=== PATIENT | female | born 1990 | race Two or more races ===

== ENCOUNTER 2023-04-17 20:00 | Emergency (ER) | payer MEDICAID, SELFPAY ==
[2023-04-17 20:04] VITALS: BP 164/98; PULSE 98; RESP 18; TEMP 37; O2SAT 97; BMI 34.8
--- NOTE | 2023-04-17 20:11 | PC.NURSE ---
pt presents to ED because patient states today she started having sinus pressure, headache, and n/v. pt states she threw up 3x today. pt states she also feels like she can't taste or smell anything. pt did take at home covid test today and it was negative.
--- NOTE | 2023-04-17 20:17 | ED.GENADUL1 ---
HPI - General Adult General Chief complaint: Nausea/Vomiting/Diarrhea Stated complaint: HEADACHE, NAUSEA/VOMITING, [id number] TRAVEL Time Seen by Provider: 04/17/23 20:04 Source: patient Mode of arrival: walk-in Limitations: no limitations History of Present Illness HPI narrative: patient is a 32-year-old female presents the emergency department for a three day history of sinus pressure, nasal congestion. She states she has had yellow drainage from the nose. [place] the [place] and was concerned that she may have Covid or the flu. She took a home Covid test that was negative. She has had no objective fevers. She reports three episodes of vomiting today, no diarrhea. She has had no other ear pain, sore throat, she is not concerned for . She has been using [id number]-apoyido ibuprofen without improvement. Related Data Previous Rx's Medication Instructions Recorded vgfxrdruojvetal-knnmnrtjaqjmocf-CW 10 ml PO Q6H PRN cold symptoms 04/17/23 2 mg-30 mg-10 mg/5 mL oral syrup #200 mL (Bromfed DM) methylprednisolone 4 mg tablets in See Rx Instructions .Route 04/17/23 a dose pack (Medrol (Anders)) .COMPLEX #21 ea ondansetron 4 mg disintegrating 4 mg PO Q6H PRN nausea and 04/17/23 tablet vomiting #12 tabs Allergies Allergy/AdvReac Type Severity Reaction Status Date / Time No Known Drug Allergies Allergy Verified 04/17/23 20:07 Review of Systems ROS Constitutional Denies: fever or chills Ears, nose, mouth, and throat Reports: nasal congestion; Denies: throat pain Cardiovascular Denies: chest pain Respiratory Reports: cough; Denies: shortness of breath Gastrointestinal Denies: nausea or vomiting Musculoskeletal Denies: back pain Integumentary/Breast Denies: rash PFSH PFSH Social History Smoking status: Never smoker Exam Narrative Exam Narrative: Gen.: Awake, alert, in no distress Head: Normocephalic, atraumatic ENT: Moist mucous membranes, bilateral tympanic membranes clear, no pharyngeal erythema Respiratory: No respiratory distress, lungs clear bilaterally Cardio: Regular rate and rhythm Extremities: Moves extremities equally Psych: Normal mood and affect Neuro: No focal neuro deficit Skin: Warm, dry, intact Constitutional Vital Signs, click to edit/add: Last Vital Signs Temp 99 F 04/17/23 21:30 Pulse 77 04/17/23 21:30 Resp 18 04/17/23 21:30 BP 148/88 H 04/17/23 21:30 Pulse Ox 94 L 04/17/23 21:30 O2 Del Method Room Air 04/17/23 21:30 Course Vital Signs Vital signs: Vital Signs Temperature 98.6 F 04/17/23 20:04 Pulse Rate 98 H 04/17/23 20:04 Respiratory Rate 18 04/17/23 20:04 Blood Pressure 164/98 H 04/17/23 20:04 Pulse Oximetry 97 04/17/23 20:04 Oxygen Delivery Method Room Air 04/17/23 20:04 Temperature 99 F 04/17/23 21:30 Pulse Rate 77 04/17/23 21:30 Respiratory Rate 18 04/17/23 21:30 Blood Pressure 148/88 H 04/17/23 21:30 Pulse Oximetry 94 L 04/17/23 21:30 Oxygen Delivery Method Room Air 04/17/23 21:30 Medical Decision Making MDM Narrative Medical decision making narrative: patient is negative for Covid and influenza. She'll be treated for sinus symptoms with Medrol Dosepak, Bromfed-DM, Zofran. Follow-up with PCP and return to the Emergency Room if symptoms change or worsen. Medical Records Medical records reviewed: Yes I reviewed the patient's medical records Lab Data Lab results reviewed: Yes I reviewed the patient's lab results Labs: Lab Results 04/17/23 Range/Units 20:34 SARS-CoV-2 (PCR) Negative (NEGATIVE) Influenza Type A Ag Negative Influenza Type B Ag Negative Discharge Plan Discharge Chief Complaint: Nausea/Vomiting/Diarrhea Clinical Impression: Sinus pain, Nausea & vomiting Patient Disposition: Home, Self-Care Time of Disposition Decision: 21:06 Condition: Good Prescriptions / Home Meds: New methylprednisolone [Medrol (Anders)] 4 mg tablets,dose pack See Rx Instructions .ROUTE .COMPLEX Qty: 21 0RF Rx Instructions: Taper as directed zxrvzdyqhbqllcj-bswpljpmc-QV [Bromfed DM] 2-30-10 mg/5 mL syrup 10 ml PO Q6H PRN (Reason: cold symptoms) Qty: 200 0RF ondansetron 4 mg tablet,disintegrating 4 mg PO Q6H PRN (Reason: nausea and vomiting) Qty: 12 0RF Instructions: Acute Nausea and Vomiting (ED), Cold Symptoms (ED) Stand Alone Forms: Portal Instructions Referrals: [facility] [Primary Care Provider] - 1 week Discharge Date/Time: 04/17/23 21:34
[2023-04-17] MEDS: ONDANSETRON PF 4 MG/2 ML VIAL IV (20:44)
[2023-04-17] MEDS: DEXAMETHASONE SOD PHOS 10 MG/ML VIAL IV (20:44)
[2023-04-17] MEDS: KETOROLAC TROMETHAMINE 30 MG/ML VIAL IVP (20:45)
[2023-04-17 20:56] LABS: Influenza Virus A Antigen Negative; Influenza Virus B Antigen Negative; Internal Control Within Normal Limits; SARS-CoV-2 Ag NEGATIVE (NEGATIVE)
[2023-04-17 21:17] VITALS: BP 148/88; PULSE 77; O2SAT 95
[2023-04-17] MEDS: BUTALB/ACETAMINOPHEN/CAFFEINE 50-325-40MG TABLET 1 TAB PO (21:19)
[2023-04-17 21:30] VITALS: BP 148/88; PULSE 77; RESP 18; TEMP 37.2; O2SAT 94
[2023-04-18 15:51] LABS: SARS-CoV-2 NAA NOT DETECTED (NOT DETECTE)
== END 2023-04-17 21:34 | disposition home or self-care (01) ==
PROVIDERS: Physician Assistant; Emergency Provider Internal Medicine
DX: R11.2 Nausea with vomiting, unspecified (principal); J34.89 Other specified disorders of nose and nasal sinuses; Z20.822 Contact with and (suspected) exposure to COVID-19
CPT/HCPCS: 87635; 87804; 87811; 96374; 96375; 99284; J1100

== ENCOUNTER 2023-11-07 09:18 | Outpatient (OUT) | payer MEDICAID, SELFPAY ==
[2023-11-07 12:02] LABS: HCG Quantitative 3223 mIU/mL
== END 2023-11-07 09:19 | disposition home or self-care (01) ==
PROVIDERS: Visit Provider Obstetrics & Gynecology
DX: N92.6 Irregular menstruation, unspecified (principal)
CPT/HCPCS: 36415; 84702

== ENCOUNTER 2023-12-14 08:58 | Outpatient (OUT) | payer MEDICAID, OTHER, SELFPAY ==
--- NOTE | 2023-12-14 09:00 | US_ITS ---
The [address] [address] Patient Name: PRISCILLA BLAND MRN: [id number] date: 1990 Sex: F Assigned Patient Location: [facility] Current Patient Location: [facility] Accession/Order Number: [id number] Exam Date: 12/14/2023 09:01 Report Date: 12/14/2023 09:53 At the request of: HECTOR KWAN Procedure: US OB transvaginal EXAMINATION: US OB transvaginal HISTORY: MISSED MENSES COMPARISON: No relevant comparison available. FINDINGS: Area of anechoic echogenicity identified within the endometrial cavity measuring 3.1 x 1.3 x 2.7 cm with a mean sac diameter of 2.36 with a mean sac diameter of 2.4 cm, 7 weeks 0 days No pole or yolk sac is observed. Cervix: Closed, 4.5 cm The uterus is normal in size, contour and echotexture. The ovaries are normal. US/US OB transvaginal IMPRESSION: Anechoic echogenicity in the endometrial cavity consistent with a gestational sac. No pole or yolk sac. An embryonic favored, since the mean sac diameter is below 25 mm follow-up in 2 weeks is recommended Electronically authenticated by: NADIA DOOLEY Date: 12/14/2023 09:53
--- OUTSIDE RECORDS SUMMARY | 2023-12-14 09:06 | XMS_ITS | CCD ---
Author Organization [facility] CliniSywi Care Team Providers Care Clinical Research Management Associate Name Role Phone RENAY OTOOLE Attending Unavailable SYDNIE, RENAY Admitting Unavailable SYDNIE, RENAY Consulting Unavailable MISC, DR GILBERT Primary Care Unavailable AQUILES, DR YOUNG Admitting Unavailable AQUILES, DR YOUNG Consulting Unavailable REQUEST, NONE LISTED Primary Care Unavaila ble AQUILES, DR YOUNG Attending Unavailable AQUILES, DR YOUNG Procedure Practitioner Unavailab le RENAY OTOOLE Admitting Unavailable RENAY OTOOLE Consulting Unavailable RENAY OTOOLE Attending Unavailable MISC, DR GILBERT Primary Care Unavailable AQUILES, DR YOUNG Admitting Unavailable AQUILES, DR YOUNG Consulting Unavailable REQUEST, DR NONE LISTED Primary Care Unavaila ble AQUILES, DR YOUNG Attending Unavailable WEST, DR NADIA Harrison Consulting Unavailable AQUILES, DR YOUNG Admitting Unavailable REQUEST, NONE LISTED Primary Care Unavaila ble AQUILES, DR YOUNG Attending Unavailable AQUILES, DR YOUNG Consulting Unavailable WEST, DR NADIA Harrison Consulting Unavailable AQUILES, DR YOUNG Admitting Unavailable REQUEST, NONE LISTED Primary Care Unavaila ble AQUILES, DR YOUNG Attending Unavailable AQUILES, DR YOUNG Consulting Unavailable AQUILES, DR YOUNG Admitting Unavailable AQUILES, DR YOUNG Attending Unavailable REQUEST, NONE LISTED Primary Care Unavaila ble RENAY OTOOLE Admitting Unavailable RENAY OTOOLE Attending Unavailable REQUEST, NONE LISTED Primary Care Unavaila ble RENAY OTOOLE Consulting Unavailable AQUILES, DR YOUNG Admitting Unavailable REQUEST, NONE LISTED Primary Care Unavaila ble AQUILES, DR YOUNG Attending Unavailable AQUILES, DR YOUNG Consulting Unavailable RENAY OTOOLE Attending Unavailable RENAY OTOOLE Admitting Unavailable RENAY OTOOLE Consulting Unavailable REQUEST, NONE LISTED Primary Care Unavaila RENAY Baker Attending Unavailable RENAY OTOOLE Admitting Unavailable RENAY OTOOLE Consulting Unavailable REQUEST, NONE LISTED Primary Care Unavaila ble AQUILES, DR YOUNG Attending Unavailable AQUILES, DR YUONG Admitting Unavailable AQUILES, DR YOUNG Consulting Unavailable REQUEST, DR NONE LISTED Primary Care Unavaila ble SYDNIE, RENAY Attending Unavailable SYDNIE, RENAY Admitting Unavailable SYDNIE, RENAY Consulting Unavailable MISC, DR GILBERT Primary Care Unavailable SYDNIE, RENAY Attending Unavailable SYDNIE, RENAY Admitting Unavailable MISC, DR GILBERT Primary Care Unavailable SYDNIE, RENAY Consulting Unavailable SYDNIE, RENAY Attending Unavailable SYDNIE, RENAY Admitting Unavailable REQUEST, DR NONE LISTED Primary Care Unavaila ble MIAH, DR NADIA Harrison Consulting Unavailable SYDNIE, RENAY Consulting Unavailable SYDNIE, RENAY Attending Unavailable SYDNIE, RENAY Admitting Unavailable KRZYSZTOF, DR ANGELO Vaz Consulting Unavailable REQUEST, DR NONE LISTED Primary Care Unavaila ble SYDNIE, RENAY Consulting Unavailable KELLY, NAT Attending Unavailable KELLY, NAT Admitting Unavailable REQUEST, DR NONE LISTED Primary Care Unavaila ble KELLY, NAT Consulting Unavailable SYDNIE, RENAY Admitting Unavailable SYDNIE, RENAY Consulting Unavailable SYDNIE, RENAY Attending Unavailable MISC, DR GILBERT Primary Care Unavailable SYDNIE, RENAY Admitting Unavailable SYDNIE, RENAY Consulting Unavailable SYDNIE, RENAY Attending Unavailable MISC, DR GILBERT Primary Care Unavailable AQUILES, DR YOUNG Admitting Unavailable WEST, DR NADIA Harrison Consulting Unavailable REQUEST, DR NONE LISTED Primary Care Unavaila ble AQUILES, DR YOUNG Attending Unavailable AQUILES, DR YOUNG Consulting Unavailable Renita Canseco Unavailable Kym Masterson Attending Unavailable Kym Masterson Admitting Unavailable HECTOR KWAN Attending Unavailable Problems Active Problems Problem Classification Problem Date Documented Date Episodic/Chronic Cancer of cervix (1 source) Low grade squamous intraepithelial lesion on cytologic smear of cervix (LGSIL); Translations: [LGSIL ON CYTOLOGIC SMEAR OF CERVIX] Onset: 11-11-2021 Episodic Menstrual disorders (5 sources) Secondary amenorrhea; Translations: [SECONDARY AMENORRHEA] Onset: 01-28-2021 Chronic Other complications of ; puerperium affecting management of mother (3 sources) Obesity complicating childbirth; Translations: [OBESITY COMPLICATING CHILDBIRTH] Onset: 07-30-2021 Chronic Other complications of (4 sources) Anemia complicating , unspecified trimester; Translations: [ANEMIA COMP UNS TRIMESTER] Onset: 06-08-2021 Chronic Other nutritional; endocrine; and metabolic disorders (1 source) Obesity, unspecified; Translations: [OBESITY UNSPECIFIED] Onset: 08-08-2021 Chronic Other screening for suspected conditions (not mental disorders or infectious disease) (8 sources) Encounter for screening for malignant neoplasm of cervix; Translations: [Encounter for screening, unspecified] Onset: 04-07-2021 Episodic Residual codes; unclassified (1 source) High risk heterosexual behavior; Translations: [High risk heterosexual behavior] Onset: 03-01-2022 Episodic Unclassified (1 source) CONTACT W/AND (SUSP) EXPOS COVID-19; Translations: [CONTACT W/AND (SUSP) EXPOS COVID-19] Onset: 08-08-2021 Past or Other Problems Problem Classification Problem Date Documented Date Episodic/Chronic Deficiency and other anemia (1 source) Anemia, unspecified; Translations: [ANEMIA UNSPECIFIED] Onset: 06-13-2021 Episodic Diabetes mellitus without complication (4 sources) Other abnormal glucose; Translations: [OTHER ABNORMAL GLUCOSE] Onset: 04-30-2021 Episodic Immunizations and screening for infectious disease (1 source) Contact with and (suspected) exposure to other viral communicable diseases Onset: 07-09-2021 Resolved: 07-09-2021 Episodic OB-related trauma to perineum and vulva (1 source) Other specified trauma to perineum and vulva; Translations: [OTHER SPEC TRAUMA PERINEUM AND VULVA] Onset: 08-08-2021 Episodic Other complications of (1 source) Maternal care for other known or suspected poor growth, third trimester, not applicable or unspecified; Translations: [MAT CARE OTH TX FTL GRTH 3RD TM UNS] Onset: 08-08-2021 Episodic Other complications of (4 sources) Decreased movements, third trimester, not applicable or unspecified; Translations: [DECR MOVEMENTS 3RD TRI NA/UNS] Onset: 07-13-2021 Episodic Other complications of (4 sources) Supervision of other high risk pregnancies, third trimester; Translations: [SUP OTH HIGH RISK 3RD TRI] Onset: 07-11-2021 Episodic Other complications of (4 sources) Other specified related conditions, unspecified trimester; Translations: [OTH SPEC PREG RELATED COND UNS TRI] Onset: 04-20-2021 Episodic Other complications of (4 sources) Supervision of other high risk pregnancies, unspecified trimester; Translations: [SUP OTH HIGH RISK UNS TRI] Onset: 01-26-2021 Episodic Other female genital disorders (1 source) Other specified noninflammatory disorders of vagina; Translations: [OTH SPEC NONINFLAMMATORY D/O VAGINA] Onset: 04-23-2021 Episodic Other and delivery including normal (15 sources) Encounter for routine follow-up; Translations: [Single live ] Onset: 01-28-2021 Episodic Other upper respiratory infections (2 sources) Acute upper respiratory infection, unspecified; Translations: [Acute pharyngitis, unspecified] Onset: 07-09-2021 Resolved: 07-09-2021 Episodic Residual codes; unclassified (1 source) 39 weeks gestation of ; Translations: [39 WEEKS GESTATION OF ] Onset: 08-08-2021 Episodic Residual codes; unclassified (1 source) 36 weeks gestation of ; Translations: [36 WEEKS GESTATION OF ] Onset: 08-02-2021 Episodic Residual codes; unclassified (1 source) 34 weeks gestation of ; Translations: [34 WEEKS GESTATION OF ] Onset: 07-13-2021 Episodic Residual codes; unclassified (1 source) 35 weeks gestation of ; Translations: [35 WEEKS GESTATION OF ] Onset: 08-09-2021 Episodic Residual codes; unclassified (1 source) 33 weeks gestation of ; Translations: [33 WEEKS GESTATION OF ] Onset: 06-28-2021 Episodic Residual codes; unclassified (1 source) Weeks of gestation of not specified; Translations: [WEEKS GESTATION NOT SPEC] Onset: 05-25-2021 Episodic Residual codes; unclassified (1 source) 24 weeks gestation of ; Translations: [24 WEEKS GESTATION OF ] Onset: 05-05-2021 Episodic Residual codes; unclassified (4 sources) 16 weeks gestation of ; Translations: [16 WEEKS GESTATION OF ] Onset: 03-21-2021 Episodic Results Test Name Value Interpretation Reference Range Facility Chlamydia/GC/Trich NAAon Chlamydia Trachomotis, CARLITOS Negative Normal Negative [facility] Comment on above: Performed By: #### C UU #### [address] #### GCCHLAMTRI #### [facility] , Neisseria Gonorrhoeae, CARLITOS Negative Normal Negative [facility] Comment on above: Performed By: #### C UU #### [facility] [address] [place] [address] #### GCCHLAMTRI #### [facility] , Trichomonas CARLITOS Negative Normal Negative [facility] Comment on above: Result Comment: Perf ormed at: =G - [facility] [address] [id number] Supervisor Edging: Cindy Pinzon MD, Phone: [phone] PERFORMED BY: [place] [address] PATHOLOGIST CUSTOMER ACCOUNTS ADVISOR BROOKLYNN PEARCE M.D. Performed By: #### C UU #### [facility] [address] [place] [address] #### GCCHLAMTRI #### [facility] , Urine Cultureon 03-01-2022 Bacteria identified Cx Nom (U) 30,000 colonies/ml mixed bacterial skin contaminants 2 Days PERFORMED BY: [place] [address] PATHOLOGIST CUSTOMER ACCOUNTS ADVISOR BROOKLYNN PEARCE M.D. Normal [facility] Comment on above: Performed By: #### C UU #### [facility] [address] [place] [address] [place] #### GCCHLAMTRI #### [facility] , Pap IG,rfx Aptima HPV all pt hon 11-16-2021 . . Normal [facility] Comment on above: Performed By: #### H IV12 #### [facility] [address] [address] Andriy Stein DIAGNOSIS: Comment Normal [facility] Comment on above: Result Comment: NEGA TIVE FOR INTRAEPITHELIAL LESION OR MALIGNANCY. THIS SPECIMEN WAS RESCREENED PART OF OUR MILITARY SCIENCE TEACHER PROGRAM. Performed By: #### H IV12 #### [facility] [address] [place] [address] Andriy Stein Methodology: Comment Normal [facility] Comment on above: Result Comment: This liquid based ThinPrep(R) pap test was screened with the use of an image guided system. Performed By: #### H IV12 #### [facility] [address] [place] [address] Andriy Stein Note: Comment Normal [facility] Comment on above: Result Comment: The Pap smear is a screening test designed to aid in the detection of premalignant and malignant conditions of the uterine cervix. It is not a diagnostic procedure and should not be used as the sole means of detecting cervical cancer. Both false-positive and false-negative reports do occur. . Performed By: #### H IV12 #### [facility] [address] [place] [address] Andriy Stein Performed by: Comment Normal [facility] Comment on above: Result Comment: Nathalia Dela Cruz, Director Sterile Processing (ASCP) Performed By: #### H IV12 #### [facility] [address] [place] [address] Andriy Stein QC reviewed by: Comment Normal [facility] Comment on above: Result Comment: Hebert Motley, Supervisory Director Sterile Processing (ASCP) Performed By: #### H IV12 #### [facility] [address] [place] [address] Andriy Stein Reflex Criteria: Comment Normal [facility] Comment on above: Result Comment: The HPV DNA reflex criteria were not met with this specimen result therefore, no HPV testing was performed. . Performed By: #### H IV12 #### [facility] [address] [place] [address] Andriy Stein Specimen adequacy: Comment Normal [facility] Comment on above: Result Comment: Sati sfactory for evaluation. Endocervical and/or squamous metaplastic cells (endocervical component) are present. Performed By: #### H IV12 #### [facility] [address] [place] [address] Andriy Stein CBC AUTO DIFFon 07-31-2021 BASO # 0.0 103/ul Normal 0.0-0.1 [facility] Comment on above: Performed By: #### H IV12 #### [facility] [address] [place], [place] [id number] Andriy Sarita Basophils/100 WBC (Bld) 0.2 % Normal 0.2-2.0 [facility] Comment on above: Performed By: #### H IV12 #### [facility] [address] [place], [place] [id number] Andriy Sarita EO # 0.2 103/ul Normal 0.0-0.7 [facility] Comment on above: Performed By: #### H IV12 #### [facility] [address] [place] [address] Andriy Sarita Eosinophils/100 WBC (Bld) 1.4 % Normal 0.9-7.0 [facility] Comment on above: Performed By: #### H IV12 #### [facility] [address] [place] [address] Andriy Sarita Erythrocyte distribution width (RBC) [Ratio] 16.9 % Critically high 11.0-15.0 [facility] Comment on above: Performed By: #### H IV12 #### [facility] [address] [place] [address] Andriy Sarita Hematocrit (Bld) [Volume fraction] 28.9 % Critically low 36.0-48.0 [facility] Comment on above: Performed By: #### H IV12 #### [facility] [address] [place] [address] Andriy Sarita Hemoglobin (Bld) [Mass/Vol] 9.2 g/dL Critically low 12.0-16.0 [facility] Comment on above: Result Comment: NUVIA ENT DELIVERED Performed By: #### H IV12 #### [facility] [address] [place], [place] [id number] Andriy Sarita IG # 0.07 10e3/ul Critically high 0.00-0.03 [facility] Comment on above: Performed By: #### H IV12 #### [facility] [address] [place] [address] Andriy Sarita IG % 0.7 % Critically high 0.0-0.[address] [facility] Comment on above: Performed By: #### H IV12 #### [facility] [address] [place] [address] Andriy Stein LYMPH # 3.2 103/ul Normal 1.2-3.8 [facility] Comment on above: Performed By: #### H IV12 #### [facility] [address] [place] [address] Andriy Stein Lymphocytes/100 WBC (Bld) 29.7 % Normal 20.5-60.0 [facility] Comment on above: Performed By: #### H IV12 #### [facility] [address] [place] [address] Andriy Sarita MANUAL DIFF REQ NO Normal [facility] Comment on above: Performed By: #### H IV12 #### [facility] [address] [place] [address] Andriy Stein MCH (RBC) [Entitic mass] 28.0 pg Normal 26.7-34.0 [facility] Comment on above: Performed By: #### H IV12 #### [facility] [address] [place] [address] Andriy Stein MCHC (RBC) [Mass/Vol] 31.8 g/dL Normal 29.9-35.2 [facility] Comment on above: Performed By: #### H IV12 #### [facility] [address] [place] [address] Andriy Sarita MCV (RBC) [Entitic vol] 87.8 fL Normal 81.0-99.0 [facility] Comment on above: Performed By: #### H IV12 #### [facility] [address] [place], [place] [id number] Andriylogan Rodgersen MONO # 0.9 103/ul Critically high 0.3-0.[address] [facility] Comment on above: Performed By: #### H IV12 #### [facility] [address] [place], [place] [address] Andriy Sarita Monocytes/100 WBC (Bld) 8.3 % Normal 1.7-12.0 [facility] Comment on above: Performed By: #### H IV12 #### [facility] [address] [place], [place] [id number] Andriy Stein NEUT # 6.3 103/ul Normal 1.4-6.5 [facility] Comment on above: Performed By: #### H IV12 #### [facility] [address] [place], [place] [id number] Andriy tSein Neutrophils/100 WBC (Bld) 59.7 % Normal 43.0-75.0 [facility] Comment on above: Performed By: #### H IV12 #### [facility] [address] [place], [place] [id number] Andriy Stein Platelet mean volume (Bld) [Entitic vol] 9.7 fL Normal 9.5-13.5 [facility] Comment on above: Performed By: #### H IV12 #### [facility] [address] [place] [address] Andriy Stein PLT 173 103/ul Normal 150-450 [facility] Comment on above: Performed By: #### H IV12 #### [facility] [address] [place], [place] [address] Andriy Stein RBC 3.29 106/ul Critically low 4.20-5.40 [facility] Comment on above: Performed By: #### H IV12 #### [facility] [address] [place], [place] [address] Andriy Stein WBC 10.6 103/ul Normal 4.0-11.0 [facility] Comment on above: Performed By: #### H IV12 #### [facility] [address] [place], [place] [id number] Andriy Stein ASYMPTOMATIC COVID-19 ANTIGE Non 07-30-2021 EUA Statement SEE BELOW Normal [facility] Comment on above: Result Comment: This test has not been FDA cleared or approved, but has been authorized by the FDA under an Emergency Use Authorization (EUA) for use by authorized laboratories certified under CLIA that meet the requirements to perform moderate or high complexity testing. This test has been authorized only for the detection of proteins from SARS-CoV-2, not for any other viruses or pathogens. The emergency use of this test is authorized for the duration of the declaration that circumstances exist justifying the authorization of emergency use of in vitro diagnostic tests for detection and/or diagnosis of Covid-19 under section 564(b)(1) of the Act, 21 U.S.C. 360bbb-3(b)(1), unless the declaration is terminated or authorization is revoked sooner. Performed By: #### H ANGELA #### [facility] [address] [place] [address] Andriy Stein SARS-CoV-2 (COVID-19) RNA CARLITOS+probe Ql (Unsp spec) Negative Normal NEGATIVE [facility] Comment on above: Result Comment: Nega tive results are presumptive. They do not preclude infection and should not be used as the sole basis for treatment decisions. Additional confirmatory testing by a molecular method should be considered. Performed By: #### H ANGELA #### [facility] [address] [place] [address] Andriy Stein CBC AUTO DIFFon 07-30-2021 BASO # 0.0 103/ul Normal 0.0-0.1 [facility] Comment on above: Performed By: #### C BC ####[facility] [address] [place], [place] [address]Dr. Sunil Conner Basophils/100 WBC (Bld) 0.2 % Normal 0.2-2.0 [facility] Comment on above: Performed By: #### C BC ####[facility] [address] [place], [place] [address]Dr. Sunil Conner EO # 0.1 103/ul Normal 0.0-0.7 [facility] Comment on above: Performed By: #### C BC ####[facility] [address] [place], [place] [address]Dr. Sunil Conner Eosinophils/100 WBC (Bld) 1.0 % Normal 0.9-7.0 [facility] Comment on above: Performed By: #### C BC ####[facility] [address] [place], [place] [address]Dr. Sunil Conner Erythrocyte distribution width (RBC) [Ratio] 17.0 % Critically high 11.0-15.0 [facility] Comment on above: Performed By: #### C BC ####[facility] [address] [address]Dr. Sunil Conner Hematocrit (Bld) [Volume fraction] 37.5 % Normal 36.0-48.0 [facility] Comment on above: Performed By: #### C BC ####[facility] [address] [place], [place] [address]Dr. Sunil Conner Hemoglobin (Bld) [Mass/Vol] 12.3 g/dL Normal 12.0-16.0 [facility] Comment on above: Performed By: #### C BC ####[facility] [address] [place], [place] [address]Dr. Sunil Conner IG # 0.05 10e3/ul Critically high 0.00-0.03 [facility] Comment on above: Performed By: #### C BC ####[facility] [address] [place], [place] [address]Dr. Sunil Conner IG % 0.5 % Normal 0.0-0.5 [facility] Comment on above: Performed By: #### C BC ####[facility] [address] [place], [place] [address]Dr. Sunil Conner LYMPH # 2.8 103/ul Normal 1.2-3.8 [facility] Comment on above: Performed By: #### C BC ####[facility] [address] [place], [place] [address]Dr. Sunil Conner Lymphocytes/100 WBC (Bld) 28.4 % Normal 20.5-60.0 [facility] Comment on above: Performed By: #### C BC ####[facility] [address] [place], [place] [address]Dr. Sunil Ubaldo MANUAL DIFF REQ NO Normal [facility] Comment on above: Performed By: #### C BC ####[facility] [address] [place], [place] [address]Dr. Sunil Ubaldo MCH (RBC) [Entitic mass] 28.5 pg Normal 26.7-34.0 [facility] Comment on above: Performed By: #### C BC ####[facility] [address] [address]Dr. Sunil Conner MCHC (RBC) [Mass/Vol] 32.8 g/dL Normal 29.9-35.2 [facility] Comment on above: Performed By: #### C BC ####[facility] [address] [place], [place] [address]Dr. Sunil Ubaldo MCV (RBC) [Entitic vol] 86.8 fL Normal 81.0-99.0 [facility] Comment on above: Performed By: #### C BC ####[facility] [address] [place], [place] [address]Dr. Sunil Conner MONO # 0.8 103/ul Normal 0.3-0.8 [facility] Comment on above: Performed By: #### C BC ####[facility] [address] [place], [place] [address]Dr. Chelsiebriana Conner Monocytes/100 WBC (Bld) 7.9 % Normal 1.7-12.0 [facility] Comment on above: Performed By: #### C BC ####[facility] [address] [place], [place] [address]Dr. Sunil Ubaldo NEUT # 6.0 103/ul Normal 1.4-6.5 [facility] Comment on above: Performed By: #### C BC ####[facility] [address] [place], [place] [address]Dr. Sunil Conner Neutrophils/100 WBC (Bld) 62.0 % Normal 43.0-75.0 [facility] Comment on above: Performed By: #### C BC ####[facility] [address] [place], [place] [address]Dr. Sunil Conner Platelet mean volume (Bld) [Entitic vol] 10.2 fL Normal 9.5-13.5 [facility] Comment on above: Performed By: #### C BC ####[facility] [address] [place], [place] [address]Dr. Sunil Conner PLT 207 103/ul Normal 150-450 [facility] Comment on above: Performed By: #### C BC ####[facility] [address] [address]Dr. Sunil Conner RBC 4.32 106/ul Normal 4.20-5.40 [facility] Comment on above: Performed By: #### C BC ####[facility] [address] [address]Dr. Sunil Conner WBC 9.7 103/ul Normal 4.0-11.0 [facility] Comment on above: Performed By: #### C BC ####[facility] [address] [place], [place] [address]Dr. Sunil Ubaldo DRUG SCREEN RAPID (URINE)on 07-30-2021 AMP Negative Normal NEGATIVE [facility] Comment on above: Performed By: #### D RUGRPD ####[facility] [address] [place], [place] [address]Dr. Sunil Ubaldo BAR Negative Normal NEGATIVE [facility] Comment on above: Performed By: #### D RUGRPD ####[facility] [address] [place], [place] [address]Dr. Chelsiebriana Conner BUP Negative Normal NEGATIVE [facility] Comment on above: Performed By: #### D RUGRPD ####[facility] [address] [address]Dr. Sunil Conner BZO Negative Normal NEGATIVE [facility] Comment on above: Performed By: #### D RUGRPD ####[facility] [id number] [address]Dr. Sunil Conner TAMICA Negative Normal NEGATIVE [facility] Comment on above: Performed By: #### D RUGRPD ####[facility] [address] [place], [place] [address]Dr. Sunil Conner CUT-OFFS SEE BELOW Normal [facility] Comment on above: Result Comment: AMP (Amphetamine): 500ng/mL, BAR (Barbituates): 200 ng/mL, BZO (Benzodiazepines): 150 ng/mL, BUP (Buprenorphine): 10 ng/mL, TAMICA (Cocaine): 150 ng/mL, mAMP (Methamphetamine): 500 ng/mL, MTD (Methadone): 200 ng/mL, OPI (Opiates): 100 ng/mL, OXY (Oxycodone): 100 ng/mL, PCP (Phencyclidine): 25 ng/mL, PPX (Propoxyphene): 300 ng/mL, THC (Cannabinoids): 50 ng/mL, TCA (Trycyclic Antidepressants): 300 ng/mL Performed By: #### D RUGRPD ####[facility] [address] [place], [place] [address]Dr. [facility] [place] [facility] [place] [facility] CUT HEADER DRUG CLASS TEST SYSTEM CUT-OFF CONCENTRATIONS ARE FOLLOWS: Normal [facility] Comment on above: Performed By: #### D RUGRPD ####[facility] [address] [place], [place] [address]Dr. Sunil [facility] mAMP Negative Normal NEGATIVE [facility] Comment on above: Performed By: #### D RUGRPD ####[facility] [address] [place], [place] [address]Dr. Sunil [facility] MTD Negative Normal NEGATIVE [facility] Comment on above: Performed By: #### D RUGRPD ####[facility] [address] [place], [place] [address]Dr. Sunil [facility] OPI Negative Normal NEGATIVE [facility] Comment on above: Performed By: #### D RUGRPD ####[facility] [address] [place], [place] [address]Dr. Chelsiebriana Conner OXY Negative Normal NEGATIVE [facility] Comment on above: Performed By: #### D RUGRPD ####[facility] [address] [place], [place] [address]Dr. briana [facility] PCP Negative Normal NEGATIVE [facility] Comment on above: Performed By: #### D RUGRPD ####[facility] [address] [place], [place] [address]. [facility] Negative Normal NEGATIVE [facility] Comment on above: Performed By: #### D RUGRPD ####[facility] [address] [place], [place] [address]Ht. Sunil Conner TCA Negative Normal NEGATIVE [facility] Comment on above: Performed By: #### D RUGRPD ####[facility] [address] [place], [place] [address]Qq. Sunil Ubaldo THC Negative Normal NEGATIVE [facility] Comment on above: Performed By: #### D RUGRPD ####[facility] [address] [place], [place] [address]Ex. Sunil Conner TYPE AND SCREENon 07-30-2021 TYPE AND SCREEN Negative Normal [facility] Comment on above: Performed By: #### T NS #### [facility] [address] [address] [address] Sunil Conner US PREG BIOPHY W NON STRESSo n 07-13-2021 US PREG BIOPHY W NON STRESS EXAMINATION: US PREG BIOPHY W NON STRESS HISTORY: Reduced movement COMPARISON: No relevant comparison available. TECHNIQUE: Ultrasound biophysical profile was performed in the radiology department. FINDINGS: BREATHING MOVEMENTS: 2.0 GROSS BODY MOVEMENTS: 2.0 TONE: 2.0 QUALITATIVE AMNIOTIC FLUID VOLUME: 2.0 PRESENTATION: Cephalic HEART RATE: 133.0 bpm H.B./min AMNIOTIC FLUID VOLUME: 15.7 cm cm GESTATIONAL AGE: 36 weeks 6 days CONCLUSION: Total biophysical profile score: 8.0 Electronically authenticated by: NADIA DOOLEY Date: 2021-07-13 10:55 Normal [facility] US PREG GROWTHon 07-11-2021 US PREG GROWTH EXAMINATION: US PREG GROWTH HISTORY: History of complication of , childbirth and/or puerperium COMPARISON: No relevant comparison available. FINDINGS: Heart Rate: 135 Amniotic Fluid Volume: 11.8 cm Number: 1.0 Position: Cephalic presentation, longitudinal lie Maximum Vertical Pocket: 5.9 cm cm 2.2 cm cm 2.5 cm cm 1.3 cm cm BIOMETRY: BPD: 8.5 cm cm; 34 weeks 1 days; HC: 31.4 cmcm; 35 weeks 1 days AC: 32.5 cm cm; 36 weeks 2 days FL: 7.1 cm cm; 36 weeks 1 days; EFW: 6 lbs. 3 oz., 37% FL/AC: 0.405504 FL/BPD: 0.654656 HC/AC: 0.049806 GESTATIONAL AGE: Age by EDC: 36 weeks 4 days FAHEEM by EDC: 08/04/2021 Age by US: 35 weeks 3 days FAHEEM by US: 08/12/2021 IMPRESSION: Normal interval growth Electronically authenticated by: NADIA DOOLEY Date: 2021-07-11 10:28 Normal [facility] COVID Quick Testingon 2021 Result Negative [facility] Other Quick Strepon 07-09-2021 S. pyogenes Org specific cx Ql (Throat) Negative [email or web address] Other Quick Strep [email or web address] Other GROUP B STREP CULTUREon 06-25 S. agalactiae Ag Ql (Unsp spec) Culture Observations: NEGATIVE FOR GROUP B STREPTOCOCCUS. Normal [facility] Comment on above: Performed By: #### G BSCX #### [facility] [address] [place] [address] Dr. Sunil Conner PREG GROWTHon 06-20-2021 PREG GROWTH EXAMINATION: US PREG GROWTH HISTORY: History of complication of , childbirth and/or puerperium COMPARISON: No relevant comparison available. FINDINGS: Heart Rate: 134 Amniotic Fluid Volume: 13.1 cm Number: 1.0 Position: Cephalic presentation, longitudinal lie Maximum Vertical Pocket: 4.8 cm cm 4.0 cm cm 2.4 cm cm 1.8 cm cm BIOMETRY: BPD: 8.1 cm cm; 32 weeks 2 days; HC: 29.7 cmcm; 32 weeks 6 days AC: 29.5 cm cm; 33 weeks 3 days FL: 6.7 cm cm; 34 weeks 1 days; EFW: 4 lbs. 14 oz., 53% FL/AC: 0.444803 FL/BPD: 0.530041 HC/AC: 1.313072 GESTATIONAL AGE: Age by EDC: 33 weeks 4 days FAHEEM by EDC: 08/04/2021 Age by US: 33 weeks 1 day FAHEEM by US: 08/07/2021 IMPRESSION: Normal interval growth Electronically authenticated by: NADIA DOOLEY Date: 2021-06-20 11:46 Normal [facility] CBC AUTO DIFFon 06-08-2021 BASO # 0.0 103/ul Normal 0.0-0.1 [facility] Comment on above: Performed By: #### H IV12 #### [facility] [address] [address] Andriy Sarita Basophils/100 WBC (Bld) 0.5 % Normal 0.2-2.0 [facility] Comment on above: Performed By: #### H IV12 #### [facility] [address] [address] Andriy Sarita EO # 0.1 103/ul Normal 0.0-0.7 [facility] Comment on above: Performed By: #### H IV12 #### [facility] [address] [address] Andriy Sarita Eosinophils/100 WBC (Bld) 1.3 % Normal 0.9-7.0 [facility] Comment on above: Performed By: #### H IV12 #### [facility] [address] [place] [address] Andriy Sarita Erythrocyte distribution width (RBC) [Ratio] 19.8 % Critically high 11.0-15.0 [facility] Comment on above: Performed By: #### H IV12 #### [facility] [address] [place] [address] Andriy Sarita Hematocrit (Bld) [Volume fraction] 34.9 % Critically low 36.0-48.0 [facility] Comment on above: Performed By: #### H IV12 #### [facility] [address] [address] Andriy Sarita Hemoglobin (Bld) [Mass/Vol] 11.1 g/dL Critically low 12.0-16.0 [facility] Comment on above: Performed By: #### H IV12 #### [facility] [address] [address] Andriy Sarita IG # 0.04 10e3/ul Critically high 0.00-0.03 [facility] Comment on above: Performed By: #### H IV12 #### [facility] [address] [place], [place] [id number] Andriy Sarita IG % 0.5 % Normal 0.0-0.5 [facility] Comment on above: Performed By: #### H IV12 #### [facility] [address] [place], [place] [id number] Andriylogan Stein LYMPH # 2.1 103/ul Normal 1.2-3.8 [facility] Comment on above: Performed By: #### H IV12 #### [facility] [address] [place], [place] [id number] Andriy Sarita Lymphocytes/100 WBC (Bld) 24.8 % Normal 20.5-60.0 [facility] Comment on above: Performed By: #### H IV12 #### [facility] [address] [place] [address] Andriy Stein MANUAL DIFF REQ NO Normal [facility] Comment on above: Performed By: #### H IV12 #### [facility] [address] [place], [place] [id number] Andriy Sarita MCH (RBC) [Entitic mass] 27.5 pg Normal 26.7-34.0 [facility] Comment on above: Performed By: #### H IV12 #### [facility] [address] [place], [place] [id number] Andriy Sarita MCHC (RBC) [Mass/Vol] 31.8 g/dL Normal 29.9-35.2 [facility] Comment on above: Performed By: #### H IV12 #### [facility] [address] [place] [address] Andriy Sarita MCV (RBC) [Entitic vol] 86.6 fL Normal 81.0-99.0 [facility] Comment on above: Performed By: #### H IV12 #### [facility] [address] [place], [place] [address] Andriy Sarita MONO # 0.7 103/ul Normal 0.3-0.8 [facility] Comment on above: Performed By: #### H IV12 #### [facility] [address] [place], [place] [address] Andriy Sarita Monocytes/100 WBC (Bld) 8.7 % Normal 1.7-12.0 [facility] Comment on above: Performed By: #### H IV12 #### [facility] [address] [id number] Andriylogan Rodgersen NEUT # 5.4 103/ul Normal 1.4-6.5 [facility] Comment on above: Performed By: #### H IV12 #### [facility] [address] [id number] Andriylogan Rodgersen Neutrophils/100 WBC (Bld) 64.2 % Normal 43.0-75.0 [facility] Comment on above: Performed By: #### H IV12 #### [facility] [address] [id number] Andriylogan Stein Platelet mean volume (Bld) [Entitic vol] 9.9 fL Normal 9.5-13.5 [facility] Comment on above: Performed By: #### H IV12 #### [facility] [address] [id number] Andriy Sarita PLT 232 103/ul Normal 150-450 [facility] Comment on above: Performed By: #### H IV12 #### [facility] [address] [id number] Andriy Sarita RBC 4.03 106/ul Critically low 4.20-5.40 [facility] Comment on above: Performed By: #### H IV12 #### [facility] [address] [id number] Andriy Sarita WBC 8.5 103/ul Normal 4.0-11.0 [facility] Comment on above: Performed By: #### H IV12 #### [facility] [address] [place], [place] [address] Andriy Sarita GTT 3 HR PREGon 04-30-2021 Glucose [Mass/Vol] 85 mg/dL Normal 74-106 [facility] Comment on above: Performed By: #### G TT3P ####[facility] [address] [id number]. Sunil Conner Glucose [Mass/Vol] 188 mg/dL Normal [facility] Comment on above: Performed By: #### G TT3P ####[facility] [address] [address]DrWilson Conner Glucose [Mass/Vol] 133 mg/dL Normal [facility] Comment on above: Performed By: #### G TT3P ####[facility] [address] [id number] Conner Glucose [Mass/Vol] 122 mg/dL Normal [facility] Comment on above: Performed By: #### G TT3P ####[facility] [address] [address]DrWilson Conner CBC AUTO DIFFon 04-28-2021 BASO # 0.0 103/ul Normal 0.0-0.1 [facility] Comment on above: Performed By: #### C BC #### [facility] [address] [address] [address] Sunil Conner Basophils/100 WBC (Bld) 0.3 % Normal 0.2-2.0 [facility] Comment on above: Performed By: #### C BC #### [facility] [address] [place] [address] Dr. Sunil Conner EO # 0.1 103/ul Normal 0.0-0.7 [facility] Comment on above: Performed By: #### C BC #### [facility] [address] [address] [address] Sunil Conner Eosinophils/100 WBC (Bld) 1.2 % Normal 0.9-7.0 [facility] Comment on above: Performed By: #### C BC #### [facility] [address] [address] [address] Sunil Conner Erythrocyte distribution width (RBC) [Ratio] 14.6 % Normal 11.0-15.0 [facility] Comment on above: Performed By: #### C BC #### [facility] [address] [address] [address] Sunil Conner Hematocrit (Bld) [Volume fraction] 31.6 % Critically low 36.0-48.0 [facility] Comment on above: Performed By: #### C BC #### [facility] [address] [address] [address] Sunil Conner Hemoglobin (Bld) [Mass/Vol] 9.9 g/dL Critically low 12.0-16.0 [facility] Comment on above: Performed By: #### C BC #### [facility] [address] [place] [address] Dr. Sunil Conner IG # 0.05 10e3/ul Critically high 0.00-0.03 [facility] Comment on above: Performed By: #### C BC #### [facility] [address] [place] [address] Dr. Sunil Conner IG % 0.5 % Normal 0.0-0.5 [facility] Comment on above: Performed By: #### C BC #### [facility] [address] [place] [address] Dr. Sunil Conner LYMPH # 2.4 103/ul Normal 1.2-3.8 [facility] Comment on above: Performed By: #### C BC #### [facility] [address] [place] [address] Dr. Sunil Conner Lymphocytes/100 WBC (Bld) 25.6 % Normal 20.5-60.0 [facility] Comment on above: Performed By: #### C BC #### [facility] [address] [place] [address] Dr. Sunil Conner MANUAL DIFF REQ NO Normal [facility] Comment on above: Performed By: #### C BC #### [facility] [address] [place] [address] Dr. Sunil Conner MCH (RBC) [Entitic mass] 25.8 pg Critically low 26.7-34.0 [facility] Comment on above: Performed By: #### C BC #### [facility] [address] [place] [address] Dr. Sunil Conner MCHC (RBC) [Mass/Vol] 31.3 g/dL Normal 29.9-35.2 [facility] Comment on above: Performed By: #### C BC #### [facility] [address] [address] [address] Sunil Conner MCV (RBC) [Entitic vol] 82.3 fL Normal 81.0-99.0 [facility] Comment on above: Performed By: #### C BC #### [facility] [address] [address] [address] Sunil Conner MONO # 0.5 103/ul Normal 0.3-0.8 [facility] Comment on above: Performed By: #### C BC #### [facility] [address] [address] [address] Sunil Conner Monocytes/100 WBC (Bld) 5.3 % Normal 1.7-12.0 [facility] Comment on above: Performed By: #### C BC #### [facility] [address] [address] [address] Sunil Conner NEUT # 6.4 103/ul Normal 1.4-6.5 [facility] Comment on above: Performed By: #### C BC #### [facility] [address] [address] [address] Sunil Conner Neutrophils/100 WBC (Bld) 67.1 % Normal 43.0-75.0 [facility] Comment on above: Performed By: #### C BC #### [facility] [address] [address] [address] Sunil Conner Platelet mean volume (Bld) [Entitic vol] 10.3 fL Normal 9.5-13.5 [facility] Comment on above: Performed By: #### C BC #### [facility] [address] [address] [address] Sunil Conner PLT 255 103/ul Normal 150-450 [facility] Comment on above: Performed By: #### C BC #### [facility] [address] [address] [address] Sunil Conner RBC 3.84 106/ul Critically low 4.20-5.40 [facility] Comment on above: Performed By: #### C BC #### [facility] [address] [address] [address] Sunil Conner WBC 9.5 103/ul Normal 4.0-11.0 [facility] Comment on above: Performed By: #### C BC #### [facility] [address] [address] [address] Sunil Conner GLUCOSE - 1HRon 04-28-2021 Glucose [Mass/Vol] 171 mg/dL Critically high 74-106 [facility] Comment on above: Performed By: #### H IV12 #### [facility] [address] [address] Andriy Stein VAGINITIS/VAGINOSIS DNA PROB [place] 04-21-2021 Janeth species Positive Abnormal Negative [facility] Comment on above: Performed By: #### V AGINT #### [facility] [address] [place] [address] Dr. Sunil Conner Gardnerella vaginalis Negative Normal Negative [facility] Comment on above: Performed By: #### V AGINT #### [facility] [address] [place] [address] Dr. Sunil Conner Trichomonas vaginalis Negative Normal Negative [facility] Comment on above: Performed By: #### V AGINT #### [facility] [address] [place] [address] Dr. Sunil Conner US PREG ANATOMY SINGLEon US PREG ANATOMY SINGLE EXAMINATION: US PREG ANATOMY SINGLE HISTORY: screening COMPARISON: No relevant comparison available. TECHNIQUE: Transabdominal sonographic examination was performed for obstetrical and evaluation. FINDINGS: Number: 1 Heart Rate: 154 H.B. /min Amniotic Fluid Volume: Subjectively normal position: Cephalic presentation, variable lie Placental Location: Anterior, grade 0. Placental edge 4.2 cm from the cervical os Cervix Length: 4.4 cm, closed Normal structures: Cerebellum. Choroid plexus. Cisterna magna. Lateral cerebral ventricles. Orbits. Midline falx. Hard palate. 4-chamber heart. RVOT. LVOT. Stomach. Kidneys. Bladder. Umbilical cord insertion into abdomen. 3 vessel cord. Cervical spine. Thoracic spine. Lumbar spine. Sacral spine. Right upper extremity. Left upper extremity. Right lower extremity. Left lower extremity. Suboptimally seen: None. Abnormalities/Other: None BIOMETRY: BPD: 4.7 cm 20 weeks 2 days HC: 18.0 cm 20 weeks 3 days AC: 14.8 cm 20 weeks 0 days FL: 3.4 cm 20 weeks 3 days EFW:12 ounces, 47%; FL/AC: 0.102063 FL/BPD: 0.650124 HC/AC: 1.263466 GESTATIONAL AGE: Age by EDC: 20 weeks 4 days FAHEEM by EDC: 08/04/2021 Age by current US: 20 weeks 2 days FAHEEM by current US: 08/06/2021 IMPRESSION: Normal anatomy scan *Reference: [employer] Practice Guideline for the performance of Obstetric Ultrasound Examinations, March 25, 2007. Electronically authenticated by: NADIA DOOLEY Date: 2021-03-21 16:13 Normal [facility] PAP ACOG PANEL 3: 21 to 29on 02-21-2021 . . Normal [facility] Comment on above: Result Comment: Perf ormed at: WB Performed By: #### H IV12 #### [facility] [address] [id number] Andriy Stein Age Gdln ACOG Testing - Normal [facility] Comment on above: Performed By: #### H IV12 #### [facility] [address] [id number] Andriy Stein Chlamydia, Nuc. Acid Amp Negative Normal Negative [facility] Comment on above: Result Comment: Perf ormed at: =G Performed By: #### H IV12 #### [facility] [address] [id number] Andriy Stein DIAGNOSIS: Comment Abnormal [facility] Comment on above: Result Comment: EPIT HELIAL CELL ABNORMALITY. LOW-GRADE SQUAMOUS INTRAEPITHELIAL LESION (LSIL); MILD DYSPLASIA. Performed at: WB Performed By: #### H IV12 #### [facility] [address] [phone] Andriy Stein Electronically signed by: Comment Normal [facility] Comment on above: Result Comment: Mayela العلي MD, Pathologist Performed at: WB Performed By: #### H IV12 #### [facility] [address] [address] Andriy Stein Gonococcus, Nuc. Acid Amp Negative Normal Negative [facility] Comment on above: Result Comment: Perf ormed at: =G Performed By: #### H IV12 #### [facility] [address] [place] [address] Andriy Stein Methodology: Comment Normal [facility] Comment on above: Result Comment: This liquid based ThinPrep(R) pap test was screened with the use of an image guided system. Performed at: WB Performed By: #### H IV12 #### [facility] [address] [place] [address] Andriy Stein Note: Comment Normal [facility] Comment on above: Result Comment: The Pap smear is a screening test designed to aid in the detection of premalignant and malignant conditions of the uterine cervix. It is not a diagnostic procedure and should not be used as the sole means of detecting cervical cancer. Both false-positive and false-negative reports do occur. . Performed at: WB Performed By: #### H IV12 #### [facility] [address] [place] [address] Andriy Stein Pathologist Provided ICD10 Comment Normal [facility] Comment on above: Result Comment: [id number] Performed at: WB Performed By: #### H IV12 #### [facility] [address] [place] [address] Andriy Stein Performed by: Comment Normal [facility] Comment on above: Result Comment: Funmi Partida, Director Sterile Processing (ASCP) Performed at: WB Performed By: #### H IV12 #### [facility] [address] [place] [address] Andriy Stein Recommendation: Comment Abnormal [facility] Comment on above: Result Comment: Sugg est follow up as clinically appropriate. Performed at: WB Performed By: #### H IV12 #### [facility] [address] [place] [address] Andriy Stein Reflex Criteria: Comment Normal [facility] Comment on above: Result Comment: The HPV DNA reflex criteria were not met with this specimen result therefore, no HPV testing was performed. . Performed at: WB Performed By: #### H IV12 #### [facility] [address] [address] Andriy Stein Specimen adequacy: Comment Normal [facility] Comment on above: Result Comment: Sati sfactory for evaluation. Endocervical and/or squamous metaplastic cells (endocervical component) are present. Performed at: WB Performed By: #### H IV12 #### [facility] [address] [address] Andriy Sarita AFP MATERNAL FOR SPINA BIFID Aon 02-19-2021 AFP MoM 1.15 Normal [facility] Comment on above: Performed By: #### H IV12 #### [facility] [address] [place] [address] Andriy Stein AFP Value 35.0 ng/mL Normal [facility] Comment on above: Performed By: #### H IV12 #### [facility] [address] [place] [address] Andriy Stein AFP, Serum for Spina Bifida Report Normal [facility] Comment on above: Performed By: #### H IV12 #### [facility] [address] [place] [address] Andriy Stein Comment Comment Normal [facility] Comment on above: Result Comment: Jassi Perez, Ph.D., [facility] Director . References: Available Upon Request. . Multiples Of Median Cutoffs For AFP Elevations Beebe 2.5 Black 2.8 IDD 2.0 Twins 4.5 Abbreviation Definitions IDD - Insulin Dep Diabetes OSBR - Open Spina Bifida Risk . For further inquiries contact [facility] at [phone]. Performed By: #### H IV12 #### [facility] [address] [place], [place] [id number] Andriy Rodgersen Ina Age Collection Date 16.0 weeks Normal [facility] Comment on above: Performed By: #### H IV12 #### [facility] [address] [place], [place] [id number] Andriy Stein Gestat, Age Based on Ultrasound Normal [facility] Comment on above: Result Comment: 16.0 on 02/17/2021 Recalculations are not recommended when gestational dating by LMP and ultrasound are within 10 days. Performed By: #### H IV12 #### [facility] [address] [place] [address] Andriy Stein Insulin Dep Diabetes No Normal [facility] Comment on above: Performed By: #### H IV12 #### [facility] [address] [place] [address] Andriy Sarita Interpretation Comment Normal [facility] Comment on above: Result Comment: Inte rpretation: Screen Negative . This result is screen negative for OSB. The AFP MoM calculated is based on the gestational age provided. MS-AFP can identify up to 80% of open neural tube defects. Closed neural tube defects and some open defects may not be detected by this test. This test does not screen for Down Syndrome or Trisomy 18. If screening for Down Syndrome or Trisomy 18 is desired, contact [employer] to discuss available options. The [employer] recommends amniocentesis be offered to women age 35 and older. Performed By: #### H IV12 #### [facility] [address] [place] [address] Andriy Stein [age] Normal [facility] Comment on above: Performed By: #### H IV12 #### [facility] [address] [place] [address] Andriy Stein Multiple Gestation No Normal [facility] Comment on above: Performed By: #### H IV12 #### [facility] [address] [place] [address] Andriy Stein OSBR Risk 1 [place] [address] [facility] Comment on above: Performed By: #### H IV12 #### [facility] [address] [place] [address] Andriy Stein PDF . Normal [facility] Comment on above: Performed By: #### H IV12 #### [facility] [address] [place] [address] Andriy Rodgersen Race Normal [facility] Comment on above: Performed By: #### H IV12 #### [facility] [address] [place], [place] [address] Andriy Stein Test Results: Negative Normal [facility] Comment on above: Performed By: #### H IV12 #### [facility] [address] [place], [place] [address] Andriy Stein HEMOGLOBINOPATHY FRACTIONATI ON CASCADEon 02-07-2021 HGB A 97.3 % Normal 96.4-98.8 [facility] Comment on above: Performed By: #### H GBCAS ####[facility] [address] [place] [address]Andriy Stein HGB A2 2.7 % Normal 1.8-3.2 [facility] Comment on above: Performed By: #### H GBCAS ####[facility] [address] [place], [place] [address]Gerken Sarita HGB F 0.0 % Normal 0.0-2.0 [facility] Comment on above: Performed By: #### H GBCAS ####[facility] [address] [place] [address]Andriy Stein HGB S 0.0 % Normal 0.0 [facility] Comment on above: Performed By: #### H GBCAS ####[facility] [address] [place] [id number] Sarita Interpretation: Comment Normal [facility] Comment on above: Result Comment: Norm al hemoglobin present; no hemoglobin variant or thalassemia observed. Performed By: #### H GBCAS ####[facility] [address] [place], [place] [address]Gerken Sarita VARICELLA IGG ABon 1 Varicella Zoster IgG 406 index Normal Immune >165 [facility] Comment on above: Result Comment: Nega tive <135 Equivocal 135 - 165 Positive >165 A positive result generally indicates exposure to the pathogen or administration of specific immunoglobulins, but it is not indication of active infection or stage of disease. Performed By: #### V ARCEL ####[facility] [address] [place] [address] Sarita HEP B SURFACE ANTIGEN SCREEN on 02-06-2021 HBsAg Screen Negative Normal Negative [facility] Comment on above: Performed By: #### H BSANS #### [facility] [address] [place] [address] Andriy Stein HEPATITIS C ANTIBODYon 02-06 Hep C Virus Ab <0.1 Normal 0.0-0.9 [facility] Comment on above: Result Comment: Nega tive: < 0.8 Indeterminate: 0.8 - 0.9 Positive: > 0.9 . The CDC recommends that a positive HCV antibody result be followed up with a HCV Nucleic Acid Amplification test (820960). Performed By: #### H CV ####[facility] [address] [place] [address]Andriy Stein HIV 1 AND 2 WITH REFLEXon HIV Screen 4th Generation wRfx Non-Reactive Normal Non Reactive [facility] Comment on above: Performed By: #### H IV12 #### [facility] [address] [place] [address] Andriy Stein RPR QUANTon 02-06-2021 Rapid Plasma Reagin, Quant Non-Reactive Normal NonRea<1:1 [facility] Comment on above: Performed By: #### H IV12 #### [facility] [address] [place] [address] Andriy Stein RUBELLA AB IGGon 02-06-2021 Rubella Antibodies, IgG 1.72 index Normal Immune >0.99 [facility] Comment on above: Result Comment: Non- immune <0.90 Equivocal 0.90 - 0.99 Immune >0.99 Performed By: #### H IV12 #### [facility] [address] [place] [address] Andriy Stein CBC AUTO DIFFon 02-05-2021 BASO # 0.0 103/ul Normal 0.0-0.1 [facility] Comment on above: Performed By: #### H BSANS #### [facility] [address] [place] [address] Andriy Stein Basophils/100 WBC (Bld) 0.3 % Normal 0.2-2.0 [facility] Comment on above: Performed By: #### H BSANS #### [facility] [address] [place] [address] Andriy Sarita EO # 0.2 103/ul Normal 0.0-0.7 [facility] Comment on above: Performed By: #### H BSANS #### [facility] [address] [place] [address] Andriy Sarita Eosinophils/100 WBC (Bld) 1.7 % Normal 0.9-7.0 [facility] Comment on above: Performed By: #### H BSANS #### [facility] [address] [place] [address] Andriy Sarita Erythrocyte distribution width (RBC) [Ratio] 14.0 % Normal 11.0-15.0 [facility] Comment on above: Performed By: #### H BSANS #### [facility] [address] [place] [address] Andriy Sarita Hematocrit (Bld) [Volume fraction] 34.3 % Critically low 36.0-48.0 [facility] Comment on above: Performed By: #### H BSANS #### [facility] [address] [place] [address] Andriy Sarita Hemoglobin (Bld) [Mass/Vol] 11.0 g/dL Critically low 12.0-16.0 [facility] Comment on above: Performed By: #### H BSANS #### [facility] [address] [place] [address] Andriy Sarita IG # 0.02 10e3/ul Normal 0.00-0.03 [facility] Comment on above: Performed By: #### H BSANS #### [facility] [address] [place] [address] Andriy Sarita IG % 0.2 % Normal 0.0-0.5 [facility] Comment on above: Performed By: #### H BSANS #### [facility] [address] [place] [address] Andriy Sarita LYMPH # 3.4 103/ul Normal 1.2-3.8 [facility] Comment on above: Performed By: #### H BSANS #### [facility] [address] [place], [place] [id number] Andriy Sarita Lymphocytes/100 WBC (Bld) 38.7 % Normal 20.5-60.0 [facility] Comment on above: Performed By: #### H BSANS #### [facility] [address] [place], [place] [id number] Andriy Sarita MANUAL DIFF REQ NO Normal [facility] Comment on above: Performed By: #### H BSANS #### [facility] [address] [place] [address] Andriy Sarita MCH (RBC) [Entitic mass] 27.2 pg Normal 26.7-34.0 [facility] Comment on above: Performed By: #### H BSANS #### [facility] [address] [place] [address] Andriy Sarita MCHC (RBC) [Mass/Vol] 32.1 g/dL Normal 29.9-35.2 [facility] Comment on above: Performed By: #### H BSANS #### [facility] [address] [place], [place] [id number] Andriy Sarita MCV (RBC) [Entitic vol] 84.9 fL Normal 81.0-99.0 [facility] Comment on above: Performed By: #### H BSANS #### [facility] [address] [place], [place] [address] Andriy Sarita MONO # 0.7 103/ul Normal 0.3-0.8 [facility] Comment on above: Performed By: #### H BSANS #### [facility] [address] [place] [address] Andriy Sarita Monocytes/100 WBC (Bld) 8.3 % Normal 1.7-12.0 [facility] Comment on above: Performed By: #### H BSANS #### [facility] [address] [place] [address] Andriy Sarita NEUT # 4.4 103/ul Normal 1.4-6.5 [facility] Comment on above: Performed By: #### H ANGELA #### [facility] [address] [place], [place] [address] Andriylogan Stein Neutrophils/100 WBC (Bld) 50.8 % Normal 43.0-75.0 [facility] Comment on above: Performed By: #### H ANGELA #### [facility] [address] [place], [place] [address] Andriylogan Stein Platelet mean volume (Bld) [Entitic vol] 9.8 fL Normal 9.5-13.5 [facility] Comment on above: Performed By: #### H ANGELA #### [facility] [address] [place], [place] [address] Andriy Sarita PLT 248 103/ul Normal 150-450 [facility] Comment on above: Performed By: #### H ANGELA #### [facility] [address] [place] [id number] Andriy Sarita RBC 4.04 106/ul Critically low 4.20-5.[address] [facility] Comment on above: Performed By: #### H ANGELA #### [facility] [address] [place], [place] [address] Andriy Sarita WBC 8.7 103/ul Normal 4.0-11.0 [facility] Comment on above: Performed By: #### H ANGELA #### [facility] [address] [place], [place] [address] Andriy Stein GLYCOHEMOGLOBIN A1Con 2020 ADA RECOMMENDATION ADA THERAPEUTIC TARGET 6.0 - 7.0 ACTION SUGGESTED > 7.0 Normal [facility] Comment on above: Performed By: #### A 1C ####[facility] [address] [place], [place] [address]Lhbgrn Karen Glucose [Mass/Vol] 111 mg/dL Normal [facility] Comment on above: Performed By: #### A 1C ####[facility] [address] [place], [place] [address]Jxxins Karen HbA1c (Bld) [Mass fraction] 5.5 % Normal <=6.0 [facility] Comment on above: Performed By: #### A 1C ####[facility] [address] [place], [place] [address]Btgbpy Sarita GTT 3 HR PREGon 02-05-2021 Glucose [Mass/Vol] 79 mg/dL Normal 74-106 [facility] Comment on above: Performed By: #### H BSANS #### [facility] [address] [place], [place] [address] Andriy Sariat Glucose [Mass/Vol] 117 mg/dL Normal [facility] Comment on above: Performed By: #### H BSANS #### [facility] [address] [place] [address] Andriy Sarita Glucose [Mass/Vol] 93 mg/dL Normal [facility] Comment on above: Performed By: #### H BSANS #### [facility] [address] [place] [address] Andriy Sarita Glucose [Mass/Vol] 46 mg/dL Critically low [facility] Comment on above: Performed By: #### H BSANS #### [facility] [address] [place] [address] Andriy Sarita TYPE AND SCREENon 02-05-2021 TYPE AND SCREEN Antibody Screen NEGATIVE Blood Bank Notes completed by [email or web address] ABO Rh Typing A Rh Positive Blood Bank Notes completed by [email or web address] Rosenberg [facility] Comment on above: Performed By: #### T NS #### [facility] [address] [place], [place] [address] Andriy Sarita CULTURE URINEon 01-28-2021 CULTURE URINE Culture Observations: MODERATE GROWTH OF MIXED GENITAL HUBER. NO POTENTIAL PATHOGENS SEEN. Normal [facility] Comment on above: Performed By: #### U RCX ####[facility] [address] [place], [place] [address]Guucuu Sarita UA RANDOM W/MICROSCOPICon BACTERIA SMALL Abnormal NONE SEEN [facility] Comment on above: Performed By: #### H BSANS #### [facility] [address] [place], [place] [address] Andriy Sarita Bilirubin Ql (U) Negative Normal NEGATIVE [facility] Comment on above: Performed By: #### H BSANS #### [facility] [address] [place] [address] Andriy Sarita CAST NONE SEEN Normal NONE SEEN [facility] Comment on above: Performed By: #### H BSANS #### [facility] [address] [place] [address] Andriy Sarita Clarity (U) CLEAR Normal CLEAR [facility] Comment on above: Performed By: #### H BSANS #### [facility] [address] [place] [address] Andriy Sarita Color (U) YELLOW Normal YELLOW [facility] Comment on above: Performed By: #### H BSANS #### [facility] [address] [place] [address] Andriy Sarita Crystals LM Nom (Urine sed) NONE SEEN Normal NONE SEEN [facility] Comment on above: Performed By: #### H BSANS #### [facility] [address] [place] [address] Andriy Sarita Epithelial cells LM Ql (Urine sed) FEW Abnormal NONE SEEN /RARE [facility] Comment on above: Performed By: #### H BSANS #### [facility] [address] [place] [address] Andriy Sarita Glucose Ql (U) Negative Normal NEGATIVE [facility] Comment on above: Performed By: #### H BSANS #### [facility] [address] [place] [address] Andriy Sarita Hemoglobin Ql (U) Negative Normal NEGATIVE [facility] [place] [facility] Comment on above: Performed By: #### H BSANS #### [facility] [address] [place] [address] Andriy Sarita Ketones Ql (U) TRACE Abnormal NEGATIVE [facility] Comment on above: Performed By: #### H BSANS #### [facility] [address] [place] [address] Andriy Sarita LEUKOCYTES Negative Normal NEGATIVE [facility] Comment on above: Performed By: #### H BSANS #### [facility] [address] [place] [address] Andriy Sarita MUCOUS SMALL Abnormal NONE SEEN [facility] Comment on above: Performed By: #### H BSANS #### [facility] [address] [place] [address] Andriy Sarita Nitrite Ql (U) Negative Normal NEGATIVE [facility] Comment on above: Performed By: #### H BSANS #### [facility] [address] [place] [address] Andriy Sarita pH (U) 7.0 [pH] Normal 5-9 [facility] Comment on above: Performed By: #### H BSANS #### [facility] [address] [place] [address] Andriy Sarita RBC 0-2 Normal 0-2 [facility] Comment on above: Performed By: #### H BSANS #### [facility] [address] [place] [address] Andriy Stein SPEC GRAVITY 1.020 Normal 1.005-<=1.[address] [facility] Comment on above: Performed By: #### H BSANS #### [facility] [address] [place] [address] Andriy Sarita UA PROTEIN Negative Normal NEGATIVE/ TRACE [facility] Comment on above: Performed By: #### H BSANS #### [facility] [address] [place] [address] Andriy Stein Urobilinogen Qn (U) 0.2 {Juanito'U}/dL Normal 0.2 - 1. 0 [facility] Comment on above: Performed By: #### H BSANS #### [facility] [address] [place] [address] Andriy Sarita WBC NONE SEEN Normal NONE SEEN [facility] Comment on above: Performed By: #### H BSANS #### [facility] [address] [place] [address] Andriy Stein BUNon 01-26-2021 Urea nitrogen [Mass/Vol] 5.0 mg/dL Critically low 7.0-17.0 [facility] Comment on above: Performed By: #### T SH, LDH, BUN, URIC, ALT, AST ####[facility] [address] [place] [address]Gerken Sarita CBC AUTO DIFFon 01-26-2021 BASO # 0.0 103/ul Normal 0.0-0.1 [facility] Comment on above: Performed By: #### C BC #### [facility] [address] [place] [id number] Andriy Stein Basophils/100 WBC (Bld) 0.4 % Normal 0.2-2.0 [facility] Comment on above: Performed By: #### C BC #### [facility] [address] [place] [id number] Andriy Stein EO # 0.1 103/ul Normal 0.0-0.7 [facility] Comment on above: Performed By: #### C BC #### [facility] [address] [place] [address] Andriy Rodgersen Eosinophils/100 WBC (Bld) 1.1 % Normal 0.9-7.0 [facility] Comment on above: Performed By: #### C BC #### [facility] [address] [place] [address] Andriy Stein Erythrocyte distribution width (RBC) [Ratio] 14.6 % Normal 11.0-15.0 [facility] Comment on above: Performed By: #### C BC #### [facility] [address] [place] [address] Andriy Stein Hematocrit (Bld) [Volume fraction] 34.7 % Critically low 36.0-48.0 [facility] Comment on above: Performed By: #### C BC #### [facility] [address] [place] [address] Andriy Sarita Hemoglobin (Bld) [Mass/Vol] 11.1 g/dL Critically low 12.0-16.0 [facility] Comment on above: Performed By: #### C BC #### [facility] [address] [place] [id number] Andriy Sarita IG # 0.04 10e3/ul Critically high 0.00-0.03 [facility] [place] [facility] Comment on above: Performed By: #### C BC #### [facility] [address] [place] [address] Andriy Sarita IG % 0.5 % Normal 0.0-0.5 [facility] Comment on above: Performed By: #### C BC #### [facility] [address] [place] [address] Andriylogan Rodgersen LYMPH # 2.1 103/ul Normal 1.2-3.8 [facility] Comment on above: Performed By: #### C BC #### [facility] [address] [place] [address] Andriy Sarita Lymphocytes/100 WBC (Bld) 25.5 % Normal 20.5-60.0 [facility] Comment on above: Performed By: #### C BC #### [facility] [address] [place] [address] Andriylogan Stein MANUAL DIFF REQ NO Normal [facility] Comment on above: Performed By: #### C BC #### [facility] [address] [place] [address] Andriylogan Rodgersen MCH (RBC) [Entitic mass] 27.2 pg Normal 26.7-34.0 [facility] Comment on above: Performed By: #### C BC #### [facility] [address] [place] [address] Andriylogan Stein MCHC (RBC) [Mass/Vol] 32.0 g/dL Normal 29.9-35.2 [facility] Comment on above: Performed By: #### C BC #### [facility] [address] [place] [address] Andriylogan Stein MCV (RBC) [Entitic vol] 85.0 fL Normal 81.0-99.0 [facility] Comment on above: Performed By: #### C BC #### [facility] [address] [place] [address] Andriy Sarita MONO # 0.6 103/ul Normal 0.3-0.8 [facility] Comment on above: Performed By: #### C BC #### [facility] [address] [place], [place] [id number] Andriy Sarita Monocytes/100 WBC (Bld) 7.1 % Normal 1.7-12.0 [facility] Comment on above: Performed By: #### C BC #### [facility] [address] [place] [id number] Andriy Rodgersen NEUT # 5.3 103/ul Normal 1.4-6.5 [facility] Comment on above: Performed By: #### C BC #### [facility] [address] [place] [id number] Andriy Sarita Neutrophils/100 WBC (Bld) 65.4 % Normal 43.0-75.0 [facility] Comment on above: Performed By: #### C BC #### [facility] [address] [place] [id number] Andriylogan Stein Platelet mean volume (Bld) [Entitic vol] 9.5 fL Normal 9.5-13.5 [facility] Comment on above: Performed By: #### C BC #### [facility] [address] [place] [address] Andriy Sarita PLT 258 103/ul Normal 150-450 [facility] Comment on above: Performed By: #### C BC #### [facility] [address] [place], [place] [address] Andriy Sarita RBC 4.08 106/ul Critically low 4.20-5.[address] [facility] Comment on above: Performed By: #### C BC #### [facility] [address] [place], [place] [address] Andriy Sarita WBC 8.1 103/ul Normal 4.0-11.0 [facility] Comment on above: Performed By: #### C BC #### [facility] [address] [place] [address] Andriy Sarita CREATININE CLEARon 1 CREA CLEARANCE 69.46 ml/min Critically low 75.00-115.[address] [facility] Comment on above: Performed By: #### H IV12 #### [facility] [address] [place], [place] [address] Andriy Sarita CREA, 24 HR UR 579.12 mg/24 hr Critically low 800.00-1 ,800. 00 [facility] Comment on above: Performed By: #### H IV12 #### [facility] [address] [place], [place] [address] Andriy Stein Creatinine [Mass/Vol] 0.53 mg/dL Normal 0.52-1.04 [facility] Comment on above: Performed By: #### H IV12 #### [facility] [address] [place], [place] [address] Andriy Stein URINE CREAT 30.48 mg/dL Normal 20.00-300.00 [facility] Comment on above: Performed By: #### H IV12 #### [facility] [address] [place], [place] [address] Andriy Stein GLUCOSE - 1HRon 01-26-2021 Glucose [Mass/Vol] 150 mg/dL Critically high 74-106 [facility] Comment on above: Performed By: #### G LU1HR ####[facility] [address] [place], [place] [address]Andriy Rodgersen LDHon 01-26-2021 LDH 125 U/L Normal 122-222 [facility] Comment on above: Performed By: #### T SH, LDH, BUN, URIC, ALT, AST ####[facility] [address] [place], [place] [address]Andriy Stein PROTEIN 24HR URINEon 021 T PROT, 24 HR UR 32.3 mg/24 hr Critically low 42.0-225.0 [facility] Comment on above: Performed By: #### P ROT24U ####[facility] [address] [place] [id number] Sarita UR PROT 1.7 mg/dL Normal <=12.0 [facility] Comment on above: Performed By: #### P ROT24U ####[facility] [address] [place] [id number] Sarita UR TOT VOL 1900 ml/24 HR Normal [facility] Comment on above: Performed By: #### P ROT24U ####[facility] [address] [place], [place] [address]Andriy Rodgersen Performed By: #### H IV12 #### [facility] [address] [place], [place] [address] Andriy Stein SGOTon 01-26-2021 AST [Catalytic activity/Vol] 17 U/L Normal 14-36 [facility] Comment on above: Performed By: #### T SH, LDH, BUN, URIC, ALT, AST ####[facility] [address] [place] [address]Andriy Stein SGPTon 01-26-2021 ALT [Catalytic activity/Vol] 16 U/L Normal 9-52 [facility] Comment on above: Performed By: #### T SH, LDH, BUN, URIC, ALT, AST ####[facility] [address] [place] [address]Andriy Stein TSHon 01-26-2021 TSH 0.220 uIU/mL Critically low 0.470-4.680 [facility] [place] [facility] Comment on above: Performed By: #### T SH, LDH, BUN, URIC, ALT, AST ####[facility] [address] TSH RANGE SEE BELOW Normal [facility] Comment on above: Result Comment: <0.3 4 UIU/ml HYPERTHYROID 0.34-5.60 UIU/ml EUTHYROID >5.60 UIU/ml HYPOTHYROID Performed By: #### T SH, LDH, BUN, URIC, ALT, AST ####[facility] [address] Sarita URIC ACID SERUMon 01-26-2021 Urate [Mass/Vol] 3.6 mg/dL Normal 2.5-6.2 [facility] Comment on above: Performed By: #### T SH, LDH, BUN, URIC, ALT, AST ####[facility] [address] [place] [address]Andriy Stein US PREG TVon 01-24-2021 US PREG TV EXAMINATION: US PREG TV HISTORY: Secondary physiologic amenorrhea COMPARISON: No relevant comparison available. FINDINGS: GESTATIONAL SAC: Present and normal appearing. POLE: Present and normal appearing. YOLK SAC: Present. CARDIAC: Present. UTERUS: Normal size and appearance. OVARIES: Right: Corpus luteum cyst Left: Normal. CERVIX: 4.5 cm in length and closed. CUL-DE-SAC: Normal. OTHER: None. AGE BY LMP: 8 weeks, 6 days FAHEEM BY LMP: 08/30/2021 AGE BY US CRL: 12 weeks, 4 days FAHEEM BY US CRL: 08/04/2021 IMPRESSION: 1. Single live intrauterine . Electronically authenticated by: ANGELO BLANKENSHIP Date: 2021-01-24 10:12 Normal [facility] ABO AND RH TYPEon 01-19-2021 ABO and Rh group Nom (Bld) ABO Rh Typing A Rh Positive Normal [facility] Comment on above: Performed By: #### A MADDY ####[facility] [address] [place], [place] [address]JhznbxAndriy Stein PREG QUANT HCGon 01-19-2021 HCG QUANT 33844 mIU/mL Normal [facility] Comment on above: Result Comment: Prev iously reported as: 3 On 01/19/2021 11:21 By CV2 Performed By: #### H IV12 #### [facility] [address] [place], [place] [address] Andriy Stein HCG RANGE SEE BELOW Normal [facility] Comment on above: Result Comment: 5-50 0-1 WEEK 40-300 1-2 WEEKS 100-1,000 2-3 WEEKS 500-6,000 3-4 WEEKS 5,000-200,000 1-2 MONTHS 10,000-100,000 2-3 MONTHS 3,000-50,000 2ND TRIMESTER 1,000-50,000 3RD TRIMESTER Performed By: #### H IV12 #### [facility] [address] [place], [place] [address] Andriy Stein Vital Signs Date Time Vital Sign Value Performing Clinician Facility 07-09-2021 13:35-0500 Body temperature 96.4 [degF] Renita Canseco Other [email or web address] Other 07-09-2021 13:35-0500 SaO2% (BldA) [Mass fraction] 98 % Renita Canseco Other [email or web address] Other 02-19-2021 04:06-0400 Body weight 83.0088 kg RENAY OTOOLE [facility] Comment on above: Performed By: #### HIV12 #### [facility] [address] [place] [address] Andriy Stein Encounters Encounter Date Encounter Type Care Provider Facility Start: 2023 End: 2023 ambulatory HECTOR KWAN Not Available Start: 03-01-2022 End: 03-01-2022 ambulatory Kym Masterson Facility:[facility] Start: 11-08-2021 End: 11-08-[address] HECTOR KWAN Facility:[facility] Start: 08-01-2021 End: 08-01-[address] HECTOR KWAN Facility:[facility] Start: 07-30-2021 End: 07-31-2021 Evaluation and management of inpatient DR HECTOR KWAN Facility:[facility] Start: 07-13-2021 End: 07-13-[address] HECTOR KWAN Facility:[facility] Start: 07-11-2021 End: 07-12-[address] NADIA DOOLEY Facility:[facility] Start: 07-09-2021 End: 07-09-2021 ambulatory Renita Canseco Other [email or web address] Other Start: 07-09-2021 Office outpatient visit 15 minutes Renita Ajith [facility] Start: 07-06-2021 End: 07-06-[address] HECTOR KWAN Facility:[facility] Start: 06-20-2021 End: 06-21-[address] NADIA DOOLEY Facility:[facility] Start: 06-08-2021 End: 06-09-[address] HECTOR KWAN Facility:[facility] Start: 05-04-2021 End: 05-11-2021 ambulatory RENAY OTOOLE Facility:[facility] Start: 04-30-2021 End: 05-01-2021 ambulatory RENAY OTOOLE Facility:[facility] Start: 04-28-2021 End: 04-29-2021 ambulatory RENAY OTOOLE Facility:[facility] Start: 04-20-2021 End: 04-20-2021 ambulatory RENAY OTOOLE Facility:[facility] Start: 04-07-2021 End: 04-08-2021 ambulatory NAT MENDOZA Facility:[facility] Start: 03-21-2021 End: 03-22-2021 ambulatory RENAY OTOOLE Facility:[facility] Start: 02-17-2021 End: 02-18-2021 ambulatory RENAY OTOOLE Facility:[facility] Start: 02-05-2021 End: 02-06-2021 ambulatory RENAY OTOOLE Facility:[facility] Start: 01-28-2021 End: 01-28-2021 ambulatory RENAY OTOOLE Facility:[facility] Start: 01-26-2021 End: 01-27-2021 ambulatory RENAY OTOOLE Facility:[facility] Start: 01-24-2021 End: 01-25-2021 ambulatory RENAY OTOOLE Facility:[facility] Start: 01-19-2021 End: 01-20-2021 ambulatory RENAY OTOOLE Facility:[facility] Procedures Date Procedure Procedure Detail Performing Clinician Start: 07-30-2021 Delivery of Products of Conception, External Approach RENAY OTOOLE Start: 07-30-2021 Drainage of Amniotic Fluid, Therapeutic from Products of Conception, Via Natural or Artificial Opening RENAY OTOOLE Start: 07-30-2021 Introduction of Othe r Hormone into Peripheral Vein, Percutaneous Approach RENAY OTOOLE Start: 07-30-2021 Repair Perineum Skin , External Approach RENAY OTOOLE Payers Date Payer Category Payer Medicaid [id number] 2022 Private Health Insurance [id number] 2022 Self-pay 1990 Unknown [id number] 2.16.84 0.1.998177.3.579.2.593 1991 Unknown [id number] 2.16.84 0.1.069396.3.579.2.593 1991 Unknown [id number] 2.16.84 0.1.686637.3.579.2.593 1991 Unknown [id number] 2.16.84 0.1.452024.3.579.2.593 1991 Unknown [id number] 2.16.84 0.1.371067.3.579.2.593 1991 Unknown [id number] 2.16.84 0.1.529200.3.579.2.593 1991 Unknown [id number] 2.16.84 0.1.519213.3.579.2.593 1991 Unknown [id number] 2.16.84 0.1.531686.3.579.2.593 1991 Unknown [id number] 2.16.84 0.1.771344.3.579.2.593 1991 Unknown [id number] 2.16.84 0.1.214468.3.579.2.593 1991 Unknown [id number] 2.16.84 0.1.342227.3.579.2.593 1991 Unknown [id number] 2.16.84 0.1.108201.3.579.2.593 1991 Unknown [id number] 2.16.84 0.1.016022.3.579.2.593 1991 Unknown [id number] 2.16.84 0.1.760946.3.579.2.593 1991 Unknown [id number] 2.16.84 0.1.268470.3.579.2.593 1991 Unknown [id number] 2.16.84 0.1.570046.3.579.2.593 1991 Unknown [id number] 2.16.84 0.1.751141.3.579.2.593 1991 Unknown [id number] 2.16.84 0.1.783599.3.579.2.593 1991 Unknown [id number] 2.16.84 0.1.272739.3.579.2.593 1991 Unknown [id number] 2.16.84 0.1.523584.3.579.2.593 1991 Unknown [id number] 2.16.84 0.1.570700.3.579.2.1259 1959 Unknown [id number] 1959 Unknown [id number] Unknown [id number] 2.16.8 40.1.288511.3.579.2.531 Social History Date Type Detail Facility Sex Assigned At [email or web address] Other Evaluation note 07-09-2021 Note Date & Type Note Facility 07-09-2021 Evaluation note Encounter Date Diagnosis Assessment Notes Jun, Contact with and (suspected) exposure to other viral communicable diseases (ICD-10 - Z20.828) Advised patient that COVID antigen test was negative today. Rapid Strep test negative. Advised patient that will tx as viral URI. Supportive care as directed, increase fluids and rest, Tylenol as directed, OTC cough/cold remedies as directed on packaging that are safe in , cool mist humidifier, throat lozenges. Discussed infection control practices such as good hand washing and mask wearing. Patient to follow up with PCP if sx persist or worsen despite treatment. Immediate eval for SOB, difficulty, chest pain, fevers that do not break with antipyretic or any other concerning symptoms as reviewed on patient education handout. Patient verbalizes understanding and is agreeable to treatment plan. Patient left in stable condition Jun, Viral URI (ICD-10 - J06.9) Jun, Sore throat (ICD-10 - J02.9) Jun, Other Additional time spent conducting pre-visit phone call, screening for symptoms, instructions on social distancing, application and removal of PPE, and cleaning of examination room, equipment and supplies was preformed. Patient education given for testing methodology and results. Patient care instructions given in writting by [facility] document [email or web address] Other Summary Purpose Family History No Family History Records FoundNo Family History Records FoundNo Family History Records Found Advance Directives No Advanced Directives Records FoundNo Advanced Directives Records FoundNo Advanced Directives Records Found Additional Source Comments INFORMATION SOURCE (unrecogn ized section and content) DATE CREATED AUTHOR 11/17/2021 [facility] DATE CREATED AUTHOR AUTHOR'S ORGANIZ ATION 03/24/2022 [facility] DATE CREATED AUTHOR AUTHOR'S ORGANIZ ATION 07/05/2023 [facility] EPIC REASON FOR VISIT (unrecogniz ed section and content) #15 BLUE CHEVY, SORE THROAT, FEVER X 2 WEEKS FOR RECORDS PERTAINING TO PATIENTS WHO ARE OR HAVE BEEN ENROLLED IN A CHEMICAL DEPENDENCY/SUBSTANCEABUSE PROGRAM, SOME INFORMATION MAY BE OMITTED. This clinical summary was aggregated from multiple sources. Caution should be exercised in using it in the provision of clinical care. This summary normalizes information from multiple sources, and as a consequence, information in this document may materially change the coding, format and clinical context of patient data. In addition, data may be omitted in some cases. CLINICAL DECISIONS SHOULD BE BASED ON THE PRIMARY CLINICAL RECORDS. [facility] [employer] [facility]. provides no warranty or guarantee of the accuracy or completeness of information in this document.
== END 2023-12-14 08:59 | disposition home or self-care (01) ==
LOC: NOMS 08:58
PROVIDERS: Visit Provider Obstetrics & Gynecology
DX: N92.6 Irregular menstruation, unspecified (principal)
CPT/HCPCS: 76817

== ENCOUNTER 2024-01-02 12:34 | Outpatient (OUT) | payer OTHER, SELFPAY ==
[2024-01-02 12:58] LABS: Basophils Percent Auto 0.5 % (0.2-2.0); Eosinophils Absolute Auto 0.1 10^3/uL (0.0-0.7); Eosinophils Percent Auto 1.3 % (0.9-7.0); Hematocrit 31.5 % (36.0-48.0); Hemoglobin 9.8 g/dL (12.0-16.0); Immature Granulocytes Abs Auto 0.01 10^3/uL (0.00-0.03); Immature Granulocytes Pct Auto 0.1 % (0.0-0.5); Lymphocytes Absolute Auto 2.6 10^3/uL (1.2-3.8); Lymphocytes Percent Auto 33.8 % (20.5-60.0); Mean Corpuscular HGB Conc 31.1 g/dL (29.9-35.2); Mean Corpuscular Hemoglobin 27.1 pg (26.7-34.0); Mean Platelet Volume 8.9 fL (9.5-13.5); Monocytes Absolute Auto 0.6 10^3/uL (0.3-0.8); Monocytes Percent Auto 8.4 % (1.7-12.0); Neutrophils Absolute Auto 4.3 10^3/uL (1.4-6.5); Neutrophils Percent Auto 55.9 % (43.0-75.0); Platelet Count 348 10^3/uL (150-450); Red Blood Count 3.62 10^6/uL (4.20-5.40); Red Cell Distribution Width 14.1 % (11.0-15.0); White Blood Count 7.7 10^3/uL (4.0-11.0)
[2024-01-02 13:21] LABS: HCG Quantitative 11 mIU/mL
== END 2024-01-02 12:35 | disposition home or self-care (01) ==
LOC: LAB 12:36
PROVIDERS: Visit Provider Obstetrics & Gynecology
DX: D50.9 Iron deficiency anemia, unspecified (principal); Z51.89 Encounter for other specified aftercare; O03.9 Complete or unspecified spontaneous abortion without complication
CPT/HCPCS: 36415; 84702; 85025

== ENCOUNTER 2024-01-07 10:20 | Outpatient (OUT) | payer OTHER, SELFPAY ==
[2024-01-07 12:18] LABS: HCG Quantitative 5 mIU/mL
== END 2024-01-07 10:21 | disposition home or self-care (01) ==
LOC: LAB 10:21
PROVIDERS: Visit Provider Obstetrics & Gynecology
DX: O03.9 Complete or unspecified spontaneous abortion without complication (principal); D50.9 Iron deficiency anemia, unspecified; Z51.89 Encounter for other specified aftercare
CPT/HCPCS: 36415; 84702

== ENCOUNTER 2024-11-11 11:06 | Outpatient (OUT) | payer OTHER, SELFPAY ==
--- OUTSIDE RECORDS SUMMARY | 2024-11-11 11:14 | XMS_ITS | CCD ---
Author Organization [facility] CliniSyny Care Team Providers Care Vise Hand Name Role Phone RENAY OTOOLE Attending Unavailable SYDNIE, RENAY Admitting Unavailable RENAY OTOOLE Consulting Unavailable MISC, DR GILBERT Primary Care Unavailable JENNY, DR YOUNG Admitting Unavailable JENNY, DR YOUNG Consulting Unavailable REQUEST, NONE LISTED Primary Care Unavaila ble JENNY, DR YOUNG Attending Unavailable JENNY, DR YOUNG Procedure Practitioner Unavailab le RENAY OTOOLE Admitting Unavailable SYDNIE, RENAY Consulting Unavailable RENAY OTOOLE Attending Unavailable MISC, DR GILBERT Primary Care Unavailable JENNY, DR YOUNG Admitting Unavailable JENNY, DR YOUNG Consulting Unavailable REQUEST, DR NONE LISTED Primary Care Unavaila ble JENNY, DR YOUNG Attending Unavailable WEST, DR NADIA Harrison Consulting Unavailable JENNY, DR YOUNG Admitting Unavailable REQUEST, NONE LISTED Primary Care Unavaila ble JENNY, DR YOUNG Attending Unavailable JENNY, DR YOUNG Consulting Unavailable WEST, DR NADIA Harrison Consulting Unavailable JENNY, DR YOUNG Admitting Unavailable REQUEST, NONE LISTED Primary Care Unavaila ble JENNY, DR YOUNG Attending Unavailable JENNY, DR YOUNG Consulting Unavailable JENNY, DR YOUNG Admitting Unavailable JENNY, DR YOUNG Attending Unavailable REQUEST, NONE LISTED Primary Care Unavaila ble RENAY OTOOLE Admitting Unavailable RENAY OTOOLE Attending Unavailable REQUEST, NONE LISTED Primary Care Unavaila ble RENAY OTOOLE Consulting Unavailable JENNY, DR YOUNG Admitting Unavailable REQUEST, NONE LISTED Primary Care Unavaila ble JENNY, DR YOUNG Attending Unavailable JENNY, DR YOUNG Consulting Unavailable RENAY OTOOLE Attending Unavailable RENAY OTOOLE Admitting Unavailable RENAY OTOOLE Consulting Unavailable REQUEST, NONE LISTED Primary Care Unavaila RENAY Baker Attending Unavailable RENAY OTOOLE Admitting Unavailable RENAY OTOOLE Consulting Unavailable REQUEST, NONE LISTED Primary Care Unavaila ble JENNY, DR YOUNG Attending Unavailable JENNY, DR YOUNG Admitting Unavailable JENNY, DR YOUNG Consulting Unavailable REQUEST, DR NONE [...] Unavailable MISC, DR GILBERT Primary Care Unavailable JENNY, DR YOUNG Admitting Unavailable MIAH, DR NADIA Harrison Consulting Unavailable REQUEST, DR NONE LISTED Primary Care Unavaila ble JENNY, DR YOUNG Attending Unavailable JENNY, DR YOUNG Consulting Unavailable Renita Canseco Unavailable Kym Masterson Attending Unavailable Kym Masterson Admitting Unavailable NO PCP, NO PCP Primary Care Unavailable NIKITA ROMERO Attending Unavailable RENITA HICKMAN Attending Unavailable RENITA HICKMAN Referring Unavailable NO PCP, NO PCP Primary Care Unavailable NO PCP, NO PCP Primary Care Unavailable JONATHAN PHILIP Attending UnavailCODY Flores Admitting Unavailable HECTOR ALVARADO Attending Unavailable Unavailable Primary Care Provider Unavailchanel gimenez Medications Current Medications Medication Drug Class(es) Dates Sig (Normalized) Sig (Original) Xmersaxe-Qxv-Ix-FA ( 1 + IRON PO) (1 source) Njrsbzqy-Ikm-No-FA ( 1 + IRON PO) Take by mouth Active Problems Active Problems Problem Classification Problem Date Documented Date Episodic/Chronic Abdominal pain (1 source) Abdominal pain Onset: 12-20-2023 Episodic Cancer of cervix (1 source) Low grade squamous intraepithelial lesion on cytologic smear of cervix (LGSIL); Translations: [LGSIL ON CYTOLOGIC SMEAR OF CERVIX] Onset: 11-11-2021 Episodic Hemorrhage during ; abruptio placenta; placenta previa (1 source) Antepartum hemorrhage, unspecified, unspecified trimester; Translations: [Antepartum hemorrhage, unspecified, unspecified trimester] Onset: 12-19-2023 Episodic Menstrual disorders (6 sources) Secondary amenorrhea; Translations: [Missed period] Onset: 01-28-2021 Chronic Other complications of ; puerperium affecting management of mother (3 sources) Obesity complicating childbirth; Translations: [OBESITY COMPLICATING CHILDBIRTH] Onset: 07-30-2021 Chronic Other complications of (4 sources) Anemia complicating , unspecified trimester; Translations: [ANEMIA COMP UNS TRIMESTER] Onset: 06-08-2021 Chronic Other female genital disorders (1 source) Vaginal bleeding Onset: 12-19-2023 Chronic Other nutritional; endocrine; and metabolic disorders (1 source) Obesity, unspecified; Translations: [OBESITY UNSPECIFIED] Onset: 08-08-2021 Chronic Other and delivery including normal (17 sources) Encounter for routine follow-up; Translations: [Single live ] Onset: 01-28-2021 Episodic Other screening for suspected conditions (not mental disorders or infectious disease) (8 sources) Encounter for screening for malignant neoplasm of cervix; Translations: [Encounter for screening, unspecified] Onset: 04-07-2021 Episodic Residual codes; unclassified (1 source) High risk heterosexual behavior; Translations: [High risk heterosexual behavior] Onset: 03-01-2022 Episodic Spondylosis; intervertebral disc disorders; other back problems (1 source) Backache Onset: 12-19-2023 Episodic Spontaneous (1 source) Complete or unspecified spontaneous without complication; Translations: [Complete or unspecified spontaneous without complication] Onset: 12-20-2023 Episodic Unclassified (1 source) CONTACT W/AND (SUSP) EXPOS COVID-19; Translations: [CONTACT W/AND (SUSP) EXPOS COVID-19] Onset: 08-08-2021 Unclassified (1 source) Vaginal Bleeding - 7wks preg Onset: 12-19-2023 Past or Other Problems Problem Classification Problem [...] applicable or unspecified; Translations: [MAT CARE OTH GA FTL GRTH 3RD TM UNS] Onset: 08-08-2021 [...] NONINFLAMMATORY D/O VAGINA] Onset: 04-23-2021 Episodic Other upper respiratory infections (2 sources) [...] Test Name Value Interpretation Reference Range Facility HCG ( test) Ql (U)o n 10-16-2024 Interpretation and review of laboratory results Abnormal [facility] Preg Test, Ur [facility] 025 US OB TRANSVAGINAL EXAM: US OB TRANSVAGINAL HISTORY: Dating. A1. LMP 07/29/2024. COMPARISON: None available. TECHNIQUE: Two-dimensional transabdominal grayscale and color Doppler ultrasound imaging of the pelvis was performed. Transvaginal ultrasound was performed. FINDINGS: The uterus demonstrates a normal homogeneous echotexture. The cervical os is closed. The right ovary measures 4.0 x 2.8 x 3.0 cm and demonstrates a normal echotexture. There is normal color Doppler flow. The left ovary measures 3.0 x 2.1 x 2.4 cm and demonstrates a normal echotexture. There is normal color Doppler flow. A small amount of fluid is present within the cul-de-sac. There is a single, live intrauterine gestation identified with a heart rate of 179 beats per minute and a crown-rump length measurement of 3.9 cm, correlating to a gestational age of 10 weeks 6 days (+/- 7 days). There is no subchorionic hemorrhage visualized. A yolk sac is visualized. IMPRESSION: 1. Single, live intrauterine gestation 11 weeks, 2 days by LMP. Today's ultrasound measurements correlate with a gestational age of 10 weeks 6 days (+/- 7 days). FAHEEM by today's ultrasound is May 08, 2025. 2. Small amount of cul-de-sac fluid. Interpreted by: Electronically signed by EKATERINA FRENCH II, MD, PHD at 16-Oct-2024 11:21:08 PM [facility] Normal Not Available Comment on above: Order Comment: US OB TRANSVAGINAL No LMP recorded. US Pelvis transvaginalon EXAM: US OB TRANSVAGINAL HISTORY: Dating. A1. LMP 07/29/2024. COMPARISON: None available. TECHNIQUE: Two-dimensional transabdominal grayscale and color Doppler ultrasound imaging of the pelvis was performed. Transvaginal ultrasound was performed. FINDINGS: The uterus demonstrates a normal homogeneous echotexture. The cervical os is closed. The right ovary measures 4.0 x 2.8 x 3.0 cm and demonstrates a normal echotexture. There is normal color Doppler flow. The left ovary measures 3.0 x 2.1 x 2.4 cm and demonstrates a normal echotexture. There is normal color Doppler flow. A small amount of fluid is present within the cul-de-sac. There is a single, live intrauterine gestation identified with a heart rate of 179 beats per minute and a crown-rump length measurement of 3.9 cm, correlating to a gestational age of 10 weeks 6 days (+/- 7 days). There is no subchorionic hemorrhage visualized. A yolk sac is visualized. IMPRESSION: 1. Single, live intrauterine gestation 11 weeks, 2 days by LMP. Today's ultrasound measurements correlate with a gestational age of 10 weeks 6 days (+/- 7 days). FAHEEM by today's ultrasound is May 08, 2025. 2. Small amount of cul-de-sac fluid. Interpreted by: Electronically signed by EKATERINA FRENCH II, MD, PHD at 16-Oct-2024 11:21:08 PM [facility]AGING Ekaterina French MD - 10/16/2024 EXAM: US OB TRANSVAGINAL HISTORY: Dating. A1. LMP 07/29/2024. COMPARISON: None available. TECHNIQUE: Two-dimensional transabdominal grayscale and color Doppler ultrasound imaging of the pelvis was performed. Transvaginal ultrasound was performed. FINDINGS: The uterus demonstrates a normal homogeneous echotexture. The cervical os is closed. The right ovary measures 4.0 x 2.8 x 3.0 cm and demonstrates a normal echotexture. There is normal color Doppler flow. The left ovary measures 3.0 x 2.1 x 2.4 cm and demonstrates a normal echotexture. There is normal color Doppler flow. A small amount of fluid is present within the cul-de-sac. There is a single, live intrauterine gestation identified with a heart rate of 179 beats per minute and a crown-rump length measurement of 3.9 cm, correlating to a gestational age of 10 weeks 6 days (+/- 7 days). There is no subchorionic hemorrhage visualized. A yolk sac is visualized. IMPRESSION: 1. Single, live intrauterine gestation 11 weeks, 2 days by LMP. Today's ultrasound measurements correlate with a gestational age of 10 weeks 6 days (+/- 7 days). FAHEEM by today's ultrasound is May 08, 2025. 2. Small amount of cul-de-sac fluid. Interpreted by: Electronically signed by EKATERINA FRENCH II, MD, PHD at 16-Oct-2024 11:21:08 PM [facility] Radiology Study observation (narrative) [facility] US Pelvis transvaginalOrdere d By: Ekaterina French on 10-16-2024 [facility] [employer] Work Phone: Urinalysis macro (dipstick) panel (U)on 10-16-2024 Bilirubin, UA Negative Negative - 4(70) +++ mg/dL [facility] Blood, UA Negative Negative - 50 Celestino/mcL [facility] Clarity, UA Clear [facility] [employer] re Color, UA Yellow [facility] e Glucose, UA Negative Negative - 2000(110) ++++ mg/dL [facility] Interpretation and review of laboratory results Abnormal [facility] Ketones, UA Positive Negative - 160(16) ++++ mg/dL [facility] Comment on above: 80mg/dL Leukocytes, UA Positive Negative - 500+++ Dodie/mcL [facility] Comment on above: small Nitrite, UA Negative Negative - Positive [facility] pH, UA 5.5 5 - 9 [facility] e Protein, UA Positive Negative - 2000(20) ++++ mg/dL [facility] Comment on above: 30mg/dL Spec Grav, UA 1.03 1 - 1.03 [facility] Urobilinogen, UA 0.2 0.2 - 12 mg/dL [facility] e HGB AND HCTon 12-21-2023 Hematocrit (Bld) [Volume fraction] 28.7 % Low 35-47 [facility] Comment on above: Performed By: #### H H #### [facility] ([id number]) [address] [place] [address] 24947 Hemoglobin (Bld) [Mass/Vol] 9.8 g/dL Low 11.7-15.5 [facility] Comment on above: Performed By: #### H H #### [facility] ([id number]) [address] [place] [address] 05500 Surgical Pathologyon [address] [facility] Comment on above: Result Comment: [facility] [address] [place] [address] Surgical Pathology Consultation Patient Name:SYDNIE MOSQUEDAB:1990 (Age: 33)Gender:FTaken:12/21/2023eported:12/28/2023hysician(s):Randy Greene MD ([phone])Copy To: Rec. #:[id number]: #[id number] Final Pathologic Diagnosis Products of conception; removal: Products of conception (gestational sac with immature chorionic villi) and fragments of decidua with acute inflammation and necrosis. Report Electronically Signed Out wak/12/28/2023Pradeep Brannon MD Interpretation performed at [facility], [address] [place] [address] , [place] [address], License number: [id number]. Clinical History Spontaneous , miscarriage. Gross Description Received in formalin labeled MOSQUEDA Karyotype: No Aggregate measurement: 5.2 x 3.8 x 2.0 cm. Placenta: 3.4 x 2.8 x 1.5 cm Decidua/Clot: 1.8 x 1.0 x 0.5 cm Gestational Sac: Yes, intact Tissue: No Molar Tissue: No Cassettes: A-C placenta (3, ss, [id number],m5) DM Received fresh-no site on container. POC for routine surgical path. Per Ariana Avendaño dm/12/21/2023GR Specimen(s) Received Products of conception Fee Codes(s): 1; 52294 US PREG LESS THAN 14 WKS WIT H TRANSVAGINALon 12-21-2023 US PREG LESS THAN 14 WKS WITH TRANSVAGINAL US PREG LESS THAN 14 WKS WITH TRANSVAGINAL Indication: Incomplete . Vaginal bleeding. Clinical concern for retained products of conception. TECHNIQUE: Transabdominal imaging was first performed to exclude extra adnexal process. Transvaginal imaging was then also performed for better visualization of endometrial contents and adnexa. Comparison is made to prior exam dated 12/19/2023. FINDINGS: Uterus measures 11.2 cm x 6.1 cm x 6.2 cm. Endometrial echo complex appears heterogeneous and measures up to 2.6. No color-flow is demonstrated within the endometrial contents. Apparent irregular gestational sac within the endometrial canal on the prior exam is not demonstrated today. No gestational sac is visualized therefore no pole, yolk sac, heart rate, amniotic fluid, gestational sac shape, or placenta is demonstrated. Right paraovarian cysts similar to prior exam measuring up to about 2 cm. Tiny amount of free fluid adjacent to right ovary. The right ovary measures 4.7 cm at 3.7 cm 2 cm. Left ovary measures 3.1 cm x 3.1 cm x 2.2 cm. Color flow is demonstrated within each ovary. IMPRESSION: 1. Interval passage of apparent irregular gestational sac since prior exam. No normal intrauterine gestation demonstrated. 2. Endometrium is heterogeneous and thickened without definite color flow to suggest retained products of conception. 1 Finalized by Isamar Monroy MD on 12/21/2023 8:46 AM Normal [facility] BASIC METABOLIC PANLon 12-19 Anion gap [Moles/Vol] 6 mmol/L Normal 5-15 [facility] Comment on above: Performed By: #### B CHETAN NORWOOD, #### [facility] ([id number]) [address] [place] [address] 11820 Calcium [Mass/Vol] 8.9 mg/dL Normal 8.5-10.5 [facility] Comment on above: Performed By: #### B CHETAN NORWOOD, #### [facility] ([id number]) [address] [place] [address] 82447 Chloride [Moles/Vol] 105 mmol/L Normal 98-109 [facility] Comment on above: Performed By: #### B CHETAN NORWOOD, #### [facility] ([id number]) [address] [place] [address] 10482 CO2 [Moles/Vol] 24 mmol/L Normal 22-32 [facility] Comment on above: Performed By: #### B CHETAN NORWOOD, #### [facility] ([id number]) [address] [place] [address] 60636 Creatinine [Mass/Vol] 0.74 mg/dL Normal 0.40-1.00 [facility] Comment on above: Result Comment: METH OD TRACEABLE TO IDMS STANDARD Performed By: #### B CHETAN NORWOOD, #### [facility] ([id number]) [address] [place] [address] 79154 eGFR (CKD-EPI) NON-RACE DEPENDENT >90 Normal >59 [facility] Comment on above: Result Comment: Reported eGFR is based on the CKD-EPI 2020 equation that does not use a race coefficient. Performed By: #### B CHETAN NORWOOD, #### [facility] ([id number]) [address] [place] [address] 33221 Glucose [Mass/Vol] 149 mg/dL High 65-99 [facility] Comment on above: Performed By: #### B MP, CBCA, #### [facility] ([id number]) [address] [place] [address] 50441 Potassium [Moles/Vol] 3.6 mmol/L Normal 3.5-5.0 [facility] Comment on above: Performed By: #### B MP, CBCA, #### [facility] ([id number]) [address] [place] [address] 94811 Sodium [Moles/Vol] 135 mmol/L Normal 134-146 [facility] Comment on above: Performed By: #### B MP, CBCA, #### [facility] ([id number]) [address] [place] [address] 60041 Urea nitrogen [Mass/Vol] 10 mg/dL Normal 5-23 [facility] Comment on above: Performed By: #### B MP, CBCA, #### [facility] ([id number]) [address] [place] [address] 29654 CBC AND AUTO DIFFon 12-20-19 24 ABSOLUTE BASOPHIL 0.0 X10E9/L Normal 0.0-0.2 [facility] Comment on above: Performed By: #### B MP, CBCA, #### [facility] ([id number]) [address] [place] [address] 77472 ABSOLUTE NEUTROPHIL 4.9 X10E9/L Normal 1.5-6.6 [facility] Comment on above: Performed By: #### B MP, CBCA, #### [facility] ([id number]) [address] [place] [address] 55865 Basophils/100 WBC (Bld) 0.4 % Normal [facility] Comment on above: Performed By: #### B CUCO, CBCA, #### [facility] ([id number]) [address] [place] [address] 65288 Eosinophils (Bld) [#/Vol] 0.3 10*3/uL Normal 0.0-0.4 [facility] Comment on above: Performed By: #### B CUCO, CBCA, #### [facility] ([id number]) [address] [place] [address] 65897 Eosinophils/100 WBC (Bld) 2.3 % Normal [facility] Comment on above: Performed By: #### B CUCO, CBCA, #### [facility] ([id number]) [address] [place] [address] 92671 Erythrocyte distribution width (RBC) [Ratio] 13.8 % Normal 11.5-15.0 [facility] Comment on above: Performed By: #### B CUCO, CBCA, #### [facility] ([id number]) [address] [place] [address] 64130 Hematocrit (Bld) [Volume fraction] 34.8 % Low 35-47 [facility] Comment on above: Performed By: #### B CUCO, CBCA, #### [facility] ([id number]) [address] [place] [address] 21028 Hemoglobin (Bld) [Mass/Vol] 11.5 g/dL Low 11.7-15.5 [facility] Comment on above: Performed By: #### B CUCO, CBCA, #### [facility] ([id number]) [address] [place] [address] 74738 Lymphocytes (Bld) [#/Vol] 4.6 10*3/uL High 1.0-3.5 [facility] Comment on above: Performed By: #### B CUCO CBCA, #### [facility] ([id number]) [address] [place] [address] 11903 Lymphocytes/100 WBC (Bld) 41.7 % Normal [facility] Comment on above: Performed By: #### B CUCO, CBCA, #### [facility] ([id number]) [address] [place] [address] 34309 MCH (RBC) [Entitic mass] 27.8 pg Normal 27-34 [facility] Comment on above: Performed By: #### B CUCO CBCA, #### [facility] ([id number]) [address] [place] [address] 59779 MCHC (RBC) [Mass/Vol] 33.0 g/dL Normal 32-36 [facility] Comment on above: Performed By: #### B CUCO CBCA, #### [facility] ([id number]) [address] [place] [address] 28400 MCV (RBC) [Entitic vol] 84 fL Normal 80-100 [facility] Comment on above: Performed By: #### B CUCO CBCA, #### [facility] ([id number]) [address] [place] [address] 78296 Monocytes (Bld) [#/Vol] 1.2 10*3/uL High 0-0.9 [facility] Comment on above: Performed By: #### B CUCO, CBCA, #### [facility] ([id number]) [address] [place] [address] 65442 Monocytes/100 WBC (Bld) 11.1 % Normal [facility] Comment on above: Performed By: #### B CUCO, CBCA, #### [facility] ([id number]) [address] [place] [address] 93170 Neutrophils/100 WBC (Bld) 44.5 % Normal [facility] Comment on above: Performed By: #### B MP, CBCA, #### [facility] ([id number]) [address] [place] [address] 51048 Platelet mean volume (Bld) [Entitic vol] 7.6 fL Normal 7-12 [facility] Comment on above: Performed By: #### B MP, CBCA, #### [facility] ([id number]) [address] [place] [address] 35170 Platelets (Bld) [#/Vol] 323 10*3/uL Normal 150-450 [facility] Comment on above: Performed By: #### B MP, CBCA, #### [facility] ([id number]) [address] [place] [address] 85077 RBC COUNT 4.12 X10E12/L Normal 3.80-5.20 [facility] Comment on above: Performed By: #### B MP, CBCA, #### [facility] ([id number]) [address] [place] [address] 85857 WBC (Bld) [#/Vol] 11.0 10*3/uL Normal 4.0-11.0 [facility] Comment on above: Performed By: #### B MP, CBCA, #### [facility] ([id number]) [address] [place] [address] 97795 HCG.beta subunit IA 3rd IS Q non 12-20-2023 HCG.beta subunit Qn 5361 m[IU]/mL Normal [facility] Comment on above: Result Comment: NEW REFERENCE RANGE WEEKS (SINCE LMP) MIU/mL 3 WEEKS 5 - 50 4 WEEKS 5 - 426 5 WEEKS 18 - 7,340 6 WEEKS 1,080 - 56,500 7-8 WEEKS 7,650 - 229,000 9-12 WEEKS 25,700 - 288,000 13-16 WEEKS 13,300 - 254,000 17-24 WEEKS 4,060 - 165,400 25-40 WEEKS 3,640 - 117,000 MALES AND NON- FEMALES - <5 MIU/mL This test has been FDA approved for use in only. Elevated levels are not necessarily diagnostic for trophoblastic or nontrophoblastic neoplasms. Performed By: #### B MP, CBCA, 82947-5 #### [facility] ([id number]) [address] [place] [address] 90138 HCG ( test) Ql (U)o n 12-19-2023 Beta HCG ( test) Ql (U) Positive Abnormal NEG [facility] Comment on above: Performed By: #### 2 106-3 #### [facility] ([id number]) [address] [place] [address] 39068 HCG.beta subunit IA 3rd IS Q non 12-19-2023 HCG.beta subunit Qn 6620 m[IU]/mL Normal [facility] Comment on above: Result Comment: NEW REFERENCE RANGE WEEKS (SINCE LMP) MIU/mL 3 WEEKS 5 - 50 4 WEEKS 5 - 426 5 WEEKS 18 - 7,340 6 WEEKS 1,080 - 56,500 7-8 WEEKS 7,650 - 229,000 9-12 WEEKS 25,700 - 288,000 13-16 WEEKS 13,300 - 254,000 17-24 WEEKS 4,060 - 165,400 25-40 WEEKS 3,640 - 117,000 MALES AND NON- FEMALES - <5 MIU/mL This test has been FDA approved for use in only. Elevated levels are not necessarily diagnostic for trophoblastic or nontrophoblastic neoplasms. Performed By: #### 2 0415-6 #### [facility] ([id number]) [address] [place] [address] 73443 URN MACROSCOPIC NURon 2023 BILIRUBIN NIKITA Small Abnormal NEG [facility] Comment on above: Performed By: #### N UM #### [facility] ([id number]) [address] [place] [address] 69777 BLOOD/HGB NIKITA Large Abnormal NEG [facility] Comment on above: Performed By: #### N UM #### [facility] ([id number]) [address] [place] [address] [place] [address] GLUCOSE NIKITA Negative Normal NEG [facility] Comment on above: Performed By: #### N UM #### [facility] ([id number]) [address] [place] [address] [place] [address] KETONES NIKITA Trace Abnormal NEG [facility] Comment on above: Performed By: #### N UM #### [facility] ([id number]) [address] [place] [address] [place] [address] LEUKOCYTE ESTERASE NIKITA Negative Normal NEG [facility] Comment on above: Performed By: #### N UM #### [facility] ([id number]) [address] [place] [address] [place] [address] NITRITE NIKITA Negative Normal NEG [facility] Comment on above: Performed By: #### N UM #### [facility] ([id number]) [address] [place] [address] 12950 PH NIKITA 6.0 Normal 5.0-8.5 [facility] Comment on above: Performed By: #### N UM #### [facility] ([id number]) [address] [place] [address], [place] [address] PROTEIN NIKITA 100 mg/dL Abnormal NEG [facility] Comment on above: Performed By: #### N UM #### [facility] ([id number]) [address] [place] [address] SPECIFIC GRAVITY NIKITA >=1.030 Normal 1.003-1.035 Pro [facility] Comment on above: Performed By: #### N UM #### [facility] ([id number]) [address] [place] [address] UROBILINOGEN NIKITA 1.0 eu/dL Normal <1.1 [facility] Comment on above: Performed By: #### N UM #### [facility] ([id number]) [address] [place] [address] US PREG LESS THAN 14 WKS WIT H TRANSVAGINALon 12-19-2023 US PREG LESS THAN 14 WKS WITH TRANSVAGINAL US PREG LESS THAN 14 WKS WITH TRANSVAGINAL History: Bleeding in early Exam/Technique: Early obstetric ultrasound (transabdominal and endovaginal) Comparison: No previous studies are available for comparison. Technologist reports that on outside ultrasound 5 days ago displayed a gestational sac that was consistent with 7 weeks and 0 days with no yolk sac or Pole displayed Findings: Today's study again displays an intrauterine gestational sac with no pole or yolk sac demonstrated. Mean sac diameter is measured at 2.1 cm, consistent with 6 weeks and 5 days. The gestational sac appears normal in position but slightly irregular in contour. No placenta seen given early gestational age. Both ovaries appear normal with the right measuring 4.8 x 2.6 x 2.1 cm, and the left 2.5 x 2.1 x 2.4 cm. The right there is a simple paraovarian cyst that measures 1.8 cm greatest dimension. No significant adnexal abnormalities are displayed and no free intraperitoneal fluid or additional pelvic abnormalities are depicted. IMPRESSION: Intrauterine gestational sac with no pole or yolk sac displayed, and slight irregularity to to the contour of the gestational sac. Findings suspicious for failure follow-up for another 9 days, or areas dictated by the patient's symptoms, is recommended for definitive assessment of viability 1 Finalized by Olvin Overton MD on 12/19/2023 6:46 PM Normal [facility] Chlamydia/GC/Trich NAAon Chlamydia Trachomotis, CARLITOS Negative Normal Negative [facility] Comment on above: Performed By: #### C UU #### [facility] [address] [place] [address] #### GCCHLAMTRI #### [facility] , Neisseria Gonorrhoeae, CARLITOS Negative Normal Negative [facility] Comment on above: Performed By: #### C UU #### [facility] [address] [place] [address] #### GCCHLAMTRI #### [facility] , Trichomonas CARLITOS Negative Normal Negative [facility] Comment on above: Result Comment: Perf ormed at: =G - [facility] [address] [id number] Lehr Cutter: Cindy Pinzon MD, Phone: [phone] PERFORMED BY: [place] [address] PATHOLOGIST ANIMAL PATHOLOGY TEACHER BROOKLYNN PEARCE M.D. Performed By: #### C UU #### [address] #### GCCHLAMTRI #### [facility] , Urine Cultureon 03-01-2022 Bacteria identified Cx Nom (U) 30,000 colonies/ml mixed bacterial skin contaminants 2 Days PERFORMED BY: [place] [address] PATHOLOGIST ANIMAL PATHOLOGY TEACHER BROOKLYNN PEARCE M.D. [facility] Comment on above: Performed By: #### C UU #### [address] #### GCCHLAMTRI #### [facility] , Pap IG,rfx Aptima HPV all pt hon 05-25-2022 . . Normal [facility] Comment on above: Performed By: #### H IV12 #### [facility] [address] [place] [address] Andriy Stein DIAGNOSIS: Comment Normal [facility] Comment on above: Result Comment: NEGA TIVE FOR INTRAEPITHELIAL LESION OR MALIGNANCY. THIS SPECIMEN WAS RESCREENED PART OF OUR POLICE RADIO DISPATCHER PROGRAM. Performed By: #### H IV12 #### [facility] [address] [place] [address] Andriy Stein Methodology: Comment Normal [facility] Comment on above: Result Comment: This liquid based ThinPrep(R) pap test was screened with the use of an image guided system. Performed By: #### H IV12 #### [place] [address] Andriy Stein Note: Comment Normal [facility] Comment on above: Result Comment: The Pap smear is a screening test designed to aid in the detection of premalignant and malignant conditions of the uterine cervix. It is not a diagnostic procedure and should not be used as the sole means of detecting cervical cancer. Both false-positive and false-negative reports do occur. . Performed By: #### H IV12 #### [facility] [address] [place] [address] Andriy Stein Performed by: Comment Normal [facility] Comment on above: Result Comment: Nathalia Dela Cruz, Certified Professional Controller (ASCP) Performed By: #### H IV12 #### [facility] [address] [place] [address] Andriy Stein QC reviewed by: Comment Normal [facility] Comment on above: Result Comment: Hebert Motley, Supervisory Certified Professional Controller (ASCP) Performed By: #### H IV12 #### [facility] [address] [place] [address] Andriy Stein Reflex Criteria: Comment Normal [facility] Comment on above: Result Comment: The HPV DNA reflex criteria were not met with this specimen result therefore, no HPV testing was performed. . Performed By: #### H IV12 #### [facility] [address] [place], [place] [address] Andriy Sarita Specimen adequacy: Comment Normal [facility] Comment on above: Result Comment: Sati sfactory for evaluation. Endocervical and/or squamous metaplastic cells (endocervical component) are present. Performed By: #### H IV12 #### [facility] [address] [place] [id number] Andriy Sarita CBC AUTO DIFFon 07-31-2021 BASO # 0.0 103/ul Normal 0.0-0.1 [facility] Comment on above: Performed By: #### H IV12 #### [facility] [address] [place] [address] Andriy Sarita Basophils/100 WBC (Bld) 0.2 % Normal 0.2-2.0 [facility] Comment on above: Performed By: #### H IV12 #### [facility] [address] [place], [place] [address] Andriy Sarita EO # 0.2 103/ul Normal 0.0-0.7 [facility] Comment on above: Performed By: #### H IV12 #### [facility] [address] [place], [place] [address] Andriy Stein Eosinophils/100 WBC (Bld) 1.4 % Normal 0.9-7.0 [facility] Comment on above: Performed By: #### H IV12 #### [facility] [address] [place], [place] [address] Andriylogan Stein Erythrocyte distribution width (RBC) [Ratio] 16.9 % Critically high 11.0-15.0 [facility] Comment on above: Performed By: #### H IV12 #### [facility] [address] [place], [place] [address] Andriy Sarita Hematocrit (Bld) [Volume fraction] 28.9 % Critically low 36.0-48.0 [facility] Comment on above: Performed By: #### H IV12 #### [facility] [address] [place], [place] [address] Andriy Sarita Hemoglobin (Bld) [Mass/Vol] 9.2 g/dL Critically low 12.0-16.0 [facility] Comment on above: Result Comment: NUVIA ENT DELIVERED Performed By: #### H IV12 #### [facility] [address] [place], [place] [address] Andriy Sarita IG # 0.07 10e3/ul Critically high 0.00-0.03 [facility] Comment on above: Performed By: #### H IV12 #### [facility] [address] [place], [place] [address] Andriy Sarita IG % 0.7 % Critically high 0.0-0.[address] [facility] Comment on above: Performed By: #### H IV12 #### [facility] [address] [place], [place] [address] Andriy Sarita LYMPH # 3.2 103/ul Normal 1.2-3.8 [facility] Comment on above: Performed By: #### H IV12 #### [facility] [address] [place], [place] [address] Andriy Stein Lymphocytes/100 WBC (Bld) 29.7 % Normal 20.5-60.0 [facility] Comment on above: Performed By: #### H IV12 #### [facility] [address] [place], [place] [address] Andriy Stein MANUAL DIFF REQ NO Normal [facility] Comment on above: Performed By: #### H IV12 #### [facility] [address] [place], [place] [address] Andriylogan Stein MCH (RBC) [Entitic mass] 28.0 pg Normal 26.7-34.0 [facility] Comment on above: Performed By: #### H IV12 #### [facility] [address] [place], [place] [address] Andriylogan Stein MCHC (RBC) [Mass/Vol] 31.8 g/dL Normal 29.9-35.2 [facility] Comment on above: Performed By: #### H IV12 #### [facility] [address] [place], [place] [address] Andriylogan Stein MCV (RBC) [Entitic vol] 87.8 fL Normal 81.0-99.0 [facility] Comment on above: Performed By: #### H IV12 #### [facility] [address] [place] [address] Andriy Stein MONO # 0.9 103/ul Critically high 0.3-0.[address] [facility] Comment on above: Performed By: #### H IV12 #### [facility] [address] [place] [address] Andriy Rodgersen Monocytes/100 WBC (Bld) 8.3 % Normal 1.7-12.0 [facility] Comment on above: Performed By: #### H IV12 #### [facility] [address] [place] [address] Andriylogan Rodgersen NEUT # 6.3 103/ul Normal 1.4-6.5 [facility] Comment on above: Performed By: #### H IV12 #### [facility] [address] [place], [place] [address] Andriy Stein Neutrophils/100 WBC (Bld) 59.7 % Normal 43.0-75.0 [facility] Comment on above: Performed By: #### H IV12 #### [facility] [address] [place], [place] [address] Andriy Stein Platelet mean volume (Bld) [Entitic vol] 9.7 fL Normal 9.5-13.5 [facility] Comment on above: Performed By: #### H IV12 #### [facility] [address] [place], [place] [address] Andriy Sarita PLT 173 103/ul Normal 150-450 [facility] Comment on above: Performed By: #### H IV12 #### [facility] [address] [place] [address] Andriy Sarita RBC 3.29 106/ul Critically low 4.20-5.[address] [facility] Comment on above: Performed By: #### H IV12 #### [facility] [address] [place] [address] Andriy Sarita WBC 10.6 103/ul Normal 4.0-11.0 [facility] Comment on above: Performed By: #### H IV12 #### [facility] [address] [place] [address] Andriy Stein ASYMPTOMATIC COVID-19 ANTIGE Non 07-30-2021 EUA Statement SEE BELOW Normal [facility] Comment on above: Result Comment: This test [...] is revoked sooner. Performed By: #### H BSANS #### [facility] [address] [place] [address] Andriy Stein SARS-CoV-2 (COVID-19) RNA CARLITOS+probe Ql (Unsp spec) Negative Normal NEGATIVE [facility] Comment on above: Result Comment: Nega tive results are presumptive. They do not preclude infection and should not be used as the sole basis for treatment decisions. Additional confirmatory testing by a molecular method should be considered. Performed By: #### H BSANS #### [facility] [address] [place] [address] Andriy Stein CBC AUTO DIFFon 07-30-2021 BASO # 0.0 103/ul Normal 0.0-0.1 [facility] Comment on above: Performed By: #### C BC ####[facility] [address] [place] [address]Dr. Sunil Conner Basophils/100 WBC (Bld) 0.2 % Normal 0.2-2.0 [facility] Comment on above: Performed By: #### C BC ####[facility] [address] [place] [address]Dr. Sunil Conner EO # 0.1 103/ul Normal 0.0-0.7 [facility] Comment on above: Performed By: #### C BC ####[facility] [address] [place], [place] [address]Dr. Sunil Conner Eosinophils/100 WBC (Bld) 1.0 % Normal 0.9-7.0 [facility] Comment on above: Performed By: #### C BC ####[facility] [address] [place], [place] [address]Dr. Sunil Conner Erythrocyte distribution width (RBC) [Ratio] 17.0 % Critically high 11.0-15.0 [facility] Comment on above: Performed By: #### C BC ####[facility] [address] [place], [place] [address]DrWilson Conner Hematocrit (Bld) [Volume fraction] 37.5 % Normal 36.0-48.0 [facility] Comment on above: Performed By: #### C BC ####[facility] J[address] [place], [place] [address]Dr. Sunil Conner Hemoglobin (Bld) [Mass/Vol] 12.3 g/dL Normal 12.0-16.0 [facility] Comment on above: Performed By: #### C BC ####[facility] [address] [place], [place] [address]Dr. Sunil Conner IG # 0.05 10e3/ul Critically high 0.00-0.03 [facility] Comment on above: Performed By: #### C BC ####[facility] [address] [place], [place] [address]Dr. Sunil Conner IG % 0.5 % Normal 0.0-0.5 [facility] Comment on above: Performed By: #### C BC ####[facility] [address] [place], [place] [address]DrWilson Conner LYMPH # 2.8 103/ul Normal 1.2-3.8 [facility] Comment on above: Performed By: #### C BC ####[facility] [address] [place], [place] [address]Dr. Sunil Conner Lymphocytes/100 WBC (Bld) 28.4 % Normal 20.5-60.0 [facility] Comment on above: Performed By: #### C BC ####[facility] [address] [place] [address]DrWilson Conner MANUAL DIFF REQ NO Normal [facility] Comment on above: Performed By: #### C BC ####[facility] [address] [place] [address]DrWilson Conner MCH (RBC) [Entitic mass] 28.5 pg Normal 26.7-34.0 [facility] Comment on above: Performed By: #### C BC ####[facility] [address] [place], [place] [address]DrWilson Conner MCHC (RBC) [Mass/Vol] 32.8 g/dL Normal 29.9-35.2 [facility] Comment on above: Performed By: #### C BC ####[facility] [address] [place], [place] [address]DrWilson Conner MCV (RBC) [Entitic vol] 86.8 fL Normal 81.0-99.0 [facility] Comment on above: Performed By: #### C BC ####[facility] [address] [place], [place] [address]DrWilson Conner MONO # 0.8 103/ul Normal 0.3-0.8 [facility] Comment on above: Performed By: #### C BC ####[facility] [address] [place], [place] [address]DrWilson Conner Monocytes/100 WBC (Bld) 7.9 % Normal 1.7-12.0 [facility] Comment on above: Performed By: #### C BC ####[facility] [address] [place], [place] [address]DrWilson Conner NEUT # 6.0 103/ul Normal 1.4-6.5 [facility] Comment on above: Performed By: #### C BC ####[facility] H[address]xleg[address] [place], [place] [address]DrWilson Conner Neutrophils/100 WBC (Bld) 62.0 % Normal 43.0-75.0 [facility] Comment on above: Performed By: #### C BC ####[facility] [address] [place], [place] [address]Dr. Sunil Conner Platelet mean volume (Bld) [Entitic vol] 10.2 fL Normal 9.5-13.5 [facility] Comment on above: Performed By: #### C BC ####[facility] [address] [place], [place] [address]Dr. Sunil Conner PLT 207 103/ul Normal 150-450 [facility] Comment on above: Performed By: #### C BC ####[facility] E[address]kw[address] [place], [place] [address]Dr. Sunil Conner RBC 4.32 106/ul Normal 4.20-5.40 [facility] Comment on above: Performed By: #### C BC ####[facility] [address] [place], [place] [address]Dr. Sunil Conner WBC 9.7 103/ul Normal 4.0-11.0 [facility] Comment on above: Performed By: #### C BC ####[facility] [address]als[address] [place], [place] [address]DrWilson Sunil Conner DRUG SCREEN RAPID (URINE)on 07-30-2021 AMP Negative Normal NEGATIVE [facility] Comment on above: Performed By: #### D RUGRPD ####[facility] Iq[address]zr[address] [place], [place] [address]Dr. Chelsiebriana Ubaldo BAR Negative Normal NEGATIVE [facility] Comment on above: Performed By: #### D RUGRPD ####[facility] [address] [place] [address]Dr. Sunil Conner BUP Negative Normal NEGATIVE [facility] Comment on above: Performed By: #### D RUGRPD ####[facility] Dwyigy[address]zw[address] [place], [place] [address]Dr. Sunil Conner BZO Negative Normal NEGATIVE [facility] Comment on above: Performed By: #### D RUGRPD ####[facility] [address] [place], [place] [address]Dr. Chelsiebriana Conner TAMICA Negative Normal NEGATIVE [facility] Comment on above: Performed By: #### D RUGRPD ####[facility] [address] [place], [place] [address]Dr. Sunil Conner CUT-OFFS SEE BELOW Normal [facility] Comment on above: Result Comment: [...] 300 ng/mL Performed By: #### D RUGRPD ####[facility] V[address]rt[address]cdr[address] [place], [place] [address]Dr. Sunil Conner DRUG CUT HEADER DRUG CLASS TEST SYSTEM CUT-OFF CONCENTRATIONS ARE FOLLOWS: Normal [facility] Comment on above: Performed By: #### D RUGRPD ####[facility] [address] [place], [place] [address]Dr. Sunil Conner mAMP Negative Normal NEGATIVE [facility] Comment on above: Performed By: #### D RUGRPD ####[facility] Q[address]ofgepha[address] [place], [place] [address]Dr. Sunil Conner MTD Negative Normal NEGATIVE [facility] Comment on above: Performed By: #### D RUGRPD ####[facility] [address]sc[address] [place], [place] [address]Dr. Sunil Conner OPI Negative Normal NEGATIVE [facility] Comment on above: Performed By: #### D RUGRPD ####[facility] [address] [place], [place] [address]Dr. Sunil Conner OXY Negative Normal NEGATIVE [facility] Comment on above: Performed By: #### D RUGRPD ####[facility] [address] [place] [address]Dr. Sunil Conner PCP Negative Normal NEGATIVE [facility] Comment on above: Performed By: #### D RUGRPD ####[facility] [address] [place], [place] [address]Es. Sunil Conner PPX Negative Normal NEGATIVE [facility] Comment on above: Performed By: #### D RUGRPD ####[facility] [address] [place] [address]Dr. Sunil Conner TCA Negative Normal NEGATIVE [facility] Comment on above: Performed By: #### D RUGRPD ####[facility] [address] [place] [address]Dr. Sunil Conner THC Negative Normal NEGATIVE [facility] Comment on above: Performed By: #### D RUGRPD ####[facility] [address] [place] [address]Dr. Sunil Conner TYPE AND SCREENon 07-30-2021 TYPE AND SCREEN Negative Normal [facility] Comment on above: Performed By: #### T NS #### [facility] [address] [place] [address] [address] Sunil Conner US PREG BIOPHY W [...] NADIA DOOLEY Date: 2021-07-13 10:55 Normal [facility] US PREG GROWTHon 07-11-2021 US [...] EFW: 6 lbs. 3 oz., 37% FL/AC: 0.952253 FL/BPD: 0.929792 HC/AC: 0.983646 GESTATIONAL AGE: Age by EDC: 36 weeks 4 days FAHEEM by EDC: 08/04/2021 Age by US: 35 weeks 3 days FAHEEM by US: 08/12/2021 IMPRESSION: Normal interval growth Electronically authenticated by: NADIA DOOLEY Date: 2021-07-11 10:28 Normal [facility] COVID Quick Testingon 2021 Result Negative [employer] Other Quick Strepon 07-09-2021 S. pyogenes Org specific cx Ql (Throat) Negative [employer] Other Quick Strep [employer] Other GROUP B STREP CULTUREon 06-25 S. agalactiae Ag Ql (Unsp spec) Culture Observations: NEGATIVE FOR GROUP B STREPTOCOCCUS. Normal [facility] Comment on above: Performed By: #### G BSCX #### [facility] [address] [place] [address] Dr. Sunil Conner US PREG GROWTHon 06-20-2021 US PREG GROWTH EXAMINATION: US PREG GROWTH [...] EFW: 4 lbs. 14 oz., 53% FL/AC: 0.709238 FL/BPD: 0.382380 HC/AC: 1.547537 GESTATIONAL AGE: Age by EDC: 33 weeks 4 days FAHEEM by EDC: 08/04/2021 Age by US: 33 weeks 1 day FAHEEM by US: 08/07/2021 IMPRESSION: Normal interval growth Electronically authenticated by: NADIA DOOLEY Date: 2021-06-20 11:46 Normal [facility] CBC AUTO DIFFon 06-08-2021 BASO # 0.0 103/ul Normal 0.0-0.1 [facility] Comment on above: Performed By: #### H IV12 #### [facility] [address] [place] [address] Andriy Sarita Basophils/100 WBC (Bld) 0.5 % Normal 0.2-2.0 [facility] Comment on above: Performed By: #### H IV12 #### [facility] [address] [place] [address] Andriy Sarita EO # 0.1 103/ul Normal 0.0-0.7 [facility] Comment on above: Performed By: #### H IV12 #### [facility] [address] [place] [address] Andriy Sarita Eosinophils/100 WBC (Bld) 1.3 % Normal 0.9-7.0 [facility] Comment on above: Performed By: #### H IV12 #### [facility] [address] [place] [address] Andriy Sarita Erythrocyte distribution width (RBC) [Ratio] 19.8 % Critically high 11.0-15.0 [facility] Comment on above: Performed By: #### H IV12 #### [facility] [address] [place], [place] [address] Andriy Sarita Hematocrit (Bld) [Volume fraction] 34.9 % Critically low 36.0-48.0 [facility] Comment on above: Performed By: #### H IV12 #### [facility] [address] [place] [address] Andriy Sarita Hemoglobin (Bld) [Mass/Vol] 11.1 g/dL Critically low 12.0-16.0 [facility] Comment on above: Performed By: #### H IV12 #### [facility] [address] [place] [address] Andriy Sarita IG # 0.04 10e3/ul Critically high 0.00-0.03 [facility] Comment on above: Performed By: #### H IV12 #### [facility] [address] [place], [place] [address] Andriy Sarita IG % 0.5 % Normal 0.0-0.5 [facility] Comment on above: Performed By: #### H IV12 #### [facility] [address] [place] [address] Andriy Sarita LYMPH # 2.1 103/ul Normal 1.2-3.8 [facility] Comment on above: Performed By: #### H IV12 #### [facility] [address] [place] [address] Andriylogan Stein Lymphocytes/100 WBC (Bld) 24.8 % Normal 20.5-60.0 [facility] Comment on above: Performed By: #### H IV12 #### [facility] [address] [place], [place] [address] Andriy Stein MANUAL DIFF REQ NO Normal [facility] Comment on above: Performed By: #### H IV12 #### [facility] [address] [place], [place] [address] Andriy Sarita MCH (RBC) [Entitic mass] 27.5 pg Normal 26.7-34.0 [facility] Comment on above: Performed By: #### H IV12 #### [facility] [address] [place], [place] [address] Andriy Sarita MCHC (RBC) [Mass/Vol] 31.8 g/dL Normal 29.9-35.2 [facility] Comment on above: Performed By: #### H IV12 #### [facility] [address] [place], [place] [address] Andriy Sarita MCV (RBC) [Entitic vol] 86.6 fL Normal 81.0-99.0 [facility] Comment on above: Performed By: #### H IV12 #### [facility] [address] [place] [address] Andriylogan Stein MONO # 0.7 103/ul Normal 0.3-0.8 [facility] Comment on above: Performed By: #### H IV12 #### [facility] [address] [place] [address] Andriylogan Stein Monocytes/100 WBC (Bld) 8.7 % Normal 1.7-12.0 [facility] Comment on above: Performed By: #### H IV12 #### [facility] [facility] [address] [place] [address] Andriylogan Rodgersen NEUT # 5.4 103/ul Normal 1.4-6.5 [facility] Comment on above: Performed By: #### H IV12 #### [facility] [address] [place] [address] Andriy Stein Neutrophils/100 WBC (Bld) 64.2 % Normal 43.0-75.0 [facility] Comment on above: Performed By: #### H IV12 #### [facility] [address] [place] [address] Andriylogan Stein Platelet mean volume (Bld) [Entitic vol] 9.9 fL Normal 9.5-13.5 [facility] Comment on above: Performed By: #### H IV12 #### [facility] [address] [place] [address] Andriy Sarita PLT 232 103/ul Normal 150-450 [facility] Comment on above: Performed By: #### H IV12 #### [facility] [address] [place], [place] [id number] Andriy Sarita RBC 4.03 106/ul Critically low 4.20-5.[address] [facility] Comment on above: Performed By: #### H IV12 #### [facility] [address] [place] [address] Andriy Sarita WBC 8.5 103/ul Normal 4.0-11.0 [facility] Comment on above: Performed By: #### H IV12 #### [facility] [address] [address] Andriy Stein GTT 3 HR PREGon 04-30-2021 Glucose [Mass/Vol] 85 mg/dL Normal 74-106 [facility] Comment on above: Performed By: #### G TT3P ####[facility] [address] [address]Dr. Sunil Conner Glucose [Mass/Vol] 188 mg/dL Normal [facility] Comment on above: Performed By: #### G TT3P ####[facility] [address] [address]Dr. Sunil Conner Glucose [Mass/Vol] 133 mg/dL Normal [facility] Comment on above: Performed By: #### G TT3P ####[facility] [address] [address]Dr. Sunil Conner Glucose [Mass/Vol] 122 mg/dL Normal [facility] Comment on above: Performed By: #### G TT3P ####[facility] [address] [address]Dr. Sunil Conner CBC AUTO DIFFon 04-28-2021 BASO # 0.0 103/ul Normal 0.0-0.1 [facility] Comment on above: Performed By: #### C BC #### [facility] [address] [place] [address] Dr. Sunil Conner Basophils/100 WBC (Bld) 0.3 % Normal 0.2-2.0 [facility] Comment on above: Performed By: #### C BC #### [facility] [address] [address] [address] Sunil Conner EO # 0.1 103/ul Normal 0.0-0.7 [facility] Comment on above: Performed By: #### C BC #### [facility] [address] [address] [address] Sunil Conner Eosinophils/100 WBC (Bld) 1.2 % Normal 0.9-7.0 [facility] Comment on above: Performed By: #### C BC #### [facility] [address] [place] [address] Dr. Sunil Conner Erythrocyte distribution width (RBC) [Ratio] 14.6 % Normal 11.0-15.0 [facility] Comment on above: Performed By: #### C BC #### [facility] [address] [place] [address] Dr. Sunil Conner Hematocrit (Bld) [Volume fraction] 31.6 % Critically low 36.0-48.0 [facility] Comment on above: Performed By: #### C BC #### [facility] [address] [place] [address] Dr. Sunil Conner Hemoglobin (Bld) [Mass/Vol] 9.9 g/dL Critically low 12.0-16.0 [facility] Comment on above: Performed By: #### C BC #### [facility] [address] [place] [address] Dr. Sunil Conner IG # 0.05 10e3/ul Critically high 0.00-0.03 [facility] Comment on above: Performed By: #### C BC #### [facility] [address] [place] [address] Dr. Sunil Conner IG % 0.5 % Normal 0.0-0.5 [facility] Comment on above: Performed By: #### C BC #### [facility] [address] [place] [address] Dr. Sunil Conner LYMPH # 2.4 103/ul Normal 1.2-3.8 [facility] Comment on above: Performed By: #### C BC #### [facility] [address] [place] [address] Dr. Sunil Conner Lymphocytes/100 WBC (Bld) 25.6 % Normal 20.5-60.0 [facility] Comment on above: Performed By: #### C BC #### [facility] [address] [place] [address] Dr. Sunil Conner MANUAL DIFF REQ NO Normal [facility] Comment on above: Performed By: #### C BC #### [facility] [address] [address] [address] Sunil Conner MCH (RBC) [Entitic mass] 25.8 pg Critically low 26.7-34.0 [facility] Comment on above: Performed By: #### C BC #### [facility] [address] [place] [address] Dr. Sunil Conner MCHC (RBC) [Mass/Vol] 31.3 g/dL Normal 29.9-35.2 [facility] Comment on above: Performed By: #### C BC #### [facility] [address] [place] [address] Dr. Sunil Conner MCV (RBC) [Entitic vol] 82.3 fL Normal 81.0-99.0 [facility] Comment on above: Performed By: #### C BC #### [facility] [address] [place] [address] Dr. Sunil Conner MONO # 0.5 103/ul Normal 0.3-0.8 [facility] Comment on above: Performed By: #### C BC #### [facility] [address] [place] [address] Dr. Sunil Conner Monocytes/100 WBC (Bld) 5.3 % Normal 1.7-12.0 [facility] Comment on above: Performed By: #### C BC #### [facility] [address] [place] [address] Dr. Sunil Conner NEUT # 6.4 103/ul Normal 1.4-6.5 [facility] Comment on above: Performed By: #### C BC #### [facility] [address] [place] [address] Dr. Sunil Conner Neutrophils/100 WBC (Bld) 67.1 % Normal 43.0-75.0 [facility] Comment on above: Performed By: #### C BC #### [facility] [address] [place] [address] Dr. Sunil Conner Platelet mean volume (Bld) [Entitic vol] 10.3 fL Normal 9.5-13.5 [facility] Comment on above: Performed By: #### C BC #### [facility] [address] [address] [address] Sunil Conner PLT 255 103/ul Normal 150-450 [facility] Comment on above: Performed By: #### C BC #### [facility] [address] [address] [address] Sunil Conner RBC 3.84 106/ul Critically low 4.20-5.[address] [facility] Comment on above: Performed By: #### C BC #### [facility] [address] [address] [address] Sunil Conner WBC 9.5 103/ul Normal 4.0-11.0 [facility] Comment on above: Performed By: #### C BC #### [facility] [address] [place] [address] Dr. Sunil Conner GLUCOSE - 1HRon 04-28-2021 Glucose [Mass/Vol] 171 mg/dL Critically high 74-106 [facility] Comment on above: Performed By: #### H IV12 #### [facility] [address] [place] [address] Andriy Stein VAGINITIS/VAGINOSIS DNA PROB Douglas 04-21-2021 Janeth species Positive Abnormal Negative [facility] Comment on above: Performed By: #### V AGINT #### [facility] [address] [place] [address] Dr. Sunil Conner Gardnerella vaginalis Negative Normal Negative [facility] Comment on above: Performed By: #### V AGINT #### [facility] [address] [place] [address] Dr. uSnil Conner Trichomonas vaginalis Negative Normal Negative [facility] Comment on above: Performed By: #### V AGINT #### [facility] [address] [place] [address] Dr. Sunil Conner US PREG ANATOMY SINGLEon [...] extremity. Left lower extremity. Suboptimally seen: None. Abnormalities/Other : None BIOMETRY: BPD: 4.7 cm 20 weeks 2 days HC: 18.0 cm 20 weeks 3 days AC: 14.8 cm 20 weeks 0 days FL: 3.4 cm 20 weeks 3 days EFW:12 ounces, 47%; FL/AC: 0.207029 FL/BPD: 0.574326 HC/AC: 1.513283 GESTATIONAL AGE: Age by EDC: 20 weeks 4 days FAHEEM by EDC: 08/04/2021 Age by current US: 20 weeks 2 days FAHEEM by current US: 08/06/2021 IMPRESSION: Normal anatomy scan *Reference: [employer] Practice Guideline for the performance of Obstetric Ultrasound Examinations, March 25, 2007. Electronically authenticated by: NADIA DOOLEY Date: 2021-03-21 16:13 Normal [facility] PAP ACOG PANEL 3: 21 to 29on 02-21-2021 . . Normal [facility] Comment on above: Result Comment: Perf ormed at: WB Performed By: #### H IV12 #### [facility] [address] [address] Andriy Sarita Age Gdln ACOG Testing 21-29 Normal [facility] Comment on above: Performed By: #### H IV12 #### [facility] [address] [place], [place] [address] Andriy Sarita Chlamydia, Nuc. Acid Amp Negative Normal Negative [facility] Comment on above: Result Comment: Perf ormed at: =G Performed By: #### H IV12 #### [facility] [address] [place] [address] Andriy Stein DIAGNOSIS: Comment Abnormal [facility] Comment on above: Result Comment: EPIT HELIAL CELL ABNORMALITY. LOW-GRADE SQUAMOUS INTRAEPITHELIAL LESION (LSIL); MILD DYSPLASIA. Performed at: WB Performed By: #### H IV12 #### [facility] [address] [place] [address] Andriy Stein Electronically signed by: Comment Normal [facility] Comment on above: Result Comment: Mayela العلي MD, Pathologist Performed at: WB Performed By: #### H IV12 #### [facility] [address] [place] [address] Andriy Stein Gonococcus, Nuc. Acid Amp Negative Normal Negative [facility] Comment on above: Result Comment: Perf ormed at: =G Performed By: #### H IV12 #### [facility] [address] [place] [address] Andriy Stein Methodology: Comment Normal [facility] Comment on above: Result Comment: This liquid based ThinPrep(R) pap test was screened with the use of an image guided system. Performed at: WB Performed By: #### H IV12 #### [facility] [address] [place] [address] Andriy Stein Note: Comment Normal [facility] Comment on above: Result Comment: The Pap smear is a screening test designed to aid in the detection of premalignant and malignant conditions of the uterine cervix. It is not a diagnostic procedure and should not be used as the sole means of detecting cervical cancer. Both false-positive and false-negative reports do occur. . Performed at: WB Performed By: #### H IV12 #### [facility] [address] [place] [address] Adnriy Stein Pathologist Provided ICD10 Comment Normal [facility] Comment on above: Result Comment: [id number] Performed at: WB Performed By: #### H IV12 #### [facility] [address] [place] [address] Andriy Stein Performed by: Comment Normal [facility] Comment on above: Result Comment: Funmi Partida, Certified Professional Controller (ASCP) Performed at: WB Performed By: #### H IV12 #### [facility] [address] [address] Andriy Sarita Recommendation: Comment Abnormal [facility] Comment on above: Result Comment: Sugg est follow up as clinically appropriate. Performed at: WB Performed By: #### H IV12 #### [facility] [address] [address] Andriy Sarita Reflex Criteria: Comment Normal [facility] Comment on above: Result Comment: The HPV DNA reflex criteria were not met with this specimen result therefore, no HPV testing was performed. . Performed at: WB Performed By: #### H IV12 #### [facility] [address] [address] Andriy Sarita Specimen adequacy: Comment Normal [facility] Comment on above: Result Comment: Sati sfactory for evaluation. Endocervical and/or squamous metaplastic cells (endocervical component) are present. Performed at: WB Performed By: #### H IV12 #### [facility] [address] [address] Andriy Sarita AFP MATERNAL FOR SPINA BIFID Aon 02-19-2021 AFP MoM 1.15 Normal [facility] Comment on above: Performed By: #### H IV12 #### [facility] [address] [address] Andriy Sarita AFP Value 35.0 ng/mL Normal [facility] Comment on above: Performed By: #### H IV12 #### [facility] [address] [address] Andriy Sarita AFP, Serum for Spina Bifida Report Normal [facility] Comment on above: Performed By: #### H IV12 #### [facility] [address] [address] Andriy Sraita Comment Comment Normal [facility] Comment on above: Result Comment: Jassi Perez, Ph.D., [facility] Director . References: Available Upon Request. . Multiples Of Median Cutoffs For AFP Elevations Beebe 2.5 Black 2.8 IDD 2.0 Twins 4.5 Abbreviation Definitions IDD - Insulin Dep Diabetes OSBR - Open Spina Bifida Risk . For further inquiries contact [employer] [facility] at [phone]. Performed By: #### H IV12 #### [facility] [address] [place] [address] Andriy Stein Gest Age Collection Date 16.0 weeks Normal [facility] Comment on above: Performed By: #### H IV12 #### [facility] [address] [place] [address] Andriy Stein Gestat, Age Based on Ultrasound Normal [facility] Comment on above: Result Comment: 16.0 on 02/17/2021 Recalculations are not recommended when gestational dating by LMP and ultrasound are within 10 days. Performed By: #### H IV12 #### [facility] [address] [place] [address] Andriy Stein Insulin Dep Diabetes No Normal [facility] Comment on above: Performed By: #### H IV12 #### [facility] [address] [place] [address] Andriy Stein Interpretation Comment Normal [facility] Comment on above: Result Comment: Inte rpretation: [...] Customer Services to discuss available options. The [place] [employer] recommends amniocentesis be offered to women age 35 and older. Performed By: #### H IV12 #### [facility] [address] [place], [place] [id number] Andriy Stein [age] Normal [facility] Comment on above: Performed By: #### H IV12 #### [facility] [address] [place] [address] Andriy Stein Multiple Gestation No Normal [facility] Comment on above: Performed By: #### H IV12 #### [facility] [address] [place], [place] [address] Andriy Stein OSBR Risk 1 [place] [address] Normal [facility] Comment on above: Performed By: #### H IV12 #### [facility] [address] [id number] Andriy Stein PDF . Normal [facility] Comment on above: Performed By: #### H IV12 #### [facility] [address] [id number] Andriy Stein Race Normal [facility] Comment on above: Performed By: #### H IV12 #### [facility] [address] [id number] Andriy Stein Test Results: Negative Normal [facility] Comment on above: Performed By: #### H IV12 #### [facility] [address] [id number] Andriy Stein HEMOGLOBINOPATHY FRACTIONATI ON CASCADEon 02-07-2021 HGB A 97.3 % Normal 96.4-98.8 [facility] Comment on above: Performed By: #### H GBCAS ####[facility] [address] [id number] Stein HGB A2 2.7 % Normal 1.8-3.2 [facility] Comment on above: Performed By: #### H GBCAS ####[facility] [address] [id number] Stein HGB F 0.0 % Normal 0.0-2.0 [facility] Comment on above: Performed By: #### H GBCAS ####[facility] [address] [id number] Stein HGB S 0.0 % Normal 0.0 [facility] Comment on above: Performed By: #### H GBCAS ####[facility] [address] [id number] Stein Interpretation: Comment Normal [facility] Comment on above: Result Comment: Norm al hemoglobin present; no hemoglobin variant or thalassemia observed. Performed By: #### H GBCAS ####[facility] [address] [id number] Stein VARICELLA IGG ABon Varicella Zoster IgG 406 index Normal Immune >165 [facility] Comment on above: Result Comment: Nega tive <135 Equivocal 135 - 165 Positive >165 A positive result generally indicates exposure to the pathogen or administration of specific immunoglobulins, but it is not indication of active infection or stage of disease. Performed By: #### V ARCEL ####[facility] [address] [address]Andriy Stein HEP B SURFACE ANTIGEN SCREEN on 02-06-2021 HBsAg Screen Negative Normal Negative [facility] Comment on above: Performed By: #### H BSANS #### [facility] [address] [place] [address] Andriy Stein HEPATITIS C ANTIBODYon 02-06 Hep C Virus Ab <0.1 Normal 0.0-0.9 [facility] Comment on above: Result Comment: Nega tive: < 0.8 Indeterminate: 0.8 - 0.9 Positive: > 0.9 . The CDC recommends that a positive HCV antibody result be followed up with a HCV Nucleic Acid Amplification test (500199). Performed By: #### H CV ####[facility] [address] [address]Andriy Stein HIV 1 AND 2 WITH REFLEXon HIV Screen 4th Generation wRfx Non-Reactive Normal Non Reactive [facility] Comment on above: Performed By: #### H IV12 #### [facility] [address] [place] [address] Andriy Stein RPR QUANTon 02-06-2021 Rapid Plasma Reagin, Quant Non-Reactive Normal NonRea<1:1 [facility] Comment on above: Performed By: #### H IV12 #### [facility] [address] [place] [address] Andriy Stein RUBELLA AB IGGon 02-06-2021 Rubella Antibodies, IgG 1.72 index Normal Immune >0.99 [facility] Comment on above: Result Comment: Non- immune <0.90 Equivocal 0.90 - 0.99 Immune >0.99 Performed By: #### H IV12 #### [facility] [address] [place], [place] [id number] Andriy Sarita CBC AUTO DIFFon 02-05-2021 BASO # 0.0 103/ul Normal 0.0-0.1 [facility] Comment on above: Performed By: #### H BSANS #### [facility] [address] [place] [address] Andriy Sarita Basophils/100 WBC (Bld) 0.3 % Normal 0.2-2.0 [facility] Comment on above: Performed By: #### H BSANS #### [facility] [address] [place] [address] Andriy Sarita EO # 0.2 103/ul Normal 0.0-0.7 [facility] Comment on above: Performed By: #### H BSANS #### [facility] [address] [place] [address] Andriy Stein Eosinophils/100 WBC (Bld) 1.7 % Normal 0.9-7.0 [facility] Comment on above: Performed By: #### H BSANS #### [facility] [address] [place] [address] Andriy Stein Erythrocyte distribution width (RBC) [Ratio] 14.0 % Normal 11.0-15.0 [facility] Comment on above: Performed By: #### H BSANS #### [facility] [address] [place] [address] Andriylogan Stein Hematocrit (Bld) [Volume fraction] 34.3 % Critically low 36.0-48.0 [facility] Comment on above: Performed By: #### H BSANS #### [facility] [address] [place] [address] Andriy Sarita Hemoglobin (Bld) [Mass/Vol] 11.0 g/dL Critically low 12.0-16.0 [facility] Comment on above: Performed By: #### H BSANS #### [facility] [address] [place] [address] Andriylogan Stein IG # 0.02 10e3/ul Normal 0.00-0.03 [facility] Comment on above: Performed By: #### H BSANS #### [facility] [address] [place], [place] [id number] Andriylogan Stein IG % 0.2 % Normal 0.0-0.5 [facility] Comment on above: Performed By: #### H BSANS #### [facility] [address] [place], [place] [id number] Andriy Sarita LYMPH # 3.4 103/ul Normal 1.2-3.8 [facility] Comment on above: Performed By: #### H BSANS #### [facility] [address] [place] [address] Andriy Stein Lymphocytes/100 WBC (Bld) 38.7 % Normal 20.5-60.0 [facility] Comment on above: Performed By: #### H BSANS #### [facility] [address] [place] [address] Andriylogan Stein MANUAL DIFF REQ NO Normal [facility] Comment on above: Performed By: #### H BSANS #### [facility] [address] [place] [address] Andriy Stein MCH (RBC) [Entitic mass] 27.2 pg Normal 26.7-34.0 [facility] Comment on above: Performed By: #### H BSANS #### [facility] [address] [place] [address] Andriy Stein MCHC (RBC) [Mass/Vol] 32.1 g/dL Normal 29.9-35.2 [facility] Comment on above: Performed By: #### H BSANS #### [facility] [address] [place], [place] [id number] Andriy Stein MCV (RBC) [Entitic vol] 84.9 fL Normal 81.0-99.0 [facility] Comment on above: Performed By: #### H BSANS #### [facility] [address] [place] [address] Andriy Sarita MONO # 0.7 103/ul Normal 0.3-0.8 [facility] Comment on above: Performed By: #### H BSANS #### [facility] [address] [id number] Andriy Rodgersen Monocytes/100 WBC (Bld) 8.3 % Normal 1.7-12.0 [facility] Comment on above: Performed By: #### H BSANS #### [facility] [address] [id number] Andriy Sarita NEUT # 4.4 103/ul Normal 1.4-6.5 [facility] Comment on above: Performed By: #### H BSANS #### [facility] [address] [id number] Andriy Sarita Neutrophils/100 WBC (Bld) 50.8 % Normal 43.0-75.0 [facility] Comment on above: Performed By: #### H BSANS #### [facility] [address] [place], [place] [id number] Andriy Stein Platelet mean volume (Bld) [Entitic vol] 9.8 fL Normal 9.5-13.5 [facility] Comment on above: Performed By: #### H BSANS #### [facility] [address] [id number] Andriy Sarita PLT 248 103/ul Normal 150-450 [facility] Comment on above: Performed By: #### H BSANS #### [facility] [address] [id number] Andriy Sarita RBC 4.04 106/ul Critically low 4.20-5.[address] [facility] Comment on above: Performed By: #### H BSANS #### [facility] [address] [id number] Andriy Sarita WBC 8.7 103/ul Normal 4.0-11.0 [facility] Comment on above: Performed By: #### H BSANS #### [facility] [address] [place], [place] [id number] Andriy Stein GLYCOHEMOGLOBIN A1Con 2020 ADA RECOMMENDATION ADA THERAPEUTIC TARGET 6.0 - 7.0 ACTION SUGGESTED > 7.0 Normal [facility] Comment on above: Performed By: #### A 1C ####[facility] [address] [place], [place] [address]Bqetok Sarita Glucose [Mass/Vol] 111 mg/dL Normal [facility] Comment on above: Performed By: #### A 1C ####[facility] [address] [place], [place] [address]Ixctbr Sarita HbA1c (Bld) [Mass fraction] 5.5 % Normal <=6.0 [facility] Comment on above: Performed By: #### A 1C ####[facility] [address] [place], [place] [address]Terqiw Sarita GTT 3 HR PREGon 02-05-2021 Glucose [Mass/Vol] 79 mg/dL Normal 74-106 [facility] Comment on above: Performed By: #### H BSANS #### [facility] [address] [place], [place] [address] Andriy Sarita Glucose [Mass/Vol] 117 mg/dL Normal [facility] Comment on above: Performed By: #### H BSANS #### [facility] [address] [place], [place] [address] Andriy Sarita Glucose [Mass/Vol] 93 mg/dL Normal [facility] Comment on above: Performed By: #### H BSANS #### [facility] [address] [place], [place] [address] Andriy Sarita Glucose [Mass/Vol] 46 mg/dL Critically low [facility] Comment on above: Performed By: #### H BSADOM #### [facility] [address] [place], [place] [address] Andriy Sarita TYPE AND SCREENon 02-05-2021 TYPE AND SCREEN Antibody Screen NEGATIVE Blood Bank Notes completed by [email or web address] ABO Rh Typing A Rh Positive Blood Bank Notes completed by [email or web address] [facility] Comment on above: Performed By: #### T NS #### [facility] [address] [place], [place] [address] Andriy Sarita CULTURE URINEon 01-28-2021 CULTURE URINE Culture Observations: MODERATE GROWTH OF MIXED GENITAL HUBER. NO POTENTIAL PATHOGENS SEEN. Normal [facility] Comment on above: Performed By: #### U RCX ####[facility] [address] [place] [id number] Sarita UA RANDOM W/MICROSCOPICon BACTERIA SMALL Abnormal NONE SEEN [facility] Comment on above: Performed By: #### H BSANS #### [facility] [address] [place] [address] Andriy Sarita Bilirubin Ql (U) Negative Normal NEGATIVE The [facility] Comment on above: Performed By: #### H BSANS #### [facility] [address] [place] [address] Andriy Sarita CAST NONE SEEN Normal NONE SEEN [facility] Comment on above: Performed By: #### H BSANS #### [facility] [address] [place] [address] Andriy Sarita Clarity (U) CLEAR Normal CLEAR [facility] Comment on above: Performed By: #### H BSANS #### [facility] [address] [place] [address] Andriy Sarita Color (U) YELLOW Normal YELLOW [facility] Comment on above: Performed By: #### H BSANS #### [facility] [address] [place] [address] Andriy Sarita Crystals LM Nom (Urine sed) NONE SEEN Normal NONE SEEN [facility] Comment on above: Performed By: #### H BSANS #### [facility] [address] [place] [address] Andriy Sarita Epithelial cells LM Ql (Urine sed) FEW Abnormal NONE SEEN /RARE [facility] Comment on above: Performed By: #### H BSANS #### [facility] [address] [place] [address] Andriy Sarita Glucose Ql (U) Negative Normal NEGATIVE The [facility] Comment on above: Performed By: #### H BSANS #### [facility] [address] [place] [address] Andriy Sarita Hemoglobin Ql (U) Negative Normal NEGATIVE The [facility] Comment on above: Performed By: #### H BSANS #### [facility] [address] [place] [address] Andriy Sarita Ketones Ql (U) TRACE Abnormal NEGATIVE The [facility] Comment on above: Performed By: #### H BSANS #### [facility] [address] [place] [address] Andriy Sarita LEUKOCYTES Negative Normal NEGATIVE [facility] Comment on above: Performed By: #### H BSANS #### [facility] [address] [place] [address] Andriy Sarita MUCOUS SMALL Abnormal NONE SEEN [facility] Comment on above: Performed By: #### H BSANS #### [facility] [address] [place] [address] Andriy Sarita Nitrite Ql (U) Negative Normal NEGATIVE The [facility] Comment on above: Performed By: #### H BSANS #### [facility] [address] [place] [address] Andriy Sarita pH (U) 7.0 [pH] Normal 5-9 [facility] Comment on above: Performed By: #### H BSANS #### [facility] [address] [place] [address] Andriy Sarita RBC 0-2 Normal 0-2 [facility] Comment on above: Performed By: #### H BSANS #### [facility] [address] [place] [address] Andriy Sarita SPEC GRAVITY 1.020 Normal 1.005-<=1.02 5 [facility] Comment on above: Performed By: #### H BSANS #### [facility] [address] [place] [address] Andriy Sarita UA PROTEIN Negative Normal NEGATIVE/ TRACE [facility] Comment on above: Performed By: #### H BSANS #### [facility] [address] [place] [address] Andriy Sarita Urobilinogen Qn (U) 0.2 {Juanito'U}/dL Normal 0.2 - 1. 0 [facility] Comment on above: Performed By: #### H BSANS #### [facility] [address] [place] [address] Andriy Sarita WBC NONE SEEN Normal NONE SEEN [facility] Comment on above: Performed By: #### H BSANS #### [facility] [address] [place] [id number] Andriy Stein BUNon 01-26-2021 Urea nitrogen [Mass/Vol] 5.0 mg/dL Critically low 7.0-17.0 [facility] Comment on above: Performed By: #### T SH, LDH, BUN, URIC, ALT, AST ####[facility] [address] [place], [place] [address]Tagnst Karen CBC AUTO DIFFon 01-26-2021 BASO # 0.0 103/ul Normal 0.0-0.1 [facility] Comment on above: Performed By: #### C BC #### [facility] [address] [place] [address] Andriy Stein Basophils/100 WBC (Bld) 0.4 % Normal 0.2-2.0 [facility] Comment on above: Performed By: #### C BC #### [facility] [address] [place] [address] Andriy Stein EO # 0.1 103/ul Normal 0.0-0.7 [facility] Comment on above: Performed By: #### C BC #### [facility] [address] [place], [place] [id number] Andriy Stein Eosinophils/100 WBC (Bld) 1.1 % Normal 0.9-7.0 [facility] Comment on above: Performed By: #### C BC #### [facility] [address] [place], [place] [id number] Andriy Stein Erythrocyte distribution width (RBC) [Ratio] 14.6 % Normal 11.0-15.0 [facility] Comment on above: Performed By: #### C BC #### [facility] [address] [place], [place] [id number] Andriy Stein Hematocrit (Bld) [Volume fraction] 34.7 % Critically low 36.0-48.0 [facility] Comment on above: Performed By: #### C BC #### [facility] [address] [place] [id number] Andriy Sarita Hemoglobin (Bld) [Mass/Vol] 11.1 g/dL Critically low 12.0-16.0 [facility] Comment on above: Performed By: #### C BC #### [facility] [address] [place], [place] [address] Andriy Sarita IG # 0.04 10e3/ul Critically high 0.00-0.03 [facility] Comment on above: Performed By: #### C BC #### [facility] [address] [place], [place] [id number] Andriy Sarita IG % 0.5 % Normal 0.0-0.5 [facility] Comment on above: Performed By: #### C BC #### [facility] [address] [place] [address] Andriy Sarita LYMPH # 2.1 103/ul Normal 1.2-3.8 [facility] Comment on above: Performed By: #### C BC #### [facility] [address] [place] [address] Andriy Sraita Lymphocytes/100 WBC (Bld) 25.5 % Normal 20.5-60.0 [facility] Comment on above: Performed By: #### C BC #### [facility] [address] [place], [place] [id number] Andriylogan Stein MANUAL DIFF REQ NO Normal The [facility] Comment on above: Performed By: #### C BC #### [facility] [address] [place], [place] [id number] Andriy Sarita MCH (RBC) [Entitic mass] 27.2 pg Normal 26.7-34.0 [facility] Comment on above: Performed By: #### C BC #### [facility] [address] [place], [place] [address] Andriy Sarita MCHC (RBC) [Mass/Vol] 32.0 g/dL Normal 29.9-35.2 [facility] Comment on above: Performed By: #### C BC #### [facility] [address] [place], [place] [address] Andriy Sarita MCV (RBC) [Entitic vol] 85.0 fL Normal 81.0-99.0 [facility] Comment on above: Performed By: #### C BC #### [facility] [address] [place], [place] [address] Andriy Stein MONO # 0.6 103/ul Normal 0.3-0.8 [facility] Comment on above: Performed By: #### C BC #### [facility] [address] [place] [address] Andriy Stein Monocytes/100 WBC (Bld) 7.1 % Normal 1.7-12.0 [facility] Comment on above: Performed By: #### C BC #### [facility] [address] [place] [address] Andriy Stein NEUT # 5.3 103/ul Normal 1.4-6.5 [facility] Comment on above: Performed By: #### C BC #### [facility] [address] [place] [address] Andriy Stein Neutrophils/100 WBC (Bld) 65.4 % Normal 43.0-75.0 [facility] Comment on above: Performed By: #### C BC #### [facility] [address] [place], [place] [id number] Andriy Stein Platelet mean volume (Bld) [Entitic vol] 9.5 fL Normal 9.5-13.5 [facility] Comment on above: Performed By: #### C BC #### [facility] [address] [place] [address] Andriy Stein PLT 258 103/ul Normal 150-450 [facility] Comment on above: Performed By: #### C BC #### [facility] [address] [place], [place] [address] Andriy Stein RBC 4.08 106/ul Critically low 4.20-5.40 [facility] Comment on above: Performed By: #### C BC #### [facility] [address] [place] [address] Andriylogan Rodgersen WBC 8.1 103/ul Normal 4.0-11.0 [facility] Comment on above: Performed By: #### C BC #### [facility] [address] [place] [id number] Andriy Stein CREATININE CLEARon CREA CLEARANCE 69.46 ml/min Critically low 75.00-115.00 [facility] Comment on above: Performed By: #### H IV12 #### [facility] [address] [place] [address] Andriy Stein CREA, 24 HR UR 579.12 mg/24 hr Critically low 800.00-1 ,800 .00 [facility] Comment on above: Performed By: #### H IV12 #### [facility] [address] [place] [address] Andriy Stein Creatinine [Mass/Vol] 0.53 mg/dL Normal 0.52-1.04 [facility] Comment on above: Performed By: #### H IV12 #### [facility] [address] [place] [address] Andriy Stein URINE CREAT 30.48 mg/dL Normal 20.00-300.00 [facility] Comment on above: Performed By: #### H IV12 #### [facility] [address] [place] [id number] Andriy Stein GLUCOSE - 1HRon 01-26-2021 Glucose [Mass/Vol] 150 mg/dL Critically high 74-106 [facility] Comment on above: Performed By: #### G LU1HR ####[facility] [address] [place] [id number] Rodgersen LDHon 01-26-2021 LDH 125 U/L Normal 122-222 [facility] Comment on above: Performed By: #### T SH, LDH, BUN, URIC, ALT, AST ####[facility] [address] [place] [id number] Stein PROTEIN 24HR URINEon 021 T PROT, 24 HR UR 32.3 mg/24 hr Critically low 42.0-225.0 [facility] Comment on above: Performed By: #### P ROT24U ####[facility] [address] [place] [address]Andriy Stein UR PROT 1.7 mg/dL Normal <=12.0 [facility] Comment on above: Performed By: #### P ROT24U ####[facility] [address] [place] [address]Andriy Stein UR TOT VOL 1900 ml/24 HR Normal [facility] Comment on above: Performed By: #### P ROT24U ####[facility] [address] [place] [address]Andriy Stein Performed By: #### H IV12 #### [facility] [address] [place] [address] Andriy Stein SGOTon 01-26-2021 AST [Catalytic activity/Vol] 17 U/L Normal 14-36 [facility] Comment on above: Performed By: #### T SH, LDH, BUN, URIC, ALT, AST ####[facility] [address] [place] [address]Andriy Stein SGPTon 01-26-2021 ALT [Catalytic activity/Vol] 16 U/L Normal 9-52 [facility] Comment on above: Performed By: #### T SH, LDH, BUN, URIC, ALT, AST ####[facility] [address] [place] [address]Andriy Rodgersen TSHon 01-26-2021 TSH 0.220 uIU/mL Critically low 0.470-4.680 [facility] Comment on above: Performed By: #### T SH, LDH, BUN, URIC, ALT, AST ####[facility] [address] Sarita TSH RANGE SEE BELOW Normal [facility] Comment on above: Result Comment: <0.3 4 UIU/ml HYPERTHYROID 0.34-5.60 UIU/ml EUTHYROID >5.60 UIU/ml HYPOTHYROID Performed By: #### T SH, LDH, BUN, URIC, ALT, AST ####[facility] [address] [place] [address]Gerken Sarita URIC ACID SERUMon 01-26-2021 Urate [Mass/Vol] 3.6 mg/dL Normal 2.5-6.2 [facility] Comment on above: Performed By: #### T SH, LDH, BUN, URIC, ALT, AST ####[facility] [address] [place], [place] [address]TqimwqAndriy Stein US PREG TVon 01-24-2021 US PREG [...] ANGELO BLANKENSHIP Date: 2021-01-24 10:12 Normal [facility] ABO AND RH TYPEon 01-19-2021 ABO and Rh group Nom (Bld) ABO Rh Typing A Rh Positive Normal [facility] Comment on above: Performed By: #### A MADDY ####[facility] [address] [place], [place] [address]NpfmalAndriy Stein PREG QUANT HCGon 01-19-2021 HCG QUANT [address]708 mIU/mL Normal [facility] Comment on above: Result Comment: Prev iously reported as: 3 On 01/19/2021 11:21 By CV2 Performed By: #### H IV12 #### [facility] [address] [place], [place] [address] Andriy Stein HCG RANGE SEE BELOW Normal [facility] Comment on above: Result Comment: 5-50 0-1 WEEK 40-300 1-2 WEEKS 100-1,000 2-3 WEEKS 500-6,000 3-4 WEEKS 5,000-200,000 1-2 MONTHS 10,000-100,000 2-3 MONTHS 3,000-50,000 2ND TRIMESTER 1,000-50,000 3RD TRIMESTER Performed By: #### H IV12 #### [facility] [address] [place], [place] [address] Andriy Stein Vital Signs Date Time Vital Sign Value Performing Clinician Facility 10-16-2024 14:37-0400 Body weight 85.84 kg Noms Nurse [facility] 10-16-2024 14:37-0400 Diastolic blood pressure 82 mm[Hg] Noms Nurse [facility] 10-16-2024 14:37-0400 Systolic blood pressure 124 mm[Hg] [facility] 07-09-2021 13:35-0500 Body temperature 96.4 [degF] Renita Kendyhyun Other [facility] Other 07-09-2021 13:35-0500 SaO2% (BldA) [Mass fraction] 98 % Renita Kendyntascencion Other [facility] Other 02-19-2021 04:06-0400 Body weight 83.0088 kg RENAY OTOOLE [facility] Comment on above: Performed By: #### HIV12 #### [facility] [address] [place], [place] [address] Andriy Stein Encounters Encounter Date Encounter Type Care Provider Facility Start: 10-16-2024 End: 10-16-2024 Office outpatient visit 5 minutes [facility] Jenny Nurse [facility] Comment on above: GA: 11w2d Start: 10-16-2024 End: 10-16-2024 ambulatory HECTOR JENNY Not Available Start: 01-02-2024 End: 01-02-2024 ambulatory HECTOR JENNY Not Available Start: 12-20-2023 End: 12-21-2023 ambulatory NO PCP NO PCP [facility] Start: 12-19-2023 End: 12-20-2023 Emergency department patient visit RENITA HICKMAN [facility] Start: 12-19-2023 End: 12-19-2023 Emergency department patient visit NO PCP NO PCP [facility] Start: 03-01-2022 End: 09-07-2022 ambulatory Kym Masterson Facility:[facility] Start: 11-08-2021 End: 11-08-[address] HECTOR ALVARADO Facility:[facility] Start: 08-01-2021 End: 08-01-[address] HECTOR ALVARADO Facility:[facility] Start: 07-30-2021 End: 07-31-2021 Evaluation and management of inpatient DR HECTOR ALVARADO Facility:[facility] Start: 07-13-2021 End: 07-13-[address] HECTOR ALVARADO Facility:[facility] Start: 07-11-2021 End: 07-12-[address] NADIA DOOLEY Facility:[facility] Start: 07-09-2021 End: 07-09-2021 ambulatory Renita Canseco Other [facility] Other Start: 07-09-2021 Office outpatient visit 15 minutes Renita Canseco [facility] Start: 07-06-2021 End: 07-06-[address] HECTOR ALVARADO Facility:[facility] Start: 06-20-2021 End: 06-21-[address] NADIA DOOLEY Facility:[facility] Start: 06-08-2021 End: 06-09-[address] HECTOR ALVARADO Facility:[facility] Start: 05-04-2021 End: 05-11-2021 ambulatory RENAY [...] Date Procedure Procedure Detail Performing Clinician Start: 10-16-2024 End: 10-16-2024 Urnls dip stick/tablet rgnt non-auto w/o micrscp Hector Alvarado DO Work Phone: Start: 07-30-2021 Delivery of Products of Conception, External Approach RENAY OTOOLE Start: 07-30-2021 Drainage of Amniotic Fluid, Therapeutic from Products of Conception, Via Natural or Artificial Opening RENAY OTOOLE Start: 07-30-2021 Introduction of Othe r Hormone into Peripheral Vein, Percutaneous Approach RENAY OTOOLE Start: 07-30-2021 Repair Perineum Skin , External Approach RENAY OTOOLE Plan of Treatment Date Care Activity Detail Author Start: 11-13-2024 End: 11-13-2024 Patient encounter procedure 11/13/2024 10:40 AM EDT Routine [facility] [address] [place] [id number] Hector Alvarado, DO [address] [place] [address] [facility] Start: 10-16-2024 End: 10-16-2025 ABO/Rh ABO/Rh Lab Routine Missed menses , unspecified gestational age Expected: 10/16/2024 (Approximate), Expires: 10/16/2025 [facility] Comment on above: Expected: 10/16/2024 (Approximate), Expires: 10/16/2025 Start: 10-16-2024 End: 10-16-2025 Blood type and Indirect antibody screen panel - Blood Type and screen Lab Routine Missed menses , unspecified gestational age Expected: 10/16/2024 (Approximate), Expires: 10/16/2025 [facility] Work Phone: Comment on above: Expected: 10/16/2024 (Approximate), Expires: 10/16/2025 Start: 10-16-2024 End: 10-16-2025 Drugs of abuse panel - Urine by Screen method Rapid drug screen, urine Lab Routine , unspecified gestational age Encounter for supervision of normal first in first trimester Expected: 10/16/2024 (Approximate), Expires: 10/16/2025 [facility] Comment on above: Expected: 10/16/2024 (Approximate), Expires: 10/16/2025 Start: 2021 Screening for malign ant neoplasm of cervix [facility] Start: 2012 Screening for malign ant neoplasm of cervix Pap Smear [facility] Bacteria identified in Urine by Culture Urine culture Microbiology Routine Missed menses Ordered: 10/16/2024 [facility] Comment on above: Ordered: 10/16/2024 CBC W Auto Different ial panel - Blood CBC and differential Lab Routine Missed menses , unspecified gestational age Ordered: 10/16/2024 [facility] Comment on above: Ordered: 10/16/2024 Hemoglobin A1c/Hemoglobin.total in Blood Hemoglobin A1c Lab Routine Missed menses , unspecified gestational age Ordered: 10/16/2024 [facility] Comment on above: Ordered: 10/16/2024 Hepatitis B virus surface Ag [Presence] in Serum or Plasma by Immunoassay Hepatitis B surface antigen Lab Routine Missed menses , unspecified gestational age Ordered: 10/16/2024 [facility] Comment on above: Ordered: 10/16/2024 Hepatitis C virus Ab [Presence] in Serum or Plasma by Immunoassay Hepatitis C antibody Lab Routine Missed menses , unspecified gestational age Ordered: 10/16/2024 [facility] Comment on above: Ordered: 10/16/2024 HIV-1/HIV-2 antigen/antibody combination immunoassay HIV-1 and HIV-2 antibodies Lab Routine Missed menses , unspecified gestational age Ordered: 10/16/2024 [facility] Comment on above: Ordered: 10/16/2024 Reagin Ab [Presence] in Serum by RPR RPR Lab Routine Missed menses , unspecified gestational age Ordered: 10/16/2024 [facility] Comment on above: Ordered: 10/16/2024 Rubella antibody, IgG Rubella an tibody, IgG Lab Routine Missed menses , unspecified gestational age Ordered: 10/16/2024 [facility] Comment on above: Ordered: 10/16/2024 Payers Date Payer Category Payer Self-pay 2022 Private Health Insurance [facility] [id number] 2022 Private Health Insurance [id number] 1991 Unknown [id number] [id number] .593 1991 Unknown [id number] 2.16.840.1.061405.3.579.2 .593 1991 Unknown [id number] 2.16.840.1.243230.3.579.2 .593 1991 Unknown [id number] 2.16840.1.263731.3.579.2 .593 1991 Unknown [id number] 2.16840.1.266212.3.579.2 .593 1991 Unknown [id number] 2.16.840.1.117779.3.579.2 .593 1991 Unknown [id number] 2.16.840.1.909481.3.579.2 .593 1991 Unknown [id number] 2.16.840.1.120926.3.579.2 .593 1991 Unknown [id number] 2.16.840.1.492809.3.579.2 .593 1991 Unknown [id number] 2.16.840.1.326581.3.579.2 .593 1991 Unknown [id number] 2.16.840.1.305773.3.579.2 .593 1991 Unknown [id number] 2.16.840.1.127324.3.579.2 .593 1991 Unknown [id number] 2.16.840.1.040670.3.579.2 .593 1991 Unknown [id number] 2.16.840.1.753135.3.579.2 .593 1991 Unknown [id number] 2.16.840.1.647678.3.579.2 .593 1991 Unknown [id number] 2.16.840.1.822376.3.579.2 .593 1991 Unknown [id number] 2.16.840.1.846648.3.579.2 .593 1991 Unknown [id number] 2.16.840.1.850100.3.579.2 .593 1991 Unknown [id number] 2.16.840.1.010482.3.579.2 .593 1991 Unknown [id number] 2.16.840.1.883758.3.579.2 .593 1991 Unknown [id number] 2.16.840.1.204811.3.579.2 .1286 1991 Unknown [id number] 2.16.840.1.980791.3.579.2 .1286 1991 Unknown [id number] 2.16.840.1.888246.3.579.2 .1286 1991 Unknown [id number] 2.16.840.1.988889.3.579.2 .1259 1991 Unknown [id number] 2.16.840.1.696599.3.579.2 .1259 1991 Unknown [id number] 2.16.840.1.432921.3.579.2 .1259 1959 Unknown [id number] 1959 Unknown [id number] Unknown [id number] 2.16.840.1.457607.3.579.2 .531 Social History Date Type Detail Facility Sex Assigned At [facility] Other Tobacco smoking stat [facility] Tobacco smoking consumption unknown [facility] Start: 08-12-2024 [facility] Start: 1990 Sex assigned at Female [facility] Start: 06-27-2023 Gender identity Identifies as female gender (finding) [facility] Start: 06-27-2023 Sexual orientation Heterosexual (finding) [facility] History of Present illness Narrative 10-16-2024 Faye Tyler MA - 10/16/2024 1:30 PM EDT Note Date & Type Note Facility 10-16-2024 History of Presen t illness Narrative Reason for Appointment: Patient ID: Paris Mosqueda is a 34 y.o. female who presents for No chief complaint on file. Patient presents today for a Nurse OB Intake appointment. Patient is 11w2d with a Estimated Date of Delivery: 05/05/25 OB History Para Term AB Living 1 SAB IAB Ectopic Multiple Live Births # Outcome Date GA Lbr Candido/2nd Weight Sex Type Anes PTL Lv 1 Current Current Medications: currently has no medications in their medication list. Medical History: Active Ambulatory Problems Diagnosis Date Noted No Active Ambulatory Problems Resolved Ambulatory Problems Diagnosis Date Noted No Resolved Ambulatory Problems Past Medical History: Diagnosis Date Constipation Left foot pain Stress fracture of left foot Family History Problem Relation Name Age of Onset Diabetes Mother Hypertension Mother Diabetes Father Hypertension Other Diabetes Other Depression Other Hyperlipidemia Other Social History Tobacco Use Smoking status: Not on file Smokeless tobacco: Not on file Substance Use Topics Alcohol use: Not on file Drug use: Not on file No past surgical history on file. No Known Allergies Vitals: There is no height or weight on file to calculate BMI. BP: Patient's last menstrual period was 07/29/2024 (exact date). Assessment/Plan Diagnoses and all orders for this visit: Missed menses - US OB transvaginal; Future - Type and screen; Future - ABO/Rh; Future - CBC and differential - Hemoglobin A1c - RPR - Rubella antibody, IgG - Hepatitis B surface antigen - Hepatitis C antibody - HIV-1 and HIV-2 antibodies - Urine culture - POCT , urine manually resulted - POCT urinalysis dipstick manually resulted , unspecified gestational age - Type and screen; Future - ABO/Rh; Future - CBC and differential - Hemoglobin A1c - RPR - Rubella antibody, IgG - Hepatitis B surface antigen - Hepatitis C antibody - HIV-1 and HIV-2 antibodies - Rapid drug screen, urine; Future Encounter for supervision of normal first in first trimester - Rapid drug screen, urine; Future Nurse Note: OB Intake: Patient presents today for first OB visit. Patients history has been reviewed in great detail including any potential risks. Patient signed consent forms and patient desires testing in both trimesters. Patient currently has no complaints and has been advised to drink 6-8 glasses of water a day, eat no raw or undercooked meat, and stay away from [facility]. Patient has also been advised to not change litter boxes and eat 6 small meals a day. Patient has been consulted regarding the do's and don'ts of . Patient was given labs and all questions and concerns were answered. Follow Up: Patient is to return in 4 weeks for routine OB appointment. Follow Up: Patient is to have labs drawn at directed and return to office for initial OB appointment with provider. Patient may call office as needed with any concerns or questions. Nurse Visit Completed by: Faye Tyler MA documented in this encounter [facility] Evaluation note 07-09-2021 Note Date & Type [...] Patient care instructions given in writting by [facility] Home document [employer] Other Evaluation note Note Date & Type Note Facility Evaluation note Diagnosis Missed menses Missed menses , unspecified gestational age Encounter for supervision of normal first in first trimester documented in this encounter [facility] Summary Purpose Family History No Family History Records FoundNo Family History Records FoundNo Family History Records FoundNo Family History Records Found Advance Directives No Advanced Directives Records FoundNo Advanced Directives Records FoundNo Advanced Directives Records FoundNo Advanced Directives Records Found Additional Source Comments INFORMATION SOURCE (unrecogn ized section and content) DATE CREATED AUTHOR 11/17/2021 [facility] DATE CREATED AUTHOR AUTHOR'S ORGANIZ ATION 03/24/2022 [facility] DATE CREATED AUTHOR AUTHOR'S ORGANIZ ATION 12/29/2023 [facility] DATE CREATED AUTHOR AUTHOR'S ORGANIZ ATION 10/17/2024 [facility] EPIC REASON FOR VISIT (unrecogniz ed section and content) Reason Comments Amenorrhea FOR RECORDS PERTAINING TO PATIENTS WHO ARE [...] BE BASED ON THE PRIMARY CLINICAL RECORDS. [email or web address] [facility]. provides no warranty or guarantee of the accuracy or completeness of information in this document.
[2024-11-11 11:46] LABS: BOX Test Reference Lab unity; BOX Test Sent Out unity
[2024-11-11 11:51] LABS: Basophils Percent Auto 0.2 % (0.2-2.0); Eosinophils Absolute Auto 0.1 10^3/uL (0.0-0.7); Hematocrit 35.7 % (36.0-48.0); Hemoglobin 11.8 g/dL (12.0-16.0); Immature Granulocytes Abs Auto 0.06 10^3/uL (0.00-0.03); Immature Granulocytes Pct Auto 0.5 % (0.0-0.5); Lymphocytes Absolute Auto 3.3 10^3/uL (1.2-3.8); Lymphocytes Percent Auto 25.9 % (20.5-60.0); Mean Corpuscular HGB Conc 33.1 g/dL (29.9-35.2); Mean Corpuscular Hemoglobin 27.8 pg (26.7-34.0); Mean Platelet Volume 9.8 fL (9.5-13.5); Monocytes Absolute Auto 0.8 10^3/uL (0.3-0.8); Monocytes Percent Auto 6.2 % (1.7-12.0); Neutrophils Absolute Auto 8.3 10^3/uL (1.4-6.5); Neutrophils Percent Auto 66.2 % (43.0-75.0); Platelet Count 284 10^3/uL (150-450); Red Blood Count 4.25 10^6/uL (4.20-5.40); Red Cell Distribution Width 14.5 % (11.0-15.0); White Blood Count 12.6 10^3/uL (4.0-11.0)
[2024-11-11 12:08] LABS: Amphetamine Screen Urine NEGATIVE (NEGATIVE); Barbiturates Screen Urine NEGATIVE (NEGATIVE); Benzodiazepines Screen Urine NEGATIVE (NEGATIVE); Buprenorphine Screen Urine NEGATIVE (NEGATIVE); Cannabinoid Screen Urine NEGATIVE (NEGATIVE); Cocaine Screen Urine NEGATIVE (NEGATIVE); Methadone Screen Urine NEGATIVE (NEGATIVE); Methamphetamines Screen Urine NEGATIVE (NEGATIVE); Opiate Screen Urine NEGATIVE (NEGATIVE); Oxycodone Screen Urine NEGATIVE (NEGATIVE); Phencyclidine Screen Urine NEGATIVE (NEGATIVE); Tricyclic Antidepressant Urine NEGATIVE (NEGATIVE)
[2024-11-11 12:26] LABS: Estimated Average Glucose 126 mg/dL
[2024-11-12 05:08] LABS: HIV Ab/p24 Ag Screen Non Reactive (Non Reactive)
[2024-11-12 06:09] LABS: HBsAg Screen Negative (Negative); HCV Ab Non Reactive (Non Reactive)
[2024-11-12 07:08] LABS: Rubella Antibodies, IgG 1.62 index (Immune >0.99)
[2024-11-12 11:10] LABS: Rapid Plasma Reagin, Quant Non Reactive titer (NonRea<1:1)
== END 2024-11-11 11:07 | disposition home or self-care (01) ==
LOC: LAB 11:11
PROVIDERS: Visit Provider Obstetrics & Gynecology
DX: Z36.0 Encounter for antenatal screening for chromosomal anomalies (principal); Z34.01 Encounter for supervision of normal first pregnancy, first trimester; N92.6 Irregular menstruation, unspecified
CPT/HCPCS: 36415; 80307; 83036; 85025; 86592; 86762; 86803; 86850; 86900; 86901; 87086; 87340; 87389

== ENCOUNTER 2024-12-04 14:48 | Outpatient (REF) | payer OTHER, SELFPAY ==
--- OUTSIDE RECORDS SUMMARY | 2024-07-28 03:45 | XMS_ITS ---
Author Organization [facility] vices Address [address] [place] [phone] Care Team Providers Care World Designer Name Role Phone Pako Mays Unavailable [phone] REASON FOR VISIT Recall (A) 33 Medications Medication SIG (Take, Route, Frequency, Duration) Notes Start Date End Date Status Pantoprazole Sodium 40 MG 1 tablet Orally Once a day for 30 day(s) as needed 09/05/2021 Not-Taking Dicyclomine HCl 20 MG 1 tablet Orally Th ree times a day for 30 day(s) as needed 09/05/2021 Not-Taking Social History Sex Assigned At : Social History Observation Description Sex Assigned At Female Encounters Encounter Location Date Provider Diagnosis [facility] [address] [place], [place] [phone] 07/28/2024 Pako Mays Plan Of Treatment No Information Progress Notes * Antonette MOSQUEDAjeanDOB:1990 (34 yo F)Acc No.[id number]:07/28/2024 Patient: Paris TORRES Provider: Yesenia Mays DDS :1990 A ge:34 Y S ex:Female Date:07/28/2024 Address:[address] [place] [address] [id number] Subjective: * Chief Complaints: * 1 [...] Electronic signature of Radha Mays DDS on 12/04/2024 at 02:51 PM EDT Sign off status: Pending * Provider: Yesenia Mays DDS Date: 07/28/2024 Generated for Na llamas/Mark/Christophe on: 0 12/04/2024 02:51 PM EDT
--- OUTSIDE RECORDS SUMMARY | 2024-11-24 13:30 | XMS_ITS | Encounter Summary ---
Author Organization [employer] tem Address [facility] [id number] [address] [place] [address] Care Team Providers Care Otr [employer] Driver Name Role Phone No Pcp, No Pcp Primary Care Provider Unavailabl e Reason for Visit * Reason Comments Gestational Diabetes * Consultation (Routine) - Pending Review Specialty Diagnoses / Procedures Referred By Belen t Referred To Contact Maternal and Medicine Diagnoses Gestational diabetes mellitus (GDM) in second trimester, gestational diabetes method of control unspecified Scooby Alvarado, DO [address] [place] [address] Phone: tel: fax: Maternal- Medicine at [facility] [address] [place] [address] Phone: tel: fax: Referral ID Status Reason Start Date Expiration Date Visits Requested Visits Authorized [id number] Pending Review Specialty Services Required 11/19/2024 11/19/2025 1 1 Encounter Details Date Type Department Care Team (Late st Contact Info) Description 11/24/2024 1:30 PM EDT Support Visit Maternal- Medicine at [facility] [address] [place] [address] Oma Davis RN [address] [id number] Chinyere Martinez, DENISE [address] [place] [address] Gestational diabetes mellitus (GDM) in second trimester, gestational diabetes method of control unspecified Social History Tobacco Use Types Packs/Day Years Used Date Smoking Tobacco: Never Smokeless Tobacco: Never Alcohol Use Standard Drinks/Week Comments Not Currently 0 (1 standard drink = 0.6 oz pur e alcohol) Housing Instability Answer Date Recorde d Are you worried or concerned that in the next two months you may not have stable housing that you own, rent or stay in as a part of a household? No 12/20/2023 Childcare Answer Date Recorded Childcare Unknown 12/04/2018 Employment Answer Date Recorded Employment Unknown 12/04/2018 Hunger Screening Answer Date Recorded Within the past 12 months we worried whether our food would run out before we got money to buy more. Never True 12/20/2023 Within the past 12 months th e food we bought just didn't last and we didn't have money to get more. Never True 12/20/2023 Purpose - Life Answer Date Recorded Purpose and direction in life Unknown Estimated Date of Delivery Comme nts Yes 05/05/2025 Based on last me nstrual period of 07/29/2024 Sex and Gender Information Value Date Recorded Sex Assigned at Not on file Legal Sex Female 11:48 AM EDT Gender Identity Not on file Sexual Orientation Not on file documented as of this encounter Last Filed Vital Signs Vital Sign Reading Time Taken Comments Blood Pressure - - Pulse - - Temperature - - Respiratory Rate - - Oxygen Saturation - - Inhaled Oxygen Concentration - - Weight 85.7 kg (189 lb) 11/24/2024 3:59 PM EDT Height - - Body Mass Index 34.57 12/20/2023 7:47 PM EDT documented in this encounter Miscellaneous Notes * Group Note - Chinyere Martinez RD - 11/24/2024 1:30 PM EDT Patient: Paris Mosqueda Date: 11/24/2024 Vitals: 11/24/24 1559 Weight: 85.7 kg (189 lb) Patient present for diabetes education group class per doctor order secondary to diagnosis of GDM and/or abnormal glucose tolerance. Food recall suggests patient typically consumes a diet of mainly healthy choices. Pt has gained 0 # to date. Weight gain goal is 11-20#. Pt appears willing to make changes. Nutrition diagnosis: inconsistent carbohydrate intake related to lack of nutrition knowledge as evidenced by food log. Instructed pt in 1900 kcal meal plan of 3 meals and 3 snacks, carbohydrate counting, label reading, dining out, and portion control. Energy content of meal plan to be adjusted as needed based on patient's blood glucose control and weight gain/loss. Discussed foods rich in iron and calcium. Encouraged pt to limit dining out and measure carbohydrates for 2 days. To send 2 day food log and blood glucoses. Please refer to health habits for other goals. Face to face time was 85 minutes. documented in this encounter Plan of Treatment Not on file documented as of this encounter Procedures Procedure Name Priority Date/Time Associated Diagnosis Comments GLUCOSE RANDOM OR FASTING Routine 11/24/2024 Gestational diabetes mellitus (GDM) in second trimester, gestational diabetes method of control unspecified documented in this encounter Results * Glucose random or fasting- POCT (11/24/2024) External Glucose Fasting Or Random (Fbs) 94 MANUALLY TRANSCRIBED RESULTS Blood Venous blood / Unknown 11/24/2024 Amaya Schroeder PA-C LAB BLOOD ORDERABLES Final Result MANUALLY TRANSCRIBED RESULTS documented in this encounter Visit Diagnoses Diagnosis Gestational diabetes mellitus (GDM) in second trimester, gestational diabetes method of control unspecified documented in this encounter Care Teams Otr [employer] Driver Relationship Specialty Start Date End Date No Pcp, No Pcp IZZY Wilhelm [id number] PCP - General Family Medicine 12/19/23 documented as of this encounter
--- OUTSIDE RECORDS SUMMARY | 2024-12-04 09:40 | XMS_ITS | Encounter Summary ---
Author Organization [facility] Healthcare Address [address] [place] [address] Care Team Providers Care Roller Coaster Operator Name Role Phone Unavailable Primary Care Provider Unavailabl e Reason for Visit * Reason Comments Routine Visit Encounter Details Date Type Department Care Team (Latest Contact Info) Description 12/04/2024 9:40 AM EDT Routine [facility] [address] [facility] [facility] [place] [address] Scooby Alvarado, DO [address]az [place], [facility] Second trimester ([facility]); 18 weeks gestation of ([facility]); Well woman exam with routine gynecological exam; Screening, , for anatomic survey ([facility]); Screen for STD (sexually transmitted disease); Need for maternal serum alpha-protein (MSAFP) screening ([facility]) Social History Tobacco Use Types Packs/Day Years Used Date Smoking Tobacco: Never Assessed Estimated Date of Delivery Comme nts Yes 05/05/2025 Based on last me nstrual period of 07/29/2024 (Exact Date) Sex and Gender Information Value Date Recorded Sex Assigned at Female 06/27/2023 9:38 AM EST Legal Sex Female 6:47 PM EDT Gender Identity Female 06/27/2023 9:38 AM EST Sexual Orientation Straight 06/27/2023 9: 38 AM EST documented as of this encounter Last Filed Vital Signs Vital Sign Reading Time Taken Comments Blood Pressure 118/72 12/04/2024 10:25 AM EDT Pulse - - Temperature - - Respiratory Rate - - Oxygen Saturation - - Inhaled Oxygen Concentration - - Weight 85.3 kg (188 lb) 12/04/2024 10:25 AM EDT Height 162.6 cm (5' 4 ) 12/04/2024 10:26 AM EDT Body Mass Index 32.27 12/04/2024 10:25 AM EDT documented in this encounter Progress Notes * Yane Grant MA - 12/04/2024 9:40 AM EDT Reason for Appointment: Patient ID: Paris Mosqueda is a 34 y.o. female who presents for Routine Visit Patient presents today for Return OB appointment. MEDICATIONS Current Outpatient Medications Medication Instructions Alcohol Swabs (Alcohol Prep Pad) 70 % pads 1 Pad, Topical, Daily, Use four times daily to check FSBS. Blood Glucose Monitoring Suppl (Chef Dovunque Glucometer) w/Device kit 1 kit, Does not apply, Daily, Use four times daily to check FSBS. In the morning prior to breakfast & 1 hour after each meal for a total of 4times daily. Glucose Blood (Blood Glucose Test) strip 1 strip, In Vitro, Daily, Use in the morning prior to breakfast, 1 hour after each meal for a total of 4times daily. Lancets Ultra Thin misc 1 each, In Vitro, Daily, Use to check FSBS four times daily [id number]-Au-FA ( 1 + IRON PO) Take by mouth ALLERGIES No Known Allergies PROBLEMS Active Ambulatory Problems Diagnosis Date Noted No Active Ambulatory Problems Resolved Ambulatory Problems Diagnosis Date Noted No Resolved Ambulatory Problems Past Medical History: Diagnosis Date Constipation Left foot pain Stress fracture of left foot HISTORY PAST MEDICAL HISTORY SOCIAL HISTORY Past Medical History: Diagnosis Date Constipation Left foot pain Stress fracture of left foot Social History Tobacco Use Smoking status: Not on file Smokeless tobacco: Not on file Substance Use Topics Alcohol use: Not on file Drug use: Not on file FAMILY HISTORY Family History Problem Relation Name Age of Onset Diabetes Mother Hypertension Mother Diabetes Father Hypertension Other Diabetes Other Depression Other Hyperlipidemia Other SURGICAL HISTORY No past surgical history on file. REVIEW OF SYSTEMS Review of Systems: Review of Systems All other systems reviewed and are negative. OBJECTIVE Objective: Physical Exam Constitutional: Appearance: Normal appearance. She is well-developed. Genitourinary: Vulva normal. Right Adnexa: not tender and no mass present. Left Adnexa: not tender and no mass present. No cervical discharge. Breasts: Breasts are soft. Right: Normal. Left: Normal. HENT: Head: Normocephalic. Nose: Nose normal. Mouth/Throat: Mouth: Mucous membranes are moist. Cardiovascular: Rate and Rhythm: Normal rate and regular rhythm. Pulmonary: Effort: Pulmonary effort is normal. Breath sounds: Normal breath sounds. Abdominal: General: Bowel sounds are normal. There is no distension. Palpations: Abdomen is soft. Tenderness: There is no abdominal tenderness. There is no guarding or rebound. Musculoskeletal: General: No swelling. Normal range of motion. Cervical back: Normal range of motion. Right lower leg: No edema. Left lower leg: No edema. Neurological: General: No focal deficit present. Mental Status: She is alert and oriented to person, place, and time. Skin: General: Skin is warm and dry. Psychiatric: Mood and Affect: Mood normal. Behavior: Behavior normal. Vitals and nursing note reviewed. Exam conducted with a engineer remote control diesel present. Vitals: There is no height or weight on file to calculate BMI. BP: 118/72 Patient's last menstrual period was 07/29/2024 (exact date). ASSESSMENT & PLAN ICD-10-CM 1. Second trimester ([facility]) Z34.92 POCT urinalysis dipstick manually resulted 2. 18 weeks gestation of ([facility]) Z3A.18 3. Well woman exam with routine gynecological exam Z01.419 Pap Smear HPV DNA probe, amplified 4. Screening, , for anatomic survey ([facility]) Z36.89 US OB 14+ weeks anatomy scan 5. Screen for STD (sexually transmitted disease) Z11.3 SURESWAB(R) ADVANCED VAGINITIS PLUS, TMA CHLAMYDIA TRACHOMATIS (GENITO/STI) Neisseria gonorrhea DNA probe, direct 6. Need for maternal serum alpha-protein (MSAFP) screening ([facility]) Z36.1 Alpha fetoprotein, maternal Alpha fetoprotein, maternal Return OB/Annual Exam: Patient presents today for an annual exam/routine obstetrics appointment. Patient is currently 18w2d . Patient is doing well and states she has no complaints. Pap/cultures was obtained without difficulty and patient was given msAFP order to have obtained. Orders Placed This Encounter Procedures HPV DNA probe, amplified US OB 14+ weeks anatomy scan CHLAMYDIA TRACHOMATIS (GENITO/STI) Neisseria gonorrhea DNA probe, direct Alpha fetoprotein, maternal POCT urinalysis dipstick manually resulted Follow Up: Patient is to return to our office in 4 weeks for routine OB appointment Documented by Yane Grant MA on behalf of: Scooby Alvarado DO documented in this encounter Plan of Treatment Upcoming Encounters Date Type Department Care Team (Late st Contact Info) Description 01/01/2025 1:30 PM EDT Routine [facility] OB [address] [place] [id number] Deborah Kwan PA [address] [place] [address] Scheduled Orders Name Type Priority Associated Diagnoses Orde r Schedule SURESWAB(R) ADVANCED VAGINITIS PLUS, TMA Pathology and Cytology Routine Screen for STD (sexually transmitted disease) Ordered: 12/04/2024 CHLAMYDIA TRACHOMATIS (GENITO/STI) Lab Routine Screen for STD (sexually transmitted disease) Ordered: 12/04/2024 Neisseria gonorrhea DNA probe, direct Lab Routine Screen for STD (sexually transmitted disease) Ordered: 12/04/2024 Pap Smear Pathology and Cytology Routine Well woman exam with routine gynecological exam Ordered: 12/04/2024 HPV DNA probe, amplified Microbiology Routine Well woman exam with routine gynecological exam Ordered: 12/04/2024 US OB 14+ weeks anatomy scan Imaging Routine Screening, , for anatomic survey ([facility]) Expected: 12/04/2024, Expires: 03/06/2025 Alpha fetoprotein, maternal Lab Routine Need for maternal serum alpha-protein (MSAFP) screening ([facility]) Expected: 12/04/2024 (Approximate), Expires: 01/03/2025 documented as of this encounter Procedures Procedure Name Priority Date/Time Associated Diagnosis Comments POCT URINALYSIS DIPSTICK Routine 12/04/2024 10:27 AM EDT Second trimester ([facility]) documented in this encounter Results * POCT urinalysis dipstick manually resulted (12/04/2024 10:27 AM EDT) Color, UA Yellow Clarity, UA Clear Glucose, UA Negative Negative - 1999(110) ++++ mg/dL Bilirubin, UA Negative Negative - 4(70) +++ mg/dL Ketones, UA Negative Negative - 160(16) ++++ mg/dL Spec Grav, UA 1.015 1 - 1.03 Blood, UA Negative Negative - 50 Celestino/mcL pH, UA 7.0 5 - 9 Protein, UA Negative Negative - 2000(20) ++++ mg/dL Urobilinogen, UA 0.2 0.2 - 12 mg/dL Leukocytes, UA Positive Negative - 500+++ Dodie/mcL Comment:small Nitrite, UA Negative Negative - Positive Urine 12/04/2024 10:2 7 AM EDT Scooby Alvarado DO POINT OF CARE TEST ENTER/EDIT OR DERABLES Final Result documented in this encounter Visit Diagnoses Diagnosis Second trimester ([facility]) state, incidental 18 weeks gestation of ([facility]) Well woman exam with routine gynecological exam Routine gynecological examination Screening, , for anatomic survey ([facility]) Encounter for anatomic survey Screen for STD (sexually transmitted disease) Screening examination for venereal disease Need for maternal serum alpha-protein (MSAFP) screening ([facility]) documented in this encounter
--- OUTSIDE RECORDS SUMMARY | 2024-12-04 14:52 | XMS_ITS | Encounter Summary ---
Author Organization [facility] Address [address] [place] [address] Care Team Providers Care Website/Blog Editor Name Role Phone Unavailable Primary Care Provider Unavailabl e Encounter Details Date Type Department Care Team (Late st Contact Info) Description 11/13/2024 Abstract [facility] [address] [place] [address] Scooby Alvarado DO [address] [place] [address] Dr Jaz [place], [id number] Social History Tobacco Use Types Packs/Day Years [...] AM EST documented as of this encounter Plan of Treatment Upcoming Encounters Date Type Department Care Team (Late st Contact Info) Description 01/01/2025 1:30 PM EDT Routine [facility] OB [address] [place] [address] Deborah Kwan PA [address] [facility] [address] [facility] [address] [place], [place] [id number] documented as of this encounter Visit Diagnoses Not on filedocumented in this encounter
--- OUTSIDE RECORDS SUMMARY | 2024-12-04 14:52 | XMS_ITS | Encounter Summary ---
Author Organization [facility] [employer] [facility] tem Address [facility] [id number] [address] [place] [address] Care Team Providers Care Soda Dispenser Name Role Phone No Pcp, No Pcp Primary Care Provider Unavailabl e Encounter Details Date Type Department Care Team ([facility] st Contact Info) Description 12/04/2024 Telephone Maternal- Medicine at [facility] [address] [place] [phone] Rowena Hasnen, LD [address] [place] [address] Social History Tobacco Use Types Packs/Day Years [...] on file documented as of this encounter Miscellaneous Notes * Telephone Encounter - BEL Anderson - 12/04/2024 11:02 AM EDT Called regarding blood sugar logs from 11/25/2024-11/30/2024 but received voicemail. Your doing a greatjob checking and recording your blood sugars. You did have 3 elevated fasting blood sugars so checking to make sure that you are having a high fiber snack in the evening with a protein (refer to yoursnack list for better choices in the evening). Also trying to be active for 20-30 minutes after supper can help lower your blood sugars in the morning. You also had 1 elevated blood sugar after breakfast and after lunch. Try to make sure that you are keeping your carbohydrates to 15-25 grams at breakfast and 45 grams at lunch and dinner. If you have questions you can call me at [phone]. Please continue to send in blood sugars weekly. I will also send a [place]olo message. documented in this encounter Plan of Treatment Not on file documented as of this encounter Visit Diagnoses Not on filedocumented in this encounter Care Teams Soda Dispenser Relationship Specialty Start Date End Date No Pcp, [place] [address] PCP - General Family Medicine 12/19/23 documented as of this encounter
--- OUTSIDE RECORDS SUMMARY | 2024-12-04 14:52 | XMS_ITS | Clinical Summary ---
Author Organization [facility] Healthcare Address [address] [place] [address] Care Team Providers Care Candy Roller Name Role Phone Unavailable Primary Care Provider Unavailabl e Allergies No known active allergies Medications Lkgxlrkj-Imx-Av- FA ( 1 + IRON PO) Take by mouth Active Lancets Ultra Thin miscIndications: Gestational diabetes mellitus (GDM), antepartum, gestational diabetes method of control unspecified (HHS-HCC),Elevat ed glucose tolerance test 1 each by In Vitro route Daily Use to check FSBS four times daily 150 each 3 5 12/14/19 25 Active Alcohol Swabs (Alcohol Prep Pad) 70 % padsIndications: Gestational diabetes mellitus (GDM), antepartum, gestational diabetes method of control unspecified (HHS-HCC),Elevat ed glucose tolerance test Apply 1 Pad topically Daily Use four times daily to check FSBS. 150 each 3 5 Active Glucose Blood (Blood Glucose Test) stripIndications :Gestational diabetes mellitus (GDM), antepartum, gestational diabetes method of control unspecified (HHS-HCC),Elevat ed glucose tolerance test 1 strip by In Vitro route Daily Use in the morning prior to breakfast, 1 hour after each meal for a total of 4times daily. 150 strip 3 5 12/14/19 25 Active Blood Glucose Monitoring Suppl (D-Care Glucometer) w/Device kitIndications:G estational diabetes mellitus (GDM), antepartum, gestational diabetes method of control unspecified (HHS-HCC),Elevat ed glucose tolerance test 1 kit Daily Use four times daily to check FSBS. In the morning prior to breakfast & 1 hour after each meal for a total of 4times daily. 1 kit 5 11/14/19 26 Active Encounters Date Type Department Care Team Description 12/04/2024 9:40 AM EDT Routine [facility] [address] [address] Scooby Alvarado, Second trimester ([facility]); 18 weeks gestation of ([facility]); Well woman exam with routine gynecological exam; Screening, , for anatomic survey ([facility]); Screen for STD (sexually transmitted disease); Need for maternal serum alpha-protein (MSAFP) screening ([facility]) 12/04/2024 Bamboo flowsheet [facility] [address] [place] [address] Scooby Alvarado, 12/04/2024 Travel 11/13/2024 10:40 AM EDT Routine [facility] [address] [place] [address] Scooby Alvarado, 15 weeks gestation of ([facility]); Second trimester ([facility]); Diet controlled gestational diabetes mellitus (GDM), antepartum ([facility]); Gestational diabetes mellitus (GDM), antepartum, gestational diabetes method of control unspecified ([facility]); Elevated glucose tolerance test 11/13/2024 Abstract [facility] [address] [place] [address] Scooby Alvarado, 11/13/2024 Results Follow-Up [facility] [address] [place] [address] Viola Washington LPN 11/13/2024 Bamboo flowsheet [facility] [address] [place] [address] Scooby Alvarado, 11/11/2024 Clinisync Result Encounter [facility] External Department Unsolicited Scooby Alvarado, 11/11/2024 Travel 10/16/2024 1:30 PM EDT Initial [facility] [address] [place] [address] [place]: 11w2d 10/16/2024 1:00 PM EDT Ancillary Procedure [facility] [address] [place] [address] [place] [phone] Missed menses 10/15/2024 Travel from Last 3 Months Family History Medical History Relation Name Comments Diabetes Father Diabetes Mother Hypertension Mother Depression Other Diabetes Other Hyperlipidemia Other Hypertension Other Relation Name Status Comments Father Mother Other Social History Tobacco Use Types Packs/Day Years [...] Orientation Straight 06/27/2023 9: 38 AM EST Last Filed Vital Signs Vital Sign Reading Time Taken Comments Blood Pressure 118/72 12/04/2024 10:25 AM EDT Pulse - - Temperature - - Respiratory Rate - - Oxygen Saturation - - Inhaled Oxygen Concentration - - Weight 85.3 kg (188 lb) 12/04/2024 10:25 AM EDT Height 162.6 cm (5' 4 ) 12/04/2024 10:26 AM EDT Body Mass Index 32.27 12/04/2024 10:25 AM EDT Plan of Treatment Upcoming Encounters Date Type Department Care Team (Late st Contact Info) Description 01/01/2025 1:30 PM EDT Routine [facility] [address] [place] [address] [place] [phone] Deborah Kwan PA [address] [place] [address] [address] [place], [place] [id number] Health Maintenance Due Date Last Done Comments Pap Smear 2012 Cervical Cancer Screening 2021 HPV/Cotest 2021 Influenza Vaccine Completed 04/04/2024, , 04/01/2022, Additional history exists Procedures Procedure Name Priority Date/Time Associated Diagnosis Comments POCT URINALYSIS DIPSTICK Routine 12/04/2024 10:27 AM EDT Second trimester ([facility]) CULTURE, URINE, ROUTINE Routine 11/13/2024 4:39 PM EDT Missed menses POCT URINALYSIS DIPSTICK Routine 11/13/2024 11:04 AM EDT 15 weeks gestation of ([facility]) Second trimester ([facility]) HBSAG SCREEN Routine 11/11/2024 11:26 AM EDT RAPID PLASMA REAGIN, QUANT Routine 11/11/2024 11:26 AM EDT HCV ANTIBODY RFX TO QUANT PCR Routine 11/11/2024 11:26 AM EDT ALL RUBELLA IGG AB Routine 11/11/2024 11 :26 AM EDT HIV AB/P24 AG WITH REFLEX Routine 11/11/2024 11:26 AM EDT ALL TYPE AND SCREEN Routine 11/11/2024 1 1:26 AM EDT MLR HEMOGLOBIN A1C Routine 11/11/2024 11 :26 AM EDT ALL CBC WITH AUTO DIFF Routine 11/11/2024 11:26 AM EDT BOX TEST Routine 11/11/2024 11:26 AM EDT [facility] DRUG SCREEN RAPID (URINE) Routine 11/11/2024 11:15 AM EDT POCT , URINE Routine 10/16/2024 2:42 PM EDT Missed menses POCT URINALYSIS DIPSTICK Routine 10/16/2024 2:41 PM EDT Missed menses US OB TRANSVAGINAL Routine 10/16/2024 1: 06 PM EDT Missed menses from Last 3 Months Results * POCT urinalysis dipstick manually resulted (12/04/2024 10:27 AM EDT) Only the most recent of3 resultswithin the time period is included. Color, UA Yellow Clarity, UA Clear Glucose, UA Negative Negative - 2000(110) ++++ mg/dL Bilirubin, UA Negative Negative - [...] Positive Urine 12/04/2024 10:2 7 AM EDT [facility] Jenny DO POINT OF CARE TEST ENTER/EDIT OR DERABLES Final Result * Urine culture (11/13/2024 4:39 PM EDT) Urine Urine specimen obtained by clean catch procedure / Unknown [facility] DO LAB MICROBIOLOGY - GENERAL ORDER ALVIN Final Result EXTERNAL LAB * BOX TEST (11/11/2024 11:26 AM EDT) BOX TEST SENT OUT [facility] BOX1 [facility] [address]OX2 11/11/24 [facility] 11/11/2024 11:2 6 AM EDT 11/11/2024 11:41 AM EDT Narrative [facility] - 11/11/2024 11:46 AM EDT [place] [facility] Scooby Jenny DO LAB BLOOD ORDERABLES Final Resul t Performing Organization Address [facility] Co de Phone Number [facility] * HBSAG SCREEN (11/11/2024 11:26 AM EDT) [facility] HBSAG SCREEN Negative Negative [facility] Comment: Performed at: [address] [id number] Rail Project Engineer: Lars Cordova PhD, Phone: [phone] 11/11/2024 11:2 6 AM EDT 11/11/2024 11:41 AM EDT Narrative [facility] - 11/12/2024 11:10 AM EDT Scooby Jenny DO LAB BLOOD ORDERABLES Final Resul t Performing Organization Address [facility] Phone Number [facility] * RAPID PLASMA REAGIN, QUANT (11/11/2024 11:26 AM EDT) [facility] RAPID PLASMA REAGIN, QUANT Non Reactive NonRea<1: 1 titer [facility] Comment: Please Note: This test does not meet current guidelines for screening and diagnosis of syphilis. This test is intended for following treatment response in patients being treated for syphilis infection. To screen for syphilis infection, a reflex cascade that includes both RPR and a treponema-specific assay should be utilized, such as Treponema pallidum (Syphilis) Screening [place] (259591) or Rapid Plasma Reagin (RPR) Test With Reflex to Quantitative RPR and Confirmatory Treponema pallidum Antibodies ([id number]). Performed at: [address] [id number] Rail Project Engineer: Lars Cordova PhD, Phone: [phone] 11/11/2024 11:2 6 AM EDT 11/11/2024 11:41 AM EDT Narrative [facility] - 11/12/2024 11:10 AM EDT Scooby Jenny DO LAB BLOOD ORDERABLES Final Resul t Performing Organization Address [facility] Co de Phone Number [facility] * HIV AB/P24 AG WITH REFLEX (11/11/2024 11:26 AM EDT) Pathologist [facility] HIV AB/P24 AG SCREEN Non Reactive Non Reactive [facility] Comment: HIV-1/HIV-2 antibodies and HIV-1 p24 antigen were NOT detected. There is no laboratory evidence of HIV infection. HIV Negative Performed at: [address] [id number] Rail Project Engineer: Lars Cordova PhD, Phone: [phone] 11/11/2024 11:2 6 AM EDT 11/11/2024 11:41 AM EDT Narrative [facility] - 11/12/2024 5:08 AM EDT us Scooby Jenny DO LAB BLOOD ORDERABLES Final Resul t Performing Organization Address [facility] Co de Phone Number [facility] * HCV ANTIBODY RFX TO QUANT PCR (11/11/2024 11:26 AM EDT) [facility] HCV AB Non Reactive Non Reactive [facility] INTERPRETATION: Comment . [facility] Comment: Not infected with HCV unless early or acute infection is suspected (which may be delayed in an immunocompromised individual), or other evidence exists to indicate HCV infection. Performed at: [address] [id number] Rail Project Engineer: Lars Cordova PhD, Phone: [phone] 11/11/2024 11:2 6 AM EDT 11/11/2024 11:41 AM EDT [facility] 11/12/2024 7:08 AM EDT us Scooby Jenny DO LAB BLOOD ORDERABLES Final Resul t Performing Organization Address City/[facility]/ZIP Co de Phone Number [facility] * MLR HEMOGLOBIN A1C (11/11/2024 11:26 AM EDT) [facility] GLYCOHEMOGLOBIN A1C 6.0 4.5 - 6.2 % [facility] Comment: ADA RECOMMENDED LIMIT 4.0 - 6.0 ADA THERAPEUTIC TARGET < 7.0 ACTION SUGGESTED > 7.0 ESTIMATED AVERAGE GLUCOSE 126 mg/dL TB 11/11/2024 11:2 6 AM EDT 11/11/2024 11:41 AM EDT Narrative [facility] - 11/11/2024 12:30 PM EDT Scooby Jenny DO CLINISYNC Final Result Performing Organization Address [facility]/ZIP Co de Phone Number [facility] * ALL TYPE AND SCREEN (11/11/2024 11:26 AM EDT) Pathologist [facility] BLOOD TYPE A Positive [facility] ANTIBODY SCREEN NEGATIVE TB 11/11/2024 11:2 6 AM EDT 11/11/2024 11:41 AM EDT Narrative [facility] - 11/11/2024 1:08 PM EDT [facility] , Scooby Jenny DO CLINISYNC Final Result Performing Organization Address [facility] Co de Phone Number [facility] * ALL RUBELLA IGG AB (11/11/2024 11:26 AM EDT) Pathologist [facility] RUBELLA ANTIBODIES, IGG 1.62 Immune >0.99 index [facility] Comment: Non-immune <0.90 Equivocal 0.90 - 0.99 Immune >0.99 Performed at: [facility] [address] [id number] Rail Project Engineer: Lars Cordova PhD, Phone: [phone] 11/11/2024 11:2 6 AM EDT 11/11/2024 11:41 AM EDT Narrative [facility] - 11/12/2024 7:08 AM EDT Scooby Jenny DO CLINISYNC Final Result Performing Organization Address [facility] Co de Phone Number [facility] * (ABNORMAL) ALL CBC WITH AUTO DIFF (11/11/2024 11:26 AM EDT) [facility] WBC 12.6(H) 4.0 - 11.0 10 3/uL TBH TBH RBC 4.25 4.20 - 5.40 10 6/uL TBH TBH HGB 11.8(L) 12.0 - 16.0 g/dL TBH TBH HCT 35.7(L) 36.0 - 48.0 % TBH TBH MCV 84.0 81.0 - 99.0 fL TBH TBH MCH 27.8 26.7 - 34.0 pg TBH TBH MCHC 33.1 29.9 - 35.2 g/dL TBH TBH RDW 14.5 11.0 - 15.0 % TBH TBH PLT 284 150 - 450 10 3/uL TBH TBH MPV 9.8 9.5 - 13.5 fL TBH NEUTROPHILS PERCENT AUTO 66.2 43.0 - 75.0 % TBH LYMPHOCYTES PERCENT AUTO 25.9 20.5 - 60.0 % TBH MONOCYTES PERCENT AUTO 6.2 1.7 - 12.0 % TBH TBH EO % 1.0 0.9 - 7.0 % TBH BASOPHILS PERCENT AUTO 0.2 0.2 - 2.0 % TBH IMMATURE GRANULOCYTES PCT AUTO 0.5 0.0 - 0.5 % TBH NEUTROPHILS ABSOLUTE AUTO 8.3(H) 1.4 - 6.5 10 3/uL TBH LYMPHOCYTES ABSOLUTE AUTO 3.3 1.2 - 3.8 10 3/uL TBH MONOCYTES ABSOLUTE AUTO 0.8 0.3 - 0.8 10 3/uL TBH TBH EO # 0.1 0.0 - 0.7 10 3/uL TBH BASOPHILS ABSOLUTE AUTO 0.0 0.0 - 0.1 10 3/uL TBH IMMATURE GRANULOCYTES ABS AUTO 0.06(H) 0.00 - 0.03 10 3/uL TBH 11/11/2024 11:2 6 AM EDT 11/11/2024 11:41 AM EDT Narrative [facility] - 11/11/2024 11:57 AM EDT us Scooby Jenny DO CLINISYNC Final Result [facility] TB * TB DRUG SCREEN RAPID (URINE) (11/11/2024 11:15 AM EDT) CANNABINOID SCREEN URINE NEGATIVE NEGATIVE TBH PHENCYCLIDINE SCREEN URINE NEGATIVE NEGATIVE TBH COCAINE SCREEN URINE NEGATIVE NEGATIVE TBH METHAMPHETAMINES SCREEN URINE NEGATIVE NEGATIVE TBH OPIATE SCREEN URINE NEGATIVE NEGATIVE TBH AMPHETAMINE SCREEN URINE NEGATIVE NEGATIVE TBH BENZODIAZEPINES SCREEN URINE NEGATIVE NEGATIVE TBH TRICYCLIC ANTIDEPRESSANT URINE NEGATIVE NEGATIVE TBH METHADONE SCREEN URINE NEGATIVE NEGATIVE TBH BARBITURATES SCREEN URINE NEGATIVE NEGATIVE TBH OXYCODONE SCREEN URINE NEGATIVE NEGATIVE TBH BUPRENORPHINE SCREEN URINE NEGATIVE NEGATIVE TBH Comment: DRUG CLASS TEST SYSTEM CUT-OFF CONCENTRATIONS ARE FOLLOWS: AMP (Amphetamine): 500 ng/mL BAR (Barbiturates): 200 ng/mL BZO (Benzodiazepines): 150 ng/mL BUP (Buprenorphine): 10 ng/mL TAMICA (Cocaine): 150 ng/mL mAMP (Methamphetamine): 500 ng/mL MTD (Methadone): 200 ng/mL OPI (Opiates): 100 ng/mL OXY (Oxycodone): 100 ng/mL PCP (Phencyclidine): 25 ng/mL THC (Cannabinoids): 50 ng/mL TCA (Trycyclic Antidepressants): 300 ng/mL 11/11/2024 11:1 5 AM EDT 11/11/2024 11:41 AM EDT Narrative [facility] - 11/11/2024 12:08 PM EDT us Scooby Jenny DO CLINISYNC Final Result [facility] * (ABNORMAL) POCT , urine manually resulted (10/16/2024 2:42 PM EDT) Preg Test, Ur Positive Negative Urine 10/16/2024 2:42 PM EDT us Scooby Jenny DO POINT OF CARE TEST ENTER/EDIT OR DERABLES Final Result * US OB transvaginal (10/16/2024 1:06 PM EDT) Anatomical Region Laterality Modality Body Ultrasound 10/16/2024 11:2 2 PM EDT Narrative 10/16/2024 11:22 PM EDT EXAM: US OB TRANSVAGINAL HISTORY: Dating. A1. [...] fluid. Interpreted by: Electronically signed by EKATERINA CARROLL II, MD, PHD at 16-Oct-2024 11:21:08 PM [facility] Procedure Note Ekaterina Carroll MD - 10/16/2024 EXAM: US OB TRANSVAGINAL HISTORY: Dating. A1. LMP 07/29/2024. COMPARISON: None available. TECHNIQUE: Two-dimensional transabdominal grayscale and color Dopplerultrasound imaging of the pelvis was performed. Transvaginal ultrasoundwas performed. FINDINGS: The uterus demonstrates a normal homogeneous echotexture. The cervical osis closed. The right ovary measures 4.0 x 2.8 x 3.0 cm and demonstrates a normalechotexture. There is normal color Doppler flow. The left ovary measures 3.0 x 2.1 x 2.4 cm and demonstrates a normalechotexture. There is normal color Doppler flow. A small amount of fluid is present within the cul-de-sac. There is a single, live intrauterine gestation identified with a fetalheart rate of 179 beats per minute and a crown-rump length measurement of3.9 cm, correlating to a gestational age of 10 weeks 6 days (+/- 7 days).There is no subchorionic hemorrhage visualized. A yolk sac isvisualized. IMPRESSION: 1. Single, live intrauterine gestation 11 weeks, 2 days by LMP. Today'sultrasound measurements correlate with a gestational age of 10 weeks 6days (+/- 7 days). FAHEEM by today's ultrasound is May 08, 2025. 2. Small amount of cul-de-sac fluid. Interpreted by: Electronically signed by EKATERINA CARROLL II, MD, PHD 11:21:08 PM [facility] us Scooby Jenny DO IMG OB US PROCEDURES Final Resul t from Last 3 Months Insurance
--- OUTSIDE RECORDS SUMMARY | 2024-12-04 14:52 | XMS_ITS | Clinical Summary ---
Author Organization [employer] tem Address [id number] [place] [address] Care Team Providers Care Senior Ux Developer Name Role Phone No Pcp, No Pcp Primary Care Provider Unavailabl e Allergies No known active allergies Medications norgestimate-ethin yl estradioL (ORTHO-CYCLEN) 0.25-35 mg-mcg per tabletIndications: Encounter for contraceptive management, unspecified type Take 1 tablet by mouth daily. 56 tablet 1 0 Active Active Problems Problem Noted Date Diagnosed Date Miscarriage 12/20/2023 Estimated Date of Delivery Comme nts Yes 05/05/2025 Based on last me nstrual period of 07/29/2024 Encounters Date Type Department Care Team Description 12/04/2024 Telephone Maternal- Medicine at [facility] [address] [place] [phone] Rowena Hansen LD 11/24/2024 1:30 PM EDT Support Visit Maternal- Medicine at [facility] [address] [place] [phone] Oma Davis, RN Chinyere [address] RD Gestational diabetes mellitus (GDM) in second trimester, gestational diabetes method of control unspecified 11/24/2024 Travel 11/19/2024 Orders Only Maternal- Medicine at [facility] [address] [place] [address] Ref Prov, Not In System 11/19/2024 Abstract Maternal- Medicine at [facility] [address] [place] [address] Provider, Generic External Data from Last 3 Months Family History Medical History Relation Name Comments Diabetes Father Diabetes Mother Hypertension Mother Relation Name Status Comments Father Mother Alive Social History Tobacco Use Types Packs/Day Years [...] on file Sexual Orientation Not on file Last Filed Vital Signs Vital Sign Reading Time Taken Comments Blood Pressure 119/60 12/21/2023 9:47 AM EDT Pulse 54 12/21/2023 9:47 AM EDT Temperature 36.7 C (98.1 F) 12/21/2023 9:47 AM EDT Respiratory Rate 16 12/21/2023 9:47 AM EDT Oxygen Saturation 98% 12/20/2023 10:15 PM EDT Inhaled Oxygen Concentration - - Weight 85.7 kg (189 lb) 11/24/2024 3:59 PM EDT Height 157.5 cm (5' 2 ) 12/20/2023 7:47 PM EDT Body Mass Index 34.57 12/20/2023 7:47 PM EDT Plan of Treatment Health Maintenance Due Date Last Done Comments Depression Screening 2003 Adult BMI Follow Up Plan 2009 Pap Smear 2012 COVID-19 Vaccine (2023-2 5 season) 2024 08/15/2021, 12/16/2020, 11/16/2020 Tobacco Screening 12/20/2024 12/21/2023 Influenza Vaccine 02/23/2025 04/04/2024, , 04/01/2022, Additional history exists Adult BMI Screening 11/24/2025 11/24/2024 DTaP,Tdap and Td Vaccines (3 - Td or Tdap) 07/19/2031 07/19/2021, 07/11/2021 Medical Devices Not on file Procedures Procedure Name Priority Date/Time Associated Diagnosis Comments GLUCOSE RANDOM OR FASTING Routine 11/24/2024 Gestational diabetes mellitus (GDM) in second trimester, gestational diabetes method of control unspecified US PREG LMTD 1 OR MORE FETUS Routine 11/19/2024 4:13 PM EDT TYPE AND SCREEN Routine 11/11/2024 HEPATITIS B SURFACE ANTIGEN Routine 11/11/2024 DRUG SCREEN, URINE Routine 11/11/2024 CBC (NO DIFF) Routine 11/11/2024 HIV 1&2 AB/AG SCREEN (P24 AG) Routine 11/11/2024 RUBELLA IGG IMMUNE STATUS Routine 11/11/2024 SYPHILIS TOTAL(UNKNOWN SYPHILIS STATUS) Routine 11/11/2024 HEMOGLOBIN A1C Routine 11/11/2024 BASIC METABOLIC PANEL Routine 11/11/2024 from Last 3 Months Results * Glucose random or fasting- POCT (11/24/2024) External Glucose Fasting Or Random (Fbs) 94 MANUALLY TRANSCRIBED RESULTS Blood Venous blood / Unknown 11/24/2024 us Amaya Schroeder PA-C LAB BLOOD ORDERABLES Final Result Performing Organization Address City/[facility]/ZIP Co de Phone Number MANUALLY TRANSCRIBED RESULTS * Ultrasound limited 1 or more fetus (11/19/2024 4:13 PM EDT) Anatomical Region Laterality Modality OB-SALES CONSULTANT Ultrasound us Not In System Ref Prov IMG US ORDERABLES Final R esult * HIV 1&2 AB/AG Screen (P24 AG) (11/11/2024) HIV 1&2 AB/AG non reactive MAN UALLY TRANSCRIBED RESULTS Blood Venous blood / Unknown us Not In System Ref Prov LAB BLOOD ORDERABLES Rachael l Result Performing Organization Address City/[facility] Co de Phone Number MANUALLY TRANSCRIBED RESULTS * Rubella IGG immune status (11/11/2024) Rubella immune IgG non immune MANUALLY TRANSCRIBED RESULTS Blood Venous blood / Unknown us Not In System Ref Prov LAB BLOOD ORDERABLES Rachael l Result Performing Organization Address City/[facility]/ZIP Co de Phone Number MANUALLY TRANSCRIBED RESULTS * Syphilis Total (Unknown Syphilis Status) (11/11/2024) Syphilis non reactive MANUALL Y TRANSCRIBED RESULTS Blood Venous blood / Unknown us Not In System Ref Prov LAB BLOOD ORDERABLES Rachael l Result MANUALLY TRANSCRIBED RESULTS * Drug Screen, Urine (11/11/2024) Methadone negative MANUALLY TRANSCRIBED RESULTS Opiates negative MANUALLY TRANSCRIBED RESULTS Amphetamine/Methamp hetamine negative MANUALLY TRANSCRIBED RESULTS Cocaine Metabolite negative M ANUALLY TRANSCRIBED RESULTS Phencyclidine negative MANUAL LY TRANSCRIBED RESULTS Thc Marijuana, Urine negative MANUALLY TRANSCRIBED RESULTS Oxycodone negative MANUALLY TRANSCRIBED RESULTS Barbiturates negative MANUALL Y TRANSCRIBED RESULTS Benzodiazepines negative MANU ALLY TRANSCRIBED RESULTS Urine us Not In System Ref Prov URINE ORDERABLES Final Re sult Performing Organization Address [facility] Co de Phone Number MANUALLY TRANSCRIBED RESULTS * Hepatitis B surface antigen (11/11/2024) Hepatitis B Surface Antigen negative MANUALLY TRANSCRIBED RESULTS Blood Venous blood / Unknown us Not In System Ref Prov LAB BLOOD ORDERABLES Rachael l Result Performing Organization Address [facility] de Phone Number MANUALLY TRANSCRIBED RESULTS * CBC without diff (11/11/2024) Hemoglobin 11.8 MANUALLY TRANSCRIBED RESULTS Hematocrit 35.7 MANUALLY TRANSCRIBED RESULTS Rbc Mcv (Fl) By Automated Count 84.0 MANUALLY TRANSCRIBED RESULTS Platelets 284 MANUALLY TRANSCRIBED RESULTS Blood Venous blood / Unknown us Not In System Ref Prov LAB BLOOD ORDERABLES Rachael l Result Performing Organization Address [facility] de Phone Number MANUALLY TRANSCRIBED RESULTS * Type and screen (11/11/2024) Abo/Rh(D) A Positive MANUALLY TRANSCRIBED RESULTS Antibody Screen negative MANUALLY TRANSCRIBED RESULTS Blood Venous blood / Unknown us Not In System Ref Prov BLOOD BANK TEST ORDERABLE S Final Result Performing Organization Address [facility] Co de Phone Number MANUALLY TRANSCRIBED RESULTS * Hemoglobin A1c (11/11/2024) Hemoglobin A1C 6.0 4.0 - 6.0 % MANUALLY TRANSCRIBED RESULTS Blood Venous blood / Unknown us Scooby R Jenny DO LAB BLOOD ORDERABLES Final Resu lt MANUALLY TRANSCRIBED RESULTS * Basic Metabolic Panel (11/11/2024) Glucose 126 mg/dL MANUALLY TRANSCRIBED RESULTS Blood Venous blood / Unknown us Scooby Alvarado DO LAB BLOOD ORDERABLES Final Resu lt MANUALLY TRANSCRIBED RESULTS from Last 3 Months Insurance [facility] Advance Directives * Full Code (Latest Code Status on File) Date Activated Date Inactivated Comments 12/20/2023 11:13 PM 12/21/2023 1:46 PM Care Teams Senior Ux Developer Relationship Specialty Start Date End Date No Pcp, [place] [id number] PCP - General Family Medicine 12/19/23
--- OUTSIDE RECORDS SUMMARY | 2024-12-04 14:52 | XMS_ITS | Encounter Summary ---
Author Organization [employer] tem Address [facility] [id number] [address] [place] [address] Care Team Providers Care Air Control/Anti Air Warfare Officer Name Role Phone No Pcp, No Pcp Primary Care Provider Unavailabl e Encounter Details Date Type Department Care Team (Latest Contact Info) Description 11/24/2024 Travel Social History Tobacco Use Types Packs/Day Years [...] on file documented as of this encounter Plan of Treatment Not on file documented as of this encounter Visit Diagnoses Not on filedocumented in this encounter Care Teams Air Control/Anti Air Warfare Officer Relationship Specialty Start Date End Date No Pcp, [place] [address] PCP - General Family Medicine 12/19/23 documented as of this encounter
--- OUTSIDE RECORDS SUMMARY | 2024-12-04 14:52 | XMS_ITS | Patient Health Record ---
Author Organization [facility] vices Address [address] [place], [place] [id number] Care Team Providers Care Certified Endoscopy Technician Name Role Phone Pako Mays Unavailable [phone] [place] Unavailable [phone] Allergies No Known Allergies Results Component Value Reference Range Notes CBC W/AUTO DIFF Reviewed date:12/11/2023 02:44:03 PM Interpretation: Performing Lab: Notes/Report: WBC 10.5 3.5-11.0 K/uL RBC 4.59 3.80-5.40 M/uL HGB 13.0 11.5-15.5 g/dL HCT 39.4 34.0-45.0 % MCV 85.8 80.0-99.0 fL MCH 28.3 25.0-33.0 pg MCHC 33.0 31.0-36.0 g/dL RDW 13.0 11.5-15.0 % NEUTROPHILS 55.9 LYMPHOCYTES 35.3 MONOCYTES 6.8 EOSINOPHILS 1.1 BASOPHILS 0.6 IMMATURE GRAN 0.3 PLATELET 308 130-400 K/uL ABS NEUTROPHILS 5.85 1.50-7.50 K/uL ABS LYMPHOCYTES 3.69 1.00-4.00 K/uL ABS MONOCYTES 0.71 0.20-1.00 K/uL ABS EOSINOPHILS 0.12 0.00-0.50 K/uL ABS BASOPHILS 0.06 0.00-0.20 K/uL ABS IMMATURE GRAN 0.03 MPV 9.7 9.3-13.0 [facility] [address] [place] [address] CLIA No. [id number] [facility] Accreditation No. [id number] Policy And Planning Manager: Olimpia Valdez M.D. COMPREHENSIVE METABOLIC PANE L WITH GFR Reviewed date:12/11/2023 02:43:56 PM Interpretation: Performing Lab: Notes/Report: GLUCOSE 92 70-99 mg/dL BUN 7 6-20 mg/dL CREATININE, BLOOD 0.58 0.60-1.30 mg/dL eGFR (2020 CKD-EPI) 123 >60 mL/min/1.73 CALCIUM 9.9 8.5-10.5 mg/dL SODIUM 138 133-146 meq/L POTASSIUM 4.4 3.5-5.4 meq/L CHLORIDE 100 95-107 meq/L CO2 24 19-31 meq/L ANION GAP 14.0 7.0-16.0 meq/L T. BILIRUBIN 0.6 <=1.2 mg/dL ALK PHOS 75 40-114 U/L AST-SGOT 17 9-40 U/L ALT-SGPT 14 5-40 U/L T. PROTEIN 7.4 6.1-8.3 g/dL ALBUMIN 4.4 3.5-5.2 g/dL EBV COMPLETE SERIES Reviewed date:12/11/2023 02:44:11 PM Interpretation: Performing Lab: Notes/Report: TRISHA MONTES EA IGG <5.0 SEE BELOW U/ML EBV EARLY ANTIGEN IgG INTERPRETATION: NEGATIVE: No detectable antibody. U/ML <9.0 Usually in naive or remote prior infection. If recent exposure suspected, retest no sooner than 1-2 weeks. EQUIVOCAL: Consider retesting no sooner U/ML 9.0-10.9 than 1-2 weeks. POSITIVE: Detectable IgG antibody U/ML >=11.0 consistent with active or recent primary infection or reactivation. Test performed at [facility] [address] [place] [address], [place] [address] CLIA Number [id number] [facility] Accreditation Number [id number] -------- TRISHA MONTES NA IGG 454.0 SEE BELOW U/ML EBV NUCLEAR ANTIGEN IgG INTERPRETATION: NEGATIVE: No detectable antibody. If U/ML <18.0 recent exposure suspected, consider retest no sooner than 1-2 weeks. EQUIVOCAL: Consider retesting no sooner U/ML 18.0-21.9 than 1-2 weeks. POSITIVE: Detectable antibody consistent U/ML >=22.0 with current or past EBV exposure Test performed at [facility] [address] [place] [address] [place] Number [id number] [facility] Accreditation Number [id number] -------- TRISHA MONTES VCA IGG 108.0 SEE BELOW U/ML EBV VCA IgG INTERPRETATION: NEGATIVE: Absence of detectable U/ML <18.0 EBV VCA antibodies. EQUIVOCAL: Consider retesting in no U/ML 18.0-21.9 sooner than 1-2 weeks. POSITIVE: Detectable EBV VCA antibodies, U/ML >=22.0 consistent with current or prior EBV exposure. Test performed at [facility] [address] [place] [address] [place] Number [id number] [facility] Accreditation Number [id number] -------- TRISHA MONTES VCA IGM <10.0 SEE BELOW U/ML EBV VCA IgM INTERPRETATION: NEGATIVE: Absence of detectable U/ML <36.0 EBV VCA IgM. If recent exposure is expected, consider retesting in not fewer than 1-2 weeks. EQUIVOCAL: Consider retesting in no U/ML 36.0-43.9 sooner than 1-2 weeks. POSITIVE: Detectable EBV VCA IgM U/ML >=44.0 consistent with recent primary infection or reactivation. Should be used with other EBV serologies to confirm EBV infectious mononucleosis. Test performed at [facility]. [address] [place] [address] CLIA Number [id number] [facility] Accreditation Number [id number] -------- Reason For Referral No Information Medications Medication SIG (Take, Route, Frequency, Duration) Notes Start Date End Date Status Pantoprazole Sodium 40 MG 1 tablet Orally Once a day for 30 day(s) as needed 09/05/2021 Not-Taking Dicyclomine HCl 20 MG 1 tablet Orally Th ree times a day for 30 day(s) as needed 09/05/2021 Not-Taking Social History Sex Assigned At : Social History Observation Description Sex Assigned At Female Alcohol Screen (Audit-C) Question Answer Notes Did you have a drink containing alcohol in the p ast year? No Points 0 Interpretation Negative CAGE-AID Questionnaire (2018 Edition) Question Answer Notes Have you ever felt that you ought to cut down on your drinking or drug use? No patient entered data Have people annoyed you by c riticizing your drinking or drug use? No patient entered data Have you ever felt bad or gu ilty about your drinking or drug use? No patient entered data Have you ever had a drink or used drugs first thing in the morning to steady your nerves or to get rid of a hangover? No patient entered data CAGE-AID Score 0 Interpretation Negative PRAPARE Question Answer Notes Date Completed/Updated: 12/06/2023 bryan nt entered data What is your current housing situation? I have housing patient entered data Are you worried about losing your housing? No patient entered data What is the highest level of school that you have finished? 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 Check all that apply I do not have problems meeting my needs Has lack of transportation k ept you from medical appointments, meetings, work or from getting things needed for daily living? No How often do you see or talk to people that you care about and feel close to? (For example: talking to friends on the phone, visiting friends or family, going to sikh or club meetings) More than 5 times a week patient entered data How stressed are you? Stress is when someone feels tense, nervous, anxious, or can't sleep at night because their mind is troubled Not at all patient entered data In the past year have you sp ent more than 2 nights in a row in a usp, shelter, chcf center, or juvenile correctional facility? No patient entered maggy a Are you a refugee? No patient en tered data What country are you from? [place] marilu trivedi entered data Do you feel physically and emotionally safe where you currently live? Yes patient entered data In the past year, have you b een afraid of your partner or ex-partner? No patient entered data PRAPARE Score: 1 Tobacco Control (Standard) Question Answer Notes Additional Findings: Tobacco non-user Current no nsmoker Section Notes: Nutrition counseling focusin g on a low sodium and low sugar diet discussed with the patient, as well as appropriate weekly exercise and increased activity as tolerated to work towards a more optimal body mass index for improved overall health. Nutrition counseling focusin g on a low sodium and low sugar diet discussed with the patient, as well as appropriate weekly exercise and increased activity as tolerated to work towards a more optimal body mass index for improved overall health. Problems Problem Type SNOMED Code ICD Code Onset Dates Problem Status W/U Status Risk Notes Problem [id number] Irritable bowel syndrome with diarrhea (K58.0) Active confirmed Problem BMI 30+ - obesity (312921372) BMI 32.0-32.9,adul t (Z68.32) Active confirmed Problem Body mass index 30.00 to 34.99 (253246529920161 ) BMI 31.0-31.9,adul t (Z68.31) Active confirmed Problem Venereal disease screening (314912306) Screening for STD (sexually transmitted disease) (Z11.3) Active confirmed Problem Irritable bowel syndrome (45751846) IBS (irritable bowel syndrome) (K58.9) Active confirmed Comment:All labs H pylori Giardia and Entamobea negative, had a visit to [place] few months ago and symptoms of alternating diarrhea/constip ation started after that. Has dyspeptic symptoms too PPI and Dicyclomine for now, if no improvement then Calprotectin and Elastase in stool as well as rule out of osmotic diarrhea by osmolar gap and check of fat stool for steatorrhea, Problem Obesity complicating (649.10) (649.10) Active confirmed Comment:Counsele d about risks associated with obesity and including increased risk of gestational diabetes, gestational hypertention, pre-eclampsia, increased C/S rate, DVT, delivery, IUGR and IUFD secondary to TRESA, post-term gestation, increased risk of delivery related complications including shoulder dystocia . Patient advised to not gain more than 2-6 lbs in first trimester, TWG 11-20 lbs. 0.5lbs/wk in second and third trimester ., Problem Urine test negative (172174190) Encounter for test with result negative (V72.41) (V72.41) Active confirmed Problem Depression screening (695184641) Screening for depression (Z13.31) Active confirmed Description:Dep r ession screen Problem Removal of suture (14263395) Visit for suture removal (Z48.02) Active confirmed Comment:Sutures removed. Area cleansed with alcohol. Area was bandaged. Pt. advised to RTO for signs/ symptoms of infection including erythema, warmth, discharge from wound, fever or chills., Problem Sakpy-oku-akicq without malnutrition (609258625) Small for gestational age (764.00) (764.00) Active confirmed Problem Insertion of intrauterine contraceptive device (21437518) Encounter for IUD insertion (Z30.430) Active confirmed Comment:uterus retroverted, speculum inserted, cervix swabbed with betadine, single toothed tenaculum applied to anterior lip of cervix, uterus sounded to 8 cm, IUD placed without difficulty, strings cut 2 cm from os, good hemostasis noted, pt tolerated procedure well., Problem Janeth onychomycosis (B37.2) Active confirmed Description:Can d idiasis of nails Problem Upper respiratory infection (18883794) URI (upper respiratory infection) (J06.9) Active confirmed Comment:alyssa faith observe. otc supp therapy. f/u if sxs got worse,Story:she had sore throat o the last t wo days.no f c n v. she took supportive therapu. wet to Er got some meds., Problem Urinary tract infection in (976441390) UTI in (O23.40) Active confirmed Comment:pt on antibiotics, Problem Diarrhea (27019000) Diarrhea (R19.7) Active confirmed Problem Mass of lower limb (535366841) Mass of right lower leg (R22.41) Active confirmed Problem Poor weight gain of (646.80) (646.80) Active confirmed Comment:discusse d increase po intake, insufficient weight gain can lead to SGA, IUGR. Monitor weight. will order growth ultrasound, Problem Gynecologic examination (21856272) Visit for gynecologic examination (Z01.419) Active confirmed Comment:last pap 10/01/2012 - neg, hpv neg encouraged self breast exams, Problem Injury (392461010) Contusion of soft tissue (T14.8) Active confirmed Comment:REFER t o Orthopedic surgery - In [place] on [address], Problem Normal (73029467) SUPERVISION, OTHER NORMAL (V22.1) (V22.1) Active confirmed Problem Dyspepsia (836626777) Dyspepsia (R10.13) Active confirmed Problem Abnormal glucose tolerance in mother complicating , childbirth AND/OR puerperium (10133901) Abnormal glucose tolerance in mother complicating (648.80) (648.80) Active confirmed Comment:1 hr GT T - 165, 3 hr normal, Problem Contraceptive intrauterine device check (553408304) IUD check up (Z30.431) Active confirmed Comment:strings trimmed as partner feels it during intercourse, discussed risks if trim too short of migration, Problem Asymptomatic bacteriuria in (26167942) Asymptomatic bacteriuria in (O23.40) Active confirmed Problem Breast lump (25000585) Breast mass seen on mammogram (N63.0) Active confirmed Problem Delivery normal (10258127) Delivery normal (O80) Active confirmed Comment:Pregnanc y ended in chart. eds 09/21 had menses, has not resumed intercourse breast feeding desires ocp, Problem Poor growth affecting management (555746637) Small for gestational age fetus affecting mother, antepartum (O36.5990) Active confirmed Problem Normal (66989734) Encounter for supervision of normal (Z34.90) Active confirmed Comment:GC/CC neg, pap - nl taking PNV 1 hr elevated, 3 hr GTT normal pt had episode of oligohydramnios megha 5cm, s/p IVF hydration, improved megha, repeat megha normal in setting of IUGR and decreased movement, (pt states has to shake baby to make it move), will induce,Story:22 y.o @ 39.3 wks by 10 wk office US ( CRL 3.64cm on 10/01/2012) not commensurate with L. POB: FTSVD @ 40 wks , male, 8lb2oz, 2010 , @ [facility]. PMH : obesity PSH: denies PGYN: denies Meds: PNV NKDA Sochx: neg x 3., Problem IUGR - Intrauterine growth retardation (65795095) IUGR (intrauterine growth restriction) (764.90) Active confirmed Comment:US done 03/31/13 baby was 33.4 weeks 5lbs 12 oz, 4%ile, megha normal discussed findings with pt, started antepartum testing. Umbilical artery dopplers normal pt complaints of decreased movement, will induce today, Problem Ovarian cyst complicating , antepartum (O34.80) Active confirmed Comment:4.7x2.8 x 3.3 cm on right ovary, Problem Contraception care education (453714187) Family planning advice (Z30.09) Active confirmed Comment:pt late for depo window, preg test negative, received depo today discussed importance of compliance,Descr iption:CONTRACEP TIVE COUNSELING NEC Problem Breast lump (81895048) Left breast lump (611.72) (611.72) Active confirmed Comment:Instruc t ed to use all medication as prescribed, obtain diagnostic mammogram, return after mammogram is preformed or sooner as needed is symptoms worsen or do not get better. Patient verbalizes and agrees with plan of care., Problem Oligohydramnios (71196588) Decreased amniotic fluid (O41.00X0) Active confirmed Comment:pt to go to hospital for IV fluid hydration, repeat megha 11.1. Pt to have repeat megha on following sunday 10.7, normal bladder. measuring S< D, will order growth and megha,Description: Oligohydramnios Problem Breast lump (92280464) Breast mass in female (N63.0) Active confirmed Comment:left breast at 10-11 oclock - unchanged in size right breast at 12 oclock - uncahnged in size 2 masses seen on right, 1 mass on left , appear to be benign fibroadenomas, repeat bilateral breast ultrasound in 6 months, scheduled this month, pt declines removal, desires to continue to monitor with self breast exams, Problem Cellulitis (586602551) Cellulitis and abscess (L03.90) Active confirmed Problem Cyst of graafian follicle (6796600) Cyst of Graafian follicle (N83.00) 2008 Problem resolved confirmed Description:Foll icular cyst of ovary Problem Acute streptococcal pharyngitis (3146585700) Acute streptococcal pharyngitis (J02.0) 2009 Problem resolved confirmed Description:Stre ptococcal sore throat Problem Left lower quadrant pain (174249601) Abdominal pain, left lower quadrant (789.04) (789.04) 2008 Problem resolved confirmed Problem Dysmenorrhea (676492627) Adolescent dysmenorrhea (N94.6) 2007 Problem resolved confirmed Description:Dysm enorrhea Problem General examination of patient (033925102) Routine general medical examination at a health care facility (V70.0) (V70.0) 2007 Problem resolved confirmed Problem Polycystic bilateral ovaries (disorder) (687330633) Bilateral polycystic ovarian syndrome (E28.2) 2008 Problem resolved confirmed Description:Poly cystic ovaries Problem Sinusitis, acute (461.) (461) 2008 Problem resolved confirmed Problem Urinary tract infectious disease (32648774) Infection of urinary tract (N39.0) 2009 Problem resolved confirmed Description:Urin emily tract infection Problem Obesity (disorder) (184753106) Overweight and obesity (E66.3) 2007 Problem resolved confirmed Problem Cyst of ovary (50755099) Cyst of ovary (N83.20) 2008 Problem resolved confirmed Description:Ovar jean cyst Vital Signs Heart Rate 71 /min 09/02/2024 Temperature 98.7 degrees Fahrenheit 12/06/2023 Mag Cox 12/06/2023 03:57:44 PM EDT > Respiratory Rate 18 /min 12/06/2023 Rich Beltran 12/06/2023 03:57:44 PM EDT > Blood pressure diastolic 96 mm Hg 09/02/2024 Oximetry 99 % 12/06/2023 Mag Beltran 12/06/2023 03:57:44 PM EDT > Height-cm 162.56 cm 09/02/2024 Weight-kg 83.92 kg 09/02/2024 Height 64.00 in 09/02/2024 Blood pressure systolic 142 mm Hg 09/02/2024 Weight 185 lbs 09/02/2024 BMI 31.75 kg/m2 09/02/2024 Procedures Procedure Date Ordered Date Performed Result Body Sit e Strep Screen 12/06/2023 12/06/2023 N/A Encounters Encounter Location Date Provider Diagnosis Main [address] [place], [place] [id number] 12/06/2023 [place] Sore throat J02.9 ; Cervical lymphadenopathy R59.0 ; Dietary counseling Z71.3 ; Exercise counseling Z71.82 and BMI 31.0-31.9,adult Z68.31 [facility] [address], [place] [id number] 07/16/2024 Pako Mays BMI 32.0-32.9,adul t Z68.32 ; Dietary counseling Z71.3 ; Exercise counseling Z71.82 ; Encounter for screening for dental disorders Z13.84 and Encounter for dental examination and cleaning without abnormal findings Z01.20 Dental [facility] [address], [place] [id number] 09/02/2024 Pako Mays Encounter for dent al examination and cleaning without abnormal findings Z01.20 and Obesity, Class I, BMI 30-34.9 E66.811 Main [address] [place], [place] [id number] 12/07/2023 [place] Main [address] [place], [place] [id number] 12/11/2023 [place] Assessments Encounter Date Diagnosis (ICD Code) Assessment Notes Treatment Notes Treatment Clinical Notes Section Notes 12/06/2023 Sore throat (ICD-10 - J02.9) -Strep -VE 12/06/2023 Cervical lymphadenopathy (ICD-10 - R59.0) -CW hydration, gargles, rest, warm compresses and PRN NSAID use -possible EBV / Monos, ordered labs, f/u if no improvement in sxs, PVU 07/16/2024 BMI 32.0-32.9,adult (ICD-10 - Z68.32) 09/02/2024 Encounter for dental examination and cleaning without abnormal findings (ICD-10 - Z01.20) 09/02/2024 Obesity, Class I, BMI 30-34.9 (ICD-10 - E66.811) 07/16/2024 Dietary counseling (ICD-10 - Z71.3) 12/06/2023 Dietary counseling (ICD-10 - Z71.3) 12/06/2023 Exercise counseling (ICD-10 - Z71.82) 07/16/2024 Exercise counseling (ICD-10 - Z71.82) 12/06/2023 BMI 31.0-31.9,adult (ICD-10 - Z68.31) 07/16/2024 Encounter for screening for dental disorders (ICD-10 - Z13.84) 07/16/2024 Encounter for dental examination and cleaning without abnormal findings (ICD-10 - Z01.20) Plan Of Treatment No Information Insurance Providers Payer Name Payer Address Payer Phone Subscriber Number Group Number Insured Name Patient Relationship to Insured Coverage Start Date Coverage End Date [employer] [address] [place] [address] [phone] [id number] Zac Mosqueda Spouse - patient is the spouse of the insured 3 R [address] [address] [place], [place] [phone] [phone] [id number] Zac Mosqueda Spouse - patient is the spouse of the insured 2 Medical (General) History Medical History History ICD Code Abdominal pain, left lower quadrant (789 .04) Acute streptococcal pharyngitis Adolescent dysmenorrhea Bilateral polycystic ovarian syndrome Cyst of Graafian follicle, DESCRIPTION: Follicular cyst of ovary Cyst of ovary Infection of urinary tract Asthma Overweight and obesity Routine general medical examination at a health care facility (V70.0) Sinusitis, acute (461.) Surgical History Surgery Date(Month/Year)
--- OUTSIDE RECORDS SUMMARY | 2024-12-04 14:52 | XMS_ITS | Encounter Summary ---
Author Organization [facility] Address [address] [place] [address] Care Team Providers Care Automobile Brakes Bonder Name Role Phone Unavailable Primary Care Provider Unavailabl e Encounter Details Date Type Department Care Team (Late st Contact Info) Description 11/13/2024 Results Follow-Up [facility] [address] [address] Viola Washington LPN [address] [employer] [place] [phone] Social History Tobacco Use Types Packs/Day Years [...] AM EST documented as of this encounter Miscellaneous Notes * Result Encounter Note - Viola Washington LPN - 11/13/2024 12:03 PM EDT Pt told at appointment documented in this encounter Plan of Treatment Upcoming Encounters Date Type Department Care Team (Late st Contact Info) Description 01/01/2025 1:30 PM EDT Routine [facility] [address] [place] [id number] Deborah Kwan PA [address] [place] [address] documented as of this encounter Visit Diagnoses Not on filedocumented in this encounter
--- OUTSIDE RECORDS SUMMARY | 2024-12-04 14:52 | XMS_ITS | Encounter Summary ---
Author Organization [facility] [employer] [facility] tem Address [facility]-[id number] [address] [place] [address] Care Team Providers Care Cattle Dehorner Name Role Phone No Pcp, No Pcp Primary Care Provider Unavailabl e Encounter Details Date Type Department Care Team (Late st Contact Info) Description 11/19/2024 Abstract Maternal- Medicine at [facility] [address] [place] [phone] Provider, Generic External Data Social History Tobacco Use Types Packs/Day Years [...] Procedure Name Priority Date/Time Associated Diagnosis Comments HIV 1&2 AB/AG SCREEN (P24 AG) Routine 11/11/2024 RUBELLA IGG IMMUNE STATUS Routine 11/11/2024 SYPHILIS TOTAL(UNKNOWN SYPHILIS STATUS) Routine 11/11/2024 DRUG SCREEN, URINE Routine 11/11/2024 HEPATITIS B SURFACE ANTIGEN Routine 11/11/2024 CBC (NO DIFF) Routine 11/11/2024 TYPE AND SCREEN Routine 11/11/2024 HEMOGLOBIN A1C Routine 11/11/2024 BASIC METABOLIC PANEL Routine 11/11/2024 documented in this encounter Results * Hepatitis B surface antigen (11/11/2024) Hepatitis [...] ORDERABLES Final Re sult Performing Organization Address City/[facility]/ZIP Co de Phone Number MANUALLY TRANSCRIBED RESULTS * CBC without diff (11/11/2024) Hemoglobin 11.8 MANUALLY TRANSCRIBED RESULTS Hematocrit 35.7 MANUALLY TRANSCRIBED RESULTS Rbc Mcv (Fl) By Automated Count 84.0 MANUALLY TRANSCRIBED RESULTS Platelets 284 MANUALLY TRANSCRIBED RESULTS Blood Venous blood / Unknown us Not In System Ref Prov LAB BLOOD ORDERABLES Rachael l Result Performing Organization Address City/[facility]/[place] Co de Phone Number MANUALLY TRANSCRIBED RESULTS * HIV 1&2 AB/AG Screen (P24 AG) (11/11/2024) HIV 1&2 AB/AG non reactive MAN UALLY TRANSCRIBED RESULTS Blood Venous blood / Unknown us Not In System Ref Prov LAB BLOOD ORDERABLES Rachael l Result Performing Organization Address [facility]/[place] Co de Phone Number MANUALLY TRANSCRIBED RESULTS * Type and screen (11/11/2024) Abo/Rh(D) A Positive MANUALLY TRANSCRIBED RESULTS Antibody Screen negative MANUALLY TRANSCRIBED RESULTS Blood Venous blood / Unknown us Not In System Ref Prov BLOOD BANK TEST ORDERABLE S Final Result Performing Organization Address [facility]/[place] Co de Phone Number MANUALLY TRANSCRIBED RESULTS * Rubella IGG immune status (11/11/2024) Rubella immune IgG non immune MANUALLY TRANSCRIBED RESULTS Blood Venous blood / Unknown us Not In System Ref Prov LAB BLOOD ORDERABLES Rachael l Result Performing Organization Address City/[facility]/[place] Co de Phone Number MANUALLY TRANSCRIBED RESULTS * Syphilis Total (Unknown Syphilis Status) (11/11/2024) Syphilis non reactive MANUALL Y TRANSCRIBED RESULTS Blood Venous blood / Unknown us Not In System Ref Prov LAB BLOOD ORDERABLES Rachael l Result MANUALLY TRANSCRIBED RESULTS * Hemoglobin A1c (11/11/2024) Hemoglobin A1C 6.0 4.0 - 6.0 % MANUALLY TRANSCRIBED RESULTS Blood Venous blood / Unknown us Scooby R Jenny DO LAB BLOOD ORDERABLES Final Resu lt Performing Organization Address City/[facility]/ZIP Co de Phone Number MANUALLY TRANSCRIBED RESULTS * Basic Metabolic Panel (11/11/2024) Glucose 126 mg/dL MANUALLY TRANSCRIBED RESULTS Blood Venous blood / Unknown us Scooby R Jenny DO LAB BLOOD ORDERABLES Final Resu lt Performing Organization Address [facility]/[place] Co de Phone Number MANUALLY TRANSCRIBED RESULTS documented in this encounter Visit Diagnoses Not on filedocumented in this encounter Care Teams Cattle Dehorner Relationship Specialty Start Date End Date No Pcp, [place] [address] PCP - General Family Medicine 12/19/23 documented as of this encounter
--- OUTSIDE RECORDS SUMMARY | 2024-12-04 14:52 | XMS_ITS | Encounter Summary ---
Author Organization [facility] Address [address] [facility] [place] [address] Care Team Providers Care Wax Pot Tender Name Role Phone EppsJihan do Paco RESEARCH ADVISOR Unavailable [phone] Encounter Details Date Type Department Care Team (Late st Contact Info) Description 12/14/2023 Clinisync Result Encounter [facility] External Department Unsolicited Hector Alvarado DO [address] [place] [address] Social History Tobacco Use Types Packs/Day Years Used Date Smoking Tobacco: Never Assessed Comments Unknown Sex and Gender Information Value Date Recorded [...] PM EDT Routine [facility] BCP OB [address] [place] [phone] Deborah Kwan PA [address] [place] [address] documented as of this encounter Procedures Procedure Name Priority Date/Time Associated Diagnosis Comments US OB TRANSVAGINAL 12/14/2023 9: 53 AM EDT documented in this encounter Results * US OB TRANSVAGINAL (12/14/2023 9:53 AM EDT) Anatomical Region Laterality Modality Other 12/14/2023 9:53 AM EDT Narrative 12/14/2023 9:56 [place] [address] Ultrasound Report Signed Patient: PRISCILLA MOSQUEDA MR#: [id number] : 1990 Acct:[id number] Age/Sex: 33 / F ADM Date: 12/14/23 Loc: [facility] Attending Dr: Hector Alvarado D.O. Ordering Physician: Hector Alvarado D.O. Date of Service: 12/14/23 Procedure(s): US OB transvaginal Accession Number(s): [id number] cc: [facility] ; Hector Alvarado D.O. [place] [id number] Patient Name: PRISCILLA MOSQUEDA MRN: [id number] date: 1990 Sex: F Assigned Patient Location: [facility] Current Patient Location: [facility] Accession/Order Number: [id number] Exam Date: 12/14/2023 09:01 Report Date: 12/14/2023 09:53 At the request of: HECTOR ALVARADO Procedure: US OB transvaginal EXAMINATION: US OB transvaginal HISTORY: MISSED MENSES COMPARISON: No relevant comparison available. FINDINGS: Area of anechoic echogenicity identified within the endometrial cavity measuring 3.1 x 1.3 x 2.7 cm with a mean sac diameter of 2.36 with a mean sac diameter of 2.4 cm, 7 weeks 0 days No pole or yolk sac is observed. Cervix: Closed, 4.5 cm The uterus is normal in size, contour and echotexture. The ovaries are normal. US/US OB transvaginal IMPRESSION: Anechoic echogenicity in the endometrial cavity consistent with a gestational sac. No pole or yolk sac. An embryonic favored, since the mean sac diameter is below 25 mm follow-up in 2 weeks is recommended Electronically authenticated by: NADIA DOOLEY Date: 12/14/2023 09:53 Dictated By: Nadia Dooley M.D. Signed By: 12/14/2356 DD/ 2 TD/TT: Critical Care Cns: Procedure Note Radiology, Radiologist, - 12/14/2023 [place] [address] Ultrasound Report Signed Patient: PRISCILLA MOSQUEDAMR#: [id number] : 1990Acct:[id number] Age/Sex: 33 / FADM Date: 12/14/23 Loc: [facility] Attending Dr: Hector Alvarado D.O. Ordering Physician: Hector Alvarado D.O. Date of Service: 12/14/23 Procedure(s): US OB transvaginal Accession Number(s): [id number] cc: [facility] ; Hector Alvarado D.O. [place] [address] Patient Name: PRISCILLA MOSQUEDA MRN: [id number] date: 1990 Sex: F Assigned Patient Location: [facility] Current Patient Location: [facility] Accession/Order Number: [id number] Exam Date: 12/14/2023 09:01 Report Date: 12/14/2023 09:53 At the request of: HECTOR ALVARADO Procedure: US OB transvaginal EXAMINATION: US OB transvaginal HISTORY: MISSED MENSES COMPARISON: No relevant comparison available. FINDINGS: Area of anechoic echogenicity identified within the endometrial cavity measuring 3.1 x 1.3 x 2.7 cm with a mean sac diameter of 2.36 with a meansac diameter of 2.4 cm, 7 weeks 0 days No pole or yolk sac is observed. Cervix: Closed, 4.5 cm The uterus is normal in size, contour and echotexture. The ovaries are normal. US/US OB transvaginal IMPRESSION: Anechoic echogenicity in the endometrial cavity consistent with agestational sac. No pole or yolk sac. An embryonic favored, since themean sac diameter is below 25 mm follow-up in 2 weeks is recommended Electronically authenticated by: NADIA DOOLEY Date: 12/14/2023 09:53 Dictated By: Nadia Dooley M.D. Signed By:12/14/2356 DD/ TD/TT: Critical Care Cns: us Hector Jenny DO [facility] Final Result documented in this encounter Visit Diagnoses Not on filedocumented in this encounter Care Teams Wax Pot Tender Relationship Specialty Start Date End Date Jihan Epps NP [address] [place] [address] PCP - [facility] [employer] CONTROLLER 09/24/23 12/23/23 documented as of this encounter
--- OUTSIDE RECORDS SUMMARY | 2024-12-04 14:52 | XMS_ITS | Encounter Summary ---
Author Organization [facility] Address [address] [place] [address] Care Team Providers Care Underwriter Solicitation Director Name Role Phone Unavailable Primary Care Provider Unavailabl e Encounter Details Date Type Department Care Team (Late st Contact Info) Description 12/04/2024 Bamboo flowsheet [facility] OB [address] [address] Scooby Alvarado DO [address] [place], [place] [address] Social History Tobacco Use Types Packs/Day Years [...] PM EDT Routine [facility] BCP OB [address] [address] Deborah Kwan PA [address] [place], [facility]11 documented as of this encounter Visit Diagnoses Not on filedocumented in this encounter
--- OUTSIDE RECORDS SUMMARY | 2024-12-04 14:52 | XMS_ITS | Encounter Summary ---
Author Organization [facility] Address [address] [place] [address] Care Team Providers Care Breakfast Hostess Name Role Phone Unavailable Primary Care Provider Unavailabl e Encounter Details Date Type Department Care Team (Latest Contact Info) Description 12/04/2024 Travel Social History Tobacco Use Types Packs/Day [...] PM EDT Routine [facility] BCP OB [address] [place] [address] Deborah Kwan PA [address] [place], [place] [address] documented as of this encounter Visit Diagnoses Not on filedocumented in this encounter
--- OUTSIDE RECORDS SUMMARY | 2024-12-04 14:52 | XMS_ITS ---
Author Organization [facility] Source Produ ction (ClinicalSummary Clone) Address Unknown Care Team Providers Care Family Court Justice Name Role Phone Unavailable Primary Care Physician Unavailab le Results * [UNITY] ANEUPLOIDY NIPT Performed by: [employer] Component Value Range Date Fraction 5.2% 11/17/2024 03 :47 pm UTC Rh(D) NIPT RhD DETECTED 11/17/2024 03:4 7 pm UTC Sex Chromosome Aneuploidy NOT DETECTED 03:47 pm UTC Monosomy X LOW RISK <1 in 10,000 2024 03:47 pm UTC Trisomy 13 LOW RISK <1 in 10,000 2024 03:47 pm UTC Trisomy 18 LOW RISK <1 in 10,000 2024 03:47 pm UTC Trisomy 21 LOW RISK <1 in 10,000 2024 03:47 pm UTC Sex MALE 11/17/2024 03:4 7 pm UTC Gestation ROSAS 11/18/19 03:47 pm UTC For detailed report, see PDF See PDF 11/17/2024 03:47 pm UTC 11/17/2024 03:4 7 pm UTC Social History Observation Value Start Date End Date
--- OUTSIDE RECORDS SUMMARY | 2024-12-04 14:52 | XMS_ITS | Encounter Summary ---
Author Organization [facility] [facility] tem Address [facility][id number] [address] [place] [address] Care Team Providers Care Healthcare Consulting Manager Name Role Phone No Pcp, No Pcp Primary Care Provider Unavailabl e Encounter Details Date Type Department Care Team (Late st Contact Info) Description 11/19/2024 Orders Only Maternal- Medicine at [facility] [address] [place] [address] Ref Prov, [place] [address] Social History Tobacco Use Types Packs/Day Years [...] Name Priority Date/Time Associated Diagnosis Comments US PREG LMTD 1 OR MORE FETUS Routine 11/19/2024 4:13 PM EDT documented in this encounter Results * Ultrasound limited 1 or more fetus (11/19/2024 4:13 PM EDT) Anatomical Region Laterality Modality OB-FISH WARDEN Ultrasound us Not In System Ref Prov IMG US ORDERABLES Final R esult documented in this encounter Visit Diagnoses Not on filedocumented in this encounter Care Teams Healthcare Consulting Manager Relationship Specialty Start Date End Date No Pcp, [place] [address] PCP - General Family Medicine 12/19/23 documented as of this encounter
[2024-12-06 12:08] LABS: Age Gdln ACOG Testing Note (.); HPV Aptima Negative (Negative); IGP, Aptima HPV, rfx 16/18,45 Note (.)
== END 2024-12-04 14:49 | disposition home or self-care (01) ==
LOC: LAB 14:48
PROVIDERS: Visit Provider Obstetrics & Gynecology
DX: Z01.419 Encounter for gynecological examination (general) (routine) without abnormal findings (principal)
CPT/HCPCS: 87624; 88175

== ENCOUNTER 2024-12-19 09:56 | Outpatient (OUT) | payer OTHER, SELFPAY ==
--- OUTSIDE RECORDS SUMMARY | 2024-07-28 03:45 | XMS_ITS ---
Author Organization [facility] vices Address [address] [place] [phone] Care Team Providers Care Civil Engineering Teacher Name Role Phone Pako Mays Unavailable [phone] REASON FOR VISIT Recall (A) 33 Medications [...] Location Date Provider Diagnosis [facility] [address] [place], [place] [phone] 07/28/2024 Pako Mays Plan Of Treatment No Information Progress Notes * Antonette MOSQUEDAjeanDOB:1990 (34 yo F)Acc No.[id number]:07/28/2024 Patient: Paris TORRES Provider: Yesenia Mays DDS :1990 A ge:34 Y S ex:Female Date:07/28/2024 Address:[address] [place] [address] [id number] Subjective: * Chief Complaints: * 1 . [...] Electronic signature of Radha Mays DDS on 12/19/2024 at 09:58 AM EDT Sign off status: Pending * Provider: Yesenia Mays DDS Date: 07/28/2024 Generated for Na llamas/Mark/Christophe on: 12/19/2024 09:58 AM EDT
--- NOTE | 2024-12-19 09:58 | US_ITS ---
The [address] [address] Patient Name: PRISCILLA BLAND MRN: [id number] date: 1990 Sex: F Assigned Patient Location: Current Patient Location: Accession/Order Number: [id number] Exam Date: 12/19/2024 11:33 Report Date: 12/19/2024 11:39 At the request of: HECTOR KWAN DO Procedure: US OB anatomy CLINICAL DATA: anatomy survey ULTRASOUND OB ANATOMY COMPARISON: None There is a single live intrauterine gestation in breech presentation. There is cardiac and somatic activity with heart rate of 150 bpm. The placenta is anterior and within normal limits for appearance and position. The amniotic fluid volume is subjectively normal. The neural axis and all 4 extremities were surveyed and no abnormalities were detected. The stomach, bladder, kidneys, three-vessel cord with insertion, 4 chamber heart, diaphragm, facial features and male genitalia are seen. The ventricular outflow tracts were not well visualized due to position. The following measurements were obtained: Biparietal diameter 4.6 cm 19 weeks 5 days 23% Head circumference 17.0 cm 19 weeks 4 days 20% Abdominal circumference 14.5 cm 19 weeks 5 days 20% Femur length 3.0 cm 19 weeks 2 days 11% The composite ultrasound age based on these measurements is 19 weeks 4 days +/- 1 week 3 days. The estimated date of delivery is May 11, 2025. The date of delivery based on last menstrual period is May 05, 2025. The estimated weight is 11 ounces +/- 2 ounces (10%). US/US OB cervical length IMPRESSION: SINGLE LIVE INTRAUTERINE GESTATION AT 19 WEEKS 4 DAYS. INCOMPLETE VISUALIZATION OF THE VENTRICULAR OUTFLOW TRACTS. OTHERWISE UNREMARKABLE ANATOMY SURVEY. ULTRASOUND OB CERVICAL LENGTH COMPARISON: None The cervix was evaluated with a transvaginal probe. The cervix is closed. The estimated length is 4.2 cm. There is no evidence of previa. IMPRESSION: NORMAL CLOSED CERVIX. Impression dictated by: Sarita Evangelista M.D. 12/19/2024 11:39 AM Dictation Location: [place] [address] Electronically authenticated by: [id number] Y Date: 12/19/2024 11:39
--- NOTE | 2024-12-19 09:58 | US_ITS ---
The [address] [address] Patient Name: PRISCILLA BLAND MRN: [id number] date: 1990 Sex: F Assigned Patient Location: Current Patient Location: Accession/Order Number: [id number] Exam Date: 12/19/2024 11:33 Report Date: 12/19/2024 11:39 At the request of: HECTOR KWAN DO Procedure: US OB anatomy CLINICAL DATA: anatomy survey ULTRASOUND OB ANATOMY COMPARISON: None There is a single live intrauterine gestation in breech presentation. There is cardiac and somatic activity with heart rate of 150 bpm. The placenta is anterior and within normal limits for appearance and position. The amniotic fluid volume is subjectively normal. The neural axis and all 4 extremities were surveyed and no abnormalities were detected. The stomach, bladder, kidneys, three-vessel cord with insertion, 4 chamber heart, diaphragm, facial features and male genitalia are seen. The ventricular outflow tracts were not well visualized due to position. The following measurements were obtained: Biparietal diameter 4.6 cm 19 weeks 5 days 23% Head circumference 17.0 cm 19 weeks 4 days 20% Abdominal circumference 14.5 cm 19 weeks 5 days 20% Femur length 3.0 cm 19 weeks 2 days 11% The composite ultrasound age based on these measurements is 19 weeks 4 days +/- 1 week 3 days. The estimated date of delivery is May 11, 2025. The date of delivery based on last menstrual period is May 05, 2025. The estimated weight is 11 ounces +/- 2 ounces (10%). US/US OB anatomy IMPRESSION: SINGLE LIVE INTRAUTERINE GESTATION AT 19 WEEKS 4 DAYS. INCOMPLETE VISUALIZATION OF THE VENTRICULAR OUTFLOW TRACTS. OTHERWISE UNREMARKABLE ANATOMY SURVEY. ULTRASOUND OB CERVICAL LENGTH COMPARISON: None The cervix was evaluated with a transvaginal probe. The cervix is closed. The estimated length is 4.2 cm. There is no evidence of previa. IMPRESSION: NORMAL CLOSED CERVIX. Impression dictated by: Sarita Evangelista M.D. 12/19/2024 11:39 AM Dictation Location: [place] [address] Electronically authenticated by: [id number] Y Date: 12/19/2024 11:39
--- OUTSIDE RECORDS SUMMARY | 2024-12-19 09:58 | XMS_ITS | Encounter Summary ---
Author Organization [facility] Address [address] [place] [address] Care Team Providers Care Transformer Shop Supervisor Name Role Phone Unavailable Primary Care Provider Unavailabl e Encounter Details Date Type Department Care Team (Late st Contact Info) Description 11/13/[address] [facility] [address] [facility] [place] [address] Scooby Alvarado DO [address] [place] [address] Dr [place], [facility] Social History Tobacco Use Types Packs/Day Years [...] Description 01/01/2025 1:30 PM EDT Routine [facility] OB [address] [place] [address] Deborah Kwan PA [address] [facility] [address] [place], [place] [id number] documented as of this encounter Visit Diagnoses Not on filedocumented in this encounter
--- OUTSIDE RECORDS SUMMARY | 2024-12-19 09:58 | XMS_ITS | Encounter Summary ---
Author Organization [facility] [employer] [facility] tem Address [facility]J208[facility] [address] [place] [address] Care Team Providers Care Rn Outpatient Surgery Name Role Phone No Pcp, No Pcp Primary Care Provider Unavailabl e Encounter Details Date Type Department Care Team (Late st Contact Info) Description 11/19/2024 Abstract Maternal- Medicine at [facility] [address] [place] [phone] Provider, Generic External Data Social History Tobacco [...] ORDERABLES Final Re sult Performing Organization Address City/[facility]/ZIP Co de Phone Number MANUALLY TRANSCRIBED RESULTS * CBC without diff (11/11/2024) Hemoglobin 11.8 MANUALLY TRANSCRIBED RESULTS Hematocrit 35.7 MANUALLY TRANSCRIBED RESULTS Rbc Mcv (Fl) By Automated Count 84.0 MANUALLY TRANSCRIBED RESULTS Platelets 284 MANUALLY TRANSCRIBED RESULTS Blood Venous blood / Unknown us Not In System Ref Prov LAB BLOOD ORDERABLES Rachael l Result Performing Organization Address City/[facility] Co de Phone Number MANUALLY TRANSCRIBED RESULTS * HIV 1&2 AB/AG Screen (P24 AG) (11/11/2024) HIV 1&2 AB/AG non reactive MAN UALLY TRANSCRIBED RESULTS Blood Venous blood / Unknown us Not In System Ref Prov LAB BLOOD ORDERABLES Rachael l Result Performing Organization Address [facility] Co de Phone Number MANUALLY TRANSCRIBED RESULTS * Type and screen (11/11/2024) Abo/Rh(D) A Positive MANUALLY TRANSCRIBED RESULTS Antibody Screen negative MANUALLY TRANSCRIBED RESULTS Blood Venous blood / Unknown us Not In System Ref Prov BLOOD BANK TEST ORDERABLE S Final Result Performing Organization Address [facility] Co de Phone Number MANUALLY TRANSCRIBED RESULTS * Rubella IGG immune status (11/11/2024) Rubella immune IgG non immune MANUALLY TRANSCRIBED RESULTS Blood Venous blood / Unknown us Not In System Ref Prov LAB BLOOD ORDERABLES Rachael l Result Performing Organization Address City/[facility] Co de Phone Number MANUALLY TRANSCRIBED RESULTS [...] ORDERABLES Final Resu lt Performing Organization Address City/[facility]/ZIP Co de Phone Number MANUALLY TRANSCRIBED RESULTS * Basic Metabolic Panel (11/11/2024) Glucose 126 mg/dL MANUALLY TRANSCRIBED RESULTS Blood Venous blood / Unknown us Scooby R Jenny DO LAB BLOOD ORDERABLES Final Resu lt Performing Organization Address [facility] Co de Phone Number MANUALLY TRANSCRIBED RESULTS documented in this encounter Visit Diagnoses Not on filedocumented in this encounter Care Teams Rn Outpatient Surgery Relationship Specialty Start Date End Date No Pcp, [place] [address] PCP - General Family Medicine 12/19/23 documented as of this encounter
--- OUTSIDE RECORDS SUMMARY | 2024-12-19 09:58 | XMS_ITS | Encounter Summary ---
Author Organization [facility] Address [address] [place] [address] Care Team Providers Care Blasting Cap Assembler Name Role Phone Unavailable Primary Care Provider Unavailabl e Encounter Details Date Type Department Care Team (Late Contact Info) Description 12/04/2024 External Result Encounter [facility] External Department Unsolicited Deborah Kwan PA [address] [place], [place] [address] Social History Tobacco Use Types Packs/Day Years [...] Encounters Date Type Department Care Team (Late Contact Info) Description 01/01/2025 1:30 PM EDT Routine [facility] BCP OB [address] [facility] [facility] [place] [address] Deborah Kwan PA [address] [place] [address] documented as of this encounter Procedures Procedure Name Priority Date/Time Associated Diagnosis Comments RECURRENT VAGINITIS (HTRX) Routine 12/04/2024 3:26 PM EDT documented in this encounter Results * RECURRENT VAGINITIS (HTRX) (12/04/2024 3:26 PM EDT) [facility] ATOPOBIUM VAGINAE 0.000 19.961 - 24.689 ppm 12/06/2024 7:42 AM EDT [facility] ATOPOBIUM VAGINAE Not Detected 19.961 - 24.689 ppm 12/06/2024 7:42 AM EDT [facility] BVAB 2,3 (BACTERIAL VAGINOSIS ASSOCIATED BACTERIA 2, 3); MOBILUNCUS SPP 0.000 19.961 - 24.689 ppm 12/06/2024 7:42 AM EDT [facility] BVAB 2,3 (BACTERIAL VAGINOSIS ASSOCIATED BACTERIA 2, 3); MOBILUNCUS SPP Not Detected 19.961 - 24.689 ppm 12/06/2024 7:42 AM EDT [facility] KENA ALBICANS, PARAPSILOSIS, TROPICALIS 0.000 19.961 - 30.770 ppm 12/06/2024 7:42 AM EDT [facility] KENA ALBICANS, PARAPSILOSIS, TROPICALIS Not Detected 19.961 - 30.770 ppm 12/06/2024 7:42 AM EDT [facility] KENA GLABRATA 0.000 23.000 - 32.138 ppm 12/06/2024 7:42 AM EDT [facility] KENA GLABRATA Not Detected 23.000 - 32.138 ppm 12/06/2024 7:42 AM EDT [facility] KENA KRUSEI 0.000 23.000 - 32.271 ppm 12/06/2024 7:42 AM EDT [facility] KENA KRUSEI Not Detected 23.000 - 32.271 ppm 12/06/2024 7:42 AM EDT [facility] CHLAMYDIA TRACHOMATIS 0.000 23.000 - 31.467 ppm 12/06/2024 7:42 AM EDT [facility] CHLAMYDIA TRACHOMATIS Not Detected 23.000 - 31.467 ppm 12/06/2024 7:42 AM EDT [facility] GARDNERELLA VAGINALIS 0.000 19.961 - 24.689 ppm 12/06/2024 7:42 AM EDT [facility] GARDNERELLA VAGINALIS Not Detected 19.961 - 24.689 ppm 12/06/2024 7:42 AM EDT [facility] MEGASPHAERA (TYPES 1, 2) 0.000 19.961 - 24.689 ppm 12/06/2024 7:42 AM EDT [facility] MEGASPHAERA (TYPES 1, 2) Not Detected 19.961 - 24.689 ppm 12/06/2024 7:42 AM EDT [facility] NEISSERIA GONORRHOEAE 0.000 23.000 - 32.117 ppm 12/06/2024 7:42 AM EDT [facility] NEISSERIA GONORRHOEAE Not Detected 23.000 - 32.117 ppm 12/06/2024 7:42 AM EDT [facility] TRICHOMONAS VAGINALIS 0.000 23.000 - 32.119 ppm 12/06/2024 7:42 AM EDT [facility] TRICHOMONAS VAGINALIS Not Detected 23.000 - 32.119 ppm 12/06/2024 7:42 AM EDT [facility] MYCOPLASMA GENITALIUM 0.000 19.961 - 24.689 ppm 12/06/2024 7:42 AM EDT [facility] MYCOPLASMA GENITALIUM Not Detected 19.961 - 24.689 ppm 12/06/2024 7:42 AM EDT [facility] Tissue 12/04/2024 3:26 PM EDT 12/06/2024 3:19 AM EDT us Deborah RUBIN LAB BLOOD ORDERABLES Final Resul t [facility] [address] [place] [place] [address] documented in this encounter Visit Diagnoses Not on filedocumented in this encounter
--- OUTSIDE RECORDS SUMMARY | 2024-12-19 09:58 | XMS_ITS | Encounter Summary ---
Author Organization [facility] tem Address [id number] [address] [place] [address] Care Team Providers Care Bone Char Operator Name Role Phone No Pcp, No Pcp Primary Care Provider Unavailabl e Encounter Details Date Type Department Care Team (Late st Contact Info) Description 11/19/2024 Orders Only Maternal- Medicine at [facility] [address] [place] [address] Ref [place], [place] [address] Social History Tobacco Use Types Packs/Day Years [...] 4:13 PM EDT) Anatomical Region Laterality Modality OB-COFFEE MAKER Ultrasound us Not In System Ref Prov IMG US ORDERABLES Final R esult documented in this encounter Visit Diagnoses Not on filedocumented in this encounter Care Teams Bone Char Operator Relationship Specialty Start Date End Date No Pcp, [place] [address] PCP - General Family Medicine 12/19/23 documented as of this encounter
--- OUTSIDE RECORDS SUMMARY | 2024-12-19 09:58 | XMS_ITS | Encounter Summary ---
Author Organization [facility] Address [address] [facility] [place] [address] Care Team Providers Care Audit Intern Name Role Phone EppsJihan do Paco JAVA J2EE SOFTWARE ENGINEER Unavailable [phone] Encounter Details Date Type Department Care Team (Late st Contact Info) Description 12/14/2023 Clinisync Result Encounter [facility] External Department Unsolicited Hector Alvarado DO [address] [facility] [place] [address] Social History Tobacco Use Types Packs/Day Years [...] EDT Routine [facility] [address] [facility] [phone] Deborah Kwan PA [address] [place] [address] documented as of this encounter Procedures Procedure Name Priority Date/Time Associated Diagnosis Comments US OB TRANSVAGINAL 12/14/2023 9: 53 AM EDT documented in this encounter Results * US OB TRANSVAGINAL (12/14/2023 9:53 AM EDT) Anatomical Region Laterality Modality Other 12/14/2023 9:53 AM EDT Narrative 12/14/2023 9:56 [place] [address] Ultrasound Report Signed Patient: PRISCILLA MOSQUEDA MR#: [id number] : 1990 Acct:[id number] Age/Sex: 33 / F ADM Date: 12/14/23 Loc: [facility] Attending Dr: Hector Alvarado D.O. Ordering Physician: Hector Alvarado D.O. Date of Service: 12/14/23 Procedure(s): US OB transvaginal Accession Number(s): [id number] cc: [facility] ; Hector Alvarado D.O. [place] [id number] Patient Name: PRISCILLA MOSQUEDA MRN: [id number] date: 1990 Sex: F Assigned Patient Location: [facility] Current Patient Location: [facility] Accession/Order Number: [id number] Exam Date: 12/14/2023 09:01 Report Date: 12/14/2023 [...] M.D. Signed By: 12/14/2356 DD/ 2 TD/TT: Composing Room Machinist Apprentice: Procedure Note Radiology, Radiologist, - 12/14/2023 [place] [address] Ultrasound Report Signed Patient: PRISCILLA MOSQUEDAMR#: [id number] : 1990Acct:[id number] Age/Sex: 33 / FADM Date: 12/14/23 Loc: [facility] Attending Dr: Hector Alvarado D.O. Ordering Physician: Hector Alvarado D.O. Date of Service: 12/14/23 Procedure(s): US OB transvaginal Accession Number(s): [id number] cc: [facility] ; Hector Alvarado D.O. [place] [address] Patient Name: PRISCILLA MOSQUEDA MRN: [id number] date: 1990 Sex: F Assigned Patient Location: [facility] Current Patient Location: [facility] Accession/Order Number: [id number] Exam Date: 12/14/2023 09:01 Report Date: 12/14/2023 [...] Nadia Dooley M.D. Signed By:12/14/2356 DD/ TD/TT: Composing Room Machinist Apprentice: us Hector Jenny DO [facility] Final Result documented in this encounter Visit Diagnoses Not on filedocumented in this encounter Care Teams Audit Intern Relationship Specialty Start Date End Date Jihan Epps NP [address] [place] [address] PCP - [facility] POLICY ADVISOR 09/24/23 12/23/23 documented as of this encounter
--- OUTSIDE RECORDS SUMMARY | 2024-12-19 09:58 | XMS_ITS | Patient Health Record ---
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 Stress is when someone feels tense, nervous, anxious, or can't sleep at night because their mind is troubled Not at all patient entered data In the past year have you sp ent more than 2 nights in a row in a shelter, mcfp, nursing home center, or juvenile correctional facility? No patient [...] Problem Status W/U Status Risk Notes Problem 358662144 Irritable bowel syndrome with diarrhea (K58.0) Active confirmed Problem BMI 30+ - obesity (461499121) BMI 32.0-32.9,adul t (Z68.32) Active confirmed Problem Body mass index 30.00 to 34.99 (166835366651318 ) BMI 31.0-31.9,adul t (Z68.31) Active confirmed Problem Venereal disease screening (185419137) Screening for STD (sexually transmitted disease) (Z11.3) Active confirmed Problem Irritable bowel syndrome (93841594) IBS (irritable bowel syndrome) (K58.9) Active confirmed [...] third trimester ., Problem Urine test negative (977067487) Encounter for test with result negative (V72.41) (V72.41) Active confirmed Problem Depression screening (646355461) Screening for depression (Z13.31) Active confirmed Description:Dep r ession screen Problem Removal of suture (28400209) Visit for suture removal (Z48.02) Active confirmed Comment:Sutures removed. Area cleansed with alcohol. Area was bandaged. Pt. advised to RTO for signs/ symptoms of infection including erythema, warmth, discharge from wound, fever or chills., Problem Muayn-nic-rosrw without malnutrition (459011328) Small for gestational age (764.00) (764.00) Active confirmed Problem Insertion of intrauterine contraceptive device (23072385) Encounter for IUD insertion (Z30.430) Active confirmed Comment:uterus retroverted, speculum inserted, cervix swabbed with betadine, single toothed tenaculum applied to anterior lip of cervix, uterus sounded to 8 cm, IUD placed without difficulty, strings cut 2 cm from os, good hemostasis noted, pt tolerated procedure well., Problem Janeth onychomycosis (B37.2) Active confirmed Description:Can d idiasis of nails Problem Upper respiratory infection (27436054) URI (upper respiratory infection) (J06.9) Active confirmed Comment:alyssa faith observe. otc supp therapy. f/u if sxs got worse,Story:she had sore throat o the last t wo days.no f c n v. she took supportive therapu. wet to Er got some meds., Problem Urinary tract infection in (463035610) UTI in (O23.40) Active confirmed Comment:pt on antibiotics, Problem Diarrhea (69170715) Diarrhea (R19.7) Active confirmed Problem Mass of lower limb (758538407) Mass of right lower leg (R22.41) Active confirmed Problem Poor weight gain of (646.80) (646.80) Active confirmed Comment:discusse d increase po intake, insufficient weight gain can lead to SGA, IUGR. Monitor weight. will order growth ultrasound, Problem Gynecologic examination (12320715) Visit for gynecologic examination (Z01.419) Active confirmed Comment:last pap 10/01/2012 - neg, hpv neg encouraged self breast exams, Problem Injury (797831171) Contusion of soft tissue (T14.8) Active confirmed Comment:REFER t o Orthopedic surgery - In [place] on Rt 4, Problem Normal (12559490) SUPERVISION, OTHER NORMAL (V22.1) (V22.1) Active confirmed Problem Dyspepsia (767823823) Dyspepsia (R10.13) Active confirmed Problem Abnormal glucose tolerance in mother complicating , childbirth AND/OR puerperium (34494173) Abnormal glucose tolerance in mother complicating (648.80) (648.80) Active confirmed Comment:1 hr GT T - 165, 3 hr normal, Problem Contraceptive intrauterine device check (418856377) IUD check up (Z30.431) Active confirmed Comment:strings trimmed as partner feels it during intercourse, discussed risks if trim too short of migration, Problem Asymptomatic bacteriuria in (01794769) Asymptomatic bacteriuria in (O23.40) Active confirmed Problem Breast lump (58724816) Breast mass seen on mammogram (N63.0) Active confirmed Problem Delivery normal (02480960) Delivery normal (O80) Active confirmed Comment:Pregnanc y ended in chart. eds 09/21 had menses, has not resumed intercourse breast feeding desires ocp, Problem Poor growth affecting management (707851258) Small for gestational age fetus affecting mother, antepartum (O36.5990) Active confirmed Problem Normal (15388298) Encounter for supervision of normal (Z34.90) Active [...] wks , male, 8lb2oz, 2010 , @ [facility]. PMH : obesity PSH: denies PGYN: denies Meds: PNV NKDA Sochx: neg x 3., Problem IUGR - Intrauterine growth retardation (17395082) IUGR (intrauterine growth restriction) (764.90) Active confirmed Comment:US done 03/31/13 baby was 33.4 weeks 5lbs 12 oz, 4%ile, megha normal discussed findings with pt, started antepartum testing. Umbilical artery dopplers normal pt complaints of decreased movement, will induce today, Problem Ovarian cyst complicating , antepartum (O34.80) Active confirmed Comment:4.7x2.8 x 3.3 cm on right ovary, Problem Contraception care education (447413419) Family planning advice (Z30.09) Active confirmed Comment:pt late for depo window, preg test negative, received depo today discussed importance of compliance,Descr iption:CONTRACEP TIVE COUNSELING NEC Problem Breast lump (03432322) Left breast lump (611.72) (611.72) Active confirmed Comment:Instruc t ed to use all medication as prescribed, obtain diagnostic mammogram, return after mammogram is preformed or sooner as needed is symptoms worsen or do not get better. Patient verbalizes and agrees with plan of care., Problem Oligohydramnios (66120249) Decreased amniotic fluid (O41.00X0) Active confirmed Comment:pt to go to hospital for IV fluid hydration, repeat megha 11.1. Pt to have repeat megha on following sunday 10.7, normal bladder. measuring S< D, will order growth and megha,Description: Oligohydramnios Problem Breast lump (07362773) Breast mass in female (N63.0) Active confirmed [...] monitor with self breast exams, Problem Cellulitis (442305029) Cellulitis and abscess (L03.90) Active confirmed Problem Cyst of graafian follicle (0413710) Cyst of Graafian follicle (N83.00) 2008 Problem resolved confirmed Description:Foll icular cyst of ovary Problem Acute streptococcal pharyngitis (1136427553) Acute streptococcal pharyngitis (J02.0) 2009 Problem resolved confirmed Description:Stre ptococcal sore throat Problem Left lower quadrant pain (930762174) Abdominal pain, left lower quadrant (789.04) (789.04) 2008 Problem resolved confirmed Problem Dysmenorrhea (426175052) Adolescent dysmenorrhea (N94.6) 2007 Problem resolved confirmed Description:Dysm enorrhea Problem General examination of patient (984021176) Routine general medical examination at a health care facility (V70.0) (V70.0) 2007 Problem resolved confirmed Problem Polycystic bilateral ovaries (disorder) (488204275) Bilateral polycystic ovarian syndrome (E28.2) 2008 Problem resolved confirmed Description:Poly cystic ovaries Problem Sinusitis, acute (461.) (461) 2008 Problem resolved confirmed Problem Urinary tract infectious disease (18446434) Infection of urinary tract (N39.0) 2009 Problem resolved confirmed Description:Urin emily tract infection Problem Obesity (disorder) (988634337) Overweight and obesity (E66.3) 2007 Problem resolved confirmed Problem Cyst of ovary (75011271) Cyst of ovary (N83.20) 2008 Problem resolved confirmed Description:Ovar jean cyst Vital Signs Heart Rate 71 /min 09/02/2024 Blood pressure diastolic 96 mm Hg 09/02/2024 Height-cm 162.56 cm 09/02/2024 Weight-kg 83.92 kg 09/02/2024 Height 64.00 in 09/02/2024 Blood pressure systolic 142 mm Hg 09/02/2024 Weight 185 lbs 09/02/2024 BMI 31.75 kg/m2 09/02/2024 Encounters Encounter Location Date Provider Diagnosis [facility] [address] [place], [place] [id number] 07/16/2024 Pako Mays BMI 32.0-32.9,adul t Z68.32 ; Dietary counseling Z71.3 ; Exercise counseling Z71.82 ; Encounter for screening for dental disorders Z13.84 and Encounter for dental examination and cleaning without abnormal findings Z01.20 [facility] [address] [place], [place] [id number] 09/02/2024 Pako Mays Encounter for dent al examination and cleaning without abnormal findings Z01.20 and Obesity, Class I, BMI 30-34.9 E66.811 Assessments Encounter Date Diagnosis (ICD Code) Assessment Notes Treatment Notes Treatment Clinical Notes Section Notes 07/16/2024 BMI 32.0-32.9,adult (ICD-10 - Z68.32) 09/02/2024 Encounter for dental examination and cleaning without abnormal findings (ICD-10 - Z01.20) 09/02/2024 Obesity, Class I, BMI 30-34.9 (ICD-10 - E66.811) 07/16/2024 Dietary counseling (ICD-10 - Z71.3) 07/16/2024 Exercise counseling (ICD-10 - Z71.82) 07/16/2024 Encounter for screening for dental disorders (ICD-10 - Z13.84) 07/16/2024 Encounter for dental examination and cleaning without abnormal findings (ICD-10 - Z01.20) Plan Of Treatment No Information Insurance Providers Payer Name Payer Address Payer Phone Subscriber Number Group Number Insured Name Patient Relationship to Insured Coverage Start Date Coverage End Date DSuperio r Dental Care MM [address] [place] [address] [id number] Zac Mosqueda Spouse - patient is the spouse of the insured 3 UMR [address] [address] [place], [place] [id number] Zac Mosqueda Spouse - patient is the [...]
--- OUTSIDE RECORDS SUMMARY | 2024-12-19 09:59 | XMS_ITS | Encounter Summary ---
Author Organization [facility] Address [address] [place] [address] Care Team Providers Care Blindstitch Lining Feller Name Role Phone Unavailable Primary Care Provider Unavailabl e Encounter Details Date Type Department Care Team (Late st Contact Info) Description 11/13/2024 Results Follow-Up [facility] BCP OB [address] [place] [address] Viola Washington LPN [address] [employer] [place] [id number] Social History Tobacco Use Types Packs/Day Years [...] BCP OB [address] [place] [phone] Deborah Kwan PA [address] [facility] [place] [address] documented as of this encounter Visit Diagnoses Not on filedocumented in this encounter
--- OUTSIDE RECORDS SUMMARY | 2024-12-19 09:59 | XMS_ITS | Encounter Summary ---
Author Organization [facility] Address [address] [place] [address] Care Team Providers Care File Keeper Name Role Phone Unavailable Primary Care Provider Unavailabl e Encounter Details Date Type Department Care Team (Late st Contact Info) Description 12/12/2024 Orders Only [facility] BCP OB [address] [place] [address] [place] [address] Yane Grant MA [address] [place] [address] [place] [address] Social History Tobacco Use Types Packs/Day Years [...] 1:30 PM EDT Routine [facility] BCP OB [address] [place] [address] [place] [address] Deborah Kwan PA [address] [place] [address] [place], [place] [id number] documented as of this encounter Procedures Procedure Name Priority Date/Time Associated Diagnosis Comments PAP SMEAR Routine 12/04/2024 12:00 AM EDT documented in this encounter Results * Pap Smear (12/04/2024 12:00 AM EDT) Swab Cervical swab / Unknown us Scooby Alvarado DO LAB CYTOLOGY ORDERABLES Final Re sult EXTERNAL LAB documented in this encounter Visit Diagnoses Not on filedocumented in this encounter
--- OUTSIDE RECORDS SUMMARY | 2024-12-19 09:59 | XMS_ITS | Encounter Summary ---
Author Organization [facility] Address [address] [facility] [place] [address] Care Team Providers Care Supervisor Education Name Role Phone Unavailable Primary Care Provider Unavailabl e Encounter Details Date Type Department Care Team (Late st Contact Info) Description 12/04/2024 Clinisync Result Encounter [facility] External Department Unsolicited Scooby Alvarado DO [address] [facility] [address] [place], [facility] Social History Tobacco Use Types Packs/Day Years [...] PM EDT Routine [facility] BCP OB [address] [facility] [place] [phone] Deborah Kwan PA [address] [facility] [place] [address] documented as of this encounter Procedures Procedure Name Priority Date/Time Associated Diagnosis Comments IGP,APTIMA HPV,AGE GDLN Routine 12/04/2024 10:06 AM EDT documented in this encounter Results * IGP,APTIMA HPV,AGE GDLN (12/04/2024 10:06 AM EDT) AGE GDLN ACOG TESTING Note . [facility] Comment: TESTS RESULT FLAG UNITS REF RANGE LAB Clinician Provided Cytology Information Source.............Vagina Other.............. No. of containers..01 ThinPrep Vial Age Algo ACOG Karine... 30-65 01 FLAG LEGEND: L-Low Normal,H-High Normal,LL-Alert Low,HH-Alert High <-Panic Low,>-Panic High,A-Abnormal,AA-Critical Abnormal Performed at: 01 =[address] [facility] [address] Cindy Pinzon MD, IGP, APTIMA HPV, RFX 16/18,45 Note . [facility] Comment: TESTS RESULT FLAG UNITS REF RANGE LAB DIAGNOSIS: 02 NEGATIVE FOR INTRAEPITHELIAL LESION OR MALIGNANCY. Specimen adequacy: 02 Satisfactory for evaluation. No endocervical component is identified. Performed by: 02 Yanni Dela Cruz Oceanic Sciences Professor (ASCP) . 02 Note: Note 02 The Pap smear is a screening test designed to aid in the detection of premalignant and malignant conditions of the uterine cervix. It is not a diagnostic procedure and should not be used as the sole means of detecting cervical cancer. Both false-positive and false-negative reports do occur. Test Methodology: Note 02 This liquid based ThinPrep(R) pap test was screened with the use of an image guided system. HPV Genotype Reflex Note 02 Criteria not met, HPV Genotype not performed. FLAG LEGEND: L-Low Normal,H-High Normal,LL-Alert Low,HH-Alert High <-Panic Low,>-Panic High,A-Abnormal,AA-Critical Abnormal Performed at: [address] [address] Cindy Pinzon MD, HPV APTIMA Negative Negative [facility] Comment: This nucleic acid amplification test detects fourteen high- risk HPV types (16,18,31,33,35,39,45,51,52,56,58,59,66,68) without differentiation. Performed at: = - [address] [id number] Assistant Federal Public Defender: Cindy Pinzon MD, Phone: [phone] Performed at: [address] [id number] Assistant Federal Public Defender: Cindy Pinzon MD, Phone: [phone] 12/04/2024 10:0 6 AM EDT 12/04/2024 2:50 PM EDT Narrative [facility] - 12/06/2024 12:08 PM EDT SPATULA-ALONE VAGINA us Scooby Jenny DO LAB BLOOD ORDERABLES Final Resul t [facility] documented in this encounter Visit Diagnoses Not on filedocumented in this encounter
--- OUTSIDE RECORDS SUMMARY | 2024-12-19 09:59 | XMS_ITS | Clinical Summary ---
Author Organization [employer] [facility] Address [facility] [address] [place] [address] Care Team Providers Care Instrumentation Supervisor Name Role Phone No Pcp, No Pcp [...] Team Description 12/04/2024 Telephone [facility] [address] [place] [phone] Rowena Hansen LD 11/24/2024 1:30 PM EDT Support Visit [facility] [address] [place] [address] Oma Davis, RN Chinyere Martinez RD Gestational diabetes mellitus (GDM) in second trimester, gestational diabetes method of control unspecified 11/24/2024 Travel 11/19/2024 Orders Only [facility] [address] [place] [address] Ref Prov, Not In System 11/19/2024 Abstract [facility] [address] [place] [address] Provider, Generic External Data from Last 3 [...] BLOOD ORDERABLES Final Result Performing Organization Address City/[facility]/ZIP Co de Phone Number MANUALLY TRANSCRIBED RESULTS * Ultrasound limited 1 or more fetus (11/19/2024 4:13 PM EDT) Anatomical Region Laterality Modality OB-TERMITE TECHNICIAN Ultrasound us Not In System Ref Prov IMG US ORDERABLES Final R esult * HIV 1&2 AB/AG Screen (P24 AG) (11/11/2024) HIV 1&2 AB/AG non reactive MAN UALLY TRANSCRIBED RESULTS Blood Venous blood / Unknown us Not In System Ref Prov LAB BLOOD ORDERABLES Rachael l Result Performing Organization Address City/[facility] Co de Phone Number MANUALLY TRANSCRIBED RESULTS * Rubella IGG immune status (11/11/2024) Rubella immune IgG non immune MANUALLY TRANSCRIBED RESULTS Blood Venous blood / Unknown us Not In System Ref Prov LAB BLOOD ORDERABLES Rachael l Result Performing Organization Address City/[facility]/ZIP Co de Phone Number MANUALLY TRANSCRIBED RESULTS [...] ORDERABLES Final Re sult Performing Organization Address [facility] Co de Phone Number MANUALLY TRANSCRIBED RESULTS * Hepatitis B surface antigen (11/11/2024) Hepatitis B Surface Antigen negative MANUALLY TRANSCRIBED RESULTS Blood Venous blood / Unknown us Not In System Ref Prov LAB BLOOD ORDERABLES Rachael l Result Performing Organization Address [facility] de Phone Number MANUALLY TRANSCRIBED RESULTS * CBC without diff (11/11/2024) Hemoglobin 11.8 MANUALLY TRANSCRIBED RESULTS Hematocrit 35.7 MANUALLY TRANSCRIBED RESULTS Rbc Mcv (Fl) By Automated Count 84.0 MANUALLY TRANSCRIBED RESULTS Platelets 284 MANUALLY TRANSCRIBED RESULTS Blood Venous blood / Unknown us Not In System Ref Prov LAB BLOOD ORDERABLES Rachael l Result Performing Organization Address [facility] de Phone Number MANUALLY TRANSCRIBED RESULTS * Type and screen (11/11/2024) Abo/Rh(D) A Positive MANUALLY TRANSCRIBED RESULTS Antibody Screen negative MANUALLY TRANSCRIBED RESULTS Blood Venous blood / Unknown us Not In System Ref Prov BLOOD BANK TEST ORDERABLE S Final Result Performing Organization Address [facility] Co de Phone Number MANUALLY [...] TRANSCRIBED RESULTS from Last 3 Months Insurance [facility] Advance Directives * Full Code (Latest Code Status on File) Date Activated Date Inactivated Comments 12/20/2023 11:13 PM 12/21/2023 1:46 PM Care Teams Instrumentation Supervisor Relationship Specialty Start Date End Date No Pcp, [place] [address] PCP - General Family Medicine 12/19/23
--- OUTSIDE RECORDS SUMMARY | 2024-12-19 09:59 | XMS_ITS | Clinical Summary ---
Author Organization [facility] Healthcare Address [address] [place] [address] Care Team Providers Care Director Of Corporate Responsibility Name Role Phone Unavailable Primary Care Provider Unavailabl e Allergies No known active allergies Medications Vpwhperq-Psi-Ow- FA ( 1 + IRON PO) Take by mouth Active Alcohol Swabs (Alcohol Prep Pad) 70 % padsIndications: Gestational diabetes mellitus (GDM), antepartum, gestational diabetes method of control unspecified (HHS-HCC),Elevat ed glucose tolerance test Apply 1 Pad topically Daily Use four times daily to check FSBS. 150 each 3 5 Active Blood Glucose Monitoring Suppl (D-Care Glucometer) w/Device kitIndications:G estational diabetes mellitus (GDM), antepartum, gestational diabetes method of control unspecified (HHS-HCC),Elevat ed glucose tolerance test 1 kit Daily Use four times daily to check FSBS. In the morning prior to breakfast & 1 hour after each meal for a total of 4times daily. 1 kit 5 11/14/19 26 Active Lancets Ultra Thin miscIndications: Gestational diabetes mellitus (GDM), antepartum, gestational diabetes method of control unspecified (HHS-HCC),Elevat ed glucose tolerance test 1 each by In Vitro route Daily Use to check FSBS four times daily 150 each 3 5 12/14/19 25 Glucose Blood (Blood Glucose Test) stripIndications :Gestational diabetes mellitus (GDM), antepartum, gestational diabetes method of control unspecified (HHS-HCC),Elevat ed glucose tolerance test 1 strip by In Vitro route Daily Use in the morning prior to breakfast, 1 hour after each meal for a total of 4times daily. 150 strip 3 5 12/14/19 25 Encounters Date Type Department Care Team Description 12/12/2024 Orders Only [facility] [address] [place] [address] Yane Grant MA 12/04/2024 9:40 AM EDT Routine [facility] [place] [address] [place] [address] Scooby Alvarado, Second trimester ([facility]); 18 weeks gestation of ([facility]); Well woman exam with routine gynecological exam; Screening, , for anatomic survey ([facility]); Screen for STD (sexually transmitted disease); Need for maternal serum alpha-protein (MSAFP) screening ([facility]) 12/04/2024 Clinisync Result Encounter [facility] External Department Unsolicited Scooby Alvarado, 12/04/2024 External Result Encounter [facility] External Department Unsolicited Deborah Kwan PA 12/04/2024 Bamboo flowsheet [facility] [address] [place] [address] Scooby Alvarado, 12/04/2024 Travel 11/13/2024 10:40 AM EDT Routine [facility] [place] [address] [place] [address] Scooby Alvarado DO 15 weeks gestation of ([facility]); Second trimester ([facility]); Diet controlled gestational diabetes mellitus (GDM), antepartum ([facility]); Gestational diabetes mellitus (GDM), antepartum, gestational diabetes method of control unspecified ([facility]); Elevated glucose tolerance test 11/13/2024 Abstract [facility] [place] [address] [place] [address] Scooby Alvarado, 11/13/2024 Results Follow-Up [facility] [place] [address] Viola Washington LPN 11/13/2024 Bamboo flowsheet [facility] OB [address] [place], [place] [address] [address] Scooby Alvarado, DO 11/11/2024 Clinisync Result Encounter [facility] External Department Unsolicited Scooby Alvarado, DO 11/11/2024 Travel 10/16/2024 1:30 PM EDT Initial [facility] [place] [address] [place]: 11w2d 10/16/2024 1:00 PM EDT Ancillary Procedure [facility] [place] [address] Missed menses 10/15/2024 Travel from Last 3 [...] Description 01/01/2025 1:30 PM EDT Routine [facility] [place] [address] Deborah Kwan PA [address] [place] [address] [place] [address] Health Maintenance Due Date Last Done Comments Cervical Cancer Screening 12/04/2029 HPV/Cotest 12/04/2029 Pap Smear 12/04/2029 12/04/2024 Influenza Vaccine Completed 04/04/2024, , 04/01/2022, Additional history exists Procedures Procedure Name Priority Date/Time Associated Diagnosis Comments RECURRENT VAGINITIS (HTRX) Routine 12/04/2024 3:26 PM EDT POCT URINALYSIS DIPSTICK Routine 12/04/2024 10:27 AM EDT Second trimester ([facility]) IGP,APTIMA HPV,AGE GDLN Routine 12/04/2024 10:06 AM EDT PAP SMEAR Routine 12/04/2024 12:00 AM EDT CULTURE, URINE, ROUTINE Routine 11/13/2024 4:39 PM EDT Missed menses POCT URINALYSIS DIPSTICK Routine 11/13/2024 11:04 AM EDT 15 weeks gestation of ([facility]) Second trimester ([facility]) HBSAG SCREEN Routine 11/11/2024 11:26 AM EDT [...] menses from Last 3 Months Results * RECURRENT VAGINITIS (HTRX) (12/04/2024 3:26 PM EDT) [facility] ATOPOBIUM VAGINAE 0.000 19.961 - 24.689 ppm 12/06/2024 7:42 AM EDT [facility] ATOPOBIUM VAGINAE Not Detected 19.961 - 24.689 ppm 12/06/2024 7:42 AM EDT [facility] BVAB 2,3 (BACTERIAL VAGINOSIS ASSOCIATED BACTERIA 2, 3); MOBILUNCUS SPP 0.000 19.961 - 24.689 ppm 12/06/2024 7:42 AM EDT [facility] BVAB 2,3 (BACTERIAL VAGINOSIS ASSOCIATED BACTERIA 2, 3); MOBILUNCUS SPP Not Detected 19.961 - 24.689 ppm 12/06/2024 7:42 AM EDT [facility] KENA ALBICANS, PARAPSILOSIS, TROPICALIS 0.000 19.961 - 30.770 ppm 12/06/2024 7:42 AM EDT [facility] KENA ALBICANS, PARAPSILOSIS, TROPICALIS Not Detected 19.961 - 30.770 ppm 12/06/2024 7:42 AM EDT [facility] KENA GLABRATA 0.000 23.000 - 32.138 ppm 12/06/2024 7:42 AM EDT [facility] KENA GLABRATA Not Detected 23.000 - 32.138 ppm 12/06/2024 7:42 AM EDT [facility] KENA KRUSEI 0.000 23.000 - 32.271 ppm 12/06/2024 7:42 AM EDT [facility] KENA KRUSEI Not Detected 23.000 - 32.271 ppm 12/06/2024 7:42 AM EDT [facility] CHLAMYDIA TRACHOMATIS 0.000 23.000 - 31.467 ppm 12/06/2024 7:42 AM EDT [facility] CHLAMYDIA TRACHOMATIS Not Detected 23.000 - 31.467 ppm 12/06/2024 7:42 AM EDT [facility] GARDNERELLA VAGINALIS 0.000 19.961 - 24.689 ppm 12/06/2024 7:42 AM EDT [facility] GARDNERELLA VAGINALIS Not Detected 19.961 - 24.689 ppm 12/06/2024 7:42 AM EDT [facility] MEGASPHAERA (TYPES 1, 2) 0.000 19.961 - 24.689 ppm 12/06/2024 7:42 AM EDT [facility] MEGASPHAERA (TYPES 1, 2) Not Detected 19.961 - 24.689 ppm 12/06/2024 7:42 AM EDT [facility] NEISSERIA GONORRHOEAE 0.000 23.000 - 32.117 ppm 12/06/2024 7:42 AM EDT [facility] NEISSERIA GONORRHOEAE Not Detected 23.000 - 32.117 ppm 12/06/2024 7:42 AM EDT [facility] TRICHOMONAS VAGINALIS 0.000 23.000 - 32.119 ppm 12/06/2024 7:42 AM EDT [facility] TRICHOMONAS VAGINALIS Not Detected 23.000 - 32.119 ppm 12/06/2024 7:42 AM EDT [facility] MYCOPLASMA GENITALIUM 0.000 19.961 - 24.689 ppm 12/06/2024 7:42 AM EDT [facility] MYCOPLASMA GENITALIUM Not Detected 19.961 - 24.689 ppm 12/06/2024 7:42 AM EDT [facility] Tissue 12/04/2024 3:26 PM EDT 12/06/2024 3:19 AM EDT Deborah RUBIN LAB BLOOD ORDERABLES Final Resul t [facility] [address] [place] [address] * POCT urinalysis dipstick manually resulted (12/04/2024 [...] TEST ENTER/EDIT OR DERABLES Final Result * IGP,APTIMA HPV,AGE GDLN (12/04/2024 10:06 AM EDT) AGE GDLN ACOG TESTING Note . [facility] Comment: TESTS RESULT FLAG UNITS REF RANGE LAB Clinician Provided Cytology Information Source.............Vagina Other.............. No. of containers..01 ThinPrep Vial Age Algo ACOG Karine... 31 FLAG LEGEND: L-Low Normal,H-High Normal,LL-Alert Low,HH-Alert High <-Panic Low,>-Panic High,A-Abnormal,AA-Critical Abnormal Performed at: 01 =G [address] [address] Cindy Pinzon MD, IGP, APTIMA HPV, RFX 16/18,45 Note . [facility] Comment: TESTS RESULT FLAG UNITS REF RANGE LAB DIAGNOSIS: 02 NEGATIVE FOR INTRAEPITHELIAL LESION OR MALIGNANCY. Specimen adequacy: 02 Satisfactory for evaluation. No endocervical component is identified. Performed by: Aniket Dela Cruz, Aboriginal Education Worker Coordinator ([facility]) . 02 Note: Note 02 The Pap [...] <-Panic Low,>-Panic High,A-Abnormal,AA-Critical Abnormal Performed at: [address] [address] Cindy Pinzon MD, HPV APTIMA Negative Negative [facility] Comment: This nucleic acid amplification test detects fourteen high- risk HPV types (16,18,31,33,35,39,45,51,52,56,58,59,66,68) without differentiation. Performed at: [address] [id number] Roller Staker: Cindy Pinzon MD, Phone: [phone] Performed at: [address] [id number] Rol[employer] Staker: Cidny Pinzon MD, Phone: [phone] 12/04/2024 10:0 6 AM EDT 12/04/2024 2:50 PM EDT Narrative VANESANC - 12/06/2024 12:08 PM EDT SPATULA-ALONE VAGINA us Scooby Alvarado DO LAB BLOOD ORDERABLES Final Resul t [facility] * Pap Smear (12/04/2024 12:00 AM EDT) Swab Cervical swab / Unknown Scooby Jenny DO LAB CYTOLOGY ORDERABLES Final Re sult Performing Organization Address [facility] Co de Phone Number EXTERNAL LAB * Urine culture (11/13/2024 4:39 PM EDT) Urine Urine specimen obtained by clean catch procedure / Unknown us Scooby Jenny DO LAB MICROBIOLOGY - GENERAL ORDER ALVIN Final Result Performing Organization Address [facility] Co de Phone Number EXTERNAL LAB * BOX TEST (11/11/2024 11:26 AM EDT) BOX TEST SENT OUT [facility] [address] [facility] [address] 11/11/24 [facility] 11/11/2024 11:2 6 AM EDT 11/11/2024 11:41 AM EDT Narrative CLINISYNC - 11/11/2024 11:46 AM EDT UNITY BOX Scooby Jenny DO LAB BLOOD ORDERABLES Final Resul t Performing Organization Address [facility] Phone Number [facility] * HBSAG SCREEN (11/11/2024 11:26 AM EDT) HBSAG SCREEN Negative Negative [facility] Comment: Performed at: [address] [id number] Roller Staker: Lars Cordova PhD, Phone: [phone] 11/11/2024 11:2 6 AM EDT 11/11/2024 11:41 AM EDT Narrative CLINISYNC - 11/12/2024 11:10 AM EDT us Scooby Jenny DO LAB BLOOD ORDERABLES Final Resul t Performing Organization Address [facility] Co de Phone Number [facility] * RAPID PLASMA REAGIN, QUANT (11/11/2024 11:26 AM EDT) RAPID PLASMA REAGIN, QUANT Non Reactive NonRea<1: 1 titer [facility] Comment: Please Note: This test does not meet current guidelines for screening and diagnosis of syphilis. This test is intended for following treatment response in patients being treated for syphilis infection. To screen for syphilis infection, a reflex cascade that includes both RPR and a treponema-specific assay should be utilized, such as Treponema pallidum (Syphilis) Screening [place]o (170256) or Rapid Plasma Reagin (RPR) Test With Reflex to Quantitative RPR and Confirmatory Treponema pallidum Antibodies (234554). Performed at: [address] [id number] Roller Staker: Lars Cordova PhD, Phone: [phone] 11/11/2024 11:2 6 AM EDT 11/11/2024 11:41 AM EDT Narrative CLINISYIA - 11/12/2024 11:10 AM EDT us Scooby Jenny DO LAB BLOOD ORDERABLES Final Resul t Performing Organization Address [facility]/ZIP Co de Phone Number [facility] TB * HIV AB/P24 AG WITH REFLEX (11/11/2024 11:26 AM EDT) Pathologist [facility] HIV AB/P24 AG SCREEN Non Reactive Non Reactive [facility] Comment: HIV-1/HIV-2 antibodies and HIV-1 p24 antigen were NOT detected. There is no laboratory evidence of HIV infection. HIV Negative Performed at: [address] [id number] Roller Staker: Lars Cordova PhD, Phone: [phone] 11/11/2024 11:2 6 AM EDT 11/11/2024 11:41 AM EDT Narrative CLINISYNC - 11/12/2024 5:08 AM EDT us Scooby Jenny DO LAB BLOOD ORDERABLES Final Resul t Performing Organization Address [facility]/ZIP Co de Phone Number [facility] * HCV ANTIBODY RFX TO QUANT PCR (11/11/2024 11:26 AM EDT) HCV AB Non Reactive Non Reactive [facility] INTERPRETATION: Comment . TB Comment: Not infected with HCV unless early or acute infection is suspected (which may be delayed in an immunocompromised individual), or other evidence exists to indicate HCV infection. Performed at: - [address] [id number] Roller Staker: Lars Cordova PhD, Phone: [phone] 11/11/2024 11:2 6 AM EDT 11/11/2024 11:41 AM EDT Narrative CLINISYNC - 11/12/2024 7:08 AM EDT Scooby Jenny DO LAB BLOOD ORDERABLES Final Resul t Performing Organization Address [facility] Co de Phone Number [facility] * MLR HEMOGLOBIN A1C (11/11/2024 11:26 AM EDT) Pathologist [facility] GLYCOHEMOGLOBIN A1C 6.0 4.5 - 6.2 % [facility] Comment: ADA RECOMMENDED LIMIT 4.0 - 6.0 ADA THERAPEUTIC TARGET < 7.0 ACTION SUGGESTED > 7.0 ESTIMATED AVERAGE GLUCOSE 126 mg/dL TB 11/11/2024 11:2 6 AM EDT 11/11/2024 11:41 AM EDT Narrative CLINISYNC - 11/11/2024 12:30 PM EDT Scooby Jenny DO CLINISYNC Final Result [facility] * ALL TYPE AND SCREEN (11/11/2024 11:26 AM EDT) Pathologist [facility] BLOOD TYPE A Positive [facility] ANTIBODY SCREEN NEGATIVE TB 11/11/2024 11:2 6 AM EDT 11/11/2024 11:41 AM EDT Narrative CLINISYNC - 11/11/2024 1:08 PM EDT [facility] , Scooby Jenny DO CLINISYNC Final Result [facility] * ALL RUBELLA IGG AB (11/11/2024 11:26 AM EDT) [facility] RUBELLA ANTIBODIES, IGG 1.62 Immune >0.99 index [facility] Comment: Non-immune <0.90 Equivocal 0.90 - 0.99 Immune >0.99 Performed at: [address] [id number] Roller Staker: Lars Cordova PhD, Phone: [phone] 11/11/2024 11:2 6 AM EDT 11/11/2024 11:41 AM EDT Narrative CLINISYNC - 11/12/2024 7:08 AM EDT Scooby Jenny DO CLINISYNC Final Result Performing Organization Address [facility]/ZIP Co de Phone Number [facility] * (ABNORMAL) ALL CBC WITH AUTO DIFF (11/11/2024 11:26 AM EDT) [facility] TB WBC 12.6(H) 4.0 - 11.0 10 3/uL [facility] TB RBC 4.25 4.20 - 5.40 10 6/uL [facility] HGB 11.8(L) 12.0 - 16.0 g/dL TB TB HCT 35.7(L) 36.0 - 48.0 % TB TB MCV 84.0 81.0 - 99.0 fL [facility] MCH 27.8 26.7 - 34.0 pg [facility] TB MCHC 33.1 29.9 - 35.2 g/dL TB TB RDW 14.5 11.0 - 15.0 % [facility] [...] Narrative CLINISYNC - 11/11/2024 11:57 AM EDT Scooby Jenny DO CLINISYNC Final Result [facility] * TB DRUG SCREEN RAPID (URINE) (11/11/2024 [...] AM EDT 11/11/2024 11:41 AM EDT Narrative [facility] - 11/11/2024 12:08 PM EDT us Scooby Jenny DO CLINISYNC Final Result [facility] * (ABNORMAL) POCT , urine manually resulted [...] II, MD, PHD at 16-Oct-2024 11:21:08 PM [facility] Procedure Note Ekaterina Carroll MD - [...] signed by EKATERINA CARROLL II, MD, PHD [id number] 11:21:08 PM [facility] us Scooby Alvarado DO IMG OB US PROCEDURES Final Resul t from Last 3 Months Insurance
== END 2024-12-19 09:57 | disposition home or self-care (01) ==
LOC: US 09:56
PROVIDERS: Visit Provider Obstetrics & Gynecology
DX: Z36.89 Encounter for other specified antenatal screening (principal); Z3A.19 19 weeks gestation of pregnancy
CPT/HCPCS: 76805; 76817

== ENCOUNTER 2025-02-13 06:59 | Outpatient (OUT) | payer MEDICAID, SELFPAY ==
--- OUTSIDE RECORDS SUMMARY | 2025-02-13 07:03 | XMS_ITS | CCD ---
Author Organization [facility] CliniSyny Care Team Providers Care Hvac/R Instructor Name Role Phone RENAY OTOOLE Attending Unavailable [...] REQUEST, NONE LISTED Primary Care Unavaila ble EJNNY, DR YOUNG Attending Unavailable JENNY, DR YOUNG [...] DR NONE LISTED Primary Care Unavaila ble WEST, DR NADIA Harrison Consulting Unavailable SYDNIE, RENAY Consulting Unavailable SYDNIE, RENAY Attending Unavailable SYDNIE, RENAY Admitting Unavailable DARIENEBHARSHA, DR ANGELO Vaz Consulting Unavailable REQUEST, DR NONE LISTED Primary Care Unavaila ble SYDNIE, RENAY Consulting Unavailable HIGHLANDER, NAT Attending Unavailable HIGHLANDER, NAT Admitting Unavailable REQUEST, DR NONE LISTED Primary Care Unavaila ble KELLY, NAT Consulting Unavailable SYDNIE, RENAY Admitting Unavailable SYDNIE, RENAY Consulting Unavailable SYDNIE, RENAY Attending Unavailable MISC, DR GILBERT Primary Care Unavailable SYDNIE, RENAY Admitting Unavailable SYDNIE, RENAY Consulting Unavailable SYDNIE, RENAY Attending Unavailable MISC, DR GILBERT Primary Care Unavailable JENNY, DR YOUNG Admitting Unavailable WEST, DR NADIA [...] JONATHAN PHILIP Attending UnavailCODY Flores Admitting Unavailable Unavailable Primary Care Provider Unavailchanel gimenez No Pcp, No Pcp Primary Care Provider UnavailCHINYERE Mathew Attending Unavailable SCOOBY ALVARADO Referring Unavailable NO PCP, NO PCP Primary Care Unavailable SCOOBY ALVARADO Attending Unavailable SCOOBY ALVARADO Attending Unavailable DEBORAH RODRIGUEZ Attending Unavailable SCOOBY ALVARADO Attending Unavailable Medications Current Medications Medication Drug Class(es) Dates Sig (Normalized) Sig (Original) Blood Glucose Monitoring Suppl (D-Care Glucometer) w/Device kit (15 sources) Start: 11-13-2024 End: 11-13-2025 Blood Glucose Monitoring Suppl (D-Care Glucometer) w/Device kit Indications: Gestational diabetes mellitus (GDM), antepartum, gestational diabetes method of control unspecified (HHS-HCC) , Elevated glucose tolerance test 1 kit Daily Use four times daily to check FSBS. In the morning prior to breakfast & 1 hour after each meal for a total of 4times daily. 1 kit 11/13/2024 11/13/2025 Active Start: 11-13-2024 End: 11-13-2025 Blood Glucose Monitoring Sup pl (D-Care Glucometer) w/Device kit Indications: Gestational diabetes mellitus (GDM), antepartum, gestational diabetes method of control unspecified , Elevated glucose tolerance test 1 kit Daily Use four times daily to check FSBS. In the morning prior to breakfast & 1 hour after each meal for a total of 4times daily. 1 kit 11/13/2024 11/13/2025 Active Ethinyl Estradiol / norgestimate (2 sources) Progestin, Estrogen Start: 05-11-2020 take 1 tablet by mouth once daily norgestimate-ethinyl estradioL (ORTHO-CYCLEN) 0.25-35 mg-mcg per tablet Indications: Encounter for contraceptive management, unspecified type Take 1 tablet by mouth daily. 56 tablet 1 05/11/2020 Active isopropyl alcohol 0.7 ml/ml medicated pad (15 sources) Start: 11-13-2024 Alcohol Swabs (Alcohol Prep Pad) 70 % pads Indications: Gestational diabetes mellitus (GDM), antepartum, gestational diabetes method of control unspecified (HHS-HCC) , Elevated glucose tolerance test Apply 1 Pad topically Daily Use four times daily to check FSBS. 150 each 3 11/13/2024 Active polysaccharide iron complex 391 mg oral capsule (3 sources) Start: 02-04-2024 take 1 capsule by mouth once daily ProFe 391.3 (180 Fe) MG capsule Take 1 capsule by mouth Daily 02/04/2024 Active Gcffypqj-Fnl-Xx-FA ( 1 + IRON PO) (17 sources) Dphbnpio-Jbt-Jj-FA ( 1 + IRON PO) Take by mouth Active Problems Active Problems Problem Classification Problem Date Documented Date Episodic/Chronic Abdominal pain (1 source) Abdominal pain Onset: 12-20-2023 Episodic Cancer of cervix (1 source) Low grade squamous intraepithelial lesion on cytologic smear of cervix (LGSIL); Translations: [LGSIL ON CYTOLOGIC SMEAR OF CERVIX] Onset: 11-11-2021 Episodic Diabetes mellitus without complication (6 sources) Other abnormal glucose; Translations: [Abnormal glucose tolerance test] Onset: 04-30-2021 Episodic Diabetes or abnormal glucose tolerance complicating ; childbirth; or the puerperium (6 sources) Gestational diabetes mellitus, class A>1<; Translations: [Gestational diabetes mellitus in , diet controlled] Onset: 11-24-2024 11-13-2024 Episodic Hemorrhage during ; abruptio placenta; placenta previa (1 source) Antepartum hemorrhage, unspecified, unspecified trimester; Translations: [Antepartum hemorrhage, unspecified, unspecified trimester] Onset: 12-19-2023 Episodic Immunizations and screening for infectious disease (3 sources) Contact with and (suspected) exposure to other viral communicable diseases; Translations: [Patient encounter status] Onset: 07-09-2021 Resolved: 07-09-2021 Episodic Menstrual disorders (6 sources) Secondary amenorrhea; [...] 08-08-2021 Chronic Other and delivery including normal (20 sources) Encounter for routine follow-up; Translations: [Single live ] Onset: 01-28-2021 Episodic Other screening for suspected conditions (not mental disorders or infectious disease) (14 sources) Encounter for screening for malignant neoplasm of cervix; Translations: [Encounter for screening, unspecified] Onset: 04-07-2021 Episodic Residual codes; unclassified (1 source) High risk heterosexual behavior; Translations: [High risk heterosexual behavior] Onset: 03-01-2022 Episodic Residual codes; unclassified (2 sources) Gestation period, 15 weeks; Translations: [15 weeks gestation of ] 11-13-2024 Episodic Residual codes; unclassified (2 sources) Gestation period, 18 weeks; Translations: [18 weeks gestation of ] 12-04-2024 Episodic Residual codes; unclassified (2 sources) Gestation period, 22 weeks; Translations: [22 weeks gestation of ] 01-01-2025 Episodic Residual codes; unclassified (2 sources) Gestation period, 26 weeks; Translations: [26 weeks gestation of ] 02-02-2025 Episodic Spondylosis; intervertebral disc disorders; other back problems (1 source) Backache Onset: 12-19-2023 Episodic Unclassified (1 source) CONTACT W/AND (SUSP) EXPOS COVID-19; Translations: [CONTACT W/AND (SUSP) EXPOS COVID-19] Onset: 08-08-2021 Unclassified (1 source) Vaginal Bleeding - 7wks preg Onset: 12-19-2023 Past or Other Problems Problem Classification Problem Date Documented Date Episodic/Chronic Deficiency and other anemia (1 source) Anemia, unspecified; Translations: [ANEMIA UNSPECIFIED] Onset: 06-13-2021 Episodic OB-related trauma to perineum and vulva (1 source) Other specified trauma to perineum and vulva; Translations: [OTHER SPEC TRAUMA PERINEUM AND VULVA] Onset: 08-08-2021 Episodic Other complications of (1 source) Maternal care for other known or suspected poor growth, third trimester, not applicable or unspecified; Translations: [MAT CARE OTH CT FTL GRTH 3RD TM UNS] Onset: 08-08-2021 [...] WEEKS GESTATION OF ] Onset: 03-21-2021 Episodic Spontaneous (3 sources) Complete or unspecified spontaneous without complication; Translations: [Miscarriage] Onset: 12-20-2023 12-20-2023 Episodic Results Test Name Value Interpretation Reference Range Facility Urinalysis macro (dipstick) panel (U)on 02-02-2025 Bilirubin, UA Negative Negative - 4(70) +++ mg/dL [facility] Blood, UA Negative Negative - 50 Celestino/mcL [facility] Clarity, UA Clear [facility] Color, UA Yellow [facility] Glucose, UA Negative Negative - 1999(110) ++++ mg/dL [facility] Interpretation and review of laboratory results Abnormal [facility] Ketones, UA Positive Negative - 160(16) ++++ mg/dL [facility] Comment on above: Trace Leukocytes, UA Positive Negative - 500+++ Dodie/mcL [facility] Comment on above: Small Nitrite, UA Negative Negative - Positive [facility] pH, UA 6 5 - 9 [facility] Protein, UA Trace Negative - 1999(20) ++++ mg/dL [facility] Spec Grav, UA 1.03 1 - 1.03 [facility] Urobilinogen, UA 0.2 0.2 - 12 mg/dL [facility] US OB LIMITED 1+ FETUSESon 0 01-26-2025 OB LIMITED 1+ FETUSES FINDINGS: Single viable intrauterine , breech presentation with normal cardiac and activity, 15 0 bpm. Age appropriate, normal visualization of the left ventricular and right ventricular outflow tracts. IMPRESSION: Normal cardiac and outflow tract anatomy. TRANSCRIBED BY: ELECTRONICALLY SIGNED BY: Logan Caal MD Normal Not Available Comment on above: Order Comment: OB INCOMPLETE ANATOMY Estimated Date of Delivery: 05/05/25 Gestational Age as of 12/30/2024: 22w0d Urinalysis macro (dipstick) panel (U)on 01-01-2025 Bilirubin, UA Negative Negative - 4(70) +++ mg/dL [facility] Blood, UA Negative Negative - 50 Celestino/mcL [facility] Clarity, UA Clear [facility] re Color, UA Yellow [facility] Glucose, UA Negative Negative - 1999(110) ++++ mg/dL [facility] Interpretation and review of laboratory results Normal [facility] Ketones, UA Negative Negative - 160(16) ++++ mg/dL [facility] Leukocytes, UA Negative Negative - 500+++ Dodie/mcL [facility] Nitrite, UA Negative Negative - Positive [facility] pH, UA 7 5 - 9 [facility] Protein, UA Trace Negative - 1999(20) ++++ mg/dL [facility] Spec Grav, UA 1.025 1 - 1.03 [facility] Urobilinogen, UA 0.2 0.2 - 12 mg/dL [facility] No Panel InformationOrdered By: Radiologist Radiology on 12-19-2024 [employer] Work Phone: No Panel Informationon 12-19 Radiology Study observation (narrative) [facility] US OB ANATOMYon 12-19-[address] [address] Ultrasound Report Signed Patient: PARIS MOSQUEDA MR#: [id number] : 1990 Acct:[id number] Age/Sex: 34 / F ADM Date: 12/19/24 Loc: US Attending Dr: Scooby Alvarado D.O. Ordering Physician: Scooby Alvarado D.O. Date of Service: 12/19/24 Procedure(s): US OB anatomy Accession Number(s): [id number] cc: [facility], [place] ; Scooby Alvarado D.O. [address] [address] Patient Name: PARIS MOSQUEDA MRN: [id number] date: 1990 Sex: F Assigned Patient Location: US Current Patient Location: US Accession/Order Number: [id number] Exam Date: 12/19/2024 11:33 Report Date: 12/19/2024 11:39 At the request of: SCOOBY ALVARADO DO Procedure: US OB anatomy CLINICAL DATA: anatomy survey ULTRASOUND OB ANATOMY COMPARISON: None There is a single live intrauterine gestation in breech presentation. There is cardiac and somatic activity with heart rate of 150 bpm. The placenta is anterior and within normal limits for appearance and position. The amniotic fluid volume is subjectively normal. The neural axis and all 4 extremities were surveyed and no abnormalities were detected. The stomach, bladder, kidneys, three-vessel cord with insertion, 4 chamber heart, diaphragm, facial features and male genitalia are seen. The ventricular outflow tracts were not well visualized due to position. The following measurements were obtained: Biparietal diameter 4.6 cm 19 weeks 5 days 23% Head circumference 17.0 cm 19 weeks 4 days 20% Abdominal circumference 14.5 cm 19 weeks 5 days 20% Femur length 3.0 cm 19 weeks 2 days 11% The composite ultrasound age based on these measurements is 19 weeks 4 days +/- 1 week 3 days. The estimated date of delivery is May 11, 2025. The date of delivery based on last menstrual period is May 05, 2025. The estimated weight is 11 ounces +/- 2 ounces (10%). US/US OB anatomy IMPRESSION: SINGLE LIVE INTRAUTERINE GESTATION AT 19 WEEKS 4 DAYS. INCOMPLETE VISUALIZATION OF THE VENTRICULAR OUTFLOW TRACTS. OTHERWISE UNREMARKABLE ANATOMY SURVEY. ULTRASOUND OB CERVICAL LENGTH COMPARISON: None The cervix was evaluated with a transvaginal probe. The cervix is closed. The estimated length is 4.2 cm. There is no evidence of previa. IMPRESSION: NORMAL CLOSED CERVIX. Impression dictated by: Sarita Evangelista M.D. 12/19/2024 11:39 AM Dictation Location: [place] [address] Electronically authenticated by: [id number] Y Date: 12/19/2024 11:39 Dictated By: Sarita Evangelista M.D. Signed By: 12/19/24 1142 DD/ 1139 TD/TT: [employer]: [facility] Radiology, Radiologist, MD - 12/19/2024 [place] [address] Ultrasound Report Signed Patient: PARIS MOSQUEDA MR#: [id number] : 1990 Acct:[id number] Age/Sex: 34 / F ADM Date: 12/19/24 Loc: US Attending Dr: Scooby Alvarado D.O. Ordering Physician: Scooby Alvarado D.O. Date of Service: 12/19/24 Procedure(s): US OB anatomy Accession Number(s): [id number] cc: [facility], [place] ; Scooby Alvarado D.O. The [address] [address] Patient Name: PARIS MOSQUEDA MRN: [facility]:[id number] date: 1990 Sex: F Assigned Patient Location: US Current Patient Location: US Accession/Order Number: [id number] Exam Date: 12/19/2024 11:33 Report Date: 12/19/2024 11:39 At the request of: SCOOBY ALVARADO DO Procedure: US OB anatomy CLINICAL DATA: anatomy survey ULTRASOUND OB ANATOMY COMPARISON: None There is a single live intrauterine gestation in breech presentation. There is cardiac and somatic activity with heart rate of 150 bpm. The placenta is anterior and within normal limits for appearance and position. The amniotic fluid volume is subjectively normal. The neural axis and all 4 extremities were surveyed and no abnormalities were detected. The stomach, bladder, kidneys, three-vessel cord with insertion, 4 chamber heart, diaphragm, facial features and male genitalia are seen. The ventricular outflow tracts were not well visualized due to position. The following measurements were obtained: Biparietal diameter 4.6 cm 19 weeks 5 days 23% Head circumference 17.0 cm 19 weeks 4 days 20% Abdominal circumference 14.5 cm 19 weeks 5 days 20% Femur length 3.0 cm 19 weeks 2 days 11% The composite ultrasound age based on these measurements is 19 weeks 4 days +/- 1 week 3 days. The estimated date of delivery is May 11, 2025. The date of delivery based on last menstrual period is May 05, 2025. The estimated weight is 11 ounces +/- 2 ounces (10%). US/US OB anatomy IMPRESSION: SINGLE LIVE INTRAUTERINE GESTATION AT 19 WEEKS 4 DAYS. INCOMPLETE VISUALIZATION OF THE VENTRICULAR OUTFLOW TRACTS. OTHERWISE UNREMARKABLE ANATOMY SURVEY. ULTRASOUND OB CERVICAL LENGTH COMPARISON: None The cervix was evaluated with a transvaginal probe. The cervix is closed. The estimated length is 4.2 cm. There is no evidence of previa. IMPRESSION: NORMAL CLOSED CERVIX. Impression dictated by: Sarita Evangelista M.D. 12/19/2024 11:39 AM Dictation Location: [place] [address] Electronically authenticated by: [id number] Y Date: 12/19/2024 11:39 Dictated By: Sarita Evangelista M.D. Signed By: 12/19/24 1142 DD/ 1139 TD/TT: [employer]: [facility] CERVICAL LENGTHon 11-24 [place] [address] Ultrasound Report Signed Patient: PARIS MOSQUEDA MR#: [id number] : 1990 Acct:[id number] Age/Sex: 34 / F ADM Date: 12/19/24 Loc: US Attending Dr: Scooby Alvarado D.O. Ordering Physician: Scooby Alvarado D.O. Date of Service: 12/19/24 Procedure(s): US OB cervical length Accession Number(s): [id number] cc: [facility], [place] ; Scooby Alvarado D.O. [place] [address] Patient Name: PARIS MOSQUEDA MRN: [id number] date: 1990 Sex: F Assigned Patient Location: US Current Patient Location: US Accession/Order Number: [id number] Exam Date: 12/19/2024 11:33 Report Date: 12/19/2024 11:39 At the request of: SCOOBY ALVARADO DO Procedure: US OB anatomy CLINICAL DATA: anatomy survey ULTRASOUND OB ANATOMY COMPARISON: None There is a single live intrauterine gestation in breech presentation. There is cardiac and somatic activity with heart rate of 150 bpm. The placenta is anterior and within normal limits for appearance and position. The amniotic fluid volume is subjectively normal. The neural axis and all 4 extremities were surveyed and no abnormalities were detected. The stomach, bladder, kidneys, three-vessel cord with insertion, 4 chamber heart, diaphragm, facial features and male genitalia are seen. The ventricular outflow tracts were not well visualized due to position. The following measurements were obtained: Biparietal diameter 4.6 cm 19 weeks 5 days 23% Head circumference 17.0 cm 19 weeks 4 days 20% Abdominal circumference 14.5 cm 19 weeks 5 days 20% Femur length 3.0 cm 19 weeks 2 days 11% The composite ultrasound age based on these measurements is 19 weeks 4 days +/- 1 week 3 days. The estimated date of delivery is May 11, 2025. The date of delivery based on last menstrual period is May 05, 2025. The estimated weight is 11 ounces +/- 2 ounces (10%). US/US OB cervical length IMPRESSION: SINGLE LIVE INTRAUTERINE GESTATION AT 19 WEEKS 4 DAYS. INCOMPLETE VISUALIZATION OF THE VENTRICULAR OUTFLOW TRACTS. OTHERWISE UNREMARKABLE ANATOMY SURVEY. ULTRASOUND OB CERVICAL LENGTH COMPARISON: None The cervix was evaluated with a transvaginal probe. The cervix is closed. The estimated length is 4.2 cm. There is no evidence of previa. IMPRESSION: NORMAL CLOSED CERVIX. Impression dictated by: Sarita Evangelista M.D. 12/19/2024 11:39 AM Dictation Location: [place] [address] Electronically authenticated by: [id number] Y Date: 12/19/2024 11:39 Dictated By: Sarita Evangelista M.D. Signed By: 12/19/24 1142 DD/ 1139 TD/TT: [employer]: [facility] Radiology, Radiologist, MD - 12/19/2024 [place] [address] Ultrasound Report Signed Patient: PARIS MOSQUEDA MR#: [id number] : 1990 Acct:[id number] Age/Sex: 34 / F ADM Date: 12/19/24 Loc: US Attending Dr: Scooby Alvarado D.O. Ordering Physician: Scooby Alvarado D.O. Date of Service: 12/19/24 Procedure(s): US OB cervical length Accession Number(s): [id number] cc: [facility] [place] ; Scooby Alvarado D.O. The [place] [address] Patient Name: PARIS MOSQUEDA MRN: [facility]:[id number] date: 1990 Sex: F Assigned Patient Location: Current Patient Location: US Accession/Order Number: [id number] Exam Date: 12/19/2024 11:33 Report Date: 12/19/2024 11:39 At the request of: SCOOBY ALVARADO DO Procedure: US OB anatomy CLINICAL DATA: anatomy survey ULTRASOUND OB ANATOMY COMPARISON: None There is a single live intrauterine gestation in breech presentation. There is cardiac and somatic activity with heart rate of 150 bpm. The placenta is anterior and within normal limits for appearance and position. The amniotic fluid volume is subjectively normal. The neural axis and all 4 extremities were surveyed and no abnormalities were detected. The stomach, bladder, kidneys, three-vessel cord with insertion, 4 chamber heart, diaphragm, facial features and male genitalia are seen. The ventricular outflow tracts were not well visualized due to position. The following measurements were obtained: Biparietal diameter 4.6 cm 19 weeks 5 days 23% Head circumference 17.0 cm 19 weeks 4 days 20% Abdominal circumference 14.5 cm 19 weeks 5 days 20% Femur length 3.0 cm 19 weeks 2 days 11% The composite ultrasound age based on these measurements is 19 weeks 4 days +/- 1 week 3 days. The estimated date of delivery is May 11, 2025. The date of delivery based on last menstrual period is May 05, 2025. The estimated weight is 11 ounces +/- 2 ounces (10%). US/US OB cervical length IMPRESSION: SINGLE LIVE INTRAUTERINE GESTATION AT 19 WEEKS 4 DAYS. INCOMPLETE VISUALIZATION OF THE VENTRICULAR OUTFLOW TRACTS. OTHERWISE UNREMARKABLE ANATOMY SURVEY. ULTRASOUND OB CERVICAL LENGTH COMPARISON: None The cervix was evaluated with a transvaginal probe. The cervix is closed. The estimated length is 4.2 cm. There is no evidence of previa. IMPRESSION: NORMAL CLOSED CERVIX. Impression dictated by: Sarita Evangelista M.D. 12/19/2024 11:39 AM Dictation Location: [place] [address] Electronically authenticated by: [id number] Y Date: 12/19/2024 11:39 Dictated By: Sarita Evangelista M.D. Signed By: 12/19/24 1142 DD/ 1139 TD/TT: [employer]: SHERLY Antonio IGP,APTIMA HPV,AGE GDLNon AGE GDLN ACOG TESTING Note . [facility] Comment on above: TESTS RESULT FLAG UN ITS REF RANGE LAB Clinician Provided Cytology Information Source.............Vagina Other.............. No. of containers..01 ThinPrep Vial Age Ivonne GONSALVES Karine... 3065 FLAG LEGEND: L-Low Normal,H-High Normal,LL-Alert Low,HH-Alert High <-Panic Low,>-Panic High,A-Abnormal,AA-Critical Abnormal Performed at: 01 =[address] [address] Cindy Pinzon MD, HPV APTIMA Negative Negative [facility] Comment on above: This nucleic acid am plification test detects fourteen high- risk HPV types (16,18,31,33,35,39,45,51,52,56,58,59,66,68) without differentiation. Performed at: =[address] [id number] Marketing Strategy Lead: Cindy Pinzon MD, Phone: [phone] Performed at: [address] [id number] Marketing Strategy Lead: Cindy Pinzon MD, Phone: [phone] IGP, APTIMA HPV, RFX 16/18,45 Note . [facility] Comment on above: TESTS RESULT FLAG UN ITS REF RANGE LAB DIAGNOSIS: 02 NEGATIVE FOR INTRAEPITHELIAL LESION OR MALIGNANCY. Specimen adequacy: 02 Satisfactory for evaluation. No endocervical component is identified. Performed by: 02 Yanni Dela Cruz, Methods Engineer (ASCP) . 02 Note: Note 02 The [...] <-Panic Low,>-Panic High,A-Abnormal,AA-Critical Abnormal Performed at: [address] [address] Cindy Pinzon MD, SPATULA-[facility]ONE VAGINA [facility] RECURRENT VAGINITIS (HTRX)on 12-06-2024 ATOPOBIUM VAGINAE 0 [facility] ATOPOBIUM VAGINAE Not detected [facility] BVAB 2,3 (BACTERIAL VAGINOSIS ASSOCIATED BACTERIA 2, 3); MOBILUNCUS SPP 0 [facility] BVAB 2,3 (BACTERIAL VAGINOSIS ASSOCIATED BACTERIA 2, 3); MOBILUNCUS SPP Not detected [facility] KENA ALBICANS, PARAPSILOSIS, TROPICALIS 0 [facility] KENA ALBICANS, PARAPSILOSIS, TROPICALIS Not detected [facility] KENA GLABRATA 0 [facility] KENA GLABRATA Not detected [facility] KENA [facility]USEI 0 [facility] KE[facility] KRUSEI Not detected [facility] CHLAMYDIA TRACHOMATIS 0 [facility] CHLAMYDIA TRACHOMATIS Not detected N [facility] GARDNERELLA VAGINALIS 0 [facility] GARDNERELLA VAGINALIS Not detected N [facility] MEGASPHAERA (TYPES 1, 2) 0 [facility] MEGASPHAERA (TYPES 1, 2) Not detected [facility] MYCOPLASMA GENITALIUM 0 [facility] MYCOPLASMA GENITALIUM Not detected N [facility] NEISSERIA GONORRHOEAE 0 [facility] NEISSERIA GONORRHOEAE Not detected N [facility] TRICHOMONAS VAGINALIS 0 [facility] TRICHOMONAS VAGINALIS Not detected N [facility] Urinalysis macro (dipstick) panel (U)on 12-04-2024 Bilirubin, UA Negative Negative - (70) +++ mg/dL [facility] Blood, UA Negative Negative - 50 Celestino/mcL [facility] Clarity, UA Clear [facility] Color, UA Yellow [facility] Glucose, UA Negative Negative - 1999(110) ++++ mg/dL [facility] Interpretation and review of laboratory results Normal [facility] Ketones, UA Negative Negative - 160(16) ++++ mg/dL [facility] Leukocytes, UA Positive Negative - 500+++ Dodie/mcL [facility] Comment on above: small Nitrite, UA Negative Negative - Positive [facility] pH, UA 7 5 - 9 [facility] Protein, UA Negative Negative - 1999(20) ++++ mg/dL [facility] Spec Grav, UA 1.015 1 - 1.03 [facility] Urobilinogen, UA 0.2 0.2 - 12 mg/dL [facility] Glucose random or fasting- P OCTOrdered By: James Rader on 11-24-2024 External Glucose Fasting Or Random (Fbs) 94 [facility] Urinalysis macro (dipstick) panel (U)on 11-13-2024 Bilirubin, UA Negative Negative - 4(70) +++ mg/dL [facility] [facility] Blood, UA Negative Negative - 50 Celestino/mcL [facility] Clarity, UA Clear [facility] re Color, UA Yellow [facility] Health[facility] e Glucose, UA Negative Negative - 1999(110) ++++ mg/dL [facility] Interpretation and review of laboratory results Abnormal [facility] Ketones, UA Negative Negative - 160(16) ++++ mg/dL [facility] Leukocytes, UA Trace Negative - 500+++ Dodie/mcL [facility] Nitrite, UA Negative Negative - Positive [facility] pH, UA 6 5 - 9 [facility] ConferenceEdgecar e Protein, UA Negative Negative - 1999(20) ++++ mg/dL [facility] Spec Grav, UA 1.01 1 - 1.03 [facility] Urobilinogen, UA 0.2 0.2 - 12 mg/dL [facility] Health[facility] e BOX TESTon 11-11-2024 BOX TEST SENT OUT [facility]care BOX1 unity [facility] BOX2 11/11/24 [facility] HCG ( test) Ql (U)o n 10-16-2024 Interpretation and review of laboratory results Abnormal [facility] Preg Test, Ur Positive Negative [facility] Health[facility] US OB TRANSVAGINALon 025 US [...] II, MD, PHD at 16-Oct-2024 11:21:08 PM [facility] Normal Not Available Comment on above: [...] II, MD, PHD at 16-Oct-2024 11:21:08 PM [facility] Ekaterina French MD - 10/16/2024 [...] II, MD, PHD at 16-Oct-2024 11:21:08 PM [facility] Radiology Study observation (narrative) [facility] US Pelvis transvaginalOrdere d By: Ekaterina French on 10-16-2024 [facility] P21 e Work Phone: Urinalysis macro (dipstick) panel (U)on 10-16-2024 Bilirubin, UA Negative Negative - 4(70) +++ mg/dL [facility] Blood, UA Negative Negative - 50 Celestino/mcL [facility] Clarity, UA Clear [facility] re Color, UA Yellow [facility] P21 e Glucose, UA Negative Negative - 1999(110) ++++ mg/dL [facility] Interpretation and review of laboratory results Abnormal [facility] Ketones, UA Positive Negative - 160(16) ++++ mg/dL [facility] Comment on above: 80mg/dL Leukocytes, UA Positive Negative - 500+++ Dodie/mcL [facility] Comment on above: small Nitrite, UA Negative Negative - Positive [facility] pH, UA 5.5 5 - 9 [facility] P21 e Protein, UA Positive Negative - 1999(20) ++++ mg/dL [facility] Comment on above: 30mg/dL Spec Grav, UA 1.03 1 - 1.03 [facility] Urobilinogen, UA 0.2 0.2 - 12 mg/dL [facility] HGB AND HCTon 12-21-2023 Hematocrit (Bld) [Volume fraction] 28.7 % Low 35-47 [facility] Comment on above: Performed By: #### H H #### [facility] ([id number]) [address] [place] [address] Hemoglobin (Bld) [Mass/Vol] 9.8 g/dL Low 11.7-15.5 [facility] Comment on above: Performed By: #### H H #### [facility] ([id number]) [address] [place] [address] Surgical Pathologyon 024 Surgical Pathology Normal [facility] Comment on above: Result Comment: [facility] [address] [place] [address] Surgical Pathology Consultation Patient Name:SYDNIE MOSQUEDAB:1990 (Age: 33)Gender:FTaken:4Reported:12/28/2023hysician(s):Randy Greene MD ([phone])Copy To: Rec. #:[id number]: #[id number] Final Pathologic Diagnosis Products of conception; removal: Products of conception (gestational sac with immature chorionic villi) and fragments of decidua with acute inflammation and necrosis. Report Electronically Signed Out wacha/12/28/2023Pradeep Brannon MD Interpretation performed at [facility], [address] [place] [address], License number: [id number]. Clinical History Spontaneous , miscarriage. Gross Description Received in formalin labeled PANDA Karyotype: No Aggregate measurement: 5.2 x 3.8 x 2.0 cm. Placenta: 3.4 x 2.8 x 1.5 cm Decidua/Clot: 1.8 x 1.0 x 0.5 cm Gestational Sac: Yes, intact Tissue: No Molar Tissue: No Cassettes: A-C placenta (3, ss, [id number],m5) DM Received fresh-no site on container. POC for routine surgical path. Per Ariana Avendaño dm/12/21/2023GR Specimen(s) Received Products of conception Fee Codes(s): 1; 13861 US PREG LESS THAN 14 WKS WIT [...] Monroy MD on 12/21/2023 8:46 AM Normal [facility] BASIC METABOLIC PANLon 12-19 Anion gap [Moles/Vol] 6 mmol/L Normal 5-15 [facility] Comment on above: Performed By: #### B MP, CBCA, 05016-0 #### [facility] ([id number]) [address] [place] [address] Calcium [Mass/Vol] 8.9 mg/dL Normal 8.5-10.5 [facility] Comment on above: Performed By: #### B CHETAN NORWOOD, #### [facility] ([id number]) [address] [place] [address]249 Chloride [Moles/Vol] 105 mmol/L Normal 98-109 [facility] Comment on above: Performed By: #### B CHETAN NORWOOD, #### [facility] ([id number]) [address] [place] [address] 40934 CO2 [Moles/Vol] 24 mmol/L Normal 22-32 [facility] Comment on above: Performed By: #### B CHETAN NORWOOD, #### [facility] ([id number]) [address] [place] [address] 79961 Creatinine [Mass/Vol] 0.74 mg/dL Normal 0.40-1.00 [facility] Comment on above: Result Comment: METH OD TRACEABLE TO IDMS STANDARD Performed By: #### B CHETAN NORWOOD, #### [facility] ([id number]) [address] [place] [address] 63666 eGFR (CKD-EPI) NON-RACE DEPENDENT >90 Normal >59 [facility] Comment on above: Result Comment: Reported eGFR is based on the CKD-EPI 2020 equation that does not use a race coefficient. Performed By: #### B CHETAN NORWOOD, #### [facility] ([id number]) [address] [place] [address] 93846 Glucose [Mass/Vol] 149 mg/dL High 65-99 [facility] Comment on above: Performed By: #### B CHETAN NORWOOD, #### [facility] ([id number]) [address] [place] [address] 72337 Potassium [Moles/Vol] 3.6 mmol/L Normal 3.5-5.0 [facility] Comment on above: Performed By: #### B MP, CBCA, #### [facility] ([id number]) [address] [place] [address] 59337 Sodium [Moles/Vol] 135 mmol/L Normal 134-146 [facility] Comment on above: Performed By: #### B MP, CBCA, #### [facility] ([id number]) [address] [place] [address] 30346 Urea nitrogen [Mass/Vol] 10 mg/dL Normal 5-23 [facility] Comment on above: Performed By: #### B CUCO, CBCA, #### [facility] ([id number]) [address] [place] [address] 92827 CBC AND AUTO DIFFon 12-20-19 24 ABSOLUTE BASOPHIL 0.0 X10E9/L Normal 0.0-0.2 [facility] Comment on above: Performed By: #### B CUCO, CBCA, #### [facility] ([id number]) [address] [place] [address] 47381 ABSOLUTE NEUTROPHIL 4.9 X10E9/L Normal 1.5-6.6 [facility] Comment on above: Performed By: #### B MP, CBCA, #### [facility] ([id number]) [address] [place] [address] 98741 Basophils/100 WBC (Bld) 0.4 % Normal [facility] Comment on above: Performed By: #### B MP, CBCA, #### [facility] ([id number]) [address] [place] [address] 74261 Eosinophils (Bld) [#/Vol] 0.3 10*3/uL Normal 0.0-0.4 [facility] Comment on above: Performed By: #### B CUCO, CBCA, #### [facility] ([id number]) [address] [place] [address] 71214 Eosinophils/100 WBC (Bld) 2.3 % Normal [facility] Comment on above: Performed By: #### B CUCO, CBCA, #### [facility] ([id number]) [address] [place] [address] 91040 Erythrocyte distribution width (RBC) [Ratio] 13.8 % Normal 11.5-15.0 [facility] Comment on above: Performed By: #### B CUCO, CBCA, #### [facility] ([id number]) [address] [place] [address] 22887 Hematocrit (Bld) [Volume fraction] 34.8 % Low 35-47 [facility] Comment on above: Performed By: #### B CUCO, CBCA, #### [facility] ([id number]) [address] [place] [address] 11880 Hemoglobin (Bld) [Mass/Vol] 11.5 g/dL Low 11.7-15.5 [facility] Comment on above: Performed By: #### B CUCO, CBCA, #### [facility] ([id number]) [address] [place] [address] 63785 Lymphocytes (Bld) [#/Vol] 4.6 10*3/uL High 1.0-3.5 [facility] Comment on above: Performed By: #### B CUCO, CBCA, #### [facility] ([id number]) [address] [place] [address] 14962 Lymphocytes/100 WBC (Bld) 41.7 % Normal [facility] Comment on above: Performed By: #### B CUCO, CBCA, #### [facility] ([id number]) [address] [place] [address] 57841 MCH (RBC) [Entitic mass] 27.8 pg Normal 27-34 [facility] Comment on above: Performed By: #### B MP, CBCA, #### [facility] ([id number]) [address] [place] [address] 56527 MCHC (RBC) [Mass/Vol] 33.0 g/dL Normal 32-36 [facility] Comment on above: Performed By: #### B CUCO, CBCA, #### [facility] ([id number]) [address] [place] [address] 00950 MCV (RBC) [Entitic vol] 84 fL Normal 80-100 [facility] Comment on above: Performed By: #### B MP, CBCA, #### [facility] ([id number]) [address] [place] [address] 93113 Monocytes (Bld) [#/Vol] 1.2 10*3/uL High 0-0.9 [facility] Comment on above: Performed By: #### B MP, CBCA, #### [facility] ([id number]) [address] [place] [address] 18307 Monocytes/100 WBC (Bld) 11.1 % Normal [facility] Comment on above: Performed By: #### B MP, CBCA, #### [facility] ([id number]) [address] [place] [address] 09177 Neutrophils/100 WBC (Bld) 44.5 % Normal [facility] Comment on above: Performed By: #### B MP, CBCA, #### [facility] ([id number]) [address] [place] [address] 21799 Platelet mean volume (Bld) [Entitic vol] 7.6 fL Normal 7-12 [facility] Comment on above: Performed By: #### B MP, CBCA, #### [facility] ([id number]) [address] [place] [address] 14026 Platelets (Bld) [#/Vol] 323 10*3/uL Normal 150-450 [facility] Comment on above: Performed By: #### B MP, CBCA, #### [facility] ([id number]) [address] [place] [address] 39066 RBC COUNT 4.12 X10E12/L Normal 3.80-5.20 [facility] Comment on above: Performed By: #### B MP, CBCA, #### [facility] ([id number]) [address] [place] [address] 13721 WBC (Bld) [#/Vol] 11.0 10*3/uL Normal 4.0-11.0 [facility] Comment on above: Performed By: #### B MP, CBCA, #### [facility] ([id number]) [address] [place] [address] 48239 HCG.beta subunit IA 3rd IS Q non 12-20-2023 HCG.beta subunit Qn 5361 m[IU]/mL Normal [facility] Comment on above: Result Comment: NEW REFERENCE [...] neoplasms. Performed By: #### B MP, CBCA, 93548-0 #### [facility] ([id number]) [address] [place] [address] 81349 HCG ( test) Ql (U)o n 12-19-2023 Beta HCG ( test) Ql (U) Positive Abnormal NEG [facility] Comment on above: Performed By: #### 2 106-3 #### [facility] ([id number]) [address] [place] [address] 98681 HCG.beta subunit IA 3rd IS Q non 12-19-2023 HCG.beta subunit Qn 6620 m[IU]/mL Normal [facility] Comment on above: Result Comment: NEW REFERENCE [...] neoplasms. Performed By: #### 2 0415-6 #### [facility] ([id number]) [address] [place] [address] 33456 URN MACROSCOPIC NURon 06-26- 2024 BILIRUBIN NIKITA Small Abnormal NEG [facility] Comment on above: Performed By: #### N UM #### [facility] ([id number]) [address] [place] [address] 14935 BLOOD/HGB NIKITA Large Abnormal NEG [facility] Comment on above: Performed By: #### N UM #### [facility] ([id number]) [address] [place] [address] 10427 GLUCOSE NIKITA Negative Normal NEG [facility] Comment on above: Performed By: #### N UM #### [facility] ([id number]) [address] [place] [address] 24654 KETONES NIKITA Trace Abnormal NEG [facility] Comment on above: Performed By: #### N UM #### [facility] ([id number]) [address] [place] [address] 49919 LEUKOCYTE ESTERASE NIKITA Negative Normal NEG [facility] Comment on above: Performed By: #### N UM #### [facility] ([id number]) [address] [place] [address] 67420 NITRITE NIKITA Negative Normal NEG [facility] Comment on above: Performed By: #### N UM #### [facility] ([id number]) [address] [place] [address] 60826 PH NIKITA 6.0 Normal 5.0-8.5 [facility] Comment on above: Performed By: #### N UM #### [facility] ([id number]) [address] [place] [address] 90543 PROTEIN NIKITA 100 mg/dL Abnormal NEG [facility] Comment on above: Performed By: #### N UM #### [facility] ([id number]) [address] [place] [address] [place] [address] SPECIFIC GRAVITY NIKITA >=1.030 Normal 1.003-1.035 [facility] Comment on above: Performed By: #### N UM #### [facility] ([id number]) [address] [facility] [place] [address] UROBILINOGEN NIKITA 1.0 eu/dL Normal <1.1 [facility] Comment on above: Performed By: #### N UM #### [facility] ([id number]) [address] [facility], [place] [address] US PREG LESS THAN 14 WKS WIT [...] Overton MD on 12/19/2023 6:46 PM Normal [facility] Chlamydia/GC/Trich NAAon Chlamydia Trachomotis, CARLITOS Negative Normal Negative [facility] Comment on above: Performed By: #### C UU #### [facility] [address] [place] [address] #### GCCHLAMTRI #### [facility] , Neisseria Gonorrhoeae, CARLITOS Negative Normal Negative [facility] Comment on above: Performed By: #### C UU #### [facility] [address] [place] [address] #### GCCHLAMTRI #### [facility] , Trichomonas CARLITOS Negative Normal Negative [facility] Comment on above: Result Comment: Perf ormed at: =G - [facility] [address] [id number] Marketing Strategy Lead: Cindy Pinzon MD, Phone: [phone] PERFORMED BY: [place] [address] PATHOLOGIST DIAL EQUIPMENT ENGINEER BROOKLYNN PEARCE M.D. Performed By: #### C UU #### [address] #### GCCHLAMTRI #### [facility] , Urine Cultureon 03-01-2022 Bacteria identified Cx Nom (U) 30,000 colonies/ml mixed bacterial skin contaminants 2 Days PERFORMED BY: [place] [address] PATHOLOGIST DIAL EQUIPMENT ENGINEER BROOKLYNN PEARCE M.D. Normal [facility] Comment on above: Performed By: #### C UU #### [facility] [address] [place] [address] #### GCCHLAMTRI #### [facility] , Pap IG,rfx Aptima HPV all pt hon 11-16-2021 . . Normal [facility] Comment on above: Performed By: #### H IV12 #### [facility] [address] [address] Andriy Stein DIAGNOSIS: Comment Normal [facility] Comment on above: Result Comment: NEGA TIVE FOR INTRAEPITHELIAL LESION OR MALIGNANCY. THIS SPECIMEN WAS RESCREENED PART OF OUR ALTERATIONS MANAGER PROGRAM. Performed By: #### H IV12 #### [facility] [address] [place] [address] Andriy Stein Methodology: Comment Normal [facility] Comment on above: Result Comment: This liquid based ThinPrep(R) pap test was screened with the use of an image guided system. Performed By: #### H IV12 #### [facility] [address] [place] [address] Andriy Stein Note: Comment Normal [facility] [...] . Performed By: #### H IV12 #### [facility] [address] [place] [address] Andriy Stein Performed by: Comment Normal [facility] Comment on above: Result Comment: Nathalia Dela Cruz, Freight Booker (ASCP) Performed By: #### H IV12 #### [facility] [address] [place] [address] Andriy Stein QC reviewed by: Comment Normal [facility] Comment on above: Result Comment: Hebert Motley, Supervisory Freight Booker (ASCP) Performed By: #### H IV12 #### [facility] [address] [place] [address] Andriy Stein Reflex Criteria: Comment Normal [facility] Comment on above: Result Comment: The HPV DNA reflex criteria were not met with this specimen result therefore, no HPV testing was performed. . Performed By: #### H IV12 #### [facility] [address] [place] [address] Andriy Stein Specimen adequacy: Comment Normal [facility] Comment on above: Result Comment: Sati sfactory for evaluation. Endocervical and/or squamous metaplastic cells (endocervical component) are present. Performed By: #### H IV12 #### [facility] [address] [place] [address] Andriy Sarita CBC AUTO DIFFon 07-31-2021 BASO # 0.0 103/ul Normal 0.0-0.1 [facility] Comment on above: Performed By: #### H IV12 #### [facility] [address] [id number] Andriy Stein Basophils/100 WBC (Bld) 0.2 % Normal 0.2-2.0 [facility] Comment on above: Performed By: #### H IV12 #### [facility] [address] [address] Andriy Sarita EO # 0.2 103/ul Normal 0.0-0.7 [facility] Comment on above: Performed By: #### H IV12 #### [facility] [address] [place] [address] Andriy Stein Eosinophils/100 WBC (Bld) 1.4 % Normal 0.9-7.0 [facility] Comment on above: Performed By: #### H IV12 #### [facility] [address] [place] [address] Andriy Stein Erythrocyte distribution width (RBC) [Ratio] 16.9 % Critically high 11.0-15.0 [facility] Comment on above: Performed By: #### H IV12 #### [facility] [address] [place], [place] [address] Andriylogan Stein Hematocrit (Bld) [Volume fraction] 28.9 % Critically low 36.0-48.0 [facility] Comment on above: Performed By: #### H IV12 #### [facility] [address] [place] [address] Andriy Sarita Hemoglobin (Bld) [Mass/Vol] 9.2 g/dL Critically low 12.0-16.0 [facility] Comment on above: Result Comment: NUVIA ENT DELIVERED Performed By: #### H IV12 #### [facility] [address] [place], [place] [address] Andriy Sarita IG # 0.07 10e3/ul Critically high 0.00-0.03 [facility] Comment on above: Performed By: #### H IV12 #### [facility] [address] [id number] Andriy Sarita IG % 0.7 % Critically high 0.0-0.5 [facility] Comment on above: Performed By: #### H IV12 #### [facility] [address] [id number] Andriy Sarita LYMPH # 3.2 103/ul Normal 1.2-3.8 [facility] Comment on above: Performed By: #### H IV12 #### [facility] [address] [place] [address] Andriy Stein Lymphocytes/100 WBC (Bld) 29.7 % Normal 20.5-60.0 [facility] Comment on above: Performed By: #### H IV12 #### [facility] [address] [place] [address] Andriy Stein MANUAL DIFF REQ NO Normal [facility] Comment on above: Performed By: #### H IV12 #### [facility] [address] [place] [address] Andriy Stein MCH (RBC) [Entitic mass] 28.0 pg Normal 26.7-34.0 [facility] Comment on above: Performed By: #### H IV12 #### [facility] [address] [place] [address] Andriy Stein MCHC (RBC) [Mass/Vol] 31.8 g/dL Normal 29.9-35.2 [facility] Comment on above: Performed By: #### H IV12 #### [facility] [address] [place] [address] Andriylogan Stein MCV (RBC) [Entitic vol] 87.8 fL Normal 81.0-99.0 [facility] Comment on above: Performed By: #### H IV12 #### [facility] [address] [place], [place] [address] Andriylogan Stein MONO # 0.9 103/ul Critically high 0.3-0.8 [facility] Comment on above: Performed By: #### H IV12 #### [facility] [address] [id number] Andriy Stein Monocytes/100 WBC (Bld) 8.3 % Normal 1.7-12.0 [facility] Comment on above: Performed By: #### H IV12 #### [facility] [address] [place], [place] [address] Andriylogan Rodgersen NEUT # 6.3 103/ul Normal 1.4-6.5 [facility] Comment on above: Performed By: #### H IV12 #### [facility] [address] [place], [place] [address] Andriy Stein Neutrophils/100 WBC (Bld) 59.7 % Normal 43.0-75.0 [facility] Comment on above: Performed By: #### H IV12 #### [facility] [address] [place], [place] [address] Andriy Stein Platelet mean volume (Bld) [Entitic vol] 9.7 fL Normal 9.5-13.5 [facility] Comment on above: Performed By: #### H IV12 #### [facility] [address] [place], [place] [address] Andriy Sarita PLT 173 103/ul Normal 150-450 [facility] Comment on above: Performed By: #### H IV12 #### [facility] [address] [place], [place] [address] Andriy Sarita RBC 3.29 106/ul Critically low 4.20-5.40 [facility] Comment on above: Performed By: #### H IV12 #### [facility] [address] [place], [place] [address] Andriy Sarita WBC 10.6 103/ul Normal 4.0-11.0 [facility] Comment on above: Performed By: #### H IV12 #### [facility] [address] [place], [place] [address] Andriy Sarita ASYMPTOMATIC COVID-19 ANTIGE Non 07-30-2021 EUA Statement SEE BELOW Normal [facility] Comment on above: Result Comment: This test [...] sooner. Performed By: #### H BSANS #### [facility] [address] [place] [address] Andriy Stein SARS-CoV-2 (COVID-19) RNA CARLITOS+probe Ql (Unsp spec) Negative Normal NEGATIVE [facility] Comment on above: Result Comment: Nega tive results are presumptive. They do not preclude infection and should not be used as the sole basis for treatment decisions. Additional confirmatory testing by a molecular method should be considered. Performed By: #### H BSANS #### [facility] [address] [place] [address] Andiry Stein CBC AUTO DIFFon 07-30-2021 BASO # 0.0 103/ul Normal 0.0-0.1 [facility] Comment on above: Performed By: #### C BC ####[facility] [address] [address]Dr. Sunil Conner Basophils/100 WBC (Bld) 0.2 % Normal 0.2-2.0 [facility] Comment on above: Performed By: #### C BC ####[facility] [address] [address]Dr. Yilan Conner EO # 0.1 103/ul Normal 0.0-0.7 [facility] Comment on above: Performed By: #### C BC ####[facility] [address] [place] [address]Dr. Yilan Conner Eosinophils/100 WBC (Bld) 1.0 % Normal 0.9-7.0 [facility] Comment on above: Performed By: #### C BC ####[facility] Aj[address]rtiayj[address] [place] [address]Dr. Sunil Conner Erythrocyte distribution width (RBC) [Ratio] 17.0 % Critically high 11.0-15.0 [facility] Comment on above: Performed By: #### C BC ####[facility] [address] [place], [place] [address]Dr. Sunil Conner Hematocrit (Bld) [Volume fraction] 37.5 % Normal 36.0-48.0 [facility] Comment on above: Performed By: #### C BC ####[facility] Estfu[address]qwq[address] [place], [place] [address]Dr. Sunil Conner Hemoglobin (Bld) [Mass/Vol] 12.3 g/dL Normal 12.0-16.0 [facility] Comment on above: Performed By: #### C BC ####[facility] W[address] [place], [place] [address]Dr. Sunil Conner IG # 0.05 10e3/ul Critically high 0.00-0.03 [facility] Comment on above: Performed By: #### C BC ####[facility] [address] [place], [place] [address]Dr. Sunil Conner IG % 0.5 % Normal 0.0-0.5 [facility] Comment on above: Performed By: #### C BC ####[facility] [address]ob[address] [place], [place] [address]Dr. Sunil Conner LYMPH # 2.8 103/ul Normal 1.2-3.8 [facility] Comment on above: Performed By: #### C BC ####[facility] [address] [place], [place] [address]Dr. Sunil Conner Lymphocytes/100 WBC (Bld) 28.4 % Normal 20.5-60.0 [facility] Comment on above: Performed By: #### C BC ####[facility] [address]soxks[address]fr[address] [place], [place] [address]Dr. Sunil Conner MANUAL DIFF REQ NO Normal [facility] Comment on above: Performed By: #### C BC ####[facility] [address] [place] [id number]. Sunil Ubaldo MCH (RBC) [Entitic mass] 28.5 pg Normal 26.7-34.0 [facility] Comment on above: Performed By: #### C BC ####[facility] [address]fr[address] [place] [address]Dr. Sunil Ubaldo MCHC (RBC) [Mass/Vol] 32.8 g/dL Normal 29.9-35.2 [facility] Comment on above: Performed By: #### C BC ####[facility] [address] [place] [address]Dr. Sunil Conner MCV (RBC) [Entitic vol] 86.8 fL Normal 81.0-99.0 [facility] Comment on above: Performed By: #### C BC ####[facility] [address]cs[address] [place], [place] [address]Dr. Sunil Conner MONO # 0.8 103/ul Normal 0.3-0.8 [facility] Comment on above: Performed By: #### C BC ####[facility] [address] [place], [place] [address]Dr. Sunil Conner Monocytes/100 WBC (Bld) 7.9 % Normal 1.7-12.0 [facility] Comment on above: Performed By: #### C BC ####[facility] [address] [place], [place] [address]Dr. Sunil Conner NEUT # 6.0 103/ul Normal 1.4-6.5 [facility] Comment on above: Performed By: #### C BC ####[facility] [address] [place], [place] [address]Dr. Sunil Conner Neutrophils/100 WBC (Bld) 62.0 % Normal 43.0-75.0 [facility] Comment on above: Performed By: #### C BC ####[facility] [address]wqrmxsv[address] [place], [place] [address]Dr. Sunil Conner Platelet mean volume (Bld) [Entitic vol] 10.2 fL Normal 9.5-13.5 [facility] Comment on above: Performed By: #### C BC ####[facility] [address]re[address] [place] [address]Dr. Sunil Conner PLT 207 103/ul Normal 150-450 [facility] Comment on above: Performed By: #### C BC ####[facility] [address]xyyw[address] [place] [address]Dr. Sunil Conner RBC 4.32 106/ul Normal 4.20-5.40 [facility] Comment on above: Performed By: #### C BC ####[facility] Dthevq[address]ekt6[address] [place] [address]Dr. Sunil Conner WBC 9.7 103/ul Normal 4.0-11.0 [facility] Comment on above: Performed By: #### C BC ####[facility] [address]iq[address] [place] [address]Dr. Sunil Conner DRUG SCREEN RAPID (URINE)on 07-30-2021 AMP Negative Normal NEGATIVE [facility] Comment on above: Performed By: #### D RUGRPD ####[facility] [address]axs[address] [place] [address]Dr. Sunil Conner BAR Negative Normal NEGATIVE [facility] Comment on above: Performed By: #### D RUGRPD ####[facility] Xealsoovau[address] [place] [address]Dr. Sunil Conner BUP Negative Normal NEGATIVE [facility] Comment on above: Performed By: #### D RUGRPD ####[facility] [address] [place] [address]Dr. Sunil Conner BZO Negative Normal NEGATIVE [facility] Comment on above: Performed By: #### D RUGRPD ####[facility] [address] [place] [address]Dr. Sunil Conner TAMICA Negative Normal NEGATIVE [facility] Comment on above: Performed By: #### D RUGRPD ####[facility] [address]uk[address]ysx[address] [place] [address]Dr. Sunil Conner CUT-OFFS SEE BELOW Normal [facility] Comment on above: Result Comment: AMP (Amphetamine): 500ng/mL, BAR (Barbituates): 200 ng/mL, BZO (Benzodiazepines): 150 ng/mL, BUP (Buprenorphine): 10 ng/mL, TAMICA (Cocaine): 150 ng/mL, mAMP (Methamphetamine): 500 ng/mL, MTD (Methadone): 200 ng/mL, OPI (Opiates): 100 ng/mL, OXY (Oxycodone): 100 ng/mL, PCP (Phencyclidine): 25 ng/mL, PPX (Propoxyphene): 300 ng/mL, THC (Cannabinoids): 50 ng/mL, TCA (Trycyclic Antidepressants): 300 ng/mL Performed By: #### D RUGRPD ####[facility] [address] [place], [place] [address]Dr. [facility] DRUG CUT HEADER DRUG CLASS TEST SYSTEM CUT-OFF CONCENTRATIONS ARE FOLLOWS: Normal [facility] Comment on above: Performed By: #### D RUGRPD ####[facility] [address] [place], [place] [address]Dr. Sunil Conner mAMP Negative Normal NEGATIVE [facility] Comment on above: Performed By: #### D RUGRPD ####[facility] [address] [place], [place] [address]Dr. Chelsiebriana Conner MTD Negative Normal NEGATIVE [facility] Comment on above: Performed By: #### D RUGRPD ####[facility] [address]hr[address]clq[address] [place], [place] [address]Dr. Chelsiebriana [facility] OPI Negative Normal NEGATIVE [facility] Comment on above: Performed By: #### D RUGRPD ####[facility] [address] [place], [place] [address]Dr. Sunil Conner OXY Negative Normal NEGATIVE [facility] Comment on above: Performed By: #### D RUGRPD ####[facility] [address] [place], [place] [address]Dr. Sunil [facility] PCP Negative Normal NEGATIVE [facility] Comment on above: Performed By: #### D RUGRPD ####[facility] [address] [place], [place] [address]Dr. Chelsiebriana [facility] PPX Negative Normal NEGATIVE [facility] Comment on above: Performed By: #### D RUGRPD ####[facility] [address] [place], [place] [address]Gq. Sunil Conner TCA Negative Normal NEGATIVE [facility] Comment on above: Performed By: #### D RUGRPD ####[facility] [address] [place], [place] [address]To. Sunil Ubaldo THC Negative Normal NEGATIVE [facility] Comment on above: Performed By: #### D RUGRPD ####[facility] [address] [place], [place] [address]Ho. Sunil Conner TYPE AND SCREENon 07-30-2021 TYPE AND SCREEN Negative Normal [facility] Comment on above: Performed By: #### T NS #### [facility] [address] [place], [place] [address] Dr. Sunil Conner US PREG BIOPHY W [...] NADIA DOOLEY Date: 2021-07-13 10:55 Normal [facility] US PREG GROWTHon 07-11-2021 US PREG GROWTH [...] EFW: 6 lbs. 3 oz., 37% FL/AC: 0.838641 FL/BPD: 0.093743 HC/AC: 0.080480 GESTATIONAL AGE: Age by EDC: 36 weeks 4 days FAHEEM by EDC: 08/04/2021 Age by US: 35 weeks 3 days FAHEEM by US: 08/12/2021 IMPRESSION: Normal interval growth Electronically authenticated by: NADIA DOOLEY Date: 2021-07-11 10:28 Normal [facility] COVID Quick Testingon 2021 Result Negative [facility] Other Quick Strepon 07-09-2021 S. pyogenes Org specific cx Ql (Throat) Negative [facility] Zones Other Quick Strep [facility] Other GROUP B STREP CULTUREon 06-25 S. agalactiae Ag Ql (Unsp spec) Culture Observations: NEGATIVE FOR GROUP B STREPTOCOCCUS. Normal [facility] Comment on above: Performed By: #### G BSCX #### [facility] [address] [place] [address] Dr. Sunil Conner PREG GROWTHon 06-20-2021 PREG [...] EFW: 4 lbs. 14 oz., 53% FL/AC: 0.611888 FL/BPD: 0.763272 HC/AC: 1.574780 GESTATIONAL AGE: Age by EDC: 33 weeks 4 days FAHEEM by EDC: 08/04/2021 Age by US: 33 weeks 1 day FAHEEM by US: 08/07/2021 IMPRESSION: Normal interval growth Electronically authenticated by: NADIA DOOLEY Date: 2021-06-20 11:46 Normal [facility] CBC AUTO DIFFon 06-08-2021 BASO # 0.0 103/ul Normal 0.0-0.1 [facility] Comment on above: Performed By: #### H IV12 #### [facility] [address] [place] [id number] Andriy Sarita Basophils/100 WBC (Bld) 0.5 % Normal 0.2-2.0 [facility] Comment on above: Performed By: #### H IV12 #### [facility] [address] [place] [id number] Andriy Sarita EO # 0.1 103/ul Normal 0.0-0.7 [facility] Comment on above: Performed By: #### H IV12 #### [facility] [address] [place] [address] Andriy Sarita Eosinophils/100 WBC (Bld) 1.3 % Normal 0.9-7.0 [facility] Comment on above: Performed By: #### H IV12 #### [facility] [address] [place] [address] Andriy Sarita Erythrocyte distribution width (RBC) [Ratio] 19.8 % Critically high 11.0-15.0 [facility] Comment on above: Performed By: #### H IV12 #### [facility] [address] [place] [address] Andriy Sarita Hematocrit (Bld) [Volume fraction] 34.9 % Critically low 36.0-48.0 [facility] Comment on above: Performed By: #### H IV12 #### [facility] [address] [place] [id number] Andriy Sarita Hemoglobin (Bld) [Mass/Vol] 11.1 g/dL Critically low 12.0-16.0 [facility] Comment on above: Performed By: #### H IV12 #### [facility] [address] [place] [id number] Andriy Sarita IG # 0.04 10e3/ul Critically high 0.00-0.03 [facility] Comment on above: Performed By: #### H IV12 #### [facility] [address] [place], [place] [phone] Andriylogan Stein IG % 0.5 % Normal 0.0-0.5 [facility] Comment on above: Performed By: #### H IV12 #### [facility] [address] [place], [place] [id number] Andriy Sarita LYMPH # 2.1 103/ul Normal 1.2-3.8 [facility] Comment on above: Performed By: #### H IV12 #### [facility] [address] [place], [place] [id number] Andriy Stein Lymphocytes/100 WBC (Bld) 24.8 % Normal 20.5-60.0 [facility] Comment on above: Performed By: #### H IV12 #### [facility] [address] [place] [address] Andriy Stein MANUAL DIFF REQ NO Normal [facility] Comment on above: Performed By: #### H IV12 #### [facility] [address] [place] [address] Andriy Stein MCH (RBC) [Entitic mass] 27.5 pg Normal 26.7-34.0 [facility] Comment on above: Performed By: #### H IV12 #### [facility] [address] [place] [address] Andriy Stein MCHC (RBC) [Mass/Vol] 31.8 g/dL Normal 29.9-35.2 [facility] Comment on above: Performed By: #### H IV12 #### [facility] [address] [place], [place] [phone] Andriy Stein MCV (RBC) [Entitic vol] 86.6 fL Normal 81.0-99.0 [facility] Comment on above: Performed By: #### H IV12 #### [facility] [address] [place] [address] Andriylogan Stein MONO # 0.7 103/ul Normal 0.3-0.8 [facility] Comment on above: Performed By: #### H IV12 #### [facility] [address] [place], [place] [address] Andriy Sarita Monocytes/100 WBC (Bld) 8.7 % Normal 1.7-12.0 [facility] Comment on above: Performed By: #### H IV12 #### [facility] [address] [place], [place] [address] Andriy Sarita NEUT # 5.4 103/ul Normal 1.4-6.5 [facility] Comment on above: Performed By: #### H IV12 #### [facility] [address] [place] [id number] Andriy Sarita Neutrophils/100 WBC (Bld) 64.2 % Normal 43.0-75.0 [facility] Comment on above: Performed By: #### H IV12 #### [facility] [address] [place], [place] [phone] Andriy Sarita Platelet mean volume (Bld) [Entitic vol] 9.9 fL Normal 9.5-13.5 [facility] Comment on above: Performed By: #### H IV12 #### [facility] [address] [place], [place] [address] Andriy Sarita PLT 232 103/ul Normal 150-450 [facility] Comment on above: Performed By: #### H IV12 #### [facility] [address] [place], [place] [phone] Andriy Sarita RBC 4.03 106/ul Critically low 4.20-5.40 [facility] Comment on above: Performed By: #### H IV12 #### [facility] [address] [place], [place] [phone] Andriy Sarita WBC 8.5 103/ul Normal 4.0-11.0 [facility] Comment on above: Performed By: #### H IV12 #### [facility] [address] [place], [place] [phone] Andriy Sarita GTT 3 HR PREGon 04-30-2021 Glucose [Mass/Vol] 85 mg/dL Normal 74-106 [facility] Comment on above: Performed By: #### G TT3P ####[facility] [address] [place], [place] [address]Ho. Chelsiebriana Conner Glucose [Mass/Vol] 188 mg/dL Normal [facility] Comment on above: Performed By: #### G TT3P ####[facility] [address] [place] [address]Dr. Sunil Conner Glucose [Mass/Vol] 133 mg/dL Normal [facility] Comment on above: Performed By: #### G TT3P ####[facility] [address] [place] [address]Dr. Sunil Conner Glucose [Mass/Vol] 122 mg/dL Normal [facility] Comment on above: Performed By: #### G TT3P ####[facility] [address] [place] [address]Dr. Sunil Conner CBC AUTO DIFFon 04-28-2021 BASO # 0.0 103/ul Normal 0.0-0.1 [facility] Comment on above: Performed By: #### C BC #### [facility] [address] [place] [address] [address] Sunil Conner Basophils/100 WBC (Bld) 0.3 % Normal 0.2-2.0 [facility] Comment on above: Performed By: #### C BC #### [facility] [address] [place] [address] [address] Sunil Conner EO # 0.1 103/ul Normal 0.0-0.7 [facility] Comment on above: Performed By: #### C BC #### [facility] [address] [place] [address] [address] Sunil Conner Eosinophils/100 WBC (Bld) 1.2 % Normal 0.9-7.0 [facility] Comment on above: Performed By: #### C BC #### [facility] [address] [place] [address] [address] Sunil Conner Erythrocyte distribution width (RBC) [Ratio] 14.6 % Normal 11.0-15.0 [facility] Comment on above: Performed By: #### C BC #### [facility] [address] [place] [address] [address] Sunil Conner Hematocrit (Bld) [Volume fraction] 31.6 % Critically low 36.0-48.0 [facility] Comment on above: Performed By: #### C BC #### [facility] [address] [place] [address] Dr. Sunil Conner Hemoglobin (Bld) [Mass/Vol] 9.9 g/dL Critically low 12.0-16.0 [facility] Comment on above: Performed By: #### C BC #### [facility] [address] [place] [address] Dr. Sunil Conner IG # 0.05 10e3/ul Critically high 0.00-0.03 [facility] Comment on above: Performed By: #### C BC #### [facility] [address] [place] [address] Dr. Sunil Conner IG % 0.5 % Normal 0.0-0.5 [facility] Comment on above: Performed By: #### C BC #### [facility] [address] [place] [address] Dr. Sunil Conner LYMPH # 2.4 103/ul Normal 1.2-3.8 [facility] Comment on above: Performed By: #### C BC #### [facility] [address] [place] [address] Dr. Sunil Conner Lymphocytes/100 WBC (Bld) 25.6 % Normal 20.5-60.0 [facility] Comment on above: Performed By: #### C BC #### [facility] [address] [place] [address] Dr. Sunil Conner MANUAL DIFF REQ NO Normal [facility] Comment on above: Performed By: #### C BC #### [facility] [address] [place] [address] Dr. Sunil Conner MCH (RBC) [Entitic mass] 25.8 pg Critically low 26.7-34.0 [facility] Comment on above: Performed By: #### C BC #### [facility] [address] [place] [address] Dr. Sunil Conner MCHC (RBC) [Mass/Vol] 31.3 g/dL Normal 29.9-35.2 [facility] Comment on above: Performed By: #### C BC #### [facility] [address] [place] [address] Dr. Sunil Conner MCV (RBC) [Entitic vol] 82.3 fL Normal 81.0-99.0 [facility] Comment on above: Performed By: #### C BC #### [facility] [address] [place] [address] Dr. Sunil Conner MONO # 0.5 103/ul Normal 0.3-0.8 [facility] Comment on above: Performed By: #### C BC #### [facility] [address] [place] [address] Dr. Sunil Conner Monocytes/100 WBC (Bld) 5.3 % Normal 1.7-12.0 [facility] Comment on above: Performed By: #### C BC #### [facility] [address] [place] [address] Dr. Sunil Conner NEUT # 6.4 103/ul Normal 1.4-6.5 [facility] Comment on above: Performed By: #### C BC #### [facility] [address] [place] [address] Dr. Sunil Conner Neutrophils/100 WBC (Bld) 67.1 % Normal 43.0-75.0 [facility] Comment on above: Performed By: #### C BC #### [facility] [address] [place] [address] Dr. Sunil Conner Platelet mean volume (Bld) [Entitic vol] 10.3 fL Normal 9.5-13.5 [facility] Comment on above: Performed By: #### C BC #### [facility] [address] [place] [address] Dr. Sunil Conner PLT 255 103/ul Normal 150-450 [facility] Comment on above: Performed By: #### C BC #### [facility] [address] [place] [address] Dr. Sunil Conner RBC 3.84 106/ul Critically low 4.20-5.40 [facility] Comment on above: Performed By: #### C BC #### [facility] [address] [place] [address] Dr. Sunil Conner WBC 9.5 103/ul Normal 4.0-11.0 [facility] Comment on above: Performed By: #### C BC #### [facility] [address] [place] [address] Dr. Sunil Conner GLUCOSE - 1HRon 04-28-2021 Glucose [Mass/Vol] 171 mg/dL Critically high 74-106 [facility] Comment on above: Performed By: #### H IV12 #### [facility] [address] [place] [address] Andriylogan Rodgersen VAGINITIS/VAGINOSIS DNA PROB Douglas 04-21-2021 Kena species Positive Abnormal Negative [facility] Comment on above: Performed By: #### V AGINT #### [facility] [address] [place] [address] Dr. Sunil Conner Gardnerella vaginalis Negative Normal Negative [facility] Comment on above: Performed By: #### V AGINT #### [facility] [address] [place] [address] Dr. Sunil Conner Trichomonas vaginalis Negative Normal Negative [facility] Comment on above: Performed By: #### V AGINT #### [facility] [address] [place] [address] Dr. Sunil Conner US PREG ANATOMY SINGLEon [...] weeks 3 days EFW:12 ounces, 47%; FL/AC: 0.107516 FL/BPD: 0.466413 HC/AC: 1.179956 GESTATIONAL AGE: Age by EDC: 20 weeks [...] WB Performed By: #### H IV12 #### [facility] [address] [place] [address] Andriy Stein Age Gdln ACOG Testing 21-29 Normal [facility] Comment on above: Performed By: #### H IV12 #### [facility] [address] [place] [address] Andriy Stein Chlamydia, Nuc. Acid Amp Negative Normal Negative [facility] Comment on above: Result Comment: Perf ormed at: =G Performed By: #### H IV12 #### [facility] [address] [place] [id number] Andriy Stein DIAGNOSIS: Comment Abnormal [facility] Comment on above: Result Comment: EPIT HELIAL CELL ABNORMALITY. LOW-GRADE SQUAMOUS INTRAEPITHELIAL LESION (LSIL); MILD DYSPLASIA. Performed at: WB Performed By: #### H IV12 #### [facility] [address] [place] [address] Andriy Stein Electronically signed by: Comment Normal [facility] Comment on above: Result Comment: Mayela العلي MD, Pathologist Performed at: WB Performed By: #### H IV12 #### [facility] [address] [place] [address] Andriy Stein Gonococcus, Nuc. Acid Amp Negative Normal Negative [facility] Comment on above: Result Comment: Perf ormed at: =G Performed By: #### H IV12 #### [facility] [address] [place] [address] Andriy Stein Methodology: Comment Normal [facility] Comment on above: Result Comment: This liquid based ThinPrep(R) pap test was screened with the use of an image guided system. Performed at: WB Performed By: #### H IV12 #### [facility] [address] [place] [address] Andriy Stein Note: Comment Normal [facility] [...] WB Performed By: #### H IV12 #### [facility] [address] [place] [address] Andriy Stein Pathologist Provided ICD10 Comment Normal [facility] Comment on above: Result Comment: [id number]. [id number] Performed at: WB Performed By: #### H IV12 #### [facility] [address] [place] [address] Andriy Stein Performed by: Comment Normal [facility] Comment on above: Result Comment: Funmi Partida, Freight Booker (ASCP) Performed at: WB Performed By: #### H IV12 #### [facility] [address] [place] [address] Andriy Stein Recommendation: Comment Abnormal [facility] Comment on above: Result Comment: Sugg est follow up as clinically appropriate. Performed at: WB Performed By: #### H IV12 #### [facility] [address] [place] [address] Andriy Sarita Reflex Criteria: Comment Normal [facility] Comment on above: Result Comment: The HPV DNA reflex criteria were not met with this specimen result therefore, no HPV testing was performed. . Performed at: WB Performed By: #### H IV12 #### [facility] [address] [place] [address] Andriy Sarita Specimen adequacy: Comment Normal [facility] Comment on above: Result Comment: Sati sfactory for evaluation. Endocervical and/or squamous metaplastic cells (endocervical component) are present. Performed at: WB Performed By: #### H IV12 #### [facility] [address] [place] [address] Andriy Sarita AFP MATERNAL FOR SPINA BIFID Aon 02-19-2021 AFP MoM 1.15 [facility] Comment on above: Performed By: #### H IV12 #### [facility] Laboratory [address] [address] Andriy Sarita AFP Value 35.0 ng/mL Normal [facility] Comment on above: Performed By: #### H IV12 #### [facility] [address] [address] Andriy Sarita AFP, Serum for Spina Bifida Report Normal [facility] Comment on above: Performed By: #### H IV12 #### [facility] [address] [id number] Andriy Sarita Comment Comment Normal [facility] Comment on above: Result Comment: Jassi Perez, Ph.D., [facility] Director . References: Available Upon Request. . Multiples Of Median Cutoffs For AFP Elevations Beebe 2.5 Black 2.8 IDD 2.0 Twins 4.5 Abbreviation Definitions IDD - Insulin Dep Diabetes OSBR - Open Spina Bifida Risk . For further inquiries contact [employer] [facility] at [phone]. Performed By: #### H IV12 #### [facility] [address] [id number] Andriylogan Rodgersen Gest Age Collection Date 16.0 weeks [facility] Comment on above: Performed By: #### H IV12 #### [facility] [address] [place] [address] Andriy Stein Gestat, Age Based on Ultrasound Normal [facility] Comment on above: Result Comment: 16.0 on 02/17/2021 Recalculations are not recommended when gestational dating by LMP and ultrasound are within 10 days. Performed By: #### H IV12 #### [facility] [address] [place] [address] Andriy Rodgersen Insulin Dep Diabetes No Normal [facility] Comment on above: Performed By: #### H IV12 #### [facility] [address] [place] [address] Andriy Rodgersen Interpretation Comment Normal [facility] Comment on above: Result Comment: [...] Customer Services to discuss available options. The [employer] recommends amniocentesis be offered to women age 35 and older. Performed By: #### H IV12 #### [facility] [address] [place] [address] Andriy Rodgersen [age] Normal [facility] Comment on above: Performed By: #### H IV12 #### [facility] [address] [place] [address] Andriy Stein Multiple Gestation No Normal [facility] Comment on above: Performed By: #### H IV12 #### [facility] [address] [place] [address] Andriy Stein OSBR Risk 1 [place] [address] Normal [facility] Comment on above: Performed By: #### H IV12 #### [facility] [address] [place] [address] Andriy Stein PDF . Normal [facility] Comment on above: Performed By: #### H IV12 #### [facility] [address] [address] Andriy Stein Race Normal [facility] Comment on above: Performed By: #### H IV12 #### [facility] [address] [address] Andriy Stein Test Results: Negative Normal [facility] Comment on above: Performed By: #### H IV12 #### [facility] [address] [address] Andriy Stein HEMOGLOBINOPATHY FRACTIONATI ON CASCADEon 02-07-2021 HGB A 97.3 % Normal 96.4-98.8 [facility] Comment on above: Performed By: #### H GBCAS ####[facility] [address] [address]Gerken Sarita HGB A2 2.7 % Normal 1.8-3.2 [facility] Comment on above: Performed By: #### H GBCAS ####[facility] [address] [address]Gerken Sarita HGB F 0.0 % Normal 0.0-2.0 [facility] Comment on above: Performed By: #### H GBCAS ####[facility] [address] [address]Gerken Sarita HGB S 0.0 % Normal 0.0 [facility] Comment on above: Performed By: #### H GBCAS ####[facility] [address] [address]Gerken Sarita Interpretation: Comment Normal [facility] Comment on above: Result Comment: Norm al hemoglobin present; no hemoglobin variant or thalassemia observed. Performed By: #### H GBCAS ####[facility] [address] Sarita VARICELLA IGG ABon 1 Varicella Zoster IgG 406 index Normal Immune >165 [facility] Comment on above: Result Comment: Nega tive <135 Equivocal 135 - 165 Positive >165 A positive result generally indicates exposure to the pathogen or administration of specific immunoglobulins, but it is not indication of active infection or stage of disease. Performed By: #### V RETA ####[facility] [address] [address]Andriy Stein HEP B SURFACE ANTIGEN SCREEN on 02-06-2021 HBsAg Screen Negative Normal Negative [facility] Comment on above: Performed By: #### H BSANS #### [facility] [address] [place] [address] Andriy Stein HEPATITIS C ANTIBODYon 02-06 Hep C Virus Ab <0.1 Normal 0.0-0.9 [facility] Comment on above: Result Comment: Nega tive: < 0.8 Indeterminate: 0.8 - 0.9 Positive: > 0.9 . The CDC recommends that a positive HCV antibody result be followed up with a HCV Nucleic Acid Amplification test (750186). Performed By: #### H CV ####[facility] [address] [place], [place] [address]Andriy Stein HIV 1 AND 2 WITH REFLEXon HIV Screen 4th Generation wRfx Non-Reactive Normal Non Reactive [facility] Comment on above: Performed By: #### H IV12 #### [facility] [address] [place] [address] Andriy Stein RPR QUANTon 02-06-2021 Rapid Plasma Reagin, Quant Non-Reactive Normal NonRea<1:1 [facility] Comment on above: Performed By: #### H IV12 #### [facility] [address] [place] [address] Andriy Stein RUBELLA AB IGGon 02-06-2021 Rubella Antibodies, IgG 1.72 index Normal Immune >0.99 [facility] Comment on above: Result Comment: Non- immune <0.90 Equivocal 0.90 - 0.99 Immune >0.99 Performed By: #### H IV12 #### [facility] [address] [place] [address] Andriy Stein CBC AUTO DIFFon 02-05-2021 BASO # 0.0 103/ul Normal 0.0-0.1 [facility] Comment on above: Performed By: #### H BSANS #### [facility] [address] [id number] Andriy Sarita Basophils/100 WBC (Bld) 0.3 % Normal 0.2-2.0 [facility] Comment on above: Performed By: #### H BSANS #### [facility] [address] [place] [address] Andriy Sarita EO # 0.2 103/ul Normal 0.0-0.7 [facility] Comment on above: Performed By: #### H BSANS #### [facility] [address] [place] [address] Andriy Sarita Eosinophils/100 WBC (Bld) 1.7 % Normal 0.9-7.0 [facility] Comment on above: Performed By: #### H BSANS #### [facility] [address] [place] [address] Andriy Sarita Erythrocyte distribution width (RBC) [Ratio] 14.0 % Normal 11.0-15.0 [facility] Comment on above: Performed By: #### H BSANS #### [facility] [address] [place] [address] Andriy Sarita Hematocrit (Bld) [Volume fraction] 34.3 % Critically low 36.0-48.0 [facility] Comment on above: Performed By: #### H BSANS #### [facility] [address] [place], [place] [id number] Andriy Sarita Hemoglobin (Bld) [Mass/Vol] 11.0 g/dL Critically low 12.0-16.0 [facility] Comment on above: Performed By: #### H BSANS #### [facility] [address] [place] [address] Andriy Sarita IG # 0.02 10e3/ul Normal 0.00-0.03 [facility] Comment on above: Performed By: #### H BSANS #### [facility] [address] [place] [address] Andriy Sarita IG % 0.2 % Normal 0.0-0.5 [facility] Comment on above: Performed By: #### H BSANS #### [facility] [address] [id number] Andriy Sarita LYMPH # 3.4 103/ul Normal 1.2-3.8 [facility] Comment on above: Performed By: #### H BSANS #### [facility] [address] [id number] Andriy Sarita Lymphocytes/100 WBC (Bld) 38.7 % Normal 20.5-60.0 [facility] Comment on above: Performed By: #### H DANIELNS #### [facility] [address] [id number] Andriy Sarita MANUAL DIFF REQ NO Normal [facility] Comment on above: Performed By: #### H ANGELA #### [facility] [address] [place] [address] Andriy Sarita MCH (RBC) [Entitic mass] 27.2 pg Normal 26.7-34.0 [facility] Comment on above: Performed By: #### H ANGELA #### [facility] [address] [place] [address] Andriy Sarita MCHC (RBC) [Mass/Vol] 32.1 g/dL Normal 29.9-35.2 [facility] Comment on above: Performed By: #### H ANGELA #### [facility] [address] [place], [place] [id number] Andriy Sarita MCV (RBC) [Entitic vol] 84.9 fL Normal 81.0-99.0 [facility] Comment on above: Performed By: #### H ANGELA #### [facility] [address] [place] [address] Andriy Sarita MONO # 0.7 103/ul Normal 0.3-0.8 [facility] Comment on above: Performed By: #### H BSADOM #### [facility] [address] [place], [place] [id number] Andriy Sarita Monocytes/100 WBC (Bld) 8.3 % Normal 1.7-12.0 [facility] Comment on above: Performed By: #### H ANGELA #### [facility] [address] [address] Andriy Stein NEUT # 4.4 103/ul Normal 1.4-6.5 [facility] Comment on above: Performed By: #### H AGNELA #### [facility] [address] [id number] Andriy Stein Neutrophils/100 WBC (Bld) 50.8 % Normal 43.0-75.0 [facility] Comment on above: Performed By: #### H ANGELA #### [facility] [address] [id number] Andriy Stein Platelet mean volume (Bld) [Entitic vol] 9.8 fL Normal 9.5-13.5 [facility] Comment on above: Performed By: #### H ANGELA #### [facility] [address] [id number] Andriy Stein PLT 248 103/ul Normal 150-450 [facility] Comment on above: Performed By: #### H ANGELA #### [facility] [address] [address] Andriy Stein RBC 4.04 106/ul Critically low 4.20-5.40 [facility] Comment on above: Performed By: #### H ANGELA #### [facility] [address] [id number] Andriy Stein WBC 8.7 103/ul Normal 4.0-11.0 [facility] Comment on above: Performed By: #### H ANGELA #### [facility] [address] [id number] Andriy Stein GLYCOHEMOGLOBIN A1Con 2020 ADA RECOMMENDATION ADA THERAPEUTIC TARGET 6.0 - 7.0 ACTION SUGGESTED > 7.0 Normal [facility] Comment on above: Performed By: #### A 1C ####[facility] [address] [id number] Stein Glucose [Mass/Vol] 111 mg/dL Normal [facility] Comment on above: Performed By: #### A 1C ####[facility] [address] [id number] Sarita HbA1c (Bld) [Mass fraction] 5.5 % Normal <=6.0 [facility] Comment on above: Performed By: #### A 1C ####[facility] [address] [id number] Sarita GTT 3 HR PREGon 02-05-2021 Glucose [Mass/Vol] 79 mg/dL Normal 74-106 [facility] Comment on above: Performed By: #### H BSANS #### [facility] [address] [address] Andriy Sarita Glucose [Mass/Vol] 117 mg/dL Normal [facility] Comment on above: Performed By: #### H BSANS #### [facility] [address] [place] [address] Andriy Sarita Glucose [Mass/Vol] 93 mg/dL Normal [facility] Comment on above: Performed By: #### H BSANS #### [facility] [address] [place] [address] Andriy Sarita Glucose [Mass/Vol] 46 mg/dL Critically low [facility] Comment on above: Performed By: #### H BSANS #### [facility] [address] [place] [address] Andriy Sarita TYPE AND SCREENon 02-05-2021 TYPE AND SCREEN Antibody Screen NEGATIVE Blood Bank Notes completed by [email or web address] ABO Rh Typing A Rh Positive Blood Bank Notes completed by yudelka [facility] Comment on above: Performed By: #### T NS #### [facility] [address] [id number] Andriy Sarita CULTURE URINEon 01-28-2021 CULTURE URINE Culture Observations: MODERATE GROWTH OF MIXED GENITAL HUBER. NO POTENTIAL PATHOGENS SEEN. Normal [facility] Comment on above: Performed By: #### U RCX ####[facility] [address] [id number] Sarita UA RANDOM W/MICROSCOPICon BACTERIA SMALL Abnormal NONE SEEN [facility] Comment on above: Performed By: #### H BSANS #### [facility] [address] [place], [place] [phone] Andriy Sarita Bilirubin Ql (U) Negative Normal NEGATIVE [facility] Comment on above: Performed By: #### H BSANS #### [facility] [address] [place] [address] Andriy Sarita CAST NONE SEEN Normal NONE SEEN [facility] Comment on above: Performed By: #### H BSANS #### [facility] [address] [place] [address] Andriy Sarita Clarity (U) CLEAR Normal CLEAR [facility] Comment on above: Performed By: #### H BSANS #### [facility] [address] [place] [address] Andriy Sarita Color (U) YELLOW Normal YELLOW [facility] Comment on above: Performed By: #### H BSANS #### [facility] [address] [place] [address] Andriy Sarita Crystals LM Nom (Urine sed) NONE SEEN Normal NONE SEEN [facility] Comment on above: Performed By: #### H BSANS #### [facility] [address] [place] [address] Andriy Sarita Epithelial cells LM Ql (Urine sed) FEW Abnormal NONE SEEN /RARE [facility] Comment on above: Performed By: #### H BSANS #### [facility] [address] [place] [address] Andriy Sarita Glucose Ql (U) Negative Normal NEGATIVE [facility] Comment on above: Performed By: #### H BSANS #### [facility] [address] [place] [address] Andriy Sarita Hemoglobin Ql (U) Negative Normal NEGATIVE [facility] Comment on above: Performed By: #### H BSANS #### [facility] [address] [place] [address] Andriy Sarita Ketones Ql (U) TRACE Abnormal NEGATIVE [facility] Comment on above: Performed By: #### H BSANS #### [facility] [address] [place] [address] Andriy Sarita LEUKOCYTES Negative Normal NEGATIVE [facility] Comment on above: Performed By: #### H BSANS #### [facility] [address] [address] Andriy Sarita MUCOUS SMALL Abnormal NONE SEEN [facility] Comment on above: Performed By: #### H BSANS #### [facility] [address] [place], [place] [id number] Andriy Sarita Nitrite Ql (U) Negative Normal NEGATIVE [facility] Comment on above: Performed By: #### H BSANS #### [facility] [address] [place] [address] Andriy Sarita pH (U) 7.0 [pH] Normal 5-9 [facility] Comment on above: Performed By: #### H BSANS #### [facility] [address] [place] [address] Andriy Sarita RBC 0-2 Normal 0-2 [facility] Comment on above: Performed By: #### H BSANS #### [facility] [address] [place] [address] Andriy Sarita SPEC GRAVITY 1.020 Normal 1.005-<=1.02 5 [facility] Comment on above: Performed By: #### H BSANS #### [facility] [address] [place] [address] Andriy Sarita UA PROTEIN Negative Normal NEGATIVE/ TRACE [facility] Comment on above: Performed By: #### H BSANS #### [facility] [address] [place] [address] Andriy Sarita Urobilinogen Qn (U) 0.2 {Juanito'U}/dL Normal 0.2 - 1. 0 [facility] Comment on above: Performed By: #### H BSANS #### [facility] [address] [place] [address] Andriy Sarita WBC NONE SEEN Normal NONE SEEN [facility] Comment on above: Performed By: #### H BSANS #### [facility] [address] [place] [address] Andriy Sarita BUNon 01-26-2021 Urea nitrogen [Mass/Vol] 5.0 mg/dL Critically low 7.0-17.0 [facility] Comment on above: Performed By: #### T SH, LDH, BUN, URIC, ALT, AST ####[facility] [address] [place], [place] [address]Kxnyen Sarita CBC AUTO DIFFon 01-26-2021 BASO # 0.0 103/ul Normal 0.0-0.1 [facility] Comment on above: Performed By: #### C BC #### [facility] [address] [id number] Andriy Stein Basophils/100 WBC (Bld) 0.4 % Normal 0.2-2.0 [facility] Comment on above: Performed By: #### C BC #### [facility] [address] [id number] Andriy Sarita EO # 0.1 103/ul Normal 0.0-0.7 [facility] Comment on above: Performed By: #### C BC #### [facility] [address] [address] Andriy Stein Eosinophils/100 WBC (Bld) 1.1 % Normal 0.9-7.0 [facility] Comment on above: Performed By: #### C BC #### [facility] [address] [id number] Andriy Stein Erythrocyte distribution width (RBC) [Ratio] 14.6 % Normal 11.0-15.0 [facility] Comment on above: Performed By: #### C BC #### [facility] [address] [id number] Andriy Stein Hematocrit (Bld) [Volume fraction] 34.7 % Critically low 36.0-48.0 [facility] Comment on above: Performed By: #### C BC #### [facility] [address] [id number] Andriy Sarita Hemoglobin (Bld) [Mass/Vol] 11.1 g/dL Critically low 12.0-16.0 [facility] Comment on above: Performed By: #### C BC #### [facility] [address] [id number] Andriy Sarita IG # 0.04 10e3/ul Critically high 0.00-0.03 [facility] Comment on above: Performed By: #### C BC #### [facility] [address] [place], [place] [id number] Andriylogan Stein IG % 0.5 % Normal 0.0-0.5 [facility] Comment on above: Performed By: #### C BC #### [facility] [address] [place], [place] [id number] Andriy Sarita LYMPH # 2.1 103/ul Normal 1.2-3.8 [facility] Comment on above: Performed By: #### C BC #### [facility] [address] [place], [place] [id number] Andriy Stein Lymphocytes/100 WBC (Bld) 25.5 % Normal 20.5-60.0 [facility] Comment on above: Performed By: #### C BC #### [facility] [address] [place] [address] Andriy Sarita MANUAL DIFF REQ NO Normal [facility] Comment on above: Performed By: #### C BC #### [facility] [address] [place] [address] Andriylogan Stein MCH (RBC) [Entitic mass] 27.2 pg Normal 26.7-34.0 [facility] Comment on above: Performed By: #### C BC #### [facility] [address] [place] [address] Andriy Stein MCHC (RBC) [Mass/Vol] 32.0 g/dL Normal 29.9-35.2 [facility] Comment on above: Performed By: #### C BC #### [facility] [address] [place] [address] Andriylogan Stein MCV (RBC) [Entitic vol] 85.0 fL Normal 81.0-99.0 [facility] Comment on above: Performed By: #### C BC #### [facility] [address] [place] [address] Andriylogan Rodgersen MONO # 0.6 103/ul Normal 0.3-0.8 [facility] Comment on above: Performed By: #### C BC #### [facility] [address] [place], [place] [address] Andriy Sarita Monocytes/100 WBC (Bld) 7.1 % Normal 1.7-12.0 [facility] Comment on above: Performed By: #### C BC #### [facility] [address] [place], [place] [address] Andriy Sarita NEUT # 5.3 103/ul Normal 1.4-6.5 [facility] Comment on above: Performed By: #### C BC #### [facility] [address] [place], [place] [id number] Andriy Sarita Neutrophils/100 WBC (Bld) 65.4 % Normal 43.0-75.0 [facility] Comment on above: Performed By: #### C BC #### [facility] [address] [place], [place] [id number] Andriy Sariat Platelet mean volume (Bld) [Entitic vol] 9.5 fL Normal 9.5-13.5 [facility] Comment on above: Performed By: #### C BC #### [facility] [address] [place], [place] [address] Andriy Sarita PLT 258 103/ul Normal 150-450 [facility] Comment on above: Performed By: #### C BC #### [facility] [address] [place], [place] [address] Andriy Sarita RBC 4.08 106/ul Critically low 4.20-5.40 [facility] Comment on above: Performed By: #### C BC #### [facility] [address] [place], [place] [address] Andriy Sarita WBC 8.1 103/ul Normal 4.0-11.0 [facility] Comment on above: Performed By: #### C BC #### [facility] [address] [place], [place] [id number] Andriy Sarita CREATININE CLEARon 1 CREA CLEARANCE 69.46 ml/min Critically low 75.00-115.00 [facility] Comment on above: Performed By: #### H IV12 #### [facility] [address] [place], [place] [address] Andriy Stein CREA, 24 HR UR 579.12 mg/24 hr Critically low 800.00-1 ,800 .00 [facility] Comment on above: Performed By: #### H IV12 #### [facility] [address] [place], [place] [address] Andriy Sarita Creatinine [Mass/Vol] 0.53 mg/dL Normal 0.52-1.04 [facility] Comment on above: Performed By: #### H IV12 #### [facility] [address] [place], [place] [address] Andriylogan Rodgersen URINE CREAT 30.48 mg/dL Normal 20.00-300.00 [facility] Comment on above: Performed By: #### H IV12 #### [facility] [address] [place], [place] [address] Andriy Stein GLUCOSE - 1HRon 01-26-2021 Glucose [Mass/Vol] 150 mg/dL Critically high 74-106 [facility] Comment on above: Performed By: #### G LU1HR ####[facility] [address] [place], [place] [address]Hbnxfi Sarita LDHon 01-26-2021 LDH 125 U/L Normal 122-222 [facility] Comment on above: Performed By: #### T SH, LDH, BUN, URIC, ALT, AST ####[facility] [address] [place], [place] [address]Okxotu Sarita PROTEIN 24HR URINEon 021 T PROT, 24 HR UR 32.3 mg/24 hr Critically low 42.0-225.0 [facility] Comment on above: Performed By: #### P ROT24U ####[facility] [address] [place], [place] [address]Wzsbcj Sarita UR PROT 1.7 mg/dL Normal <=12.0 [facility] Comment on above: Performed By: #### P ROT24U ####[facility] [address] [place], [place] [address]Tuonrc Sarita UR TOT VOL 1900 ml/24 HR Normal [facility] Comment on above: Performed By: #### P ROT24U ####[facility] [address] [address]Andriy Stein Performed By: #### H IV12 #### [facility] [address] [place], [place] [address] Andriy Stein SGOTon 01-26-2021 AST [Catalytic activity/Vol] 17 U/L Normal 14-36 [facility] Comment on above: Performed By: #### T SH, LDH, BUN, URIC, ALT, AST ####[facility] [id number] [place] [address]Andriy Stein SGPTon 01-26-2021 ALT [Catalytic activity/Vol] 16 U/L Normal 9-52 [facility] Comment on above: Performed By: #### T SH, LDH, BUN, URIC, ALT, AST ####[facility] [id number] [place] [address]Andriy Stein TSHon 01-26-2021 TSH 0.220 uIU/mL Critically low 0.470-4.680 [facility] Comment on above: Performed By: #### T SH, LDH, BUN, URIC, ALT, AST ####[facility] [id number] [place] TSH RANGE SEE BELOW Normal [facility] Comment on above: Result Comment: <0.3 4 UIU/ml HYPERTHYROID 0.34-5.60 UIU/ml EUTHYROID >5.60 UIU/ml HYPOTHYROID Performed By: #### T SH, LDH, BUN, URIC, ALT, AST ####[facility] [id number] [place] URIC ACID SERUMon 01-26-2021 Urate [Mass/Vol] 3.6 mg/dL Normal 2.5-6.2 [facility] Comment on above: Performed By: #### T SH, LDH, BUN, URIC, ALT, AST ####[facility] [id number] [place] US PREG TVon 01-24-2021 US PREG TV [...] ANGELO BLANKENSHIP Date: 2021-01-24 10:12 Normal [facility] ABO AND RH TYPEon 01-19-2021 ABO and Rh group Nom (Bld) ABO Rh Typing A Rh Positive Normal [facility] Comment on above: Performed By: #### A SRIKANTH ####[facility] [id number] [place], [place] [address]KmqsvzAndriy Stein PREG QUANT HCGon 01-19-2021 HCG QUANT 38033 mIU/mL Normal [facility] Comment on above: Result Comment: Prev iously reported as: 3 On 01/19/2021 11:21 By CV2 Performed By: #### H IV12 #### [facility] [address], [place] [address] Andriy Stein HCG RANGE SEE BELOW Normal [facility] Comment on above: Result Comment: 5-50 0-1 WEEK 40-300 1-2 WEEKS 100-1,000 2-3 WEEKS 500-6,000 3-4 WEEKS 5,000-200,000 1-2 MONTHS 10,000-100,000 2-3 MONTHS 3,000-50,000 2ND TRIMESTER 1,000-50,000 3RD TRIMESTER Performed By: #### H IV12 #### [facility] [address], [place] [address] Andriy Stein Vital Signs Date Time Vital Sign Value Performing Clinician Facility 02-02-2025 15:03-0400 Body mass index (BMI) [Ratio] 33 kg/m2 Scooby Alvarado DO Work Phone: [facility] 02-02-2025 15:03-0400 Body weight 87.2 kg Scooby Jenny DO Work Phone: [facility] 02-02-2025 15:03-0400 Diastolic blood pressure 78 mm[Hg] Scooby Jenny DO Work Phone: [facility] 02-02-2025 15:03-0400 Systolic blood pressure 136 mm[Hg] Scooby Jenny DO Work Phone: [facility] 01-01-2025 13:37-0400 Body mass index (BMI) [Ratio] 32.79 kg/m2 Deborah Mansfield PA Work Phone: [facility] 01-01-2025 13:37-0400 Body weight 86.64 kg Deborah Mansfield PA Work Phone: [facility] 01-01-2025 13:37-0400 Diastolic blood pressure 72 mm[Hg] Deborah Aquiles PA Work Phone: [facility] 01-01-2025 13:37-0400 Systolic blood pressure 124 mm[Hg] Deborah Aquiles PA Work Phone: [facility] 12-04-2024 10:26-0400 Body height 162.6 cm Scooby Jenny DO Work Phone: [facility] 12-04-2024 10:25-0400 Body mass index (BMI) [Ratio] 32.27 kg/m2 Scooby Jenny DO Work Phone: [facility] 12-04-2024 10:25-0400 Body weight 85.28 kg Scooby Jenny DO Work Phone: [facility] 12-04-2024 10:25-0400 Diastolic blood pressure 72 mm[Hg] Scooby Jenny DO Work Phone: [facility] 12-04-2024 10:25-0400 Systolic blood pressure 118 mm[Hg] Scooby Jenny DO Work Phone: [facility] 11-24-2024 15:59-0400 Body mass index (BMI) [Ratio] 34.57 kg/m2 Oma Davis RN Work Phone: [facility] 11-24-2024 15:59-0400 Body weight 85.73 kg Oma Davis RN Work Phone: [facility] 11-13-2024 10:57-0400 Body weight 87.09 kg Scooby Jenny DO Work Phone: [facility] 11-13-2024 10:57-0400 Diastolic blood pressure 70 mm[Hg] Scooby Jenny DO Work Phone: [facility] 11-13-2024 10:57-0400 Systolic blood pressure 128 mm[Hg] Scooby Jenny DO Work Phone: [facility] 10-16-2024 14:37-0400 Body weight 85.84 kg Noms Nurse [facility] 10-16-2024 14:37-0400 Diastolic blood pressure 82 mm[Hg] Nom Nurse [facility] 10-16-2024 14:37-0400 Systolic blood pressure 124 mm[Hg] Noms Nurse [facility] 07-09-2021 13:35-0500 Body temperature 96.4 [degF] Renita SurIDxhyun Other [facility] Other 07-09-2021 13:35-0500 SaO2% (BldA) [Mass fraction] 98 % Renita Ginty Other [facility] Other 02-19-2021 04:06-0400 Body weight 83.0088 kg RENAY OTOOLE [facility] Comment on above: Performed By: #### HIV12 #### [facility] [address] [place] [address] Andriy Stein Encounters Encounter Date Encounter Type Care Provider Facility Start: 02-02-2025 End: 02-02-2025 Office outpatient visit 15 minutes Scooby Jenny DO Work Phone: [facility] VISHNU Comment on above: Second trimester pre gnancy ([facility]); 26 weeks gestation of ([facility]); Diabetes mellitus screening Start: 02-02-2025 End: 02-02-2025 ambulatory SCOOBY JENNY Not Available Start: 02-02-2025 End: 02-02-2025 Bamboo flowsheet Scooby Jenny DO Work Phone: [facility] Start: 02-02-2025 End: 02-02-2025 Bamboo flowsheet Scooby Jenny DO Work Phone: [facility] Start: 01-26-2025 End: 01-26-2025 ambulatory SCOOBY JENNY Not Available Start: 01-01-2025 End: 01-01-2025 Bamboo flowsheet Deborah RUBIN Work Phone: [facility] Start: 01-01-2025 End: 01-01-2025 Bamboo flowsheet Deborah RUBIN Work Phone: [facility] Start: 01-01-2025 End: 01-01-2025 flow sheet Deborah RUBIN Work Phone: [facility] Comment on above: Second trimester pre gnancy ([facility]); 22 weeks gestation of ([facility]) Start: 01-01-2025 End: 01-01-2025 ambulatory DEBORAH RODRIGUEZ Not Available Start: 12-19-2024 End: 12-19-2024 Clinisync Result Encounter Scooby Jenny DO Work Phone: [facility] Unsolicited Start: 12-19-2024 End: 12-19-2024 Clinisync Result Encounter Scooby Jenny DO Work Phone: [facility]solic[facility] Start: 12-04-2024 End: 12-04-2024 Bamboo flowsheet Scooby Jenny DO Work Phone: [facility] Start: 12-04-2024 End: 12-06-2024 Bamboo flowsheet Scooby Jenny DO Work Phone: [facility] Start: 12-04-2024 End: 12-06-2024 Clinisync Result Encounter Scoobyascencion Velizo DO Work Phone: [facility]solic[facility] Start: 12-04-2024 End: 12-06-2024 External Result Encounter Deborah RUBIN Work Phone: [facility]solic[facility] Start: 12-04-2024 End: 12-04-2024 Telephone encounter Rowena STAPLES Work Phone: [facility] Start: 12-04-2024 End: 12-04-2024 ambulatory SCOOBY JENNY Not Available Start: 12-04-2024 End: 12-04-2024 Patient encounter procedure Scooby Jenny DO Work Phone: [facility] Start: 12-04-2024 End: 12-04-2024 flow sheet Scooby Jenny DO Work Phone: [facility] Comment on above: Second trimester pre gnancy ([facility]); 18 weeks gestation of ([facility]); Well woman exam with routine gynecological exam; Screening, , for anatomic survey ([facility]); Screen for STD (sexually transmitted disease); Need for maternal serum alpha-protein (MSAFP) screening ([facility]) Start: 11-24-2024 End: 11-24-2024 ambulatory Oma Davis RN Work Phone: [facility] Comment on above: Gestational diabetes mellitus (GDM) in second trimester, gestational diabetes method of control unspecified Start: 11-13-2024 End: 11-13-2024 flow sheet Scooby Jenny DO Work Phone: [facility] Comment on above: 15 weeks gestation o f ; Second trimester ; Diet controlled gestational diabetes mellitus (GDM), antepartum; Gestational diabetes mellitus (GDM), antepartum, gestational diabetes method of control unspecified; Elevated glucose tolerance test Start: 11-13-2024 End: 11-13-2024 ambulatory SCOOBY JENNY Not Available Start: 11-11-2024 End: 11-11-2024 Clinisync Result Encounter Scooby Jenny DO Work Phone: [facility]solic[facility] Start: 11-11-2024 End: 11-11-2024 Clinisync Result Encounter Scooby Alvarado DO Work Phone: [facility] Unsolicited Start: 10-16-2024 End: 10-16-2024 Office outpatient visit 5 minutes [facility] Jenny Nurse [facility] Comment on above: GA: 11w2d Start: 10-16-2024 End: 10-16-2024 ambulatory SCOOBY ALVARADO Not Available Start: 12-20-2023 End: 12-21-2023 ambulatory NO PCP NO PCP [facility] Start: 12-19-2023 End: 12-20-2023 Emergency department patient visit RENITA MARYLOU [facility] Start: 12-19-2023 End: 12-19-2023 Emergency department patient visit NO PCP NO PCP [facility] Start: 03-01-2022 End: 03-01-2022 ambulatory Kym Masterson Facility:[facility] Start: 11-08-2021 End: 11-08-[address] SCOOBY ALVARADO Facility:[facility] Start: 08-01-2021 End: 08-01-[address] SCOOBY ALVARADO Facility:[facility] Start: 07-30-2021 End: 07-31-2021 Evaluation and management of inpatient DR SCOOBY ALVARADO Facility:[facility] Start: 07-13-2021 End: 07-13-[address] SCOOBY ALVARADO Facility:[facility] Start: 07-11-2021 End: 07-12-[address] NADIA DOOLEY Facility:[facility] Start: 07-09-2021 End: 07-09-2021 ambulatory Renita Canseco Other [facility] Other Start: 07-09-2021 Office outpatient vi sit 15 minutes Renita Canseco [facility] Start: 07-06-2021 End: 07-06-[address] SCOOBY ALVARADO Facility:[facility] Start: 06-20-2021 End: 06-21-[address] NADIA DOOLEY Facility:[facility] Start: 06-08-2021 End: 06-09-[address] SCOOBY ALVARADO Facility:[facility] Start: 05-04-2021 End: 05-11-2021 ambulatory [...] Date Procedure Procedure Detail Performing Clinician Start: 02-02-2025 Urnls dip stick/tabl et rgnt non-auto w/o micrscp Scooby Velizo DO Work Phone: Start: 01-01-2025 Urnls dip stick/tabl et rgnt non-auto w/o micrscp Deborah RUBIN Work Phone: Start: 12-19-2024 US OB ANATOMY Scooby Shae io DO Work Phone: Start: 12-19-2024 US OB CERVICAL LENGTH C orey Jenny DO Work Phone: Start: 12-04-2024 RECURRENT VAGINITIS (HTRX) Deborah RUBIN Work Phone: Start: 12-04-2024 Urnls dip stick/tabl et rgnt non-auto w/o micrscp [facility] DO Work Phone: Start: 12-04-2024 IGP,APTIMA HPV,AGE GDLN Scooby Jenny DO Work Phone: Start: 12-04-2024 Microscopic observat ion [Identifier] in Cervix [facility] Work [facility]: Start: 11-24-2024 Glucose quantitative blood xcpt reagent strip Amaya Schroeder PA-C Work Phone: Start: 11-13-2024 Urnls dip stick/tabl et rgnt non-auto w/o micrscp [facility] DO Work Phone: Start: 11-11-2024 BOX TEST Scooby [employer] Work Phone: Start: 10-16-2024 End: 10-16-2024 Urnls dip stick/tablet rgnt non-auto w/o micrscp [facility] DO Work Phone: Start: 07-30-2021 Delivery of [...] Treatment Date Care Activity Detail Author Start: 07-19-2031 DTaP,Tdap and Td Vaccines (3 - Td or Tdap) DTaP,Tdap and Td Vaccines (3 - Td or Tdap) [facility] Start: 12-04-2029 [facility]ening [facility] malign [facility] Start: 11-24-2025 Adult BMI Screening Adult BMI Screen ing [facility] Start: 02-23-2025 Influenza vaccination P [facility] Start: 02-16-2025 End: 02-16-2025 Patient encounter procedure 02/16/2025 2:30 PM EDT Routine [facility] [address] [place] [id number] Deborah Rodriguez PA [address] [place] [address] [facility] Start: 02-02-2025 End: 02-02-2025 Patient encounter procedure [facility] Comment on above: Arrived Start: 02-02-2025 End: 02-02-2026 CBC panel - Blood by Automated count CBC Lab Routine Diabetes mellitus screening Expected: 02/02/2025 (Approximate), Expires: 02/02/2026 [facility] Work Phone: Comment on above: Expected: 02/02/2025 (Approximate), Expires: 02/02/2026 Start: 01-20-2025 End: 01-20-2025 Professional / ancillary services management 01/20/2025 3:00 PM EDT Ancillary Procedure [facility] [address] [place] [id number] [facility] Start: 01-01-2025 End: 01-01-2025 Patient encounter procedure [facility] Comment on above: Arrived Start: 12-20-2024 Tobacco Screening Tobacco Screening [facility] Start: 12-19-2024 Adult BMI Screening Adult BMI Screen ing [facility] Start: 12-04-2024 End: 01-03-2025 Alpha fetoprotein, maternal Alpha fetoprotein, maternal Lab Routine Need for maternal serum alpha-protein (MSAFP) screening ([facility]) Expected: 12/04/2024 (Approximate), Expires: 01/03/2025 [facility] Comment on above: Expected: 12/04/2024 (Approximate), Expires: 01/03/2025 Start: 12-04-2024 End: 03-06-2025 US for US OB 14+ weeks anatomy scan Imaging Routine Screening, , for anatomic survey ([facility]) Expected: 12/04/2024, Expires: 03/06/2025 [facility] Comment on above: Expected: 12/04/2024 , Expires: 03/06/2025 Start: 12-04-2024 End: 12-04-2024 Patient encounter procedure 12/04/2024 9:40 AM EDT Routine [facility] [address] [place] [id number] Scooby Alvarado, DO [address] [place] [address] [facility] Start: 11-13-2024 End: 11-13-2024 Patient encounter procedure 11/13/2024 10:40 AM EDT Routine [facility] [address] [place] [phone] Scooby Alvarado, DO [address] [place] [address] [facility] Start: 10-16-2024 End: 10-16-2025 ABO/Rh ABO/Rh Lab Routine Missed menses , unspecified gestational age Expected: 10/16/2024 (Approximate), Expires: 10/16/2025 [facility] Comment on above: Expected: 10/16/2024 (Approximate), Expires: 10/16/2025 Start: 10-16-2024 End: 10-16-2025 Blood type and Indirect antibody screen panel - Blood Type and screen Lab Routine Missed menses , unspecified gestational age Expected: 10/16/2024 (Approximate), Expires: 10/16/2025 [facility] Work Phone: Comment on above: Expected: 10/16/2024 (Approximate), Expires: 10/16/2025 Start: 10-16-2024 End: 10-16-2025 Drugs of abuse panel - Urine by Screen method Rapid drug screen, urine Lab Routine , unspecified gestational age Encounter for supervision of normal first in first trimester Expected: 10/16/2024 (Approximate), Expires: 10/16/2025 [facility] Comment on above: Expected: 10/16/2024 (Approximate), Expires: 10/16/2025 Start: 02-24-2024 COVID-19 Vaccine (4 - 2024-25 season) COVID-19 Vaccine () [facility] Start: 2021 Screening for malign ant neoplasm of cervix [facility] Start: 2012 Screening for malign ant neoplasm of cervix Pap Smear [facility] Start: 2009 Adult BMI Follow Up Plan Adult BMI Follow Up Plan [facility] Start: 2003 Depression Screening Depression Scre ening [facility] Bacteria identified in Urine by Culture Urine culture Microbiology Routine Missed menses Ordered: 10/16/2024 [facility] Comment on above: Ordered: 10/16/2024 CBC W Auto Different ial panel - Blood CBC and differential Lab Routine Missed menses , unspecified gestational age Ordered: 10/16/2024 [facility] Comment on above: Ordered: 10/16/2024 CHLAMYDIA TRACHOMATI S (GENITO/STI) CHLAMYDIA TRACHOMATIS (GENITO/STI) Lab Routine Screen for STD (sexually transmitted disease) Ordered: 12/04/2024 [facility] Comment on above: Ordered: 12/04/2024 Cytology Cervical or vaginal smear or scraping study Pap Smear Pathology and Cytology Routine Well woman exam with routine gynecological exam Ordered: 12/04/2024 [facility] Comment on above: Ordered: 12/04/2024 Hemoglobin A1c/Hemoglobin.total in Blood Hemoglobin A1c Lab Routine Missed menses , unspecified gestational age Ordered: 10/16/2024 [facility] Comment on above: Ordered: 10/16/2024 Hepatitis B virus surface Ag [Presence] in Serum or Plasma by Immunoassay Hepatitis B surface antigen Lab Routine Missed menses , unspecified gestational age Ordered: 10/16/2024 [facility] Comment on above: Ordered: 10/16/2024 Hepatitis C virus Ab [Presence] in Serum or Plasma by Immunoassay Hepatitis C antibody Lab Routine Missed menses , unspecified gestational age Ordered: 10/16/2024 [facility] Comment on above: Ordered: 10/16/2024 HIV-1/HIV-2 antigen/antibody combination immunoassay HIV-1 and HIV-2 antibodies Lab Routine Missed menses , unspecified gestational age Ordered: 10/16/2024 [facility] Comment on above: Ordered: 10/16/2024 Human papilloma viru s DNA [Presence] in Unspecified specimen by Probe with amplification HPV DNA probe, amplified Microbiology Routine Well woman exam with routine gynecological exam Ordered: 12/04/2024 [facility] Comment on above: Ordered: 12/04/2024 Neisseria gonorrhoea e DNA [Presence] in Unspecified specimen by CARLITOS with probe detection Neisseria gonorrhea DNA probe, direct Lab Routine Screen for STD (sexually transmitted disease) Ordered: 12/04/2024 [facility] Comment on above: Ordered: 12/04/2024 Reagin Ab [Presence] in Serum by RPR RPR Lab Routine Missed menses , unspecified gestational age Ordered: 10/16/2024 [facility] Comment on above: Ordered: 10/16/2024 Rubella antibody, IgG Rubella an tibody, IgG Lab Routine Missed menses , unspecified gestational age Ordered: 10/16/2024 [facility] Comment on above: Ordered: 10/16/2024 SURESWAB(R) ADVANCED VAGINITIS PLUS, TMA SURESWAB(R) ADVANCED VAGINITIS PLUS, TMA Pathology and Cytology Routine Screen for STD (sexually transmitted disease) Ordered: 12/04/2024 [facility] Work Phone: Comment on above: Ordered: 12/04/2024 Immunizations Immunization Date Immunization Notes Care Provider [facility] 04-04-2024 influenza virus vaccine, unspecified formulation Oma Davis RN Work Phone: [facility] Payers Date Payer Category Payer Medicaid [facility] [id number] 2025 Medicaid [id number] 2022 Self-pay 2022 Managed Care Other (unspecified) [employer] [id number] 2022 Private Health Insurance [facility] [id number] 2022 Private Health Insurance [facility] [id number] 1991 Unknown [id number] 2.16.840.1.682294.3.579.2. 593 1991 Unknown [id number] 2.16.840.1.616013.3.579.2. 593 1991 Unknown [id number] 2.16.840.1.645421.3.579.2. 593 1991 Unknown [id number] 2.16.840.1.819284.3.579.2. 593 1991 Unknown [id number] 2.16.840.1.680076.3.579.2. 593 1991 Unknown [id number] 2.16.840.1.978054.3.579.2. 593 1991 Unknown [id number] 2.16.840.1.038912.3.579.2. 593 1991 Unknown [id number] 2.16.840.1.712351.3.579.2. 593 1991 Unknown [id number] 2.16.840.1.560068.3.579.2. 593 1991 Unknown [id number] 2.16.840.1.581190.3.579.2. 593 1991 Unknown [id number] 2.16.840.1.852201.3.579.2. 593 1991 Unknown [id number] 2.16.840.1.572806.3.579.2. 593 1991 Unknown [id number] 2.16.840.1.419450.3.579.2. 593 1991 Unknown [id number] 2.16.840.1.985199.3.579.2. 593 1991 Unknown [id number] 2.16.840.1.075574.3.579.2. 593 1991 Unknown [id number] 2.16.840.1.630702.3.579.2. 593 1991 Unknown [id number] 2.16.840.1.112342.3.579.2. 593 1991 Unknown [id number] 2.16.840.1.553752.3.579.2. 593 1991 Unknown [id number] 2.16.840.1.593060.3.579.2. 593 1991 Unknown [id number] 2.16.840.1.861972.3.579.2. 593 1991 Unknown [id number] 2.16.840.1.210058.3.579.2. 1286 1991 Unknown [id number] 2.16.840.1.234108.3.579.2. 1286 1991 Unknown [id number] 2.16.840.1.161682.3.579.2. 1286 1991 Unknown [id number] 2.16.840.1.267958.3.579.2. 1286 1991 Unknown [id number] 2.16.840.1.221565.3.579.2. 9 1991 Unknown [id number] 2.16.840.1.603827.3.579.2. 9 1991 Unknown [id number] 2.16.840.1.140714.3.579.2. 9 1991 Unknown [id number] 2.16.840.1.165713.3.579.2. 9 1991 Unknown [id number] 2.16.840.1.989001.3.579.2. 9 1991 Unknown [id number] 2.16.840.1.334999.3.579.2. 9 1991 Unknown [id number] 2.16.840.1.474932.3.579.2. 1259 1959 Unknown [id number] 1959 Unknown [id number] Unknown [id number] 2.16.840.1.924916.3.579.2. 531 Social History Date Type Detail Facility Start: 08-05-2020 End: 12-21-2023 [facility] Start: 08-12-2024 [facility] Start: 1990 Sex assigned at Female [facility] Start: 06-27-2023 Gender identity Identifies as female gender (finding) [facility] Start: 06-27-2023 Sexual orientation Heterosexual (finding) [facility] Start: 08-25-2019 Tobacco smoking status NMIS Never smoked tobacco [facility] Start: 08-25-2019 Tobacco use and exposure Smokeless tobacco non-user [facility] Start: 11-19-2024 Alcoholic beverage intake [facility] Start: 08-05-2020 End: 12-21-2023 History of Social function [facility] Are you worried or concerned that in the next two months you may not have stable housing that you own, rent or stay in as a part of a household? No [facility] Start: 1990 Sex assigned at Not on file [facility] Start: 01-28-2015 Sex Female (finding) [facility] Medical Equipment Procedure Code Equipment Code Equipment Origin al Text Equipment Identifier Dates 1 strip by In Vi tro route Daily Use in the morning prior to breakfast, 1 hour after each meal for a total of 4times daily. [id number] Start: 11-13-2024 End: 12-13-2024 1 each by In Vit ro route Daily Use to check FSBS four times daily [id number] Start: 11-13-2024 End: 12-13-2024 Clinical Notes 07-09-2021 to 02-02-2025 Krys Ambrosio NP - 02/02/2025 2:50 PM SCOTTIE Vasques - 01/01/2025 1:30 PM EDTTelephone Encounter - BEL Anderson - 12/04/2024 11:02 AM EDTMrex Grant MA - 12/04/2024 9:40 AM EDT Note Date & Type Note Facility 02-02-2025 History of Presen t illness Narrative Reason for Appointment: Patient ID: Paris Mosqueda is a 34 y.o. female who presents for Routine Visit Patient presents today for Return OB appointment. MEDICATIONS Current Outpatient Medications Medication Instructions Alcohol Swabs (Alcohol Prep Pad) 70 % pads 1 Pad, Topical, Daily, Use four times daily to check FSBS. Blood Glucose Monitoring Suppl (D-Care Glucometer) w/Device kit 1 kit, Does not apply, Daily, Use four times daily to check FSBS. In the morning prior to breakfast & 1 hour after each meal for a total of 4times daily. [id number] ( 1 + IRON PO) Take by mouth ProFe 391.3 (180 Fe) MG capsule 1 capsule, Daily ALLERGIES No Known Allergies PROBLEMS Active Ambulatory [...] SYSTEMS Review of Systems: Review of Systems Constitutional: Negative. HENT: Negative. Eyes: Negative. Respiratory: Negative. Cardiovascular: Negative. Gastrointestinal: Negative. Genitourinary: Negative. Musculoskeletal: Negative. Skin: Negative. Neurological: Negative. All other systems reviewed and are negative. Hematological: Negative. Endocrine: Negative. Allergic/Immunologic: Negative. OBJECTIVE Objective: Physical Exam Constitutional: Appearance: Normal appearance. She is well-developed. Cardiovascular: Rate and Rhythm: Normal rate and regular rhythm. Pulmonary: Effort: Pulmonary effort is normal. Breath sounds: Normal breath sounds. Abdominal: General: Bowel sounds are normal. There is no distension. Palpations: Abdomen is soft. Tenderness: There is no abdominal tenderness. There is no guarding or rebound. Musculoskeletal: General: No swelling. Normal range of motion. Right lower leg: No edema. Left lower leg: No edema. Neurological: Mental Status: She is alert and oriented to person, place, and time. Skin: General: Skin is warm and dry. Psychiatric: Mood and Affect: Mood normal. Behavior: Behavior normal. Vitals and nursing note reviewed. Exam conducted with a managed services sales consultant present. Vitals: Estimated body mass index is 33 kg/m as calculated from the following: Height as of 12/04/24: 5' 4 . Weight as of this encounter: 192 lb 4 oz. BP: 136/78 Patient's last menstrual period was 07/29/2024 (exact date). ASSESSMENT & PLAN ICD-10-CM 1. Second trimester ([facility]) Z34.92 POCT urinalysis dipstick manually resulted 2. 26 weeks gestation of ([facility]) Z3A.26 3. Diabetes mellitus screening Z13.1 CBC CBC CANCELED: Glucose tolerance, 1 hour CANCELED: Glucose tolerance, 1 hour Return OB: Patient presents today for a routine obstetrics appointment. Patient is currently 26w6d . Patient states she is doing well but has complaints of being tired due to current . Patient has verbalizes frequent movement. labor precautions was discussed/given and patient was instructed to perform kick counts three times a day. Orders Placed This Encounter Procedures CBC POCT urinalysis dipstick manually resulted Follow Up: Patient is to return to office in 2 week for routine OB appointment. Has continued to keep glucose log and completed Diabetic education through [facility]. Documented by Krys Ambrosio NP on behalf of: Scooby Alvarado DO documented in this encounter [facility] 01-01-2025 History of Presen t illness Narrative Reason for Appointment: Patient ID: Paris Mosqueda is a 34 y.o. female who presents for Routine Visit Patient presents today for Return OB appointment. MEDICATIONS Current Outpatient Medications Medication Instructions Alcohol Swabs (Alcohol Prep Pad) 70 % pads 1 Pad, Topical, Daily, Use four times daily to check FSBS. Blood Glucose Monitoring Suppl (D-Care Glucometer) w/Device kit 1 kit, Does not apply, Daily, Use four times daily to check FSBS. In the morning prior to breakfast & 1 hour after each meal for a total of 4times daily. Uxtqaiil-Jza-Os-FA ( 1 + IRON PO) Take by [...] SYSTEMS Review of Systems: Review of Systems OBJECTIVE Objective: OBGyn Exam Vitals: Estimated body mass index is 32.79 kg/m as calculated from the following: Height as of 25: 5' 4 . Weight as of this encounter: 191 lb. BP: 124/72 Patient's last menstrual period was 07/29/2024 (exact date). ASSESSMENT & PLAN ICD-10-CM 1. Second trimester ([facility]) Z34.92 POCT urinalysis dipstick manually resulted 2. 22 weeks gestation of ([facility]) Z3A.22 Return OB: Patient presents today for a routine obstetrics appointment. Patient is currently 22w2d . Patient states she is doing well but has complaints of being tired due to current . Patient has verbalizes frequent movement. labor precautions was discussed/given and patient was instructed to perform kick counts three times a day. Patient has her repeat anatomy scan already scheduled. Orders Placed This Encounter Procedures POCT urinalysis dipstick manually resulted Follow Up: Patient is to return to office in 3 week for routine OB appointment. Documented by Yane Grant MA on behalf of: SCOTTIE Yañez documented in this encounter [facility] 12-04-2024 Miscellaneous Notes Formattin g of this note might be different from the original. Called regarding blood sugar logs from 11/25/2024-11/30/2024 but received voicemail. Your doing a great job checking and recording your blood sugars. You did have 3 elevated fasting blood sugars so checking to make sure that you are having a high fiber snack in the evening with a protein (refer to your snack list for better choices in the evening). [...] have questions you can call me at [phone]. Please continue to send in blood sugars weekly. I will also send a [employer] message. documented in this encounter [facility] 12-04-2024 Telephone encount er Note Called regarding blood sugar logs from 11/25/2024-11/30/2024 but received voicemail. Your doing a great job checking and recording your blood sugars. You did have 3 elevated fasting blood sugars so checking to make sure that you are having a high fiber snack in the evening with a protein (refer to your snack list for better choices in the evening). [...] have questions you can call me at [phone]. Please continue to send in blood sugars weekly. I will also send a [employer] message. [facility]: 12-04-[facility]24 History of Presen t illness Narrative Reason for Appointment: Patient ID: Paris Mosqueda is a 34 y.o. female who presents for Routine Visit Patient presents today for Return OB appointment. MEDICATIONS Current Outpatient Medications Medication Instructions Alcohol Swabs (Alcohol Prep Pad) 70 % pads 1 Pad, Topical, Daily, Use four times daily to check FSBS. Blood Glucose Monitoring Suppl (D-Care Glucometer) w/Device kit 1 kit, Does not [...] Use to check FSBS four times daily Dwjragst-Lcm-Ds-FA ( 1 + IRON PO) Take by [...] nursing note reviewed. Exam conducted with a managed services sales consultant present. Vitals: There is no height or weight on file to calculate BMI. BP: 118/72 Patient's last menstrual period was 07/29/2024 (exact date). ASSESSMENT & PLAN ICD-10-CM 1. Second trimester ([facility]) Z34.92 POCT urinalysis dipstick manually resulted 2. 18 weeks gestation of ([facility]) Z3A.18 3. Well woman exam with routine gynecological exam Z01.419 Pap Smear HPV DNA probe, amplified 4. Screening, , for anatomic survey ([facility]) Z36.89 US OB 14+ weeks anatomy scan 5. Screen for STD (sexually transmitted disease) Z11.3 SURESWAB(R) ADVANCED VAGINITIS PLUS, TMA CHLAMYDIA TRACHOMATIS (GENITO/STI) Neisseria gonorrhea DNA probe, direct 6. Need for maternal serum alpha-protein (MSAFP) screening ([facility]) Z36.1 Alpha fetoprotein, maternal Alpha fetoprotein, maternal [...] Scooby Alvarado DO documented in this encounter [facility] 11-24-2024 Group counseling note Patient: Paris Mosqueda Date: 11/24/2024 Vitals: 11/24/24 [...] Face to face time was 85 minutes. [employer] Work Phone: 11-24-2024 Miscellaneous Notes Formattin g of this note is different from the original. Patient: Paris Mosqueda Date: 11/24/2024 Vitals: 11/24/24 [...] was 85 minutes. documented in this encounter [employer] 11-13-2024 History of Presen t illness Narrative Reason for Appointment: Patient ID: Paris Mosqueda is a 34 y.o. female who presents for Routine Visit Patient presents today for Return OB appointment. MEDICATIONS Current Outpatient Medications Medication Instructions Alcohol Swabs (Alcohol Prep Pad) 70 % pads 1 Pad, Topical, Daily, Use four times daily to check FSBS. Blood Glucose Monitoring Suppl (D-Care Glucometer) w/Device kit 1 kit, Does not [...] Use to check FSBS four times daily Xatqlanf-Qpe-Sf-FA ( 1 + IRON PO) Take by [...] Other Depression Other Hyperlipidemia Other SURGICAL HISTORY History reviewed. No pertinent surgical history. REVIEW OF SYSTEMS Review of Systems: Review of Systems Constitutional: Negative. HENT: Negative. Eyes: Negative. Respiratory: Negative. Cardiovascular: Negative. Gastrointestinal: Negative. Genitourinary: Negative. Musculoskeletal: Negative. Skin: Negative. Neurological: Negative. All other systems reviewed and are negative. Hematological: Negative. Endocrine: Negative. Allergic/Immunologic: Negative. OBJECTIVE Objective: Physical Exam Constitutional: Appearance: Normal appearance. She is well-developed. Cardiovascular: Rate and Rhythm: Normal rate and regular rhythm. Pulmonary: Effort: Pulmonary effort is normal. Breath sounds: Normal breath sounds. Abdominal: General: Bowel sounds are normal. There is no distension. Palpations: Abdomen is soft. Tenderness: There is no abdominal tenderness. There is no guarding or rebound. Musculoskeletal: General: No swelling. Normal range of motion. Right lower leg: No edema. Left lower leg: No edema. Neurological: Mental Status: She is alert and oriented to person, place, and time. Skin: General: Skin is warm and dry. Psychiatric: Mood and Affect: Mood normal. Behavior: Behavior normal. Vitals and nursing note reviewed. Exam conducted with a managed services sales consultant present. Vitals: There is no height or weight on file to calculate BMI. BP: 128/70 Patient's last menstrual period was 07/29/2024 (exact date). ASSESSMENT & PLAN ICD-10-CM 1. 15 weeks gestation of Z3A.15 POCT urinalysis dipstick manually resulted 2. Second trimester Z34.92 POCT urinalysis dipstick manually resulted 3. Diet controlled gestational diabetes mellitus (GDM), antepartum O24.410 4. Gestational diabetes mellitus (GDM), antepartum, gestational diabetes method of control unspecified O24.419 Lancets Ultra Thin misc Alcohol Swabs (Alcohol Prep Pad) 70 % pads Glucose Blood (Blood Glucose Test) strip Blood Glucose Monitoring Suppl (D-Care Glucometer) w/Device kit 5. Elevated glucose tolerance test R73.09 Lancets Ultra Thin misc Alcohol Swabs (Alcohol Prep Pad) 70 % pads Glucose Blood (Blood Glucose Test) strip Blood Glucose Monitoring Suppl (D-Care Glucometer) w/Device kit New OB: Patient presents today for 1st time obstetrics appointment with provider. Patient is currently 15w3d . Patients history has been reviewed in great detail including any potential risks. Patient stated she currently has no complaints. Expectations throughout regarding labs, ultrasounds, and appointments have been discussed with the patient in detail. It was reiterated that the patient is to drink 6-8 glasses of water a day, eat 6 small meals a day, do not consume raw or undercooked meat, and stay away from [facility]. Patient has been consulted regarding any further do's and don'ts of . Patient voiced understanding and all questions and concerns were answered. Orders Placed This Encounter Procedures POCT urinalysis dipstick manually resulted Discussed with patient her recent A1c results and patient aware that referral will be sent to [facility] for Diabetic Education and monitoring. PVU and supplies sent to pharmacy for patient to pickup and take with her to her referral appointment. Follow Up: Patient is to return in 4 weeks for routine OB appointment. Documented by Wendy Ulloa LPN on behalf of: Scooby Alvarado DO documented in this encounter [facility] 10-16-2024 History of Presen t illness Narrative [...] or undercooked meat, and stay away from [facility]. Patient has also been advised to not [...] Faye Tyler MA documented in this encounter [facility] 07-09-2021 Evaluation note Encounter Date Diagnosis Assessment [...] Patient care instructions given in writting by [facility] Care At Home document [employer] Other Evaluation note* Diagnosis Missed menses Missed menses , unspecified gestational age Encounter for supervision of normal first in first trimester documented in this encounter [facility]* Diagnosis 15 weeks gestation of Second trimester state, incidental Diet controlled gestational diabetes mellitus (GDM), antepartum Gestational diabetes mellitus (GDM), antepartum, gestational diabetes method of control unspecified Elevated glucose tolerance test Impaired glucose tolerance test documented in this encounter [facility]* Diagnosis Gestational diabetes mellitus (GDM) in second trimester, gestational diabetes method of control unspecified [facility] Diagnosis Second trimester ([facility]) state, incidental 18 weeks gestation of ([facility]) Well woman exam with routine gynecological exam Routine gynecological examination Screening, , for anatomic survey ([facility]) Encounter for anatomic survey Screen for STD (sexually transmitted disease) Screening examination for venereal disease Need for maternal serum alpha-protein (MSAFP) screening ([facility]) [facility] Diagnosis Second trimester ([facility]) state, incidental 22 weeks gestation of ([facility]) [facility] Diagnosis Second trimester ([facility]) state, incidental 26 weeks gestation of ([facility]) Diabetes mellitus screening Screening for diabetes mellitus documented in this encounter [facility]ructionsNot on filedocumented in [facility] on filedocumented [facility] Summary Purpose Family History No Family History Records FoundNo Family History Records FoundNo Family History Records FoundNo Family History Records FoundNo Family History Records Found Advance Directives Date Activated Date Inactivated Comments 12/20/2023 11:13 PM 12/21/2023 1:46 PM Additional Source Comments INFORMATION SOURCE (unrecogn ized section and content) DATE CREATED AUTHOR 11/17/2021 [facility] DATE CREATED AUTHOR AUTHOR'S ORGANIZ ATION 03/24/2022 [facility] DATE CREATED AUTHOR AUTHOR'S ORGANIZ ATION 12/29/2023 [facility] DATE CREATED AUTHOR AUTHOR'S ORGANIZ ATION 11/25/2024 [facility] DATE CREATED AUTHOR AUTHOR'S ORGANIZ ATION 02/03/2025 [facility] EPIC REASON FOR VISIT (unrecogniz ed section and content) Reason Comments Amenorrhea Reason Comments Routine Visit Reason Comments Gestational Diabetes Specialty Diagnoses / Procedures Referred By Belen vu Referred To Contact Maternal and Medicine Diagnoses Gestational diabetes mellitus (GDM) in second trimester, gestational diabetes method of control unspecified Scooby Alvarado R, DO [address] [address] Phone: tel: fax: Maternal- Medicine at [facility] [address] [place] [address] Phone: tel: fax: Referral ID Status Reason Start Date Expiration Date Visits Requested Visits Authorized [id number] Pending Review Specialty Services Required 11/19/2024 11/19/2025 1 1 Care Teams (unrecognized sec tion and content) Hvac/R Instructor Relationship Specialty Start Date End Date No Pcp, [place] [address] PCP - General Family Medicine 12/19/23 Hvac/R Instructor Relationship Specialty Start Date End Date No Pcp, [place] [address] PCP - General Family Medicine 12/19/23 FOR RECORDS PERTAINING TO PATIENTS WHO ARE [...] BE BASED ON THE PRIMARY CLINICAL RECORDS. [facility] [employer] [facility] provides no warranty or guarantee of the accuracy or completeness of information in this document.
[2025-02-13 07:12] LABS: Hematocrit 33.1 % (36.0-48.0); Hemoglobin 10.6 g/dL (12.0-16.0); Immature Granulocytes Abs Auto 0.05 10^3/uL (0.00-0.03); Immature Granulocytes Pct Auto 0.5 % (0.0-0.5); Lymphocytes Absolute Auto 3.0 10^3/uL (1.2-3.8); Mean Corpuscular HGB Conc 32.0 g/dL (29.9-35.2); Mean Corpuscular Hemoglobin 25.4 pg (26.7-34.0); Mean Corpuscular Volume 79.2 fL (81.0-99.0); Platelet Count 279 10^3/uL (150-450); Red Blood Count 4.18 10^6/uL (4.20-5.40); White Blood Count 9.7 10^3/uL (4.0-11.0)
== END 2025-02-13 07:00 | disposition home or self-care (01) ==
LOC: LAB 07:01
PROVIDERS: Visit Provider Obstetrics & Gynecology
DX: Z13.1 Encounter for screening for diabetes mellitus (principal)
CPT/HCPCS: 36415; 85025

== ENCOUNTER 2025-03-27 14:00 | Outpatient (OUT) | payer MEDICAID, SELFPAY ==
--- OUTSIDE RECORDS SUMMARY | 2024-07-15 11:45 | XMS_ITS ---
Author Organization [facility] vices Address [address] [place] [phone] Care Team Providers Care Collar Turner Operator Name Role Phone Pako Mays Unavailable [phone] REASON FOR VISIT CANCEL- Periodic Exam Social History Sex Assigned At : Social History Observation Description Sex Assigned At Female Encounters Encounter Location Date Provider Diagnosis [facility] [address] [place] [phone] 07/15/2024 Pako Mays Plan Of Treatment Next Appt Details Provider Name:Najma gimenez, 10/02/2025 11:15:00 AM, [address] [place] [address], [phone], Progress Notes * Paris MOSQUEDADOB:1990 (34 yo F)Acc No.[id number]:07/15/2024 Patient: Antonette TORRESica Provider: Yesenia Mays DDS :1990 A ge:34 Y S ex:Female Date:07/15/2024 Address:[address] [place] [address], [id number] Subjective: * Chief Complaints: * 1 . CANCEL- Periodic Exam. * Medical History: Objective: * Vitals: Assessment: Plan: * Treatment: * Billing Information: * Visit Code: * Procedure Codes: * Electronic signature of Radha Mays DDS on 03/27/2025 at 02:02 PM EDT Sign off status: Pending * Provider: Yesenia Mays, REES Date: 0 07/15/2024 Generated for Na llamas/Mark/Christophe on: 1 02:02 PM EDT
--- OUTSIDE RECORDS SUMMARY | 2025-03-24 10:50 | XMS_ITS | Encounter Summary ---
Author Organization [facility] Address [address] [place] [address] Care Team Providers Care Project Control Manager Name Role Phone Unavailable Primary Care Provider Unavailabl e Reason for Visit * Reason Comments Routine Visit Encounter Details Date Type Department Care Team ([facility] [address] Contact Info) Description 03/24/2025 10:50 AM EDT Routine SHERLY [place] OBGYN [address] [facility] [place] [address] Krys Ambrosio, KAYY [address] [facility] [place] [address] 34 weeks gestation of ([facility]); Third trimester ([facility]); Gestational diabetes mellitus (GDM) in third trimester, gestational diabetes method of control unspecified ([facility]) Social History Tobacco Use Types Packs/Day Years [...] to check FSBS. Blood Glucose Monitoring Suppl ([employer] Glucometer) w/Device kit 1 kit, Does not apply, Daily, Use four times daily to check FSBS. In the morning prior to breakfast & 1 hour after each meal for a total of 4times daily. Dsledgjd-Ztn-Tx-FA ( 1 + IRON PO) Take by mouth ProFe 391.3 (180 Fe) MG capsule 1 capsule, Daily ALLERGIES Not on File PROBLEMS Active Ambulatory Problems Diagnosis Date Noted 28 weeks gestation of ([facility]) 02/16/2025 Third trimester ([facility]) 02/16/2025 Resolved Ambulatory Problems Diagnosis Date Noted [...] nursing note reviewed. Exam conducted with a director of cardiology present. Vitals: Estimated body mass index is 33.44 kg/m?? as calculated from the following: Height as of 12/04/24: 5' 4 . Weight as of 03/10/25: 194 lb 12.8 oz. BP: Patient's last menstrual period was 07/29/2024 (exact date). ASSESSMENT & PLAN ICD-10-CM 1. 34 weeks gestation of ([facility]) Z3A.34 2. Third trimester ([facility]) Z34.93 US biophysical profile w non stress test POCT urinalysis dipstick manually resulted 3. Gestational diabetes mellitus (GDM) in third trimester, gestational diabetes method of control unspecified ([facility]) O24.419 Return OB: Patient presents today for a routine obstetrics appointment. Patient is currently 34w0d . Patient states she is doing well but has complaints of being tired due to current w/some pelvic pain. Patient has verbalizes frequent movement. labor precautions was discussed/given and patient was instructed to perform kick counts three times a day. She continues to send her glucose logs to [facility] and we will begin NST/BPP this [...] Care Team (Late st Contact Info) Description 04/07/2025 1:30 PM EDT Routine SHERLY MARES [address] [facility] [place] [address] Deborah Kwan PA [address] [facility] [place] [address] 06/15/2025 9:50 AM EST Visit SHERLY MARES [address] [facility] [place] [address] Scooby Alvarado DO [address] [facility] [place] [address] Scheduled Orders Name Type Priority Associated Diagnoses Orde r Schedule US biophysical profile w non stress test Imaging Routine Third trimester ([facility]) Expected: 03/24/2025 (Approximate), Expires: 09/21/2025 documented as of this encounter Procedures Procedure Name Priority Date/Time Associated Diagnosis Comments POCT URINALYSIS DIPSTICK Routine 03/24/2025 11:11 AM EDT Third trimester ([facility]) documented in this encounter Results * (ABNORMAL) [...] Positive Urine 03/24/2025 11:1 1 AM EDT us Krys Ambrosio NP POINT OF CARE TEST ENTER/EDIT ORDERABLES Final Result documented in this encounter Visit Diagnoses Diagnosis 34 weeks gestation of ([facility]) Third trimester ([facility]) state, incidental Gestational diabetes mellitus (GDM) in third trimester, gestational diabetes method of control unspecified ([facility]) documented in this encounter
--- OUTSIDE RECORDS SUMMARY | 2025-03-27 14:02 | XMS_ITS | Encounter Summary ---
Author Organization [facility] Address [address] [place] [address] Care Team Providers Care Cellular Biologist Name Role Phone Unavailable Primary Care Provider Unavailabl e Encounter Details Date Type Department Care Team ([facility] Contact Info) Description 11/13/2024 Results Follow-Up [facility] Sanam OBGYDelia [address] [facility] [place] [address] Viola Washington LPN [address] [employer] [place] [id number] BOX TEST, ALL CBC WITH AUTO DIFF, [facility] DRUG SCREEN RAPID (URINE), MLR HEMOGLOBIN A1C Social History Tobacco Use Types Packs/Day Years [...] Info) Description 04/07/2025 1:30 PM EDT Routine NOMMyra MARES [address] [place] [address] Deborah Kwan PA [address] [facility] [address] [place], [place] [phone] 06/15/2025 9:50 AM EST Visit NOMMyra MARES [address] [place] [phone] Scooby Alvarado DO [address] [facility] [address] [place], [place] [phone] documented as of this encounter Visit Diagnoses Not on filedocumented in this encounter
--- OUTSIDE RECORDS SUMMARY | 2025-03-27 14:02 | XMS_ITS | Encounter Summary ---
Author Organization [facility] Address [address] [place] [address] Care Team Providers Care Mica Paster Name Role Phone Unavailable Primary Care Provider Unavailabl e Encounter Details Date Type Department Care Team (Late Contact Info) Description 12/12/2024 Orders Only SHERLY MARES [address] [place] [address] [place] [phone] Yane Grant MA [address] [place] [address] [place] [address] Social History Tobacco Use Types Packs/Day Years [...] Department Care Team (Late Contact Info) Description 04/07/2025 1:30 PM EDT Routine NOMMyra MARES [address] [place] [address] [place] [phone] Deborah Kwan PA [address] [facility] [place] [address] 06/15/2025 9:50 AM EST Visit NOMMyra MARES [address] [facility] [place] [address] Scooby Alvarado DO [address] [facility] [place] [address] documented as of this encounter Procedures Procedure [...]
--- OUTSIDE RECORDS SUMMARY | 2025-03-27 14:02 | XMS_ITS | Encounter Summary ---
Author Organization [facility] Address [address] [place] [facility] [place] [address] Care Team Providers Care Purse Framer Name Role Phone Epps, Jihan Antonio VIDEO PRODUCTION ENGINEER Unavailable [phone] Encounter Details Date Type Department Care Team (Late st Contact Info) Description 12/14/2023 Clinisync Result Encounter [facility] External Department Unsolicited Hector Alvarado DO [address] [place], [facility] Social History Tobacco Use Types Packs/Day Years [...] Info) Description 04/07/2025 1:30 PM EDT Routine [facility] Sanam MARES [address] [place] [address] Deborah Kwan PA [address] [place], [place] [phone] 06/15/2025 9:50 AM EST Visit [facility] Sanam MARES [address] [place] [address] Hector Alvarado, DO [address] [place] [address] [place] [address] (work) documented as of this encounter Procedures Procedure Name Priority Date/Time Associated Diagnosis Comments US OB TRANSVAGINAL 12/14/2023 9: 53 AM EDT documented in this encounter Results * US OB TRANSVAGINAL (12/14/2023 9:53 AM EDT) Anatomical Region Laterality Modality Other 12/14/2023 9:53 AM EDT Narrative 12/14/2023 9:56 AM EDT [address] [address] Ultrasound Report Signed Patient: PRISCILLA MOSQUEDA MR#: [id number] : 1990 Acct:[id number] Age/Sex: 33 / F ADM Date: 12/14/23 Loc: [facility] Attending Dr: Hector Alvarado D.O. Ordering Physician: Hector Alvarado D.O. Date of Service: 12/14/23 Procedure(s): US OB transvaginal Accession Number(s): [id number] cc: [facility] ; Hector Alvarado D.O. The [address] [address] Patient Name: PRISCILLA MOSQUEDA MRN: [id number] date: 1990 Sex: F Assigned Patient Location: [facility] Current Patient Location: [facility] Accession/Order Number: [id number] Exam Date: 12/14/2023 09:01 Report Date: 12/14/2023 [...] Nadia Dooley M.D. Signed By: 12/14/2356 DD/ TD/TT: Circuit Board Drafter: Procedure Note Radiology, Radiologist, - 12/14/2023 [place] [address] Ultrasound Report Signed Patient: PRISCILLA MOSQUEDAMR#: [id number] : 1990Acct:[id number] Age/Sex: 33 / FADM Date: 12/14/23 Loc: [facility] Attending Dr: Hector Alvarado D.O. Ordering Physician: Hector Alvarado D.O. Date of Service: 12/14/23 Procedure(s): US OB transvaginal Accession Number(s): [id number] cc: [facility] ; Hector Alvarado D.O. The [place] [id number] Patient Name: PRISCILLA MOSQUEDA MRN: [facility]:[id number] date: 1990 Sex: F Assigned Patient Location: [facility] Current Patient Location: [facility] Accession/Order Number: [id number] Exam Date: 12/14/2023 09:01 Report Date: 12/14/2023 [...] 09:53 Dictated By: Nadia Dooley M.D. Signed By:12/14/23 0956 DD/ TD/TT: Circuit Board Drafter: us Hector Jenny DO [facility] Final Result documented in this encounter Visit Diagnoses Not on filedocumented in this encounter Care Teams Purse Framer Relationship Specialty Start Date End Date Jihan Epps NP [address] [place] [address] PCP - [facility] 09/24/23 12/23/23 documented as of this encounter
--- OUTSIDE RECORDS SUMMARY | 2025-03-27 14:02 | XMS_ITS | Encounter Summary ---
Author Organization [facility] Address [address] [place] [facility] [place] [address] Care Team Providers Care Clinical Abstractor Name Role Phone Unavailable Primary Care Provider Unavailabl e Encounter Details Date Type Department Care Team (Late Contact Info) Description 03/24/2025 Bamboo flowsheet SHERLY MARES [address] [place] [address] [place] [address] Krys Ambrosio, KAYY [address] [facility] [place] [address] Social History Tobacco Use Types Packs/Day Years [...] 1:30 PM EDT Routine SHERLY MARES [address] [facility] [address] Deborah Kwan PA [address] [facility] [address] [facility] [address] [place], [facility] 06/15/2025 9:50 AM EST Visit [facility] Sanam MARES [address] [facility] [place] [address] Scooby Alvarado DO [address] [place] [address] [place] [address] documented as of this encounter Visit Diagnoses Not on filedocumented in this encounter
--- OUTSIDE RECORDS SUMMARY | 2025-03-27 14:02 | XMS_ITS | Clinical Summary ---
Author Organization [facility] Address [id number] [address] [place] [address] Care Team Providers Care Talent Management Manager Name Role Phone No Pcp, No [...] Encounters Date Type Department Care Team Description 03/20/2025 Telephone Maternal- Medicine at [facility] [address] [place] [phone] Amanda Putnam LD from Last 3 Months Family History Medical [...] Date Last Done Comments Depression Screening 2003 Pap Smear 2012 Tobacco Screening 12/20/2024 12/21/2023 COVID-19 Vaccine (2024-2 6 season) 2025 08/15/2021, 12/16/2020, 11/16/2020 Influenza Vaccine 02/23/2025 04/04/2024, , 04/01/2022, Additional history exists Adult BMI Screening 11/24/2025 11/24/2024 DTaP,Tdap and Td Vaccines (3 - Td or Tdap) 07/19/2031 07/19/2021, 07/11/2021 Medical Devices Not on file Insurance [facility] Advance Directives * Full Code (Latest Code Status on File) Date Activated Date Inactivated Comments 12/20/2023 11:13 PM 12/21/2023 1:46 PM Care Teams Talent Management Manager Relationship Specialty Start Date End Date No Pcp, No Pcp IZZY Wilhelm [address] PCP - General Family Medicine 12/19/23
--- OUTSIDE RECORDS SUMMARY | 2025-03-27 14:02 | XMS_ITS | Clinical Summary ---
Author Organization [facility] Address [address] [place] [address] Care Team Providers Care Indian Nanny Name Role Phone Unavailable Primary Care Provider Unavailabl e Medications Aswqilao-Wma-Ah- FA ( 1 + IRON PO) Take by mouth Active Alcohol Swabs (Alcohol Prep Pad) 70 % padsIndications: Gestational diabetes mellitus (GDM), antepartum, gestational diabetes method of control unspecified ([facility]),Elevat ed glucose tolerance test Apply 1 Pad topically Daily Use four times daily to check FSBS. 150 each 3 5 Active Blood Glucose Monitoring Suppl (D-Care Glucometer) w/Device kitIndications:G estational diabetes mellitus (GDM), antepartum, gestational diabetes method of control unspecified ([facility]),Elevat ed glucose tolerance test 1 kit Daily Use four times daily to check FSBS. In the morning prior to breakfast & 1 hour after each meal for a total of 4times daily. 1 kit 5 11/14/19 26 Active ProFe 391.3 (180 Fe) MG capsule Take 1 capsule by mouth Daily 4 Active Active Problems Problem Noted Date Diagnosed Date 28 weeks gestation of ([facility]) 2024 Third trimester ([facility]) 02/16/2025 Estimated Date of Delivery Comme nts Yes 05/05/2025 Based on last me nstrual period of 07/29/2024 (Exact Date) Encounters Date Type Department Care Team Description 03/24/2025 10:50 AM EDT Routine SHERLY MARES [address] [place] [address] Krys Ambrosio NP 34 weeks gestation of ([facility]); Third trimester ([facility]); Gestational diabetes mellitus (GDM) in third trimester, gestational diabetes method of control unspecified ([facility]) 03/24/2025 Bamboo flowsheet [facility] Sanam Frazier [facility] [place] [address] Krys Ambrosio NP 03/24/2025 Travel 03/10/2025 1:20 PM EDT Routine [facility] Sanam Frazier [facility] [place] [address] Deborah Kwan PA 32 weeks gestation of ([facility]); Third trimester ([facility]) 03/10/2025 Travel 03/10/2025 Bamboo flowsheet [facility] Sanam Frazier [facility] [place] [address] Deborah Kwan PA 02/25/2025 3:00 PM EDT Ancillary Procedure NOMMyra Frazier [facility] [place] [address] Size of fetus inconsistent with dates in second trimester ([facility]) 02/25/2025 Travel 02/16/2025 2:30 PM EDT Routine [facility] Sanam Frazier [facility] [place] [address] Deborah Kwan PA Size of fetus inconsistent with dates in second trimester ([facility]) (Primary Dx); 28 weeks gestation of ([facility]); Third trimester ([facility]) 02/16/2025 Bamboo flowsheet [facility] Sanam Frazier [facility] [place] [address] Deborah Kwan PA 02/16/2025 Travel 02/13/2025 Clinisync Result Encounter NOMS External Department Unsolicited Scooby Alvarado DO 02/02/2025 2:50 PM EDT Routine [facility] Sanam BAINGYN [address] [place] [address] Scooby Alvarado DO Second trimester ([facility]); 26 weeks gestation of ([facility]); Diabetes mellitus screening 02/02/2025 Bamboo flowsheet [facility] Sanam MENCHACAN [address] [facility] [place] [address] Scooby Alvarado DO 02/02/2025 Travel 01/26/2025 3:00 PM EDT Ancillary Procedure [facility] Sanam [place] [address] Encounter for follow-up ultrasound of anatomy ([facility]) 01/26/2025 Travel 01/01/2025 1:30 PM EDT Routine [facility] Sanam MARES [address] [place] [address] Deborah Kwan PA Second trimester ([facility]); 22 weeks gestation of ([facility]) 01/01/2025 Bamboo flowsheet [facility] Sanam MARES [address] [facility] [place] [address] Deborah Kwan PA 12/31/2024 Travel 12/30/2024 Telephone [facility] Sanam MARES [address] [place] [address] Faye Tyler MA from Last 3 Months Family History Medical [...] oz) 03/24/2025 11:04 A M EDT Height 162.6 cm (5' 4 ) 12/04/2024 10:26 AM EDT Body Mass Index 33.77 12/04/2024 10:26 AM EDT Plan of Treatment Upcoming Encounters Date Type Department Care Team (Late st Contact Info) Description 04/07/2025 1:30 PM EDT Routine NOMMyra MARES [address] [facility] [place] [phone] Deborah Kwan PA [address] [place] [address] 06/15/2025 9:50 AM EST Visit SHERLY MARES [address] [facility] [place] [address] Scooby Alvarado DO [address] [place], [place] [phone] Health Maintenance Due Date Last Done Comments Influenza Vaccine (#1) 2025 4, 04/25/2023, 04/01/2022, Additional history exists Cervical Cancer Screening 12/04/2029 HPV/Cotest 12/04/2029 Pap Smear 12/04/2029 12/04/2024 Procedures Procedure Name Priority Date/Time Associated Diagnosis Comments POCT URINALYSIS DIPSTICK Routine 03/24/2025 11:11 AM EDT Third trimester ([facility]) POCT URINALYSIS DIPSTICK Routine 03/10/2025 1:32 PM EDT 32 weeks gestation of ([facility]) Third trimester ([facility]) US OB FOLLOW UP TRANSABDOMINAL APPROACH Routine 02/25/2025 3:22 PM EDT Size of fetus inconsistent with dates in second trimester ([facility]) ALL CBC WITH AUTO DIFF Routine 7:06 AM EDT POCT URINALYSIS DIPSTICK Routine 02/02/2025 3:06 PM EDT Second trimester ([facility]) US OB LIMITED 1+ FETUSES Routine 01/26/2025 3:47 PM EDT Encounter for follow-up ultrasound of anatomy ([facility]) POCT URINALYSIS DIPSTICK Routine 01/01/2025 1:38 PM EDT Second trimester ([facility]) PAP SMEAR Routine 12/04/2024 12:00 AM EDT from Last 3 Months or Most Recently Relevant to Health Maintenance Results * (ABNORMAL) POCT urinalysis dipstick manually resulted (03/24/2025 11:11 AM EDT) Only the most recent of4 resultswithin the time period is included. Color, UA Yellow Clarity, UA Clear Glucose, UA Negative Negative - 2000(110) ++++ mg/dL Bilirubin, UA Negative Negative - 4(70) +++ mg/dL Ketones, UA Negative Negative - 160(16) ++++ mg/dL Spec Grav, UA 1.020 1 - 1.03 Blood, UA Negative Negative - 50 Celestino/mcL pH, UA 6.0 5 - 9 Protein, UA Trace Negative - 2000(20) ++++ mg/dL Urobilinogen, UA 2.0 0.2 - 12 mg/dL Leukocytes, UA Trace Negative - 500+++ Dodie/mcL Nitrite, UA Negative Negative - Positive Urine 03/24/2025 11:1 1 AM EDT Krys Ambrosio NP POINT OF CARE TEST ENTER/EDIT ORDERABLES Final Result * US OB follow up transabdominal approach (02/25/2025 3:22 PM EDT) Anatomical Region Laterality Modality Body Ultrasound 02/25/2025 3:47 PM EDT Impressions 02/26/2025 7:33 AM EDT 1. Single, live intrauterine , current sonographic age of 29 weeks and 4 days, with an estimated date of delivery of May 02, 2025 2. Comparison made with prior examination of December 19, 2024, delivery at that time was May 11, 2025. * Estimated Weight (g) by Percentile is based upon an accurate estimated age based on last menstrual period. TRANSCRIBED BY: ELECTRONICALLY SIGNED BY: MD Barbara Saavedra 02/26/2025 7:33 AM EDT FINDINGS: A single, live intrauterine is present with normal cardiac rate of 157 beats per minute. Normal activity and amniotic fluid volume. Amniotic fluid index is 15.0 cm. Morphology is grossly normal. The current sonographic age is 29 weeks and 4 days, based on the following measurements: BPD 7.3 cm ( 29 weeks, 3 days) Head Circumference 26.9 cm ( 29weeks, 2 days) Abdominal Circumference 24.9cm (29 weeks 1 days) Femur Length 5.5cm ( 28 weeks, 6 days) Presentation Cephalic Placenta Weight (g) by Percentile 10.3% * These measurements result in an estimated date of delivery of May 12, 2025 The current estimated weight is 1331 grams (2 pound, 15 ounces). Procedure Note Logan Caal MD - 02/26/2025 FINDINGS: A single, live intrauterine is present with normal cardiacrate of 157 beats per minute. Normal activity and amniotic fluidvolume. Amniotic fluid index is 15.0 cm. Morphology is grossly normal.The current sonographic age is 29 weeks and 4 days, based on thefollowing measurements: BPD 7.3 cm ( 29 weeks, 3 days) Head Circumference 26.9 cm ( 29weeks, 2 days) Abdominal Circumference 24.9cm (29 weeks 1 days) Femur Length 5.5cm ( 28 weeks, 6 days) Presentation Cephalic Placenta Weight (g) by Percentile 10.3% * These measurements result in an estimated date of delivery of 2024 The current estimated weight is 1331 grams (2 pound,15 ounces). IMPRESSION: 1. Single, live intrauterine , current sonographic age of 29weeks and 4 days, with an estimated date of delivery of April 2. Comparison made with prior examination of December 19, 2024, delivery atthat time was May 11, 2025. * Estimated Weight (g) by Percentile is based upon an accurateestimated age based on last menstrual period. TRANSCRIBED BY: ELECTRONICALLY SIGNED BY: Logan Caal MD us Deborah RUBIN IMG OB US PROCEDURES Final Resul t * (ABNORMAL) ALL CBC WITH AUTO DIFF (02/13/2025 7:06 AM EDT) TBH WBC 9.7 4.0 - 11.0 10 3/uL TBH TBH RBC 4.18(L) 4.20 - 5.40 10 6/uL TBH TBH HGB 10.6(L) 12.0 - 16.0 g/dL TBH TBH HCT 33.1(L) 36.0 - 48.0 % TBH TBH MCV 79.2(L) 81.0 - 99.0 fL TBH TBH MCH 25.4(L) 26.7 - 34.0 pg TBH TBH MCHC 32.0 29.9 - 35.2 g/dL TBH TBH RDW 15.0 11.0 - 15.0 % TBH TBH PLT 279 150 - 450 10 3/uL TBH TBH MPV 10.0 9.5 - 13.5 fL TBH NEUTROPHILS PERCENT AUTO 58.1 43.0 - 75.0 % TBH LYMPHOCYTES PERCENT AUTO 31.1 20.5 - 60.0 % TBH MONOCYTES PERCENT AUTO 8.4 1.7 - 12.0 % TBH TBH EO % 1.5 0.9 - 7.0 % TBH BASOPHILS PERCENT AUTO 0.4 0.2 - 2.0 % TBH IMMATURE GRANULOCYTES PCT AUTO 0.5 0.0 - 0.5 % TBH NEUTROPHILS ABSOLUTE AUTO 5.7 1.4 - 6.5 10 3/uL TBH LYMPHOCYTES ABSOLUTE AUTO 3.0 1.2 - 3.8 10 3/uL TBH MONOCYTES ABSOLUTE AUTO 0.8 0.3 - 0.8 10 3/uL TBH TBH EO # 0.2 0.0 - 0.7 10 3/uL TBH BASOPHILS ABSOLUTE AUTO 0.0 0.0 - 0.1 10 3/uL TBH IMMATURE GRANULOCYTES ABS AUTO 0.05(H) 0.00 - 0.03 10 3/uL TBH 02/13/2025 7:06 AM EDT 02/13/2025 7:06 AM EDT Narrative [facility] - 02/13/2025 7:22 AM EDT us Scooby Jenny DO [facility] Final Result [facility] * US OB limited 1+ fetuses (01/26/2025 3:47 PM EDT) Anatomical Region Laterality Modality Body Ultrasound 01/27/2025 1:41 PM EDT Impressions 01/27/2025 1:44 PM EDT Normal cardiac and outflow tract anatomy. TRANSCRIBED BY: ELECTRONICALLY SIGNED BY: Logan Caal MD Narrative 01/27/2025 1:44 PM EDT FINDINGS: Single viable intrauterine , breech presentation with normal cardiac and activity, 15 0 bpm. Age appropriate, normal visualization of the left ventricular and right ventricular outflow tracts. Procedure Note Logan Caal MD - 01/27/2025 FINDINGS: Single viable intrauterine , breech presentation with normalcardiac and activity, 15 0 bpm. Age appropriate, normalvisualization of the left ventricular and right ventricular outflowtracts. IMPRESSION: Normal cardiac and outflow tract anatomy. TRANSCRIBED BY: ELECTRONICALLY SIGNED BY: Logan Caal MD us Scooby Jenny DO IMG OB US PROCEDURES Final Resul t * Pap Smear (12/04/2024 12:00 AM EDT) Swab Cervical swab / Unknown us Scooby Jenny DO LAB CYTOLOGY ORDERABLES Final Re sult EXTERNAL LAB from Last 3 Months or Most Recently Relevant to Health Maintenance Insurance [facility] MEDICAID [place]
--- OUTSIDE RECORDS SUMMARY | 2025-03-27 14:02 | XMS_ITS | Encounter Summary ---
Author Organization [facility] [employer] [facility] tem Address [id number] [address] [place] [address] Care Team Providers Care Quality Nurse Name Role Phone No Pcp, No Pcp Primary Care Provider Unavailabl e Encounter Details Date Type Department Care Team (Late st Contact Info) Description 11/19/2024 Abstract Maternal- Medicine at [facility] [address] [place] [phone] Provider, Generic External Data Social History Tobacco [...] ORDERABLES Final Re sult Performing Organization Address City/[facility]/ZIP Co de Phone Number MANUALLY TRANSCRIBED RESULTS * CBC without diff (11/11/2024) Hemoglobin 11.8 MANUALLY TRANSCRIBED RESULTS Hematocrit 35.7 MANUALLY TRANSCRIBED RESULTS Rbc Mcv (Fl) By Automated Count 84.0 MANUALLY TRANSCRIBED RESULTS Platelets 284 MANUALLY TRANSCRIBED RESULTS Blood Venous blood / Unknown us Not In System Ref Prov LAB BLOOD ORDERABLES Rachael l Result Performing Organization Address City/[facility] Co de Phone Number MANUALLY TRANSCRIBED RESULTS * HIV 1&2 AB/AG Screen (P24 AG) (11/11/2024) HIV 1&2 AB/AG non reactive MAN UALLY TRANSCRIBED RESULTS Blood Venous blood / Unknown us Not In System Ref Prov LAB BLOOD ORDERABLES Rachael l Result Performing Organization Address [facility] Co de Phone Number MANUALLY TRANSCRIBED RESULTS * Type and screen (11/11/2024) Abo/Rh(D) A Positive MANUALLY TRANSCRIBED RESULTS Antibody Screen negative MANUALLY TRANSCRIBED RESULTS Blood Venous blood / Unknown us Not In System Ref Prov BLOOD BANK TEST ORDERABLE S Final Result Performing Organization Address [facility] Co de Phone Number MANUALLY TRANSCRIBED RESULTS * Rubella IGG immune status (11/11/2024) Rubella immune IgG non immune MANUALLY TRANSCRIBED RESULTS Blood Venous blood / Unknown us Not In System Ref Prov LAB BLOOD ORDERABLES Rachael l Result Performing Organization Address City/[facility] Co de Phone Number MANUALLY TRANSCRIBED [...] ORDERABLES Final Resu lt Performing Organization Address City/[facility]/ZIP Co de Phone Number MANUALLY TRANSCRIBED RESULTS * Basic Metabolic Panel (11/11/2024) Glucose 126 mg/dL MANUALLY TRANSCRIBED RESULTS Blood Venous blood / Unknown us Scooby R Jenny DO LAB BLOOD ORDERABLES Final Resu lt Performing Organization Address [facility] Co de Phone Number MANUALLY TRANSCRIBED RESULTS documented in this encounter Visit Diagnoses Not on filedocumented in this encounter Care Teams Quality Nurse Relationship Specialty Start Date End Date No Pcp, [place] [id number] PCP - General Family Medicine 12/19/23 documented as of this encounter
--- OUTSIDE RECORDS SUMMARY | 2025-03-27 14:02 | XMS_ITS | Encounter Summary ---
Author Organization [facility] Address [address] [place] [address] Care Team Providers Care Photographic Colorist Name Role Phone Unavailable Primary Care Provider Unavailabl e Encounter Details Date Type Department Care Team (Latest Contact Info) Description 03/24/2025 Travel Social History Tobacco Use Types Packs/Day [...] Info) Description 04/07/2025 1:30 PM EDT Routine NOMMarlene MARES [address] [facility] [place] [address] Deborah Kwan PA [address] [place], [place] [address] 06/15/2025 9:50 AM EST Visit SHERLY MARES [address] [place] [address] Scooby Alvarado DO [address] [facility] [address] [place], [facility]11 documented as of this encounter Visit Diagnoses Not on filedocumented in this encounter
--- OUTSIDE RECORDS SUMMARY | 2025-03-27 14:02 | XMS_ITS | Encounter Summary ---
Author Organization [facility] [facility] tem Address [id number] [address] [place] [address] Care Team Providers Care Catechist Name Role Phone No Pcp, No Pcp Primary Care Provider Unavailabl e Encounter Details Date Type Department Care Team (Late st Contact Info) Description 03/20/2025 Telephone Maternal- Medicine at [facility] [address] [place] [address] Amanda Putnam LD Social History Tobacco Use Types Packs/Day Years [...] Miscellaneous Notes * Telephone Encounter - BEL Navarro - 03/20/2025 12:55 PM EDT Called patient and had to leave a voicemail. We haven't received any blood sugar logs for 4 weeks. Asked her to please send them to us or to call with questions. Left RD phone number. documented in this encounter Plan of Treatment Not on file documented as of this encounter Visit Diagnoses Not on filedocumented in this encounter Care Teams Catechist Relationship Specialty Start Date End Date No Pcp, [place] [id number] PCP - General Family Medicine 12/19/23 documented as of this encounter
--- OUTSIDE RECORDS SUMMARY | 2025-03-27 14:02 | XMS_ITS | Encounter Summary ---
[facility] Address [id number] [address] [place] [address] Care Team Providers Care Robotics Technologist Name Role Phone No Pcp, No Pcp Primary Care Provider Unavailabl e Encounter Details Date Type Department Care Team (Late st Contact Info) Description 11/19/2024 Orders Only Maternal- Medicine at [facility] [address] [place] [address] Ref Prov, [place] [address] Social History Tobacco Use Types Packs/Day Years [...] 4:13 PM EDT) Anatomical Region Laterality Modality OB-PHYSICAL THER Ultrasound us Not In System Ref Prov IMG US ORDERABLES Final R esult documented in this encounter Visit Diagnoses Not on filedocumented in this encounter Care Teams Robotics Technologist Relationship Specialty Start Date End Date No Pcp, [place] [id number] PCP - General Family Medicine 12/19/23 documented as of this encounter
--- OUTSIDE RECORDS SUMMARY | 2025-03-27 14:02 | XMS_ITS | Encounter Summary ---
Author Organization [facility] Address [address] [facility] [address] Care Team Providers Care Actuarial Clerk Name Role Phone Unavailable Primary Care Provider Unavailabl e Encounter Details Date Type Department Care Team (Late Contact Info) Description 11/13/2024 Abstract NOMMyra MARES [address] [place] [place] [address] Scooby Alvarado DO [address] [facility] [address] [place], [place] [address] Social History Tobacco Use Types Packs/Day Years [...] 1:30 PM EDT Routine SHERLY MARES [address] [place] [place] [address] Deborah Kwan PA [address] [facility] [address] [place], [place] [id number] 06/15/2025 9:50 AM EST Visit [facility] Sanam MARES [address] [place] [place] [address] Scooby Alvarado DO [address] [place] [address] Dr [place], [place] [phone] documented as of this encounter Visit Diagnoses Not on filedocumented in this encounter
--- OUTSIDE RECORDS SUMMARY | 2025-03-27 14:02 | XMS_ITS | Patient Health Record ---
Author Organization [facility] [employer] [facility] vices Address [address] [place], [place] [id number] Care Team Providers Care Fish Worm Grower Name Role Phone Pako Mays Unavailable [phone] HuangNajma eddy Unavailable [phone] Allergies No Known Allergies Reason For Referral No Information Medications Medication SIG (Take, Route, Frequency, Duration) Notes Start Date End Date Status Dicyclomine HCl 20 MG 1 tablet Orally Th ree times a day; Duration: 30 day(s) as needed 09/05/2021 Not-Taking Pantoprazole Sodium 40 MG 1 tablet Orally Once a day; Duration: 30 day(s) as needed 09/05/2021 Not-Taking Social [...] data 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 Stress is when someone feels tense, nervous, anxious, or can't sleep at night because their mind is troubled Not at all patient entered data In the past year have you sp ent more than 2 nights in a row in a alf, alf, jail center, or juvenile correctional facility? No patient [...] Problem Status W/U Status Risk Notes Problem Irritable bowel syndrome with diarrhea (034544878) Irritable bowel syndrome with diarrhea (K58.0) Active confirmed Problem Obese class I (186167984098816 ) BMI 33.0-33.9,adul t (Z68.33) Active confirmed Problem BMI 30+ - obesity (859708928) BMI 32.0-32.9,adul t (Z68.32) Active confirmed Problem Body mass index 30.00 to 34.99 (354572899319688 ) BMI 31.0-31.9,adul t (Z68.31) Active confirmed Problem Venereal disease screening (963411413) Screening for STD (sexually transmitted disease) (Z11.3) Active confirmed Problem Irritable bowel syndrome (24884027) IBS (irritable bowel syndrome) (K58.9) Active confirmed [...] third trimester ., Problem Urine test negative (020054710) Encounter for test with result negative (V72.41) (V72.41) Active confirmed Problem Depression screening (512948554) Screening for depression (Z13.31) Active confirmed Description:Dep r ession screen Problem Removal of suture (87406604) Visit for suture removal (Z48.02) Active confirmed Comment:Sutures removed. Area cleansed with alcohol. Area was bandaged. Pt. advised to RTO for signs/ symptoms of infection including erythema, warmth, discharge from wound, fever or chills., Problem Sboie-ekf-ojkkq without malnutrition (598975192) Small for gestational age (764.00) (764.00) Active confirmed Problem Insertion of intrauterine contraceptive device (20337194) Encounter for IUD insertion (Z30.430) Active confirmed Comment:uterus retroverted, speculum inserted, cervix swabbed with betadine, single toothed tenaculum applied to anterior lip of cervix, uterus sounded to 8 cm, IUD placed without difficulty, strings cut 2 cm from os, good hemostasis noted, pt tolerated procedure well., Problem Janeth onychomycosis (B37.2) Active confirmed Description:Can d idiasis of nails Problem Upper respiratory infection (50761173) URI (upper respiratory infection) (J06.9) Active confirmed Comment:alyssa faith observe. otc supp therapy. f/u if sxs got worse,Story:she had sore throat o the last t wo days.no f c n v. she took supportive therapu. wet to Er got some meds., Problem Urinary tract infection in (469965630) UTI in (O23.40) Active confirmed Comment:pt on antibiotics, Problem Diarrhea (09044974) Diarrhea (R19.7) Active confirmed Problem Mass of lower limb (227930858) Mass of right lower leg (R22.41) Active confirmed Problem Poor weight gain of (646.80) (646.80) Active confirmed Comment:discusse d increase po intake, insufficient weight gain can lead to SGA, IUGR. Monitor weight. will order growth ultrasound, Problem Gynecologic examination (08941295) Visit for gynecologic examination (Z01.419) Active confirmed Comment:last pap 10/01/2012 - neg, hpv neg encouraged self breast exams, Problem Injury (019870034) Contusion of soft tissue (T14.8) Active confirmed Comment:REFER t o Orthopedic surgery - In [place] on [address], Problem Normal (53946725) SUPERVISION, OTHER NORMAL (V22.1) (V22.1) Active confirmed Problem Dyspepsia (291552176) Dyspepsia (R10.13) Active confirmed Problem Abnormal glucose tolerance in mother complicating , childbirth AND/OR puerperium (32055942) Abnormal glucose tolerance in mother complicating (648.80) (648.80) Active confirmed Comment:1 hr GT T - 165, 3 hr normal, Problem Contraceptive intrauterine device check (474410800) IUD check up (Z30.431) Active confirmed Comment:strings trimmed as partner feels it during intercourse, discussed risks if trim too short of migration, Problem Asymptomatic bacteriuria in (18847253) Asymptomatic bacteriuria in (O23.40) Active confirmed Problem Breast lump (44950685) Breast mass seen on mammogram (N63.0) Active confirmed Problem Delivery normal (13943191) Delivery normal (O80) Active confirmed Comment:Pregnanc y ended in chart. eds 09/21 had menses, has not resumed intercourse breast feeding desires ocp, Problem Poor growth affecting management (962450492) Small for gestational age fetus affecting mother, antepartum (O36.5990) Active confirmed Problem Normal (71890177) Encounter for supervision of normal (Z34.90) Active [...] wks , male, 8lb2oz, 2010 , @ [facility]. PMH : obesity PSH: denies PGYN: denies Meds: PNV NKDA Sochx: neg x 3., Problem IUGR - Intrauterine growth retardation (33724065) IUGR (intrauterine growth restriction) (764.90) Active confirmed Comment:US done 03/31/13 baby was 33.4 weeks 5lbs 12 oz, 4%ile, megha normal discussed findings with pt, started antepartum testing. Umbilical artery dopplers normal pt complaints of decreased movement, will induce today, Problem Ovarian cyst complicating , antepartum (O34.80) Active confirmed Comment:4.7x2.8 x 3.3 cm on right ovary, Problem Contraception care education (683670223) Family planning advice (Z30.09) Active confirmed Comment:pt late for depo window, preg test negative, received depo today discussed importance of compliance,Descr iption:CONTRACEP TIVE COUNSELING NEC Problem Breast lump (40694748) Left breast lump (611.72) (611.72) Active confirmed Comment:Instruc t ed to use all medication as prescribed, obtain diagnostic mammogram, return after mammogram is preformed or sooner as needed is symptoms worsen or do not get better. Patient verbalizes and agrees with plan of care., Problem Oligohydramnios (70981527) Decreased amniotic fluid (O41.00X0) Active confirmed Comment:pt to go to hospital for IV fluid hydration, repeat megha 11.1. Pt to have repeat megha on following sunday 10.7, normal bladder. measuring S< D, will order growth and megha,Description: Oligohydramnios Problem Breast lump (98423640) Breast mass in female (N63.0) Active confirmed [...] monitor with self breast exams, Problem Cellulitis (440040824) Cellulitis and abscess (L03.90) Active confirmed Problem Cyst of graafian follicle (9868399) Cyst of Graafian follicle (N83.00) 2008 Problem resolved confirmed Description:Foll icular cyst of ovary Problem Acute streptococcal pharyngitis (9340022258) Acute streptococcal pharyngitis (J02.0) 2009 Problem resolved confirmed Description:Stre ptococcal sore throat Problem Left lower quadrant pain (044121231) Abdominal pain, left lower quadrant (789.04) (789.04) 2008 Problem resolved confirmed Problem Dysmenorrhea (989360864) Adolescent dysmenorrhea (N94.6) 2007 Problem resolved confirmed Description:Dysm enorrhea Problem General examination of patient (994577013) Routine general medical examination at a health care facility (V70.0) (V70.0) 2007 Problem resolved confirmed Problem Polycystic bilateral ovaries (disorder) (052274393) Bilateral polycystic ovarian syndrome (E28.2) 2008 Problem resolved confirmed Description:Poly cystic ovaries Problem Sinusitis, acute (461.) (461) 2008 Problem resolved confirmed Problem Urinary tract infectious disease (56259302) Infection of urinary tract (N39.0) 2009 Problem resolved confirmed Description:Urin emily tract infection Problem Obesity (disorder) (481083219) Overweight and obesity (E66.3) 2007 Problem resolved confirmed Problem Cyst of ovary (12685433) Cyst of ovary (N83.20) 2008 Problem resolved confirmed Description:Ovar jean cyst Vital Signs Heart Rate 80 /min 03/27/2025 Blood pressure diastolic 78 mm Hg 03/27/2025 Height-cm 162.56 cm 03/27/2025 Weight-kg 88 kg 03/27/2025 Height 64.00 in 03/27/2025 Blood pressure systolic 149 mm Hg 03/27/2025 Weight 194 lbs 03/27/2025 BMI 33.3 kg/m2 03/27/2025 Encounters Encounter Location Date Provider Diagnosis [facility] [address] [place] [address] [id number] 07/16/2024 Pako Mays BMI 32.0-32.9,adul t Z68.32 ; Dietary counseling Z71.3 ; Exercise counseling Z71.82 ; Encounter for screening for dental disorders Z13.84 and Encounter for dental examination and cleaning without abnormal findings Z01.20 [facility] [address] [place] [address] [id number] 09/02/2024 Pako Mays Encounter for dent al examination and cleaning without abnormal findings Z01.20 and Obesity, Class I, BMI 30-34.9 E66.811 [facility] [address] [place] [address] [id number] 03/27/2025 Najma Huang BMI 33.0-33.9,adul t Z68.33 and Encounter for dental examination and cleaning without abnormal findings Z01.20 Assessments Encounter Date Diagnosis (ICD Code) Assessment Notes Treatment Notes Treatment Clinical Notes Section Notes 07/16/2024 BMI 32.0-32.9,adult (ICD-10 - Z68.32) 09/02/2024 Encounter for dental examination and cleaning without abnormal findings (ICD-10 - Z01.20) 09/02/2024 Obesity, Class I, BMI 30-34.9 (ICD-10 - E66.811) 03/27/2025 BMI 33.0-33.9,adult (ICD-10 - Z68.33) 03/27/2025 Encounter for dental examination and cleaning without abnormal findings (ICD-10 - Z01.20) 07/16/2024 Dietary counseling (ICD-10 - Z71.3) 07/16/2024 Exercise counseling (ICD-10 - Z71.82) 07/16/2024 Encounter for screening for dental disorders (ICD-10 - Z13.84) 07/16/2024 Encounter for dental examination and cleaning without abnormal findings (ICD-10 - Z01.20) Plan Of Treatment Next Appt Details Provider Name:Najma gimenez, 10/02/2025 11:15:00 AM, [address] [place] [address], [phone], Insurance Providers Payer Name Payer Address Payer Phone Subscriber Number Group Number Insured Name Patient Relationship to Insured Coverage Start Date Coverage End Date [employer] [address] [address] [place], [place] [id number] Zac Mosqueda Spouse - patient is the spouse of the insured [facility] [address] [address] [place] [address] [id number] Paris Mosqueda Self - patient is the insured [facility] [place] [address] [place], [place] [id number] Paris Mosqueda Self - patient is the insured Medical (General) History Medical History History ICD [...]
--- OUTSIDE RECORDS SUMMARY | 2025-03-27 14:06 | XMS_ITS | CCD ---
Author Organization [facility] CliniSyor Care Team Providers Care Film Painter Name Role Phone RENAY OTOOLE Attending Unavailable [...] RENAY Attending Unavailable SYDNIE, RENAY Admitting Unavailable ZIEBHARSHA, DR ANGELO Vaz Consulting Unavailable REQUEST, DR NONE LISTED Primary Care Unavaila ble SYDNIE, RENAY Consulting Unavailable MELLYANDER, NAT Attending Unavailable HIGHLANDER, NAT Admitting Unavailable [...] RODRIGUEZ Attending Unavailable SCOOBY ALVARADO Attending Unavailable DEBORAH RODRIGUEZ Attending Unavailable DEBORAH RODRIGUEZ Referring Unavailable DEBORAH RODRIGUEZ Attending Unavailable Medications Current Medications Medication Drug Class(es) Dates Sig (Normalized) Sig (Original) Blood Glucose Monitoring Suppl (D-Care Glucometer) w/Device kit (20 sources) Start: 11-13-2024 End: 11-13-2025 Blood Glucose [...] 11/13/2024 11/13/2025 Active Ethinyl Estradiol / norgestimate (3 sources) Progestin, Estrogen Start: 05-11-2020 take 1 tablet by mouth once daily norgestimate-ethinyl estradioL (ORTHO-CYCLEN) 0.25-35 mg-mcg per tablet Indications: Encounter for contraceptive management, unspecified type Take 1 tablet by mouth daily. 56 tablet 1 05/11/2020 Active isopropyl alcohol 0.7 ml/ml medicated pad (20 sources) Start: 11-13-2024 Alcohol Swabs (Alcohol Prep Pad) 70 % pads Indications: Gestational diabetes mellitus (GDM), antepartum, gestational diabetes method of control unspecified (HHS-HCC) , Elevated glucose tolerance test Apply 1 Pad topically Daily Use four times daily to check FSBS. 150 each 3 11/13/2024 Active polysaccharide iron complex 391 mg oral capsule (13 sources) Start: 02-04-2024 take 1 capsule by mouth once daily ProFe 391.3 (180 Fe) MG capsule Take 1 capsule by mouth Daily 02/04/2024 Active Juxmeyve-Bfc-Bn-FA ( 1 + IRON PO) (20 sources) Wmbvrojc-Ngh-Bg-FA ( 1 + IRON PO) Take by [...] tolerance complicating ; childbirth; or the puerperium (8 sources) Gestational diabetes mellitus, class A>1<; Translations: [...] COMP UNS TRIMESTER] Onset: 06-08-2021 Chronic Other complications of (2 sources) size does not accord with dates; Translations: [Uterine size-date discrepancy, second trimester] 02-16-2025 Episodic Other female genital disorders (1 source) Vaginal [...] [26 weeks gestation of ] 02-02-2025 Episodic Residual codes; unclassified (10 sources) Gestation period, 28 weeks; Translations: [28 weeks gestation of ] Onset: 02-16-2025 02-16-2025 Episodic Residual codes; unclassified (2 sources) Gestation period, 32 weeks; Translations: [32 weeks gestation of ] 03-10-2025 Episodic Residual codes; unclassified (2 sources) Gestation period, 34 weeks; Translations: [34 weeks gestation of ] 03-24-2025 Episodic Spondylosis; intervertebral disc disorders; other back [...] not applicable or unspecified; Translations: [MAT CARE OT VT FTL GRTH 3RD TM UNS] Onset: 08-08-2021 [...] GESTATION OF ] Onset: 03-21-2021 Episodic Spontaneous (4 sources) Complete or unspecified spontaneous without complication; Translations: [Miscarriage] Onset: 12-20-2023 12-20-2023 Episodic Results Test Name Value Interpretation Reference Range Facility Urinalysis macro (dipstick) panel (U)on 03-24-2025 Bilirubin, UA Negative Negative - 4(70) +++ mg/dL [facility] Blood, UA Negative Negative - 50 Celestino/mcL [facility] Clarity, UA Clear [facility] Color, UA Yellow [facility] Glucose, UA Negative Negative - 1999(110) ++++ mg/dL [facility] Interpretation and review of laboratory results Abnormal [facility] Ketones, UA Negative Negative - 160(16) ++++ mg/dL [facility] Leukocytes, UA Trace Negative - 500+++ Dodie/mcL [facility] Nitrite, UA Negative Negative - Positive [facility] pH, UA 6 5 - 9 [facility] Protein, UA Trace Negative - 1999(20) ++++ mg/dL [facility] Spec Grav, UA 1.02 1 - 1.03 [facility] Urobilinogen, UA 2.0 0.2 - 12 mg/dL [facility] Urinalysis macro (dipstick) panel (U)on 03-10-2025 Bilirubin, UA Positive Negative - 4(70) +++ mg/dL [facility] Blood, UA Positive Negative - 50 Celestino/mcL [facility] Clarity, UA Clear [facility] re Color, UA Renita [facility] Glucose, UA Negative Negative - 1999(110) ++++ mg/dL [facility] Interpretation and review of laboratory results Abnormal [facility] Ketones, UA Positive Negative - 160(16) ++++ mg/dL [facility] Leukocytes, UA Positive Negative - 500+++ Dodie/mcL [facility] Nitrite, UA Negative Negative - Positive [facility] pH, UA 6 5 - 9 [facility] Protein, UA Positive Negative - 1999(20) ++++ mg/dL [facility] Spec Grav, UA 1.03 1 - 1.03 [facility] Urobilinogen, UA 1.0 0.2 - 12 mg/dL [facility] US OB FOLLOW UP TRANSABDOMIN AL APPROACHon 02-25-2025 US OB FOLLOW UP TRANSABDOMINAL APPROACH FINDINGS: A single, live intrauterine is present [...] is 1331 grams (2 pound, 15 ounces). IMPRESSION: 1. Single, live intrauterine , [...] Comment on above: Order Comment: US OB SCAN FOR GROWTH Estimated Date of Delivery: 05/05/25 Gestational Age as of 02/16/2025: 28w6d ALL CBC WITH AUTO DIFFon BASOPHILS ABSOLUTE AUTO 0 N [facility] Basophils/100 WBC (Bld) 0.4 % 0.2 - 2.0 % [facility] Eosinophils/100 WBC (Bld) 1.5 % 0.9 - 7.0 % [facility] Erythrocyte distribution width (RBC) [Ratio] 15 % 11.0 - 15.0 % [facility] Hematocrit (Bld) [Volume fraction] 33.1 % Low 36.0 - 48.0 % [facility] Hemoglobin (Bld) [Mass/Vol] 10.6 g/dL Low 12.0 - 16.0 g/dL [facility] IMMATURE GRANULOCYTES ABS AUTO 0.[address] [facility] Immature granulocytes/100 WBC (Bld) 0.5 % 0.0 - 0.5 % [facility] Interpretation and review of laboratory results Abnormal [facility] LYMPHOCYTES ABSOLUTE AUTO 3 [facility] Lymphocytes/100 WBC (Bld) 31.1 % 20.5 - 60.0 % [facility] MCH (RBC) [Entitic mass] 25.4 pg Low 26.7 - 34.[address] [facility] MCHC (RBC) [Mass/Vol] 32 g/dL 29.9 - 35.2 g/dL [facility] MCV (RBC) [Entitic vol] 79.2 fL Low 81.0 - 99.[address] [facility] MONOCYTES ABSOLUTE AUTO 0.8 N [facility] Monocytes/100 WBC (Bld) 8.4 % 1.7 - 12.0 % [facility] NEUTROPHILS ABSOLUTE AUTO 5.7 [facility] Neutrophils/100 WBC (Bld) 58.1 % 43.0 - 75.0 % [facility] Platelet mean volume (Bld) [Entitic vol] 10 fL 9.5 - 13.[address] [facility] TBH EO # 0.2 [facility] e TB PLT 279 [facility] TB RBC 4.18 Low [facility] TBH WBC 9.7 [facility] Urinalysis macro (dipstick) panel (U)on 02-02-2025 Bilirubin, UA Negative Negative - 4(70) +++ mg/dL [facility] Blood, UA Negative Negative - 50 Celestino/mcL [facility] Clarity, UA Clear [facility] re Color, UA Yellow [facility] e Glucose, UA Negative Negative - 1999(110) ++++ mg/dL [facility] Interpretation and review of laboratory results Abnormal [facility] Ketones, UA Positive Negative - 160(16) ++++ mg/dL [facility] Comment on above: Trace Leukocytes, UA Positive Negative - 500+++ Dodie/mcL [facility] Comment on above: Small Nitrite, UA Negative Negative - Positive [facility] pH, UA 6 5 - 9 [facility] e Protein, UA Trace Negative - 1999(20) ++++ mg/dL [facility] Spec Grav, UA 1.03 1 - 1.03 [facility] Urobilinogen, UA 0.2 0.2 - 12 mg/dL [facility] US OB LIMITED 1+ FETUSESon 0 01-26-2025 US OB LIMITED 1+ FETUSES FINDINGS: Single viable intrauterine , breech presentation with normal cardiac and activity, 15 0 bpm. Age appropriate, normal visualization of the left ventricular and right ventricular outflow tracts. IMPRESSION: Normal cardiac and outflow tract anatomy. TRANSCRIBED BY: ELECTRONICALLY SIGNED BY: Logan Caal MD Normal Not Available Comment on above: Order Comment: US OB INCOMPLETE ANATOMY Estimated Date of Delivery: 05/05/25 Gestational Age as of 12/30/2024: 22w0d Urinalysis macro (dipstick) panel (U)on 01-01-2025 Bilirubin, UA Negative Negative - 4(70) +++ mg/dL [facility] Blood, UA Negative Negative - 50 Celestino/mcL [facility] Clarity, UA Clear [facility] Color, UA Yellow [facility] Glucose, UA Negative Negative - 1999(110) ++++ mg/dL [facility] Interpretation and review of laboratory results Normal [facility] Ketones, UA Negative Negative - 160(16) ++++ mg/dL [facility] Leukocytes, UA Negative Negative - 500+++ Dodie/mcL [facility] Nitrite, UA Negative Negative - Positive [facility] pH, UA 7 5 - 9 [facility] [employer] e Protein, UA Trace Negative - 1999(20) ++++ mg/dL [facility] Spec Grav, UA 1.025 1 - 1.03 [facility] Urobilinogen, UA 0.2 0.2 - 12 mg/dL [facility] No Panel InformationOrdered By: Radiologist Radiology on 12-19-2024 [facility] Work Phone: No Panel Informationon 12-19 Radiology Study observation (narrative) [facility] US OB ANATOMYon 12-19-[address] [address] Ultrasound Report Signed Patient: PARIS MOSQUEDA MR#: [id number] : 1990 Acct:[id number] Age/Sex: 34 / F ADM Date: 12/19/24 Loc: US Attending Dr: Scooby Alvarado D.O. Ordering Physician: Scooby Alvarado D.O. Date of Service: 12/19/24 Procedure(s): US OB anatomy Accession Number(s): [id number] cc: [facility] ; Scooby Alvarado D.O. [place] [id number] Patient Name: PARIS MOSQUEDA MRN: [facility]:[id number] date: 1990 Sex: F Assigned Patient Location: US Current Patient Location: US Accession/Order Number: [id number] Exam Date: 12/19/2024 11:33 Report Date: 12/19/2024 [...] Evangelista M.D. 12/19/2024 11:39 AM Dictation Location: [place] [address] Electronically authenticated by: [id number] Y Date: 12/19/2024 11:39 Dictated By: Sarita Evangelista M.D. Signed By: 12/19/24 1142 DD/ 1139 TD/TT: Systems Design Engineer: [facility] Radiology, Radiologist, MD - 12/19/2024 [place] [address] Ultrasound Report Signed Patient: PARIS MOSQUEDA MR#: [id number] : 1990 Acct:[id number] Age/Sex: 34 / F ADM Date: 12/19/24 Loc: US Attending Dr: Scooby Alvarado D.O. Ordering Physician: Scooby Alvarado D.O. Date of Service: 12/19/24 Procedure(s): US OB anatomy Accession Number(s): [id number] cc: [facility] ; Scooby Alvarado D.O. The [address] [address] Patient Name: PARIS MOSQUEDA MRN: [facility]:[id number] date: 1990 Sex: F Assigned Patient Location: US Current Patient Location: US Accession/Order Number: [id number] Exam Date: 12/19/2024 11:33 Report Date: 12/19/2024 [...] Evangelista M.D. 12/19/2024 11:39 AM Dictation Location: [place] [address] Electronically authenticated by: [id number] Y Date: 12/19/2024 11:39 Dictated By: Sarita Evangelista M.D. Signed By: 12/19/24 1142 DD/ 1139 TD/TT: Systems Design Engineer: [facility] OB CERVICAL LENGTHon 11-24 [place] [address] Ultrasound Report Signed Patient: PARIS MOSQUEDA MR#: [id number] : 1990 Acct:[id number] Age/Sex: 34 / F ADM Date: 12/19/24 Loc: US Attending Dr: Scooby Alvarado D.O. Ordering Physician: Scooby Alvarado D.O. Date of Service: 12/19/24 Procedure(s): US OB cervical length Accession Number(s): [id number] cc: [facility] ; Scooby Alvarado D.O. [address] [address] Patient Name: PARIS MOSQUEDA MRN: [id number]:[id number] date: 1990 Sex: F Assigned Patient Location: Current Patient Location: US Accession/Order Number: [id number] Exam Date: 12/19/2024 11:33 Report Date: 12/19/2024 [...] Evangelista M.D. 12/19/2024 11:39 AM Dictation Location: [place] [address] Electronically authenticated by: [id number] Y Date: 12/19/2024 11:39 Dictated By: Sarita Evangelista M.D. Signed By: 12/19/24 1142 DD/ 1139 TD/TT: Systems Design Engineer: [facility] Radiology, Radiologist, - 12/19/[address] [address] Ultrasound Report Signed Patient: PARIS MOSQUEDA MR#: [id number] : 1990 Acct:[id number] Age/Sex: 34 / F ADM Date: 12/19/24 Loc: US Attending Dr: Scooby Alvarado D.O. Ordering Physician: Scooby Alvarado D.O. Date of Service: 12/19/24 Procedure(s): US OB cervical length Accession Number(s): [id number] cc: [facility] ; Scooby Alvarado D.O. The [address] [address] Patient Name: PARIS MOSQUEDA MRN: [facility]:[id number] date: 1990 Sex: F Assigned Patient Location: US Current Patient Location: US Accession/Order Number: [id number] Exam Date: 12/19/2024 11:33 Report Date: 12/19/2024 [...] Evangelista M.D. 12/19/2024 11:39 AM Dictation Location: [place] [address] Electronically authenticated by: [id number] Y Date: 12/19/2024 11:39 Dictated By: Sarita Evangelista M.D. Signed By: 12/19/24 1142 DD/ 1139 TD/TT: Systems Design Engineer: [facility] IGP,APTIMA HPV,AGE GDLNon AGE GDLN ACOG TESTING Note . [facility] Comment on above: TESTS RESULT FLAG UN ITS REF RANGE LAB Clinician Provided Cytology Information Source.............Vagina Other.............. No. of containers..01 ThinPrep Vial Age Algo ACOG Karine... 30-65 01 FLAG LEGEND: L-Low Normal,H-High Normal,LL-Alert Low,HH-Alert High <-Panic Low,>-Panic High,A-Abnormal,AA-Critical Abnormal Performed at: 01 =[address] [place] [address] Cindy Pinzon MD, HPV APTIMA Negative Negative [facility] Comment on above: This nucleic acid am plification test detects fourteen high- risk HPV types (16,18,31,33,35,39,45,51,52,56,58,59,66,68) without differentiation. Performed at: = - [address] [id number] [employer]: Cindy Pinzon MD, Phone: [phone] Performed at: - [address] [id number] [employer]: Cindy Pinzon MD, Phone: [phone] IGP, APTIMA HPV, RFX 16/18,[address] [facility] Comment on above: TESTS RESULT FLAG UN ITS REF RANGE LAB DIAGNOSIS: 02 NEGATIVE FOR INTRAEPITHELIAL LESION OR MALIGNANCY. Specimen adequacy: 02 Satisfactory for evaluation. No endocervical component is identified. Performed by: 02 Yanni Dela Cruz Fire Sprinkler Service Technician (ASCP) . 02 Note: Note 02 The [...] <-Panic Low,>-Panic High,A-Abnormal,AA-Critical Abnormal Performed at: 02 [address] [facility] [address] [address] Cindy Pinzon MD, SPATULA-ALONE VAGINA [facility] RECURRENT VAGINITIS (HTRX)on 12-06-2024 ATOPOBIUM VAGINAE 0 [facility] ATOPOBIUM VAGINAE Not detected [facility] BVAB 2,3 (BACTERIAL VAGINOSIS ASSOCIATED BACTERIA 2, 3); MOBILUNCUS SPP 0 [facility] BVAB 2,3 (BACTERIAL VAGINOSIS ASSOCIATED BACTERIA 2, 3); MOBILUNCUS SPP Not detected [facility] KENA ALBICANS, PARAPSILOSIS, TROPICALIS 0 [facility] KENA ALBICANS, PARAPSILOSIS, TROPICALIS Not detected [facility] KENA GLABRATA 0 [facility] Hea lthcare KENA GLABRATA Not detected [facility] KENA KRUSEI 0 [facility] KENA KRUSEI Not detected NOM Hea lthcare CHLAMYDIA TRACHOMATIS 0 [facility] S Healthcare CHLAMYDIA TRACHOMATIS Not detected N [facility] Healthcare GARDNERELLA VAGINALIS 0 [facility] GARDNERELLA VAGINALIS Not detected N S Healthcare MEGASPHAERA (TYPES 1, 2) 0 [facility] MEGASPHAERA (TYPES 1, 2) Not detected [facility] MYCOPLASMA GENITALIUM 0 [facility] MYCOPLASMA GENITALIUM Not detected [facility] NEISSERIA GONORRHOEAE 0 [facility] NEISSERIA GONORRHOEAE Not detected [facility] TRICHOMONAS VAGINALIS 0 [facility] TRICHOMONAS VAGINALIS Not detected N S Healthcare [facility] Urinalysis macro (dipstick) panel (U)on 12-04-2024 Bilirubin, UA Negative Negative - 4(70) +++ mg/dL [facility] Blood, UA Negative Negative - 50 Celestino/mcL [facility] Clarity, UA Clear [facility] re Color, UA Yellow [facility] Glucose, UA Negative Negative - 1999(110) ++++ mg/dL [facility] Interpretation and review of laboratory results Normal [facility] Ketones, UA Negative Negative - 160(16) ++++ mg/dL [facility] Leukocytes, UA Positive Negative - 500+++ Dodie/mcL [facility] Comment on above: small Nitrite, UA Negative Negative - Positive [facility] pH, UA 7 5 - 9 [facility] Protein, UA Negative Negative - 1999(20) ++++ mg/dL [facility] Spec Grav, UA 1.015 1 - 1.03 [facility] Urobilinogen, UA 0.2 0.2 - 12 mg/dL [facility] Glucose random or fasting- P OCTOrdered By: James Rader on 11-24-2024 External Glucose Fasting Or Random (Fbs) 94 [facility] Urinalysis macro (dipstick) panel (U)on 11-13-2024 Bilirubin, UA Negative Negative - 4(70) +++ mg/dL [facility] Blood, UA Negative Negative - 50 Celestino/mcL [facility] Clarity, UA Clear [facility] re Color, UA Yellow [facility] Glucose, UA Negative Negative - 1999(110) ++++ mg/dL [facility] Interpretation and review of laboratory results Abnormal [facility] Ketones, UA Negative Negative - 160(16) ++++ mg/dL [facility] Leukocytes, UA Trace Negative - 500+++ Dodie/mcL [facility] Nitrite, UA Negative Negative - Positive [facility] pH, UA 6 5 - 9 [facility] Protein, UA Negative Negative - 1999(20) ++++ mg/dL [facility] Spec Grav, UA 1.01 1 - 1.03 [facility] Urobilinogen, UA 0.2 0.2 - 12 mg/dL [facility] BOX TESTon 11-11-2024 BOX TEST SENT OUT [employer] [facility] BOX1 unity [facility] Health[facility] e BOX2 11/11/24 [facility] UNITY BOX [facility] HCG ( test) Ql (U)o n 10-16-2024 Interpretation and review of laboratory results Abnormal [facility] Preg Test, Ur Positive Negative [facility] OB TRANSVAGINALon 025 US [...] II, MD, PHD at 16-Oct-2024 11:21:08 PM [facility] Code Blue Normal Not Available Comment on above: Order [...] II, MD, PHD at 16-Oct-2024 11:21:08 PM [facility] Teleradiology IMAGING Ekaterina French MD - 10/16/2024 [...] II, MD, PHD at 16-Oct-2024 11:21:08 PM [facility] Teleradiology [facility] Radiology Study observation (narrative) [facility] US Pelvis transvaginalOrdere d By: Ekaterina French on 10-16-2024 [facility] Work Phone: Urinalysis macro (dipstick) panel (U)on 10-16-2024 Bilirubin, UA Negative Negative - 4(70) +++ mg/dL [facility] Blood, UA Negative Negative - 50 Celestino/mcL [facility] Clarity, UA Clear [facility] re Color, UA Yellow [facility] [employer] e Glucose, UA Negative Negative - 2000(110) ++++ mg/dL [facility] Interpretation and review of laboratory results Abnormal [facility] Ketones, UA Positive Negative - 160(16) ++++ mg/dL [facility] Comment on above: 80mg/dL Leukocytes, UA Positive Negative - 500+++ Dodie/mcL [facility] Comment on above: small Nitrite, UA Negative Negative - Positive [facility] pH, UA 5.5 5 - 9 [facility] [employer] e Protein, UA Positive Negative - 2000(20) ++++ mg/dL [facility] Comment on above: 30mg/dL Spec Grav, UA 1.03 1 - 1.03 [facility] Urobilinogen, UA 0.2 0.2 - 12 mg/dL [facility] HGB AND HCTon 12-21-2023 Hematocrit (Bld) [Volume fraction] 28.7 % Low 35-47 [facility] Comment on above: Performed By: #### H H #### [facility] ([id number]) [address] [place] [address], [place] [address] Hemoglobin (Bld) [Mass/Vol] 9.8 g/dL Low 11.7-15.5 [facility] Comment on above: Performed By: #### H H #### [facility] ([id number]) [address] [facility] [place] [address] Surgical Pathologyon 024 Surgical Pathology Normal [facility] Comment on above: Result Comment: [facility] [place] [address] Surgical Pathology Consultation Patient Name:SYDNIE MOSQUEDAB:1990 (Age: 33)Gender:FTaken:12/21/2023eported:12/28/2023hysician(s):Randy Greene MD ([phone])Copy To: Rec. #:[id number]: #[id number] Final Pathologic Diagnosis Products of conception; removal: Products of conception (gestational sac with immature chorionic villi) and fragments of decidua with acute inflammation and necrosis. Report Electronically Signed Out wacha/12/28/2023Pradeep Brannon MD Interpretation performed at [facility], [address] [place] [address], License number: [id number]. Clinical History Spontaneous , miscarriage. Gross Description Received in formalin labeled PANDA Karyotype: No Aggregate measurement: 5.2 x 3.8 x 2.0 cm. Placenta: 3.4 x 2.8 x 1.5 cm Decidua/Clot: 1.8 x 1.0 x 0.5 cm Gestational Sac: Yes, intact Tissue: No Molar Tissue: No Cassettes: A-C placenta (3, ss, [id number],m5) DM Received fresh-no site on container. POC for routine surgical path. Per Ariana pierson/12/21/2023GR Specimen(s) Received Products of conception Fee Codes(s): 1; 04874 US PREG LESS THAN 14 WKS WIT [...] Monroy MD on 12/21/2023 8:46 AM Normal [facility] BASIC METABOLIC PANLon 12-19 Anion gap [Moles/Vol] 6 mmol/L Normal 5-[address] [facility] Comment on above: Performed By: #### B CUCO CBCA, 85340-6 #### [facility] ([id number]) [address] [place] [address] Calcium [Mass/Vol] 8.9 mg/dL Normal 8.5-10.5 [facility] Comment on above: Performed By: #### B CUCO CBCA, #### [facility] ([id number]) [address] [place] [address] Chloride [Moles/Vol] 105 mmol/L Normal 98-109 [facility] Comment on above: Performed By: #### B CUCO CBCA, 66827-2 #### [facility] ([id number]) [address] [place] [address] 79895 CO2 [Moles/Vol] 24 mmol/L Normal 22-32 [facility] Comment on above: Performed By: #### B CHETAN NORWOOD, #### [facility] ([id number]) [address] [place] [address] 48509 Creatinine [Mass/Vol] 0.74 mg/dL Normal 0.40-1.[address] [facility] Comment on above: Result Comment: METH OD TRACEABLE TO IDMS STANDARD Performed By: #### B CHETAN NORWOOD, #### [facility] ([id number]) [address] [place] [address] 00173 eGFR (CKD-EPI) NON-RACE DEPENDENT >90 Normal >59 [facility] Comment on above: Result Comment: Reported eGFR is based on the CKD-EPI 2020 equation that does not use a race coefficient. Performed By: #### B CHETAN NORWOOD, #### [facility] ([id number]) [address] [place] [address] 36529 Glucose [Mass/Vol] 149 mg/dL High 65-99 [facility] Comment on above: Performed By: #### CHETAN Morrissey MP, #### [facility] ([id number]) [address] [place] [address] 83622 Potassium [Moles/Vol] 3.6 mmol/L Normal 3.5-5.[address] [facility] Comment on above: Performed By: #### B CHETAN NORWOOD, #### [facility] ([id number]) [address] [place] [address] 75732 Sodium [Moles/Vol] 135 mmol/L Normal 134-146 [facility] Comment on above: Performed By: #### CHETAN Morrissey MP, #### [facility] ([id number]) [address] [place] [address] 13980 Urea nitrogen [Mass/Vol] 10 mg/dL Normal 5-23 [facility] Comment on above: Performed By: #### B MP, CBCA, #### [facility] ([id number]) [address] [place] [address] 15111 CBC AND AUTO DIFFon 12-20-19 24 ABSOLUTE BASOPHIL 0.0 X10E9/L Normal 0.0-0.2 [facility] Comment on above: Performed By: #### B MP, CBCA, #### [facility] ([id number]) [address] [place] [address] 31399 ABSOLUTE NEUTROPHIL 4.9 X10E9/L Normal 1.5-6.6 [facility] Comment on above: Performed By: #### B MP, CBCA, #### [facility] ([id number]) [address] [place] [address] 73009 Basophils/100 WBC (Bld) 0.4 % Normal [facility] Comment on above: Performed By: #### B MP, CBCA, #### [facility] ([id number]) [address] [place] [address] 59030 Eosinophils (Bld) [#/Vol] 0.3 10*3/uL Normal 0.0-0.4 [facility] Comment on above: Performed By: #### B MP, CBCA, #### [facility] ([id number]) [address] [place] [address] 14037 Eosinophils/100 WBC (Bld) 2.3 % Normal [facility] Comment on above: Performed By: #### B MP, CBCA, #### [facility] ([id number]) [address] [place] [address], [place] [address] Erythrocyte distribution width (RBC) [Ratio] 13.8 % Normal 11.5-15.0 [facility] Comment on above: Performed By: #### B CUCO CBCA, #### [facility] ([id number]) [address] [place] [address] 57073 Hematocrit (Bld) [Volume fraction] 34.8 % Low 35-47 [facility] Comment on above: Performed By: #### B CUCO, CBCA, #### [facility] ([id number]) [address] [place] [address] 16755 Hemoglobin (Bld) [Mass/Vol] 11.5 g/dL Low 11.7-15.5 [facility] Comment on above: Performed By: #### B CUCO CBCA, #### [facility] ([id number]) [address] [place] [address] 91917 Lymphocytes (Bld) [#/Vol] 4.6 10*3/uL High 1.0-3.5 [facility] Comment on above: Performed By: #### B CUCO, CBCA, #### [facility] ([id number]) [address] [place] [address] 40041 Lymphocytes/100 WBC (Bld) 41.7 % Normal [facility] Comment on above: Performed By: #### B CUCO, CBCA, #### [facility] ([id number]) [address] [place] [address] 23664 MCH (RBC) [Entitic mass] 27.8 pg Normal 27-34 [facility] Comment on above: Performed By: #### B CUCO, CBCA, #### [facility] ([id number]) [address] [place] [address] 49479 MCHC (RBC) [Mass/Vol] 33.0 g/dL Normal 32-[address] [facility] Comment on above: Performed By: #### B CUCO, CBCA, #### [facility] ([id number]) [address] [place] [address] 67842 MCV (RBC) [Entitic vol] 84 fL Normal 80-100 P [facility] Comment on above: Performed By: #### B CUCO, CBCA, #### [facility] ([id number]) [address] [place] [address] 60618 Monocytes (Bld) [#/Vol] 1.2 10*3/uL High 0-0.9 [facility] Comment on above: Performed By: #### B CUCO, CBCA, #### [facility] ([id number]) [address] [place] [address] 97959 Monocytes/100 WBC (Bld) 11.1 % Normal [facility] Comment on above: Performed By: #### B CUCO, CBCA, #### [facility] ([id number]) [address] [place] [address] 49591 Neutrophils/100 WBC (Bld) 44.5 % Normal [facility] Comment on above: Performed By: #### B CUCO, CBCA, #### [facility] ([id number]) [address] [place] [address] 50208 Platelet mean volume (Bld) [Entitic vol] 7.6 fL Normal 7-12 [facility] Comment on above: Performed By: #### B CUCO, CBCA, #### [facility] ([id number]) [address] [place] [address] 73436 Platelets (Bld) [#/Vol] 323 10*3/uL Normal 150-450 [facility] Comment on above: Performed By: #### B CUCO, CBCA, #### [facility] ([id number]) [address] [place] [address] 66950 RBC COUNT 4.12 X10E12/L Normal 3.80-5.20 [facility] Comment on above: Performed By: #### B MP, CBCA, #### [facility] ([id number]) [address] [place] [address] 39040 WBC (Bld) [#/Vol] 11.0 10*3/uL Normal 4.0-11.0 [facility] Comment on above: Performed By: #### B CUCO, CBCA, #### [facility] ([id number]) [address] [place] [address] 64387 HCG.beta subunit IA 3rd IS Q non 12-20-2023 HCG.beta subunit Qn 5361 m[IU]/mL Normal Pr [facility] Comment on above: Result Comment: NEW REFERENCE [...] or nontrophoblastic neoplasms. Performed By: #### B CUCO, CBCA, #### [facility] ([id number]) [address] [place] [address] 63911 HCG ( test) Ql (U)o n 12-19-2023 Beta HCG ( test) Ql (U) Positive Abnormal NEG [facility] Comment on above: Performed By: #### 2 106-3 #### [facility] ([id number]) [address] [place] [address] 48508 HCG.beta subunit IA 3rd IS Q non 12-19-2023 HCG.beta subunit Qn 6620 m[IU]/mL Normal Pr [facility] Comment on above: Result Comment: NEW REFERENCE [...] neoplasms. Performed By: #### 2 0415-6 #### [facility] ([id number]) [address] [place] [address] 08701 URN MACROSCOPIC NURon 2023 BILIRUBIN NIKITA Small Abnormal NEG [facility] Comment on above: Performed By: #### N UM #### [facility] ([id number]) [address] [place] [address] 96098 BLOOD/HGB NIKITA Large Abnormal NEG [facility] Comment on above: Performed By: #### N UM #### [facility] ([id number]) [address] [place] [address] 49489 GLUCOSE NIKITA Negative Normal NEG [facility] Comment on above: Performed By: #### N UM #### [facility] ([id number]) [address] [place] [address] 68437 KETONES NIKITA Trace Abnormal NEG [facility] Comment on above: Performed By: #### N UM #### [facility] ([id number]) [address] [place] [address] 88649 LEUKOCYTE ESTERASE NIKITA Negative Normal NEG [facility] Comment on above: Performed By: #### N UM #### [facility] ([id number]) [address] [place] [address] 67696 NITRITE NIKITA Negative Normal NEG [facility] Comment on above: Performed By: #### N UM #### [facility] ([id number]) [address] [place] [address] 09763 PH NIKITA 6.0 Normal 5.0-8.5 [facility] Comment on above: Performed By: #### N UM #### [facility] ([id number]) [address] [place] [address] 93831 PROTEIN NIKITA 100 mg/dL Abnormal NEG [facility] Comment on above: Performed By: #### N UM #### [facility] ([id number]) [address] [place] [address] 43827 SPECIFIC GRAVITY NIKITA >=1.030 Normal 1.003-1.[address] [facility] Comment on above: Performed By: #### N UM #### [facility] ([id number]) [address] [place] [address] 08600 UROBILINOGEN NIKITA 1.0 eu/dL Normal <1.1 [facility] Comment on above: Performed By: #### N UM #### [facility] ([id number]) [address] [place] [address] 60925 US PREG LESS THAN 14 WKS WIT [...] Overton MD on 12/19/2023 6:46 PM Normal [facility] Chlamydia/GC/Trich NAAon Chlamydia Trachomotis, CARLITOS Negative Normal Negative [facility] Comment on above: Performed By: #### C UU #### [facility] [address] [place] [address] [place] #### GCCHLAMTRI #### [facility] , Neisseria Gonorrhoeae, CARLITOS Negative Normal Negative [facility] Comment on above: Performed By: #### C UU #### [facility] [address] [place] [address] #### GCCHLAMTRI #### [facility] , Trichomonas CARLITOS Negative Normal Negative [facility] Comment on above: Result Comment: Perf ormed at: =G - [facility] [address] [place] [id number] [employer]en [employer] Builder: Cindy Pinzon MD, Phone: [phone] PERFORMED BY: [place] [address] PATHOLOGIST ELECTRICAL HARDWARE ENGINEER BROOKLYNN PEARCE M.D. Performed By: #### C UU #### [address] #### GCCHLAMTRI #### [facility] , Urine Cultureon 03-01-2022 Bacteria identified Cx Nom (U) 30,000 colonies/ml mixed bacterial skin contaminants 2 Days PERFORMED BY: [place] [address] PATHOLOGIST ELECTRICAL HARDWARE ENGINEER BROOKLYNN PEARCE M.D. Normal [facility] Comment on above: Performed By: #### C UU #### [address] #### GCCHLAMTRI #### [facility] , Pap IG,rfx Aptima HPV all pt hon 11-16-2021 . . Normal [facility] Comment on above: Performed By: #### H IV12 #### [facility] [address] [place] [place] [address] Andriy Stein DIAGNOSIS: Comment [facility] Comment on above: Result Comment: NEGA TIVE FOR INTRAEPITHELIAL LESION OR MALIGNANCY. THIS SPECIMEN WAS RESCREENED PART OF OUR HOSE OPERATOR PROGRAM. Performed By: #### H IV12 #### [facility] [address] [address] Andriy Stein Methodology: Comment [facility] Comment on above: Result Comment: This liquid based ThinPrep(R) pap test was screened with the use of an image guided system. Performed By: #### H IV12 #### [facility] [address] [place] [place] [address] Andriy Stein Note: Comment [facility] Comment on above: Result Comment: The Pap smear is a screening test designed to aid in the detection of premalignant and malignant conditions of the uterine cervix. It is not a diagnostic procedure and should not be used as the sole means of detecting cervical cancer. Both false-positive and false-negative reports do occur. . Performed By: #### H IV12 #### [facility] [address] [place] [place] [address] Andriy Stein Performed by: Comment Normal [facility] Comment on above: Result Comment: Nathalia Dela Cruz, Percussion Instructor (ASCP) Performed By: #### H IV12 #### [facility] [address] [place] [place] [address] Andriy Stein QC reviewed by: Comment Normal [facility] Comment on above: Result Comment: Hebert Motley, Supervisory Percussion Instructor (ASCP) Performed By: #### H IV12 #### [facility] [address] [place] [place] [address] Andriy Stein Reflex Criteria: Comment Normal [facility] Comment on above: Result Comment: The HPV DNA reflex criteria were not met with this specimen result therefore, no HPV testing was performed. . Performed By: #### H IV12 #### [facility] [address] [place], [place] [address] Andriy Stein Specimen adequacy: Comment Normal [facility] Comment on above: Result Comment: Sati sfactory for evaluation. Endocervical and/or squamous metaplastic cells (endocervical component) are present. Performed By: #### H IV12 #### [facility] [address] [place], [place] [address] Andriy Stein CBC AUTO DIFFon 07-31-2021 BASO # 0.0 103/ul Normal 0.0-0.1 [facility] Comment on above: Performed By: #### H IV12 #### [facility] [address] [place] [place] [address] Andriy Stein Basophils/100 WBC (Bld) 0.2 % Normal 0.2-2.0 [facility] Comment on above: Performed By: #### H IV12 #### [facility] [address] [place] [place] [address] Andriy Sarita EO # 0.2 103/ul Normal 0.0-0.7 [facility] Comment on above: Performed By: #### H IV12 #### [facility] [address] [place] [place] [address] Andriylogan Rodgersen Eosinophils/100 WBC (Bld) 1.4 % Normal 0.9-7.0 [facility] Comment on above: Performed By: #### H IV12 #### [facility] [address] [place] [place] [address] Andriy Sarita Erythrocyte distribution width (RBC) [Ratio] 16.9 % Critically high 11.0-15.0 [facility] Comment on above: Performed By: #### H IV12 #### [facility] [address] [place] [place] [address] Andriy Sarita Hematocrit (Bld) [Volume fraction] 28.9 % Critically low 36.0-48.0 [facility] Comment on above: Performed By: #### H IV12 #### [facility] [address] [place] [address] Andriy Sarita Hemoglobin (Bld) [Mass/Vol] 9.2 g/dL Critically low 12.0-16.0 [facility] Comment on above: Result Comment: NUVIA ENT DELIVERED Performed By: #### H IV12 #### [facility] [address] [place] [place] [address] Andriy Sarita IG # 0.07 10e3/ul Critically high 0.00-0.03 [facility] Comment on above: Performed By: #### H IV12 #### [facility] [address] [place] [place] [address] Andriy Sarita IG % 0.7 % Critically high 0.0-0.5 [facility] Comment on above: Performed By: #### H IV12 #### [facility] [address] [place] [place] [address] Andriy Sarita LYMPH # 3.2 103/ul Normal 1.2-3.8 [facility] Comment on above: Performed By: #### H IV12 #### [facility] [address] [place] [place] [address] Andriy Sarita Lymphocytes/100 WBC (Bld) 29.7 % Normal 20.5-60.0 [facility] Comment on above: Performed By: #### H IV12 #### [facility] [address] [place] [place] [address] Andriy Stein MANUAL DIFF REQ NO Normal [facility] Comment on above: Performed By: #### H IV12 #### [facility] [address] [place], [place] [address] Andriylogan Stein MCH (RBC) [Entitic mass] 28.0 pg Normal 26.7-34.0 [facility] Comment on above: Performed By: #### H IV12 #### [facility] [address] [place] [place] [address] Andriy Sarita MCHC (RBC) [Mass/Vol] 31.8 g/dL Normal 29.9-35.2 [facility] Comment on above: Performed By: #### H IV12 #### [facility] [address] [place] [place] [address] Andriy Sarita MCV (RBC) [Entitic vol] 87.8 fL Normal 81.0-99.0 [facility] Comment on above: Performed By: #### H IV12 #### [facility] [address] [place] [place] [address] Andriylogan Stein MONO # 0.9 103/ul Critically high 0.3-0.8 [facility] Comment on above: Performed By: #### H IV12 #### [facility] [address] [place] [place] [address] Andriy Sarita Monocytes/100 WBC (Bld) 8.3 % Normal 1.7-12.0 [facility] Comment on above: Performed By: #### H IV12 #### [facility] [address] [place] [place] [address] Andriylogan Rodgersen NEUT # 6.3 103/ul Normal 1.4-6.5 [facility] Comment on above: Performed By: #### H IV12 #### [facility] [address] [place], [place] [address] Andriy Stein Neutrophils/100 WBC (Bld) 59.7 % Normal 43.0-75.0 [facility] Comment on above: Performed By: #### H IV12 #### [facility] [address] [place], [place] [address] Andriy Stein Platelet mean volume (Bld) [Entitic vol] 9.7 fL Normal 9.5-13.5 [facility] Comment on above: Performed By: #### H IV12 #### [facility] [address] [place], [place] [address] Andriy Stein PLT 173 103/ul Normal 150-450 [facility] Comment on above: Performed By: #### H IV12 #### [facility] [address] [place], [place] [address] Andriy Stein RBC 3.29 106/ul Critically low 4.20-5.40 [facility] Comment on above: Performed By: #### H IV12 #### [facility] [address] [place], [place] [address] Andriy Stein WBC 10.6 103/ul Normal 4.0-11.0 [facility] Comment on above: Performed By: #### H IV12 #### [facility] [address] [place], [place] [address] Andriy Stein ASYMPTOMATIC COVID-19 ANTIGE Non 07-30-2021 EUA Statement SEE BELOW Normal [facility] Comment on above: Result Comment: This test [...] sooner. Performed By: #### H BSANS #### [facility] [address] [address] Andriy Stein SARS-CoV-2 (COVID-19) RNA CARLITOS+probe Ql (Unsp spec) Negative Normal NEGATIVE [facility] Comment on above: Result Comment: Nega tive results are presumptive. They do not preclude infection and should not be used as the sole basis for treatment decisions. Additional confirmatory testing by a molecular method should be considered. Performed By: #### H BSANS #### [facility] [address] [address] Andriy Stein CBC AUTO DIFFon 07-30-2021 BASO # 0.0 103/ul Normal 0.0-0.1 [facility] Comment on above: Performed By: #### C BC ####[facility] [address] [address]Dr. Sunil Conner Basophils/100 WBC (Bld) 0.2 % Normal 0.2-2.0 [facility] Comment on above: Performed By: #### C BC ####[facility] [address] [address]Dr. Sunil Conner EO # 0.1 103/ul Normal 0.0-0.7 [facility] Comment on above: Performed By: #### C BC ####[facility] [address] [address]Dr. Sunil Conner Eosinophils/100 WBC (Bld) 1.0 % Normal 0.9-7.0 [facility] Comment on above: Performed By: #### C BC ####[facility] [address] [address]Dr. Sunil Conner Erythrocyte distribution width (RBC) [Ratio] 17.0 % Critically high 11.0-15.0 [facility] Comment on above: Performed By: #### C BC ####[facility] [address] [address]Dr. Sunil Conner Hematocrit (Bld) [Volume fraction] 37.5 % Normal 36.0-48.0 [facility] Comment on above: Performed By: #### C BC ####[facility] [address] [address]Dr. Sunil Conner Hemoglobin (Bld) [Mass/Vol] 12.3 g/dL Normal 12.0-16.0 [facility] Comment on above: Performed By: #### C BC ####[facility] [address] [address]Dr. Sunil Conner IG # 0.05 10e3/ul Critically high 0.00-0.03 [facility] Comment on above: Performed By: #### C BC ####[facility] [address] [address]Dr. Sunil Conner IG % 0.5 % Normal 0.0-0.5 [facility] Comment on above: Performed By: #### C BC ####[facility] [address] [address]Dr. Sunil Conner LYMPH # 2.8 103/ul Normal 1.2-3.8 [facility] Comment on above: Performed By: #### C BC ####[facility] [address] [address]Dr. Sunil Conner Lymphocytes/100 WBC (Bld) 28.4 % Normal 20.5-60.0 [facility] Comment on above: Performed By: #### C BC ####[facility] [address] [address]Dr. Sunil Conner MANUAL DIFF REQ NO Normal [facility] Comment on above: Performed By: #### C BC ####[facility] [address] [address]Dr. Sunil Conner MCH (RBC) [Entitic mass] 28.5 pg Normal 26.7-34.0 [facility] Comment on above: Performed By: #### C BC ####[facility] [address] [address]Dr. Sunil Conner MCHC (RBC) [Mass/Vol] 32.8 g/dL Normal 29.9-35.2 [facility] Comment on above: Performed By: #### C BC ####[facility] [address] [address]Dr. Sunil Conner MCV (RBC) [Entitic vol] 86.8 fL Normal 81.0-99.0 [facility] Comment on above: Performed By: #### C BC ####[facility] [address] [address]Dr. Sunil Conner MONO # 0.8 103/ul Normal 0.3-0.8 [facility] Comment on above: Performed By: #### C BC ####[facility] [address] [address]Dr. Sunil Conner Monocytes/100 WBC (Bld) 7.9 % Normal 1.7-12.0 [facility] Comment on above: Performed By: #### C BC ####[facility] [address] [place], [place] [address]Dr. Sunil Conner NEUT # 6.0 103/ul Normal 1.4-6.5 [facility] Comment on above: Performed By: #### C BC ####[facility] [address] [place], [place] [address]Dr. Sunil Conner Neutrophils/100 WBC (Bld) 62.0 % Normal 43.0-75.0 [facility] Comment on above: Performed By: #### C BC ####[facility] [address] [place], [place] [address]Dr. Sunil Conner Platelet mean volume (Bld) [Entitic vol] 10.2 fL Normal 9.5-13.5 [facility] Comment on above: Performed By: #### C BC ####[facility] [address] [id number]. Sunil Ubaldo PLT 207 103/ul Normal 150-450 [facility] Comment on above: Performed By: #### C BC ####[facility] [address] [place], [place] [address]Dr. Sunil Ubaldo RBC 4.32 106/ul Normal 4.20-5.40 [facility] Comment on above: Performed By: #### C BC ####[facility] [facility] [address] [address]Dr. Sunil Conner WBC 9.7 103/ul Normal 4.0-11.0 The [facility] Comment on above: Performed By: #### C BC ####[facility] [address] [place], [place] [address]Dr. Sunil Conner DRUG SCREEN RAPID (URINE)on 07-30-2021 AMP Negative Normal NEGATIVE The [facility] Comment on above: Performed By: #### D RUGRPD ####[facility] Wxfsp[address] [place], [place] [address]Dr. Sunil Conner BAR Negative Normal NEGATIVE The [facility] Comment on above: Performed By: #### D RUGRPD ####[facility] Gxxivqfhqe[address] [place], [place] [address]Dr. Sunil Conner BUP Negative Normal NEGATIVE The [facility] Comment on above: Performed By: #### D RUGRPD ####[facility] Uigimjiy[address] [place], [place] [address]Dr. Sunil Conner BZO Negative Normal NEGATIVE The [facility] Comment on above: Performed By: #### D RUGRPD ####[facility] Ycrmlouieq[address] [place], [place] [address]Dr. Sunil Conner TAMICA Negative Normal NEGATIVE The [facility] Comment on above: Performed By: #### D RUGRPD ####[facility] Skikviuzon[address] [place], [place] [address]Dr. Sunil Conner CUT-OFFS SEE BELOW Normal The [facility] Comment on above: Result Comment: AMP (Amphetamine): 500ng/mL, BAR (Barbituates): 200 ng/mL, BZO (Benzodiazepines): 150 ng/mL, BUP (Buprenorphine): 10 ng/mL, TAMICA (Cocaine): 150 ng/mL, mAMP (Methamphetamine): 500 ng/mL, MTD (Methadone): 200 ng/mL, OPI (Opiates): 100 ng/mL, OXY (Oxycodone): 100 ng/mL, PCP (Phencyclidine): 25 ng/mL, PPX (Propoxyphene): 300 ng/mL, THC (Cannabinoids): 50 ng/mL, TCA (Trycyclic Antidepressants): 300 ng/mL Performed By: #### D RUGRPD ####[facility] [address] [place] [id number]. Sunil Conner DRUG CUT HEADER DRUG CLASS TEST SYSTEM CUT-OFF CONCENTRATIONS ARE FOLLOWS: Normal The [facility] Comment on above: Performed By: #### D RUGRPD ####[facility] [address] [place] [id number]. Sunil Conner mAMP Negative Normal NEGATIVE The [facility] Comment on above: Performed By: #### D RUGRPD ####[facility] [address] [address]Dr. Yilan Conner MTD Negative Normal NEGATIVE The [facility] Comment on above: Performed By: #### D RUGRPD ####[facility] Hrxhbugtat[address] [place], [place] [address]Dr. Yilan Conner OPI Negative Normal NEGATIVE The [facility] Comment on above: Performed By: #### D RUGRPD ####[facility] J[address] [place], [place] [address]Dr. Yilan Conner OXY Negative Normal NEGATIVE The [facility] Comment on above: Performed By: #### D RUGRPD ####[facility] S[address]zrqvugw[address] [place], [place] [address]Dr. Yilan Conner PCP Negative Normal NEGATIVE The [facility] Comment on above: Performed By: #### D RUGRPD ####[facility] [address] [place], [place] [address]Dr. Yilan Conner PPX Negative Normal NEGATIVE The [facility] Comment on above: Performed By: #### D RUGRPD ####[facility] [address] [address]Dr. Yilan Conner TCA Negative Normal NEGATIVE The [facility] Comment on above: Performed By: #### D RUGRPD ####[facility] Lcsz[address]cvey[address] [place], [place] [address]Dr. Chelsielan Conner THC Negative Normal NEGATIVE The [facility] Comment on above: Performed By: #### D RUGRPD ####[facility] F[address]ruybr[address] [place], [place] [address]Dr. Sunil Conner TYPE AND SCREENon 07-30-2021 TYPE AND SCREEN Negative Normal [facility] Comment on above: Performed By: #### T NS #### [facility] Laboratory [address] [place], [place] [id number] Dr. Sunil Conner US PREG BIOPHY W [...] NADIA DOOLEY Date: 2021-07-13 10:55 Normal The [facility] US PREG GROWTHon 07-11-2021 US PREG GROWTH [...] EFW: 6 lbs. 3 oz., 37% FL/AC: 0.626387 FL/BPD: 0.817408 HC/AC: 0.479151 GESTATIONAL AGE: Age by EDC: 36 weeks 4 days FAHEEM by EDC: 08/04/2021 Age by US: 35 weeks 3 days FAHEEM by US: 08/12/2021 IMPRESSION: Normal interval growth Electronically authenticated by: NADIA DOOLEY Date: 2021-07-11 10:28 Normal The [facility] COVID Quick Testingon 2021 Result Negative [employer] Other Quick Strepon 07-09-2021 S. pyogenes Org specific cx Ql (Throat) Negative [facility] [id number] Other Quick Strep [facility] [id number] Other GROUP B STREP CULTUREon 06-25 S. agalactiae Ag Ql (Unsp spec) Culture Observations: NEGATIVE FOR GROUP B STREPTOCOCCUS. Normal [facility] Comment on above: Performed By: #### G BSCX #### [facility] [address] [place], [place] [id number] Dr. Sunil Conner PREG GROWTHon 06-20-2021 US PREG GROWTH EXAMINATION: [...] EFW: 4 lbs. 14 oz., 53% FL/AC: 0.280406 FL/BPD: 0.001857 HC/AC: 1.441004 GESTATIONAL AGE: Age by EDC: 33 weeks 4 days FAHEEM by EDC: 08/04/2021 Age by US: 33 weeks 1 day FAHEEM by US: 08/07/2021 IMPRESSION: Normal interval growth Electronically authenticated by: NADIA DOOLEY Date: 2021-06-20 11:46 Normal [facility] CBC AUTO DIFFon 06-08-2021 BASO # 0.0 103/ul Normal 0.0-0.1 [facility] Comment on above: Performed By: #### H IV12 #### [facility] [address] [place] [address] Andriy Stein Basophils/100 WBC (Bld) 0.5 % Normal 0.2-2.0 T [facility] Comment on above: Performed By: #### H IV12 #### [facility] Laboratory [address] [place] [address] Andriy Sarita EO # 0.1 103/ul Normal 0.0-0.7 [facility] Comment on above: Performed By: #### H IV12 #### [facility] [address] [place] [address] Andriy Sarita Eosinophils/100 WBC (Bld) 1.3 % Normal 0.9-7.0 [facility] Comment on above: Performed By: #### H IV12 #### [facility] Laboratory [address] [place] [place] [address] Andriy Sarita Erythrocyte distribution width (RBC) [Ratio] 19.8 % Critically high 11.0-15.0 [facility] Comment on above: Performed By: #### H IV12 #### [facility] [address] [place] [place] [address] Andriy Sarita Hematocrit (Bld) [Volume fraction] 34.9 % Critically low 36.0-48.0 [facility] Comment on above: Performed By: #### H IV12 #### [facility] [address] [place] [place] [address] Andriy Sarita Hemoglobin (Bld) [Mass/Vol] 11.1 g/dL Critically low 12.0-16.0 [facility] Comment on above: Performed By: #### H IV12 #### [facility] [address] [place] [address] Andriy Sarita IG # 0.04 10e3/ul Critically high 0.00-0.03 [facility] Comment on above: Performed By: #### H IV12 #### [facility] [address] [place] [place] [address] Andriy Sarita IG % 0.5 % Normal 0.0-0.5 [facility] Comment on above: Performed By: #### H IV12 #### [facility] [address] [place] [place] [address] Andriy Sarita LYMPH # 2.1 103/ul Normal 1.2-3.8 [facility] Comment on above: Performed By: #### H IV12 #### [facility] [address] [id number] Andriy Sarita Lymphocytes/100 WBC (Bld) 24.8 % Normal 20.5-60.0 [facility] Comment on above: Performed By: #### H IV12 #### [facility] [address] [id number] Andriy Sarita MANUAL DIFF REQ NO Normal [facility] Comment on above: Performed By: #### H IV12 #### [facility] [address] [id number] Andriy Sarita MCH (RBC) [Entitic mass] 27.5 pg Normal 26.7-34.0 [facility] Comment on above: Performed By: #### H IV12 #### [facility] Laboratory [address] [place] [place] [address] Andriy Sarita MCHC (RBC) [Mass/Vol] 31.8 g/dL Normal 29.9-35.2 [facility] Comment on above: Performed By: #### H IV12 #### [facility] [address] [place] [place] [address] Andriy Sarita MCV (RBC) [Entitic vol] 86.6 fL Normal 81.0-99.0 [facility] Comment on above: Performed By: #### H IV12 #### [facility] [address] [place] [place] [address] Andriy Sarita MONO # 0.7 103/ul Normal 0.3-0.8 [facility] Comment on above: Performed By: #### H IV12 #### [facility] Laboratory [address] [place], [place] [address] Andriy Sarita Monocytes/100 WBC (Bld) 8.7 % Normal 1.7-12.0 [facility] Comment on above: Performed By: #### H IV12 #### [facility] [address] [place], [place] [address] Andriy Sarita NEUT # 5.4 103/ul Normal 1.4-6.5 [facility] Comment on above: Performed By: #### H IV12 #### [facility] [address] [place], [place] [address] Andriy Sarita Neutrophils/100 WBC (Bld) 64.2 % Normal 43.0-75.0 [facility] Comment on above: Performed By: #### H IV12 #### [facility] Laboratory [address] [place], [place] [address] Andriylogan Rodgersen Platelet mean volume (Bld) [Entitic vol] 9.9 fL Normal 9.5-13.5 The [facility] Comment on above: Performed By: #### H IV12 #### [facility] [address] [place], [place] [address] Andriy Sarita PLT 232 103/ul Normal 150-450 The [facility] Comment on above: Performed By: #### H IV12 #### [facility] Laboratory [address] [id number] Andriy Sarita RBC 4.03 106/ul Critically low 4.20-5.40 The [facility] Comment on above: Performed By: #### H IV12 #### [facility] Laboratory [address] [id number] Andriy Sarita WBC 8.5 103/ul Normal 4.0-11.0 The [facility] Comment on above: Performed By: #### H IV12 #### [facility] Laboratory [address] [id number] Andriy Sarita GTT 3 HR PREGon 04-30-2021 Glucose [Mass/Vol] 85 mg/dL Normal 74-106 The [facility] [place] [facility] Comment on above: Performed By: #### G TT3P ####[facility] [address] [address]Dr. Yilan Conner Glucose [Mass/Vol] 188 mg/dL Normal [facility] [place] [facility] Comment on above: Performed By: #### G TT3P ####[facility] [address] [place] [id number]. Yilan Conner Glucose [Mass/Vol] 133 mg/dL Normal [facility] [place] [facility] Comment on above: Performed By: #### G TT3P ####[facility] [address] [place] [address]Dr. Yilan Conner Glucose [Mass/Vol] 122 mg/dL Normal [facility] Comment on above: Performed By: #### G TT3P ####[facility] [address] [address]Dr. Sunil Conner CBC AUTO DIFFon 04-28-2021 BASO # 0.0 103/ul Normal 0.0-0.1 [facility] Comment on above: Performed By: #### C BC #### [facility] [address] [address] [address] Sunil Conner Basophils/100 WBC (Bld) 0.3 % Normal 0.2-2.0 [facility] Comment on above: Performed By: #### C BC #### [facility] [address] [place] [address] Dr. Sunil Conner EO # 0.1 103/ul Normal 0.0-0.7 [facility] Comment on above: Performed By: #### C BC #### [facility] [address] [address] [address] Sunil Conner Eosinophils/100 WBC (Bld) 1.2 % Normal 0.9-7.0 [facility] Comment on above: Performed By: #### C BC #### [facility] [address] [place] [address] Dr. Sunil Conner Erythrocyte distribution width (RBC) [Ratio] 14.6 % Normal 11.0-15.0 [facility] Comment on above: Performed By: #### C BC #### [facility] [address] [address] [address] Sunil Conner Hematocrit (Bld) [Volume fraction] 31.6 % Critically low 36.0-48.0 [facility] Comment on above: Performed By: #### C BC #### [facility] [address] [address] [address] Sunil Conner Hemoglobin (Bld) [Mass/Vol] 9.9 g/dL Critically low 12.0-16.0 [facility] Comment on above: Performed By: #### C BC #### [facility] [address] [place] [place] [address] Dr. Sunil Conner IG # 0.05 10e3/ul Critically high 0.00-0.03 [facility] Comment on above: Performed By: #### C BC #### [facility] [address] [place] [place] [address] Dr. Sunil Conner IG % 0.5 % Normal 0.0-0.5 [facility] Comment on above: Performed By: #### C BC #### [facility] [address] [place] [place] [address] Dr. Sunil Conner LYMPH # 2.4 103/ul Normal 1.2-3.8 [facility] Comment on above: Performed By: #### C BC #### [facility] [address] [place] [place] [address] Dr. Sunil Conner Lymphocytes/100 WBC (Bld) 25.6 % Normal 20.5-60.0 [facility] Comment on above: Performed By: #### C BC #### [facility] [address] [place] [address] Dr. Sunil Conner MANUAL DIFF REQ NO Normal [facility] Comment on above: Performed By: #### C BC #### [facility] [address] [place] [place] [address] Dr. Sunil Conner MCH (RBC) [Entitic mass] 25.8 pg Critically low 26.7-34.0 [facility] Comment on above: Performed By: #### C BC #### [facility] [address] [place] [place] [address] Dr. Sunil Conner MCHC (RBC) [Mass/Vol] 31.3 g/dL Normal 29.9-35.2 [facility] Comment on above: Performed By: #### C BC #### [facility] [address] [place] [place] [address] Dr. Sunil Conner MCV (RBC) [Entitic vol] 82.3 fL Normal 81.0-99.0 [facility] Comment on above: Performed By: #### C BC #### [facility] [address] [place] [address] Dr. Sunil Conner MONO # 0.5 103/ul Normal 0.3-0.8 [facility] Comment on above: Performed By: #### C BC #### [facility] [address] [place] [place] [address] Dr. Sunil Conner Monocytes/100 WBC (Bld) 5.3 % Normal 1.7-12.0 [facility] Comment on above: Performed By: #### C BC #### [facility] [address] [place] [place] [address] Dr. Sunil Conner NEUT # 6.4 103/ul Normal 1.4-6.5 [facility] Comment on above: Performed By: #### C BC #### [facility] [address] [place] [place] [address] Dr. Sunil Conner Neutrophils/100 WBC (Bld) 67.1 % Normal 43.0-75.0 [facility] Comment on above: Performed By: #### C BC #### [facility] [address] [place] [place] [address] Dr. Sunil Conner Platelet mean volume (Bld) [Entitic vol] 10.3 fL Normal 9.5-13.5 [facility] Comment on above: Performed By: #### C BC #### [facility] [address] [place] [address] Dr. Sunil Conner PLT 255 103/ul Normal 150-450 [facility] Comment on above: Performed By: #### C BC #### [facility] [address] [place] [place] [address] Dr. Sunil Conner RBC 3.84 106/ul Critically low 4.20-5.40 [facility] Comment on above: Performed By: #### C BC #### [facility] [address] [place] [place] [address] Dr. Sunil Conner WBC 9.5 103/ul Normal 4.0-11.0 [facility] Comment on above: Performed By: #### C BC #### [facility] [address] [place] [place] [address] Dr. Sunil Conner GLUCOSE - 1HRon 04-28-2021 Glucose [Mass/Vol] 171 mg/dL Critically high 74-106 T he [facility] Comment on above: Performed By: #### H IV12 #### [facility] Laboratory [address] [address] Andriy Stein VAGINITIS/VAGINOSIS DNA PROB Douglas 04-21-2021 Kena species Positive Abnormal Negative [facility] Comment on above: Performed By: #### V AGINT #### [facility] [address] [address] [address] Sunil Conner Gardnerella vaginalis Negative Normal Negative [facility] Comment on above: Performed By: #### V AGINT #### [facility] [address] [address] [address] Sunil Conner Trichomonas vaginalis Negative Normal Negative [facility] Comment on above: Performed By: #### V AGINT #### [facility] [address] [place] [place] [address] Dr. Sunil Conner US PREG ANATOMY SINGLEon [...] weeks 3 days EFW:12 ounces, 47%; FL/AC: 0.408833 FL/BPD: 0.924204 HC/AC: 1.597387 GESTATIONAL AGE: Age by EDC: 20 weeks 4 days FAHEEM by EDC: 08/04/2021 Age by current US: 20 weeks 2 days FAHEEM by current US: 08/06/2021 IMPRESSION: Normal anatomy scan *Reference: [facility] Practice Guideline for the performance of Obstetric Ultrasound Examinations, March 25, 2007. Electronically authenticated by: NADIA DOOLEY Date: 2021-03-21 16:13 Normal [facility] PAP ACOG PANEL 3: 21 to 29on 02-21-2021 . . Normal [facility] Comment on above: Result Comment: Perf ormed at: WB Performed By: #### H IV12 #### [facility] Laboratory [address] [id number] Andriy Stein Age Gdln ACOG Testing - Normal [facility] Comment on above: Performed By: #### H IV12 #### [facility] [address] [id number] Andriy Stein Chlamydia, Nuc. Acid Amp Negative Normal Negative [facility] Comment on above: Result Comment: Perf ormed at: =G Performed By: #### H IV12 #### [facility] [address] [id number] Andriy Stein DIAGNOSIS: Comment Abnormal [facility] Comment on above: Result Comment: EPIT HELIAL CELL ABNORMALITY. LOW-GRADE SQUAMOUS INTRAEPITHELIAL LESION (LSIL); MILD DYSPLASIA. Performed at: WB Performed By: #### H IV12 #### [facility] [address] [address] Andriy Stein Electronically signed by: Comment Normal [facility] Comment on above: Result Comment: Mayela العلي MD, Pathologist Performed at: WB Performed By: #### H IV12 #### [facility] [address] [id number] Andriy Stein Gonococcus, Nuc. Acid Amp Negative Normal Negative [facility] Comment on above: Result Comment: Perf ormed at: =G Performed By: #### H IV12 #### [facility] [address] [id number] Andriy Stein Methodology: Comment Normal [facility] Comment on above: Result Comment: This liquid based ThinPrep(R) pap test was screened with the use of an image guided system. Performed at: WB Performed By: #### H IV12 #### [facility] Laboratory [address] [place] [place] [address] Andriy Stein Note: Comment Normal [facility] Comment on above: Result Comment: The [...] WB Performed By: #### H IV12 #### [facility] [address] [address] Andriy Stein Pathologist Provided ICD10 Comment Normal [facility] Comment on above: Result Comment: [id number] Performed at: WB Performed By: #### H IV12 #### [facility] Laboratory [address] [place] [place] [address] Andriy Stein Performed by: Comment Normal [facility] Comment on above: Result Comment: Funmi Partida, Percussion Instructor (ASCP) Performed at: WB Performed By: #### H IV12 #### [facility] Laboratory [address] [place] [place] [address] Andriy Stein Recommendation: Comment Abnormal [facility] Comment on above: Result Comment: Sugg est follow up as clinically appropriate. Performed at: WB Performed By: #### H IV12 #### [facility] [address] [place] [place] [address] Andriy Stein Reflex Criteria: Comment Normal [facility] Comment on above: Result Comment: The HPV DNA reflex criteria were not met with this specimen result therefore, no HPV testing was performed. . Performed at: WB Performed By: #### H IV12 #### [facility] [address] [place] [place] [address] Andriy Stein Specimen adequacy: Comment Normal [facility] Comment on above: Result Comment: Sati sfactory for evaluation. Endocervical and/or squamous metaplastic cells (endocervical component) are present. Performed at: WB Performed By: #### H IV12 #### [facility] [address] [place], [place] [address] Andriy Sarita AFP MATERNAL FOR SPINA BIFID Aon 02-19-2021 AFP MoM 1.15 Normal [facility] Comment on above: Performed By: #### H IV12 #### [facility] [address] [address] Andriy Sarita AFP Value 35.0 ng/mL Normal The [facility] Comment on above: Performed By: #### H IV12 #### [facility] [address] [address] Andriy Sarita AFP, Serum for Spina Bifida Report Normal The [facility] Comment on above: Performed By: #### H IV12 #### [facility] [address] [address] Andriy Sarita Comment Comment Normal [facility] Comment on above: Result Comment: Jassi Perez, Ph.D., [facility] Director . References: Available Upon Request. . Multiples Of Median Cutoffs For AFP Elevations Beebe 2.5 Black 2.8 IDD 2.0 Twins 4.5 Abbreviation Definitions IDD - Insulin Dep Diabetes OSBR - Open Spina Bifida Risk . For further inquiries contact [employer] at [phone]. Performed By: #### H IV12 #### [facility] Laboratory [address] [address] Andriylogan Stein Gest Age Collection Date 16.0 weeks Normal [facility] Comment on above: Performed By: #### H IV12 #### [facility] Laboratory [address] [id number] Andriy Sarita Gestat, Age Based on Ultrasound Normal [facility] Comment on above: Result Comment: 16.0 on 02/17/2021 Recalculations are not recommended when gestational dating by LMP and ultrasound are within 10 days. Performed By: #### H IV12 #### [facility] [address] [address] Andriy Sarita Insulin Dep Diabetes No Normal The [facility] Comment on above: Performed By: #### H IV12 #### [facility] [address] [place] [place] [address] Andriy Stein Interpretation Comment Normal [facility] Comment on above: Result Comment: Inte rpretation: [...] Customer Services to discuss available options. The [employer] recommends amniocentesis be offered to women age 35 and older. Performed By: #### H IV12 #### [facility] [address] [place] [place] [address] Andriy Stein [age] Normal [facility] Comment on above: Performed By: #### H IV12 #### [facility] [address] [place] [place] [address] Andriy Stein Multiple Gestation No Normal [facility] Comment on above: Performed By: #### H IV12 #### [facility] [address] [address] Andriy Stein OSBR Risk 1 [place] 7[address] Normal [facility] Comment on above: Performed By: #### H IV12 #### [facility] [address] [place] [place] [address] Andriy Stein PDF . Normal [facility] Comment on above: Performed By: #### H IV12 #### [facility] [address] [place] [place] [address] Andriy Stein Race Normal [facility] Comment on above: Performed By: #### H IV12 #### [facility] [address] [place] [place] [address] Andriy Stein Test Results: Negative Normal The [facility] Comment on above: Performed By: #### H IV12 #### [facility] [address] [place] [address] Andriy Stein HEMOGLOBINOPATHY FRACTIONATI ON CASCADEon 02-07-2021 HGB A 97.3 % Normal 96.4-98.8 [facility] Comment on above: Performed By: #### H GBCAS ####[facility] [address] Sarita HGB A2 2.7 % Normal 1.8-3.2 [facility] Comment on above: Performed By: #### H GBCAS ####[facility] [address] Sarita HGB F 0.0 % Normal 0.0-2.0 [facility] Comment on above: Performed By: #### H GBCAS ####[facility] [address] Sarita HGB S 0.0 % Normal 0.0 [facility] Comment on above: Performed By: #### H GBCAS ####[facility] [id number] [place] [address] Sarita Interpretation: Comment Normal [facility] Comment on above: Result Comment: Norm al hemoglobin present; no hemoglobin variant or thalassemia observed. Performed By: #### H GBCAS ####[facility] [address] Sarita VARICELLA IGG ABon 1 Varicella Zoster IgG 406 index Normal Immune >165 [facility] Comment on above: Result Comment: Nega tive <135 Equivocal 135 - 165 Positive >165 A positive result generally indicates exposure to the pathogen or administration of specific immunoglobulins, but it is not indication of active infection or stage of disease. Performed By: #### V ARCEL ####[facility] [address] Sarita HEP B SURFACE ANTIGEN SCREEN on 02-06-2021 HBsAg Screen Negative Normal Negative [facility] Comment on above: Performed By: #### H BSANS #### [facility] [address] Sarita HEPATITIS C ANTIBODYon 02-06 Hep C Virus Ab <0.1 Normal 0.0-0.9 [facility] Comment on above: Result Comment: Nega tive: < 0.8 Indeterminate: 0.8 - 0.9 Positive: > 0.9 . The CDC recommends that a positive HCV antibody result be followed up with a HCV Nucleic Acid Amplification test (989078). Performed By: #### H CV ####[facility] [address] [address]Andriy Stein HIV 1 AND 2 WITH REFLEXon HIV Screen 4th Generation wRfx Non-Reactive Normal Non Reactive The [facility] Comment on above: Performed By: #### H IV12 #### [facility] [address] [place] [place] [address] Andriy Stein RPR QUANTon 02-06-2021 Rapid Plasma Reagin, Quant Non-Reactive Normal NonRea<1:1 [facility] Comment on above: Performed By: #### H IV12 #### [facility] [address] [place] [address] Andriy Stein RUBELLA AB IGGon 02-06-2021 Rubella Antibodies, IgG 1.72 index Normal Immune >0.99 [facility] Comment on above: Result Comment: Non- immune <0.90 Equivocal 0.90 - 0.99 Immune >0.99 Performed By: #### H IV12 #### [facility] [address] [place] [place] [address] Andriy Stein CBC AUTO DIFFon 02-05-2021 BASO # 0.0 103/ul Normal 0.0-0.1 [facility] Comment on above: Performed By: #### H BSANS #### [facility] [address] [place] [place] [address] Andriy Stein Basophils/100 WBC (Bld) 0.3 % Normal 0.2-2.0 T [facility] Comment on above: Performed By: #### H BSANS #### [facility] [address] [place] [place] [address] Andriy Stein EO # 0.2 103/ul Normal 0.0-0.7 [facility] Comment on above: Performed By: #### H BSANS #### [facility] [address] [place] [place] [address] Andriy Sarita Eosinophils/100 WBC (Bld) 1.7 % Normal 0.9-7.0 [facility] Comment on above: Performed By: #### H BSANS #### [facility] [address] [place] [place] [address] Andriy Sarita Erythrocyte distribution width (RBC) [Ratio] 14.0 % Normal 11.0-15.0 [facility] Comment on above: Performed By: #### H BSANS #### [facility] [address] [place] [place] [address] Andriy Sarita Hematocrit (Bld) [Volume fraction] 34.3 % Critically low 36.0-48.0 The [facility] Comment on above: Performed By: #### H BSANS #### [facility] [address] [place] [place] [address] Andriy Sarita Hemoglobin (Bld) [Mass/Vol] 11.0 g/dL Critically low 12.0-16.0 [facility] Comment on above: Performed By: #### H BSANS #### [facility] [address] [place] [place] [address] Andriy Sarita IG # 0.02 10e3/ul Normal 0.00-0.03 [facility] Comment on above: Performed By: #### H BSANS #### [facility] [address] [place] [place] [address] Andriy Sarita IG % 0.2 % Normal 0.0-0.5 [facility] Comment on above: Performed By: #### H BSANS #### [facility] [address] [place] [place] [address] Andriy Sarita LYMPH # 3.4 103/ul Normal 1.2-3.8 The [facility] Comment on above: Performed By: #### H BSANS #### [facility] [address] [place] [place] [address] Andriy Sarita Lymphocytes/100 WBC (Bld) 38.7 % Normal 20.5-60.0 The [facility] Comment on above: Performed By: #### H BSANS #### [facility] [address] [place] [place] [address] Andriy Stein MANUAL DIFF REQ NO Normal [facility] Comment on above: Performed By: #### H BSANS #### [facility] [address] [place] [place] [address] Andriylogan Stein MCH (RBC) [Entitic mass] 27.2 pg Normal 26.7-34.0 [facility] Comment on above: Performed By: #### H ANGELA #### [facility] [address] [place] [place] [address] Andriy Sarita MCHC (RBC) [Mass/Vol] 32.1 g/dL Normal 29.9-35.2 [facility] Comment on above: Performed By: #### H ANGELA #### [facility] [address] [place] [place] [address] Andriylogan Stein MCV (RBC) [Entitic vol] 84.9 fL Normal 81.0-99.0 [facility] Comment on above: Performed By: #### H BSADOM #### [facility] [address] [place] [place] [address] Andriylogan Rodgersen MONO # 0.7 103/ul Normal 0.3-0.8 [facility] Comment on above: Performed By: #### H ANGELA #### [facility] [address] [place] [place] [address] Andriy Stein Monocytes/100 WBC (Bld) 8.3 % Normal 1.7-12.0 [facility] Comment on above: Performed By: #### H BSANS #### [facility] [address] [place] [place] [address] Andriy Sarita NEUT # 4.4 103/ul Normal 1.4-6.5 [facility] Comment on above: Performed By: #### H BSADOM #### [facility] [address] [place] [place] [address] Andriy Sarita Neutrophils/100 WBC (Bld) 50.8 % Normal 43.0-75.0 [facility] Comment on above: Performed By: #### H BSADOM #### [facility] [address] [place] [place] [address] Andriylogan Stein Platelet mean volume (Bld) [Entitic vol] 9.8 fL Normal 9.5-13.5 [facility] Comment on above: Performed By: #### H ANGELA #### [facility] [address] [place], [place] [address] Andriy Stein PLT 248 103/ul Normal 150-450 [facility] Comment on above: Performed By: #### H ANGELA #### [facility] [address] [id number] Andriy Rodgersen RBC 4.04 106/ul Critically low 4.20-5.40 [facility] Comment on above: Performed By: #### H ANGELA #### [facility] [address] [id number] Andriy Stein WBC 8.7 103/ul Normal 4.0-11.0 [facility] Comment on above: Performed By: #### H ANGELA #### [facility] [address] [id number] Andriy Stein GLYCOHEMOGLOBIN A1Con 2020 ADA RECOMMENDATION ADA THERAPEUTIC TARGET 6.0 - 7.0 ACTION SUGGESTED > 7.0 Normal [facility] Comment on above: Performed By: #### A 1C ####[facility] [address] [id number] Stein Glucose [Mass/Vol] 111 mg/dL Normal [facility] Comment on above: Performed By: #### A 1C ####[facility] [address] [id number] Stein HbA1c (Bld) [Mass fraction] 5.5 % Normal <=6.0 [facility] Comment on above: Performed By: #### A 1C ####[facility] [address] [id number] Stein GTT 3 HR PREGon 02-05-2021 Glucose [Mass/Vol] 79 mg/dL Normal 74-106 [facility] Comment on above: Performed By: #### H ANGELA #### [facility] [address] [id number] Andriy Sarita Glucose [Mass/Vol] 117 mg/dL Normal [facility] Comment on above: Performed By: #### H BSANS #### [facility] [address] [address] Andriy Sarita Glucose [Mass/Vol] 93 mg/dL Normal [facility] Comment on above: Performed By: #### H BSANS #### [facility] [address] [address] Andriy Sarita Glucose [Mass/Vol] 46 mg/dL Critically low Th e [facility] Comment on above: Performed By: #### H BSANS #### [facility] [address] [address] Andriy Sarita TYPE AND SCREENon 02-05-2021 TYPE AND SCREEN Antibody Screen NEGATIVE Blood Bank Notes completed by [email or web address] ABO Rh Typing A Rh Positive Blood Bank Notes completed by yudelka Rosenberg [facility] Comment on above: Performed By: #### T NS #### [facility] [address] [place] [address] Andriy Sarita CULTURE URINEon 01-28-2021 CULTURE URINE Culture Observations: MODERATE GROWTH OF MIXED GENITAL HUBER. NO POTENTIAL PATHOGENS SEEN. Normal [facility] Comment on above: Performed By: #### U RCX ####[facility] [address] [address]Gerken Sarita UA RANDOM W/MICROSCOPICon BACTERIA SMALL Abnormal NONE SEEN The [facility] Comment on above: Performed By: #### H BSANS #### [facility] [address] [place] [place] [address] Andriy Sarita Bilirubin Ql (U) Negative Normal NEGATIVE The [facility] Comment on above: Performed By: #### H BSANS #### [facility] [address] [address] Andriy Sarita CAST NONE SEEN Normal NONE SEEN The [facility] Comment on above: Performed By: #### H BSANS #### [facility] [address] [place] [place] [address] Andriy Sarita Clarity (U) CLEAR Normal CLEAR The [facility] Comment on above: Performed By: #### H BSANS #### [facility] [address] [place] [place] [address] Andriy Sarita Color (U) YELLOW Normal YELLOW The [facility] Comment on above: Performed By: #### H BSANS #### [facility] [address] [place] [place] [address] Andriy Sarita Crystals LM Nom (Urine sed) NONE SEEN Normal NONE SEEN The [facility] Comment on above: Performed By: #### H BSANS #### [facility] [address] [address] Andriy Sarita Epithelial cells LM Ql (Urine sed) FEW Abnormal NONE SEEN /RARE The [facility] Comment on above: Performed By: #### H BSANS #### [facility] [address] [place] [place] [address] Andriy Sarita Glucose Ql (U) Negative Normal NEGATIVE [facility] Comment on above: Performed By: #### H BSANS #### [facility] [address] [place] [place] [address] Andriy Sarita Hemoglobin Ql (U) Negative Normal NEGATIVE The [facility] Comment on above: Performed By: #### H BSANS #### [facility] [address] [place] [place] [address] Andriy Sarita Ketones Ql (U) TRACE Abnormal NEGATIVE [facility] Comment on above: Performed By: #### H BSANS #### [facility] [address] [place] [place] [address] Andriy Sarita LEUKOCYTES Negative Normal NEGATIVE The [facility] Comment on above: Performed By: #### H BSANS #### [facility] [address] [place] [place] [address] Andriy Sarita MUCOUS SMALL Abnormal NONE SEEN The [facility] Comment on above: Performed By: #### H BSANS #### [facility] [address] [place] [place] [address] Andriy Sarita Nitrite Ql (U) Negative Normal NEGATIVE [facility] Comment on above: Performed By: #### H BSANS #### [facility] [address] [place] [place] [address] Andriy Sarita pH (U) 7.0 [pH] Normal 5-9 [facility] Comment on above: Performed By: #### H BSADOM #### [facility] [address] [id number] Andriy Sarita RBC 0-2 Normal 0-2 [facility] Comment on above: Performed By: #### H BSANS #### [facility] [address] [id number] Andriylogan Stein SPEC GRAVITY 1.020 Normal 1.005-<=1.02 5 [facility] Comment on above: Performed By: #### H ANGELA #### [facility] [address] [place] [place] [address] Andriy Sarita UA PROTEIN Negative Normal NEGATIVE/ TRACE [facility] Comment on above: Performed By: #### H ANGELA #### [facility] [address] [place], [place] [id number] Andriy Stein Urobilinogen Qn (U) 0.2 {Juanito'U}/dL Normal 0.2 - 1. 0 [facility] Comment on above: Performed By: #### H BSADOM #### [facility] [address] [place], [place] [id number] Andriy Sarita WBC NONE SEEN Normal NONE SEEN The [facility] Comment on above: Performed By: #### H ANGELA #### [facility] [address] [place], [place] [id number] Andriy Stein BUNon 01-26-2021 Urea nitrogen [Mass/Vol] 5.0 mg/dL Critically low 7.0-17.0 [facility] Comment on above: Performed By: #### T SH, LDH, BUN, URIC, ALT, AST ####[facility] [address] [place], [place] [address]Dybqzs Sarita CBC AUTO DIFFon 01-26-2021 BASO # 0.0 103/ul Normal 0.0-0.1 [facility] Comment on above: Performed By: #### C BC #### [facility] [address] [place], [place] [id number] Andriy Sarita Basophils/100 WBC (Bld) 0.4 % Normal 0.2-2.0 T [facility] Comment on above: Performed By: #### C BC #### [facility] [address] [id number] Andriy Sarita EO # 0.1 103/ul Normal 0.0-0.7 [facility] Comment on above: Performed By: #### C BC #### [facility] [address] [id number] Andriy Sarita Eosinophils/100 WBC (Bld) 1.1 % Normal 0.9-7.0 [facility] Comment on above: Performed By: #### C BC #### [facility] [address] [place] [place] [address] Andriy Sarita Erythrocyte distribution width (RBC) [Ratio] 14.6 % Normal 11.0-15.0 [facility] Comment on above: Performed By: #### C BC #### [facility] [address] [place] [place] [address] Andriy Sarita Hematocrit (Bld) [Volume fraction] 34.7 % Critically low 36.0-48.0 [facility] Comment on above: Performed By: #### C BC #### [facility] [address] [place], [place] [id number] Andriy Sarita Hemoglobin (Bld) [Mass/Vol] 11.1 g/dL Critically low 12.0-16.0 [facility] Comment on above: Performed By: #### C BC #### [facility] [address] [place] [place] [address] Andriy Sarita IG # 0.04 10e3/ul Critically high 0.00-0.03 [facility] Comment on above: Performed By: #### C BC #### [facility] [address] [place] [place] [address] Andriy Sarita IG % 0.5 % Normal 0.0-0.5 [facility] Comment on above: Performed By: #### C BC #### [facility] [address] [place] [place] [address] Andriy Sarita LYMPH # 2.1 103/ul Normal 1.2-3.8 [facility] Comment on above: Performed By: #### C BC #### [facility] [address] [place], [place] [id number] Andriy Sarita Lymphocytes/100 WBC (Bld) 25.5 % Normal 20.5-60.0 [facility] Comment on above: Performed By: #### C BC #### [facility] [address] [place], [place] [id number] Andriy Sarita MANUAL DIFF REQ NO Normal [facility] Comment on above: Performed By: #### C BC #### [facility] [address] [place], [place] [id number] Andriy Sarita MCH (RBC) [Entitic mass] 27.2 pg Normal 26.7-34.0 [facility] Comment on above: Performed By: #### C BC #### [facility] [address] [place] [place] [address] Andriy Sarita MCHC (RBC) [Mass/Vol] 32.0 g/dL Normal 29.9-35.2 [facility] Comment on above: Performed By: #### C BC #### [facility] [address] [place], [place] [id number] Andriy Sarita MCV (RBC) [Entitic vol] 85.0 fL Normal 81.0-99.0 [facility] Comment on above: Performed By: #### C BC #### [facility] [address] [place] [place] [address] Andriy Sarita MONO # 0.6 103/ul Normal 0.3-0.8 [facility] Comment on above: Performed By: #### C BC #### [facility] [address] [place], [place] [id number] Andriy Sarita Monocytes/100 WBC (Bld) 7.1 % Normal 1.7-12.0 [facility] Comment on above: Performed By: #### C BC #### [facility] [address] [place] [place] [address] Andriy Sarita NEUT # 5.3 103/ul Normal 1.4-6.5 [facility] Comment on above: Performed By: #### C BC #### [facility] [address] [place] [place] [address] Andriy Stein Neutrophils/100 WBC (Bld) 65.4 % Normal 43.0-75.0 [facility] Comment on above: Performed By: #### C BC #### [facility] [address] [place] [place] [address] Andriy Stein Platelet mean volume (Bld) [Entitic vol] 9.5 fL Normal 9.5-13.5 [facility] Comment on above: Performed By: #### C BC #### [facility] [address] [place] [place] [address] Andriy Rodgersen PLT 258 103/ul Normal 150-450 [facility] Comment on above: Performed By: #### C BC #### [facility] [address] [place] [place] [address] Andriy Stein RBC 4.08 106/ul Critically low 4.20-5.40 [facility] Comment on above: Performed By: #### C BC #### [facility] [address] [place] [place] [address] Andriy Stein WBC 8.1 103/ul Normal 4.0-11.0 [facility] Comment on above: Performed By: #### C BC #### [facility] [address] [place], [place] [id number] Andriy Stein CREATININE CLEARon 1 CREA CLEARANCE 69.46 ml/min Critically low 75.00-115.00 Th [facility] Comment on above: Performed By: #### H IV12 #### [facility] [address] [place] [place] [address] Andriy Stein CREA, 24 HR UR 579.12 mg/24 hr Critically low 800.00-1 ,800 .00 [facility] Comment on above: Performed By: #### H IV12 #### [facility] [address] [place], [place] [id number] Andriy Stein Creatinine [Mass/Vol] 0.53 mg/dL Normal 0.52-1.04 [facility] Comment on above: Performed By: #### H IV12 #### [facility] [address] [place] [place] [address] Andriy Stein URINE CREAT 30.48 mg/dL Normal 20.00-300.00 [facility] Comment on above: Performed By: #### H IV12 #### [facility] [address] [address] Andriy Stein GLUCOSE - 1HRon 01-26-2021 Glucose [Mass/Vol] 150 mg/dL Critically high 74-106 [facility] Comment on above: Performed By: #### G LU1HR ####[facility] [address] [place] [id number] Stein LDHon 01-26-2021 LDH 125 U/L Normal 122-222 [facility] Comment on above: Performed By: #### T SH, LDH, BUN, URIC, ALT, AST ####[facility] [address] [place] [id number] Stein PROTEIN 24HR URINEon 021 T PROT, 24 HR UR 32.3 mg/24 hr Critically low 42.0-225.0 [facility] Comment on above: Performed By: #### P ROT24U ####[facility] [address] [place] [id number] Stein UR PROT 1.7 mg/dL Normal <=12.0 [facility] Comment on above: Performed By: #### P ROT24U ####[facility] [address] [place] [id number] Stein UR TOT VOL 1900 ml/24 HR Normal [facility] Comment on above: Performed By: #### P ROT24U ####[facility] [address] [place] [id number] Rodgersen Performed By: #### H IV12 #### [facility] Laboratory [address] [id number] Andriy Stein SGOTon 01-26-2021 AST [Catalytic activity/Vol] 17 U/L Normal 14-36 [facility] Comment on above: Performed By: #### T SH, LDH, BUN, URIC, ALT, AST ####[facility] [address] [place] [address]onaldo Stein SGPTon 01-26-2021 ALT [Catalytic activity/Vol] 16 U/L Normal 9-52 [facility] Comment on above: Performed By: #### T SH, LDH, BUN, URIC, ALT, AST ####[facility] [address] [place] [address]Ronaldo Stein TSHon 01-26-2021 TSH 0.220 uIU/mL Critically low 0.470-4.680 [facility] Comment on above: Performed By: #### T SH, LDH, BUN, URIC, ALT, AST ####[facility] [address] Sarita TSH RANGE SEE BELOW Normal The [facility] Comment on above: Result Comment: <0.3 4 UIU/ml HYPERTHYROID 0.34-5.60 UIU/ml EUTHYROID >5.60 UIU/ml HYPOTHYROID Performed By: #### T SH, LDH, BUN, URIC, ALT, AST ####[facility] [address] Sarita URIC ACID SERUMon 01-26-2021 Urate [Mass/Vol] 3.6 mg/dL Normal 2.5-6.2 [facility] Comment on above: Performed By: #### T SH, LDH, BUN, URIC, ALT, AST ####[facility] [address] [place], [place] [address]Andriy Stein US PREG TVon 01-24-2021 US PREG [...] ANGELO BLANKENSHIP Date: 2021-01-24 10:12 Normal [facility] ABO AND RH TYPEon 01-19-2021 ABO and Rh group Nom (Bld) ABO Rh Typing A Rh Positive Normal [facility] Comment on above: Performed By: #### A MADDY ####[facility] [address] [place], [place] [address] Sarita PREG QUANT HCGon 01-19-2021 HCG QUANT 12508 mIU/mL Normal [facility] Comment on above: Result Comment: Prev iously reported as: 3 On 01/19/2021 11:21 By CV2 Performed By: #### H IV12 #### [facility] Laboratory [address] [place], [place] [address] Andriy Sarita HCG RANGE SEE BELOW Normal [facility] Comment on above: Result Comment: 5-50 0-1 WEEK 40-300 1-2 WEEKS 100-1,000 2-3 WEEKS 500-6,000 3-4 WEEKS 5,000-200,000 1-2 MONTHS 10,000-100,000 2-3 MONTHS 3,000-50,000 2ND TRIMESTER 1,000-50,000 3RD TRIMESTER Performed By: #### H IV12 #### [facility] Laboratory [address] [place], [place] [address] Andriy Sarita Vital Signs Date Time Vital Sign Value Performing Clinician Facility 03-24-2025 11:04-0400 Body mass index (BMI) [Ratio] 33.77 kg/m2 Krys Ambrosio APPAREL RENTAL CLERK Work Phone: [facility] 03-24-2025 11:04-0400 Body weight 89.25 kg Krys Ambrosio APPAREL RENTAL CLERK Work Phone: [facility] 03-24-2025 11:04-0400 Diastolic blood pressure 80 mm[Hg] Krys Ambrosio APPAREL RENTAL CLERK Work Phone: [facility] 03-24-2025 11:04-0400 Systolic blood pressure 118 mm[Hg] Krys Ambrosio APPAREL RENTAL CLERK Work Phone: [facility] 03-10-2025 13:25-0400 Body mass index (BMI) [Ratio] 33.44 kg/m2 Deborah Three Rivers PA Work Phone: [facility] 03-10-2025 13:25-0400 Body weight 88.36 kg Deborah Aquiles PA Work Phone: [facility] 03-10-2025 13:25-0400 Diastolic blood pressure 74 mm[Hg] Deborah Three Rivers PA Work Phone: [facility] 03-10-2025 13:25-0400 Systolic blood pressure 136 mm[Hg] Deborah Three Rivers PA Work Phone: [facility] 02-16-2025 15:09-0400 Body mass index (BMI) [Ratio] 33.3 kg/m2 Deborah Aquiles PA Work Phone: [facility] 02-16-2025 15:09-0400 Body weight 88 kg Deborah Aquiles PA Work Phone: [facility] 02-16-2025 15:09-0400 Diastolic blood pressure 72 mm[Hg] Deborah Aquiles PA Work Phone: [facility] 02-16-2025 15:09-0400 Systolic blood pressure 128 mm[Hg] Deborah Three Rivers PA Work Phone: [facility] 02-02-2025 15:03-0400 Body mass index (BMI) [Ratio] 33 kg/m2 Scooby Jenny DO Work Phone: [facility] 02-02-2025 15:03-0400 Body weight 87.2 kg Scooby Jenny DO Work Phone: [facility] 02-02-2025 15:03-0400 Diastolic blood pressure 78 mm[Hg] Scooby Jenny DO Work Phone: [facility] 02-02-2025 15:03-0400 Systolic blood pressure 136 mm[Hg] Scooby Jenny DO Work Phone: [facility] 01-01-2025 13:37-0400 Body mass index (BMI) [Ratio] 32.79 kg/m2 Deborah Three Rivers PA Work Phone: [facility] 01-01-2025 13:37-0400 Body weight 86.64 kg Deborah RUBIN Work Phone: [facility] 01-01-2025 13:37-0400 Diastolic blood pressure 72 mm[Hg] Deborah RUBIN Work Phone: [facility] 01-01-2025 13:37-0400 Systolic blood pressure 124 mm[Hg] Deborah RUBIN Work Phone: [facility] 12-04-2024 10:26-0400 Body height 162.6 cm Scooby Jenny DO Work Phone: [facility] 12-04-2024 10:25-0400 Body mass index (BMI) [Ratio] 32.27 kg/m2 Scooby Jenny DO Work Phone: [facility] 12-04-2024 10:25-0400 Body weight 85.28 kg Scooby Jenny DO Work Phone: [facility] 12-04-2024 10:25-0400 Diastolic blood pressure 72 mm[Hg] Scooby Jenny DO Work Phone: [facility] 12-04-2024 10:25-0400 Systolic blood pressure 118 mm[Hg] Scooby Jenny DO Work Phone: [facility] 11-24-2024 15:59-0400 Body mass index (BMI) [Ratio] 34.57 kg/m2 Oma Davis RN Work Phone: [facility] 11-24-2024 15:59-0400 Body weight 85.73 kg Oma Davis RN Work Phone: [facility] 11-13-2024 10:57-0400 Body weight 87.09 kg Scooby Jenny DO Work Phone: [facility] 11-13-2024 10:57-0400 Diastolic blood pressure 70 mm[Hg] Scooby Jenny DO Work Phone: [facility] 11-13-2024 10:57-0400 Systolic blood pressure 128 mm[Hg] Scooby Alvarado Work Phone: [facility] 10-16-2024 14:37-0400 Body weight 85.[address] [facility] 10-16-2024 14:37-0400 Diastolic blood pressure 82 mm[Hg] Noms Nurse [facility] 10-16-2024 14:37-0400 Systolic blood pressure 124 mm[Hg] Noms Nurse [facility] 07-09-2021 13:35-0500 Body temperature 96.4 [degF] Renita Canseco Other [employer] [facility] [id number] Other 07-09-2021 13:35-0500 SaO2% (BldA) [Mass fraction] 98 % Renita Canseco Other [employer] Other 02-19-2021 04:06-0400 Body weight 83.0088 kg RENAY OTOOLE [facility] Comment on above: Performed By: #### HIV12 #### [facility] Laboratory [address] [place] [place] [address] Andriy Stein Encounters Encounter Date Encounter Type Care Provider Facility Start: 03-24-2025 End: 03-24-2025 Nik Ambrosio NP Work Phone: [facility] Start: 03-24-2025 End: 03-24-2025 Cristhianboo ubaldo Ambrosio NP Work Phone: [facility] Start: 03-24-2025 End: 03-24-2025 Office outpatient visit 15 minutes Krys Ambrosio NP Work Phone: [facility] Comment on above: 34 weeks gestation o f ([facility]); Third trimester ([facility]); Gestational diabetes mellitus (GDM) in third trimester, gestational diabetes method of control unspecified ([facility]) Start: 03-20-2025 End: 03-20-2025 Telephone encounter Amanda STAPLES [facility] Start: 03-10-2025 End: 03-10-2025 Bamboo flowsheet Deborah RUBIN Work Phone: [facility] Start: 03-10-2025 End: 03-10-2025 Bamboo flowsheet Deborah RUBIN Work Phone: [facility] Start: 03-10-2025 End: 03-10-2025 Office outpatient visit 15 minutes Deborah RUBIN Work Phone: [facility] Comment on above: 32 weeks gestation o f ([facility]); Third trimester ([facility]) Start: 03-10-2025 End: 03-10-2025 ambulatory DEBORAH RODRIGUEZ Not Available Start: 02-25-2025 End: 02-25-2025 ambulatory DEBORAH RODRIGUEZ Not Available Start: 02-16-2025 End: 02-16-2025 ambulatory DEBORAH RODRIGUEZ Not Available Start: 02-16-2025 End: 02-16-2025 Office outpatient visit 15 minutes Deborah RUBIN Work Phone: [facility] Comment on above: Size of fetus incons istent with dates in second trimester ([facility]) (Primary Dx); 28 weeks gestation of ([facility]); Third trimester ([facility]) Start: 02-16-2025 End: 02-16-2025 Bamboo flowsheet Deborah RUBIN Work Phone: [facility] Start: 02-16-2025 End: 02-16-2025 Bamboo flowsheet Deborah RUBIN Work Phone: [facility] Start: 02-13-2025 End: 02-13-2025 Clinisync Result Encounter Scooby Jenny DO Work Phone: [facility] Unsolicited Start: 02-13-2025 End: 02-13-2025 Clinisync Result Encounter Scooby Jenny DO Work Phone: [facility] Unsolicited Start: 02-02-2025 End: 02-02-2025 Office outpatient visit 15 minutes Scooby Jenny DO Work Phone: [facility] Comment on above: Second trimester pre gnancy ([facility]); 26 weeks gestation of ([facility]); Diabetes mellitus screening Start: 02-02-2025 End: 02-02-2025 ambulatory SCOOBY JENNY Not Available Start: 02-02-2025 End: 02-02-2025 Bamboo flowsheet Scooby Jenny DO Work Phone: [facility] Start: 02-02-2025 End: 02-02-2025 Bamboo flowsheet Scooby Jenny DO Work Phone: [facility] Start: 01-26-2025 End: 01-26-2025 ambulatory SCOOBY JENNY Not Available Start: 01-01-2025 End: 01-01-2025 Bamboo flowsheet Deborah RUBIN Work Phone: [facility] Start: 01-01-2025 End: 01-01-2025 Bamboo flowsheet Deborah RUBIN Work Phone: [facility] Start: 01-01-2025 End: 01-01-2025 flow sheet Deborah RUBIN Work Phone: [facility] Comment on above: Second trimester pre gnancy ([facility]); 22 weeks gestation of ([facility]) Start: 01-01-2025 End: 01-01-2025 ambulatory DEBORAH [...] Start: 12-04-2024 End: 12-06-2024 Clinisync Result Encounter Scooby Jenny DO Work Phone: [facility] Unsolicited Start: 12-04-2024 End: 12-06-2024 External Result Encounter Deborah RUBIN Work Phone: [facility] External Department Unsolicited Start: 12-04-2024 End: 12-04-2024 Telephone encounter Rowena STAPLES Work Phone: [facility] Start: 12-04-2024 End: 12-04-2024 ambulatory SCOOBY KRUEGERO Not Available Start: 12-04-2024 End: 12-04-2024 Patient encounter procedure Scooby Jenny DO Work Phone: [facility] Start: 12-04-2024 End: 12-04-2024 flow sheet Scooby Jenny DO Work Phone: [facility] Comment on above: Second trimester pre gnancy ([facility]); 18 weeks gestation of ([facility]); Well woman exam with routine gynecological exam; Screening, , for anatomic survey ([facility]); Screen for STD (sexually transmitted disease); Need for maternal serum alpha-protein (MSAFP) screening ([facility]) Start: 11-24-2024 End: 11-24-2024 ambulatory Oma Davis RN Work Phone: [facility] Comment on above: Gestational diabetes mellitus (GDM) in second trimester, gestational diabetes method of control unspecified Start: 11-13-2024 End: 11-13-2024 flow sheet Scooby Jenny DO Work Phone: [facility] Comment on above: 15 weeks gestation o f ; Second trimester ; Diet controlled gestational diabetes mellitus (GDM), antepartum; Gestational diabetes mellitus (GDM), antepartum, gestational diabetes method of control unspecified; Elevated glucose tolerance test Start: 11-13-2024 End: 11-13-2024 ambulatory SCOOBY ALVARADO Not Available Start: 11-11-2024 End: 11-11-2024 Clinisync Result Encounter Scooby Kruegero DO Work Phone: [facility] Unsolicited Start: 11-11-2024 End: 11-11-2024 Clinisync Result Encounter Scooby Alvarado DO Work Phone: [facility] Unsolicited Start: 10-16-2024 End: 10-16-2024 Office outpatient visit 5 minutes [facility] Jenny Nurse [facility] Comment on above: GA: 11w2d Start: 10-16-2024 End: 10-16-2024 ambulatory SCOOBY ALVARADO Not Available Start: 12-20-2023 End: 12-21-2023 ambulatory NO PCP NO PCP [facility] Start: 12-19-2023 End: 12-20-2023 Emergency department patient visit RENITA HICKMAN [facility] Start: 12-19-2023 End: 12-19-2023 Emergency department patient visit NO PCP NO PCP [facility] Start: 03-01-2022 End: 03-01-2022 ambulatory Kym Masterson Facility:[facility] Start: 11-08-2021 End: 11-08-[address] SCOOBY ALVARADO Facility:[facility] Start: 08-01-2021 End: 08-01-[address] SCOOBY ALVARADO Facility:[facility] Start: 07-30-2021 End: 07-31-2021 Evaluation and management of inpatient DR SCOOBY ALVARADO Facility:[facility] Start: 07-13-2021 End: 07-13-[address] SCOOBY ALVARADO Facility:[facility] Start: 07-11-2021 End: 07-12-[address] NADIA DOOLEY Facility:[facility] Start: 07-09-2021 End: 07-09-2021 ambulatory Renita Canseco Other [employer] Other Start: 07-09-2021 Office outpatient vi sit [...] Date Procedure Procedure Detail Performing Clinician Start: 03-24-2025 Urnls dip stick/tabl et rgnt non-auto w/o micrscp Krys Ambrosio APPAREL RENTAL CLERK Work Phone: Start: 03-10-2025 Urnls dip stick/tabl et rgnt non-auto w/o micrscp Deborah RUBIN Work Phone: Start: 02-13-2025 ALL CBC WITH AUTO DIFF Scooby Alvarado DO Work Phone: Start: 02-02-2025 Urnls dip stick/tabl et rgnt non-auto w/o micrscp Scooby Jenny DO Work Phone: Start: 01-01-2025 Urnls dip stick/tabl et rgnt non-auto w/o micrscp Deborah RUBIN Work Phone: Start: 12-19-2024 US OB ANATOMY Scooby Shae io DO Work Phone: Start: 12-19-2024 US OB CERVICAL LENGTH C orey Jenny DO Work Phone: Start: 12-04-2024 RECURRENT VAGINITIS (HTRX) Deborah RUBIN Work Phone: Start: 12-04-2024 Urnls dip stick/tabl et rgnt non-auto w/o micrscp Scooby Jenny DO Work Phone: Start: 12-04-2024 IGP,APTIMA HPV,AGE GDLN Scooby Jenny DO Work Phone: Start: 12-04-2024 Microscopic observat ion [Identifier] in Cervix by Cyto stain Scooby Jenny DO Work Phone: Start: 11-24-2024 Glucose quantitative blood xcpt reagent strip Amaya Schroeder PA-C Work Phone: Start: 11-13-2024 Urnls dip stick/tabl et rgnt non-auto w/o micrscp Scooby Jenny DO Work Phone: Start: 11-11-2024 BOX TEST Scooby Fazi o DO Work Phone: Start: 10-16-2024 End: 10-16-2024 Urnls dip stick/tablet rgnt non-auto w/o micrscp Scooby Jenny DO Work Phone: Start: 07-30-2021 Delivery of Products of Conception, External Approach RENAY OTOOLE Start: 07-30-2021 Drainage of Amniotic Fluid, Therapeutic from Products of Conception, Via Natural or Artificial Opening RENAY OTOOLE Start: 02-05-2022 Introduction of Othe r Hormone into Peripheral Vein, Percutaneous Approach RENAY OTOOLE Start: 07-30-2021 Repair Perineum Skin , External Approach RENAY OTOOLE Plan of Treatment Date Care Activity Detail Author Start: 07-19-2031 DTaP,Tdap and Td Vaccines (3 - Td or Tdap) DTaP,Tdap and Td Vaccines (3 - Td or Tdap) [facility] Start: 12-04-2029 Screening for malign ant neoplasm of cervix [facility] Start: 11-24-2025 Adult BMI Screening Adult BMI Screen ing [facility] Start: 06-15-2025 End: 06-15-2025 ambulatory 06/15/2025 9:50 AM EST Visit SHERLY MARES [address] [place] [id number] Scooby Alvarado DO [address] [place] [address] SHERLY MARES Start: 04-07-2025 End: 04-07-2025 Patient encounter procedure 04/07/2025 1:30 PM EDT Routine SHERLY MARES [address] [place] [address] Deborah Rodriguez PA [address] [place] [address] SHERLY MARES Start: 03-24-2025 End: 09-21-2025 US biophysical profile w non stress test US biophysical profile w non stress test Imaging Routine Third trimester ([facility]) Expected: 03/24/2025 (Approximate), Expires: 09/21/2025 [facility] Work Phone: Comment on above: Expected: 03/24/2025 (Approximate), Expires: 09/21/2025 Start: 03-24-2025 End: 03-24-2025 Patient encounter procedure SHERLY MARES Comment on above: Arrived Start: 03-10-2025 End: 03-10-2025 Patient encounter procedure 03/10/2025 1:20 PM EDT Routine [facility] [address] [place] [id number] Deborah Rodriguez PA [address] [place] [place] [address] Arrived [facility] Comment on above: Arrived Start: 03-03-2025 End: 03-03-2025 Patient encounter procedure 03/03/2025 2:40 PM EDT Routine [facility] [address] [place] [phone] Scooby Alvarado DO [address] [place] [address] [facility] Start: 02-25-2025 End: 02-25-2025 Professional / ancillary services management 02/25/2025 3:00 PM EDT Ancillary Procedure [facility] [address] [place] [id number] [facility] Start: 02-23-2025 COVID-19 Vaccine ( season) COVID-19 Vaccine ( season) [facility] Start: 02-23-2025 Influenza vaccination P [facility] Start: 02-16-2025 End: 02-16-2025 Patient encounter procedure 02/16/2025 2:30 PM EDT Routine [facility] [address] [place] [phone] Deborah Rodriguez PA [address] [place] [address] [facility] Start: 02-16-2025 End: 06-18-2025 US for US OB follow up transabdominal approach Imaging Routine Size of fetus inconsistent with dates in second trimester ([facility]) Expected: 02/16/2025, Expires: 06/18/2025 [facility] Work Phone: Comment on above: Expected: 02/16/2025 , Expires: 06/18/2025 Start: 02-02-2025 End: 02-02-2025 Patient encounter procedure [...] EDT Ancillary Procedure [facility] [address] [place] [address] [facility] Start: 01-01-2025 End: 01-01-2025 Patient encounter procedure [facility] Comment on above: Arrived Start: 12-20-2024 Tobacco Screening Tobacco Screening [facility] Start: 12-19-2024 Adult BMI Screening Adult BMI Screen ing [facility] Start: 12-04-2024 End: 01-03-2025 Alpha fetoprotein, maternal Alpha fetoprotein, maternal Lab Routine Need for maternal serum alpha-protein (MSAFP) screening ([facility]) Expected: 12/04/2024 (Approximate), Expires: 01/03/2025 [facility] Comment on above: Expected: 12/04/2024 (Approximate), Expires: 01/03/2025 Start: 12-04-2024 End: 03-06-2025 US for US OB 14+ weeks anatomy scan Imaging Routine Screening, , for anatomic survey ([facility]) Expected: 12/04/2024, Expires: 03/06/2025 [facility] Comment on above: Expected: 12/04/2024 , Expires: 03/06/2025 Start: 12-04-2024 End: 12-04-2024 Patient encounter procedure 12/04/2024 9:40 AM EDT Routine [facility] [address] [phone] Scooby Alvarado, DO [address] [place] [address] [facility] Start: 11-13-2024 End: 11-13-2024 Patient encounter procedure 11/13/2024 10:40 AM EDT Routine [facility] [address] [place] [phone] Scooby Alvarado, DO [address] [place] [address] [facility] Start: 10-16-2024 End: 10-16-2025 ABO/Rh ABO/Rh Lab Routine Missed menses , unspecified gestational age Expected: 10/16/2024 (Approximate), Expires: 10/16/2025 [facility] Comment on above: Expected: 10/16/2024 (Approximate), Expires: 10/16/2025 Start: 10-16-2024 End: 10-16-2025 Blood type and Indirect antibody screen panel - Blood Type and screen Lab Routine Missed menses , unspecified gestational age Expected: 10/16/2024 (Approximate), Expires: 10/16/2025 [facility] Work Phone: Comment on above: Expected: 10/16/2024 (Approximate), Expires: 10/16/2025 Start: 10-16-2024 End: 10-16-2025 Drugs of abuse panel - Urine by Screen method Rapid drug screen, urine Lab Routine , unspecified gestational age Encounter for supervision of normal first in first trimester Expected: 10/16/2024 (Approximate), Expires: 10/16/2025 [facility] Comment on above: Expected: 10/16/2024 (Approximate), Expires: 10/16/2025 Start: 02-24-2024 COVID-19 Vaccine () COVID-19 Vaccine () [facility] Start: 2021 Screening for malign ant neoplasm of cervix [facility] Start: 2012 Screening for malign ant neoplasm of cervix Pap Smear [facility] Start: 2009 Adult BMI Follow Up Plan Adult BMI Follow Up Plan [facility] Start: 2003 Depression Screening Depression Scre ening [facility] Bacteria identified in Urine by Culture Urine culture Microbiology Routine Missed menses Ordered: 10/16/2024 [facility] Comment on above: Ordered: 10/16/2024 CBC W Auto Different ial panel - Blood CBC and differential Lab Routine Missed menses , unspecified gestational age Ordered: 10/16/2024 [facility] Comment on above: Ordered: 10/16/2024 CHLAMYDIA TRACHOMATI S (GENITO/STI) CHLAMYDIA TRACHOMATIS (GENITO/STI) Lab Routine Screen for STD (sexually transmitted disease) Ordered: 12/04/2024 [facility] Comment on above: Ordered: 12/04/2024 Cytology Cervical or vaginal smear or scraping study Pap Smear Pathology and Cytology Routine Well woman exam with routine gynecological exam Ordered: 12/04/2024 [facility] Comment on above: Ordered: 12/04/2024 Hemoglobin A1c/Hemoglobin.total in Blood Hemoglobin A1c Lab Routine Missed menses , unspecified gestational age Ordered: 10/16/2024 [facility] Comment on above: Ordered: 10/16/2024 Hepatitis B virus surface Ag [Presence] in Serum or Plasma by Immunoassay Hepatitis B surface antigen Lab Routine Missed menses , unspecified gestational age Ordered: 10/16/2024 [facility] Comment on above: Ordered: 10/16/2024 Hepatitis C virus Ab [Presence] in Serum or Plasma by Immunoassay Hepatitis C antibody Lab Routine Missed menses , unspecified gestational age Ordered: 10/16/2024 [facility] Comment on above: Ordered: 10/16/2024 HIV-1/HIV-2 antigen/antibody combination immunoassay HIV-1 and HIV-2 antibodies Lab Routine Missed menses , unspecified gestational age Ordered: 10/16/2024 [facility] Comment on above: Ordered: 10/16/2024 Human papilloma viru s DNA [Presence] in Unspecified specimen by Probe with amplification HPV DNA probe, amplified Microbiology Routine Well woman exam with routine gynecological exam Ordered: 12/04/2024 [facility] Comment on above: Ordered: 12/04/2024 Neisseria gonorrhoea e DNA [Presence] in Unspecified specimen by CARLITOS with probe detection Neisseria gonorrhea DNA probe, direct Lab Routine Screen for STD (sexually transmitted disease) Ordered: 12/04/2024 [facility] Comment on above: Ordered: 12/04/2024 Reagin Ab [Presence] in Serum by RPR RPR Lab Routine Missed menses , unspecified gestational age Ordered: 10/16/2024 [facility] Comment on above: Ordered: 10/16/2024 Rubella antibody, IgG Rubella an tibody, IgG Lab Routine Missed menses , unspecified gestational age Ordered: 10/16/2024 [facility] Comment on above: Ordered: 10/16/2024 SURESWAB(R) ADVANCED VAGINITIS PLUS, TMA SURESWAB(R) ADVANCED VAGINITIS PLUS, TMA Pathology and Cytology Routine Screen for STD (sexually transmitted disease) Ordered: 12/04/2024 [facility] Work Phone: Comment on above: Ordered: 12/04/2024 Immunizations Immunization Date Immunization Notes Care Provider [facility] 04-04-2024 influenza virus vaccine, unspecified formulation Oma Davis RN Work Phone: [facility] Payers Date Payer Category Payer Medicaid [facility] [id number] 2025 Medicaid [id number] 2022 Self-pay 2022 Managed Care Other (unspecified) [facility] [id number] 2022 Private Health Insurance [facility] [id number] 2022 Private Health Insurance [facility] [id number] 1991 Unknown [id number] 2.16.840.1.686050.3.579.2. 593 1991 Unknown [id number] 2.16840.1.606785.3.579.2. 593 1991 Unknown [id number] 2.16.840.1.900073.3.579.2. 593 1991 Unknown [id number] 2.16.840.1.454064.3.579.2. 593 1991 Unknown [id number] 2.16840.1.215607.3.579.2. 593 1991 Unknown [id number] 2.16.840.1.711414.3.579.2. 593 1991 Unknown [id number] 2.16.840.1.392006.3.579.2. 593 1991 Unknown [id number] 2.16.840.1.722379.3.579.2. 593 1991 Unknown [id number] 2.16.840.1.122100.3.579.2. 593 1991 Unknown [id number] 2.16.840.1.179312.3.579.2. 593 1991 Unknown [id number] 2.16.840.1.118476.3.579.2. 593 1991 Unknown [id number] 2.16.840.1.996163.3.579.2. 593 1991 Unknown [id number] 2.16.840.1.429446.3.579.2. 593 1991 Unknown [id number] 2.16.840.1.344238.3.579.2. 593 1991 Unknown [id number] 2.16.840.1.897658.3.579.2. 593 1991 Unknown [id number] 2.16.840.1.407094.3.579.2. 593 1991 Unknown [id number] 2.16.840.1.899710.3.579.2. 593 1991 Unknown [id number] 2.16.840.1.780593.3.579.2. 593 1991 Unknown [id number] 2.16.840.1.491238.3.579.2. 593 1991 Unknown [id number] 2.16.840.1.700637.3.579.2. 593 1991 Unknown [id number] 2.16.840.1.582101.3.579.2. 1286 1991 Unknown [id number] 2.16.840.1.418192.3.579.2. 1286 1991 Unknown [id number] 2.16.840.1.948699.3.579.2. 1286 1991 Unknown [id number] 2.16.840.1.641496.3.579.2. 1286 1991 Unknown [id number] 2.16.840.1.329015.3.579.2. 1259 1991 Unknown [id number] 2.16.840.1.825779.3.579.2. 1259 1991 Unknown [id number] 2.16.840.1.486356.3.579.2. 1259 1991 Unknown [id number] 2.16.840.1.877576.3.579.2. 9 1991 Unknown [id number] 2.16.840.1.075974.3.579.2. 9 1991 Unknown [id number] 2.16.840.1.465770.3.579.2. 9 1991 Unknown [id number] 2.16.840.1.552915.3.579.2. 9 1991 Unknown [id number] 2.16.840.1.227792.3.579.2. 1259 1991 Unknown [id number] 2.16.840.1.764994.3.579.2. 9 1991 Unknown [id number] 2.16.840.1.345558.3.579.2. 9 1959 Unknown [id number] 1959 Unknown [id number] Unknown [id number] 2.16.840.1.165384.3.579.2. 531 Social History Date Type Detail Facility Start: 08-05-2020 End: 12-21-2023 Sex Assigned At [facility] Tobacco smoking stat [facility] Tobacco smoking consumption unknown [facility] Start: 08-12-2024 [facility] Start: 1990 Sex assigned at Female [facility] Start: 06-27-2023 Gender identity Identifies as female gender (finding) [facility] Start: 06-27-2023 Sexual orientation Heterosexual (finding) [facility] Start: 08-25-2019 Tobacco smoking status NHIS Never smoked tobacco [facility] Start: 08-25-2019 Tobacco use and exposure Smokeless tobacco non-user [facility] Start: 11-19-2024 Alcoholic beverage intake Ex-drinker (finding) [facility] Start: 08-05-2020 End: 12-21-2023 History of Social function [facility] Are you worried or concerned that in the next two months you may not have stable housing that you own, rent or stay in as a part of a household? No [facility] Start: 1990 Sex assigned at Not on file [facility] Start: 01-28-2015 Sex Female (finding) [facility] Medical Equipment Procedure Code Equipment Code Equipment Origin al Text Equipment Identifier Dates 1 strip by In Vi tro route Daily Use in the morning prior to breakfast, 1 hour after each meal for a total of 4times daily. [id number] Start: 11-13-2024 End: 12-13-2024 1 each by In Vit ro route Daily Use to check FSBS four times daily [id number] Start: 11-13-2024 End: 12-13-2024 Clinical Notes 07-09-2021 to 03-24-2025 Krys Ambrosio, [employer] CLERK - 03/24/2025 10:50 AM EDTTelephone Encounter - BEL Navarro - 03/20/2025 12:55 PM EDTTelephone Encounter - EBL Navarro - 03/20/2025 12:55 PM EDT Note Date & Type Note Facility 03-24-2025 History of Presen t illness Narrative Reason [...] meal for a total of 4times daily. Vrxtokct-Pwi-Hg-FA ( 1 + IRON PO) Take by mouth ProFe 391.3 (180 Fe) MG capsule 1 capsule, Daily ALLERGIES Not on File PROBLEMS Active Ambulatory Problems Diagnosis Date Noted 28 weeks gestation of ([facility]) 02/16/2025 Third trimester ([facility]) 02/16/2025 Resolved Ambulatory Problems Diagnosis Date [...] nursing note reviewed. Exam conducted with a head transfer clerk present. Vitals: Estimated body mass index is 33.44 kg/m as calculated from the following: Height as of 12/04/24: 5' 4 . Weight as of 03/10/25: 194 lb 12.8 oz. BP: Patient's last menstrual period was 07/29/2024 (exact date). ASSESSMENT & PLAN ICD-10-CM 1. 34 weeks gestation of ([facility]) Z3A.34 2. Third trimester ([facility]) Z34.93 US biophysical profile w non stress test POCT urinalysis dipstick manually resulted 3. Gestational diabetes mellitus (GDM) in third trimester, gestational diabetes method of control unspecified ([facility]) O24.419 Return OB: Patient presents today [...] continues to send her glucose logs to [facility] and we will begin NST/BPP this week. Orders Placed This Encounter Procedures US biophysical profile w non stress test POCT urinalysis dipstick manually resulted Follow Up: Patient is to return to office in 2 week for routine OB appointment. Documented by Yane Grant MA on behalf of: Krys Ambrosio NP documented in this encounter [facility] 03-20-2025 Miscellaneous Notes Called patient and had to leave a voicemail. We haven't received any blood sugar logs for 4 weeks. Asked her to please send them to us or to call with questions. Left RD phone number. documented in this encounter [facility] 03-20-2025 Telephone encounter Note Called patient and had to leave a voicemail. We haven't received any blood sugar logs for 4 weeks. Asked her to please send them to us or to call with questions. Left RD phone number. [facility] 03-10-2025 History of Presen t illness Narrative Reason for Appointment: Patient ID: Paris Mosqueda is a 34 y.o. female who presents for Routine Visit Patient presents today for Return OB appointment. MEDICATIONS Current Outpatient Medications Medication Instructions Alcohol Swabs (Alcohol Prep Pad) 70 % pads 1 Pad, Topical, Daily, Use four times daily to check FSBS. Blood Glucose Monitoring Suppl (Apt[employer]us Glucometer) w/Device kit 1 kit, Does not apply, Daily, Use four times daily to check FSBS. In the morning prior to breakfast & 1 hour after each meal for a total of 4times daily. Gorlmxki-Vna-Ia-FA ( 1 + IRON PO) Take by mouth ProFe 391.3 (180 Fe) MG capsule 1 capsule, Daily ALLERGIES No Known Allergies PROBLEMS Active Ambulatory Problems Diagnosis Date Noted 28 weeks gestation of ([facility]) 02/16/2025 Third trimester ([facility]) 02/16/2025 Resolved Ambulatory Problems Diagnosis Date [...] Exam Constitutional: Appearance: Normal appearance. She is normal weight. HENT: Head: Normocephalic. Nose: Nose normal. Mouth/Throat: Mouth: Mucous membranes are moist. Cardiovascular: Rate and Rhythm: Normal rate. Pulses: Normal pulses. Pulmonary: Effort: Pulmonary effort is normal. Breath sounds: Normal breath sounds. Abdominal: General: Bowel sounds are normal. Palpations: Abdomen is soft. Musculoskeletal: General: Normal range of motion. Cervical back: Normal range of motion. Neurological: General: No focal deficit present. Mental Status: She is alert and oriented to person, place, and time. Skin: General: Skin is warm and dry. Psychiatric: Mood and Affect: Mood normal. Behavior: Behavior normal. Thought Content: Thought content normal. Judgment: Judgment normal. Vitals and nursing note reviewed. Exam conducted with a head transfer clerk present. Vitals: Estimated body mass index is 33.44 kg/m as calculated from the following: Height as of 12/04/24: 5' 4 . Weight as of this encounter: 194 lb 12.8 oz. BP: 136/74 Patient's last menstrual period was 07/29/2024 (exact date). ASSESSMENT & PLAN ICD-10-CM 1. 32 weeks gestation of ([facility]) Z3A.32 POCT urinalysis dipstick manually resulted 2. Third trimester ([facility]) Z34.93 POCT urinalysis dipstick manually resulted Return OB: Patient presents today for a routine obstetrics appointment. Patient is currently 32w0d . Patient states she is doing well but has complaints of being tired due to current . Patient has verbalizes frequent movement. labor precautions was discussed/given and patient was instructed to perform kick counts three times a day. Orders Placed This Encounter Procedures POCT urinalysis dipstick manually resulted Follow Up: Patient is to return to office in 2 week for routine OB appointment. Documented by SCOTTIE Yañez on behalf of: SCOTTIE Yañez documented in this encounter [facility] 02-16-2025 History of Presen t illness Narrative Reason [...] meal for a total of 4times daily. Kxvvnski-Zqv-Vk-FA ( 1 + IRON PO) Take by mouth ProFe 391.3 (180 Fe) MG capsule 1 capsule, Daily ALLERGIES No Known Allergies PROBLEMS Active Ambulatory Problems Diagnosis Date Noted 28 weeks gestation of ([facility]) 02/16/2025 Third trimester ([facility]) 02/16/2025 Resolved Ambulatory Problems Diagnosis Date [...] Objective: Physical Exam Constitutional: Appearance: Normal appearance. HENT: Head: Normocephalic. Nose: Nose normal. Mouth/Throat: Mouth: Mucous membranes are moist. Cardiovascular: Rate and Rhythm: Normal rate. Pulmonary: Effort: Pulmonary effort is normal. Abdominal: General: Bowel sounds are normal. Palpations: Abdomen is soft. Musculoskeletal: General: Normal range of motion. Cervical back: Normal range of motion. Neurological: General: No focal deficit present. Mental Status: She is alert. Skin: General: Skin is warm and dry. Psychiatric: Mood and Affect: Mood normal. Vitals and nursing note reviewed. Exam conducted with a head transfer clerk present. Vitals: Estimated body mass index is 33.3 kg/m as calculated from the following: Height as of 12/04/24: 5' 4 . Weight as of this encounter: 194 lb. BP: 128/72 Patient's last menstrual period was 07/29/2024 (exact date). ASSESSMENT & PLAN ICD-10-CM 1. Size of fetus inconsistent with dates in second trimester ([facility]) O26.842 US OB follow up transabdominal approach 2. 28 weeks gestation of ([facility]) Z3A.28 CANCELED: CBC and differential 3. Third trimester ([facility]) Z34.93 Return OB: Patient presents today for a routine obstetrics appointment. Patient is currently 28w6d . Patient states she is doing well but has complaints of being tired due to current . Patient has verbalizes frequent movement. labor precautions was discussed/given and patient was instructed to perform kick counts three times a day. Orders Placed This Encounter Procedures US OB follow up transabdominal approach Follow Up: Patient is to return to office in 2 week for routine OB appointment. Documented by SCOTTIE Yañez on behalf of: SCOTTIE Yañez documented in this encounter [facility] 02-02-2025 History of Presen t illness Narrative [...] meal for a total of 4times daily. Pqswtnut-Yqv-Sc-FA ( 1 + IRON PO) Take by [...] nursing note reviewed. Exam conducted with a head transfer clerk present. Vitals: Estimated body mass index is 33 kg/m as calculated from the following: Height as of 12/04/24: 5' 4 . Weight as of this encounter: 192 lb 4 oz. BP: 136/78 Patient's last menstrual period was 07/29/2024 (exact date). ASSESSMENT & PLAN ICD-10-CM 1. Second trimester ([facility]) Z34.92 POCT urinalysis dipstick manually resulted 2. 26 weeks gestation of ([facility]) Z3A.26 3. Diabetes mellitus screening Z13.1 [...] glucose log and completed Diabetic education through [facility]. Documented by Krys Ambrosio NP on behalf of: Scooby Alvarado DO documented in this encounter [facility] 01-01-2025 History of Presen t illness Narrative Reason for Appointment: Patient ID: Paris Mosqueda is a 34 y.o. female who presents for Routine Visit Patient presents today for Return OB appointment. MEDICATIONS Current Outpatient Medications Medication Instructions Alcohol Swabs (Alcohol Prep Pad) 70 % pads 1 Pad, Topical, Daily, Use four times daily to check FSBS. Blood Glucose Monitoring Suppl ([employer] Glucometer) w/Device kit 1 kit, Does not apply, Daily, Use four times daily to check FSBS. In the morning prior to breakfast & 1 hour after each meal for a total of 4times daily. Bamksltx-Cjm-Fl-FA ( 1 + IRON PO) Take by [...] ASSESSMENT & PLAN ICD-10-CM 1. Second trimester ([facility]) Z34.92 POCT urinalysis dipstick manually resulted 2. 22 weeks gestation of ([facility]) Z3A.22 Return OB: Patient presents today [...] of: SCOTTIE Yañez documented in this encounter [facility] 12-04-2024 Miscellaneous Notes Called regarding blood sugar logs from 11/25/2024-11/30/2024 [...] have questions you can call me at [phone]. Please continue to send in blood sugars weekly. I will also send a [employer] message. documented in this encounter [facility] 12-04-2024 Telephone encounter Note Called regarding blood sugar logs from [...] have questions you can call me at [phone]. Please continue to send in blood sugars weekly. I will also send a [employer] message. [employer] Work Phone: 12-04-2024 History of Presen t illness Narrative Reason for Appointment: Patient ID: Paris Mosqueda is a 34 y.o. female who presents for Routine Visit Patient presents today for Return OB appointment. MEDICATIONS Current Outpatient Medications Medication Instructions Alcohol Swabs (Alcohol Prep Pad) 70 % pads 1 Pad, Topical, Daily, Use four times daily to check FSBS. Blood Glucose Monitoring Suppl (D-Kinkaa Search Tools Glucometer) w/Device kit 1 kit, Does not [...] Use to check FSBS four times daily Ecorkpdv-Nnj-Kd-FA ( 1 + IRON PO) Take by [...] nursing note reviewed. Exam conducted with a head transfer clerk present. Vitals: There is no height or weight on file to calculate BMI. BP: 118/72 Patient's last menstrual period was 07/29/2024 (exact date). ASSESSMENT & PLAN ICD-10-CM 1. Second trimester ([facility]) Z34.92 POCT urinalysis dipstick manually resulted 2. 18 weeks gestation of ([facility]) Z3A.18 3. Well woman exam with routine gynecological exam Z01.419 Pap Smear HPV DNA probe, amplified 4. Screening, , for anatomic survey ([facility]) Z36.89 US OB 14+ weeks anatomy scan 5. Screen for STD (sexually transmitted disease) Z11.3 SURESWAB(R) ADVANCED VAGINITIS PLUS, TMA CHLAMYDIA TRACHOMATIS (GENITO/STI) Neisseria gonorrhea DNA probe, direct 6. Need for maternal serum alpha-protein (MSAFP) screening ([facility]) Z36.1 Alpha fetoprotein, maternal Alpha fetoprotein, [...] Scooby Alvarado DO documented in this encounter [facility] 11-24-2024 Group counseling note Patient: Paris Mosqueda [...] Face to face time was 85 minutes. [employer] Work Phone: 11-24-2024 Miscellaneous Notes Patient: Paris Mosqueda Date: 11/24/2024 Vitals: 11/24/24 [...] was 85 minutes. documented in this encounter [employer] 11-13-2024 History of Presen t illness Narrative Reason for Appointment: Patient ID: Paris Mosqueda is a 34 y.o. female who presents for Routine Visit Patient presents today for Return OB appointment. MEDICATIONS Current Outpatient Medications Medication Instructions Alcohol Swabs (Alcohol Prep Pad) 70 % pads 1 Pad, Topical, Daily, Use four times daily to check FSBS. Blood Glucose Monitoring Suppl (D-Kinkaa Search Tools Glucometer) w/Device kit 1 kit, Does not [...] Use to check FSBS four times daily Ijquuupo-Zem-Dm-FA ( 1 + IRON PO) Take by [...] nursing note reviewed. Exam conducted with a head transfer clerk present. Vitals: There is no height or [...] or undercooked meat, and stay away from [facility]. Patient has been consulted regarding any further do's and don'ts of . Patient voiced understanding and all questions and concerns were answered. Orders Placed This Encounter Procedures POCT urinalysis dipstick manually resulted Discussed with patient her recent A1c results and patient aware that referral will be sent to [facility] for Diabetic Education and monitoring. PVU and supplies sent to pharmacy for patient to pickup and take with her to her referral appointment. Follow Up: Patient is to return in 4 weeks for routine OB appointment. Documented by Wendy Ulloa LPN on behalf of: Scooby Alvarado DO documented in this encounter [facility] 10-16-2024 History of Presen t illness Narrative [...] or undercooked meat, and stay away from [facility]. Patient has also been advised to [...] Faye Tyler MA documented in this encounter [facility] 07-09-2021 Evaluation note Encounter Date Diagnosis Assessment [...] care instructions given in writting by [facility] Care At Home document [employer] Other Evaluation note* Diagnosis Missed menses Missed menses , unspecified gestational age Encounter for supervision of normal first in first trimester [facility] Diagnosis 15 weeks gestation of Second trimester state, incidental Diet controlled gestational diabetes mellitus (GDM), antepartum Gestational diabetes mellitus (GDM), antepartum, gestational diabetes method of control unspecified Elevated glucose tolerance test Impaired glucose tolerance test [facility] Diagnosis Gestational diabetes mellitus (GDM) in second trimester, gestational diabetes method of control unspecified [facility] Diagnosis Second trimester ([facility]) state, incidental 18 weeks gestation of ([facility]) Well woman exam with routine gynecological exam Routine gynecological examination Screening, , for anatomic survey ([facility]) Encounter for anatomic survey Screen for STD (sexually transmitted disease) Screening examination for venereal disease Need for maternal serum alpha-protein (MSAFP) screening ([facility]) [facility] Diagnosis Second trimester ([facility]) state, incidental 22 weeks gestation of ([facility]) [facility] Diagnosis Second trimester ([facility]) state, incidental 26 weeks gestation of ([facility]) Diabetes mellitus screening Screening for diabetes mellitus [facility] Diagnosis Size of fetus inconsistent with dates in second trimester ([facility])- Primary 28 weeks gestation of ([facility]) Third trimester ([facility]) state, incidental [facility] Diagnosis 32 weeks gestation of ([facility]) Third trimester ([facility]) state, incidental [facility] Diagnosis 34 weeks gestation of ([facility]) Third trimester ([facility]) state, incidental Gestational diabetes mellitus (GDM) in third trimester, gestational diabetes method of control unspecified ([facility]) documented [facility] this encounter [facility]ructionsNot on filedocumented in this encounterProMedica [facility] System[facility]ructionsNot on filedocumented in this [facility] Summary Purpose Family History No Family History Records FoundNo Family History Records FoundNo Family History Records FoundNo Family History Records FoundNo Family History Records Found Advance Directives Date Activated Date Inactivated Comments 12/20/2023 11:13 PM 12/21/2023 1:46 PM Additional Source Comments INFORMATION SOURCE (unrecogn ized section and content) DATE CREATED AUTHOR 11/17/2021 [facility] DATE CREATED AUTHOR AUTHOR'S ORGANIZ ATION 03/24/2022 [facility] DATE CREATED AUTHOR AUTHOR'S ORGANIZ ATION 12/29/2023 [facility] DATE CREATED AUTHOR AUTHOR'S ORGANIZ ATION 11/25/2024 [facility] DATE CREATED AUTHOR AUTHOR'S ORGANIZ ATION 03/11/2025 [facility] Specialists EPIC REASON FOR VISIT (unrecogniz ed section and content) Reason Comments Amenorrhea Reason Comments Routine Visit Reason Comments Gestational Diabetes Specialty Diagnoses / Procedures Referred By Belen vu Referred To Contact Maternal and Medicine Diagnoses Gestational diabetes mellitus (GDM) in second trimester, gestational diabetes method of control unspecified Scooby Alvarado R, DO [address] [place] [address] Phone: tel: fax: Maternal- Medicine at [facility] [address] [place] [address] Phone: tel: fax: Referral ID Status Reason Start Date Expiration Date Visits Requested Visits Authorized [id number] Pending Review Specialty Services Required 11/19/2024 11/19/2025 1 1 Care Teams (unrecognized sec tion and content) Film Painter Relationship Specialty Start Date End Date No Pcp, [place] [address] PCP - General Family Medicine 12/19/23 Film Painter Relationship Specialty Start Date End Date No Pcp, [place] [address] PCP - General Family Medicine 12/19/23 Film Painter Relationship Specialty Start Date End Date No Pcp, [place] [address] PCP - General Family Medicine 12/19/23 FOR [...] BE BASED ON THE PRIMARY CLINICAL RECORDS. [employer] [facility]. provides no warranty or guarantee of the accuracy or completeness of information in this document.
[2025-03-27 14:11] VITALS: BP 127/73; PULSE 67
== END 2025-03-27 15:09 | disposition home or self-care (01) ==
LOC: FBCO 14:00 → FBC 14:07
PROVIDERS: Visit Provider Obstetrics & Gynecology
DX: O24.419 Gestational diabetes mellitus in pregnancy, unspecified control (principal)
CPT/HCPCS: 59025

== ENCOUNTER 2025-03-31 12:53 | Outpatient (OUT) | payer MEDICAID, SELFPAY ==
--- NOTE | 2025-03-31 | US_ITS ---
[place] [id number] Patient Name: PRISCILLA BLAND MRN: [facility]:[id number] date: 1990 Sex: F Assigned Patient Location: [facility] Current Patient Location: Accession/Order Number: [id number] Exam Date: 03/31/2025 12:57 Report Date: 03/31/2025 17:44 At the request of: JEM MCCABE Procedure: US OB BPP w non-stress Ultrasound biophysical profile INDICATION: Gestational diabetes FINDINGS/ IMPRESSION: Cephalic position. 8/ 8 score biophysical profile. JEANNINE measures 7.9 cm which is borderline oligohydramnios. heart rate 152 beats per minutes. Impression dictated by: Nito Chong M.D. 03/31/2025 5:44 PM Dictation Location: [facility] Electronically authenticated by: [id number] Y Date: 03/31/2025 17:44
--- OUTSIDE RECORDS SUMMARY | 2025-03-31 13:00 | XMS_ITS | CCD ---
Author Organization [facility] Care Team Providers Care Grease Packer Name Role Phone RENAY OTOOLE Attending Unavailable [...] RODRIGUEZ Attending Unavailable SCOOBY ALVARADO Attending Unavailable AQUILES, DEBORAH Attending Unavailable DEBORAH RODRIGUEZ Referring Unavailable DEBORAH RODRIGUEZ Attending Unavailable JEM AMRBOSIO Attending Unavailable Medications Current Medications Medication Drug [...] 1 capsule by mouth Daily 02/04/2024 Active Kmsqhyrk-Avg-Sc-FA ( 1 + IRON PO) (20 sources) Jolffvvz-Uis-Oo-FA ( 1 + IRON PO) Take by [...] applicable or unspecified; Translations: [MAT CARE OTH IN FTL GRTH 3RD TM UNS] Onset: 08-08-2021 [...] UA Negative Negative - 4(70) +++ mg/dL [facility] Blood, UA Negative Negative - 50 Celestino/mcL [facility] Clarity, UA Clear [facility] Color, UA Yellow [facility] Glucose, UA Negative Negative - 1999(110) ++++ mg/dL [facility] Interpretation and review of laboratory results Abnormal [facility] Ketones, UA Negative Negative - 160(16) ++++ mg/dL [facility] Leukocytes, UA Trace Negative - 500+++ Dodie/mcL [facility] Nitrite, UA Negative Negative - Positive [facility] pH, UA 6 5 - 9 [facility] Protein, UA Trace Negative - 1999(20) ++++ mg/dL [facility] Spec Grav, UA 1.02 1 - 1.03 [facility] Urobilinogen, UA 2.0 0.2 - 12 mg/dL [facility] Urinalysis macro (dipstick) panel (U)on 03-10-2025 Bilirubin, UA Positive Negative - 4(70) +++ mg/dL [facility] Blood, UA Positive Negative - 50 Celestino/mcL [facility] Clarity, UA Clear [facility] Color, UA Renita [facility] Glucose, UA Negative Negative - 1999(110) ++++ mg/dL [facility] Interpretation and review of laboratory results Abnormal [facility] Ketones, UA Positive Negative - 160(16) ++++ mg/dL [facility] Leukocytes, UA Positive Negative - 500+++ Dodie/mcL [facility] Nitrite, UA Negative Negative - Positive [facility] pH, UA 6 5 - 9 [facility] Protein, UA Positive Negative - 1999(20) ++++ mg/dL [facility] Spec Grav, UA 1.03 1 - 1.03 [facility] Urobilinogen, UA 1.0 0.2 - 12 mg/dL [facility] US OB FOLLOW UP TRANSABDOMIN [...] AUTO DIFFon BASOPHILS ABSOLUTE AUTO 0 N [facility] Basophils/100 WBC (Bld) 0.4 % 0.2 - 2.0 % [facility] Eosinophils/100 WBC (Bld) 1.5 % 0.9 - 7.0 % [facility] Erythrocyte distribution width (RBC) [Ratio] 15 % 11.0 - 15.0 % [facility] Hematocrit (Bld) [Volume fraction] 33.1 % Low 36.0 - 48.0 % [facility] Hemoglobin (Bld) [Mass/Vol] 10.6 g/dL Low 12.0 - 16.0 g/dL [facility] IMMATURE GRANULOCYTES ABS AUTO 0.05 High [facility] Immature granulocytes/100 WBC (Bld) 0.5 % 0.0 - 0.5 % [facility] Interpretation and review of laboratory results Abnormal [facility] LYMPHOCYTES ABSOLUTE AUTO 3 [facility] Lymphocytes/100 WBC (Bld) 31.1 % 20.5 - 60.0 % [facility] MCH (RBC) [Entitic mass] 25.4 pg Low 26.7 - 34.0 pg [facility] MCHC (RBC) [Mass/Vol] 32 g/dL 29.9 - 35.2 g/dL [facility] MCV (RBC) [Entitic vol] 79.2 fL Low 81.0 - 99.0 fL [facility] MONOCYTES ABSOLUTE AUTO 0.8 N [facility] Monocytes/100 WBC (Bld) 8.4 % 1.7 - 12.0 % [facility] NEUTROPHILS ABSOLUTE AUTO 5.7 [facility] Neutrophils/100 WBC (Bld) 58.1 % 43.0 - 75.0 % [facility] Platelet mean volume (Bld) [Entitic vol] 10 fL 9.5 - 13.5 fL [facility] TBH EO # 0.2 [facility]T 279 [facility] e TB RBC 4.18 Low [facility] TBH WBC 9.7 [facility] Urinalysis macro (dipstick) panel (U)on 02-02-2025 Bilirubin, UA Negative Negative - 4(70) +++ mg/dL [facility] Blood, UA Negative Negative - 50 Celestino/mcL [facility] Clarity, [facility] Clear [facility] U[facility] Yellow [facility] Glucose, UA Negative Negative - 1999(110) ++++ mg/dL [facility] Interpretation and review of laboratory results Abnormal [facility] Ketones, UA Positive Negative - 160(16) ++++ mg/dL [facility] Comment on above: Trace Leukocytes, UA Positive Negative - 500+++ Dodie/mcL [facility] Comment on above: Small Nitrite, UA Negative Negative - Positive [facility] pH, UA 6 5 - 9 [facility] Protein, UA Trace Negative - 1999(20) ++++ mg/dL [facility] Spec Grav, UA 1.03 1 - 1.03 [facility] Urobilinogen, UA 0.2 0.2 - 12 mg/dL [facility] US OB LIMITED 1+ FETUSESon [...] UA Negative Negative - 4(70) +++ mg/dL [facility] Blood, UA Negative Negative - 50 Celestino/mcL [facility] Clarity, UA Clear [facility] re Color, UA Yellow [facility] e Glucose, UA Negative Negative - 1999(110) ++++ mg/dL [facility] Interpretation and review of laboratory results Normal [facility] Ketones, UA Negative Negative - 160(16) ++++ mg/dL [facility] Leukocytes, UA Negative Negative - 500+++ Dodie/mcL [facility] Nitrite, UA Negative Negative - Positive [facility] pH, UA 7 5 - 9 [facility] e Protein, UA Trace Negative - 1999(20) ++++ mg/dL [facility] Spec Grav, UA 1.025 1 - 1.03 [facility] Urobilinogen, UA 0.2 0.2 - 12 mg/dL [facility] No Panel InformationOrdered By: Radiologist Radiology on 12-19-2024 [facility] Work Phone: No Panel Informationon 12-19 Radiology Study observation (narrative) [facility] US OB ANATOMYon 12-19-[address] [address] Ultrasound Report Signed Patient: PARIS MOSQUEDA MR#: [id number] : 1990 Acct:[id number] Age/Sex: 34 / F ADM Date: 12/19/24 Loc: US Attending Dr: Scooby Alvarado D.O. Ordering Physician: Scooby Alvarado D.O. Date of Service: 12/19/24 Procedure(s): US OB anatomy Accession Number(s): [id number] cc: [facility] ; Scooby Alvarado D.O. [address] [address] Patient Name: PARIS MOSQUEDA MRN: [facility]:[id number] date: 1990 Sex: F Assigned Patient Location: US Current Patient Location: US Accession/Order Number: [id number] Exam Date: 12/19/2024 11:33 Report Date: 12/19/2024 [...] Evangelista M.D. 12/19/2024 11:39 AM Dictation Location: [place] [address] Electronically authenticated by: [id number] Y Date: 12/19/2024 11:39 Dictated By: Sarita Evangelista M.D. Signed By: 12/19/24 1142 DD/ 1139 TD/TT: Boom Conveyor Operator: [facility] Radiology, Radiologist, MD - 12/19/2024 [place] [address] Ultrasound Report Signed Patient: PARIS MOSQUEDA MR#: [id number] : 1990 Acct:[id number] Age/Sex: 34 / F ADM Date: 12/19/24 Loc: US Attending Dr: Scooby Alvarado D.O. Ordering Physician: Scooby Alvarado D.O. Date of Service: 12/19/24 Procedure(s): US OB anatomy Accession Number(s): [id number] cc: [facility] ; Scooby Alvarado D.O. The [address] [address] Patient Name: PARIS MOSQUEDA MRN: [facility]:[id number] date: 1990 Sex: F Assigned Patient Location: US Current Patient Location: US Accession/Order Number: [id number] Exam Date: 12/19/2024 11:33 Report Date: 12/19/2024 [...] Evangelista M.D. 12/19/2024 11:39 AM Dictation Location: [place] [address] Electronically authenticated by: [id number] Y Date: 12/19/2024 11:39 Dictated By: Sarita Evangelista M.D. Signed By: 12/19/24 1142 DD/ 1139 TD/TT: Boom Conveyor Operator: [facility] OB CERVICAL LENGTHon 11-24 [place] [address] Ultrasound Report Signed Patient: PARIS MOSQUEDA MR#: [id number] : 1990 Acct:[id number] Age/Sex: 34 / F ADM Date: 12/19/24 Loc: US Attending Dr: Scooby Alvarado D.O. Ordering Physician: Scooby Alvarado D.O. Date of Service: 12/19/24 Procedure(s): US OB cervical length Accession Number(s): [id number] cc: [facility] ; Scooby Alvarado D.O. [address] [address] Patient Name: PARIS MOSQUEDA MRN: [id number] date: 1990 Sex: F Assigned Patient Location: Current Patient Location: Accession/Order Number: [id number] Exam Date: 12/19/2024 11:33 Report Date: 12/19/2024 [...] Evangelista M.D. 12/19/2024 11:39 AM Dictation Location: [place] [address] Electronically authenticated by: [id number] Y Date: 12/19/2024 11:39 Dictated By: Sarita Evangelista M.D. Signed By: 12/19/24 1142 DD/ 1139 TD/TT: Boom Conveyor Operator: [facility] Radiology, Radiologist, - 12/19/2024 [place] [address] Ultrasound Report Signed Patient: PARIS MOSQUEDA MR#: [id number] : 1990 Acct:[id number] Age/Sex: 34 / F ADM Date: 12/19/24 Loc: US Attending Dr: Scooby Alvarado D.O. Ordering Physician: Scooby Alvarado D.O. Date of Service: 12/19/24 Procedure(s): US OB cervical length Accession Number(s): [id number] cc: [facility] ; Scooby Alvarado D.O. The [place] [id number] Patient Name: PARIS MOSQUEDA MRN: [facility]:[id number] date: 1990 Sex: F Assigned Patient Location: US Current Patient Location: US Accession/Order Number: [id number] Exam Date: 12/19/2024 11:33 Report Date: 12/19/2024 [...] Evangelista M.D. 12/19/2024 11:39 AM Dictation Location: [place] [address] Electronically authenticated by: [id number] Y Date: 12/19/2024 11:39 Dictated By: Sarita Evangelista M.D. Signed By: 12/19/24 1142 DD/ 1139 TD/TT: Boom Conveyor Operator: [facility] IGP,APTIMA HPV,AGE GDLNon AGE GDLN ACOG TESTING Note . [facility] Comment on above: TESTS RESULT FLAG UN ITS REF RANGE LAB Clinician Provided Cytology Information Source.............Vagina Other.............. No. of containers..01 ThinPrep Vial Age Algo ACOG Karine... 30-65 01 FLAG LEGEND: L-Low Normal,H-High Normal,LL-Alert Low,HH-Alert High <-Panic Low,>-Panic High,A-Abnormal,AA-Critical Abnormal Performed at: 01 =G [address] [place] [address] Cindy Pinzon MD, HPV APTIMA Negative Negative [facility] Comment on above: This nucleic acid am plification test detects fourteen high- risk HPV types (16,18,31,33,35,39,45,51,52,56,58,59,66,68) without differentiation. Performed at: = - Lab[address] [id number] Emergency Physician: Cindy Pinzon MD, Phone: [phone] Performed at: [address] [id number] Emergency Physician: Cindy Pinzon MD, Phone: [phone] IGP, APTIMA HPV, RFX 16/18,45 Note . [facility] Comment on above: TESTS RESULT FLAG U NITS REF RANGE LAB DIAGNOSIS: 02 NEGATIVE FOR INTRAEPITHELIAL LESION OR MALIGNANCY. Specimen adequacy: 02 Satisfactory for evaluation. No endocervical component is identified. Performed by: 02 Yanni Dela Cruz, Heart Coordinator (ASCP) . 02 Note: Note 02 The [...] Abnormal Performed at: 02 [facility] [address] [address] Cindy Pinzon MD, SPATULA-ALONE VAGINA [facility] RECURRENT VAGINITIS (HTRX)on 12-06-2024 ATOPOBIUM VAGINAE 0 [facility] ATOPOBIUM VAGINAE Not detected [facility] BVAB 2,3 (BACTERIAL VAGINOSIS ASSOCIATED BACTERIA 2, 3); MOBILUNCUS SPP 0 [facility] BVAB 2,3 (BACTERIAL VAGINOSIS ASSOCIATED BACTERIA 2, 3); MOBILUNCUS SPP Not detected [facility] KENA ALBICANS, PARAPSILOSIS, TROPICALIS 0 [facility] KENA ALBICANS, PARAPSILOSIS, TROPICALIS Not detected [facility] KENA GLABRATA 0 [facility] KENA GLABRATA Not detected [facility] KE[facility]USEI [facility] KE[facility] KRUSEI Not detected [facility] CHLAMYDIA TRACHOMATIS 0 [facility] CHLAMYDIA TRACHOMATIS Not detected [facility] GARDNERELLA VAGINALIS 0 [facility] GARDNERELLA VAGINALIS Not detected [facility] MEGASPHAERA (TYPES 1, 2) 0 [facility] MEGASPHAERA (TYPES 1, 2) Not detected [facility] MYCOPLASMA GENITALIUM 0 [facility] MYCOPLASMA GENITALIUM Not detected [facility] NEISSERIA GONORRHOEAE 0 [facility] NEISSERIA GONORRHOEAE Not detected [facility] TRICHOMONAS VAGINALIS 0 [facility] TRICHOMONAS VAGINALIS Not detected [facility] Urinalysis macro (dipstick) panel (U)on 12-04-2024 Bilirubin, UA Negative Negative - 4(70) +++ mg/dL [facility] Blood, UA Negative Negative - 50 Celestino/mcL [facility] Clarity, UA Clear [facility] Color, UA Yellow [facility] Glucose, UA Negative Negative - 1999(110) ++++ mg/dL [facility] Interpretation and review of laboratory results Normal [facility] Ketones, UA Negative Negative - 160(16) ++++ mg/dL [facility] Leukocytes, UA Positive Negative - 500+++ Dodie/mcL [facility] Comment on above: small Nitrite, UA Negative Negative - Positive [facility] pH, UA 7 5 - 9 [facility] Protein, UA Negative Negative - 1999(20) ++++ mg/dL [facility] Spec Grav, UA 1.015 1 - 1.03 [facility] Urobilinogen, UA 0.2 0.2 - 12 mg/dL [facility] Glucose random or fasting- P OCTOrdered By: James Rader on 11-24-2024 External Glucose Fasting Or Random (Fbs) 94 [facility] Urinalysis macro (dipstick) panel (U)on 11-13-2024 Bilirubin, UA Negative Negative - 4(70) +++ mg/dL [facility] Blood, UA Negative Negative - 50 Celestino/mcL [facility] Clarity, UA Clear [facility] Color, UA Yellow [facility] Glucose, UA Negative Negative - 1999(110) ++++ mg/dL [facility] Interpretation and review of laboratory results Abnormal [facility] Ketones, UA Negative Negative - 160(16) ++++ mg/dL [facility] Leukocytes, UA Trace Negative - 500+++ Dodie/mcL [facility] Nitrite, UA Negative Negative - Positive [facility] pH, UA 6 5 - 9 [facility] Protein, UA Negative Negative - 1999(20) ++++ mg/dL [facility] Spec Grav, UA 1.01 1 - 1.03 [facility] Urobilinogen, UA 0.2 0.2 - 12 mg/dL [facility] BOX TESTon 11-11-2024 BOX TEST SENT OUT [employer] [facility] BOX[address] unity [facility] BOX2 11/11/24 [facility] UN[facility] HCG ( test) Ql (U)o n 10-16-2024 Interpretation and review of laboratory results Abnormal [facility] Preg Test, Ur Positive Negative [facility] US OB TRANSVAGINALon 025 US [...] II, MD, PHD at 16-Oct-2024 11:21:08 PM [facility] Normal Not Available Comment on above: [...] II, MD, PHD at 16-Oct-2024 11:21:08 PM [facility] IMAGING Ekaterina French MD - 10/16/2024 [...] II, MD, PHD at 16-Oct-2024 11:21:08 PM [facility] Radiology Study observation (narrative) [facility] US Pelvis transvaginalOrdere d By: Ekaterina French on 10-16-2024 [facility] Work Phone: Urinalysis macro (dipstick) panel (U)on 10-16-2024 Bilirubin, UA Negative Negative - 4(70) +++ mg/dL [facility] Blood, UA Negative Negative - 50 Celestino/mcL [facility] Clarity, UA Clear [facility] re Color, UA Yellow [facility] [employer] [facility] Glucose, UA Negative Negative - 1999(110) ++++ mg/dL [facility] Interpretation and review of laboratory results Abnormal [facility] Ketones, UA Positive Negative - 160(16) ++++ mg/dL [facility] Comment on above: 80mg/dL Leukocytes, UA Positive Negative - 500+++ Dodie/mcL [facility] Comment on above: small Nitrite, UA Negative Negative - Positive [facility] pH, UA 5.5 5 - 9 [facility] [employer] e Protein, UA Positive Negative - 2000(20) ++++ mg/dL [facility] Comment on above: 30mg/dL Spec Grav, UA 1.03 1 - 1.03 [facility] Urobilinogen, UA 0.2 0.2 - 12 mg/dL [facility] HGB AND HCTon 12-21-2023 Hematocrit (Bld) [Volume fraction] 28.7 % Low 35-47 [facility] Comment on above: Performed By: #### H H #### [facility] ([id number]) [address] [place] [address], [place] [address] Hemoglobin (Bld) [Mass/Vol] 9.8 g/dL Low 11.7-15.5 [facility] Comment on above: Performed By: #### H H #### [facility] ([id number]) [address] [facility], [place] [address] Surgical Pathologyon 024 Surgical Pathology Normal [facility] Comment on above: Result Comment: [facility] [address] [place] [address] Surgical Pathology Consultation Patient Name:SYDNIE MOSQUEDAB:1990 (Age: 33)Gender:FTaken:12/21/2023eported:12/28/2023hysician(s):Randy Greene MD ([phone])Copy To: Rec. #:[id number]: #[id number] Final Pathologic Diagnosis Products of conception; removal: Products of conception (gestational sac with immature chorionic villi) and fragments of decidua with acute inflammation and necrosis. Report Electronically Signed Out adalberto/12/28/2023Pradeep Brannon MD Interpretation performed at [facility], [address] [place] [address], License number: [id number]. Clinical History Spontaneous , miscarriage. Gross Description Received in formalin labeled PANDA Karyotype: No Aggregate measurement: 5.2 x 3.8 x 2.0 cm. Placenta: 3.4 x 2.8 x 1.5 cm Decidua/Clot: 1.8 x 1.0 x 0.5 cm Gestational Sac: Yes, intact Tissue: No Molar Tissue: No Cassettes: A-C placenta (3, ss, [id number],m5) DM Received fresh-no site on container. POC for routine surgical path. Per Ariana pierson/12/21/2023GR Specimen(s) Received Products of conception Fee Codes(s): 1; 48868 US PREG LESS THAN 14 WKS WIT [...] Monroy MD on 12/21/2023 8:46 AM Normal [facility] BASIC METABOLIC PANLon 12-19 Anion gap [Moles/Vol] 6 mmol/L Normal 5-15 [facility] Comment on above: Performed By: #### B CHETAN NORWOOD, #### [facility] ([id number]) [address] [place] [address] Calcium [Mass/Vol] 8.9 mg/dL Normal 8.5-10.5 [facility] Comment on above: Performed By: #### B CHETAN NORWOOD, #### [facility] ([id number]) [address] [place] [address] Chloride [Moles/Vol] 105 mmol/L Normal 98-109 [facility] Comment on above: Performed By: #### B CHETAN NORWOOD, #### [facility] ([id number]) [address] [place] [address] CO2 [Moles/Vol] 24 mmol/L Normal 22-32 [facility] Comment on above: Performed By: #### B CHETAN NORWOOD, #### [facility] ([id number]) [address] [place] [address] Creatinine [Mass/Vol] 0.74 mg/dL Normal 0.40-1.00 [facility] Comment on above: Result Comment: METH OD TRACEABLE TO IDMS STANDARD Performed By: #### B CHETAN NORWOOD, #### [facility] ([id number]) [address] [place] [address] eGFR (CKD-EPI) NON-RACE DEPENDENT >90 Normal >59 [facility] Comment on above: Result Comment: Reported eGFR is based on the CKD-EPI 2020 equation that does not use a race coefficient. Performed By: #### B CHETAN NORWOOD, #### [facility] ([id number]) [address] [place] [address] Glucose [Mass/Vol] 149 mg/dL High 65-99 [facility] Comment on above: Performed By: #### B CHETAN NORWOOD, #### [facility] ([id number]) [address] [place] [address] Potassium [Moles/Vol] 3.6 mmol/L Normal 3.5-5.0 [facility] Comment on above: Performed By: #### B CHETAN NORWOOD, #### [facility] ([id number]) [address] [place] [address] Sodium [Moles/Vol] 135 mmol/L Normal 134-146 [facility] Comment on above: Performed By: #### B CHETAN NORWOOD, #### [facility] ([id number]) [address] [place] [address] Urea nitrogen [Mass/Vol] 10 mg/dL Normal 5-23 [facility] Comment on above: Performed By: #### B MP, CBCA, #### [facility] ([id number]) [address] [place] [address] CBC AND AUTO DIFFon 12-20-19 24 ABSOLUTE BASOPHIL 0.0 X10E9/L Normal 0.0-0.2 [facility] Comment on above: Performed By: #### B MP, CBCA, #### [facility] ([id number]) [address] [place] [address] ABSOLUTE NEUTROPHIL 4.9 X10E9/L Normal 1.5-6.6 [facility] Comment on above: Performed By: #### B MP, CBCA, #### [facility] ([id number]) [address] [place] [address] Basophils/100 WBC (Bld) 0.4 % Normal [facility] Comment on above: Performed By: #### B MP, CBCA, #### [facility] ([id number]) [address] [place] [address] Eosinophils (Bld) [#/Vol] 0.3 10*3/uL Normal 0.0-0.4 [facility] Comment on above: Performed By: #### B MP, CBCA, #### [facility] ([id number]) [address] [place] [address] Eosinophils/100 WBC (Bld) 2.3 % Normal [facility] Comment on above: Performed By: #### B MP, CBCA, #### [facility] ([id number]) [address] [place] [address] Erythrocyte distribution width (RBC) [Ratio] 13.8 % Normal 11.5-15.0 [facility] Comment on above: Performed By: #### B CUCO, CBCA, #### [facility] ([id number]) [address] [place] [address] Hematocrit (Bld) [Volume fraction] 34.8 % Low 35-47 [facility] Comment on above: Performed By: #### B CUCO, CBCA, #### [facility] ([id number]) [address] [place] [address] Hemoglobin (Bld) [Mass/Vol] 11.5 g/dL Low 11.7-15.5 [facility] Comment on above: Performed By: #### B CUCO, CBCA, #### [facility] ([id number]) [address] [place] [address] Lymphocytes (Bld) [#/Vol] 4.6 10*3/uL High 1.0-3.5 [facility] Comment on above: Performed By: #### B CUCO, CBCA, #### [facility] ([id number]) [address] [place] [address] Lymphocytes/100 WBC (Bld) 41.7 % Normal [facility] Comment on above: Performed By: #### B CUCO, CBCA, #### [facility] ([id number]) [address] [place] [address] MCH (RBC) [Entitic mass] 27.8 pg Normal 27-34 [facility] Comment on above: Performed By: #### B MP, CBCA, #### [facility] ([id number]) [address] [place] [address] MCHC (RBC) [Mass/Vol] 33.0 g/dL Normal 32-36 [facility] Comment on above: Performed By: #### B CUCO, CBCA, #### [facility] ([id number]) [address] [place] [address] MCV (RBC) [Entitic vol] 84 fL Normal 80-100 [facility] Comment on above: Performed By: #### B CUCO, CBCA, #### [facility] ([id number]) [address] [place] [address] Monocytes (Bld) [#/Vol] 1.2 10*3/uL High 0-0.9 [facility] Comment on above: Performed By: #### B CUCO, CBCA, #### [facility] ([id number]) [address] [place] [address] 12850 Monocytes/100 WBC (Bld) 11.1 % Normal [facility] Comment on above: Performed By: #### B CUCO, CBCA, #### [facility] ([id number]) [address] [place] [address] 44276 Neutrophils/100 WBC (Bld) 44.5 % Normal [facility] Comment on above: Performed By: #### B CUCO, CBCA, #### [facility] ([id number]) [address] [place] [address] 18823 Platelet mean volume (Bld) [Entitic vol] 7.6 fL Normal 7-12 [facility] Comment on above: Performed By: #### B CUCO, CBCA, #### [facility] ([id number]) [address] [place] [address] 66097 Platelets (Bld) [#/Vol] 323 10*3/uL Normal 150-450 [facility] Comment on above: Performed By: #### B MP, CBCA, #### [facility] ([id number]) [address] [place] [address] 15919 RBC COUNT 4.12 X10E12/L Normal 3.80-5.20 [facility] Comment on above: Performed By: #### B MP, CBCA, #### [facility] ([id number]) [address] [place] [address] 46352 WBC (Bld) [#/Vol] 11.0 10*3/uL Normal 4.0-11.0 [facility] Comment on above: Performed By: #### B MP, CBCA, #### [facility] ([id number]) [address] [place] [address] 22485 HCG.beta subunit IA 3rd IS Q non 12-20-2023 HCG.beta subunit Qn 5361 m[IU]/mL Normal [facility] Comment on above: Result Comment: [...] neoplasms. Performed By: #### B MP, CBCA, #### [facility] ([id number]) [address] [place] [address] 47748 HCG ( test) Ql (U)o n 12-19-2023 Beta HCG ( test) Ql (U) Positive Abnormal NEG [facility] Comment on above: Performed By: #### 2 106-3 #### [facility] ([id number]) [address] [place] [address] 27344 HCG.beta subunit IA 3rd IS Q non 12-19-2023 HCG.beta subunit Qn 6620 m[IU]/mL Normal [facility] Comment on above: Result Comment: NEW REFERENCE [...] neoplasms. Performed By: #### 2 0415-6 #### [facility] ([id number]) [address] [place] [address] 81215 URN MACROSCOPIC NURon 2023 BILIRUBIN NIKITA Small Abnormal NEG [facility] Comment on above: Performed By: #### N UM #### [facility] ([id number]) [address] [place] [address] 80224 BLOOD/HGB NIKITA Large Abnormal NEG [facility] Comment on above: Performed By: #### N UM #### [facility] ([id number]) [address] [place] [address] 70135 GLUCOSE NIKITA Negative Normal NEG [facility] Comment on above: Performed By: #### N UM #### [facility] ([id number]) [address] [place] [address] 20121 KETONES NIKITA Trace Abnormal NEG [facility] Comment on above: Performed By: #### N UM #### [facility] ([id number]) [address] [place] [address] 27746 LEUKOCYTE ESTERASE NIKITA Negative Normal NEG [facility] Comment on above: Performed By: #### N UM #### [facility] ([id number]) [address] [place] [address] 35837 NITRITE NIKITA Negative Normal NEG [facility] Comment on above: Performed By: #### N UM #### [facility] ([id number]) [address] [place] [address] 35582 PH NIKITA 6.0 Normal 5.0-8.5 [facility] Comment on above: Performed By: #### N UM #### [facility] ([id number]) [address] [place] [address] 67530 PROTEIN NIKITA 100 mg/dL Abnormal NEG [facility] Comment on above: Performed By: #### N UM #### [facility] ([id number]) [address] [place] [address] 94824 SPECIFIC GRAVITY NIKITA >=1.030 Normal 1.003-1.035 [facility] Comment on above: Performed By: #### N UM #### [facility] ([id number]) [address] [place] [address] 58659 UROBILINOGEN NIKITA 1.0 eu/dL Normal <1.1 [facility] Comment on above: Performed By: #### N UM #### [facility] ([id number]) [address] [place] [address] 50670 US PREG LESS THAN 14 WKS WIT [...] Overton MD on 12/19/2023 6:46 PM Normal [facility] Chlamydia/GC/Trich NAAon Chlamydia Trachomotis, CARLITOS Negative Normal Negative [facility] Comment on above: Performed By: #### C UU #### [facility] [address] [place] [address] [place] #### GCCHLAMTRI #### [facility] , Neisseria Gonorrhoeae, CARLITOS Negative Normal Negative [facility] Comment on above: Performed By: #### C UU #### [facility] [address] [place] [address] [place] #### GCCHLAMTRI #### [facility] , Trichomonas CARLITOS Negative Normal Negative [facility] Comment on above: Result Comment: Perf ormed at: =G - [facility] [place] [address] W [id number] Emergency Physician: Cindy Pinzon MD, Phone: [phone] PERFORMED BY: [place] [address] PATHOLOGIST TRAILER TRUCK DRIVER BROOKLYNN PEARCE M.D. Performed By: #### C UU #### [address] #### GCCHLAMTRI #### [facility] , Urine Cultureon 03-01-2022 Bacteria identified Cx Nom (U) 30,000 colonies/ml mixed bacterial skin contaminants 2 Days PERFORMED BY: [place] [address] PATHOLOGIST TRAILER TRUCK DRIVER BROOKLYNN PEARCE M.D. Normal [facility] Comment on above: Performed By: #### C UU #### [address] #### GCCHLAMTRI #### [facility] , Pap IG,rfx Aptima HPV all pt hon 11-16-2021 . . Normal [facility] Comment on above: Performed By: #### H IV12 #### [facility] [address] [address] Andriy Stein DIAGNOSIS: Comment Normal [facility] Comment on above: Result Comment: NEGA TIVE FOR INTRAEPITHELIAL LESION OR MALIGNANCY. THIS SPECIMEN WAS RESCREENED PART OF OUR CHIMNEY MECHANIC PROGRAM. Performed By: #### H IV12 #### [facility] [address] [id number] Andriy Stein Methodology: Comment [facility] Comment on above: Result Comment: This liquid based ThinPrep(R) pap test was screened with the use of an image guided system. Performed By: #### H IV12 #### [facility] [address] [address] Andriy Stein Note: Comment [facility] Comment on above: Result Comment: The Pap smear is a screening test designed to aid in the detection of premalignant and malignant conditions of the uterine cervix. It is not a diagnostic procedure and should not be used as the sole means of detecting cervical cancer. Both false-positive and false-negative reports do occur. . Performed By: #### H IV12 #### [facility] [address] [place] [address] Andriy Stein Performed by: Comment Normal [facility] Comment on above: Result Comment: Nathalia Dela Cruz, Fee Clerk (ASCP) Performed By: #### H IV12 #### [facility] [address] [place] [address] Andriy Stein QC reviewed by: Comment Normal [facility] Comment on above: Result Comment: Hebert Motley, Supervisory Fee Clerk (ASCP) Performed By: #### H IV12 #### [facility] [address] [place] [address] Andriy Stein Reflex Criteria: Comment Normal [facility] Comment on above: Result Comment: The HPV DNA reflex criteria were not met with this specimen result therefore, no HPV testing was performed. . Performed By: #### H IV12 #### [facility] [address] [place] [address] Andriy Stein Specimen adequacy: Comment Normal [facility] Comment on above: Result Comment: Sati sfactory for evaluation. Endocervical and/or squamous metaplastic cells (endocervical component) are present. Performed By: #### H IV12 #### [facility] [address] [place] [address] Andriy Stein CBC AUTO DIFFon 07-31-2021 BASO # 0.0 103/ul Normal 0.0-0.1 [facility] Comment on above: Performed By: #### H IV12 #### [facility] [address] [place] [address] Andriy Stein Basophils/100 WBC (Bld) 0.2 % Normal 0.2-2.0 [facility] Comment on above: Performed By: #### H IV12 #### [facility] [address] [place] [address] Andriy Sarita EO # 0.2 103/ul Normal 0.0-0.7 [facility] Comment on above: Performed By: #### H IV12 #### [facility] [address] [address] Andriy Sarita Eosinophils/100 WBC (Bld) 1.4 % Normal 0.9-7.0 [facility] Comment on above: Performed By: #### H IV12 #### [facility] [address] [address] Andriy Sarita Erythrocyte distribution width (RBC) [Ratio] 16.9 % Critically high 11.0-15.0 [facility] Comment on above: Performed By: #### H IV12 #### [facility] [address] [place] [address] Andriy Sarita Hematocrit (Bld) [Volume fraction] 28.9 % Critically low 36.0-48.0 [facility] Comment on above: Performed By: #### H IV12 #### [facility] [address] [place] [address] Andriy Sarita Hemoglobin (Bld) [Mass/Vol] 9.2 g/dL Critically low 12.0-16.0 [facility] Comment on above: Result Comment: NUVIA ENT DELIVERED Performed By: #### H IV12 #### [facility] [address] [place] [address] Andriy Sarita IG # 0.07 10e3/ul Critically high 0.00-0.03 [facility] Comment on above: Performed By: #### H IV12 #### [facility] [address] [place] [address] Andriy Sarita IG % 0.7 % Critically high 0.0-0.5 [facility] Comment on above: Performed By: #### H IV12 #### [facility] [address] [place] [address] Andriy Sarita LYMPH # 3.2 103/ul Normal 1.2-3.8 [facility] Comment on above: Performed By: #### H IV12 #### [facility] [address] [place] [address] Andriy Sarita Lymphocytes/100 WBC (Bld) 29.7 % Normal 20.5-60.0 [facility] Comment on above: Performed By: #### H IV12 #### [facility] [address] [place] [address] Andriy Stein MANUAL DIFF REQ NO Normal [facility] Comment on above: Performed By: #### H IV12 #### [facility] [address] [place], [place] [id number] Andriy Sarita MCH (RBC) [Entitic mass] 28.0 pg Normal 26.7-34.0 [facility] Comment on above: Performed By: #### H IV12 #### [facility] [address] [place] [address] Andriy Stein MCHC (RBC) [Mass/Vol] 31.8 g/dL Normal 29.9-35.2 [facility] Comment on above: Performed By: #### H IV12 #### [facility] [address] [place] [address] Andriy Sarita MCV (RBC) [Entitic vol] 87.8 fL Normal 81.0-99.0 [facility] Comment on above: Performed By: #### H IV12 #### [facility] [address] [place] [address] Andriy Stein MONO # 0.9 103/ul Critically high 0.3-0.8 [facility] Comment on above: Performed By: #### H IV12 #### [facility] [address] [place] [address] Andriy Stein Monocytes/100 WBC (Bld) 8.3 % Normal 1.7-12.0 [facility] Comment on above: Performed By: #### H IV12 #### [facility] [address] [place], [place] [id number] Andriy Sarita NEUT # 6.3 103/ul Normal 1.4-6.5 [facility] Comment on above: Performed By: #### H IV12 #### [facility] [address] [place] [address] Andriy Stein Neutrophils/100 WBC (Bld) 59.7 % Normal 43.0-75.0 [facility] Comment on above: Performed By: #### H IV12 #### [facility] [address] [place] [address] Andriy Stein Platelet mean volume (Bld) [Entitic vol] 9.7 fL Normal 9.5-13.5 [facility] Comment on above: Performed By: #### H IV12 #### [facility] [address] [place] [address] Andriy Stein PLT 173 103/ul Normal 150-450 [facility] Comment on above: Performed By: #### H IV12 #### [facility] [address] [place] [address] Andriy Stein RBC 3.29 106/ul Critically low 4.20-5.40 [facility] Comment on above: Performed By: #### H IV12 #### [facility] [address] [place] [address] Andriy Stein WBC 10.6 103/ul Normal 4.0-11.0 [facility] Comment on above: Performed By: #### H IV12 #### [facility] [address] [place], [place] [id number] Andriy Stein ASYMPTOMATIC COVID-19 ANTIGE Non 07-30-2021 EUA Statement SEE BELOW Normal [facility] [place] Comment on above: Result Comment: This test [...] sooner. Performed By: #### H BSANS #### [facility] [address] [place] [address] Andriy Stein SARS-CoV-2 (COVID-19) RNA CARLITOS+probe Ql (Unsp spec) Negative Normal NEGATIVE [facility] Comment on above: Result Comment: Nega tive results are presumptive. They do not preclude infection and should not be used as the sole basis for treatment decisions. Additional confirmatory testing by a molecular method should be considered. Performed By: #### H BSANS #### [facility] [address] [place] [address] Andriy Stein CBC AUTO DIFFon 07-30-2021 BASO # 0.0 103/ul Normal 0.0-0.1 [facility] Comment on above: Performed By: #### C BC ####[facility] [address] [address]Dr. Sunil Conner Basophils/100 WBC (Bld) 0.2 % Normal 0.2-2.0 [facility] Comment on above: Performed By: #### C BC ####[facility] [address] [address]Dr. Sunil Conner EO # 0.1 103/ul Normal 0.0-0.7 [facility] Comment on above: Performed By: #### C BC ####[facility] [address] [address]Dr. Sunil Conner Eosinophils/100 WBC (Bld) 1.0 % Normal 0.9-7.0 [facility] Comment on above: Performed By: #### C BC ####[facility] [address] [address]Dr. Sunil Conner Erythrocyte distribution width (RBC) [Ratio] 17.0 % Critically high 11.0-15.0 [facility] Comment on above: Performed By: #### C BC ####[facility] [address] [place], [place] [address]Dr. Sunil Conner Hematocrit (Bld) [Volume fraction] 37.5 % Normal 36.0-48.0 [facility] Comment on above: Performed By: #### C BC ####[facility] [address] [id number]. Sunil Conner Hemoglobin (Bld) [Mass/Vol] 12.3 g/dL Normal 12.0-16.0 [facility] Comment on above: Performed By: #### C BC ####[facility] [address] [id number]. Sunil Conner IG # 0.05 10e3/ul Critically high 0.00-0.03 [facility] Comment on above: Performed By: #### C BC ####[facility] [address] [address]Dr. Sunil Conner IG % 0.5 % Normal 0.0-0.5 [facility] Comment on above: Performed By: #### C BC ####[facility] [address] [address]Dr. Sunil Conner LYMPH # 2.8 103/ul Normal 1.2-3.8 [facility] Comment on above: Performed By: #### C BC ####[facility] [address] [id number]. Sunil Conner Lymphocytes/100 WBC (Bld) 28.4 % Normal 20.5-60.0 [facility] Comment on above: Performed By: #### C BC ####[facility] [address] [id number]. Sunil Conner MANUAL DIFF REQ NO Normal [facility] Comment on above: Performed By: #### C BC ####[facility] [address] [id number]. Sunil Conner MCH (RBC) [Entitic mass] 28.5 pg Normal 26.7-34.0 [facility] Comment on above: Performed By: #### C BC ####[facility] [address] [id number]. Sunil Conner MCHC (RBC) [Mass/Vol] 32.8 g/dL Normal 29.9-35.2 [facility] Comment on above: Performed By: #### C BC ####[facility] [address] [id number]. Sunil Conner MCV (RBC) [Entitic vol] 86.8 fL Normal 81.0-99.0 [facility] Comment on above: Performed By: #### C BC ####[facility] [address] [id number]. Sunil Conner MONO # 0.8 103/ul Normal 0.3-0.8 [facility] Comment on above: Performed By: #### C BC ####[facility] [address] [place], [place] [address]Dr. Sunil Conner Monocytes/100 WBC (Bld) 7.9 % Normal 1.7-12.0 [facility] Comment on above: Performed By: #### C BC ####[facility] [address] [place], [place] [address]Dr. Sunil Conner NEUT # 6.0 103/ul Normal 1.4-6.5 [facility] Comment on above: Performed By: #### C BC ####[facility] [address] [place], [place] [address]Dr. Sunil Conner Neutrophils/100 WBC (Bld) 62.0 % Normal 43.0-75.0 [facility] Comment on above: Performed By: #### C BC ####[facility] [address] [place], [place] [address]Dr. Sunil Conner Platelet mean volume (Bld) [Entitic vol] 10.2 fL Normal 9.5-13.5 [facility] Comment on above: Performed By: #### C BC ####[facility] [address] [place], [place] [address]Dr. Sunil Ubaldo PLT 207 103/ul Normal 150-450 [facility] Comment on above: Performed By: #### C BC ####[facility] [address] [place], [place] [address]Dr. Chelsiebriana Ubaldo RBC 4.32 106/ul Normal 4.20-5.40 [facility] Comment on above: Performed By: #### C BC ####[facility] [address] [id number]. Sunil Conner WBC 9.7 103/ul Normal 4.0-11.0 [facility] Comment on above: Performed By: #### C BC ####[facility] [address] [address]Dr. Sunil Conner DRUG SCREEN RAPID (URINE)on 07-30-2021 AMP Negative Normal NEGATIVE [facility] Comment on above: Performed By: #### D RUGRPD ####[facility] [address] [address]Dr. Sunil Conner BAR Negative Normal NEGATIVE [facility] Comment on above: Performed By: #### D RUGRPD ####[facility] [address] [address]Dr. Sunil Conner BUP Negative Normal NEGATIVE [facility] Comment on above: Performed By: #### D RUGRPD ####[facility] [address] [place], [place] [address]Dr. Sunil Conner BZO Negative Normal NEGATIVE [facility] Comment on above: Performed By: #### D RUGRPD ####[facility] [address] [address]Dr. Sunil Conner TAMICA Negative Normal NEGATIVE [facility] Comment on above: Performed By: #### D RUGRPD ####[facility] [address] [place], [place] [address]Dr. Sunil Conner CUT-OFFS SEE BELOW Normal [facility] Comment on above: Result Comment: AMP (Amphetamine): 500ng/mL, BAR (Barbituates): 200 ng/mL, BZO (Benzodiazepines): 150 ng/mL, BUP (Buprenorphine): 10 ng/mL, TAMICA (Cocaine): 150 ng/mL, mAMP (Methamphetamine): 500 ng/mL, MTD (Methadone): 200 ng/mL, OPI (Opiates): 100 ng/mL, OXY (Oxycodone): 100 ng/mL, PCP (Phencyclidine): 25 ng/mL, PPX (Propoxyphene): 300 ng/mL, THC (Cannabinoids): 50 ng/mL, TCA (Trycyclic Antidepressants): 300 ng/mL Performed By: #### D RUGRPD ####[facility] [address] [address]Dr. Sunil Conner DRUG CUT HEADER DRUG CLASS TEST SYSTEM CUT-OFF CONCENTRATIONS ARE FOLLOWS: Normal [facility] Comment on above: Performed By: #### D RUGRPD ####[facility] [address] [address]Dr. Sunil Conner mAMP Negative Normal NEGATIVE [facility] Comment on above: Performed By: #### D RUGRPD ####[facility] [address] [address]Dr. Sunil Conner MTD Negative Normal NEGATIVE [facility] Comment on above: Performed By: #### D RUGRPD ####[facility] [address] [place], [place] [address]Dr. Sunil Conner OPI Negative Normal NEGATIVE [facility] Comment on above: Performed By: #### D RUGRPD ####[facility] [address] [place], [place] [address]Dr. Sunil Conner OXY Negative Normal NEGATIVE [facility] Comment on above: Performed By: #### D RUGRPD ####[facility] [address] [place], [place] [address]Dr. Sunil Conner PCP Negative Normal NEGATIVE [facility] Comment on above: Performed By: #### D RUGRPD ####[facility] [address] [address]Dr. Sunil Conner PPX Negative Normal NEGATIVE [facility] Comment on above: Performed By: #### D RUGRPD ####[facility] [address] [address]Dr. Sunil Conner TCA Negative Normal NEGATIVE [facility] Comment on above: Performed By: #### D RUGRPD ####[facility] [address] [place], [place] [address]Dr. Sunil Conner THC Negative Normal NEGATIVE [facility] Comment on above: Performed By: #### D RUGRPD ####[facility] [address] [place], [place] [address]Dr. Sunil Conner TYPE AND SCREENon 07-30-2021 TYPE AND SCREEN Negative Normal [facility] Comment on above: Performed By: #### T NS #### [facility] [address] [place], [place] [address] Dr. Sunil Conner US PREG BIOPHY W [...] by: NADIA DOOLEY Date: 2021-07-13 10:55 Normal [facility] US PREG GROWTHon 07-11-2021 US PREG GROWTH [...] EFW: 6 lbs. 3 oz., 37% FL/AC: 0.720227 FL/BPD: 0.099348 HC/AC: 0.974366 GESTATIONAL AGE: Age by EDC: 36 weeks 4 days FAHEEM by EDC: 08/04/2021 Age by US: 35 weeks 3 days FAHEEM by US: 08/12/2021 IMPRESSION: Normal interval growth Electronically authenticated by: NADIA DOOLEY Date: 2021-07-11 10:28 Normal [facility] COVID Quick Testingon 2021 Result Negative [employer] Other Quick Strepon 07-09-2021 S. pyogenes Org specific cx Ql (Throat) Negative [facility] [employer] Other Quick Strep [facility] [employer] Other GROUP B STREP CULTUREon 06-25 S. agalactiae Ag Ql (Unsp spec) Culture Observations: NEGATIVE FOR GROUP B STREPTOCOCCUS. Normal [facility] Comment on above: Performed By: #### G BSCX #### [facility] [address] [place] [address] [address] [address] Sunil Conner PREG GROWTHon 06-20-2021 US [...] EFW: 4 lbs. 14 oz., 53% FL/AC: 0.136873 FL/BPD: 0.829463 HC/AC: 1.421293 GESTATIONAL AGE: Age by EDC: 33 weeks 4 days FAHEEM by EDC: 08/04/2021 Age by US: 33 weeks 1 day FAHEEM by US: 08/07/2021 IMPRESSION: Normal interval growth Electronically authenticated by: NADIA DOOLEY Date: 2021-06-20 11:46 Normal [facility] CBC AUTO DIFFon 06-08-2021 BASO # 0.0 103/ul Normal 0.0-0.1 [facility] Comment on above: Performed By: #### H IV12 #### [facility] [address] [place] [address] Andriy Stein Basophils/100 WBC (Bld) 0.5 % Normal 0.2-2.0 T [facility] Comment on above: Performed By: #### H IV12 #### [facility] [address] [place], [place] [id number] Andriy Sarita EO # 0.1 103/ul Normal 0.0-0.7 [facility] Comment on above: Performed By: #### H IV12 #### [facility] [address] [place] [address] Andriy Sarita Eosinophils/100 WBC (Bld) 1.3 % Normal 0.9-7.0 [facility] Comment on above: Performed By: #### H IV12 #### [facility] [address] [place] [address] Andriy Sarita Erythrocyte distribution width (RBC) [Ratio] 19.8 % Critically high 11.0-15.0 [facility] [facility] Comment on above: Performed By: #### H IV12 #### [facility] [address] [place] [address] Andriylogan Stein Hematocrit (Bld) [Volume fraction] 34.9 % Critically low 36.0-48.0 [facility] Comment on above: Performed By: #### H IV12 #### [facility] [address] [place] [address] Andriy Sarita Hemoglobin (Bld) [Mass/Vol] 11.1 g/dL Critically low 12.0-16.0 [facility] Comment on above: Performed By: #### H IV12 #### [facility] [address] [place] [address] Andriy Sarita IG # 0.04 10e3/ul Critically high 0.00-0.03 [facility] Comment on above: Performed By: #### H IV12 #### [facility] [address] [place] [address] Andriy Sarita IG % 0.5 % Normal 0.0-0.5 [facility] Comment on above: Performed By: #### H IV12 #### [facility] [address] [place] [address] Andriy Sarita LYMPH # 2.1 103/ul Normal 1.2-3.8 [facility] Comment on above: Performed By: #### H IV12 #### [facility] [address] [id number] Andriy Sarita Lymphocytes/100 WBC (Bld) 24.8 % Normal 20.5-60.0 [facility] Comment on above: Performed By: #### H IV12 #### [facility] [address] [place], [place] [id number] Andriy Sarita MANUAL DIFF REQ NO Normal [facility] Comment on above: Performed By: #### H IV12 #### [facility] [address] [place], [place] [id number] Andriy Sarita MCH (RBC) [Entitic mass] 27.5 pg Normal 26.7-34.0 [facility] Comment on above: Performed By: #### H IV12 #### [facility] [address] [place] [address] Andriy Sarita MCHC (RBC) [Mass/Vol] 31.8 g/dL Normal 29.9-35.2 [facility] Comment on above: Performed By: #### H IV12 #### [facility] [address] [place], [place] [id number] Andriy Sarita MCV (RBC) [Entitic vol] 86.6 fL Normal 81.0-99.0 [facility] Comment on above: Performed By: #### H IV12 #### [facility] [address] [place], [place] [id number] Andriy Sarita MONO # 0.7 103/ul Normal 0.3-0.8 [facility] Comment on above: Performed By: #### H IV12 #### [facility] [address] [place], [place] [id number] Andriy Sarita Monocytes/100 WBC (Bld) 8.7 % Normal 1.7-12.0 [facility] Comment on above: Performed By: #### H IV12 #### [facility] [address] [place], [place] [id number] Andriy Sarita NEUT # 5.4 103/ul Normal 1.4-6.5 [facility] Comment on above: Performed By: #### H IV12 #### [facility] [address] [address] Andriylogan Stein Neutrophils/100 WBC (Bld) 64.2 % Normal 43.0-75.0 [facility] Comment on above: Performed By: #### H IV12 #### [facility] [address] [address] Andriylogan Stein Platelet mean volume (Bld) [Entitic vol] 9.9 fL Normal 9.5-13.5 [facility] Comment on above: Performed By: #### H IV12 #### [facility] [address] [id number] Andriy Sarita PLT 232 103/ul Normal 150-450 [facility] Comment on above: Performed By: #### H IV12 #### [facility] [address] [address] Andriy Sarita RBC 4.03 106/ul Critically low 4.20-5.40 [facility] Comment on above: Performed By: #### H IV12 #### [facility] [address] [address] Andriy Sarita WBC 8.5 103/ul Normal 4.0-11.0 [facility] Comment on above: Performed By: #### H IV12 #### [facility] [address] [id number] Andriylogan Stein GTT 3 HR PREGon 04-30-2021 Glucose [Mass/Vol] 85 mg/dL Normal 74-106 [facility] Comment on above: Performed By: #### G TT3P ####[facility] [id number] [address]Dr. Yilan Conner Glucose [Mass/Vol] 188 mg/dL Normal [facility] Comment on above: Performed By: #### G TT3P ####[facility] [id number] [address]Dr. Yilan Conner Glucose [Mass/Vol] 133 mg/dL Normal [facility] Comment on above: Performed By: #### G TT3P ####[facility] [id number] [id number]. Sunil Conner Glucose [Mass/Vol] 122 mg/dL Normal [facility] Comment on above: Performed By: #### G TT3P ####[facility] [id number] [id number]. Sunil Conner CBC AUTO DIFFon 04-28-2021 BASO # 0.0 103/ul Normal 0.0-0.1 [facility] Comment on above: Performed By: #### C BC #### [facility] [address] [address] [address] Sunil Conner Basophils/100 WBC (Bld) 0.3 % Normal 0.2-2.0 [facility] Comment on above: Performed By: #### C BC #### [facility] [address] [place] [address] Dr. Sunil Conner EO # 0.1 103/ul Normal 0.0-0.7 [facility] Comment on above: Performed By: #### C BC #### [facility] [address] [place] [address] Dr. Sunil Conner Eosinophils/100 WBC (Bld) 1.2 % Normal 0.9-7.0 [facility] Comment on above: Performed By: #### C BC #### [facility] [address] [place] [address] Dr. Sunil Conner Erythrocyte distribution width (RBC) [Ratio] 14.6 % Normal 11.0-15.0 [facility] Comment on above: Performed By: #### C BC #### [facility] [address] [place] [address] Dr. Sunil Conner Hematocrit (Bld) [Volume fraction] 31.6 % Critically low 36.0-48.0 [facility] Comment on above: Performed By: #### C BC #### [facility] [address] [place] [address] Dr. Sunil Conner Hemoglobin (Bld) [Mass/Vol] 9.9 g/dL Critically low 12.0-16.0 [facility] Comment on above: Performed By: #### C BC #### [facility] [address] [address] [address] Sunil Conner IG # 0.05 10e3/ul Critically high 0.00-0.03 [facility] Comment on above: Performed By: #### C BC #### [facility] [address] [address] [address] Sunil Conner IG % 0.5 % Normal 0.0-0.5 [facility] Comment on above: Performed By: #### C BC #### [facility] [address] [place] [address] Dr. Sunil Conner LYMPH # 2.4 103/ul Normal 1.2-3.8 [facility] Comment on above: Performed By: #### C BC #### [facility] [address] [place] [address] Dr. Sunil Conner Lymphocytes/100 WBC (Bld) 25.6 % Normal 20.5-60.0 [facility] Comment on above: Performed By: #### C BC #### [facility] [address] [place] [address] Dr. Sunil Conner MANUAL DIFF REQ NO Normal [facility] Comment on above: Performed By: #### C BC #### [facility] [address] [place] [address] Dr. Sunil Conner MCH (RBC) [Entitic mass] 25.8 pg Critically low 26.7-34.0 [facility] Comment on above: Performed By: #### C BC #### [facility] [address] [place] [address] Dr. Sunil Conner MCHC (RBC) [Mass/Vol] 31.3 g/dL Normal 29.9-35.2 [facility] Comment on above: Performed By: #### C BC #### [facility] [address] [place] [address] Dr. Sunil Conner MCV (RBC) [Entitic vol] 82.3 fL Normal 81.0-99.0 [facility] Comment on above: Performed By: #### C BC #### [facility] [address] [place], [place] [id number] Dr. Sunil Conner MONO # 0.5 103/ul Normal 0.3-0.8 [facility] Comment on above: Performed By: #### C BC #### [facility] [address] [place] [address] Dr. Sunil Conner Monocytes/100 WBC (Bld) 5.3 % Normal 1.7-12.0 [facility] Comment on above: Performed By: #### C BC #### [facility] [address] [place] [address] Dr. Sunil Conner NEUT # 6.4 103/ul Normal 1.4-6.5 [facility] Comment on above: Performed By: #### C BC #### [facility] [address] [place] [address] Dr. Sunil Conner Neutrophils/100 WBC (Bld) 67.1 % Normal 43.0-75.0 [facility] Comment on above: Performed By: #### C BC #### [facility] [address] [place] [address] Dr. Sunil Conner Platelet mean volume (Bld) [Entitic vol] 10.3 fL Normal 9.5-13.5 [facility] Comment on above: Performed By: #### C BC #### [facility] [address] [place] [address] Dr. Sunil Conner PLT 255 103/ul Normal 150-450 [facility] Comment on above: Performed By: #### C BC #### [facility] [address] [place] [address] Dr. Sunil Conner RBC 3.84 106/ul Critically low 4.20-5.40 [facility] Comment on above: Performed By: #### C BC #### [facility] [address] [place] [address] Dr. Sunil Conner WBC 9.5 103/ul Normal 4.0-11.0 [facility] Comment on above: Performed By: #### C BC #### [facility] [address] [place] [address] Dr. Sunil Conner GLUCOSE - 1HRon 04-28-2021 Glucose [Mass/Vol] 171 mg/dL Critically high 74-106 T [facility] Comment on above: Performed By: #### H IV12 #### [facility] [address] [address] Andriy Stein VAGINITIS/VAGINOSIS DNA PROB [place] 04-21-2021 Kena species Positive Abnormal Negative [facility] Comment on above: Performed By: #### V AGINT #### [facility] [address] [address] [address] Sunil Conner Gardnerella vaginalis Negative Normal Negative [facility] Comment on above: Performed By: #### V AGINT #### [facility] [address] [address] [address] Sunil Conner Trichomonas vaginalis Negative Normal Negative [facility] Comment on above: Performed By: #### V AGINT #### [facility] [address] [address] [address] Sunil Conner US PREG ANATOMY SINGLEon [...] weeks 3 days EFW:12 ounces, 47%; FL/AC: 0.249144 FL/BPD: 0.524269 HC/AC: 1.713310 GESTATIONAL AGE: Age by EDC: 20 weeks 4 days FAHEEM by EDC: 08/04/2021 Age by current US: 20 weeks 2 days FAHEEM by current US: 08/06/2021 IMPRESSION: Normal anatomy scan *Reference: [employer] Practice Guideline for the performance of Obstetric Ultrasound Examinations, March 25, 2007. Electronically authenticated by: NADIA DOOLEY Date: 2021-03-21 16:13 Normal [facility] PAP ACOG PANEL 3: 21 to 29on 02-21-2021 . . Normal [facility] Comment on above: Result Comment: Perf ormed at: WB Performed By: #### H IV12 #### [facility] [address] [place] [address] Andriy Stein Age Gdln ACOG Testing - Normal [facility] Comment on above: Performed By: #### H IV12 #### [facility] [address] [place] [address] Andriy Stein Chlamydia, Nuc. Acid Amp Negative Normal Negative [facility] Comment on above: Result Comment: Perf ormed at: =G Performed By: #### H IV12 #### [facility] [address] [place] [address] Andriy Stein DIAGNOSIS: Comment Abnormal [facility] Comment on above: Result Comment: EPIT HELIAL CELL ABNORMALITY. LOW-GRADE SQUAMOUS INTRAEPITHELIAL LESION (LSIL); MILD DYSPLASIA. Performed at: WB Performed By: #### H IV12 #### [facility] [address] [address] Andriy Stein Electronically signed by: Comment Normal [facility] Comment on above: Result Comment: Mayela العلي MD, Pathologist Performed at: WB Performed By: #### H IV12 #### [facility] [address] [place] [address] Andriy Stein Gonococcus, Nuc. Acid Amp Negative Normal Negative [facility] Comment on above: Result Comment: Perf ormed at: =G Performed By: #### H IV12 #### [facility] [address] [place] [address] Andriy Stein Methodology: Comment Normal [facility] Comment on above: Result Comment: This liquid based ThinPrep(R) pap test was screened with the use of an image guided system. Performed at: WB Performed By: #### H IV12 #### [facility] [address] [address] Andriy Stein Note: Comment Normal [facility] Comment on above: Result Comment: [...] WB Performed By: #### H IV12 #### [facility] [address] [address] Andriy Stein Pathologist Provided ICD10 Comment Normal [facility] Comment on above: Result Comment: [id number] Performed at: WB Performed By: #### H IV12 #### [facility] [address] [address] Andriy Stein Performed by: Comment Normal [facility] Comment on above: Result Comment: Funmi Partida, Fee Clerk (ASCP) Performed at: WB Performed By: #### H IV12 #### [facility] [address] [address] Andriy Stein Recommendation: Comment Abnormal [facility] Comment on above: Result Comment: Sugg est follow up as clinically appropriate. Performed at: WB Performed By: #### H IV12 #### [facility] [address] [address] Andriy Stein Reflex Criteria: Comment Normal [facility] Comment on above: Result Comment: The HPV DNA reflex criteria were not met with this specimen result therefore, no HPV testing was performed. . Performed at: WB Performed By: #### H IV12 #### [facility] [address] [place] [address] Andriy Stein Specimen adequacy: Comment Normal [facility] Comment on above: Result Comment: Sati sfactory for evaluation. Endocervical and/or squamous metaplastic cells (endocervical component) are present. Performed at: WB Performed By: #### H IV12 #### [facility] [address] [id number] Andriy Sarita AFP MATERNAL FOR SPINA BIFID Aon 02-19-2021 AFP MoM 1.15 Normal [facility] Comment on above: Performed By: #### H IV12 #### [facility] [address] [address] Andriy Sarita AFP Value 35.0 ng/mL Normal [facility] Comment on above: Performed By: #### H IV12 #### [facility] [address] [address] Andriylogan Stein AFP, Serum for Spina Bifida Report Normal [facility] Comment on above: Performed By: #### H IV12 #### [facility] [address] [address] Andriy Sarita Comment Comment Normal [facility] Comment on above: Result Comment: Jassi Perez, Ph.D., [facility] Director . References: Available Upon Request. . Multiples Of Median Cutoffs For AFP Elevations Beebe 2.5 Black 2.8 IDD 2.0 Twins 4.5 Abbreviation Definitions IDD - Insulin Dep Diabetes OSBR - Open Spina Bifida Risk . For further inquiries contact [facility] at [phone]. Performed By: #### H IV12 #### [facility] [address] [id number] Andriy Stein Gest Age Collection Date 16.0 weeks Normal [facility] Comment on above: Performed By: #### H IV12 #### [facility] [address] [id number] Andriylogan Stein Gestat, Age Based on Ultrasound Normal [facility] Comment on above: Result Comment: 16.0 on 02/17/2021 Recalculations are not recommended when gestational dating by LMP and ultrasound are within 10 days. Performed By: #### H IV12 #### [facility] [address] [address] Andriy Sarita Insulin Dep Diabetes No Normal [facility] Comment on above: Performed By: #### H IV12 #### [facility] [address] [place] [address] Andriy Stein Interpretation Comment Normal [facility] [...] Customer Services to discuss available options. The [employer] recommends amniocentesis be offered to women age 35 and older. Performed By: #### H IV12 #### [facility] [address] [place] [address] Andriy Stein [age] Normal [facility] Comment on above: Performed By: #### H IV12 #### [facility] [address] [place] [address] Andriy Stein Multiple Gestation No Normal [facility] Comment on above: Performed By: #### H IV12 #### [facility] [address] [place] [address] Andriy Stein OSBR Risk 1 [place] [address] [facility] Comment on above: Performed By: #### H IV12 #### [facility] [address] [place] [address] Andriy Stein PDF . Normal [facility] Comment on above: Performed By: #### H IV12 #### [facility] [address] [place] [address] Andriy Stein Race Normal [facility] Comment on above: Performed By: #### H IV12 #### [facility] [address] [place] [address] Andriy Stein Test Results: Negative Normal [facility] Comment on above: Performed By: #### H IV12 #### [facility] [address] [place] [address] Andriy Stein HEMOGLOBINOPATHY FRACTIONATI ON CASCADEon 02-07-2021 HGB A 97.3 % Normal 96.4-98.8 [facility] Comment on above: Performed By: #### H GBCAS ####[facility] [id number] [place] HGB A2 2.7 % Normal 1.8-3.2 [facility] Comment on above: Performed By: #### H GBCAS ####[facility] [id number] [place] HGB F 0.0 % Normal 0.0-2.0 [facility] Comment on above: Performed By: #### H GBCAS ####[facility] [id number] [place] HGB S 0.0 % Normal 0.0 [facility] Comment on above: Performed By: #### H GBCAS ####[facility] [id number] [place] Interpretation: Comment Normal [facility] Comment on above: Result Comment: Norm al hemoglobin present; no hemoglobin variant or thalassemia observed. Performed By: #### H GBCAS ####[facility] [id number] [place] VARICELLA IGG ABon Varicella Zoster IgG 406 index Normal Immune >165 [facility] Comment on above: Result Comment: Nega tive <135 Equivocal 135 - 165 Positive >165 A positive result generally indicates exposure to the pathogen or administration of specific immunoglobulins, but it is not indication of active infection or stage of disease. Performed By: #### V ARCEL ####[facility] [id number] [place] HEP B SURFACE ANTIGEN SCREEN on 02-06-2021 HBsAg Screen Negative Normal Negative [facility] Comment on above: Performed By: #### H BSANS #### [facility] [address] [place] HEPATITIS C ANTIBODYon 02-06 Hep C Virus Ab <0.1 Normal 0.0-0.[address] [facility] Comment on above: Result Comment: Nega tive: < 0.8 Indeterminate: 0.8 - 0.9 Positive: > 0.9 . The CDC recommends that a positive HCV antibody result be followed up with a HCV Nucleic Acid Amplification test (019309). Performed By: #### H CV ####[facility] [id number] [id number] Stein HIV 1 AND 2 WITH REFLEXon HIV Screen 4th Generation wRfx Non-Reactive Normal Non Reactive [facility] Comment on above: Performed By: #### H IV12 #### [facility] [address] [place] [address] Andriy Stein RPR QUANTon 02-06-2021 Rapid Plasma Reagin, Quant Non-Reactive Normal NonRea<1:1 [facility] Comment on above: Performed By: #### H IV12 #### [facility] [address] [place] [address] Andriy Stein RUBELLA AB IGGon 02-06-2021 Rubella Antibodies, IgG 1.72 index Normal Immune >0.99 [facility] Comment on above: Result Comment: Non- immune <0.90 Equivocal 0.90 - 0.99 Immune >0.99 Performed By: #### H IV12 #### [facility] [address] [place] [address] Andriy Stein CBC AUTO DIFFon 02-05-2021 BASO # 0.0 103/ul Normal 0.0-0.1 [facility] Comment on above: Performed By: #### H BSANS #### [facility] [address] [place] [address] Andriy Stein Basophils/100 WBC (Bld) 0.3 % Normal 0.2-2.0 [facility] Comment on above: Performed By: #### H BSANS #### [facility] [address] [place] [address] Andriy Stein EO # 0.2 103/ul Normal 0.0-0.7 [facility] Comment on above: Performed By: #### H BSANS #### [facility] [address] [place], [place] [id number] Andriy Sarita Eosinophils/100 WBC (Bld) 1.7 % Normal 0.9-7.0 [facility] Comment on above: Performed By: #### H BSANS #### [facility] [address] [place] [address] Andriy Sarita Erythrocyte distribution width (RBC) [Ratio] 14.0 % Normal 11.0-15.0 [facility] Comment on above: Performed By: #### H BSANS #### [facility] [address] [place] [address] Andriy Sarita Hematocrit (Bld) [Volume fraction] 34.3 % Critically low 36.0-48.0 [facility] Comment on above: Performed By: #### H BSANS #### [facility] [address] [place] [address] Andriy Sarita Hemoglobin (Bld) [Mass/Vol] 11.0 g/dL Critically low 12.0-16.0 [facility] Comment on above: Performed By: #### H BSANS #### [facility] [address] [place] [address] Andriy Sarita IG # 0.02 10e3/ul Normal 0.00-0.03 [facility] Comment on above: Performed By: #### H BSANS #### [facility] [address] [place] [address] Andriy Sarita IG % 0.2 % Normal 0.0-0.5 [facility] Comment on above: Performed By: #### H BSANS #### [facility] [address] [place] [address] Andriy Sarita LYMPH # 3.4 103/ul Normal 1.2-3.8 [facility] Comment on above: Performed By: #### H BSANS #### [facility] [address] [place] [address] Andriy Sarita Lymphocytes/100 WBC (Bld) 38.7 % Normal 20.5-60.0 [facility] Comment on above: Performed By: #### H BSANS #### [facility] [address] [place] [address] Andriy Stein MANUAL DIFF REQ NO Normal [facility] Comment on above: Performed By: #### H BSANS #### [facility] [address] [place], [place] [id number] Andriy Stein MCH (RBC) [Entitic mass] 27.2 pg Normal 26.7-34.0 [facility] Comment on above: Performed By: #### H BSANS #### [facility] [address] [place] [address] Andriy Stein MCHC (RBC) [Mass/Vol] 32.1 g/dL Normal 29.9-35.2 [facility] Comment on above: Performed By: #### H ANGELA #### [facility] [address] [place] [address] Andriylogan Stein MCV (RBC) [Entitic vol] 84.9 fL Normal 81.0-99.0 [facility] Comment on above: Performed By: #### H BSADOM #### [facility] [address] [place] [address] Andriy Sarita MONO # 0.7 103/ul Normal 0.3-0.8 [facility] Comment on above: Performed By: #### H BSADOM #### [facility] [address] [place] [address] Andriy Stein Monocytes/100 WBC (Bld) 8.3 % Normal 1.7-12.0 [facility] Comment on above: Performed By: #### H BSANS #### [facility] [address] [place] [address] Andriy Sarita NEUT # 4.4 103/ul Normal 1.4-6.5 [facility] Comment on above: Performed By: #### H BSANS #### [facility] [address] [place], [place] [id number] Andriy Sarita Neutrophils/100 WBC (Bld) 50.8 % Normal 43.0-75.0 [facility] Comment on above: Performed By: #### H BSADOM #### [facility] [address] [place] [address] Andriylogan Stein Platelet mean volume (Bld) [Entitic vol] 9.8 fL Normal 9.5-13.5 [facility] Comment on above: Performed By: #### H ANGELA #### [facility] [address] [id number] Andriylogan Stein PLT 248 103/ul Normal 150-450 [facility] Comment on above: Performed By: #### H ANGELA #### [facility] [address] [address] Andriy Sarita RBC 4.04 106/ul Critically low 4.20-5.40 The [facility] Comment on above: Performed By: #### H ANGELA #### [facility] [address] [address] Andriylogan Stein WBC 8.7 103/ul Normal 4.0-11.0 [facility] Comment on above: Performed By: #### H ANGELA #### [facility] [address] [address] Andriy Stein GLYCOHEMOGLOBIN A1Con 2020 ADA RECOMMENDATION ADA THERAPEUTIC TARGET 6.0 - 7.0 ACTION SUGGESTED > 7.0 Normal [facility] Comment on above: Performed By: #### A 1C ####[facility] [address] [address]Andriy Stein Glucose [Mass/Vol] 111 mg/dL Normal [facility] Comment on above: Performed By: #### A 1C ####[facility] [address] [id number] tSein HbA1c (Bld) [Mass fraction] 5.5 % Normal <=6.0 [facility] Comment on above: Performed By: #### A 1C ####[facility] [address] [address]Gerlogan Stein GTT 3 HR PREGon 02-05-2021 Glucose [Mass/Vol] 79 mg/dL Normal 74-106 The [facility] Comment on above: Performed By: #### H ANGELA #### [facility] [address] [id number] Andriy Sarita Glucose [Mass/Vol] 117 mg/dL Normal The [facility] Comment on above: Performed By: #### H BSANS #### [facility] [address] [address] Andriy Sarita Glucose [Mass/Vol] 93 mg/dL Normal The [facility] Comment on above: Performed By: #### H BSANS #### [facility] [address] [address] Andriy Sarita Glucose [Mass/Vol] 46 mg/dL Critically low Th e [facility] Comment on above: Performed By: #### H BSANS #### [facility] [address] [place] [address] Andriy Sarita TYPE AND SCREENon 02-05-2021 TYPE AND SCREEN Antibody Screen NEGATIVE Blood Bank Notes completed by [email or web address] ABO Rh Typing A Rh Positive Blood Bank Notes completed by yudelka Rosenberg [facility] Comment on above: Performed By: #### T NS #### [facility] [address] [place] [address] Andriy Sarita CULTURE URINEon 01-28-2021 CULTURE URINE Culture Observations: MODERATE GROWTH OF MIXED GENITAL HUBER. NO POTENTIAL PATHOGENS SEEN. Normal [facility] Comment on above: Performed By: #### U RCX ####[facility] [address] [address]Gerken Sarita UA RANDOM W/MICROSCOPICon BACTERIA SMALL Abnormal NONE SEEN [facility] Comment on above: Performed By: #### H BSANS #### [facility] [address] [place] [address] Andriy Sarita Bilirubin Ql (U) Negative Normal NEGATIVE The [facility] Comment on above: Performed By: #### H BSANS #### [facility] [address] [place] [address] Andriy Sarita CAST NONE SEEN Normal NONE SEEN [facility] Comment on above: Performed By: #### H BSANS #### [facility] [address] [place] [address] Andriy Sarita Clarity (U) CLEAR Normal CLEAR [facility] Comment on above: Performed By: #### H BSANS #### [facility] [address] [place] [address] Andriy Sarita Color (U) YELLOW Normal YELLOW [facility] Comment on above: Performed By: #### H BSANS #### [facility] [address] [place] [address] Andriy Sarita Crystals LM Nom (Urine sed) NONE SEEN Normal NONE SEEN [facility] Comment on above: Performed By: #### H BSANS #### [facility] [address] [place] [address] Andriy Sarita Epithelial cells LM Ql (Urine sed) FEW Abnormal NONE SEEN /RARE [facility] Comment on above: Performed By: #### H BSANS #### [facility] [address] [place] [address] Andriy Sarita Glucose Ql (U) Negative Normal NEGATIVE The [facility] Comment on above: Performed By: #### H BSANS #### [facility] [address] [place] [address] Andriy Sarita Hemoglobin Ql (U) Negative Normal NEGATIVE The [facility] Comment on above: Performed By: #### H BSANS #### [facility] [address] [place] [address] Andriy Sarita Ketones Ql (U) TRACE Abnormal NEGATIVE The [facility] Comment on above: Performed By: #### H BSANS #### [facility] [address] [place] [address] Andriy Sarita LEUKOCYTES Negative Normal NEGATIVE [facility] Comment on above: Performed By: #### H BSANS #### [facility] [address] [place] [address] Andriy Sarita MUCOUS SMALL Abnormal NONE SEEN [facility] Comment on above: Performed By: #### H BSANS #### [facility] [address] [place] [address] Andriy Sarita Nitrite Ql (U) Negative Normal NEGATIVE The [facility] Comment on above: Performed By: #### H BSANS #### [facility] [address] [place] [address] Andriy Sarita pH (U) 7.0 [pH] Normal 5-9 [facility] Comment on above: Performed By: #### H ANGELA #### [facility] [address] [place], [place] [id number] Andriy Stein RBC 0-2 Normal 0-2 [facility] Comment on above: Performed By: #### H BSANS #### [facility] [address] [id number] Andriy Stein SPEC GRAVITY 1.020 Normal 1.005-<=1.02 5 [facility] Comment on above: Performed By: #### H ANGELA #### [facility] [address] [place], [place] [id number] Andriy Stein UA PROTEIN Negative Normal NEGATIVE/ TRACE [facility] Comment on above: Performed By: #### H BSADOM #### [facility] [address] [place] [address] Andriy Stein Urobilinogen Qn (U) 0.2 {Juanito'U}/dL Normal 0.2 - 1. 0 [facility] Comment on above: Performed By: #### H BSADOM #### [facility] [address] [place], [place] [id number] Andriy Stein WBC NONE SEEN Normal NONE SEEN [facility] Comment on above: Performed By: #### H BSADOM #### [facility] [address] [place], [place] [id number] Andriy Stein BUNon 01-26-2021 Urea nitrogen [Mass/Vol] 5.0 mg/dL Critically low 7.0-17.0 [facility] Comment on above: Performed By: #### T SH, LDH, BUN, URIC, ALT, AST ####[facility] [address] [place], [place] [address]Pifama Karen CBC AUTO DIFFon 01-26-2021 BASO # 0.0 103/ul Normal 0.0-0.1 [facility] Comment on above: Performed By: #### C BC #### [facility] [address] [place], [place] [id number] Andriy Stein Basophils/100 WBC (Bld) 0.4 % Normal 0.2-2.0 [facility] Comment on above: Performed By: #### C BC #### [facility] [address] [place], [place] [id number] Andriy Sarita EO # 0.1 103/ul Normal 0.0-0.7 [facility] Comment on above: Performed By: #### C BC #### [facility] [address] [place], [place] [id number] Andriy Sarita Eosinophils/100 WBC (Bld) 1.1 % Normal 0.9-7.0 [facility] Comment on above: Performed By: #### C BC #### [facility] [address] [place] [address] Andriylogan Stein Erythrocyte distribution width (RBC) [Ratio] 14.6 % Normal 11.0-15.0 [facility] Comment on above: Performed By: #### C BC #### [facility] [address] [place] [address] Andriy Sarita Hematocrit (Bld) [Volume fraction] 34.7 % Critically low 36.0-48.0 [facility] Comment on above: Performed By: #### C BC #### [facility] [address] [place], [place] [id number] Andriy Sarita Hemoglobin (Bld) [Mass/Vol] 11.1 g/dL Critically low 12.0-16.0 [facility] Comment on above: Performed By: #### C BC #### [facility] [address] [place] [address] Andriy Sarita IG # 0.04 10e3/ul Critically high 0.00-0.03 [facility] Comment on above: Performed By: #### C BC #### [facility] [address] [place] [address] Andriy Sarita IG % 0.5 % Normal 0.0-0.5 [facility] Comment on above: Performed By: #### C BC #### [facility] [address] [place] [address] Andriy Sarita LYMPH # 2.1 103/ul Normal 1.2-3.8 [facility] Comment on above: Performed By: #### C BC #### [facility] [address] [place], [place] [address] Andriy Sarita Lymphocytes/100 WBC (Bld) 25.5 % Normal 20.5-60.0 [facility] Comment on above: Performed By: #### C BC #### [facility] [address] [place], [place] [id number] Andriy Sarita MANUAL DIFF REQ NO Normal [facility] Comment on above: Performed By: #### C BC #### [facility] [address] [place], [place] [id number] Andriy Sarita MCH (RBC) [Entitic mass] 27.2 pg Normal 26.7-34.0 [facility] Comment on above: Performed By: #### C BC #### [facility] [address] [place] [address] Andriy Sarita MCHC (RBC) [Mass/Vol] 32.0 g/dL Normal 29.9-35.2 [facility] Comment on above: Performed By: #### C BC #### [facility] [address] [place], [place] [id number] Andriy Sarita MCV (RBC) [Entitic vol] 85.0 fL Normal 81.0-99.0 [facility] Comment on above: Performed By: #### C BC #### [facility] [address] [place], [place] [id number] Andriy Sarita MONO # 0.6 103/ul Normal 0.3-0.8 [facility] Comment on above: Performed By: #### C BC #### [facility] [address] [place], [place] [id number] Andriy Sarita Monocytes/100 WBC (Bld) 7.1 % Normal 1.7-12.0 [facility] Comment on above: Performed By: #### C BC #### [facility] [address] [place], [place] [id number] Andriy Sarita NEUT # 5.3 103/ul Normal 1.4-6.5 [facility] Comment on above: Performed By: #### C BC #### [facility] [address] [place], [place] [address] Andriy Sarita Neutrophils/100 WBC (Bld) 65.4 % Normal 43.0-75.0 [facility] Comment on above: Performed By: #### C BC #### [facility] [address] [place], [place] [address] Andriylogan Stein Platelet mean volume (Bld) [Entitic vol] 9.5 fL Normal 9.5-13.5 [facility] Comment on above: Performed By: #### C BC #### [facility] [address] [id number] Andriy Sarita PLT 258 103/ul Normal 150-450 [facility] Comment on above: Performed By: #### C BC #### [facility] [address] [place], [place] [id number] Andriy Sarita RBC 4.08 106/ul Critically low 4.20-5.40 The [facility] Comment on above: Performed By: #### C BC #### [facility] [address] [place], [place] [id number] Andriy Sarita WBC 8.1 103/ul Normal 4.0-11.0 [facility] Comment on above: Performed By: #### C BC #### [facility] [address] [place], [place] [id number] Andriy Sarita CREATININE CLEARon 1 CREA CLEARANCE 69.46 ml/min Critically low 75.00-115.00 [facility] Comment on above: Performed By: #### H IV12 #### [facility] [address] [place], [place] [id number] Andriy Sarita CREA, 24 HR UR 579.12 mg/24 hr Critically low 800.00-1 ,800 .00 [facility] Comment on above: Performed By: #### H IV12 #### [facility] [address] [place], [place] [id number] Andriy Sarita Creatinine [Mass/Vol] 0.53 mg/dL Normal 0.52-1.04 [facility] Comment on above: Performed By: #### H IV12 #### [facility] [address] [place], [place] [address] Andriy Stein URINE CREAT 30.48 mg/dL Normal 20.00-300.[address] [facility] Comment on above: Performed By: #### H IV12 #### [facility] [address] [place], [place] [address] Andriy Stein GLUCOSE - 1HRon 01-26-2021 Glucose [Mass/Vol] 150 mg/dL Critically high 74-106 [facility] Comment on above: Performed By: #### G LU1HR ####[facility] [address] [place], [place] [address]Uftama Sarita LDHon 01-26-2021 LDH 125 U/L Normal 122-222 [facility] Comment on above: Performed By: #### T SH, LDH, BUN, URIC, ALT, AST ####[facility] [address] [id number] Stein PROTEIN 24HR URINEon 021 T PROT, 24 HR UR 32.3 mg/24 hr Critically low 42.0-225.0 [facility] Comment on above: Performed By: #### P ROT24U ####[facility] [address] [id number] Stein UR PROT 1.7 mg/dL Normal <=12.0 [facility] Comment on above: Performed By: #### P ROT24U ####[facility] [address] [id number] Sarita UR TOT VOL 1900 ml/24 HR Normal [facility] Comment on above: Performed By: #### P ROT24U ####[facility] [address] [place], [place] [address]Ooiapc Sarita Performed By: #### H IV12 #### [facility] [address] [place], [place] [address] Andriy Stein SGOTon 01-26-2021 AST [Catalytic activity/Vol] 17 U/L Normal 14-36 [facility] Comment on above: Performed By: #### T SH, LDH, BUN, URIC, ALT, AST ####[facility] [address] [address]Andriy tSein SGPTon 01-26-2021 ALT [Catalytic activity/Vol] 16 U/L Normal 9-52 [facility] Comment on above: Performed By: #### T SH, LDH, BUN, URIC, ALT, AST ####[facility] [address] [address]Andriy Stein TSHon 01-26-2021 TSH 0.220 uIU/mL Critically low 0.470-4.680 [facility] Comment on above: Performed By: #### T SH, LDH, BUN, URIC, ALT, AST ####[facility] [address] Sarita TSH RANGE SEE BELOW Normal [facility] Comment on above: Result Comment: <0.3 4 UIU/ml HYPERTHYROID 0.34-5.60 UIU/ml EUTHYROID >5.60 UIU/ml HYPOTHYROID Performed By: #### T SH, LDH, BUN, URIC, ALT, AST ####[facility] [address] Sarita URIC ACID SERUMon 01-26-2021 Urate [Mass/Vol] 3.6 mg/dL Normal 2.5-6.2 [facility] Comment on above: Performed By: #### T SH, LDH, BUN, URIC, ALT, AST ####[facility] [address] [place] US PREG TVon 01-24-2021 US [...] ANGELO BLANKENSHIP Date: 2021-01-24 10:12 Normal [facility] ABO AND RH TYPEon 01-19-2021 ABO and Rh group Nom (Bld) ABO Rh Typing A Rh Positive Normal [facility] Comment on above: Performed By: #### A BORH ####[facility] [address] [place], [place] [address]Hufyas Sarita PREG QUANT HCGon 01-19-2021 HCG QUANT 01293 mIU/mL Normal [facility] Comment on above: Result Comment: Prev iously reported as: 3 On 01/19/2021 11:21 By CV2 Performed By: #### H IV12 #### [facility] [address] [place], [place] [address] Andriy Rodgersen HCG RANGE SEE BELOW Normal [facility] Comment on above: Result Comment: 5-50 0-1 WEEK 40-300 1-2 WEEKS 100-1,000 2-3 WEEKS 500-6,000 3-4 WEEKS 5,000-200,000 1-2 MONTHS 10,000-100,000 2-3 MONTHS 3,000-50,000 2ND TRIMESTER 1,000-50,000 3RD TRIMESTER Performed By: #### H IV12 #### [facility] [address] [place], [place] [address] Andriy Stein Vital Signs Date Time Vital Sign Value Performing Clinician Facility 03-24-2025 11:04-0400 Body mass index (BMI) [Ratio] 33.77 kg/m2 Jem Ambrosio REINSURANCE CLAIMS ANALYST Work Phone: [facility] 03-24-2025 11:04-0400 Body weight 89.25 kg Jem Ambrosio NP Work Phone: [facility] 03-24-2025 11:04-0400 Diastolic blood pressure 80 mm[Hg] Jem Ambrosio REINSURANCE CLAIMS ANALYST Work Phone: [facility] 03-24-2025 11:04-0400 Systolic blood pressure 118 mm[Hg] Jem Ambrosio NP Work Phone: [facility] 03-10-2025 13:25-0400 Body mass index (BMI) [Ratio] 33.44 kg/m2 Deborah Topsfield PA Work Phone: [facility] 03-10-2025 13:25-0400 Body weight 88.36 kg Deborah Aquiles PA Work Phone: [facility] 03-10-2025 13:25-0400 Diastolic blood pressure 74 mm[Hg] Deborah Aquiles PA Work Phone: [facility] 03-10-2025 13:25-0400 Systolic blood pressure 136 mm[Hg] Deborah Aquiles PA Work Phone: [facility] 02-16-2025 15:09-0400 Body mass index (BMI) [Ratio] 33.3 kg/m2 Deborah Topsfield PA Work Phone: [facility] 02-16-2025 15:09-0400 Body weight 88 kg Deborah Aquiles PA Work Phone: [facility] 02-16-2025 15:09-0400 Diastolic blood pressure 72 mm[Hg] Deborah Topsfield PA Work Phone: [facility] 02-16-2025 15:09-0400 Systolic blood pressure 128 mm[Hg] Deborah Topsfield PA Work Phone: [facility] 02-02-2025 15:03-0400 Body mass index (BMI) [Ratio] 33 kg/m2 Scooby Jenny DO Work Phone: [facility] 02-02-2025 15:03-0400 Body weight 87.2 kg Scooby Jenny DO Work Phone: [facility] 02-02-2025 15:03-0400 Diastolic blood pressure 78 mm[Hg] Scooby Jneny DO Work Phone: [facility] 02-02-2025 15:03-0400 Systolic blood pressure 136 mm[Hg] Scooby Jenny DO Work Phone: [facility] 01-01-2025 13:37-0400 Body mass index (BMI) [Ratio] 32.79 kg/m2 Deborah Topsfield PA Work Phone: [facility] 01-01-2025 13:37-0400 Body weight 86.64 kg Deborah Aquiles PA Work Phone: [facility] 01-01-2025 13:37-0400 Diastolic blood pressure 72 mm[Hg] Deborah Jerezey PA Work Phone: [facility] 01-01-2025 13:37-0400 Systolic blood pressure 124 mm[Hg] Deborah Rodriguez PA Work Phone: [facility] 12-04-2024 10:26-0400 Body height 162.6 cm Scooby Jenny DO Work Phone: [facility] 12-04-2024 10:25-0400 Body mass index (BMI) [Ratio] 32.27 kg/m2 Scooby Jenny DO Work Phone: [facility] 12-04-2024 10:25-0400 Body weight 85.28 kg Scooby Jenny DO Work Phone: [facility] 12-04-2024 10:25-0400 Diastolic blood pressure 72 mm[Hg] Scooby Jenny DO Work Phone: [facility] 12-04-2024 10:25-0400 Systolic blood pressure 118 mm[Hg] Scooby Jenyn DO Work Phone: [facility] 11-24-2024 15:59-0400 Body mass index (BMI) [Ratio] 34.57 kg/m2 Oma Davis RN Work Phone: [facility] 11-24-2024 15:59-0400 Body weight 85.73 kg Oma Davis RN Work Phone: [facility] 11-13-2024 10:57-0400 Body weight 87.09 kg Scooby Jenny DO Work Phone: [facility] 11-13-2024 10:57-0400 Diastolic blood pressure 70 mm[Hg] Scooby Jenny DO Work Phone: [facility] 11-13-2024 10:57-0400 Systolic blood pressure 128 mm[Hg] Scooby Alvarado DO Work Phone: [facility] 10-16-2024 14:37-0400 Body weight 85.84 kg Noms Nurse [facility] 10-16-2024 14:37-0400 Diastolic blood pressure 82 mm[Hg] Noms Nurse [facility] 10-16-2024 14:37-0400 Systolic blood pressure 124 mm[Hg] Noms Nurse [facility] 07-09-2021 13:35-0500 Body temperature 96.4 [degF] Renita Ginty Other [facility] Other 07-09-2021 13:35-0500 SaO2% (BldA) [Mass fraction] 98 % Renita Ginty Other [facility] Other 02-19-2021 04:06-0400 Body weight 83.0088 kg RENAY OTOOLE [facility] Comment on above: Performed By: #### HIV12 #### [facility] [address] [address] Andriy Stein Encounters Encounter Date Encounter Type Care Provider Facility Start: 03-24-2025 End: 03-24-2025 Nik Ambrosio REINSURANCE CLAIMS ANALYST Work Phone: [facility] Start: 03-24-2025 End: 03-24-2025 Bamboo flowsheet Jem Ambrosio REINSURANCE CLAIMS ANALYST Work Phone: [facility] Start: 03-24-2025 End: 03-24-2025 Office outpatient visit 15 minutes Jem Ambrosio REINSURANCE CLAIMS ANALYST Work Phone: [facility] Comment on above: 34 weeks gestation o f ([facility]); Third trimester ([facility]); Gestational diabetes mellitus (GDM) in third trimester, gestational diabetes method of control unspecified ([facility]) Start: 03-24-2025 End: 03-24-2025 ambulatory JME AMBROSIO Not Available Start: 03-20-2025 End: 03-20-2025 Telephone encounter Amanda STAPLES [facility] Start: 03-10-2025 End: 03-10-2025 Bamboo flowsheet Deborah RUBIN Work Phone: [facility] Start: 03-10-2025 End: 03-10-2025 Bamboo flowsheet Deborah RUBIN Work Phone: [facility] Start: 03-10-2025 End: 03-10-2025 Office outpatient visit 15 minutes Deborah RUBIN Work Phone: [facility] Comment on above: 32 weeks gestation o f ([facility]); Third trimester ([facility]) Start: 03-10-2025 End: 03-10-2025 ambulatory DEBORAH RODRIGUEZ Not Available Start: 02-25-2025 End: 02-25-2025 ambulatory DEBORAH RODRIGUEZ Not Available Start: 02-16-2025 End: 02-16-2025 ambulatory DEBORAH RODRIGUEZ Not Available Start: 02-16-2025 End: 02-16-2025 Office outpatient visit 15 minutes Deborah RUBIN Work Phone: [facility] Comment on above: Size of fetus incons istent with dates in second trimester ([facility]) (Primary Dx); 28 weeks gestation of ([facility]); Third trimester ([facility]) Start: 02-16-2025 End: 02-16-2025 Bamboo flowsheet Deborah RUBIN Work Phone: [facility] Start: 02-16-2025 End: 02-16-2025 Bamboo flowsheet Deborah RUBIN Work Phone: [facility] Start: 02-13-2025 End: 02-13-2025 Clinisync Result Encounter Scooby Jenny DO Work Phone: [facility] Unsolicited Start: 02-13-2025 End: 02-13-2025 Clinisync Result Encounter Scooby Jenny DO Work Phone: [facility] Unsolicited Start: 02-02-2025 End: 02-02-2025 Office outpatient visit 15 minutes Scooby Jenny DO Work Phone: [facility] Comment on above: Second trimester pre gnancy ([facility]); 26 weeks gestation of ([facility]); Diabetes mellitus screening Start: 02-02-2025 End: 02-02-2025 ambulatory SCOOBY JENNY Not Available Start: 02-02-2025 End: 02-02-2025 Bamboo flowsheet Scooby Jenny DO Work Phone: [facility] Start: 02-02-2025 End: 02-02-2025 Bamboo flowsheet Scooby Jenny DO Work Phone: [facility] Start: 01-26-2025 End: 01-26-2025 ambulatory SCOOBY JENNY Not Available Start: 01-01-2025 End: 01-01-2025 Bamboo flowsheet Deborah RUBIN Work Phone: [facility] Start: 01-01-2025 End: 01-01-2025 Bamboo flowsheet Deborah RUBIN Work Phone: [facility] Start: 01-01-2025 End: 01-01-2025 flow sheet Deborah RUBIN Work Phone: [facility] Comment on above: Second trimester pre gnancy ([facility]); 22 weeks gestation of ([facility]) Start: 01-01-2025 End: 01-01-2025 ambulatory DEBORAH [...] Rowena STAPLES Work Phone: [facility] Start: 12-04-2024 End: 12-04-2024 ambulatory SCOOBYArcelia KRUEGERO Not Available Start: 12-04-2024 End: 12-04-2024 Patient encounter procedure Scooby Jenny DO Work Phone: [facility] Start: 12-04-2024 End: 12-04-2024 flow sheet Scooby Jenny DO Work Phone: [facility] Comment on above: Second trimester pre gnancy ([facility]); 18 weeks gestation of ([facility]); Well woman exam with routine gynecological exam; Screening, , for anatomic survey ([facility]); Screen for STD (sexually transmitted disease); Need for maternal serum alpha-protein (MSAFP) screening ([facility]) Start: 11-24-2024 End: 11-24-2024 ambulatory Oma Davis RN Work Phone: [facility] Comment on above: Gestational diabetes mellitus (GDM) [...] End: 12-21-2023 ambulatory NO PCP NO PCP [facility] Start: 12-19-2023 End: 12-20-2023 Emergency department patient visit RENITA HICKMAN [facility] Start: 12-19-2023 End: 12-19-2023 Emergency department patient visit NO PCP NO PCP [facility] Start: 03-01-2022 End: 03-01-2022 ambulatory Kym Masterson Facility:[facility] Start: 11-08-2021 End: 11-08-[address] SCOOBY ALVARADO Facility:[facility] Start: 08-01-2021 End: 08-01-[address] SCOOBY ALVARADO Facility:[facility] Start: 07-30-2021 End: 07-31-2021 Evaluation and management of inpatient DR SCOOBY ALVARADO Facility:[facility] Start: 07-13-2021 End: 07-13-[address] SCOOBY ALVARADO Facility:[facility] Start: 07-11-2021 End: 07-12-[address] NADIA DOOLEY Facility:[facility] Start: 07-09-2021 End: 07-09-2021 ambulatory Renita Jimenez [facility] [employer] Other Start: 07-09-2021 Office outpatient vi sit 15 minutes Renita Ajith [facility] [...] dip stick/tabl et rgnt non-auto w/o micrscp Jem Ambrosio [employer]S ANALYST Work Phone: Start: 03-10-2025 Urnls dip stick/tabl et rgnt non-auto w/o micrscp Deborah RUBIN Work Phone: Start: 02-13-2025 ALL CBC WITH AUTO DIFF Scooby Jenny DO Work Phone: Start: 02-02-2025 Urnls dip [...] Conception, Via Natural or Artificial Opening RENAY SYDNIE Start: 07-30-2021 Introduction of Othe r Hormone into Peripheral Vein, Percutaneous Approach RENAY SYDNIE Start: 07-30-2021 Repair Perineum Skin , External Approach RENAY SYDNIE Plan of Treatment Date Care Activity Detail Author Start: 07-19-2031 DTaP,Tdap and Td Vaccines (3 - Td or Tdap) DTaP,Tdap and Td Vaccines (3 - Td or Tdap) [facility] Start: 12-04-2029 Screening for malign ant neoplasm of cervix [facility] Start: 11-24-2025 Adult BMI Screening Adult BMI Screen ing [facility] Start: 06-15-2025 End: 06-15-2025 ambulatory 06/15/2025 9:50 AM EST Visit SHERLY MARES [address] [place] [id number] Scooby Alvarado DO [address] [place] [place], [place] [id number] SHERLY MARES Start: 04-07-2025 End: 04-07-2025 Patient encounter procedure 04/07/2025 1:30 PM EDT Routine SHERLY MARES [address] [facility] [place] [phone] Deborah Rodriguez PA [address] [place] [address] SHER[facility] [place] [facility] Start: 03-24-2025 End: 09-21-2025 US biophysical profile w non stress test US biophysical profile w non stress test Imaging Routine Third trimester ([facility]) Expected: 03/24/2025 (Approximate), Expires: 09/21/2025 [facility] Work Phone: Comment on above: Expected: 03/24/2025 (Approximate), Expires: 09/21/2025 Start: 03-24-2025 End: 03-24-2025 Patient encounter procedure [facility] Comment on above: Arrived Start: 03-10-2025 End: 03-10-2025 Patient encounter procedure 03/10/2025 1:20 PM EDT Routine [facility] [address] [facility] [place] [phone] Deborah Rodriguez, PA [address] [place] [address] Arrived [facility] Comment on above: Arrived Start: 03-03-2025 End: 03-03-2025 Patient encounter procedure 03/03/2025 2:40 PM EDT Routine [facility] [address] [facility] [place] [phone] Scooby Alvarado DO [address] [address] [facility] Start: 02-25-2025 End: 02-25-2025 Professional / ancillary services management 02/25/2025 3:00 PM EDT Ancillary Procedure [facility] [address] [facility] [place] [phone] [facility] Start: 02-23-2025 COVID-19 Vaccine ( season) COVID-19 Vaccine ( season) [facility] Start: 02-23-2025 Influenza vaccination P [facility] Start: 02-16-2025 End: 02-16-2025 Patient encounter procedure 02/16/2025 2:30 PM EDT Routine [facility] [address] [facility] [place] [phone] Deborah Rodriguez, PA [address] [place] [address] [facility] Start: 02-16-2025 End: 06-18-2025 US for US OB follow up transabdominal approach Imaging Routine Size of fetus inconsistent with dates in second trimester ([facility]) Expected: 02/16/2025, Expires: 06/18/2025 [facility] [...] EDT Ancillary Procedure [facility] [address] [facility] [place] [phone] [facility] Start: 01-01-2025 End: 01-01-2025 Patient encounter procedure [facility] Comment on above: Arrived Start: 12-20-2024 Tobacco Screening Tobacco Screening [facility] Start: 12-19-2024 Adult BMI Screening Adult BMI Screen ing [facility] Start: 12-04-2024 End: 01-03-2025 Alpha fetoprotein, maternal Alpha fetoprotein, maternal Lab Routine Need for maternal serum alpha-protein (MSAFP) screening ([facility]) Expected: 12/04/2024 (Approximate), Expires: 01/03/2025 [facility] Comment on above: Expected: 12/04/2024 (Approximate), Expires: 01/03/2025 Start: 12-04-2024 End: 03-06-2025 US for US OB 14+ weeks anatomy scan Imaging Routine Screening, , for anatomic survey ([facility]) Expected: 12/04/2024, Expires: 03/06/2025 [facility] Comment on above: Expected: 12/04/2024 , Expires: 03/06/2025 Start: 12-04-2024 End: 12-04-2024 Patient encounter procedure 12/04/2024 9:40 AM EDT Routine [facility] [address] [facility] [place] [phone] Scooby Alvarado, DO [address] [address] [facility] Start: 11-13-2024 End: 11-13-2024 Patient encounter procedure 11/13/2024 10:40 AM EDT Routine [facility] [address] [facility] [place] [phone] Scooby Alvarado, DO [address] [address] [facility] Start: 10-16-2024 End: 10-16-2025 ABO/Rh ABO/Rh Lab Routine Missed menses , unspecified gestational age Expected: 10/16/2024 (Approximate), Expires: 10/16/2025 [facility] Comment on above: Expected: 10/16/2024 (Approximate), Expires: 10/16/2025 Start: 10-16-2024 End: 10-16-2025 Blood type and Indirect antibody screen panel - Blood Type and screen Lab Routine Missed menses , unspecified gestational age Expected: 10/16/2024 (Approximate), Expires: 10/16/2025 [facility] Work Phone: Comment on above: Expected: 10/16/2024 (Approximate), Expires: 10/16/2025 Start: 10-16-2024 End: 10-16-2025 Drugs of abuse panel - Urine by Screen method Rapid drug screen, urine Lab Routine , unspecified gestational age Encounter for supervision of normal first in first trimester Expected: 10/16/2024 (Approximate), Expires: 10/16/2025 [facility] Comment on above: Expected: 10/16/2024 (Approximate), Expires: 10/16/2025 Start: 02-24-2024 COVID-19 Vaccine () COVID-19 Vaccine () [facility] Start: 2021 Screening for malign ant neoplasm of cervix [facility] Start: 2012 Screening for malign ant neoplasm of cervix Pap Smear [facility] Start: 2009 Adult BMI Follow Up Plan Adult BMI Follow Up Plan [facility] Start: 2003 Depression Screening Depression Scre ening [facility] Bacteria identified in Urine by Culture Urine culture Microbiology Routine Missed menses Ordered: 10/16/2024 [facility] Comment on above: Ordered: 10/16/2024 CBC W Auto Different ial panel - Blood CBC and differential Lab Routine Missed menses , unspecified gestational age Ordered: 10/16/2024 [facility] Comment on above: Ordered: 10/16/2024 CHLAMYDIA TRACHOMATI S (GENITO/STI) CHLAMYDIA TRACHOMATIS (GENITO/STI) Lab Routine Screen for STD (sexually transmitted disease) Ordered: 12/04/2024 [facility] Comment on above: Ordered: 12/04/2024 Cytology Cervical or vaginal smear or scraping study Pap Smear Pathology and Cytology Routine Well woman exam with routine gynecological exam Ordered: 12/04/2024 [facility] Comment on above: Ordered: 12/04/2024 Hemoglobin A1c/Hemoglobin.total in Blood Hemoglobin A1c Lab Routine Missed menses , unspecified gestational age Ordered: 10/16/2024 [facility] Comment on above: Ordered: 10/16/2024 Hepatitis B virus surface Ag [Presence] in Serum or Plasma by Immunoassay Hepatitis B surface antigen Lab Routine Missed menses , unspecified gestational age Ordered: 10/16/2024 [facility] Comment on above: Ordered: 10/16/2024 Hepatitis C virus Ab [Presence] in Serum or Plasma by Immunoassay Hepatitis C antibody Lab Routine Missed menses , unspecified gestational age Ordered: 10/16/2024 [facility] Comment on above: Ordered: 10/16/2024 HIV-1/HIV-2 antigen/antibody combination immunoassay HIV-1 and HIV-2 antibodies Lab Routine Missed menses , unspecified gestational age Ordered: 10/16/2024 [facility] Comment on above: Ordered: 10/16/2024 Human papilloma viru s DNA [Presence] in Unspecified specimen by Probe with amplification HPV DNA probe, amplified Microbiology Routine Well woman exam with routine gynecological exam Ordered: 12/04/2024 [facility] Comment on above: Ordered: 12/04/2024 Neisseria gonorrhoea e DNA [Presence] in Unspecified specimen by CARLITOS with probe detection Neisseria gonorrhea DNA probe, direct Lab Routine Screen for STD (sexually transmitted disease) Ordered: 12/04/2024 [facility] Comment on above: Ordered: 12/04/2024 Reagin Ab [Presence] in Serum by RPR RPR Lab Routine Missed menses , unspecified gestational age Ordered: 10/16/2024 [facility] Comment on above: Ordered: 10/16/2024 Rubella antibody, IgG Rubella an tibody, IgG Lab Routine Missed menses , unspecified gestational age Ordered: 10/16/2024 [facility] Comment on above: Ordered: 10/16/2024 SURESWAB(R) ADVANCED VAGINITIS PLUS, TMA SURESWAB(R) ADVANCED VAGINITIS PLUS, TMA Pathology and Cytology Routine Screen for STD (sexually transmitted disease) Ordered: 12/04/2024 [facility] Work Phone: Comment on above: Ordered: 12/04/2024 Immunizations Immunization Date Immunization Notes Care Provider [facility] 04-04-2024 influenza virus vaccine, unspecified formulation Oma Davis RN Work Phone: [facility] Payers Date Payer Category Payer Medicaid [employer] [place] [id number] 2025 Medicaid [id number] 2022 Self-pay 2022 Managed Care Other (unspecified) [facility] [id number] 2022 Private Health Insurance [facility] [id number] 2022 Private Health Insurance [facility] [id number] 1991 Unknown [id number] 2.16.840.1.262878.3.579.2. 593 1991 Unknown [id number] 2.16.840.1.621247.3.579.2. 593 1991 Unknown [id number] 2.16.840.1.052507.3.579.2. 593 1991 Unknown [id number] 2.16.840.1.802504.3.579.2. 593 1991 Unknown [id number] 2.16.840.1.562051.3.579.2. 593 1991 Unknown [id number] 2.16.840.1.165054.3.579.2. 593 1991 Unknown [id number] 2.16.840.1.447791.3.579.2. 593 1991 Unknown [id number] 2.16.840.1.901498.3.579.2. 593 1991 Unknown [id number] 2.16.840.1.588735.3.579.2. 593 1991 Unknown [id number] 2.16.840.1.319495.3.579.2. 593 1991 Unknown [id number] 2.16.840.1.007368.3.579.2. 593 1991 Unknown [id number] 2.16.840.1.987566.3.579.2. 593 1991 Unknown [id number] 2.16.840.1.886100.3.579.2. 593 1991 Unknown [id number] 2.16.840.1.319823.3.579.2. 593 1991 Unknown [id number] 2.16.840.1.466680.3.579.2. 593 1991 Unknown [id number] 2.16.840.1.752235.3.579.2. 593 1991 Unknown [id number] 2.16.840.1.596355.3.579.2. 593 1991 Unknown [id number] 2.16.840.1.346895.3.579.2. 593 1991 Unknown [id number] 2.16.840.1.480145.3.579.2. 593 1991 Unknown [id number] 2.16.840.1.970905.3.579.2. 593 1991 Unknown [id number] 2.16.840.1.384364.3.579.2. 1286 1991 Unknown [id number] 2.16.840.1.173568.3.579.2. 1286 1991 Unknown [id number] 2.16.840.1.478655.3.579.2. 6 1991 Unknown [id number] 2.16.840.1.298475.3.579.2. 128 1991 Unknown [id number] 2.16.840.1.030049.3.579.2. 9 1991 Unknown [id number] 2.16.840.1.797361.3.579.2. 1258 1991 Unknown [id number] 2.16.840.1.861307.3.579.2. 1258 1991 Unknown [id number] 2.16.840.1.862678.3.579.2. 1258 1991 Unknown [id number] 2.16.840.1.235607.3.579.2. 1258 1991 Unknown [id number] 2.16.840.1.837588.3.579.2. 1258 1991 Unknown [id number] 2.16.840.1.183167.3.579.2. 1258 1991 Unknown [id number] 2.16.840.1.183014.3.579.2. 1258 1991 Unknown [id number] 2.16.840.1.308921.3.579.2. 1258 1991 Unknown [id number] 2.16.840.1.839978.3.579.2. 1258 1991 Unknown [id number] 2.16.840.1.305326.3.579.2. 9 1959 Unknown [id number] 1959 Unknown [id number] Unknown [id number] 2.16.840.1.885690.3.579.2. 531 Social History Date Type Detail Facility Start: 08-05-2020 End: 12-21-2023 Sex Assigned At [facility] Tobacco smoking stat us PRIS Tobacco smoking consumption unknown [facility] Start: 08-12-2024 [facility] Start: 1990 Sex assigned at Female [facility] Start: 06-27-2023 Gender identity Identifies as female gender (finding) [facility] Start: 06-27-2023 Sexual orientation Heterosexual (finding) [facility] Start: 08-25-2019 Tobacco smoking status NHIS Never smoked tobacco [facility] Start: 08-25-2019 Tobacco use and exposure Smokeless tobacco non-user [facility] Start: 11-19-2024 Alcoholic beverage intake Ex-drinker (finding) [facility] Start: 08-05-2020 End: 12-21-2023 History of Social function [facility] Are you worried or concerned that in the next two months you may not have stable housing that you own, rent or stay in as a part of a household? No [facility] Start: 1990 Sex assigned at Not on file [facility] Start: 01-28-2015 Sex Female (finding) [facility] Medical Equipment Procedure Code Equipment Code Equipment Origin al Text Equipment Identifier Dates 1 strip by In Vi tro route Daily Use in the morning prior to breakfast, 1 hour after each meal for a total of 4times daily. [id number] Start: 11-13-2024 End: 12-13-2024 1 each by In Vit ro route Daily Use to check FSBS four times daily [id number] Start: 11-13-2024 End: 12-13-2024 Clinical Notes 07-09-2021 to 03-24-2025 Jem Ambrosio, KAYY - 03/24/2025 10:50 AM EDTTelephone Encounter - BEL Navarro - 03/20/2025 12:55 PM EDTTelephone Encounter - BEL Navarro - 03/20/2025 12:55 PM EDT Note [...] to check FSBS. Blood Glucose Monitoring Suppl (Bahu Glucometer) w/Device kit 1 kit, Does not apply, Daily, Use four times daily to check FSBS. In the morning prior to breakfast & 1 hour after each meal for a total of 4times daily. Bgxucbow-Oob-Ul-FA ( 1 + IRON PO) Take by mouth ProFe 391.3 (180 Fe) MG capsule 1 capsule, Daily ALLERGIES Not on File PROBLEMS Active Ambulatory Problems Diagnosis Date Noted 28 weeks gestation of ([facility]) 02/16/2025 Third trimester ([facility]) 02/16/2025 Resolved Ambulatory Problems Diagnosis Date [...] nursing note reviewed. Exam conducted with a non destructive testing engineer present. Vitals: Estimated body mass index is 33.44 kg/m as calculated from the following: Height as of 12/04/24: 5' 4 . Weight as of 03/10/25: 194 lb 12.8 oz. BP: Patient's last menstrual period was 07/29/2024 (exact date). ASSESSMENT & PLAN ICD-10-CM 1. 34 weeks gestation of ([facility]) Z3A.34 2. Third trimester ([facility]) Z34.93 US biophysical profile w non stress test POCT urinalysis dipstick manually resulted 3. Gestational diabetes mellitus (GDM) in third trimester, gestational diabetes method of control unspecified ([facility]) O24.419 Return OB: Patient presents today [...] continues to send her glucose logs to [facility] and we will begin NST/BPP this week. Orders Placed This Encounter Procedures US biophysical profile w non stress test POCT urinalysis dipstick manually resulted Follow Up: Patient is to return to office in 2 week for routine OB appointment. Documented by Yane Grant MA on behalf of: Jem Ambrosio NP documented in this encounter [facility] 03-20-2025 Miscellaneous Notes Called patient and had to leave a voicemail. We haven't received any blood sugar logs for 4 weeks. Asked her to please send them to us or to call with questions. Left RD phone number. documented in this encounter [facility] 03-20-2025 Telephone encounter Note Called patient and had to leave a voicemail. We haven't received any blood sugar logs for 4 weeks. Asked her to please send them to us or to call with questions. Left RD phone number. [employer] 03-10-2025 History of Presen t illness Narrative Reason for Appointment: Patient ID: Paris Mosqueda is a 34 y.o. female who presents for Routine Visit Patient presents today for Return OB appointment. MEDICATIONS Current Outpatient Medications Medication Instructions Alcohol Swabs (Alcohol Prep Pad) 70 % pads 1 Pad, Topical, Daily, Use four times daily to check FSBS. Blood Glucose Monitoring Suppl (D-[employer]Fox Glucometer) w/Device kit 1 kit, Does not apply, Daily, Use four times daily to check FSBS. In the morning prior to breakfast & 1 hour after each meal for a total of 4times daily. Cmvhbyvm-Qxq-Kp-FA ( 1 + IRON PO) Take by mouth ProFe 391.3 (180 Fe) MG capsule 1 capsule, Daily ALLERGIES No Known Allergies PROBLEMS Active Ambulatory Problems Diagnosis Date Noted 28 weeks gestation of ([facility]) 02/16/2025 Third trimester ([facility]) 02/16/2025 Resolved Ambulatory Problems Diagnosis Date [...] nursing note reviewed. Exam conducted with a non destructive testing engineer present. Vitals: Estimated body mass index is 33.44 kg/m as calculated from the following: Height as of 12/04/24: 5' 4 . Weight as of this encounter: 194 lb 12.8 oz. BP: 136/74 Patient's last menstrual period was 07/29/2024 (exact date). ASSESSMENT & PLAN ICD-10-CM 1. 32 weeks gestation of ([facility]) Z3A.32 POCT urinalysis dipstick manually resulted 2. Third trimester ([facility]) Z34.93 POCT urinalysis dipstick manually resulted [...] of: SCOTTIE Yañez documented in this encounter [facility] 02-16-2025 History of Presen t illness Narrative Reason for Appointment: Patient ID: Paris Mosqueda is a 34 y.o. female who presents for Routine Visit Patient presents today for Return OB appointment. MEDICATIONS Current Outpatient Medications Medication Instructions Alcohol Swabs (Alcohol Prep Pad) 70 % pads 1 Pad, Topical, Daily, Use four times daily to check FSBS. Blood Glucose Monitoring Suppl ([employer] Glucometer) w/Device kit 1 kit, Does not apply, Daily, Use four times daily to check FSBS. In the morning prior to breakfast & 1 hour after each meal for a total of 4times daily. Uaalzzqo-Lit-Tq-FA ( 1 + IRON PO) Take by mouth ProFe 391.3 (180 Fe) MG capsule 1 capsule, Daily ALLERGIES No Known Allergies PROBLEMS Active Ambulatory Problems Diagnosis Date Noted 28 weeks gestation of ([facility]) 02/16/2025 Third trimester ([facility]) 02/16/2025 Resolved Ambulatory Problems Diagnosis Date [...] nursing note reviewed. Exam conducted with a non destructive testing engineer present. Vitals: Estimated body mass index is 33.3 kg/m as calculated from the following: Height as of 12/04/24: 5' 4 . Weight as of this encounter: 194 lb. BP: 128/72 Patient's last menstrual period was 07/29/2024 (exact date). ASSESSMENT & PLAN ICD-10-CM 1. Size of fetus inconsistent with dates in second trimester ([facility]) O26.842 US OB follow up transabdominal approach 2. 28 weeks gestation of ([facility]) Z3A.28 CANCELED: CBC and differential 3. Third trimester ([facility]) Z34.93 Return OB: Patient presents today [...] of: SCOTTIE Yañez documented in this encounter [facility] 02-02-2025 History of Presen t illness Narrative [...] meal for a total of 4times daily. Uejgzuoo-Aaq-Kr-FA ( 1 + IRON PO) Take by [...] nursing note reviewed. Exam conducted with a non destructive testing engineer present. Vitals: Estimated body mass index is 33 kg/m as calculated from the following: Height as of 12/04/24: 5' 4 . Weight as of this encounter: 192 lb 4 oz. BP: 136/78 Patient's last menstrual period was 07/29/2024 (exact date). ASSESSMENT & PLAN ICD-10-CM 1. Second trimester ([facility]) Z34.92 POCT urinalysis dipstick manually resulted 2. 26 weeks gestation of ([facility]) Z3A.26 3. Diabetes mellitus screening Z13.1 [...] glucose log and completed Diabetic education through [facility]. Documented by Jem Ambrosio NP on behalf of: Scooby Alvarado DO documented in this encounter [facility] 01-01-2025 History of Presen t illness Narrative [...] meal for a total of 4times daily. Sawghjag-Stf-Nw-FA ( 1 + IRON PO) Take by [...] ASSESSMENT & PLAN ICD-10-CM 1. Second trimester ([facility]) Z34.92 POCT urinalysis dipstick manually resulted 2. 22 weeks gestation of ([facility]) Z3A.22 Return OB: Patient presents today [...] of: SCOTTIE Yañez documented in this encounter [facility] 12-04-2024 Miscellaneous Notes Called regarding blood sugar [...] have questions you can call me at [phone]. Please continue to send in blood sugars weekly. I will also send a [email or web address] message. [facility] Telephone encounter Note Called regarding blood [...] have questions you can call me at [phone]. Please continue to send in blood sugars weekly. I will also send a [email or web address] message. [employer] Work Phone: 12-04-2024 History of Presen t [...] Use to check FSBS four times daily Gppkpxaj-Eov-Np-FA ( 1 + IRON PO) Take by [...] nursing note reviewed. Exam conducted with a non destructive testing engineer present. Vitals: There is no height or weight on file to calculate BMI. BP: 118/72 Patient's last menstrual period was 07/29/2024 (exact date). ASSESSMENT & PLAN ICD-10-CM 1. Second trimester ([facility]) Z34.92 POCT urinalysis dipstick manually resulted 2. 18 weeks gestation of ([facility]) Z3A.18 3. Well woman exam with routine gynecological exam Z01.419 Pap Smear HPV DNA probe, amplified 4. Screening, , for anatomic survey ([facility]) Z36.89 US OB 14+ weeks anatomy scan 5. Screen for STD (sexually transmitted disease) Z11.3 SURESWAB(R) ADVANCED VAGINITIS PLUS, TMA CHLAMYDIA TRACHOMATIS (GENITO/STI) Neisseria gonorrhea DNA probe, direct 6. Need for maternal serum alpha-protein (MSAFP) screening ([facility]) Z36.1 Alpha fetoprotein, maternal Alpha fetoprotein, maternal Return OB/Annual Exam: Patient presents today for an annual exam/routine obstetrics appointment. Patient is currently 18w2d . Patient is doing well and states she has no complaints. Pap/cultures was obtained without difficulty and patient was given [facility] order to have obtained. Orders Placed This [...] Scooby Alvarado DO documented in this encounter [facility] 11-24-2024 Group counseling note Patient: Paris Mosqueda [...] Face to face time was 85 minutes. [employer] Work Phone: 11-24-2024 Miscellaneous Notes Patient: Paris [...] was 85 minutes. documented in this encounter [employer] 11-13-2024 History of Presen t illness Narrative [...] Use to check FSBS four times daily Clflgzoi-Oaj-Mc-FA ( 1 + IRON PO) Take by [...] nursing note reviewed. Exam conducted with a non destructive testing engineer present. Vitals: There is no height or [...] Glucose Test) strip Blood Glucose Monitoring Suppl (D-BoxFox Glucometer) w/Device kit 5. Elevated glucose tolerance test R73.09 Lancets Ultra Thin misc Alcohol Swabs (Alcohol Prep Pad) 70 % pads Glucose Blood (Blood Glucose Test) strip Blood Glucose Monitoring Suppl (Just Sing It-BoxFox Glucometer) w/Device kit New OB: Patient presents [...] or undercooked meat, and stay away from [facility]. Patient has been consulted regarding any further do's and don'ts of . Patient voiced understanding and all questions and concerns were answered. Orders Placed This Encounter Procedures POCT urinalysis dipstick manually resulted Discussed with patient her recent A1c results and patient aware that referral will be sent to [facility] for Diabetic Education and monitoring. PVU and supplies sent to pharmacy for patient to pickup and take with her to her referral appointment. Follow Up: Patient is to return in 4 weeks for routine OB appointment. Documented by Wendy Ulloa LPN on behalf of: Scooby Alvarado DO documented in this encounter [facility] 10-16-2024 History of Presen t illness Narrative [...] or undercooked meat, and stay away from [facility]. Patient has also been advised to [...] Faye Tyler MA documented in this encounter [facility] 07-09-2021 Evaluation note Encounter Date Diagnosis Assessment [...] Patient care instructions given in writting by [facility] Care At Home document [email or web address] Other Evaluation note* Diagnosis Missed menses Missed menses , unspecified gestational age Encounter for supervision of normal first in first trimester documented in this encounter [facility]* Diagnosis 15 weeks gestation of Second trimester state, incidental Diet controlled gestational diabetes mellitus (GDM), antepartum Gestational diabetes mellitus (GDM), antepartum, gestational diabetes method of control unspecified Elevated glucose tolerance test Impaired glucose tolerance test documented in this encounter [facility]* Diagnosis Gestational diabetes mellitus (GDM) in second trimester, gestational diabetes method of control unspecified [facility] Diagnosis Second trimester ([facility]) state, incidental 18 weeks gestation of ([facility]) Well woman exam with routine gynecological exam Routine gynecological examination Screening, , for anatomic survey ([facility]) Encounter for anatomic survey Screen for STD (sexually transmitted disease) Screening examination for venereal disease Need for maternal serum alpha-protein (MSAFP) screening ([facility]) documented in [facility] encounter [facility]* Diagnosis Second trimester ([facility]HS-HCC) state, incidental 22 weeks gestation of ([facility]) documented in this encounter [facility] [...] encounter[facility] SystemInstructionsNot on filedocumented in this encounterProMediwy [facility] Summary Purpose Family History No Family History Records FoundNo Family History Records FoundNo Family History Records FoundNo Family History Records FoundNo Family History Records Found Advance Directives No Advanced Directives Records Found Date Activated Date Inactivated Comments 12/20/2023 11:13 PM 12/21/2023 1:46 PM Additional Source Comments INFORMATION SOURCE (unrecogn ized section and content) DATE CREATED AUTHOR 11/17/2021 [facility] DATE CREATED AUTHOR AUTHOR'S ORGANIZ ATION 03/24/2022 [facility] DATE CREATED AUTHOR AUTHOR'S ORGANIZ ATION 12/29/2023 [facility] DATE CREATED AUTHOR AUTHOR'S ORGANIZ ATION 11/25/2024 [facility] DATE CREATED AUTHOR AUTHOR'S ORGANIZ ATION 03/29/2025 [facility] EPIC REASON FOR VISIT (unrecogniz ed section and content) Reason Comments Amenorrhea Reason Comments Routine Visit Reason Comments Gestational Diabetes Specialty Diagnoses / Procedures Referred By Belen t Referred To Contact Maternal and Medicine Diagnoses Gestational diabetes mellitus (GDM) in second trimester, gestational diabetes method of control unspecified Scooby Alvarado, DO [address] [place] [address] Phone: tel: fax: Maternal- Medicine at [facility] [address] [place] [address] Phone: tel: fax: Referral ID Status Reason Start Date Expiration Date Visits Requested Visits Authorized [id number] Pending Review Specialty Services Required 11/19/2024 11/19/2025 1 1 Care Teams (unrecognized sec tion and content) Grease Packer Relationship Specialty Start Date End Date No Pcp, [place] [address] PCP - General Family Medicine 12/19/23 Grease Packer Relationship Specialty Start Date End Date No Pcp, [place] [address] PCP - General Family Medicine 12/19/23 Grease Packer Relationship Specialty Start Date End Date No Pcp, [place] [address] PCP - General Family Medicine 12/19/23 FOR [...] BE BASED ON THE PRIMARY CLINICAL RECORDS. [facility]. provides no warranty or guarantee of the accuracy or completeness of information in this document.
[2025-03-31 13:17] VITALS: BP 128/64; PULSE 76
== END 2025-03-31 13:43 | disposition home or self-care (01) ==
LOC: US 12:53 → FBC 12:55
PROVIDERS: Visit Provider Nurse Practitioner Family
DX: O24.419 Gestational diabetes mellitus in pregnancy, unspecified control (principal); Z3A.35 35 weeks gestation of pregnancy
CPT/HCPCS: 76818

== ENCOUNTER 2025-04-03 10:00 | Outpatient (OUT) | payer MEDICAID, SELFPAY ==
--- OUTSIDE RECORDS SUMMARY | 2025-04-03 10:03 | XMS_ITS | Encounter Summary ---
Author Organization [facility] [employer] [facility] tem Address [id number] [address] [place] [address] Care Team Providers Care Soil Fertility Extension Specialist Name Role Phone No Pcp, No Pcp Primary Care Provider Unavailabl e Encounter Details Date Type Department Care Team (Late st Contact Info) Description 11/19/2024 Abstract Maternal- Medicine at [facility] [address] [place] [id number] Provider, Generic External Data Social History Tobacco [...] ORDERABLES Final Re sult Performing Organization Address City/[facility]/ZIP Co de Phone Number MANUALLY TRANSCRIBED RESULTS * CBC without diff (11/11/2024) Hemoglobin 11.8 MANUALLY TRANSCRIBED RESULTS Hematocrit 35.7 MANUALLY TRANSCRIBED RESULTS Rbc Mcv (Fl) By Automated Count 84.0 MANUALLY TRANSCRIBED RESULTS Platelets 284 MANUALLY TRANSCRIBED RESULTS Blood Venous blood / Unknown us Not In System Ref Prov LAB BLOOD ORDERABLES Rachael l Result Performing Organization Address City/[facility] Co de Phone Number MANUALLY TRANSCRIBED RESULTS * HIV 1&2 AB/AG Screen (P24 AG) (11/11/2024) HIV 1&2 AB/AG non reactive MAN UALLY TRANSCRIBED RESULTS Blood Venous blood / Unknown us Not In System Ref Prov LAB BLOOD ORDERABLES Rachael l Result Performing Organization Address [facility] Co de Phone Number MANUALLY TRANSCRIBED RESULTS * Type and screen (11/11/2024) Abo/Rh(D) A Positive MANUALLY TRANSCRIBED RESULTS Antibody Screen negative MANUALLY TRANSCRIBED RESULTS Blood Venous blood / Unknown us Not In System Ref Prov BLOOD BANK TEST ORDERABLE S Final Result Performing Organization Address [facility] Co de Phone Number MANUALLY TRANSCRIBED RESULTS * Rubella IGG immune status (11/11/2024) Rubella immune IgG non immune MANUALLY TRANSCRIBED RESULTS Blood Venous blood / Unknown us Not In System Ref Prov LAB BLOOD ORDERABLES Rachael l Result Performing Organization Address City/[facility] Co de Phone Number MANUALLY [...] ORDERABLES Final Resu lt Performing Organization Address City/[facility]/ZIP Co de Phone Number MANUALLY TRANSCRIBED RESULTS * Basic Metabolic Panel (11/11/2024) Glucose 126 mg/dL MANUALLY TRANSCRIBED RESULTS Blood Venous blood / Unknown us Scooby R Jenny DO LAB BLOOD ORDERABLES Final Resu lt Performing Organization Address [facility] Co de Phone Number MANUALLY TRANSCRIBED RESULTS documented in this encounter Visit Diagnoses Not on filedocumented in this encounter Care Teams Soil Fertility Extension Specialist Relationship Specialty Start Date End Date No Pcp, [place] [address] PCP - General Family Medicine 12/19/23 documented as of this encounter
--- OUTSIDE RECORDS SUMMARY | 2025-04-03 10:03 | XMS_ITS | Encounter Summary ---
Author Organization [facility] [id number] [facility] tem Address [id number] [address] [place] [address] Care Team Providers Care Pilot Manager Name Role Phone No Pcp, No Pcp Primary Care Provider Unavailabl e Encounter Details Date Type Department Care Team (Late st Contact Info) Description 03/20/2025 Telephone Maternal- Medicine at [facility] [address] [place] [address] Amanda Putnam LD Social History [...] on filedocumented in this encounter Care Teams Pilot Manager Relationship Specialty Start Date End Date No Pcp, [place] [address] PCP - General Family Medicine 12/19/23 documented as of this encounter
--- OUTSIDE RECORDS SUMMARY | 2025-04-03 10:03 | XMS_ITS | Encounter Summary ---
Author Organization [facility] [employer] [facility] tem Address [id number] [address] [place] [address] Care Team Providers Care Tile Layer Supervisor Name Role Phone No Pcp, No Pcp Primary Care Provider Unavailabl e Encounter Details Date Type Department Care Team (Late st Contact Info) Description 11/19/2024 Orders Only Maternal- Medicine at [facility] [address] [place] [address] Ref [place], [place] [address] Social History Tobacco Use Types Packs/Day Years [...] 4:13 PM EDT) Anatomical Region Laterality Modality OB-POWER AND RECOVERY SHIFT ENGINEER Ultrasound us Not In System Ref Prov IMG US ORDERABLES Final R esult documented in this encounter Visit Diagnoses Not on filedocumented in this encounter Care Teams Tile Layer Supervisor Relationship Specialty Start Date End Date No Pcp, [place] [id number] PCP - General Family Medicine 12/19/23 documented as of this encounter
--- OUTSIDE RECORDS SUMMARY | 2025-04-03 10:04 | XMS_ITS | Clinical Summary ---
Author Organization [facility] tem Address [id number] [address] [place] [address] Care Team Providers Care Senior Care Specialist Name Role Phone No Pcp, No [...] Team Description 03/20/2025 Telephone Maternal- Medicine at [facility] [address] [place] [phone] Amanda Putnam LD from Last 3 Months [...] 07/11/2021 [employer] Not on file Insurance [facility] Advance Directives * Full Code (Latest Code Status on File) Date Activated Date Inactivated Comments 12/20/2023 11:13 PM 12/21/2023 1:46 PM Care Teams Senior Care Specialist Relationship Specialty Start Date End Date No Pcp, No Pcp IZZY [place] [address] PCP - General Family Medicine 12/19/23
--- OUTSIDE RECORDS SUMMARY | 2025-04-03 10:06 | XMS_ITS | CCD ---
Author Organization [facility] CliniSyak Care Team Providers Care Farm Equipment Mechanic Name Role Phone RENAY OTOOLE Attending Unavailable [...] Referring Unavailable DEBORAH RODRIGUEZ Attending Unavailable JEM AMBROSIO Attending Unavailable Medications Current Medications Medication Drug [...] polysaccharide iron complex 391 mg oral capsule (14 sources) Start: 02-04-2024 take 1 capsule by mouth once daily ProFe 391.3 (180 Fe) MG capsule Take 1 capsule by mouth Daily 02/04/2024 Active Hrwdvlaq-Ofo-Ov-FA ( 1 + IRON PO) (20 sources) Abtkrydj-Bsb-Xe-FA ( 1 + IRON PO) Take by [...] of ] 02-02-2025 Episodic Residual codes; unclassified (11 sources) Gestation period, 28 weeks; Translations: [28 [...] applicable or unspecified; Translations: [MAT CARE OTH CO FTL GRTH 3RD TM UNS] Onset: 08-08-2021 [...] Test Name Value Interpretation Reference Range Facility US OB BPP W NON-STRESS on 03-31-2025 [place] [address] Ultrasound Report Signed Patient: PARIS MOSQUEDA MR#: [id number] : 1990 Acct:[id number] Age/Sex: 34 / F ADM Date: 03/31/25 Loc: US Attending Dr: Jem Ambrosio Ordering Physician: Jem Ambrosio Date of Service: 03/31/25 Procedure(s): US OB BPP w non-stress Accession Number(s): [id number] cc: Jem Ambrosio; [place] [address] Patient Name: PARIS MOSQUEDA MRN: [facility]:[id number] date: 1990 Sex: F Assigned Patient Location: [facility] Current Patient Location: Accession/Order Number: [id number] Exam Date: 03/31/2025 12:57 Report Date: 03/31/2025 17:44 At the request of: JEM AMBROSIO Procedure: US OB BPP w non-stress Ultrasound biophysical profile INDICATION: Gestational diabetes FINDINGS/ IMPRESSION: Cephalic position. 8/ 8 score biophysical profile. JEANNINE measures 7.9 cm which is borderline oligohydramnios. heart rate 152 beats per minutes. Impression dictated by: Nito Chong M.D. 03/31/2025 5:44 PM Dictation Location: [place] [address] Electronically authenticated by: [id number] Y Date: 03/31/2025 17:44 Dictated By: Nito Chong M.D. Signed By: 03/31/25 1747 DD/ 43 TD/TT: Aircraft Refueller: [facility] Radiology, Radiologist, - 03/31/2025 [place] [address] Ultrasound Report Signed Patient: PARIS MOSQUEDA MR#: [id number] : 1990 Acct:[id number] Age/Sex: 34 / F ADM Date: 03/31/25 Loc: US Attending Dr: Jem Ambrosio Ordering Physician: Jem Ambrosio Date of Service: 03/31/25 Procedure(s): US OB BPP w non-stress Accession Number(s): [id number] cc: Jem Ambrosio; [facility] The [place] [id number] Patient Name: PARIS MOSQUEDA MRN: [facility]:[id number] date: 1990 Sex: F Assigned Patient Location: [facility] Current Patient Location: Accession/Order Number: [id number] Exam Date: 03/31/2025 12:57 Report Date: 03/31/2025 17:44 At the request of: JEM AMBROSIO Procedure: US OB BPP w non-stress Ultrasound biophysical profile INDICATION: Gestational diabetes FINDINGS/ IMPRESSION: Cephalic position. 8/ 8 score biophysical profile. JEANNINE measures 7.9 cm which is borderline oligohydramnios. heart rate 152 beats per minutes. Impression dictated by: Nito Chong M.D. 03/31/2025 5:44 PM Dictation Location: [place] [address] Electronically authenticated by: [id number] Y Date: 03/31/2025 17:44 Dictated By: Nito Chong M.D. Signed By: 03/31/251746 DD/ 43 TD/TT: Aircraft Refueller: SHERLY FAZUA Radiology Study observation (narrative) SHERLY Kelley [facility] US OB BPP W NON-STRESS Ordered By: Radiologist Radiology on 03-31-2025 [facility] Phone: Urinalysis macro (dipstick) panel (U)on 03-24-2025 Bilirubin, UA Negative Negative - 4(70) +++ mg/dL [facility] Blood, UA Negative Negative - 50 Celestino/mcL [facility] Clarity, UA Clear [facility] re Color, UA Yellow [facility] Glucose, UA Negative Negative - 1999(110) ++++ mg/dL [facility] Interpretation and review of laboratory results Abnormal [facility] Ketones, UA Negative Negative - 160(16) ++++ mg/dL [facility] Leukocytes, UA Trace Negative - 500+++ Dodie/mcL [facility] Nitrite, UA Negative Negative - Positive [facility] pH, UA 6 5 - 9 [facility] Protein, UA Trace Negative - 1999(20) ++++ mg/dL [facility] Spec Grav, UA 1.02 1 - 1.03 [facility] Urobilinogen, UA 2.0 0.2 - 12 mg/dL [facility] Urinalysis macro (dipstick) panel (U)on 03-10-2025 Bilirubin, UA Positive Negative - 4(70) +++ mg/dL [facility] Blood, UA Positive Negative - 50 Celestino/mcL [facility] Clarity, UA Clear [facility] Color, UA Renita [facility] Glucose, UA Negative Negative - 1999(110) ++++ mg/dL [facility] Interpretation and review of laboratory results Abnormal [facility] Ketones, UA Positive Negative - 160(16) ++++ mg/dL [facility] Leukocytes, UA Positive Negative - 500+++ Dodie/mcL [facility] Nitrite, UA Negative Negative - Positive [facility] pH, UA 6 5 - 9 [facility] Protein, UA Positive Negative - 1999(20) ++++ mg/dL [facility] Spec Grav, UA 1.03 1 - 1.03 [facility] Urobilinogen, UA 1.0 0.2 - 12 mg/[facility] US OB FOLLOW UP TRANSABDOMIN [...] AUTO DIFFon BASOPHILS ABSOLUTE AUTO 0 N S [facility] Basophils/100 WBC (Bld) 0.4 % 0.2 - 2.0 % [facility] Eosinophils/100 WBC (Bld) 1.5 % 0.9 - 7.0 % [facility] Erythrocyte distribution width (RBC) [Ratio] 15 % 11.0 - 15.0 % [facility] Hematocrit (Bld) [Volume fraction] 33.1 % Low 36.0 - 48.0 % [facility] Hemoglobin (Bld) [Mass/Vol] 10.6 g/dL Low 12.0 - 16.0 g/dL [facility] IMMATURE GRANULOCYTES ABS AUTO 0.05 High [facility] Immature granulocytes/100 WBC (Bld) 0.5 % 0.0 - 0.5 % [facility] Interpretation and review of laboratory results Abnormal [facility] LYMPHOCYTES ABSOLUTE AUTO 3 [facility] Lymphocytes/100 WBC (Bld) 31.1 % 20.5 - 60.0 % [facility] MCH (RBC) [Entitic mass] 25.4 pg Low 26.7 - 34.0 pg [facility] MCHC (RBC) [Mass/Vol] 32 g/dL 29.9 - 35.2 g/dL [facility] MCV (RBC) [Entitic vol] 79.2 fL Low 81.0 - 99.0 fL [facility] MONOCYTES ABSOLUTE AUTO 0.8 N [facility] Monocytes/100 WBC (Bld) 8.4 % 1.7 - 12.0 % [facility] NEUTROPHILS ABSOLUTE AUTO 5.7 [facility] Neutrophils/100 WBC (Bld) 58.1 % 43.0 - 75.0 % [facility] Platelet mean volume (Bld) [Entitic vol] 10 fL 9.5 - 13.5 fL [facility] TBH EO # 0.2 [facility] PLT 279 [facility] RBC 4.18 Low [facility] TB[facility] WBC 9.7 [facility] Urinalysis macro (dipstick) panel (U)on 02-02-2025 Bilirubin, UA Negative Negative - 4(70) +++ mg/dL [facility] Blood, UA Negative Negative - 50 Celestino/mcL [facility] Clarity, UA [facility] re Color, UA Yellow [facility] e Glucose, UA Negative Negative - 1999(110) ++++ mg/dL [facility] Interpretation and review of laboratory results Abnormal [facility] Ketones, UA Positive Negative - 160(16) ++++ mg/dL [facility] Comment on above: Trace Leukocytes, UA Positive Negative - 500+++ Dodie/mcL [facility] Comment on above: Small Nitrite, UA Negative Negative - Positive [facility] pH, UA 6 5 - 9 [facility] Protein, UA Trace Negative - 1999(20) ++++ mg/dL [facility] Spec Grav, UA 1.03 1 - 1.03 [facility] Urobilinogen, UA 0.2 0.2 - 12 mg/dL [facility] US OB LIMITED 1+ [...] UA Negative Negative - 4(70) +++ mg/dL [facility] Blood, UA Negative Negative - 50 Celestino/mcL [facility] Clarity, UA Clear [facility] Color, UA Yellow [facility] Glucose, UA Negative Negative - 1999(110) ++++ mg/dL [facility] Interpretation and review of laboratory results Normal [facility] Ketones, UA Negative Negative - 160(16) ++++ mg/dL [facility] Leukocytes, UA Negative Negative - 500+++ Dodie/mcL [facility] Nitrite, UA Negative Negative - Positive [facility] pH, UA 7 5 - 9 [facility] Protein, UA Trace Negative - 1999(20) ++++ mg/dL [facility] Spec Grav, UA 1.025 1 - 1.03 [facility] Urobilinogen, UA 0.2 0.2 - 12 mg/dL [facility] No Panel InformationOrdered By: Radiologist Radiology on 12-19-2024 [facility] Work Phone: No Panel Informationon 12-19 Radiology Study observation (narrative) [facility] US OB ANATOMYon 12-19-[address] [address] Ultrasound Report Signed Patient: PARIS MOSQUEDA MR#: [id number] : 1990 Acct:[id number] Age/Sex: 34 / F ADM Date: 12/19/24 Loc: US Attending Dr: Scooby Alvarado D.O. Ordering Physician: Scooby Alvarado D.O. Date of Service: 12/19/24 Procedure(s): US OB anatomy Accession Number(s): [id number] cc: [facility] ; Scooby Alvarado D.O. [address] [address] Patient Name: PARIS MOSQUEDA MRN: [id number] date: 1990 Sex: F Assigned Patient Location: US Current Patient Location: US Accession/Order Number: [id number] Exam Date: 12/19/2024 11:33 Report Date: 12/19/2024 [...] Evangelista M.D. 12/19/2024 11:39 AM Dictation Location: [place] [address] Electronically authenticated by: [id number] Y Date: 12/19/2024 11:39 Dictated By: Sarita Evangelista M.D. Signed By: 12/19/24 1142 DD/ 1139 TD/TT: Aircraft Refueller: [facility] Radiology, Radiologist, - 12/19/[address] [address] Ultrasound Report Signed Patient: APRIS MOSQUEDA MR#: [id number] : 1990 Acct:[id number] Age/Sex: 34 / F ADM Date: 12/19/24 Loc: US Attending Dr: Scooby Alvarado D.O. Ordering Physician: Scooby Alvarado D.O. Date of Service: 12/19/24 Procedure(s): US OB anatomy Accession Number(s): [id number] cc: [facility] ; Scooby Alvarado D.O. The [address] [address] Patient Name: PARIS MOSQUEDA MRN: [facility]:[id number] date: 1990 Sex: F Assigned Patient Location: US Current Patient Location: US Accession/Order Number: [id number] Exam Date: 12/19/2024 11:33 Report Date: 12/19/2024 [...] Evangelista M.D. 12/19/2024 11:39 AM Dictation Location: [place] [address] Electronically authenticated by: [id number] Y Date: 12/19/2024 11:39 Dictated By: Sarita Evangelista M.D. Signed By: 12/19/24 1142 DD/ 1139 TD/TT: Aircraft Refueller: [facility] OB CERVICAL LENGTHon 11-24 [place] [address] Ultrasound Report Signed Patient: PARIS MOSQUEDA MR#: [id number] : 1990 Acct:[id number] Age/Sex: 34 / F ADM Date: 12/19/24 Loc: US Attending Dr: Scooby Alvarado D.O. Ordering Physician: Scooby Alvarado D.O. Date of Service: 12/19/24 Procedure(s): US OB cervical length Accession Number(s): [id number] cc: [facility] ; Scooby Alvarado D.O. [address] [address] Patient Name: PARIS MOSQUEDA MRN: [id number] date: 1990 Sex: F Assigned Patient Location: US Current Patient Location: US Accession/Order Number: [id number] Exam Date: 12/19/2024 11:33 Report Date: 12/19/2024 [...] Evangelista M.D. 12/19/2024 11:39 AM Dictation Location: [place] [address] Electronically authenticated by: [id number] Y Date: 12/19/2024 11:39 Dictated By: Sarita Evangelista M.D. Signed By: 12/19/24 1142 DD/ 1139 TD/TT: Aircraft Refueller: [facility] Radiology, Radiologist, - 12/19/[address] [address] Ultrasound Report Signed Patient: PARIS MOSQUEDA MR#: [id number] : 1990 Acct:[id number] Age/Sex: 34 / F ADM Date: 12/19/24 Loc: US Attending Dr: Scooby Alvarado D.O. Ordering Physician: Scooby Alvarado D.O. Date of Service: 12/19/24 Procedure(s): US OB cervical length Accession Number(s): [id number] cc: [facility] ; Scooby Alvarado D.O. [place] [id number] Patient Name: PARIS MOSQUEDA MRN: [id number] date: 1990 Sex: F Assigned Patient Location: US Current Patient Location: US Accession/Order Number: [id number] Exam Date: 12/19/2024 11:33 Report Date: 12/19/2024 [...] Evangelista M.D. 12/19/2024 11:39 AM Dictation Location: [place] [address] Electronically authenticated by: [id number] Y Date: 12/19/2024 11:39 Dictated By: Sarita Evangelista M.D. Signed By: 12/19/24 1142 DD/ 1139 TD/TT: Aircraft Refueller: [facility] IGP,APTIMA HPV,AGE GDLNon AGE GDLN ACOG TESTING Note . [facility] Comment on above: TESTS RESULT FLAG UN ITS REF RANGE LAB Clinician Provided Cytology Information Source.............Vagina Other.............. No. of containers..01 ThinPrep Vial Age Algo ACOG Karine... 30-65 01 FLAG LEGEND: L-Low Normal,H-High Normal,LL-Alert Low,HH-Alert High <-Panic Low,>-Panic High,A-Abnormal,AA-Critical Abnormal Performed at: 01 =G [address] [address] Cindy Pinzon MD, HPV APTIMA Negative Negative [facility] Comment on above: This nucleic acid am plification test detects fourteen high- risk HPV types (16,18,31,33,35,39,45,51,52,56,58,59,66,68) without differentiation. Performed at: =G - [facility] [id number] Dam Attendant: Cindy Pinzon MD, Phone: [phone] Performed at: - [facility] [id number] Dam Attendant: Cindy Pinzon MD, Phone: [phone] IGP, APTIMA HPV, RFX 16/18,45 Note . [facility] Comment on above: TESTS RESULT FLAG UN ITS REF RANGE LAB DIAGNOSIS: 02 NEGATIVE FOR INTRAEPITHELIAL LESION OR MALIGNANCY. Specimen adequacy: 02 Satisfactory for evaluation. No endocervical component is identified. Performed by: 02 Yanni Dela Cruz, Building Serviceman (ASCP) . 02 Note: Note 02 The [...] <-Panic Low,>-Panic High,A-Abnormal,AA-Critical Abnormal Performed at: [address] [address] Cindy Pinzon MD, SPATULA-ALONE VAGINA [facility] RECURRENT VAGINITIS (HTRX)on 12-06-2024 ATOPOBIUM VAGINAE 0 [facility] ATOPOBIUM VAGINAE Not detected [facility] BVAB 2,3 (BACTERIAL VAGINOSIS ASSOCIATED BACTERIA 2, 3); MOBILUNCUS SPP 0 [facility] BVAB 2,3 (BACTERIAL VAGINOSIS ASSOCIATED BACTERIA 2, 3); MOBILUNCUS SPP Not detected [facility] KENA ALBICANS, PARAPSILOSIS, TROPICALIS 0 [facility] KENA ALBICANS, PARAPSILOSIS, TROPICALIS Not detected [facility] KENA GLABRATA 0 [facility] KENA GLABRATA Not detected [facility] KENA KRUSEI 0 [facility] KENA KRUSEI Not detected [facility] CHLAMYDIA TRACHOMATIS 0 [facility] CHLAMYDIA TRACHOMATIS Not detected [facility] GARDNERELLA VAGINALIS 0 [facility] S Healthcare GARDNERELLA VAGINALIS Not detected [facility] MEGASPHAERA (TYPES 1, 2) 0 [facility] MEGASPHAERA (TYPES 1, 2) Not detected [facility] MYCOPLASMA GENITALIUM 0 [facility] MYCOPLASMA GENITALIUM Not detected [facility] NEISSERIA GONORRHOEAE 0 [facility] S Healthcare NEISSERIA GONORRHOEAE Not detected [facility] TRICHOMONAS VAGINALIS 0 [facility] S Healthcare TRICHOMONAS VAGINALIS Not detected [facility] Urinalysis macro (dipstick) panel (U)on 12-04-2024 Bilirubin, UA Negative Negative - 4(70) +++ mg/dL [facility] Blood, UA Negative Negative - 50 Celestino/mcL [facility] Clarity, UA Clear [facility] re Color, UA Yellow [facility] Glucose, UA Negative Negative - 2000(110) ++++ mg/dL [facility] Interpretation and review of laboratory results Normal [facility] Ketones, UA Negative Negative - 160(16) ++++ mg/dL [facility] Leukocytes, UA Positive Negative - 500+++ Dodie/mcL [facility] Comment on above: small Nitrite, UA Negative Negative - Positive [facility] pH, UA 7 5 - 9 [facility] Health[facility] e Protein, UA Negative Negative - 1999(20) ++++ mg/dL [facility] Spec Grav, UA 1.015 1 - 1.03 [facility] Urobilinogen, UA 0.2 0.2 - 12 mg/dL [facility] Glucose random or fasting- P OCTOrdered By: James Rader on 11-24-2024 External Glucose Fasting Or Random (Fbs) 94 [facility] Urinalysis macro (dipstick) panel (U)on 11-13-2024 Bilirubin, UA Negative Negative - 4(70) +++ mg/dL [facility] Blood, UA Negative Negative - 50 Celestino/mcL [facility] Clarity, UA [facility] re Color, UA Yellow [facility] Glucose, UA Negative Negative - 1999(110) ++++ mg/dL [facility] Interpretation and review of laboratory results Abnormal [facility] Ketones, UA Negative Negative - 160(16) ++++ mg/dL [facility] Leukocytes, UA Trace Negative - 500+++ Dodie/mcL [facility] Nitrite, UA Negative Negative - Positive [facility] pH, UA 6 5 - 9 [facility] Protein, UA Negative Negative - 1999(20) ++++ mg/dL [facility] Spec Grav, UA 1.01 1 - 1.03 [facility] Urobilinogen, UA 0.2 0.2 - 12 mg/dL [facility] BOX TESTon 11-11-2024 BOX TEST SENT OUT [employer] [facility] BOX1 unity [facility] Health[facility] e BOX2 11/11/24 [facility] [employer] BOX [facility] HCG ( test) Ql (U)o n 10-16-2024 Interpretation and review of laboratory results Abnormal [facility] Preg Test, Ur Positive Negative [facility] care [facility] US OB TRANSVAGINALon 025 [...] II, MD, PHD at 16-Oct-2024 11:21:08 PM [facility] Normal Not Available Comment on above: [...] II, MD, PHD at 16-Oct-2024 11:21:08 PM [facility] Ekaterina French MD - 10/16/2024 EXAM: [...] II, MD, PHD at 16-Oct-2024 11:21:08 PM [employer] [employer] [facility] Radiology Study observation (narrative) [facility] US Pelvis transvaginalOrdere d By: Ekaterina French on 10-16-2024 [facility] Work Phone: Urinalysis macro (dipstick) panel (U)on 10-16-2024 Bilirubin, UA Negative Negative - 4(70) +++ mg/dL [facility] Blood, UA Negative Negative - 50 Celestino/mcL [facility] Clarity, UA [facility] re Color, UA Yellow [facility] Glucose, UA Negative Negative - 1999(110) ++++ mg/dL [facility] Interpretation and review of laboratory results Abnormal [facility] Ketones, UA Positive Negative - 160(16) ++++ mg/dL [facility] Comment on above: 80mg/dL Leukocytes, UA Positive Negative - 500+++ Dodie/mcL [facility] Comment on above: small Nitrite, UA Negative Negative - Positive [facility] pH, UA 5.5 5 - 9 [facility] Protein, UA Positive Negative - 1999(20) ++++ mg/dL [facility] Comment on above: 30mg/dL Spec Grav, UA 1.03 1 - 1.03 [facility] Urobilinogen, UA 0.2 0.2 - 12 mg/dL [facility] HGB AND HCTon 12-21-2023 Hematocrit (Bld) [Volume fraction] 28.7 % Low 35-47 [facility] Comment on above: Performed By: #### H H #### [facility] ([id number]) [address] [place] [address] Hemoglobin (Bld) [Mass/Vol] 9.8 g/dL Low 11.7-15.5 [facility] Comment on above: Performed By: #### H H #### [facility] ([id number]) [address] [place] [address] Surgical Pathologyon 024 Surgical Pathology Normal [facility] Comment on above: Result Comment: [facility] [address] [place] [address] Surgical Pathology Consultation Patient Name:SYDNIE MOSQUEDAB:1990 (Age: 33)Gender:FTaken:12/21/2023eported:12/28/2023hysician(s):Randy Greene MD ([phone])Copy To: Rec. #:[id number]: #[id number] Final Pathologic Diagnosis Products of conception; removal: Products of conception (gestational sac with immature chorionic villi) and fragments of decidua with acute inflammation and necrosis. Report Electronically Signed Out wacha/12/28/2023Pradeep Brannon MD [place] [address], License number: [id number]. Clinical History Spontaneous , miscarriage. Gross Description Received in formalin labeled PANDA Karyotype: No Aggregate measurement: 5.2 x 3.8 x 2.0 cm. Placenta: 3.4 x 2.8 x 1.5 cm Decidua/Clot: 1.8 x 1.0 x 0.5 cm Gestational Sac: Yes, intact Tissue: No Molar Tissue: No Cassettes: A-C placenta (3, ss, [id number],m5) DM Received fresh-no site on container. POC for routine surgical path. Per Ariana pierson/12/21/2023GR Specimen(s) Received Products of conception Fee Codes(s): 1; 20713 US PREG LESS THAN 14 WKS WIT TRANSVAGINALon 12-21-2023 US PREG LESS THAN 14 [...] Monroy MD on 12/21/2023 8:46 AM Normal [facility] BASIC METABOLIC PANLon 12-19 Anion gap [Moles/Vol] 6 mmol/L Normal 5-15 [facility] Comment on above: Performed By: #### B CUCO CBCA, #### [facility] ([id number]) [address] [place] [address] Calcium [Mass/Vol] 8.9 mg/dL Normal 8.5-10.5 [facility] Comment on above: Performed By: #### B CUCO, CBCA, #### [facility] ([id number]) [address] [place] [address] Chloride [Moles/Vol] 105 mmol/L Normal 98-109 [facility] Comment on above: Performed By: #### B CUCO, CBCA, #### [facility] ([id number]) [address] [place] [address] CO2 [Moles/Vol] 24 mmol/L Normal 22-32 [facility] Comment on above: Performed By: #### B CUCO, CBCA, #### [facility] ([id number]) [address] [place] [address] Creatinine [Mass/Vol] 0.74 mg/dL Normal 0.40-1.00 [facility] Comment on above: Result Comment: METH OD TRACEABLE TO IDMS STANDARD Performed By: #### B CHETAN NORWOOD, #### [facility] ([id number]) [address] [place] [address] eGFR (CKD-EPI) NON-RACE DEPENDENT >90 Normal >59 [facility] Comment on above: Result Comment: Reported eGFR is based on the CKD-EPI 2020 equation that does not use a race coefficient. Performed By: #### B CHETAN NORWOOD, #### [facility] ([id number]) [address] [place] [address] 90044 Glucose [Mass/Vol] 149 mg/dL High 65-99 [facility] Comment on above: Performed By: #### B CHETAN NORWOOD, #### [facility] ([id number]) [address] [place] [address] 11238 Potassium [Moles/Vol] 3.6 mmol/L Normal 3.5-5.0 [facility] Comment on above: Performed By: #### B CHETAN NORWOOD, #### [facility] ([id number]) [address] [place] [address] 11092 Sodium [Moles/Vol] 135 mmol/L Normal 134-146 [facility] Comment on above: Performed By: #### B CHETAN NORWOOD, #### [facility] ([id number]) [address] [place] [address] 58889 Urea nitrogen [Mass/Vol] 10 mg/dL Normal 5-23 [facility] Comment on above: Performed By: #### B CHETAN NORWOOD, #### [facility] ([id number]) [address] [place] [address] 47535 CBC AND AUTO DIFFon 12-20-19 24 ABSOLUTE BASOPHIL 0.0 X10E9/L Normal 0.0-0.2 [facility] Comment on above: Performed By: #### B MP, CBCA, #### [facility] ([id number]) [address] [place] [address] 09371 ABSOLUTE NEUTROPHIL 4.9 X10E9/L Normal 1.5-6.6 [facility] Comment on above: Performed By: #### B MP, CBCA, #### [facility] ([id number]) [address] [place] [address] 67867 Basophils/100 WBC (Bld) 0.4 % Normal [facility] Comment on above: Performed By: #### B MP, CBCA, #### [facility] ([id number]) [address] [place] [address] 52841 Eosinophils (Bld) [#/Vol] 0.3 10*3/uL Normal 0.0-0.4 [facility] Comment on above: Performed By: #### B CUCO, CBCA, #### [facility] ([id number]) [address] [place] [address] 42644 Eosinophils/100 WBC (Bld) 2.3 % Normal [facility] Comment on above: Performed By: #### B MP, CBCA, #### [facility] ([id number]) [address] [place] [address] 94638 Erythrocyte distribution width (RBC) [Ratio] 13.8 % Normal 11.5-15.0 [facility] Comment on above: Performed By: #### B MP, CBCA, #### [facility] ([id number]) [address] [place] [address] 80043 Hematocrit (Bld) [Volume fraction] 34.8 % Low 35-47 [facility] Comment on above: Performed By: #### B CUCO CBCA, #### [facility] ([id number]) [address] [place] [address] 19348 Hemoglobin (Bld) [Mass/Vol] 11.5 g/dL Low 11.7-15.5 [facility] Comment on above: Performed By: #### B CUCO CBCA, #### [facility] ([id number]) [address] [place] [address] 29316 Lymphocytes (Bld) [#/Vol] 4.6 10*3/uL High 1.0-3.5 [facility] Comment on above: Performed By: #### B CUCO CBCA, #### [facility] ([id number]) [address] [place] [address] 43674 Lymphocytes/100 WBC (Bld) 41.7 % Normal [facility] Comment on above: Performed By: #### B CUCO CBCA, #### [facility] ([id number]) [address] [place] [address] 02458 MCH (RBC) [Entitic mass] 27.8 pg Normal 27-34 [facility] Comment on above: Performed By: #### B CUCO CBCA, #### [facility] ([id number]) [address] [place] [address] 13687 MCHC (RBC) [Mass/Vol] 33.0 g/dL Normal 32-36 [facility] Comment on above: Performed By: #### B CUCO CBCA, #### [facility] ([id number]) [address] [place] [address] 16271 MCV (RBC) [Entitic vol] 84 fL Normal 80-100 [facility] Comment on above: Performed By: #### B MP, CBCA, #### [facility] ([id number]) [address] [place] [address] 93720 Monocytes (Bld) [#/Vol] 1.2 10*3/uL High 0-0.9 [facility] Comment on above: Performed By: #### B MP, CBCA, #### [facility] ([id number]) [address] [place] [address] 57361 Monocytes/100 WBC (Bld) 11.1 % Normal [facility] Comment on above: Performed By: #### B MP, CBCA, #### [facility] ([id number]) [address] [place] [address] 38932 Neutrophils/100 WBC (Bld) 44.5 % Normal [facility] Comment on above: Performed By: #### B MP, CBCA, #### [facility] ([id number]) [address] [place] [address] 94643 Platelet mean volume (Bld) [Entitic vol] 7.6 fL Normal 7-12 [facility] Comment on above: Performed By: #### B MP, CBCA, #### [facility] ([id number]) [address] [place] [address] 95382 Platelets (Bld) [#/Vol] 323 10*3/uL Normal 150-450 [facility] Comment on above: Performed By: #### B MP, CBCA, #### [facility] ([id number]) [address] [place] [address] 33147 RBC COUNT 4.12 X10E12/L Normal 3.80-5.20 [facility] Comment on above: Performed By: #### B MP, CBCA, #### [facility] ([id number]) [address] [place] [address] 84981 WBC (Bld) [#/Vol] 11.0 10*3/uL Normal 4.0-11.0 [facility] Comment on above: Performed By: #### B CUCO, CBCA, #### [facility] ([id number]) [address] [place] [address] 41070 HCG.beta subunit IA 3rd IS Q non 12-20-2023 HCG.beta subunit Qn 5361 m[IU]/mL Normal [facility] Comment on above: Result Comment: NEW REFERENCE [...] Performed By: #### B CUCO, CBCA, #### [facility] ([id number]) [address] [place] [address] 30588 HCG ( test) Ql (U)o n 12-19-2023 Beta HCG ( test) Ql (U) Positive Abnormal NEG [facility] Comment on above: Performed By: #### 2 106-3 #### [facility] ([id number]) [address] [place] [address] 48193 HCG.beta subunit IA 3rd IS Q non 12-19-2023 HCG.beta subunit Qn 6620 m[IU]/mL Normal [facility] Comment on above: Result Comment: NEW REFERENCE [...] neoplasms. Performed By: #### 2 0415-6 #### [facility] ([id number]) [address] [place] [address] 89098 URN MACROSCOPIC NURon 2023 BILIRUBIN NIKITA Small Abnormal NEG [facility] Comment on above: Performed By: #### N UM #### [facility] ([id number]) [address] [place] [address] 01959 BLOOD/HGB NIKITA Large Abnormal NEG [facility] Comment on above: Performed By: #### N UM #### [facility] ([id number]) [address] [place] [address] 64224 GLUCOSE NIKITA Negative Normal NEG [facility] Comment on above: Performed By: #### N UM #### [facility] ([id number]) [address] [place] [address] 16824 KETONES NIKITA Trace Abnormal NEG [facility] Comment on above: Performed By: #### N UM #### [facility] ([id number]) [address] [place] [address] LEUKOCYTE ESTERASE NIKITA Negative Normal NEG [facility] Comment on above: Performed By: #### N UM #### [facility] ([id number]) [address] [place] [address] 60086 NITRITE NIKITA Negative Normal NEG [facility] Comment on above: Performed By: #### N UM #### [facility] ([id number]) [address] [place] [address] 13314 PH NIKITA 6.0 Normal 5.0-8.5 [facility] Comment on above: Performed By: #### N UM #### [facility] ([id number]) [address] [place] [address] 86012 PROTEIN NIKITA 100 mg/dL Abnormal NEG [facility] Comment on above: Performed By: #### N UM #### [facility] ([id number]) [address] [place] [address] 26913 SPECIFIC GRAVITY NIKITA >=1.030 Normal 1.003-1.035 [facility] Comment on above: Performed By: #### N UM #### [facility] ([id number]) [address] [place] [address] 07447 UROBILINOGEN NIKITA 1.0 eu/dL Normal <1.1 [facility] Comment on above: Performed By: #### N UM #### [facility] ([id number]) [address] [place] [address] 57131 US PREG LESS THAN 14 WKS WIT [...] Overton MD on 12/19/2023 6:46 PM Normal [facility] Chlamydia/GC/Trich NAAon Chlamydia Trachomotis, CARLITOS Negative Normal Negative [facility] Comment on above: Performed By: #### C UU #### [address] #### GCCHLAMTRI #### [facility] , Neisseria Gonorrhoeae, CARLITOS Negative Normal Negative [facility] Comment on above: Performed By: #### C UU #### [facility] [address] [place] [address] #### GCCHLAMTRI #### [facility] , Trichomonas CARLITOS Negative Normal Negative [facility] Comment on above: Result Comment: Perf ormed at: =G - [facility] [address] [id number] Dam Attendant: Cindy Pinzon MD, Phone: [phone] PERFORMED BY: [place] [address] PATHOLOGIST HOT BOX OPERATOR BROOKLYNN PEARCE M.D. Performed By: #### C UU #### [address] [place] [address] [place] #### GCCHLAMTRI #### [facility] , Urine Cultureon 03-01-2022 Bacteria identified Cx Nom (U) 30,000 colonies/ml mixed bacterial skin contaminants 2 Days PERFORMED BY: [address] [place] [address] PATHOLOGIST HOT BOX OPERATOR BROOKLYNN PEARCE M.D. Normal [facility] Comment on above: Performed By: #### C UU #### [facility] [address] [place] [address] #### GCCHLAMTRI #### [facility] , Pap IG,rfx Aptima HPV all pt hon 11-16-[address] [facility] Comment on above: Performed By: #### H IV12 #### [facility] [address] [place] [address] Andriy Stein DIAGNOSIS: Comment Normal [facility] Comment on above: Result Comment: NEGA TIVE FOR INTRAEPITHELIAL LESION OR MALIGNANCY. THIS SPECIMEN WAS RESCREENED PART OF OUR LABORATORY DEVELOPMENT TECHNICIAN PROGRAM. Performed By: #### H IV12 #### [facility] [address] [place] [address] Andriy Stein Methodology: Comment [facility] Comment on above: Result Comment: This liquid based ThinPrep(R) pap test was screened with the use of an image guided system. Performed By: #### H IV12 #### [facility] [address] [place] [address] Andriy Stein Note: Comment [facility] Comment on above: Result Comment: The Pap smear is a screening test designed to aid in the detection of premalignant and malignant conditions of the uterine cervix. It is not a diagnostic procedure and should not be used as the sole means of detecting cervical cancer. Both false-positive and false-negative reports do occur. . Performed By: #### H IV12 #### [facility] [address] [place] [address] Andriy Stein Performed by: Comment Normal [facility] Comment on above: Result Comment: Nathalia Dela Cruz, [employer]orer [employer] (ASCP) Performed By: #### H IV12 #### [facility] [address] [place] [address] Andriy Sarita QC reviewed by: Comment Normal [facility] Comment on above: Result Comment: Hebert Motley, Supervisory [employer] (ASCP) Performed By: #### H IV12 #### [facility] [address] [place] [address] Andriy Sarita Reflex Criteria: Comment Normal [facility] Comment on above: Result Comment: The HPV DNA reflex criteria were not met with this specimen result therefore, no HPV testing was performed. . Performed By: #### H IV12 #### [facility] [address] [place] [address] Andriy Sarita Specimen adequacy: Comment Normal [facility] Comment on above: Result Comment: Sati sfactory for evaluation. Endocervical and/or squamous metaplastic cells (endocervical component) are present. Performed By: #### H IV12 #### [facility] [address] [place] [address] Andriy Sarita CBC AUTO DIFFon 07-31-2021 BASO # 0.0 103/ul Normal 0.0-0.1 [facility] Comment on above: Performed By: #### H IV12 #### [facility] [address] [place] [address] Andriy Sarita Basophils/100 WBC (Bld) 0.2 % Normal 0.2-2.0 [facility] Comment on above: Performed By: #### H IV12 #### [facility] [address] [place] [address] Andriy Sarita EO # 0.2 103/ul Normal 0.0-0.7 [facility] Comment on above: Performed By: #### H IV12 #### [facility] [address] [place] [address] Andriy Sarita Eosinophils/100 WBC (Bld) 1.4 % Normal 0.9-7.0 [facility] Comment on above: Performed By: #### H IV12 #### [facility] [address] [id number] Andriy Sarita Erythrocyte distribution width (RBC) [Ratio] 16.9 % Critically high 11.0-15.0 [facility] Comment on above: Performed By: #### H IV12 #### [facility] [address] [address] Andriy Sarita Hematocrit (Bld) [Volume fraction] 28.9 % Critically low 36.0-48.0 [facility] Comment on above: Performed By: #### H IV12 #### [facility] [address] [place] [address] Andriy Sarita Hemoglobin (Bld) [Mass/Vol] 9.2 g/dL Critically low 12.0-16.0 [facility] Comment on above: Result Comment: NUVIA ENT DELIVERED Performed By: #### H IV12 #### [facility] [address] [place] [address] Andriy Sarita IG # 0.07 10e3/ul Critically high 0.00-0.03 [facility] Comment on above: Performed By: #### H IV12 #### [facility] [address] [place] [address] Andriy Sarita IG % 0.7 % Critically high 0.0-0.[address] [facility] Comment on above: Performed By: #### H IV12 #### [facility] [address] [place] [address] Andriy Sarita LYMPH # 3.2 103/ul Normal 1.2-3.8 [facility] Comment on above: Performed By: #### H IV12 #### [facility] [address] [place] [address] Andriy Sarita Lymphocytes/100 WBC (Bld) 29.7 % Normal 20.5-60.0 [facility] Comment on above: Performed By: #### H IV12 #### [facility] [address] [place], [place] [address] Andriy Sarita MANUAL DIFF REQ NO Normal [facility] Comment on above: Performed By: #### H IV12 #### [facility] [address] [place], [place] [address] Andriylogan Stein MCH (RBC) [Entitic mass] 28.0 pg Normal 26.7-34.0 [facility] Comment on above: Performed By: #### H IV12 #### [facility] [address] [id number] Andriy Stein MCHC (RBC) [Mass/Vol] 31.8 g/dL Normal 29.9-35.2 [facility] Comment on above: Performed By: #### H IV12 #### [facility] [address] [id number] Andriylogan Stein MCV (RBC) [Entitic vol] 87.8 fL Normal 81.0-99.0 [facility] Comment on above: Performed By: #### H IV12 #### [facility] [address] [place] [address] Andriylogan Stein MONO # 0.9 103/ul Critically high 0.3-0.[address] [facility] Comment on above: Performed By: #### H IV12 #### [facility] [address] [place], [place] [address] Andriylogan Stein Monocytes/100 WBC (Bld) 8.3 % Normal 1.7-12.0 [facility] Comment on above: Performed By: #### H IV12 #### [facility] [address] [place], [place] [address] Andriy Stein NEUT # 6.3 103/ul Normal 1.4-6.5 [facility] Comment on above: Performed By: #### H IV12 #### [facility] [address] [place], [place] [address] Andriy Sarita Neutrophils/100 WBC (Bld) 59.7 % Normal 43.0-75.0 [facility] Comment on above: Performed By: #### H IV12 #### [facility] [address] [place], [place] [address] Andriylogan Stein Platelet mean volume (Bld) [Entitic vol] 9.7 fL Normal 9.5-13.5 [facility] Comment on above: Performed By: #### H IV12 #### [facility] [address] [place], [place] [address] Andriy Stein PLT 173 103/ul Normal 150-450 [facility] Comment on above: Performed By: #### H IV12 #### [facility] [address] [place], [place] [address] Andriy Stein RBC 3.29 106/ul Critically low 4.20-5.40 [facility] Comment on above: Performed By: #### H IV12 #### [facility] [address] [place], [place] [address] Andriy Stein WBC 10.6 103/ul Normal 4.0-11.0 [facility] Comment on above: Performed By: #### H IV12 #### [facility] [address] [place] [address] Andriy Stein ASYMPTOMATIC COVID-19 ANTIGE Non 07-30-2021 EUA Statement SEE BELOW Normal [facility] Comment on above: Result Comment: This [...] sooner. Performed By: #### H BSANS #### [facility] [address] [place] [address] Andriy Stein SARS-CoV-2 (COVID-19) RNA CARLITOS+probe Ql (Unsp spec) Negative Normal NEGATIVE [facility] Comment on above: Result Comment: Nega tive results are presumptive. They do not preclude infection and should not be used as the sole basis for treatment decisions. Additional confirmatory testing by a molecular method should be considered. Performed By: #### H BSANS #### [facility] [address] [place], [place] [address] Andriy Stein CBC AUTO DIFFon 07-30-2021 BASO # 0.0 103/ul Normal 0.0-0.1 [facility] Comment on above: Performed By: #### C BC ####[facility] [address] [address]Dr. Chelsiebriana Conner Basophils/100 WBC (Bld) 0.2 % Normal 0.2-2.0 [facility] Comment on above: Performed By: #### C BC ####[facility] [address] [address]Dr. Chelsiebriana Conner EO # 0.1 103/ul Normal 0.0-0.7 [facility] Comment on above: Performed By: #### C BC ####[facility] [address] [address]Dr. Sunil Conner Eosinophils/100 WBC (Bld) 1.0 % Normal 0.9-7.0 [facility] Comment on above: Performed By: #### C BC ####[facility] [address] [place], [place] [address]Dr. Sunil Conner Erythrocyte distribution width (RBC) [Ratio] 17.0 % Critically high 11.0-15.0 [facility] Comment on above: Performed By: #### C BC ####[facility] [address] [address]Dr. Sunil Conner Hematocrit (Bld) [Volume fraction] 37.5 % Normal 36.0-48.0 [facility] Comment on above: Performed By: #### C BC ####[facility] [address] [place], [place] [address]Dr. Sunil Conner Hemoglobin (Bld) [Mass/Vol] 12.3 g/dL Normal 12.0-16.0 [facility] Comment on above: Performed By: #### C BC ####[facility] [address] [place], [place] [address]Dr. Sunil Conner IG # 0.05 10e3/ul Critically high 0.00-0.03 [facility] Comment on above: Performed By: #### C BC ####[facility] [address] [address]DrWilson Sunil Conner IG % 0.5 % Normal 0.0-0.5 [facility] Comment on above: Performed By: #### C BC ####[facility] [address] [address]DrWilson Sunil Ubaldo LYMPH # 2.8 103/ul Normal 1.2-3.8 [facility] Comment on above: Performed By: #### C BC ####[facility] [address] [address]DrWilson Sunil Ubaldo Lymphocytes/100 WBC (Bld) 28.4 % Normal 20.5-60.0 [facility] Comment on above: Performed By: #### C BC ####[facility] [address] [place], [place] [address]DrWilson Chelsiebriana Conner MANUAL DIFF REQ NO Normal [facility] Comment on above: Performed By: #### C BC ####[facility] [address] [address]Dr. Sunil Ubaldo MCH (RBC) [Entitic mass] 28.5 pg Normal 26.7-34.0 [facility] Comment on above: Performed By: #### C BC ####[facility] [address] [place], [place] [address]Dr. Sunil Ubaldo MCHC (RBC) [Mass/Vol] 32.8 g/dL Normal 29.9-35.2 [facility] Comment on above: Performed By: #### C BC ####[facility] [address] [place], [place] [address]DrWilson Sunil Ubaldo MCV (RBC) [Entitic vol] 86.8 fL Normal 81.0-99.0 [facility] Comment on above: Performed By: #### C BC ####[facility] [address] [place], [place] [address]DrWilson Conner MONO # 0.8 103/ul Normal 0.3-0.8 [facility] Comment on above: Performed By: #### C BC ####[facility] [address] [address]Dr. Sunil Conner Monocytes/100 WBC (Bld) 7.9 % Normal 1.7-12.0 [facility] Comment on above: Performed By: #### C BC ####[facility] [address] [address]Dr. Sunil Conner NEUT # 6.0 103/ul Normal 1.4-6.5 [facility] Comment on above: Performed By: #### C BC ####[facility] [address] [address]Dr. Sunil Conner Neutrophils/100 WBC (Bld) 62.0 % Normal 43.0-75.0 [facility] Comment on above: Performed By: #### C BC ####[facility] [address] [place], [place] [address]Dr. Sunil Conner Platelet mean volume (Bld) [Entitic vol] 10.2 fL Normal 9.5-13.5 [facility] Comment on above: Performed By: #### C BC ####[facility] [address] [place], [place] [address]Dr. Sunil Conner PLT 207 103/ul Normal 150-450 [facility] Comment on above: Performed By: #### C BC ####[facility] [address] [address]Dr. Sunil Conner RBC 4.32 106/ul Normal 4.20-5.40 [facility] Comment on above: Performed By: #### C BC ####[facility] [address] [id number]. Sunil Conner WBC 9.7 103/ul Normal 4.0-11.0 [facility] Comment on above: Performed By: #### C BC ####[facility] [address] [address]Dr. Sunil Conner DRUG SCREEN RAPID (URINE)on 07-30-2021 AMP Negative Normal NEGATIVE [facility] Comment on above: Performed By: #### D RUGRPD ####[facility] [address] [address]Dr. Sunil Conner BAR Negative Normal NEGATIVE [facility] Comment on above: Performed By: #### D RUGRPD ####[facility] [address] [address]Dr. Sunil Conner BUP Negative Normal NEGATIVE [facility] Comment on above: Performed By: #### D RUGRPD ####[facility] [address] [place], [place] [address]Dr. Sunil Conner BZO Negative Normal NEGATIVE [facility] Comment on above: Performed By: #### D RUGRPD ####[facility] [address] [place], [place] [address]Dr. Sunil Conner TAMICA Negative Normal NEGATIVE [facility] Comment on above: Performed By: #### D RUGRPD ####[facility] [address] [place], [place] [address]Dr. Sunil Conner CUT-OFFS SEE BELOW Normal [facility] Comment on above: Result Comment: AMP (Amphetamine): 500ng/mL, BAR (Barbituates): 200 ng/mL, BZO (Benzodiazepines): 150 ng/mL, BUP (Buprenorphine): 10 ng/mL, TAMICA (Cocaine): 150 ng/mL, mAMP (Methamphetamine): 500 ng/mL, MTD (Methadone): 200 ng/mL, OPI (Opiates): 100 ng/mL, OXY (Oxycodone): 100 ng/mL, PCP (Phencyclidine): 25 ng/mL, PPX (Propoxyphene): 300 ng/mL, THC (Cannabinoids): 50 ng/mL, TCA (Trycyclic Antidepressants): 300 ng/mL Performed By: #### D RUGRPD ####[facility] [address] [place], [place] [address]Dr. Sunil Conner DRUG CUT HEADER DRUG CLASS TEST SYSTEM CUT-OFF CONCENTRATIONS ARE FOLLOWS: Normal [facility] Comment on above: Performed By: #### D RUGRPD ####[facility] [address] [place], [place] [address]Dr. Sunil Conner mAMP Negative Normal NEGATIVE [facility] Comment on above: Performed By: #### D RUGRPD ####[facility] [address] [place] [id number]. Sunil Conner MTD Negative Normal NEGATIVE [facility] Comment on above: Performed By: #### D RUGRPD ####[facility] [address] [place] [id number]. Sunil Conner OPI Negative Normal NEGATIVE [facility] Comment on above: Performed By: #### D RUGRPD ####[facility] [address] [place] [address]Dr. Sunil Conner OXY Negative Normal NEGATIVE [facility] Comment on above: Performed By: #### D RUGRPD ####[facility] [address] [place] [address]Dr. Sunil Ubaldo PCP Negative Normal NEGATIVE [facility] Comment on above: Performed By: #### D RUGRPD ####[facility] [address] [place] [address]Dr. Sunil Conner PPX Negative Normal NEGATIVE [facility] Comment on above: Performed By: #### D RUGRPD ####[facility] [address] [place] [address]Dr. Sunil Conner TCA Negative Normal NEGATIVE [facility] Comment on above: Performed By: #### D RUGRPD ####[facility] [address] [place] [address]Dr. Sunil Ubaldo THC Negative Normal NEGATIVE [facility] Comment on above: Performed By: #### D RUGRPD ####[facility] [address]ys[address] [place] [address]Dr. Sunil Conner TYPE AND SCREENon 07-30-2021 TYPE AND SCREEN Negative Normal [facility] Comment on above: Performed By: #### T NS #### [facility] [address] [address] [address] Sunil Conner US PREG BIOPHY W [...] by: NADIA DOOLEY Date: 2021-07-13 10:[address] [facility] US PREG GROWTHon 07-11-2021 US PREG [...] EFW: 6 lbs. 3 oz., 37% FL/AC: 0.010049 FL/BPD: 0.024688 HC/AC: 0.733687 GESTATIONAL AGE: Age by EDC: 36 weeks 4 days FAHEEM by EDC: 08/04/2021 Age by US: 35 weeks 3 days FAHEEM by US: 08/12/2021 IMPRESSION: Normal interval growth Electronically authenticated by: NADIA DOOLEY Date: 2021-07-11 10:[address] [facility] COVID Quick Testingon 2021 Result Negative [employer] Other Quick Strepon 07-09-2021 S. pyogenes Org specific cx Ql (Throat) Negative [employer] Other Quick Strep [employer] Other GROUP B STREP CULTUREon 06-25 S. agalactiae Ag Ql (Unsp spec) Culture Observations: NEGATIVE FOR GROUP B STREPTOCOCCUS. Normal [facility] Comment on above: Performed By: #### G BSCX #### [facility] [address] [address] [address] Sunil Conner PREG GROWTHon 06-20-2021 US [...] EFW: 4 lbs. 14 oz., 53% FL/AC: 0.823548 FL/BPD: 0.597803 HC/AC: 1.129918 GESTATIONAL AGE: Age by EDC: 33 weeks 4 days FAHEEM by EDC: 08/04/2021 Age by US: 33 weeks 1 day FAHEEM by US: 08/07/2021 IMPRESSION: Normal interval growth Electronically authenticated by: NADIA DOOLEY Date: 2021-06-20 11:46 Normal [facility] CBC AUTO DIFFon 06-08-2021 BASO # 0.0 103/ul Normal 0.0-0.1 [facility] Comment on above: Performed By: #### H IV12 #### [facility] [address] [place] [address] Andriy Sarita Basophils/100 WBC (Bld) 0.5 % Normal 0.2-2.0 T [facility] Comment on above: Performed By: #### H IV12 #### [facility] [address] [place], [place] [id number] Andriy Sarita EO # 0.1 103/ul Normal 0.0-0.7 [facility] Comment on above: Performed By: #### H IV12 #### [facility] [address] [place], [place] [id number] Andriy Sarita Eosinophils/100 WBC (Bld) 1.3 % Normal 0.9-7.0 [facility] Comment on above: Performed By: #### H IV12 #### [facility] [address] [place] [address] Andriy Stein Erythrocyte distribution width (RBC) [Ratio] 19.8 % Critically high 11.0-15.0 [facility] Comment on above: Performed By: #### H IV12 #### [facility] [address] [place] [address] Andiry Stein Hematocrit (Bld) [Volume fraction] 34.9 % Critically low 36.0-48.0 [facility] Comment on above: Performed By: #### H IV12 #### [facility] [address] [place] [address] Andriy Stein Hemoglobin (Bld) [Mass/Vol] 11.1 g/dL Critically low 12.0-16.0 [facility] Comment on above: Performed By: #### H IV12 #### [facility] [address] [place] [address] Andriylogan Stein IG # 0.04 10e3/ul Critically high 0.00-0.03 [facility] Comment on above: Performed By: #### H IV12 #### [facility] [address] [place] [address] Andriylogan Stein IG % 0.5 % Normal 0.0-0.5 [facility] Comment on above: Performed By: #### H IV12 #### [facility] [address] [place] [address] Andriy Sarita LYMPH # 2.1 103/ul Normal 1.2-3.8 [facility] Comment on above: Performed By: #### H IV12 #### [facility] [address] [place] [address] Andriy Sarita Lymphocytes/100 WBC (Bld) 24.8 % Normal 20.5-60.0 [facility] Comment on above: Performed By: #### H IV12 #### [facility] [address] [place] [address] Andriy Stein MANUAL DIFF REQ NO Normal [facility] Comment on above: Performed By: #### H IV12 #### [facility] [address] [place], [place] [address] Andriy Stein MCH (RBC) [Entitic mass] 27.5 pg Normal 26.7-34.0 [facility] Comment on above: Performed By: #### H IV12 #### [facility] [address] [place], [place] [address] Andriy Stein MCHC (RBC) [Mass/Vol] 31.8 g/dL Normal 29.9-35.2 [facility] Comment on above: Performed By: #### H IV12 #### [facility] [address] [place], [place] [address] Andriy Stein MCV (RBC) [Entitic vol] 86.6 fL Normal 81.0-99.0 [facility] Comment on above: Performed By: #### H IV12 #### [facility] [address] [place] [address] Andriy Rodgersen MONO # 0.7 103/ul Normal 0.3-0.8 [facility] Comment on above: Performed By: #### H IV12 #### [facility] [address] [place] [address] Andriy Stein Monocytes/100 WBC (Bld) 8.7 % Normal 1.7-12.0 [facility] Comment on above: Performed By: #### H IV12 #### [facility] [address] [place] [address] Andriy Stein NEUT # 5.4 103/ul Normal 1.4-6.5 [facility] Comment on above: Performed By: #### H IV12 #### [facility] [address] [place], [place] [address] Andriy Stein Neutrophils/100 WBC (Bld) 64.2 % Normal 43.0-75.0 [facility] Comment on above: Performed By: #### H IV12 #### [facility] [address] [place], [place] [address] Andriy Stein Platelet mean volume (Bld) [Entitic vol] 9.9 fL Normal 9.5-13.5 [facility] Comment on above: Performed By: #### H IV12 #### [facility] [address] [place], [place] [address] Andriy Rodgersen PLT 232 103/ul Normal 150-450 [facility] Comment on above: Performed By: #### H IV12 #### [facility] [address] [place] [id number] Andriy Sarita RBC 4.03 106/ul Critically low 4.20-5.[address] [facility] Comment on above: Performed By: #### H IV12 #### [facility] [address] [place], [place] [address] Andriy Sarita WBC 8.5 103/ul Normal 4.0-11.0 [facility] Comment on above: Performed By: #### H IV12 #### [facility] [address] [place] [id number] Andriy Stein GTT 3 HR PREGon 04-30-2021 Glucose [Mass/Vol] 85 mg/dL Normal 74-106 [facility] Comment on above: Performed By: #### G TT3P ####[facility] [address] [place] [address]Dr. Yilan Conner Glucose [Mass/Vol] 188 mg/dL Normal [facility] Comment on above: Performed By: #### G TT3P ####[facility] [address] [place] [address]Dr. Yilan Conner Glucose [Mass/Vol] 133 mg/dL Normal [facility] Comment on above: Performed By: #### G TT3P ####[facility] [address] [place] [address]Dr. Yilan Conner Glucose [Mass/Vol] 122 mg/dL Normal [facility] Comment on above: Performed By: #### G TT3P ####[facility] [address] [place] [address]Dr. Yilan Conner CBC AUTO DIFFon 04-28-2021 BASO # 0.0 103/ul Normal 0.0-0.1 [facility] Comment on above: Performed By: #### C BC #### [facility] [address] [address] [address] Sunil Conner Basophils/100 WBC (Bld) 0.3 % Normal 0.2-2.0 [facility] Comment on above: Performed By: #### C BC #### [facility] [address] [address] [address] Sunil Conner EO # 0.1 103/ul Normal 0.0-0.7 [facility] Comment on above: Performed By: #### C BC #### [facility] [address] [address] [address] Sunil Conner Eosinophils/100 WBC (Bld) 1.2 % Normal 0.9-7.0 [facility] Comment on above: Performed By: #### C BC #### [facility] [address] [place] [address] Dr. Sunil Conner Erythrocyte distribution width (RBC) [Ratio] 14.6 % Normal 11.0-15.0 [facility] Comment on above: Performed By: #### C BC #### [facility] [address] [place] [address] Dr. Sunil Conner Hematocrit (Bld) [Volume fraction] 31.6 % Critically low 36.0-48.0 [facility] Comment on above: Performed By: #### C BC #### [facility] [address] [place] [address] Dr. Sunil Conner Hemoglobin (Bld) [Mass/Vol] 9.9 g/dL Critically low 12.0-16.0 [facility] Comment on above: Performed By: #### C BC #### [facility] [address] [address] [address] Sunil Conner IG # 0.05 10e3/ul Critically high 0.00-0.03 [facility] Comment on above: Performed By: #### C BC #### [facility] [address] [address] [address] Sunil Conner IG % 0.5 % Normal 0.0-0.5 [facility] Comment on above: Performed By: #### C BC #### [facility] [address] [address] [address] Sunil Conner LYMPH # 2.4 103/ul Normal 1.2-3.8 [facility] Comment on above: Performed By: #### C BC #### [facility] [address] [place] [address] Dr. Sunil Conner Lymphocytes/100 WBC (Bld) 25.6 % Normal 20.5-60.0 [facility] Comment on above: Performed By: #### C BC #### [facility] [address] [place] [address] Dr. Sunil Conner MANUAL DIFF REQ NO Normal [facility] Comment on above: Performed By: #### C BC #### [facility] [address] [place] [address] Dr. Sunil Conner MCH (RBC) [Entitic mass] 25.8 pg Critically low 26.7-34.0 [facility] Comment on above: Performed By: #### C BC #### [facility] [address] [place] [address] Dr. Sunil Conner MCHC (RBC) [Mass/Vol] 31.3 g/dL Normal 29.9-35.2 [facility] Comment on above: Performed By: #### C BC #### [facility] [address] [place] [address] Dr. Sunil Conner MCV (RBC) [Entitic vol] 82.3 fL Normal 81.0-99.0 [facility] Comment on above: Performed By: #### C BC #### [facility] [address] [place] [address] Dr. Sunil Conner MONO # 0.5 103/ul Normal 0.3-0.8 [facility] Comment on above: Performed By: #### C BC #### [facility] [address] [place] [address] Dr. Sunil Conner Monocytes/100 WBC (Bld) 5.3 % Normal 1.7-12.0 [facility] Comment on above: Performed By: #### C BC #### [facility] [address] [place] [address] Dr. Sunil Conner NEUT # 6.4 103/ul Normal 1.4-6.5 [facility] Comment on above: Performed By: #### C BC #### [facility] [address] [place] [address] Dr. Sunil Conner Neutrophils/100 WBC (Bld) 67.1 % Normal 43.0-75.0 [facility] Comment on above: Performed By: #### C BC #### [facility] [address] [place] [address] Dr. Sunil Conner Platelet mean volume (Bld) [Entitic vol] 10.3 fL Normal 9.5-13.5 [facility] Comment on above: Performed By: #### C BC #### [facility] [address] [place] [address] Dr. Sunil Conner PLT 255 103/ul Normal 150-450 [facility] Comment on above: Performed By: #### C BC #### [facility] [address] [place] [address] Dr. Sunil Conner RBC 3.84 106/ul Critically low 4.20-5.[address] [facility] Comment on above: Performed By: #### C BC #### [facility] [address] [place] [address] Dr. Sunil Conner WBC 9.5 103/ul Normal 4.0-11.0 [facility] Comment on above: Performed By: #### C BC #### [facility] [address] [place] [address] Dr. Sunil Conner GLUCOSE - 1HRon 04-28-2021 Glucose [Mass/Vol] 171 mg/dL Critically high 74-106 [facility] Comment on above: Performed By: #### H IV12 #### [facility] [address] [place] [address] Andriy Sarita VAGINITIS/VAGINOSIS DNA PROB Douglas 04-21-2021 Kena species Positive Abnormal Negative [facility] Comment on above: Performed By: #### V AGINT #### [facility] [address] [address] [address] Sunil Conner Gardnerella vaginalis Negative Normal Negative [facility] Comment on above: Performed By: #### V AGINT #### [facility] [address] [address] [address] Sunil Conner Trichomonas vaginalis Negative Normal Negative [facility] Comment on above: Performed By: #### V AGINT #### [facility] [address] [address] [address] Sunil Conner US PREG ANATOMY SINGLEon [...] weeks 3 days EFW:12 ounces, 47%; FL/AC: 0.088825 FL/BPD: 0.245246 HC/AC: 1.450567 GESTATIONAL AGE: Age by EDC: 20 weeks 4 days FAHEEM by EDC: 08/04/2021 Age by current US: 20 weeks 2 days FAHEEM by current US: 08/06/2021 IMPRESSION: Normal anatomy scan *Reference: [employer] Practice Guideline for the performance of Obstetric Ultrasound Examinations, March 25, 2007. Electronically authenticated by: NADIA DOOLEY Date: 2021-03-21 16:[address] [facility] PAP ACOG PANEL 3: 21 to 29on 02-21-2021 . . Normal [facility] Comment on above: Result Comment: Perf ormed at: WB Performed By: #### H IV12 #### [facility] [address] [place] [address] Andriy Stein Age Gdln ACOG Testing 21-[address] [facility] Comment on above: Performed By: #### H IV12 #### [facility] [address] [address] Andriy Stein Chlamydia, Nuc. Acid Amp Negative Normal Negative [facility] Comment on above: Result Comment: Perf ormed at: =G Performed By: #### H IV12 #### [facility] [address] [place] [address] Andriy Stein DIAGNOSIS: Comment Abnormal [facility] Comment on above: Result Comment: EPIT HELIAL CELL ABNORMALITY. LOW-GRADE SQUAMOUS INTRAEPITHELIAL LESION (LSIL); MILD DYSPLASIA. Performed at: WB Performed By: #### H IV12 #### [facility] [address] [place] [address] Andriy Stein Electronically signed by: Comment Normal [facility] Comment on above: Result Comment: Mayela العلي MD, Pathologist Performed at: WB Performed By: #### H IV12 #### [facility] [address] [place] [address] Andriy Stein Gonococcus, Nuc. Acid Amp Negative Normal Negative [facility] Comment on above: Result Comment: Perf ormed at: =G Performed By: #### H IV12 #### [facility] [address] [place] [address] Andriy Stein Methodology: Comment Normal [facility] Comment on above: Result Comment: This liquid based ThinPrep(R) pap test was screened with the use of an image guided system. Performed at: WB Performed By: #### H IV12 #### [facility] [address] [place] [address] Andriy Stein Note: Comment Normal [facility] Comment on above: Result Comment: The [...] WB Performed By: #### H IV12 #### [facility] [address] [address] Andriy Stein Pathologist Provided ICD10 Comment Normal [facility] Comment on above: Result Comment: [id number] Performed at: WB Performed By: #### H IV12 #### [facility] [address] [address] Andriy Stein Performed by: Comment Normal [facility] Comment on above: Result Comment: Funmi Partida, [employer] (ASCP) Performed at: WB Performed By: #### H IV12 #### [facility] [address] [place] [address] Andriy Stein Recommendation: Comment Abnormal [facility] Comment on above: Result Comment: Sugg est follow up as clinically appropriate. Performed at: WB Performed By: #### H IV12 #### [facility] [address] [address] Andriy Stein Reflex Criteria: Comment Normal [facility] Comment on above: Result Comment: The HPV DNA reflex criteria were not met with this specimen result therefore, no HPV testing was performed. . Performed at: WB Performed By: #### H IV12 #### [facility] [address] [address] Andriy Stein Specimen adequacy: Comment Normal [facility] Comment on above: Result Comment: Sati sfactory for evaluation. Endocervical and/or squamous metaplastic cells (endocervical component) are present. Performed at: WB Performed By: #### H IV12 #### [facility] [address] [place] [id number] Andriylogan Stein AFP MATERNAL FOR SPINA BIFID Aon 02-19-2021 AFP MoM 1.[address] [facility] Comment on above: Performed By: #### H IV12 #### [facility] [address] [place] [address] Andriy Sarita AFP Value 35.0 ng/mL Normal [facility] Comment on above: Performed By: #### H IV12 #### [facility] [address] [address] Andriy Stein AFP, Serum for Spina Bifida Report Normal [facility] Comment on above: Performed By: #### H IV12 #### [facility] [address] [place] [address] Andriy Stein Comment Comment Normal [facility] Comment on above: Result Comment: Jassi Perez, Ph.D., [facility] Director . References: Available Upon Request. . Multiples Of Median Cutoffs For AFP Elevations Beebe 2.5 Black 2.8 IDD 2.0 Twins 4.5 Abbreviation Definitions IDD - Insulin Dep Diabetes OSBR - Open Spina Bifida Risk . For further inquiries contact [employer] at [phone]. Performed By: #### H IV12 #### [facility] [address] [place] [address] Andriy Stein Gest Age Collection Date 16.[address] [facility] Comment on above: Performed By: #### H IV12 #### [facility] [address] [place] [address] Andriy Stein Gestat, Age Based on Ultrasound Normal [facility] Comment on above: Result Comment: 16.0 on 02/17/2021 Recalculations are not recommended when gestational dating by LMP and ultrasound are within 10 days. Performed By: #### H IV12 #### [facility] [address] [place] [address] Andriy Stein Insulin Dep Diabetes No Normal [facility] Comment on above: Performed By: #### H IV12 #### [facility] [address] [place] [address] Andriy Stein Interpretation Comment Normal [facility] Comment on above: Result Comment: Inte rpretation: [...] Customer Services to discuss available options. The [employer] recommends amniocentesis be offered to women age 35 and older. Performed By: #### H IV12 #### [facility] [address] [id number] Andriy Stein [age] Normal [facility] Comment on above: Performed By: #### H IV12 #### [facility] [address] [place] [address] Andriy Stein Multiple Gestation No Normal [facility] Comment on above: Performed By: #### H IV12 #### [facility] [address] [address] Andriy Stein OSBR Risk 1 [place] [address] Normal [facility] Comment on above: Performed By: #### H IV12 #### [facility] [address] [place] [address] Andriy Stein PDF . Normal [facility] Comment on above: Performed By: #### H IV12 #### [facility] [address] [address] Andriy Stein Race Normal [facility] Comment on above: Performed By: #### H IV12 #### [facility] [address] [place] [address] Andriy Stein Test Results: Negative Normal [facility] Comment on above: Performed By: #### H IV12 #### [facility] [address] [address] Andriy Stein HEMOGLOBINOPATHY FRACTIONATI ON CASCADEon 02-07-2021 HGB A 97.3 % Normal 96.4-98.8 [facility] Comment on above: Performed By: #### H GBCAS ####[facility] [address] [place] [address]Gerlogan Stein HGB A2 2.7 % Normal 1.8-3.2 [facility] Comment on above: Performed By: #### H GBCAS ####[facility] [address] Sarita HGB F 0.0 % Normal 0.0-2.0 [facility] Comment on above: Performed By: #### H GBCAS ####[facility] [address] Sarita HGB S 0.0 % Normal 0.0 [facility] Comment on above: Performed By: #### H GBCAS ####[facility] [address] Sarita Interpretation: Comment Normal [facility] Comment on above: Result Comment: Norm al hemoglobin present; no hemoglobin variant or thalassemia observed. Performed By: #### H GBCAS ####[facility] [address] Sarita VARICELLA IGG ABon Varicella Zoster IgG 406 index Normal Immune >165 [facility] Comment on above: Result Comment: Nega tive <135 Equivocal 135 - 165 Positive >165 A positive result generally indicates exposure to the pathogen or administration of specific immunoglobulins, but it is not indication of active infection or stage of disease. Performed By: #### V ARCEL ####[facility] [address] [place] [address] Sarita HEP B SURFACE ANTIGEN SCREEN on 02-06-2021 HBsAg Screen Negative Normal Negative [facility] Comment on above: Performed By: #### H BSANS #### [facility] [address] Sarita HEPATITIS C ANTIBODYon 02-06 Hep C Virus Ab <0.1 Normal 0.0-0.9 [facility] Comment on above: Result Comment: Nega tive: < 0.8 Indeterminate: 0.8 - 0.9 Positive: > 0.9 . The CDC recommends that a positive HCV antibody result be followed up with a HCV Nucleic Acid Amplification test ([id number]). Performed By: #### H CV ####[facility] [address] [place], [place] [address] HIV 1 AND 2 WITH REFLEXon HIV Screen 4th Generation wRfx Non-Reactive Normal Non Reactive [facility] Comment on above: Performed By: #### H IV12 #### [facility] [address] [place] [address] Andriy Stein RPR QUANTon 02-06-2021 Rapid Plasma Reagin, Quant Non-Reactive Normal NonRea<1:1 [facility] Comment on above: Performed By: #### H IV12 #### [facility] [address] [place] [address] Andriy Stein RUBELLA AB IGGon 02-06-2021 Rubella Antibodies, IgG 1.72 index Normal Immune >0.99 [facility] Comment on above: Result Comment: Non- immune <0.90 Equivocal 0.90 - 0.99 Immune >0.99 Performed By: #### H IV12 #### [facility] [address] [place] [address] Andriy Stein CBC AUTO DIFFon 02-05-2021 BASO # 0.0 103/ul Normal 0.0-0.1 [facility] Comment on above: Performed By: #### H BSANS #### [facility] [address] [place], [place] [id number] Andriy Sarita Basophils/100 WBC (Bld) 0.3 % Normal 0.2-2.0 [facility] Comment on above: Performed By: #### H BSANS #### [facility] [address] [place], [place] [address] Andriylogan Stein EO # 0.2 103/ul Normal 0.0-0.7 [facility] Comment on above: Performed By: #### H BSANS #### [facility] [address] [place] [address] Andriy Sarita Eosinophils/100 WBC (Bld) 1.7 % Normal 0.9-7.0 [facility] Comment on above: Performed By: #### H BSANS #### [facility] [address] [place] [address] Andriy Sarita Erythrocyte distribution width (RBC) [Ratio] 14.0 % Normal 11.0-15.0 [facility] Comment on above: Performed By: #### H BSANS #### [facility] [address] [address] Andriylogan Stein Hematocrit (Bld) [Volume fraction] 34.3 % Critically low 36.0-48.0 [facility] Comment on above: Performed By: #### H BSANS #### [facility] [address] [address] Andriy Sarita Hemoglobin (Bld) [Mass/Vol] 11.0 g/dL Critically low 12.0-16.0 [facility] Comment on above: Performed By: #### H BSANS #### [facility] [address] [place] [address] Andriy Sarita IG # 0.02 10e3/ul Normal 0.00-0.03 [facility] Comment on above: Performed By: #### H BSANS #### [facility] [address] [place] [address] Andriy Sarita IG % 0.2 % Normal 0.0-0.5 [facility] Comment on above: Performed By: #### H BSANS #### [facility] [address] [place] [address] Andriylogan Stein LYMPH # 3.4 103/ul Normal 1.2-3.8 [facility] Comment on above: Performed By: #### H BSANS #### [facility] [address] [place] [address] Andriy Stein Lymphocytes/100 WBC (Bld) 38.7 % Normal 20.5-60.0 [facility] Comment on above: Performed By: #### H BSANS #### [facility] [address] [place] [address] Andriy Stein MANUAL DIFF REQ NO Normal [facility] Comment on above: Performed By: #### H BSANS #### [facility] [address] [place] [address] Andriy Stein MCH (RBC) [Entitic mass] 27.2 pg Normal 26.7-34.0 [facility] Comment on above: Performed By: #### H BSANS #### [facility] [address] [address] Andriylogan Stein MCHC (RBC) [Mass/Vol] 32.1 g/dL Normal 29.9-35.2 [facility] Comment on above: Performed By: #### H BSANS #### [facility] [address] [address] Andriy Sarita MCV (RBC) [Entitic vol] 84.9 fL Normal 81.0-99.0 [facility] Comment on above: Performed By: #### H BSANS #### [facility] [address] [place] [address] Andriy Sarita MONO # 0.7 103/ul Normal 0.3-0.8 [facility] Comment on above: Performed By: #### H BSANS #### [facility] [address] [place] [address] Andriy Sarita Monocytes/100 WBC (Bld) 8.3 % Normal 1.7-12.0 [facility] Comment on above: Performed By: #### H BSANS #### [facility] [address] [place] [address] Andriy Sariat NEUT # 4.4 103/ul Normal 1.4-6.5 [facility] Comment on above: Performed By: #### H BSANS #### [facility] [address] [place] [address] Andriy Sarita Neutrophils/100 WBC (Bld) 50.8 % Normal 43.0-75.0 [facility] Comment on above: Performed By: #### H BSANS #### [facility] [address] [place] [address] Andriy Sarita Platelet mean volume (Bld) [Entitic vol] 9.8 fL Normal 9.5-13.5 [facility] Comment on above: Performed By: #### H BSANS #### [facility] [address] [place] [address] Andriy Sarita PLT 248 103/ul Normal 150-450 [facility] Comment on above: Performed By: #### H BSANS #### [facility] [address] [place], [place] [address] Andriy Sarita RBC 4.04 106/ul Critically low 4.20-5.40 [facility] Comment on above: Performed By: #### H DANIELNS #### [facility] [address] [id number] Andriy Sarita WBC 8.7 103/ul Normal 4.0-11.0 [facility] Comment on above: Performed By: #### H ANGELA #### [facility] [address] [id number] Andriy Sarita GLYCOHEMOGLOBIN A1Con 2020 ADA RECOMMENDATION ADA THERAPEUTIC TARGET 6.0 - 7.0 ACTION SUGGESTED > 7.[address] [facility] Comment on above: Performed By: #### A 1C ####[facility] [address] [id number] Sarita Glucose [Mass/Vol] 111 mg/dL Normal [facility] Comment on above: Performed By: #### A 1C ####[facility] [address] [id number] Sarita HbA1c (Bld) [Mass fraction] 5.5 % Normal <=6.0 [facility] Comment on above: Performed By: #### A 1C ####[facility] [address] [id number] Sarita GTT 3 HR PREGon 02-05-2021 Glucose [Mass/Vol] 79 mg/dL Normal 74-106 [facility] Comment on above: Performed By: #### H BSADOM #### [facility] [address] [address] Andriy Sarita Glucose [Mass/Vol] 117 mg/dL Normal [facility] Comment on above: Performed By: #### H BSADOM #### [facility] [address] [address] Andriy Sarita Glucose [Mass/Vol] 93 mg/dL Normal [facility] Comment on above: Performed By: #### H ANGELA #### [facility] [address] [place], [place] [address] Andriy Sarita Glucose [Mass/Vol] 46 mg/dL Critically low Th e [facility] Comment on above: Performed By: #### H BSANS #### [facility] [address] [id number] Andriy Sarita TYPE AND SCREENon 02-05-2021 TYPE AND SCREEN Antibody Screen NEGATIVE Blood Bank Notes completed by [email or web address] ABO Rh Typing A Rh Positive Blood Bank Notes completed by yudelka [facility] Comment on above: Performed By: #### T NS #### [facility] [address] [id number] Andriy Sarita CULTURE URINEon 01-28-2021 CULTURE URINE Culture Observations: MODERATE GROWTH OF MIXED GENITAL HUBER. NO POTENTIAL PATHOGENS SEEN. Normal [facility] Comment on above: Performed By: #### U RCX ####[facility] [address] [address]Gerken Sarita UA RANDOM W/MICROSCOPICon BACTERIA SMALL Abnormal NONE SEEN [facility] Comment on above: Performed By: #### H BSANS #### [facility] [address] [place] [address] Andriy Sarita Bilirubin Ql (U) Negative Normal NEGATIVE [facility] Comment on above: Performed By: #### H BSANS #### [facility] [address] [place] [address] Andriy Sarita CAST NONE SEEN Normal NONE SEEN [facility] Comment on above: Performed By: #### H BSANS #### [facility] [address] [place] [address] Andriy Sarita Clarity (U) CLEAR Normal CLEAR [facility] Comment on above: Performed By: #### H BSANS #### [facility] [address] [place] [address] Andriy Sarita Color (U) YELLOW Normal YELLOW [facility] Comment on above: Performed By: #### H BSANS #### [facility] [address] [place] [address] Andriy Sarita Crystals LM Nom (Urine sed) NONE SEEN Normal NONE SEEN [facility] Comment on above: Performed By: #### H BSANS #### [facility] [address] [place] [address] Andriy Sarita Epithelial cells LM Ql (Urine sed) FEW Abnormal NONE SEEN /RARE [facility] Comment on above: Performed By: #### H BSANS #### [facility] [address] [place] [address] Andriy Sarita Glucose Ql (U) Negative Normal NEGATIVE [facility] Comment on above: Performed By: #### H BSANS #### [facility] [address] [place] [address] Andriy Sarita Hemoglobin Ql (U) Negative Normal NEGATIVE [facility] Comment on above: Performed By: #### H BSANS #### [facility] [address] [place] [address] Andriy Sarita Ketones Ql (U) TRACE Abnormal NEGATIVE [facility] Comment on above: Performed By: #### H BSANS #### [facility] [address] [place] [address] Andriy Sarita LEUKOCYTES Negative Normal NEGATIVE [facility] Comment on above: Performed By: #### H BSANS #### [facility] [address] [place] [address] Andriy Sarita MUCOUS SMALL Abnormal NONE SEEN [facility] Comment on above: Performed By: #### H BSANS #### [facility] [address] [place] [address] Andriy Sarita Nitrite Ql (U) Negative Normal NEGATIVE [facility] Comment on above: Performed By: #### H BSANS #### [facility] [address] [place] [address] Andriy Sarita pH (U) 7.0 [pH] Normal 5-9 [facility] Comment on above: Performed By: #### H BSANS #### [facility] [address] [place] [address] Andriy Sarita RBC 0-2 Normal 0-2 [facility] Comment on above: Performed By: #### H BSANS #### [facility] [address] [place] [address] Andriy Sarita SPEC GRAVITY 1.020 Normal 1.005-<=1.[address] [facility] Comment on above: Performed By: #### H BSADOM #### [facility] [address] [place] [address] Andriy Stein UA PROTEIN Negative Normal NEGATIVE/ TRACE [facility] Comment on above: Performed By: #### H BSANS #### [facility] [address] [address] Andriy Stein Urobilinogen Qn (U) 0.2 {Juanito'U}/dL Normal 0.2 - 1. 0 [facility] Comment on above: Performed By: #### H BSADOM #### [facility] [address] [place] [address] Andriylogan Stein WBC NONE SEEN Normal NONE SEEN [facility] Comment on above: Performed By: #### H ANGELA #### [facility] [address] [place] [address] Andriy Stein BUNon 01-26-2021 Urea nitrogen [Mass/Vol] 5.0 mg/dL Critically low 7.0-17.0 [facility] Comment on above: Performed By: #### T SH, LDH, BUN, URIC, ALT, AST ####[facility] [address] [id number] Stein CBC AUTO DIFFon 01-26-2021 BASO # 0.0 103/ul Normal 0.0-0.1 [facility] Comment on above: Performed By: #### C BC #### [facility] [address] [place] [address] Andriy Stein Basophils/100 WBC (Bld) 0.4 % Normal 0.2-2.0 [facility] Comment on above: Performed By: #### C BC #### [facility] [address] [place] [address] Andriy Sarita EO # 0.1 103/ul Normal 0.0-0.7 [facility] Comment on above: Performed By: #### C BC #### [facility] [address] [place] [address] Andriy Stein Eosinophils/100 WBC (Bld) 1.1 % Normal 0.9-7.0 [facility] Comment on above: Performed By: #### C BC #### [facility] [address] [place], [place] [id number] Andriy Stein Erythrocyte distribution width (RBC) [Ratio] 14.6 % Normal 11.0-15.0 [facility] Comment on above: Performed By: #### C BC #### [facility] [address] [place] [address] Andriy Stein Hematocrit (Bld) [Volume fraction] 34.7 % Critically low 36.0-48.0 [facility] Comment on above: Performed By: #### C BC #### [facility] [address] [place] [address] Andriy Stein Hemoglobin (Bld) [Mass/Vol] 11.1 g/dL Critically low 12.0-16.0 [facility] Comment on above: Performed By: #### C BC #### [facility] [address] [place] [address] Andriylogan Stein IG # 0.04 10e3/ul Critically high 0.00-0.03 [facility] Comment on above: Performed By: #### C BC #### [facility] [address] [place] [address] Andriylogan Stein IG % 0.5 % Normal 0.0-0.5 [facility] Comment on above: Performed By: #### C BC #### [facility] [address] [place] [address] Andriylogan Rodgersen LYMPH # 2.1 103/ul Normal 1.2-3.8 [facility] Comment on above: Performed By: #### C BC #### [facility] [address] [place], [place] [address] Andriy Stein Lymphocytes/100 WBC (Bld) 25.5 % Normal 20.5-60.0 [facility] Comment on above: Performed By: #### C BC #### [facility] [address] [place] [address] Andriy Stein MANUAL DIFF REQ NO Normal [facility] Comment on above: Performed By: #### C BC #### [facility] [address] [id number] Andriy Stein MCH (RBC) [Entitic mass] 27.2 pg Normal 26.7-34.0 [facility] Comment on above: Performed By: #### C BC #### [facility] [address] [id number] Andriylogan Stein MCHC (RBC) [Mass/Vol] 32.0 g/dL Normal 29.9-35.2 [facility] Comment on above: Performed By: #### C BC #### [facility] [address] [id number] Andriy Stein MCV (RBC) [Entitic vol] 85.0 fL Normal 81.0-99.0 [facility] Comment on above: Performed By: #### C BC #### [facility] [address] [place] [address] Andriy Rodgersen MONO # 0.6 103/ul Normal 0.3-0.8 [facility] Comment on above: Performed By: #### C BC #### [facility] [address] [place], [place] [address] Andriy Stein Monocytes/100 WBC (Bld) 7.1 % Normal 1.7-12.0 [facility] Comment on above: Performed By: #### C BC #### [facility] [address] [place], [place] [address] Andriylogan Rodgersen NEUT # 5.3 103/ul Normal 1.4-6.5 [facility] Comment on above: Performed By: #### C BC #### [facility] [address] [place], [place] [address] Andriy Sarita Neutrophils/100 WBC (Bld) 65.4 % Normal 43.0-75.0 [facility] Comment on above: Performed By: #### C BC #### [facility] [address] [place], [place] [address] Andriy Sarita Platelet mean volume (Bld) [Entitic vol] 9.5 fL Normal 9.5-13.5 [facility] Comment on above: Performed By: #### C BC #### [facility] [address] [place], [place] [address] Andriy Sarita PLT 258 103/ul Normal 150-450 [facility] Comment on above: Performed By: #### C BC #### [facility] [address] [place], [place] [address] Andriy Sarita RBC 4.08 106/ul Critically low 4.20-5.[address] [facility] Comment on above: Performed By: #### C BC #### [facility] [address] [place], [place] [address] Andriy Sarita WBC 8.1 103/ul Normal 4.0-11.0 [facility] Comment on above: Performed By: #### C BC #### [facility] [address] [place], [place] [address] Andriy Sarita CREATININE CLEARon CREA CLEARANCE 69.46 ml/min Critically low 75.00-115.00 [facility] [place] Comment on above: Performed By: #### H IV12 #### [facility] [address] [place] [address] Andriylogan Stein CREA, 24 HR UR 579.12 mg/24 hr Critically low 800.00-1 ,[address] [facility] Comment on above: Performed By: #### H IV12 #### [facility] [address] [place], [place] [address] Andriy Sarita Creatinine [Mass/Vol] 0.53 mg/dL Normal 0.52-1.04 [facility] Comment on above: Performed By: #### H IV12 #### [facility] [address] [place], [place] [address] Andriy Sarita URINE CREAT 30.48 mg/dL Normal 20.00-300.00 [facility] Comment on above: Performed By: #### H IV12 #### [facility] [address] [place] [address] Andriy Sarita GLUCOSE - 1HRon 01-26-2021 Glucose [Mass/Vol] 150 mg/dL Critically high 74-106 [facility] Comment on above: Performed By: #### G LU1HR ####[facility] [address] [address]Andriy Stein LDHon 01-26-2021 LDH 125 U/L Normal 122-222 [facility] Comment on above: Performed By: #### T SH, LDH, BUN, URIC, ALT, AST ####[facility] [address] [place] PROTEIN 24HR URINEon 021 T PROT, 24 HR UR 32.3 mg/24 hr Critically low 42.0-225.0 [facility] Comment on above: Performed By: #### P ROT24U ####[facility] [address] [place] UR PROT 1.7 mg/dL Normal <=12.0 [facility] Comment on above: Performed By: #### P ROT24U ####[facility] [address] [place] UR TOT VOL 1900 ml/24 HR Normal [facility] Comment on above: Performed By: #### P ROT24U ####[facility] [address] [place] Performed By: #### H IV12 #### [facility] [address] SGOTon 01-26-2021 AST [Catalytic activity/Vol] 17 U/L Normal 14-36 [facility] Comment on above: Performed By: #### T SH, LDH, BUN, URIC, ALT, AST ####[facility] [address] [address]Ger[address] Sarita SGPTon 01-26-2021 ALT [Catalytic activity/Vol] 16 U/L Normal 9-52 [facility] Comment on above: Performed By: #### T SH, LDH, BUN, URIC, ALT, AST ####[facility] On[address] [place] TSHon 01-26-2021 TSH 0.220 uIU/mL Critically low 0.470-4.680 [facility] Comment on above: Performed By: #### T SH, LDH, BUN, URIC, ALT, AST ####[facility] [address] [place] TSH RANGE SEE BELOW Normal [facility] Comment on above: Result Comment: <0.3 4 UIU/ml HYPERTHYROID 0.34-5.60 UIU/ml EUTHYROID >5.60 UIU/ml HYPOTHYROID Performed By: #### T SH, LDH, BUN, URIC, ALT, AST ####[facility] [address] [place] URIC ACID SERUMon 01-26-2021 Urate [Mass/Vol] 3.6 mg/dL Normal 2.5-6.2 [facility] Comment on above: Performed By: #### T SH, LDH, BUN, URIC, ALT, AST ####[facility] [address] [place] P[place] TVon 01-24-2021 [place] PREG TV [...] ANGELO BLANKENSHIP Date: 2021-01-24 10:12 Normal [facility] ABO AND RH TYPEon 01-19-2021 ABO and Rh group Nom (Bld) ABO Rh Typing A Rh Positive Normal [facility] Comment on above: Performed By: #### A BORH ####[facility] [address] [place] PREG QUANT HCGon 01-19-2021 HCG QUANT [address]95[address] mIU/mL Normal [facility] Comment on above: Result Comment: Prev iously reported as: 3 On 01/19/2021 11:21 By CV2 Performed By: #### H IV12 #### [facility] [address] [place], [place] [address] Andriy Stein HCG RANGE SEE BELOW Normal [facility] Comment on above: Result Comment: 5-50 0-1 WEEK 40-300 1-2 WEEKS 100-1,000 2-3 WEEKS 500-6,000 3-4 WEEKS 5,000-200,000 1-2 MONTHS 10,000-100,000 2-3 MONTHS 3,000-50,000 2ND TRIMESTER 1,000-50,000 3RD TRIMESTER Performed By: #### H IV12 #### [facility] [address] [place], [place] [address] Andriy Stein Vital Signs Date Time Vital Sign Value Performing Clinician Facility 03-24-2025 11:04-0400 Body mass index (BMI) [Ratio] 33.77 kg/m2 Jem Ambrosio NP Work Phone: [facility] 03-24-2025 11:04-0400 Body weight 89.25 kg Jem Ambrosio [employer] Work Phone: [facility] 03-24-2025 11:04-0400 Diastolic blood pressure 80 mm[Hg] Jem Ambrosio [employer] Work Phone: [facility] 03-24-2025 11:04-0400 Systolic blood pressure 118 mm[Hg] Jem Ambrosio [employer] Work Phone: [facility] 03-10-2025 13:25-0400 Body mass index (BMI) [Ratio] 33.44 kg/m2 Deborah RUBIN Work Phone: [facility] 03-10-2025 13:25-0400 Body weight 88.36 kg Deborah RUBIN Work Phone: [facility] 03-10-2025 13:25-0400 Diastolic blood pressure 74 mm[Hg] Deborah RUBIN Work Phone: [facility] 03-10-2025 13:25-0400 Systolic blood pressure 136 mm[Hg] Deborah [place] PA Work Phone: [facility] 02-16-2025 15:09-0400 Body mass index (BMI) [Ratio] 33.3 kg/m2 Deborah Aquiles PA Work Phone: [facility] 02-16-2025 15:09-0400 Body weight 88 kg Deborah [place] PA Work Phone: [facility] 02-16-2025 15:09-0400 Diastolic blood pressure 72 mm[Hg] Deborah [place] PA Work Phone: [facility] 02-16-2025 15:09-0400 Systolic blood pressure 128 mm[Hg] Deobrah [place] PA Work Phone: [facility] 02-02-2025 15:03-0400 Body mass index (BMI) [Ratio] 33 kg/m2 Scooby Jenny DO Work Phone: [facility] 02-02-2025 15:03-0400 Body weight 87.2 kg Scooby Jenny DO Work Phone: [facility] 02-02-2025 15:03-0400 Diastolic blood pressure 78 mm[Hg] Scooby Jenny DO Work Phone: [facility] 02-02-2025 15:03-0400 Systolic blood pressure 136 mm[Hg] Scooby Jenny DO Work Phone: [facility] 01-01-2025 13:37-0400 Body mass index (BMI) [Ratio] 32.79 kg/m2 Deborah [place] PA Work Phone: [facility] 01-01-2025 13:37-0400 Body weight 86.64 kg Deborah Aquiles PA Work Phone: [facility] 01-01-2025 13:37-0400 Diastolic blood pressure 72 mm[Hg] Deborah [place] PA Work Phone: [facility] 01-01-2025 13:37-0400 Systolic blood pressure 124 mm[Hg] Deborah [place] PA Work Phone: [facility] 12-04-2024 10:26-0400 Body height 162.6 cm Scooby Jenny DO Work Phone: [facility] 12-04-2024 10:25-0400 Body mass index (BMI) [Ratio] 32.27 kg/m2 Scooby Jenny DO Work Phone: [facility] 12-04-2024 10:25-0400 Body weight 85.28 kg Scooby Jenny DO Work Phone: [facility] 12-04-2024 10:25-0400 Diastolic blood pressure 72 mm[Hg] Scooby Jenny DO Work Phone: [facility] 12-04-2024 10:25-0400 Systolic blood pressure 118 mm[Hg] Scooby Jenny DO Work Phone: [facility] 11-24-2024 15:59-0400 Body mass index (BMI) [Ratio] 34.57 kg/m2 Oma Davis RN Work Phone: [facility] 11-24-2024 15:59-0400 Body weight 85.73 kg Oma Davis RN Work Phone: [facility] 11-13-2024 10:57-0400 Body weight 87.09 kg Scooby Jenny DO Work Phone: [facility] 11-13-2024 10:57-0400 Diastolic blood pressure 70 mm[Hg] Scooby Jenny DO Work Phone: [facility] 11-13-2024 10:57-0400 Systolic blood pressure 128 mm[Hg] Scooby Jenny DO Work Phone: [facility] 10-16-2024 14:37-0400 Body weight 85.84 kg Noms Nurse [facility] 10-16-2024 14:37-0400 Diastolic blood pressure 82 mm[Hg] Noms Nurse [facility] 10-16-2024 14:37-0400 Systolic blood pressure 124 mm[Hg] Noms Nurse [facility] 07-09-2021 13:35-0500 Body temperature 96.4 [degF] Renita Canseco Other [facility] Other 07-09-2021 13:35-0500 SaO2% (BldA) [Mass fraction] 98 % Renita Canseco Other [facility] Other 02-19-2021 04:06-0400 Body weight 83.[address] [facility] Comment on above: Performed By: #### HIV12 #### [facility] [address] [address] Andriy Rodgersen Encounters Encounter Date Encounter Type Care Provider Facility Start: 03-31-2025 End: 03-31-2025 Clinisync Result Encounter Jem Ambrosio AMMUNITION ASSEMBLY LABORER Work Phone: [facility] Unsolicited Start: 03-31-2025 End: 03-31-2025 Clinisync Result Encounter Jem Hebert AMMUNITION ASSEMBLY LABORER Work Phone: [facility] Unsolicited Start: 03-24-2025 End: 03-24-2025 Bamboo flowsheet Jem Hebert AMMUNITION ASSEMBLY LABORER Work Phone: [facility] Start: 03-24-2025 End: 03-24-2025 Bamboo flowsheet Jem Hebert AMMUNITION ASSEMBLY LABORER Work Phone: [facility] Start: 03-24-2025 End: 03-24-2025 Office outpatient visit 15 minutes Jem Hebert AMMUNITION ASSEMBLY LABORER Work Phone: [facility] Comment on above: 34 weeks gestation o f ([facility]); Third trimester ([facility]); Gestational diabetes mellitus (GDM) in third trimester, gestational diabetes method of control unspecified ([facility]) Start: 03-24-2025 End: 03-24-2025 ambulatory JEM HEBERT Not Available Start: 03-20-2025 End: 03-20-2025 Telephone encounter Amanda STAPLES Maternal- Medicine at [facility] Start: 03-10-2025 End: 03-10-2025 Bamboo flowsheet Deborah RUBIN Work Phone: [facility] [place] [facility] Start: 03-10-2025 End: 03-10-2025 Bamboo flowsheet Deborah RUBIN Work Phone: [facility] Start: 03-10-2025 End: 03-10-2025 Office outpatient visit 15 minutes Deborah RUBIN Work Phone: [facility] Comment on above: 32 weeks gestation o f ([facility]); Third trimester ([facility]) Start: 03-10-2025 End: 03-10-2025 ambulatory DEBORAH RODRIGUEZ Not Available Start: 02-25-2025 End: 02-25-2025 ambulatory DEBORAH RODRIGUEZ Not Available Start: 02-16-2025 End: 02-16-2025 ambulatory DEBORAH RODRIGUEZ Not Available Start: 02-16-2025 End: 02-16-2025 Office outpatient visit 15 minutes Deborah RUBIN Work Phone: [facility] Comment on above: Size of fetus incons istent with dates in second trimester ([facility]) (Primary Dx); 28 weeks gestation of ([facility]); Third trimester ([facility]) Start: 02-16-2025 End: 02-16-2025 Bamboo flowsheet Deborah RUBIN Work Phone: [facility] Start: 02-16-2025 End: 02-16-2025 Bamboo flowsheet Deborah RUBIN Work Phone: [facility] Start: 02-13-2025 End: 02-13-2025 Clinisync Result Encounter Scooby Jenny DO Work Phone: [facility] Unsolicited Start: 02-13-2025 End: 02-13-2025 Clinisync Result Encounter Scooby Jenny DO Work Phone: [facility] Unsolicited Start: 02-02-2025 End: 02-02-2025 Office outpatient visit 15 minutes Scooby Jenny DO Work Phone: [facility] Comment on above: Second trimester pre gnancy ([facility]); 26 weeks gestation of ([facility]); Diabetes mellitus screening Start: 02-02-2025 End: 02-02-2025 ambulatory SCOOBY JENNY Not Available Start: 02-02-2025 End: 02-02-2025 Bamboo flowsheet Scooby Jenny DO Work Phone: [facility] Start: 02-02-2025 End: 02-02-2025 Bamboo flowsheet Scooby Jenny DO Work Phone: [facility] Start: 01-26-2025 End: 01-26-2025 ambulatory SCOOBY JENNY Not Available Start: 01-01-2025 End: 01-01-2025 Bamboo flowsheet Deborah RUBIN Work Phone: [facility] Start: 01-01-2025 End: 01-01-2025 Bamboo flowsheet Deborah RUBIN Work Phone: [facility] Start: 01-01-2025 End: 01-01-2025 flow sheet Deborah RUBIN Work Phone: [facility] Comment on above: Second trimester pre gnancy ([facility]); 22 weeks gestation of ([facility]) Start: 01-01-2025 End: 01-01-2025 ambulatory DEBORAH RODRIGUEZ [...] Rowena STAPLES Work Phone: Maternal- Medicine at [facility] Start: 12-04-2024 End: 12-04-2024 ambulatory SCOOBYArcelia KRUEGERO Not Available Start: 12-04-2024 End: 12-04-2024 Patient encounter procedure Scooby Jenny DO Work Phone: [facility] Start: 12-04-2024 End: 12-04-2024 flow sheet Scooby Jenny DO Work Phone: [facility] Comment on above: Second trimester pre gnancy ([facility]); 18 weeks gestation of ([facility]); Well woman exam with routine gynecological exam; Screening, , for anatomic survey ([facility]); Screen for STD (sexually transmitted disease); Need for maternal serum alpha-protein (MSAFP) screening ([facility]) Start: 11-24-2024 End: 11-24-2024 ambulatory Oma Davis RN Work Phone: Maternal- Medicine at [facility] Comment on above: Gestational diabetes mellitus (GDM) [...] End: 12-21-2023 ambulatory NO PCP NO PCP [facility] Start: 12-19-2023 End: 12-20-2023 Emergency department patient visit RENITA HICKMAN [facility] Start: 12-19-2023 End: 12-19-2023 Emergency department patient visit NO PCP NO PCP [facility] Start: 03-01-2022 End: 03-01-2022 ambulatory Kym Masterson Facility:[facility] Start: 11-08-2021 End: 11-08-[address] SCOOBY ALVARADO Facility:[facility] Start: 08-01-2021 End: 08-01-[address] SCOOBY ALVARADO Facility:[facility] Start: 07-30-2021 End: 07-31-2021 Evaluation and management of inpatient DR SCOOBY ALVARADO Facility:[facility] Start: 07-13-2021 End: 07-13-[address] SCOOBY ALVARADO Facility:[facility] Start: 07-11-2021 End: 07-12-[address] NADIA DOOLEY Facility:[facility] Start: 07-09-2021 End: 07-09-2021 ambulatory Renita Canseco Other [facility] Other Start: 07-09-2021 Office outpatient vi sit [...] Facility:[facility] Start: 04-07-2021 End: 04-08-2021 ambulatory NAT MNEDOZA Facility:[facility] Start: 03-21-2021 End: 03-22-2021 ambulatory RENAY [...] Date Procedure Procedure Detail Performing Clinician Start: 03-31-2025 OB BPP W NON-STRESS Jem Ambrosio AMMUNITION ASSEMBLY LABORER Work Phone: Start: 03-24-2025 Urnls dip stick/tabl et rgnt non-auto w/o micrscp Jem Ambrosio AMMUNITION ASSEMBLY LABORER Work Phone: Start: 03-10-2025 Urnls dip stick/tabl et rgnt non-auto w/o micrscp Deborah RUIBN Work Phone: Start: 02-13-2025 ALL CBC WITH [...] Td Vaccines (3 - Td or Tdap) [facility] Start: 12-04-2029 Screening for malign ant neoplasm of cervix [facility] Start: 11-24-2025 Adult BMI Screening Adult BMI Screen ing [facility] Start: 06-15-2025 End: 06-15-2025 ambulatory 06/15/2025 9:50 AM EST Visit SHERLY MARES [address] [place] [id number] Scooby Alvarado DO [address] [place] [address] [facility] Start: 04-07-2025 End: 04-07-2025 Patient encounter procedure 04/07/2025 1:30 PM EDT Routine SHERLY MARES [address] [place] [address] Deborah Rodriguez PA [address] [place] [address] [facility] Start: 03-24-2025 End: 09-21-2025 US biophysical profile w non stress test US biophysical profile w non stress test Imaging Routine Third trimester ([facility]) Expected: 03/24/2025 (Approximate), Expires: 09/21/2025 [facility] Work Phone: Comment on above: Expected: 03/24/2025 (Approximate), Expires: 09/21/2025 Start: 03-24-2025 End: 03-24-2025 Patient encounter procedure [facility] Comment on above: Arrived Start: 03-10-2025 End: 03-10-2025 Patient encounter procedure 03/10/2025 1:20 PM EDT Routine [facility] [address] [place] [phone] Deborah Rodriguez, PA [address] [place] [address] Arrived [facility] Comment on above: Arrived Start: 03-03-2025 End: 03-03-2025 Patient encounter procedure 03/03/2025 2:40 PM EDT Routine [facility] [address] [place] [id number] Scooby Alvarado DO [address] [place] [address] [facility] Start: 02-25-2025 End: 02-25-2025 Professional / ancillary services management 02/25/2025 3:00 PM EDT Ancillary Procedure [facility] [address] [place] [id number] [facility] Start: 02-23-2025 COVID-19 Vaccine ( season) COVID-19 Vaccine ( season) [facility] Start: 02-23-2025 Influenza vaccination P [facility] Start: 02-16-2025 End: 02-16-2025 Patient encounter procedure 02/16/2025 2:30 PM EDT Routine [facility] [address] [place] [phone] Deborah Rodriguez, PA [address] [place] [address] [facility] Start: 02-16-2025 End: 06-18-2025 US for US OB follow up transabdominal approach Imaging Routine Size of fetus inconsistent with dates in second trimester ([facility]) Expected: 02/16/2025, Expires: 06/18/2025 [facility] Work [...] EDT Ancillary Procedure [facility] [address] [place] [address] [facility] Start: 01-01-2025 End: 01-01-2025 Patient encounter procedure [facility] Comment on above: Arrived Start: 12-20-2024 Tobacco Screening Tobacco Screening [facility] Start: 12-19-2024 Adult BMI Screening Adult BMI Screen ing [facility] Start: 12-04-2024 End: 01-03-2025 Alpha fetoprotein, maternal Alpha fetoprotein, maternal Lab Routine Need for maternal serum alpha-protein (MSAFP) screening ([facility]) Expected: 12/04/2024 (Approximate), Expires: 01/03/2025 [facility] Comment on above: Expected: 12/04/2024 (Approximate), Expires: 01/03/2025 Start: 12-04-2024 End: 03-06-2025 US for US OB 14+ weeks anatomy scan Imaging Routine Screening, , for anatomic survey ([facility]) Expected: 12/04/2024, Expires: 03/06/2025 [facility] Comment on above: Expected: 12/04/2024 , Expires: 03/06/2025 Start: 12-04-2024 End: 12-04-2024 Patient encounter procedure 12/04/2024 9:40 AM EDT Routine [facility] [address] [place] [address] Scooby Alvarado, DO [address] [place] [address] [facility] Start: 11-13-2024 End: 11-13-2024 Patient encounter procedure 11/13/2024 10:40 AM EDT Routine [facility] [address] [place] [address] Scooby Alvarado, DO [address] [place] [address] [facility] Start: 10-16-2024 End: 10-16-2025 ABO/Rh ABO/Rh Lab Routine Missed menses , unspecified gestational age Expected: 10/16/2024 (Approximate), Expires: 10/16/2025 [facility] Comment on above: Expected: 10/16/2024 (Approximate), Expires: 10/16/2025 Start: 10-16-2024 End: 10-16-2025 Blood type and Indirect antibody screen panel - Blood Type and screen Lab Routine Missed menses , unspecified gestational age Expected: 10/16/2024 (Approximate), Expires: 10/16/2025 [facility] Work Phone: Comment on above: Expected: 10/16/2024 (Approximate), Expires: 10/16/2025 Start: 10-16-2024 End: 10-16-2025 Drugs of abuse panel - Urine by Screen method Rapid drug screen, urine Lab Routine , unspecified gestational age Encounter for supervision of normal first in first trimester Expected: 10/16/2024 (Approximate), Expires: 10/16/2025 [facility] Comment on above: Expected: 10/16/2024 (Approximate), Expires: 10/16/2025 Start: 02-24-2024 COVID-19 Vaccine () COVID-19 Vaccine () [facility] Start: 2021 Screening for malign ant neoplasm of cervix [facility] Start: 2012 Screening for malign ant neoplasm of cervix Pap Smear [facility] Start: 2009 Adult BMI Follow Up Plan Adult BMI Follow Up Plan [facility] Start: 2003 Depression Screening Depression Scre ening [facility] Bacteria identified in Urine by Culture Urine culture Microbiology Routine Missed menses Ordered: 10/16/2024 [facility] Comment on above: Ordered: 10/16/2024 CBC W Auto Different ial panel - Blood CBC and differential Lab Routine Missed menses , unspecified gestational age Ordered: 10/16/2024 [facility] Comment on above: Ordered: 10/16/2024 CHLAMYDIA TRACHOMATI S (GENITO/STI) CHLAMYDIA TRACHOMATIS (GENITO/STI) Lab Routine Screen for STD (sexually transmitted disease) Ordered: 12/04/2024 [facility] Comment on above: Ordered: 12/04/2024 Cytology Cervical or vaginal smear or scraping study Pap Smear Pathology and Cytology Routine Well woman exam with routine gynecological exam Ordered: 12/04/2024 [facility] Comment on above: Ordered: 12/04/2024 Hemoglobin A1c/Hemoglobin.total in Blood Hemoglobin A1c Lab Routine Missed menses , unspecified gestational age Ordered: 10/16/2024 [facility] Comment on above: Ordered: 10/16/2024 Hepatitis B virus surface Ag [Presence] in Serum or Plasma by Immunoassay Hepatitis B surface antigen Lab Routine Missed menses , unspecified gestational age Ordered: 10/16/2024 [facility] Comment on above: Ordered: 10/16/2024 Hepatitis C virus Ab [Presence] in Serum or Plasma by Immunoassay Hepatitis C antibody Lab Routine Missed menses , unspecified gestational age Ordered: 10/16/2024 [facility] Comment on above: Ordered: 10/16/2024 HIV-1/HIV-2 antigen/antibody combination immunoassay HIV-1 and HIV-2 antibodies Lab Routine Missed menses , unspecified gestational age Ordered: 10/16/2024 [facility] Comment on above: Ordered: 10/16/2024 Human papilloma viru s DNA [Presence] in Unspecified specimen by Probe with amplification HPV DNA probe, amplified Microbiology Routine Well woman exam with routine gynecological exam Ordered: 12/04/2024 [facility] Comment on above: Ordered: 12/04/2024 Neisseria gonorrhoea e DNA [Presence] in Unspecified specimen by CARLITOS with probe detection Neisseria gonorrhea DNA probe, direct Lab Routine Screen for STD (sexually transmitted disease) Ordered: 12/04/2024 [facility] Comment on above: Ordered: 12/04/2024 Reagin Ab [Presence] in Serum by RPR RPR Lab Routine Missed menses , unspecified gestational age Ordered: 10/16/2024 [facility] Comment on above: Ordered: 10/16/2024 Rubella antibody, IgG Rubella an tibody, IgG Lab Routine Missed menses , unspecified gestational age Ordered: 10/16/2024 [facility] Comment on above: Ordered: 10/16/2024 SURESWAB(R) ADVANCED VAGINITIS PLUS, TMA SURESWAB(R) ADVANCED VAGINITIS PLUS, TMA Pathology and Cytology Routine Screen for STD (sexually transmitted disease) Ordered: 12/04/2024 [facility] Work Phone: Comment on above: Ordered: 12/04/2024 Immunizations Immunization Date Immunization Notes Care Provider [facility] 04-04-2024 influenza virus vaccine, unspecified formulation Oma Davis RN Work Phone: [facility] Payers Date Payer Category Payer Medicaid [employer] [place] [place] [id number] 2025 Medicaid [id number] 2022 Self-pay 2022 Managed Care Other (unspecified) [employer] [id number] 2022 Private Health Insurance [facility] [id number] 2022 Private Health Insurance [facility] [id number] 1991 Unknown [id number] 2.16.840.1.410792.3.579.2. 593 1991 Unknown [id number] 2.16.840.1.721384.3.579.2. 593 1991 Unknown [id number] 2.16.840.1.825590.3.579.2. 593 1991 Unknown [id number] 2.16.840.1.979072.3.579.2. 593 1991 Unknown [id number] 2.16.840.1.306904.3.579.2. 593 1991 Unknown [id number] 2.16.840.1.975899.3.579.2. 593 1991 Unknown [id number] 2.16.840.1.051951.3.579.2. 593 1991 Unknown [id number] 2.16.840.1.719252.3.579.2. 593 1991 Unknown [id number] 2.16.840.1.223982.3.579.2. 593 1991 Unknown [id number] 2.16.840.1.343733.3.579.2. 593 1991 Unknown [id number] 2.16.840.1.656995.3.579.2. 593 1991 Unknown [id number] 2.16.840.1.479643.3.579.2. 593 1991 Unknown [id number] 2.16.840.1.340100.3.579.2. 593 1991 Unknown [id number] 2.16.840.1.352604.3.579.2. 593 1991 Unknown [id number] 2.16.840.1.510282.3.579.2. 593 1991 Unknown [id number] 2.16.840.1.390760.3.579.2. 593 1991 Unknown [id number] 2.16.840.1.907737.3.579.2. 593 1991 Unknown [id number] 2.16.840.1.930399.3.579.2. 593 1991 Unknown [id number] 2.16.840.1.748683.3.579.2. 593 1991 Unknown [id number] 2.16.840.1.627979.3.579.2. 593 1991 Unknown [id number] 2.16.840.1.818029.3.579.2. 1286 1991 Unknown [id number] 2.16.840.1.249485.3.579.2. 1285 1991 Unknown [id number] 2.16.840.1.106419.3.579.2. 1286 1991 Unknown [id number] 2.16.840.1.239658.3.579.2. 128 1991 Unknown [id number] 2.16.840.1.879143.3.579.2. 1258 1991 Unknown [id number] 2.16.840.1.328072.3.579.2. 1258 1991 Unknown [id number] 2.16.840.1.704386.3.579.2. 1258 1991 Unknown [id number] 2.16.840.1.732018.3.579.2. 1258 1991 Unknown [id number] 2.16.840.1.399924.3.579.2. 1258 1991 Unknown [id number] 2.16.840.1.739310.3.579.2. 1258 1991 Unknown [id number] 2.16.840.1.734735.3.579.2. 1258 1991 Unknown [id number] 2.16.840.1.657095.3.579.2. 1258 1991 Unknown [id number] 2.16.840.1.086966.3.579.2. 1258 1991 Unknown [id number] 2.16.840.1.540311.3.579.2. 1258 1991 Unknown [id number] 2.16.840.1.172592.3.579.2. 1259 1959 Unknown [id number] 1959 Unknown [id number] Unknown [id number] 2.16.840.1.275807.3.579.2. 531 Social History Date Type Detail Facility Start: 08-05-2020 End: 12-21-[address] [facility] Tobacco smoking stat us WAIS Tobacco smoking consumption unknown [facility] Start: 08-12-2024 [facility] Start: 1990 Sex assigned at Female [facility] Start: 06-27-2023 Gender identity Identifies as female gender (finding) [facility] Start: 06-27-2023 Sexual orientation Heterosexual (finding) [facility] Start: 08-25-2019 Tobacco smoking status WAIS Never smoked tobacco [facility] Start: 08-25-2019 Tobacco use and exposure Smokeless tobacco non-user [facility] Start: 11-19-2024 Alcoholic beverage intake Ex-drinker (finding) [facility] Start: 08-05-2020 End: 12-21-2023 [address] of [address] [facility] Are you worried or concerned that in the next two months you may not have stable housing that you own, rent or stay in as a part of a household? No [facility] Start: 1991 Sex assigned at Not on file [facility] Start: 01-28-2015 Sex Female (finding) [facility] Medical Equipment Procedure Code Equipment Code Equipment Origin al Text Equipment Identifier Dates 1 strip by In Vi tro route Daily Use in the morning prior to breakfast, 1 hour after each meal for a total of 4times daily. [id number] Start: 11-13-2024 End: 12-13-2024 1 each by In Vit ro route Daily Use to check FSBS four times daily [id number] Start: 11-13-2024 End: 12-13-2024 Clinical Notes 07-09-2021 to 03-24-2025 Jem Ambrosio, AMMUNITION ASSEMBLY LABORER - 03/24/2025 10:50 AM EDTTelephone Encounter - Amanda Putnam, BEL - 03/20/2025 12:55 PM EDTTelephone Encounter - Amanda Putnam, BEL - 03/20/2025 12:55 PM EDT Note Date [...] to check FSBS. Blood Glucose Monitoring Suppl ([employer] Glucometer) w/Device kit 1 kit, Does not apply, Daily, Use four times daily to check FSBS. In the morning prior to breakfast & 1 hour after each meal for a total of 4times daily. Wodbjygs-Exy-Nd-FA ( 1 + IRON PO) Take by mouth ProFe 391.3 (180 Fe) MG capsule 1 capsule, Daily ALLERGIES Not on File PROBLEMS Active Ambulatory Problems Diagnosis Date Noted 28 weeks gestation of ([facility]) 02/16/2025 Third trimester ([facility]) 02/16/2025 Resolved Ambulatory Problems Diagnosis Date Noted [...] nursing note reviewed. Exam conducted with a consumer services consultant present. Vitals: Estimated body mass index is 33.44 kg/m as calculated from the following: Height as of 12/04/24: 5' 4 . Weight as of 03/10/25: 194 lb 12.8 oz. BP: Patient's last menstrual period was 07/29/2024 (exact date). ASSESSMENT & PLAN ICD-10-CM 1. 34 weeks gestation of ([facility]) Z3A.34 2. Third trimester ([facility]) Z34.93 US biophysical profile w non stress test POCT urinalysis dipstick manually resulted 3. Gestational diabetes mellitus (GDM) in third trimester, gestational diabetes method of control unspecified ([facility]) O24.419 Return OB: Patient presents today for a routine obstetrics appointment. Patient is currently 34w0d . Patient states she is doing well but has complaints of being tired due to current w/some pelvic pain. Patient has verbalizes frequent movement. labor precautions was discussed/given and patient was instructed to perform kick counts three times a day. She continues to send her glucose logs to [facility] and we will begin NST/BPP this week. Orders Placed This Encounter Procedures US biophysical profile w non stress test POCT urinalysis dipstick manually resulted Follow Up: Patient is to return to office in 2 week for routine OB appointment. Documented by Yane Grant MA on behalf of: Jem Ambrosio NP documented in this encounter [facility] 03-20-2025 Miscellaneous Notes Called patient and had to leave a voicemail. We haven't received any blood sugar logs for 4 weeks. Asked her to please send them to us or to call with questions. Left RD phone number. [facility] Telephone encounter Note Called patient and had to leave a voicemail. We haven't received any blood sugar logs for 4 weeks. Asked her to please send them to us or to call with questions. Left RD phone number. [facility] 03-10-2025 History of Presen t illness Narrative Reason for Appointment: Patient ID: Paris Mosqueda is a 34 y.o. female who presents for Routine Visit Patient presents today for Return OB appointment. MEDICATIONS Current Outpatient Medications Medication Instructions Alcohol Swabs (Alcohol Prep Pad) 70 % pads 1 Pad, Topical, Daily, Use four times daily to check FSBS. Blood Glucose Monitoring Suppl (Surgical [employer] Glucometer) w/Device kit 1 kit, Does not apply, Daily, Use four times daily to check FSBS. In the morning prior to breakfast & 1 hour after each meal for a total of 4times daily. Ljwoesoc-Ifq-Nb-FA ( 1 + IRON PO) Take by mouth ProFe 391.3 (180 Fe) MG capsule 1 capsule, Daily ALLERGIES No Known Allergies PROBLEMS Active Ambulatory Problems Diagnosis Date Noted 28 weeks gestation of ([facility]) 02/16/2025 Third trimester ([facility]) 02/16/2025 Resolved Ambulatory Problems Diagnosis Date Noted [...] nursing note reviewed. Exam conducted with a consumer services consultant present. Vitals: Estimated body mass index is 33.44 kg/m as calculated from the following: Height as of 12/04/24: 5' 4 . Weight as of this encounter: 194 lb 12.8 oz. BP: 136/74 Patient's last menstrual period was 07/29/2024 (exact date). ASSESSMENT & PLAN ICD-10-CM 1. 32 weeks gestation of ([facility]) Z3A.32 POCT urinalysis dipstick manually resulted 2. Third trimester ([facility]) Z34.93 POCT urinalysis dipstick manually resulted Return [...] of: SCOTTIE Yañez documented in this encounter [facility] 02-16-2025 History of Presen t illness Narrative Reason for Appointment: Patient ID: Paris Mosqueda is a 34 y.o. female who presents for Routine Visit Patient presents today for Return OB appointment. MEDICATIONS Current Outpatient Medications Medication Instructions Alcohol Swabs (Alcohol Prep Pad) 70 % pads 1 Pad, Topical, Daily, Use four times daily to check FSBS. Blood Glucose Monitoring Suppl ([employer] Glucometer) w/Device kit 1 kit, Does not apply, Daily, Use four times daily to check FSBS. In the morning prior to breakfast & 1 hour after each meal for a total of 4times daily. Wuwkwedr-Dbj-Gc-FA ( 1 + IRON PO) Take by mouth ProFe 391.3 (180 Fe) MG capsule 1 capsule, Daily ALLERGIES No Known Allergies PROBLEMS Active Ambulatory Problems Diagnosis Date Noted 28 weeks gestation of ([facility]) 02/16/2025 Third trimester ([facility]) 02/16/2025 Resolved Ambulatory Problems Diagnosis Date Noted [...] nursing note reviewed. Exam conducted with a consumer services consultant present. Vitals: Estimated body mass index is 33.3 kg/m as calculated from the following: Height as of 12/04/24: 5' 4 . Weight as of this encounter: 194 lb. BP: 128/72 Patient's last menstrual period was 07/29/2024 (exact date). ASSESSMENT & PLAN ICD-10-CM 1. Size of fetus inconsistent with dates in second trimester ([facility]) O26.842 US OB follow up transabdominal approach 2. 28 weeks gestation of ([facility]) Z3A.28 CANCELED: CBC and differential 3. Third trimester ([facility]) Z34.93 Return OB: Patient presents today for [...] of: SCOTTIE Yañez documented in this encounter [facility] 02-02-2025 History of Presen t illness Narrative [...] meal for a total of 4times daily. Lhyexlqs-Ppr-Yz-FA ( 1 + IRON PO) Take by [...] nursing note reviewed. Exam conducted with a consumer services consultant present. Vitals: Estimated body mass index is 33 kg/m as calculated from the following: Height as of 12/04/24: 5' 4 . Weight as of this encounter: 192 lb 4 oz. BP: 136/78 Patient's last menstrual period was 07/29/2024 (exact date). ASSESSMENT & PLAN ICD-10-CM 1. Second trimester ([facility]) Z34.92 POCT urinalysis dipstick manually resulted 2. 26 weeks gestation of ([facility]) Z3A.26 3. Diabetes mellitus screening Z13.1 CBC [...] glucose log and completed Diabetic education through [facility]. Documented by Jem Ambrosio NP on behalf of: Scooby Alvarado DO documented in this encounter [facility] 01-01-2025 History of Presen t illness [...] meal for a total of 4times daily. Sgjeheik-Rhv-Ji-FA ( 1 + IRON PO) Take by [...] ASSESSMENT & PLAN ICD-10-CM 1. Second trimester ([facility]) Z34.92 POCT urinalysis dipstick manually resulted 2. 22 weeks gestation of ([facility]) Z3A.22 Return OB: Patient presents today for [...] of: SCOTTIE Yañez documented in this encounter [facility] 12-04-2024 Miscellaneous Notes Called regarding blood sugar [...] have questions you can call me at [phone]. Please continue to send in blood sugars weekly. I will also send a [employer] message. [facility] Tele[facility] encounter Note Called regarding blood [...] have questions you can call me at [phone]. Please continue to send in blood sugars weekly. I will also send a [employer] message. [employer] Work Phone: 12-04-2024 History of Presen t [...] Use to check FSBS four times daily Odramdma-Ycc-Dp-FA ( 1 + IRON PO) Take by [...] nursing note reviewed. Exam conducted with a consumer services consultant present. Vitals: There is no height or weight on file to calculate BMI. BP: 118/72 Patient's last menstrual period was 07/29/2024 (exact date). ASSESSMENT & PLAN ICD-10-CM 1. Second trimester ([facility]) Z34.92 POCT urinalysis dipstick manually resulted 2. 18 weeks gestation of ([facility]) Z3A.18 3. Well woman exam with routine gynecological exam Z01.419 Pap Smear HPV DNA probe, amplified 4. Screening, , for anatomic survey ([facility]) Z36.89 US OB 14+ weeks anatomy scan 5. Screen for STD (sexually transmitted disease) Z11.3 SURESWAB(R) ADVANCED VAGINITIS PLUS, TMA CHLAMYDIA TRACHOMATIS (GENITO/STI) Neisseria gonorrhea DNA probe, direct 6. Need for maternal serum alpha-protein (MSAFP) screening ([facility]) Z36.1 Alpha fetoprotein, maternal Alpha fetoprotein, [...] Scooby Alvarado DO documented in this encounter [facility] 11-24-2024 Group counseling note Patient: Paris [...] Face to face time was 85 minutes. [employer] Work Phone: 11-24-2024 Miscellaneous Notes Patient: Paris [...] was 85 minutes. documented in this encounter [facility] 11-13-2024 History of Presen t illness Narrative [...] Use to check FSBS four times daily Esqxwgvi-Rsa-Yr-FA ( 1 + IRON PO) Take by [...] nursing note reviewed. Exam conducted with a consumer services consultant present. Vitals: There is no height [...] Glucose Test) strip Blood Glucose Monitoring Suppl ([employer] Glucometer) w/Device kit 5. Elevated glucose tolerance test R73.09 Lancets Ultra Thin misc Alcohol Swabs (Alcohol Prep Pad) 70 % pads Glucose Blood (Blood Glucose Test) strip Blood Glucose Monitoring Suppl ([employer] Glucometer) w/Device kit New OB: Patient presents [...] or undercooked meat, and stay away from [facility]. Patient has been consulted regarding any further do's and don'ts of . Patient voiced understanding and all questions and concerns were answered. Orders Placed This Encounter Procedures POCT urinalysis dipstick manually resulted Discussed with patient her recent A1c results and patient aware that referral will be sent to [facility] for Diabetic Education and monitoring. PVU and supplies sent to pharmacy for patient to pickup and take with her to her referral appointment. Follow Up: Patient is to return in 4 weeks for routine OB appointment. Documented by Wendy Ulloa LPN on behalf of: Scooby Alvarado DO documented in this encounter [facility] 10-16-2024 History of Presen t illness [...] or undercooked meat, and stay away from [facility]. Patient has also been advised to not [...] Faye Tyler MA documented in this encounter [facility] 07-09-2021 Evaluation note Encounter Date Diagnosis [...] Patient care instructions given in writting by [facility] Care At Home document [employer] Other Evaluation note* Diagnosis Missed menses Missed [...] of control unspecified [facility] Diagnosis Second trimester ([facility]) state, incidental 18 weeks gestation of ([facility]) Well woman exam with routine gynecological exam Routine gynecological examination Screening, , for anatomic survey ([facility]) Encounter for anatomic survey Screen for STD (sexually transmitted disease) Screening examination for venereal disease Need for maternal serum alpha-protein (MSAFP) screening ([facility]) [facility] [...] encounter [facility] HealthcareInstructionsNot on filedocumented in this encounterProMedipa Health SystemInstructionsNot on filedocumented in this encounterProMedipa [facility] Summary Purpose Family History No Family History Records FoundNo Family History Records FoundNo Family History Records FoundNo Family History Records FoundNo Family History Records Found Advance Directives Date Activated Date Inactivated Comments 12/20/2023 11:13 PM 12/21/2023 1:46 PM Additional Source Comments INFORMATION SOURCE (unrecogn ized section and content) DATE CREATED AUTHOR 11/17/2021 [facility] DATE CREATED AUTHOR AUTHOR'S ORGANIZ ATION 03/24/2022 [facility] DATE CREATED AUTHOR AUTHOR'S ORGANIZ ATION 12/29/2023 [facility] DATE CREATED AUTHOR AUTHOR'S ORGANIZ ATION 11/25/2024 [facility] DATE CREATED AUTHOR AUTHOR'S ORGANIZ ATION 03/29/2025 [facility] EPIC REASON FOR VISIT (unrecogniz ed section and content) Reason Comments Amenorrhea Reason Comments Routine Visit Reason Comments Gestational Diabetes Specialty Diagnoses / Procedures Referred By Contac t Referred To Contact Maternal and Medicine Diagnoses Gestational diabetes mellitus (GDM) in second trimester, gestational diabetes method of control unspecified Scooby Alvarado R, DO [address] [place] [address] Phone: tel: fax: Maternal- Medicine at [facility] [address] [place] [address] Phone: tel: fax: Referral ID Status Reason Start Date Expiration Date Visits Requested Visits Authorized [id number] Pending Review Specialty Services Required 11/19/2024 11/19/2025 1 1 Care Teams (unrecognized sec tion and content) Farm Equipment Mechanic Relationship Specialty Start Date End Date No Pcp, [place] [address] PCP - General Family Medicine 12/19/23 Farm Equipment Mechanic Relationship Specialty Start Date End Date No Pcp, [place] [address] PCP - General Family Medicine 12/19/23 Farm Equipment Mechanic Relationship Specialty Start Date End Date No Pcp, [place] [address] PCP - General Family Medicine 12/19/23 FOR [...] BE BASED ON THE PRIMARY CLINICAL RECORDS. [facility] [employer] [facility]. provides no warranty or guarantee of the accuracy or completeness of information in this document.
[2025-04-03 10:23] VITALS: BP 114/64; PULSE 73
== END 2025-04-03 12:45 | disposition home or self-care (01) ==
LOC: FBCO 10:00 → FBC 10:09
PROVIDERS: Visit Provider Obstetrics & Gynecology
DX: O24.419 Gestational diabetes mellitus in pregnancy, unspecified control (principal)
CPT/HCPCS: 59025

== ENCOUNTER 2025-04-07 11:23 | Outpatient (OUT) | payer MEDICAID, SELFPAY ==
--- OUTSIDE RECORDS SUMMARY | 2024-07-15 11:45 | XMS_ITS ---
Author Organization [facility] vices Address [address] [place] [phone] Care Team Providers Care Heel Reducer Name Role Phone Pako Mays Unavailable [phone] REASON FOR VISIT CANCEL- Periodic Exam Social History Sex Assigned At : Social History Observation Description Sex Assigned At Female Encounters Encounter Location Date Provider Diagnosis [facility] [address] [place] [phone] 07/15/2024 Pako Mays Plan Of Treatment Next Appt Details Provider Name:Najma gimenez, 10/02/2025 11:15:00 AM, [facility] [place], [place], [phone], Progress Notes * Paris MOSQUEDADOB:1990 (34 yo F)Acc No.[id number]:07/15/2024 Patient: Antonette TORRESica Provider: Yesenia Mays DDS :1990 A ge:34 Y S ex:Female Date:07/15/2024 Address:[address] [place] [address], [id number] Subjective: * Chief Complaints: * 1 . CANCEL- Periodic Exam. * Medical History: Objective: * Vitals: Assessment: Plan: * Treatment: * Billing Information: * Visit Code: * Procedure Codes: * Electronic signature of Radha Mays DDS on 04/07/2025 at 11:26 AM EDT Sign off status: Pending * Provider: Yesenia Mays DDS Date: 0 07/15/2024 Generated for Na llamas/Mark/Christophe on: 1 11:26 AM EDT
--- OUTSIDE RECORDS SUMMARY | 2025-03-24 10:50 | XMS_ITS | Encounter Summary ---
Author Organization [facility] Address [address] [place] [address] Care Team Providers Care Business Account Leader Name Role Phone Unavailable Primary Care Provider Unavailabl e Reason for Visit * Reason Comments Routine Visit Encounter Details Date Type Department Care Team ([facility] Contact Info) Description 03/24/2025 10:50 AM EDT Routine SHERLY [place] OBGYN [address] [place] [address] Krys Ambrosio, KAYY [address] [facility] [place] [address] 34 weeks gestation of ([facility]); Third trimester ([facility]); Gestational diabetes mellitus (GDM) in third trimester, gestational diabetes method of control unspecified ([facility]) Social History Tobacco Use Types Packs/Day [...] to check FSBS. Blood Glucose Monitoring Suppl ([employer] Glucometer) w/Device kit 1 kit, Does not apply, Daily, Use four times daily to check FSBS. In the morning prior to breakfast & 1 hour after each meal for a total of 4times daily. Xhebtenl-Iwk-Kc-FA ( 1 + IRON PO) Take by mouth ProFe 391.3 (180 Fe) MG capsule 1 capsule, Daily ALLERGIES Not on File PROBLEMS Active Ambulatory Problems Diagnosis Date Noted 28 weeks gestation of ([facility]) 02/16/2025 Third trimester ([facility]) 02/16/2025 Resolved Ambulatory Problems Diagnosis Date [...] nursing note reviewed. Exam conducted with a continuous churn buttermaker present. Vitals: Estimated body mass index is 33.44 kg/m?? as calculated from the following: Height as of 12/04/24: 5' 4 . Weight as of 03/10/25: 194 lb 12.8 oz. BP: Patient's last menstrual period was 07/29/2024 (exact date). ASSESSMENT & PLAN ICD-10-CM 1. 34 weeks gestation of ([facility]) Z3A.34 2. Third trimester ([facility]) Z34.93 US biophysical profile w non stress test POCT urinalysis dipstick manually resulted 3. Gestational diabetes mellitus (GDM) in third trimester, gestational diabetes method of control unspecified ([facility]) O24.419 Return OB: Patient presents today [...] continues to send her glucose logs to [facility] and we will begin NST/BPP this [...] 1:30 PM EDT Routine SHERLY MARES [address] [place] [address] Deborah Kwan PA [address] [place] [address] 06/15/2025 9:50 AM EST Visit SHERLY MARES [address] [place] [address] Scooby Alvarado DO [address] [facility] [place] [address] Scheduled Orders Name Type Priority Associated Diagnoses Orde r Schedule US biophysical profile w non stress test Imaging Routine Third trimester ([facility]) Expected: 03/24/2025 (Approximate), Expires: 09/21/2025 documented as of this encounter Procedures Procedure Name Priority Date/Time Associated Diagnosis Comments POCT URINALYSIS DIPSTICK Routine 03/24/2025 11:11 AM EDT Third trimester ([facility]) documented in this encounter Results * [...] Visit Diagnoses Diagnosis 34 weeks gestation of ([facility]) Third trimester ([facility]) state, incidental Gestational diabetes mellitus (GDM) in third trimester, gestational diabetes method of control unspecified ([facility]) documented in this encounter
--- OUTSIDE RECORDS SUMMARY | 2025-04-07 11:25 | XMS_ITS | Encounter Summary ---
Author Organization [facility] Address [address] [facility] [place] [address] Care Team Providers Care Early Childhood Associate Teacher Name Role Phone Unavailable Primary Care Provider Unavailabl e Encounter Details Date Type Department Care Team (Late Contact Info) Description 12/12/2024 Orders Only SHERLY MARES [address] [place] [address] [place] [phone] Yane Grant MA [address] [place] [address] [place] [address] Social History Tobacco Use Types Packs/Day Years [...] 04/07/2025 1:30 PM EDT Routine NOMMyra MARES [address] [place] [address] [place] [phone] Deborah Kwan PA [address] [place] [address] 06/15/2025 9:50 AM EST Visit NOMMyra MARES [address] [place] [address] Scooby Alvarado DO [address] [place] [address] documented as of this encounter Procedures Procedure [...]
--- OUTSIDE RECORDS SUMMARY | 2025-04-07 11:25 | XMS_ITS | Encounter Summary ---
Author Organization [facility] Address [address] [place] [address] Care Team Providers Care Character Actor Name Role Phone Unavailable Primary Care Provider Unavailabl e Encounter Details Date Type Department Care Team (Late st Contact Info) Description 03/31/2025 Clinisync Result Encounter [facility] External Department Unsolicited Krys Ambrosio, KAYY [address] [place] [phone] Social History Tobacco Use Types Packs/Day Years [...] 1:30 PM EDT Routine NOMMarlene MARES [address] [place] [phone] Deborah Kwan PA [address] [place] [address] 06/15/2025 9:50 AM EST Visit [facility] Sanam MARES [address] [facility] [place] [address] Scooby Alvarado, DO [address] [place] [address] documented as of this encounter Procedures Procedure Name Priority Date/Time Associated Diagnosis Comments US OB BPP W NON-STRESS 03/31/2025 5:44 PM EDT documented in this encounter Results * US OB BPP W NON-STRESS (03/31/2025 5:44 PM EDT) Anatomical Region Laterality Modality Other 03/31/2025 5:44 PM EDT Narrative 03/31/2025 5:47 PM EDT [address] [address] Ultrasound Report Signed Patient: PRISCILLA MOSQUEDA MR#: [id number] : 1990 Acct:[id number] Age/Sex: 34 / F ADM Date: 03/31/25 Loc: US Attending Dr: Krys Ambrosio Ordering Physician: Krys Ambrosio Date of Service: 03/31/25 Procedure(s): US OB BPP w non-stress Accession Number(s): [id number] cc: Krys Ambrosio; [address] [address] Patient Name: PRISCILLA MOSQUEDA MRN: [id number] date: 1990 Sex: F Assigned Patient Location: [facility] Current Patient Location: Accession/Order Number: [id number] Exam Date: 03/31/2025 12:57 Report Date: 03/31/2025 17:44 At the request of: KRYS AMBROSIO Procedure: US OB BPP w non-stress Ultrasound biophysical profile INDICATION: Gestational diabetes FINDINGS/ IMPRESSION: Cephalic position. 8/ 8 score biophysical profile. JEANNINE measures 7.9 cm which is borderline oligohydramnios. heart rate 152 beats per minutes. Impression dictated by: Nito Chong M.D. 03/31/2025 5:44 PM Dictation Location: RADIO-PC-29 Electronically authenticated by: [id number] Y Date: 03/31/2025 17:44 Dictated By: Nito Chong M.D. Signed By: 03/31/25 174 DD/ 43 TD/TT: Storyboard Artist: Procedure Note Radiology, Radiologist, MD - 03/31/2025 [place] [address] Ultrasound Report Signed Patient: PRISCILLA MOSQUEDAMR#: [id number] : 1990Acct:[id number] Age/Sex: 34 / FADM Date: 03/31/25 Loc: US Attending Dr: Krys Ambrosio Ordering Physician: Krys Ambrosio Date of Service: 03/31/25 Procedure(s): US OB BPP w non-stress Accession Number(s): [id number] cc: Krys Ambrosio; [place] [address] Patient Name: PRISCILLA MOSQUEDA MRN: [facility]:[id number] date: 1990 Sex: F Assigned Patient Location: [facility] Current Patient Location: Accession/Order Number: [id number] Exam Date: 03/31/2025 12:57 Report Date: 03/31/2025 17:44 At the request of: KRYS AMBROSIO Procedure: US OB BPP w non-stress Ultrasound biophysical profile INDICATION: Gestational diabetes FINDINGS/ IMPRESSION: Cephalic position. 8/ 8 score biophysical profile.JEANNINE measures 7.9 cm which is borderline oligohydramnios. heart rate 152 beats per minutes. Impression dictated by: Nito Chong M.D. 03/31/2025 5:44 PM Dictation Location: RADIO-PC-29 Electronically authenticated by: [id number] Y Date: 7:44 Dictated By: Nito Chong M.D. Signed By:03/31/251746 DD/ 43 TD/TT: Storyboard Artist: us Krys Ambrosio NP [facility] Final Resul t documented in this encounter Visit Diagnoses Not on filedocumented in this encounter
--- OUTSIDE RECORDS SUMMARY | 2025-04-07 11:25 | XMS_ITS | Encounter Summary ---
Author Organization [facility] Address [address] [facility] [place] [address] Care Team Providers Care Fireworks Inspector Name Role Phone Unavailable Primary Care Provider Unavailabl e Encounter Details Date Type Department Care Team (Late Contact Info) Description 03/24/2025 Bamboo flowsheet SHERLY MARES [address] [place] [address] [place] [address] Krys Ambrosio, KAYY [address] [facility] [place] [address] Social History Tobacco Use Types Packs/Day [...] 1:30 PM EDT Routine SHERLY MARES [address] [facility] [address] Deborah Kwan PA [address] [facility] [address] [place], [facility] 06/15/2025 9:50 AM EST Visit N[facility]S Sanam MARES [address] [place] [address] Scooby Alvarado DO [address] [place] [address] [place] [address] documented as of this encounter Visit Diagnoses Not on filedocumented in this encounter
--- OUTSIDE RECORDS SUMMARY | 2025-04-07 11:25 | XMS_ITS | Encounter Summary ---
Author Organization [facility] Address [address] [place] [address] Care Team Providers Care Corporate Director Of Human Resources Name Role Phone Unavailable Primary Care Provider [...] 1:30 PM EDT Routine NOMMarlene MARES [address] [address] Deborah Kwan PA [address] [place], [place] [address] 06/15/2025 9:50 AM EST Visit SHERLY MARES [address] [address] Scooby Alvarado DO [address] [facility] [address] [place], [facility] documented as of this encounter Visit Diagnoses Not on filedocumented in this encounter
--- OUTSIDE RECORDS SUMMARY | 2025-04-07 11:25 | XMS_ITS | Encounter Summary ---
Author Organization [facility] Address [address] [place] [facility] [place] [address] Care Team Providers Care Manager Of Planning Name Role Phone Epps, Jihan Antonio PULPER OPERATOR Unavailable [phone] Encounter Details Date Type Department Care Team (Late st Contact Info) Description 12/14/2023 Clinisync Result Encounter NOMS External Department Unsolicited Hector Alvarado DO [address] [place] [address] [place], [facility] Social History Tobacco Use Types [...] Routine NOMS Sanam MARES [address] [place] [address] Deborah Kwan PA [address] [place], [place] [address] 06/15/2025 9:50 AM EST Visit [facility] Sanam MARES [address] [place] [address] Hector Alvarado, DO [address] [place] [address] [place] [address] (work) documented as of this encounter Procedures Procedure Name Priority Date/Time Associated Diagnosis Comments US OB TRANSVAGINAL 12/14/2023 9: 53 AM EDT documented in this encounter Results * US OB TRANSVAGINAL (12/14/2023 9:53 AM EDT) Anatomical Region Laterality Modality Other 12/14/2023 9:53 AM EDT Narrative 12/14/2023 9:56 AM EDT [address] [address] Ultrasound Report Signed Patient: PRISCILLA MOSQUEDA MR#: [id number] : 1990 Acct:[id number] Age/Sex: 33 / F ADM Date: 12/14/23 Loc: NOMS Attending Dr: Hector Alvarado D.O. Ordering Physician: Hector Alvarado D.O. Date of Service: 12/14/23 Procedure(s): US OB transvaginal Accession Number(s): [id number] cc: [facility] ; Hector Alvarado D.O. The [address] [address] Patient Name: PRISCILLA MOSQUEDA MRN: [id number] date: 1990 Sex: F Assigned Patient Location: [facility] Current Patient Location: [facility] Accession/Order Number: [id number] Exam Date: 12/14/2023 09:01 Report Date: 12/14/2023 [...] Dooley M.D. Signed By: 12/14/2356 DD/ TD/TT: Non Destructive Testing Inspector: Procedure Note Radiology, Radiologist, - 12/14/2023 [place] [address] Ultrasound Report Signed Patient: PRISCILLA MOSQUEDAMR#: [id number] : 1990Acct:[id number] Age/Sex: 33 / FADM Date: 12/14/23 Loc: NOMS Attending Dr: Hector Alvarado D.O. Ordering Physician: Hector Alvarado D.O. Date of Service: 12/14/23 Procedure(s): US OB transvaginal Accession Number(s): [id number] cc: [facility] ; Hector Alvarado D.O. The [place] [id number] Patient Name: PRISCILLA MOSQUEDA MRN: [facility]:[id number] date: 1990 Sex: F Assigned Patient Location: [facility] Current Patient Location: [facility] Accession/Order Number: [id number] Exam Date: 12/14/2023 09:01 Report Date: 12/14/2023 [...] Dooley M.D. Signed By:12/14/23 0956 DD/ TD/TT: Non Destructive Testing Inspector: us Hector Jenny DO [facility] Final Result documented in this encounter Visit Diagnoses Not on filedocumented in this encounter Care Teams Manager Of Planning Relationship Specialty Start Date End Date Jihan Epps NP [address] [place] [address] PCP - [facility] Van SALVATIONIST 09/24/23 12/23/23 documented as of this encounter
--- NOTE | 2025-04-07 11:26 | US_ITS ---
[place] [id number] Patient Name: PRISCILLA BLNAD MRN: [id number] date: 1990 Sex: F Assigned Patient Location: [facility] Current Patient Location: [facility] Accession/Order Number: [id number] Exam Date: 04/07/2025 11:30 Report Date: 04/07/2025 11:46 At the request of: JEM MCCABE Procedure: US OB BPP w non-stress BIOPHYSICAL PROFILE: CLINICAL INFORMATION: Gestational diabetes mellitus COMPARISON: 03/31/2025 There is a single live intrauterine gestation in cephalic presentation. The reported gestational age is 36 weeks 0 days. The heart rate [id number] beats per minute. FINDINGS: TONE: 1 or more episodes of activity extension and flexion of extremity or opening and closing of the hand [Y] 2/2 GROSS BODY MOVEMENTS: 3 or more discrete body or limb movements [Y] 2/2 BREATHING MOVEMENTS: 1 or more episodes of breathing lasting at least 30 seconds [Y] 2/2 JEANNINE: A single deepest vertical pocket of amniotic fluid greater than 2 cm [Y] 2/2 JEANNINE: 9.0 cm. The 5th percentile is 7.7 cm. Total score: 8/8 US/US OB BPP w non-stress IMPRESSION: NORMAL BIOPHYSICAL PROFILE. BORDERLINE LOW JEANNINE. Impression dictated by: Sarita Evangelista M.D. 04/07/2025 11:46 AM Dictation Location: [place] [address] Electronically authenticated by: [id number] Y Date: 04/07/2025 11:46
--- OUTSIDE RECORDS SUMMARY | 2025-04-07 11:26 | XMS_ITS | Encounter Summary ---
Author Organization [facility] [employer] [facility] Address [id number] [address] [place] [address] Care Team Providers Care Mailroom Associate Name Role Phone No Pcp, No Pcp Primary Care Provider Unavailabl e Encounter Details Date Type Department Care Team (Late st Contact Info) Description 11/19/2024 Orders Only Maternal- Medicine at [facility] [address] [place] [address] Ref Prov, [place] [address] Social History Tobacco Use Types Packs/Day Years [...] 4:13 PM EDT) Anatomical Region Laterality Modality OB-STEREOTYPE FINISHER Ultrasound us Not In System Ref Prov IMG US ORDERABLES Final R esult documented in this encounter Visit Diagnoses Not on filedocumented in this encounter Care Teams Mailroom Associate Relationship Specialty Start Date End Date No Pcp, [place] [address] PCP - General Family Medicine 12/19/23 documented as of this encounter
--- OUTSIDE RECORDS SUMMARY | 2025-04-07 11:26 | XMS_ITS | Encounter Summary ---
Author Organization [facility] [employer] [facility] tem Address [id number] [address] [place] [address] Care Team Providers Care Retail Director Name Role Phone No Pcp, No Pcp Primary Care Provider Unavailabl e Encounter Details Date Type Department Care Team (Late st Contact Info) Description 11/19/2024 Abstract Maternal- Medicine at [facility] [address] [place] [phone] Provider, Generic External Data Social History Tobacco [...] ORDERABLES Final Re sult Performing Organization Address City/[facility]/ZIP Co de Phone Number MANUALLY TRANSCRIBED RESULTS * CBC without diff (11/11/2024) Hemoglobin 11.8 MANUALLY TRANSCRIBED RESULTS Hematocrit 35.7 MANUALLY TRANSCRIBED RESULTS Rbc Mcv (Fl) By Automated Count 84.0 MANUALLY TRANSCRIBED RESULTS Platelets 284 MANUALLY TRANSCRIBED RESULTS Blood Venous blood / Unknown us Not In System Ref Prov LAB BLOOD ORDERABLES Rachael l Result Performing Organization Address City/[facility] Co de Phone Number MANUALLY TRANSCRIBED RESULTS * HIV 1&2 AB/AG Screen (P24 AG) (11/11/2024) HIV 1&2 AB/AG non reactive MAN UALLY TRANSCRIBED RESULTS Blood Venous blood / Unknown us Not In System Ref Prov LAB BLOOD ORDERABLES Rachael l Result Performing Organization Address [facility] Co de Phone Number MANUALLY TRANSCRIBED RESULTS * Type and screen (11/11/2024) Abo/Rh(D) A Positive MANUALLY TRANSCRIBED RESULTS Antibody Screen negative MANUALLY TRANSCRIBED RESULTS Blood Venous blood / Unknown us Not In System Ref Prov BLOOD BANK TEST ORDERABLE S Final Result Performing Organization Address [facility] Co de Phone Number MANUALLY TRANSCRIBED RESULTS * Rubella IGG immune status (11/11/2024) Rubella immune IgG non immune MANUALLY TRANSCRIBED RESULTS Blood Venous blood / Unknown us Not In System Ref Prov LAB BLOOD ORDERABLES Rachael l Result Performing Organization Address City/[facility] Co de Phone Number MANUALLY [...] ORDERABLES Final Resu lt Performing Organization Address City/[facility]/ZIP Co de Phone Number MANUALLY TRANSCRIBED RESULTS * Basic Metabolic Panel (11/11/2024) Glucose 126 mg/dL MANUALLY TRANSCRIBED RESULTS Blood Venous blood / Unknown us Scooby R Jenny DO LAB BLOOD ORDERABLES Final Resu lt Performing Organization Address [facility] Co de Phone Number MANUALLY TRANSCRIBED RESULTS documented in this encounter Visit Diagnoses Not on filedocumented in this encounter Care Teams Retail Director Relationship Specialty Start Date End Date No Pcp, [place] [address] PCP - General Family Medicine 12/19/23 documented as of this encounter
--- OUTSIDE RECORDS SUMMARY | 2025-04-07 11:26 | XMS_ITS | Encounter Summary ---
Author Organization [facility] Address [address] [place] [address] Care Team Providers Care Housing Inspectors Name Role Phone Unavailable Primary Care Provider Unavailabl e Encounter Details Date Type Department Care Team ([facility] Contact Info) Description 11/13/2024 Results Follow-Up [facility] [address] [place] [address] Viola Washington LPN [address] [place] [phone] BOX TEST, ALL CBC WITH AUTO DIFF, [...] 1:30 PM EDT Routine [facility] [address] [place] [phone] Deborah Kwan PA [address] [place], [place] [phone] 06/15/2025 9:50 AM EST Visit [facility] [address] [place] [phone] Scooby Alvarado DO [address] [place], [place] [phone] documented as of this encounter Visit Diagnoses Not on filedocumented in this encounter
--- OUTSIDE RECORDS SUMMARY | 2025-04-07 11:26 | XMS_ITS | Clinical Summary ---
Author Organization [facility] tem Address [id number] [address] [place] [address] Care Team Providers Care Newspaper Photographer Name Role Phone No Pcp, No Pcp [...] Team Description 03/20/2025 Telephone Maternal- Medicine at [facility] [address] [place] [phone] Amanda Putnam LD from Last 3 Months [...] 07/11/2021 Medical Devices Not on file Insurance [facility] Advance Directives * Full Code (Latest Code Status on File) Date Activated Date Inactivated Comments 12/20/2023 11:13 PM 12/21/2023 1:46 PM Care Teams Newspaper Photographer Relationship Specialty Start Date End Date No Pcp, No Pcp IZZY [place] [address] PCP - General Family Medicine 12/19/23
--- OUTSIDE RECORDS SUMMARY | 2025-04-07 11:26 | XMS_ITS | Clinical Summary ---
Author Organization [facility] Address [address] [place] [address] Care Team Providers Care Cooling Machine Operator Name Role Phone Unavailable Primary Care Provider Unavailabl e Medications Nxolcysm-Tud-Pi- FA ( 1 + IRON PO) Take by mouth Active Alcohol Swabs (Alcohol Prep Pad) 70 % padsIndications: Gestational diabetes mellitus (GDM), antepartum, gestational diabetes method of control unspecified ([facility]),Elevat ed glucose tolerance test Apply 1 Pad topically Daily Use four times daily to check FSBS. 150 each 3 5 Active Blood Glucose Monitoring Suppl (D-Care Glucometer) w/Device kitIndications:G estational diabetes mellitus (GDM), antepartum, gestational diabetes method of control unspecified ([facility]),Elevat ed glucose tolerance test 1 kit [...] Date Diagnosed Date 28 weeks gestation of ([facility]) 2024 Third trimester ([facility]) 02/16/2025 Estimated Date of Delivery Comme nts Yes 05/05/2025 Based on last me nstrual period of 07/29/2024 (Exact Date) Encounters Date Type Department Care Team Description 03/31/2025 Clinisync Result Encounter [facility] External Department Unsolicited Krys Ambrosio NP 03/24/2025 10:50 AM EDT Routine [facility] [address] [place] [address] Krys Ambrosio NP 34 weeks gestation of ([facility]); Third trimester ([facility]); Gestational diabetes mellitus (GDM) in third trimester, gestational diabetes method of control unspecified ([facility]) 03/24/2025 Bamboo flowsheet [facility] [address] [place] [address] [place] [address] Krys Ambrosio NP 03/24/2025 Travel 03/10/2025 1:20 PM EDT Routine [facility] [address] [place] [address] Deborah Kwan PA 32 weeks gestation of ([facility]); Third trimester ([facility]) 03/10/2025 Travel 03/10/2025 Bamboo flowsheet [facility] [address] [place] [address] Deborah Kwan PA 02/25/2025 3:00 PM EDT Ancillary Procedure [facility] [address] [place] [address] [place] [address] Size of fetus inconsistent with dates in second trimester ([facility]) 02/25/2025 Travel 02/16/2025 2:30 PM EDT Routine [facility] [address] [place] [address] [place] [address] Deborah Kwan PA Size of fetus inconsistent with dates in second trimester ([facility]) (Primary Dx); 28 weeks gestation of ([facility]); Third trimester ([facility]) 02/16/2025 Bamboo flowsheet [facility] [address] [place] [address] Deborah Kwan PA 02/16/2025 Travel 02/13/2025 Clinisync Result Encounter [facility] External Department Unsolicited Scooby Alvarado DO 02/02/2025 2:50 PM EDT [facility] [place] [address] Scooby Alvarado, DO Second trimester ([facility]); 26 weeks gestation of ([facility]); Diabetes mellitus screening 02/02/2025 Bamboo flowsheet [facility] [place] [address] Scooby Alvarado DO 02/02/2025 Travel 01/26/2025 3:00 PM EDT Ancillary Procedure [facility] [place] [phone] Encounter for follow-up ultrasound of anatomy ([facility]) 01/26/2025 Travel from Last 3 Months Family History [...] Description 04/07/2025 1:30 PM EDT Routine [facility] [place] [facility] [address] [place] [address] Deborah Kwan PA [address] [place], [place] [phone] 06/15/2025 9:50 AM EST Visit [facility] [place] [facility] [address] [place] [address] Scooby Alvarado DO [address] [place] [address] Health Maintenance Due Date Last Done Comments Influenza Vaccine (#1) 2025 4, 04/25/2023, 04/01/2022, Additional history exists Cervical Cancer Screening 12/04/2029 HPV/Cotest 12/04/2029 Pap Smear 12/04/2029 12/04/2024 Procedures Procedure Name Priority Date/Time Associated Diagnosis Comments US OB BPP W NON-STRESS 03/31/2025 5:44 PM EDT POCT URINALYSIS DIPSTICK Routine 03/24/2025 11:11 AM EDT Third trimester ([facility]) POCT URINALYSIS DIPSTICK Routine 03/10/2025 1:32 PM EDT 32 weeks gestation of ([facility]) Third trimester ([facility]) US OB FOLLOW UP TRANSABDOMINAL APPROACH Routine 02/25/2025 3:22 PM EDT Size of fetus inconsistent with dates in second trimester ([facility]) ALL CBC WITH AUTO DIFF Routine 7:06 AM EDT POCT URINALYSIS DIPSTICK Routine 02/02/2025 3:06 PM EDT Second trimester ([facility]) US OB LIMITED 1+ FETUSES Routine 01/26/2025 3:47 PM EDT Encounter for follow-up ultrasound of anatomy ([facility]) PAP SMEAR Routine 12/04/2024 12:00 AM EDT from Last 3 Months or Most Recently Relevant to Health Maintenance Results * US OB BPP W NON-STRESS (03/31/2025 5:44 PM EDT) Anatomical Region Laterality Modality Other 03/31/2025 5:44 PM EDT Narrative 03/31/2025 5:47 [place] [address] Ultrasound Report Signed Patient: PRISCILLA MOSQUEDA MR#: [id number] : 1990 Acct:[id number] Age/Sex: 34 / F ADM Date: 03/31/25 Loc: US Attending Dr: Krys Ambrosio Ordering Physician: Krys Ambrosio Date of Service: 03/31/25 Procedure(s): US OB BPP w non-stress Accession Number(s): [id number] cc: Krys Ambrosio; [place] [id number] Patient Name: PRISCILLA MOSQUEDA MRN: [id number] date: 1990 Sex: F Assigned Patient Location: [facility] Current Patient Location: Accession/Order Number: [id number] Exam Date: 03/31/2025 12:57 Report Date: 03/31/2025 17:44 At the request of: KRYS AMBROSIO Procedure: US OB BPP w non-stress Ultrasound biophysical profile INDICATION: Gestational diabetes FINDINGS/ IMPRESSION: Cephalic position. 8/ 8 score biophysical profile. JEANNINE measures 7.9 cm which is borderline oligohydramnios. heart rate 152 beats per minutes. Impression dictated by: Nito Chong M.D. 03/31/2025 5:44 PM Dictation [facility] Electronically authenticated by: [id number] Y Date: 03/31/2025 17:44 Dictated By: Nito Chong M.D. Signed By: 03/31/251746 DD/ 43 TD/TT: Pulp Beater: Procedure Note Radiology, Radiologist, - 03/31/2025 [place] [address] Ultrasound Report Signed Patient: PRISCILLA MOSQUEDAMR#: [id number] : 1990Acct:[id number] Age/Sex: 34 / FADM Date: 03/31/25 Loc: US Attending Dr: Krys Ambrosio Ordering Physician: Krys Ambrosio Date of Service: 03/31/25 Procedure(s): US OB BPP w non-stress Accession Number(s): [id number] cc: Krsy Ambrosio; [facility] [place] [id number] Patient Name: PRISCILLA MOSQUEDA MRN: [id number] date: 1990 Sex: F Assigned Patient Location: [facility] Current Patient Location: Accession/Order Number: [id number] Exam Date: 03/31/2025 12:57 Report Date: 03/31/2025 17:44 At the request of: KRYS AMBROSIO Procedure: US OB BPP w non-stress Ultrasound biophysical profile INDICATION: Gestational diabetes FINDINGS/ IMPRESSION: Cephalic position. 8/ 8 score biophysical profile.JEANNINE measures 7.9 cm which is borderline oligohydramnios. heart rate 152 beats per minutes. Impression dictated by: Nito Chnog M.D. 03/31/2025 5:44 PM Dictation Location: [place] [address] Electronically authenticated by: [id number] Y Date: 7:44 Dictated By: Nito Chong M.D. Signed By:03/31/251746 DD/ 43 TD/TT: Pulp Beater: us Krys Ambrosio STEEL CONSTRUCTION WORKER [facility] IMAGING Final Resul t * (ABNORMAL) POCT urinalysis dipstick manually resulted (03/24/2025 11:11 AM EDT) Only the most recent of3 [...] ELECTRONICALLY SIGNED BY: Logan Caal MD Narrative 02/26/2025 7:33 AM EDT FINDINGS: A single, [...] - 02/13/2025 7:22 AM EDT us Scooby Velizo DO [facility] Final Result [facility] * US OB limited 1+ fetuses (01/26/2025 [...] SIGNED BY: Logan Caal MD us Scooby Velizo DO IMG OB US PROCEDURES Final Resul t * Pap Smear (12/04/2024 12:00 AM EDT) Swab Cervical swab / Unknown us Scooby Velizo DO LAB CYTOLOGY ORDERABLES Final Re sult EXTERNAL LAB from Last 3 Months or Most Recently Relevant to Health Maintenance Insurance [employer] [place]
--- OUTSIDE RECORDS SUMMARY | 2025-04-07 11:26 | XMS_ITS | Patient Health Record ---
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 Stress is when someone feels tense, nervous, anxious, or can't sleep at night because their mind is troubled Not at all patient entered data In the past year have you sp ent more than 2 nights in a row in a senior living, care home, fdc center, or juvenile correctional facility? No patient [...] Notes Problem Irritable bowel syndrome with diarrhea (820370377) Irritable bowel syndrome with diarrhea (K58.0) Active confirmed Problem Venereal disease screening (955785652) Screening for STD (sexually transmitted disease) (Z11.3) Active confirmed Problem Irritable bowel syndrome (20114452) IBS (irritable bowel syndrome) (K58.9) Active confirmed [...] third trimester ., Problem Urine test negative (659527977) Encounter for test with result negative (V72.41) (V72.41) Active confirmed Problem Cyst of graafian follicle (0331732) Cyst of Graafian follicle (N83.00) 2008 Problem resolved confirmed Description:Foll icular cyst of ovary Problem Depression screening (526008232) Screening for depression (Z13.31) Active confirmed Description:Dep r ession screen Problem Removal of suture (21954792) Visit for suture removal (Z48.02) Active confirmed Comment:Sutures removed. Area cleansed with alcohol. Area was bandaged. Pt. advised to RTO for signs/ symptoms of infection including erythema, warmth, discharge from wound, fever or chills., Problem Infop-agc-anorz without malnutrition (457915833) Small for gestational age (764.00) (764.00) Active confirmed Problem Insertion of intrauterine contraceptive device (79747561) Encounter for IUD insertion (Z30.430) Active confirmed Comment:uterus retroverted, speculum inserted, cervix swabbed with betadine, single toothed tenaculum applied to anterior lip of cervix, uterus sounded to 8 cm, IUD placed without difficulty, strings cut 2 cm from os, good hemostasis noted, pt tolerated procedure well., Problem Obese class I (791337850935396 ) BMI 33.0-33.9,adul t (Z68.33) Active confirmed Problem Acute streptococcal pharyngitis (6108021771) Acute streptococcal pharyngitis (J02.0) 2009 Problem resolved confirmed Description:Stre ptococcal sore throat Problem Janeth onychomycosis (B37.2) Active confirmed Description:Can d idiasis of nails Problem Upper respiratory infection (49163489) URI (upper respiratory infection) (J06.9) Active confirmed Comment:alyssa faith observe. otc supp therapy. f/u if sxs got worse,Story:she had sore throat o the last t wo days.no f c n v. she took supportive therapu. wet to Er got some meds., Problem BMI 30+ - obesity (223424856) BMI 32.0-32.9,adul t (Z68.32) Active confirmed Problem Left lower quadrant pain (752713597) Abdominal pain, left lower quadrant (789.04) (789.04) 2008 Problem resolved confirmed Problem Urinary tract infection in (191239914) UTI in (O23.40) Active confirmed Comment:pt on antibiotics, Problem Dysmenorrhea (169671967) Adolescent dysmenorrhea (N94.6) 2007 Problem resolved confirmed Description:Dysm enorrhea Problem Diarrhea (52350863) Diarrhea (R19.7) Active confirmed Problem Mass of lower limb (152556153) Mass of right lower leg (R22.41) Active confirmed Problem Poor weight gain of (646.80) (646.80) Active confirmed Comment:discusse d increase po intake, insufficient weight gain can lead to SGA, IUGR. Monitor weight. will order growth ultrasound, Problem Gynecologic examination (71595632) Visit for gynecologic examination (Z01.419) Active confirmed Comment:last pap 10/01/2012 - neg, hpv neg encouraged self breast exams, Problem Injury (343504568) Contusion of soft tissue (T14.8) Active confirmed Comment:REFER t o Orthopedic surgery - In [place] on [address], Problem Normal (05457026) SUPERVISION, OTHER NORMAL (V22.1) (V22.1) Active confirmed Problem Dyspepsia (069450849) Dyspepsia (R10.13) Active confirmed Problem Abnormal glucose tolerance in mother complicating , childbirth AND/OR puerperium (60652612) Abnormal glucose tolerance in mother complicating (648.80) (648.80) Active confirmed Comment:1 hr GT T - 165, 3 hr normal, Problem Contraceptive intrauterine device check (360270774) IUD check up (Z30.431) Active confirmed Comment:strings trimmed as partner feels it during intercourse, discussed risks if trim too short of migration, Problem Asymptomatic bacteriuria in (61488784) Asymptomatic bacteriuria in (O23.40) Active confirmed Problem Breast lump (69973800) Breast mass seen on mammogram (N63.0) Active confirmed Problem Delivery normal (29689984) Delivery normal (O80) Active confirmed Comment:Pregnanc y ended in chart. eds 09/21 had menses, has not resumed intercourse breast feeding desires ocp, Problem Poor growth affecting management (108137572) Small for gestational age fetus affecting mother, antepartum (O36.5990) Active confirmed Problem General examination of patient (965698379) Routine general medical examination at a health care facility (V70.0) (V70.0) 2007 Problem resolved confirmed Problem Normal (08486225) Encounter for supervision of normal (Z34.90) Active [...] wks , male, 8lb2oz, 2010 , @ [facility]. PMH : obesity PSH: denies PGYN: denies Meds: PNV NKDA Sochx: neg x 3., Problem Polycystic bilateral ovaries (disorder) (104029022) Bilateral polycystic ovarian syndrome (E28.2) 2008 Problem resolved confirmed Description:Poly cystic ovaries Problem IUGR - Intrauterine growth retardation (39533627) IUGR (intrauterine growth restriction) (764.90) Active confirmed Comment:US done 03/31/13 baby was 33.4 weeks 5lbs 12 oz, 4%ile, megha normal discussed findings with pt, started antepartum testing. Umbilical artery dopplers normal pt complaints of decreased movement, will induce today, Problem Ovarian cyst complicating , antepartum (O34.80) Active confirmed Comment:4.7x2.8 x 3.3 cm on right ovary, Problem Sinusitis, acute (461.) (461) 2008 Problem resolved confirmed Problem Body mass index 30.00 to 34.99 (434368931532073 ) BMI 31.0-31.9,adul t (Z68.31) Active confirmed Problem Urinary tract infectious disease (78370574) Infection of urinary tract (N39.0) 2009 Problem resolved confirmed Description:Urin emily tract infection Problem Contraception care education (926161134) Family planning advice (Z30.09) Active confirmed Comment:pt late for depo window, preg test negative, received depo today discussed importance of compliance,Descr iption:CONTRACEP TIVE COUNSELING NEC Problem Breast lump (86439751) Left breast lump (611.72) (611.72) Active confirmed Comment:Instruc t ed to use all medication as prescribed, obtain diagnostic mammogram, return after mammogram is preformed or sooner as needed is symptoms worsen or do not get better. Patient verbalizes and agrees with plan of care., Problem Oligohydramnios (91940882) Decreased amniotic fluid (O41.00X0) Active confirmed Comment:pt to go to hospital for IV fluid hydration, repeat megha 11.1. Pt to have repeat megha on following sunday 10.7, normal bladder. measuring S< D, will order growth and megha,Description: Oligohydramnios Problem Breast lump (85066683) Breast mass in female (N63.0) Active confirmed Comment:left breast at 10-11 oclock - unchanged in size right breast at 12 oclock - uncahnged in size 2 masses seen on right, 1 mass on left , appear to be benign fibroadenomas, repeat bilateral breast ultrasound in 6 months, scheduled this month, pt declines removal, desires to continue to monitor with self breast exams, Problem Obesity (disorder) (901123434) Overweight and obesity (E66.3) 2007 Problem resolved confirmed Problem Cellulitis (938974068) Cellulitis and abscess (L03.90) Active confirmed Problem Cyst of ovary (94972791) Cyst of ovary (N83.20) 2008 Problem resolved confirmed Description:Ovar jean cyst Vital Signs Heart Rate 80 /min 03/27/2025 Blood pressure diastolic 78 mm Hg 03/27/2025 Height-cm 162.56 cm 03/27/2025 Weight-kg 88 kg 03/27/2025 Height 64.00 in 03/27/2025 Blood pressure systolic 149 mm Hg 03/27/2025 Weight 194 lbs 03/27/2025 BMI 33.3 kg/m2 03/27/2025 Encounters Encounter Location Date Provider Diagnosis [facility] [address] [place] [address] [id number] 07/16/2024 Pako Mays BMI 32.0-32.9,adul t Z68.32 ; Dietary counseling Z71.3 ; Exercise counseling Z71.82 ; Encounter for screening for dental disorders Z13.84 and Encounter for dental examination and cleaning without abnormal findings Z01.20 [facility] [address] [place] [address] [id number] 09/02/2024 Pako Mays Encounter for dent al examination and cleaning without abnormal findings Z01.20 and Obesity, Class I, BMI 30-34.9 E66.811 [facility] [address] [place] [address] [id number] 03/27/2025 Najma Huang BMI 33.0-33.9,adul t Z68.33 [...] Details Provider Name:Najma gimenez, 10/02/2025 11:15:00 AM, [address] [place] [address], [id number], Insurance Providers Payer Name Payer Address Payer Phone Subscriber Number Group Number Insured Name Patient Relationship to Insured Coverage Start Date Coverage End Date D[employer] r [employer] MM [address] [place] [address] [id number] Zac Mosqueda Spouse - patient is the spouse of the insured 3 [employer] [address] [address] [place], [place] [id number] Zac Mosqueda Spouse - patient is the spouse of the insured [facility] [address] [address] [place] [address] [id number] Paris Mosqueda Self - patient is the insured 5 [employer] d [facility] after [place] [address] [place], [place] [phone] [id number] Mosqueda, Paris Self - patient is the insured 5 Medical (General) History Medical History History ICD [...]
--- OUTSIDE RECORDS SUMMARY | 2025-04-07 11:26 | XMS_ITS | Encounter Summary ---
Author Organization [facility] Address [address] [place] [address] Care Team Providers Care Er Manager Name Role Phone Unavailable Primary Care Provider Unavailabl e Encounter Details Date Type Department Care Team (Late Contact Info) Description 11/13/2024 Abstract [facility] [address] [place] [address] Scooby Alvarado DO [address] [place], [place] [address] Social History Tobacco Use Types Packs/Day Years [...] 1:30 PM EDT Routine SHERLY MARES [address] [place] [address] Deborah Kwan PA [address] [place], [place] [id number] 06/15/2025 9:50 AM EST Visit [facility] [address] [place] [address] Scooby Alvarado DO [address] [place] [address] Dr Jaz [place], [place] [id number] documented as of this encounter Visit Diagnoses Not on filedocumented in this encounter
--- OUTSIDE RECORDS SUMMARY | 2025-04-07 11:27 | XMS_ITS | CCD ---
Author Organization [facility] CliniSyut Care Team Providers Care Client Administrator Name Role Phone RENAY OTOOLE Attending Unavailable [...] 1 capsule by mouth Daily 02/04/2024 Active Lpjneslu-Wok-Dr-FA ( 1 + IRON PO) (20 sources) Kufxawyd-Rus-Hx-FA ( 1 + IRON PO) Take by [...] applicable or unspecified; Translations: [MAT CARE OTH NE FTL GRTH 3RD TM UNS] Onset: 08-08-2021 [...] US OB BPP W NON-STRESS on 03-31-2025 [place] [address] Ultrasound Report Signed Patient: PARIS MOSQUEDA MR#: [id number] : 1990 Acct:[id number] Age/Sex: 34 / F ADM Date: 03/31/25 Loc: US Attending Dr: Jem Ambrosio Ordering Physician: Jem Ambrosio Date of Service: 03/31/25 Procedure(s): US OB BPP w non-stress Accession Number(s): [id number] cc: Jem Ambrosio; [place] [address] Patient Name: PARIS MOSQUEDA MRN: [facility]:[id number] date: 1990 Sex: F Assigned Patient Location: [facility] Current Patient Location: Accession/Order Number: [id number] Exam Date: 03/31/2025 12:57 Report Date: 03/31/2025 17:44 At the request of: JEM AMBROSIO Procedure: US OB BPP w non-stress Ultrasound biophysical profile INDICATION: Gestational diabetes FINDINGS/ IMPRESSION: Cephalic position. 8/ 8 score biophysical profile. JEANNINE measures 7.9 cm which is borderline oligohydramnios. heart rate 152 beats per minutes. Impression dictated by: Nito Chong M.D. 03/31/2025 5:44 PM Dictation Location: [place] [address] Electronically authenticated by: [id number] Y Date: 03/31/2025 17:44 Dictated By: Nito Chong M.D. Signed By: 03/31/25 1747 DD/ 43 TD/TT: School Curriculum Developer: [facility] Radiology, Radiologist, - 03/31/2025 [place] [address] Ultrasound Report Signed Patient: PARIS MOSQUEDA MR#: [id number] : 1990 Acct:[id number] Age/Sex: 34 / F ADM Date: 03/31/25 Loc: US Attending Dr: Jem Ambrosio Ordering Physician: Jem Ambrosio Date of Service: 03/31/25 Procedure(s): US OB BPP w non-stress Accession Number(s): [id number] cc: Jem Ambrosio; [facility] The [place] [id number] Patient Name: PARIS MOSQUEDA MRN: [facility]:[id number] date: 1990 Sex: F Assigned Patient Location: [facility] Current Patient Location: Accession/Order Number: [id number] Exam Date: 03/31/2025 12:57 Report Date: 03/31/2025 17:44 At the request of: JEM AMBROSIO Procedure: US OB BPP w non-stress Ultrasound biophysical profile INDICATION: Gestational diabetes FINDINGS/ IMPRESSION: Cephalic position. 8/ 8 score biophysical profile. JEANNINE measures 7.9 cm which is borderline oligohydramnios. heart rate 152 beats per minutes. Impression dictated by: Nito Chong M.D. 03/31/2025 5:44 PM Dictation Location: [place] [address] Electronically authenticated by: [id number] Y Date: 03/31/2025 17:44 Dictated By: Nito Chong M.D. Signed By: 03/31/251746 DD/ 43 TD/TT: School Curriculum Developer: [employer] Radiology Study observation (narrative) SHERLY [facility] US OB BPP W NON-STRESS Ordered By: Radiologist Radiology on 03-31-2025 [facility] Phone: Urinalysis macro (dipstick) panel (U)on 03-24-2025 Bilirubin, UA Negative Negative - 4(70) +++ mg/dL [facility] Healthcare Blood, UA Negative Negative - 50 Celestino/mcL [facility] Clarity, UA Clear [facility] re Color, UA Yellow [facility] Glucose, UA Negative Negative - 1999(110) ++++ mg/dL [facility] Interpretation and review of laboratory results Abnormal [facility] Healthcare Ketones, UA Negative Negative - 160(16) ++++ mg/dL [facility] Healthcare Leukocytes, UA Trace Negative - 500+++ Dodie/mcL [facility] Healthcare Nitrite, UA Negative Negative - Positive [facility] Healthcare pH, UA 6 5 - 9 [facility] Protein, UA Trace Negative - 1999(20) ++++ mg/dL [facility] Healthcare Spec Grav, UA 1.02 1 - 1.03 [facility] Health care Urobilinogen, UA 2.0 0.2 - 12 mg/dL [facility] Healthcare [facility] Urinalysis macro (dipstick) panel (U)on 03-10-2025 Bilirubin, UA Positive Negative - 4(70) +++ mg/dL [facility] Blood, UA Positive Negative - 50 Celestino/mcL [facility] Healthcare Clarity, UA Clear [facility] Color, UA Renita [facility] Glucose, UA Negative Negative - 1999(110) ++++ mg/dL [facility] Interpretation and review of laboratory results Abnormal [facility] Ketones, UA Positive Negative - 160(16) ++++ mg/dL [facility] Healthcare Leukocytes, UA Positive Negative - 500+++ Dodie/mcL [facility] Healthcare Nitrite, UA Negative Negative - Positive [facility] pH, UA 6 5 - 9 [facility] Protein, UA Positive Negative - 1999(20) ++++ mg/dL [facility] Healthcare Spec Grav, UA 1.03 1 - 1.03 [facility] Urobilinogen, UA 1.0 0.2 - 12 mg/dL [facility] US OB FOLLOW [...] (Bld) 0.4 % 0.2 - 2.0 % [facility] Healthcare Eosinophils/100 WBC (Bld) 1.5 % 0.9 - 7.0 % [facility] Erythrocyte distribution width (RBC) [Ratio] 15 % 11.0 - 15.0 % [facility] Hematocrit (Bld) [Volume fraction] 33.1 % Low 36.0 - 48.0 % [facility] Hemoglobin (Bld) [Mass/Vol] 10.6 g/dL Low 12.0 - 16.0 g/dL [facility] IMMATURE GRANULOCYTES ABS AUTO 0.05 High [facility] Immature granulocytes/100 WBC (Bld) 0.5 % 0.0 - 0.5 % [facility] Interpretation and review of laboratory results Abnormal [facility] LYMPHOCYTES ABSOLUTE AUTO 3 [facility] Lymphocytes/100 WBC (Bld) 31.1 % 20.5 - 60.0 % [facility] MCH (RBC) [Entitic mass] 25.4 pg Low 26.7 - 34.0 pg [facility] MCHC (RBC) [Mass/Vol] 32 g/dL 29.9 - 35.2 g/dL [facility] MCV (RBC) [Entitic vol] 79.2 fL Low 81.0 - 99.0 fL [facility] MONOCYTES ABSOLUTE AUTO 0.8 N [facility] Monocytes/100 WBC (Bld) 8.4 % 1.7 - 12.0 % [facility] NEUTROPHILS ABSOLUTE AUTO 5.7 [facility] Neutrophils/100 WBC (Bld) 58.1 % 43.0 - 75.0 % [facility] Platelet mean volume (Bld) [Entitic vol] 10 fL 9.5 - 13.5 fL [facility] TBH EO # 0.2 [facility] PLT 279 [facility] RBC 4.18 Low [facility] Healthcar e TBH WBC 9.7 [facility] Healthcar e CLIN[facility]NC [facility] Healthcar e Urinalysis macro (dipstick) panel (U)on 02-02-2025 Bilirubin, UA Negative Negative - 4(70) +++ mg/dL [facility] Blood, UA Negative Negative - 50 Celestino/mcL [facility] Clarity, UA Clear [facility] re Color, UA Yellow [facility] e Glucose, UA Negative Negative - 1999(110) ++++ mg/dL [facility] Interpretation and review of laboratory results Abnormal [facility] Ketones, UA Positive Negative - 160(16) ++++ mg/dL [facility] Comment on above: Trace Leukocytes, UA Positive Negative - 500+++ Dodie/mcL [facility] Comment on above: Small Nitrite, UA Negative Negative - Positive [facility] pH, UA 6 5 - 9 [facility] Healthcar e Protein, UA Trace Negative - 1999(20) ++++ mg/dL [facility] Spec Grav, UA 1.03 1 - 1.03 [facility] Urobilinogen, UA 0.2 0.2 - 12 mg/dL [facility] US OB LIMITED 1+ [...] UA Negative Negative - 4(70) +++ mg/dL [facility] Blood, UA Negative Negative - 50 Celestino/mcL [facility] Clarity, UA Clear [facility] Color, UA Yellow [facility] Glucose, UA Negative Negative - 1999(110) ++++ mg/dL [facility] Interpretation and review of laboratory results Normal [facility] Ketones, UA Negative Negative - 160(16) ++++ mg/dL [facility] Leukocytes, UA Negative Negative - 500+++ Dodie/mcL [facility] Nitrite, UA Negative Negative - Positive [facility] pH, UA 7 5 - 9 [facility] Healthcar e Protein, UA Trace Negative - 1999(20) ++++ mg/dL [facility] Spec Grav, UA 1.025 1 - 1.03 [facility] Urobilinogen, UA 0.2 0.2 - 12 mg/dL [facility] No Panel InformationOrdered By: Radiologist Radiology on 12-19-2024 [facility] Healthcar e Work Phone: No Panel Informationon 12-19 Radiology Study observation (narrative) [facility] US OB ANATOMYon 12-19-[address] [address] Ultrasound Report Signed Patient: PARIS MOSQUEDA MR#: [id number] : 1990 Acct:[id number] Age/Sex: 34 / F ADM Date: 12/19/24 Loc: US Attending Dr: Scooby Alvarado D.O. Ordering Physician: Scooby Alvarado D.O. Date of Service: 12/19/24 Procedure(s): US OB anatomy Accession Number(s): [id number] cc: [facility] ; Scooby Alvarado D.O. [address] [address] Patient Name: PARIS MOSQUEDA MRN: [id number] date: 1990 Sex: F Assigned Patient Location: US Current Patient Location: US Accession/Order Number: [id number] Exam Date: 12/19/2024 11:33 Report Date: 12/19/2024 [...] Evangelista M.D. 12/19/2024 11:39 AM Dictation Location: [place] [address] Electronically authenticated by: [id number] Y Date: 12/19/2024 11:39 Dictated By: Sarita Evangelista M.D. Signed By: 12/19/24 1142 DD/ 1139 TD/TT: School Curriculum Developer: [facility] Radiology, Radiologist, - 12/19/[address] [address] Ultrasound Report Signed Patient: PARIS MOSQUEDA MR#: [id number] : 1990 Acct:[id number] Age/Sex: 34 / F ADM Date: 12/19/24 Loc: US Attending Dr: Scooby Alvarado D.O. Ordering Physician: Scooby Alvarado D.O. Date of Service: 12/19/24 Procedure(s): US OB anatomy Accession Number(s): [id number] cc: [facility] ; Scooby Alvarado D.O. The [address] [address] Patient Name: PARIS MOSQUEDA MRN: [facility]:[id number] date: 1990 Sex: F Assigned Patient Location: US Current Patient Location: US Accession/Order Number: [id number] Exam Date: 12/19/2024 11:33 Report Date: 12/19/2024 [...] Evangelista M.D. 12/19/2024 11:39 AM Dictation Location: [place] [address] Electronically authenticated by: [id number] Y Date: 12/19/2024 11:39 Dictated By: Sarita Evangelista M.D. Signed By: 12/19/24 1142 DD/ 1139 TD/TT: School Curriculum Developer: [facility] OB CERVICAL LENGTHon 11-24 [place] [address] Ultrasound Report Signed Patient: PARIS MOSQUEDA MR#: [id number] : 1990 Acct:[id number] Age/Sex: 34 / F ADM Date: 12/19/24 Loc: US Attending Dr: Scooby Alvarado D.O. Ordering Physician: Scooby Alvarado D.O. Date of Service: 12/19/24 Procedure(s): US OB cervical length Accession Number(s): [id number] cc: [facility] ; Scooby Alvarado D.O. [address] [address] Patient Name: PARIS MOSQUEDA MRN: [id number] date: 1990 Sex: F Assigned Patient Location: US Current Patient Location: US Accession/Order Number: [id number] Exam Date: 12/19/2024 11:33 Report Date: 12/19/2024 [...] Evangelista M.D. 12/19/2024 11:39 AM Dictation Location: [place] [address] Electronically authenticated by: [id number] Y Date: 12/19/2024 11:39 Dictated By: Sarita Evangelista M.D. Signed By: 12/19/24 1142 DD/ 1139 TD/TT: School Curriculum Developer: [facility] Radiology, Radiologist, - 12/19/[address] [address] Ultrasound Report Signed Patient: PARIS MOSQUDEA MR#: [id number] : 1990 Acct:[id number] Age/Sex: 34 / F ADM Date: 12/19/24 Loc: US Attending Dr: Scooby Alvarado D.O. Ordering Physician: Scooby Alvarado D.O. Date of Service: 12/19/24 Procedure(s): US OB cervical length Accession Number(s): [id number] cc: [facility] ; Scooby Alvarado D.O. [place] [id number] Patient Name: PARIS MOSQUEDA MRN: [id number] date: 1990 Sex: F Assigned Patient Location: US Current Patient Location: US Accession/Order Number: [id number] Exam Date: 12/19/2024 11:33 Report Date: 12/19/2024 [...] Evangelista M.D. 12/19/2024 11:39 AM Dictation Location: [place] [address] Electronically authenticated by: [id number] Y Date: 12/19/2024 11:39 Dictated By: Sarita Evangelista M.D. Signed By: 12/19/24 1142 DD/ 1139 TD/TT: School Curriculum Developer: [facility] IGP,APTIMA HPV,AGE GDLNon AGE GDLN ACOG TESTING Note . [facility] Comment on above: TESTS RESULT FLAG UN ITS REF RANGE LAB Clinician Provided Cytology Information Source.............Vagina Other.............. No. of containers..01 ThinPrep Vial Age Algo ACOG Karine... 30-65 01 FLAG LEGEND: L-Low Normal,H-High Normal,LL-Alert Low,HH-Alert High <-Panic Low,>-Panic High,A-Abnormal,AA-Critical Abnormal Performed at: 01 =G [facility] [address] Cindy Pinzon MD, HPV APTIMA Negative Negative [facility] Comment on above: This nucleic acid am plification test detects fourteen high- risk HPV types (16,18,31,33,35,39,45,51,52,56,58,59,66,68) without differentiation. Performed at: =G - [facility] [id number] Cooker Cleaner: Cindy Pinzon MD, Phone: [phone] Performed at: - [facility] [id number] Cooker Cleaner: Cindy Pinzon MD, Phone: [phone] IGP, APTIMA HPV, RFX 16/18,45 Note . [facility] Comment on above: TESTS RESULT FLAG UN ITS REF RANGE LAB DIAGNOSIS: 02 NEGATIVE FOR INTRAEPITHELIAL LESION OR MALIGNANCY. Specimen adequacy: 02 Satisfactory for evaluation. No endocervical component is identified. Performed by: 02 Yanni Dela Cruz, Medical Affairs Leader (ASCP) . 02 Note: Note 02 The [...] <-Panic Low,>-Panic High,A-Abnormal,AA-Critical Abnormal Performed at: [address] [address] Cindy Pinzon MD, SPATULA-ALONE VAGINA CLIN[facility]NC [facility] Healthcar e RECURRENT VAGINITIS (HTRX)on 12-06-2024 ATOPOBIUM VAGINAE 0 [facility] ATOPOBIUM VAGINAE Not detected [facility] BVAB 2,3 (BACTERIAL VAGINOSIS ASSOCIATED BACTERIA 2, 3); MOBILUNCUS SPP 0 [facility] BVAB 2,3 (BACTERIAL VAGINOSIS ASSOCIATED BACTERIA 2, 3); MOBILUNCUS SPP Not detected [facility] KENA ALBICANS, PARAPSILOSIS, TROPICALIS 0 [facility] Healthcare KENA ALBICANS, PARAPSILOSIS, TROPICALIS Not detected [facility] KENA GLABRATA 0 [facility] KENA GLABRATA Not detected [facility] KENA KRUSEI 0 [facility] Healt hcare KENA KRUSEI Not detected [facility] CHLAMYDIA TRACHOMATIS 0 [facility] CHLAMYDIA TRACHOMATIS Not detected [facility] GARDNERELLA VAGINALIS 0 [facility] S Healthcare GARDNERELLA VAGINALIS Not detected [facility] MEGASPHAERA (TYPES 1, 2) 0 [facility] MEGASPHAERA (TYPES 1, 2) Not detected [facility] MYCOPLASMA GENITALIUM 0 [facility] MYCOPLASMA GENITALIUM Not detected [facility] NEISSERIA GONORRHOEAE 0 [facility] S Healthcare NEISSERIA GONORRHOEAE Not detected [facility] TRICHOMONAS VAGINALIS 0 [facility] S Healthcare TRICHOMONAS VAGINALIS Not detected [facility] Health[facility] e Urinalysis macro (dipstick) panel (U)on 12-04-2024 Bilirubin, UA Negative Negative - 4(70) +++ mg/dL [facility] Blood, UA Negative Negative - 50 Celestino/mcL [facility] Clarity, UA Clear [facility] Healthmt re Color, UA Yellow [facility] e Glucose, UA Negative Negative - 2000(110) ++++ mg/dL [facility] Interpretation and review of laboratory results Normal [facility] Ketones, UA Negative Negative - 160(16) ++++ mg/dL [facility] Leukocytes, UA Positive Negative - 500+++ Dodie/mcL [facility] Comment on above: small Nitrite, UA Negative Negative - Positive [facility] pH, UA 7 5 - 9 [facility] Healthcar e Protein, UA Negative Negative - 1999(20) ++++ mg/dL [facility] Spec Grav, UA 1.015 1 - 1.03 [facility] Urobilinogen, UA 0.2 0.2 - 12 mg/dL [facility] Glucose random or fasting- P OCTOrdered By: James Rader on 11-24-2024 External Glucose Fasting Or Random (Fbs) 94 [facility] Urinalysis macro (dipstick) panel (U)on 11-13-2024 Bilirubin, UA Negative Negative - 4(70) +++ mg/dL [facility] Blood, UA Negative Negative - 50 Celestino/mcL [facility] Clarity, UA Clear [facility] re Color, UA Yellow [facility] e Glucose, UA Negative Negative - 1999(110) ++++ mg/dL [facility] Interpretation and review of laboratory results Abnormal [facility] Ketones, UA Negative Negative - 160(16) ++++ mg/dL [facility] Leukocytes, UA Trace Negative - 500+++ Dodie/mcL [facility] Nitrite, UA Negative Negative - Positive [facility] pH, UA 6 5 - 9 [facility] Healthcar e Protein, UA Negative Negative - 1999(20) ++++ mg/dL [facility] Spec Grav, UA 1.01 1 - 1.03 [facility] Urobilinogen, UA 0.2 0.2 - 12 mg/dL [facility] BOX TESTon 11-11-2024 BOX TEST SENT OUT [facility] BOX[address] unity [facility] Healthcar e BOX[address] 11/11/24 [facility] Health[employer] e [employer] BOX [facility] Healthcar e HCG ( test) Ql (U)o n 10-16-2024 Interpretation and review of laboratory results Abnormal [facility] Preg Test, Ur Positive Negative [facility] care [facility] US OB TRANSVAGINALon [...] MD, PHD at 16-Oct-2024 11:21:08 PM [facility] Normal Not Available Comment on above: [...] MD, PHD at 16-Oct-2024 11:21:08 PM [facility] [employer] IMAGING Ekaterina French MD - 10/16/2024 EXAM: [...] II, MD, PHD at 16-Oct-2024 11:21:08 PM [facility] [employer] Radiology Study observation (narrative) [facility] US Pelvis transvaginalOrdere d By: Ekaterina French on 10-16-2024 [facility] Healthcar e Work Phone: Urinalysis macro (dipstick) panel (U)on 10-16-2024 Bilirubin, UA Negative Negative - 4(70) +++ mg/dL [facility] Blood, UA Negative Negative - 50 Celestino/mcL [facility] Clarity, UA Clear [facility] re Color, UA Yellow [facility] Healthcar e Glucose, UA Negative Negative - 1999(110) ++++ mg/dL [facility] Interpretation and review of laboratory results Abnormal [facility] Ketones, UA Positive Negative - 160(16) ++++ mg/dL [facility] Comment on above: 80mg/dL Leukocytes, UA Positive Negative - 500+++ Dodie/mcL [facility] Comment on above: small Nitrite, UA Negative Negative - Positive [facility] pH, UA 5.5 5 - 9 [facility] Healthcar e Protein, UA Positive Negative - 1999(20) ++++ mg/dL [facility] Comment on above: 30mg/dL Spec Grav, UA 1.03 1 - 1.03 [facility] Urobilinogen, UA 0.2 0.2 - 12 mg/dL [facility] HGB AND HCTon 12-21-2023 Hematocrit (Bld) [Volume fraction] 28.7 % Low 35-47 [facility] Comment on above: Performed By: #### H H #### [facility] ([id number]) [address] [place] [address] Hemoglobin (Bld) [Mass/Vol] 9.8 g/dL Low 11.7-15.5 [facility] Comment on above: Performed By: #### H H #### [facility] ([id number]) [address] [place] [address] Surgical Pathologyon 024 Surgical Pathology Normal [facility] Comment on above: Result Comment: [facility] [address] [place] [address] Surgical Pathology Consultation Patient Name:SYDNIE MOSQUEDAB:1990 (Age: 33)Gender:FTaken:12/21/2023eported:12/28/2023hysician(s):Randy Greene MD ([phone])Copy To: Rec. #:[id number]: #[id number] Final Pathologic Diagnosis Products of conception; removal: Products of conception (gestational sac with immature chorionic villi) and fragments of decidua with acute inflammation and necrosis. Report Electronically Signed Out wacha/12/28/2023Pradeep Brannon MD [place] [address], License number: [id number]. Clinical History Spontaneous , miscarriage. Gross Description Received in formalin labeled PANDA Karyotype: No Aggregate measurement: 5.2 x 3.8 x 2.0 cm. Placenta: 3.4 x 2.8 x 1.5 cm Decidua/Clot: 1.8 x 1.0 x 0.5 cm Gestational Sac: Yes, intact Tissue: No Molar Tissue: No Cassettes: A-C placenta (3, ss, [id number],m5) DM Received fresh-no site on container. POC for routine surgical path. Per Ariana pierson/12/21/2023GR Specimen(s) Received Products of conception Fee Codes(s): 1; 29477 US PREG LESS THAN 14 WKS WIT [...] on 12/21/2023 8:46 AM Normal [facility] BASIC METABOLIC PANLon 12-19 Anion gap [Moles/Vol] 6 mmol/L Normal 5-15 [facility] Comment on above: Performed By: #### B CUCO CBCA, #### [facility] ([id number]) [address] [place] [address] Calcium [Mass/Vol] 8.9 mg/dL Normal 8.5-10.5 [facility] Comment on above: Performed By: #### B CUCO, CBCA, #### [facility] ([id number]) [address] [place] [address] Chloride [Moles/Vol] 105 mmol/L Normal 98-109 [facility] Comment on above: Performed By: #### B CUCO, CBCA, #### [facility] ([id number]) [address] [place] [address] CO2 [Moles/Vol] 24 mmol/L Normal 22-32 [facility] Comment on above: Performed By: #### B CUCO, CBCA, #### [facility] ([id number]) [address] [place] [address] Creatinine [Mass/Vol] 0.74 mg/dL Normal 0.40-1.00 [facility] Comment on above: Result Comment: METH OD TRACEABLE TO IDMS STANDARD Performed By: #### B CHETAN NORWOOD, #### [facility] ([id number]) [address] [place] [address] eGFR (CKD-EPI) NON-RACE DEPENDENT >90 Normal >59 [facility] Comment on above: Result Comment: Reported eGFR is based on the CKD-EPI 2020 equation that does not use a race coefficient. Performed By: #### B CHETAN NORWOOD, #### [facility] ([id number]) [address] [place] [address] Glucose [Mass/Vol] 149 mg/dL High 65-99 [facility] Comment on above: Performed By: #### B CHETAN NORWOOD, #### [facility] ([id number]) [address] [place] [address] Potassium [Moles/Vol] 3.6 mmol/L Normal 3.5-5.0 [facility] Comment on above: Performed By: #### B CHETAN NORWOOD, #### [facility] ([id number]) [address] [place] [address] Sodium [Moles/Vol] 135 mmol/L Normal 134-146 [facility] Comment on above: Performed By: #### B CHETAN NORWOOD, #### [facility] ([id number]) [address] [place] [address] Urea nitrogen [Mass/Vol] 10 mg/dL Normal 5-23 [facility] Comment on above: Performed By: #### B CHETAN NORWOOD, #### [facility] ([id number]) [address] [place] [address] [id number] CBC AND AUTO DIFFon 12-20-19 24 ABSOLUTE BASOPHIL 0.0 X10E9/L Normal 0.0-0.2 [facility] Comment on above: Performed By: #### B MP, CBCA, #### [facility] ([id number]) [address] [place] [address] 31240 ABSOLUTE NEUTROPHIL 4.9 X10E9/L Normal 1.5-6.6 [facility] Comment on above: Performed By: #### B MP, CBCA, #### [facility] ([id number]) [address] [place] [address] 41246 Basophils/100 WBC (Bld) 0.4 % Normal [facility] Comment on above: Performed By: #### B MP, CBCA, #### [facility] ([id number]) [address] [place] [address] 11221 Eosinophils (Bld) [#/Vol] 0.3 10*3/uL Normal 0.0-0.4 [facility] Comment on above: Performed By: #### B CUCO, CBCA, #### [facility] ([id number]) [address] [place] [address] 17532 Eosinophils/100 WBC (Bld) 2.3 % Normal [facility] Comment on above: Performed By: #### B MP, CBCA, #### [facility] ([id number]) [address] [place] [address] 89988 Erythrocyte distribution width (RBC) [Ratio] 13.8 % Normal 11.5-15.0 [facility] Comment on above: Performed By: #### B MP, CBCA, #### [facility] ([id number]) [address] [place] [address] 97714 Hematocrit (Bld) [Volume fraction] 34.8 % Low 35-47 [facility] Comment on above: Performed By: #### B CUCO CBCA, #### [facility] ([id number]) [address] [place] [address] 85187 Hemoglobin (Bld) [Mass/Vol] 11.5 g/dL Low 11.7-15.5 [facility] Comment on above: Performed By: #### B CUCO CBCA, #### [facility] ([id number]) [address] [place] [address] 09085 Lymphocytes (Bld) [#/Vol] 4.6 10*3/uL High 1.0-3.5 [facility] Comment on above: Performed By: #### B CUCO CBCA, #### [facility] ([id number]) [address] [place] [address] 77128 Lymphocytes/100 WBC (Bld) 41.7 % Normal [facility] Comment on above: Performed By: #### B CUCO CBCA, #### [facility] ([id number]) [address] [place] [address] 94445 MCH (RBC) [Entitic mass] 27.8 pg Normal 27-34 [facility] Comment on above: Performed By: #### B CUCO CBCA, #### [facility] ([id number]) [address] [place] [address] 53020 MCHC (RBC) [Mass/Vol] 33.0 g/dL Normal 32-36 [facility] Comment on above: Performed By: #### B CUCO CBCA, #### [facility] ([id number]) [address] [place] [address] 54616 MCV (RBC) [Entitic vol] 84 fL Normal 80-100 [facility] Comment on above: Performed By: #### B MP, CBCA, #### [facility] ([id number]) [address] [place] [address] 96137 Monocytes (Bld) [#/Vol] 1.2 10*3/uL High 0-0.9 [facility] Comment on above: Performed By: #### B MP, CBCA, #### [facility] ([id number]) [address] [place] [address] 75673 Monocytes/100 WBC (Bld) 11.1 % Normal [facility] Comment on above: Performed By: #### B MP, CBCA, #### [facility] ([id number]) [address] [place] [address] 77681 Neutrophils/100 WBC (Bld) 44.5 % Normal [facility] Comment on above: Performed By: #### B MP, CBCA, #### [facility] ([id number]) [address] [place] [address] 14475 Platelet mean volume (Bld) [Entitic vol] 7.6 fL Normal 7-12 [facility] Comment on above: Performed By: #### B MP, CBCA, #### [facility] ([id number]) [address] [place] [address] 35782 Platelets (Bld) [#/Vol] 323 10*3/uL Normal 150-450 [facility] Comment on above: Performed By: #### B MP, CBCA, #### [facility] ([id number]) [address] [place] [address] 63480 RBC COUNT 4.12 X10E12/L Normal 3.80-5.20 [facility] Comment on above: Performed By: #### B MP, CBCA, #### [facility] ([id number]) [address] [place] [address] 45796 WBC (Bld) [#/Vol] 11.0 10*3/uL Normal 4.0-11.0 [facility] Comment on above: Performed By: #### B CUCO, CBCA, #### [facility] ([id number]) [address] [place] [address] 40204 HCG.beta subunit IA 3rd IS Q non 12-20-2023 HCG.beta subunit Qn 5361 m[IU]/mL Normal [facility] Comment on above: Result Comment: [...] Performed By: #### B CUCO, CBCA, #### [facility] ([id number]) [address] [place] [address] 90668 HCG ( test) Ql (U)o n 12-19-2023 Beta HCG ( test) Ql (U) Positive Abnormal NEG [facility] Comment on above: Performed By: #### 2 106-3 #### [facility] ([id number]) [address] [place] [address] 57372 HCG.beta subunit IA 3rd IS Q non 12-19-2023 HCG.beta subunit Qn 6620 m[IU]/mL Normal [facility] Comment on above: Result Comment: [...] neoplasms. Performed By: #### 2 0415-6 #### [facility] ([id number]) [address] [place] [address] 77226 URN MACROSCOPIC NURon 2023 BILIRUBIN NIKITA Small Abnormal NEG [facility] Comment on above: Performed By: #### N UM #### [facility] ([id number]) [address] [place] [address] 93844 BLOOD/HGB NIKITA Large Abnormal NEG [facility] Comment on above: Performed By: #### N UM #### [facility] ([id number]) [address] [place] [address] 14244 GLUCOSE NIKITA Negative Normal NEG [facility] Comment on above: Performed By: #### N UM #### [facility] ([id number]) [address] [place] [address] 58891 KETONES NIKITA Trace Abnormal NEG [facility] Comment on above: Performed By: #### N UM #### [facility] ([id number]) [address] [place] [address] LEUKOCYTE ESTERASE NIKITA Negative Normal NEG [facility] Comment on above: Performed By: #### N UM #### [facility] ([id number]) [address] [place] [address] 65497 NITRITE NIKITA Negative Normal NEG [facility] Comment on above: Performed By: #### N UM #### [facility] ([id number]) [address] [place] [address] 68671 PH NIKITA 6.0 Normal 5.0-8.5 [facility] Comment on above: Performed By: #### N UM #### [facility] ([id number]) [address] [place] [address] 17539 PROTEIN NIKITA 100 mg/dL Abnormal NEG [facility] Comment on above: Performed By: #### N UM #### [facility] ([id number]) [address] [place] [address] 58587 SPECIFIC GRAVITY NIKITA >=1.030 Normal 1.003-1.035 [facility] Comment on above: Performed By: #### N UM #### [facility] ([id number]) [address] [place] [address] 12845 UROBILINOGEN NIKITA 1.0 eu/dL Normal <1.1 [facility] Comment on above: Performed By: #### N UM #### [facility] ([id number]) [address] [place] [address] 36498 US PREG LESS THAN 14 WKS WIT [...] Overton MD on 12/19/2023 6:46 PM Normal [facility] Chlamydia/GC/Trich NAAon Chlamydia Trachomotis, CARLITOS Negative Normal Negative [facility] Comment on above: Performed By: #### C UU #### [address] #### GCCHLAMTRI #### [facility] , Neisseria Gonorrhoeae, CARLITOS Negative Normal Negative [facility] Comment on above: Performed By: #### C UU #### [facility] [address] [place] [address] #### GCCHLAMTRI #### [facility] , Trichomonas CARLITOS Negative Normal Negative [facility] Comment on above: Result Comment: Perf ormed at: =G - [facility] [address] [id number] Cooker Cleaner: Cindy Pinzon MD, Phone: [phone] PERFORMED BY: [place] [address] PATHOLOGIST GENERAL CAR SUPERVISOR YARD BROOKLYNN PEARCE M.D. Performed By: #### C UU #### [address] [place] [address] [place] #### GCCHLAMTRI #### [facility] , Urine Cultureon 03-01-2022 Bacteria identified Cx Nom (U) 30,000 colonies/ml mixed bacterial skin contaminants 2 Days PERFORMED BY: [address] [place] [address] PATHOLOGIST GENERAL CAR SUPERVISOR YARD BROOKLYNN PEARCE M.D. Normal [facility] Comment on above: Performed By: #### C UU #### [facility] [address] [place] [address] #### GCCHLAMTRI #### [facility] , Pap IG,rfx Aptima HPV all pt hon 11-16-2021 . . Normal [facility] Comment on above: Performed By: #### H IV12 #### [place] [facility] [address] [place] [address] Andriy Stein DIAGNOSIS: Comment Normal [facility] Comment on above: Result Comment: NEGA TIVE FOR INTRAEPITHELIAL LESION OR MALIGNANCY. THIS SPECIMEN WAS RESCREENED PART OF OUR CLEANING MAID PROGRAM. Performed By: #### H IV12 #### [place] [facility] [address] [place] [address] Andriy Stein Methodology: Comment [facility] Comment on above: Result Comment: This liquid based ThinPrep(R) pap test was screened with the use of an image guided system. Performed By: #### H IV12 #### [place] [facility] [address] [place] [address] Andriy Stein Note: Comment [facility] Comment on above: Result Comment: The Pap smear is a screening test designed to aid in the detection of premalignant and malignant conditions of the uterine cervix. It is not a diagnostic procedure and should not be used as the sole means of detecting cervical cancer. Both false-positive and false-negative reports do occur. . Performed By: #### H IV12 #### [place] [facility] [address] [place] [address] Andriy Stein Performed by: Comment Normal [facility] Comment on above: Result Comment: Nathalia Dela Cruz, Icer Hand (ASCP) Performed By: #### H IV12 #### [place] [facility] [address] [place] [address] Andriy Sarita QC reviewed by: Comment Normal [facility] Comment on above: Result Comment: Hebert Motley, Supervisory Icer Hand (ASCP) Performed By: #### H IV12 #### [place] [facility] [address] [place] [address] Andriy Sarita Reflex Criteria: Comment Normal [facility] Comment on above: Result Comment: The HPV DNA reflex criteria were not met with this specimen result therefore, no HPV testing was performed. . Performed By: #### H IV12 #### [place] [facility] [address] [place] [address] Andriy Sarita Specimen adequacy: Comment Normal [facility] Comment on above: Result Comment: Sati sfactory for evaluation. Endocervical and/or squamous metaplastic cells (endocervical component) are present. Performed By: #### H IV12 #### [place] [facility] [address] [place] [address] Andriy Sarita CBC AUTO DIFFon 07-31-2021 BASO # 0.0 103/ul Normal 0.0-0.[address] [facility] Comment on above: Performed By: #### H IV12 #### [place] [facility] [address] [place] [address] Andriy Sarita Basophils/100 WBC (Bld) 0.2 % Normal 0.2-2.0 [facility] Comment on above: Performed By: #### H IV12 #### [place] [facility] [address] [place] [address] Andriy Sarita EO # 0.2 103/ul Normal 0.0-0.[address] [facility] Comment on above: Performed By: #### H IV12 #### [place] [facility] [address] [place] [address] Andriy Sarita Eosinophils/100 WBC (Bld) 1.4 % Normal 0.9-7.[address] [facility] Comment on above: Performed By: #### H IV12 #### [place] [facility] [address] [phone] Andriy Sarita Erythrocyte distribution width (RBC) [Ratio] 16.9 % Critically high 11.0-15.[address] [facility] Comment on above: Performed By: #### H IV12 #### [place] [facility] [address] [address] Andriy Sarita Hematocrit (Bld) [Volume fraction] 28.9 % Critically low 36.0-48.[address] [facility] Comment on above: Performed By: #### H IV12 #### [place] [facility] [address] [place] [address] Andriy Sarita Hemoglobin (Bld) [Mass/Vol] 9.2 g/dL Critically low 12.0-16.0 [facility] [place] [facility] Comment on above: Result Comment: NUVIA ENT DELIVERED Performed By: #### H IV12 #### [place] [facility] [address] [place] [address] Andriy Sarita IG # 0.07 10e3/ul Critically high 0.00-0.03 [facility] Comment on above: Performed By: #### H IV12 #### [place] [facility] [address] [place] [address] Andriy Sarita IG % 0.7 % Critically high 0.0-0.5 [facility] Comment on above: Performed By: #### H IV12 #### [place] [facility] [address] [place] [address] Andriy Sarita LYMPH # 3.2 103/ul Normal 1.2-3.8 [facility] [place] [facility] Comment on above: Performed By: #### H IV12 #### [place] [facility] [address] [place] [address] Andriy Sarita Lymphocytes/100 WBC (Bld) 29.7 % Normal 20.5-60.[address] [facility] Comment on above: Performed By: #### H IV12 #### [place] [facility] [address] [place], [place] [phone] Andriy Sarita MANUAL DIFF REQ NO Normal [facility] Comment on above: Performed By: #### H IV12 #### [place] [facility] [address] [place], [place] [address] Andriylogan Stein MCH (RBC) [Entitic mass] 28.0 pg Normal 26.7-34.[address] [facility] Comment on above: Performed By: #### H IV12 #### [place] [facility] [address] [phone] Andriy Stein MCHC (RBC) [Mass/Vol] 31.8 g/dL Normal 29.9-35.[address] [facility] Comment on above: Performed By: #### H IV12 #### [place] [facility] [address] [phone] Andriylogan Stein MCV (RBC) [Entitic vol] 87.8 fL Normal 81.0-99.0 [facility] Comment on above: Performed By: #### H IV12 #### [place] [facility] [address] [place] [address] Andriylogan Stein MONO # 0.9 103/ul Critically high 0.3-0.8 [facility] Comment on above: Performed By: #### H IV12 #### [place] [facility] [address] [place], [place] [address] Andriylogan Stein Monocytes/100 WBC (Bld) 8.3 % Normal 1.7-12.0 [facility] Comment on above: Performed By: #### H IV12 #### [place] [facility] [address] [place], [place] [address] Andriy Stein NEUT # 6.3 103/ul Normal 1.4-6.[address] [facility] Comment on above: Performed By: #### H IV12 #### [place] [facility] [address] [place], [place] [address] Andriy Sarita Neutrophils/100 WBC (Bld) 59.7 % Normal 43.0-75.[address] [facility] Comment on above: Performed By: #### H IV12 #### [place] [facility] [address] [place], [place] [address] Andriylogan Stein Platelet mean volume (Bld) [Entitic vol] 9.7 fL Normal 9.5-13.[address] [facility] Comment on above: Performed By: #### H IV12 #### [place] [facility] [address] [place], [place] [address] Andriy Stein PLT 173 103/ul Normal 150-450 [facility] [place] [facility] Comment on above: Performed By: #### H IV12 #### [place] [facility] [address] [place], [place] [address] Andriy Stein RBC 3.29 106/ul Critically low 4.20-5.40 [facility] Comment on above: Performed By: #### H IV12 #### [place] [facility] [address] [place], [place] [address] Andriy Stein WBC 10.6 103/ul Normal 4.0-11.0 [facility] [place] [facility] Comment on above: Performed By: #### H IV12 #### [place] [facility] [address] [place] [address] Andriy Stein ASYMPTOMATIC COVID-19 ANTIGE Non 07-30-2021 EUA Statement SEE BELOW Normal [facility] Comment [...] sooner. Performed By: #### H BSANS #### [place] [facility] [address] [place] [address] Andriy Stein SARS-CoV-2 (COVID-19) RNA CARLITOS+probe Ql (Unsp spec) Negative Normal NEGATIVE [facility] [place] [facility] Comment on above: Result Comment: Nega tive results are presumptive. They do not preclude infection and should not be used as the sole basis for treatment decisions. Additional confirmatory testing by a molecular method should be considered. Performed By: #### H BSANS #### [place] [facility] [address] [place], [place] [address] Andriy Stein CBC AUTO DIFFon 07-30-2021 BASO # 0.0 103/ul Normal 0.0-0.[address] [facility] Comment on above: Performed By: #### C BC ####[place] [facility] [address] [address]Dr. Chelsiebriana Conner Basophils/100 WBC (Bld) 0.2 % Normal 0.2-2.0 [facility] Comment on above: Performed By: #### C BC ####[place] [facility] [address] [address]Dr. Chelsiebriana Conner EO # 0.1 103/ul Normal 0.0-0.[address] [facility] Comment on above: Performed By: #### C BC ####[facility] [address] [address]Dr. Sunil Conner Eosinophils/100 WBC (Bld) 1.0 % Normal 0.9-7.[address] [facility] Comment on above: Performed By: #### C BC ####[facility] [address] [place], [place] [address]Dr. Sunil Conner Erythrocyte distribution width (RBC) [Ratio] 17.0 % Critically high 11.0-15.[address] [facility] Comment on above: Performed By: #### C BC ####[facility] [address] [address]Dr. Sunil Conner Hematocrit (Bld) [Volume fraction] 37.5 % Normal 36.0-48.[address] [facility] Comment on above: Performed By: #### C BC ####[facility] [address] [place], [place] [address]Dr. Sunil Conner Hemoglobin (Bld) [Mass/Vol] 12.3 g/dL Normal 12.0-16.[address] [facility] Comment on above: Performed By: #### C BC ####[facility] [address] [place], [place] [address]Dr. Sunil Conner IG # 0.05 10e3/ul Critically high 0.00-0.03 [facility] Comment on above: Performed By: #### C BC ####[facility] [address] [address]DrWilson Sunil Conner IG % 0.5 % Normal 0.0-0.[address] [facility] Comment on above: Performed By: #### C BC ####[facility] [address] [address]DrWilson Sunil Ubaldo LYMPH # 2.8 103/ul Normal 1.2-3.[address] [facility] Comment on above: Performed By: #### C BC ####[facility] [address] [address]DrWilson Sunil Ubaldo Lymphocytes/100 WBC (Bld) 28.4 % Normal 20.5-60.[address] [facility] Comment on above: Performed By: #### C BC ####[facility] [address] [place], [place] [address]DrWilson Chelsiebriana Conner MANUAL DIFF REQ NO Normal [facility] Comment on above: Performed By: #### C BC ####[facility] [address] [address]Dr. Sunil Ubaldo MCH (RBC) [Entitic mass] 28.5 pg Normal 26.7-34.[address] [facility] Comment on above: Performed By: #### C BC ####[facility] [address] [place], [place] [address]Dr. Sunil Ubaldo MCHC (RBC) [Mass/Vol] 32.8 g/dL Normal 29.9-35.[address] [facility] Comment on above: Performed By: #### C BC ####[facility] [address] [place], [place] [address]DrWilson Sunil Ubaldo MCV (RBC) [Entitic vol] 86.8 fL Normal 81.0-99.0 [facility] Comment on above: Performed By: #### C BC ####[facility] [address] [place], [place] [address]DrWilson Conner MONO # 0.8 103/ul Normal 0.3-0.[address] [facility] Comment on above: Performed By: #### C BC ####[facility] [address] [address]Dr. Sunil Conner Monocytes/100 WBC (Bld) 7.9 % Normal 1.7-12.0 [facility] Comment on above: Performed By: #### C BC ####[facility] [address] [address]Dr. Sunil Conner NEUT # 6.0 103/ul Normal 1.4-6.[address] [facility] Comment on above: Performed By: #### C BC ####[facility] [address] [address]Dr. Sunil Conner Neutrophils/100 WBC (Bld) 62.0 % Normal 43.0-75.[address] [facility] Comment on above: Performed By: #### C BC ####[facility] [address] [place], [place] [address]Dr. Sunil Conner Platelet mean volume (Bld) [Entitic vol] 10.2 fL Normal 9.5-13.[address] [facility] Comment on above: Performed By: #### C BC ####[facility] [address] [place], [place] [address]Dr. Sunil Conner PLT 207 103/ul Normal 150-450 [facility] [place] [facility] Comment on above: Performed By: #### C BC ####[facility] [address] [address]Dr. Sunil Conner RBC 4.32 106/ul Normal 4.20-5.[address] [facility] Comment on above: Performed By: #### C BC ####[facility] [address] [id number]. Sunil Conner WBC 9.7 103/ul Normal 4.0-11.0 [facility] [place] [facility] Comment on above: Performed By: #### C BC ####[facility] [address] [address]Dr. Sunil Conner DRUG SCREEN RAPID (URINE)on 07-30-2021 AMP Negative Normal NEGATIVE [facility] [place] [facility] Comment on above: Performed By: #### D RUGRPD ####[facility] [address] [address]Dr. Sunil Conner BAR Negative Normal NEGATIVE [facility] [place] [facility] Comment on above: Performed By: #### D RUGRPD ####[facility] [address] [address]Dr. Sunil Conner BUP Negative Normal NEGATIVE [facility] [place] [facility] Comment on above: Performed By: #### D RUGRPD ####[facility] [address] [place], [place] [address]Dr. Sunil Conner BZO Negative Normal NEGATIVE [facility] [place] [facility] Comment on above: Performed By: #### D RUGRPD ####[facility] [address] [place], [place] [address]Dr. Sunil Conner TAMICA Negative Normal NEGATIVE [facility] [place] [facility] Comment on above: Performed By: #### D RUGRPD ####[facility] [address] [place], [place] [address]Dr. Sunil Conner CUT-OFFS SEE BELOW Normal [facility] [place] [facility] Comment on above: Result Comment: AMP (Amphetamine): 500ng/mL, BAR (Barbituates): 200 ng/mL, BZO (Benzodiazepines): 150 ng/mL, BUP (Buprenorphine): 10 ng/mL, TAMICA (Cocaine): 150 ng/mL, mAMP (Methamphetamine): 500 ng/mL, MTD (Methadone): 200 ng/mL, OPI (Opiates): 100 ng/mL, OXY (Oxycodone): 100 ng/mL, PCP (Phencyclidine): 25 ng/mL, PPX (Propoxyphene): 300 ng/mL, THC (Cannabinoids): 50 ng/mL, TCA (Trycyclic Antidepressants): 300 ng/mL Performed By: #### D RUGRPD ####[facility] [address] [place], [place] [address]Dr. Sunil Conner DRUG CUT HEADER DRUG CLASS TEST SYSTEM CUT-OFF CONCENTRATIONS ARE FOLLOWS: Normal [facility] Comment on above: Performed By: #### D RUGRPD ####[facility] [address] [place], [place] [address]Dr. Sunil Conner mAMP Negative Normal NEGATIVE [facility] Comment on above: Performed By: #### D RUGRPD ####[facility] [address] [id number]. Sunil Conner MTD Negative Normal NEGATIVE [facility] Comment on above: Performed By: #### D RUGRPD ####[facility] [address] [id number]. Sunil Conner OPI Negative Normal NEGATIVE [facility] Comment on above: Performed By: #### D RUGRPD ####[facility] [address] [address]Dr. Sunil Conner OXY Negative Normal NEGATIVE [facility] Comment on above: Performed By: #### D RUGRPD ####[facility] [address] [address]Dr. Sunil Ubaldo PCP Negative Normal NEGATIVE [facility] Comment on above: Performed By: #### D RUGRPD ####[facility] [address] [address]Dr. Sunil Conner PPX Negative Normal NEGATIVE [facility] Comment on above: Performed By: #### D RUGRPD ####[facility] [address] [address]Dr. Sunil Conner TCA Negative Normal NEGATIVE [facility] Comment on above: Performed By: #### D RUGRPD ####[facility] [address] [address]Dr. Sunil Ubaldo THC Negative Normal NEGATIVE [facility] Comment on above: Performed By: #### D RUGRPD ####[facility] [address] [address]Dr. Sunil Conner TYPE AND SCREENon 07-30-2021 TYPE AND SCREEN Negative Normal [facility] Comment on above: Performed By: #### T NS #### [facility] [address] [address] [address] Sunil Conner US PREG BIOPHY W [...] by: NADIA DOOLEY Date: 2021-07-13 10:[address] [facility] US PREG GROWTHon 07-11-2021 US PREG [...] EFW: 6 lbs. 3 oz., 37% FL/AC: 0.687812 FL/BPD: 0.868069 HC/AC: 0.806492 GESTATIONAL AGE: Age by EDC: 36 weeks 4 days FAHEEM by EDC: 08/04/2021 Age by US: 35 weeks 3 days FAHEEM by US: 08/12/2021 IMPRESSION: Normal interval growth Electronically authenticated by: NADIA DOOLEY Date: 2021-07-11 10:[address] [facility] COVID Quick Testingon 2021 Result Negative [facility] Other Quick Strepon 07-09-2021 S. pyogenes Org specific cx Ql (Throat) Negative [facility] Other Quick Strep [facility] Other GROUP B STREP CULTUREon 06-25 S. agalactiae Ag Ql (Unsp spec) Culture Observations: NEGATIVE FOR GROUP B STREPTOCOCCUS. Normal [facility] Comment on above: Performed By: #### G BSCX #### [facility] [address] [address] [address] Sunil Conner PREG GROWTHon 06-20-2021 US [...] EFW: 4 lbs. 14 oz., 53% FL/AC: 0.049928 FL/BPD: 0.521862 HC/AC: 1.733664 GESTATIONAL AGE: Age by EDC: 33 weeks 4 days FAHEEM by EDC: 08/04/2021 Age by US: 33 weeks 1 day FAHEEM by US: 08/07/2021 IMPRESSION: Normal interval growth Electronically authenticated by: NADIA DOOLEY Date: 2021-06-20 11:46 Normal [facility] CBC AUTO DIFFon 06-08-2021 BASO # 0.0 103/ul Normal 0.0-0.[address] [facility] Comment on above: Performed By: #### H IV12 #### [facility] [address] [place] [address] Andriy Sarita Basophils/100 WBC (Bld) 0.5 % Normal 0.2-2.0 T [facility] Comment on above: Performed By: #### H IV12 #### [facility] [address] [place], [place] [id number] Andriy Sarita EO # 0.1 103/ul Normal 0.0-0.[address] [facility] Comment on above: Performed By: #### H IV12 #### [facility] [address] [place], [place] [id number] Andriy Sarita Eosinophils/100 WBC (Bld) 1.3 % Normal 0.9-7.[address] [facility] Comment on above: Performed By: #### H IV12 #### [facility] [address] [place] [address] Andriy Stein Erythrocyte distribution width (RBC) [Ratio] 19.8 % Critically high 11.0-15.[address] [facility] Comment on above: Performed By: #### H IV12 #### [facility] [address] [place] [address] Andriy Stein Hematocrit (Bld) [Volume fraction] 34.9 % Critically low 36.0-48.[address] [facility] Comment on above: Performed By: #### H IV12 #### [place] [facility] [address] [place] [address] Andriy Stein Hemoglobin (Bld) [Mass/Vol] 11.1 g/dL Critically low 12.0-16.[address] [facility] Comment on above: Performed By: #### H IV12 #### [place] [facility] [address] [place] [address] Andriylogan Stein IG # 0.04 10e3/ul Critically high 0.00-0.03 [facility] Comment on above: Performed By: #### H IV12 #### [place] [facility] [address] [place] [address] Andriylogan Stein IG % 0.5 % Normal 0.0-0.[address] [facility] Comment on above: Performed By: #### H IV12 #### [place] [facility] [address] [place] [address] Andriy Sarita LYMPH # 2.1 103/ul Normal 1.2-3.8 [facility] [place] [facility] Comment on above: Performed By: #### H IV12 #### [place] [facility] [address] [place] [address] Andriy Sarita Lymphocytes/100 WBC (Bld) 24.8 % Normal 20.5-60.[address] [facility] Comment on above: Performed By: #### H IV12 #### [place] [facility] [address] [place] [address] Andriy Stein MANUAL DIFF REQ NO Normal [facility] Comment on above: Performed By: #### H IV12 #### [place] [facility] [address] [place], [place] [id number] Andriy Stein MCH (RBC) [Entitic mass] 27.5 pg Normal 26.7-34.[address] [facility] Comment on above: Performed By: #### H IV12 #### [place] [facility] [address] [place], [place] [id number] Andriy Stein MCHC (RBC) [Mass/Vol] 31.8 g/dL Normal 29.9-35.[address] [facility] Comment on above: Performed By: #### H IV12 #### [place] [facility] [address] [place], [place] [id number] Andriy Stein MCV (RBC) [Entitic vol] 86.6 fL Normal 81.0-99.0 [facility] Comment on above: Performed By: #### H IV12 #### [place] [facility] [address] [place] [address] Andriy Rodgersen MONO # 0.7 103/ul Normal 0.3-0.[address] [facility] Comment on above: Performed By: #### H IV12 #### [place] [facility] [address] [place] [address] Andriy Stein Monocytes/100 WBC (Bld) 8.7 % Normal 1.7-12.0 [facility] Comment on above: Performed By: #### H IV12 #### [place] [facility] [address] [place] [address] Andriy Stein NEUT # 5.4 103/ul Normal 1.4-6.[address] [facility] Comment on above: Performed By: #### H IV12 #### [place] [facility] [address] [place], [place] [id number] Andriy Stein Neutrophils/100 WBC (Bld) 64.2 % Normal 43.0-75.[address] [facility] Comment on above: Performed By: #### H IV12 #### [place] [facility] [address] [place], [place] [id number] Andriy Stein Platelet mean volume (Bld) [Entitic vol] 9.9 fL Normal 9.5-13.[address] [facility] Comment on above: Performed By: #### H IV12 #### [place] [facility] [address] [place], [place] [address] Andriy Rodgersen PLT 232 103/ul Normal 150-450 [facility] [place] [facility] Comment on above: Performed By: #### H IV12 #### [place] [facility] [address] [id number] Andriy Sarita RBC 4.03 106/ul Critically low 4.20-5.40 [facility] Comment on above: Performed By: #### H IV12 #### [place] [facility] [address] [place], [place] [address] Andriy Sarita WBC 8.5 103/ul Normal 4.0-11.[address] [facility] Comment on above: Performed By: #### H IV12 #### [place] [facility] [address] [id number] Andriy Stein GTT 3 HR PREGon 04-30-2021 Glucose [Mass/Vol] 85 mg/dL Normal 74-106 [facility] Comment on above: Performed By: #### G TT3P ####[facility] [address] [address]Dr. Yilan Conner Glucose [Mass/Vol] 188 mg/dL Normal [facility] Comment on above: Performed By: #### G TT3P ####[facility] [address] [address]Dr. Yilan Conner Glucose [Mass/Vol] 133 mg/dL Normal [facility] Comment on above: Performed By: #### G TT3P ####[facility] [address] [address]Dr. Yilan Conner Glucose [Mass/Vol] 122 mg/dL Normal [facility] Comment on above: Performed By: #### G TT3P ####[facility] [address] [address]Dr. Yilan Conner CBC AUTO DIFFon 04-28-2021 BASO # 0.0 103/ul Normal 0.0-0.[address] [facility] Comment on above: Performed By: #### C BC #### [facility] [address] [address] [address] Sunil Conner Basophils/100 WBC (Bld) 0.3 % Normal 0.2-2.0 [facility] Comment on above: Performed By: #### C BC #### [place] [facility] [address] [address] [address] Sunil Conner EO # 0.1 103/ul Normal 0.0-0.[address] [facility] Comment on above: Performed By: #### C BC #### [place] [facility] [address] [address] [address] Sunil Conner Eosinophils/100 WBC (Bld) 1.2 % Normal 0.9-7.[address] [facility] Comment on above: Performed By: #### C BC #### [place] [facility] [address] [place] [address] Dr. Sunil Conner Erythrocyte distribution width (RBC) [Ratio] 14.6 % Normal 11.0-15.[address] [facility] Comment on above: Performed By: #### C BC #### [place] [facility] [address] [place] [address] Dr. Sunil Conner Hematocrit (Bld) [Volume fraction] 31.6 % Critically low 36.0-48.[address] [facility] Comment on above: Performed By: #### C BC #### [place] [facility] [address] [place] [address] Dr. Sunil Conner Hemoglobin (Bld) [Mass/Vol] 9.9 g/dL Critically low 12.0-16.[address] [facility] Comment on above: Performed By: #### C BC #### [place] [facility] [address] [address] [address] Sunil Conner IG # 0.05 10e3/ul Critically high 0.00-0.03 [facility] Comment on above: Performed By: #### C BC #### [place] [facility] [address] [address] [address] Sunil Conner IG % 0.5 % Normal 0.0-0.[address] [facility] Comment on above: Performed By: #### C BC #### [place] [facility] [address] [address] [address] Sunil Conner LYMPH # 2.4 103/ul Normal 1.2-3.[address] [facility] Comment on above: Performed By: #### C BC #### [place] [facility] [address] [place] [address] Dr. Sunil Conner Lymphocytes/100 WBC (Bld) 25.6 % Normal 20.5-60.[address] [facility] Comment on above: Performed By: #### C BC #### [place] [facility] [address] [place] [address] Dr. Sunil Conner MANUAL DIFF REQ NO Normal [facility] Comment on above: Performed By: #### C BC #### [place] [facility] [address] [place] [address] Dr. Sunil Conner MCH (RBC) [Entitic mass] 25.8 pg Critically low 26.7-34.[address] [facility] Comment on above: Performed By: #### C BC #### [place] [facility] [address] [place] [address] Dr. Sunil Conner MCHC (RBC) [Mass/Vol] 31.3 g/dL Normal 29.9-35.[address] [facility] Comment on above: Performed By: #### C BC #### [place] [facility] [address] [place] [address] Dr. Sunil Conner MCV (RBC) [Entitic vol] 82.3 fL Normal 81.0-99.0 [facility] Comment on above: Performed By: #### C BC #### [place] [facility] [address] [place] [address] Dr. Sunil Conner MONO # 0.5 103/ul Normal 0.3-0.[address] [facility] Comment on above: Performed By: #### C BC #### [place] [facility] [address] [place] [address] Dr. Sunil Conner Monocytes/100 WBC (Bld) 5.3 % Normal 1.7-12.0 [facility] Comment on above: Performed By: #### C BC #### [place] [facility] [address] [place] [address] Dr. Sunil Conner NEUT # 6.4 103/ul Normal 1.4-6.[address] [facility] Comment on above: Performed By: #### C BC #### [place] [facility] [address] [place] [address] Dr. Sunil Conner Neutrophils/100 WBC (Bld) 67.1 % Normal 43.0-75.[address] [facility] Comment on above: Performed By: #### C BC #### [place] [facility] [address] [place] [address] Dr. Sunil Conner Platelet mean volume (Bld) [Entitic vol] 10.3 fL Normal 9.5-13.[address] [facility] Comment on above: Performed By: #### C BC #### [place] [facility] [address] [place] [address] Dr. Sunil Conner PLT 255 103/ul Normal 150-[address] [facility] Comment on above: Performed By: #### C BC #### [place] [facility] [address] [place] [address] Dr. Sunil Conner RBC 3.84 106/ul Critically low 4.20-5.40 [facility] Comment on above: Performed By: #### C BC #### [place] [facility] [address] [place] [address] Dr. Sunil oCnner WBC 9.5 103/ul Normal 4.0-11.[address] [facility] Comment on above: Performed By: #### C BC #### [facility] [address] [place] [address] Dr. Sunil Conner GLUCOSE - 1HRon 04-28-2021 Glucose [Mass/Vol] 171 mg/dL Critically high 74-106 [facility] Comment on above: Performed By: #### H IV12 #### [place] [facility] [address] [place] [address] Andriy Sarita VAGINITIS/VAGINOSIS DNA PROB Douglas 04-21-2021 Kena species Positive Abnormal Negative [facility] Comment on above: Performed By: #### V AGINT #### [facility] [address] [address] [address] Sunil Conner Gardnerella vaginalis Negative Normal Negative [facility] Comment on above: Performed By: #### V AGINT #### [place] [facility] [address] [address] [address] Sunil Conner Trichomonas vaginalis Negative Normal Negative [facility] Comment on above: Performed By: #### V AGINT #### [place] [facility] [address] [address] [address] Sunil Conner US PREG ANATOMY SINGLEon [...] weeks 3 days EFW:12 ounces, 47%; FL/AC: 0.353003 FL/BPD: 0.763952 HC/AC: 1.873906 GESTATIONAL AGE: Age by EDC: 20 weeks 4 days FAHEEM by EDC: 08/04/2021 Age by current US: 20 weeks 2 days FAHEEM by current US: 08/06/2021 IMPRESSION: Normal anatomy scan *Reference: [employer] Practice Guideline for the performance of Obstetric Ultrasound Examinations, March 25, 2007. Electronically authenticated by: NADIA DOOLEY Date: 2021-03-21 16:[address] [facility] PAP ACOG PANEL 3: 21 to 29on 02-21-2021 . . Normal [facility] [place] [facility] Comment on above: Result Comment: Perf ormed at: WB Performed By: #### H IV12 #### [place] [facility] [address] [place] [address] Andriy Stein Age Gdln ACOG Testing 21-[address] [facility] Comment on above: Performed By: #### H IV12 #### [place] [facility] [address] [address] Andriy Stein Chlamydia, Nuc. Acid Amp Negative Normal Negative [facility] Comment on above: Result Comment: Perf ormed at: =G Performed By: #### H IV12 #### [place] [facility] [address] [place] [address] Andriy Stein DIAGNOSIS: Comment Abnormal [facility] Comment on above: Result Comment: EPIT HELIAL CELL ABNORMALITY. LOW-GRADE SQUAMOUS INTRAEPITHELIAL LESION (LSIL); MILD DYSPLASIA. Performed at: WB Performed By: #### H IV12 #### [place] [facility] [address] [place] [address] Andriy Stein Electronically signed by: Comment Normal [facility] Comment on above: Result Comment: Mayela العلي MD, Pathologist Performed at: WB Performed By: #### H IV12 #### [place] [facility] [address] [place] [address] Andriy Stein Gonococcus, Nuc. Acid Amp Negative Normal Negative [facility] Comment on above: Result Comment: Perf ormed at: =G Performed By: #### H IV12 #### [place] [facility] [address] [place] [address] Andriy Stein Methodology: Comment Normal [facility] Comment on above: Result Comment: This liquid based ThinPrep(R) pap test was screened with the use of an image guided system. Performed at: WB Performed By: #### H IV12 #### [place] [facility] [address] [place] [address] Andriy Stein Note: Comment Normal [facility] Comment on above: Result Comment: The [...] WB Performed By: #### H IV12 #### [place] [facility] [address] [address] Andriy Stein Pathologist Provided ICD10 Comment Normal [facility] Comment on above: Result Comment: [id number] Performed at: WB Performed By: #### H IV12 #### [place] [facility] [address] [address] Andriy Stein Performed by: Comment Normal [facility] Comment on above: Result Comment: Funmi Partida, Icer Hand (ASCP) Performed at: WB Performed By: #### H IV12 #### [place] [facility] [address] [place] [address] Andriy Stein Recommendation: Comment Abnormal [facility] Comment on above: Result Comment: Sugg est follow up as clinically appropriate. Performed at: WB Performed By: #### H IV12 #### [place] [facility] [address] [address] Andriy Stein Reflex Criteria: Comment Normal [facility] Comment on above: Result Comment: The HPV DNA reflex criteria were not met with this specimen result therefore, no HPV testing was performed. . Performed at: WB Performed By: #### H IV12 #### [facility] [address] [address] Andriy Stein Specimen adequacy: Comment Normal [facility] Comment on above: Result Comment: Sati sfactory for evaluation. Endocervical and/or squamous metaplastic cells (endocervical component) are present. Performed at: WB Performed By: #### H IV12 #### [place] [facility] [address] [id number] Andriylogan Stein AFP MATERNAL FOR SPINA BIFID Aon 02-19-2021 AFP MoM 1.[address] [facility] Comment on above: Performed By: #### H IV12 #### [place] [facility] [address] [address] Andriy Sarita AFP Value 35.0 ng/mL Normal [facility] Comment on above: Performed By: #### H IV12 #### [place] [facility] [address] [address] Andriy Stein AFP, Serum for Spina Bifida Report Normal [facility] Comment on above: Performed By: #### H IV12 #### [place] [facility] [address] [place] [address] Andriy Stein Comment Comment Normal [facility] Comment on above: Result Comment: Jassi Perez, Ph.D., [facility] Director . References: Available Upon Request. . Multiples Of Median Cutoffs For AFP Elevations Beebe 2.5 Black 2.8 IDD 2.0 Twins 4.5 Abbreviation Definitions IDD - Insulin Dep Diabetes OSBR - Open Spina Bifida Risk . For further inquiries contact [employer] at [phone]. Performed By: #### H IV12 #### [place] [facility] [address] [place] [address] Andriy Stein Gest Age Collection Date 16.0 weeks [address] [facility] Comment on above: Performed By: #### H IV12 #### [place] [facility] [address] [place] [address] Andriy Stein Gestat, Age Based on Ultrasound Normal [facility] Comment on above: Result Comment: 16.0 on 02/17/2021 Recalculations are not recommended when gestational dating by LMP and ultrasound are within 10 days. Performed By: #### H IV12 #### [place] [facility] [address] [place] [address] Andriy Stein Insulin Dep Diabetes No Normal [facility] [place] [facility] Comment on above: Performed By: #### H IV12 #### [place] [facility] [address] [place] [address] Andriy Stein Interpretation Comment Normal [facility] Comment on above: Result Comment: Inte rpretation: [...] Customer Services to discuss available options. The [employer] recommends amniocentesis be offered to women age 35 and older. Performed By: #### H IV12 #### [place] [facility] [address] [id number] Andriy Stein [age] Normal [facility] Comment on above: Performed By: #### H IV12 #### [place] [facility] [address] [address] Andriy Stein Multiple Gestation No Normal [facility] Comment on above: Performed By: #### H IV12 #### [place] [facility] [address] [address] Andriy Stein OSBR Risk 1 [place] 7603 Normal [facility] Comment on above: Performed By: #### H IV12 #### [place] [facility] [address] [address] Andriy Stein PDF . Normal [facility] Comment on above: Performed By: #### H IV12 #### [place] [facility] [address] [address] Andriy Stein Race Normal [facility] Comment on above: Performed By: #### H IV12 #### [place] [facility] [address] [address] Andriy Stein Test Results: Negative Normal [facility] Comment on above: Performed By: #### H IV12 #### [place] [facility] [address] [address] Andriy Stein HEMOGLOBINOPATHY FRACTIONATI ON CASCADEon 02-07-2021 HGB A 97.3 % Normal 96.4-98.[address] [facility] Comment on above: Performed By: #### H GBCAS ####[facility] [facility] [address] [address]Gerlogan Stein HGB A2 2.7 % Normal 1.8-3.[address] [facility] Comment on above: Performed By: #### H GBCAS ####[facility] [address] Sarita HGB F 0.0 % Normal 0.0-2.0 [facility] [place] [facility] Comment on above: Performed By: #### H GBCAS ####[facility] [address] Sarita HGB S 0.0 % Normal 0.[address] [facility] Comment on above: Performed By: #### H GBCAS ####[facility] [address] Sarita Interpretation: Comment Normal [facility] Comment on above: Result Comment: Norm al hemoglobin present; no hemoglobin variant or thalassemia observed. Performed By: #### H GBCAS ####[facility] [id number] [place] VARICELLA IGG ABon Varicella Zoster IgG 406 index Normal Immune >165 [facility] [place] [facility] Comment on above: Result Comment: Nega tive <135 Equivocal 135 - 165 Positive >165 A positive result generally indicates exposure to the pathogen or administration of specific immunoglobulins, but it is not indication of active infection or stage of disease. Performed By: #### V ARCEL ####[facility] [address] [place] [address] Sar[place] HEP B SURFACE ANTIGEN SCREEN on 02-06-2021 HBsAg Screen Negative Normal Negative [facility] Comment on above: Performed By: #### H BSANS #### [place] [facility] [address] [place] HEPATITIS C ANTIBODYon 02-06 Hep C Virus Ab <0.1 Normal 0.0-0.9 [facility] Comment on above: Result Comment: Nega tive: < 0.8 Indeterminate: 0.8 - 0.9 Positive: > 0.9 . The CDC recommends that a positive HCV antibody result be followed up with a HCV Nucleic Acid Amplification test (979324). Performed By: #### H CV ####[facility] [address] [place], [place] [address] HIV 1 AND 2 WITH REFLEXon HIV Screen 4th Generation wRfx Non-Reactive Normal Non Reactive [facility] Comment on above: Performed By: #### H IV12 #### [place] [facility] [address] [place] [address] Andriy Stein RPR QUANTon 02-06-2021 Rapid Plasma Reagin, Quant Non-Reactive Normal NonRea<1:[address] [facility] Comment on above: Performed By: #### H IV12 #### [place] [facility] [address] [place] [address] Andriy Stein RUBELLA AB IGGon 02-06-2021 Rubella Antibodies, IgG 1.72 index Normal Immune >0.[address] [facility] Comment on above: Result Comment: Non- immune <0.90 Equivocal 0.90 - 0.99 Immune >0.99 Performed By: #### H IV12 #### [place] [facility] [address] [place] [address] Andriy Stein CBC AUTO DIFFon 02-05-2021 BASO # 0.0 103/ul Normal 0.0-0.[address] [facility] Comment on above: Performed By: #### H BSANS #### [place] [facility] [address] [place], [place] [id number] Andriy Sarita Basophils/100 WBC (Bld) 0.3 % Normal 0.2-2.0 [facility] Comment on above: Performed By: #### H BSANS #### [place] [facility] [address] [place], [place] [id number] Andriylogan Stein EO # 0.2 103/ul Normal 0.0-0.[address] [facility] Comment on above: Performed By: #### H BSANS #### [place] [facility] [address] [place] [address] Andriy Sarita Eosinophils/100 WBC (Bld) 1.7 % Normal 0.9-7.[address] [facility] Comment on above: Performed By: #### H BSANS #### [place] [facility] [address] [place] [address] Andriy Sarita Erythrocyte distribution width (RBC) [Ratio] 14.0 % Normal 11.0-15.[address] [facility] Comment on above: Performed By: #### H BSANS #### [place] [facility] [address] [place] [address] Andriylogan Stein Hematocrit (Bld) [Volume fraction] 34.3 % Critically low 36.0-48.[address] [facility] Comment on above: Performed By: #### H BSANS #### [place] [facility] [address] [place] [address] Andriy Sarita Hemoglobin (Bld) [Mass/Vol] 11.0 g/dL Critically low 12.0-16.[address] [facility] Comment on above: Performed By: #### H BSANS #### [place] [facility] [address] [place] [address] Andriy Sarita IG # 0.02 10e3/ul Normal 0.00-0.[address] [facility] Comment on above: Performed By: #### H BSANS #### [place] [facility] [address] [place] [address] Andriy Sarita IG % 0.2 % Normal 0.0-0.[address] [facility] Comment on above: Performed By: #### H BSANS #### [place] [facility] [address] [place] [address] Andriylogan Stein LYMPH # 3.4 103/ul Normal 1.2-3.[address] [facility] Comment on above: Performed By: #### H BSANS #### [place] [facility] [address] [place] [address] Andriy Stein Lymphocytes/100 WBC (Bld) 38.7 % Normal 20.5-60.[address] [facility] Comment on above: Performed By: #### H BSANS #### [place] [facility] [address] [place] [address] Andriy Stein MANUAL DIFF REQ NO Normal [facility] Comment on above: Performed By: #### H BSANS #### [place] [facility] [address] [place] [address] Andriy Stein MCH (RBC) [Entitic mass] 27.2 pg Normal 26.7-34.[address] [facility] Comment on above: Performed By: #### H BSANS #### [place] [facility] [address] [place] [address] Andriylogan Stein MCHC (RBC) [Mass/Vol] 32.1 g/dL Normal 29.9-35.[address] [facility] Comment on above: Performed By: #### H BSANS #### [place] [facility] [address] [place] [address] Andriy Sarita MCV (RBC) [Entitic vol] 84.9 fL Normal 81.0-99.0 [facility] Comment on above: Performed By: #### H BSANS #### [place] [facility] [address] [place] [address] Andriy Sarita MONO # 0.7 103/ul Normal 0.3-0.[address] [facility] Comment on above: Performed By: #### H BSANS #### [place] [facility] [address] [place] [address] Andriy Sarita Monocytes/100 WBC (Bld) 8.3 % Normal 1.7-12.0 [facility] Comment on above: Performed By: #### H BSANS #### [place] [facility] [address] [place] [address] Andriy Sarita NEUT # 4.4 103/ul Normal 1.4-6.[address] [facility] Comment on above: Performed By: #### H BSANS #### [place] [facility] [address] [place] [address] Adnriy Sarita Neutrophils/100 WBC (Bld) 50.8 % Normal 43.0-75.[address] [facility] Comment on above: Performed By: #### H BSANS #### [place] [facility] [address] [place] [address] Andriy Sarita Platelet mean volume (Bld) [Entitic vol] 9.8 fL Normal 9.5-13.[address] [facility] Comment on above: Performed By: #### H BSANS #### [place] [facility] [address] [place] [address] Andriy Sarita PLT 248 103/ul Normal 150-450 [facility] [place] [facility] Comment on above: Performed By: #### H BSANS #### [place] [facility] [address] [place], [place] [address] Andriy Sarita RBC 4.04 106/ul Critically low 4.20-5.40 [facility] Comment on above: Performed By: #### H DANIELNS #### [place] [facility] [address] [place] [id number] Andriy Sarita WBC 8.7 103/ul Normal 4.0-11.0 [facility] [place] [facility] Comment on above: Performed By: #### H ANGELA #### [place] [facility] [address] [place] [id number] Andriy Sarita GLYCOHEMOGLOBIN A1Con 2020 ADA RECOMMENDATION ADA THERAPEUTIC TARGET 6.0 - 7.0 ACTION SUGGESTED > 7.[address] [facility] Comment on above: Performed By: #### A 1C ####[facility] [facility] [address] [id number] Sarita Glucose [Mass/Vol] 111 mg/dL Normal [facility] Comment on above: Performed By: #### A 1C ####[facility] [facility] [address] [place] [id number] Sarita HbA1c (Bld) [Mass fraction] 5.5 % Normal <=6.[address] [facility] Comment on above: Performed By: #### A 1C ####[facility] [address] [place] [id number] Sarita GTT 3 HR PREGon 02-05-2021 Glucose [Mass/Vol] 79 mg/dL Normal 74-106 [facility] Comment on above: Performed By: #### H BSADOM #### [place] [facility] [address] [place] [address] Andriy Sarita Glucose [Mass/Vol] 117 mg/dL Normal [facility] Comment on above: Performed By: #### H BSADOM #### [place] [facility] [address] [place] [address] Andriy Sarita Glucose [Mass/Vol] 93 mg/dL Normal [facility] Comment on above: Performed By: #### H ANGELA #### [place] [facility] [address] [place], [place] [address] Andriy Sarita Glucose [Mass/Vol] 46 mg/dL Critically low [facility] [place] [facility] Comment on above: Performed By: #### H BSANS #### [place] [facility] [address] [place] [id number] Andriy Sarita TYPE AND SCREENon 02-05-2021 TYPE AND SCREEN Antibody Screen NEGATIVE Blood Bank Notes completed by [email or web address] ABO Rh Typing A Rh Positive Blood Bank Notes completed by yudelka Rosenberg [facility] Comment on above: Performed By: #### T NS #### [place] [facility] [address] [place] [id number] Andriy Sarita CULTURE URINEon 01-28-2021 CULTURE URINE Culture Observations: MODERATE GROWTH OF MIXED GENITAL HUBER. NO POTENTIAL PATHOGENS SEEN. Normal [facility] Comment on above: Performed By: #### U RCX ####[facility] [address] [place] [address]Ger[address] Sarita UA RANDOM W/MICROSCOPICon BACTERIA SMALL Abnormal NONE SEEN [facility] Comment on above: Performed By: #### H BSANS #### [place] [facility] [address] [place] [address] Andriy Sarita Bilirubin Ql (U) Negative Normal NEGATIVE [facility] Comment on above: Performed By: #### H BSANS #### [place] [facility] [address] [place] [address] Andriy Sarita CAST NONE SEEN Normal NONE SEEN [facility] Comment on above: Performed By: #### H BSANS #### [place] [facility] [address] [place] [address] Andriy Sarita Clarity (U) CLEAR Normal CLEAR [facility] Comment on above: Performed By: #### H BSANS #### [place] [facility] [address] [place] [address] Andriy Sarita Color (U) YELLOW Normal YELLOW [facility] [place] [facility] Comment on above: Performed By: #### H BSANS #### [place] [facility] [address] [place] [address] Andriy Sarita Crystals LM Nom (Urine sed) NONE SEEN Normal NONE SEEN [facility] Comment on above: Performed By: #### H BSANS #### [place] [facility] [address] [place] [address] Andriy Sarita Epithelial cells LM Ql (Urine sed) FEW Abnormal NONE SEEN /RARE [facility] [place] [facility] Comment on above: Performed By: #### H BSANS #### [place] [facility] [address] [place] [address] Andriy Sarita Glucose Ql (U) Negative Normal NEGATIVE [facility] Comment on above: Performed By: #### H BSANS #### [place] [facility] [address] [place] [address] Andriy Sarita Hemoglobin Ql (U) Negative Normal NEGATIVE [facility] Comment on above: Performed By: #### H BSANS #### [place] [facility] [address] [place] [address] Andriy Sarita Ketones Ql (U) TRACE Abnormal NEGATIVE [facility] Comment on above: Performed By: #### H BSANS #### [place] [facility] [address] [place] [address] Andriy Sarita LEUKOCYTES Negative Normal NEGATIVE [facility] [place] [facility] Comment on above: Performed By: #### H BSANS #### [place] [facility] [address] [place] [address] Andriy Sarita MUCOUS SMALL Abnormal NONE SEEN [facility] [place] [facility] Comment on above: Performed By: #### H BSANS #### [place] [facility] [address] [place] [address] Andriy Sarita Nitrite Ql (U) Negative Normal NEGATIVE [facility] Comment on above: Performed By: #### H BSANS #### [place] [facility] [address] [place] [address] Andriy Sarita pH (U) 7.0 [pH] Normal 5-9 [facility] [place] [facility] Comment on above: Performed By: #### H BSANS #### [place] [facility] [address] [place] [address] Andriy Sarita RBC 0-2 Normal 0-2 [facility] [place] [facility] Comment on above: Performed By: #### H BSANS #### [place] [facility] [address] [place] [address] Andriy Sarita SPEC GRAVITY 1.020 Normal 1.005-<=1.[address] [facility] Comment on above: Performed By: #### H BSADOM #### [place] [facility] [address] [place] [address] Andriy Stein UA PROTEIN Negative Normal NEGATIVE/ TRACE [facility] [place] [facility] Comment on above: Performed By: #### H BSANS #### [place] [facility] [address] [place] [address] Andriy Stein Urobilinogen Qn (U) 0.2 {Juanito'U}/dL Normal 0.2 - 1. [address] [facility] Comment on above: Performed By: #### H BSADOM #### [place] [facility] [address] [place] [address] Andriylogan Stein WBC NONE SEEN Normal NONE SEEN [facility] [place] [facility] Comment on above: Performed By: #### H ANGELA #### [place] [facility] [address] [place] [address] Andriy Stein BUNon 01-26-2021 Urea nitrogen [Mass/Vol] 5.0 mg/dL Critically low 7.0-17.[address] [facility] Comment on above: Performed By: #### T SH, LDH, BUN, URIC, ALT, AST ####[facility] [address] [place] [id number] Stein CBC AUTO DIFFon 01-26-2021 BASO # 0.0 103/ul Normal 0.0-0.[address] [facility] Comment on above: Performed By: #### C BC #### [place] [facility] [address] [place] [address] Andriy Stein Basophils/100 WBC (Bld) 0.4 % Normal 0.2-2.0 [facility] Comment on above: Performed By: #### C BC #### [place] [facility] [address] [place] [address] Andriy Sarita EO # 0.1 103/ul Normal 0.0-0.[address] [facility] Comment on above: Performed By: #### C BC #### [place] [facility] [address] [place] [address] Andriy Stein Eosinophils/100 WBC (Bld) 1.1 % Normal 0.9-7.[address] [facility] Comment on above: Performed By: #### C BC #### [place] [facility] [address] [place], [place] [id number] Andriy Stein Erythrocyte distribution width (RBC) [Ratio] 14.6 % Normal 11.0-15.[address] [facility] Comment on above: Performed By: #### C BC #### [place] [facility] [address] [place] [address] Andriy Stein Hematocrit (Bld) [Volume fraction] 34.7 % Critically low 36.0-48.[address] [facility] Comment on above: Performed By: #### C BC #### [place] [facility] [address] [place] [address] Andriy Stein Hemoglobin (Bld) [Mass/Vol] 11.1 g/dL Critically low 12.0-16.[address] [facility] Comment on above: Performed By: #### C BC #### [place] [facility] [address] [place] [address] Andriylogan Stein IG # 0.04 10e3/ul Critically high 0.00-0.03 [facility] Comment on above: Performed By: #### C BC #### [place] [facility] [address] [place] [address] Andriylogan Stein IG % 0.5 % Normal 0.0-0.5 [facility] [place] [facility] Comment on above: Performed By: #### C BC #### [place] [facility] [address] [place] [address] Andriylogan Rodgersen LYMPH # 2.1 103/ul Normal 1.2-3.8 [facility] [place] [facility] Comment on above: Performed By: #### C BC #### [place] [facility] [address] [place], [place] [id number] Andriy Stein Lymphocytes/100 WBC (Bld) 25.5 % Normal 20.5-60.[address] [facility] Comment on above: Performed By: #### C BC #### [place] [facility] [address] [place] [address] Andriy Stein MANUAL DIFF REQ NO Normal [facility] Comment on above: Performed By: #### C BC #### [place] [facility] [address] [place] [id number] Andriy Stein MCH (RBC) [Entitic mass] 27.2 pg Normal 26.7-34.[address] [facility] Comment on above: Performed By: #### C BC #### [place] [facility] [address] [place] [id number] Andriylogan Stein MCHC (RBC) [Mass/Vol] 32.0 g/dL Normal 29.9-35.[address] [facility] Comment on above: Performed By: #### C BC #### [place] [facility] [address] [place] [id number] Andriy Stein MCV (RBC) [Entitic vol] 85.0 fL Normal 81.0-99.0 [facility] Comment on above: Performed By: #### C BC #### [place] [facility] [address] [place] [address] Andriy Rodgersen MONO # 0.6 103/ul Normal 0.3-0.[address] [facility] Comment on above: Performed By: #### C BC #### [place] [facility] [address] [place], [place] [address] Andriy Stein Monocytes/100 WBC (Bld) 7.1 % Normal 1.7-12.0 [facility] Comment on above: Performed By: #### C BC #### [place] [facility] [address] [place], [place] [phone] Andriylogan Rodgersen NEUT # 5.3 103/ul Normal 1.4-6.[address] [facility] Comment on above: Performed By: #### C BC #### [place] [facility] [address] [place], [place] [phone] Andriy Sarita Neutrophils/100 WBC (Bld) 65.4 % Normal 43.0-75.[address] [facility] Comment on above: Performed By: #### C BC #### [place] [facility] [address] [place], [place] [phone] Andriy Sarita Platelet mean volume (Bld) [Entitic vol] 9.5 fL Normal 9.5-13.[address] [facility] Comment on above: Performed By: #### C BC #### [place] [facility] [address] [place], [place] [address] Andriy Sarita PLT 258 103/ul Normal 150-[address] [facility] Comment on above: Performed By: #### C BC #### [place] [facility] [address] [place], [place] [address] Andriy Sarita RBC 4.08 106/ul Critically low 4.20-5.40 [facility] Comment on above: Performed By: #### C BC #### [place] [facility] [address] [place], [place] [address] Andriy Sarita WBC 8.1 103/ul Normal 4.0-11.[address] [facility] Comment on above: Performed By: #### C BC #### [place] [facility] [address] [place], [place] [address] Andriy Sarita CREATININE CLEARon CREA CLEARANCE 69.46 ml/min Critically low 75.00-115.00 [facility] Comment on above: Performed By: #### H IV12 #### [place] [facility] [address] [place] [address] Andriylogan Stein CREA, 24 HR UR 579.12 mg/24 hr Critically low 800.00-1 ,[address] .[address] [facility] Comment on above: Performed By: #### H IV12 #### [place] [facility] [address] [place], [place] [address] Andriy Sarita Creatinine [Mass/Vol] 0.53 mg/dL Normal 0.52-1.[address] [facility] Comment on above: Performed By: #### H IV12 #### [place] [facility] [address] [place], [place] [address] Andriy Sarita URINE CREAT 30.48 mg/dL Normal 20.00-300.00 [facility] Comment on above: Performed By: #### H IV12 #### [place] [facility] [address] [place] [address] Andriy Sarita GLUCOSE - 1HRon 01-26-2021 Glucose [Mass/Vol] 150 mg/dL Critically high 74-106 [facility] Comment on above: Performed By: #### G LU1HR ####[facility] [address] [place] [address]Andriy Stein LDHon 01-26-2021 LDH 125 U/L Normal 122-[address] [facility] Comment on above: Performed By: #### T SH, LDH, BUN, URIC, ALT, AST ####[facility] [address] [place] PROTEIN 24HR URINEon 021 T PROT, 24 HR UR 32.3 mg/24 hr Critically low 42.0-225.0 [facility] Comment on above: Performed By: #### P ROT24U ####[facility] Ky[address] [place] UR PROT 1.7 mg/dL Normal <=12.[address] [facility] Comment on above: Performed By: #### P ROT24U ####[facility] Mr[address]ji[address] [place] UR TOT VOL 1900 ml/24 HR Normal [facility] Comment on above: Performed By: #### P ROT24U ####[facility] T[address]vr[address] [place] Performed By: #### H IV12 #### [place] [facility] [address] SGOTon 01-26-2021 AST [Catalytic activity/Vol] 17 U/L Normal 14-[address] [facility] Comment on above: Performed By: #### T SH, LDH, BUN, URIC, ALT, AST ####[facility] [address] [place] [address]Ger[address] Sarita SGPTon 01-26-2021 ALT [Catalytic activity/Vol] 16 U/L Normal 9-[address] [facility] Comment on above: Performed By: #### T SH, LDH, BUN, URIC, ALT, AST ####[facility] U[address] [place] TSHon 01-26-2021 TSH 0.220 uIU/mL Critically low 0.470-4.680 [facility] Comment on above: Performed By: #### T SH, LDH, BUN, URIC, ALT, AST ####[facility] Sw[address] [place] TSH RANGE SEE BELOW Normal [facility] [place] [facility] Comment on above: Result Comment: <0.3 4 UIU/ml HYPERTHYROID 0.34-5.60 UIU/ml EUTHYROID >5.60 UIU/ml HYPOTHYROID Performed By: #### T SH, LDH, BUN, URIC, ALT, AST ####[facility] [address] [place] URIC ACID SERUMon 01-26-2021 Urate [Mass/Vol] 3.6 mg/dL Normal 2.5-6.2 [facility] Comment on above: Performed By: #### T SH, LDH, BUN, URIC, ALT, AST ####[facility] X[address] [place] PREG TVon 01-24-2021 US PREG [...] ANGELO BLANKENSHIP Date: 2021-01-24 10:12 Normal [facility] [place] [facility] ABO AND RH TYPEon 01-19-2021 ABO and Rh group Nom (Bld) ABO Rh Typing A Rh Positive Normal [facility] [place] [facility] Comment on above: Performed By: #### A BORH ####[facility] [address] [place] PREG QUANT HCGon 01-19-2021 HCG QUANT 68082 mIU/mL Normal [facility] [place] [facility] Comment on above: Result Comment: Prev iously reported as: 3 On 01/19/2021 11:21 By CV2 Performed By: #### H IV12 #### [place] [facility] [address] [place], [place] [address] Andriy Stein HCG RANGE SEE BELOW Normal [facility] [place] [facility] Comment on above: Result Comment: 5-50 0-1 WEEK 40-300 1-2 WEEKS 100-1,000 2-3 WEEKS 500-6,000 3-4 WEEKS 5,000-200,000 1-2 MONTHS 10,000-100,000 2-3 MONTHS 3,000-50,000 2ND TRIMESTER 1,000-50,000 3RD TRIMESTER Performed By: #### H IV12 #### [place] [facility] [address] [place], [place] [address] Andriy Stein Vital Signs Date Time Vital Sign Value Performing Clinician Facility 03-24-2025 11:04-0400 Body mass index (BMI) [Ratio] 33.77 kg/m2 Jem Ambrosio NP Work Phone: [facility] 03-24-2025 11:04-0400 Body weight 89.25 kg Jem Ambrosio [employer] Work Phone: [facility] 03-24-2025 11:04-0400 Diastolic blood pressure 80 mm[Hg] Jem Ambrosio TU[employer] BUILDER Work Phone: [facility] 03-24-2025 11:04-0400 Systolic blood pressure 118 mm[Hg] Jem Ambrosio TU[employer] BU[employer]DER Work Phone: [facility] 03-10-2025 13:25-0400 Body mass index (BMI) [Ratio] 33.44 kg/m2 Deborah RUBIN Work Phone: [facility] 03-10-2025 13:25-0400 Body weight 88.36 kg Deborah RUBIN Work Phone: [facility] 03-10-2025 13:25-0400 Diastolic blood pressure 74 mm[Hg] Deborah RUBIN Work Phone: [facility] 03-10-2025 13:25-0400 Systolic blood pressure 136 mm[Hg] Deborah [place] PA Work Phone: [facility] 02-16-2025 15:09-0400 Body mass index (BMI) [Ratio] 33.3 kg/m2 Deborah Aquiles PA Work Phone: [facility] 02-16-2025 15:09-0400 Body weight 88 kg Deborah [place] PA Work Phone: [facility] 02-16-2025 15:09-0400 Diastolic blood pressure 72 mm[Hg] Deborah [place] PA Work Phone: [facility] 02-16-2025 15:09-0400 Systolic blood pressure 128 mm[Hg] Deborah [place] PA Work Phone: [facility] 02-02-2025 15:03-0400 Body mass index (BMI) [Ratio] 33 kg/m2 Scooby Jenny DO Work Phone: [facility] 02-02-2025 15:03-0400 Body weight 87.2 kg Scooby Jenny DO Work Phone: [facility] 02-02-2025 15:03-0400 Diastolic blood pressure 78 mm[Hg] Scooby Jenny DO Work Phone: [facility] 02-02-2025 15:03-0400 Systolic blood pressure 136 mm[Hg] Scooby Jenny DO Work Phone: [facility] 01-01-2025 13:37-0400 Body mass index (BMI) [Ratio] 32.79 kg/m2 Deborah [place] PA Work Phone: [facility] 01-01-2025 13:37-0400 Body weight 86.64 kg Deborah Aquiles PA Work Phone: [facility] 01-01-2025 13:37-0400 Diastolic blood pressure 72 mm[Hg] Deborah [place] PA Work Phone: [facility] 01-01-2025 13:37-0400 Systolic blood pressure 124 mm[Hg] Deborah [place] PA Work Phone: [facility] 12-04-2024 10:26-0400 Body height 162.6 cm Scooby Jenny DO Work Phone: [facility] 12-04-2024 10:25-0400 Body mass index (BMI) [Ratio] 32.27 kg/m2 Scooby Jenny DO Work Phone: [facility] 12-04-2024 10:25-0400 Body weight 85.28 kg Scooby Jenny DO Work Phone: [facility] 12-04-2024 10:25-0400 Diastolic blood pressure 72 mm[Hg] Scooby Jenny DO Work Phone: [facility] 12-04-2024 10:25-0400 Systolic blood pressure 118 mm[Hg] Scooby Jenny DO Work Phone: [facility] 11-24-2024 15:59-0400 Body mass index (BMI) [Ratio] 34.57 kg/m2 Oma Davis RN Work Phone: [facility] 11-24-2024 15:59-0400 Body weight 85.73 kg Oma Davis RN Work Phone: [facility] 11-13-2024 10:57-0400 Body weight 87.09 kg Scooby Jenny DO Work Phone: [facility] 11-13-2024 10:57-0400 Diastolic blood pressure 70 mm[Hg] Scooby Jenny DO Work Phone: [facility] 11-13-2024 10:57-0400 Systolic blood pressure 128 mm[Hg] Scooby Jenny DO Work Phone: [facility] 10-16-2024 14:37-0400 Body weight 85.84 kg Noms Nurse [facility] 10-16-2024 14:37-0400 Diastolic blood pressure 82 mm[Hg] Noms Nurse [facility] 10-16-2024 14:37-0400 Systolic blood pressure 124 mm[Hg] Noms Nurse [facility] 07-09-2021 13:35-0500 Body temperature 96.4 [degF] Renita Canseco Other [facility] Other 07-09-2021 13:35-0500 SaO2% (BldA) [Mass fraction] 98 % Renita Canseco Other [facility] Other 02-19-2021 04:06-0400 Body weight 83.0088 kg RENAY OTOOLE [facility] Comment on above: Performed By: #### HIV12 #### [facility] [address] [address] Andriy Rodgersen Encounters Encounter Date Encounter Type Care Provider Facility Start: 03-31-2025 End: 03-31-2025 Clinisync Result Encounter Jem Ambrosio TUBE BUILDER Work Phone: [facility] Unsolicited Start: 03-31-2025 End: 03-31-2025 Clinisync Result Encounter Jem Hebert TUBE BUILDER Work Phone: [facility] Unsolicited Start: 03-24-2025 End: 03-24-2025 Bamboo flowsheet Jem Hebert TUBE BUILDER Work Phone: [facility] Start: 03-24-2025 End: 03-24-2025 Bamboo flowsheet Jem Hebert TUBE BUILDER Work Phone: [facility] Start: 03-24-2025 End: 03-24-2025 Office outpatient visit 15 minutes Jem Hebert TUBE BUILDER Work Phone: [facility] Comment on above: 34 weeks gestation o f ([facility]); Third trimester ([facility]); Gestational diabetes mellitus (GDM) in third trimester, gestational diabetes method of control unspecified ([facility]) Start: 03-24-2025 End: 03-24-2025 ambulatory JEM HEBERT Not Available Start: 03-20-2025 End: 03-20-2025 Telephone encounter Amanda STAPLES [facility] at [facility] Start: 03-10-2025 End: 03-10-2025 Bamboo flowsheet Deborah RUBIN Work Phone: [facility] Start: 03-10-2025 End: 03-10-2025 Bamboo flowsheet Deborah RUBIN Work Phone: [facility] Start: 03-10-2025 End: 03-10-2025 Office outpatient visit 15 minutes Deborah RUBIN Work Phone: [facility] Comment on above: 32 weeks gestation o f ([facility]); Third trimester ([facility]) Start: 03-10-2025 End: 03-10-2025 ambulatory DEBORAH RODRIGUEZ Not Available Start: 02-25-2025 End: 02-25-2025 ambulatory DEBORAH RODRIGUEZ Not Available Start: 02-16-2025 End: 02-16-2025 ambulatory DEBORAH RODRIGUEZ Not Available Start: 02-16-2025 End: 02-16-2025 Office outpatient visit 15 minutes Deborah RUBIN Work Phone: [facility] Comment on above: Size of fetus incons istent with dates in second trimester ([facility]) (Primary Dx); 28 weeks gestation of ([facility]); Third trimester ([facility]) Start: 02-16-2025 End: 02-16-2025 Bamboo flowsheet [...] Comment on above: Second trimester pre gnancy ([facility]); 26 weeks gestation of ([facility]); Diabetes mellitus screening Start: 02-02-2025 End: [...] Comment on above: Second trimester pre gnancy ([facility]); 22 weeks gestation of ([facility]) Start: 01-01-2025 End: 01-01-2025 ambulatory DEBORAH [...] Rowena STAPLES Work Phone: [facility]- [facility] at [facility] Start: 12-04-2024 End: 12-04-2024 ambulatory SCOOBYArcelia KRUEGERO Not Available Start: 12-04-2024 End: 12-04-2024 Patient encounter procedure Scooby Jenny DO Work Phone: [facility] Start: 12-04-2024 End: 12-04-2024 flow sheet Scooby Jenny DO Work Phone: [facility] Comment on above: Second trimester pre gnancy ([facility]); 18 weeks gestation of ([facility]); Well woman exam with routine gynecological exam; Screening, , for anatomic survey ([facility]); Screen for STD (sexually transmitted disease); Need for maternal serum alpha-protein (MSAFP) screening ([facility]) Start: 11-24-2024 End: 11-24-2024 ambulatory Oma Davis RN Work Phone: [facility]- Medicine at [facility] Comment on above: Gestational diabetes mellitus [...] ambulatory NO PCP NO PCP [facility] Start: 12-19-2023 End: 12-20-2023 Emergency department patient visit RENITA HICKMAN [facility] Start: 12-19-2023 End: 12-19-2023 Emergency department patient visit NO PCP NO PCP [facility] Start: 03-01-2022 End: 03-01-2022 ambulatory Kym Masterson Facility:[facility] Start: 11-08-2021 End: 11-08-[address] SCOOBY ALVARADO Facility:[facility] Start: 08-01-2021 End: 08-01-[address] SCOOBY ALVARADO Facility:[facility] Start: 07-30-2021 End: 07-31-2021 Evaluation and management of inpatient DR SCOOBY ALVARADO Facility:[facility] Start: 07-13-2021 End: 07-13-[address] SCOOBY ALVARADO Facility:[facility] Start: 07-11-2021 End: 07-12-[address] NADIA DOOLEY Facility:[facility] Start: 07-09-2021 End: 07-09-2021 ambulatory Renita Canseco Other [facility] Other Start: 07-09-2021 Office outpatient vi sit [...] 03-31-2025 OB BPP W NON-STRESS Jem Ambrosio TUBE BUILDER Work Phone: Start: 03-24-2025 Urnls dip stick/tabl et rgnt non-auto w/o micrscp Jem Ambrosio TUBE BUILDER Work Phone: Start: 03-10-2025 Urnls dip stick/tabl [...] Td Vaccines (3 - Td or Tdap) [facility] Start: 12-04-2029 Screening for malign ant neoplasm of cervix [facility] Start: 11-24-2025 Adult BMI Screening Adult BMI Screen ing [facility] Start: 06-15-2025 End: 06-15-2025 ambulatory 06/15/2025 9:50 AM EST Visit SHERLY MARES [address] [id number] Scooby Alvarado DO [address] [place] [address] [facility] [place] [facility] Start: 04-07-2025 End: 04-07-2025 Patient encounter procedure 04/07/2025 1:30 PM EDT Routine SHERLY MARES [address] [place] [address] Deborah Rodriguez PA [address] [place] [address] [facility] [place] [facility] Start: 03-24-2025 End: 09-21-2025 US biophysical profile w non stress test US biophysical profile w non stress test Imaging Routine Third trimester ([facility]) Expected: 03/24/2025 (Approximate), Expires: 09/21/2025 [facility] Work Phone: Comment on above: Expected: 03/24/2025 (Approximate), Expires: 09/21/2025 Start: 03-24-2025 End: 03-24-2025 Patient encounter procedure [facility] Comment on above: Arrived Start: 03-10-2025 End: 03-10-2025 Patient encounter procedure 03/10/2025 1:20 PM EDT Routine [facility] [address] [phone] Deborah Rodriguez, PA [address] [place] [address] Arrived [facility] Comment on above: Arrived Start: 03-03-2025 End: 03-03-2025 Patient encounter procedure 03/03/2025 2:40 PM EDT Routine [facility] [address] [id number] Scooby Alvarado DO [address] [place] [address] [facility] Start: 02-25-2025 End: 02-25-2025 Professional / ancillary services management 02/25/2025 3:00 PM EDT Ancillary Procedure [facility] [address] [id number] [facility] Start: 02-23-2025 COVID-19 Vaccine ( season) COVID-19 Vaccine ( season) [facility] Start: 02-23-2025 Influenza vaccination P [facility] Start: 02-16-2025 End: 02-16-2025 Patient encounter procedure 02/16/2025 2:30 PM EDT Routine [facility] [address] [phone] Deborah Rodriguez, PA [address] [place] [address] [facility] Start: 02-16-2025 End: 06-18-2025 US for US OB follow up transabdominal approach Imaging Routine Size of fetus inconsistent with dates in second trimester ([facility]) Expected: 02/16/2025, Expires: 06/18/2025 [facility] [...] EDT Ancillary Procedure [facility] [address] [address] [facility] Start: 01-01-2025 End: 01-01-2025 Patient encounter procedure [facility] Comment on above: Arrived Start: 12-20-2024 Tobacco Screening Tobacco Screening [facility] Start: 12-19-2024 Adult BMI Screening Adult BMI Screen ing [facility] Start: 12-04-2024 End: 01-03-2025 Alpha fetoprotein, maternal Alpha fetoprotein, maternal Lab Routine Need for maternal serum alpha-protein (MSAFP) screening ([facility]) Expected: 12/04/2024 (Approximate), Expires: 01/03/2025 [facility] Comment on above: Expected: 12/04/2024 (Approximate), Expires: 01/03/2025 Start: 12-04-2024 End: 03-06-2025 US for US OB 14+ weeks anatomy scan Imaging Routine Screening, , for anatomic survey ([facility]) Expected: 12/04/2024, Expires: 03/06/2025 [facility] Comment on above: Expected: 12/04/2024 , Expires: 03/06/2025 Start: 12-04-2024 End: 12-04-2024 Patient encounter procedure 12/04/2024 9:40 AM EDT Routine [facility] [address] [address] Scooby Alvarado, DO [address] [place] [address] [facility] Start: 11-13-2024 End: 11-13-2024 Patient encounter procedure 11/13/2024 10:40 AM EDT Routine [facility] [address] [place] [address] Scooby Alvarado, DO [address] [place] [address] [facility] Start: 10-16-2024 End: 10-16-2025 ABO/Rh ABO/Rh Lab Routine Missed menses , unspecified gestational age Expected: 10/16/2024 (Approximate), Expires: 10/16/2025 [facility] Comment on above: Expected: 10/16/2024 (Approximate), Expires: 10/16/2025 Start: 10-16-2024 End: 10-16-2025 Blood type and Indirect antibody screen panel - Blood Type and screen Lab Routine Missed menses , unspecified gestational age Expected: 10/16/2024 (Approximate), Expires: 10/16/2025 [facility] Work Phone: Comment on above: Expected: 10/16/2024 (Approximate), Expires: 10/16/2025 Start: 10-16-2024 End: 10-16-2025 Drugs of abuse panel - Urine by Screen method Rapid drug screen, urine Lab Routine , unspecified gestational age Encounter for supervision of normal first in first trimester Expected: 10/16/2024 (Approximate), Expires: 10/16/2025 [facility] Comment on above: Expected: 10/16/2024 (Approximate), Expires: 10/16/2025 Start: 02-24-2024 COVID-19 Vaccine () COVID-19 Vaccine () [facility] Start: 2021 Screening for malign ant neoplasm of cervix [facility] Start: 2012 Screening for malign ant neoplasm of cervix Pap Smear [facility] Start: 2009 Adult BMI Follow Up Plan Adult BMI Follow Up Plan [facility] Start: 2003 Depression Screening Depression Scre ening [facility] Bacteria identified in Urine by Culture Urine culture Microbiology Routine Missed menses Ordered: 10/16/2024 [facility] Comment on above: Ordered: 10/16/2024 CBC W Auto Different ial panel - Blood CBC and differential Lab Routine Missed menses , unspecified gestational age Ordered: 10/16/2024 [facility] Comment on above: Ordered: 10/16/2024 CHLAMYDIA TRACHOMATI S (GENITO/STI) CHLAMYDIA TRACHOMATIS (GENITO/STI) Lab Routine Screen for STD (sexually transmitted disease) Ordered: 12/04/2024 [facility] Comment on above: Ordered: 12/04/2024 Cytology Cervical or vaginal smear or scraping study Pap Smear Pathology and Cytology Routine Well woman exam with routine gynecological exam Ordered: 12/04/2024 [facility] Comment on above: Ordered: 12/04/2024 Hemoglobin A1c/Hemoglobin.total in Blood Hemoglobin A1c Lab Routine Missed menses , unspecified gestational age Ordered: 10/16/2024 [facility] Comment on above: Ordered: 10/16/2024 Hepatitis B virus surface Ag [Presence] in Serum or Plasma by Immunoassay Hepatitis B surface antigen Lab Routine Missed menses , unspecified gestational age Ordered: 10/16/2024 [facility] Comment on above: Ordered: 10/16/2024 Hepatitis C virus Ab [Presence] in Serum or Plasma by Immunoassay Hepatitis C antibody Lab Routine Missed menses , unspecified gestational age Ordered: 10/16/2024 [facility] Comment on above: Ordered: 10/16/2024 HIV-1/HIV-2 antigen/antibody combination immunoassay HIV-1 and HIV-2 antibodies Lab Routine Missed menses , unspecified gestational age Ordered: 10/16/2024 [facility] Comment on above: Ordered: 10/16/2024 Human papilloma viru s DNA [Presence] in Unspecified specimen by Probe with amplification HPV DNA probe, amplified Microbiology Routine Well woman exam with routine gynecological exam Ordered: 12/04/2024 [facility] Comment on above: Ordered: 12/04/2024 Neisseria gonorrhoea e DNA [Presence] in Unspecified specimen by CARLITOS with probe detection Neisseria gonorrhea DNA probe, direct Lab Routine Screen for STD (sexually transmitted disease) Ordered: 12/04/2024 [facility] Comment on above: Ordered: 12/04/2024 Reagin Ab [Presence] in Serum by RPR RPR Lab Routine Missed menses , unspecified gestational age Ordered: 10/16/2024 [facility] Comment on above: Ordered: 10/16/2024 Rubella antibody, IgG Rubella an tibody, IgG Lab Routine Missed menses , unspecified gestational age Ordered: 10/16/2024 [facility] Comment on above: Ordered: 10/16/2024 SURESWAB(R) ADVANCED VAGINITIS PLUS, TMA SURESWAB(R) ADVANCED VAGINITIS PLUS, TMA Pathology and Cytology Routine Screen for STD (sexually transmitted disease) Ordered: 12/04/2024 [facility] Work Phone: Comment on above: Ordered: 12/04/2024 Immunizations Immunization Date Immunization Notes Care Provider [facility] 04-04-2024 influenza virus vaccine, unspecified formulation Oma Davis RN Work Phone: [facility] Payers Date Payer Category Payer Medicaid [employer] [place] [place] [id number] 2025 Medicaid [id number] 2022 Self-pay 2022 Managed Care Other (unspecified) [employer] [id number] 2022 Private Health Insurance [facility] [id number] 2022 Private Health Insurance [facility] [id number] 1991 Unknown [id number] 2.16.840.1.497457.3.579.2. 593 1991 Unknown [id number] 2.16.840.1.458022.3.579.2. 593 1991 Unknown [id number] 2.16.840.1.878138.3.579.2. 593 1991 Unknown [id number] 2.16.840.1.175941.3.579.2. 593 1991 Unknown [id number] 2.16.840.1.286051.3.579.2. 593 1991 Unknown [id number] 2.16.840.1.527609.3.579.2. 593 1991 Unknown [id number] 2.16.840.1.340238.3.579.2. 593 1991 Unknown [id number] 2.16.840.1.156027.3.579.2. 593 1991 Unknown [id number] 2.16.840.1.133692.3.579.2. 593 1991 Unknown [id number] 2.16.840.1.584525.3.579.2. 593 1991 Unknown [id number] 2.16.840.1.189943.3.579.2. 593 1991 Unknown [id number] 2.16.840.1.492193.3.579.2. 593 1991 Unknown [id number] 2.16.840.1.464438.3.579.2. 593 1991 Unknown [id number] 2.16.840.1.612480.3.579.2. 593 1991 Unknown [id number] 2.16.840.1.716272.3.579.2. 593 1991 Unknown [id number] 2.16.840.1.302131.3.579.2. 593 1991 Unknown [id number] 2.16.840.1.470433.3.579.2. 593 1991 Unknown [id number] 2.16.840.1.090416.3.579.2. 593 1991 Unknown [id number] 2.16.840.1.147178.3.579.2. 593 1991 Unknown [id number] 2.16.840.1.387231.3.579.2. 593 1991 Unknown [id number] 2.16.840.1.624681.3.579.2. 1286 1991 Unknown [id number] 2.16.840.1.365726.3.579.2. 1285 1991 Unknown [id number] 2.16.840.1.056701.3.579.2. 1286 1991 Unknown [id number] 2.16.840.1.310184.3.579.2. 128 1991 Unknown [id number] 2.16.840.1.133773.3.579.2. 1258 1991 Unknown [id number] 2.16.840.1.706016.3.579.2. 1258 1991 Unknown [id number] 2.16.840.1.786996.3.579.2. 1258 1991 Unknown [id number] 2.16.840.1.564022.3.579.2. 1258 1991 Unknown [id number] 2.16.840.1.388262.3.579.2. 1258 1991 Unknown [id number] 2.16.840.1.107613.3.579.2. 1258 1991 Unknown [id number] 2.16.840.1.544690.3.579.2. 1258 1991 Unknown [id number] 2.16.840.1.547548.3.579.2. 1258 1991 Unknown [id number] 2.16.840.1.168772.3.579.2. 1258 1991 Unknown [id number] 2.16.840.1.628787.3.579.2. 1258 1991 Unknown [id number] 2.16.840.1.540772.3.579.2. 1259 1959 Unknown [id number] 1959 Unknown [id number] Unknown [id number] 2.16.840.1.362860.3.579.2. 531 Social History Date Type Detail Facility Start: 08-05-2020 End: 12-21-2023 Sex Assigned At [facility] Tobacco smoking stat us DEIS Tobacco smoking consumption unknown [facility] Start: 08-12-2024 [facility] Start: 1990 Sex assigned at Female [facility] Start: 06-27-2023 Gender identity Identifies as female gender (finding) [facility] Start: 06-27-2023 Sexual orientation Heterosexual (finding) [facility] Start: 08-25-2019 Tobacco smoking status DEIS Never smoked tobacco [facility] Start: 08-25-2019 Tobacco use and exposure Smokeless tobacco non-user [facility] Start: 11-19-2024 Alcoholic beverage intake Ex-drinker (finding) [facility] Start: 08-05-2020 End: 12-21-2023 History of Social function [facility] Are you worried or concerned that in the next two months you may not have stable housing that you own, rent or stay in as a part of a household? No [facility] Start: 1990 Sex assigned at Not on file [facility] Start: 01-28-2015 Sex Female (finding) [facility] Medical Equipment Procedure Code Equipment Code Equipment Origin al Text Equipment Identifier Dates 1 strip by In Vi tro route Daily Use in the morning prior to breakfast, 1 hour after each meal for a total of 4times daily. [id number] Start: 11-13-2024 End: 12-13-2024 1 each by In Vit ro route Daily Use to check FSBS four times daily [id number] Start: 11-13-2024 End: 12-13-2024 Clinical Notes 07-09-2021 to 03-24-2025 Jem Ambrosio, TUBE BUILDER - 03/24/2025 10:50 AM EDTTelephone Encounter - [...] to check FSBS. Blood Glucose Monitoring Suppl ([employer] Glucometer) w/Device kit 1 kit, Does not apply, Daily, Use four times daily to check FSBS. In the morning prior to breakfast & 1 hour after each meal for a total of 4times daily. Hyervsvf-Iza-Wx-FA ( 1 + IRON PO) Take by mouth ProFe 391.3 (180 Fe) MG capsule 1 capsule, Daily ALLERGIES Not on File PROBLEMS Active Ambulatory Problems Diagnosis Date Noted 28 weeks gestation of ([facility]) 02/16/2025 Third trimester ([facility]) 02/16/2025 Resolved Ambulatory Problems Diagnosis Date [...] nursing note reviewed. Exam conducted with a talkback host present. Vitals: Estimated body mass index is 33.44 kg/m as calculated from the following: Height as of 12/04/24: 5' 4 . Weight as of 03/10/25: 194 lb 12.8 oz. BP: Patient's last menstrual period was 07/29/2024 (exact date). ASSESSMENT & PLAN ICD-10-CM 1. 34 weeks gestation of ([facility]) Z3A.34 2. Third trimester ([facility]) Z34.93 US biophysical profile w non stress test POCT urinalysis dipstick manually resulted 3. Gestational diabetes mellitus (GDM) in third trimester, gestational diabetes method of control unspecified ([facility]) O24.419 Return OB: Patient presents today [...] continues to send her glucose logs to [facility] and we will begin NST/BPP this week. Orders Placed This Encounter Procedures US biophysical profile w non stress test POCT urinalysis dipstick manually resulted Follow Up: Patient is to return to office in 2 week for routine OB appointment. Documented by Yane Grant MA on behalf of: Jem Ambrosio NP documented in this encounter [facility] 03-20-2025 Miscellaneous Notes Called patient and had to leave a voicemail. We haven't received any blood sugar logs for 4 weeks. Asked her to please send them to us or to call with questions. Left RD phone number. [facility] Telephone encounter Note Called patient and had to leave a voicemail. We haven't received any blood sugar logs for 4 weeks. Asked her to please send them to us or to call with questions. Left RD phone number. [facility] 03-10-2025 History of Presen t illness Narrative Reason for Appointment: Patient ID: Paris Mosqueda is a 34 y.o. female who presents for Routine Visit Patient presents today for Return OB appointment. MEDICATIONS Current Outpatient Medications Medication Instructions Alcohol Swabs (Alcohol Prep Pad) 70 % pads 1 Pad, Topical, Daily, Use four times daily to check FSBS. Blood Glucose Monitoring Suppl ([employer] Glucometer) w/Device kit 1 kit, Does not apply, Daily, Use four times daily to check FSBS. In the morning prior to breakfast & 1 hour after each meal for a total of 4times daily. Itdlrowj-Pfy-Eq-FA ( 1 + IRON PO) Take by mouth ProFe 391.3 (180 Fe) MG capsule 1 capsule, Daily ALLERGIES No Known Allergies PROBLEMS Active Ambulatory Problems Diagnosis Date Noted 28 weeks gestation of ([facility]) 02/16/2025 Third trimester ([facility]) 02/16/2025 Resolved Ambulatory Problems Diagnosis Date [...] nursing note reviewed. Exam conducted with a talkback host present. Vitals: Estimated body mass index is 33.44 kg/m as calculated from the following: Height as of 12/04/24: 5' 4 . Weight as of this encounter: 194 lb 12.8 oz. BP: 136/74 Patient's last menstrual period was 07/29/2024 (exact date). ASSESSMENT & PLAN ICD-10-CM 1. 32 weeks gestation of ([facility]) Z3A.32 POCT urinalysis dipstick manually resulted 2. Third trimester ([facility]) Z34.93 POCT urinalysis dipstick manually resulted [...] of: SCOTTIE Yañez documented in this encounter [facility] 02-16-2025 History of Presen t illness Narrative Reason for Appointment: Patient ID: Paris Mosqueda is a 34 y.o. female who presents for Routine Visit Patient presents today for Return OB appointment. MEDICATIONS Current Outpatient Medications Medication Instructions Alcohol Swabs (Alcohol Prep Pad) 70 % pads 1 Pad, Topical, Daily, Use four times daily to check FSBS. Blood Glucose Monitoring Suppl ([employer] Glucometer) w/Device kit 1 kit, Does not apply, Daily, Use four times daily to check FSBS. In the morning prior to breakfast & 1 hour after each meal for a total of 4times daily. Hyszohok-Ufm-Qq-FA ( 1 + IRON PO) Take by mouth ProFe 391.3 (180 Fe) MG capsule 1 capsule, Daily ALLERGIES No Known Allergies PROBLEMS Active Ambulatory Problems Diagnosis Date Noted 28 weeks gestation of ([facility]) 02/16/2025 Third trimester ([facility]) 02/16/2025 Resolved Ambulatory Problems Diagnosis Date [...] nursing note reviewed. Exam conducted with a talkback host present. Vitals: Estimated body mass index is 33.3 kg/m as calculated from the following: Height as of 12/04/24: 5' 4 . Weight as of this encounter: 194 lb. BP: 128/72 Patient's last menstrual period was 07/29/2024 (exact date). ASSESSMENT & PLAN ICD-10-CM 1. Size of fetus inconsistent with dates in second trimester ([facility]) O26.842 US OB follow up transabdominal approach 2. 28 weeks gestation of ([facility]) Z3A.28 CANCELED: CBC and differential 3. Third trimester ([facility]) Z34.93 Return OB: Patient presents today [...] of: SCOTTIE Yañez documented in this encounter [facility] 02-02-2025 History of Presen t illness [...] meal for a total of 4times daily. Cigxaybr-Zbg-Ys-FA ( 1 + IRON PO) Take by [...] nursing note reviewed. Exam conducted with a talkback host present. Vitals: Estimated body mass index is 33 kg/m as calculated from the following: Height as of 12/04/24: 5' 4 . Weight as of this encounter: 192 lb 4 oz. BP: 136/78 Patient's last menstrual period was 07/29/2024 (exact date). ASSESSMENT & PLAN ICD-10-CM 1. Second trimester ([facility]) Z34.92 POCT urinalysis dipstick manually resulted 2. 26 weeks gestation of ([facility]) Z3A.26 3. Diabetes mellitus screening Z13.1 [...] glucose log and completed Diabetic education through [facility]. Documented by Jem Ambrosio NP on behalf of: Scooby Alvarado DO documented in this encounter [facility] 01-01-2025 History of Presen t illness [...] meal for a total of 4times daily. Hlpevrpx-Gyz-Xj-FA ( 1 + IRON PO) Take by [...] ASSESSMENT & PLAN ICD-10-CM 1. Second trimester ([facility]) Z34.92 POCT urinalysis dipstick manually resulted 2. 22 weeks gestation of ([facility]) Z3A.22 Return OB: Patient presents today [...] of: SCOTTIE Yañez documented in this encounter [facility] 12-04-2024 Miscellaneous Notes Called regarding blood [...] have questions you can call me at [phone]. Please continue to send in blood sugars weekly. I will also send a [employer] computer message. [facility] Tele[facility] encounter Note Called regarding blood [...] have questions you can call me at [phone]. Please continue to send in blood sugars weekly. I will also send a [employer] computer message. [employer] Work Phone: 12-04-2024 History of Presen t [...] Use to check FSBS four times daily Vxcvxogn-Mxx-Bk-FA ( 1 + IRON PO) Take by [...] nursing note reviewed. Exam conducted with a talkback host present. Vitals: There is no height or weight on file to calculate BMI. BP: 118/72 Patient's last menstrual period was 07/29/2024 (exact date). ASSESSMENT & PLAN ICD-10-CM 1. Second trimester ([facility]) Z34.92 POCT urinalysis dipstick manually resulted 2. 18 weeks gestation of ([facility]) Z3A.18 3. Well woman exam with routine gynecological exam Z01.419 Pap Smear HPV DNA probe, amplified 4. Screening, , for anatomic survey ([facility]) Z36.89 US OB 14+ weeks anatomy scan 5. Screen for STD (sexually transmitted disease) Z11.3 SURESWAB(R) ADVANCED VAGINITIS PLUS, TMA CHLAMYDIA TRACHOMATIS (GENITO/STI) Neisseria gonorrhea DNA probe, direct 6. Need for maternal serum alpha-protein (MSAFP) screening ([facility]) Z36.1 Alpha fetoprotein, maternal Alpha fetoprotein, [...] Scooby Alvarado DO documented in this encounter [facility] 11-24-2024 Group counseling note Patient: Paris [...] Face to face time was 85 minutes. [employer] Work Phone: 11-24-2024 Miscellaneous Notes Patient: Paris [...] was 85 minutes. documented in this encounter [employer] 11-13-2024 History of Presen t illness Narrative [...] Use to check FSBS four times daily Fsutvmcp-Awx-Tr-FA ( 1 + IRON PO) Take by [...] nursing note reviewed. Exam conducted with a talkback host present. Vitals: There is no height or [...] Glucose Test) strip Blood Glucose Monitoring Suppl ([employer] (PVT) Glucometer) w/Device kit 5. Elevated glucose tolerance test R73.09 Lancets Ultra Thin misc Alcohol Swabs (Alcohol Prep Pad) 70 % pads Glucose Blood (Blood Glucose Test) strip Blood Glucose Monitoring Suppl ([employer] (PVT) Glucometer) w/Device kit New OB: Patient presents [...] or undercooked meat, and stay away from [facility]. Patient has been consulted regarding any further do's and don'ts of . Patient voiced understanding and all questions and concerns were answered. Orders Placed This Encounter Procedures POCT urinalysis dipstick manually resulted Discussed with patient her recent A1c results and patient aware that referral will be sent to [facility] for Diabetic Education and monitoring. PVU and supplies sent to pharmacy for patient to pickup and take with her to her referral appointment. Follow Up: Patient is to return in 4 weeks for routine OB appointment. Documented by Wendy Ulloa LPN on behalf of: Scooby Alvarado DO documented in this encounter [facility] 10-16-2024 History of Presen t illness [...] or undercooked meat, and stay away from [facility]. Patient has also been advised to [...] Faye Tyler MA documented in this encounter [facility] 07-09-2021 Evaluation note Encounter Date Diagnosis [...] Patient care instructions given in writting by [facility] Care At Home document [employer] Other Evaluation note* Diagnosis Missed menses Missed [...] of control unspecified [facility]* Diagnosis Second trimester ([facility]) state, incidental 18 weeks gestation of ([facility]) Well woman exam with routine gynecological exam Routine gynecological examination Screening, , for anatomic survey ([facility]) Encounter for anatomic survey Screen for STD (sexually transmitted disease) Screening examination for venereal disease Need for maternal serum alpha-protein (MSAFP) screening ([facility]) [facility] [...] encounter [facility] HealthcareInstructionsNot on filedocumented in this encounterProMedimt Health SystemInstructionsNot on filedocumented in this encounterProMedimt Health System Summary Purpose Family History No Family History Records FoundNo Family History Records FoundNo Family History Records FoundNo Family History Records FoundNo Family History Records Found Advance Directives Date Activated Date Inactivated Comments 12/20/2023 11:13 PM 12/21/2023 1:46 PM Additional Source Comments INFORMATION SOURCE (unrecogn ized section and content) DATE CREATED AUTHOR 11/17/2021 [facility] DATE CREATED AUTHOR AUTHOR'S ORGANIZ ATION 03/24/2022 [facility] DATE CREATED AUTHOR AUTHOR'S ORGANIZ ATION 12/29/2023 [facility] DATE CREATED AUTHOR AUTHOR'S ORGANIZ ATION 11/25/[address] [facility] DATE CREATED AUTHOR AUTHOR'S ORGANIZ ATION 03/29/2025 [facility] EPIC REASON FOR VISIT (unrecogniz ed section and content) Reason Comments Amenorrhea Reason Comments Routine Visit Reason Comments Gestational Diabetes Specialty Diagnoses / Procedures Referred By Contac t Referred To Contact Maternal and Medicine Diagnoses Gestational diabetes mellitus (GDM) in second trimester, gestational diabetes method of control unspecified Scooby Alvarado R, DO [address] [place] [address] Phone: tel: fax: Maternal- Medicine at [facility] [address] [place] [address] Phone: tel: fax: Referral ID Status Reason Start Date Expiration Date Visits Requested Visits Authorized [id number] Pending Review Specialty Services Required 11/19/2024 11/19/2025 1 1 Care Teams (unrecognized sec tion and content) Client Administrator Relationship Specialty Start Date End Date No Pcp, [place] [address] PCP - General Family Medicine 12/19/23 Client Administrator Relationship Specialty Start Date End Date No Pcp, [place] [address] PCP - General Family Medicine 12/19/23 Client Administrator Relationship Specialty Start Date End Date No Pcp, [place] [address] PCP - General Family Medicine 12/19/23 FOR [...] BE BASED ON THE PRIMARY CLINICAL RECORDS. [facility] [employer] [facility]. provides no warranty or guarantee of the accuracy or completeness of information in this document.
[2025-04-07 11:42] VITALS: BP 115/63; PULSE 71
== END 2025-04-07 12:05 | disposition home or self-care (01) ==
LOC: US 11:23 → FBC 11:26
PROVIDERS: Visit Provider Nurse Practitioner Family
DX: O24.419 Gestational diabetes mellitus in pregnancy, unspecified control (principal); Z3A.36 36 weeks gestation of pregnancy
CPT/HCPCS: 76818; 87081

== ENCOUNTER 2025-04-07 19:24 | Outpatient (REF) | payer MEDICAID, SELFPAY ==
--- OUTSIDE RECORDS SUMMARY | 2025-03-24 10:50 | XMS_ITS | Encounter Summary ---
Author Organization [facility] Address [address] [place] [address] Care Team Providers Care Animal Behaviourist Name Role Phone Unavailable Primary Care Provider Unavailabl e Reason for Visit * Reason Comments Routine Visit Encounter Details Date Type Department Care Team ([facility] Contact Info) Description 03/24/2025 10:50 AM EDT Routine [facility] [place] [facility] [address] [address] Krys Ambrosio, KAYY [address] [place] [address] 34 weeks gestation of ([facility] [place] Third trimester ([facility]); Gestational diabetes mellitus (GDM) in third trimester, gestational diabetes method of control unspecified ([facility]) Social History Tobacco Use Types Packs/Day Years [...] Sign Reading Time Taken Comments Blood Pressure 118/80 03/24/2025 11:04 AM EDT Pulse - - Temperature - - Respiratory Rate - - Oxygen Saturation - - Inhaled Oxygen Concentration - - Weight 89.2 kg (196 lb 12 oz) 03/24/2025 11:04 A M EDT Height - - Body Mass Index 33.77 12/04/2024 10:26 AM EDT documented in this encounter Progress Notes * Krys Ambrosio NP - 03/24/2025 10:50 AM EDT Reason for Appointment: Patient ID: Paris Mosqueda is a 34 y.o. female who presents for Routine Visit Patient presents today for Return OB appointment. MEDICATIONS Current Outpatient Medications Medication Instructions Alcohol Swabs (Alcohol Prep Pad) 70 % pads 1 Pad, Topical, Daily, Use four times daily to check FSBS. Blood Glucose Monitoring Suppl (travayl-VMTurbo Glucometer) w/Device kit 1 kit, Does not apply, Daily, Use four times daily to check FSBS. In the morning prior to breakfast & 1 hour after each meal for a total of 4times daily. Wrdejpha-Kht-Ut-FA ( 1 + IRON PO) Take by mouth ProFe 391.3 (180 Fe) MG capsule 1 capsule, Daily ALLERGIES Not on File PROBLEMS Active Ambulatory Problems Diagnosis Date Noted 28 weeks gestation of ([facility]) 02/16/2025 Third trimester ([facility]) 02/16/2025 Resolved Ambulatory Problems Diagnosis Date Noted No [...] nursing note reviewed. Exam conducted with a corporate attorney present. Vitals: Estimated body mass index is 33.44 kg/m?? as calculated from the following: Height as of 12/04/24: 5' 4 . Weight as of 03/10/25: 194 lb 12.8 oz. BP: Patient's last menstrual period was 07/29/2024 (exact date). ASSESSMENT & PLAN ICD-10-CM 1. 34 weeks gestation of ([facility]) Z3A.34 2. Third trimester ([facility]) Z34.93 US biophysical profile w non stress test POCT urinalysis dipstick manually resulted 3. Gestational diabetes mellitus (GDM) in third trimester, gestational diabetes method of control unspecified ([facility]) O24.419 Return OB: Patient presents today for a routine obstetrics appointment. Patient is currently 34w0d . Patient states she is doing well but has complaints of being tired due to current w/some pelvic pain. Patient has verbalizes frequent movement. labor precautions was discussed/given and patient was instructed to perform kick counts three times a day. She continues to send her glucose logs to [facility] and we will begin NST/BPP this week. Orders Placed This Encounter Procedures US biophysical profile w non stress test POCT urinalysis dipstick manually resulted Follow Up: Patient is to return to office in 2 week for routine OB appointment. Documented by Yane Grant MA on behalf of: Krys Ambrosio NP documented in this encounter Plan of Treatment Upcoming Encounters Date Type Department Care Team (Late st Contact Info) Description 04/14/2025 11:10 AM EDT Routine [facility] [address] [id number] Scooby Alvarado, DO [address] [place], [place] [id number] 06/15/2025 9:50 AM EST Visit SHER[facility] MAR[facility] [address] [place] [phone] Scooby Alvarado, DO [address] [place] [place], [place] [id number] Scheduled Orders Name Type Priority Associated Diagnoses Orde r Schedule US biophysical profile w non stress test Imaging Routine Third trimester ([facility]) Expected: 03/24/2025 (Approximate), Expires: 09/21/2025 documented as of this encounter Procedures Procedure Name Priority Date/Time Associated Diagnosis Comments POCT URINALYSIS DIPSTICK Routine 03/24/2025 11:11 AM EDT Third trimester ([facility]) documented in this encounter Results * (ABNORMAL) POCT urinalysis dipstick manually resulted (03/24/2025 11:11 AM EDT) Color, UA Yellow Clarity, UA Clear Glucose, UA Negative Negative - 1999(110) ++++ mg/dL Bilirubin, UA Negative Negative - 4(70) +++ mg/dL Ketones, UA Negative Negative - 160(16) ++++ mg/dL Spec Grav, UA 1.020 1 - 1.03 Blood, UA Negative Negative - 50 Celestino/mcL pH, UA 6.0 5 - 9 Protein, UA Trace Negative - 1999(20) ++++ mg/dL Urobilinogen, UA 2.0 0.2 - 12 mg/dL Leukocytes, UA Trace Negative - 500+++ Dodie/mcL Nitrite, UA Negative Negative - Positive Urine 03/24/2025 11:1 1 AM EDT Krys Ambrosio NP POINT OF CARE TEST ENTER/EDIT ORDERABLES Final Result documented in this encounter Visit Diagnoses Diagnosis 34 weeks gestation of ([facility]) Third trimester ([facility]) state, incidental Gestational diabetes mellitus (GDM) in third trimester, gestational diabetes method of control unspecified ([facility]) documented in this encounter
--- OUTSIDE RECORDS SUMMARY | 2025-04-07 13:30 | XMS_ITS | Encounter Summary ---
Author Organization [facility] Address [address] [place] [address] Care Team Providers Care Asparagus Buncher Name Role Phone Unavailable Primary Care Provider Unavailabl e Reason for Visit * Reason Comments Routine Visit Encounter Details Date Type Department Care Team ([facility] Contact Info) Description 04/07/2025 1:30 PM EDT Routine [facility] [place] OBG[facility] [address] [place] [phone] Deborah Kwan PA [address] [facility] [place] [address] Third trimester ([facility]); 36 weeks gestation of ([facility]) Social History Tobacco Use Types Packs/Day [...] Sign Reading Time Taken Comments Blood Pressure 126/70 04/07/2025 1:35 PM EDT Pulse - - Temperature - - Respiratory Rate - - Oxygen Saturation - - Inhaled Oxygen Concentration - - Weight 89.2 kg (196 lb 12 oz) 04/07/2025 1:35 PM EDT Height - - Body Mass Index 33.77 12/04/2024 10:26 AM EDT documented in this encounter Progress Notes * SCOTTIE [...] to check FSBS. Blood Glucose Monitoring Suppl (LiveData Glucometer) w/Device kit 1 kit, Does not apply, Daily, Use four times daily to check FSBS. In the morning prior to breakfast & 1 hour after each meal for a total of 4times daily. Zfnijudn-Ojg-Mk-FA ( 1 + IRON PO) Take by mouth ProFe 391.3 (180 Fe) MG capsule 1 capsule, Daily ALLERGIES Allergies[1] PROBLEMS Active Ambulatory Problems Diagnosis Date Noted 28 weeks gestation of ([facility]) 02/16/2025 Third trimester ([facility]) 02/16/2025 Resolved Ambulatory Problems Diagnosis [...] ASSESSMENT & PLAN ICD-10-CM 1. Third trimester ([facility]) Z34.93 POCT urinalysis dipstick manually resulted CULTURE, GROUP B STREP WITH SUSCEPTIBLITY CULTURE, GROUP B STREP WITH SUSCEPTIBLITY 2. 36 weeks gestation of ([facility]) Z3A.36 Patient is doing well but has [...] Info) Description 04/14/2025 11:10 AM EDT Routine [facility] [address] [place] [phone] Scooby Alvarado DO [address] [place] [address] 06/15/2025 9:50 AM EST Visit [facility] [address] [place] [address] Scooby Alvarado DO [address] [facility] [place] [address] Scheduled Orders Name Type Priority Associated Diagnoses Orde r Schedule CULTURE, GROUP B STREP WITH SUSCEPTIBLITY Lab Routine Third trimester ([facility]) Expected: 04/07/2025, Expires: 04/07/2026 documented as of this encounter Procedures Procedure Name Priority Date/Time Associated Diagnosis Comments POCT URINALYSIS DIPSTICK Routine 04/07/2025 1:41 PM EDT Third trimester ([facility]) documented in this encounter Results * POCT urinalysis dipstick manually resulted (04/07/2025 1:41 PM EDT) Color, UA Yellow Clarity, UA Clear Glucose, UA Negative Negative - 2000(110) ++++ mg/dL Bilirubin, UA Negative Negative - 4(70) +++ mg/dL Ketones, UA Negative Negative - 160(16) ++++ mg/dL Spec Grav, UA 1.010 1 - 1.03 Blood, UA Negative Negative - 50 Celestino/mcL pH, UA 6.0 5 - 9 Protein, UA Negative Negative - 2000(20) ++++ mg/dL Urobilinogen, UA 0.2 0.2 - 12 mg/dL Leukocytes, UA Negative Negative - 500+++ Dodie/mcL Nitrite, UA Negative Negative - Positive Urine 04/07/2025 1:41 PM EDT Deborah RUBIN POINT OF CARE TEST ENTER/EDIT OR DERABLES Final Result documented in this encounter Visit Diagnoses Diagnosis Third trimester ([facility]) state, incidental 36 weeks gestation of ([facility]) documented in this encounter
--- OUTSIDE RECORDS SUMMARY | 2025-04-07 19:27 | XMS_ITS | Encounter Summary ---
Author Organization [facility] Address [address] [place] [address] Care Team Providers Care Boat Worker Name Role Phone Unavailable Primary Care Provider Unavailabl e Encounter Details Date Type Department Care Team (Late Contact Info) Description 04/07/2025 Bamboo flowsheet [facility]ES [address] [place] [address] Deborah Kwan PA [address] [address] [place], [place] [address] Social History Tobacco Use Types Packs/Day Years [...] Info) Description 04/14/2025 11:10 AM EDT Routine NOMMarlene MARES [address] [place] [address] [place] [address] Scooby Alvarado DO [address] [facility] [address] [place], [place] [address] 06/15/2025 9:50 AM EST Visit [facility] [address] [place] [address] Scooby Alvarado DO [address] [place] [address] [place] [address] documented as of this encounter Visit Diagnoses Not on filedocumented in this encounter
--- OUTSIDE RECORDS SUMMARY | 2025-04-07 19:28 | XMS_ITS | Encounter Summary ---
Author Organization [facility] Address [address] [facility] [place] [address] Care Team Providers Care Fare Register Repairer Name Role Phone Unavailable Primary Care Provider Unavailabl e Encounter Details Date Type Department Care Team (Late Contact Info) Description 12/12/2024 Orders Only SHERLY MARES [address] [place] [phone] Yane Grant MA [address] [facility] [place] [address] Social History Tobacco Use Types Packs/Day Years [...] Info) Description 04/14/2025 11:10 AM EDT Routine N[facility] MARES [address] [place] [address] Scooby Alvarado DO [address] [facility] [place] [address] 06/15/2025 9:50 AM EST Visit [facility] MARES [address] [facility] [place] [address] Scooby Alvarado DO [address] [facility] [place] [address] documented as of this encounter Procedures Procedure [...]
--- OUTSIDE RECORDS SUMMARY | 2025-04-07 19:28 | XMS_ITS | Encounter Summary ---
Author Organization [facility] Address [address] [place] [address] Care Team Providers Care Instrument Panel Assembler Name Role Phone Unavailable Primary Care [...] 04/14/2025 11:10 AM EDT Routine [facility] MARES [address] [place] [address] [place] [address] Scooby Alvarado, DO [address] [place], [place] [address] 06/15/2025 9:50 AM EST Visit SHERLY MARES [address] [place] [address] Scooby Alvarado, DO [address] [place], [facility] documented as of this encounter Visit Diagnoses Not on filedocumented in this encounter
--- OUTSIDE RECORDS SUMMARY | 2025-04-07 19:28 | XMS_ITS | Clinical Summary ---
Author Organization [facility] Address [address] [place] [address] Care Team Providers Care Oil And Gas Exploration Technician Name Role Phone Unavailable Primary Care Provider Unavailabl e Allergies No known active allergies Medications Ylgzjjtl-Ldq-Oc- FA ( 1 + IRON PO) Take by mouth Active Alcohol Swabs (Alcohol Prep Pad) 70 % padsIndications: Gestational diabetes mellitus (GDM), antepartum, gestational diabetes method of control unspecified ([facility]),Elevat ed glucose tolerance test Apply 1 Pad topically Daily Use four times daily to check FSBS. 150 each 3 5 Active Blood Glucose Monitoring Suppl (D-Care Glucometer) w/Device kitIndications:G estational diabetes mellitus (GDM), antepartum, gestational diabetes method of control unspecified ([facility]),Elevat ed glucose tolerance test 1 kit Daily Use four times daily to check FSBS. In the morning prior to breakfast & 1 hour after each meal for a total of 4times daily. 1 kit 5 11/14/19 26 Active ProFe 391.3 (180 Fe) MG capsule Take 1 capsule by mouth Daily 4 Active Active Problems Problem Noted Date Diagnosed Date 28 weeks gestation of ([facility]) 2024 Third trimester ([facility]) 02/16/2025 Estimated Date of Delivery Comme nts Yes 05/05/2025 Based on last me nstrual period of 07/29/2024 (Exact Date) Encounters Date Type Department Care Team Description 04/07/2025 1:30 PM EDT Routine SHERLY MARES [address] [place] [address] Deborah Kwan PA Third trimester ([facility]); 36 weeks gestation of ([facility]) 04/07/2025 Bamboo flowsheet [facility] [place] [facility] [address] [place] [address] Deborah Kwan PA 03/31/2025 Clinisync Result Encounter NOMS External Department Unsolicited Krys Ambrosio NP 03/24/2025 10:50 AM EDT Routine [facility] [address] [place] [address] Krys Ambrosio NP 34 weeks gestation of ([facility]); Third trimester ([facility]); Gestational diabetes mellitus (GDM) in third trimester, gestational diabetes method of control unspecified ([facility]) 03/24/2025 Bamboo flowsheet [facility] [address] [place] [address] [place] [address] Krys Ambrosio NP 03/24/2025 Travel 03/10/2025 1:20 PM EDT Routine [facility] MENCHACAN [address] [place] [address] Deborah Kwan PA 32 weeks gestation of ([facility]); Third trimester ([facility]) 03/10/2025 Travel 03/10/2025 Bamboo flowsheet [facility] [address] [place] [address] [place] [address] Deborah Kwan PA 02/25/2025 3:00 PM EDT Ancillary Procedure [facility] MENCHACAN [address] [place] [address] Size of fetus inconsistent with dates in second trimester ([facility]) 02/25/2025 Travel 02/16/2025 2:30 PM EDT Routine [facility] [address] [place] [address] Deborah Kwan PA Size of fetus inconsistent with dates in second trimester ([facility]) (Primary Dx); 28 weeks gestation of ([facility]); Third trimester ([facility]) 02/16/2025 Bamboo flowsheet [facility] MARES [address] [place] [address] [place] [address] Deborah Kwan PA 02/16/2025 Travel 02/13/2025 Clinisync Result Encounter NOMS External Department Unsolicited Scooby Alvarado DO 02/02/2025 2:50 PM EDT Routine [facility] San[facility] [place] [address] Scooby Alvarado DO Second trimester ([facility]); 26 weeks gestation of ([facility]); Diabetes mellitus screening 02/02/2025 Bamboo flowsheet [facility] MARES [address] [place] [address] [place] [address] Scooby Alvarado DO 02/02/2025 Travel 01/26/2025 3:00 PM EDT Ancillary Procedure [facility] MARES [address] [place] [address] [place] [address] Encounter for follow-up ultrasound of anatomy ([facility]) 01/26/2025 Travel from Last 3 Months Family [...] 12 oz) 04/07/2025 1:35 PM EDT Height 162.6 cm (5' 4 ) 12/04/2024 10:26 AM EDT Body Mass Index 33.77 12/04/2024 10:26 AM EDT Plan of Treatment Upcoming Encounters Date Type Department Care Team (Late st Contact Info) Description 04/14/2025 11:10 AM EDT Routine [facility] [address] [place] [address] Scooby Alvarado, DO [address] [place] [address] 06/15/2025 9:50 AM EST Visit [facility]ERLY [facility]ES [address] [facility] [place] [address] Scooby Alvarado, DO [address] [facility] [address] Health Maintenance Due Date Last Done Comments Influenza Vaccine (#1) 2025 4, 04/25/2023, 04/01/2022, Additional history exists Cervical Cancer Screening 12/04/2029 HPV/Cotest 12/04/2029 Pap Smear 12/04/2029 12/04/2024 Procedures Procedure Name Priority Date/Time Associated Diagnosis Comments POCT URINALYSIS DIPSTICK Routine 04/07/2025 1:41 PM EDT Third trimester ([facility]) US OB BPP W NON-STRESS 03/31/2025 5:44 PM EDT POCT URINALYSIS DIPSTICK Routine 03/24/2025 11:11 AM EDT Third trimester ([facility]) POCT URINALYSIS DIPSTICK Routine 03/10/2025 1:32 PM EDT 32 weeks gestation of ([facility]) Third trimester ([facility]) US OB FOLLOW UP TRANSABDOMINAL APPROACH Routine 02/25/2025 3:22 PM EDT Size of fetus inconsistent with dates in second trimester ([facility]) ALL CBC WITH AUTO DIFF Routine 7:06 AM EDT POCT URINALYSIS DIPSTICK Routine 02/02/2025 3:06 PM EDT Second trimester ([facility]) US OB LIMITED 1+ FETUSES Routine 01/26/2025 3:47 PM EDT Encounter for follow-up ultrasound of anatomy ([facility]) PAP SMEAR Routine 12/04/2024 12:00 AM EDT from Last 3 Months or Most Recently Relevant to Health Maintenance Results * POCT urinalysis dipstick manually resulted (04/07/2025 1:41 PM EDT) Only the most recent of4 resultswithin [...] - Positive Urine 04/07/2025 1:41 PM EDT us Deborah RUBIN POINT OF CARE TEST ENTER/EDIT OR DERABLES Final Result * US OB BPP W NON-STRESS (03/31/2025 5:44 PM EDT) Anatomical Region Laterality Modality Other 03/31/2025 5:44 PM EDT Narrative 03/31/2025 5:47 [place] [address] Ultrasound Report Signed Patient: PRISCILLA MOSQUEDA MR#: [id number] : 1990 Acct:[id number] Age/Sex: 34 / F ADM Date: 03/31/25 Loc: US Attending Dr: Krys Ambrosio Ordering Physician: Krys Ambrosio Date of Service: 03/31/25 Procedure(s): US OB BPP w non-stress Accession Number(s): [id number] cc: Krys Ambrosio; [facility] The [place] [address] Patient Name: PRISCILLA MOSQUEDA MRN: [facility]:[id number] date: 1990 Sex: F Assigned Patient Location: [facility] Current Patient Location: Accession/Order Number: [id number] Exam Date: 03/31/2025 12:57 Report Date: 03/31/2025 17:44 At the request of: KRYS AMBROSIO Procedure: US OB BPP w non-stress Ultrasound biophysical profile INDICATION: Gestational diabetes FINDINGS/ IMPRESSION: Cephalic position. 8/ 8 score biophysical profile. JEANNINE measures 7.9 cm which is borderline oligohydramnios. heart rate 152 beats per minutes. Impression dictated by: Nito Chong M.D. 03/31/2025 5:44 PM Dictation Location: [place] [address] Electronically authenticated by: [id number] Y Date: 03/31/2025 17:44 Dictated By: Ntio Chong M.D. Signed By: 03/31/251746 DD/ 43 TD/TT: Gluer: Procedure Note Radiology, Radiologist, MD - 03/31/2025 [place] [address] Ultrasound Report Signed Patient: PRISCILLA MOSQUEDAMR#: [id number] : 1990Acct:[id number] Age/Sex: 34 / FADM Date: 03/31/25 Loc: US Attending Dr: Krys Ambrosio Ordering Physician: Krys Ambrosio Date of Service: 03/31/25 Procedure(s): US OB BPP w non-stress Accession Number(s): [id number] cc: Krys Ambrosio; [place] [id number] Patient Name: PRISCILLA MOSQUEDA MRN: [id number] date: 1990 Sex: F Assigned Patient Location: [facility] Current Patient Location: Accession/Order Number: [id number] Exam Date: 03/31/2025 12:57 Report Date: 03/31/2025 17:44 At the request of: KRYS AMBROSIO Procedure: US OB BPP w non-stress Ultrasound biophysical profile INDICATION: Gestational diabetes FINDINGS/ IMPRESSION: Cephalic position. 8/ 8 score biophysical profile.JEANNINE measures 7.9 cm which is borderline oligohydramnios. heart rate 152 beats per minutes. Impression dictated by: Nito Chong M.D. 03/31/2025 5:44 PM Dictation Location: [place] [address] Electronically authenticated by: [id number] Y Date: 7:44 Dictated By: Nito Chong M.D. Signed By:03/31/25 1747 DD/ 1744 TD/TT: Gluer: us Krys Ambrosio ASSEMBLY MACHINE OPERATOR [facility] Final Resul t * US OB follow up transabdominal approach [...] DO [facility] Final Result [facility] TB * US OB limited 1+ fetuses (01/26/2025 [...]
--- OUTSIDE RECORDS SUMMARY | 2025-04-07 19:28 | XMS_ITS | Encounter Summary ---
Author Organization [facility] Address [address] [place] [address] Care Team Providers Care Chief General [facility] Name Role Phone Unavailable Primary Care Provider Unavailabl e Encounter Details Date Type Department Care Team (Late Contact Info) Description 03/24/2025 Bamboo flowsheet SHERLY MARES [address] [place] [address] [place] [address] Krys Ambrosio, LIVESTOCK YARD ATTENDANT [address] [facility] [place] [address] Social History Tobacco Use Types Packs/Day [...] Department Care Team (Late Contact Info) Description 04/14/2025 11:10 AM EDT Routine SHERLY MARES [address] [place] [address] [place] [address] Scooby Alvarado DO [address] [facility] [address] [place], [facility] 06/15/2025 9:50 AM EST Visit [facility] MARES [address] [facility] [place] [address] Scooby Alvarado DO [address] [facility] [address] [place] [address] documented as of this encounter Visit Diagnoses Not on filedocumented in this encounter
--- OUTSIDE RECORDS SUMMARY | 2025-04-07 19:28 | XMS_ITS | Encounter Summary ---
Author Organization [facility] Address [address] [place] [address] Care Team Providers Care Phys Assistant Name Role Phone Unavailable Primary Care Provider Unavailabl e Encounter Details Date Type Department Care Team (Late Contact Info) Description 11/13/2024 Abstract NOM[facility]ra MARES [address] [place] [address] Scooby Alvarado [address] [place], [facility] Social History Tobacco Use Types Packs/Day [...] 11:10 AM EDT Routine SHERLY MARES [address] [place] [address] Scooby Alvarado [address] [place], [place] [id number] 06/15/2025 9:50 AM EST Visit [facility] Sanam MARES [address] [place] [address] Scooby Alvarado DO [address] [facility] [place] [address] documented as of this encounter Visit Diagnoses Not on filedocumented in this encounter
--- OUTSIDE RECORDS SUMMARY | 2025-04-07 19:28 | XMS_ITS | Encounter Summary ---
Author Organization [facility] Address [address] [place] [address] Care Team Providers Care Paper Bag Maker Name Role Phone Unavailable Primary Care Provider Unavailabl e Encounter Details Date Type Department Care Team ([facility] Contact Info) Description 11/13/2024 Results Follow-Up [facility] San[facility] OBGYDelia [address] [facility] [place] [address] Viola Washington LPN [address] [employer] [place] [id number] BOX TEST, ALL CBC WITH AUTO DIFF, [...] AM EDT Routine NOMMyra MARES [address] [facility] [address] Scooby Alvarado, [address] [facility] [place] [address] 06/15/2025 9:50 AM EST Visit [facility] MARES [address] [facility] [place] [address] Scooby Alvarado, DO [address] [facility] [address] [place], [place] [address] documented as of this encounter Visit Diagnoses Not on filedocumented in this encounter
--- OUTSIDE RECORDS SUMMARY | 2025-04-07 19:28 | XMS_ITS | Encounter Summary ---
Author Organization [facility] [employer] [facility] tem Address [id number] [address] [place] [address] Care Team Providers Care Sewer And Inspector Name Role Phone No Pcp, No Pcp Primary Care Provider Unavailabl e Encounter Details Date Type Department Care Team (Late st Contact Info) Description 11/19/2024 Abstract Maternal- Medicine at [facility] [address] [place] [phone] Provider, Generic External Data Social History Tobacco [...] ORDERABLES Final Re sult Performing Organization Address City/[facility]/ZIP Co de Phone Number MANUALLY TRANSCRIBED RESULTS * CBC without diff (11/11/2024) Hemoglobin 11.8 MANUALLY TRANSCRIBED RESULTS Hematocrit 35.7 MANUALLY TRANSCRIBED RESULTS Rbc Mcv (Fl) By Automated Count 84.0 MANUALLY TRANSCRIBED RESULTS Platelets 284 MANUALLY TRANSCRIBED RESULTS Blood Venous blood / Unknown us Not In System Ref Prov LAB BLOOD ORDERABLES Rachael l Result Performing Organization Address City/[facility] Co de Phone Number MANUALLY TRANSCRIBED RESULTS * HIV 1&2 AB/AG Screen (P24 AG) (11/11/2024) HIV 1&2 AB/AG non reactive MAN UALLY TRANSCRIBED RESULTS Blood Venous blood / Unknown us Not In System Ref Prov LAB BLOOD ORDERABLES Rachael l Result Performing Organization Address [facility] Co de Phone Number MANUALLY TRANSCRIBED RESULTS * Type and screen (11/11/2024) Abo/Rh(D) A Positive MANUALLY TRANSCRIBED RESULTS Antibody Screen negative MANUALLY TRANSCRIBED RESULTS Blood Venous blood / Unknown us Not In System Ref Prov BLOOD BANK TEST ORDERABLE S Final Result Performing Organization Address [facility] Co de Phone Number MANUALLY TRANSCRIBED RESULTS * Rubella IGG immune status (11/11/2024) Rubella immune IgG non immune MANUALLY TRANSCRIBED RESULTS Blood Venous blood / Unknown us Not In System Ref Prov LAB BLOOD ORDERABLES Rachael l Result Performing Organization Address City/[facility] Co de Phone Number MANUALLY TRANSCRIBED [...] ORDERABLES Final Resu lt Performing Organization Address City/[facility]/ZIP Co de Phone Number MANUALLY TRANSCRIBED RESULTS * Basic Metabolic Panel (11/11/2024) Glucose 126 mg/dL MANUALLY TRANSCRIBED RESULTS Blood Venous blood / Unknown us Scooby R Jenny DO LAB BLOOD ORDERABLES Final Resu lt Performing Organization Address [facility] Co de Phone Number MANUALLY TRANSCRIBED RESULTS documented in this encounter Visit Diagnoses Not on filedocumented in this encounter Care Teams Sewer And Inspector Relationship Specialty Start Date End Date No Pcp, [place] [address] PCP - General Family Medicine 12/19/23 documented as of this encounter
--- OUTSIDE RECORDS SUMMARY | 2025-04-07 19:28 | XMS_ITS | Clinical Summary ---
Author Organization [facility] tem Address [id number] [address] [place] [address] Care Team Providers Care Dairy Frozen Manager Name Role Phone No Pcp, No [...] Team Description 03/20/2025 Telephone Maternal- Medicine at [facility] [address] [place] [phone] Amanda Putnam LD from Last 3 Months [...] 07/11/2021 Medical Devices Not on file Insurance [facility] Advance Directives * Full Code (Latest Code Status on File) Date Activated Date Inactivated Comments 12/20/2023 11:13 PM 12/21/2023 1:46 PM Care Teams Dairy Frozen Manager Relationship Specialty Start Date End Date No Pcp, No Pcp IZZY [place] [address] PCP - General Family Medicine 12/19/23
--- OUTSIDE RECORDS SUMMARY | 2025-04-07 19:28 | XMS_ITS | Encounter Summary ---
Author Organization [facility] [employer] [facility] tem Address [id number] [address] [place] [address] Care Team Providers Care Vessel Manager Name Role Phone No Pcp, No Pcp Primary Care Provider Unavailabl e Encounter Details Date Type Department Care Team (Late st Contact Info) Description 11/19/2024 Orders Only Maternal- Medicine at [facility] [address] [place] [address] Ref Prov, [place] [address] Social History Tobacco Use Types Packs/Day Years [...] 4:13 PM EDT) Anatomical Region Laterality Modality [facility] Ultrasound us Not In System Ref Prov IMG US ORDERABLES Final R esult documented in this encounter Visit Diagnoses Not on filedocumented in this encounter Care Teams Vessel Manager Relationship Specialty Start Date End Date No Pcp, [place] [address] PCP - General Family Medicine 12/19/23 documented as of this encounter
--- OUTSIDE RECORDS SUMMARY | 2025-04-07 19:28 | XMS_ITS | Encounter Summary ---
Author Organization [facility] Address [address] [place] [address] Care Team Providers Care Barn Manager Name Role Phone Unavailable Primary Care Provider Unavailabl e Encounter Details Date Type Department Care Team (Late st Contact Info) Description 03/31/2025 Clinisync Result Encounter [facility] Department Unsolicited Jem Ambrosio, DIGESTER COOK [address] [place] [phone] Social History Tobacco Use Types Packs/Day Years [...] 04/14/2025 11:10 AM EDT Routine [facility] [address] [facility] [place] [phone] Scooby Alvarado DO [address] [place] [address] 06/15/2025 9:50 AM EST Visit [facility] [address] [phone] Scooby Alvarado DO [address] [place], [facility] documented as of this encounter Procedures Procedure Name Priority Date/Time Associated Diagnosis Comments US OB BPP W NON-STRESS 03/31/2025 5:44 PM EDT documented in this encounter Results * US OB BPP W NON-STRESS (03/31/2025 5:44 PM EDT) Anatomical Region Laterality Modality Other 03/31/2025 5:44 PM EDT Narrative 03/31/2025 5:47 PM EDT [address] [address] Ultrasound Report Signed Patient: PRISCILLA MOSQUEDA MR#: [id number] : 1990 Acct:[id number] Age/Sex: 34 / F ADM Date: 03/31/25 Loc: US Attending Dr: Jem Ambrosio Ordering Physician: Jem Ambrosio Date of Service: 03/31/25 Procedure(s): US OB BPP w non-stress Accession Number(s): [id number] cc: Jem Ambrosio; [address] [address] Patient Name: PRISCILLA MOSQUEDA MRN: [id number] date: 1990 Sex: F Assigned Patient Location: [facility] Current Patient Location: Accession/Order Number: [id number] Exam Date: 03/31/2025 12:57 Report Date: 03/31/2025 [...] PM Dictation Location: [facility]IO-PC-29 Electronically authenticated by: [id number] Y Date: 03/31/2025 17:44 Dictated By: Nito Chong M.D. Signed By: 03/31/251746 DD/ 43 TD/TT: Food Preparation Supervisor: Procedure Note Radiology, Radiologist, MD - 03/31/2025 [place] [address] Ultrasound Report Signed Patient: PRISCILLA MOSQUEDAMR#: [id number] : 1990Acct:[id number] Age/Sex: 34 / FADM Date: 03/31/25 Loc: US Attending Dr: Jem Ambrosio Ordering Physician: Jem Ambrosio Date of Service: 03/31/25 Procedure(s): US OB BPP w non-stress Accession Number(s): [id number] cc: Jem Ambrosio; [place] [address] Patient Name: PRISCILLA MOSQUEDA MRN: [facility]:[id number] date: 1990 Sex: F Assigned Patient Location: [facility] Current Patient Location: Accession/Order Number: [id number] Exam Date: 03/31/2025 12:57 Report Date: 03/31/2025 17:44 At the request of: JEM AMBROSIO Procedure: US OB BPP w non-stress Ultrasound biophysical profile INDICATION: Gestational diabetes FINDINGS/ IMPRESSION: Cephalic position. 8/ 8 score biophysical profile.JEANNINE measures 7.9 cm which is borderline oligohydramnios. heart rate 152 beats per minutes. Impression dictated by: Nito Chong M.D. 03/31/2025 5:44 PM Dictation Location: [employer]PC-29 Electronically authenticated by: [id number] Y Date: 7:44 Dictated By: Nito Chong M.D. Signed By:03/31/251746 DD/ 43 TD/TT: Food Preparation Supervisor: us Jem Ambrosio NP [facility] Final Resul t documented in this encounter Visit Diagnoses Not on filedocumented in this encounter
--- OUTSIDE RECORDS SUMMARY | 2025-04-07 19:28 | XMS_ITS | CCD ---
Author Organization [facility] CliniSytn Care Team Providers Care Ticket Seller Name Role Phone RENAY OTOOLE Attending Unavailable [...] Pcp, No Pcp Primary Care Provider UnavailCHINYERE Mtahew Attending Unavailable SCOOBY ALVARADO Referring Unavailable NO [...] 1 capsule by mouth Daily 02/04/2024 Active Gsquvack-Ygq-Sq-FA ( 1 + IRON PO) (20 sources) Iizsbogn-Rkl-Da-FA ( 1 + IRON PO) Take by [...] applicable or unspecified; Translations: [MAT CARE OTH [place] FTL GRTH 3RD TM UNS] Onset: 08-08-2021 [...] US OB BPP W NON-STRESS on 03-31-2025 [place] [address] Ultrasound Report Signed Patient: PARIS MOSQUEDA MR#: [id number] : 1990 Acct:[id number] Age/Sex: 34 / F ADM Date: 03/31/25 Loc: US Attending Dr: Jem Ambrosio Ordering Physician: Jem Ambrosio Date of Service: 03/31/25 Procedure(s): US OB BPP w non-stress Accession Number(s): [id number] cc: Jem Ambrosio; [place] [address] Patient Name: PARIS MOSQUEDA MRN: [facility]:[id number] date: 1990 Sex: F Assigned Patient Location: [facility] Current Patient Location: Accession/Order Number: [id number] Exam Date: 03/31/2025 12:57 Report Date: 03/31/2025 17:44 At the request of: JEM AMBROSIO Procedure: US OB BPP w non-stress Ultrasound biophysical profile INDICATION: Gestational diabetes FINDINGS/ IMPRESSION: Cephalic position. 8/ 8 score biophysical profile. JEANNINE measures 7.9 cm which is borderline oligohydramnios. heart rate 152 beats per minutes. Impression dictated by: Nito Chong M.D. 03/31/2025 5:44 PM Dictation Location: [place] [address] Electronically authenticated by: [id number] Y Date: 03/31/2025 17:44 Dictated By: Nito Chong M.D. Signed By: 03/31/25 1747 DD/ 43 TD/TT: Machine Adjuster Helper: [facility] Radiology, Radiologist, - 03/31/2025 [place] [address] Ultrasound Report Signed Patient: PARIS MOSQUEDA MR#: [id number] : 1990 Acct:[id number] Age/Sex: 34 / F ADM Date: 03/31/25 Loc: US Attending Dr: Jem Ambrosio Ordering Physician: Jem Ambrosio Date of Service: 03/31/25 Procedure(s): US OB BPP w non-stress Accession Number(s): [id number] cc: Jem Ambrosio; [facility] The [place] [id number] Patient Name: PARIS MOSQUEDA MRN: [facility]:[id number] date: 1990 Sex: F Assigned Patient Location: [facility] Current Patient Location: Accession/Order Number: [id number] Exam Date: 03/31/2025 12:57 Report Date: 03/31/2025 17:44 At the request of: JEM AMBROSIO Procedure: US OB BPP w non-stress Ultrasound biophysical profile INDICATION: Gestational diabetes FINDINGS/ IMPRESSION: Cephalic position. 8/ 8 score biophysical profile. JEANNINE measures 7.9 cm which is borderline oligohydramnios. heart rate 152 beats per minutes. Impression dictated by: Nito Chong M.D. 03/31/2025 5:44 PM Dictation Location: [place] [address] Electronically authenticated by: [id number] Y Date: 03/31/2025 17:44 Dictated By: Nito Chong M.D. Signed By: 03/31/251746 DD/ 43 TD/TT: Machine Adjuster Helper: SHERLY [facility] Radiology Study observation (narrative) SHERLY [facility] US OB BPP W NON-STRESS Ordered By: Radiologist Radiology on 03-31-2025 SHERLY [facility], [facility] Work Phone: Urinalysis macro (dipstick) panel (U)on 03-24-2025 Bilirubin, UA Negative Negative - 4(70) +++ mg/dL [facility] Healthcare Blood, UA Negative Negative - 50 Celestino/mcL [facility] Clarity, UA Clear [facility] re Color, UA Yellow [facility] Glucose, UA Negative Negative - 1999(110) ++++ mg/dL [facility] Interpretation and review of laboratory results Abnormal [facility] Ketones, UA Negative Negative - 160(16) ++++ mg/dL [facility] Healthcare Leukocytes, UA Trace Negative - 500+++ Dodie/mcL [facility] Nitrite, UA Negative Negative - Positive [facility] Healthcare pH, UA 6 5 - 9 [facility] Protein, UA Trace Negative - 1999(20) ++++ mg/dL [facility] Healthcare Spec Grav, UA 1.02 1 - 1.03 [facility] Health care Urobilinogen, UA 2.0 0.2 - 12 mg/dL [facility] Healthcare [facility] Urinalysis macro (dipstick) panel (U)on 03-10-2025 Bilirubin, UA Positive Negative - 4(70) +++ mg/dL [facility] Blood, UA Positive Negative - 50 Celestino/mcL [facility] Clarity, UA Clear [facility] Color, UA Renita [facility] Glucose, UA Negative Negative - 1999(110) ++++ mg/dL [facility] Interpretation and review of laboratory results Abnormal [facility] Ketones, UA Positive Negative - 160(16) ++++ mg/dL [facility] Healthcare Leukocytes, UA Positive Negative - 500+++ Dodie/mcL [facility] Healthcare Nitrite, UA Negative Negative - Positive [facility] pH, UA 6 5 - 9 [facility] Protein, UA Positive Negative - 1999(20) ++++ mg/dL [facility] Spec Grav, UA 1.03 1 - 1.03 [facility] Urobilinogen, UA 1.0 0.2 - 12 mg/dL [facility] US [...] (Bld) 0.4 % 0.2 - 2.0 % [facility] Eosinophils/100 WBC (Bld) 1.5 % 0.9 - 7.0 % [facility] Erythrocyte distribution width (RBC) [Ratio] 15 % 11.0 - 15.0 % [facility] Hematocrit (Bld) [Volume fraction] 33.1 % Low 36.0 - 48.0 % [facility] Hemoglobin (Bld) [Mass/Vol] 10.6 g/dL Low 12.0 - 16.0 g/dL [facility] IMMATURE GRANULOCYTES ABS AUTO 0.05 High [facility] Immature granulocytes/100 WBC (Bld) 0.5 % 0.0 - 0.5 % [facility] Interpretation and review of laboratory results Abnormal [facility] LYMPHOCYTES ABSOLUTE AUTO 3 [facility] Lymphocytes/100 WBC (Bld) 31.1 % 20.5 - 60.0 % [facility] MCH (RBC) [Entitic mass] 25.4 pg Low 26.7 - 34.0 pg [facility] MCHC (RBC) [Mass/Vol] 32 g/dL 29.9 - 35.2 g/dL [facility] MCV (RBC) [Entitic vol] 79.2 fL Low 81.0 - 99.0 fL [facility] MONOCYTES ABSOLUTE AUTO 0.8 [facility] Monocytes/100 WBC (Bld) 8.4 % 1.7 - 12.0 % [facility] NEUTROPHILS ABSOLUTE AUTO 5.7 [facility] Neutrophils/100 WBC (Bld) 58.1 % 43.0 - 75.0 % [facility] Platelet mean volume (Bld) [Entitic vol] 10 fL 9.5 - 13.5 fL [facility] TBH EO # 0.2 [facility] PLT 279 [facility] RBC 4.18 Low [facility] TBH WBC 9.7 [facility] Urinalysis macro (dipstick) panel (U)on 02-02-2025 Bilirubin, UA Negative Negative - 4(70) +++ mg/dL [facility] Blood, UA Negative Negative - 50 Celestino/mcL [facility] Clarity, UA Clear [facility] re Color, UA Yellow [facility] e Glucose, UA Negative Negative - 1999(110) ++++ mg/dL [facility] Interpretation and review of laboratory results Abnormal [facility] Ketones, UA Positive Negative - 160(16) ++++ mg/dL [facility] Comment on above: Trace Leukocytes, UA Positive Negative - 500+++ Dodie/mcL [facility] Comment on above: Small Nitrite, UA Negative Negative - Positive [facility] pH, UA 6 5 - 9 [facility] Protein, UA Trace Negative - 1999(20) ++++ mg/dL [facility] Spec Grav, UA 1.03 1 - 1.03 [facility] Urobilinogen, UA 0.2 0.2 - 12 mg/dL [facility] OB LIMITED [...] Negative Negative - 4(70) +++ mg/dL [facility] Blood, UA Negative Negative - 50 Celestino/mcL [facility] Clarity, UA Clear [facility] Color, UA Yellow [facility] Glucose, UA Negative Negative - 1999(110) ++++ mg/dL [facility] Interpretation and review of laboratory results Normal [facility] Ketones, UA Negative Negative - 160(16) ++++ mg/dL [facility] Leukocytes, UA Negative Negative - 500+++ Dodie/mcL [facility] Nitrite, UA Negative Negative - Positive [facility] pH, UA 7 5 - 9 [facility] Protein, UA Trace Negative - 1999(20) ++++ mg/dL [facility] Spec Grav, UA 1.025 1 - 1.03 [facility] Urobilinogen, UA 0.2 0.2 - 12 mg/dL [facility] No Panel InformationOrdered By: Radiologist Radiology on 12-19-2024 [facility] Work Phone: No Panel Informationon 12-19 Radiology Study observation (narrative) [facility] US OB ANATOMYon 12-19-[address] [address] Ultrasound Report Signed Patient: PARIS MOSQUEDA MR#: [id number] : 1990 Acct:[id number] Age/Sex: 34 / F ADM Date: 12/19/24 Loc: US Attending Dr: Scooby Alvarado D.O. Ordering Physician: Scooby Alvarado D.O. Date of Service: 12/19/24 Procedure(s): US OB anatomy Accession Number(s): [id number] cc: [facility] ; Scooby Alvarado D.O. [address] [address] Patient Name: PARIS MOSQUEDA MRN: [id number] date: 1990 Sex: F Assigned Patient Location: US Current Patient Location: US Accession/Order Number: [id number] Exam Date: 12/19/2024 11:33 Report Date: 12/19/2024 [...] Evangelista M.D. 12/19/2024 11:39 AM Dictation Location: [place] [address] Electronically authenticated by: [id number] Y Date: 12/19/2024 11:39 Dictated By: Sarita Evangelista M.D. Signed By: 12/19/24 1142 DD/ 1139 TD/TT: Machine Adjuster Helper: [facility] Radiology, Radiologist, - 12/19/[address] [address] Ultrasound Report Signed Patient: PARIS MOSQUEDA MR#: [id number] : 1990 Acct:[id number] Age/Sex: 34 / F ADM Date: 12/19/24 Loc: US Attending Dr: Scooby Alvarado D.O. Ordering Physician: Scooby Alvarado D.O. Date of Service: 12/19/24 Procedure(s): US OB anatomy Accession Number(s): [id number] cc: [facility] ; Scooby Alvarado D.O. The [address] [address] Patient Name: PARIS MOSQUEDA MRN: [facility]:[id number] date: 1990 Sex: F Assigned Patient Location: US Current Patient Location: US Accession/Order Number: [id number] Exam Date: 12/19/2024 11:33 Report Date: 12/19/2024 [...] Evangelista M.D. 12/19/2024 11:39 AM Dictation Location: [place] [address] Electronically authenticated by: [id number] Y Date: 12/19/2024 11:39 Dictated By: Sarita Evangelista M.D. Signed By: 12/19/24 1142 DD/ 1139 TD/TT: Machine Adjuster Helper: [facility] OB CERVICAL LENGTHon 11-24 [place] [address] Ultrasound Report Signed Patient: PARIS MOSQUEDA MR#: [id number] : 1990 Acct:[id number] Age/Sex: 34 / F ADM Date: 12/19/24 Loc: US Attending Dr: Scooby Alvarado D.O. Ordering Physician: Scooby Alvarado D.O. Date of Service: 12/19/24 Procedure(s): US OB cervical length Accession Number(s): [id number] cc: [facility] ; Scooby Alvarado D.O. [address] [address] Patient Name: PARIS MOSQUEDA MRN: [id number] date: 1990 Sex: F Assigned Patient Location: US Current Patient Location: US Accession/Order Number: [id number] Exam Date: 12/19/2024 11:33 Report Date: 12/19/2024 11:39 At the request of: SOCOBY ALVARADO DO Procedure: US OB anatomy CLINICAL [...] Evangelista M.D. 12/19/2024 11:39 AM Dictation Location: [place] [address] Electronically authenticated by: [id number] Y Date: 12/19/2024 11:39 Dictated By: Sarita Evangelista M.D. Signed By: 12/19/24 1142 DD/ 1139 TD/TT: Machine Adjuster Helper: [facility] Radiology, Radiologist, - 12/19/[address] [address] Ultrasound Report Signed Patient: PARIS MOSQUEDA MR#: [id number] : 1990 Acct:[id number] Age/Sex: 34 / F ADM Date: 12/19/24 Loc: US Attending Dr: Scooby Alvarado D.O. Ordering Physician: Scooby Alvarado D.O. Date of Service: 12/19/24 Procedure(s): US OB cervical length Accession Number(s): [id number] cc: [facility] ; Scooby Alvarado D.O. [place] [id number] Patient Name: PARIS MOSQUEDA MRN: [id number] date: 1990 Sex: F Assigned Patient Location: US Current Patient Location: US Accession/Order Number: [id number] Exam Date: 12/19/2024 11:33 Report Date: 12/19/2024 [...] Evangelista M.D. 12/19/2024 11:39 AM Dictation Location: [place] [address] Electronically authenticated by: [id number] Y Date: 12/19/2024 11:39 Dictated By: Sarita Evangelista M.D. Signed By: 12/19/24 1142 DD/ 1139 TD/TT: Machine Adjuster Helper: [facility] IGP,APTIMA HPV,AGE GDLNon AGE GDLN ACOG TESTING Note . [facility] Comment on above: TESTS RESULT FLAG UN ITS REF RANGE LAB Clinician Provided Cytology Information Source.............Vagina Other.............. No. of containers..01 ThinPrep Vial Age Algo ACOG Karine... 30-65 01 FLAG LEGEND: L-Low Normal,H-High Normal,LL-Alert Low,HH-Alert High <-Panic Low,>-Panic High,A-Abnormal,AA-Critical Abnormal Performed at: 01 =G [address] [address] Cindy Pinzon MD, HPV APTIMA Negative Negative [facility] Comment on above: This nucleic acid am plification test detects fourteen high- risk HPV types (16,18,31,33,35,39,45,51,52,56,58,59,66,68) without differentiation. Performed at: =G - [facility] [id number] Mems Process Engineer: Cindy Pinzon MD, Phone: [phone] Performed at: - [facility] [id number] Mems Process Engineer: Cindy Pinzon MD, Phone: [phone] IGP, APTIMA HPV, RFX 16/18,45 Note . [facility] Comment on above: TESTS RESULT FLAG UN ITS REF RANGE LAB DIAGNOSIS: 02 NEGATIVE FOR INTRAEPITHELIAL LESION OR MALIGNANCY. Specimen adequacy: 02 Satisfactory for evaluation. No endocervical component is identified. Performed by: 02 Yanni Dela Cruz, Regulatory Law Specialist (ASCP) . 02 Note: Note 02 The [...] <-Panic Low,>-Panic High,A-Abnormal,AA-Critical Abnormal Performed at: [address] [address] Cindy Pinzon MD, SPATULA-ALONE VAGINA [facility] RECURRENT VAGINITIS (HTRX)on 12-06-2024 ATOPOBIUM VAGINAE 0 [facility] ATOPOBIUM VAGINAE Not detected [facility] BVAB 2,3 (BACTERIAL VAGINOSIS ASSOCIATED BACTERIA 2, 3); MOBILUNCUS SPP 0 [facility] BVAB 2,3 (BACTERIAL VAGINOSIS ASSOCIATED BACTERIA 2, 3); MOBILUNCUS SPP Not detected [facility] KENA ALBICANS, PARAPSILOSIS, TROPICALIS 0 [facility] Healthcare KENA ALBICANS, PARAPSILOSIS, TROPICALIS Not detected [facility] KENA GLABRATA 0 [facility] KENA GLABRATA Not detected [facility] KENA KRUSEI 0 [facility] Healt hcare KENA KRUSEI Not detected N[facility] CHLAMYDIA TRACHOMATIS 0 [facility] CHLAMYDIA TRACHOMATIS Not detected [facility] GARDNERELLA VAGINALIS 0 [facility] S Healthcare GARDNERELLA VAGINALIS Not detected [facility] MEGASPHAERA (TYPES 1, 2) 0 [facility] MEGASPHAERA (TYPES 1, 2) Not detected [facility] MYCOPLASMA GENITALIUM 0 [facility] MYCOPLASMA GENITALIUM Not detected [facility] NEISSERIA GONORRHOEAE 0 [facility] S Healthcare NEISSERIA GONORRHOEAE Not detected [facility] TRICHOMONAS VAGINALIS 0 [facility] S Healthcare TRICHOMONAS VAGINALIS Not detected [facility] Urinalysis macro (dipstick) panel (U)on 12-04-2024 Bilirubin, UA Negative Negative - 4(70) +++ mg/dL [facility] Blood, UA Negative Negative - 50 Celestino/mcL [facility] Clarity, UA Clear [facility] Healthme re Color, UA Yellow [facility] Glucose, UA Negative Negative - 2000(110) ++++ mg/dL [facility] Interpretation and review of laboratory results Normal [facility] Ketones, UA Negative Negative - 160(16) ++++ mg/dL [facility] Leukocytes, UA Positive Negative - 500+++ Dodie/mcL [facility] Comment on above: small Nitrite, UA Negative Negative - Positive [facility] pH, UA 7 5 - 9 [facility] Protein, UA Negative Negative - 1999(20) ++++ mg/dL [facility] Spec Grav, UA 1.015 1 - 1.03 [facility] Urobilinogen, UA 0.2 0.2 - 12 mg/dL [facility] Glucose random or fasting- P OCTOrdered By: James Rader on 11-24-2024 External Glucose Fasting Or Random (Fbs) 94 [facility] Urinalysis macro (dipstick) panel (U)on 11-13-2024 Bilirubin, UA Negative Negative - 4(70) +++ mg/dL [facility] Blood, UA Negative Negative - 50 Celestino/mcL [facility] Clarity, UA Clear [facility] re Color, UA Yellow [facility] Glucose, UA Negative Negative - 1999(110) ++++ mg/dL [facility] Interpretation and review of laboratory results Abnormal [facility] Ketones, UA Negative Negative - 160(16) ++++ mg/dL [facility] Leukocytes, UA Trace Negative - 500+++ Dodie/mcL [facility] Nitrite, UA Negative Negative - Positive [facility] pH, UA 6 5 - 9 [facility] Protein, UA Negative Negative - 1999(20) ++++ mg/dL [facility] Spec Grav, UA 1.01 1 - 1.03 [facility] Urobilinogen, UA 0.2 0.2 - 12 mg/dL [facility] BOX TESTon 11-11-2024 BOX TEST SENT OUT [employer] [facility] BOX[address] unity [facility] BOX2 11/11/24 [facility]_[employer] BOX [facility] HCG ( test) Ql (U)o n 10-16-2024 Interpretation and review of laboratory results Abnormal [facility] Preg Test, Ur Positive Negative [facility] care [facility] US OB [...] II, MD, PHD at 16-Oct-2024 11:21:08 PM [facility]-English Teleradiology Normal Not Available Comment on above: [...] II, MD, PHD at 16-Oct-2024 11:21:08 PM [facility]-PandaBedradiology IMAGING Ekaterina French MD - 10/16/2024 EXAM: [...] II, MD, PHD at 16-Oct-2024 11:21:08 PM All-English Purple Binderradiology [facility] Radiology Study observation (narrative) [facility] US Pelvis transvaginalOrdere d By: Ekaterina French on 10-16-2024 [facility] Work Phone: Urinalysis macro (dipstick) panel (U)on 10-16-2024 Bilirubin, UA Negative Negative - 4(70) +++ mg/dL [facility] Blood, UA Negative Negative - 50 Celestino/mcL [facility] Clarity, UA Clear [facility] re Color, UA Yellow [facility] Glucose, UA Negative Negative - 1999(110) ++++ mg/dL [facility] Interpretation and review of laboratory results Abnormal [facility] Ketones, UA Positive Negative - 160(16) ++++ mg/dL [facility] Comment on above: 80mg/dL Leukocytes, UA Positive Negative - 500+++ Dodie/mcL [facility] Comment on above: small Nitrite, UA Negative Negative - Positive [facility] pH, UA 5.5 5 - 9 [facility] Protein, UA Positive Negative - 1999(20) ++++ mg/dL [facility] Comment on above: 30mg/dL Spec Grav, UA 1.03 1 - 1.03 [facility] Urobilinogen, UA 0.2 0.2 - 12 mg/dL [facility] HGB AND HCTon 12-21-2023 Hematocrit (Bld) [Volume fraction] 28.7 % Low 35-47 [facility] Comment on above: Performed By: #### H H #### [facility] ([id number]) [address] [place] [address] Hemoglobin (Bld) [Mass/Vol] 9.8 g/dL Low 11.7-15.5 [facility] Comment on above: Performed By: #### H H #### [facility] ([id number]) [address] [place] [address] Surgical Pathologyon 024 Surgical Pathology Normal [facility] Comment on above: Result Comment: [facility] [address] [place] [address] Surgical Pathology Consultation Patient Name:SYDNIE MOSQUEDAB:1990 (Age: 33)Gender:FTaken:12/21/2023eported:12/28/2023hysician(s):Randy Greene MD ([phone])Copy To: Rec. #:[id number]: #[id number] Final Pathologic Diagnosis Products of conception; removal: Products of conception (gestational sac with immature chorionic villi) and fragments of decidua with acute inflammation and necrosis. Report Electronically Signed Out wacha/12/28/2023Pradeep Brannon MD [place] [address], License number: [id number]. Clinical History Spontaneous , miscarriage. Gross Description Received in formalin labeled PANDA Karyotype: No Aggregate measurement: 5.2 x 3.8 x 2.0 cm. Placenta: 3.4 x 2.8 x 1.5 cm Decidua/Clot: 1.8 x 1.0 x 0.5 cm Gestational Sac: Yes, intact Tissue: No Molar Tissue: No Cassettes: A-C placenta (3, ss, [id number],m5) DM Received fresh-no site on container. POC for routine surgical path. Per Ariana pierson/12/21/2023GR Specimen(s) Received Products of conception Fee Codes(s): 1; 23855 US PREG LESS THAN 14 WKS WIT [...] Monroy MD on 12/21/2023 8:46 AM Normal [facility] BASIC METABOLIC PANLon 12-19 Anion gap [Moles/Vol] 6 mmol/L Normal 5-15 [facility] Comment on above: Performed By: #### B CUCO CBCA, #### [facility] ([id number]) [address] [place] [address] Calcium [Mass/Vol] 8.9 mg/dL Normal 8.5-10.5 [facility] Comment on above: Performed By: #### B CUCO, CBCA, #### [facility] ([id number]) [address] [place] [address] Chloride [Moles/Vol] 105 mmol/L Normal 98-[address] [facility] Comment on above: Performed By: #### B CUCO, CBCA, #### [facility] ([id number]) [address] [place] [address] CO2 [Moles/Vol] 24 mmol/L Normal 22-32 [facility] Comment on above: Performed By: #### B CUCO, CBCA, #### [facility] ([id number]) [address] [place] [address] Creatinine [Mass/Vol] 0.74 mg/dL Normal 0.40-1.00 [facility] Comment on above: Result Comment: METH OD TRACEABLE TO IDMS STANDARD Performed By: #### B CHETAN NORWOOD, #### [facility] ([id number]) [address] [place] [address] eGFR (CKD-EPI) NON-RACE DEPENDENT >90 Normal >59 [facility] Comment on above: Result Comment: Reported eGFR is based on the CKD-EPI 2020 equation that does not use a race coefficient. Performed By: #### B CHETAN NORWOOD, #### [facility] ([id number]) [address] [place] [address] Glucose [Mass/Vol] 149 mg/dL High 65-99 [facility] Comment on above: Performed By: #### B CHETAN NORWOOD, #### [facility] ([id number]) [address] [place] [address] Potassium [Moles/Vol] 3.6 mmol/L Normal 3.5-5.0 [facility] Comment on above: Performed By: #### B CHETAN NORWOOD, #### [facility] ([id number]) [address] [place] [address] Sodium [Moles/Vol] 135 mmol/L Normal 134-146 [facility] Comment on above: Performed By: #### B CHETAN NORWOOD, #### [facility] ([id number]) [address] [place] [address] Urea nitrogen [Mass/Vol] 10 mg/dL Normal 5-23 [facility] Comment on above: Performed By: #### B CHETAN NORWOOD, #### [facility] ([id number]) [address] [place] [address] 81078 CBC AND AUTO DIFFon 12-20-19 24 ABSOLUTE BASOPHIL 0.0 X10E9/L Normal 0.0-0.2 [facility] Comment on above: Performed By: #### B MP, CBCA, #### [facility] ([id number]) [address] [place] [address] 78242 ABSOLUTE NEUTROPHIL 4.9 X10E9/L Normal 1.5-6.[address] [facility] Comment on above: Performed By: #### B MP, CBCA, #### [facility] ([id number]) [address] [place] [address] 09616 Basophils/100 WBC (Bld) 0.4 % Normal [facility] Comment on above: Performed By: #### B MP, CBCA, #### [facility] ([id number]) [address] [place] [address] 65182 Eosinophils (Bld) [#/Vol] 0.3 10*3/uL Normal 0.0-0.4 [facility] Comment on above: Performed By: #### B CUCO, CBCA, #### [facility] ([id number]) [address] [place] [address] 46948 Eosinophils/100 WBC (Bld) 2.3 % Normal [facility] Comment on above: Performed By: #### B MP, CBCA, #### [facility] ([id number]) [address] [place] [address] 23821 Erythrocyte distribution width (RBC) [Ratio] 13.8 % Normal 11.5-15.0 [facility] Comment on above: Performed By: #### B MP, CBCA, #### [facility] ([id number]) [address] [place] [address] 10995 Hematocrit (Bld) [Volume fraction] 34.8 % Low 35-47 [facility] Comment on above: Performed By: #### B CUCO CBCA, #### [facility] ([id number]) [address] [place] [address] 25332 Hemoglobin (Bld) [Mass/Vol] 11.5 g/dL Low 11.7-15.5 [facility] Comment on above: Performed By: #### B CUCO CBCA, #### [facility] ([id number]) [address] [place] [address] 58563 Lymphocytes (Bld) [#/Vol] 4.6 10*3/uL High 1.0-3.5 [facility] Comment on above: Performed By: #### B CUCO CBCA, #### [facility] ([id number]) [address] [place] [address] 45023 Lymphocytes/100 WBC (Bld) 41.7 % Normal [facility] Comment on above: Performed By: #### B CUCO CBCA, #### [facility] ([id number]) [address] [place] [address] 67131 MCH (RBC) [Entitic mass] 27.8 pg Normal 27-34 [facility] Comment on above: Performed By: #### B CUCO CBCA, #### [facility] ([id number]) [address] [place] [address] 50558 MCHC (RBC) [Mass/Vol] 33.0 g/dL Normal 32-36 [facility] Comment on above: Performed By: #### B CUCO CBCA, #### [facility] ([id number]) [address] [place] [address] 17903 MCV (RBC) [Entitic vol] 84 fL Normal 80-100 [facility] Comment on above: Performed By: #### B MP, CBCA, #### [facility] ([id number]) [address] [place] [address] 29360 Monocytes (Bld) [#/Vol] 1.2 10*3/uL High 0-0.9 [facility] Comment on above: Performed By: #### B MP, CBCA, #### [facility] ([id number]) [address] [place] [address] 34269 Monocytes/100 WBC (Bld) 11.1 % Normal [facility] Comment on above: Performed By: #### B MP, CBCA, #### [facility] ([id number]) [address] [place] [address] 45626 Neutrophils/100 WBC (Bld) 44.5 % Normal [facility] Comment on above: Performed By: #### B MP, CBCA, #### [facility] ([id number]) [address] [place] [address] 73267 Platelet mean volume (Bld) [Entitic vol] 7.6 fL Normal 7-12 [facility] Comment on above: Performed By: #### B MP, CBCA, #### [facility] ([id number]) [address] [place] [address] 07311 Platelets (Bld) [#/Vol] 323 10*3/uL Normal 150-450 [facility] Comment on above: Performed By: #### B MP, CBCA, #### [facility] ([id number]) [address] [place] [address] 36303 RBC COUNT 4.12 X10E12/L Normal 3.80-5.20 [facility] Comment on above: Performed By: #### B MP, CBCA, #### [facility] ([id number]) [address] [place] [address] 86485 WBC (Bld) [#/Vol] 11.0 10*3/uL Normal 4.0-11.0 [facility] Comment on above: Performed By: #### B CUCO, CBCA, #### [facility] ([id number]) [address] [place] [address] 10241 HCG.beta subunit IA 3rd IS Q non 12-20-2023 HCG.beta subunit Qn 5361 m[IU]/mL Normal [facility] Comment on above: Result Comment: NEW REFERENCE [...] B CUCO, CBCA, #### [facility] ([id number]) [address] [place] [address] 08191 HCG ( test) Ql (U)o n 12-19-2023 Beta HCG ( test) Ql (U) Positive Abnormal NEG [facility] Comment on above: Performed By: #### 2 106-3 #### [facility] ([id number]) [address] [place] [address] 36276 HCG.beta subunit IA 3rd IS Q non 12-19-2023 HCG.beta subunit Qn 6620 m[IU]/mL Normal [facility] Comment on above: Result Comment: NEW REFERENCE [...] #### 2 0415-6 #### [facility] ([id number]) [address] [place] [address] 30016 URN MACROSCOPIC NURon 2023 BILIRUBIN NIKITA Small Abnormal NEG [facility] Comment on above: Performed By: #### N UM #### [facility] ([id number]) [address] [place] [address] 24433 BLOOD/HGB NIKITA Large Abnormal NEG [facility] Comment on above: Performed By: #### N UM #### [facility] ([id number]) [address] [place] [address] 15442 GLUCOSE NIKITA Negative Normal NEG [facility] Comment on above: Performed By: #### N UM #### [facility] ([id number]) [address] [place] [address] 27802 KETONES NIKITA Trace Abnormal NEG [facility] Comment on above: Performed By: #### N UM #### [facility] ([id number]) [address] [place] [address] LEUKOCYTE ESTERASE NIKITA Negative Normal NEG [facility] Comment on above: Performed By: #### N UM #### [facility] ([id number]) [address] [place] [address] 27534 NITRITE NIKITA Negative Normal NEG [facility] Comment on above: Performed By: #### N UM #### [facility] ([id number]) [address] [place] [address] 54813 PH NIKIAT 6.0 Normal 5.0-8.5 [facility] Comment on above: Performed By: #### N UM #### [facility] ([id number]) [address] [place] [address] 75955 PROTEIN NIKITA 100 mg/dL Abnormal NEG [facility] Comment on above: Performed By: #### N UM #### [facility] ([id number]) [address] [place] [address] 23043 SPECIFIC GRAVITY NIKITA >=1.030 Normal 1.003-1.035 [facility] Comment on above: Performed By: #### N UM #### [facility] ([id number]) [address] [place] [address] 74946 UROBILINOGEN NIKITA 1.0 eu/dL Normal <1.1 [facility] Comment on above: Performed By: #### N UM #### [facility] ([id number]) [address] [place] [address] 55611 US PREG LESS THAN 14 WKS WIT [...] Overton MD on 12/19/2023 6:46 PM [facility] Chlamydia/GC/Trich NAAon Chlamydia Trachomotis, CARLITOS Negative Normal Negative [facility] Comment on above: Performed By: #### C UU #### [address] #### GCCHLAMTRI #### [facility] , Neisseria Gonorrhoeae, CARLITOS Negative Normal Negative [facility] Comment on above: Performed By: #### C UU #### [facility] [address] [place] [address] #### GCCHLAMTRI #### [facility] , Trichomonas CARLITOS Negative Normal Negative [facility] Comment on above: Result Comment: Perf ormed at: =G - [facility] [address] [id number] Mems Process Engineer: Cindy Pinzon MD, Phone: [phone] PERFORMED BY: [place] [address]GE BROOKLYNN PEARCE M.D. Performed By: #### C UU #### [address] [place] [address] [place] #### GCCHLAMTRI #### [facility] , Urine Cultureon 03-01-2022 Bacteria identified Cx Nom (U) 30,000 colonies/ml mixed bacterial skin contaminants 2 Days PERFORMED BY: [address] [place] [address]GE BROOKLYNN PEARCE M.D. Normal [facility] Comment on above: Performed By: #### C UU #### [facility] [address] [place] [address] #### GCCHLAMTRI #### [facility] , Pap IG,rfx Aptima HPV all pt hon 11-16-[address] [facility] Comment on above: Performed By: #### H IV12 #### [facility] [address] [place] [address] Andriy Stein DIAGNOSIS: Comment Normal [facility] Comment on above: Result Comment: NEGA TIVE FOR INTRAEPITHELIAL LESION OR MALIGNANCY. THIS SPECIMEN WAS RESCREENED PART OF OUR SOFTWARE TECHNICAL LEAD PROGRAM. Performed By: #### H IV12 #### [facility] [address] [place] [address] Andriy Stein Methodology: Comment [facility] Comment on above: Result Comment: This liquid based ThinPrep(R) pap test was screened with the use of an image guided system. Performed By: #### H IV12 #### [facility] [address] [place] [address] Andriy Stein Note: Comment [facility] Comment on above: Result Comment: The Pap smear is a screening test designed to aid in the detection of premalignant and malignant conditions of the uterine cervix. It is not a diagnostic procedure and should not be used as the sole means of detecting cervical cancer. Both false-positive and false-negative reports do occur. . Performed By: #### H IV12 #### [facility] [address] [place] [address] Andriy Stein Performed by: Comment Normal [facility] Comment on above: Result Comment: Nathalia Dela Cruz, Wildlife And Game Protector (ASCP) Performed By: #### H IV12 #### [facility] [address] [place] [address] Andriy Sarita QC reviewed by: Comment Normal [facility] Comment on above: Result Comment: Hebert Motley, Supervisory Wildlife And Game Protector (ASCP) Performed By: #### H IV12 #### [facility] [address] [place] [address] Andriy Sarita Reflex Criteria: Comment Normal [facility] Comment on above: Result Comment: The HPV DNA reflex criteria were not met with this specimen result therefore, no HPV testing was performed. . Performed By: #### H IV12 #### [facility] [address] [place] [address] Andriy Sarita Specimen adequacy: Comment Normal [facility] Comment on above: Result Comment: Sati sfactory for evaluation. Endocervical and/or squamous metaplastic cells (endocervical component) are present. Performed By: #### H IV12 #### [facility] [address] [place] [address] Andriy Sarita CBC AUTO DIFFon 07-31-2021 BASO # 0.0 103/ul Normal 0.0-0.1 [facility] Comment on above: Performed By: #### H IV12 #### [facility] [address] [place] [address] Andriy Sarita Basophils/100 WBC (Bld) 0.2 % Normal 0.2-2.[address] [facility] Comment on above: Performed By: #### H IV12 #### [facility] [address] [place] [address] Andriy Sarita EO # 0.2 103/ul Normal 0.0-0.7 [facility] Comment on above: Performed By: #### H IV12 #### [facility] [address] [place] [address] Andriy Sarita Eosinophils/100 WBC (Bld) 1.4 % Normal 0.9-7.0 [facility] Comment on above: Performed By: #### H IV12 #### [facility] [address] [id number] Andriy Sarita Erythrocyte distribution width (RBC) [Ratio] 16.9 % Critically high 11.0-15.0 [facility] Comment on above: Performed By: #### H IV12 #### [facility] [address] [address] Andriy Sarita Hematocrit (Bld) [Volume fraction] 28.9 % Critically low 36.0-48.0 [facility] Comment on above: Performed By: #### H IV12 #### [facility] [address] [place] [address] Andriy Sarita Hemoglobin (Bld) [Mass/Vol] 9.2 g/dL Critically low 12.0-16.0 [facility] Comment on above: Result Comment: NUVIA ENT DELIVERED Performed By: #### H IV12 #### [facility] [address] [place] [address] Andriy Sarita IG # 0.07 10e3/ul Critically high 0.00-0.03 [facility] Comment on above: Performed By: #### H IV12 #### [facility] [address] [place] [address] Andriy Sarita IG % 0.7 % Critically high 0.0-0.5 [facility] Comment on above: Performed By: #### H IV12 #### [facility] [address] [place] [address] Andriy Sarita LYMPH # 3.2 103/ul Normal 1.2-3.8 [facility] Comment on above: Performed By: #### H IV12 #### [facility] [address] [place] [address] Andriy Sarita Lymphocytes/100 WBC (Bld) 29.7 % Normal 20.5-60.0 [facility] Comment on above: Performed By: #### H IV12 #### [facility] [address] [place], [place] [id number] Andriy Sarita MANUAL DIFF REQ NO Normal [facility] Comment on above: Performed By: #### H IV12 #### [facility] [address] [place], [place] [address] Andriylogan Stein MCH (RBC) [Entitic mass] 28.0 pg Normal 26.7-34.0 [facility] Comment on above: Performed By: #### H IV12 #### [facility] [address] [phone] Andriy Stein MCHC (RBC) [Mass/Vol] 31.8 g/dL Normal 29.9-35.2 [facility] Comment on above: Performed By: #### H IV12 #### [facility] [address] [id number] Andriylogan Stein MCV (RBC) [Entitic vol] 87.8 fL Normal 81.0-99.[address] [facility] Comment on above: Performed By: #### H IV12 #### [facility] [address] [place] [address] Andriylogan Stein MONO # 0.9 103/ul Critically high 0.3-0.8 [facility] Comment on above: Performed By: #### H IV12 #### [facility] [address] [place], [place] [id number] Andriylogan Stein Monocytes/100 WBC (Bld) 8.3 % Normal 1.7-12.[address] [facility] Comment on above: Performed By: #### H IV12 #### [facility] [address] [place], [place] [id number] Andriy Stein NEUT # 6.3 103/ul Normal 1.4-6.5 [facility] Comment on above: Performed By: #### H IV12 #### [facility] [address] [place], [place] [id number] Andriy Sarita Neutrophils/100 WBC (Bld) 59.7 % Normal 43.0-75.0 [facility] Comment on above: Performed By: #### H IV12 #### [facility] [address] [place], [place] [id number] Andriylogan Stein Platelet mean volume (Bld) [Entitic vol] 9.7 fL Normal 9.5-13.5 [facility] Comment on above: Performed By: #### H IV12 #### [facility] [address] [place], [place] [address] Andriy Stein PLT 173 103/ul Normal 150-450 [facility] Comment on above: Performed By: #### H IV12 #### [facility] [address] [place], [place] [address] Andriy Stein RBC 3.29 106/ul Critically low 4.20-5.40 [facility] Comment on above: Performed By: #### H IV12 #### [facility] [address] [place], [place] [address] Andriy Stein WBC 10.6 103/ul Normal 4.0-11.0 [facility] Comment on above: Performed By: #### H IV12 #### [facility] [address] [place] [address] Andriy Stein ASYMPTOMATIC COVID-19 ANTIGE Non 07-30-2021 EUA Statement SEE BELOW Normal [facility] Comment on above: Result Comment: [...] sooner. Performed By: #### H BSANS #### [facility] [address] [place] [address] Andriy Stein SARS-CoV-2 (COVID-19) RNA CARLITOS+probe Ql (Unsp spec) Negative Normal NEGATIVE [facility] Comment on above: Result Comment: Nega tive results are presumptive. They do not preclude infection and should not be used as the sole basis for treatment decisions. Additional confirmatory testing by a molecular method should be considered. Performed By: #### H BSANS #### [facility] [address] [place], [place] [address] Andriy Stein CBC AUTO DIFFon 07-30-2021 BASO # 0.0 103/ul Normal 0.0-0.1 [facility] Comment on above: Performed By: #### C BC ####[facility] [address] [address]Dr. Chelsiebriana Conner Basophils/100 WBC (Bld) 0.2 % Normal 0.2-2.[address] [facility] Comment on above: Performed By: #### C BC ####[facility] [address] [address]Dr. Chelsiebriana Conner EO # 0.1 103/ul Normal 0.0-0.7 [facility] Comment on above: Performed By: #### C BC ####[facility] [address] [address]Dr. Sunil Conner Eosinophils/100 WBC (Bld) 1.0 % Normal 0.9-7.0 [facility] Comment on above: Performed By: #### C BC ####[facility] [address] [place], [place] [address]Dr. Sunil Conner Erythrocyte distribution width (RBC) [Ratio] 17.0 % Critically high 11.0-15.0 [facility] Comment on above: Performed By: #### C BC ####[facility] [address] [address]Dr. Sunil Conner Hematocrit (Bld) [Volume fraction] 37.5 % Normal 36.0-48.0 [facility] Comment on above: Performed By: #### C BC ####[facility] [address] [place], [place] [address]Dr. Sunil Conner Hemoglobin (Bld) [Mass/Vol] 12.3 g/dL Normal 12.0-16.0 [facility] Comment on above: Performed By: #### C BC ####[facility] [address] [place], [place] [address]Dr. Sunil Conner IG # 0.05 10e3/ul Critically high 0.00-0.03 [facility] Comment on above: Performed By: #### C BC ####[facility] [address] [address]DrWilson Sunil Conner IG % 0.5 % Normal 0.0-0.5 [facility] Comment on above: Performed By: #### C BC ####[facility] [address] [address]DrWilson Sunil Ubaldo LYMPH # 2.8 103/ul Normal 1.2-3.8 [facility] Comment on above: Performed By: #### C BC ####[facility] [address] [address]DrWilson Sunil Ubaldo Lymphocytes/100 WBC (Bld) 28.4 % Normal 20.5-60.0 [facility] Comment on above: Performed By: #### C BC ####[facility] [address] [place], [place] [address]DrWilson Chelsiebriana Conner MANUAL DIFF REQ NO Normal [facility] Comment on above: Performed By: #### C BC ####[facility] [address] [address]Dr. Sunil Ubaldo MCH (RBC) [Entitic mass] 28.5 pg Normal 26.7-34.0 [facility] Comment on above: Performed By: #### C BC ####[facility] [address] [place], [place] [address]Dr. Sunil Ubaldo MCHC (RBC) [Mass/Vol] 32.8 g/dL Normal 29.9-35.2 [facility] Comment on above: Performed By: #### C BC ####[facility] [address] [place], [place] [address]DrWilson Sunil Ubaldo MCV (RBC) [Entitic vol] 86.8 fL Normal 81.0-99.[address] [facility] Comment on above: Performed By: #### C BC ####[facility] [address] [place], [place] [address]DrWilson Conner MONO # 0.8 103/ul Normal 0.3-0.8 [facility] Comment on above: Performed By: #### C BC ####[facility] [address] [address]Dr. Sunil Conner Monocytes/100 WBC (Bld) 7.9 % Normal 1.7-12.[address] [facility] Comment on above: Performed By: #### C BC ####[facility] [address] [address]Dr. Sunil Conner NEUT # 6.0 103/ul Normal 1.4-6.5 [facility] Comment on above: Performed By: #### C BC ####[facility] [address] [address]Dr. Sunil Conner Neutrophils/100 WBC (Bld) 62.0 % Normal 43.0-75.0 [facility] Comment on above: Performed By: #### C BC ####[facility] [address] [place], [place] [address]Dr. Sunil Conner Platelet mean volume (Bld) [Entitic vol] 10.2 fL Normal 9.5-13.5 [facility] Comment on above: Performed By: #### C BC ####[facility] [address] [place], [place] [address]Dr. Sunil Conner PLT 207 103/ul Normal 150-450 [facility] Comment on above: Performed By: #### C BC ####[facility] [address] [address]Dr. Sunil Conner RBC 4.32 106/ul Normal 4.20-5.40 [facility] Comment on above: Performed By: #### C BC ####[facility] [address] [id number]. Sunil Conner WBC 9.7 103/ul Normal 4.0-11.0 [facility] Comment on above: Performed By: #### C BC ####[facility] [address] [address]Dr. Sunil Conner DRUG SCREEN RAPID (URINE)on 07-30-2021 AMP Negative Normal NEGATIVE [facility] Comment on above: Performed By: #### D RUGRPD ####[facility] [address] [address]Dr. Sunil Conner BAR Negative Normal NEGATIVE [facility] Comment on above: Performed By: #### D RUGRPD ####[facility] [address] [address]Dr. Sunil Conner BUP Negative Normal NEGATIVE [facility] Comment on above: Performed By: #### D RUGRPD ####[facility] [address] [place], [place] [address]Dr. Sunil Conner BZO Negative Normal NEGATIVE [facility] Comment on above: Performed By: #### D RUGRPD ####[facility] [address] [place], [place] [address]Dr. Sunil Conner TAMICA Negative Normal NEGATIVE [facility] Comment on above: Performed By: #### D RUGRPD ####[facility] [address] [place], [place] [address]Dr. Sunil Conner CUT-OFFS SEE BELOW Normal [facility] Comment on above: Result Comment: AMP (Amphetamine): 500ng/mL, BAR (Barbituates): 200 ng/mL, BZO (Benzodiazepines): 150 ng/mL, BUP (Buprenorphine): 10 ng/mL, TAMICA (Cocaine): 150 ng/mL, mAMP (Methamphetamine): 500 ng/mL, MTD (Methadone): 200 ng/mL, OPI (Opiates): 100 ng/mL, OXY (Oxycodone): 100 ng/mL, PCP (Phencyclidine): 25 ng/mL, PPX (Propoxyphene): 300 ng/mL, THC (Cannabinoids): 50 ng/mL, TCA (Trycyclic Antidepressants): 300 ng/mL Performed By: #### D RUGRPD ####[facility] [address] [place], [place] [address]Dr. Sunil Conner DRUG CUT HEADER DRUG CLASS TEST SYSTEM CUT-OFF CONCENTRATIONS ARE FOLLOWS: Normal [facility] Comment on above: Performed By: #### D RUGRPD ####[facility] [address] [place], [place] [address]Dr. Sunil Conner mAMP Negative Normal NEGATIVE [facility] Comment on above: Performed By: #### D RUGRPD ####[facility] [address] [place] [id number]. Sunil Conner MTD Negative Normal NEGATIVE [facility] Comment on above: Performed By: #### D RUGRPD ####[facility] [address] [place] [id number]. Sunil Conner OPI Negative Normal NEGATIVE [facility] Comment on above: Performed By: #### D RUGRPD ####[facility] [address] [place] [address]Dr. Sunil Conner OXY Negative Normal NEGATIVE [facility] Comment on above: Performed By: #### D RUGRPD ####[facility] [address] [place] [address]Dr. Sunil Ubaldo PCP Negative Normal NEGATIVE [facility] Comment on above: Performed By: #### D RUGRPD ####[facility] [address] [place] [address]Dr. Sunil Conner PPX Negative Normal NEGATIVE [facility] Comment on above: Performed By: #### D RUGRPD ####[facility] [address] [place] [address]Dr. Sunil Conner TCA Negative Normal NEGATIVE [facility] Comment on above: Performed By: #### D RUGRPD ####[facility] [address] [place] [address]Dr. Sunil Ubaldo THC Negative Normal NEGATIVE [facility] Comment on above: Performed By: #### D RUGRPD ####[facility] [address] [place] [address]Dr. Sunil Conner TYPE AND SCREENon 07-30-2021 TYPE AND SCREEN Negative Normal [facility] Comment on above: Performed By: #### T NS #### [facility] [address] [address] [address] Sunil Conner US PREG BIOPHY W [...] NADIA DOOLEY Date: 2021-07-13 10:[address] [facility] US PREG GROWTHon 07-11-2021 US PREG [...] EFW: 6 lbs. 3 oz., 37% FL/AC: 0.811890 FL/BPD: 0.300342 HC/AC: 0.394324 GESTATIONAL AGE: Age by EDC: 36 weeks 4 days FAHEEM by EDC: 08/04/2021 Age by US: 35 weeks 3 days FAHEEM by US: 08/12/2021 IMPRESSION: Normal interval growth Electronically authenticated by: NADIA DOOLEY Date: 2021-07-11 10:[address] [facility] COVID Quick Testingon 2021 Result Negative SocialRep Other Quick Strepon 07-09-2021 S. pyogenes Org specific cx Ql (Throat) Negative Qraved Other Quick Strep Social[employer] Other GROUP B STREP CULTUREon 06-25 S. agalactiae Ag Ql (Unsp spec) Culture Observations: NEGATIVE FOR GROUP B STREPTOCOCCUS. Normal [facility] Comment on above: Performed By: #### G BSCX #### [facility] [address] [address] [address] Sunil Conner PREG GROWTHon 06-20-2021 US [...] EFW: 4 lbs. 14 oz., 53% FL/AC: 0.178815 FL/BPD: 0.300083 HC/AC: 1.198042 GESTATIONAL AGE: Age by EDC: 33 weeks 4 days FAHEEM by EDC: 08/04/2021 Age by US: 33 weeks 1 day FAHEEM by US: 08/07/2021 IMPRESSION: Normal interval growth Electronically authenticated by: NADIA DOOLEY Date: 2021-06-20 11:46 Normal [facility] CBC AUTO DIFFon 06-08-2021 BASO # 0.0 103/ul Normal 0.0-0.1 [facility] Comment on above: Performed By: #### H IV12 #### [facility] [address] [place] [address] Andriy Sarita Basophils/100 WBC (Bld) 0.5 % Normal 0.2-2.0 [facility] Comment on above: Performed By: #### H IV12 #### [facility] [address] [place], [place] [id number] Andriy Sarita EO # 0.1 103/ul Normal 0.0-0.7 [facility] Comment on above: Performed By: #### H IV12 #### [facility] [address] [place], [place] [id number] Andriy Sarita Eosinophils/100 WBC (Bld) 1.3 % Normal 0.9-7.0 [facility] Comment on above: Performed By: #### H IV12 #### [facility] [address] [place] [address] Andriy Stein Erythrocyte distribution width (RBC) [Ratio] 19.8 % Critically high 11.0-15.0 [facility] Comment on above: Performed By: #### H IV12 #### [facility] [address] [place] [address] Andriy Stein Hematocrit (Bld) [Volume fraction] 34.9 % Critically low 36.0-48.0 [facility] Comment on above: Performed By: #### H IV12 #### [facility] [address] [place] [address] Andriy Stein Hemoglobin (Bld) [Mass/Vol] 11.1 g/dL Critically low 12.0-16.0 [facility] Comment on above: Performed By: #### H IV12 #### [facility] [address] [place] [address] Andriylogan Stein IG # 0.04 10e3/ul Critically high 0.00-0.03 [facility] Comment on above: Performed By: #### H IV12 #### [facility] [address] [place] [address] Andriylogan Stein IG % 0.5 % Normal 0.0-0.5 [facility] Comment on above: Performed By: #### H IV12 #### [facility] [address] [place] [address] Andriy Sarita LYMPH # 2.1 103/ul Normal 1.2-3.8 [facility] Comment on above: Performed By: #### H IV12 #### [facility] [address] [place] [address] Andriy Sarita Lymphocytes/100 WBC (Bld) 24.8 % Normal 20.5-60.0 [facility] Comment on above: Performed By: #### H IV12 #### [facility] [address] [place] [address] Andriy Stein MANUAL DIFF REQ NO Normal [facility] Comment on above: Performed By: #### H IV12 #### [facility] [address] [place], [place] [id number] Andriy Stein MCH (RBC) [Entitic mass] 27.5 pg Normal 26.7-34.0 [facility] Comment on above: Performed By: #### H IV12 #### [facility] [address] [place], [place] [id number] Andriy Stein MCHC (RBC) [Mass/Vol] 31.8 g/dL Normal 29.9-35.2 [facility] Comment on above: Performed By: #### H IV12 #### [facility] [address] [place], [place] [id number] Andriy Stein MCV (RBC) [Entitic vol] 86.6 fL Normal 81.0-99.[address] [facility] Comment on above: Performed By: #### H IV12 #### [facility] [address] [place] [address] Andriy Rodgersen MONO # 0.7 103/ul Normal 0.3-0.8 [facility] Comment on above: Performed By: #### H IV12 #### [facility] [address] [place] [address] Andriy Stein Monocytes/100 WBC (Bld) 8.7 % Normal 1.7-12.[address] [facility] Comment on above: Performed By: #### H IV12 #### [facility] [address] [place] [address] Andriy Stein NEUT # 5.4 103/ul Normal 1.4-6.5 [facility] Comment on above: Performed By: #### H IV12 #### [facility] [address] [place], [place] [id number] Andriy Stein Neutrophils/100 WBC (Bld) 64.2 % Normal 43.0-75.0 [facility] Comment on above: Performed By: #### H IV12 #### [facility] [address] [place], [place] [id number] Andriy Stein Platelet mean volume (Bld) [Entitic vol] 9.9 fL Normal 9.5-13.5 [facility] Comment on above: Performed By: #### H IV12 #### [facility] [address] [place], [place] [address] Andriy Rodgersen PLT 232 103/ul Normal 150-450 [facility] Comment on above: Performed By: #### H IV12 #### [facility] [address] [id number] Andriy Sarita RBC 4.03 106/ul Critically low 4.20-5.40 [facility] Comment on above: Performed By: #### H IV12 #### [facility] [address] [place], [place] [address] Andriy Sarita WBC 8.5 103/ul Normal 4.0-11.0 [facility] Comment on above: Performed By: #### H IV12 #### [facility] [address] [id number] Andriy Stein GTT 3 HR PREGon 04-30-2021 Glucose [Mass/Vol] 85 mg/dL Normal 74-106 [facility] Comment on above: Performed By: #### G TT3P ####[facility] [address] [place] [address]Dr. Yilan Conner Glucose [Mass/Vol] 188 mg/dL Normal [facility] Comment on above: Performed By: #### G TT3P ####[facility] [address] [place] [address]Dr. Yilan Conner Glucose [Mass/Vol] 133 mg/dL Normal [facility] Comment on above: Performed By: #### G TT3P ####[facility] [address] [place] [address]Dr. Yilan Conner Glucose [Mass/Vol] 122 mg/dL Normal [facility] Comment on above: Performed By: #### G TT3P ####[facility] [address] [place] [address]Dr. Yilan Conner CBC AUTO DIFFon 04-28-2021 BASO # 0.0 103/ul Normal 0.0-0.1 [facility] Comment on above: Performed By: #### C BC #### [facility] [address] [address] [address] Sunil Conner Basophils/100 WBC (Bld) 0.3 % Normal 0.2-2.[address] [facility] Comment on above: Performed By: #### C BC #### [facility] [address] [address] [address] Sunil Conner EO # 0.1 103/ul Normal 0.0-0.7 [facility] Comment on above: Performed By: #### C BC #### [facility] [address] [address] [address] Sunil Conner Eosinophils/100 WBC (Bld) 1.2 % Normal 0.9-7.0 [facility] Comment on above: Performed By: #### C BC #### [facility] [address] [place] [address] Dr. Sunil Conner Erythrocyte distribution width (RBC) [Ratio] 14.6 % Normal 11.0-15.0 [facility] Comment on above: Performed By: #### C BC #### [facility] [address] [place] [address] Dr. Sunil Conner Hematocrit (Bld) [Volume fraction] 31.6 % Critically low 36.0-48.0 [facility] Comment on above: Performed By: #### C BC #### [facility] [address] [place] [address] Dr. Sunil Conner Hemoglobin (Bld) [Mass/Vol] 9.9 g/dL Critically low 12.0-16.0 [facility] Comment on above: Performed By: #### C BC #### [facility] [address] [address] [address] Sunil Conner IG # 0.05 10e3/ul Critically high 0.00-0.03 [facility] Comment on above: Performed By: #### C BC #### [facility] [address] [address] [address] Sunil Conner IG % 0.5 % Normal 0.0-0.5 [facility] Comment on above: Performed By: #### C BC #### [facility] [address] [address] [address] Sunil Conner LYMPH # 2.4 103/ul Normal 1.2-3.8 [facility] Comment on above: Performed By: #### C BC #### [facility] [address] [place] [address] Dr. Sunil Conner Lymphocytes/100 WBC (Bld) 25.6 % Normal 20.5-60.0 [facility] Comment on above: Performed By: #### C BC #### [facility] [address] [place] [address] Dr. Sunil Conner MANUAL DIFF REQ NO Normal [facility] Comment on above: Performed By: #### C BC #### [facility] [address] [place] [address] Dr. Sunil Conner MCH (RBC) [Entitic mass] 25.8 pg Critically low 26.7-34.0 [facility] Comment on above: Performed By: #### C BC #### [facility] [address] [place] [address] Dr. Sunil Conner MCHC (RBC) [Mass/Vol] 31.3 g/dL Normal 29.9-35.2 [facility] Comment on above: Performed By: #### C BC #### [facility] [address] [place] [address] Dr. Sunil Conner MCV (RBC) [Entitic vol] 82.3 fL Normal 81.0-99.[address] [facility] Comment on above: Performed By: #### C BC #### [facility] [address] [place] [address] Dr. Sunil Conner MONO # 0.5 103/ul Normal 0.3-0.8 [facility] Comment on above: Performed By: #### C BC #### [facility] [address] [place] [address] Dr. Sunil Conner Monocytes/100 WBC (Bld) 5.3 % Normal 1.7-12.[address] [facility] Comment on above: Performed By: #### C BC #### [facility] [address] [place] [address] Dr. Sunil Conner NEUT # 6.4 103/ul Normal 1.4-6.5 [facility] Comment on above: Performed By: #### C BC #### [facility] [address] [place] [address] Dr. Sunil Conner Neutrophils/100 WBC (Bld) 67.1 % Normal 43.0-75.0 [facility] Comment on above: Performed By: #### C BC #### [facility] [address] [place] [address] Dr. Sunil Conner Platelet mean volume (Bld) [Entitic vol] 10.3 fL Normal 9.5-13.5 [facility] Comment on above: Performed By: #### C BC #### [facility] [address] [place] [address] Dr. Sunil Conner PLT 255 103/ul Normal 150-450 [facility] Comment on above: Performed By: #### C BC #### [facility] [address] [place] [address] Dr. Sunil Conner RBC 3.84 106/ul Critically low 4.20-5.40 [facility] Comment on above: Performed By: #### C BC #### [facility] [address] [place] [address] Dr. Sunil Conner WBC 9.5 103/ul Normal 4.0-11.0 [facility] Comment on above: Performed By: #### C BC #### [facility] [address] [place] [address] Dr. Sunil Conner GLUCOSE - 1HRon 04-28-2021 Glucose [Mass/Vol] 171 mg/dL Critically high 74-[address] [facility] Comment on above: Performed By: #### H IV12 #### [facility] [address] [place] [address] Andriy Sarita VAGINITIS/VAGINOSIS DNA PROB Douglas 04-21-2021 Kena species Positive Abnormal Negative [facility] Comment on above: Performed By: #### V AGINT #### [facility] [address] [address] [address] Sunil Conner Gardnerella vaginalis Negative Normal Negative [facility] Comment on above: Performed By: #### V AGINT #### [facility] [address] [address] [address] Sunil Conner Trichomonas vaginalis Negative Normal Negative [facility] Comment on above: Performed By: #### V AGINT #### [facility] [address] [address] [address] Sunil Conner US PREG ANATOMY SINGLEon [...] weeks 3 days EFW:12 ounces, 47%; FL/AC: 0.568605 FL/BPD: 0.858940 HC/AC: 1.020504 GESTATIONAL AGE: Age by EDC: 20 weeks 4 days FAHEEM by EDC: 08/04/2021 Age by current US: 20 weeks 2 days FAHEEM by current US: 08/06/2021 IMPRESSION: Normal anatomy scan *Reference: [employer] Practice Guideline for the performance of Obstetric Ultrasound Examinations, March 25, 2007. Electronically authenticated by: NADIA DOOLEY Date: 2021-03-21 16:[address] [facility] PAP ACOG PANEL 3: 21 to 29on 02-21-2021 . . Normal [facility] Comment on above: Result Comment: Perf ormed at: WB Performed By: #### H IV12 #### [facility] [address] [place] [address] Andriy Stein Age Gdln ACOG Testing 21-[address] [facility] Comment on above: Performed By: #### H IV12 #### [facility] [address] [address] Andriy Stein Chlamydia, Nuc. Acid Amp Negative Normal Negative [facility] Comment on above: Result Comment: Perf ormed at: =G Performed By: #### H IV12 #### [facility] [address] [place] [address] Andriy Stein DIAGNOSIS: Comment Abnormal [facility] Comment on above: Result Comment: EPIT HELIAL CELL ABNORMALITY. LOW-GRADE SQUAMOUS INTRAEPITHELIAL LESION (LSIL); MILD DYSPLASIA. Performed at: WB Performed By: #### H IV12 #### [facility] [address] [place] [address] Andriy Stein Electronically signed by: Comment Normal [facility] Comment on above: Result Comment: Mayela العلي MD, Pathologist Performed at: WB Performed By: #### H IV12 #### [facility] [address] [place] [address] Andriy Stein Gonococcus, Nuc. Acid Amp Negative Normal Negative [facility] Comment on above: Result Comment: Perf ormed at: =G Performed By: #### H IV12 #### [facility] [address] [place] [address] Andriy Stein Methodology: Comment Normal [facility] Comment on above: Result Comment: This liquid based ThinPrep(R) pap test was screened with the use of an image guided system. Performed at: WB Performed By: #### H IV12 #### [facility] [address] [place] [address] Andriy Stein Note: Comment Normal [facility] Comment on above: Result Comment: [...] WB Performed By: #### H IV12 #### [facility] [address] [address] Andriy Stein Pathologist Provided ICD10 Comment Normal [facility] Comment on above: Result Comment: [id number] Performed at: WB Performed By: #### H IV12 #### [facility] [address] [address] Andriy Stein Performed by: Comment Normal [facility] Comment on above: Result Comment: Funmi Partida, Wildlife And Game Protector (ASCP) Performed at: WB Performed By: #### H IV12 #### [facility] [address] [address] Andriy Stein Recommendation: Comment Abnormal [facility] Comment on above: Result Comment: Sugg est follow up as clinically appropriate. Performed at: WB Performed By: #### H IV12 #### [facility] [address] [address] Andriy Stein Reflex Criteria: Comment Normal [facility] Comment on above: Result Comment: The HPV DNA reflex criteria were not met with this specimen result therefore, no HPV testing was performed. . Performed at: WB Performed By: #### H IV12 #### [facility] [address] [address] Andriy Stein Specimen adequacy: Comment Normal [facility] Comment on above: Result Comment: Sati sfactory for evaluation. Endocervical and/or squamous metaplastic cells (endocervical component) are present. Performed at: WB Performed By: #### H IV12 #### [facility] [address] [id number] Andriylogan Stein AFP MATERNAL FOR SPINA BIFID Aon 02-19-2021 AFP MoM 1.[address] [facility] Comment on above: Performed By: #### H IV12 #### [facility] [address] [address] Andriy Asrita AFP Value 35.0 ng/mL Normal [facility] Comment on above: Performed By: #### H IV12 #### [facility] [address] [address] Andriy Stein AFP, Serum for Spina Bifida Report Normal [facility] Comment on above: Performed By: #### H IV12 #### [facility] [address] [place] [address] Andriy Stein Comment Comment Normal [facility] Comment on above: Result Comment: Jassi Perez, Ph.D., [facility] Director . References: Available Upon Request. . Multiples Of Median Cutoffs For AFP Elevations Beebe 2.5 Black 2.8 IDD 2.0 Twins 4.5 Abbreviation Definitions IDD - Insulin Dep Diabetes OSBR - Open Spina Bifida Risk . For further inquiries contact [employer] at [phone]. Performed By: #### H IV12 #### [facility] [address] [place] [address] Andriy Stein Gest Age Collection Date 16.[address] [facility] Comment on above: Performed By: #### H IV12 #### [facility] [address] [place] [address] Andriy Stein Gestat, Age Based on Ultrasound Normal [facility] Comment on above: Result Comment: 16.0 on 02/17/2021 Recalculations are not recommended when gestational dating by LMP and ultrasound are within 10 days. Performed By: #### H IV12 #### [facility] [address] [place] [address] Andriy Stein Insulin Dep Diabetes No Normal [facility] Comment on above: Performed By: #### H IV12 #### [facility] [address] [place] [address] Andriy Stein Interpretation Comment Normal [facility] Comment on above: Result Comment: Inte [...] Customer Services to discuss available options. The [employer] recommends amniocentesis be offered to women age 35 and older. Performed By: #### H IV12 #### [facility] [address] [id number] Andriy Stein [age] Normal [facility] Comment on above: Performed By: #### H IV12 #### [facility] [address] [address] Andriy Stein Multiple Gestation No Normal [facility] Comment on above: Performed By: #### H IV12 #### [facility] [address] [place] [address] Andriy Stein OSBR Risk 1 [place] [address] Normal [facility] Comment on above: Performed By: #### H IV12 #### [facility] [address] [address] Andriy Stein PDF . Normal [facility] Comment on above: Performed By: #### H IV12 #### [facility] [address] [address] Andriy Stein Race Normal [facility] Comment on above: Performed By: #### H IV12 #### [facility] [address] [address] Andriy Stein Test Results: Negative Normal [facility] Comment on above: Performed By: #### H IV12 #### [facility] [address] [address] Andriy Stein HEMOGLOBINOPATHY FRACTIONATI ON CASCADEon 02-07-2021 HGB A 97.3 % Normal 96.4-98.8 [facility] Comment on above: Performed By: #### H GBCAS ####[facility] [address] [place] [address]Gerlogan Stein HGB A2 2.7 % Normal 1.8-3.2 [facility] Comment on above: Performed By: #### H GBCAS ####[facility] [address] Sarita HGB F 0.0 % Normal 0.0-2.0 [facility] Comment on above: Performed By: #### H GBCAS ####[facility] [address] Sarita HGB S 0.0 % Normal 0.0 [facility] Comment on above: Performed By: #### H GBCAS ####[facility] T[address] [place] Interpretation: Comment Normal [facility] Comment on above: Result Comment: Norm al hemoglobin present; no hemoglobin variant or thalassemia observed. Performed By: #### H GBCAS ####[facility] K[address] [place] VARICELLA IGG ABon Varicella Zoster IgG 406 index Normal Immune >165 [facility] Comment on above: Result Comment: Nega tive <135 Equivocal 135 - 165 Positive >165 A positive result generally indicates exposure to the pathogen or administration of specific immunoglobulins, but it is not indication of active infection or stage of disease. Performed By: #### V ARCEL ####[facility] [address] [place] [address] [place] HEP B SURFACE ANTIGEN SCREEN on 02-06-2021 HBsAg Screen Negative Normal Negative [facility] Comment on above: Performed By: #### H BSANS #### [facility] [address] [place] HEPATITIS C ANTIBODYon 02-06 Hep C Virus Ab <0.1 Normal 0.0-0.9 [facility] Comment on above: Result Comment: Nega tive: < 0.8 Indeterminate: 0.8 - 0.9 Positive: > 0.9 . The CDC recommends that a positive HCV antibody result be followed up with a HCV Nucleic Acid Amplification test (794251). Performed By: #### H CV ####[facility] [address] [place], [place] [address] HIV 1 AND 2 WITH REFLEXon HIV Screen 4th Generation wRfx Non-Reactive Normal Non Reactive [facility] Comment on above: Performed By: #### H IV12 #### [facility] [address] [place] [address] Andriy Stein RPR QUANTon 02-06-2021 Rapid Plasma Reagin, Quant Non-Reactive Normal NonRea<1:1 [facility] Comment on above: Performed By: #### H IV12 #### [facility] [address] [place] [address] Andriy Stein RUBELLA AB IGGon 02-06-2021 Rubella Antibodies, IgG 1.72 index Normal Immune >0.99 [facility] Comment on above: Result Comment: Non- immune <0.90 Equivocal 0.90 - 0.99 Immune >0.99 Performed By: #### H IV12 #### [facility] [address] [place] [address] Andriy Stein CBC AUTO DIFFon 02-05-2021 BASO # 0.0 103/ul Normal 0.0-0.1 [facility] Comment on above: Performed By: #### H BSANS #### [facility] [address] [place], [place] [id number] Andriy Sarita Basophils/100 WBC (Bld) 0.3 % Normal 0.2-2.[address] [facility] Comment on above: Performed By: #### H BSANS #### [facility] [address] [place], [place] [id number] Andriylogan Stein EO # 0.2 103/ul Normal 0.0-0.7 [facility] Comment on above: Performed By: #### H BSANS #### [facility] [address] [place] [address] Andriy Sarita Eosinophils/100 WBC (Bld) 1.7 % Normal 0.9-7.0 [facility] Comment on above: Performed By: #### H BSANS #### [facility] [address] [place] [address] Andriy Sarita Erythrocyte distribution width (RBC) [Ratio] 14.0 % Normal 11.0-15.0 [facility] Comment on above: Performed By: #### H BSANS #### [facility] [address] [place] [address] Andriylogan Stein Hematocrit (Bld) [Volume fraction] 34.3 % Critically low 36.0-48.0 [facility] Comment on above: Performed By: #### H BSANS #### [facility] [address] [place] [address] Andriy Sarita Hemoglobin (Bld) [Mass/Vol] 11.0 g/dL Critically low 12.0-16.0 [facility] Comment on above: Performed By: #### H BSANS #### [facility] [address] [place] [address] Andriy Sarita IG # 0.02 10e3/ul Normal 0.00-0.03 [facility] Comment on above: Performed By: #### H BSANS #### [facility] [address] [place] [address] Andriy Sarita IG % 0.2 % Normal 0.0-0.5 [facility] Comment on above: Performed By: #### H BSANS #### [facility] [address] [place] [address] Andriylogan Stein LYMPH # 3.4 103/ul Normal 1.2-3.8 [facility] Comment on above: Performed By: #### H BSANS #### [facility] [address] [place] [address] Andriy Stein Lymphocytes/100 WBC (Bld) 38.7 % Normal 20.5-60.0 [facility] Comment on above: Performed By: #### H BSANS #### [facility] [address] [place] [address] Andriy Stein MANUAL DIFF REQ NO Normal [facility] Comment on above: Performed By: #### H BSANS #### [facility] [address] [place] [address] Andriy Stein MCH (RBC) [Entitic mass] 27.2 pg Normal 26.7-34.0 [facility] Comment on above: Performed By: #### H BSANS #### [facility] [address] [place] [address] Andriylogan Stein MCHC (RBC) [Mass/Vol] 32.1 g/dL Normal 29.9-35.2 [facility] Comment on above: Performed By: #### H BSANS #### [facility] [address] [place] [address] Andriy Sarita MCV (RBC) [Entitic vol] 84.9 fL Normal 81.0-99.[address] [facility] Comment on above: Performed By: #### H BSANS #### [facility] [address] [place] [address] Andriy Sarita MONO # 0.7 103/ul Normal 0.3-0.8 [facility] Comment on above: Performed By: #### H BSANS #### [facility] [address] [place] [address] Andriy Sarita Monocytes/100 WBC (Bld) 8.3 % Normal 1.7-12.[address] [facility] Comment on above: Performed By: #### H BSANS #### [facility] [address] [place] [address] Andriy Sarita NEUT # 4.4 103/ul Normal 1.4-6.5 [facility] Comment on above: Performed By: #### H BSANS #### [facility] [address] [place] [address] Andriy Sarita Neutrophils/100 WBC (Bld) 50.8 % Normal 43.0-75.0 [facility] Comment on above: Performed By: #### H BSANS #### [facility] [address] [place] [address] Andriy Sarita Platelet mean volume (Bld) [Entitic vol] 9.8 fL Normal 9.5-13.5 [facility] Comment on above: Performed By: #### H BSANS #### [facility] [address] [place] [address] Andriy Sarita PLT 248 103/ul Normal 150-450 [facility] Comment on above: Performed By: #### H BSANS #### [facility] [address] [place], [place] [address] Andriy Sarita RBC 4.04 106/ul Critically low 4.20-5.40 [facility] Comment on above: Performed By: #### H DANIELNS #### [facility] [address] [place] [id number] Andriy Sarita WBC 8.7 103/ul Normal 4.0-11.0 [facility] Comment on above: Performed By: #### H ANGELA #### [facility] [address] [place] [id number] Andriy Sarita GLYCOHEMOGLOBIN A1Con 2020 ADA RECOMMENDATION ADA THERAPEUTIC TARGET 6.0 - 7.0 ACTION SUGGESTED > 7.[address] [facility] Comment on above: Performed By: #### A 1C ####[facility] [address] [place] [id number] Sar[place] Glucose [Mass/Vol] 111 mg/dL Normal [facility] Comment on above: Performed By: #### A 1C ####[facility] [address] [place] [id number] [place] HbA1c (Bld) [Mass fraction] 5.5 % Normal <=6.0 [facility] Comment on above: Performed By: #### A 1C ####[facility] [address] [place] [id number] [place] GTT 3 HR PREGon 02-05-2021 Glucose [Mass/Vol] 79 mg/dL Normal 74-106 [facility] Comment on above: Performed By: #### H BSADOM #### [facility] [address] [place] [address] Andriy Sarita Glucose [Mass/Vol] 117 mg/dL Normal [facility] Comment on above: Performed By: #### H BSADOM #### [facility] [address] [place] [address] Andriy Sarita Glucose [Mass/Vol] 93 mg/dL Normal [facility] Comment on above: Performed By: #### H ANGELA #### [facility] [address] [place], [place] [address] Andriy Sarita Glucose [Mass/Vol] 46 mg/dL Critically low Th e [facility] Comment on above: Performed By: #### H BSANS #### [facility] [address] [place] [id number] Andriy Sarita TYPE AND SCREENon 02-05-2021 TYPE AND SCREEN Antibody Screen NEGATIVE Blood Bank Notes completed by [email or web address] ABO Rh Typing A Rh Positive Blood Bank Notes completed by yudelka [facility] Comment on above: Performed By: #### T NS #### [facility] [address] [place] [id number] Andriy Sarita CULTURE URINEon 01-28-2021 CULTURE URINE Culture Observations: MODERATE GROWTH OF MIXED GENITAL HUBER. NO POTENTIAL PATHOGENS SEEN. Normal [facility] Comment on above: Performed By: #### U RCX ####[facility] [address] [place] [address]Ger[address] [place] UA RANDOM W/MICROSCOPICon BACTERIA SMALL Abnormal NONE SEEN [facility] Comment on above: Performed By: #### H BSANS #### [facility] [address] [place] [address] Andriy Sarita Bilirubin Ql (U) Negative Normal NEGATIVE [facility] Comment on above: Performed By: #### H BSANS #### [facility] [address] [place] [address] Andriy Sarita CAST NONE SEEN Normal NONE SEEN [facility] Comment on above: Performed By: #### H BSANS #### [facility] [address] [place] [address] Andriy Sarita Clarity (U) CLEAR Normal CLEAR [facility] Comment on above: Performed By: #### H BSANS #### [facility] [address] [place] [address] Andriy Sarita Color (U) YELLOW Normal YELLOW [facility] Comment on above: Performed By: #### H BSANS #### [facility] [address] [place] [address] Andriy Sarita Crystals LM Nom (Urine sed) NONE SEEN Normal NONE SEEN [facility] Comment on above: Performed By: #### H BSANS #### [facility] [address] [place] [address] Andriy Sarita Epithelial cells LM Ql (Urine sed) FEW Abnormal NONE SEEN /RARE [facility] Comment on above: Performed By: #### H BSANS #### [facility] [address] [place] [address] Andriy Sarita Glucose Ql (U) Negative Normal NEGATIVE [facility] Comment on above: Performed By: #### H BSANS #### [facility] [address] [place] [address] Andriy Sarita Hemoglobin Ql (U) Negative Normal NEGATIVE [facility] Comment on above: Performed By: #### H BSANS #### [facility] [address] [place] [address] Andriy Sarita Ketones Ql (U) TRACE Abnormal NEGATIVE [facility] Comment on above: Performed By: #### H BSANS #### [facility] [address] [place] [address] Andriy Sarita LEUKOCYTES Negative Normal NEGATIVE [facility] Comment on above: Performed By: #### H BSANS #### [facility] [address] [place] [address] Andriy Sarita MUCOUS SMALL Abnormal NONE SEEN [facility] Comment on above: Performed By: #### H BSANS #### [facility] [address] [place] [address] Andriy Sarita Nitrite Ql (U) Negative Normal NEGATIVE [facility] Comment on above: Performed By: #### H BSANS #### [facility] [address] [place] [address] Andriy Sarita pH (U) 7.0 [pH] Normal 5-9 [facility] Comment on above: Performed By: #### H BSANS #### [facility] [address] [place] [address] Andriy Sarita RBC 0-2 Normal 0-2 [facility] Comment on above: Performed By: #### H BSANS #### [facility] [address] [place] [address] Andriy Sarita SPEC GRAVITY 1.020 Normal 1.005-<=1.[address] [facility] Comment on above: Performed By: #### H BSADOM #### [facility] [address] [place] [address] Andriy Stein UA PROTEIN Negative Normal NEGATIVE/ TRACE [facility] Comment on above: Performed By: #### H BSANS #### [facility] [address] [place] [address] Andriy Stein Urobilinogen Qn (U) 0.2 {Juanito'U}/dL Normal 0.2 - 1. 0 [facility] Comment on above: Performed By: #### H BSADOM #### [facility] [address] [place] [address] Andriylogan Stein WBC NONE SEEN Normal NONE SEEN [facility] Comment on above: Performed By: #### H ANGELA #### [facility] [address] [place] [address] Andriy Stein BUNon 01-26-2021 Urea nitrogen [Mass/Vol] 5.0 mg/dL Critically low 7.0-17.0 [facility] Comment on above: Performed By: #### T SH, LDH, BUN, URIC, ALT, AST ####[facility] [address] [place] [id number] Stein CBC AUTO DIFFon 01-26-2021 BASO # 0.0 103/ul Normal 0.0-0.1 [facility] Comment on above: Performed By: #### C BC #### [facility] [address] [place] [address] Andriy Stein Basophils/100 WBC (Bld) 0.4 % Normal 0.2-2.[address] [facility] Comment on above: Performed By: #### C BC #### [facility] [address] [place] [address] Andriy Sarita EO # 0.1 103/ul Normal 0.0-0.7 [facility] Comment on above: Performed By: #### C BC #### [facility] [address] [place] [address] Andriy Stein Eosinophils/100 WBC (Bld) 1.1 % Normal 0.9-7.0 [facility] Comment on above: Performed By: #### C BC #### [facility] [address] [place], [place] [id number] Andriy Stein Erythrocyte distribution width (RBC) [Ratio] 14.6 % Normal 11.0-15.0 [facility] Comment on above: Performed By: #### C BC #### [facility] [address] [place] [address] Andriy Stein Hematocrit (Bld) [Volume fraction] 34.7 % Critically low 36.0-48.0 [facility] Comment on above: Performed By: #### C BC #### [facility] [address] [place] [address] Andriy Stein Hemoglobin (Bld) [Mass/Vol] 11.1 g/dL Critically low 12.0-16.0 [facility] Comment on above: Performed By: #### C BC #### [facility] [address] [place] [address] Andriylogan Stein IG # 0.04 10e3/ul Critically high 0.00-0.03 [facility] Comment on above: Performed By: #### C BC #### [facility] [address] [place] [address] Andriylogan Stein IG % 0.5 % Normal 0.0-0.5 [facility] Comment on above: Performed By: #### C BC #### [facility] [address] [place] [address] Andriylogan Rodgersen LYMPH # 2.1 103/ul Normal 1.2-3.8 [facility] Comment on above: Performed By: #### C BC #### [facility] [address] [place], [place] [id number] Andriy Stein Lymphocytes/100 WBC (Bld) 25.5 % Normal 20.5-60.0 [facility] Comment on above: Performed By: #### C BC #### [facility] [address] [place] [address] Andriy Stein MANUAL DIFF REQ NO Normal [facility] Comment on above: Performed By: #### C BC #### [facility] [address] [place] [phone] Andriy Stein MCH (RBC) [Entitic mass] 27.2 pg Normal 26.7-34.0 [facility] Comment on above: Performed By: #### C BC #### [facility] [address] [place] [id number] Andriylogan Stein MCHC (RBC) [Mass/Vol] 32.0 g/dL Normal 29.9-35.2 [facility] Comment on above: Performed By: #### C BC #### [facility] [address] [place] [phone] Andriy Stein MCV (RBC) [Entitic vol] 85.0 fL Normal 81.0-99.[address] [facility] Comment on above: Performed By: #### C BC #### [facility] [address] [place] [address] Andriy Rodgersen MONO # 0.6 103/ul Normal 0.3-0.8 [facility] Comment on above: Performed By: #### C BC #### [facility] [address] [place], [place] [id number] Andriy Stein Monocytes/100 WBC (Bld) 7.1 % Normal 1.7-12.[address] [facility] Comment on above: Performed By: #### C BC #### [facility] [address] [place], [place] [id number] Andriylogan Rodgersen NEUT # 5.3 103/ul Normal 1.4-6.5 [facility] Comment on above: Performed By: #### C BC #### [facility] [address] [place], [place] [id number] Andriy Sarita Neutrophils/100 WBC (Bld) 65.4 % Normal 43.0-75.0 [facility] Comment on above: Performed By: #### C BC #### [facility] [address] [place], [place] [phone] Andriy Sarita Platelet mean volume (Bld) [Entitic vol] 9.5 fL Normal 9.5-13.5 [facility] Comment on above: Performed By: #### C BC #### [facility] [address] [place], [place] [address] Andriy Sarita PLT 258 103/ul Normal 150-450 [facility] Comment on above: Performed By: #### C BC #### [facility] [address] [place], [place] [address] Andriy Sarita RBC 4.08 106/ul Critically low 4.20-5.40 [facility] Comment on above: Performed By: #### C BC #### [facility] [address] [place], [place] [address] Andriy Sarita WBC 8.1 103/ul Normal 4.0-11.0 [facility] Comment on above: Performed By: #### C BC #### [facility] [address] [place], [place] [id number] Andriy Sarita CREATININE CLEARon CREA CLEARANCE 69.46 ml/min Critically low 75.00-115.00 [facility] Comment on above: Performed By: #### H IV12 #### [facility] [address] [place] [address] Andriylogan Stein CREA, 24 HR UR 579.12 mg/24 hr Critically low 800.00-1 ,[address] [facility] Comment on above: Performed By: #### H IV12 #### [facility] [address] [place], [place] [id number] Andriy Sarita Creatinine [Mass/Vol] 0.53 mg/dL Normal 0.52-1.04 [facility] Comment on above: Performed By: #### H IV12 #### [facility] [address] [place], [place] [id number] Andriy Sarita URINE CREAT 30.48 mg/dL Normal 20.00-300.00 [facility] Comment on above: Performed By: #### H IV12 #### [facility] [address] [place] [address] Andriy Sarita GLUCOSE - 1HRon 01-26-2021 Glucose [Mass/Vol] 150 mg/dL Critically high 74-[address] [facility] Comment on above: Performed By: #### G LU1HR ####[facility] [address] [place] [address]Andriy Stein LDHon 01-26-2021 LDH 125 U/L Normal 122-222 [facility] Comment on above: Performed By: #### T SH, LDH, BUN, URIC, ALT, AST ####[facility] [address] [place] PROTEIN 24HR URINEon 021 T PROT, 24 HR UR 32.3 mg/24 hr Critically low 42.0-225.[address] [facility] Comment on above: Performed By: #### P ROT24U ####[facility] [address] [place] UR PROT 1.7 mg/dL Normal <=12.0 [facility] Comment on above: Performed By: #### P ROT24U ####[facility] S[address] [place] UR TOT VOL 1900 ml/24 HR Normal [facility] Comment on above: Performed By: #### P ROT24U ####[facility] [address] [place] Performed By: #### H IV12 #### [facility] [address] SGOTon 01-26-2021 AST [Catalytic activity/Vol] 17 U/L Normal 14-36 [facility] Comment on above: Performed By: #### T SH, LDH, BUN, URIC, ALT, AST ####[facility] [address] [place] [address]Ger[address] Sarita SGPTon 01-26-2021 ALT [Catalytic activity/Vol] 16 U/L Normal 9-52 [facility] Comment on above: Performed By: #### T SH, LDH, BUN, URIC, ALT, AST ####[facility] [address] [place] TSHon 01-26-2021 TSH 0.220 uIU/mL Critically low 0.470-4.680 [facility] Comment on above: Performed By: #### T SH, LDH, BUN, URIC, ALT, AST ####[facility] [address] [place] TSH RANGE SEE BELOW Normal [facility] Comment on above: Result Comment: <0.3 4 UIU/ml HYPERTHYROID 0.34-5.60 UIU/ml EUTHYROID >5.60 UIU/ml HYPOTHYROID Performed By: #### T SH, LDH, BUN, URIC, ALT, AST ####[facility] Ev[address]mn[address] [place] URIC ACID SERUMon 01-26-2021 Urate [Mass/Vol] 3.6 mg/dL Normal 2.5-6.2 [facility] Comment on above: Performed By: #### T SH, LDH, BUN, URIC, ALT, AST ####[facility] M[address] [place] PREG TVon 01-24-2021 US PREG [...] ANGELO BLANKEN[place]IP Date: 2021-01-24 10:12 Normal [facility] ABO AND RH TYPEon 01-19-2021 ABO and Rh group Nom (Bld) ABO Rh Typing A Rh Positive Normal [facility] Comment on above: Performed By: #### A BORH ####[facility] [address] [place] PREG QUANT HCGon 01-19-2021 HCG QUANT [address] mIU/mL Normal [facility] Comment on above: Result Comment: Prev iously reported as: 3 On 01/19/2021 11:21 By CV2 Performed By: #### H IV12 #### [facility] [address] [place], [place] [address] Andriy Stein HCG RANGE SEE BELOW Normal [facility] Comment on above: Result Comment: 5-50 0-1 WEEK 40-300 1-2 WEEKS 100-1,000 2-3 WEEKS 500-6,000 3-4 WEEKS 5,000-200,000 1-2 MONTHS 10,000-100,000 2-3 MONTHS 3,000-50,000 2ND TRIMESTER 1,000-50,000 3RD TRIMESTER Performed By: #### H IV12 #### [facility] [address] [place], [place] [address] Andriy Stein Vital Signs Date Time Vital Sign Value Performing Clinician Facility 03-24-2025 11:04-0400 Body mass index (BMI) [Ratio] 33.77 kg/m2 Jem Ambrosio NP Work Phone: [facility] 03-24-2025 11:04-0400 Body weight 89.25 kg Jem Ambrosio LIABILITY CLAIMS EXAMINER Work Phone: [facility] 03-24-2025 11:04-0400 Diastolic blood pressure 80 mm[Hg] Jem Ambrosio LIABILITY CLAIMS EXAMINER Work Phone: [facility] 03-24-2025 11:04-0400 Systolic blood pressure 118 mm[Hg] Jem Ambrosio LIABILITY CLAIMS EXAMINER Work Phone: [facility] 03-10-2025 13:25-0400 Body mass index (BMI) [Ratio] 33.44 kg/m2 Deborah RUBIN Work Phone: [facility] 03-10-2025 13:25-0400 Body weight 88.36 kg Deborah RUBIN Work Phone: [facility] 03-10-2025 13:25-0400 Diastolic blood pressure 74 mm[Hg] Deborah RUBIN Work Phone: [facility] 03-10-2025 13:25-0400 Systolic blood pressure 136 mm[Hg] Deborah Meredith PA Work Phone: [facility] 02-16-2025 15:09-0400 Body mass index (BMI) [Ratio] 33.3 kg/m2 Deborah Aquiles PA Work Phone: [facility] 02-16-2025 15:09-0400 Body weight 88 kg Deborah Meredith PA Work Phone: [facility] 02-16-2025 15:09-0400 Diastolic blood pressure 72 mm[Hg] Deborah Meredith PA Work Phone: [facility] 02-16-2025 15:09-0400 Systolic blood pressure 128 mm[Hg] Deborah Meredith PA Work Phone: [facility] 02-02-2025 15:03-0400 Body mass index (BMI) [Ratio] 33 kg/m2 Scooby Jenny DO Work Phone: [facility] 02-02-2025 15:03-0400 Body weight 87.2 kg Scooby Jenny DO Work Phone: [facility] 02-02-2025 15:03-0400 Diastolic blood pressure 78 mm[Hg] Scooby Jenny DO Work Phone: [facility] 02-02-2025 15:03-0400 Systolic blood pressure 136 mm[Hg] Scooby Jenny DO Work Phone: [facility] 01-01-2025 13:37-0400 Body mass index (BMI) [Ratio] 32.79 kg/m2 Deborah Meredith PA Work Phone: [facility] 01-01-2025 13:37-0400 Body weight 86.64 kg Deborah Aquiles PA Work Phone: [facility] 01-01-2025 13:37-0400 Diastolic blood pressure 72 mm[Hg] Deborah Meredith PA Work Phone: [facility] 01-01-2025 13:37-0400 Systolic blood pressure 124 mm[Hg] Deborah Meredith PA Work Phone: [facility] 12-04-2024 10:26-0400 Body height 162.6 cm Scooby Jenny DO Work Phone: [facility] 12-04-2024 10:25-0400 Body mass index (BMI) [Ratio] 32.27 kg/m2 Scooby Jenny DO Work Phone: [facility] 12-04-2024 10:25-0400 Body weight 85.28 kg Scooby Jenny DO Work Phone: [facility] 12-04-2024 10:25-0400 Diastolic blood pressure 72 mm[Hg] Scooby Jenny DO Work Phone: [facility] 12-04-2024 10:25-0400 Systolic blood pressure 118 mm[Hg] Scooby Jenny DO Work Phone: [facility] 11-24-2024 15:59-0400 Body mass index (BMI) [Ratio] 34.57 kg/m2 Oma Davis RN Work Phone: [facility] 11-24-2024 15:59-0400 Body weight 85.73 kg Oma Davis RN Work Phone: [facility] 11-13-2024 10:57-0400 Body weight 87.09 kg Scooby Jenny DO Work Phone: [facility] 11-13-2024 10:57-0400 Diastolic blood pressure 70 mm[Hg] Scooby Jenny DO Work Phone: [facility] 11-13-2024 10:57-0400 Systolic blood pressure 128 mm[Hg] Scooby Jenny DO Work Phone: [facility] 10-16-2024 14:37-0400 Body weight 85.84 kg Noms Nurse [facility] 10-16-2024 14:37-0400 Diastolic blood pressure 82 mm[Hg] Noms Nurse [facility] 10-16-2024 14:37-0400 Systolic blood pressure 124 mm[Hg] Noms Nurse [facility] 07-09-2021 13:35-0500 Body temperature 96.4 [degF] Renita Canseco Other [facility] Other 07-09-2021 13:35-0500 SaO2% (BldA) [Mass fraction] 98 % Renita Canseco Other [facility] Other 02-19-2021 04:06-0400 Body weight 83.[address] [facility] Comment on above: Performed By: #### [id number] #### [facility] [address] [address] Andriy Rodgersen Encounters Encounter Date Encounter Type Care Provider Facility Start: 03-31-2025 End: 03-31-2025 Clinisync Result Encounter Jem Ambrosio LIABILITY CLAIMS EXAMINER Work Phone: [facility] Unsolicited Start: 03-31-2025 End: 03-31-2025 Clinisync Result Encounter Jem Hebert LIABILITY CLAIMS EXAMINER Work Phone: [facility]solic[facility] Start: 03-24-2025 End: 03-24-2025 Bamboo flowsheet Jem Hebert LIABILITY CLAIMS EXAMINER Work Phone: [facility] Start: 03-24-2025 End: 03-24-2025 Bamboo flowsheet Jem Hebert LIABILITY CLAIMS EXAMINER Work Phone: [facility] Start: 03-24-2025 End: 03-24-2025 Office outpatient visit 15 minutes Jem Hebert LIABILITY CLAIMS EXAMINER Work Phone: [facility] Comment on above: 34 weeks gestation o f ([facility]); Third trimester ([facility]); Gestational diabetes mellitus (GDM) in third trimester, gestational diabetes method of control unspecified ([facility]) Start: 03-24-2025 End: 03-24-2025 ambulatory JEM HEBERT Not Available Start: 03-20-2025 End: 03-20-2025 Telephone encounter Amanda STAPLES [facility] Start: 03-10-2025 End: 03-10-2025 Bamboo flowsheet Deborah RUBIN Work Phone: [facility] [place] [facility] Start: 03-10-2025 End: 03-10-2025 Bamboo flowsheet Deborah RUBIN Work Phone: [facility] Start: 03-10-2025 End: 03-10-2025 Office outpatient visit 15 minutes Deborah RUBIN Work Phone: [facility] Comment on above: 32 weeks gestation o f ([facility]); Third trimester ([facility]) Start: 03-10-2025 End: 03-10-2025 ambulatory DEBORAH RODRIGUEZ Not Available Start: 02-25-2025 End: 02-25-2025 ambulatory DEBORAH RODRIGUEZ Not Available Start: 02-16-2025 End: 02-16-2025 ambulatory DEBORAH RODRIGUEZ Not Available Start: 02-16-2025 End: 02-16-2025 Office outpatient visit 15 minutes Deborah RUBIN Work Phone: [facility] Comment on above: Size of fetus incons istent with dates in second trimester ([facility]) (Primary Dx); 28 weeks gestation of ([facility]); Third trimester ([facility]) Start: 02-16-2025 End: 02-16-2025 Bamboo flowsheet [...] Comment on above: Second trimester pre gnancy ([facility]); 26 weeks gestation of ([facility]); Diabetes mellitus screening Start: 02-02-2025 End: [...] Comment on above: Second trimester pre gnancy ([facility]); 22 weeks gestation of ([facility]) Start: 01-01-2025 End: 01-01-2025 ambulatory DEBORAH [...] Rowena STAPLES Work Phone: [facility] Start: 12-04-2024 End: 12-04-2024 ambulatory SCOOBYArcelia KRUEGERO Not Available Start: 12-04-2024 End: 12-04-2024 Patient encounter procedure Scooby Jenny DO Work Phone: [facility] Start: 12-04-2024 End: 12-04-2024 flow sheet Scooby Jenny DO Work Phone: [facility] Comment on above: Second trimester pre gnancy ([facility]); 18 weeks gestation of ([facility]); Well woman exam with routine gynecological exam; Screening, , for anatomic survey ([facility]); Screen for STD (sexually transmitted disease); Need for maternal serum alpha-protein (MSAFP) screening ([facility]) Start: 11-24-2024 End: 11-24-2024 ambulatory Oma Davis RN Work Phone: [facility] Comment on above: Gestational diabetes mellitus [...] End: 12-21-2023 ambulatory NO PCP NO PCP [facility] Start: 12-19-2023 End: 12-20-2023 Emergency department patient visit RENITA HICKMAN [facility] Start: 12-19-2023 End: 12-19-2023 Emergency department patient visit NO PCP NO PCP [facility] Start: 03-01-2022 End: 03-01-2022 ambulatory Kym Masterson Facility:[facility] Start: 11-08-2021 End: 11-08-[address] SCOOBY ALVARADO Facility:[facility] Start: 08-01-2021 End: 08-01-[address] SCOOBY ALVARADO Facility:[facility] Start: 07-30-2021 End: 07-31-2021 Evaluation and management of inpatient DR SCOOBY ALVARADO Facility:[facility] Start: 07-13-2021 End: 07-13-[address] SCOOBY ALVARADO Facility:[facility] Start: 07-11-2021 End: 07-12-[address] NADIA DOOLEY Facility:[facility] Start: 07-09-2021 End: 07-09-2021 ambulatory Renita Canseco Other [facility] Other Start: 07-09-2021 Office outpatient vi sit [...] 03-31-2025 OB BPP W NON-STRESS Jem Ambrosio LIABILITY CLAIMS EXAMINER Work Phone: Start: 03-24-2025 Urnls dip stick/tabl et rgnt non-auto w/o micrscp Jem Ambrosio LIABILITY CLAIMS EXAMINER Work Phone: Start: 03-10-2025 Urnls dip stick/tabl [...] Td Vaccines (3 - Td or Tdap) [facility] Start: 12-04-2029 Screening for malign ant neoplasm of cervix [facility] Start: 11-24-2025 Adult BMI Screening Adult BMI Screen ing [facility] Start: 06-15-2025 End: 06-15-2025 ambulatory 06/15/2025 9:50 AM EST Visit SHERLY MARES [address] [place] [id number] Scooby Alvarado DO [address] [place] [address] [facility] Start: 04-07-2025 End: 04-07-2025 Patient encounter procedure 04/07/2025 1:30 PM EDT Routine SHERLY MARES [address] [place] [address] Deborah Rodriguez PA [address] [place] [address] [facility] [place] [facility] Start: 03-24-2025 End: 09-21-2025 US biophysical profile w non stress test US biophysical profile w non stress test Imaging Routine Third trimester ([facility]) Expected: 03/24/2025 (Approximate), Expires: 09/21/2025 [facility] Work Phone: Comment on above: Expected: 03/24/2025 (Approximate), Expires: 09/21/2025 Start: 03-24-2025 End: 03-24-2025 Patient encounter procedure [facility] Comment on above: Arrived Start: 03-10-2025 End: 03-10-2025 Patient encounter procedure 03/10/2025 1:20 PM EDT Routine [facility] [address] [place] [phone] Deborah Rodriguez, PA [address] [place] [address] Arrived [facility] Comment on above: Arrived Start: 03-03-2025 End: 03-03-2025 Patient encounter procedure 03/03/2025 2:40 PM EDT Routine [facility] [address] [place] [phone] Scooby Alvarado DO [address] [place] [address] [facility] Start: 02-25-2025 End: 02-25-2025 Professional / ancillary services management 02/25/2025 3:00 PM EDT Ancillary Procedure [facility] [address] [place] [id number] [facility] Start: 02-23-2025 COVID-19 Vaccine ( season) COVID-19 Vaccine ( season) [facility] Start: 02-23-[address] [facility] Start: 02-16-2025 End: 02-16-2025 Patient encounter procedure 02/16/2025 2:30 PM EDT Routine [facility] [address] [place] [id number] Deborah Rodriguez, PA [address] [place] [address] [facility] Start: 02-16-2025 End: 06-18-2025 US for US OB follow up transabdominal approach Imaging Routine Size of fetus inconsistent with dates in second trimester ([facility]) Expected: 02/16/2025, Expires: 06/18/2025 [facility] [...] OB [address] [place] [address] [facility] Start: 01-01-2025 End: 01-01-2025 Patient encounter procedure [facility] Comment on above: Arrived Start: 12-20-2024 Tobacco Screening Tobacco Screening [facility] Start: 12-19-2024 Adult BMI Screening Adult BMI Screen ing [facility] Start: 12-04-2024 End: 01-03-2025 Alpha fetoprotein, maternal Alpha fetoprotein, maternal Lab Routine Need for maternal serum alpha-protein (MSAFP) screening ([facility]) Expected: 12/04/2024 (Approximate), Expires: 01/03/2025 [facility] Comment on above: Expected: 12/04/2024 (Approximate), Expires: 01/03/2025 Start: 12-04-2024 End: 03-06-2025 US for US OB 14+ weeks anatomy scan Imaging Routine Screening, , for anatomic survey ([facility]) Expected: 12/04/2024, Expires: 03/06/2025 [facility] Comment on above: Expected: 12/04/2024 , Expires: 03/06/2025 Start: 12-04-2024 End: 12-04-2024 Patient encounter procedure 12/04/2024 9:40 AM EDT Routine [facility] [address] [place] [address] Scooby Alvarado, DO [address] [place] [address] [facility] Start: 11-13-2024 End: 11-13-2024 Patient encounter procedure 11/13/2024 10:40 AM EDT Routine [facility] [address] [place] [phone] Scooby Alvarado, DO [address] [place] [address] [facility] Start: 10-16-2024 End: 10-16-2025 ABO/Rh ABO/Rh Lab Routine Missed menses , unspecified gestational age Expected: 10/16/2024 (Approximate), Expires: 10/16/2025 [facility] Comment on above: Expected: 10/16/2024 (Approximate), Expires: 10/16/2025 Start: 10-16-2024 End: 10-16-2025 Blood type and Indirect antibody screen panel - Blood Type and screen Lab Routine Missed menses , unspecified gestational age Expected: 10/16/2024 (Approximate), Expires: 10/16/2025 [facility] Work Phone: Comment on above: Expected: 10/16/2024 (Approximate), Expires: 10/16/2025 Start: 10-16-2024 End: 10-16-2025 Drugs of abuse panel - Urine by Screen method Rapid drug screen, urine Lab Routine , unspecified gestational age Encounter for supervision of normal first in first trimester Expected: 10/16/2024 (Approximate), Expires: 10/16/2025 [facility] Comment on above: Expected: 10/16/2024 (Approximate), Expires: 10/16/2025 Start: 02-24-2024 COVID-19 Vaccine () COVID-19 Vaccine () [facility] Start: 2021 Screening for malign ant neoplasm of cervix [facility] Start: 2012 Screening for malign ant neoplasm of cervix Pap Smear [facility] Start: 2009 Adult BMI Follow Up Plan Adult BMI Follow Up Plan [facility] Start: 2003 Depression Screening Depression Scre ening [facility] Bacteria identified in Urine by Culture Urine culture Microbiology Routine Missed menses Ordered: 10/16/2024 [facility] Comment on above: Ordered: 10/16/2024 CBC W Auto Different ial panel - Blood CBC and differential Lab Routine Missed menses , unspecified gestational age Ordered: 10/16/2024 [facility] Comment on above: Ordered: 10/16/2024 CHLAMYDIA TRACHOMATI S (GENITO/STI) CHLAMYDIA TRACHOMATIS (GENITO/STI) Lab Routine Screen for STD (sexually transmitted disease) Ordered: 12/04/2024 [facility] Comment on above: Ordered: 12/04/2024 Cytology Cervical or vaginal smear or scraping study Pap Smear Pathology and Cytology Routine Well woman exam with routine gynecological exam Ordered: 12/04/2024 [facility] Comment on above: Ordered: 12/04/2024 Hemoglobin A1c/Hemoglobin.total in Blood Hemoglobin A1c Lab Routine Missed menses , unspecified gestational age Ordered: 10/16/2024 [facility] Comment on above: Ordered: 10/16/2024 Hepatitis B virus surface Ag [Presence] in Serum or Plasma by Immunoassay Hepatitis B surface antigen Lab Routine Missed menses , unspecified gestational age Ordered: 10/16/2024 [facility] Comment on above: Ordered: 10/16/2024 Hepatitis C virus Ab [Presence] in Serum or Plasma by Immunoassay Hepatitis C antibody Lab Routine Missed menses , unspecified gestational age Ordered: 10/16/2024 [facility] Comment on above: Ordered: 10/16/2024 HIV-1/HIV-2 antigen/antibody combination immunoassay HIV-1 and HIV-2 antibodies Lab Routine Missed menses , unspecified gestational age Ordered: 10/16/2024 [facility] Comment on above: Ordered: 10/16/2024 Human papilloma viru s DNA [Presence] in Unspecified specimen by Probe with amplification HPV DNA probe, amplified Microbiology Routine Well woman exam with routine gynecological exam Ordered: 12/04/2024 [facility] Comment on above: Ordered: 12/04/2024 Neisseria gonorrhoea e DNA [Presence] in Unspecified specimen by CARLITOS with probe detection Neisseria gonorrhea DNA probe, direct Lab Routine Screen for STD (sexually transmitted disease) Ordered: 12/04/2024 [facility] Comment on above: Ordered: 12/04/2024 Reagin Ab [Presence] in Serum by RPR RPR Lab Routine Missed menses , unspecified gestational age Ordered: 10/16/2024 [facility] Comment on above: Ordered: 10/16/2024 Rubella antibody, IgG Rubella an tibody, IgG Lab Routine Missed menses , unspecified gestational age Ordered: 10/16/2024 [facility] Comment on above: Ordered: 10/16/2024 SURESWAB(R) ADVANCED VAGINITIS PLUS, TMA SURESWAB(R) ADVANCED VAGINITIS PLUS, TMA Pathology and Cytology Routine Screen for STD (sexually transmitted disease) Ordered: 12/04/2024 [facility] Work Phone: Comment on above: Ordered: 12/04/2024 Immunizations Immunization Date Immunization Notes Care Provider [facility] 04-04-2024 influenza virus vaccine, unspecified formulation Oma Davis RN Work Phone: [facility] Payers Date Payer Category Payer Medicaid [employer] [place] [id number] 2025 Medicaid [id number] 2022 Self-pay 2022 Managed Care Other (unspecified) [employer] [id number] 2022 Private Health Insurance [facility] [id number] 2022 Private Health Insurance [facility] [id number] 1991 Unknown [id number] 2.16.840.1.893318.3.579.2. 593 1991 Unknown [id number] 2.16.840.1.859141.3.579.2. 593 1991 Unknown [id number] 2.16.840.1.579064.3.579.2. 593 1991 Unknown [id number] 2.16.840.1.957982.3.579.2. 593 1991 Unknown [id number] 2.16.840.1.399653.3.579.2. 593 1991 Unknown [id number] 2.16.840.1.763563.3.579.2. 593 1991 Unknown [id number] 2.16.840.1.589267.3.579.2. 593 1991 Unknown [id number] 2.16.840.1.852637.3.579.2. 593 1991 Unknown [id number] 2.16.840.1.194103.3.579.2. 593 1991 Unknown [id number] 2.16.840.1.833606.3.579.2. 593 1991 Unknown [id number] 2.16.840.1.405279.3.579.2. 593 1991 Unknown [id number] 2.16.840.1.083805.3.579.2. 593 1991 Unknown [id number] 2.16.840.1.530810.3.579.2. 593 1991 Unknown [id number] 2.16.840.1.962896.3.579.2. 593 1991 Unknown [id number] 2.16.840.1.465524.3.579.2. 593 1991 Unknown [id number] 2.16.840.1.039681.3.579.2. 593 1991 Unknown [id number] 2.16.840.1.375989.3.579.2. 593 1991 Unknown [id number] 2.16.840.1.918346.3.579.2. 593 1991 Unknown [id number] 2.16.840.1.205570.3.579.2. 593 1991 Unknown [id number] 2.16.840.1.610597.3.579.2. 593 1991 Unknown [id number] 2.16.840.1.421991.3.579.2. 1286 1991 Unknown [id number] 2.16.840.1.057411.3.579.2. 1285 1991 Unknown [id number] 2.16.840.1.606693.3.579.2. 1286 1991 Unknown [id number] 2.16.840.1.670016.3.579.2. 128 1991 Unknown [id number] 2.16.840.1.801649.3.579.2. 1258 1991 Unknown [id number] 2.16.840.1.356083.3.579.2. 1258 1991 Unknown [id number] 2.16.840.1.256267.3.579.2. 1258 1991 Unknown [id number] 2.16.840.1.450847.3.579.2. 1258 1991 Unknown [id number] 2.16.840.1.523837.3.579.2. 1258 1991 Unknown [id number] 2.16.840.1.475284.3.579.2. 1258 1991 Unknown [id number] 2.16.840.1.339871.3.579.2. 1258 1991 Unknown [id number] 2.16.840.1.699798.3.579.2. 1258 1991 Unknown [id number] 2.16.840.1.776305.3.579.2. 1258 1991 Unknown [id number] 2.16.840.1.109703.3.579.2. 1258 1991 Unknown [id number] 2.16.840.1.360622.3.579.2. 1259 1959 Unknown [id number] 1959 Unknown [id number] Unknown [id number] 2.16.840.1.814665.3.579.2. 531 Social History Date Type Detail Facility Start: 08-05-2020 End: 12-21-2023 Sex Assigned At [facility] Tobacco smoking stat us DCIS Tobacco smoking consumption unknown [facility] Start: 08-12-2024 [facility] Start: 1990 Sex assigned at Female [facility] Start: 06-27-2023 Gender identity Identifies as female gender (finding) [facility] Start: 06-27-2023 Sexual orientation Heterosexual (finding) [facility] Start: 08-25-2019 Tobacco smoking status DCIS Never smoked tobacco [facility] Start: 08-25-2019 Tobacco use and exposure Smokeless tobacco non-user [facility] Start: 11-19-2024 Alcoholic beverage intake Ex-drinker (finding) [facility] Start: 08-05-2020 End: 12-21-2023 History of Social function [facility] Are you worried or concerned that in the next two months you may not have stable housing that you own, rent or stay in as a part of a household? No [facility] Start: 1990 Sex assigned at Not on file [facility] Start: 01-28-2015 Sex Female (finding) [facility] Medical Equipment Procedure Code Equipment Code Equipment Origin al Text Equipment Identifier Dates 1 strip by In Vi tro route Daily Use in the morning prior to breakfast, 1 hour after each meal for a total of 4times daily. [id number] Start: 11-13-2024 End: 12-13-2024 1 each by In Vit ro route Daily Use to check FSBS four times daily [id number] Start: 11-13-2024 End: 12-13-2024 Clinical Notes 07-09-2021 to 03-24-2025 Jem Ambrosio, LIABILITY CLAIMS EXAMINER - 03/24/2025 10:50 AM EDTTelephone Encounter - [...] to check FSBS. Blood Glucose Monitoring Suppl ([employer] Glucometer) w/Device kit 1 kit, Does not apply, Daily, Use four times daily to check FSBS. In the morning prior to breakfast & 1 hour after each meal for a total of 4times daily. Keemuubm-Vtz-Uo-FA ( 1 + IRON PO) Take by mouth ProFe 391.3 (180 Fe) MG capsule 1 capsule, Daily ALLERGIES Not on File PROBLEMS Active Ambulatory Problems Diagnosis Date Noted 28 weeks gestation of ([facility]) 02/16/2025 Third trimester ([facility]) 02/16/2025 Resolved Ambulatory Problems Diagnosis Date [...] nursing note reviewed. Exam conducted with a aviation medicine specialist present. Vitals: Estimated body mass index is 33.44 kg/m as calculated from the following: Height as of 12/04/24: 5' 4 . Weight as of 03/10/25: 194 lb 12.8 oz. BP: Patient's last menstrual period was 07/29/2024 (exact date). ASSESSMENT & PLAN ICD-10-CM 1. 34 weeks gestation of ([facility]) Z3A.34 2. Third trimester ([facility]) Z34.93 US biophysical profile w non stress test POCT urinalysis dipstick manually resulted 3. Gestational diabetes mellitus (GDM) in third trimester, gestational diabetes method of control unspecified ([facility]) O24.419 Return OB: Patient presents today [...] continues to send her glucose logs to [facility] and we will begin NST/BPP this week. Orders Placed This Encounter Procedures US biophysical profile w non stress test POCT urinalysis dipstick manually resulted Follow Up: Patient is to return to office in 2 week for routine OB appointment. Documented by Yane Grant MA on behalf of: Jem Ambrosio NP documented in this encounter [facility] 03-20-2025 Miscellaneous Notes Called patient and had to leave a voicemail. We haven't received any blood sugar logs for 4 weeks. Asked her to please send them to us or to call with questions. Left RD phone number. [facility] Telephone encounter Note Called patient and had to leave a voicemail. We haven't received any blood sugar logs for 4 weeks. Asked her to please send them to us or to call with questions. Left RD phone number. [employer] [facility] 03-10-2025 History of Presen t illness Narrative Reason for Appointment: Patient ID: Paris Mosqueda is a 34 y.o. female who presents for Routine Visit Patient presents today for Return OB appointment. MEDICATIONS Current Outpatient Medications Medication Instructions Alcohol Swabs (Alcohol Prep Pad) 70 % pads 1 Pad, Topical, Daily, Use four times daily to check FSBS. Blood Glucose Monitoring Suppl ([employer] Glucometer) w/Device kit 1 kit, Does not apply, Daily, Use four times daily to check FSBS. In the morning prior to breakfast & 1 hour after each meal for a total of 4times daily. Jywncwop-Khp-Kj-FA ( 1 + IRON PO) Take by mouth ProFe 391.3 (180 Fe) MG capsule 1 capsule, Daily ALLERGIES No Known Allergies PROBLEMS Active Ambulatory Problems Diagnosis Date Noted 28 weeks gestation of ([facility]) 02/16/2025 Third trimester ([facility]) 02/16/2025 Resolved Ambulatory Problems Diagnosis Date [...] nursing note reviewed. Exam conducted with a aviation medicine specialist present. Vitals: Estimated body mass index is 33.44 kg/m as calculated from the following: Height as of 12/04/24: 5' 4 . Weight as of this encounter: 194 lb 12.8 oz. BP: 136/74 Patient's last menstrual period was 07/29/2024 (exact date). ASSESSMENT & PLAN ICD-10-CM 1. 32 weeks gestation of ([facility]) Z3A.32 POCT urinalysis dipstick manually resulted 2. Third trimester ([facility]) Z34.93 POCT urinalysis dipstick manually resulted [...] SCOTTIE Yañez documented in this encounter [facility] 02-16-2025 History of Presen t illness Narrative Reason for Appointment: Patient ID: Paris Mosqueda is a 34 y.o. female who presents for Routine Visit Patient presents today for Return OB appointment. MEDICATIONS Current Outpatient Medications Medication Instructions Alcohol Swabs (Alcohol Prep Pad) 70 % pads 1 Pad, Topical, Daily, Use four times daily to check FSBS. Blood Glucose Monitoring Suppl ([employer] Glucometer) w/Device kit 1 kit, Does not apply, Daily, Use four times daily to check FSBS. In the morning prior to breakfast & 1 hour after each meal for a total of 4times daily. Hvemdicn-Mag-Nc-FA ( 1 + IRON PO) Take by mouth ProFe 391.3 (180 Fe) MG capsule 1 capsule, Daily ALLERGIES No Known Allergies PROBLEMS Active Ambulatory Problems Diagnosis Date Noted 28 weeks gestation of ([facility]) 02/16/2025 Third trimester ([facility]) 02/16/2025 Resolved Ambulatory Problems Diagnosis Date [...] nursing note reviewed. Exam conducted with a aviation medicine specialist present. Vitals: Estimated body mass index is 33.3 kg/m as calculated from the following: Height as of 12/04/24: 5' 4 . Weight as of this encounter: 194 lb. BP: 128/72 Patient's last menstrual period was 07/29/2024 (exact date). ASSESSMENT & PLAN ICD-10-CM 1. Size of fetus inconsistent with dates in second trimester ([facility]) O26.842 US OB follow up transabdominal approach 2. 28 weeks gestation of ([facility]) Z3A.28 CANCELED: CBC and differential 3. Third trimester ([facility]) Z34.93 Return OB: Patient presents today [...] SCOTTIE Yañez documented in this encounter [facility] 02-02-2025 History of Presen t illness Narrative [...] meal for a total of 4times daily. Tlhjicgi-Dmo-By-FA ( 1 + IRON PO) Take by [...] nursing note reviewed. Exam conducted with a aviation medicine specialist present. Vitals: Estimated body mass index is 33 kg/m as calculated from the following: Height as of 12/04/24: 5' 4 . Weight as of this encounter: 192 lb 4 oz. BP: 136/78 Patient's last menstrual period was 07/29/2024 (exact date). ASSESSMENT & PLAN ICD-10-CM 1. Second trimester ([facility]) Z34.92 POCT urinalysis dipstick manually resulted 2. 26 weeks gestation of ([facility]) Z3A.26 3. Diabetes mellitus screening Z13.1 [...] glucose log and completed Diabetic education through [facility]. Documented by Jem Ambrosio NP on behalf of: Scooby Alvarado DO documented in this encounter [facility] 01-01-2025 History of Presen t illness Narrative [...] meal for a total of 4times daily. Hssaveql-Mie-Jf-FA ( 1 + IRON PO) Take by [...] ASSESSMENT & PLAN ICD-10-CM 1. Second trimester ([facility]) Z34.92 POCT urinalysis dipstick manually resulted 2. 22 weeks gestation of ([facility]) Z3A.22 Return OB: Patient presents today [...] SCOTTIE Yañez documented in this encounter [facility] 12-04-2024 Miscellaneous Notes Called regarding blood sugar [...] have questions you can call me at [phone]. Please continue to send in blood sugars weekly. I will also send a [employer] pte message. [facility] Telephone encounter Note Called regarding blood [...] have questions you can call me at [phone]. Please continue to send in blood sugars weekly. I will also send a [employer] pte message. [employer] Work Phone: 12-04-2024 History of Presen t [...] Use to check FSBS four times daily Tuwblpfj-Stw-Nw-FA ( 1 + IRON PO) Take by [...] nursing note reviewed. Exam conducted with a aviation medicine specialist present. Vitals: There is no height or weight on file to calculate BMI. BP: 118/72 Patient's last menstrual period was 07/29/2024 (exact date). ASSESSMENT & PLAN ICD-10-CM 1. Second trimester ([facility]) Z34.92 POCT urinalysis dipstick manually resulted 2. 18 weeks gestation of ([facility]) Z3A.18 3. Well woman exam with routine gynecological exam Z01.419 Pap Smear HPV DNA probe, amplified 4. Screening, , for anatomic survey ([facility]) Z36.89 US OB 14+ weeks anatomy scan 5. Screen for STD (sexually transmitted disease) Z11.3 SURESWAB(R) ADVANCED VAGINITIS PLUS, TMA CHLAMYDIA TRACHOMATIS (GENITO/STI) Neisseria gonorrhea DNA probe, direct 6. Need for maternal serum alpha-protein (MSAFP) screening ([facility]) Z36.1 Alpha fetoprotein, maternal Alpha fetoprotein, [...] Alvarado DO documented in this encounter [facility] 11-24-2024 Group counseling note Patient: Paris Mosqueda [...] Face to face time was 85 minutes. [employer] Work Phone: 11-24-2024 Miscellaneous Notes Patient: Paris [...] was 85 minutes. documented in this encounter [employer] 11-13-2024 History of Presen t illness Narrative [...] Use to check FSBS four times daily Hwymnjrf-Fqf-Lj-FA ( 1 + IRON PO) Take by [...] nursing note reviewed. Exam conducted with a aviation medicine specialist present. Vitals: There is no height or [...] Glucose Test) strip Blood Glucose Monitoring Suppl ([employer] Glucometer) w/Device kit 5. Elevated glucose tolerance test R73.09 Lancets Ultra Thin misc Alcohol Swabs (Alcohol Prep Pad) 70 % pads Glucose Blood (Blood Glucose Test) strip Blood Glucose Monitoring Suppl ([employer] Glucometer) w/Device kit New OB: Patient presents [...] aware that referral will be sent to [facility] for Diabetic Education and monitoring. PVU and supplies sent to pharmacy for patient to pickup and take with her to her referral appointment. Follow Up: Patient is to return in 4 weeks for routine OB appointment. Documented by Wendy Ulloa LPN on behalf of: Scooby Alvarado DO documented in this encounter [facility] 10-16-2024 History of Presen t illness Narrative [...] Tyler MA documented in this encounter [facility] 07-09-2021 Evaluation note Encounter Date Diagnosis Assessment [...] given in writting by [facility] Home document [employer] Other Evaluation note* Diagnosis Missed menses Missed [...] of control unspecified [facility] Second trimester ([facility]) state, incidental 18 weeks gestation of ([facility]) Well woman exam with routine gynecological exam Routine gynecological examination Screening, , for anatomic survey ([facility]) Encounter for anatomic survey Screen for STD (sexually transmitted disease) Screening examination for venereal disease Need for maternal serum alpha-protein (MSAFP) screening ([facility]) [facility] [...] encounter [facility] HealthcareInstructionsNot on filedocumented in this encounterProMedime Health SystemInstructionsNot on filedocumented in this encounterProMedime [facility] Summary Purpose Family History No Family History Records FoundNo Family History Records FoundNo Family History Records FoundNo Family History Records FoundNo Family History Records Found Advance Directives Date Activated Date Inactivated Comments 12/20/2023 11:13 PM 12/21/2023 1:46 PM Additional Source Comments INFORMATION SOURCE (unrecogn ized section and content) DATE CREATED AUTHOR 11/17/2021 [facility] DATE CREATED AUTHOR AUTHOR'S ORGANIZ ATION 03/24/2022 [facility] DATE CREATED AUTHOR AUTHOR'S ORGANIZ ATION 12/29/2023 [facility] DATE CREATED AUTHOR AUTHOR'S ORGANIZ ATION 11/25/2024 [facility] DATE CREATED AUTHOR AUTHOR'S ORGANIZ ATION 03/29/2025 [facility] dicme Specialists EPIC REASON FOR VISIT (unrecogniz ed section and content) Reason Comments Amenorrhea Reason Comments Routine Visit Reason Comments Gestational Diabetes Specialty Diagnoses / Procedures Referred By Contac t Referred To Contact Maternal and Medicine Diagnoses Gestational diabetes mellitus (GDM) in second trimester, gestational diabetes method of control unspecified Scooby Alvarado R, DO [address] [place] [address] Phone: tel: fax: Maternal- Medicine at [facility] [address] [place] [address] Phone: tel: fax: Referral ID Status Reason Start Date Expiration Date Visits Requested Visits Authorized [id number] Pending Review Specialty Services Required 11/19/2024 11/19/2025 1 1 Care Teams (unrecognized sec tion and content) Ticket Seller Relationship Specialty Start Date End Date No Pcp, [place] [address] PCP - General Family Medicine 12/19/23 Ticket Seller Relationship Specialty Start Date End Date No Pcp, [place] [address] PCP - General Family Medicine 12/19/23 Ticket Seller Relationship Specialty Start Date End Date No Pcp, [place] [address] PCP - General Family Medicine 12/19/23 FOR [...] BE BASED ON THE PRIMARY CLINICAL RECORDS. [facility] [employer] [facility]. provides no warranty or guarantee of the accuracy or completeness of information in this document.
--- OUTSIDE RECORDS SUMMARY | 2025-04-07 19:28 | XMS_ITS | Encounter Summary ---
Author Organization [facility] Address [address] [place] [address] Care Team Providers Care Supervisor Electronics Assembly Name Role Phone Jihan Epps EYELET ROW MARKER Unavailable [phone] Encounter Details Date Type Department Care Team (Late st Contact Info) Description 12/14/2023 Clinisync Result Encounter [facility] External Department Unsolicited Hector Alvarado DO [address] [place] [address] Social History Tobacco Use Types Packs/Day Years [...] Description 04/14/2025 11:10 AM EDT Routine [facility] [address] [place] [address] Hector Alvarado DO [address] [place] [address] 06/15/2025 9:50 AM EST Visit [facility] [address] [place] [address] Hector Alvarado, DO [address] [place] [address] Dr Jaz Quesada [place] [phone] (work) documented as of this encounter Procedures Procedure Name Priority Date/Time Associated Diagnosis Comments US OB TRANSVAGINAL 12/14/2023 9: 53 AM EDT documented in this encounter Results * US OB TRANSVAGINAL (12/14/2023 9:53 AM EDT) Anatomical Region Laterality Modality Other 12/14/2023 9:53 AM EDT Narrative 12/14/2023 9:56 AM EDT [address] [address] Ultrasound Report Signed Patient: PRISCILLA MOSQUEDA MR#: [id number] : 1990 Acct:[id number] Age/Sex: 33 / F ADM Date: 12/14/23 Loc: [facility] Attending Dr: Hector Alvarado D.O. Ordering Physician: Hector Alvarado D.O. Date of Service: 12/14/23 Procedure(s): US OB transvaginal Accession Number(s): [id number] cc: [facility] ; Hector Alvarado D.O. The [address] [address] Patient Name: PRISCILLA MOSQUEDA MRN: [id number] date: 1990 Sex: F Assigned Patient Location: [facility] Current Patient Location: [facility] Accession/Order Number: [id number] Exam Date: 12/14/2023 09:01 Report Date: 12/14/2023 [...] Dooley M.D. Signed By: 12/14/2356 DD/ TD/TT: Forestry Farm Laborer: Procedure Note Radiology, Radiologist, - 12/14/2023 [place] [address] Ultrasound Report Signed Patient: PRISCILLA MOSQUEDAMR#: [id number] : 1990Acct:[id number] Age/Sex: 33 / FADM Date: 12/14/23 Loc: [facility] Attending Dr: Hector Alvarado D.O. Ordering Physician: Hector Alvarado D.O. Date of Service: 12/14/23 Procedure(s): US OB transvaginal Accession Number(s): [id number] cc: [facility] ; Hector Alvarado D.O. The [address] [address] Patient Name: PRISCILLA MOSQUEDA MRN: [id number] date: 1990 Sex: F Assigned Patient Location: [facility] Current Patient Location: [facility] Accession/Order Number: [id number] Exam Date: 12/14/2023 09:01 Report Date: 12/14/2023 [...] Nadia Dooley M.D. Signed By:12/14/2356 DD/ TD/TT: Forestry Farm Laborer: us Hector Jenny DO [facility] Final Result documented in this encounter Visit Diagnoses Not on filedocumented in this encounter Care Teams Supervisor Electronics Assembly Relationship Specialty Start Date End Date Jihan Epps NP [address] [place] [address] PCP - [facility] QUALITY ASSURANCE TEST PROGRAM MANAGER 09/24/23 12/23/23 documented as of this encounter
== END 2025-04-07 19:25 | disposition home or self-care (01) ==
LOC: LAB 19:24
PROVIDERS: Visit Provider Physician Assistant
DX: Z34.93 Encounter for supervision of normal pregnancy, unspecified, third trimester (principal)
CPT/HCPCS: 87081

== ENCOUNTER 2025-04-10 09:50 | Outpatient (OUT) | payer MEDICAID, SELFPAY ==
--- OUTSIDE RECORDS SUMMARY | 2025-04-10 09:53 | XMS_ITS | CCD ---
Author Organization [facility] CliniSynd Care Team Providers Care Dukey Rider Name Role Phone RENAY OTOOLE Attending Unavailable [...] Unavailable MISC, DR GILBERT Primary Care Unavailable SYDINE, RENAY Consulting Unavailable SYDNIE, RENAY Attending Unavailable SYDNIE, RENAY Admitting Unavailable REQUEST, DR NONE LISTED Primary Care Unavaila ble WEST, DR NADIA Harrison Consulting Unavailable SYDNIE, RENAY Consulting Unavailable SYDNIE, RENAY Attending Unavailable SYDNIE, RENAY Admitting Unavailable KRZYSZTOF, DR ANGELO Vaz Consulting Unavailable REQUEST, DR NONE LISTED Primary Care Unavaila ble SYDNIE, RENAY Consulting Unavailable MELLYANDER, NAT Attending Unavailable HIGHLTYRONE, NAT Admitting Unavailable REQUEST, DR NONE LISTED [...] Admitting Unavailable Unavailable Primary Care Provider Unavailchanel e No Pcp, No Pcp Primary Care Provider UnavailCHINYERE Mathew Attending Unavailable SCOOBY ALVARADO Referring Unavailable NO PCP, NO PCP Primary Care Unavailable SCOOBY ALVARADO Attending Unavailable SCOOBY ALVARADO Attending Unavailable DEBORAH RODRIGUEZ Attending Unavailable SCOOBY ALVARADO Attending Unavailable DEBORAH RODRIGUEZ Attending Unavailable AQUILESDEBORAH REGAN Referring Unavailable DEBORAH RODRIGUEZ Attending Unavailable JEM AMBROSIO Attending Unavailable DEBORAH RODRIGUEZ Attending Unavailable Medications Current Medications Medication Drug Class(es) Dates Sig (Normalized) Sig (Original) Blood Glucose Monitoring Suppl (D-Care Glucometer) w/Device kit (20 sources) Start: 11-13-2024 End: 11-13-2025 Blood Glucose Monitoring Suppl (D-Care Glucometer) w/Device kit Indications: Gestational diabetes mellitus (GDM), antepartum, gestational diabetes method of control unspecified ([facility]) , Elevated glucose tolerance test 1 kit [...] antepartum, gestational diabetes method of control unspecified ([facility]) , Elevated glucose tolerance test Apply 1 Pad topically Daily Use four times daily to check FSBS. 150 each 3 11/13/2024 Active polysaccharide iron complex 391 mg oral capsule (17 sources) Start: 02-04-2024 take 1 capsule by mouth once daily ProFe 391.3 (180 Fe) MG capsule Take 1 capsule by mouth Daily 02/04/2024 Active Ollphizy-Ytz-Rd-FA ( 1 + IRON PO) (20 sources) Tlvmctun-Ect-Oq-FA ( 1 + IRON PO) Take by [...] of ] 02-02-2025 Episodic Residual codes; unclassified (14 sources) Gestation period, 28 weeks; Translations: [28 weeks gestation of ] Onset: 02-16-2025 02-16-2025 Episodic Residual codes; unclassified (2 sources) Gestation period, 32 weeks; Translations: [32 weeks gestation of ] 03-10-2025 Episodic Residual codes; unclassified (2 sources) Gestation period, 34 weeks; Translations: [34 weeks gestation of ] 03-24-2025 Episodic Residual codes; unclassified (2 sources) Gestation period, 36 weeks; Translations: [36 weeks gestation of ] 04-07-2025 Episodic Spondylosis; intervertebral disc disorders; other back [...] Range Facility Urinalysis macro (dipstick) panel (U)on 04-07-2025 Bilirubin, UA Negative Negative - 4(70) +++ mg/dL [facility] Blood, UA Negative Negative - 50 Celestino/mcL [facility] Clarity, UA Clear [facility] Healthil re Color, UA Yellow [facility] Healthcar e Glucose, UA Negative Negative - 1999(110) ++++ mg/dL [facility] Interpretation and review of laboratory results Normal [facility] Ketones, UA Negative Negative - 160(16) ++++ mg/dL [facility] Leukocytes, UA Negative Negative - 500+++ Dodie/mcL [facility] Nitrite, UA Negative Negative - Positive [facility] pH, UA 6.0 5 - [address] [facility] Protein, UA Negative Negative - 1999(20) ++++ mg/dL [facility] Spec Grav, UA 1.010 1 - 1.03 [facility] Urobilinogen, UA 0.2 0.2 - 12 mg/dL [facility] US OB BPP W NON-STRESS on 03-31-2025 [place] [address] Ultrasound Report Signed Patient: PARIS MOSQUEDA MR#: [id number] : 1990 Acct:[id number] Age/Sex: 34 / F ADM Date: 03/31/25 Loc: US Attending Dr: Jem Ambrosio Ordering Physician: Jem Ambrosio Date of Service: 03/31/25 Procedure(s): US OB BPP w non-stress Accession Number(s): [id number] cc: Jem Ambrosio; [place] [id number] Patient Name: PARIS MOSQUEDA MRN: [facility]:[id number] date: 1990 Sex: F Assigned Patient Location: [facility] Current Patient Location: Accession/Order Number: [id number] Exam Date: 03/31/2025 12:57 Report Date: 03/31/2025 17:44 At the request of: JEM AMBROSIO Procedure: US OB BPP w non-stress Ultrasound biophysical profile INDICATION: Gestational diabetes FINDINGS/ IMPRESSION: Cephalic position. 8/ 8 score biophysical profile. JEANNINE measures 7.9 cm which is borderline oligohydramnios. heart rate 152 beats per minutes. Impression dictated by: Nito Chong M.D. 03/31/2025 5:44 PM Dictation Location: [place] [address] Electronically authenticated by: [id number] Y Date: 03/31/2025 17:44 Dictated By: Nito Chong M.D. Signed By: 03/31/251746 DD/ 43 TD/TT: Merchandiser Retail Representative: [facility] Radiology, Radiologist, MD - 03/31/2025 [place] [address] Ultrasound Report Signed Patient: PARIS MOSQUEDA MR#: [id number] : 1990 Acct:[id number] Age/Sex: 34 / F ADM Date: 03/31/25 Loc: US Attending Dr: Jem Ambrosio Ordering Physician: Jem Ambrosio Date of Service: 03/31/25 Procedure(s): US OB BPP w non-stress Accession Number(s): [id number] cc: Jem Ambrosio; [place] [id number] Patient Name: PARIS MOSQUEDA MRN: [facility]:[id number] date: 1990 Sex: F Assigned Patient Location: [facility] Current Patient Location: Accession/Order Number: [id number] Exam Date: 03/31/2025 12:57 Report Date: 03/31/2025 17:44 At the request of: JEM AMBROSIO Procedure: US OB BPP w non-stress Ultrasound biophysical profile INDICATION: Gestational diabetes FINDINGS/ IMPRESSION: Cephalic position. 8/ 8 score biophysical profile. JEANNINE measures 7.9 cm which is borderline oligohydramnios. heart rate 152 beats per minutes. Impression dictated by: Nito Chong M.D. 03/31/2025 5:44 PM Dictation Location: [place] [address] Electronically authenticated by: [id number] Y Date: 03/31/2025 17:44 Dictated By: Nito Chong M.D. Signed By: 03/31/251746 DD/ 43 TD/TT: Merchandiser Retail Representative: [facility] Radiology Study observation (narrative) [facility] US OB BPP W NON-STRESS Ordered By: Radiologist Radiology on 03-31-2025 [facility] [employer] Work Phone: Urinalysis macro (dipstick) panel (U)on 03-24-2025 Bilirubin, UA Negative Negative - 4(70) +++ mg/dL [facility] Blood, UA Negative Negative - 50 Celestino/mcL [facility] Clarity, UA Clear [facility] re Color, UA Yellow [facility] e Glucose, UA Negative Negative - 1999(110) ++++ mg/dL [facility] Interpretation and review of laboratory results Abnormal [facility] Ketones, UA Negative Negative - 160(16) ++++ mg/dL [facility] Leukocytes, UA Trace Negative - 500+++ Dodie/mcL [facility] Nitrite, UA Negative Negative - Positive [facility] pH, UA 6 5 - 9 [facility] [employer] Protein, UA Trace Negative - 1999(20) ++++ mg/dL [facility] Spec Grav, UA 1.02 1 - 1.03 [facility] Urobilinogen, UA 2.0 0.2 - 12 mg/dL [facility] Urinalysis macro (dipstick) panel (U)on 03-10-2025 Bilirubin, UA Positive Negative - 4(70) +++ mg/dL [facility] Blood, UA Positive Negative - 50 Celestino/mcL [facility] Clarity, UA Clear [facility] Healthca re Color, UA [facility] Glucose, UA Negative Negative - 1999(110) ++++ mg/dL [facility] Interpretation and review of laboratory results Abnormal [facility] Ketones, UA Positive Negative - 160(16) ++++ mg/dL [facility] Leukocytes, UA Positive Negative - 500+++ Dodie/mcL [facility] Nitrite, UA Negative Negative - Positive [facility] pH, UA 6 5 - 9 [facility] e Protein, UA Positive Negative - 1999(20) ++++ mg/dL [facility] Spec Grav, UA 1.03 1 - 1.03 [facility] Urobilinogen, UA 1.0 0.2 - 12 mg/dL [facility] US OB FOLLOW UP TRANSABDOMIN [...] AUTO DIFFon BASOPHILS ABSOLUTE AUTO 0 N [facility] Basophils/100 WBC (Bld) 0.4 % 0.2 - 2.0 % [facility] Eosinophils/100 WBC (Bld) 1.5 % 0.9 - 7.0 % [facility] Erythrocyte distribution width (RBC) [Ratio] 15 % 11.0 - 15.0 % [facility] Hematocrit (Bld) [Volume fraction] 33.1 % Low 36.0 - 48.0 % [facility] Hemoglobin (Bld) [Mass/Vol] 10.6 g/dL Low 12.0 - 16.0 g/dL [facility] IMMATURE GRANULOCYTES ABS AUTO 0.05 High [facility] Immature granulocytes/100 WBC (Bld) 0.5 % 0.0 - 0.5 % [facility] Interpretation and review of laboratory results Abnormal [facility] LYMPHOCYTES ABSOLUTE AUTO 3 [facility] Lymphocytes/100 WBC (Bld) 31.1 % 20.5 - 60.0 % [facility] MCH (RBC) [Entitic mass] 25.4 pg Low 26.7 - 34.0 pg [facility] MCHC (RBC) [Mass/Vol] 32 g/dL 29.9 - 35.2 g/dL [facility] MCV (RBC) [Entitic vol] 79.2 fL Low 81.0 - 99.0 fL [facility] MONOCYTES ABSOLUTE AUTO 0.8 N [facility] Monocytes/100 WBC (Bld) 8.4 % 1.7 - 12.0 % [facility] NEUTROPHILS ABSOLUTE AUTO 5.7 [facility] Neutrophils/100 WBC (Bld) 58.1 % 43.0 - 75.0 % [facility] Platelet mean volume (Bld) [Entitic vol] 10 fL 9.5 - 13.5 fL [facility] TBH EO # 0.2 [facility] Healthcar e TBH PLT [address] [facility] RBC 4.18 Low [facility] Healthcar e TBH WBC 9.7 [facility] Healthcar e CL[facility] Healthcar e Urinalysis macro (dipstick) panel (U)on 02-02-2025 Bilirubin, UA Negative Negative - 4(70) +++ mg/dL [facility] Blood, UA Negative Negative - 50 Celestino/mcL [facility] Healthcare Clarity, UA Clear [facility] Healthca re Color, UA Yellow [facility] Healthcar e Glucose, UA Negative Negative - 1999(110) ++++ mg/dL [facility] Interpretation and review of laboratory results Abnormal [facility] Ketones, UA Positive Negative - 160(16) ++++ mg/dL [facility] Comment on above: Trace Leukocytes, UA Positive Negative - 500+++ Dodie/mcL [facility] Comment on above: Small Nitrite, UA Negative Negative - Positive [facility] pH, UA 6 5 - 9 [facility] Protein, UA Trace Negative - 1999(20) ++++ mg/dL [facility] Spec Grav, UA 1.03 1 - 1.03 [facility] Urobilinogen, UA 0.2 0.2 - 12 mg/dL [facility] US OB LIMITED 1+ FETUSESon 0 - OB LIMITED 1+ FETUSES FINDINGS: Single viable [...] UA Negative Negative - 4(70) +++ mg/dL [facility] Blood, UA Negative Negative - 50 Celestino/mcL [facility] Healthcare Clarity, UA Clear [facility] Healthca re Color, UA Yellow [facility] Healthcar e Glucose, UA Negative Negative - 1999(110) ++++ mg/dL [facility] Interpretation and review of laboratory results Normal [facility] Ketones, UA Negative Negative - 160(16) ++++ mg/dL [facility] Leukocytes, UA Negative Negative - 500+++ Dodie/mcL [facility] Nitrite, UA Negative Negative - Positive [facility] pH, UA 7 5 - 9 [facility] Protein, UA Trace Negative - 1999(20) ++++ mg/dL [facility] Spec Grav, UA 1.025 1 - 1.03 [facility] Urobilinogen, UA 0.2 0.2 - 12 mg/dL [facility] [employer] No Panel InformationOrdered By: Radiologist Radiology on 12-19-2024 [facility] [employer] Work Phone: No Panel Informationon 12-19 Radiology Study observation (narrative) [facility] US OB ANATOMYon 12-19-2024 [place] [address] Ultrasound Report Signed Patient: PARIS MOSQUEDA MR#: [id number] : 1990 Acct:[id number] Age/Sex: 34 / F ADM Date: 12/19/24 Loc: US Attending Dr: Scooby Alvarado D.O. Ordering Physician: Scooby Alvarado D.O. Date of Service: 12/19/24 Procedure(s): US OB anatomy Accession Number(s): [id number] cc: [facility] ; Scooby Alvarado D.O. [place] [id number] Patient Name: PARIS MOSQUEDA MRN: [id number] date: 1990 Sex: F Assigned Patient Location: Current Patient Location: Accession/Order Number: [id number] Exam Date: 12/19/2024 11:33 Report Date: 12/19/2024 [...] Evangelista M.D. 12/19/2024 11:39 AM Dictation Location: [place] [address] Electronically authenticated by: [id number] Y Date: 12/19/2024 11:39 Dictated By: Sarita Evangelista M.D. Signed By: 12/19/24 1142 DD/ 1139 TD/TT: Merchandiser Retail Representative: [facility] Radiology, Radiologist, - 12/19/2024 [place] [address] Ultrasound Report Signed Patient: PARIS MOSQUEDA MR#: [id number] : 1990 Acct:[id number] Age/Sex: 34 / F ADM Date: 12/19/24 Loc: US Attending Dr: Scooby Alvarado D.O. Ordering Physician: Scooby Alvarado D.O. Date of Service: 12/19/24 Procedure(s): US OB anatomy Accession Number(s): [id number] cc: [facility] ; Scooby Alvarado D.O. The [place] [id number] Patient Name: PARIS MOSQUEDA MRN: [facility]:[id number] date: 1990 Sex: F Assigned Patient Location: US Current Patient Location: Accession/Order Number: [id number] Exam Date: 12/19/2024 11:33 Report Date: 12/19/2024 [...] Evangelista M.D. 12/19/2024 11:39 AM Dictation Location: [place] [address] Electronically authenticated by: [id number] Y Date: 12/19/2024 11:39 Dictated By: Sarita Evangelista M.D. Signed By: 12/19/24 1142 DD/ 1139 TD/TT: Merchandiser Retail Representative: [facility] OB CERVICAL LENGTHon 11-[address] [address] Ultrasound Report Signed Patient: PARIS MOSQUEDA MR#: [id number] : 1990 Acct:[id number] Age/Sex: 34 / F ADM Date: 12/19/24 Loc: US Attending Dr: Scooby Alvarado D.O. Ordering Physician: Scooby Alvarado D.O. Date of Service: 12/19/24 Procedure(s): US OB cervical length Accession Number(s): [id number] cc: [facility] ; Scooby Alvarado D.O. The [address] [address] Patient Name: PARIS MOSQUEDA MRN: [id number] date: 1990 Sex: F Assigned Patient Location: US Current Patient Location: US Accession/Order Number: [id number] Exam Date: 12/19/2024 11:33 Report Date: 12/19/2024 [...] Evangelista M.D. 12/19/2024 11:39 AM Dictation Location: [place] [address] Electronically authenticated by: [id number] Y Date: 12/19/2024 11:39 Dictated By: Sarita Evangelista M.D. Signed By: 12/19/24 1142 DD/ 1139 TD/TT: Merchandiser Retail Representative: [facility] Radiology, Radiologist, MD - 12/19/2024 [place] [address] Ultrasound Report Signed Patient: PARIS MOSQUEDA MR#: [id number] : 1990 Acct:[id number] Age/Sex: 34 / F ADM Date: 12/19/24 Loc: US Attending Dr: Scooby Alvarado D.O. Ordering Physician: Scooby Alvarado D.O. Date of Service: 12/19/24 Procedure(s): US OB cervical length Accession Number(s): [id number] cc: [facility] ; Socoby Alvarado D.O. The [place] [id number] Patient Name: PARIS MOSQUEDA MRN: [facility]:[id number] date: 1990 Sex: F Assigned Patient Location: US Current Patient Location: US Accession/Order Number: [id number] Exam Date: 12/19/2024 11:33 Report Date: 12/19/2024 [...] Evangelista M.D. 12/19/2024 11:39 AM Dictation Location: [place] [address] Electronically authenticated by: [id number] Y Date: 12/19/2024 11:39 Dictated By: Sarita Evangelista M.D. Signed By: 12/19/24 1142 DD/ 1139 TD/TT: Merchandiser Retail Representative: [facility] IGP,APTIMA HPV,AGE GDLNon AGE GDLN ACOG TESTING Note . [facility] Comment on above: TESTS RESULT FLAG UN ITS REF RANGE LAB Clinician Provided Cytology Information Source.............Vagina Other.............. No. of containers..01 ThinPrep Vial Age Ivonne GONSALVES Karine... 31 FLAG LEGEND: L-Low Normal,H-High Normal,LL-Alert Low,HH-Alert High <-Panic Low,>-Panic High,A-Abnormal,AA-Critical Abnormal Performed at: 01 =[address] [address] Cindy Pinzon MD, HPV APTIMA Negative Negative [facility] Comment on above: This nucleic acid am plification test detects fourteen high- risk HPV types (16,18,31,33,35,39,45,51,52,56,58,59,66,68) without differentiation. Performed at: =[address] [id number] National Secretary: Cindy Pinzon MD, Phone: [phone] Performed at: [address] [id number] National Secretary: Cindy Pinzon MD, Phone: [phone] IGP, APTIMA HPV, RFX 16/18,45 Note . [facility] Comment on above: TESTS RESULT FLAG UN ITS REF RANGE LAB DIAGNOSIS: 02 NEGATIVE FOR INTRAEPITHELIAL LESION OR MALIGNANCY. Specimen adequacy: 02 Satisfactory for evaluation. No endocervical component is identified. Performed by: 02 Yanni Dela Cruz, Shoe Associate ([facility]) . 02 Note: Note 02 The Pap [...] <-Panic Low,>-Panic High,A-Abnormal,AA-Critical Abnormal Performed at: [address] [address] Cindy Pinzon MD, SPATULA-ALONE VAGINA [facility] Healthcar e RECURRENT VAGINITIS (HTRX)on 12-06-2024 ATOPOBIUM VAGINAE 0 [facility] ATOPOBIUM VAGINAE Not detected [facility] Healthcare BVAB 2,3 (BACTERIAL VAGINOSIS ASSOCIATED BACTERIA 2, 3); MOBILUNCUS SPP 0 [facility] BVAB 2,3 (BACTERIAL VAGINOSIS ASSOCIATED BACTERIA 2, 3); MOBILUNCUS SPP Not detected [facility] KENA ALBICANS, PARAPSILOSIS, TROPICALIS 0 [facility] KENA ALBICANS, PARAPSILOSIS, TROPICALIS Not detected [facility] KENA GLABRATA 0 [facility] KENA GLABRATA Not detected [facility] KENA KRUSEI 0 [facility] KENA KRUSEI Not detected [facility] CHLAMYDIA TRACHOMATIS 0 [facility] CHLAMYDIA TRACHOMATIS Not detected N [facility] GARDNERELLA VAGINALIS 0 [facility] GARDNERELLA VAGINALIS Not detected N [facility] MEGASPHAERA (TYPES 1, 2) 0 [facility] MEGASPHAERA (TYPES 1, 2) Not detected [facility] MYCOPLASMA GENITALIUM 0 [facility] MYCOPLASMA GENITALIUM Not detected N [facility] NEISSERIA GONORRHOEAE 0 [facility] S [facility] NEISSERIA GONORRHOEAE Not detected N [facility] TRICHOMONAS VAGINALIS 0 NOM [facility] TRICHOMONAS VAGINALIS Not detected N [facility] Urinalysis macro (dipstick) panel (U)on 12-04-2024 Bilirubin, UA Negative Negative - 4(70) +++ mg/dL [facility] Blood, UA Negative Negative - 50 Celestino/mcL [facility] Clarity, UA Clear [facility] Healthca re Color, UA Yellow [facility] Healthcar e Glucose, UA Negative Negative - 1999(110) ++++ mg/dL [facility] Interpretation and review of laboratory results Normal [facility] Ketones, UA Negative Negative - 160(16) ++++ mg/dL [facility] Leukocytes, UA Positive Negative - 500+++ Dodie/mcL [facility] Comment on above: small Nitrite, UA Negative Negative - Positive [facility] pH, UA 7 5 - 9 [facility] Healthcar e Protein, UA Negative Negative - 1999(20) ++++ mg/dL [facility] Spec Grav, UA 1.015 1 - 1.03 [facility] Urobilinogen, UA 0.2 0.2 - 12 mg/dL [facility] Healthcar e Glucose random or fasting- P OCTOrdered By: James Rader on 11-24-2024 External Glucose Fasting Or Random (Fbs) 94 [facility] Urinalysis macro (dipstick) panel (U)on 11-13-2024 Bilirubin, UA Negative Negative - 4(70) +++ mg/dL [facility] Blood, UA Negative Negative - 50 Celestino/mcL [facility] Clarity, UA Clear [facility] Healthca re Color, UA Yellow [facility] Healthcar e Glucose, UA Negative Negative - 1999(110) ++++ mg/dL [facility] Interpretation and review of laboratory results Abnormal [facility] Ketones, UA Negative Negative - 160(16) ++++ mg/dL [facility] Leukocytes, UA Trace Negative - 500+++ Dodie/mcL [facility] Nitrite, UA Negative Negative - Positive [facility] pH, UA 6 5 - 9 [facility] [employer] Protein, UA Negative Negative - 2000(20) ++++ mg/dL [facility] Spec Grav, UA 1.01 1 - 1.03 [facility] Urobilinogen, UA 0.2 0.2 - 12 mg/dL [facility] BOX TESTon 11-11-2024 BOX TEST SENT OUT [facility] althcare BOX1 unity [facility] Healthcar e BOX2 11/11/24 [facility] [employer] UNITY BOX [facility] HCG ( test) Ql (U)o n 10-16-2024 Interpretation and review of laboratory results Abnormal [facility] Preg Test, Ur Positive Negative [facility] US OB TRANSVAGINALon 025 [...] II, MD, PHD at 16-Oct-2024 11:21:08 PM [facility] Normal Not Available Comment on above: [...] cul-de-sac fluid. Interpreted by: Electronically signed by KEATERINA FRENCH II, MD, PHD at 16-Oct-2024 11:21:08 PM [facility] IMAGING Ekaterina French MD - 10/16/2024 [...] 10 weeks 6 days (+/- 7 days). AFHEEM by today's ultrasound is May 08, 2025. 2. Small amount of cul-de-sac fluid. Interpreted by: Electronically signed by EKATERINA FRENCH II, MD, PHD at 16-Oct-2024 11:21:08 PM [facility] Radiology Study observation (narrative) [facility] US Pelvis transvaginalOrdere d By: Ekaterina French on 10-16-2024 [facility] [employer] Work Phone: Urinalysis macro (dipstick) panel (U)on 10-16-2024 Bilirubin, UA Negative Negative - 4(70) +++ mg/dL [facility] Blood, UA Negative Negative - 50 Celestino/mcL [facility] Clarity, UA Clear [facility] re Color, UA Yellow [facility] [employer] Glucose, UA Negative Negative - 1999(110) ++++ mg/dL [facility] Interpretation and review of laboratory results Abnormal [facility] Ketones, UA Positive Negative - 160(16) ++++ mg/dL [facility] Comment on above: 80mg/dL Leukocytes, UA Positive Negative - 500+++ Dodie/mcL [facility] Comment on above: small Nitrite, UA Negative Negative - Positive [facility] pH, UA 5.5 5 - [address] [facility] Protein, UA Positive Negative - 1999(20) ++++ mg/dL [facility] Comment on above: 30mg/dL Spec Grav, UA 1.03 1 - 1.03 [facility] Urobilinogen, UA 0.2 0.2 - 12 mg/dL [facility] HGB AND HCTon 12-21-2023 Hematocrit (Bld) [Volume fraction] 28.7 % Low 35-[address] [facility] Comment on above: Performed By: #### H H #### [facility] ([id number]) [address] [place] [address] 51389 Hemoglobin (Bld) [Mass/Vol] 9.8 g/dL Low 11.7-15.[address] [facility] Comment on above: Performed By: #### H H #### [facility] ([id number]) [address] [place] [address] 18583 Surgical Pathologyon 024 Surgical Pathology Normal [facility] Comment on above: Result Comment: [facility] [address] [place] [address] Surgical Pathology Consultation Patient Name:SYDNIE MOSQUEDAB:1990 (Age: 33)Gender:FTaken:12/21/2023eported:12/28/2023hysician(s):Randy Greene MD ([phone])Copy To: Rec. #:[id number]: #[id number] Final Pathologic Diagnosis Products of conception; removal: Products of conception (gestational sac with immature chorionic villi) and fragments of decidua with acute inflammation and necrosis. Report Electronically Signed Out adalberto/12/28/2023Pradeep Brannon MD Interpretation performed at [facility], [address] [place] [address], License number: [id number]. Clinical History Spontaneous , miscarriage. Gross Description Received in formalin labeled PANDA Karyotype: No Aggregate measurement: 5.2 x 3.8 x 2.0 cm. Placenta: 3.4 x 2.8 x 1.5 cm Decidua/Clot: 1.8 x 1.0 x 0.5 cm Gestational Sac: Yes, intact Tissue: No Molar Tissue: No Cassettes: A-C placenta (3, ss, [id number],m5) DM Received fresh-no site on container. POC for routine surgical path. Per Ariana Avendaño dm/12/21/2023GR Specimen(s) Received Products of conception Fee Codes(s): 1; 41121 US PREG LESS THAN 14 WKS WIT [...] Monroy MD on 12/21/2023 8:46 AM Normal [facility] BASIC METABOLIC PANLon 12-19 Anion gap [Moles/Vol] 6 mmol/L Normal 5-15 [facility] Comment on above: Performed By: #### B MP, CBCA, #### [facility] ([id number]) [address] [place] [address] 04660 Calcium [Mass/Vol] 8.9 mg/dL Normal 8.5-10.5 [facility] Comment on above: Performed By: #### B CHETAN NORWOOD, #### [facility] ([id number]) [address] [place] [address] 06031 Chloride [Moles/Vol] 105 mmol/L Normal 98-109 [facility] Comment on above: Performed By: #### B CHETAN NORWOOD, #### [facility] ([id number]) [address] [place] [address] 48643 CO2 [Moles/Vol] 24 mmol/L Normal 22-[address] [facility] Comment on above: Performed By: #### B CHETAN NORWOOD, #### [facility] ([id number]) [address] [place] [address] 44730 Creatinine [Mass/Vol] 0.74 mg/dL Normal 0.40-1.00 [facility] Comment on above: Result Comment: METH OD TRACEABLE TO IDMS STANDARD Performed By: #### B CHETAN NORWOOD, #### [facility] ([id number]) [address] [place] [address] 41633 eGFR (CKD-EPI) NON-RACE DEPENDENT >90 Normal >[address] [facility] Comment on above: Result Comment: Reported eGFR is based on the CKD-EPI 2020 equation that does not use a race coefficient. Performed By: #### B CHETAN NORWOOD, #### [facility] ([id number]) [address] [place] [address] 86510 Glucose [Mass/Vol] 149 mg/dL High 65-99 [facility] Comment on above: Performed By: #### B CHETAN NORWOOD, #### [facility] ([id number]) [address] [place] [address] 41846 Potassium [Moles/Vol] 3.6 mmol/L Normal 3.5-5.0 [facility] Comment on above: Performed By: #### B MP, CBCA, #### [facility] ([id number]) [address] [place] [address] 28765 Sodium [Moles/Vol] 135 mmol/L Normal 134-146 [facility] Comment on above: Performed By: #### B MP, CBCA, #### [facility] ([id number]) [address] [place] [address] 60363 Urea nitrogen [Mass/Vol] 10 mg/dL Normal 5-[address] [facility] Comment on above: Performed By: #### B MP, CBCA, #### [facility] ([id number]) [address] [place] [address] 43936 CBC AND AUTO DIFFon 12-20-19 24 ABSOLUTE BASOPHIL 0.0 X10E9/L Normal 0.0-0.2 [facility] Comment on above: Performed By: #### B MP, CBCA, #### [facility] ([id number]) [address] [place] [address] 22159 ABSOLUTE NEUTROPHIL 4.9 X10E9/L Normal 1.5-6.6 [facility] Comment on above: Performed By: #### B MP, CBCA, #### [facility] ([id number]) [address] [place] [address] 36949 Basophils/100 WBC (Bld) 0.4 % Normal [facility] Comment on above: Performed By: #### B MP, CBCA, #### [facility] ([id number]) [address] [place] [address] 63393 Eosinophils (Bld) [#/Vol] 0.3 10*3/uL Normal 0.0-0.[address] [facility] Comment on above: Performed By: #### B CUCO, CBCA, #### [facility] ([id number]) [address] [place] [address] 59986 Eosinophils/100 WBC (Bld) 2.3 % Normal [facility] Comment on above: Performed By: #### B CUCO, CBCA, #### [facility] ([id number]) [address] [place] [address] 52178 Erythrocyte distribution width (RBC) [Ratio] 13.8 % Normal 11.5-15.[address] [facility] Comment on above: Performed By: #### B CUCO, CBCA, #### [facility] ([id number]) [address] [place] [address] 14068 Hematocrit (Bld) [Volume fraction] 34.8 % Low 35-[address] [facility] Comment on above: Performed By: #### B CUCO, CBCA, #### [facility] ([id number]) [address] [place] [address] 14978 Hemoglobin (Bld) [Mass/Vol] 11.5 g/dL Low 11.7-15.[address] [facility] Comment on above: Performed By: #### B CUCO, CBCA, #### [facility] ([id number]) [address] [place] [address] 51384 Lymphocytes (Bld) [#/Vol] 4.6 10*3/uL High 1.0-3.[address] [facility] Comment on above: Performed By: #### B CUCO, CBCA, #### [facility] ([id number]) [address] [place] [address] 76899 Lymphocytes/100 WBC (Bld) 41.7 % Normal [facility] Comment on above: Performed By: #### B CUCO CBCA, #### [facility] ([id number]) [address] [place] [address] 81731 MCH (RBC) [Entitic mass] 27.8 pg Normal 27-[address] [facility] Comment on above: Performed By: #### Ghanshyam NORWOOD CBCA, #### [facility] ([id number]) [address] [place] [address] 54119 MCHC (RBC) [Mass/Vol] 33.0 g/dL Normal 32-36 [facility] Comment on above: Performed By: #### Ghanshyam NORWOOD CBCA, #### [facility] ([id number]) [address] [place] [address] 88733 MCV (RBC) [Entitic vol] 84 fL Normal 80-100 [facility] Comment on above: Performed By: #### Ghanshyam NORWOOD CBCA, #### [facility] ([id number]) [address] [place] [address] 36119 Monocytes (Bld) [#/Vol] 1.2 10*3/uL High 0-0.[address] [facility] Comment on above: Performed By: #### Ghanshyam NORWOOD CBCA, #### [facility] ([id number]) [address] [place] [address] 74042 Monocytes/100 WBC (Bld) 11.1 % Normal [facility] Comment on above: Performed By: #### Ghanshyam NORWOOD CBCA, #### [facility] ([id number]) [address] [place] [address] 02282 Neutrophils/100 WBC (Bld) 44.5 % Normal [facility] Comment on above: Performed By: #### B MP, CBCA, #### [facility] ([id number]) [address] [place] [address] 00590 Platelet mean volume (Bld) [Entitic vol] 7.6 fL Normal 7-[address] [facility] Comment on above: Performed By: #### B MP, CBCA, #### [facility] ([id number]) [address] [place] [address] 97500 Platelets (Bld) [#/Vol] 323 10*3/uL Normal 150-[address] [facility] Comment on above: Performed By: #### B MP, CBCA, #### [facility] ([id number]) [address] [place] [address] 41825 RBC COUNT 4.12 X10E12/L Normal 3.80-5.[address] [facility] Comment on above: Performed By: #### B MP, CBCA, #### [facility] ([id number]) [address] [place] [address] 21296 WBC (Bld) [#/Vol] 11.0 10*3/uL Normal 4.0-11.0 [facility] Comment on above: Performed By: #### B MP, CBCA, #### [facility] ([id number]) [address] [place] [address] 49388 HCG.beta subunit IA 3rd IS Q non 12-20-2023 HCG.beta subunit Qn 5361 m[IU]/mL Normal [facility] Comment on above: Result Comment: NEW [...] neoplasms. Performed By: #### B MP, CBCA, 04205-3 #### [facility] ([id number]) [address] [place] [address] 50112 HCG ( test) Ql (U)o n 12-19-2023 Beta HCG ( test) Ql (U) Positive Abnormal NEG [facility] Comment on above: Performed By: #### 2 106-3 #### [facility] ([id number]) [address] [place] [address] 91176 HCG.beta subunit [place] 3rd IS Q non 12-19-2023 HCG.beta subunit Qn 6620 m[IU]/mL Normal [facility] Comment on above: Result Comment: NEW [...] neoplasms. Performed By: #### 2 0415-6 #### [facility] ([id number]) [address] [place] [address] 70005 URN MACROSCOPIC NURon 2023 BILIRUBIN NIKITA Small Abnormal NEG [facility] Comment on above: Performed By: #### N UM #### [facility] ([id number]) [address] [place] [address] 48406 BLOOD/HGB NIKITA Large Abnormal NEG [facility] Comment on above: Performed By: #### N UM #### [facility] ([id number]) [address] [place] [address] 43595 GLUCOSE NIKITA Negative Normal NEG [facility] Comment on above: Performed By: #### N UM #### [facility] ([id number]) [address] [place] [address] 67374 KETONES NIKITA Trace Abnormal NEG [facility] Comment on above: Performed By: #### N UM #### [facility] ([id number]) [address] [place] [address] 11072 LEUKOCYTE ESTERASE NIKITA Negative Normal NEG [facility] Comment on above: Performed By: #### N UM #### [facility] ([id number]) [address] [place] [address] 60537 NITRITE NIKITA Negative Normal NEG [facility] Comment on above: Performed By: #### N UM #### [facility] ([id number]) [address] [place] [address] [place] [address] PH NIKITA 6.0 Normal 5.0-8.[address] [facility] Comment on above: Performed By: #### N UM #### [facility] ([id number]) [address] [place] [address] 73170 PROTEIN NIKITA 100 mg/dL Abnormal NEG [facility] Comment on above: Performed By: #### N UM #### [facility] ([id number]) [address] [place] [address] [place] [address] SPECIFIC GRAVITY NIKITA >=1.030 Normal 1.003-1.035 [facility] Comment on above: Performed By: #### N UM #### [facility] ([id number]) [address] [place] [address] UROBILINOGEN NIKITA 1.0 eu/dL Normal <1.1 [facility] Comment on above: Performed By: #### N UM #### [facility] ([id number]) [address] [facility], [place] [address] US PREG LESS THAN 14 WKS WIT [...] Overton MD on 12/19/2023 6:46 PM Normal [facility] Chlamydia/GC/Trich NAAon Chlamydia Trachomotis, CARLITOS Negative Normal Negative [facility] Comment on above: Performed By: #### C UU #### [facility] [address] [place] [address] #### GCCHLAMTRI #### [facility] , Neisseria Gonorrhoeae, CARLITOS Negative Normal Negative [facility] Comment on above: Performed By: #### C UU #### [facility] [address] [place] [address] [place] #### GCCHLAMTRI #### [facility] , Trichomonas CARLITOS Negative Normal Negative [facility] Comment on above: Result Comment: Perf ormed at: =G - [facility] [address] [id number] National Secretary: Cindy Pinzon MD, Phone: [phone] PERFORMED BY: [place] [address] PATHOLOGIST KITCHEN CHEF BROOKLYNN PEARCE M.D. Performed By: #### C UU #### [facility] [address] [place] [address] #### GCCHLAMTRI #### [facility] , Urine Cultureon 03-01-2022 Bacteria identified Cx Nom (U) 30,000 colonies/ml mixed bacterial skin contaminants 2 Days PERFORMED BY: [place] [address] PATHOLOGIST KITCHEN CHEF BROOKLYNN PEARCE M.D. Normal [facility] Comment on above: Performed By: #### C UU #### [facility] [address] [place] [address] [place] #### GCCHLAMTRI #### [facility] , Pap IG,rfx Aptima HPV all pt hon 11-16-2021 . . [facility] Comment on above: Performed By: #### H IV12 #### [facility] [address] [address] Andriy Stein DIAGNOSIS: Comment [facility] Comment on above: Result Comment: NEGA TIVE FOR INTRAEPITHELIAL LESION OR MALIGNANCY. THIS SPECIMEN WAS RESCREENED PART OF OUR PARTS ADVISOR PROGRAM. Performed By: #### H IV12 #### [facility] [address] [place] [address] Andriy Stein Methodology: Comment Normal [facility] Comment on above: Result Comment: This liquid based ThinPrep(R) pap test was screened with the use of an image guided system. Performed By: #### H IV12 #### [facility] [address] [place] [address] Andriy Stein Note: Comment Normal [facility] Comment on above: Result Comment: The Pap smear is a screening test designed to aid in the detection of premalignant and malignant conditions of the uterine cervix. It is not a diagnostic procedure and should not be used as the sole means of detecting cervical cancer. Both false-positive and false-negative reports do occur. . Performed By: #### H IV12 #### [facility] [address] [place] [address] Andriy Stein Performed by: Comment Normal [facility] Comment on above: Result Comment: Nathalia Dela Cruz, Crusher Wet [employer] Mica (ASCP) Performed By: #### H IV12 #### [facility] [address] [place] [address] Andriy Stein QC reviewed by: Comment Normal [facility] Comment on above: Result Comment: Hebert Motley, Supervisory [employer] (ASCP) Performed By: #### H IV12 #### [facility] [address] [place] [address] Andriy Stein Reflex Criteria: Comment Normal [facility] Comment on above: Result Comment: The HPV DNA reflex criteria were not met with this specimen result therefore, no HPV testing was performed. . Performed By: #### H IV12 #### [facility] [address] [place] [address] Andriy Stein Specimen adequacy: Comment Normal [facility] Comment on above: Result Comment: Sati sfactory for evaluation. Endocervical and/or squamous metaplastic cells (endocervical component) are present. Performed By: #### H IV12 #### [facility] [address] [id number] Andriy Sarita CBC AUTO DIFFon 07-31-2021 BASO # 0.0 103/ul Normal 0.0-0.1 [facility] Comment on above: Performed By: #### H IV12 #### [facility] [address] [id number] Andriy Sarita Basophils/100 WBC (Bld) 0.2 % Normal 0.2-2.0 [facility] Comment on above: Performed By: #### H IV12 #### [facility] [address] [id number] Andriy Sarita EO # 0.2 103/ul Normal 0.0-0.7 [facility] Comment on above: Performed By: #### H IV12 #### [facility] [address] [place], [place] [address] Andriy Sarita Eosinophils/100 WBC (Bld) 1.4 % Normal 0.9-7.0 [facility] Comment on above: Performed By: #### H IV12 #### [facility] [address] [place], [place] [address] Andriylogan Stein Erythrocyte distribution width (RBC) [Ratio] 16.9 % Critically high 11.0-15.0 [facility] Comment on above: Performed By: #### H IV12 #### [facility] [address] [place], [place] [address] Andriy Sarita Hematocrit (Bld) [Volume fraction] 28.9 % Critically low 36.0-48.0 [facility] Comment on above: Performed By: #### H IV12 #### [facility] [address] [place], [place] [address] Andriy Sarita Hemoglobin (Bld) [Mass/Vol] 9.2 g/dL Critically low 12.0-16.0 [facility] Comment on above: Result Comment: NUVIA ENT DELIVERED Performed By: #### H IV12 #### [facility] [address] [id number] Andriy Sarita IG # 0.07 10e3/ul Critically high 0.00-0.03 [facility] Comment on above: Performed By: #### H IV12 #### [facility] [address] [place], [place] [address] Andriy Sarita IG % 0.7 % Critically high 0.0-0.5 [facility] Comment on above: Performed By: #### H IV12 #### [facility] [address] [place], [place] [address] Andriy Sarita LYMPH # 3.2 103/ul Normal 1.2-3.8 [facility] Comment on above: Performed By: #### H IV12 #### [facility] [address] [place], [place] [address] Andriy Sarita Lymphocytes/100 WBC (Bld) 29.7 % Normal 20.5-60.0 [facility] Comment on above: Performed By: #### H IV12 #### [facility] [address] [place], [place] [address] Andriy Stein MANUAL DIFF REQ NO Normal [facility] Comment on above: Performed By: #### H IV12 #### [facility] [address] [place], [place] [address] Andriylogan Stein MCH (RBC) [Entitic mass] 28.0 pg Normal 26.7-34.0 [facility] Comment on above: Performed By: #### H IV12 #### [facility] [address] [place], [place] [address] Andriy Stein MCHC (RBC) [Mass/Vol] 31.8 g/dL Normal 29.9-35.2 [facility] Comment on above: Performed By: #### H IV12 #### [facility] [address] [place], [place] [address] Andriy Sarita MCV (RBC) [Entitic vol] 87.8 fL Normal 81.0-99.0 [facility] Comment on above: Performed By: #### H IV12 #### [facility] [address] [place] [address] Andriy Sarita MONO # 0.9 103/ul Critically high 0.3-0.8 [facility] Comment on above: Performed By: #### H IV12 #### [facility] [address] [place], [place] [address] Andriy Sarita Monocytes/100 WBC (Bld) 8.3 % Normal 1.7-12.0 [facility] Comment on above: Performed By: #### H IV12 #### [facility] [address] [place], [place] [address] Andriy Sarita NEUT # 6.3 103/ul Normal 1.4-6.5 [facility] Comment on above: Performed By: #### H IV12 #### [facility] [address] [place], [place] [address] Andriy Sarita Neutrophils/100 WBC (Bld) 59.7 % Normal 43.0-75.0 [facility] Comment on above: Performed By: #### H IV12 #### [facility] [address] [id number] Andriylogan Stein Platelet mean volume (Bld) [Entitic vol] 9.7 fL Normal 9.5-13.5 [facility] Comment on above: Performed By: #### H IV12 #### [facility] [address] [id number] Andriy Sarita PLT 173 103/ul Normal 150-450 [facility] Comment on above: Performed By: #### H IV12 #### [facility] [address] [place], [place] [address] Andriy Sarita RBC 3.29 106/ul Critically low 4.20-5.40 [facility] Comment on above: Performed By: #### H IV12 #### [facility] [address] [place], [place] [address] Andriy Sarita WBC 10.6 103/ul Normal 4.0-11.0 [facility] Comment on above: Performed By: #### H IV12 #### [facility] [address] [place], [place] [address] Andriy Sarita ASYMPTOMATIC COVID-19 ANTIGE Non 07-30-2021 EUA Statement SEE BELOW Normal [facility] Comment on above: Result Comment: This test [...] sooner. Performed By: #### H ANGELA #### [facility] [address] [place] [address] Andriy Stein SARS-CoV-2 (COVID-19) RNA CARLITOS+probe Ql (Unsp spec) Negative Normal NEGATIVE [facility] Comment on above: Result Comment: Nega tive results are presumptive. They do not preclude infection and should not be used as the sole basis for treatment decisions. Additional confirmatory testing by a molecular method should be considered. Performed By: #### H ANGELA #### [facility] [address] [place] [address] Andriy Stein CBC AUTO DIFFon 07-30-2021 BASO # 0.0 103/ul Normal 0.0-0.1 [facility] Comment on above: Performed By: #### C BC ####[facility] [address] [place], [place] [address]Dr. Sunil Con[address] Basophils/100 WBC (Bld) 0.2 % Normal 0.2-2.0 [facility] Comment on above: Performed By: #### C BC ####[facility] [address] [place], [place] [address]Dr. Sunil Conner EO # 0.1 103/ul Normal 0.0-0.7 [facility] Comment on above: Performed By: #### C BC ####[facility] [address] [place], [place] [address]Dr. Sunil Conner Eosinophils/100 WBC (Bld) 1.0 % Normal 0.9-7.0 [facility] Comment on above: Performed By: #### C BC ####[facility] [address] [place], [place] [address]Dr. Sunil Conner Erythrocyte distribution width (RBC) [Ratio] 17.0 % Critically high 11.0-15.0 [facility] Comment on above: Performed By: #### C BC ####[facility] [address] [place], [place] [address]DrWilson Conner Hematocrit (Bld) [Volume fraction] 37.5 % Normal 36.0-48.0 [facility] Comment on above: Performed By: #### C BC ####[facility] [address] [place], [place] [address]DrWilson Conner Hemoglobin (Bld) [Mass/Vol] 12.3 g/dL Normal 12.0-16.0 [facility] Comment on above: Performed By: #### C BC ####[facility] [address] [place], [place] [address]DrWilson Conner IG # 0.05 10e3/ul Critically high 0.00-0.03 [facility] Comment on above: Performed By: #### C BC ####[facility] [address] [place], [place] [address]DrWilson Conner IG % 0.5 % Normal 0.0-0.5 [facility] Comment on above: Performed By: #### C BC ####[facility] [address] [place], [place] [address]DrWilson Conner LYMPH # 2.8 103/ul Normal 1.2-3.8 [facility] Comment on above: Performed By: #### C BC ####[facility] [address] [place], [place] [address]DrWilson Conner Lymphocytes/100 WBC (Bld) 28.4 % Normal 20.5-60.0 [facility] Comment on above: Performed By: #### C BC ####[facility] [address] [place], [place] [address]DrWilson Conner MANUAL DIFF REQ NO Normal [facility] Comment on above: Performed By: #### C BC ####[facility] [address] [place] [id number] Conner MCH (RBC) [Entitic mass] 28.5 pg Normal 26.7-34.0 [facility] Comment on above: Performed By: #### C BC ####[facility] [address] [place] [address]DrWilson Conner MCHC (RBC) [Mass/Vol] 32.8 g/dL Normal 29.9-35.2 [facility] Comment on above: Performed By: #### C BC ####[facility] [address] [place], [place] [address]DrWilson Conner MCV (RBC) [Entitic vol] 86.8 fL Normal 81.0-99.0 [facility] Comment on above: Performed By: #### C BC ####[facility] [address] [place], [place] [address]DrWilson Conner MONO # 0.8 103/ul Normal 0.3-0.8 [facility] Comment on above: Performed By: #### C BC ####[facility] [address] [place], [place] [address]DrWilson Conner Monocytes/100 WBC (Bld) 7.9 % Normal 1.7-12.0 [facility] Comment on above: Performed By: #### C BC ####[facility] T[address] [place], [place] [address]DrWilson Conner NEUT # 6.0 103/ul Normal 1.4-6.5 [facility] Comment on above: Performed By: #### C BC ####[facility] If[address] [place], [place] [address]DrWilson Conner Neutrophils/100 WBC (Bld) 62.0 % Normal 43.0-75.0 [facility] Comment on above: Performed By: #### C BC ####[facility] Srs[address] [place], [place] [address]DrWilson Conner Platelet mean volume (Bld) [Entitic vol] 10.2 fL Normal 9.5-13.5 [facility] Comment on above: Performed By: #### C BC ####[facility] [address] [place] [id number]. Sunil Conner PLT 207 103/ul Normal 150-450 [facility] Comment on above: Performed By: #### C BC ####[facility] [address] [place] [address]Dr. Sunil Conner RBC 4.32 106/ul Normal 4.20-5.40 [facility] Comment on above: Performed By: #### C BC ####[facility] [address] [place] [address]Dr. uSnil Conner WBC 9.7 103/ul Normal 4.0-11.0 [facility] Comment on above: Performed By: #### C BC ####[facility] Crqabtbvas[address] [place], [place] [address]Dr. Sunil Conner DRUG SCREEN RAPID (URINE)on 07-30-2021 AMP Negative Normal NEGATIVE [facility] Comment on above: Performed By: #### D RUGRPD ####[facility] O[address]ef[address]qinp[address] [place], [place] [address]Dr. Sunil Conner BAR Negative Normal NEGATIVE [facility] Comment on above: Performed By: #### D RUGRPD ####[facility] Elrg[address]znq[address] [place], [place] [address]Dr. Sunil Conner BUP Negative Normal NEGATIVE [facility] Comment on above: Performed By: #### D RUGRPD ####[facility] [address] [place] [phone]. Sunil Conner BZO Negative Normal NEGATIVE [facility] Comment on above: Performed By: #### D RUGRPD ####[facility] J[address]jr[address]as[address] [place], [place] [address]Dr. Sunil Conner TAMICA Negative Normal NEGATIVE [facility] Comment on above: Performed By: #### D RUGRPD ####[facility] Xamarhydxt[address] [place], [place] [address]Dr. Sunil Conner CUT-OFFS SEE BELOW Normal [facility] Comment on above: Result Comment: AMP (Amphetamine): 500ng/mL, BAR (Barbituates): 200 ng/mL, BZO (Benzodiazepines): 150 ng/mL, BUP (Buprenorphine): 10 ng/mL, TAMICA (Cocaine): 150 ng/mL, mAMP (Methamphetamine): 500 ng/mL, MTD (Methadone): 200 ng/mL, OPI (Opiates): 100 ng/mL, OXY (Oxycodone): 100 ng/mL, PCP (Phencyclidine): 25 ng/mL, PPX (Propoxyphene): 300 ng/mL, THC (Cannabinoids): 50 ng/mL, TCA (Trycyclic Antidepressants): 300 ng/mL Performed By: #### D RUGRPD ####[facility] Llrext[address] [place], [place] [address]Dr. Chelsiebriana [facility] DRUG CUT HEADER DRUG CLASS TEST SYSTEM CUT-OFF CONCENTRATIONS ARE FOLLOWS: Normal [facility] Comment on above: Performed By: #### D RUGRPD ####[facility] Te[address]agnf[address] [place], [place] [address]Dr. Sunil [facility] mAMP Negative Normal NEGATIVE [facility] Comment on above: Performed By: #### D RUGRPD ####[facility] Q[address] [place], [place] [address]Dr. Sunil [facility] MTD Negative Normal NEGATIVE [facility] Comment on above: Performed By: #### D RUGRPD ####[facility] S[address] [place], [place] [address]Dr. Sunil [facility] OPI Negative Normal NEGATIVE [facility] Comment on above: Performed By: #### D RUGRPD ####[facility] To[address] [place], [place] [address]Dr. Chelsiebriana Conner OXY Negative Normal NEGATIVE [facility] Comment on above: Performed By: #### D RUGRPD ####[facility] Hobudqxocf[address] [place], [place] [address]Dr. Sunil [facility] PCP Negative Normal NEGATIVE [facility] Comment on above: Performed By: #### D RUGRPD ####[facility] [address] [place], [place] [address]Gs. Sunil Conner PPX Negative Normal NEGATIVE [facility] Comment on above: Performed By: #### D RUGRPD ####[facility] [address] [place], [place] [address]Mg. Sunil Conner TCA Negative Normal NEGATIVE [facility] Comment on above: Performed By: #### D RUGRPD ####[facility] [address] [place], [place] [address]Pu. Sunil Conner THC Negative Normal NEGATIVE [facility] Comment on above: Performed By: #### D RUGRPD ####[facility] [address] [place], [place] [address]Qk. Sunil Conner TYPE AND SCREENon 07-30-2021 TYPE AND SCREEN Negative Normal [facility] Comment on above: Performed By: #### T NS #### [facility] [address] [place] [address] [address] Sunil Conner US PREG BIOPHY W [...] by: NADIA DOOLEY Date: 2021-07-13 10:55 Normal [facility] US PREG GROWTHon 07-11-2021 US PREG GROWTH [...] EFW: 6 lbs. 3 oz., 37% FL/AC: 0.230763 FL/BPD: 0.477101 HC/AC: 0.611795 GESTATIONAL AGE: Age by EDC: 36 weeks 4 days FAHEEM by EDC: 08/04/2021 Age by US: 35 weeks 3 days FAHEEM by US: 08/12/2021 IMPRESSION: Normal interval growth Electronically authenticated by: NADIA DOOLEY Date: 2021-07-11 10:28 Normal [facility] COVID Quick Testingon 2021 Result Negative [facility] Other Quick Strepon 07-09-2021 S. pyogenes Org specific cx Ql (Throat) Negative [employer] [employer] Other Quick Strep [facility] Other GROUP B STREP CULTUREon 06-25 S. agalactiae Ag Ql (Unsp spec) Culture Observations: NEGATIVE FOR GROUP B STREPTOCOCCUS. Normal [facility] Comment on above: Performed By: #### G BSCX #### [facility] [address] [place] [address] Dr. Sunil Conner US PREG GROWTHon 06-20-2021 PREG GROWTH EXAMINATION: US [...] EFW: 4 lbs. 14 oz., 53% FL/AC: 0.993457 FL/BPD: 0.808208 HC/AC: 1.806301 GESTATIONAL AGE: Age by EDC: 33 weeks 4 days FAHEEM by EDC: 08/04/2021 Age by US: 33 weeks 1 day FAHEEM by US: 08/07/2021 IMPRESSION: Normal interval growth Electronically authenticated by: NADIA DOOLEY Date: 2021-06-20 11:46 Normal [facility] CBC AUTO DIFFon 06-08-2021 BASO # 0.0 103/ul Normal 0.0-0.1 [facility] Comment on above: Performed By: #### H IV12 #### [facility] [address] [place] [address] Andriy Sarita Basophils/100 WBC (Bld) 0.5 % Normal 0.2-2.0 [facility] Comment on above: Performed By: #### H IV12 #### [facility] [address] [place] [address] Andriy Sarita EO # 0.1 103/ul Normal 0.0-0.7 [facility] Comment on above: Performed By: #### H IV12 #### [facility] [address] [place] [address] Andriy Sarita Eosinophils/100 WBC (Bld) 1.3 % Normal 0.9-7.0 [facility] Comment on above: Performed By: #### H IV12 #### [facility] [address] [place] [address] Andriy Sarita Erythrocyte distribution width (RBC) [Ratio] 19.8 % Critically high 11.0-15.0 [facility] Comment on above: Performed By: #### H IV12 #### [facility] [address] [place] [address] Andriy Sarita Hematocrit (Bld) [Volume fraction] 34.9 % Critically low 36.0-48.0 [facility] Comment on above: Performed By: #### H IV12 #### [facility] [address] [place] [address] Andriy Sarita Hemoglobin (Bld) [Mass/Vol] 11.1 g/dL Critically low 12.0-16.0 [facility] Comment on above: Performed By: #### H IV12 #### [facility] [address] [place] [address] Andriy Sarita IG # 0.04 10e3/ul Critically high 0.00-0.03 [facility] Comment on above: Performed By: #### H IV12 #### [facility] [address] [place] [address] Andriy Sarita IG % 0.5 % Normal 0.0-0.5 [facility] Comment on above: Performed By: #### H IV12 #### [facility] [address] [place] [address] Andriy Sarita LYMPH # 2.1 103/ul Normal 1.2-3.8 [facility] Comment on above: Performed By: #### H IV12 #### [facility] [address] [place] [address] Andriy Stein Lymphocytes/100 WBC (Bld) 24.8 % Normal 20.5-60.0 [facility] Comment on above: Performed By: #### H IV12 #### [facility] [address] [place] [address] Andriy Stein MANUAL DIFF REQ NO Normal [facility] Comment on above: Performed By: #### H IV12 #### [facility] [address] [place], [place] [address] Andriylogan Stein MCH (RBC) [Entitic mass] 27.5 pg Normal 26.7-34.0 [facility] Comment on above: Performed By: #### H IV12 #### [facility] [address] [place], [place] [address] Andriylogan Stein MCHC (RBC) [Mass/Vol] 31.8 g/dL Normal 29.9-35.2 [facility] Comment on above: Performed By: #### H IV12 #### [facility] [address] [place], [place] [address] Andriylogan Stein MCV (RBC) [Entitic vol] 86.6 fL Normal 81.0-99.0 [facility] Comment on above: Performed By: #### H IV12 #### [facility] [address] [place] [address] Andriy Sarita MONO # 0.7 103/ul Normal 0.3-0.8 [facility] Comment on above: Performed By: #### H IV12 #### [facility] [address] [place], [place] [address] Andriy Stein Monocytes/100 WBC (Bld) 8.7 % Normal 1.7-12.0 [facility] Comment on above: Performed By: #### H IV12 #### [facility] [address] [place] [address] Andriy Sarita NEUT # 5.4 103/ul Normal 1.4-6.5 [facility] Comment on above: Performed By: #### H IV12 #### [facility] [address] [place], [place] [address] Andriy Stein Neutrophils/100 WBC (Bld) 64.2 % Normal 43.0-75.0 [facility] Comment on above: Performed By: #### H IV12 #### [facility] [address] [place], [place] [address] Andriylogan Stein Platelet mean volume (Bld) [Entitic vol] 9.9 fL Normal 9.5-13.5 [facility] Comment on above: Performed By: #### H IV12 #### [facility] [address] [place], [place] [address] Andriylogan Rodgersen PLT 232 103/ul Normal 150-450 [facility] Comment on above: Performed By: #### H IV12 #### [facility] [address] [place], [place] [address] Andriy Sarita RBC 4.03 106/ul Critically low 4.20-5.40 [facility] Comment on above: Performed By: #### H IV12 #### [facility] [address] [place], [place] [address] Andriy Sarita WBC 8.5 103/ul Normal 4.0-11.0 [facility] Comment on above: Performed By: #### H IV12 #### [facility] [address] [place], [place] [address] Andriylogan Stein GTT 3 HR PREGon 04-30-2021 Glucose [Mass/Vol] 85 mg/dL Normal 74-106 [facility] Comment on above: Performed By: #### G TT3P ####[facility] [address] [place] [address]Dr. Sunil Conner Glucose [Mass/Vol] 188 mg/dL Normal [facility] Comment on above: Performed By: #### G TT3P ####[facility] [address] [place] [address]Dr. Sunil Conner Glucose [Mass/Vol] 133 mg/dL Normal [facility] Comment on above: Performed By: #### G TT3P ####[facility] [address] [place] [address]Dr. Sunil Conner Glucose [Mass/Vol] 122 mg/dL Normal [facility] Comment on above: Performed By: #### G TT3P ####[facility] [address] [place] [address]Dr. Sunil Conner CBC AUTO DIFFon 04-28-2021 BASO # 0.0 103/ul Normal 0.0-0.1 [facility] Comment on above: Performed By: #### C BC #### [facility] [address] [address] [address] Sunil Conner Basophils/100 WBC (Bld) 0.3 % Normal 0.2-2.0 [facility] Comment on above: Performed By: #### C BC #### [facility] [address] [address] [address] Sunil Conner EO # 0.1 103/ul Normal 0.0-0.7 [facility] Comment on above: Performed By: #### C BC #### [facility] [address] [address] [address] Sunil Conner Eosinophils/100 WBC (Bld) 1.2 % Normal 0.9-7.0 [facility] Comment on above: Performed By: #### C BC #### [facility] [address] [address] [address] Sunil Conner Erythrocyte distribution width (RBC) [Ratio] 14.6 % Normal 11.0-15.0 [facility] Comment on above: Performed By: #### C BC #### [facility] [address] [place] [address] Dr. Sunil Conner Hematocrit (Bld) [Volume fraction] 31.6 % Critically low 36.0-48.0 [facility] Comment on above: Performed By: #### C BC #### [facility] [address] [place] [address] Dr. Sunil Conner Hemoglobin (Bld) [Mass/Vol] 9.9 g/dL Critically low 12.0-16.0 [facility] Comment on above: Performed By: #### C BC #### [facility] [address] [place] [address] Dr. Sunil Conner IG # 0.05 10e3/ul Critically high 0.00-0.03 [facility] Comment on above: Performed By: #### C BC #### [facility] [address] [place] [address] Dr. Sunil Conner IG % 0.5 % Normal 0.0-0.5 [facility] Comment on above: Performed By: #### C BC #### [facility] [address] [place] [address] Dr. Snuil Conner LYMPH # 2.4 103/ul Normal 1.2-3.8 [facility] Comment on above: Performed By: #### C BC #### [facility] [address] [place] [address] Dr. Sunil Conner Lymphocytes/100 WBC (Bld) 25.6 % Normal 20.5-60.0 [facility] Comment on above: Performed By: #### C BC #### [facility] [address] [place] [address] Dr. Sunil Conner MANUAL DIFF REQ NO Normal [facility] Comment on above: Performed By: #### C BC #### [facility] [address] [place] [address] Dr. Sunil Conner MCH (RBC) [Entitic mass] 25.8 pg Critically low 26.7-34.0 [facility] Comment on above: Performed By: #### C BC #### [facility] [address] [address] [address] Sunil Conner MCHC (RBC) [Mass/Vol] 31.3 g/dL Normal 29.9-35.2 [facility] Comment on above: Performed By: #### C BC #### [facility] [address] [address] [address] Sunil Conner MCV (RBC) [Entitic vol] 82.3 fL Normal 81.0-99.0 [facility] Comment on above: Performed By: #### C BC #### [facility] [address] [place] [address] Dr. Sunil Conner MONO # 0.5 103/ul Normal 0.3-0.8 [facility] Comment on above: Performed By: #### C BC #### [facility] [address] [place] [address] Dr. Sunil Conner Monocytes/100 WBC (Bld) 5.3 % Normal 1.7-12.0 [facility] Comment on above: Performed By: #### C BC #### [facility] [address] [place] [address] Dr. Sunil Conner NEUT # 6.4 103/ul Normal 1.4-6.5 [facility] Comment on above: Performed By: #### C BC #### [facility] [address] [place] [address] Dr. Sunil Conner Neutrophils/100 WBC (Bld) 67.1 % Normal 43.0-75.0 [facility] Comment on above: Performed By: #### C BC #### [facility] [address] [place] [address] Dr. Sunil Conner Platelet mean volume (Bld) [Entitic vol] 10.3 fL Normal 9.5-13.5 [facility] Comment on above: Performed By: #### C BC #### [facility] [address] [place] [address] Dr. Sunil Conner PLT 255 103/ul Normal 150-450 [facility] Comment on above: Performed By: #### C BC #### [facility] [address] [place] [address] Dr. Sunil Conner RBC 3.84 106/ul Critically low 4.20-5.40 [facility] Comment on above: Performed By: #### C BC #### [facility] [address] [address] [address] Sunil Conner WBC 9.5 103/ul Normal 4.0-11.0 [facility] Comment on above: Performed By: #### C BC #### [facility] [address] [place] [address] Dr. Sunil Conner GLUCOSE - 1HRon 04-28-2021 Glucose [Mass/Vol] 171 mg/dL Critically high 74-106 [facility] Comment on above: Performed By: #### H IV12 #### [facility] [address] [place] [address] Andriy Stein VAGINITIS/VAGINOSIS DNA PROB Douglas 04-21-2021 Kena species Positive Abnormal Negative [facility] Comment on above: Performed By: #### V AGINT #### [facility] [address] [place] [address] Dr. Sunil Conner Gardnerella vaginalis Negative Normal Negative [facility] Comment on above: Performed By: #### V AGINT #### [facility] [address] [place] [address] Dr. Sunil Conner Trichomonas vaginalis Negative Normal Negative [facility] Comment on above: Performed By: #### V AGINT #### [facility] [address] [place] [address] Dr. Sunil Conner US PREG ANATOMY SINGLEon [...] weeks 3 days EFW:12 ounces, 47%; FL/AC: 0.626960 FL/BPD: 0.571618 HC/AC: 1.997664 GESTATIONAL AGE: Age by EDC: 20 weeks 4 days FAHEEM by EDC: 08/04/2021 Age by current US: 20 weeks 2 days FAHEEM by current US: 08/06/2021 IMPRESSION: Normal anatomy scan *Reference: [employer] Practice Guideline for the performance of Obstetric Ultrasound Examinations, March 25, 2007. Electronically authenticated by: NADIA DOOLEY Date: 2021-03-21 16:13 Normal [facility] PAP ACOG PANEL 3: 21 to 29on 02-21-2021 . . Normal [facility] Comment on above: Result Comment: Perf ormed at: WB Performed By: #### H IV12 #### [facility] [address] [place] [address] Andriylogan Rodgersen Age Gdln ACOG Testing 21-29 Normal [facility] Comment on above: Performed By: #### H IV12 #### [facility] [address] [address] Andriy Stein Chlamydia, Nuc. Acid Amp Negative Normal Negative [facility] Comment on above: Result Comment: Perf ormed at: =G Performed By: #### H IV12 #### [facility] [address] [address] Andriy Stein DIAGNOSIS: Comment Abnormal [facility] Comment on above: Result Comment: EPIT HELIAL CELL ABNORMALITY. LOW-GRADE SQUAMOUS INTRAEPITHELIAL LESION (LSIL); MILD DYSPLASIA. Performed at: WB Performed By: #### H IV12 #### [facility] [address] [address] Andriy Stein Electronically signed by: Comment Normal [facility] Comment on above: Result Comment: Mayela العلي MD, Pathologist Performed at: WB Performed By: #### H IV12 #### [facility] [address] [place] [address] Andriy Stein Gonococcus, Nuc. Acid Amp Negative Normal Negative [facility] Comment on above: Result Comment: Perf ormed at: =G Performed By: #### H IV12 #### [facility] [address] [id number] Andriy Stein Methodology: Comment Normal [facility] Comment on above: Result Comment: This liquid based ThinPrep(R) pap test was screened with the use of an image guided system. Performed at: WB Performed By: #### H IV12 #### [facility] [address] [place] [address] Andriy Stein Note: Comment Normal [facility] Comment on above: Result Comment: The Pap smear is a screening test designed to aid in the detection of premalignant and malignant conditions of the uterine cervix. It is not a diagnostic procedure and should not be used as the sole means of detecting cervical cancer. Both false-positive and false-negative reports do occur. . Performed at: WB Performed By: #### H IV12 #### [facility] [address] [place] [address] Andriy Stein Pathologist Provided ICD10 Comment Normal [facility] Comment on above: Result Comment: [id number]. [id number] Performed at: WB Performed By: #### H IV12 #### [facility] [address] [place] [address] Andriy Stein Performed by: Comment Normal [facility] Comment on above: Result Comment: Funmi Partida, Crusher Wet Ground Mica (ASCP) Performed at: WB Performed By: #### H IV12 #### [facility] [address] [place] [address] Andriy Stein Recommendation: Comment Abnormal [facility] Comment on above: Result Comment: Sugg est follow up as clinically appropriate. Performed at: WB Performed By: #### H IV12 #### [facility] [address] [address] Andriylogan Stein Reflex Criteria: Comment Normal [facility] Comment on above: Result Comment: The HPV DNA reflex criteria were not met with this specimen result therefore, no HPV testing was performed. . Performed at: WB Performed By: #### H IV12 #### [facility] [address] [address] Andriylogan Stein Specimen adequacy: Comment Normal The [facility] Comment on above: Result Comment: Sati sfactory for evaluation. Endocervical and/or squamous metaplastic cells (endocervical component) are present. Performed at: WB Performed By: #### H IV12 #### [facility] [address] [address] Andriy Sarita AFP MATERNAL FOR SPINA BIFID Aon 02-19-2021 AFP MoM 1.15 Normal [facility] Comment on above: Performed By: #### H IV12 #### [facility] [address] [address] Andriylogan Stein AFP Value 35.0 ng/mL Normal [facility] Comment on above: Performed By: #### H IV12 #### [facility] [address] [address] Andriylogan Stein AFP, Serum for Spina Bifida Report Normal [facility] Comment on above: Performed By: #### H IV12 #### [facility] [address] [address] Andriy Stein Comment Comment Normal [facility] Comment on above: Result Comment: Jassi Perez, Ph.D., [facility] Director . References: Available Upon Request. . Multiples Of Median Cutoffs For AFP Elevations Beebe 2.5 Black 2.8 IDD 2.0 Twins 4.5 Abbreviation Definitions IDD - Insulin Dep Diabetes OSBR - Open Spina Bifida Risk . For further inquiries contact [employer] [facility] at [phone]. Performed By: #### H IV12 #### [facility] [address] [id number] Andriy Stein Gest Age Collection Date 16.0 weeks Normal [facility] Comment on above: Performed By: #### H IV12 #### [facility] [address] [place] [address] Andriy Stein Gestat, Age Based on Ultrasound Normal [facility] Comment on above: Result Comment: 16.0 on 02/17/2021 Recalculations are not recommended when gestational dating by LMP and ultrasound are within 10 days. Performed By: #### H IV12 #### [facility] [address] [place] [address] Andriy Stein Insulin Dep Diabetes No Normal [facility] Comment on above: Performed By: #### H IV12 #### [facility] [address] [place] [address] Andriy Stein Interpretation Comment Normal [facility] Comment on above: Result Comment: Inte [...] Customer Services to discuss available options. The [employer] [place] [employer] recommends amniocentesis be offered to women age 35 and older. Performed By: #### H IV12 #### [facility] [address] [place] [address] Andriy Stein Maternal Age at FAHEEM 31.[address] [facility] Comment on above: Performed By: #### H IV12 #### [facility] [address] [place] [address] Andriy Stein Multiple Gestation No Normal [facility] Comment on above: Performed By: #### H IV12 #### [facility] [address] [place] [address] Andriy Stein OSBR Risk 1 [place] [address] Normal [facility] Comment on above: Performed By: #### H IV12 #### [facility] [address] [place] [address] Andriy Stein PDF . Normal The [facility] Comment on above: Performed By: #### H IV12 #### [facility] [address] [id number] Andriy Stein Race Normal [facility] Comment on above: Performed By: #### H IV12 #### [facility] [address] [place], [place] [address] Andriy Stein Test Results: Negative Normal [facility] Comment on above: Performed By: #### H IV12 #### [facility] [address] [address] Andriy Stein HEMOGLOBINOPATHY FRACTIONATI ON CASCADEon 02-07-2021 HGB A 97.3 % Normal 96.4-98.8 [facility] Comment on above: Performed By: #### H GBCAS ####[facility] [address] [address]Gerken Sarita HGB A2 2.7 % Normal 1.8-3.2 [facility] Comment on above: Performed By: #### H GBCAS ####[facility] [address] [address]Gerken Sarita HGB F 0.0 % Normal 0.0-2.0 [facility] Comment on above: Performed By: #### H GBCAS ####[facility] [address] [address]Andriy Stein HGB S 0.0 % Normal 0.0 The [facility] Comment on above: Performed By: #### H GBCAS ####[facility] [address] [id number] Stein Interpretation: Comment Normal [facility] Comment on above: Result Comment: Norm al hemoglobin present; no hemoglobin variant or thalassemia observed. Performed By: #### H GBCAS ####[facility] [address] [address]Andriy Stein VARICELLA IGG ABon 1 Varicella Zoster IgG 406 index Normal Immune >165 The [facility] Comment on above: Result Comment: Nega tive <135 Equivocal 135 - 165 Positive >165 A positive result generally indicates exposure to the pathogen or administration of specific immunoglobulins, but it is not indication of active infection or stage of disease. Performed By: #### V IGNACIOEL ####[facility] [address] [address]Andriy Stein HEP B SURFACE ANTIGEN SCREEN on 02-06-2021 HBsAg Screen Negative Normal Negative [facility] Comment on above: Performed By: #### H BSANS #### [facility] [address] [place] [address] Andriy Stein HEPATITIS C ANTIBODYon 02-06 Hep C Virus Ab <0.1 Normal 0.0-0.9 [facility] Comment on above: Result Comment: Nega tive: < 0.8 Indeterminate: 0.8 - 0.9 Positive: > 0.9 . The CDC recommends that a positive HCV antibody result be followed up with a HCV Nucleic Acid Amplification test (872557). Performed By: #### H CV ####[facility] [address] [place], [place] [address]Andriy Stein HIV 1 AND 2 WITH REFLEXon HIV Screen 4th Generation wRfx Non-Reactive Normal Non Reactive The [facility] Comment on above: Performed By: #### H IV12 #### [facility] [address] [place] [address] Andriy Stein RPR QUANTon 02-06-2021 Rapid Plasma Reagin, Quant Non-Reactive Normal NonRea<1:1 The [facility] Comment on above: Performed By: #### H IV12 #### [facility] [address] [place] [address] Andriy Stein RUBELLA AB IGGon 02-06-2021 Rubella Antibodies, IgG 1.72 index Normal Immune >0.99 [facility] Comment on above: Result Comment: Non- immune <0.90 Equivocal 0.90 - 0.99 Immune >0.99 Performed By: #### H IV12 #### [facility] [address] [place] [address] Andriy Stein CBC AUTO DIFFon 02-05-2021 BASO # 0.0 103/ul Normal 0.0-0.1 [facility] Comment on above: Performed By: #### H BSANS #### [facility] [address] [place], [place] [id number] Andriy Sarita Basophils/100 WBC (Bld) 0.3 % Normal 0.2-2.0 [facility] Comment on above: Performed By: #### H BSANS #### [facility] [address] [place] [address] Andriy Sarita EO # 0.2 103/ul Normal 0.0-0.7 [facility] Comment on above: Performed By: #### H BSANS #### [facility] [address] [place] [address] Andriy Sarita Eosinophils/100 WBC (Bld) 1.7 % Normal 0.9-7.0 [facility] Comment on above: Performed By: #### H BSANS #### [facility] [address] [place] [address] Andriy Sarita Erythrocyte distribution width (RBC) [Ratio] 14.0 % Normal 11.0-15.0 [facility] Comment on above: Performed By: #### H BSANS #### [facility] [address] [place] [address] Andriy Sarita Hematocrit (Bld) [Volume fraction] 34.3 % Critically low 36.0-48.0 [facility] Comment on above: Performed By: #### H BSANS #### [facility] [address] [place] [address] Andriy Sarita Hemoglobin (Bld) [Mass/Vol] 11.0 g/dL Critically low 12.0-16.0 [facility] Comment on above: Performed By: #### H BSANS #### [facility] [address] [place] [address] Andriy Sarita IG # 0.02 10e3/ul Normal 0.00-0.03 [facility] Comment on above: Performed By: #### H BSANS #### [facility] [address] [place] [address] Andriy Sarita IG % 0.2 % Normal 0.0-0.5 [facility] Comment on above: Performed By: #### H BSANS #### [facility] [address] [place], [place] [address] Andriy Sarita LYMPH # 3.4 103/ul Normal 1.2-3.8 [facility] Comment on above: Performed By: #### H BSANS #### [facility] [address] [place], [place] [address] Andriy Sarita Lymphocytes/100 WBC (Bld) 38.7 % Normal 20.5-60.0 [facility] Comment on above: Performed By: #### H BSANS #### [facility] [address] [place], [place] [address] Andriy Sarita MANUAL DIFF REQ NO Normal [facility] Comment on above: Performed By: #### H BSANS #### [facility] [address] [place] [address] Andriy Sarita MCH (RBC) [Entitic mass] 27.2 pg Normal 26.7-34.0 [facility] Comment on above: Performed By: #### H BSANS #### [facility] [address] [place], [place] [address] Andriylogan Stein MCHC (RBC) [Mass/Vol] 32.1 g/dL Normal 29.9-35.2 [facility] Comment on above: Performed By: #### H BSANS #### [facility] [address] [place], [place] [address] Andriy Sarita MCV (RBC) [Entitic vol] 84.9 fL Normal 81.0-99.0 [facility] Comment on above: Performed By: #### H BSANS #### [facility] [address] [place], [place] [address] Andriy Sarita MONO # 0.7 103/ul Normal 0.3-0.8 [facility] Comment on above: Performed By: #### H BSANS #### [facility] [address] [place], [place] [address] Andriy Sarita Monocytes/100 WBC (Bld) 8.3 % Normal 1.7-12.0 [facility] Comment on above: Performed By: #### H ANGELA #### [facility] [address] [place], [place] [address] Andriy Sarita NEUT # 4.4 103/ul Normal 1.4-6.5 [facility] Comment on above: Performed By: #### H ANGELA #### [facility] [address] [place], [place] [address] Andriy Sarita Neutrophils/100 WBC (Bld) 50.8 % Normal 43.0-75.0 [facility] Comment on above: Performed By: #### H ANGELA #### [facility] [address] [id number] Andriylogan Stein Platelet mean volume (Bld) [Entitic vol] 9.8 fL Normal 9.5-13.5 [facility] Comment on above: Performed By: #### H ANGELA #### [facility] [address] [id number] Andriy Sarita PLT 248 103/ul Normal 150-450 [facility] Comment on above: Performed By: #### H ANGELA #### [facility] [address] [phone] Andriy Sarita RBC 4.04 106/ul Critically low 4.20-5.40 [facility] Comment on above: Performed By: #### H ANGELA #### [facility] [address] [id number] Andriy Sarita WBC 8.7 103/ul Normal 4.0-11.0 [facility] Comment on above: Performed By: #### H BSADOM #### [facility] [address] [place], [place] [address] Andriy Sarita GLYCOHEMOGLOBIN A1Con 2020 ADA RECOMMENDATION ADA THERAPEUTIC TARGET 6.0 - 7.0 ACTION SUGGESTED > 7.0 Normal [facility] Comment on above: Performed By: #### A 1C ####[facility] [address] [place], [place] [address]Iddbix Sarita Glucose [Mass/Vol] 111 mg/dL Normal [facility] Comment on above: Performed By: #### A 1C ####[facility] [address] [place], [place] [address]Ltgfal Sarita HbA1c (Bld) [Mass fraction] 5.5 % Normal <=6.0 [facility] Comment on above: Performed By: #### A 1C ####[facility] [address] [place], [place] [address]Ialddv Sarita GTT 3 HR PREGon 02-05-2021 Glucose [Mass/Vol] 79 mg/dL Normal 74-106 [facility] Comment on above: Performed By: #### H BSANS #### [facility] [address] [place], [place] [address] Andriy Sarita Glucose [Mass/Vol] 117 mg/dL Normal [facility] Comment on above: Performed By: #### H BSANS #### [facility] [address] [place], [place] [address] Andriy Sarita Glucose [Mass/Vol] 93 mg/dL Normal [facility] Comment on above: Performed By: #### H BSANS #### [facility] [address] [place], [place] [address] Andriy Sarita Glucose [Mass/Vol] 46 mg/dL Critically low Th [facility] Comment on above: Performed By: #### H BSANS #### [facility] [address] [place], [place] [address] Andriy Sarita TYPE AND SCREENon 02-05-2021 TYPE AND SCREEN Antibody Screen NEGATIVE Blood Bank Notes completed by [email or web address] ABO Rh Typing A Rh Positive Blood Bank Notes completed by yudelka [facility] Comment on above: Performed By: #### T NS #### [facility] [address] [place], [place] [address] Andriy Sarita CULTURE URINEon 01-28-2021 CULTURE URINE Culture Observations: MODERATE GROWTH OF MIXED GENITAL HUBER. NO POTENTIAL PATHOGENS SEEN. Normal The [facility] Comment on above: Performed By: #### U RCX ####[facility] [address] [place], [place] [address]Fhrsof Sarita UA RANDOM W/MICROSCOPICon BACTERIA SMALL Abnormal NONE SEEN The [facility] Comment on above: Performed By: #### H BSANS #### [facility] [address] [address] Andriy Sarita Bilirubin Ql (U) Negative Normal NEGATIVE The [facility] Comment on above: Performed By: #### H BSANS #### [facility] [address] [place] [address] Andriy Sarita CAST NONE SEEN Normal NONE SEEN The [facility] Comment on above: Performed By: #### H BSANS #### [facility] [address] [place] [address] Andriy Sarita Clarity (U) CLEAR Normal CLEAR The [facility] Comment on above: Performed By: #### H BSANS #### [facility] [address] [place] [address] Andriy Sarita Color (U) YELLOW Normal YELLOW The [facility] Comment on above: Performed By: #### H BSANS #### [facility] [address] [place] [address] Andriy Sarita Crystals LM Nom (Urine sed) NONE SEEN Normal NONE SEEN The [facility] Comment on above: Performed By: #### H BSANS #### [facility] [address] [place] [address] Andriy Sarita Epithelial cells LM Ql (Urine sed) FEW Abnormal NONE SEEN /RARE The [facility] Comment on above: Performed By: #### H BSANS #### [facility] [address] [place] [address] Andriy Sarita Glucose Ql (U) Negative Normal NEGATIVE [facility] Comment on above: Performed By: #### H BSANS #### [facility] [address] [place] [address] Andriy Sarita Hemoglobin Ql (U) Negative Normal NEGATIVE The [facility] Comment on above: Performed By: #### H BSANS #### [facility] [address] [place] [address] Andriy Sarita Ketones Ql (U) TRACE Abnormal NEGATIVE The [facility] Comment on above: Performed By: #### H BSANS #### [facility] [address] [place] [address] Andriy Sarita LEUKOCYTES Negative Normal NEGATIVE The [facility] Comment on above: Performed By: #### H BSANS #### [facility] [address] [place] [address] Andriy Sarita MUCOUS SMALL Abnormal NONE SEEN The [facility] Comment on above: Performed By: #### H BSANS #### [facility] [address] [place] [address] Andriy Sarita Nitrite Ql (U) Negative Normal NEGATIVE The [facility] Comment on above: Performed By: #### H BSANS #### [facility] [address] [place] [address] Andriy Sarita pH (U) 7.0 [pH] Normal 5-9 [facility] Comment on above: Performed By: #### H BSANS #### [facility] [address] [place] [address] Andriy Sarita RBC 0-2 Normal 0-2 The [facility] Comment on above: Performed By: #### H BSANS #### [facility] [address] [place] [address] Andriy Sarita SPEC GRAVITY 1.020 Normal 1.005-<=1.02 5 [facility] Comment on above: Performed By: #### H BSANS #### [facility] [address] [place] [address] Andriy Sarita UA PROTEIN Negative Normal NEGATIVE/ TRACE The [facility] Comment on above: Performed By: #### H BSANS #### [facility] [address] [place] [address] Andriy Sarita Urobilinogen Qn (U) 0.2 {Juanito'U}/dL Normal 0.2 - 1. 0 [facility] Comment on above: Performed By: #### H BSANS #### [facility] [address] [place] [address] Andriy Sarita WBC NONE SEEN Normal NONE SEEN The [facility] Comment on above: Performed By: #### H BSANS #### [facility] [address] [place] [address] Andriy Sarita BUNon 01-26-2021 Urea nitrogen [Mass/Vol] 5.0 mg/dL Critically low 7.0-17.0 [facility] Comment on above: Performed By: #### T SH, LDH, BUN, URIC, ALT, AST ####[facility] [address] [place], [place] [address]Dmpinq Sarita CBC AUTO DIFFon 01-26-2021 BASO # 0.0 103/ul Normal 0.0-0.1 [facility] Comment on above: Performed By: #### C BC #### [facility] [address] [id number] Andriy Sarita Basophils/100 WBC (Bld) 0.4 % Normal 0.2-2.0 [facility] Comment on above: Performed By: #### C BC #### [facility] [address] [id number] Andriy Sarita EO # 0.1 103/ul Normal 0.0-0.7 [facility] Comment on above: Performed By: #### C BC #### [facility] [address] [id number] Andriy Sarita Eosinophils/100 WBC (Bld) 1.1 % Normal 0.9-7.0 [facility] Comment on above: Performed By: #### C BC #### [facility] [address] [id number] Andriylogan Rodgersen Erythrocyte distribution width (RBC) [Ratio] 14.6 % Normal 11.0-15.0 [facility] Comment on above: Performed By: #### C BC #### [facility] [address] [id number] Andriy Sarita Hematocrit (Bld) [Volume fraction] 34.7 % Critically low 36.0-48.0 [facility] Comment on above: Performed By: #### C BC #### [facility] [address] [id number] Andriy Sarita Hemoglobin (Bld) [Mass/Vol] 11.1 g/dL Critically low 12.0-16.0 [facility] Comment on above: Performed By: #### C BC #### [facility] [address] [place] [address] Andriy Sarita IG # 0.04 10e3/ul Critically high 0.00-0.03 [facility] Comment on above: Performed By: #### C BC #### [facility] [address] [place] [address] Andriy Sarita IG % 0.5 % Normal 0.0-0.5 [facility] Comment on above: Performed By: #### C BC #### [facility] [address] [place] [address] Andriy Sarita LYMPH # 2.1 103/ul Normal 1.2-3.8 [facility] Comment on above: Performed By: #### C BC #### [facility] [address] [place] [address] Andriy Sarita Lymphocytes/100 WBC (Bld) 25.5 % Normal 20.5-60.0 [facility] Comment on above: Performed By: #### C BC #### [facility] [address] [place] [address] Andriy Sarita MANUAL DIFF REQ NO Normal [facility] Comment on above: Performed By: #### C BC #### [facility] [address] [place] [address] Andriy Sarita MCH (RBC) [Entitic mass] 27.2 pg Normal 26.7-34.0 [facility] Comment on above: Performed By: #### C BC #### [facility] [address] [place] [address] Andriylogan Rodgersen MCHC (RBC) [Mass/Vol] 32.0 g/dL Normal 29.9-35.2 [facility] Comment on above: Performed By: #### C BC #### [facility] [address] [place] [address] Andriy Sarita MCV (RBC) [Entitic vol] 85.0 fL Normal 81.0-99.0 [facility] [facility] Comment on above: Performed By: #### C BC #### [facility] [address] [place] [address] Andriy Sarita MONO # 0.6 103/ul Normal 0.3-0.8 [facility] Comment on above: Performed By: #### C BC #### [facility] [address] [place], [place] [id number] Andriy Rodgersen Monocytes/100 WBC (Bld) 7.1 % Normal 1.7-12.0 [facility] Comment on above: Performed By: #### C BC #### [facility] [address] [place], [place] [address] Andriylogan Rodgersen NEUT # 5.3 103/ul Normal 1.4-6.5 [facility] Comment on above: Performed By: #### C BC #### [facility] [address] [place], [place] [address] Andriy Rodgersen Neutrophils/100 WBC (Bld) 65.4 % Normal 43.0-75.0 [facility] Comment on above: Performed By: #### C BC #### [facility] [address] [place], [place] [address] Andriy Stein Platelet mean volume (Bld) [Entitic vol] 9.5 fL Normal 9.5-13.5 [facility] Comment on above: Performed By: #### C BC #### [facility] [address] [place], [place] [address] Andriylogan Rodgersen PLT 258 103/ul Normal 150-450 [facility] Comment on above: Performed By: #### C BC #### [facility] [address] [place], [place] [address] Andriy Sarita RBC 4.08 106/ul Critically low 4.20-5.40 [facility] Comment on above: Performed By: #### C BC #### [facility] [address] [place], [place] [address] Andriy Sarita WBC 8.1 103/ul Normal 4.0-11.0 [facility] Comment on above: Performed By: #### C BC #### [facility] [address] [place], [place] [address] Andriy Sarita CREATININE CLEARon 1 CREA CLEARANCE 69.46 ml/min Critically low 75.00-115.00 [facility] Comment on above: Performed By: #### H IV12 #### [facility] [address] [id number] Andriy Stein CREA, 24 HR UR 579.12 mg/24 hr Critically low 800.00-1 ,800 .00 [facility] Comment on above: Performed By: #### H IV12 #### [facility] [address] [address] Andriy Stein Creatinine [Mass/Vol] 0.53 mg/dL Normal 0.52-1.04 [facility] Comment on above: Performed By: #### H IV12 #### [facility] [address] [address] Andriy Stein URINE CREAT 30.48 mg/dL Normal 20.00-300.00 [facility] Comment on above: Performed By: #### H IV12 #### [facility] [address] [address] Andriy Stein GLUCOSE - 1HRon 01-26-2021 Glucose [Mass/Vol] 150 mg/dL Critically high 74-106 [facility] Comment on above: Performed By: #### G LU1HR ####[facility] [address] [place], [place] [id number] Stein LDHon 01-26-2021 LDH 125 U/L Normal 122-222 [facility] Comment on above: Performed By: #### T SH, LDH, BUN, URIC, ALT, AST ####[facility] [address] [place], [place] [id number] Stein PROTEIN 24HR URINEon 021 T PROT, 24 HR UR 32.3 mg/24 hr Critically low 42.0-225.0 [facility] Comment on above: Performed By: #### P ROT24U ####[facility] [address] [place], [place] [address]Andriy Stein UR PROT 1.7 mg/dL Normal <=12.0 [facility] Comment on above: Performed By: #### P ROT24U ####[facility] [address] [address]Gerken Sarita UR TOT VOL 1900 ml/24 HR Normal [facility] Comment on above: Performed By: #### P ROT24U ####[facility] [id number] Sarita Performed By: #### H IV12 #### [facility] [address] [address] Andriy Stein SGOTon 01-26-2021 AST [Catalytic activity/Vol] 17 U/L Normal 14-36 [facility] Comment on above: Performed By: #### T SH, LDH, BUN, URIC, ALT, AST ####[facility] [address] [address]Gerken Sarita SGPTon 01-26-2021 ALT [Catalytic activity/Vol] 16 U/L Normal 9-52 [facility] Comment on above: Performed By: #### T SH, LDH, BUN, URIC, ALT, AST ####[facility] [id number] Sarita TSHon 01-26-2021 TSH 0.220 uIU/mL Critically low 0.470-4.680 [facility] Comment on above: Performed By: #### T SH, LDH, BUN, URIC, ALT, AST ####[facility] [address] Sarita TSH RANGE SEE BELOW Normal [facility] Comment on above: Result Comment: <0.3 4 UIU/ml HYPERTHYROID 0.34-5.60 UIU/ml EUTHYROID >5.60 UIU/ml HYPOTHYROID Performed By: #### T SH, LDH, BUN, URIC, ALT, AST ####[facility] [address] Sarita URIC ACID SERUMon 01-26-2021 Urate [Mass/Vol] 3.6 mg/dL Normal 2.5-6.2 [facility] Comment on above: Performed By: #### T SH, LDH, BUN, URIC, ALT, AST ####[facility] [address] [place], [place] [address]DvbjdtAndriy Stein US PREG TVon 01-24-2021 US PREG [...] ANGELO BLANKENSHIP Date: 2021-01-24 10:12 Normal [facility] ABO AND RH TYPEon 01-19-2021 ABO and Rh group Nom (Bld) ABO Rh Typing A Rh Positive Normal [facility] Comment on above: Performed By: #### A MADDY ####[facility] [address] [id number] Rodgersen PREG QUANT HCGon 01-19-2021 HCG QUANT 20365 mIU/mL Normal [facility] Comment on above: Result Comment: Prev iously reported as: 3 On 01/19/2021 11:21 By CV2 Performed By: #### H IV12 #### [facility] [address] [address] Andriy Stein HCG RANGE SEE BELOW Normal [facility] Comment on above: Result Comment: 5-50 0-1 WEEK 40-300 1-2 WEEKS 100-1,000 2-3 WEEKS 500-6,000 3-4 WEEKS 5,000-200,000 1-2 MONTHS 10,000-100,000 2-3 MONTHS 3,000-50,000 2ND TRIMESTER 1,000-50,000 3RD TRIMESTER Performed By: #### H IV12 #### [facility] [address] [place], [place] [address] Andriy Stein Vital Signs Date Time Vital Sign Value Performing Clinician Facility 04-07-2025 13:35-0400 Body mass index (BMI) [Ratio] 33.77 kg/m2 Deborah Aquiles PA Work Phone: [facility] 04-07-2025 13:35-0400 Body weight 89.25 kg Deborah Aquiles PA Work Phone: [facility] 04-07-2025 13:35-0400 Diastolic blood pressure 70 mm[Hg] Deborah Damascus PA Work Phone: [facility] 04-07-2025 13:35-0400 Systolic blood pressure 126 mm[Hg] Deborah Aquiles PA Work Phone: [facility] 03-24-2025 11:04-0400 Body mass index (BMI) [Ratio] 33.77 kg/m2 Jem Ambrosio JAVASCRIPT PROGRAMMER Work Phone: [facility] 03-24-2025 11:04-0400 Body weight 89.25 kg Jem Ambrosio JAVASCRIPT PROGRAMMER Work Phone: [facility] 03-24-2025 11:04-0400 Diastolic blood pressure 80 mm[Hg] Jem Ambrosio JAVASCRIPT PROGRAMMER Work Phone: [facility] 03-24-2025 11:04-0400 Systolic blood pressure 118 mm[Hg] Jem Hebert JAVASCRIPT PROGRAMMER Work Phone: [facility] 03-10-2025 13:25-0400 Body mass index (BMI) [Ratio] 33.44 kg/m2 Deborah Aquiles PA Work Phone: [facility] 03-10-2025 13:25-0400 Body weight 88.36 kg Deborah Damascus PA Work Phone: [facility] 03-10-2025 13:25-0400 Diastolic blood pressure 74 mm[Hg] Deborah Aquiles PA Work Phone: [facility] 03-10-2025 13:25-0400 Systolic blood pressure 136 mm[Hg] Deborah Aquiles PA Work Phone: [facility] 02-16-2025 15:09-0400 Body mass index (BMI) [Ratio] 33.3 kg/m2 Deborah Damascus PA Work Phone: [facility] 02-16-2025 15:09-0400 Body weight 88 kg Deborah Damascus PA Work Phone: [facility] 02-16-2025 15:09-0400 Diastolic blood pressure 72 mm[Hg] Deborah Aquiles PA Work Phone: [facility] 02-16-2025 15:09-0400 Systolic blood pressure 128 mm[Hg] Deborah Aquiles PA Work Phone: [facility] 02-02-2025 15:03-0400 Body mass index (BMI) [Ratio] 33 kg/m2 Scooby Jenny DO Work Phone: [facility] 02-02-2025 15:03-0400 Body weight 87.2 kg Scooby Jenny DO Work Phone: [facility] 02-02-2025 15:03-0400 Diastolic blood pressure 78 mm[Hg] Scooby Jenny DO Work Phone: [facility] 02-02-2025 15:03-0400 Systolic blood pressure 136 mm[Hg] Scooby Jenny DO Work Phone: [facility] 01-01-2025 13:37-0400 Body mass index (BMI) [Ratio] 32.79 kg/m2 Deborah Aquiles PA Work Phone: [facility] 01-01-2025 13:37-0400 Body weight 86.64 kg Deborah Rodriguez PA Work Phone: [facility] 01-01-2025 13:37-0400 Diastolic blood pressure 72 mm[Hg] Deborah Damascus PA Work Phone: [facility] 01-01-2025 13:37-0400 Systolic blood pressure 124 mm[Hg] Deborah Aquiles PA Work Phone: [facility] 12-04-2024 10:26-0400 Body height 162.6 cm Scooby Jenny DO Work Phone: [facility] 12-04-2024 10:25-0400 Body mass index (BMI) [Ratio] 32.27 kg/m2 Scooby Jenny DO Work Phone: [facility] 12-04-2024 10:25-0400 Body weight 85.28 kg Scooby Jenny DO Work Phone: [facility] 12-04-2024 10:25-0400 Diastolic blood pressure 72 mm[Hg] Scooby Jenny DO Work Phone: [facility] 12-04-2024 10:25-0400 Systolic blood pressure 118 mm[Hg] Scooby Jenny DO Work Phone: [facility] 11-24-2024 15:59-0400 Body mass index (BMI) [Ratio] 34.57 kg/m2 Oma Davis RN Work Phone: [facility] 11-24-2024 15:59-0400 Body weight 85.73 kg Oma Davis RN Work Phone: [facility] 11-13-2024 10:57-0400 Body weight 87.09 kg Scooby Jenny DO Work Phone: [facility] 11-13-2024 10:57-0400 Diastolic blood pressure 70 mm[Hg] Scooby Jenny DO Work Phone: [facility] 11-13-2024 10:57-0400 Systolic blood pressure 128 mm[Hg] Scooby Jenny DO Work Phone: [facility] 10-16-2024 14:37-0400 Body weight 85.84 kg [facility] Nurse [facility] 10-16-2024 14:37-0400 Diastolic blood pressure 82 mm[Hg] [facility] Nurse [facility] 10-16-2024 14:37-0400 Systolic blood pressure 124 mm[Hg] [facility] Nurse [facility] 07-09-2021 13:35-0500 Body temperature 96.4 [degF] Renita Ajith Other [place] [facility] Other 07-09-2021 13:35-0500 SaO2% (BldA) [Mass fraction] 98 % Renita Ajith Other [facility] Other 02-19-2021 04:06-0400 Body weight 83.0088 kg RENAY SYDNIE [facility] Comment on above: Performed By: #### HIV12 #### [facility] [address] [place], [place] [address] Andriy Stein Encounters Encounter Date Encounter Type Care Provider Facility Start: 04-07-2025 End: 04-07-2025 Bamboo flowsheet Deborah RUBIN Work Phone: [facility] Start: 04-07-2025 End: 04-07-2025 Bamboo flowsheet Deborah RUBIN Work Phone: [facility] Start: 04-07-2025 End: 04-07-2025 Office outpatient visit 15 minutes Deborah RUBIN Work Phone: [facility] Comment on above: Third trimester preg pedro ([facility]); 36 weeks gestation of ([facility]) Start: 04-07-2025 End: 04-07-2025 ambulatory DEBORAH RODRIGUEZ Not Available Start: 03-31-2025 End: 03-31-2025 Clinisync Result Encounter Jem Ambrosio JAVASCRIPT PROGRAMMER Work Phone: [facility] Unsolicited Start: 03-31-2025 End: 03-31-2025 Clinisync Result Encounter Jem Hebert JAVASCRIPT PROGRAMMER Work Phone: [facility] Unsolicited Start: 03-24-2025 End: 03-24-2025 Bamboo flowsheet Jem Hebert JAVASCRIPT PROGRAMMER Work Phone: [facility] Start: 03-24-2025 End: 03-24-2025 Bamboo flowsheet Jem Hebert JAVASCRIPT PROGRAMMER Work Phone: [facility] Start: 03-24-2025 End: 03-24-2025 Office outpatient visit 15 minutes Jem Ambrosio JAVASCRIPT PROGRAMMER Work Phone: [facility] Comment on above: 34 weeks gestation o f ([facility]); Third trimester ([facility]); Gestational diabetes mellitus (GDM) in third trimester, gestational diabetes method of control unspecified ([facility]) Start: 03-24-2025 End: 03-24-2025 ambulatory JEM AMBROSIO Not Available Start: 03-20-2025 End: 03-20-2025 Telephone encounter Amanda STAPLES [facility] Start: 03-10-2025 End: 03-10-2025 Bamboo flowsheet Deborah RUBIN Work Phone: [facility] Start: 03-10-2025 End: 03-10-2025 Bamboo flowsheet Deborah RUBIN Work Phone: [facility] Start: 03-10-2025 End: 03-10-2025 Office outpatient visit 15 minutes Deborah RUBIN Work Phone: [facility] Comment on above: 32 weeks gestation o f ([facility]); Third trimester ([facility]) Start: 03-10-2025 End: 03-10-2025 ambulatory DEBORAH RODRIGUEZ Not Available Start: 02-25-2025 End: 02-25-2025 ambulatory DEBORAH AQUILES Not Available Start: 02-16-2025 End: 02-16-2025 ambulatory DEBORAH AQUILES Not Available Start: 02-16-2025 End: 02-16-2025 Office outpatient visit 15 minutes Deborah RUBIN Work Phone: [facility] Comment on above: Size of fetus incons istent with dates in second trimester ([facility]) (Primary Dx); 28 weeks gestation of ([facility]); Third trimester ([facility]) Start: 02-16-2025 End: 02-16-2025 Bamboo flowsheet Deborah RUBIN Work Phone: [facility] Start: 02-16-2025 End: 02-16-2025 Bamboo flowsheet Deborah RUBIN Work Phone: [facility] Start: 02-13-2025 End: 02-13-2025 Clinisync Result Encounter Scooby Jenyn DO Work Phone: [facility] Unsolicited Start: 02-13-2025 End: 02-13-2025 Clinisync Result Encounter Scooby Jenny DO Work Phone: [facility] Unsolicited Start: 02-02-2025 End: 02-02-2025 Office outpatient visit 15 minutes Scooby Jenny DO Work Phone: [facility] Comment on above: Second trimester pre gnancy ([facility]); 26 weeks gestation of ([facility]); Diabetes mellitus screening Start: 02-02-2025 End: 02-02-2025 ambulatory SCOOBY JENNY Not Available Start: 02-02-2025 End: 02-02-2025 Bamboo flowsheet Scooby Jenny DO Work Phone: [facility] Start: 02-02-2025 End: 02-02-2025 Bamboo flowsheet Scooby Jenny DO Work Phone: [facility] Start: 01-26-2025 End: 01-26-2025 ambulatory SCOOBY JENNY Not Available Start: 01-01-2025 End: 01-01-2025 Bamboo flowsheet Deborah RUBIN Work Phone: [facility] Start: 01-01-2025 End: 01-01-2025 Bamboo flowsheet Deborah RUBIN Work Phone: [facility] Start: 01-01-2025 End: 01-01-2025 flow sheet Deborah RUBIN Work Phone: [facility] Comment on above: Second trimester pre gnancy ([facility]); 22 weeks gestation of ([facility]) Start: 01-01-2025 End: 01-01-2025 ambulatory DEBORAH RODRIGUEZ [...] Rowena STAPLES Work Phone: [facility] Start: 12-04-2024 End: 12-04-2024 ambulatory SCOOBY JENNY Not Available Start: 12-04-2024 End: 12-04-2024 Patient encounter procedure Scooby Jenny DO Work Phone: [facility] Start: 12-04-2024 End: 12-04-2024 flow sheet Scooby Jenny DO Work Phone: [facility] Comment on above: Second trimester pre gnancy ([facility]); 18 weeks gestation of ([facility]); Well woman exam with routine gynecological exam; Screening, , for anatomic survey ([facility]); Screen for STD (sexually transmitted disease); Need for maternal serum alpha-protein (MSAFP) screening ([facility]) Start: 11-24-2024 End: 11-24-2024 ambulatory Oma Davis RN Work Phone: [facility] Comment on above: Gestational diabetes mellitus (GDM) in second trimester, gestational diabetes method of control unspecified Start: 11-13-2024 End: 11-13-2024 flow sheet Scooby Alvarado DO Work Phone: [facility] Comment on above: 15 weeks gestation o f ; Second trimester ; Diet controlled gestational diabetes mellitus (GDM), antepartum; Gestational diabetes mellitus (GDM), antepartum, gestational diabetes method of control unspecified; Elevated glucose tolerance test Start: 11-13-2024 End: 11-13-2024 ambulatory SCOOBY KRUEGERO Not Available Start: 11-11-2024 End: 11-11-2024 Clinisync Result Encounter Scooby Kruegero DO Work Phone: [facility] Unsolicited Start: 11-11-2024 End: 11-11-2024 Clinisync Result Encounter Scooby Kruegero DO Work Phone: [facility] Unsolicited Start: 10-16-2024 End: 10-16-2024 Office outpatient visit 5 minutes [facility] Nurse [facility] Comment on above: GA: 11w2d Start: 10-16-2024 End: 10-16-2024 ambulatory SCOOBY JENNY Not Available Start: 12-20-2023 End: 12-21-2023 ambulatory NO PCP NO PCP [facility] Start: 12-19-2023 End: 12-20-2023 Emergency department patient visit RENITA HICKMAN [facility] Start: 12-19-2023 End: 12-19-2023 Emergency department patient visit NO PCP NO PCP [facility] Start: 03-01-2022 End: 03-01-2022 ambulatory Kym Masterson Facility:[facility] Start: 11-08-2021 End: 11-08-[address] SCOOBY ALVARADO Facility: Start: 08-01-2021 End: 08-01-[address] SCOOBY ALVARADO Facility:[facility] Start: 07-30-2021 End: 02-06-2022 Evaluation and management of inpatient DR SCOOBY ALVARADO Facility:[facility] Start: 07-13-2021 End: 07-13-[address] SCOOBY ALVARADO Facility:[facility] Start: 07-11-2021 End: 07-12-[address] NADIA DOOLEY Facility:[facility] Start: 07-09-2021 End: 07-09-2021 ambulatory Renita Canseco Other [facility] Other Start: 07-09-2021 Office outpatient vi sit [...] Facility:[facility] Start: 04-07-2021 End: 04-08-2021 [facility] Start: 03-21-2021 End: 03-22-2021 ambulatory RENAY [...] Date Procedure Procedure Detail Performing Clinician Start: 04-07-2025 Urnls dip stick/tabl et rgnt non-auto w/o micrscp Deborah RUBIN Work Phone: Start: 03-31-2025 US OB BPP W NON-STRESS Jem Ambrosio JAVASCRIPT PROGRAMMER Work Phone: Start: 03-24-2025 Urnls dip stick/tabl et rgnt non-auto w/o micrscp Jem Ambrosio JAVASCRIPT PROGRAMMER Work Phone: Start: 03-10-2025 Urnls dip stick/tabl [...] Td Vaccines (3 - Td or Tdap) [facility] Start: 12-04-2029 Screening for malign ant neoplasm of cervix [facility] Start: 11-24-2025 Adult BMI Screening Adult BMI Screen [facility] Start: 06-15-2025 End: 06-15-2025 ambulatory 06/15/2025 9:50 AM EST Visit [facility] [address] [place] [address] Scooby Alvarado DO [address] [place] [address] [facility] Start: 04-14-2025 End: 04-14-2025 Patient encounter procedure 04/14/2025 11:10 AM EDT Routine [facility] [address] [place] [address] Scooby Alvarado DO [address] [place] [address] [facility] Start: 04-07-2025 End: 04-07-2026 CULTURE, GROUP B STREP WITH SUSCEPTIBLITY CULTURE, GROUP B STREP WITH SUSCEPTIBLITY Lab Routine Third trimester ([facility]) Expected: 04/07/2025, Expires: 04/07/2026 [facility] Work Phone: Comment on above: Expected: 04/07/2025 , Expires: 04/07/2026 Start: 04-07-2025 End: 04-07-2025 Patient encounter procedure [facility] Comment on above: Arrived Start: 03-24-2025 End: 09-21-2025 US biophysical profile w non stress test US biophysical profile w non stress test Imaging Routine Third trimester ([facility]) Expected: 03/24/2025 (Approximate), Expires: 09/21/2025 [facility] Work Phone: Comment on above: Expected: 03/24/2025 (Approximate), Expires: 09/21/2025 Start: 03-24-2025 End: 03-24-2025 Patient encounter procedure [facility] Comment on above: Arrived Start: 03-10-2025 End: 03-10-2025 Patient encounter procedure 03/10/2025 1:20 PM EDT Routine [facility] [address] [place] [address] Deborah Rodriguez PA [address] [facility] [address] Arrived [facility] Comment on above: Arrived Start: 03-03-2025 End: 03-03-2025 Patient encounter procedure 03/03/2025 2:40 PM EDT Routine [facility] [address] [place] [address] Scooby Alvarado DO [address] [place] [address] [facility] Start: 02-25-2025 End: 02-25-2025 Professional / ancillary services management 02/25/2025 3:00 PM EDT Ancillary Procedure [facility] [place] [facility] [address] [place] [address] [facility] Start: 02-23-2025 COVID-19 Vaccine ( season) COVID-19 Vaccine () [facility] Start: 02-23-2025 Influenza vaccination P [facility] Start: 02-16-2025 End: 02-16-2025 Patient encounter procedure 02/16/2025 2:30 PM EDT Routine [facility] [address] [place] [address] Deborah Rodriguez PA [address] [facility] [address] [facility] Start: 02-16-2025 End: 06-18-2025 US for US OB follow up transabdominal approach Imaging Routine Size of fetus inconsistent with dates in second trimester ([facility]) Expected: 02/16/2025, Expires: 06/18/2025 [facility] Work [...] EDT Ancillary Procedure [facility] [address] [place] [id number] [facility] Start: 01-01-2025 End: 01-01-2025 Patient encounter procedure [facility] Comment on above: Arrived Start: 12-20-2024 Tobacco Screening Tobacco Screening [facility] Start: 12-19-2024 Adult BMI Screening Adult BMI Screen ing [facility] Start: 12-04-2024 End: 01-03-2025 Alpha fetoprotein, maternal Alpha fetoprotein, maternal Lab Routine Need for maternal serum alpha-protein (MSAFP) screening ([facility]) Expected: 12/04/2024 (Approximate), Expires: 01/03/2025 [facility] Comment on above: Expected: 12/04/2024 (Approximate), Expires: 01/03/2025 Start: 12-04-2024 End: 03-06-2025 US for US OB 14+ weeks anatomy scan Imaging Routine Screening, , for anatomic survey ([facility]) Expected: 12/04/2024, Expires: 03/06/2025 [facility] Comment on above: Expected: 12/04/2024 , Expires: 03/06/2025 Start: 12-04-2024 End: 12-04-2024 Patient encounter procedure 12/04/2024 9:40 AM EDT Routine [facility] [address] [place] [id number] Scooby Alvarado, DO [address] [place] [address] [facility] Start: 11-13-2024 End: 11-13-2024 Patient encounter procedure 11/13/2024 10:40 AM EDT Routine [facility] [address] [place] [id number] Scooby Alvarado, DO [address] [place] [address] [facility] Start: 10-16-2024 End: 10-16-2025 ABO/Rh ABO/Rh Lab Routine Missed menses , unspecified gestational age Expected: 10/16/2024 (Approximate), Expires: 10/16/2025 [facility] Comment on above: Expected: 10/16/2024 (Approximate), Expires: 10/16/2025 Start: 10-16-2024 End: 10-16-2025 Blood type and Indirect antibody screen panel - Blood Type and screen Lab Routine Missed menses , unspecified gestational age Expected: 10/16/2024 (Approximate), Expires: 10/16/2025 [facility] Work Phone: Comment on above: Expected: 10/16/2024 (Approximate), Expires: 10/16/2025 Start: 10-16-2024 End: 10-16-2025 Drugs of abuse panel - Urine by Screen method Rapid drug screen, urine Lab Routine , unspecified gestational age Encounter for supervision of normal first in first trimester Expected: 10/16/2024 (Approximate), Expires: 10/16/2025 [facility] Comment on above: Expected: 10/16/2024 (Approximate), Expires: 10/16/2025 Start: 02-24-2024 COVID-19 Vaccine ( season) COVID-19 Vaccine () [facility] Start: 2021 Screening for malign ant neoplasm of cervix [facility] Start: 2012 Screening for malign ant neoplasm of cervix Pap Smear [facility] Start: 2009 Adult BMI Follow Up Plan Adult BMI Follow Up Plan [facility] Start: 2003 Depression Screening Depression Scre [facility] Bacteria identified in Urine by Culture Urine culture Microbiology Routine Missed menses Ordered: 10/16/2024 [facility] Comment on above: Ordered: 10/16/2024 CBC W Auto Different ial panel - Blood CBC and differential Lab Routine Missed menses , unspecified gestational age Ordered: 10/16/2024 [facility] Comment on above: Ordered: 10/16/2024 CHLAMYDIA TRACHOMATI S (GENITO/STI) CHLAMYDIA TRACHOMATIS (GENITO/STI) Lab Routine Screen for STD (sexually transmitted disease) Ordered: 12/04/2024 [facility] Comment on above: Ordered: 12/04/2024 Cytology Cervical or vaginal smear or scraping study Pap Smear Pathology and Cytology Routine Well woman exam with routine gynecological exam Ordered: 12/04/2024 [facility] Comment on above: Ordered: 12/04/2024 Hemoglobin A1c/Hemoglobin.total in Blood Hemoglobin A1c Lab Routine Missed menses , unspecified gestational age Ordered: 10/16/2024 [facility] Comment on above: Ordered: 10/16/2024 Hepatitis B virus surface Ag [Presence] in Serum or Plasma by Immunoassay Hepatitis B surface antigen Lab Routine Missed menses , unspecified gestational age Ordered: 10/16/2024 [facility] Comment on above: Ordered: 10/16/2024 Hepatitis C virus Ab [Presence] in Serum or Plasma by Immunoassay Hepatitis C antibody Lab Routine Missed menses , unspecified gestational age Ordered: 10/16/2024 [facility] Comment on above: Ordered: 10/16/2024 HIV-1/HIV-2 antigen/antibody combination immunoassay HIV-1 and HIV-2 antibodies Lab Routine Missed menses , unspecified gestational age Ordered: 10/16/2024 [facility] Comment on above: Ordered: 10/16/2024 Human papilloma viru s DNA [Presence] in Unspecified specimen by Probe with amplification HPV DNA probe, amplified Microbiology Routine Well woman exam with routine gynecological exam Ordered: 12/04/2024 [facility] Comment on above: Ordered: 12/04/2024 Neisseria gonorrhoea e DNA [Presence] in Unspecified specimen by CARLITOS with probe detection Neisseria gonorrhea DNA probe, direct Lab Routine Screen for STD (sexually transmitted disease) Ordered: 12/04/2024 [facility] Comment on above: Ordered: 12/04/2024 Reagin Ab [Presence] in Serum by RPR RPR Lab Routine Missed menses , unspecified gestational age Ordered: 10/16/2024 [facility] Comment on above: Ordered: 10/16/2024 Rubella antibody, IgG Rubella an tibody, IgG Lab Routine Missed menses , unspecified gestational age Ordered: 10/16/2024 [facility] Comment on above: Ordered: 10/16/2024 SURESWAB(R) ADVANCED VAGINITIS PLUS, TMA SURESWAB(R) ADVANCED VAGINITIS PLUS, TMA Pathology and Cytology Routine Screen for STD (sexually transmitted disease) Ordered: 12/04/2024 [facility] Work Phone: Comment on above: Ordered: 12/04/2024 Immunizations Immunization Date Immunization Notes Care Provider [facility] 04-04-2024 influenza virus vaccine, unspecified formulation Oma Davis RN Work Phone: [facility] Payers Date Payer Category Payer Medicaid [facility] [id number] 2025 Medicaid [id number] 2022 Self-pay 2022 Managed Care Other (unspecified) [facility] [id number] 2022 Private Health Insurance [facility] [id number] 2022 Private Health Insurance [id number] 1991 Unknown [id number] 2.16.840.1.079461.3.579.2. 593 1991 Unknown [id number] 2.16.840.1.993482.3.579.2. 593 1991 Unknown [id number] 2.16.840.1.649519.3.579.2. 593 1991 Unknown [id number] 2.16.840.1.693567.3.579.2. 593 1991 Unknown [id number] 2.16.840.1.717024.3.579.2. 593 1991 Unknown [id number] 2.16.840.1.949891.3.579.2. 593 1991 Unknown [id number] 2.16.840.1.744936.3.579.2. 593 1991 Unknown [id number] 2.16.840.1.195614.3.579.2. 593 1991 Unknown [id number] 2.16.840.1.490596.3.579.2. 593 1991 Unknown [id number] 2.16.840.1.120094.3.579.2. 593 1991 Unknown [id number] 2.16.840.1.300257.3.579.2. 593 1991 Unknown [id number] 2.16.840.1.719617.3.579.2. 593 1991 Unknown [id number] 2.16.840.1.449502.3.579.2. 593 1991 Unknown [id number] 2.16.840.1.127076.3.579.2. 593 1991 Unknown [id number] 2.16.840.1.794822.3.579.2. 593 1991 Unknown [id number] 2.16.840.1.276361.3.579.2. 593 1991 Unknown [id number] 2.16.840.1.191476.3.579.2. 593 1991 Unknown [id number] 2.16.840.1.434116.3.579.2. 593 1991 Unknown [id number] 2.16.840.1.594869.3.579.2. 593 1991 Unknown [id number] 2.16.840.1.162754.3.579.2. 593 1991 Unknown [id number] 2.16.840.1.653696.3.579.2. 1286 1991 Unknown [id number] 2.16.840.1.472066.3.579.2. 1286 1991 Unknown [id number] 2.16.840.1.484240.3.579.2. 1286 1991 Unknown [id number] 2.16.840.1.198664.3.579.2. 1286 1991 Unknown [id number] 2.16.840.1.383064.3.579.2. 1259 1991 Unknown [id number] 2.16.840.1.402556.3.579.2. 1259 1991 Unknown [id number] 2.16.840.1.339338.3.579.2. 1259 1991 Unknown [id number] 2.16.840.1.581406.3.579.2. 1259 1991 Unknown [id number] 2.16.840.1.406216.3.579.2. 9 1991 Unknown [id number] 2.16.840.1.486460.3.579.2. 1259 1991 Unknown [id number] 2.16.840.1.314466.3.579.2. 9 1991 Unknown [id number] 2.16.840.1.303186.3.579.2. 9 1991 Unknown [id number] 2.16.840.1.854698.3.579.2. 9 1991 Unknown [id number] 2.16.840.1.689164.3.579.2. 9 1991 Unknown [id number] 2.16.840.1.991087.3.579.2. 9 1991 Unknown [id number] 2.16.840.1.637657.3.579.2. 1259 1959 Unknown [id number] 1959 Unknown [id number] Unknown [id number] 2.16.840.1.012532.3.579.2. 531 Social History Date Type Detail Facility Start: 08-05-2020 End: 12-21-2023 [facility] Start: 08-12-2024 [facility] Start: 1990 Sex assigned at Female [facility] Start: 06-27-2023 Gender identity Identifies as female gender (finding) [facility] Start: 06-27-2023 Sexual orientation Heterosexual (finding) [facility] Start: 08-25-2019 Tobacco smoking status OKIS Never smoked tobacco [facility] Start: 08-25-2019 Tobacco use and exposure Smokeless tobacco non-user [facility] Start: 11-19-2024 Alcoholic beverage intake Ex-drinker (finding) [facility] Start: 08-05-2020 End: 12-21-2023 History of Social function [employer] Start: 09-06-2022 Are you worried or concerned that in the next two months you may not have stable housing that you own, rent or stay in as a part of a household? No [employer] Start: 1990 [facility]: 01-28-2015 [facility] (finding[facility] Medical Equipment Procedure Code Equipment Code Equipment Origin al Text Equipment Identifier Dates 1 strip by In Vi tro route Daily Use in the morning prior to breakfast, 1 hour after each meal for a total of 4times daily. [id number] Start: 11-13-2024 End: 12-13-2024 1 each by In Vit ro route Daily Use to check FSBS four times daily [id number] Start: 11-13-2024 End: 12-13-2024 Clinical Notes 07-09-2021 to 04-07-2025 SCOTTIE Yañez - 04/07/2025 1:30 PM EDTJem Ambrosio NP - 03/24/2025 10:50 AM EDTTelephone Encounter - BEL Navarro - 03/20/2025 12:55 PM SCOTTIE Vasques - 03/10/2025 1:20 PM EDT Note Date & Type Note Facility 04-07-2025 History of Presen t illness Narrative Reason [...] meal for a total of 4times daily. Kgdnokvl-Ayd-Kf-FA ( 1 + IRON PO) Take by mouth ProFe 391.3 (180 Fe) MG capsule 1 capsule, Daily ALLERGIES Allergies[1] PROBLEMS Active Ambulatory Problems Diagnosis Date Noted 28 weeks gestation of ([facility]) 02/16/2025 Third trimester ([facility]) 02/16/2025 Resolved Ambulatory Problems Diagnosis Date Noted [...] Vitals: Estimated body mass index is 33.77 kg/m as calculated from the following: Height as of 12/04/24: 5' 4 . Weight as of this encounter: 196 lb 12 oz. BP: 126/70 Patient's last menstrual period was 07/29/2024 (exact date). ASSESSMENT & PLAN ICD-10-CM 1. Third trimester ([facility]) Z34.93 POCT urinalysis dipstick manually resulted CULTURE, GROUP B STREP WITH SUSCEPTIBLITY CULTURE, GROUP B STREP WITH SUSCEPTIBLITY 2. 36 weeks gestation of ([facility]) Z3A.36 Patient is doing well but has [...] history on file. documented in this encounter [facility] 03-24-2025 History of Presen t illness Narrative Reason for Appointment: Patient ID: Paris Mosqueda is a 34 y.o. female who presents for Routine Visit Patient presents today for Return OB appointment. MEDICATIONS Current Outpatient Medications Medication Instructions Alcohol Swabs (Alcohol Prep Pad) 70 % pads 1 Pad, Topical, Daily, Use four times daily to check FSBS. Blood Glucose Monitoring Suppl (D-Favorite Words Glucometer) w/Device kit 1 kit, Does not apply, Daily, Use four times daily to check FSBS. In the morning prior to breakfast & 1 hour after each meal for a total of 4times daily. Kbappepl-Ggi-Sa-FA ( 1 + IRON PO) Take by mouth ProFe 391.3 (180 Fe) MG capsule 1 capsule, Daily ALLERGIES Not on File PROBLEMS Active Ambulatory Problems Diagnosis Date Noted 28 weeks gestation of ([facility]) 02/16/2025 Third trimester ([facility]) 02/16/2025 Resolved Ambulatory Problems Diagnosis Date Noted [...] nursing note reviewed. Exam conducted with a winding inspector present. Vitals: Estimated body mass index is 33.44 kg/m as calculated from the following: Height as of 12/04/24: 5' 4 . Weight as of 03/10/25: 194 lb 12.8 oz. BP: Patient's last menstrual period was 07/29/2024 (exact date). ASSESSMENT & PLAN ICD-10-CM 1. 34 weeks gestation of ([facility]) Z3A.34 2. Third trimester ([facility]) Z34.93 US biophysical profile w non stress test POCT urinalysis dipstick manually resulted 3. Gestational diabetes mellitus (GDM) in third trimester, gestational diabetes method of control unspecified ([facility]) O24.419 Return OB: Patient presents today for a routine obstetrics appointment. Patient is currently 34w0d . Patient states she is doing well but has complaints of being tired due to current w/some pelvic pain. Patient has verbalizes frequent movement. labor precautions was discussed/given and patient was instructed to perform kick counts three times a day. She continues to send her glucose logs to [facility] and we will begin NST/BPP this week. Orders Placed This Encounter Procedures US biophysical profile w non stress test POCT urinalysis dipstick manually resulted Follow Up: Patient is to return to office in 2 week for routine OB appointment. Documented by Yane Grant MA on behalf of: Jem Ambrosio NP documented in this encounter [facility] 03-20-2025 Miscellaneous Notes Called patient and had to leave a voicemail. We haven't received any blood sugar logs for 4 weeks. Asked her to please send them to us or to call with questions. Left RD phone number. documented in this encounter [facility] 03-20-2025 Telephone encounter Note Called patient and had to leave a voicemail. We haven't received any blood sugar logs for 4 weeks. Asked her to please send them to us or to call with questions. Left RD phone number. [facility] 03-10-2025 History of Presen t illness Narrative [...] meal for a total of 4times daily. Gvrcgjvr-Neh-Da-FA ( 1 + IRON PO) Take by mouth ProFe 391.3 (180 Fe) MG capsule 1 capsule, Daily ALLERGIES No Known Allergies PROBLEMS Active Ambulatory Problems Diagnosis Date Noted 28 weeks gestation of ([facility]) 02/16/2025 Third trimester ([facility]) 02/16/2025 Resolved Ambulatory Problems Diagnosis Date Noted [...] nursing note reviewed. Exam conducted with a winding inspector present. Vitals: Estimated body mass index is 33.44 kg/m as calculated from the following: Height as of 25: 5' 4 . Weight as of this encounter: 194 lb 12.8 oz. BP: 136/74 Patient's last menstrual period was 07/29/2024 (exact date). ASSESSMENT & PLAN ICD-10-CM 1. 32 weeks gestation of ([facility]) Z3A.32 POCT urinalysis dipstick manually resulted 2. Third trimester ([facility]) Z34.93 POCT urinalysis dipstick manually resulted Return [...] of: SCOTTIE Yañez documented in this encounter [facility] 02-16-2025 History of Presen t illness Narrative Reason for Appointment: Patient ID: Paris Mosqueda is a 34 y.o. female who presents for Routine Visit Patient presents today for Return OB appointment. MEDICATIONS Current Outpatient Medications Medication Instructions Alcohol Swabs (Alcohol Prep Pad) 70 % pads 1 Pad, Topical, Daily, Use four times daily to check FSBS. Blood Glucose Monitoring Suppl (DYuntaa Glucometer) w/Device kit 1 kit, Does not apply, Daily, Use four times daily to check FSBS. In the morning prior to breakfast & 1 hour after each meal for a total of 4times daily. Gisumasp-Ozi-Qh-FA ( 1 + IRON PO) Take by mouth ProFe 391.3 (180 Fe) MG capsule 1 capsule, Daily ALLERGIES No Known Allergies PROBLEMS Active Ambulatory Problems Diagnosis Date Noted 28 weeks gestation of ([facility]) 02/16/2025 Third trimester ([facility]) 02/16/2025 Resolved Ambulatory Problems Diagnosis Date Noted [...] nursing note reviewed. Exam conducted with a winding inspector present. Vitals: Estimated body mass index is 33.3 kg/m as calculated from the following: Height as of 12/04/24: 5' 4 . Weight as of this encounter: 194 lb. BP: 128/72 Patient's last menstrual period was 07/29/2024 (exact date). ASSESSMENT & PLAN ICD-10-CM 1. Size of fetus inconsistent with dates in second trimester ([facility]) O26.842 US OB follow up transabdominal approach 2. 28 weeks gestation of ([facility]) Z3A.28 CANCELED: CBC and differential 3. Third trimester ([facility]) Z34.93 Return OB: Patient presents today for [...] of: SCOTTIE Yañez documented in this encounter [facility] 02-02-2025 History of Presen t illness Narrative Reason for Appointment: Patient ID: Paris Mosqueda is a 34 y.o. female who presents for Routine Visit Patient presents today for Return OB appointment. MEDICATIONS Current Outpatient Medications Medication Instructions Alcohol Swabs (Alcohol Prep Pad) 70 % pads 1 Pad, Topical, Daily, Use four times daily to check FSBS. Blood Glucose Monitoring Suppl (StyleQ-Favorite Words Glucometer) w/Device kit 1 kit, Does not apply, Daily, Use four times daily to check FSBS. In the morning prior to breakfast & 1 hour after each meal for a total of 4times daily. Bhgfkdyi-Smu-Rx-FA ( 1 + IRON PO) Take by [...] nursing note reviewed. Exam conducted with a winding inspector present. Vitals: Estimated body mass index is 33 kg/m as calculated from the following: Height as of 25: 5' 4 . Weight as of this encounter: 192 lb 4 oz. BP: 136/78 Patient's last menstrual period was 07/29/2024 (exact date). ASSESSMENT & PLAN ICD-10-CM 1. Second trimester ([facility]) Z34.92 POCT urinalysis dipstick manually resulted 2. 26 weeks gestation of ([facility]) Z3A.26 3. Diabetes mellitus screening Z13.1 CBC [...] glucose log and completed Diabetic education through [facility]. Documented by Jem Ambrosio NP on behalf of: Scooby Alvarado DO documented in this encounter [facility] 01-01-2025 History of Presen [...] meal for a total of 4times daily. Hnhpjgot-Oyx-Bz-FA ( 1 + IRON PO) Take by [...] ASSESSMENT & PLAN ICD-10-CM 1. Second trimester ([facility]) Z34.92 POCT urinalysis dipstick manually resulted 2. 22 weeks gestation of ([facility]) Z3A.22 Return OB: Patient presents today for [...] of: SCOTTIE Yañez documented in this encounter [facility] 12-04-2024 Miscellaneous Notes Called [...] have questions you can call me at [phone]. Please continue to send in blood sugars weekly. I will also send a MyChart message. documented in this encounter [employer] 12-04-2024 Telephone encounter Note Called regarding blood [...] have questions you can call me at [phone]. Please continue to send in blood sugars weekly. I will also send a ADTELLIGENCEhart message. [employer] Work Phone: 12-04-2024 History of Presen t [...] Use to check FSBS four times daily Uzvjefph-Ejx-Wj-FA ( 1 + IRON PO) Take by [...] nursing note reviewed. Exam conducted with a winding inspector present. Vitals: There is no height or weight on file to calculate BMI. BP: 118/72 Patient's last menstrual period was 07/29/2024 (exact date). ASSESSMENT & PLAN ICD-10-CM 1. Second trimester ([facility]) Z34.92 POCT urinalysis dipstick manually resulted 2. 18 weeks gestation of ([facility]) Z3A.18 3. Well woman exam with routine gynecological exam Z01.419 Pap Smear HPV DNA probe, amplified 4. Screening, , for anatomic survey ([facility]) Z36.89 US OB 14+ weeks anatomy scan 5. Screen for STD (sexually transmitted disease) Z11.3 SURESWAB(R) ADVANCED VAGINITIS PLUS, TMA CHLAMYDIA TRACHOMATIS (GENITO/STI) Neisseria gonorrhea DNA probe, direct 6. Need for maternal serum alpha-protein (MSAFP) screening ([facility]) Z36.1 Alpha fetoprotein, maternal Alpha fetoprotein, maternal [...] Scooby Alvarado DO documented in this encounter [facility] 11-24-2024 Group counseling note [...] Face to face time was 85 minutes. [employer] Work Phone: 11-24-2024 Miscellaneous Notes Patient: Paris [...] was 85 minutes. documented in this encounter [employer] 11-13-2024 History of Presen t illness Narrative Reason for Appointment: Patient ID: Paris Mosqueda is a 34 y.o. female who presents for Routine Visit Patient presents today for Return OB appointment. MEDICATIONS Current Outpatient Medications Medication Instructions Alcohol Swabs (Alcohol Prep Pad) 70 % pads 1 Pad, Topical, Daily, Use four times daily to check FSBS. Blood Glucose Monitoring Suppl (Coty Glucometer) w/Device kit 1 kit, Does not [...] Use to check FSBS four times daily Lceyqsdg-Iwq-Ae-FA ( 1 + IRON PO) Take by [...] nursing note reviewed. Exam conducted with a winding inspector present. Vitals: There is no height or [...] meat, and [facility] away [facility]. Patient has been consulted regarding any further do's and don'ts of . Patient voiced understanding and all questions and concerns were answered. Orders Placed This Encounter Procedures POCT urinalysis dipstick manually resulted Discussed with patient her recent A1c results and patient aware that referral will be sent to [facility] for Diabetic Education and monitoring. PVU and supplies sent to pharmacy for patient to pickup and take with her to her referral appointment. Follow Up: Patient is to return in 4 weeks for routine OB appointment. Documented by Wendy Ulloa LPN on behalf of: Scooby Alvarado DO documented in this encounter [facility] 10-16-2024 History of Presen [...] meat, and stay away from [facility]. Patient has also been advised to not [...] Faye Tyler MA documented in this encounter [facility] 07-09-2021 Evaluation note Encounter [...] Patient care instructions given in writting by [facility] 2] Care At Home document [facility] Other Evaluation note* Diagnosis Missed menses Missed menses , unspecified gestational age Encounter for supervision of normal first in first trimester [facility] Diagnosis 15 weeks gestation of Second trimester state, incidental Diet controlled gestational diabetes mellitus (GDM), antepartum Gestational diabetes mellitus (GDM), antepartum, gestational diabetes method of control unspecified Elevated glucose tolerance test Impaired glucose tolerance test [facility] Diagnosis Gestational diabetes mellitus (GDM) in second trimester, gestational diabetes method of control unspecified [facility] Second trimester ([facility]) state, incidental 18 weeks gestation of ([facility]-HCC) Well woman exam with routine gynecological exam Routine gynecological examination Screening, , for anatomic survey ([facility]) Encounter for anatomic survey Screen for STD (sexually transmitted disease) Screening examination for venereal disease Need for maternal serum alpha-protein (MSAFP) screening ([facility]) [facility] Diagnosis Second trimester ([facility]) state, incidental 22 weeks gestation of ([facility]) [facility] Diagnosis Second trimester ([facility]) state, incidental 26 weeks gestation of ([facility]) Diabetes mellitus screening Screening for diabetes mellitus [...] method of control unspecified ([facility]) [facility] Diagnosis Third trimester ([facility]) state, incidental 36 weeks gestation of ([facility]) documented in this encounter [facility] HealthcareInstructionsNot on filedocumented in this encounterProSt. [facility] SystemInstructionsNot on filedocumented in this encounterProSt. Mary[facility] Summary Purpose Family History No Family [...] DATE CREATED AUTHOR AUTHOR'S ORGANIZ ATION 03/24/2022 [facility] DATE CREATED AUTHOR AUTHOR'S ORGANIZ ATION 12/29/[address] [facility] DATE CREATED AUTHOR AUTHOR'S ORGANIZ ATION 11/25/2024 [facility] DATE CREATED AUTHOR AUTHOR'S ORGANIZ ATION 04/09/2025 [facility] EPIC REASON FOR VISIT (unrecogniz ed section and content) Reason Comments Amenorrhea Reason Comments Routine Visit Reason Comments Gestational Diabetes Specialty Diagnoses / Procedures Referred By Belen t Referred To Contact Maternal and Medicine Diagnoses Gestational diabetes mellitus (GDM) in second trimester, gestational diabetes method of control unspecified Scooby Alvarado, DO [address] [facility] [place] [address] Phone: tel: fax: Maternal- Medicine at [facility] [address] [place] [address] Phone: tel: fax: Referral ID Status Reason Start Date Expiration Date Visits Requested Visits Authorized [id number] Pending Review Specialty Services Required 11/19/2024 11/19/2025 1 1 Care Teams (unrecognized sec tion and content) Dukey Rider Relationship Specialty Start Date End Date No Pcp, [place] [address] PCP - General Family Medicine 12/19/23 Dukey Rider Relationship Specialty Start Date End Date No Pcp, [place] [address] PCP - General Family Medicine 12/19/23 Dukey Rider Relationship Specialty Start Date End Date No Pcp, [place] [address] PCP - General Family Medicine 12/19/23 FOR [...] BE BASED ON THE PRIMARY CLINICAL RECORDS. [facility] [employer] [facility]. provides no warranty or guarantee of the accuracy or completeness of information in this document.
[2025-04-10 09:54] VITALS: BP 122/63; PULSE 70
== END 2025-04-10 10:15 | disposition home or self-care (01) ==
LOC: FBCO 09:50 → FBC 09:52
PROVIDERS: Visit Provider Obstetrics & Gynecology
DX: O24.419 Gestational diabetes mellitus in pregnancy, unspecified control (principal)
CPT/HCPCS: 59025

== ENCOUNTER 2025-04-14 11:52 | Outpatient (OUT) | payer MEDICAID, SELFPAY ==
--- OUTSIDE RECORDS SUMMARY | 2024-07-15 11:45 | XMS_ITS ---
Author Organization [facility] vices Address [address] [place] [phone] Care Team Providers Care Research Nurse Name Role Phone Pako Mays [phone] REASON FOR VISIT CANCEL- Periodic Exam Social History Sex Assigned At : Social History Observation Description Sex Assigned At Female Encounters Encounter Location Date Provider Diagnosis [facility] [address] [place] [phone] 07/15/2024 Pako Mays Plan Of Treatment Next Appt Details Provider Name:Najma gimenez, 10/02/2025 11:15:00 AM, [address] [place] [address], [phone], Progress Notes * EDWINA AntonettejeanDOB:1990 (34 yo F)Acc No.[id number]:07/15/2024 Patient:?Paris MOSQUEDA :?Pako Mays DDSDOB:1990???Age:34 Y ???Sex:FemaleDate:07/15/2024Phone:[phone]:[address] [place], [place]-[id number] Subjective: * Chief Complaints: * 1 . CANCEL- Periodic Exam. * Medical History: Objective: * Vitals: Assessment: Plan: * Treatment: * Billing Information: * Visit Code: * Procedure Codes: * Electronic signature of Pako Mays DDS on 04/14/2025 at 08:13 AM EDTSign off status: Pending * Provider: Yesenia Mays DDS Date: 0 07/15/2024 Generated for Printing/Faxing/eTransmitting on:?04/14/2025 08:13 AM EDT
--- OUTSIDE RECORDS SUMMARY | 2024-07-28 03:45 | XMS_ITS ---
Author Organization [facility] vices Address [address] [place] [phone] Care Team Providers Care Superintendent Custodian Janitor Name Role Phone Pako Mays [facility] [phone] REASON FOR VISIT Recall (A) 33 Medications Medication SIG (Take, Route, Frequency, Duration) Notes Start Date End Date Status Pantoprazole Sodium 40 MG 1 tablet Orall y Once a day; Duration: 30 day(s) as needed 09/05/2021 Not-TakingDicyclomine HCl 20 MG1 tablet Orally Three times a day; Duration: 30 day(s)as gzqftx4909/05/2021Not-Taking Social History Sex Assigned At : Social History Observation Description Sex Assigned At Female Encounters Encounter Location Date Provider Diagnosis [facility] [address] [place] [phone] 07/28/2024 Pako Mays Plan Of Treatment Next Appt Details Provider Name:Najma gimenez, 10/02/2025 11:15:00 AM, [address] [place], [place], [phone], Progress Notes * Paris MOSQUEDADOB:1990 (34 yo F)Acc No.[id number]:07/28/2024 Patient:Paris FARR :?Pako Mays DDSDOB:1990???Age:34 Y ???Sex:FemaleDate:07/28/2024Phone:[phone]:[address] [place], [id number] Subjective: * Chief Complaints: * 1 . Recall (A) 33. * Medical History: * Medications: N ot-Taking/PRN Dicyclomine HCl 20 MG Tablet 1 tablet Orally Three times a day , Notes to Pharmacist: as needed, Not-Taking/PRN Pantoprazole Sodium 40 MG Tablet Delayed Release 1 tablet Orally Once a day , Notes to Pharmacist: as needed Objective: * Vitals: Assessment: Plan: * Treatment: * Billing Information: * Visit Code: * Procedure Codes: * Electronic signature of Pako Mays DDS on 04/14/2025 at 08:13 AM EDTSign off status: Pending * Provider: Yesenia Mays DDS Date: 0 07/28/2024 Generated for Printing/Faxing/eTransmitting on:?04/14/2025 08:13 AM EDT
--- OUTSIDE RECORDS SUMMARY | 2025-04-07 13:30 | XMS_ITS | Encounter Summary ---
Author Organization [facility] Address [address] [place] [address] Care Team Providers Care Senior Case Manager Name Role Phone Unavailable Primary Care Provider Unavailabl e Reason for Visit * ReasonCommentsRoutine Visit Encounter Details DateTypeDepartmentCare Team (Latest Contact Info)Jjndfyvosaw60/14/2025 1:30 PM EDTRoutine [facility] [address] [place] [phone] Deborah Kwan PA [address] [place], [facility] Third trimester ([facility]); 36 weeks gestation of ([facility]) Social History Tobacco UseTypesPacks/DayYears UsedDateSmoking Tobacco: Never Assessed Estimated Date of GkpewgcfCvpsvpvxIfb53/11/2025Based on last menstrual period of 07/29/2024 (Exact Date)Sex and Gender InformationValueDate RecordedSex Assigned at RjsavYukgtw77/03/2024 9:38 AM ESTLegal BclPmbzqc78/15/2023 6:47 PM EDTGender UyycvsjoGfnzkj57/03/2024 9:38 AM ESTSexual QdvtzqilitzXofyfrvo78/03/2024 9:38 AM ESTdocumented as of this encounter Last Filed Vital Signs Vital SignReadingTime TakenCommentsBlood Yrdbfpuz644/7004/07/2025 1:35 PM EDT Pulse--Temperature--Respiratory Rate--Oxygen Saturation--Inhaled Oxygen Concentration--Inhjsh61.2 kg (196 lb 12 oz)04/07/2025 1:35 PM [...] to check FSBS. Blood Glucose Monitoring Suppl ([facility] Glucometer) w/Device kit 1 kit, Does not apply, Daily, Use four times daily to check FSBS. In the morning prior to breakfast & 1 hour after each meal for a total of 4times daily. Jougyxbt-Ont-Vl-FA ( 1 + IRON PO) Take by mouth ProFe 391.3 (180 Fe) MG capsule 1 capsule, Daily ALLERGIES Allergies[1] PROBLEMS Active Ambulatory Problems Diagnosis Date Noted 28 weeks gestation of ([facility]) 02/16/2025 Third trimester ([facility]) 02/16/2025 Resolved Ambulatory Problems Diagnosis Date Noted [...] ASSESSMENT & PLAN ICD-10-CM 1. Third trimester ([facility]) Z34.93 POCT urinalysis dipstick manually resulted CULTURE, GROUP B STREP WITH SUSCEPTIBLITY CULTURE, GROUP B STREP WITH SUSCEPTIBLITY 2. 36 weeks gestation of ([facility]) Z3A.36 Patient is doing well but has [...] Plan of Treatment DateTypeDepartmentCare Team (Latest Contact Info)Nzxtmrcdqmz57/28/2025 2:20 PM EDTRoutine [facility] [address] [place] [phone] Deborah Kwan PA [address] [place] [address] 06/15/2025 9:50 AM ESTPostpartum Visit [facility] [address] [place] [address] Scooby Alvarado DO [address] [place] [address] NameTypePriorityAssociated DiagnosesOrder ScheduleCULTURE, GROUP B STREP WITH SUSCEPTIBLITYLabRoutine Third trimester ([facility]) Expected: 04/07/2025, Expires: 04/07/2026documented as of this encounter Procedures Procedure NamePriorityDate/TimeAssociated DiagnosisCommentsPOCT URINALYSIS NGQSEDIGZeqmevo48/14/2025 1:41 PM EDT Third trimester ([facility]) documented in this encounter Results * POCT [...] 1:41 PM EDT Narrative Authorizing ProviderResult TypeResult StatusCentra Health TEST ENTER/EDIT ORDERABLESFinal Result documented in this encounter Visit Diagnoses Diagnosis Third trimester ([facility]) state, incidental 36 weeks gestation of ([facility]) documented in this encounter
--- OUTSIDE RECORDS SUMMARY | 2025-04-14 11:10 | XMS_ITS | Encounter Summary ---
Author Organization [facility] Address [address] [place] [address] Care Team Providers Care Victim Advocate Name Role Phone Unavailable Primary Care Provider Unavailabl e Reason for Visit * ReasonCommentsRoutine Visit Encounter Details DateTypeDepartmentCare Team (Latest Contact Info)Wsuwngiohov86/21/2025 11:10 AM EDTRoutine [facility] [address] [place] [phone] Scooby Alvarado DO [address] [place] [address] Third trimester ([facility]); 37 weeks gestation of ([facility]) Social History Tobacco UseTypesPacks/DayYears UsedDateSmoking Tobacco: Never Assessed Estimated Date of ZqmjhamvFikrbnymAga20/11/2025Based on last menstrual period of 07/29/2024 (Exact Date)Sex and Gender InformationValueDate RecordedSex Assigned at XwyaeAakacl82/03/2024 9:38 AM ESTLegal TfcShcuoh55/15/2023 6:47 PM EDTGender GuiwiqjqGqmtnv23/03/2024 9:38 AM ESTSexual DbttvrohnceFbfulpqn48/03/2024 9:38 AM ESTdocumented as of this encounter Last Filed Vital Signs Vital SignReadingTime TakenCommentsBlood Dhiqhrth727/7810 11:06 AM EDT Pulse--Temperature--Respiratory Rate--Oxygen Saturation--Inhaled Oxygen Concentration--Tboxrw58.1 kg (200 lb 12.8 oz)04/14/2025 11:06 AM EDTHeight--Body Mass Index34.4706 10:26 AM EDTdocumented in this encounter Plan of Treatment DateTypeDepartmentCare Team (Latest Contact Info)Lyhyqrafxbb60/28/2025 2:20 PM EDTRoutine [facility] [address] [place] [address] [place] [phone] Deborah Kwan PA [address] [place], [place] [phone] 06/15/2025 9:50 AM ESTPostpartum Visit [facility] [address] [place] [address] [place] [address] Scooby Alvarado DO [address] [place] [address] documented as of this encounter Procedures Procedure NamePriorityDate/TimeAssociated DiagnosisCommentsPOCT URINALYSIS HHTSCPLESejpkba72/21/2025 11:12 AM EDT 37 weeks gestation of ([facility]) documented in this encounter Results * (ABNORMAL) POCT urinalysis dipstick manually resulted (04/14/2025 11:12 AM EDT)ComponentValueRef RangeTest MethodAnalysis TimePerformed AtPathologist SignatureColor, UAYellowClarity, UAClearGlucose, UANegativeNegative - 1999(110) ++++ mg/dLBilirubin, UA2+Negative - 4(70) +++ mg/dLKetones, UA PositiveNegative - 160(16) ++++ mg/dLSpec Grav, UA1.0251 - 1.03Blood, UA NegativeNegative - 50 Celestino/mcLpH, UA6.05 - 9Protein, UA1+Negative - 2000(20) ++++ mg/dLUrobilinogen, UA>=8.00.2 - 12 mg/dLLeukocytes, UA3+Negative - 500+++ Dodie/mcLNitrite, UANegativeNegative - PositiveSpecimen (Source)Anatomical Location / LateralityCollection Method / VolumeCollection TimeReceived Time Urine04/14/2025 11:12 AM EDT Narrative Authorizing ProviderResult TypeResult StatusCorey Jenny DOPOINT OF CARE TEST ENTER/EDIT ORDERABLESFinal Result documented in this encounter Visit Diagnoses Diagnosis Third trimester ([facility]) state, incidental 37 weeks gestation of ([facility]) documented in this encounter
--- OUTSIDE RECORDS SUMMARY | 2025-04-14 11:55 | XMS_ITS ---
Author Organization [facility] Address [address] [place] [address] Care Team Providers Care Crocheter Hand Name Role Phone Unavailable Primary Care Provider Unavailabl e Comprehensive Maternal Care ([facility]) Status:Identified (Enrolling) Start date:04/09/2025 Enrollment reason:Identified by Health Plan NameRelationshipPhoneAmy Karen CARRILLO(Responsible Staff)Licensed Practical Nurse [phone] Continued Care and Services Coordination
--- OUTSIDE RECORDS SUMMARY | 2025-04-14 11:55 | XMS_ITS | Encounter Summary ---
Author Organization [facility] Address [address] [place] [address] Care Team Providers Care Data Warehouse Architect Name Role Phone Unavailable Primary Care Provider Unavailabl e Encounter Details DateTypeDepartmentCare Team (Latest Contact Info)Ubrnuugcgno55/21/2025amboo flowsheet [facility] [address] [place] [address] Scooby Avlarado DO [address] [place], [facility] Social History Tobacco UseTypesPacks/DayYears UsedDateSmoking Tobacco: Never Assessed Estimated Date of NtsayeikVvdgrdmgUdk94/11/2025Based on last menstrual period of 07/29/2024 (Exact Date)Sex and Gender InformationValueDate RecordedSex Assigned at WvyzkFgdamc16/03/2024 9:38 AM ESTLegal RjyQhbygw59/15/2023 6:47 PM EDTGender QqatabhcUmokfe69/03/2024 9:38 AM ESTSexual PkiorwfgcyuGbkybjsg54/03/2024 9:38 AM ESTdocumented as of this encounter Plan of Treatment DateTypeDepartmentCare Team (Latest Contact Info)Srldapfyayb11/28/2025 2:20 PM EDTRoutine [facility] [place] [facility] [address] [place] [address] Deborah Kwan PA [address] [facility] [address] [place], [facility] 06/15/2025 9:50 AM ESTPostpartum Visit [facility] [address] [facility] [place] [address] Scooby Alvarado DO [address] [place] [address] [place] [address] documented as of this encounter Visit Diagnoses Not on filedocumented in this encounter
--- OUTSIDE RECORDS SUMMARY | 2025-04-14 11:55 | XMS_ITS | Encounter Summary ---
Author Organization [facility] Address [address] [place] [address] Care Team Providers Care Knowledge Manager Name Role Phone Unavailable Primary Care Provider Unavailabl e Encounter Details DateTypeDepartmentCare Team (Latest Contact Info)Acysoilzsts44/07/2025linisync Result Encounter [facility] External Department Unsolicited Jem Ambrosio, KAYY [address] [place] [address] Social History Tobacco UseTypesPacks/DayYears UsedDateSmoking Tobacco: Never Assessed Estimated Date of JkpqtowkWhhbxcabSvn19/11/2025Based on last menstrual period of 07/29/2024 (Exact Date)Sex and Gender InformationValueDate RecordedSex Assigned at JvfkqBmsdrp14/03/2024 9:38 AM ESTLegal TuzAioecf58/15/2023 6:47 PM EDTGender JzyaikepQqikyd24/03/2024 9:38 AM ESTSexual KvvlmsjutneYyqcistv49/03/2024 9:38 AM ESTdocumented as of this encounter Plan of Treatment DateTypeDepartmentCare Team (Latest Contact Info)Rjkikvkuvtv58/28/2025 2:20 PM EDTRoutine [facility] [facility] [address] [place] [address] Deborah Kwan PA [address] [place] [address] 06/15/2025 9:50 AM ESTPostpartum Visit [facility] [facility] [address] [place] [address] Scooby Alvarado, DO [address] [place] [address] documented as of this encounter Procedures Procedure NamePriorityDate/TimeAssociated DiagnosisCommentsUS OB BPP W NON-XEWCFW8403/31/2025 5:44 PM EDT documented in this encounter Results * US OB BPP W NON-STRESS (03/31/2025 5:44 PM EDT)Anatomical Region LateralityModalityOtherSpecimen (Source)Anatomical Location / Laterality Collection Method / VolumeCollection TimeReceived Time03/31/2025 5:44 PM EDT Narrative 03/31/2025 5:47 PM EDT [facility] ?[address] ? [place] [address] ? Ultrasound Report ? Signed ? Patient: MOSQUEDA,PRISCILLA ? MR#: [id number] ?? : 1990 ?Acct:[id number] ?? Age/Sex: 34 / F ?ADM Date: 03/31/25 ?? Loc: US ? Attending Dr: Jem Ambrosio ? Ordering Physician: Jem Ambrosio ?? Date of Service: 03/31/25 ?? Procedure(s): US OB BPP w non-stress ?? Accession Number(s): [id number] ? cc: Jem Ambrosio; [facility] ? [facility] ? [address] ? [place] [address] ? Patient Name: ?? PRISCILLA ??MOSQUEDA ? MRN: [id number] ? date: 1990 ?Sex: F ?? Assigned Patient Location: [facility] ?? Current Patient Location: ? Accession/Order Number: [id number] ?? Exam Date: 03/31/2025 ??12:57 ?Report Date: 03/31/2025 ??17:44 ? At the request of: ?? JEM ??ESTELLE ? Procedure: ??US OB BPP w non-stress ? Ultrasound biophysical profile ? INDICATION: Gestational diabetes ? FINDINGS/ IMPRESSION: Cephalic position. ??8/ 8 score biophysical profile. ??JEANNINE ?? measures 7.9 cm which is borderline oligohydramnios. ?? heart rate 152 ?? beats per minutes. ? Impression dictated by: Nito Chong M.D. ??03/31/2025 5:44 PM ? Dictation Location: RADIO-PC-29 ? Electronically authenticated by: [id number] ??Y ?? Date: 03/31/2025 ??17:44 ? Dictated By: ?Nito Chong M.D. ? Signed By: ?03/31/25 174 ? DD/ 1744 ? TD/TT: ? Supply Chain Associate: Procedure Note Radiology, Radiologist, MD - 03/31/2025 [place] [address] Ultrasound Report Signed Patient: PRISCILLA MOSQUEDAMR#: [id number] : 1990Acct:[id number] Age/Sex: 34 / FADM Date: 03/31/25 Loc: US Attending Dr: Jem mAbrosio Ordering Physician: Jem Ambrosio Date of Service: 03/31/25 Procedure(s): US OB BPP w non-stress Accession Number(s): [id number] cc: Jem Ambrosio; [facility] [place] [id number] Patient Name: PRISCILLA MOSQUEDA MRN: [id number] date: 1990 Sex: F Assigned Patient Location: [facility] Current Patient Location: Accession/Order Number: [id number] Exam Date: 03/31/2025 12:57 Report Date: 03/31/2025 17:44 At the request of: JEM AMBROSIO Procedure: US OB BPP w non-stress Ultrasound biophysical profile INDICATION: Gestational diabetes FINDINGS/ IMPRESSION: Cephalic position. 8/ 8 score biophysical profile.JEANNINE measures 7.9 cm which is borderline oligohydramnios. heart rate 152 beats per minutes. Impression dictated by: Nito Chong M.D. 03/31/2025 5:44 PM Dictation Location: [place] [address] Electronically authenticated by: [id number] Y Date: 7:44 Dictated By: Nito Chong M.D. Signed By:03/31/251746 DD/ 43 TD/TT: Supply Chain Associate: Authorizing ProviderResult TypeResult StatusJem Ambrosio NPCLINISYNC IMAGING Final Result documented in this encounter Visit Diagnoses Not on filedocumented in this encounter
--- OUTSIDE RECORDS SUMMARY | 2025-04-14 11:55 | XMS_ITS | Clinical Summary ---
Author Organization [facility] [employer] [facility] tem Address [id number] [address] [place] [address] Care Team Providers Care Vice President Integrated Name Role Phone No Pcp, No Pcp Primary Care Provider Unavailabl e Allergies No known active allergies Medications MedicationSigDispense QuantityRefillsLast FilledStart DateEnd DateStatus norgestimate-ethinyl estradioL (ORTHO-CYCLEN) 0.25-35 mg-mcg per tablet Indications:Encounter for contraceptive management, unspecified typeTake 1 tablet by mouth daily. 56 tablet Active Active Problems ProblemNoted DateDiagnosed LknrQjxcwerbkgy19/27/2024Estimated Date of GiysfkzdRbaprddgRxf09/11/2025Based on last menstrual period of 07/29/2024 Encounters DateTypeDepartmentCare SuzcHopuziqlemo94/26/2025Telephone Maternal- Medicine at [facility] [address] [facility] [place] [phone] Amanda Putnam LD from Last 3 Months Family History Medical HistoryRelationNameCommentsDiabetesFatherDiabetesMotherHypertension MotherRelationNameStatusCommentsFatherMotherAlive Social History Tobacco UseTypesPacks/DayYears UsedDateSmoking Tobacco: NeverSmokeless Tobacco: NeverAlcohol UseStandard Drinks/WeekCommentsNot Currently0 (1 standard drink = 0.6 oz pure alcohol)Housing InstabilityAnswerDate RecordedAre you worried or concerned that in the next two months you may not have stable housing that you own, rent or stay in as a part of a household?No4ChildcareAnswerDate ZkxqodiqTwglndrevOkbsros25/12/2019EmploymentAnswerDate RecordedEmploymentUnknown 12/04/2018Hunger ScreeningAnswerDate RecordedWithin the past 12 months we worried whether our food would run out before we got money to buy more.Never True12/20/2023Within the past 12 months the food we bought just didn't last and we didn't have money to get more.Never True4Purpose - LifeAnswerDate RecordedPurpose and direction in ukfqKqprfch75/11/2021Estimated Date of KpyabatgVkpqssubWzt82/11/2025Based on last menstrual period of 07/29/2024Sex and Gender InformationValueDate RecordedSex Assigned at BirthNot on fileLegal Sex Wufokn0901/28/2015 11:48 AM EDTGender IdentityNot on fileSexual OrientationNot on file Last Filed Vital Signs Vital SignReadingTime TakenCommentsBlood Hifenxvo321/6006 9:47 AM EDT Qhfrt729412/21/2023 9:47 AM XPEPuxrxkvjfro73.7 ??C (98.1 ??F)12/21/2023 9:47 AM EDTRespiratory Eszp092512/21/2023 9:47 AM EDTOxygen Igjznzsshl24%12/20/2023 10:15 PM EDTInhaled Oxygen Concentration--Gddvrt29.7 kg (189 lb)11/24/2024 3:59 PM EDT Kbyfzd718.5 cm (5' 2 )12/20/2023 7:47 PM EDTBody Mass Index34.57012/20/2023 7:47 PM EDT Plan of Treatment Health MaintenanceDue DateLast DoneCommentsDepression Buyzttbox93/10/2004Pap Smear2012Tobacco Ifvnlvqll75/28//4COVID-19 Vaccine ( season)502/, 12/16/2020, 11/16/2020Influenza Vaccine /04/2024, 04/25/2023, 04/01/2022, Additional history existsAdult BMI Ztpphhign21DTaP,Tdap and Td Vaccines (3 - Td or Tdap) /, 07/11/2021 Medical Devices Not on file Insurance Advance Directives * Full Code (Latest Code Status on File) Date ActivatedDate InactivatedComments12/20/2023 11:13 PM12/21/2023 1:46 PM Care Teams Team MemberRelationshipSpecialtyStart DateEnd Date No Pcp, [place] [id number] PCP - GeneralFamily Medicine12/19/23
--- OUTSIDE RECORDS SUMMARY | 2025-04-14 11:55 | XMS_ITS | Encounter Summary ---
Author Organization [facility] Address [address] [place] [address] Care Team Providers Care Manager E Commerce Name Role Phone Unavailable Primary Care Provider Unavailabl e Encounter Details DateTypeDepartmentCare Team (Latest Contact Info)Vsryvttvgsm76/21/2025Travel Social History Tobacco UseTypesPacks/DayYears UsedDateSmoking Tobacco: Never Assessed Estimated Date of PotwetjdMaoeflyrVuu95/11/2025Based on last menstrual period of 07/29/2024 (Exact Date)Sex and Gender InformationValueDate RecordedSex Assigned at EeympNcbtey42/03/2024 9:38 AM ESTLegal PrgSyvjmu23/15/2023 6:47 PM EDTGender EuqdirvkWgmyxw76/03/2024 9:38 AM ESTSexual ClerfuhmgmzPiymxpyz03/03/2024 9:38 AM ESTdocumented as of this encounter Plan of Treatment DateTypeDepartmentCare Team (Latest Contact Info)Zjjdoefinxu62/28/2025 2:20 PM EDTRoutine NOM[facility] [address] [facility] [address] Deborah Kwan PA [address] [place], [facility]11 06/15/2025 9:50 AM ESTPostpartum Visit SHERLY MARES [address] [address] Scooby Alvarado DO [address] [place] [address] documented as of this encounter Visit Diagnoses Not on filedocumented in this encounter
--- OUTSIDE RECORDS SUMMARY | 2025-04-14 11:55 | XMS_ITS | Clinical Summary ---
Author Organization [facility] Address [address] [place] [address] Care Team Providers Care Ammunition Assembly I Laborer Name Role Phone Unavailable Primary Care Provider Unavailabl e Allergies No known active allergies Medications MedicationSigDispense QuantityRefillsLast FilledStart DateEnd DateStatus Bckknosp-Uaw-Ur-FA ( 1 + IRON PO) Take by mouthActive Alcohol Swabs (Alcohol Prep Pad) 70 % pads Indications:Gestational diabetes mellitus (GDM), antepartum, gestational diabetes method of control unspecified([facility]),Elevated glucose tolerance test Apply 1 Pad topically Daily Use four times daily to check FSBS. 150 each tive Blood Glucose Monitoring Suppl (D-Care Glucometer) w/Device kit Indications:Gestational diabetes mellitus (GDM), antepartum, gestational diabetes method of control unspecified([facility]),Elevated glucose tolerance test1 kit Daily Use four times daily to check FSBS. In the morning prior to breakfast & 1 hour after each meal for a total of 4times daily. 1 kit ctive ProFe 391.3 (180 Fe) MG capsule Take 1 capsule by mouth Daily02/04/2024ctive Active Problems ProblemNoted DateDiagnosed Date28 weeks gestation of ([facility]) 02/16/2025Third trimester ([facility])02/16/2025Estimated Date of VvrbuznjCbjttlneOof11/11/2025Based on last menstrual period of 07/29/2024 (Exact Date) Encounters DateTypeDepartmentCare XfbpSgbphjjqdql07/21/2025 11:10 AM EDTRoutine [facility] [place] [facility] [address] [place] [address] Scooby Alvarado, Third trimester ([facility]); 37 weeks gestation of ([facility])04/14/20256594Nbehku97/21/2025amboo flowsheet [facility] [place] [facility] [address] [place] [address] Scooby Alvarado DO 04/07/2025 1:30 PM EDTRoutine [facility] [place] [facility] [address] [place] [address] Deborah Kwan PA Third trimester ([facility]); 36 weeks gestation of ([facility])04/07/2025amb flowsheet [facility] [place] [facility] [address] [place] [address] Deborah Kwan PA 03/31/2025linisync Result Encounter [facility] External Department Unsolicited Krys Ambrosio NP 03/24/2025 10:50 AM EDTRoutine [facility] [place] [facility] [address] [place] [address] Krys Ambrosio NP 34 weeks gestation of ([facility]); Third trimester ([facility]); Gestational diabetes mellitus (GDM) in third trimester, gestational diabetes method of control unspecified ([facility])03/24/2025amb flowsheet [facility] [place] [facility] [address] [place] [address] Krys Ambrosio NP 03/24/20252251Jhyrml85/26/2025bstract [facility] [place] [facility] [address] [place] [address] Scooby Alvarado DO 03/20/2025bstract [facility] [place] [facility] [address] [place] [address] Scooby Alvarado DO 03/10/2025 1:20 PM EDTRoutine [facility] [place] [facility] [address] [place] [address] Deborah Kwan PA 32 weeks gestation of ([facility]); Third trimester ([facility])03/10/20256270Ikkvjb11/16/2025Bamboo flowsheet [facility] [place] [facility] [address] [place] [address] Deborah Kwan PA 02/25/2025 3:00 PM EDTAncillary Procedure [facility] [place] [facility] [address] [place] [address] [place] [address] Size of fetus inconsistent with dates in second trimester ([facility])02/25/2025 Dibhda4402/16/2025 2:30 PM EDTRoutine [facility] [place] [facility] [address] [place] [address] Debroah Kwan PA Size of fetus inconsistent with dates in second trimester ([facility]) (Primary Dx); 28 weeks gestation of ([facility]); Third trimester ([facility])02/16/2025amboo flowsheet [facility] [place] [facility] [address] [place] [address] [place] [address] Deborah Kwan PA 02/16/20256846Dzgyoo84/22/2025Clinisync Result Encounter NOMS External Department Unsolicited Scooby Alvarado DO 02/02/2025 2:50 PM EDTRoutine [facility] [place] [facility] [address] [place] [address] [place] [address] Scooby Alvarado DO Second trimester ([facility]); 26 weeks gestation of ([facility]); Diabetes mellitus xbxsijzwn15/11/2025amboo flowsheet [facility] [place] [facility] [address] [place] [address] [place] [address] Scooby Alvarado DO 02/02/20256338Suedph77/04/2025 3:00 PM EDTAncillary Procedure [facility] [place] [facility] [address] [place] [address] Encounter for follow-up ultrasound of anatomy ([facility])01/26/2025Travel from Last 3 Months Family History Medical HistoryRelationNameCommentsDiabetesFatherDiabetesMotherHypertension MotherDepressionOtherDiabetesOtherHyperlipidemiaOtherHypertensionOtherRelation NameStatusCommentsFatherMotherOther Social History Tobacco UseTypesPacks/DayYears UsedDateSmoking Tobacco: Never Assessed Estimated Date of DcgvmctlKjygxouvCvb21/11/2025ased on last menstrual period of 07/29/2024 (Exact Date)Sex and Gender InformationValueDate RecordedSex Assigned at UiwfmSzryhn84/03/2024 9:38 AM ESTLegal NpvKoojqw17/15/2023 6:47 PM EDTGender EzjvwuwrIbfbxa26/03/2024 9:38 AM ESTSexual AqitlyivlgyNlwplwqq12/03/2024 9:38 AM EST Last Filed Vital Signs Vital SignReadingTime TakenCommentsBlood Mqkayrjb104/7804/14/2025 11:06 AM EDT Pulse--Temperature--Respiratory Rate--Oxygen Saturation--Inhaled Oxygen Concentration--Sajnzs47.1 kg (200 lb 12.8 oz)04/14/2025 11:06 AM RHEPtlicv574.6 cm (5' 4 )12/04/2024 10:26 AM EDTBody Mass Index34.47012/04/2024 10:26 AM EDT Plan of Treatment DateTypeDepartmentCare Team (Latest Contact Info)Buptszwgixe55/28/2025 2:20 PM EDTRoutine [facility] [place] [facility] [address] [place] [address] Deborah Kwan PA [address] [place] [address] 06/15/2025 9:50 AM ESTPostpartum Visit NOM[facility] [address] [place] [address] Scooby Alvarado, DO [address] [facility] [address] [place] [address] Health MaintenanceDue DateLast DoneCommentsInfluenza Vaccine (#1)02/23/2025 04/04/2024, 04/25/2023, 04/01/2022, Additional history existsCervical Cancer Uqqfgtnjc31/12/2030HPV/Vlzins6712/04/2029Pap Smear Procedures Procedure NamePriorityDate/TimeAssociated DiagnosisCommentsPOCT URINALYSIS TRXBWKQZTqzrfit46/21/2025 11:12 AM EDT 37 weeks gestation of ([facility]) POCT URINALYSIS JMGOJOTVJlohpup25/14/2025 1:41 PM EDT Third trimester ([facility] US OB BPP W NON-NERESX9703/31/2025 5:44 PM EDT POCT URINALYSIS PFUGMLKJWuplsbp09/30/2025 11:11 AM EDT Third trimester ([facility]) POCT URINALYSIS PWWNTRPZHqishyk74/16/2025 1:32 PM EDT 32 weeks gestation of ([facility]) Third trimester ([facility]) US OB FOLLOW UP TRANSABDOMINAL KSOUBBMDYjphugu68/03/2025 3:22 PM EDT Size of fetus inconsistent with dates in second trimester ([facility]) ALL CBC WITH AUTO ZCLTRznlxnn05/22/2025 7:06 AM EDT POCT URINALYSIS YEYADNICCwigpme43/11/2025 3:06 PM EDT Second trimester ([facility]) US OB LIMITED 1+ YOJBZKFQxhitxa83/04/2025 3:47 PM EDT Encounter for follow-up ultrasound of anatomy ([facility]) PAP DCWOCWofsjrp66/12/2025 12:00 AM EDTfrom Last 3 Months or Most Recently Relevant to Health Maintenance Results * (ABNORMAL) POCT urinalysis dipstick manually resulted (04/14/2025 11:12 AM EDT) Only the most recent of5 resultswithin the time period is included. ComponentValueRef RangeTest MethodAnalysis TimePerformed AtPathologist Signature Color, UAYellowClarity, UAClearGlucose, UANegativeNegative - 2000(110) ++++ mg/dLBilirubin, UA2+Negative - 4(70) +++ mg/dLKetones, UAPositiveNegative - 160(16) ++++ mg/dLSpec Grav, UA1.0251 - 1.03Blood, UANegativeNegative - 50 Celestino/mcLpH, UA6.05 - 9Protein, UA1+Negative - 2000(20) ++++ mg/dLUrobilinogen, UA >=8.00.2 - 12 mg/dLLeukocytes, UA3+Negative - 500+++ Dodie/mcLNitrite, UANegative Negative - PositiveSpecimen (Source)Anatomical Location / LateralityCollection Method / VolumeCollection TimeReceived XcdaXqwyv45/21/2025 11:12 AM EDT Narrative Authorizing ProviderResult TypeResult StatusCorey Jenny DOPOINT OF CARE TEST ENTER/EDIT ORDERABLESFinal Result * US OB BPP W NON-STRESS (03/31/2025 5:44 PM EDT)Anatomical Region LateralityModalityOtherSpecimen (Source)Anatomical Location / Laterality Collection Method / VolumeCollection TimeReceived Time03/31/2025 5:44 PM EDT Narrative 03/31/2025 5:47 PM EDT [facility] ?[address] ? [place] [address] ? Ultrasound Report ? Signed ? Patient: MOSQUEDA,PRISCILLA ? MR#: [id number] ?? : 1990 ?Acct:[id number] ?? Age/Sex: 34 / F ?ADM Date: 10/07/25 ?? Loc: US ? Attending Ruben Ambrosio ? Ordering Physician: Krys Ambrosio ?? Date of Service: 03/31/25 ?? Procedure(s): US OB BPP w non-stress ?? Accession Number(s): [id number] ? cc: Krys Ambrosoi; [facility] ? [facility] ? [address] ? [place] [address] ? Patient Name: ?? PRISCILLA ??MOSQUEDA ? MRN: [facility]:[id number] ? date: 1990 ?Sex: F ?? Assigned Patient Location: [facility] ?? Current Patient Location: ? Accession/Order Number: [id number] ?? Exam Date: 03/31/2025 ??12:57 ?Report Date: 03/31/2025 ??17:44 ? At the request of: ?? KRYS ??ESTELLE ? Procedure: ??US OB BPP w non-stress ? Ultrasound biophysical profile ? INDICATION: Gestational diabetes ? FINDINGS/ IMPRESSION: Cephalic position. ??8/ 8 score biophysical profile. ??JEANNINE ?? measures 7.9 cm which is borderline oligohydramnios. ?? heart rate 152 ?? beats per minutes. ? Impression dictated by: Nito Chong M.D. ??03/31/2025 5:44 PM ? Dictation Location: [facility]- ? Electronically authenticated by: [id number] ??Y ?? Date: 03/31/2025 ??17:44 ? Dictated By: ?Nito Chong M.D. ? Signed By: ?03/31/25 1747 ? DD/ 1744 ? TD/TT: ? Automatic Door Mechanic: Procedure Note Radiology, Radiologist, MD - 03/31/2025 [place] [address] Ultrasound Report Signed Patient: PRISCILLA MOSQUEDA#: [id number] : 1990Acct:[id number] Age/Sex: 34 / FADM Date: 03/31/25 Loc: US Attending Dr: Krys Ambrosio Ordering Physician: Krys Ambrosio Date of Service: 03/31/25 Procedure(s): US OB BPP w non-stress Accession Number(s): [id number] cc: Krys Ambrosio; [place] [id number] Patient Name: PRISCILLA MOSQUEDA MRN: [facility]:[id number] date: 1990 Sex: F Assigned Patient Location: [facility] Current Patient Location: Accession/Order Number: [id number] Exam Date: 03/31/2025 12:57 Report Date: 03/31/2025 17:44 At the request of: KRYS AMBROSIO Procedure: US OB BPP w non-stress Ultrasound biophysical profile INDICATION: Gestational diabetes FINDINGS/ IMPRESSION: Cephalic position. 8/ 8 score biophysical profile.JEANNINE measures 7.9 cm which is borderline oligohydramnios. heart rate 152 beats per minutes. Impression dictated by: Nito Chong M.D. 03/31/2025 5:44 PM Dictation Location: [place] [address] Electronically authenticated by: [id number] Y Date: 7:44 Dictated By: Nito Chong M.D. Signed By:03/31/25 174 DD/ 174 TD/TT: Automatic Door Mechanic: Authorizing ProviderResult TypeResult StatusKrys Ambrosio NPCLINISYNC IMAGING Final Result * US OB follow up transabdominal approach (02/25/2025 3:22 PM EDT)Anatomical RegionLateralityModalityBodyUltrasoundSpecimen (Source)Anatomical Location / LateralityCollection Method / VolumeCollection TimeReceived Time02/25/2025 3:47 PM EDT Impressions 02/26/2025 7:33 AM EDT 1. Single, live intrauterine , current sonographic age of 29 weeks and 4 days, with an estimated date of delivery of May 02, 2025 2. Comparison made with prior examination of December 19, 2024, delivery at that time was May 11, 2025. * ??Estimated Weight (g) by Percentile is based upon an accurate estimated age based onlast menstrual period. ?? TRANSCRIBED BY: ? ELECTRONICALLY SIGNED BY: Logan Caal MD Narrative 02/26/2025 7:33 AM EDT FINDINGS: A single, live intrauterine is present with normal cardiac rate of 157 ??beats per minute. Normal activity and amniotic fluid volume. Amniotic fluid index is 15.0 ??cm. ??Morphology is grossly normal. ??The current sonographic age is ??29 weeks and 4 days, based on the following measurements: BPD ? 7.3 cm ( 29 weeks, 3 days) Head Circumference ?26.9 cm ( 29weeks, 2 days) Abdominal Circumference ?24.9cm (29 ??weeks ?? 1 days) Femur Length ?5.5cm ( ?? 28 weeks, 6 days) Presentation ? Cephalic ? Placenta ? Weight (g) by Percentile ?? 10.3% * These measurements result in an estimated date of delivery of ??May 12, 2025 ??The current estimated weight is 1331 ?grams (2 ??pound, ??15 ounces). ?? Procedure Note Logan Caal MD - 02/26/2025 [...] BY: ELECTRONICALLY SIGNED BY: Logan Caal MD Authorizing ProviderResult TypeResult StatusAmy Aquiles RAMOS OB US PROCEDURES Final Result * (ABNORMAL) ALL CBC WITH AUTO DIFF (02/13/2025 7:06 AM EDT)ComponentValueRef RangeTest MethodAnalysis TimePerformed AtPathologist SignatureTBH WBC9.74.0 - 11.0 10 3/uLTBHTBH RBC4.18(L)4.20 - 5.40 10 6/uLTBHTBH HGB10.6(L)12.0 - 16.0 g/dLTBHTBH HCT33.1(L)36.0 - 48.0 %TBHTBH MCV79.2(L)81.0 - 99.0 fLTBHTBH MCH 25.4(L)26.7 - 34.0 pgTBHTBH MCHC32.029.9 - 35.2 g/dLTBHTBH RDW15.011.0 - 15.0 %TBHTBH SNT059677 - 450 10 3/uLTBHTBH MPV10.09.5 - 13.5 fLTBHNEUTROPHILS PERCENT AUTO58.143.0 - 75.0 %TBHLYMPHOCYTES PERCENT AUTO31.120.5 - 60.0 %TBH MONOCYTES PERCENT AUTO8.41.7 - 12.0 %TBHTBH EO %1.50.9 - 7.0 %TBHBASOPHILS PERCENT AUTO0.40.2 - 2.0 %TBHIMMATURE GRANULOCYTES PCT AUTO0.50.0 - 0.5 %TBH NEUTROPHILS ABSOLUTE AUTO5.71.4 - 6.5 10 3/uLTBHLYMPHOCYTES ABSOLUTE AUTO3.0 1.2 - 3.8 10 3/uLTBHMONOCYTES ABSOLUTE AUTO0.80.3 - 0.8 10 3/uLTBHTBH EO #0.2 0.0 - 0.7 10 3/uLTBHBASOPHILS ABSOLUTE AUTO0.00.0 - 0.1 10 3/uLTBHIMMATURE GRANULOCYTES ABS AUTO0.05(H)0.00 - 0.03 10 3/uLTBHSpecimen (Source)Anatomical Location / LateralityCollection Method / VolumeCollection TimeReceived Time 02/13/2025 7:06 AM EDT02/13/2025 7:06 AM EDT Narrative [facility]NC - 02/13/2025 7:22 AM EDT Authorizing ProviderResult TypeResult StatusCoreascencion Alvarado DOCLINISYNCFinal Result Performing OrganizationAddressCity/State/ZIP CodePhone Number CLINISYNC [facility] * US OB limited 1+ fetuses (01/26/2025 3:47 PM EDT)Anatomical RegionLaterality ModalityBodyUltrasoundSpecimen (Source)Anatomical Location / Laterality Collection Method / VolumeCollection TimeReceived Time01/27/2025 1:41 PM EDT Impressions 01/27/2025 1:44 PM EDT Normal cardiac and outflow tract anatomy. TRANSCRIBED BY: ? ELECTRONICALLY SIGNED BY: Logan Caal MD Narrative 01/27/2025 1:44 PM EDT FINDINGS: Single viable intrauterine , breech presentation with normal cardiac and activity, 15 0 bpm. Age appropriate, normal visualization of the left ventricular and right ventricular outflowtracts. Procedure Note Logan Caal MD - 01/27/2025 FINDINGS: Single viable intrauterine , breech presentation with normalcardiac and activity, 15 0 bpm. Age appropriate, normalvisualization of the left ventricular and right ventricular outflowtracts. IMPRESSION: Normal cardiac and outflow tract anatomy. TRANSCRIBED BY: ELECTRONICALLY SIGNED BY: Logan Caal MD Authorizing ProviderResult TypeResult StatusScooby Alvarado [facility] OB US PROCEDURES Final Result * Pap Smear (12/04/2024 12:00 AM EDT)Specimen (Source)Anatomical Location / LateralityCollection Method / VolumeCollection TimeReceived TimeSwabCervical swab / Unknown Narrative Authorizing ProviderResult TypeResult StatusCoreascencion Alvarado DOLAB CYTOLOGY ORDERABLESFinal ResultPerforming OrganizationAddressCity/State/ZIP CodePhone Number EXTERNAL LAB from Last 3 Months or Most Recently Relevant to Health Maintenance Insurance
--- OUTSIDE RECORDS SUMMARY | 2025-04-14 11:55 | XMS_ITS | Patient Health Record ---
Author Organization [facility] Address [address] [place], [place] [id number] Care Team Providers Care Pharmacy Order Entry Technician Name Role Phone Pako Mays Unavailable [phone] HuangNajma eddy Unavailable [phone] Allergies No Known Allergies Reason For Referral No Information Medications Medication SIG (Take, Route, Frequency, Duration) Notes Start Date End Date Status Dicyclomine HCl 20 MG 1 tablet Orally Th ree times a day; Duration: 30 day(s) as needed 09/05/2021 Not-TakingPantoprazole Sodium 40 MG1 tablet Orally Once a day; Duration: 30 day(s)as lgihwq7509/05/2021Not-Taking Social History Sex Assigned At : Social History Observation Description Sex Assigned At Female Alcohol Screen (Audit-C) Question Answer Notes Did you have a drink containing alcohol in the p ast year? No Ufyvlz4AhxamyyitcdxjuUmsqkmkuZUMZ-OQQ Questionnaire (2018 Edition) Question Answer Notes Have [...] No patient entered data CAGE-AID Score 0 InterpretationNegativePRAPARE Question Answer Notes Date Completed/Updated: 12/06/2023 patie nt entered data What is your current housing situation? I have housing patient entered data Are you worried about losing your housing? No patient entered data What is the highest level of school that you have finished? 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 Check all that apply I do not have problems meeting my needs Has lack of transportation kept you from medical appointments, meetings, work or from getting things needed for daily living?NoHow often do you see or talk to people that you care about and feel close to? (For example: talkingto friends on the phone, visiting friends or family, going to voodoo or club meetings)More than 5 times a weekpatient entered dataHow stressed are you? Stress is when someone feels tense, nervous, anxious, or can't sleep at nightbecause their mind is troubledNot at allpatient entered dataIn the past year have you spent more than 2 nights in a row in a detention, care home, long term center, orjuvenile correctional facility?Nopatient entered dataAre you a refugee?Nopatient entered dataWhat country are you from?[place] Statespatient entered dataDo you feel physically and emotionally safe where you currently live?Yespatient entered dataIn the past year, have you been afraid of your partner or ex-partner?Nopatient entered dataPRAPARE Score:1Tobacco Control (Standard) Question Answer Notes Additional Findings: [...] W/U Status Risk Notes Problem Irritable bowel synd percy with diarrhea (247109584) Irritable bowel syndrome with diarrhea (K58.0) ActiveconfirmedProblemObese class I (751079485443185)BMI 33.0-33.9,adult (Z68.33)ActiveconfirmedProblemBMI 30+ - obesity (607472370)BMI 32.0-32.9,adult (Z68.32)ActiveconfirmedProblemBody mass index 30.00 to 34.99 (731021824047688) BMI 31.0-31.9,adult (Z68.31)ActiveconfirmedProblemVenereal disease screening (790699365)Screening for STD (sexually transmitted disease) (Z11.3)Active confirmedProblemIrritable bowel syndrome (58363464)IBS (irritable bowel syndrome) (K58.9)Activeconfirmed Comment:All labs H pylori Giardia and Entamobea negative, had a visit to [place] few months ago and symptoms of alternating diarrhea/constipation started after that. Has dyspeptic symptoms too PPI and Dicyclomine for now, if no improvement then Calprotectin and Elastase in stool as well as rule out of osmotic diarrhea by osmolar gap and check of fat stool for steatorrhea, ProblemObesity complicating (649.10) (649.10)Activeconfirmed Comment:Counseled about risks associated with obesity and including increased risk of gestational diabetes, gestational hypertention, pre-eclampsia, increased C/S rate, DVT, delivery, IUGR and IUFD secondary to TRESA, post- term gestation, increased risk of delivery related complications including shoulder dystocia . Patient advised to not gain more than 2-6 lbs in first trimester, TWG 11-20 lbs. 0.5lbs/wk in second and third trimester ., ProblemUrine test negative (288057774)Encounter for test with result negative (V72.41) (V72.41)ActiveconfirmedProblemDepression screening (435367918)Screening for depression (Z13.31)Activeconfirmed Description:Depression screenProblemRemoval of suture (49625428)Visit for suture removal (Z48.02)ActiveconfirmedComment:Sutures removed. Area cleansed with alcohol. Area was bandaged. Pt. advised to RTO for signs/ symptoms of infection including erythema, warmth, discharge from wound, fever or chills.,Problem Vyxqj-wvv-fddkc without malnutrition (068067917)Small for gestational age (764.00) (764.00)ActiveconfirmedProblemInsertion of intrauterine contraceptive device (69343112)Encounter for IUD insertion (Z30.430)Activeconfirmed Comment:uterus retroverted, speculum inserted, cervix swabbed with betadine, single toothed tenaculum applied to anterior lip of cervix, uterus sounded to 8 cm, IUD placed without difficulty, stringscut 2 cm from os, good hemostasis noted, pt tolerated procedure well.,ProblemCandida onychomycosis (B37.2)Active confirmedDescription:Candidiasis of nailsProblemUpper respiratory infection (07904702)URI (upper respiratory infection) (J06.9)Activeconfirmed Comment:alyssa faith observe. otc supp therapy. f/u if sxs got worse,Story:she had sore throat o the last t wo days.no f c n v. she took supportive therapu. wet to [facility] got some meds., ProblemUrinary tract infection in (990176335)UTI in (O23.40) ActiveconfirmedComment:pt on antibiotics,ProblemDiarrhea (65612067)Diarrhea (R19.7)ActiveconfirmedProblemMass of lower limb (454451016)Mass of right lower leg (R22.41)ActiveconfirmedProblemPoor weight gain of (646.80) (646.80)Activeconfirmed Comment:discussed increase po intake, insufficient weight gain can lead to SGA, IUGR. Monitor weight. will order growth ultrasound, ProblemGynecologic examination (05778527)Visit for gynecologic examination (Z01.419)Activeconfirmed Comment:last pap 10/01/2012 - neg, hpv neg encouraged self breast exams, ProblemInjury (501564927)Contusion of soft tissue (T14.8)Activeconfirmed Comment:REFER to Orthopedic surgery - In [place] on [address],ProblemNormal (54203203)SUPERVISION, OTHER NORMAL (V22.1) (V22.1)Active confirmedProblemDyspepsia (899171429)Dyspepsia (R10.13)ActiveconfirmedProblem Abnormal glucose tolerance in mother complicating , childbirth AND/OR puerperium (53823230)Abnormal glucose tolerance in mother complicating (648.80) (648.80)ActiveconfirmedComment:1 hr GTT - 165, 3 hr normal,Problem Contraceptive intrauterine device check (282361435)IUD check up (Z30.431)Active confirmedComment:strings trimmed as partner feels it during intercourse, discussed risks if trim too short of migration,ProblemAsymptomatic bacteriuria in (65454184)Asymptomatic bacteriuria in (O23.40)Active confirmedProblemBreast lump (44470584)Breast mass seen on mammogram (N63.0) ActiveconfirmedProblemDelivery normal (91770820)Delivery normal (O80)Active confirmed Comment: ended in chart. eds 09/21 had menses, has not resumed intercourse breast feeding desires ocp, ProblemPoor growth affecting management (054277654)Small for gestational age fetus affecting mother, antepartum (O36.5990)ActiveconfirmedProblemNormal (22900180)Encounter for supervision of normal (Z34.90)Active confirmed Comment:GC/CC neg, pap - nl taking [...] wks , male, 8lb2oz, 2010 , @ [facility]. PMH : obesity PSH: denies PGYN: denies Meds: PNV NKDA Sochx: neg x 3., ProblemIUGR - Intrauterine growth retardation (35831879)IUGR (intrauterine growth restriction) (764.90)Activeconfirmed Comment:US done 03/31/13 baby was 33.4 weeks 5lbs 12 oz, 4%ile, megha normal discussed findings with pt, started antepartum testing. Umbilical artery dopplers normal pt complaints of decreased movement, will induce today, ProblemOvarian cyst complicating , antepartum (O34.80)Activeconfirmed Comment:4.7x2.8x3.3 cm on right ovary,ProblemContraception care education (049342985)Family planning advice (Z30.09)Activeconfirmed Comment:pt late for depo window, preg test negative, received depo today discussed importance of compliance,Description:CONTRACEPTIVE COUNSELING NEC ProblemBreast lump (06338774)Left breast lump (611.72) (611.72)Activeconfirmed Comment:Instructed to use all medication as prescribed, obtain diagnostic mammogram, return after mammogram is preformed or sooner as needed is symptoms worsen or do not get better. Patient verbalizes and agrees with plan of care., ProblemOligohydramnios (64118118)Decreased amniotic fluid (O41.00X0)Active confirmed Comment:pt to go to hospital for IV fluid hydration, repeat megha 11.1. Pt to have repeat megha on following sunday 10.7, normal bladder. measuring S< D, will order growth and megha,Description:Oligohydramnios ProblemBreast lump (79917233)Breast mass in female (N63.0)Activeconfirmed Comment:left breast at 10-11 oclock - unchanged in size right breast at 12 oclock - uncahnged in size 2 masses seen on right, 1 mass on left , appear to be benign fibroadenomas, repeat bilateral breastultrasound in 6 months, scheduled this month, pt declines removal, desires to continue to monitor with self breast exams, ProblemCellulitis (030445055)Cellulitis and abscess (L03.90)Activeconfirmed ProblemCyst of graafian follicle (8110464)Cyst of Graafian follicle (N83.00) 05/26/2009Problem resolvedconfirmedDescription:Follicular cyst of ovaryProblem Acute streptococcal pharyngitis (7729801394)Acute streptococcal pharyngitis (J02.0)10/08/2009Problem resolvedconfirmedDescription:Streptococcal sore throat ProblemLeft lower quadrant pain (718936621)Abdominal pain, left lower quadrant (789.04) (789.04)05/13/2009Problem resolvedconfirmedProblemDysmenorrhea (415066252)Adolescent dysmenorrhea (N94.6)06/15/2008Problem resolvedconfirmed Description:DysmenorrheaProblemGeneral examination of patient (083360660)Routine general medical examination at a health care facility (V70.0) (V70.0)07/26/2007 Problem resolvedconfirmedProblemPolycystic bilateral ovaries (disorder) (658933502)Bilateral polycystic ovarian syndrome (E28.2)05/26/2009Problem resolvedconfirmedDescription:Polycystic ovariesProblemSinusitis, acute (461.) (461)05/13/2009Problem resolvedconfirmedProblemUrinary tract infectious disease (38131426)Infection of urinary tract (N39.0)11/01/2009Problem resolvedconfirmed Description:Urinary tract infectionProblemObesity (disorder) (418940294) Overweight and obesity (E66.3)11/01/2007Problem resolvedconfirmedProblemCyst of ovary (82115844)Cyst of ovary (N83.20)05/26/2009Problem resolvedconfirmed Description:Ovarian cyst Vital Signs Heart Rate 80 /min 03/27/2025 Blood pressure uvfvjjwdv72 mm Hg03/27/2025Height-cm162.56 cm03/27/2025Weight-kg 88 kg03/27/20252590Vojwfo99.00 in03/27/2025lood pressure jtlphyhp277 mm Hg 03/27/20253156Vdolcj847 lbs1MI33.3 kg/m203/27/2025 Encounters Encounter Location Date Provider Diagnosis [facility] [address] [place] [id number] 07/16/2024 Pako Mays BMI 32.0-32.9,adul t Z68.32 ; Dietary counseling Z71.3 ; Exercise counseling Z71.82 ; Encounter for screening for dental disorders Z13.84 and Encounter for dental examination and cleaning without abnormal findings Z01.20 [facility] [address] [place], [place] [phone] 09/02/2024 Pako Mays Encounter for dent al examination and cleaning without abnormal findings Z01.20 and Obesity, Class I, BMI 30-34.9 E66.811 [facility] [address] [place], [place] [id number] 03/27/2025 Najma Huang BMI 33.0-33.9,adul t Z68.33 and Encounter for dental examination and cleaning without abnormal findings Z01.20 Assessments Encounter Date Diagnosis (ICD Code) Assessment Notes Treatment Notes Treatment Clinical Notes Section Notes 07/16/2024 BMI 32.0-32.9,adult (ICD-10 - Z6 8.32) 09/02/2024Encounter for dental examination and cleaning without abnormal findings (ICD-10 - Z01.20)09/02/2024Obesity, Class I, BMI 30-34.9 (ICD-10 - E66.811)03/27/2025MI 33.0-33.9,adult (ICD-10 - Z68.33)03/27/2025Encounter for dental examination and cleaning without abnormal findings (ICD-10 - Z01.20) 07/16/2024Dietary counseling (ICD-10 - Z71.3)07/16/2024Exercise counseling (ICD- 10 - Z71.82)07/16/2024Encounter for screening for dental disorders (ICD-10 - Z13.84)07/16/2024Encounter for dental examination and cleaning without abnormal findings (ICD-10 - Z01.20) Plan Of Treatment Next Appt Details Provider Name:Najma Baker pernell, 10/02/2025 11:15:00 AM, [address] [place] [address], [phone], Insurance Providers Payer Name Payer Address Payer Phone Subscriber Number Group Number Insured Name Patient Relationship to Insured Coverage Start Date Coverage End Date D[facility] [address] [place] [address] [id number] Zac Mosqueda Spouse - patient is the spouse of the insured [facility] [address] [address] [place], [place] [id number], Gregpouse - patient is the spouse of the oezbsyk97/19/2022[facility] [address] [address] [place] [phone], JessicaSelf - patient is the [id number] 2025[facility]edic[facility] after AnthemPO [address] [place], [place] [id number], JessicaSelrony - patient is the insured 2025 Medical (General) History Medical History History ICD Code Abdominal pain, left lower quadrant (789 .04) Acute streptococcal pharyngitisAdolescent dysmenorrheaBilateral polycystic ovarian syndromeCyst of Graafian follicle, DESCRIPTION: Follicular cyst of ovary Cyst of ovaryInfection of urinary tractAsthmaOverweight and obesityRoutine general medical examination at a health care facility (V70.0)Sinusitis, acute (461.)Surgical History Surgery Date(Month/Year)
--- OUTSIDE RECORDS SUMMARY | 2025-04-14 11:55 | XMS_ITS | Encounter Summary ---
Author Organization [facility] Address [address] [place] [address] Care Team Providers Care Manpower Development Specialist Name Role Phone Unavailable Primary Care Provider Unavailabl e Encounter Details DateTypeDepartmentCare Team (Latest Contact Info)Yetrizemvzo34/14/2025amboo flowsheet NOMMyra [facility] [address] [place] [address] Deborah Kwan PA [address] [place] [address] [address] [place], [place] [address] Social History Tobacco UseTypesPacks/DayYears UsedDateSmoking Tobacco: Never Assessed Estimated Date of VwvnyaatLgonvmfoTgt17/11/2025Based on last menstrual period of 07/29/2024 (Exact Date)Sex and Gender InformationValueDate RecordedSex Assigned at JnrkyHqkpbv62/03/2024 9:38 AM ESTLegal KadQvxjkh16/15/2023 6:47 PM EDTGender SrnrigwyTitvvj25/03/2024 9:38 AM ESTSexual ScgwectzbydIneyizgb96/03/2024 9:38 AM ESTdocumented as of this encounter Plan of Treatment DateTypeDepartmentCare Team (Latest Contact Info)Eiisomfzazj48/28/2025 2:20 PM EDTRoutine [facility] Sanam [facility] [address] [place] [address] Deborah Kwan, PA [address] [place] [address] Dr Rodriguez, [facility] 06/15/2025 9:50 AM ESTPostpartum Visit [facility] Sanam [facility] [address] [place] [address] Scooby Alvarado DO [address] [place] [address] documented as of this encounter Visit Diagnoses Not on filedocumented in this encounter
--- OUTSIDE RECORDS SUMMARY | 2025-04-14 11:57 | XMS_ITS | CCD ---
Author Organization [facility] CliniSytn Care Team Providers Care Beef Pluck Trimmer Name Role Phone RENAY OTOOLE Attending Unavailable SYDNIE, RENAY Admitting Unavailable RENAY OTOOLE Consulting Unavailable MISC, DR GILBERT Primary Care Unavailable JENNY, DR YOUNG Admitting Unavailable JENNY, DR YOUNG Consulting Unavailable REQUEST, NONE LISTED Primary Care Unavaila ble JENNY, DR YOUNG Attending Unavailable JENNY, DR YOUNG Procedure Practitioner Unavailab le RENAY OTOOLE Admitting Unavailable SYDNIE, RENAY Consulting Unavailable RENAY OTOOEL Attending Unavailable MISC, DR GILBERT Primary Care [...] RENAY Attending Unavailable SYDNIE, RENAY Admitting Unavailable ZIEMILIANA, DR ANGELO Vaz Consulting Unavailable REQUEST, DR [...] Attending Unavailable SCOOBY ALVARADO Attending Unavailable DEBORAH KWAN Attending Unavailable SCOOBY ALVARADO Attending Unavailable DEBORAH KWAN Attending Unavailable AQUILES, DEBORAH Referring Unavailable DEBORAH KWAN Attending Unavailable JEM AMBROSIO Attending Unavailable DEBORAH KWAN Attending Unavailable Medications Current Medications MedicationDrug Class(es)DatesSig (Normalized)Sig (Original)Blood Glucose Monitoring Suppl (D-Care Glucometer) w/Device kit (20 sources)Start: 11-13-2024 End: 63-72-8542Vjofc Glucose Monitoring Suppl (D-Care Glucometer) w/Device kit Indications: Gestational diabetes mellitus (GDM), antepartum, gestational diabetes method of control unspecified ([facility]) , Elevated glucose tolerance test 1 kit Daily Use four times daily to check FSBS. In the morning prior to breakfast & 1 hour after each meal for a total of 4times daily. 1 kit 11/13/2024 11/13/2025 ActiveStart: 11-13-2024 End: 49-96-1967Padgy Glucose Monitoring Suppl (D-Care Glucometer) w/Device kit Indications: Gestational diabetes mellitus (GDM), antepartum, gestational diabetes method of control unspecified , Elevated glucose tolerance test 1 kit Daily Use four times daily to check FSBS. In the morning prior to breakfast & 1 hour after each meal for a total of 4times daily. 1 kit 11/13/2024 11/13/2025 ActiveEthinyl Estradiol / norgestimate (3 sources)Progestin, EstrogenStart: 15-79-2339mibn 1 tablet by mouth once daily norgestimate-ethinyl estradioL (ORTHO-CYCLEN) 0.25-35 mg-mcg per tablet Indications: Encounter for contraceptive management, unspecified type Take 1 tablet by mouth daily. 56 tablet 1 05/11/2020 Activeisopropyl alcohol 0.7 ml/ml medicated pad (20 sources)Start: 90-50-0072Lxvhbnv Swabs (Alcohol Prep Pad) 70 % pads Indications: Gestational diabetes mellitus (GDM), antepartum, gestational diabetes method of control unspecified ([facility]) , Elevated glucose tolerance testApply 1 Pad topically Daily Use four times daily to check FSBS. 150 each 3 11/13/2024 Activepolysaccharide iron complex 391 mg oral capsule (18 sources)Start: 21-87-7179iwrx 1 capsule by mouth once dailyProFe 391.3 (180 Fe) MG capsule Take 1 capsule by mouth Daily 02/04/2024 ActivePrenatal Djeyjmjp-Asr-Ef-FA ( 1 + IRON PO) (20 sources) Vbqltlvw-Upq-Ui-FA ( 1 + IRON PO) Take by mouth Active Problems Active Problems Problem ClassificationProblemDateDocumented DateEpisodic/ChronicAbdominal pain (1 source)Abdominal painOnset: 16-24-3982EsnjhbufDgsrqu of cervix (1 source)Low grade squamous intraepithelial lesion on cytologic smear of cervix (LGSIL); Translations: [LGSIL ON CYTOLOGIC SMEAR OF CERVIX]Onset: 11-11-2021 EpisodicDiabetes mellitus without complication (6 sources)Other abnormal glucose; Translations: [Abnormal glucose tolerance test]Onset: 48-91-1741YnkkffznWupcquix or abnormal glucose tolerance complicating ; childbirth; or the puerperium (8 sources)Gestational diabetes mellitus, class A>1<; Translations: [Gestational diabetes mellitus in , diet controlled]Onset: 429864-57-7761 EpisodicHemorrhage during ; abruptio placenta; placenta previa (1 source)Antepartum hemorrhage, unspecified, unspecified trimester; Translations: [Antepartum hemorrhage, unspecified, unspecified trimester]Onset: 97-08-7791IdfhxlduWjpurdbnfsmdo and screening for infectious disease (3 sources)Contact with and (suspected) exposure to other viral communicable diseases; Translations: [Patient encounter status]Onset: 07-09-2021 Resolved: 91-68-1522WtlvtbckMgdpuemsm disorders (6 sources)Secondary amenorrhea; Translations: [Missed period]Onset: 01-28-2021 ChronicOther complications of ; puerperium affecting management of mother (3 sources)Obesity complicating childbirth; Translations: [OBESITY COMPLICATING CHILDBIRTH]Onset: 54-42-4885DydfkppXrxvo complications of (4 sources)Anemia complicating , unspecified trimester; Translations: [ANEMIA COMP UNS TRIMESTER]Onset: 31-80-1350OszybakIvepz complications of (2 sources) size does not accord with dates; Translations: [Uterine size- date discrepancy, second trimester]75-16-7989BfkxlbaiAppbf female genital disorders (1 source)Vaginal bleedingOnset: 58-95-2514XqtsuztNsptg nutritional; endocrine; and metabolic disorders (1 source)Obesity, unspecified; Translations: [OBESITY UNSPECIFIED]Onset: 67-22-6404XpisgjoTjjnd and delivery including normal (20 sources)Encounter for routine follow-up; Translations: [Single live ]Onset: 08-62-1141CbkcutxjPwbxg screening for suspected conditions (not mental disorders or infectious disease) (14 sources)Encounter for screening for malignant neoplasm of cervix; Translations: [Encounter for screening, unspecified]Onset: 80-51-8952Qfuwoejr Residual codes; unclassified (1 source)High risk heterosexual behavior; Translations: [High risk heterosexual behavior]Onset: 84-06-3643IflylkobVwpwpywg codes; unclassified (2 sources)Gestation period, 15 weeks; Translations: [15 weeks gestation of ]01-50-2225SedkvyghYippsdse codes; unclassified (2 sources)Gestation period, 18 weeks; Translations: [18 weeks gestation of ]29-13-0910TfzhfyzoOufacyau codes; unclassified (2 sources)Gestation period, 22 weeks; Translations: [22 weeks gestation of ]59-11-0761AzklhdloIekfunka codes; unclassified (2 sources)Gestation period, 26 weeks; Translations: [26 weeks gestation of ]01-64-9796NoznydfcFdskiooh codes; unclassified (15 sources)Gestation period, 28 weeks; Translations: [28 weeks gestation of ]Onset: 105381-43-7475OkrwuzqrIcgkxszb codes; unclassified (2 sources)Gestation period, 32 weeks; Translations: [32 weeks gestation of ]41-55-1365IsuduilzRxfyzohp codes; unclassified (2 sources)Gestation period, 34 weeks; Translations: [34 weeks gestation of ]16-64-1652NfnugorhToyvscyc codes; unclassified (2 sources)Gestation period, 36 weeks; Translations: [36 weeks gestation of ]34-11-4822KvbxrhlmSlwmmtkdrht; intervertebral disc disorders; other back problems (1 source)BackacheOnset: 63-64-8609YuriefvzPufxgjljsljs (1 source)CONTACT W/AND (SUSP) EXPOS COVID-19; Translations: [CONTACT W/AND (SUSP) EXPOS COVID-19]Onset: 02-02-6434Llmbaxwlufbf (1 source)Vaginal Bleeding - 7wks pregOnset: 12-19-2023 Past or Other Problems Problem ClassificationProblemDateDocumented DateEpisodic/ChronicDeficiency and other anemia (1 source)Anemia, unspecified; Translations: [ANEMIA UNSPECIFIED]Onset: 56-91-2316GftiovdoQR-related trauma to perineum and vulva (1 source)Other specified trauma to perineum and vulva; Translations: [OTHER SPEC TRAUMA PERINEUM AND VULVA]Onset: 96-91-5939FvcxvfzaFbxyt complications of (1 source)Maternal care for other known or suspected poor growth, third trimester, not applicable or unspecified; Translations: [MAT CARE OTH MD FTL GRTH 3RD TM UNS]Onset: 62-84-6189NwctptpuHiohw complications of (4 sources)Decreased movements, third trimester, not applicable or unspecified; Translations: [DECR MOVEMENTS 3RD TRI NA/UNS]Onset: 97-42-7580RpspjohpGqddy complications of (4 sources)Supervision of other high risk pregnancies, third trimester; Translations: [SUP OTH HIGH RISK 3RD TRI]Onset: 29-35-1694Ffripfaf Other complications of (4 sources)Other specified related conditions, unspecified trimester; Translations: [OTH SPEC PREG RELATED COND UNS TRI]Onset: 02-09-5922XpivnakyBzxmw complications of (4 sources)Supervision of other high risk pregnancies, unspecified trimester; Translations: [SUP OTH HIGH RISKPREGNANCY UNS TRI]Onset: 83-14-0275MzyloazzAazvi female genital disorders (1 source)Other specified noninflammatory disorders of vagina; Translations: [OTH SPEC NONINFLAMMATORY D/O VAGINA]Onset: 87-95-9432XbzuiemxZnaov upper respiratory infections (2 sources)Acute upper respiratory infection, unspecified; Translations: [Acute pharyngitis, unspecified]Onset: 07-09-2021 Resolved: 67-14-7710PddwocnjPsvaftye codes; unclassified (1 source)39 weeks gestation of ; Translations: [39 WEEKS GESTATION OF ]Onset: 88-40-1686NhelpkicGdpnjhwa codes; unclassified (1 source)36 weeks gestation of ; Translations: [36 WEEKS GESTATION OF ]Onset: 38-22-5813GknzyfdwBggfxect codes; unclassified (1 source)34 weeks gestation of ; Translations: [34 WEEKS GESTATION OF ]Onset: 21-97-3159IuqwistqCbjwntas codes; unclassified (1 source)35 weeks gestation of ; Translations: [35 WEEKS GESTATION OF ]Onset: 07-75-5359LbaqswfdSwtceclf codes; unclassified (1 source)33 weeks gestation of ; Translations: [33 WEEKS GESTATION OF ]Onset: 87-89-8741AolmzcsaCvmzkaed codes; unclassified (1 source)Weeks of gestation of not specified; Translations: [WEEKS GESTATION NOT SPEC]Onset: 77-30-1487MdabadctNeybmrie codes; unclassified (1 source)24 weeks gestation of ; Translations: [24 WEEKS GESTATION OF ]Onset: 26-11-2018UdnsfqybLtqkweax codes; unclassified (4 sources)16 weeks gestation of ; Translations: [16 WEEKS GESTATION OF ]Onset: 97-84-1541DiscdpbtTiezjkglufp (4 sources)Complete or unspecified spontaneous without complication; Translations: [Miscarriage]Onset: 739405-06-9532Ajbwvfek Results Test NameValueInterpretationReference RangeFacilityUrinalysis macro (dipstick) panel (U)on 13-95-8531Grnkmzpmf, UANegativeNegative - 4(70) +++ mg/dLNOMS HealthcareBlood, UANegativeNegative - 50 Celestino/mcLNOMS HealthcareClarity, UAClear NOMS HealthcareColor, UAYellowNOMS HealthcareGlucose, UANegativeNegative - 2000(110) ++++ mg/dLNOMS HealthcareInterpretation and review of laboratory resultsNormalNOMS HealthcareKetones, UANegativeNegative - 160(16) ++++ mg/dLNOMS HealthcareLeukocytes, UANegativeNegative - 500+++ Dodie/mcLNOMS Healthcare Nitrite, UANegativeNegative - PositiveNOMS HealthcarepH, UA6.05 - 9NOMS HealthcareProtein, UANegativeNegative - 1999(20) ++++ mg/dLNOMS HealthcareSpec Grav, UA1.0101 - 1.03NOMS HealthcareUrobilinogen, UA0.20.2 - 12 mg/dLNOMS HealthcareNOMS HealthcareUS OB BPP W NON-STRESSon 47-85-0709[place]ls[place], [place] [address] Ultrasound Report Signed Patient: PARIS MOSQUEDA MR#: [id number] : 1990 Acct:[id number] Age/Sex: 34 / F ADM Date: 03/31/25 Loc: US Attending Dr: Jem Ambrosio Ordering Physician: Jem Ambrosio Date of Service: 03/31/25 Procedure(s): US OB BPP w non-stress Accession Number(s): [id number] cc: Jem Ambrosio; [place] [address] Patient Name: PARIS MOSQUEDA MRN: [id number] date: 1990 Sex: F Assigned Patient Location: [facility] Current Patient Location: Accession/Order Number: [id number] Exam Date: 03/31/2025 12:57 Report Date: 03/31/2025 17:44 At the request of: JEM AMBROSIO Procedure: US OB BPP w non-stress Ultrasound biophysical profile INDICATION: Gestational diabetes FINDINGS/ IMPRESSION: Cephalic position. 8/ 8 score biophysical profile. JEANNINE measures 7.9 cm which is borderline oligohydramnios. heart rate 152 beats per minutes. Impression dictated by: Nito Chong M.D. 03/31/2025 5:44 PM Dictation Location: [place] [address] Electronically authenticated by: [id number] Y Date: 03/31/2025 17:44 Dictated By: Nito Chong M.D. Signed By: 03/31/251746 DD/ 43 TD/TT: Shipwright Apprentice:TBHRadiology, Radiologist, - 03/31/2025 The [place] [id number] Ultrasound Report Signed Patient: PARIS MOSQUEDA MR#: [id number] : 1990 Acct:[id number] Age/Sex: 34 / F ADM Date: 03/31/25 Loc: US Attending Dr: Jem Ambrosio Ordering Physician: Jem Ambrosio Date of Service: 03/31/25 Procedure(s): US OB BPP w non-stress Accession Number(s): [id number] cc: Jem Ambrosio; [facility] The [place] [id number] Patient Name: PARIS MOSQUEDA MRN: [id number] date: 1990 Sex: F Assigned Patient Location: [facility] Current Patient Location: Accession/Order Number: [id number] Exam Date: 03/31/2025 12:57 Report Date: 03/31/2025 17:44 At the request of: JEM AMBROSIO Procedure: US OB BPP w non-stress Ultrasound biophysical profile INDICATION: Gestational diabetes FINDINGS/ IMPRESSION: Cephalic position. 8/ 8 score biophysical profile. JEANNINE measures 7.9 cm which is borderline oligohydramnios. heart rate 152 beats per minutes. Impression dictated by: Nito Chong M.D. 03/31/2025 5:44 PM Dictation Location: [place] [address] Electronically authenticated by: [id number] Y Date: 03/31/2025 17:44 Dictated By: Nito Chong M.D. Signed By: 03/31/251746 DD/ 43 TD/TT: Shipwright Apprentice: SHERLY HealthcareRadiology Study observation (narrative)SHERLY AntonioUS OB BPP W NON-STRESSOrdered By: Radiologist Radiology on 74-67-0549UDWX Healthcare Work Phone: Urinalysis macro (dipstick) panel (U)on 03-24-2025 Bilirubin, UANegativeNegative - 4(70) +++ mg/dLNOMS HealthcareBlood, UANegative Negative - 50 Celestino/mcLNOMS HealthcareClarity, UAClearNOMS HealthcareColor, UA YellowNOMS HealthcareGlucose, UANegativeNegative - 2000(110) ++++ mg/dLNOMS HealthcareInterpretation and review of laboratory resultsAbnormalASHLEY REGIONAL MEDICAL [facility]ENTER Healthcare Ketones, UANegativeNegative - 160(16) ++++ mg/dLNOMS HealthcareLeukocytes, UA TraceNegative - 500+++ Dodie/mcLNOMS HealthcareNitrite, UANegativeNegative - PositiveNOMS HealthcarepH, UA65 - 9NOMS HealthcareProtein, UATraceNegative - 2000(20) ++++ mg/dLNOMS HealthcareSpec Grav, UA1.021 - 1.03NOMS Healthcare Urobilinogen, UA2.00.2 - 12 mg/dLNOMS HealthcareNOMS HealthcareUrinalysis macro (dipstick) panel (U)on 97-18-4295Lscazjglz, UAPositiveNegative - 4(70) +++ mg/dL NOMS HealthcareBlood, UAPositiveNegative - 50 Celestino/mcLNOMS HealthcareClarity, UA ClearNOMS HealthcareColor, UAAmberNOMS HealthcareGlucose, UANegativeNegative - 2000(110) ++++ mg/dLNOMS HealthcareInterpretation and review of laboratory resultsAbnormalNOMT HealthcareKetones, UAPositiveNegative - 160(16) ++++ mg/dL NOMS HealthcareLeukocytes, UAPositiveNegative - 500+++ Dodie/[facility] Healthcare Nitrite, UANegativeNegative - PositiveNOMS HealthcarepH, UA65 - 9NOMT Healthcare Protein, UAPositiveNegative - 2000(20) ++++ mg/dLNOMS HealthcareSpec Grav, UA 1.031 - 1.03NOMS HealthcareUrobilinogen, UA1.00.2 - 12 mg/dLNOMS HealthcareNOMS HealthcareUS OB FOLLOW UP TRANSABDOMINAL APPROACHon 96-09-4225DX OB FOLLOW UP TRANSABDOMINAL APPROACHFINDINGS: A single, live intrauterine is present with [...] menstrual period. TRANSCRIBED BY: ELECTRONICALLY SIGNED BY: Sue SaavedraNot AvailableComment on above:Order Comment: US OB SCAN FOR GROWTH Estimated Date of Delivery: 05/05/25 Gestational Age as of 02/16/2025: 12u9xGFB CBC WITH AUTO DIFFon 02-13-2025 BASOPHILS ABSOLUTE JOIN0PLZS HealthcareBasophils/100 WBC (Bld)0.4 %0.2 - 2.0 % NOMS HealthcareEosinophils/100 WBC (Bld)1.5 %0.9 - 7.0 %NOMS Healthcare Erythrocyte distribution width (RBC) [Ratio]15 %11.0 - 15.0 %[facility] Hematocrit (Bld) [Volume fraction]33.1 %Low36.0 - 48.0 %[facility] Hemoglobin (Bld) [Mass/Vol]10.6 g/dLLow12.0 - 16.0 g/dLNOMS HealthcareIMMATURE GRANULOCYTES ABS AUTO0.05HighNOMS HealthcareImmature granulocytes/100 WBC (Bld) 0.5 %0.0 - 0.5 %NOMS HealthcareInterpretation and review of laboratory results AbnormalNOMS HealthcareLYMPHOCYTES ABSOLUTE ONUV7ZSVK HealthcareLymphocytes/100 WBC (Bld)31.1 %20.5 - 60.0 %NOMS [facility] CenterMCH (RBC) [Entitic mass]25.4 pgLow 26.7 - 34.0 pgParkland Health CenterHC (RBC) [Mass/Vol]32 g/dL29.9 - 35.2 g/dLParkland Health CenterV (RBC) [Entitic vol]79.2 fLLow81.0 - 99.0 fLPike County Memorial Hospital MONOCYTES ABSOLUTE AUTO0.8NOMT HealthcareMonocytes/100 WBC (Bld)8.4 %1.7 - 12.0 %[facility] HospitalNEUTROPHILS ABSOLUTE AUTO5.7NOMT HealthcareNeutrophils/100 WBC (Bld)58.1 %43.0 - 75.0 %[facility] HospitalPlatelet mean volume (Bld) [Entitic vol] 10 fL9.5 - 13.5 fLPike County Memorial HospitalTB EO #0.2NOMS HealthcareTB FRZ990RIQQI[facility] RBC4.18LowNOCoxHealthTB WBC9.7NOCoxHealthCLINISYNCNHARMON MEMORIAL [facility]ITAL [facility] HealthcareUrinalysis macro (dipstick) panel (U)on 64-02-6565Mtxiplvss, UA NegativeNegative - 4(70) +++ mg/dLNOMT HealthcareBlood, UANegativeNegative - 50 Celestino/mcLNOMT HealthcareClarity, UAClearNOMS HealthcareColor, UAYellowNOMT HealthcareGlucose, UANegativeNegative - 2000(110) ++++ mg/dLASHLEY REGIONAL MEDICAL [facility]ENTER Healthcare Interpretation and review of laboratory resultsAbnormalNOMT HealthcareKetones, UAPositiveNegative - 160(16) ++++ mg/dLNOMT HealthcareComment on above:Trace Leukocytes, UAPositiveNegative - 500+++ Dodie/mcLNOMT HealthcareComment on above: SmallNitrite, UANegativeNegative - PositiveNOMS HealthcarepH, UA65 - 9NOMS HealthcareProtein, UATraceNegative - 2000(20) ++++ mg/dLNOMT HealthcareSpec Grav, UA1.031 - 1.03NOMS HealthcareUrobilinogen, UA0.20.2 - 12 mg/dLNOMT HealthcareNOMT HealthcareUS OB LIMITED 1+ FETUSESon 10-13-4838ID OB LIMITED 1+ FETUSESFINDINGS: Single viable intrauterine , breech presentation with normal cardiac and activity, 15 0 bpm. Age appropriate, normal visualization of the left ventricular and right ventricular outflowtracts. IMPRESSION: Normal cardiac and outflow tract anatomy. TRANSCRIBED BY: ELECTRONICALLY SIGNED BY: Steven Saavedra AvailableComment on above:Order Comment: US OB INCOMPLETE ANATOMY Estimated Date of Delivery: 05/05/25 Gestational Age as of 12/30/2024: 80o5yAgovofmdag macro (dipstick) panel (U)on 45-97-3443Mzrqnhmka, UANegativeNegative - 4(70) +++ mg/dLNOMS HealthcareBlood, UANegativeNegative - 50 Celestino/mcLNOMS HealthcareClarity, UAClearNOMS Healthcare Color, UAYellowNOMS HealthcareGlucose, UANegativeNegative - 2000(110) ++++ mg/dL NOMS HealthcareInterpretation and review of laboratory resultsNormalNOMS HealthcareKetones, UANegativeNegative - 160(16) ++++ mg/dLNOMS Healthcare Leukocytes, UANegativeNegative - 500+++ Dodie/mcLNOMS HealthcareNitrite, UA NegativeNegative - PositiveNOMS HealthcarepH, UA75 - 9NOMS HealthcareProtein, UA TraceNegative - 2000(20) ++++ mg/dLNOMS HealthcareSpec Grav, UA1.0251 - 1.03NOMS HealthcareUrobilinogen, UA0.20.2 - 12 mg/dLNOMS HealthcareNOMS HealthcareNo Panel InformationOrdered By: Radiologist Radiology on 79-80-0846HNPMPike County Memorial Hospital Work Phone: No Panel Informationon 47-84-6446Vzddtigdx Study observation (narrative)NOMExcelsior [facility] Center OB ANATOMYon 69-30-0858AjgWil[place], [place] [address] Ultrasound Report Signed Patient: PARIS MOSQUEDA MR#: [id number] : 1990 Acct:[id number] Age/Sex: 34 / F ADM Date: 12/19/24 Loc: US Attending Dr: Scooby Alvarado D.O. Ordering Physician: Scooby Alvarado D.O. Date of Service: 12/19/24 Procedure(s): US OB anatomy Accession Number(s): [id number] cc: [facility] ; Scooby Alvarado D.O. [place] [id number] Patient Name: PARIS MOSQUEDA MRN: [id number] date: 1990 Sex: F Assigned Patient Location: Current Patient Location: Accession/Order Number: [id number] Exam Date: 12/19/2024 11:33 Report Date: 12/19/2024 [...] Evangelista M.D. 12/19/2024 11:39 AM Dictation Location: [place] [address] Electronically authenticated by: [id number] Y Date: 12/19/2024 11:39 Dictated By: Sarita Evangelista M.D. Signed By: 12/19/24 1142 DD/ 1139 TD/TT: Shipwright Apprentice:ROBERTadiologascencion, RadiologistMD - 12/19/2024 [place] [address] Ultrasound Report Signed Patient: PARIS MOSQUEDA MR#: [id number] : 1990 Acct:[id number] Age/Sex: 34 / F ADM Date: 12/19/24 Loc: US Attending Dr: Scooby Alvarado D.O. Ordering Physician: Scooby Alvarado D.O. Date of Service: 12/19/24 Procedure(s): US OB anatomy Accession Number(s): [id number] cc: [facility] ; Scooby Alvarado D.O. The [place] [id number] Patient Name: PARIS MOSQUEDA MRN: [id number] date: 1990 Sex: F Assigned Patient Location: US Current Patient Location: US Accession/Order Number: [id number] Exam Date: 12/19/2024 11:33 Report Date: 12/19/2024 [...] Evangelista M.D. 12/19/2024 11:39 AM Dictation Location: [place] [address] Electronically authenticated by: [id number] Y Date: 12/19/2024 11:39 Dictated By: Sarita Evangelista M.D. Signed By: 12/19/24 1142 DD/ 1139 TD/TT: Shipwright Apprentice: SHERLY Interiano OB CERVICAL LENGTHon 58-39-9722VyeWilmar, [place] [address] Ultrasound Report Signed Patient: PARIS MOSQUEDA MR#: [id number] : 1990 Acct:[id number] Age/Sex: 34 / F ADM Date: 12/19/24 Loc: US Attending Dr: Scooby Alvarado D.O. Ordering Physician: Scooby Alvarado D.O. Date of Service: 12/19/24 Procedure(s): US OB cervical length Accession Number(s): [id number] cc: [facility] ; Scooby Alvarado D.O. The [address] [address] Patient Name: PARIS MOSQUEDA MRN: [id number] date: 1990 Sex: F Assigned Patient Location: US Current Patient Location: US Accession/Order Number: [id number] Exam Date: 12/19/2024 11:33 Report Date: 12/19/2024 [...] Evangelista M.D. 12/19/2024 11:39 AM Dictation Location: [place] [address] Electronically authenticated by: [id number] Y Date: 12/19/2024 11:39 Dictated By: Sarita Evangelista M.D. Signed By: 12/19/24 1142 DD/ 1139 TD/TT: Shipwright Apprentice:TBHRadiology, Radiologist, - 12/19/2024 [place] [address] Ultrasound Report Signed Patient: PARIS MOSQUEDA MR#: [id number] : 1990 Acct:[id number] Age/Sex: 34 / F ADM Date: 12/19/24 Loc: US Attending Dr: Scooby Alvarado D.O. Ordering Physician: Scooby Alvarado D.O. Date of Service: 12/19/24 Procedure(s): US OB cervical length Accession Number(s): [id number] cc: [facility] ; Scooby Alvarado D.O. [place] [id number] Patient Name: PARIS MOSQUEDA MRN: [id number] date: 1990 Sex: F Assigned Patient Location: US Current Patient Location: US Accession/Order Number: [id number] Exam Date: 12/19/2024 11:33 Report Date: 12/19/2024 [...] Evangelista M.D. 12/19/2024 11:39 AM Dictation Location: [place] [address] Electronically authenticated by: [id number] Y Date: 12/19/2024 11:39 Dictated By: Sarita Evangelista M.D. Signed By: 12/19/24 1142 DD/ 1139 TD/TT: Shipwright Apprentice: MARJORIE Andrew HPV,AGE GDLNon 62-55-6778JII GDLN ACOG TESTINGNote. SHERLY AntonioComment on above:TESTS RESULT FLAG UNITS REF RANGE LAB Clinician Provided Cytology Information Source.............Vagina Other.............. No. of containers..01 ThinPrep Vial Age Algo ACOG Karine... 30-65 01 FLAG LEGEND: L-Low Normal,H-High Normal,LL-Alert Low,HH-Alert High <-Panic Low,>-Panic High,A-Abnormal,AA-Critical Abnormal Performed at: 01 =[facility] [address] [place], [place] [address] Cindy Pinzon MD, HPV APTIMANegativeNegativeNOMS HealthcareComment on above:This nucleic acid amplification test detects fourteen high- risk HPV types (16,18,31,33,35,39,45,51,52,56,58,59,66,68) without differentiation. Performed at: =[facility], [place] [id number] Superintendent Terminal: Cindy Pinzon MD, Phone: [phone] Performed at: [address], [place] [id number] Superintendent Terminal: Cindy Pinzon MD, Phone: [phone] IGP, APTIMA HPV, RFX 16/18,45Note.NOMS HealthcareComment on above:TESTS RESULT FLAG UNITS REF RANGE LAB DIAGNOSIS: 02 NEGATIVE FOR INTRAEPITHELIAL LESION OR MALIGNANCY. Specimen adequacy: 02 Satisfactory for evaluation. No endocervical component is identified. Performed by: Aniket Dela Cruz, Cinder Pitman (ASCP) . 02 Note: Note 02 The [...] Low,>-Panic High,A-Abnormal,AA-Critical Abnormal Performed at: [address] [facility] [address] Cindy Pinzon MD, SPATULA-ALONE VAGINA CLINISYNCNOMS HealthcareRECURRENT VAGINITIS (HTRX)on 28-52-4054CIBFTHSSV VAGINAE 0NOMS HealthcareATOPOBIUM VAGINAENot detectedNOMS HealthcareBVAB 2,3 (BACTERIAL VAGINOSIS ASSOCIATED BACTERIA 2, 3); MOBILUNCUS [id number] HealthcareBVAB 2,3 (BACTERIAL VAGINOSIS ASSOCIATED BACTERIA 2, 3); MOBILUNCUS SPPNot detectedNOMS HealthcareCANDIDA ALBICANS, PARAPSILOSIS, [id number] HealthcareCANDIDA ALBICANS, PARAPSILOSIS, TROPICALISNot detectedNOMS HealthcareCANDIDA GLABRATA0 NOMS HealthcareCANDIDA GLABRATANot detectedNOMS HealthcareCANDIDA EGMLVU4ZNUA HealthcareCANDIDA KRUSEINot detectedNOMS HealthcareCHLAMYDIA ERQGGCGNRJW7VQGP HealthcareCHLAMYDIA TRACHOMATISNot detectedNOMS HealthcareGARDNERELLA VAGINALIS0 NOMS HealthcareGARDNERELLA VAGINALISNot detectedNOMS HealthcareMEGASPHAERA (TYPES 1, 2)0NOMS HealthcareMEGASPHAERA (TYPES 1, 2)Not detectedNOMS Healthcare MYCOPLASMA MFXVTKPWAI5JQHQ HealthcareMYCOPLASMA GENITALIUMNot detectedNOMS HealthcareNEISSERIA ACJQUHOAEZZ8VKDB HealthcareNEISSERIA GONORRHOEAENot detected NOMS HealthcareTRICHOMONAS [id number] HealthcareTRICHOMONAS VAGINALISNot detectedNOMS HealthcareNOMS HealthcareUrinalysis macro (dipstick) panel (U)on 19-41-2810Chisxatkz, UANegativeNegative - 4(70) +++ mg/dLNOMS HealthcareBlood, UANegativeNegative - 50 Celestino/mcLNOMS HealthcareClarity, UAClearNOMS Healthcare Color, UAYellowNOMS HealthcareGlucose, UANegativeNegative - 2000(110) ++++ mg/dL NOMS HealthcareInterpretation and review of laboratory resultsNormalNOMS HealthcareKetones, UANegativeNegative - 160(16) ++++ mg/dLNOMS Healthcare Leukocytes, UAPositiveNegative - 500+++ Dodie/mcLNOMS HealthcareComment on above: smallNitrite, UANegativeNegative - PositiveNOMS HealthcarepH, UA75 - 9NOMS HealthcareProtein, UANegativeNegative - 2000(20) ++++ mg/dLNOMS HealthcareSpec Grav, UA1.0151 - 1.03NOMS HealthcareUrobilinogen, UA0.20.2 - 12 mg/dLNOMS HealthcareNOMS HealthcareGlucose random or fasting- POCTOrdered By: James Rader on 63-24-8185Ulwpxzbw Glucose Fasting Or Random (Fbs)94[facility] SystemCoshocton Regional Medical CenterUrinalysis macro (dipstick) panel (U)on 11-13-2024 Bilirubin, UANegativeNegative - 4(70) +++ mg/dLNOMS HealthcareBlood, UANegative Negative - 50 Celestino/mcLNOMS HealthcareClarity, UAClearNOMS HealthcareColor, UA YellowNOMS HealthcareGlucose, UANegativeNegative - 1999(110) ++++ mg/dLNOMS HealthcareInterpretation and review of laboratory resultsAbnormMercy Health Defiance Hospital Healthcare Ketones, UANegativeNegative - 160(16) ++++ mg/dLNOMS HealthcareLeukocytes, UA TraceNegative - 500+++ Dodie/mcLNOMS HealthcareNitrite, UANegativeNegative - PositiveNOMS HealthcarepH, UA65 - 9NOMS HealthcareProtein, UANegativeNegative - 2000(20) ++++ mg/dLNOMS HealthcareSpec Grav, UA1.011 - 1.03NOMS Healthcare Urobilinogen, UA0.20.2 - 12 mg/dLNOMS HealthcareNOMS HealthcareBOX TESTon 10-63-2421AMB TEST SENT OUTunUC Medical Center KuxzqtbrnwXDB8kzyvlLFEN HealthcareBOX2 11/11/24NOMT HealthcareUNITY BOX CLINISYNCASHLEY [facility] HealthcareHCG ( test) Ql (U)on 75-66-1347Yijqprzrphvqxa and review of laboratory resultsAbnormalNOMS HealthcarePreg Test, UrPositive NegativeNOMS HealthcareNOMS HealthcareUS OB TRANSVAGINALon 36-42-9920XA OB TRANSVAGINALEXAM: US OB TRANSVAGINAL HISTORY: Dating. A1. LMP [...] to a gestational age of 10 weeks 6days (+/- 7 days). There is no subchorionic hemorrhage visualized. A yolk sac is visualized. IMPRESSION: 1. Single, live intrauterine gestation 11 weeks, 2 days by LMP. Today's ultrasound measurements correlate with a gestational age of 10 weeks 6 days (+/- 7 days). FAHEEM by today's ultrasound is 2024. 2. Small amount of cul-de-sac fluid. Interpreted by: Electronically signed by EKATERINA CARROLL II, MD, PHD at 16-Oct-2024 11:21:08 PM [facility] TeleradiologyNormalNot AvailableComment on above:Order Comment: US OB TRANSVAGINAL No LMP recorded.US Pelvis transvaginalon 25-40-9869YQJZ: US OB TRANSVAGINAL HISTORY: Dating. A1. LMP [...] to a gestational age of 10 weeks 6days (+/- 7 days). There is no subchorionic hemorrhage visualized. A yolk sac is visualized. IMPRESSION: 1. Single, live intrauterine gestation 11 weeks, 2 days by LMP. Today's ultrasound measurements correlate with a gestational age of 10 weeks 6 days (+/- 7 days). FAHEEM by today's ultrasound is 2024. 2. Small amount of cul-de-sac fluid. Interpreted by: Electronically signed by EKATERINA CARROLL II, MD, PHD at 16-Oct-2024 11:21:08 PM [facility] Teleradiology IMAGINGSluss, MD Ekaterina - 10/16/2024 EXAM: US OB TRANSVAGINAL HISTORY: [...] to a gestational age of 10 weeks 6days (+/- 7 days). There is no subchorionic hemorrhage visualized. A yolk sac is visualized. IMPRESSION: 1. Single, live intrauterine gestation 11 weeks, 2 days by LMP. Today's ultrasound measurements correlate with a gestational age of 10 weeks 6 days (+/- 7 days). FAHEEM by today's ultrasound is 2024. 2. Small amount of cul-de-sac fluid. Interpreted by: Electronically signed by EKATERINA CARROLL II, MD, PHD at 16-Oct-2024 11:21:08 PM [facility] HealthcareRadiology Study observation (narrative)NOMS HealthcareUS Pelvis transvaginalOrdered By: Ekaterina Carroll on 70-94-0946HXDV Healthcare Work Phone: Urinalysis macro (dipstick) panel (U)on 10-16-2024 Bilirubin, UANegativeNegative - 4(70) +++ mg/dLNOMS HealthcareBlood, UANegative Negative - 50 Celestino/mcLNOMS HealthcareClarity, UAClearNOMS HealthcareColor, UA YellowNOMS HealthcareGlucose, UANegativeNegative - 2000(110) ++++ mg/dLNOMS HealthcareInterpretation and review of laboratory resultsAbnormalNOMS Healthcare Ketones, UAPositiveNegative - 160(16) ++++ mg/dLNOMS HealthcareComment on above: 80mg/dLLeukocytes, UAPositiveNegative - 500+++ Dodie/mcLNOMS HealthcareComment on above:smallNitrite, UANegativeNegative - PositiveNOMS HealthcarepH, UA5.55 - 9 NOMS HealthcareProtein, UAPositiveNegative - 2000(20) ++++ mg/dLNOMS Healthcare Comment on above:30mg/dLSpec Grav, UA1.031 - 1.03NOMS HealthcareUrobilinogen, UA 0.20.2 - 12 mg/dLNOMS HealthcareNOMS HealthcareHGB AND HCTon 12-21-2023 Hematocrit (Bld) [Volume fraction]28.7 %Mbx88-01FyoBunaegKnox Community Hospital Comment on above:Performed By: #### HH #### [facility] ([id number]) [address] [place] [address], [address] [place]LO[address] [place], [place] [address]Fifogtbhet (Bld) [Mass/Vol]9.8 g/dLLow11.7-15.5[facility], Memorial CampusComment on above:Performed By: #### HH #### [facility] ([id number]) [address] [address], [address] [place], [place] [address]Acmltfhz Pathologyon 57-25-6279Fzmqgcuv PathologyNormal Knox Community HospitalComment on above:Result Comment: [facility] [address] [place] [address] Surgical Pathology Consultation Patient Name:SYDNIE MOSQUEDAB:1990 (Age: 33)Gender:FTaken:12/21/2023eported:12/28/2023hysician(s):Cody Desai MD ([phone])Copy To: Rec. #:[id number]: #[id number] Final Pathologic Diagnosis Products of conception; removal: Products of conception (gestational sac with immature chorionic villi) and fragments of decidua with acute inflammation and necrosis. Report Electronically Signed Out wacha/12/28/2023Pradeep Brannon MD Interpretation performed at [facility], [address] [place] [address], License number: [id number]. Clinical History Spontaneous , miscarriage. Gross Description Received in formalin labeled PANDA Karyotype: No Aggregate measurement: 5.2 x 3.8 x 2.0 cm. Placenta: 3.4 x 2.8 x 1.5 cm Decidua/Clot: 1.8 x 1.0 x 0.5 cm Gestational Sac: Yes, intact Tissue: No Molar Tissue: No Cassettes: A-C placenta (3, ss, [id number],m5) DM Received fresh-no site on container. POC for routine surgical path. Per Ariana pierson/12/21/2023GR Specimen(s) Received Products of conception Fee Codes(s): 1; 56152DP PREG LESS THAN 14 WKS WITH TRANSVAGINALon 04-26-8509RY PREG LESS THAN 14 WKS WITH TRANSVAGINALUS PREG LESS THAN 14 WKS WITH TRANSVAGINAL [...] x 6.2 cm. Endometrial echo complex appears heterogeneousand measures up to 2.6. No color-flow is demonstrated within the endometrial contents. Apparent irregular gestational sac within the endometrial canal on the prior exam is not demonstrated today. No gestational sac is visualized therefore no pole, yolk sac, heart rate, amniotic fluid, gestational sac shape, or placenta is demonstrated. Right paraovarian cysts similar to prior exam measuringup to about 2 cm. Tiny amount of [...] flow to suggest retained products of conception. Finalized by Isamar Monroy MD on 12/21/2023 8:46 AMNormalProChildren'S Medical Center DallasBASIC METABOLIC PANLon 74-26-1504Yqwqd gap [Moles/Vol]6 mmol/LNormal5-15 ProMedicPalo Verde HospitalComment on above:Performed By: #### CHETAN HERNADEZ, #### [facility] ([id number]) [address] [place] [address]Lgadwft [Mass/Vol]8.9 mg/dLNormal8.5-10.5[facility], Memorial CampusComment on above:Performed By: #### CHETAN HERNADEZ, #### [facility] ([id number]) [address] [place] [address] 52367Ecpohprv [Moles/Vol]105 mmol/VTglqth17-402PomJchcxgChildren'S Medical Center DallasComment on above:Performed By: #### CHETAN HERNADEZ, #### [facility] ([id number]) [address] [place] [address] 84351XG7 [Moles/Vol]24 mmol/PJcpkiz73-75FwlYlcaunCleveland Clinic Lutheran Hospital Comment on above:Performed By: #### CHETAN HERNADEZ, #### [facility] ([id number]) [address] [place] [address], [place] [address]Lmxqcjtcvk [Mass/Vol]0.74 mg/dLNormal0.40-1.00Kn[facility] Community HospitalComment on above:Result Comment: METHOD TRACEABLE TO IDMS STANDARD Performed By: #### CHETAN HERNADEZ, #### [facility] ([id number]) [address] [place] [address] 20228tCOS (CKD-EPI) NON-RACE DEPENDENT>90Normal>59ProChildren'S Medical Center DallasComment on above:Result Comment: Reported eGFR is based on the CKD-EPI 2020 equation that does not use a race coefficient.Performed By: #### CHETAN HERNADEZ, #### [facility] ([id number]) [address] [place] [address], [place] [address]Bqdfpir [Mass/Vol]149 mg/bZAews09-40GcjUosizzKnox Community Hospital Comment on above:Performed By: #### CHETAN HERNADEZ, #### [facility] ([id number]) [address] [place] [address] 60972Begrgixqi [Moles/Vol]3.6 mmol/LNormal3.5-5.0Kn[facility] Community HospitalComment on above:Performed By: #### CHETAN HERNADEZ, #### [facility] ([id number]) [address] [place] [address], [place] [address]Raauvp [Moles/Vol]135 mmol/ABixxqs893-079YkqPnlvkz [facility]remont HospitalComment on above:Performed By: #### ROXIE HERNADEZA, #### [facility] ([id number]) [address] [place] [address] 86[address]Vqiv nitrogen [Mass/Vol]10 mg/dLNormal5-23Kn[facility] Community HospitalComment on above:Performed By: #### MARICARMEN CBCA, #### [facility] ([id number]) [address] [place] [address] 322[address]LUH AND AUTO DIFFon 03-40-5236SHRSICNE BASOPHIL0.0 X10E9/L Normal0.0-0.2ProMedGardens Regional Hospital & Medical Center - Hawaiian GardensComment on above:Performed By: #### MARICARMEN CBCA, #### [facility] ([id number]) [address] [place] [address] 32289BFKPFIOE NEUTROPHIL4.9 X10E9/LNormal1.5-6.6ProChildren'S Medical Center DallasComment on above:Performed By: #### MARICARMEN CBCA, #### [facility] ([id number]) [address] [place] [address] 51331Xydutyees/100 WBC (Bld)0.4 %[facility] Comment on above:Performed By: #### MARICARMEN CBCA, #### [facility] ([id number]) [address] [place] [address] 436[address]Iypjuoeauoh (Bld) [#/Vol]0.3 10*3/uLNormal0.0-0.4Kn[facility] Community HospitalComment on above:Performed By: #### MARICARMEN, CBCA, #### [facility] ([id number]) [address] [place] [address] 50920Ryamkzzvjut/100 WBC (Bld)2.3 %[facility] Comment on above:Performed By: #### CHETAN HERNADEZ, #### [facility] ([id number]) [address] [place] [address] 832[address]Elvlpsxogyc distribution width (RBC) [Ratio]13.8 %Normal 11.5-15.0Knox Community HospitalComment on above:Performed By: #### CHETAN HERNADEZ, #### [facility] ([id number]) [address] [place] [address] 72457Ulwwacupyn (Bld) [Volume fraction]34.8 %Smc17-36SerWnlwaaChildren'S Medical Center DallasComment on above:Performed By: #### CHETAN HERNADEZ, #### [facility] ([id number]) [address] [place] [address] 60569Zoxomovkgg (Bld) [Mass/Vol]11.5 g/dLLow11.7-15.5PCleveland Clinic Lutheran HospitalComment on above:Performed By: #### CHETAN HERNADEZ, #### [facility] ([id number]) [address] [place] [address] 50068Rgkhlpikiak (Bld) [#/Vol]4.6 10*3/uLHigh1.0-3.5PCleveland Clinic Lutheran HospitalComment on above:Performed By: #### CHETAN HERNADEZ, #### [facility] ([id number]) [address] [place] [address] 91078Lwiihlhenen/100 WBC (Bld)41.7 %NormalKnox Community Hospital Comment on above:Performed By: #### MARICARMEN CBCPaco, #### [facility] ([id number]) [address] [place] [address] 73125ITD (RBC) [Entitic mass]27.8 fzSuydyz63-88WsuFzeqcmChildren'S Medical Center DallasComment on above:Performed By: #### CHETAN HERNADEZ, #### [facility] ([id number]) [address] [place] [address] 34073KMXZ (RBC) [Mass/Vol]33.0 g/lFVmjosd23-71WudZqgpioKnox Community HospitalComment on above:Performed By: #### MARICARMEN, CBCA, #### [facility] ([id number]) [address] [place] [address] 80242FQE (RBC) [Entitic vol]84 lDLjyrvt17-024GaeYzbztg [facility]ont HospitalComment on above:Performed By: #### MARICARMEN, CBCA, #### [facility] ([id number]) [address] [place] [address] 00824Vuvurgbsl (Bld) [#/Vol]1.2 10*3/uLHigh0-0.9Knox Community HospitalComment on above:Performed By: #### MARICARMEN, CBCA, #### [facility] ([id number]) [address] [place] [address] 28684Inorszvvw/100 WBC (Bld)11.1 %[facility] Comment on above:Performed By: #### MARICARMEN, CBCA, #### [facility] ([id number]) [address] [place] [address] 98437Mqbufksfmcs/100 WBC (Bld)44.5 %[facility] Comment on above:Performed By: #### BMP, CBCA, #### [facility] ([id number]) [address] [place] [address] 88682Kmwrgvyl mean volume (Bld) [Entitic vol]7.6 fLNormal7-12 ProMHemet Global Medical CenterComment on above:Performed By: #### BMP, CBCA, #### [facility] ([id number]) [address] [place] [address] 91334Qsfexhwfm (Bld) [#/Vol]323 10*3/yWImvjui274-714DubYnwnsc [facility]ont HospitalComment on above:Performed By: #### CHETAN HERNADEZ, #### [facility] ([id number]) [address] [place] [address] 65855VBF COUNT4.12 X10E12/LNormal3.80-5.20[facility] Comment on above:Performed By: #### CHETAN HERNADEZ, #### [facility] ([id number]) [address] [place] [address] 58977LZP (Bld) [#/Vol]11.0 10*3/uLNormal4.0-11.0ProChildren'S Medical Center DallasComment on above:Performed By: #### CHETAN HERNADEZ, #### [facility] ([id number]) [address] [place] [address] 89588QQU.beta subunit IA 3rd IS Qnon 07-50-9679OAK.beta subunit Qn 5361 m[IU]/mLNormalProChildren'S Medical Center DallasComment on above:Result Comment: NEW REFERENCE RANGE WEEKS (SINCE LMP) [...] trophoblastic or nontrophoblastic neoplasms. Performed By: #### BMP, CBCA, 55377-7 #### [facility] ([id number]) [address] [place] [address] 00489KSQ ( test) Ql (U)on 11-73-3581Dwez HCG ( test) Ql (U)PositiveAbnormalNEGProChildren'S Medical Center DallasComment on above: Performed By: #### 2106-3 #### [facility] ([id number]) [address] [place] [address] 28181BEK.beta subunit IA 3rd IS Qnon 50-01-3580WAP.beta subunit Qn 6620 m[IU]/mLNormalProChildren'S Medical Center DallasComment on above:Result Comment: NEW REFERENCE RANGE WEEKS (SINCE LMP) [...] trophoblastic or nontrophoblastic neoplasms. Performed By: #### 18931-9 #### [facility] ([id number]) [address] [place] [address] 22365GRT MACROSCOPIC NURon 08-25-5534DBVLFAGTI NURSmallAbnormalNEG [facility], Memorial CampusComment on above:Performed By: #### NUM #### [facility] ([id number]) [address] [place] [address] 34836WLWKA/HGB NURLargeAbnormalNEGProChildren'S Medical Center DallasComment on above:Performed By: #### NUM #### [facility] ([id number]) [address] [place] [address] 23839ZTFKYBP NURNegativeNormalNEGKnox Community HospitalComment on above:Performed By: #### NUM #### [facility] ([id number]) [address] [place] [address] 29028JHHIYWV NURTraceAbnormalNEGProChildren'S Medical Center DallasComment on above:Performed By: #### NUM #### [facility] ([id number]) [address] [place] [address] 19099KZURQPKKC ESTERASE NURNegativeNormalNEGKnox Community HospitalComment on above:Performed By: #### NUM #### [facility] ([id number]) [address] [place] [address] 61538QFPUWAY NURNegativeNormalNEGKnox Community HospitalComment on above:Performed By: #### NUM #### [facility] ([id number]) [address] [place] [address] 24602MK NUR6.8Qcfbvr0.0-8.5Pro[facility], Memorial CampusComment on above:Performed By: #### NUM #### [facility] ([id number]) [address] [place] [address] 01287TBEEUOU KFT172 mg/dLAbnormalNEGProChildren'S Medical Center Dallas Comment on above:Performed By: #### NUM #### [facility] ([id number]) [address] [place] [address] 06275DTTJIVTG GRAVITY NIKITA>=1.705Elrbvs1.003-1.035ProChildren'S Medical Center DallasComment on above:Performed By: #### NUM #### [facility] ([id number]) [address] [place] [address] [place] [address]MIZXGQKOKJLQ NUR1.0 eu/dLNormal<1.1PCleveland Clinic [facility] Hospital Comment on above:Performed By: #### NUM #### [facility] ([id number]) [address], [place], [place] [address]OR PREG LESS THAN 14 WKS WITH TRANSVAGINALon 41-44-8758ZI PREG LESS THAN 14 WKS WITH TRANSVAGINALUS PREG LESS THAN 14 WKS WITH TRANSVAGINAL [...] is recommended for definitive assessment of viability Finalized by Olvin Overton MD on 12/19/2023 6:46 PMNormalProMedica Centinela Freeman Regional Medical Center, Memorial CampusChlamydia/GC/Trich NAAon 15-64-4034Mbxvixvpb Trachomotis, NAANegative NormalNegativeMercy Health St. Elizabeth Youngstown HospitalComment on above:Performed By: #### CUU #### [facility] [address] #### GCCHLAMTRI #### [facility] ,Neisseria Gonorrhoeae, NAANegativeNormalNegativeMercy Health St. Elizabeth Youngstown HospitalComment on above:Performed By: #### CUU #### [facility] [address] [place] [address] #### GCCHLAMTRI #### [facility] ,Trichomonas NAANegativeNormalNegCincinnati VA Medical CenterComment on above:Result Comment: Performed at: = - [facility] [id number] Superintendent Terminal: Cindy Pinzon MD, Phone: [phone] PERFORMED BY: [place] [address] PATHOLOGIST FURNITURE MAKER BROOKLYNN PEARCE M.D.Performed By: #### CUU #### [facility] [address] [place] [address] #### GCCHLAMTRI #### [facility] ,Urine Cultureon 13-57-4274Ixleuymf identified Cx Nom (U)30,000 colonies/ml mixed bacterial skin contaminants 2 Days PERFORMED BY: [place] [address] PATHOLOGIST FURNITURE MAKER BROOKLYNN PEARCE M.D.[facility] Samaritan HospitalComment on above: Performed By: #### CUU #### [facility] [address] [place] [address] #### GCCHLAMTRI #### [facility] ,Pap IG,rfx Aptima HPV all pthon 11-16-2021..[facility] Medical CenterComment on above:Performed By: #### HIV12 #### [facility] [address] [place] [address] Andriy KarenDIAGNOSIS:CommentNormBrown Memorial HospitalComment on above:Result Comment: NEGATIVE FOR INTRAEPITHELIAL LESION OR MALIGNANCY. THIS SPECIMEN WAS RESCREENED PART OF OUR WEB PROJECT MANAGER PROGRAM.Performed By: #### HIV12 #### [facility] [address] [place] [address] Andriy KarenMethodology:CommentMagruder Memorial Hospital on above: Result Comment: This liquid based ThinPrep(R) pap test was screened with the use of an image guided system.Performed By: #### HIV12 #### [facility] [address] [place] [address] Andriy KarenNote:KimberleyMagruder Memorial Hospital on above:Result Comment: The Pap smear is a screening test designed to aid in the detection of premalignant and malignant conditions of the uterine cervix. It is not a diagnostic procedure and should not be used as the sole means of detecting cervical cancer. Both false-positive and false-negative reports do occur. .Performed By: #### HIV12 #### [facility] [address] [place] [address] Andriy KarenPerformed by:[facility] on above: Result Comment: Yanni Dela Cruz, Office Machine Punch Operator (ASCP)Performed By: #### HIV12 #### [facility] [address] [place] [address] Andriy KarenQC reviewed by:[facility] on above: Result Comment: Summer Motley, Supervisory Office Machine Punch Operator (ASCP)Performed By: #### HIV12 #### [facility] [address] [place] [address] Andriy KarenReflex Criteria:[facility] on above: Result Comment: The HPV DNA reflex criteria were not met with this specimen result therefore, no HPV testing was performed. .Performed By: #### HIV12 #### [facility] [address] [place] [address] Andriy KarenSpecimen adequacy:[facility] on above:Result Comment: Satisfactory for evaluation. Endocervical and/or squamous metaplastic cells (endocervical component) are present.Performed By: #### HIV12 #### [facility] [address] [place] [address] Andriy KarenCBC AUTO DIFFon 51-13-2589UFTI #0.0 103/ulNormal0.0-0.1The [facility]'S Medical CenterComment on above:Performed By: #### HIV12 #### [facility] [address] [place] [address] Andriy KarenBasophils/100 WBC (Bld)0.2 %Normal0.2-2.0[facility] Comment on above:Performed By: #### HIV12 #### [facility] [address] [place] [address] Andriy KarenEO #0.2 103/ulNormal0.0-0.7The [facility]'S Medical CenterComment on above: Performed By: #### HIV12 #### [facility] [address] [place] [address] Andriy KarenEosinophils/100 WBC (Bld)1.4 %Normal0.9-7.0[facility] Comment on above:Performed By: #### HIV12 #### [facility] [address] [place] [address] Andriy KarenErythrocyte distribution width (RBC) [Ratio]16.9 %Critically high 11.0-15.0The [facility] Rita'S Medical CenterComment on above:Performed By: #### HIV12 #### [facility] [address] [place] [address] Andriy KarenHematocrit (Bld) [Volume fraction]28.9 %Critically low36.0-48.0The [facility] Rita'S Medical CenterComment on above:Performed By: #### HIV12 #### [facility] [address] [place] [address] Andriy KarenHemoglobin (Bld) [Mass/Vol]9.2 g/dLCritically low12.0-16.0[facility] HospitalComment on above:Result Comment: PATIENT DELIVEREDPerformed By: #### HIV12 #### [facility] [address] [place] [address] Andriy KarenIG #0.07 10e3/ulCritically high0.00-0.03The [facility]'S Medical CenterComment on above:Performed By: #### HIV12 #### [facility] [address] [address] Andriy KarenIG %0.7 %Critically high0.0-0.5The [facility] Rita'S Medical CenterComment on above:Performed By: #### HIV12 #### [facility] [address] [place] [address] Andriy SteinLYMPH #3.2 103/ulNormal1.2-3.8The [facility]'S Medical CenterComment on above: Performed By: #### HIV12 #### [facility] [address] [place] [address] Andriy RodgersenLymphocytes/100 WBC (Bld)29.7 %Gozcyz07.5-60.0[facility] Comment on above:Performed By: #### HIV12 #### [facility] [address] [place] [address] Andriy KarenMANUAL DIFF REQNONormalThe [facility]'S Medical CenterComment on above: Performed By: #### HIV12 #### [facility] [address] [place] [address] Andriy KarenMCH (RBC) [Entitic mass]28.0 rfCujfkj24.7-34.0[facility] Comment on above:Performed By: #### HIV12 #### [facility] [address] [place] [address] Andriy KarenMCHC (RBC) [Mass/Vol]31.8 g/oUAuhygl65.9-35.2[facility] Comment on above:Performed By: #### HIV12 #### [facility] [address] [place] [address] Andriy KarenMCV (RBC) [Entitic vol]87.8 jRSmqrcz84.0-99.0[facility] Comment on above:Performed By: #### HIV12 #### [facility] [address] [place] [address] Andriy RodgersenMONO #0.9 103/ulCritically high0.3-0.8The [facility] Medical CenterComment on above:Performed By: #### HIV12 #### [facility] [address] [id number] Andriy KarenMonocytes/100 WBC (Bld)8.3 %Normal1.7-12.0The [facility] Comment on above:Performed By: #### HIV12 #### [facility] [address] [place] [address] Andriy KarenNEUT #6.3 103/ulNormal1.4-6.5The [facility] Medical CenterComment on above: Performed By: #### HIV12 #### [facility] [address] [place] [address] Andriy KarenNeutrophils/100 WBC (Bld)59.7 %Aebsuj65.0-75.0The [facility] Comment on above:Performed By: #### HIV12 #### [facility] [address] [place] [address] Andriy KarenPlatelet mean volume (Bld) [Entitic vol]9.7 fLNormal9.5-13.5The [facility]S Medical CenterComment on above:Performed By: #### HIV12 #### [facility] [address] [place] [address] Andriy UhiqgTQK290 103/zcCjdkgb831-161Jtp [facility]S Medical CenterComment on above: Performed By: #### HIV12 #### [facility] [address] [place] [address] Andriy KarenRBC3.29 106/ulCritically low4.20-5.40The [facility]S Medical CenterComment on above:Performed By: #### HIV12 #### [facility] [address] [place] [address] Andriy JsjweQCG76.6 103/ulNormal4.0-11.0The [facility] Medical CenterComment on above: Performed By: #### HIV12 #### [facility] [address] [place] [address] Andriy KarenASYMPTOMATIC COVID-19 ANTIGENon [id number] StatementSEE BELOW NormalThe [facility] St[facility] Rita'S Medical CenterComment on above:Result Comment: This test has not been FDA [...] declaration is terminated or authorization is revoked sooner.Performed By: #### HBSANS #### [facility] [address] [place] [address] Andriy Le-CoV-2 (COVID-19) RNA CARLITOS+probe Ql (Unsp spec)NegativeNormal NEGATIVEThe [facility]'S Medical CenterComment on above:Result Comment: Negative results are presumptive. They do not preclude infection and should not be used as the sole basis for treatment decisions. Additional confirmatory testing by a molecular method should be considered.Performed By: #### HBSANS #### [facility] [address] [place] [address] Andriy Dailey AUTO DIFFon [id number] #0.0 103/ulNormal0.0-0.1The [facility]S Medical CenterComment on above:Performed By: #### CBC ####[facility] Rvomyneodx[address] [place], [place] [address]Dr.Yilan ChangBasophils/100 WBC (Bld)0.2 %Normal0.2-2.0The [facility]S Medical CenterComment on above:Performed By: #### CBC ####[facility] Qlbyrfvzvx367[address] [place], [place] [address]Dr.Yilan ChangEO #0.1 103/ulNormal0.0-0.7The [facility] CenterComaspirus [facility] on above:Performed By: #### CBC ####[facility] Blftjarqsu[address] [place], [place] [address]Dr.Yilan ChangEosinophils/100 WBC (Bld)1.0 %Normal 0.9-7.0The [facility]S Medical CenterComment on above:Performed By: #### CBC ####[facility] Ayaqqljwuh025[address] [place], [place] [address]Dr.Sunil Conner Erythrocyte distribution width (RBC) [Ratio]17.0 %Critically high11.0-15.0The [facility]'S Medical CenterComment on above:Performed By: #### CBC ####[facility] Dhmrrdaxlu6[address] [place], [place] [address]Dr.Sunil ConnerHematocrit (Bld) [Volume fraction]37.5 %Sqibsr36.0-48.0The [facility]'S Medical CenterComment on above:Performed By: #### CBC ####[facility] Rnjihazhdp68[address] [place], [place] [address]Dr.Sunil UbaldoHemoglobin (Bld) [Mass/Vol]12.3 g/dL Ngxouc63.0-16.0The [facility]S Medical CenterComment on above:Performed By: #### CBC ####[facility] Aytxymcjlp8039[address] [place], [place] [address]Dr. Sunil ConnerIG #0.05 10e3/ulCritically high0.00-0.03The [facility]S Medical CenterComment on above:Performed By: #### CBC ####[facility] Uovrvypxzp174[address] [place], [place] [address]Dr.Sunil ConnerIG %0.5 %Normal0.0-0.5The [facility]S Medical CenterComment on above:Performed By: #### CBC ####[facility] Zbbedddwpo[address] [place], [place] [address]Dr.Sunil ConnerLYMPH #2.8 103/ulNormal1.2-3.8The [facility] Medical CenterComment on above:Performed By: #### CBC ####[facility] Vrojjljobu344[address] [place], [place] [address]Dr. Chelsiebriana ConnerLymphocytes/100 WBC (Bld)28.4 %Oeeqxd94.5-60.0The [facility] Comment on above:Performed By: #### CBC ####[facility] Ucjznxmfuz165[address] [place], [place] [address]Dr.Sunil ConnerMANUAL DIFF REQNONormalThe [facility]S Medical CenterComment on above:Performed By: #### CBC ####[facility] Iguubstfgp30[address] [place], [place] [address]Dr.Sunil ConnerH (RBC) [Entitic mass]28.5 yyWfgbgl51.7-34.0The [facility] HospitalComment on above: Performed By: #### CBC ####[facility] Rtgrnqdjmm9129[address] [place], [place] [address]Dr.Sunil ConnerHC (RBC) [Mass/Vol]32.8 g/dLNormal 29.9-35.2The [facility] Medical CenterComment on above:Performed By: #### CBC ####[facility] Aiqyffhhdc05[address] [place], [place] [address]Dr. Sunil ConnerV (RBC) [Entitic vol]86.8 gIYrmnnl14.0-99.0The [facility] Comment on above:Performed By: #### CBC ####[facility] Bdodymdxuh[address] [place], [place] [address]Dr.Sunil ConnerMONO #0.8 103/ulNormal0.3-0.[address] [facility] Medical CenterComment on above:Performed By: #### CBC ####[facility] Qkfvsirqjt8740[address] [place], [place] [address]Dr.Sunil Conner Monocytes/100 WBC (Bld)7.9 %Normal1.7-12.0The [facility]S Medical CenterComment on above: Performed By: #### CBC ####[facility] Mbilqcllfc[address] [place], [place] [address]Dr.Sunil ConnerNEUT #6.0 103/ulNormal1.4-6.5The [facility]S Medical CenterComment on above:Performed By: #### CBC ####[facility] Ozrutqqful7[address] [place], [place] [address]Dr.Sunil ConnerNeutrophils/100 WBC (Bld)62.0 %Czyxfm65.0-75.0The [facility] HospitalComment on above:Performed By: #### CBC ####[facility] [address] [address]Dr.Sunil ConnerPlatelet mean volume (Bld) [Entitic vol]10.2 fLNormal9.5-13.[address] [facility] CenterComment on above:Performed By: #### CBC ####[facility] [address] [address]Dr.Sunil LyninETH392 103/nuTltpbd550-007Mlf [facility]S Medical CenterComment on above:Performed By: #### CBC ####[facility] Pboxcjrusn4[address] [place], [place] [address]Dr. Chelsielan ChangRBC4.32 106/ulNormal4.20-5.40The [facility] Medical CenterComment on above: Performed By: #### CBC ####[facility] Gbzhzunlgq9[address] [place], [place] [address]Dr.Chelsiebriana ChangWBC9.7 103/ulNormal4.0-11.0The [facility] Medical CenterComment on above:Performed By: #### CBC ####[facility] Xjxmpcefbz15[address] [place], [place] [address]Dr.Sunil ChangDRUG SCREEN RAPID (URINE)on [id number]LSfy [facility] HospitalComasp[facility] on above:Performed By: #### DRUGRPD ####[facility] Thygdymqts39[address] [place], [place] [address]Dr. Sunil ChangBARNegativeNormalNEGATIVEPaulding County HospitalComment on above:Performed By: #### DRUGRPD ####[facility] Ghkbessbwr718[address] [place], [place] [address]Dr. Sunil ChangBUP NegativeNormalNEGATIVEPaulding County HospitalComment on above:Performed By: #### DRUGRPD ####[facility] Uqbmvxfuzc213[address] [place], [place] [address]Dr. Yilan ChangBZONegativeNormalNEGATIVEPaulding County HospitalComment on above:Performed By: #### DRUGRPD ####[facility] Dgypnnuxjk279[address] [place], [place] [address]Dr. Yilan ChangCOCNegativeNormalNEGATIVEPaulding County HospitalComment on above:Performed By: #### DRUGRPD ####[facility] Fqccnhgaan023[address] [place], [place] [address]Dr. Sunil ConnerCUT-OFFSSEE BELOWUniversity Hospitals St. John Medical CenterComment on above:Result Comment: AMP (Amphetamine): 500ng/mL, BAR (Barbituates): 200 ng/mL, BZO (Benzodiazepines): 15 0 ng/mL, BUP (Buprenorphine): 10 ng/mL, TAMICA (Cocaine): 150 ng/mL, mAMP (Methamphetamine): 500 ng/mL, MTD (Methadone): 200 ng/mL, OPI (Opiates): 100 ng/mL, OXY (Oxycodone): 100 ng/mL, PCP (Phencyclidine): 25 ng/mL, PPX (Propoxyphene): 300 ng/mL, THC (Cannabinoids): 50 ng/mL, TCA (Trycyclic Antidepressants): 300 ng/mLPerformed By: #### DRUGRPD ####[facility] Ejwttmvjmt[address] [place], [place] [address]Dr. Sunil ConnerDRUG CUT HEADERDRUG CLASS TEST SYSTEM CUT-OFF CONCENTRATIONS ARE FOLLOWS:NormalThe [facility]'S Medical CenterComment on above:Performed By: #### DRUGRPD ####[facility] Ohxpvbppin7377[address] [place], [place] [address]Dr. Sunil ConnermAMP NegativeNormalNEGATIVEPaulding County HospitalComment on above:Performed By: #### DRUGRPD ####[facility] Cgizcqowoz50[address] [place], [place] [address]Dr. Sunil ConnerMTDNegativeNormalNEGATIVEPaulding County HospitalComment on above:Performed By: #### DRUGRPD ####[facility] Cfhpktgech[address] [place], [place] [address]Dr. Sunil ConnerOPINegativeNormalNEGATIVEPaulding County HospitalComment on above:Performed By: #### DRUGRPD ####[facility] Eilxlqpzfb839[address] [place], [place] [address]Dr. Sunil ConnerOXYNegative NormalNEGATIVEPaulding County HospitalComment on above:Performed By: #### DRUGRPD ####[facility] [address] [address]Dr. Sunil ConnerPCPNegativeNormalNEGATIVEPaulding County HospitalComment on above: Performed By: #### DRUGRPD ####[facility] [address] [address]Dr. Yibriana ChangPPXNegativeNormalNEGATIVEPaulding County HospitalComment on above:Performed By: #### DRUGRPD ####[facility] [address] [address]Dr. Yibriana ChangTCANegative NormalNEGATIVEPaulding County HospitalComment on above:Performed By: #### DRUGRPD ####[facility] [address] [address]Dr. Yibriana ChangTHCNegativeNormalNEGATIVEPaulding County HospitalComment on above: Performed By: #### DRUGRPD ####[facility] [address] [address]Dr. Sunil ConnerTYPE AND SCREENon [id number] AND SCREENNegativermBrown Memorial HospitalComment on above:Performed By: #### TNS #### [facility] Laboratory [address] [address] [address] Sunil Kong PREG BIOPHY W NON STRESSon [id number] PREG BIOPHY W NON STRESSEXAMINATION: US PREG BIOPHY W NON STRESS HISTORY: [...] Electronically authenticated by: NADIA DOOLEY Date: 2021-07-13 10:55EdwigeSumma Health Wadsworth - Rittman Medical Centerpernell [facility] Medical CenterUS PREG GROWTHon [id number] PREG GROWTHEXAMINATION: US PREG GROWTH HISTORY: History of complication [...] EFW: 6 lbs. 3 oz., 37% FL/AC: 0.142715 FL/BPD: 0.601076 HC/AC: 0.826151 GESTATIONAL AGE: Age by EDC: 36 weeks 4 days FAHEEM by EDC: 08/04/2021 Age by US: 35 weeks 3 days FAHEEM by US: 08/12/2021 IMPRESSION: Normal interval growth Electronically authenticated by: NADIA DOOLEY Date: 2021-07-11 10:28[facility] Medical CenterCOVID Quick Testingon [id number] Airstone Other Quick Strepon 07-09-2021. pyogenes Org specific cx Ql (Throat)NegativeShelby Airstone Other Queiz StrepU For Life Other GROUP B STREP CULTUREon 07-06-2021. agalactiae Ag Ql (Unsp spec)Culture Observations: NEGATIVE FOR GROUP B STREPTOCOCCUS.NormalThe [facility]'S Medical CenterComment on above: Performed By: #### GBSCX #### [facility] Laboratory [address] [place] [address] Dr. Sunil Kong PREG GROWTHon [id number] PREG GROWTHEXAMINATION: US PREG GROWTH HISTORY: History of complication [...] EFW: 4 lbs. 14 oz., 53% FL/AC: 0.442533 FL/BPD: 0.125593 HC/AC: 1.108205 GESTATIONAL AGE: Age by EDC: 33 weeks 4 days FAHEEM by EDC: 08/04/2021 Age by US: 33 weeks 1 day FAHEEM by US: 08/07/2021 IMPRESSION: Normal interval growth Electronically authenticated by: NADIA DOOLEY Date: 2021-06-20 11:46NormalThe [facility] AUTO DIFFon [id number] #0.0 103/ulNormal0.0-0.1[facility] HospitalComment on above:Performed By: #### HIV12 #### [facility] [address] [place] [address] Andriy KarenBasophils/100 WBC (Bld)0.5 %Normal0.2-2.0[facility] Comment on above:Performed By: #### HIV12 #### [facility] [address] [place] [address] Andriy KarenEO #0.1 103/ulNormal0.0-0.7ThWayne HospitalComment on above: Performed By: #### HIV12 #### [facility] [address] [place] [address] Andriy KarenEosinophils/100 WBC (Bld)1.3 %Normal0.9-7.0[facility] Comment on above:Performed By: #### HIV12 #### [facility] [address] [place] [address] Andriy KarenErythrocyte distribution width (RBC) [Ratio]19.8 %Critically high 11.0-15.0[facility] HospitalComment on above:Performed By: #### HIV12 #### [facility] [address] [place] [address] Andriy KarenHematocrit (Bld) [Volume fraction]34.9 %Critically low36.0-48.0The [facility]S Medical CenterComment on above:Performed By: #### HIV12 #### [facility] [address] [place] [address] Andriy KarenHemoglobin (Bld) [Mass/Vol]11.1 g/dLCritically low12.0-16.0The [facility] Medical CenterComment on above:Performed By: #### HIV12 #### [facility] [address] [place] [address] Andriy KarenIG #0.04 10e3/ulCritically high0.00-0.03The [facility] Medical CenterComment on above:Performed By: #### HIV12 #### [facility] [address] [place] [address] Andriy KarenIG %0.5 %Normal0.0-0.5The [facility]S Medical CenterComment on above: Performed By: #### HIV12 #### [facility] [address] [place] [address] Andriy KarenLYMPH #2.1 103/ulNormal1.2-3.8The [facility]S Medical CenterComment on above: Performed By: #### HIV12 #### [facility] [address] [place] [address] Andriy KarenLymphocytes/100 WBC (Bld)24.8 %Qtuipl78.5-60.0The [facility] Comment on above:Performed By: #### HIV12 #### [facility] [address] [place] [address] Andriy KarenMANUAL DIFF REQNONormalThe [facility]S Medical CenterComment on above: Performed By: #### HIV12 #### [facility] [address] [place] [address] Andriy KarenMCH (RBC) [Entitic mass]27.5 moVlyzsy70.7-34.0The [facility] Comment on above:Performed By: #### HIV12 #### [facility] [address] [place] [address] Andriy KarenMCHC (RBC) [Mass/Vol]31.8 g/lXSozjyu45.9-35.2[facility] Comment on above:Performed By: #### HIV12 #### [facility] [address] [place] [address] Andriy KarenMCV (RBC) [Entitic vol]86.6 mJHxuhtg31.0-99.0The [facility] Comment on above:Performed By: #### HIV12 #### [facility] [address] [place] [address] Andriy KarenMONO #0.7 103/ulNormal0.3-0.8The [facility]S Medical CenterComment on above: Performed By: #### HIV12 #### [facility] [address] [place] [address] Andriy KarenMonocytes/100 WBC (Bld)8.7 %Normal1.7-12.0[facility] Comment on above:Performed By: #### HIV12 #### [facility] [address] [place] [address] Andriy KarenNEUT #5.4 103/ulNormal1.4-6.5The [facility]S Medical CenterComment on above: Performed By: #### HIV12 #### [facility] Laboratory [address] [place] [address] Andriy KarenNeutrophils/100 WBC (Bld)64.2 %Goofqj37.0-75.0[facility] Comment on above:Performed By: #### HIV12 #### [facility] [address] [place] [address] Andriy KarenPlatelet mean volume (Bld) [Entitic vol]9.9 fLNormal9.5-13.5The [facility] Medical CenterComment on above:Performed By: #### HIV12 #### [facility] Laboratory [address] [place] [address] Andriy ObemgABL846 103/ioQcbmvd173-395Qti [facility]S Medical CenterComment on above: Performed By: #### HIV12 #### [facility] [address] [place] [address] Andriy KarenRBC4.03 106/ulCritically low4.20-5.40[facility] HospitalComment on above:Performed By: #### HIV12 #### [facility] [address] [address] Andriy RodgersenWBC8.5 103/ulNormal4.0-11.0The [facility]S Medical CenterComment on above: Performed By: #### HIV12 #### [facility] [address] [address] Andriy BoykinTT 3 HR PREGon [id number] [Mass/Vol]85 mg/iPTcehdo68-459Mpn [facility]S Medical CenterComment on above:Performed By: #### GTT3P ####[facility] [address] [address]Dr. Sunil ChangGlucose [Mass/Vol]188 mg/dLUniversity Hospitals St. John Medical CenterComment on above:Performed By: #### GTT3P ####[facility] [address] [address]Dr. Sunil ChangGlucose [Mass/Vol]133 mg/dLUniversity Hospitals St. [facility] Comment on above:Performed By: #### GTT3P ####[facility] [address] [address]Dr. Chelsielan ChangGlucose [Mass/Vol]122 mg/dL NormalPaulding County HospitalComment on above:Performed By: #### GTT3P ####[facility] [address] [address]Dr. Yilan ChangCBC AUTO DIFFon [id number] #0.0 103/ulNormal0.0-0.1[facility] HospitalComment on above:Performed By: #### CBC #### [facility] Laboratory [address] [place] [address] Dr. Sunil ConnerBasophils/100 WBC (Bld)0.3 %Normal0.2-2.0[facility] Comment on above:Performed By: #### CBC #### [facility] [address] [place] [address] Dr. Sunil Gomez #0.1 103/ulNormal0.0-0.7The [facility]S Medical CenterComment on above: Performed By: #### CBC #### [facility] [address] [address] [address] Sunil Copelandosinophils/100 WBC (Bld)1.2 %Normal0.9-7.0The [facility] Comment on above:Performed By: #### CBC #### [facility] [address] [place] [address] Dr. Sunil Copelandrythrocyte distribution width (RBC) [Ratio]14.6 %Hgyoml33.0-15.[address] [facility] Medical CenterComment on above:Performed By: #### CBC #### [facility] [address] [place] [address] Dr. Sunil ConnerHematocrit (Bld) [Volume fraction]31.6 %Critically low36.0-48.[address] [facility] Medical CenterComment on above:Performed By: #### CBC #### [facility] [address] [place] [address] Dr. Sunil ConnerHemoglobin (Bld) [Mass/Vol]9.9 g/dLCritically low12.0-16.0The [facility] Medical CenterComment on above:Performed By: #### CBC #### [facility] [address] [place] [address] Dr. Sunil Neumann #0.05 10e3/ulCritically high0.00-0.03The [facility] Comment on above:Performed By: #### CBC #### [facility] [address] [place] [address] Dr. Sunil Neumann %0.5 %Normal0.0-0.5The [facility]S Medical CenterComment on above: Performed By: #### CBC #### [facility] [address] [place] [address] Dr. Sunil Calhoun #2.4 103/ulNormal1.2-3.8The [facility] Medical CenterComment on above:Performed By: #### CBC #### [facility] [address] [address] [address] Sunil Cabreramphocytes/100 WBC (Bld)25.6 %Blhedg12.5-60.0The [facility] Medical CenterComment on above:Performed By: #### CBC #### [facility] [address] [place] [address] Dr. Sunil AshrafUAL DIFF REQNONormalThe [facility] Medical CenterComment on above: Performed By: #### CBC #### [facility] [address] [place] [address] Dr. Sunil Ayala (RBC) [Entitic mass]25.8 pgCritically low26.7-34.0The [facility] Medical CenterComment on above:Performed By: #### CBC #### [facility] [address] [place] [address] Dr. Sunil Ayala (RBC) [Mass/Vol]31.3 g/yBAbysri56.9-35.2The [facility] Medical CenterComment on above:Performed By: #### CBC #### [facility] [address] [place] [address] Dr. Sunil Ayala (RBC) [Entitic vol]82.3 jARbivna48.0-99.0The [facility]'S Medical CenterComment on above:Performed By: #### CBC #### [facility] [address] [place] [address] Dr. Sunil Chua #0.5 103/ulNormal0.3-0.8The [facility]'S Medical CenterComment on above:Performed By: #### CBC #### [facility] [address] [place] [address] Dr. Sunil Eastmanocytes/100 WBC (Bld)5.3 %Normal1.7-12.0The [facility] Comment on above:Performed By: #### CBC #### [facility] [address] [place] [address] Dr. Sunil Choi #6.4 103/ulNormal1.4-6.5The [facility]'S Medical CenterComment on above:Performed By: #### CBC #### [facility] [address] [place] [address] Dr. Sunil ConnerNeutrophils/100 WBC (Bld)67.1 %Eecauk60.0-75.0The [facility]'S Medical CenterComment on above:Performed By: #### CBC #### [facility] [address] [place] [address] Dr. Sunil ConnerPlatelet mean volume (Bld) [Entitic vol]10.3 fLNormal9.5-13.5The [facility]'S Medical CenterComment on above:Performed By: #### CBC #### [facility] [address] [place] [address] Dr. Sunil ConnerPLT255 103/kzOnivvt598-658Omh [facility]'S Medical CenterComment on above: Performed By: #### CBC #### [facility] [address] [place] [address] Dr. Sunil ConnerRBC3.84 106/ulCritically low4.20-5.40The [facility]S Medical CenterComment on above:Performed By: #### CBC #### [facility] [address] [place] [address] Dr. Sunil ConnerWBC9.5 103/ulNormal4.0-11.0The [facility]S Medical CenterComment on above: Performed By: #### CBC #### [facility] [address] [place] [address] Dr. Sunil ConnerGLUCOSE - 1HRon 82-23-2401Figlquh [Mass/Vol]171 mg/dLCritically jsug22-776Kyt [facility]S Medical CenterComment on above:Performed By: #### HIV12 #### [facility] [address] [place] [address] Andriy KarenVAGINITIS/VAGINOSIS DNA PROBEon 58-67-0618Dxltvqs speciesPositive AbnormalNegativeThe [facility]'S Medical CenterComment on above:Performed By: #### VAGINT #### [facility] [address] [place] [address] Dr. Sunil Herreraerechente vaginalisNegativeNormalNegativeThe [facility] Comment on above:Performed By: #### VAGINT #### [facility] Laboratory [address] [address] [address] Sunil Cuevashomonas vaginalisNegativeNormalNegativePaulding County Hospital Comment on above:Performed By: #### VAGINT #### [facility] [address] [place], [place] [address] Dr. Sunil Kong PREG ANATOMY SINGLEon 01-74-4940BT PREG ANATOMY SINGLE EXAMINATION: US PREG ANATOMY [...] weeks 3 days EFW:12 ounces, 47%; FL/AC: 0.339653 FL/BPD: 0.394014 HC/AC: 1.786144 GESTATIONAL AGE: Age by EDC: 20 weeks 4 days FAHEEM by EDC: 08/04/2021 Age by current US: 20 weeks 2 days FAHEEM by current US: 08/06/2021 IMPRESSION: Normal anatomy scan *Reference: AIUM Practice Guideline for the performance of Obstetric Ultrasound Examinations, March 25, 2007. Electronically authenticated by: NADIA DOOLEY Date: 2021-03-21 16:13NoSouth[facility] ACOG PANEL 3: 21 to 29on 02-21-2021..NormalThe [facility] Rita'S Medical CenterComment on above:Result Comment: Performed at: WBPerformed By: #### HIV12 #### [facility] Laboratory [address] [place] [address] Andriy VishalenAge Gdln ACOG Rclnzpx78-92DxlupyJcfOhioHealth Berger HospitalComment on above:Performed By: #### HIV12 #### [facility] [address] [place] [address] Andriy KarenChlamydia, Nuc. Acid AmpNegativeNormalNegativePaulding County Hospital Comment on above:Result Comment: Performed at: =GPerformed By: #### HIV12 #### [facility] [address] [place] [address] KarenDIAGNOSIS:CommentAbBarney Children's Medical CenterComaspirus keweenaw hospital on above: Result Comment: EPITHELIAL CELL ABNORMALITY. LOW-GRADE SQUAMOUS INTRAEPITHELIAL LESION (LSIL); MILD DYSPLASIA. Performed at: WBPerformed By: #### HIV12 #### [facility] [address] [place] [address] KarenElectronically signed by:CommentMagruder Memorial Hospital on above:Result Comment: Kenneth العلي MD, Pathologist Performed at: WBPerformed By: #### HIV12 #### [facility] [address] [place] [address] KarenGonococcus, Nuc. Acid AmpNegativeNormalNegativePaulding County Hospital Comment on above:Result Comment: Performed at: =GPerformed By: #### HIV12 #### [facility] [address] [place] [address] KarenMethodology:CommentNoCleveland Clinic [place] [facility] on above: Result Comment: This liquid based ThinPrep(R) pap test was screened with the use of an image guided system. Performed at: WBPerformed By: #### HIV12 #### [facility] [address] [place] [address] KarenNote:CommentMagruder Memorial Hospital on above:Result Comment: The Pap smear is a screening test designed to aid in the detection of premalignant and malignant conditions of the uterine cervix. It is not a diagnostic procedure and should not be used as the sole means of detecting cervical cancer. Both false-positive and false-negative reports do occur. . Performed at: WBPerformed By: #### HIV12 #### [facility] [address] [place] [address] Andriy KarenPathologist Provided EVZ31WlqkxogYnwqccUhaMagruder Memorial Hospital on above:Result Comment: [id number] Performed at: WBPerformed By: #### HIV12 #### [facility] [address] [place] [address] Andriy KarenPerformed by:CommentNoCleveland Clinic [place] [facility] on above: Result Comment: Lilly Partida, Office Machine Punch Operator (ASCP) Performed at: WBPerformed By: #### HIV12 #### [facility] [address] [place] [address] Andriy KarenRecommendation:CommentAbParkview Health on above: Result Comment: Suggest follow up as clinically appropriate. Performed at: WBPerformed By: #### HIV12 #### [facility] [address] [place] [address] Andriy KarenReflex Criteria:[facility] on above: Result Comment: The HPV DNA reflex criteria were not met with this specimen result therefore, no HPV testing was performed. . Performed at: WBPerformed By: #### HIV12 #### [facility] [address] [place] [address] Andriy KarenSpecimen adequacy:[facility] on above:Result Comment: Satisfactory for evaluation. Endocervical and/or squamous metaplastic cells (endocervical component) are present. Performed at: WBPerformed By: #### HIV12 #### [facility] [address] [place] [address] Andriy KarenAFP MATERNAL FOR SPINA BIFIDAon 20-05-0143ZGC MoM1.15NormalPaulding County HospitalComaspirus keweenaw hospital on above:Performed By: #### HIV12 #### [facility] [address] [place] [address] Andriy KarenAFP Value35.0 ng/mLNKettering Health Behavioral Medical CenterComaspirus keweenaw hospital on above: Performed By: #### HIV12 #### [facility] [address] [place] [address] Andriylogan RodgersenAFP, Serum for Spina BifidaReOhio State Harding HospitalComaspirus keweenaw hospital on above:Performed By: #### HIV12 #### [facility] [address] [place] [address] Andriy KarenCommentOhioHealthComaspirus keweenaw hospital on above:Result Comment: Eve Perez, Ph.D., [facility] Director . References: Available Upon Request. . Multiples Of Median Cutoffs For AFP Elevations Beebe 2.5 Black 2.8 IDD 2.0 Twins 4.5 Abbreviation Definitions IDD - Insulin Dep Diabetes OSBR - Open Spina Bifida Risk . For further inquiries contact [employer] at [phone].Performed By: #### HIV12 #### [facility] [address] [place] [address] Andriy RodgersenGest Age Collection Date16.[address] John Medical CenterComaspirus keweenaw hospital on above:Performed By: #### HIV12 #### [facility] [address] [place] [address] Andriy RodgersenGestat, Age Based onUltrasMemorial Health System Selby General HospitalComaspirus keweenaw hospital on above:Result Comment: 16.0 on 02/17/2021 Recalculations are not recommended when gestational dating by LMP and ultrasound are within 10 days.Performed By: #### HIV12 #### [facility] [address] [place] [address] Andriy KarenInsulin Dep DiabetesNoNKettering Health Behavioral Medical CenterComaspirus keweenaw hospital on above: Performed By: #### HIV12 #### [facility] [address] [place] [address] Andriy KarenInterpretationOhioHealthComaspirus keweenaw hospital on above: Result Comment: Interpretation: Screen Negative . This result is screen [...] Customer Services to discuss available options. The [employer] recommends amniocentesis be offered to women age 35 and older.Performed By: #### HIV12 #### [facility] [address] [place] [address] Andriy KarenMaternal Age at EDD30.0 yrNoOhioHealth Berger HospitalComment on above:Performed By: #### HIV12 #### [facility] [address] [place] [address] Andriy KarenMultiple GestationNoNormalPaulding County HospitalComment on above: Performed By: #### HIV12 #### [facility] [address] [place] [address] Andriy KarenOSBR Risk 1 [id number] Berger HospitalComment on above: Performed By: #### HIV12 #### [facility] [address] [place] [address] Andriy KarenPDF.NormalPaulding County HospitalComment on above:Performed By: #### HIV12 #### [facility] [address] [place] [address] Andriy KarenRaceCaucasianNormalPaulding County HospitalComaspirus keweenaw hospital on above:Performed By: #### HIV12 #### [facility] [address] [place] [address] Andriy KarenTest Results:NegativeUniversity Hospitals St. John Medical CenterComment on above: Performed By: #### HIV12 #### [facility] [address] [place] [address] Andriy KarenHEMOGLOBINOPATHY FRACTIONATION CASCADEon 65-13-9557PFE A97.3 %Normal 96.4-98.8The ACMC Healthcare Systemment on above:Performed By: #### HGBCAS ####[facility] [address] [address]Gerken KarenHGB A22.7 %Normal1.8-3.2[facility] St[facility] Anne Hospitalment on above:Performed By: #### HGBCAS ####[facility] [address] KarenHGB F0.0 %Normal0.0-2.0The [facility]S Medical CenterComment on above: Performed By: #### HGBCAS ####[facility] [address] KarenHGB S0.0 %Normal0.0The [facility] Comment on above:Performed By: #### HGBCAS ####[facility] [address] [place], [place] [address]Gerken KarenInterpretation:CommentNormalThe [facility] on above:Result Comment: Normal hemoglobin present; no hemoglobin variant or thalassemia observed.Performed By: #### HGBCAS ####[facility] [address] [place] [address] KarenVARICELLA IGG ABon 02-07-2021 Varicella Zoster PgX782 indexNormalImmune >165The [facility] on above:Result Comment: Negative <135 Equivocal 135 - 165 Positive >165 A positive result generally indicates exposure to the pathogen or administration of specific immunoglobulins, but it is not indication of active infection or stage of disease.Performed By: #### VARCEL ####[facility] [address] [place] [address] KarHarborview Medical CenterEP B SURFACE ANTIGEN SCREENon 17-25-3106ADuGv ScreenNegativeNormalNegativeThe [facility] on above:Performed By: #### HBSANS #### [facility] Laboratory [address] [place], [place] [address] [place] [address] KarenHEPATITIS C ANTIBODYon 60-50-4887Kuk C Virus Ab<0.5Ldgoxk4.0-0.9The [facility] on above:Result Comment: Negative: < 0.8 Indeterminate: 0.8 - 0.9 Positive: > 0.9 . The CDC recommends that a positive HCV antibody result be followed up with a HCV Nucleic Acid Amplification test (191908).Performed By: #### HCV ####[facility] [address] [id number] KarenHIV 1 AND 2 WITH REFLEXon 02-06-2021 HIV Screen 4th Generation wRfxNon-ReactiveNormalNon ReactiveThe [facility]'S Medical CenterComment on above:Performed By: #### HIV12 #### [facility] Laboratory [address] [address] Andriy KarenRPR QUANTon 90-92-8899Pmxhx Plasma Reagin, QuantNon-ReactiveNormal NonRea<1:1The [facility] Medical CenterComment on above:Performed By: #### HIV12 #### [facility] Laboratory [address] [place] [address] Andriy KarenRUBELLA AB IGGon 29-95-6405Huocxxi Antibodies, IgG1.72 indexNormal Immune >0.99The [facility] on above:Result Comment: Non-immune <0.90 Equivocal 0.90 - 0.99 Immune >0.99Performed By: #### HIV12 #### [facility] [address] [place] [address] Andriy KarenCBC AUTO DIFFon 18-01-0345ZMOY #0.0 103/ulNormal0.0-0.1The [facility]S Medical CenterComment on above:Performed By: #### HBSANS #### [facility] Laboratory [address] [place] [address] Andriy KarenBasophils/100 WBC (Bld)0.3 %Normal0.2-2.0The [facility] Comment on above:Performed By: #### HBSANS #### [facility] Laboratory [address] [place] [address] Andriy KarenEO #0.2 103/ulNormal0.0-0.7The [facility]S Medical CenterComment on above: Performed By: #### HBSANS #### [facility] Laboratory [address] [place] [address] Andriy KarenEosinophils/100 WBC (Bld)1.7 %Normal0.9-7.0The [facility] Comment on above:Performed By: #### HBSANS #### [facility] Laboratory [address] [place] [address] Andriy KarenErythrocyte distribution width (RBC) [Ratio]14.0 %Vngasq07.0-15.0The [facility] Medical CenterComment on above:Performed By: #### HBSANS #### [facility] Laboratory [address] [place] [address] Andriy KarenHematocrit (Bld) [Volume fraction]34.3 %Critically low36.0-48.0The [facility] Medical CenterComment on above:Performed By: #### HBSANS #### [facility] Laboratory [address] [place] [address] Andriy KarenHemoglobin (Bld) [Mass/Vol]11.0 g/dLCritically low12.0-16.0The [facility] Medical CenterComment on above:Performed By: #### HBSANS #### [facility] Laboratory [address] [place] [address] Andriy KarenIG #0.02 10e3/ulNormal0.00-0.03The [facility]S Medical CenterComment on above:Performed By: #### HBSANS #### [facility] Laboratory [address] [place] [address] Andriy KarenIG %0.2 %Normal0.0-0.5The [facility]S Medical CenterComment on above: Performed By: #### HBSANS #### [facility] Laboratory [address] [place] [address] Andriy KarenLYMPH #3.4 103/ulNormal1.2-3.8The [facility] Medical CenterComment on above: Performed By: #### HBSANS #### [facility] [address] [place] [address] Andriy KarenLymphocytes/100 WBC (Bld)38.7 %Aaknol71.5-60.0The [facility] Comment on above:Performed By: #### HBSANS #### [facility] [address] [place] [address] Andriy KarenMANUAL DIFF REQNONormalThe [facility]S Medical CenterComment on above: Performed By: #### HBSANS #### [facility] Laboratory [address] [place] [address] Andriy SteinMCH (RBC) [Entitic mass]27.2 chHrscyi76.7-34.0The [facility] Comment on above:Performed By: #### HBSANS #### [facility] Laboratory [address] [place] [address] Andriy SteinMCHC (RBC) [Mass/Vol]32.1 g/iHDolhkl99.9-35.2The [facility] Comment on above:Performed By: #### HBSANS #### [facility] [address] [place] [address] Andriy SteinMCV (RBC) [Entitic vol]84.9 jIFdvfro92.0-99.0The [facility] Comment on above:Performed By: #### HBSANS #### [facility] [address] [place] [address] Andriy KarenMONO #0.7 103/ulNormal0.3-0.8The [facility] Medical CenterComment on above: Performed By: #### HBSANS #### [facility] [address] [place] [address] Andriy KarenMonocytes/100 WBC (Bld)8.3 %Normal1.7-12.0The [facility] Comment on above:Performed By: #### HBSANS #### [facility] [address] [place] [address] Andriy RodgersenNEUT #4.4 103/ulNormal1.4-6.5The [facility] Medical CenterComment on above: Performed By: #### HBSANS #### [facility] Laboratory [address] [place] [address] Andriy KarenNeutrophils/100 WBC (Bld)50.8 %Cfenaz16.0-75.0The [facility] Comment on above:Performed By: #### HBSANS #### [facility] [address] [place] [address] Andriy KarenPlatelet mean volume (Bld) [Entitic vol]9.8 fLNormal9.5-13.5The [facility] Medical CenterComment on above:Performed By: #### HBSANS #### [facility] [address] [address] Andriy WuugcVFW367 103/teVhbpeh320-312Tma [facility] CenterComaspirus keweenaw hospital on above: Performed By: #### HBSANS #### [facility] [address] [address] Andriy KarenRBC4.04 106/ulCritically low4.20-5.40The [facility] Medical CenterComment on above:Performed By: #### HBSANS #### [facility] [address] [address] Andriy KarenWBC8.7 103/ulNormal4.0-11.0The [facility] CenterComaspirus keweenaw hospital on above: Performed By: #### HBSANS #### [facility] Laboratory [address] [place] [address] Andriy KarenGLYCOHEMOGLOBIN A1Con 92-74-4505SGU RECOMMENDATIONADA THERAPEUTIC TARGET 6.0 - 7.0 ACTION SUGGESTED > 7.0NormBrown Memorial HospitalComment on above:Performed By: #### A1C ####[facility] [address] [address]Gerken KarenGlucose [Mass/Vol]111 mg/dLUniversity Hospitals St. John Medical CenterComaspirus keweenaw hospital on above:Performed By: #### A1C ####[facility] [address] [place], [place] [address]Gerken UjaajVfR8f (Bld) [Mass fraction]5.5 %Normal<=6.0The [facility] CenterComaspirus keweenaw hospital on above:Performed By: #### A1C ####[facility] [address] [address]Gerken KarenGTT 3 HR PREGon 86-59-1873Upaoavv [Mass/Vol]79 mg/dLNormal 74-106The [facility] CenterComaspirus keweenaw hospital on above:Performed By: #### HBSANS #### [facility] Laboratory [address] [place] [address] Andriy KarenGlucose [Mass/Vol]117 mg/dLNoOhioHealth Berger HospitalComment on above:Performed By: #### HBSANS #### [facility] Laboratory [address] [address] Andriy KarenGlucose [Mass/Vol]93 mg/dLNoOhioHealth Berger HospitalComment on above:Performed By: #### HBSANS #### [facility] [address] [address] Andriy KarenGlucose [Mass/Vol]46 mg/dLCritically lowThe [facility]S Medical CenterComment on above:Performed By: #### HBSANS #### [facility] Laboratory [address] [address] Andriy KarenTYPE AND SCREENon 11-92-2848RGWQ AND SCREENAntibody Screen NEGATIVE Blood Bank Notes completed by [facility] ABO Rh Typing A Rh Positive Blood Bank Notes completed by [facility] on above:Performed By: #### TNS #### [facility] Laboratory [address] [place] [address] Andriy KarenCULTURE URINEon 34-40-3824KSHWGSC URINECulture Observations: MODERATE GROWTH OF MIXED GENITAL HUBER. NO POTENTIAL PATHOGENS SEEN.NormalThe [facility]'S Medical CenterComment on above:Performed By: #### URCX ####[facility] [address] [address]Gerken KarenUA RANDOM W/MICROSCOPICon 59-28-3374TFHCOIDKXHBCKAuderwupGUBX SEENPaulding County Hospital Comment on above:Performed By: #### HBSANS #### [facility] Laboratory [address] [place] [address] Andriy KarenBilirubin Ql (U)NegativeNormalNEGATIVEPaulding County HospitalComment on above:Performed By: #### HBSANS #### [facility] Laboratory [address] [place] [address] Andriy KarenCASTNONE SEENNormalNONE SEENPaulding County HospitalComment on above: Performed By: #### HBSANS #### [facility] Laboratory [address] [address] Andriy KarenClarity (U)CLEARNormalCLEARPaulding County HospitalComment on above: Performed By: #### HBSANS #### [facility] [address] [address] Andriy KarenColor (U)YELLOWNormalYELLOWPaulding County HospitalComment on above: Performed By: #### HBSANS #### [facility] [address] [address] Andriy KarenCrystals LM Nom (Urine sed)NONE SEENNormalNONE SEENPaulding County HospitalComment on above:Performed By: #### HBSANS #### [facility] Laboratory [address] [place] [address] Andriy KarenEpithelial cells LM Ql (Urine sed)FEWAbnormalNONE SEEN /RAREPaulding County HospitalComment on above:Performed By: #### HBSANS #### [facility] Laboratory [address] [place] [address] Andriy KarenGlucose Ql (U)NegativeNormalNEGATIVEPaulding County HospitalComment on above:Performed By: #### HBSANS #### [facility] Laboratory [address] [place] [address] Andriy KarenHemoglobin Ql (U)NegativeNormalNEGATIVEPaulding County HospitalComaspirus keweenaw hospital on above:Performed By: #### HBSANS #### [facility] Laboratory [address] [place] [address] Andriy KarenKetones Ql (U)TRACEAbnormalNEGATIVEPaulding County HospitalComaspirus keweenaw hospital on above:Performed By: #### HBSANS #### [facility] Laboratory [address] [place] [address] Andriy KarenLEUKOCYTESNegativeNormalNEGATIVEPaulding [facility] on above:Performed By: #### HBSANS #### [facility] [address] [place] [address] Andriy KarenMUCOUSSMALLAbnormalNONE SEENPaulding County HospitalComaspirus [facility] on above: Performed By: #### HBSANS #### [facility] [address] [place] [address] Andriy KarenNitrite Ql (U)NegativeNormalNEGATIVEThe [facility] HospitalComment on above:Performed By: #### TRIPP #### [facility] [address] [address] Andriy KarenpH (U)7.0 [pH]Normal5-9The [facility]S Medical CenterComment on above: Performed By: #### TRIPP #### [facility] [address] [place] [address] Andriy ZkjraHTK9-8Duroqw3-4Rxj [facility]S Medical CenterComment on above:Performed By: #### TRIPP #### [facility] [address] [place] [address] Andriy RodgersenSPEC GRAVITY1.591Gdhgzc0.005-<=1.025The [facility]S Medical CenterComment on above:Performed By: #### TRIPP #### [facility] [address] [place] [address] Andriy KarenUA PROTEINNegativeNormalNEGATIVE/ TRACEThe [facility]'S Medical CenterComment on above:Performed By: #### JAMESANS #### [facility] [address] [place] [address] Andriy KarenUrobilinogen Qn (U)0.2 {Juanito'U}/dLNormal0.2 - 1.0The [facility] Systemment on above:Performed By: #### JAMESANS #### [facility] [address] [place] [address] Andriy KarenWBCNONE SEENNormalNONE SEENThe [facility]S Medical CenterComment on above: Performed By: #### JAMESANS #### [facility] [address] [place] [address] Andriy KarenBUNon 21-70-9776Lueg nitrogen [Mass/Vol]5.0 mg/dLCritically low 7.0-17.0The [facility] Medical CenterComment on above:Performed By: #### TSH, LDH, BUN, URIC, ALT, AST ####[facility] [address] [place], [place] [address]Gerken KarenCBC AUTO DIFFon 71-67-5791LEQI #0.0 103/ulNormal0.0-0.1The [facility]S Medical CenterComment on above:Performed By: #### CBC #### [facility] [address] [id number] Andriy KarenBasophils/100 WBC (Bld)0.4 %Normal0.2-2.0The [facility] Comment on above:Performed By: #### CBC #### [facility] [address] [id number] Andriy KarenEO #0.1 103/ulNormal0.0-0.7The [facility] Medical CenterComment on above: Performed By: #### CBC #### [facility] [address] [id number] Andriy KarenEosinophils/100 WBC (Bld)1.1 %Normal0.9-7.0The [facility] Comment on above:Performed By: #### CBC #### [facility] [address] [address] Andriy KarenErythrocyte distribution width (RBC) [Ratio]14.6 %Hfklcn79.0-15.0Paul[facility] County HospitalComment on above:Performed By: #### CBC #### [facility] [address] [address] Andriy KarenHematocrit (Bld) [Volume fraction]34.7 %Critically low36.0-48.0The [facility] Medical CenterComment on above:Performed By: #### CBC #### [facility] [address] [address] Andriy KarenHemoglobin (Bld) [Mass/Vol]11.1 g/dLCritically low12.0-16.0The [facility] CenterComment on above:Performed By: #### CBC #### [facility] [address] [address] Andriy KarenIG #0.04 10e3/ulCritically high0.00-0.03The [facility] Medical CenterComment on above:Performed By: #### CBC #### [facility] [address] [address] Andriy KarenIG %0.5 %Normal0.0-0.5The [facility] HospitalComment on above: Performed By: #### CBC #### [facility] [address] [address] Andriy RodgersenLYMPH #2.1 103/ulNormal1.2-3.8The [facility] CenterComment on above: Performed By: #### CBC #### [facility] [address] [place] [address] Andriy KarenLymphocytes/100 WBC (Bld)25.5 %Rcewsl95.5-60.0[facility] Comment on above:Performed By: #### CBC #### [facility] [address] [place] [address] Andriy KarenMANUAL DIFF REQNONormalThe [facility]S Medical CenterComment on above: Performed By: #### CBC #### [facility] [address] [place] [address] Andriy KarenMCH (RBC) [Entitic mass]27.2 uoPflyra23.7-34.0[facility] Comment on above:Performed By: #### CBC #### [facility] [address] [place] [address] Andriy KarenMCHC (RBC) [Mass/Vol]32.0 g/hLYoyoaa78.9-35.2[facility] Comment on above:Performed By: #### CBC #### [facility] [address] [place] [address] Andriy KarenMCV (RBC) [Entitic vol]85.0 vEQkpmnb46.0-99.0[facility] Comment on above:Performed By: #### CBC #### [facility] [address] [place] [address] Andriy KarenMONO #0.6 103/ulNormal0.3-0.8The [facility] CenterComment on above: Performed By: #### CBC #### [facility] [address] [place] [address] Andriy KarenMonocytes/100 WBC (Bld)7.1 %Normal1.7-12.0[facility] Comment on above:Performed By: #### CBC #### [facility] [address] [place] [address] Andriy KarenNEUT #5.3 103/ulNormal1.4-6.5The [facility] Medical CenterComment on above: Performed By: #### CBC #### [facility] [address] [place] [address] Andriy KarenNeutrophils/100 WBC (Bld)65.4 %Uuoruy85.0-75.0The [facility] Comment on above:Performed By: #### CBC #### [facility] [address] [place] [address] Andriy KarenPlatelet mean volume (Bld) [Entitic vol]9.5 fLNormal9.5-13.5The [facility] CenterComment on above:Performed By: #### CBC #### [facility] Laboratory [address] [place] [address] Andriy EbnoeAOI267 103/jnBpuyfa011-518Exz [facility]S Medical CenterComment on above: Performed By: #### CBC #### [facility] [address] [place] [address] Andriy KarenRBC4.08 106/ulCritically low4.20-5.40The [facility] Medical CenterComment on above:Performed By: #### CBC #### [facility] [address] [place] [address] Andriy KarenWBC8.1 103/ulNormal4.0-11.0The [facility] Medical CenterComment on above: Performed By: #### CBC #### [facility] [address] [place] [address] Andriy KarenCREATININE CLEARon 61-72-4783TGSL DSLGFYDGY72.46 ml/minCritically low75.00-115.00The [facility] Medical CenterComment on above:Performed By: #### HIV12 #### [facility] [address] [place] [address] Andriy KarenCREA, 24 HR UR579.12 mg/24 hrCritically mel309.00-1,800.00The [facility] HospitalComment on above:Performed By: #### HIV12 #### [facility] [address] [address] Andriy KarenCreatinine [Mass/Vol]0.53 mg/dLNormal0.52-1.04The [facility] Comment on above:Performed By: #### HIV12 #### [facility] [address] [address] Andriy KarenURINE CREAT30.48 mg/lBVpgxsr82.00-300.00The [facility] Medical CenterComment on above:Performed By: #### HIV12 #### [facility] [address] [address] Andriy KarenGLUCOSE - 1HRon 97-12-0768Vroywjk [Mass/Vol]150 mg/dLCritically high 74-106The [facility] Medical CenterComment on above:Performed By: #### GLU1HR ####[facility] N[address] [place], [place] [address]Gerken KarenLDHon 31-21-9160DMH410 U/LFgxjkk781-916Oon [facility]S Medical CenterComment on above:Performed By: #### TSH, LDH, BUN, URIC, ALT, AST ####[facility] [address] [place], [place] [address]Gerken KarenPROTEIN 24HR URINEon 01-26-2021T PROT, 24 HR UR32.3 mg/24 hrCritically low42.0-225.0The [facility] Medical CenterComment on above:Performed By: #### [id number] ####[facility] [address] [place], [place] [address]Gerken KarenUR PROT 1.7 mg/dLNormal<=12.0The [facility] Medical CenterComment on above:Performed By: #### [id number] ####[facility] P[address]ks[address] [place], [place] [address]Gerken KarenUR TOT QCT9829 ml/[address] [facility]'S Medical CenterComment on above:Performed By: #### [id number] ####[facility] Qohsymxaas[address] VishalenPerformed By: #### HIV12 #### [facility] [address] [address] Andriy HaqUnion [facility] 06-94-6707BLO [Catalytic activity/Vol]17 U/JUqveef34-19CqiPaulding County HospitalComment on above:Performed By: #### TSH, LDH, BUN, URIC, ALT, AST ####[facility] Bcthufedzz[address] [facility] 42-18-2067ASF [Catalytic activity/Vol]16 U/LNormal9-[address] [facility]S Medical CenterComment on above:Performed By: #### TSH, LDH, BUN, URIC, ALT, AST ####[facility] Mrzywbipyw2892 [address] [facility]Gl[facility] 97-49-0062YJG8.220 uIU/mLCritically low0.470-4.680The [facility] Medical CenterComment on above:Performed By: #### TSH, LDH, BUN, URIC, ALT, AST ####[facility] Nktcnbuvkg5588 [address]H RANGESEE BELOWNormalThe [facility]'S Medical CenterComment on above: Result Comment: <0.34 UIU/ml HYPERTHYROID 0.34-5.60 UIU/ml EUTHYROID >5.60 UIU/ml HYPOTHYROIDPerformed By: #### TSH, LDH, BUN, URIC, ALT, AST ####[facility] Kccqvunron[address] KarenURIC ACID SERUMon 87-26-9986Rxlkx [Mass/Vol]3.6 mg/dLNormal2.5-6.2The [facility] Systemment on above:Performed By: #### TSH, LDH, BUN, URIC, ALT, AST ####[facility] Keordctkjg5396 [address] KarenUS PREG TVon 44-04-7104GA PREG TVEXAMINATION: US PREG TV HISTORY: Secondary physiologic amenorrhea [...] Electronically authenticated by: ANGELO BLANKENSHIP Date: 2021-01-24 10:12NoOhioHealth Berger HospitalABO AND RH TYPEon 77-65-0587EBU and Rh group Nom (Bld)ABO Rh Typing A Rh PositiveUniversity Hospitals St. John Medical CenterComment on above:Performed By: #### ABORH ####[facility] [address] [place], [place] [address]Mhqzxp KarenPREG QUANT HCGon 08-95-7768BZX MWSLG59607 mIU/mLNormalPaulding County HospitalComment on above:Result Comment: Previously reported as: 3 On 01/19/2021 11:21 By [id number] By: #### HIV12 #### [facility] [address] [address] Andriy RojasCChester RANGESEE BELOWUniversity Hospitals St. John Medical CenterComment on above:Result Comment: 5-50 0-1 WEEK 40-300 1-2 WEEKS 100-1,000 2-3 WEEKS 500-6,000 3-4 WEEKS 5,000-200,000 1-2 MONTHS 10,000-100,000 2-3 MONTHS 3,000-50,000 2ND TRIMESTER 1,000-50,000 3RD TRIMESTERPerformed By: #### HIV12 #### [facility] [address] [place], [place] [address] Andriy Stein Vital Signs Date TimeVital SignValuePerforming IsbjrudoaXhebvjzl96-69-6617 13:35-0400Body mass index (BMI) [Ratio]33.77 kg/m2Deborah RUBIN Work Phone: [facility] HospitalKqhlwgkapt75-07-7409 13:35-0400Body wtxfly55.25 kgDeborah Aquiles PA Work Phone: [phone] [place], [place] [address]Zmwfqyjkhm40-62-0389 13:35-0400Diastolic blood rhmgmgut66 mm[Hg]Deborah Kwan PA Work Phone: [phone] [place] [address]-14-2025 13:35-0400Systolic blood vgfukpuj337 mm[Hg]Deborah Kwan PA Work Phone: [phone] [place], [place] [address]Poswqjgtnu23-64-0753 11:04-0400Body mass index (BMI) [Ratio]33.77 kg/g0Wkpyrbbs Hebert SURVEILLANCE SENSOR OFFICER Work Phone: [phone] [place], [place] [address]Dgngmwztur51-19-1433 11:04-0400Body iduyot83.25 kgJem Bolivarerly SURVEILLANCE SENSOR OFFICER Work Phone: [phone] [place], [place] [address]Xteajugpii50-25-2290 11:04-0400Diastolic blood brzacqff33 mm[Hg]Jem Bolivarerly SURVEILLANCE SENSOR OFFICER Work Phone: [phone] [place], [place] [address]Ntlyhqettf78-12-6033 11:04-0400Systolic blood hyqpfoyv781 mm[Hg]Jem Bolivarerly SURVEILLANCE SENSOR OFFICER Work Phone: [phone] [place], [place] [address]Dfwimgdmuw54-72-2159 13:25-0400Body mass index (BMI) [Ratio]33.44 kg/m2Amy Mattoon PA Work Phone: [phone] [place], [place] [address]Pbgsuwcgax17-10-9726 13:25-0400Body fpgpny63.36 kgDeborah Aquiles PA Work Phone: [phone] [place], [place] [address]Iauewbhlxd60-25-2599 13:25-0400Diastolic blood csvizipp73 mm[Hg]Deborah Kwan PA Work Phone: [phone] [place] [address]-16-2025 13:25-0400Systolic blood ikaxdppd983 mm[Hg]Deborah Kwan PA Work Phone: [phone] [place], [place] [address]Ugjnvjimsu92-27-2063 15:09-0400Body mass index (BMI) [Ratio]33.3 kg/m2Deborah Kwan PA Work Phone: [phone] [place], [place] [address]Kbwcedyxqf09-04-7320 15:09-0400Body ryxgda13 kg Deborah RUBIN Work Phone: [facility] HospitalWthclsuwco94-26-0141 15:09-0400Diastolic blood qmxceghi99 mm[Hg]Deborah Kwan PA Work Phone: [facility] HospitalRyvfrtiiao98-89-9550 15:09-0400Systolic blood qqpmzfaq092 mm[Hg]Deborah Kawn PA Work Phone: [facility] HospitalTwkayglgxe75-71-6568 15:03-0400Body mass index (BMI) [Ratio]33 kg/l5Ecsoz Jenny DO Work Phone: [facility] HospitalZiwrkrzcqk25-90-2445 15:03-0400Body geifmw19.2 kg Scooby Jenny DO Work Phone: [facility] HospitalYzrvtlpmxt49-80-9532 15:03-0400Diastolic blood hsrehbmj44 mm[Hg]Scooby Jenny DO Work Phone: [facility] HospitalDnjvyyegfn62-24-1888 15:03-0400Systolic blood mm[Hg]Scooby Jenny DO Work Phone: [facility] HospitalLqvejclwwy70-87-3798 13:37-0400Body mass index (BMI) [Ratio]32.79 kg/m2Deborah Aquiles RUBIN Work Phone: [phone] [place], [place] [address]Thaabvnxim96-59-6908 13:37-0400Body byyvud54.64 kgDeborah Aquiles PA Work Phone: [facility] HospitalMyrkfgmzaw05-93-4600 13:37-0400Diastolic blood qklwdbco12 mm[Hg]Deborah Kwan PA Work Phone: [phone] [place], [place] [address]Ukmhthpypk80-59-7627 13:37-0400Systolic blood mm[Hg]Deborah Kwan PA Work Phone: [phone] [place], [place] [address]Fpjqwwsdwd00-23-3043 10:26-0400Body jlvtxi096.6 cmCorey Jenny DO Work Phone: [facility] HospitalMrluccmkzb66-93-2289 10:25-0400Body mass index (BMI) [Ratio]32.27 kg/q2Iedyu Jenny DO Work Phone: [facility] HospitalFgjfheofkr04-96-5507 10:25-0400Body gudxtm19.28 kgCorey Jenny DO Work Phone: [facility] HospitalFtssfudpbr84-15-5910 10:25-0400Diastolic blood wnqtrecs96 mm[Hg]Scooby Jenny DO Work Phone: [facility] HospitalRossrszfxe86-47-9718 10:25-0400Systolic blood ewpnnclt461 mm[Hg]Scooby Jenny DO Work Phone: [facility] HospitalXoqvasrjat74-76-4796 15:59-0400Body mass index (BMI) [Ratio]34.57 kg/k8ZmzrhkOma Davis RN Work Phone: [phone] [place], [place] [address]06-02-2025 15:59-0400Body ugigfl91.73 kgOma Davis RN Work Phone: 1([phone])396-[address] [place], [place] [address]05-22-2025 10:57-0400Body qepfua71.09 kgCorey Jenny DO Work Phone: [facility] HospitalVhdkvoyeie62-06-9321 10:57-0400Diastolic blood wdlknmvu45 mm[Hg]Scooby Jenny DO Work Phone: [facility] HospitalRjstpknbtf70-92-9700 10:57-0400Systolic blood mm[Hg]Scooby Jenny DO Work Phone: [facility] HospitalEbobglpstj29-12-4856 14:37-0400Body snoebi93.84 kgGold[facility]04-24-2025 14:37-0400Diastolic blood nldwvyyd35 mm[Hg][facility]04-24-2025 14:37-0400Systolic blood jeuyvrze709 mm[Hg][facility]01-15-2022 13:35-0500Body vmozdrbmxky07.4 [degF] Renita Canseco Other [place] [employer] Other 853632-67-3005 13:35-3939UnQ1% (BldA) [Mass fraction]98 % Renita Canseco Other [place] [employer] Other 08-28-2021 04:06-0400Body ogpvxi68.0088 kgANDARIADNA OTOOLE The [facility]S Medical CenterComment on above:Performed By: #### HIV12 #### [facility] [address] [place], [place] [address] Andriy Stein Encounters Encounter DateEncounter TypeCare ProviderFacilityStart: 04-14-2025 End: 13-45-6635Wewioy flowsheetCorey Jenny DO Work Phone: [facility]BGYNStart: 04-14-2025 End: 48-73-9917Epyseb flowsheetCorey Jenny DO Work Phone: [facility]BGYNStart: 04-07-2025 End: 35-12-4849Ufbduo flowsRocky RUBIN Work Phone: [facility] OBGYNStart: 04-07-2025 End: 85-99-4279Hvpywi flowsheetDeborah RUBIN Work Phone: [facility]BGYNStart: 04-07-2025 End: 38-51-9131Gmabyt outpatient visit 15 minutesDeborah RUBIN Work Phone: [facility] OBGYNComment on above:Third trimester ([facility]); 36 weeks gestation of ([facility])Start: 04-07-2025 End: 75-41-6562eunnjkgdfvOLH AQUILESNot AvailableStart: 03-31-2025 End: 47-13-9117Okzspgkpm Result EncounterJem Ambrosio NP Work Phone: noms External Department UnsolicitedStart: 03-31-2025 End: 92-72-0345Cedzdyxin Result EncounterJem Ambrosio SUR[employer]ILLANCE S[employer]OR OFFICER Work Phone: noms External Department UnsolicitedStart: 03-24-2025 End: 71-66-0921Yporjh flowsheetJem Ambrosio SURVEILLANCE SENSOR OFFICER Work Phone: NO [facility]BGYNStart: 03-24-2025 End: 91-55-6733Zwtinr flowsLaura Ambrosio SURVEILLANCE SENSOR OFFICER Work Phone: [facility]BGYNStart: 03-24-2025 End: 22-37-9118Jkycpj outpatient visit 15 minutesJem Ambrosio NP Work Phone: [facility] OBGYNComment on above:34 weeks gestation of ([facility]); Third trimester ([facility]); Gestational diabetes mellitus (GDM) in third trimester, gestational diabetes method of control unspecified ([facility])Start: 03-24-2025 End: 97-78-4684nknpzdtdffGQUWZDGF EBERLYNot AvailableStart: 03-20-2025 End: 50-10-6386Jijragwjt [facility] [place] [facility] Hospitaltart: 03-10-2025 End: 28-11-1318Fkradg Magdy RUBIN Work Phone: [facility]BGYNStart: 03-10-2025 End: 54-83-3573Bpqjhe Magdy RUBIN Work Phone: [facility] OBGYNStart: 03-10-2025 End: 23-98-7490Nxlpmq outpatient visit 15 minutesDeborah RUBIN Work Phone: [facility] OBGYNComment on above:32 weeks gestation of ([facility]); Third trimester ([facility])Start: 03-10-2025 End: 54-07-7442iasdovvrtsWIA RAMEYNot AvailableStart: 02-25-2025 End: 94-24-7087kusykcvlegGUA RAMEYNot AvailableStart: 02-16-2025 End: 03-40-4102lrumhwfxkjOJE RAMEYNot AvailableStart: 02-16-2025 End: 87-64-2823Tioric outpatient visit 15 minutesDeborah RUBIN Work Phone: [facility]BGYNComment on above:Size of fetus inconsistent with dates in second trimester ([facility]) (Primary Dx); 28 weeks gestation of ([facility]); Third trimester ([facility])Start: 02-16-2025 End: 09-68-8531Sttgcu Magdy RUBIN Work Phone: NO [facility] OBGYNStart: 02-16-2025 End: 02-62-6224Komffz Magdy RUBIN Work Phone: [facility] OBGYNStart: 02-13-2025 End: 38-75-4301Andflotkl Result EncounterCorey Jenny DO Work Phone: [facility] External Department UnsolicitedStart: 02-13-2025 End: 36-36-3160Rwhrkdhmc Result EncounterCorey Jenny DO Work Phone: noms External Department UnsolicitedStart: 02-02-2025 End: 11-05-5121Jmdrag outpatient visit 15 minutesCorey Jenny DO Work Phone: [facility] OBGYNComment on above:Second trimester ([facility]); 26 weeks gestation of ([facility]); Diabetes mellitus screeningStart: 02-02-2025 End: 29-32-9520vthdhvnocaRLBMI FAZIONot AvailableStart: 02-02-2025 End: 60-19-2257Vkmnmc flowsheetCorey Jenny DO Work Phone: [facility] OBGYNStart: 02-02-2025 End: 58-02-8471Mlloew flowsheetCorey Jenny DO Work Phone: [facility] OBGYNStart: 01-26-2025 End: 24-01-8632dpxbipmfliPKBIT FAZIONot AvailableStart: 01-01-2025 End: 13-70-6546Gbuxwi Magdy RUBIN Work Phone: [facility] BCP OBStart: 01-01-2025 End: 15-90-2807Evplql flowsRocky RUBIN Work Phone: [facility] BCP OBStart: 01-01-2025 End: 13-31-8173Sdzygfoy flow Michelle RUBIN Work Phone: [facility] OBComment on above:Second trimester ([facility]); 22 weeks gestation of ([facility])Start: 01-01-2025 End: 19-23-2089eswrcniegxEOJ [place] AvailableStart: 12-19-2024 End: 83-65-9043Hpjdhjeru Result EncounterCorey Jenny DO Work Phone: [facility] External Department UnsolicitedStart: 12-19-2024 End: 62-56-8807Ueejirjtu Result EncounterCorey Jenny DO Work Phone: noMS External Department UnsolicitedStart: 12-04-2024 End: 67-66-1531Mrlykd flowsheetCorey Jenny DO Work Phone: [facility] BCP OBStart: 12-04-2024 End: 22-64-1128Btrjgs flowsheetCorey Jenny DO Work Phone: [facility] BCP OBStart: 12-04-2024 End: 27-08-1514Csstldhmy Result EncounterCorey Jenny DO Work Phone: [facility] External Department UnsolicitedStart: 12-04-2024 End: 83-77-3975Cxrkpqzn Result EncounterDeborah RUBIN Work Phone: [facility] External Department UnsolicitedStart: 12-04-2024 End: 39-87-4200Diqceukzl encounterDeyarelis STAPLES Work Phone: [phone]-Xknzq Medicine at [facility] Start: 12-04-2024 End: 29-58-0603mldraovcctFZWDU FAZIONot AvailableStart: 12-04-2024 End: 34-28-7188Hvayhnm encounter procedureCorey Jenny DO Work Phone: [facility] HealthcareStart: 12-04-2024 End: 06-63-4724Komqhofb flow sheetCorey Jenny DO Work Phone: noms BCP OBComment on above:Second trimester ([facility]); 18 weeks gestation of ([facility]); Well woman exam with routine gynecological exam; Screening, , for anatomic survey ([facility]); Screen for STD (sexually transmitted disease); Need for maternal serum alpha-protein (MSAFP) screening ([facility])Start: 11-24-2024 End: 81-26-6251qktlutsetaXwtpqp M Frey RN Work Phone: [phone]-[place] Medicine at [facility] Comment on above:Gestational diabetes mellitus (GDM) in second trimester, gestational diabetes method of control unspecifiedStart: 11-13-2024 End: 90-04-8762Ynvxstno flow sheetCorey Jenny DO Work Phone: noms BCP OBComment on above:15 weeks gestation of ; Second trimester ; Diet controlled gestational diabetes mellitus (GDM), antepartum; Gestational diabetes mellitus (GDM), antepartum, gestational diabetes method of control unspecified; Elevated glucose tolerance testStart: 11-13-2024 End: 22-11-6301poeghorhadEQJLL FAZIONot AvailableStart: 11-11-2024 End: 92-03-6755Jznuazlrk Result EncounterCorey Jenny DO Work Phone: noms External Department UnsolicitedStart: 11-11-2024 End: 65-59-0394Khurripkw Result EncounterCorey Jenny DO Work Phone: noms External Department UnsolicitedStart: 10-16-2024 End: 19-54-3430Ckgsfe outpatient visit 5 minutesNoms Bcp Ob Jenny NurseNOMS BCP OBComment on above:GA: 90w5mThcbz: 10-16-2024 End: 94-00-8453pgfyjopfwfDCOBD FAZIONot AvailableStart: 12-20-2023 End: 40-90-2773hqrnepkihmID PCP NO PCPProMedica Mayur HospitalStart: 12-19-2023 End: 19-61-0911Qnjwwrgxu department patient visitAMBER [facility] Centertart: 12-19-2023 End: 05-84-6664Iirmrfgvk department patient visitNO PCP NO [facility]art: 03-01-2022 End: 28-09-6255xfjiwgzmmsFzzgmw Paco KomondFacility:[facility] Hospitaltart: 11-08-2021 End: 97-76-7836pldnvtqdfaJT SCOOBY FAZIOFacility:L2Bkivd: 08-01-2021 End: 25-91-6765zdmcwsoaozWS SCOOBY FAZIOFacility:Q7Hfsnv: 07-30-2021 End: 20-25-0507Rfgoxgdbne and management of inpatientDR SCOOBY FAZIOFacility:H1 Start: 07-13-2021 End: 43-45-9886nekqiijebyJP SCOOBY FAZIOFacility:Z0Obxhy: 07-11-2021 End: 90-71-4470umtvnrxipgTP NADIA DOOLEYFacility:X1Ofznq: 07-09-2021 End: 23-83-5228lrtujcbkhhLicux Ginty Other Shelby Airstone Other Start: 98-93-5860Anpogs outpatient visit 15 minutes Renita GintyFPG Urgent Care ClydeStart: 07-06-2021 End: 85-48-9146vdunosrsesTO SCOOBY FAZIOFacility:Z5Xlqgx: 06-20-2021 End: 90-73-6684knlwmavgjdOM NADIA DOOLEYFacility:V6Qbzju: 06-08-2021 End: 38-46-4759diojzutlvjDI SCOOBY FAZIOFacility:Q1Rvbmi: 05-04-2021 End: 95-57-8465tnnehrcddtRBSHVZ SYDNIEFacility:E0Neuzr: 04-30-2021 End: 10-00-2717oknfjjxyilETNTGI SYDNIEFacility:Y0Dfozk: 04-28-2021 End: 01-43-8991degmzuxzheJVTIBR SYDNIEFacility:P5Ygoin: 04-20-2021 End: 91-97-0360qnjpoijgbfQMBIEJ MOOREFacility:R6Kizha: 04-07-2021 End: 53-38-3587iggajkvmzgVQLLQ HIGHLANDERFacility:V7Tggwk: 03-21-2021 End: 21-85-7745xmcukjfwltHMAJKC MOOREFacility:B8Ztklj: 02-17-2021 End: 11-97-1093ioijncpcycSAHSCA MOOREFacility:G9Gxvza: 02-05-2021 End: 25-99-9203iaficqdmfyPAPWWC MOOREFacility:J8Ddrxc: 01-28-2021 End: 07-66-2605sijllmzbnzYQPTQN MOOREFacility:C6Njjxa: 01-26-2021 End: 38-19-3602vkguwaealuTMJZKX MOOREFacility:B1Ytuzq: 01-24-2021 End: 18-37-4207dpiulhgyadUUMPBL MOOREFacility:J8Tpets: 01-19-2021 End: 67-81-7713pdamtnowgqDWTSWO MOOREFacility:H1 Procedures DateProcedureProcedure DetailPerforming ClinicianStart: 06-49-4279Sfztx dip stick/tablet rgnt non-auto w/o micrscpAmy Aquiles RUBIN Work Phone: Start: 93-13-2760OC OB BPP W NON-STRESSKristina Hebert SURVEILLANCE SENSOR OFFICER Work Phone: Start: 97-70-8385Yzvnj dip stick/tablet rgnt non-auto w/o micrscpKristina Hebert SURVEILLANCE SENSOR OFFICER Work Phone: Start: 03-02-7076Joblo dip stick/tablet rgnt non-auto w/o micrscpAmy Aquiles RUBIN Work Phone: Start: 82-70-8323DAX CBC WITH AUTO DIFFCorey Jenny DO Work Phone: Start: 16-21-0263Dcetz dip stick/tablet rgnt non-auto w/o micrscpCorey Jenny DO Work Phone: Start: 86-27-3850Jrqry dip stick/tablet rgnt non-auto w/o micrscpAmy Aquiles RUBIN Work Phone: Start: 32-86-8545AR OB ANATOMYCorey Jenny DO Work Phone: Start: 31-84-4470YP OB CERVICAL LENGTHCorey Jenny DO Work Phone: Start: 12-86-8911LKXGZUVUV VAGINITIS (HTRX)Deborah RUBIN Work Phone: Start: 65-49-0035Jkamu dip stick/tablet rgnt non-auto w/o micrscpCorey Jenny DO Work Phone: Start: 71-23-2589QLF,APTIMA HPV,AGE GDLNCorey OneTouchEMR Work Phone: Start: 84-87-6242Ffzrulmbtsn observation [Identifier] in Cervix by Cyto stainCorey Jenny DO Work Phone: Start: 71-76-9845Jncgwxe quantitative blood xcpt reagent stripColleen E Elda BARRERA Work Phone: Start: 93-18-8998Fcjnw dip stick/tablet rgnt non-auto w/o micrscpCorey Jenny DO Work Phone: Start: 53-29-5422CNN TESTCorey Jenny DO Work Phone: Start: 10-16-2024 End: 53-98-1264Jflsw dip stick/tablet rgnt non-auto w/o micrscpCorey Jenny DO Work Phone: Start: 32-14-1912Wrpigonz of Products of Conception, External ApproachRENAY OTOOLEStart: 72-33-6282Dqsaqnaa of Amniotic Fluid, Therapeutic from Products of Conception, Via Natural or Artificial OpeningRENAY OTOOLEStart: 18-97-1611Bmnyiuncoiwu of Other Hormone into Peripheral Vein, Percutaneous ApproachRENAY OTOOLEStart: 74-90-2225Qsnfup Perineum Skin, External ApproachRENAY OTOOLE Plan of Treatment DateCare ActivityDetailAuthorStart: 46-30-2665OAoD,Tdap and Td Vaccines (3 - Td or Tdap)DTaP,Tdap and Td Vaccines (3 - Td or Tdap)[facility] SystemStart: 06-09-4493Uoxtfuqch for malignant neoplasm of cervixNOMS HealthcareStart: 95-70-1530Cpzbh BMI ScreeningAdult BMI ScreeningProDunlap Memorial Hospital SystemStart: 06-15-2025 End: 69-14-3065oxxfrmreid18/22/2025 9:50 AM EST Visit N[facility] Sanam BAINGYN [address] [place], [id number] Scooby Alvarado DO [address] [place] [address] NOMMyra BAINGYNStart: 04-14-2025 End: 66-69-5560Rlwnljr encounter procedureNO Sanam OBGYNComment on above: ArrivedStart: 04-07-2025 End: 20-21-9254XKOURYB, GROUP B STREP WITH SUSCEPTIBLITYCULTURE, GROUP B STREP WITH SUSCEPTIBLITY Lab Routine Third trimester ([facility]) Expected: 04/07/2025, Expires: 04/07/2026[facility] Work Phone: comment on above:Expected: 04/07/2025, Expires: 04/07/2026Start: 04-07-2025 End: 13-91-0813Stlworx encounter procedureNOMS [place] OBGYNComment on above: ArrivedStart: 03-24-2025 End: 18-77-2077VG biophysical profile w non stress testUS biophysical profile w non stress test Imaging Routine Third trimester ([facility]) Expected: 03/24/2025 (Approximate), Expires: 09/21/2025[facility] Work Phone: comment on above:Expected: 03/24/2025 (Approximate), Expires: 09/21/2025Start: 03-24-2025 End: 45-30-3253Xsocjuw encounter procedureNOMS [place] OBGYNComment on above: ArrivedStart: 03-10-2025 End: 09-93-8976Lzvvufh encounter jemadnnzt36/16/2025 1:20 PM EDT Routine [facility] [place] [facility] [address] [place], [id number] Deborah Kwan, PA [address] [place] [address] ArrivedNOMS Sanam OBGYNComment on above:ArrivedStart: 03-03-2025 End: 79-53-0725Kvlorot encounter bivzhvnfs84/09/2025 2:40 PM EDT Routine [facility] San[facility] [address] [place], [id number] Scooby Alvarado DO [address] [place] [address] NOMS [place] OBGYNStart: 02-25-2025 End: 62-65-3261Iyxqexkmjxkh / ancillary services psrpyopaxo27/03/2025 3:00 PM EDT Ancillary Procedure [facility] [place] [facility] [address] [phone] [place] OBGYNStart: 50-70-1375ZFEGS-19 Vaccine ( season)COVID-19 Vaccine ( season)[facility] Start: 98-43-1560Ardafmjca vaccinationProMedica Health SystemStart: 02-16-2025 End: 03-36-1995Velljwr encounter pbgadwnmg68/25/2025 2:30 PM EDT Routine [facility] [place] [facility] [address] [place], [id number] Deborah Kwan, PA [address] [place] [place] [address] SHERLY [place] OBGYNStart: 02-16-2025 End: 97-97-9831PP for pregnancyUS OB follow up transabdominal approach Imaging Routine Size of fetus inconsistent with dates in second trimester ([facility]) Expected: 02/16/2025, Expires: 06/18/2025[facility] Work Phone: comment on above:Expected: 02/16/2025, Expires: 06/18/2025Start: 02-02-2025 End: 00-21-4717Lzedhqb encounter procedureNOMS [facility] OBComment on above:Arrived Start: 02-02-2025 End: 10-74-7042DMF panel - Blood by Automated countCBC Lab Routine Diabetes mellitus screening Expected: 02/02/2025 (Approximate), Expires: 02/02/2026[facility] Work Phone: comment on above:Expected: 02/02/2025 (Approximate), Expires: 02/02/2026Start: 01-20-2025 End: 88-22-4524Yibvieihoqyw / ancillary services lnqaprmrfx60/29/2025 3:00 PM EDT Ancillary Procedure [facility] OB [address] [address] NOMS BCP OBStart: 01-01-2025 End: 21-03-2662Bqexsze encounter procedureNOMS [facility] OBComment on above:Arrived Start: 06-61-1730Clznkah ScreeningTobacco ScreeningProDunlap Memorial Hospital SystemStart: 67-21-7073Aasad BMI ScreeningAdult BMI ScreeningProDunlap Memorial Hospital SystemStart: 12-04-2024 End: 43-17-5355Trtwf fetoprotein, maternalAlpha fetoprotein, maternal Lab Routine Need for maternal serum alpha-protein (MSAFP) screening ([facility]) Expected: 12/04/2024 (Approximate), Expires: 01/03/2025NOMT HealthcareComment on above:Expected: 12/04/2024 (Approximate), Expires: 01/03/2025Start: 12-04-2024 End: 88-24-1762WW for pregnancyUS OB 14+ weeks anatomy scan Imaging Routine Screening, , for anatomic survey ([facility]) Expected: 12/04/2024, Expires: 03/06/2025NOMT HealthcareComment on above:Expected: 12/04/2024, Expires: 03/06/2025Start: 12-04-2024 End: 00-64-2440Cnkbrkb encounter gkeoxteeg61/12/2025 9:40 AM EDT Routine [facility] OB [address] [address] Scooby Alvarado, DO [address] [place] [address] [place] [address] NOMS BCP OBStart: 11-13-2024 End: 58-05-3749Viqicjf encounter ngnoevwkq71/22/2025 10:40 AM EDT Routine NOM[facility] BCP OB [address] [place] [address] [place] [phone] Scooby Alvarado, [address] [place] [address] NOMS BCP OBStart: 10-16-2024 End: 48-37-7376JAW/RhABO/Rh Lab Routine Missed menses , unspecified gestational age Expected: 10/16/2024 (Approximate), Expires: 10/16/2025NOMT HealthcareComment on above:Expected: 10/16/2024 (Approximate), Expires: 10/16/2025Start: 10-16-2024 End: 13-05-1549Vznzi type and Indirect antibody screen panel - BloodType and screen Lab Routine Missed menses , unspecified gestational age Expected: 10/16/2024 (Approximate), Expires: 10/16/2025[facility] Work Phone: comment on above:Expected: 10/16/2024 (Approximate), Expires: 10/16/2025Start: 10-16-2024 End: 54-02-6239Sgnfi of abuse panel - Urine by Screen methodRapid drug screen, urine Lab Routine , unspecified gestational age Encounter for supervision of normal first in first trimester Expected: 10/16/2024 (Approximate), Expires: 10/16/2025[facility] HealthcareComment on above:Expected: 10/16/2024 (Approximate), Expires: 10/16/2025Start: 24-38-2713CQYKO-19 Vaccine ( season)COVID-19 Vaccine ()[facility] Start: 48-61-2611Upggpjapb for malignant neoplasm of cervixNOMS HealthcareStart: 87-69-4697Vgalqsjjx for malignant neoplasm of cervixPap SmearPike County Memorial Hospital Start: 48-59-9462Vxtzj BMI Follow Up PlanAdult BMI Follow Up PlanWatauga Medical Centertart: 23-70-8876Ftsttinngq ScreeningDepression ScreeningCoshocton Regional Medical CenterBacteria identified in Urine by CultureUrine culture Microbiology Routine Missed menses Ordered: 10/16/2024[facility] HealthcareComment on above: Ordered: 10/16/2024BC W Auto Differential panel - BloodCBC and differential Lab Routine Missed menses , unspecified gestational age Ordered: 10/16[facility] HealthcareComment on above:Ordered: 10/16/2024HLAMYDIA TRACHOMATIS (GENITO/STI)CHLAMYDIA TRACHOMATIS (GENITO/STI) Lab Routine Screen for STD (sexually transmitted disease) Ordered: 12/04/2024[facility] HealthcareComment on above:Ordered: 12/04/2024ytology Cervical or vaginal smear or scraping studyPap Smear Pathology and Cytology Routine Well woman exam with routine gynecological exam Ordered: 12/04/2024[facility] HealthcareComment on above:Ordered: 12/04/2024 Hemoglobin A1c/Hemoglobin.total in BloodHemoglobin A1c Lab Routine Missed menses , unspecified gestational age Ordered: 10/16/2024[facility] Healthcare Comment on above:Ordered: 10/16/2024Hepatitis B virus surface Ag [Presence] in Serum or Plasma by ImmunoassayHepatitis B surface antigen Lab Routine Missed menses , unspecified gestational age Ordered: 10/16/2024[facility] Comment on above:Ordered: 10/16/2024Hepatitis C virus Ab [Presence] in Serum or Plasma by ImmunoassayHepatitis C antibody Lab Routine Missed menses , unspecified gestational age Ordered: 10/16/2024[facility] HealthcareComment on above: Ordered: 10/16/2024HIV-1/HIV-2 antigen/antibody combination immunoassayHIV-1 and HIV-2 antibodies Lab Routine Missed menses , unspecified gestational age Ordered: 10/16/2024[facility] HealthcareComment on above:Ordered: 10/16/2024Human papilloma virus DNA [Presence] in Unspecified specimen by Probe with amplificationHPV DNA probe, amplified Microbiology Routine Well woman exam with routine gynecological exam Ordered: 12/04/2024[facility] HealthcareComment on above: Ordered: 12/04/2024Neisseria gonorrhoeae DNA [Presence] in Unspecified specimen by CARLITOS with probe detectionNeisseria gonorrhea DNA probe, direct Lab Routine Screen for STD (sexually transmitted disease) Ordered: 12/04/2024[facility] Healthcare Comment on above:Ordered: 12/04/2024Reagin Ab [Presence] in Serum by RPRRPR Lab Routine Missed menses , unspecified gestational age Ordered: 10/16/2024 [facility] HealthcareComment on above:Ordered: 10/16/2024Rubella antibody, IgGRubella antibody, IgG Lab Routine Missed menses , unspecified gestational age Ordered: 10/16/2024[facility] HealthcareComment on above:Ordered: 10/16/2024 SURESWAB(R) ADVANCED VAGINITIS PLUS, TMASURESWAB(R) ADVANCED VAGINITIS PLUS, TMA Pathology and Cytology Routine Screen for STD (sexually transmitted disease) Ordered: 12/04/2024[facility] Work Phone: comment on above:Ordered: 12/04/2024 Immunizations Immunization DateImmunizationNotesCare HbixzgrqNyhmrmit91-15-4549vpljciacb virus vaccine, unspecified formulationOma Davis RN Work Phone: p[facility] Payers DatePayer CategoryPayerPolicy ID2025[facility] [place] [id number] [id number]-[id number] Care Other (unspecified)[facility] [id number] Health Insurance [facility] [id number] Health [id number] 2.840.1.214124.3.579.2.593 [id number] 840.1.592338.3.579.2.6[id number] 2.840.1.120839.3.579.2.22930-01-0108Hpgehab1131059 2.16840.1.571391.3.579.2.22863-05-7967Ggambwu8075355 2.840.1.423149.3.579.2.96446-24-8335Ltjplby2704209 2.840.1.773746.3.579.2.65742-42-5404Qsmvpix9258435 2.0.1.264150.3.579.2.85929-25-5111Rwdusxj8831085 2..1.222702.3.579.2.71898-31-6788Ukaykmf7766166 2..1.022980.3.579.2.92297-61-2378Efjwkyw4580463 2.0.1.266852.3.579.2.87559-89-1014Bptdlcc5372423 2..1.095952.3.579.2.97084-77-4271Voyiylb8568836 2..1.395714.3.579.2.73072-98-7322Shfmlvf2225519 2..1.995152.3.579.2.72631-72-4726Gotqjuu9745311 2.0.1.694222.3.579.2.99202-77-3425Jbrtcco6913211 2..1.967999.3.579.2.41605-52-2653Rsozffo2705261 2.840.1.794365.3.579.2.96443-68-8498Deomyzk0689351 2.840.1.135075.3.579.2.50107-59-2954Iuwfcfu3774553 2.16.840.1.798359.3.579.2.56024-31-2669Jfykapl9071676 2.16.840.1.651170.3.579.2.00375-25-7899Shayhhf5060825 2.840.1.919748.3.579.2.67025-86-6599Vrkfcto58279163 2.840.1.538488.3.579.2.725170-74-6679Kypzhzf34347815 2..1.480741.3.579.2.367329-08-3602Hrogbzz94012426 2.0.1.330864.3.579.2.407287-34-7352Apldzum909626040 2..1.613468.3.579.2.833684-85-5863Wmlfrhm28960976 2..1.078733.3.579.2.930248-68-6651Greckju64832947 2..1.044757.3.579.2.489171-77-6116Gbhjwxg73342861 2..1.222542.3.579.2.915966-50-3650Brlonxc42963832 2..1.841541.3.579.2.868041-34-7353Hmnloqn48115185 2..1.186227.3.579.2.330422-94-7162Qpjfxov05969003 2.0.1.924384.3.579.2.555644-28-6589Wxvnhqm71211283 2.0.1.760079.3.579.2.340814-73-6413Wuasqsn42936248 2.0.1.249179.3.579.2.980972-26-5863Gijdenv04931344 2.16.840.1.179178.3.579.2.997919-93-2870Rknopaz7855317 2.16.840.1.146335.3.579.2.979342-00-9908Qojpsjh8013186 2.16.840.1.759076.3.579.2.891666-17-5411Hbsxywd8764845 2.16.840.1.227171.3.579.2.369523-48-7157Ovdyhfm4674095943154-82-1238Fovcnyu [id number] 2.16.840.1.387798.3.579.2.531 Social History DateTypeDetailFacilityStart: 08-05-2020 End: 72-41-4529Xcx Assigned At BirthProDunlap Memorial Hospital SystemTobacco smoking status NHISTobacco smoking consumption unknownNOMS HealthcareStart: 08-12-2024 PregnancyNOMS HealthcareStart: 13-24-9799Wcm assigned at birthFemalSan Juan Hospital HealthcareStart: 33-31-5971Fvawns identityIdentifies as female gender (finding) [facility] HealthcareStart: 66-31-2801Qpfxaa orientationHeterosexual (finding)[facility] HealthcareStart: 86-45-7193Qfackqv smoking status NHISNever smoked tobacco [facility] SystemStart: 01-05-0805Nnvsalu use and exposureSmokeless tobacco non-userDayton Children's Hospital SystemStart: 77-82-6888Uwkzrkwgh beverage intakeEx-drinker (finding)[facility] SystemStart: 08-05-2020 End: 15-82-8957Sjhbdvg of Social functionProDunlap Memorial Hospital SystemStart: 10-39-3349Ioz you worried or concerned that in the next two months you may not have stable housing that you own, rent or stay in as a part of a household?No [facility] SystemStart: 96-32-8350Sal assigned at birthNot on file [facility] Centertart: 75-32-3399GfvPgtmri (finding)[facility] Medical Equipment Procedure CodeEquipment CodeEquipment Original TextEquipment IdentifierDates1 strip by In Vitro route Daily Use in the morning prior to breakfast, 1 hour after each meal for atotal of 4times daily.[id number]: 11-13-2024 End: each by In Vitro route Daily Use to check FSBS four times daily [id number]: 11-13-2024 End: 12-13-2024 Clinical Notes 07-09-2021 to 04-07-2025 Note Date & IuftVtofJsfjdhhq38-71-2694 History of Present illness Narrative* SCOTTIE Yañez - 04/07/2025 1:30 PM EDT [...] meal for a total of 4times daily. Mmsrciml-Wqg-Hr-FA ( 1 + IRON PO) Take by mouth ProFe 391.3 (180 Fe) MG capsule 1 capsule, Daily ALLERGIES Allergies[1] PROBLEMS Active Ambulatory Problems Diagnosis Date Noted 28 weeks gestation of ([facility]) 02/16/2025 Third trimester ([facility]) 02/16/2025 Resolved Ambulatory Problems Diagnosis Date Noted [...] ASSESSMENT & PLAN ICD-10-CM 1. Third trimester ([facility]) Z34.93 POCT urinalysis dipstick manually resulted CULTURE, GROUP B STREP WITH SUSCEPTIBLITY CULTURE, GROUP B STREP WITH SUSCEPTIBLITY 2. 36 weeks gestation of ([facility]) Z3A.36 Patient is doing well but has [...] surgical history on file. documented in this encounterPike County Memorial HospitalPrqjxcxktz38-41-7277 History of Present illness Narrative* Jem Ambrosio NP - 03/24/2025 10:50 AM EDT Reason for Appointment: Patient ID: Paris Mosqueda is a 34 y.o. female who presents for Routine Visit Patient presents today for Return OB appointment. MEDICATIONS Current Outpatient Medications Medication Instructions Alcohol Swabs (Alcohol Prep Pad) 70 % pads 1 Pad, Topical, Daily, Use four times daily to check FSBS. Blood Glucose Monitoring Suppl ([employer] Glucometer) w/Device kit 1 kit, Does not apply, Daily, Use four times daily to check FSBS. In the morning prior to breakfast & 1 hour after each meal for a total of 4times daily. Ipfjaynk-Fvl-Wg-FA ( 1 + IRON PO) Take by mouth ProFe 391.3 (180 Fe) MG capsule 1 capsule, Daily ALLERGIES Not on File PROBLEMS Active Ambulatory Problems Diagnosis Date Noted 28 weeks gestation of ([facility]) 02/16/2025 Third trimester ([facility]) 02/16/2025 Resolved Ambulatory Problems Diagnosis Date Noted [...] nursing note reviewed. Exam conducted with a rail grinder present. Vitals: Estimated body mass index is 33.44 kg/m as calculated from the following: Height as of 12/04/24: 5' 4 . Weight as of 03/10/25: 194 lb 12.8 oz. BP: Patient's last menstrual period was 07/29/2024 (exact date). ASSESSMENT & PLAN ICD-10-CM 1. 34 weeks gestation of ([facility]) Z3A.34 2. Third trimester ([facility]) Z34.93 US biophysical profile w non stress test POCT urinalysis dipstick manually resulted 3. Gestational diabetes mellitus (GDM) in third trimester, gestational diabetes method of control unspecified ([facility]) O24.419 Return OB: Patient presents today for a routine obstetrics appointment. Patient is currently 34w0d . Patient states she is doing well but has complaints of being tired due to current w/some pelvic pain. Patient has verbalizes frequent movement. labor precautions was discussed/given and patient was instructed to perform kick counts three times a day. She continues to send her glucose logs to [facility] and we will begin NST/BPP this week. Orders Placed This Encounter Procedures US biophysical profile w non stress test POCT urinalysis dipstick manually resulted Follow Up: Patient is to return to office in 2 week for routine OB appointment. Documented by Yane Grant MA on behalf of: Jem Ambrosio NP documented in this encounterPike County Memorial HospitalKpqzawyzdd22-49-7445 Miscellaneous Notes* Telephone Encounter - BEL Navarro - 03/20/2025 12:55 PM EDT Called patient and had to leave a voicemail. We haven't received any blood sugar logs for 4 weeks. Asked her to please send them to us or to call with questions. Left RD phone number. documented in this encounterNorth Country HospitalPunctil09-26-2025 Telephone encounter Note* Telephone Encounter - BEL Navarro - 03/20/2025 12:55 PM EDT Called patient and had to leave a voicemail. We haven't received any blood sugar logs for 4 weeks. Asked her to please send them to us or to call with questions. Left RD phone number. [facility] RehabilitationRewardli09-16-2025 History of Present illness Narrative* SCOTTIE Yañez - 03/10/2025 1:20 PM EDT Reason for Appointment: Patient ID: [...] meal for a total of 4times daily. Yzthbkts-Cjz-Pd-FA ( 1 + IRON PO) Take by mouth ProFe 391.3 (180 Fe) MG capsule 1 capsule, Daily ALLERGIES No Known Allergies PROBLEMS Active Ambulatory Problems Diagnosis Date Noted 28 weeks gestation of ([facility]) 02/16/2025 Third trimester ([facility]) 02/16/2025 Resolved Ambulatory Problems Diagnosis Date Noted [...] nursing note reviewed. Exam conducted with a rail grinder present. Vitals: Estimated body mass index is 33.44 kg/m as calculated from the following: Height as of 12/04/24: 5' 4 . Weight as of this encounter: 194 lb 12.8 oz. BP: 136/74 Patient's last menstrual period was 07/29/2024 (exact date). ASSESSMENT & PLAN ICD-10-CM 1. 32 weeks gestation of ([facility]) Z3A.32 POCT urinalysis dipstick manually resulted 2. Third trimester ([facility]) Z34.93 POCT urinalysis dipstick manually resulted Return [...] behalf of: SCOTTIE Yañez documented in this encounterPike County Memorial HospitalRrznpmqabb85-62-4995 History of Present illness Narrative* SCOTTIE Yañez - 02/16/2025 2:30 PM EDT Reason for Appointment: Patient ID: Paris Mosqueda is a 34 y.o. female who presents for Routine Visit Patient presents today for Return OB appointment. MEDICATIONS Current Outpatient Medications Medication Instructions Alcohol Swabs (Alcohol Prep Pad) 70 % pads 1 Pad, Topical, Daily, Use four times daily to check FSBS. Blood Glucose Monitoring Suppl (D-The Combine Glucometer) w/Device kit 1 kit, Does not apply, Daily, Use four times daily to check FSBS. In the morning prior to breakfast & 1 hour after each meal for a total of 4times daily. [id number] ( 1 + IRON PO) Take by mouth ProFe 391.3 (180 Fe) MG capsule 1 capsule, Daily ALLERGIES No Known Allergies PROBLEMS Active Ambulatory Problems Diagnosis Date Noted 28 weeks gestation of ([facility]) 02/16/2025 Third trimester ([facility]) 02/16/2025 Resolved Ambulatory Problems Diagnosis Date Noted [...] nursing note reviewed. Exam conducted with a rail grinder present. Vitals: Estimated body mass index is 33.3 kg/m as calculated from the following: Height as of 12/04/24: 5' 4 . Weight as of this encounter: 194 lb. BP: 128/72 Patient's last menstrual period was 07/29/2024 (exact date). ASSESSMENT & PLAN ICD-10-CM 1. Size of fetus inconsistent with dates in second trimester ([facility]) O26.842 US OB follow up transabdominal approach 2. 28 weeks gestation of ([facility]) Z3A.28 CANCELED: CBC and differential 3. Third trimester ([facility]) Z34.93 Return OB: Patient presents today for [...] behalf of: SCOTTIE Yañez documented in this encounterPike County Memorial HospitalTbefgyagzw93-11-0469 History of Present illness Narrative* Jem Ambrosio NP - 02/02/2025 2:50 PM EDT Reason for Appointment: Patient ID: Paris Mosqueda is a 34 y.o. female who presents for Routine Visit Patient presents today for Return OB appointment. MEDICATIONS Current Outpatient Medications Medication Instructions Alcohol Swabs (Alcohol Prep Pad) 70 % pads 1 Pad, Topical, Daily, Use four times daily to check FSBS. Blood Glucose Monitoring Suppl ([employer] Glucometer) w/Device kit 1 kit, Does not apply, Daily, Use four times daily to check FSBS. In the morning prior to breakfast & 1 hour after each meal for a total of 4times daily. Egcqcdus-Qmx-Ey-FA ( 1 + IRON PO) Take by [...] nursing note reviewed. Exam conducted with a rail grinder present. Vitals: Estimated body mass index is 33 kg/m as calculated from the following: Height as of 25: 5' 4 . Weight as of this encounter: 192 lb 4 oz. BP: 136/78 Patient's last menstrual period was 07/29/2024 (exact date). ASSESSMENT & PLAN ICD-10-CM 1. Second trimester ([facility]) Z34.92 POCT urinalysis dipstick manually resulted 2. 26 weeks gestation of ([facility]) Z3A.26 3. Diabetes mellitus screening Z13.1 CBC [...] glucose log and completed Diabetic education through [facility]. Documented by Jem Ambrosio NP on behalf of: Scooby Alvarado DO documented in this encounterPike County Memorial HospitalVcdnlnnmgf28-66-7834 History of Present illness Narrative* SCOTTIE Yañez - 01/01/2025 1:30 PM EDT Reason for Appointment: Patient [...] meal for a total of 4times daily. Xgryyocf-Zcz-Yk-FA ( 1 + IRON PO) Take by [...] & PLAN ICD-10-CM 1. Second trimester ([facility]) Z34.92 POCT urinalysis dipstick manually resulted 2. 22 weeks gestation of ([facility]) Z3A.22 Return OB: Patient presents today for [...] behalf of: SCOTTIE Yañez documented in this encounterPike County Memorial HospitalTsrdsuwsrs26-49-9393 Miscellaneous Notes* Telephone Encounter - BEL Anderson - 12/04/2024 [...] have questions you can call me at [phone]. Please continue to send in blood sugars weekly. I will also send a MyChart message. documented in this encounterNorth Country HospitalPunctil06-12-2025 Telephone encounter Note* Telephone Encounter - BEL Anderson - 12/04/2024 [...] have questions you can call me at [phone]. Please continue to send in blood sugars weekly. I will also send a MyChart message. [facility] RehabilitationRewardli Work Phone: 1(316) 816-779206-12-2025 History of Present illness Narrative* Yane Grant MA - 12/04/2024 9:40 AM EDT Reason for Appointment: Patient ID: Paris Mosqueda is a 34 y.o. female who presents for Routine Visit Patient presents today for Return OB appointment. MEDICATIONS Current Outpatient Medications Medication Instructions Alcohol Swabs (Alcohol Prep Pad) 70 % pads 1 Pad, Topical, Daily, Use four times daily to check FSBS. Blood Glucose Monitoring Suppl ([employer] Glucometer) w/Device kit 1 kit, Does not [...] Use to check FSBS four times daily Okzmuvwo-Oik-Wn-FA ( 1 + IRON PO) Take by [...] nursing note reviewed. Exam conducted with a rail grinder present. Vitals: There is no height or weight on file to calculate BMI. BP: 118/72 Patient's last menstrual period was 07/29/2024 (exact date). ASSESSMENT & PLAN ICD-10-CM 1. Second trimester ([facility]) Z34.92 POCT urinalysis dipstick manually resulted 2. 18 weeks gestation of ([facility]) Z3A.18 3. Well woman exam with routine gynecological exam Z01.419 Pap Smear HPV DNA probe, amplified 4. Screening, , for anatomic survey ([facility]) Z36.89 US OB 14+ weeks anatomy scan 5. Screen for STD (sexually transmitted disease) Z11.3 SURESWAB(R) ADVANCED VAGINITIS PLUS, TMA CHLAMYDIA TRACHOMATIS (GENITO/STI) Neisseria gonorrhea DNA probe, direct 6. Need for maternal serum alpha-protein (MSAFP) screening ([facility]) Z36.1 Alpha fetoprotein, maternal Alpha fetoprotein, maternal [...] of: Scooby Alvarado DO documented in this encounterPike County Memorial HospitalZvtwktoxkp76-98-4899 Group counseling note* Group Note - Chinyere Martinez RD - [...] Face to face time was 85 minutes. Guang Lian Shi Dai Work Phone: 1(576) 988-117406-02-2025 Miscellaneous Notes* Group Note - Chinyere Martinez RD - [...] time was 85 minutes. documented in this encounterLakeHealth Beachwood Medical CenterTugg Yfoilt76-75-0980 History of Present illness Narrative* Wendy Ulloa, GRINDING WHEEL FACER - 11/13/2024 10:40 AM EDT Reason for Appointment: Patient ID: Paris Mosqueda is a 34 y.o. female who presents for Routine Visit Patient presents today for Return OB appointment. MEDICATIONS Current Outpatient Medications Medication Instructions Alcohol Swabs (Alcohol Prep Pad) 70 % pads 1 Pad, Topical, Daily, Use four times daily to check FSBS. Blood Glucose Monitoring Suppl ([employer] Glucometer) w/Device kit 1 kit, Does not [...] Use to check FSBS four times daily Gajwzjhe-Cce-Au-FA ( 1 + IRON PO) Take by [...] nursing note reviewed. Exam conducted with a rail grinder present. Vitals: There is no height or [...] or undercooked meat, and stay away from [facility]. Patient has been consulted regarding any further do's and don'tsof . Patient voiced understanding and all questions and concerns were answered. Orders Placed This Encounter Procedures POCT urinalysis dipstick manually resulted Discussed with patient her recent A1c results and patient aware that referral will be sent to [facility] for Diabetic Education and monitoring. PVU and supplies sent to pharmacy for patient to pickup and take with her to her referral appointment. Follow Up: Patient is to return in 4 weeks for routine OB appointment. Documented by Wendy Ulloa LPN on behalf of: Scooby Alvarado DO documented in this encounterPike County Memorial HospitalIpelwjcjjm60-72-6234 History of Present illness Narrative* Faye Tyler MA - 10/16/2024 1:30 PM EDT Reason for Appointment: Patient ID: Paris Mosqueda is a 34 y.o. female who presents for No chief complaint on file. Patient presents today for a Nurse OB Intake appointment. Patient is 11w2d with a Estimated Date ofDelivery: 05/05/25 OB History Para Term AB Living [...] drink 6-8 glasses of water a day, eatno raw or undercooked meat, and stay away from [facility]. Patient has also been advised to not change litter boxes and eat 6 small meals a day. Patient has been consulted regarding the do's and don'ts ofpregnancy. Patient was given labs and all questions [...] by: Faye Tyler MA documented in this encounterPike County Memorial HospitalGtsaawsqsj56-63-0596 Evaluation note* Encounter Date Diagnosis Assessment Notes Treatment Notes Treatment Clinical Notes Jun, Contact with and (wilkes spected) exposure to other viral communicable diseases (ICD-10 [...] treatment plan. Patient left in stable condition Jun,Viral URI (ICD-10 - J06.9) Jun,ore throat (ICD-10 - J02.9) Jun,2OtherAdditional time spent conducting pre-visit phone call, screening for symptoms, instructions on social distancing, application and removal of PPE, and cleaning of examination room, equipment and supplies was preformed. Patient education given for testing methodology and results. Patient care instructions given in writting by [facility] Care At Home document [facility] Other Evaluation note* Diagnosis Missed menses Missed [...] of control unspecified documented [facility] this encounter [facility]* Diagnosis Second trimester ([facility]) state, incidental 18 weeks gestation of ([facility]) Well woman exam with routine gynecological exam Routine gynecological examination Screening, , for anatomic survey ([facility]) Encounter for anatomic survey Screen for STD (sexually transmitted disease) Screening examination for venereal disease Need for maternal serum alpha-protein (MSAFP) screening ([facility]) documented [facility] encounter [facility]* Diagnosis Second trimester ([facility]) state, incidental 22 weeks gestation of ([facility]) documented in this encounter [facility]* Diagnosis Second trimester ([facility]) state, incidental 26 weeks gestation of ([facility]) Diabetes mellitus screening Screening for diabetes mellitus documented in this encounter [facility]* Diagnosis Size of fetus inconsistent with dates in second trimester ([facility])- Primary 28 weeks gestation of ([facility]) Third trimester ([facility]) state, incidental documented in this encounter [facility]* Diagnosis 32 weeks gestation of ([facility]) Third trimester ([facility]) state, incidental documented [facility]* Diagnosis 34 weeks gestation of ([facility]) Third trimester ([facility]) state, incidental Gestational diabetes mellitus (GDM) in third trimester, gestational diabetes method of control unspecified ([facility]) documented [facility] this encounter [facility]* Diagnosis Third trimester ([facility]) state, incidental 36 weeks gestation of ([facility]) documented in this encounter [facility] HealthcareInstructionsNot on filedocumented in this encounterProMedica Health SystemInstructionsNot on filedocumented in this encounterProDunlap Memorial Hospital System Summary Purpose Family History No Family History Records FoundNo Family History Records FoundNo Family History Records FoundNo Family History Records FoundNo Family History Records Found Advance Directives Date ActivatedDate InactivatedComments12/20/2023 11:13 PM12/21/2023 1:46 PM Additional Source Comments INFORMATION SOURCE (unrecogn ized section and content) DATE CREATED AUTHOR 11/17/2021 [facility] DATE CREATED AUTHOR AUTHOR'S ORGANIZ ATION 03/24/[address] [facility] DATE CREATED AUTHOR AUTHOR'S ORGANIZ ATION 12/29/2023 [facility] DATE CREATED AUTHOR AUTHOR'S ORGANIZ ATION 11/25/2024 [facility] DATE CREATED AUTHOR AUTHOR'S ORGANIZ ATION 04/09/2025 [facility] EPIC REASON FOR VISIT (unrecogniz ed section and content) ReasonCommentsAmenorrheaReasonCommentsRoutine VisitReasonComments Gestational DiabetesSpecialtyDiagnoses / ProceduresReferred By ContactReferred To ContactMaternal and Medicine Diagnoses Gestational diabetes mellitus (GDM) in second trimester, gestational diabetes method of control unspecified Scooby Alvarado, DO [address] [place] [address] Phone: tel: fax: Maternal- Medicine at [facility] [address] [place] [address] Phone: tel: fax: Referral IDStatusReasonStart DateExpiration DateVisits RequestedVisits [id number] Review Specialty Services Required Care Teams (unrecognized sec tion and content) Team MemberRelationshipSpecialtyStart DateEnd Date No Pcp, [place] [address] [facility] Medicine12/19/23Team MemberRelationshipSpecialtyStart DateEnd Date No Pcp, [place] [address] PCP - [facility] Medicine12/19/23Team MemberRelationshipSpecialtyStart DateEnd Date No Pcp, [place] [address] PCP - [facility]Franc[facility] Medicine12/19/23 FOR RECORDS PERTAINING TO PATIENTS WHO ARE [...] BE BASED ON THE PRIMARY CLINICAL RECORDS. [employer] provides no warranty or guarantee of the accuracy or completeness of information in this document.
[2025-04-14 11:59] VITALS: BP 133/73; PULSE 81
--- NOTE | 2025-04-14 12:13 | US_ITS ---
The [address] [address] Patient Name: PRISCILLA BLAND MRN: [id number] date: 1990 Sex: F Assigned Patient Location: Current Patient Location: Accession/Order Number: [id number] Exam Date: 04/14/2025 12:15 Report Date: 04/14/2025 14:31 At the request of: JEM MCCABE Procedure: US OB BPP w non-stress BIOPHYSICAL PROFILE: CLINICAL INFORMATION: Gestational diabetes mellitus COMPARISON: 04/07/2025 There is a single live intrauterine gestation in cephalic presentation. The reported gestational age is 37 weeks 0 days. The heart rate measures 150 beats per minute. FINDINGS: TONE: 1 or more episodes of activity extension and flexion of extremity or opening and closing of the hand [Y] 2/2 GROSS BODY MOVEMENTS: 3 or more discrete body or limb movements [Y] 2/2 BREATHING MOVEMENTS: 1 or more episodes of breathing lasting at least 30 seconds [Y] 2/2 JEANNINE: A single deepest vertical pocket of amniotic fluid greater than 2 cm [Y] 2/2 JEANNINE: 9.24 cm The 5th percentile is 7.5 cm. Total score: 8/8 US/ OB BPP w non-stress IMPRESSION: NORMAL BIOPHYSICAL PROFILE Impression dictated by: Sarita Evangelista M.D. 04/14/2025 2:31 PM Dictation Location: [place] [address] Electronically authenticated by: [id number] Y Date: 04/14/2025 14:31
== END 2025-04-14 12:40 | disposition home or self-care (01) ==
LOC: US 11:52 → FBC 11:54
PROVIDERS: Visit Provider Nurse Practitioner Family
DX: O24.419 Gestational diabetes mellitus in pregnancy, unspecified control (principal); Z3A.37 37 weeks gestation of pregnancy
CPT/HCPCS: 76818

== ENCOUNTER 2025-04-17 09:58 | Outpatient (OUT) | payer MEDICAID, SELFPAY ==
--- OUTSIDE RECORDS SUMMARY | 2025-04-07 13:30 | XMS_ITS | Encounter Summary ---
Author Organization [facility] Address [address] [place] [address] Care Team Providers Care Laminate Floor Installer Name Role Phone Unavailable Primary Care Provider Unavailabl e Reason for Visit * ReasonCommentsRoutine Visit Encounter Details DateTypeDepartmentCare Team (Latest Contact Info)Cahohahwitc59/14/2025 1:30 PM EDTRoutine [facility] [address] [place] [phone] Deborah Kwan PA [address] [place], [facility]11 Third trimester ([facility]); 36 weeks gestation of ([facility]) Social History Tobacco UseTypesPacks/DayYears UsedDateSmoking Tobacco: Never Assessed Estimated Date of LiuttzbxSsakrpxrVfi24/11/2025Based on last menstrual period of 07/29/2024 (Exact Date)Sex and Gender InformationValueDate RecordedSex Assigned at YosbgZioblx67/03/2024 9:38 AM ESTLegal CjcDkknue82/15/2023 6:47 PM EDTGender CylxcbvfWxznii60/03/2024 9:38 AM ESTSexual OoeleskfuqaFcueeawn10/03/2024 9:38 AM ESTdocumented as of this encounter Last Filed Vital Signs Vital SignReadingTime TakenCommentsBlood Debplonk693/7004/07/2025 1:35 PM EDT Pulse--Temperature--Respiratory Rate--Oxygen Saturation--Inhaled Oxygen Concentration--Hrvins58.2 kg (196 lb 12 oz)04/07/2025 1:35 PM EDTHeight--Body Mass Index33.7706 10:26 AM EDTdocumented in this encounter Progress Notes * SCOTTIE Yañez - 04/07/2025 1:30 PM EDT Reason for Appointment: Patient ID: Paris Mosqueda is a 34 y.o. female who presents for Routine Visit Patient presents today for Return OB appointment. MEDICATIONS Current Outpatient Medications Medication Instructions Alcohol Swabs (Alcohol Prep Pad) 70 % pads 1 Pad, Topical, Daily, Use four times daily to check FSBS. Blood Glucose Monitoring Suppl ([employer] Glucometer) w/Device kit 1 kit, Does not apply, Daily, Use four times daily to check FSBS. In the morning prior to breakfast & 1 hour after each meal for a total of 4times daily. Gxbqbeep-Lsy-Sb-FA ( 1 + IRON PO) Take by mouth ProFe 391.3 (180 Fe) MG capsule 1 capsule, Daily ALLERGIES Allergies[1] PROBLEMS Active Ambulatory Problems Diagnosis Date Noted 28 weeks gestation of ([facility]) 02/16/2025 Third trimester ([facility]) 02/16/2025 Resolved Ambulatory Problems Diagnosis Date Noted No Resolved Ambulatory Problems Past Medical History: Diagnosis Date Constipation Left foot pain Stress fracture of left foot HISTORY PAST MEDICAL HISTORY SOCIAL HISTORY Medical History[2] Social History Tobacco Use Smoking status: Not on file Smokeless tobacco: Not on file Substance Use Topics Alcohol use: Not on file Drug use: Not on file FAMILY HISTORY Family History[3] SURGICAL HISTORY Surgical History[4] REVIEW OF SYSTEMS Review of Systems: Review of Systems Constitutional: Negative. HENT: Negative. Eyes: Negative. Respiratory: Negative. Cardiovascular: Negative. Gastrointestinal: Negative. Genitourinary: Negative. Musculoskeletal: Negative. Skin: Negative. Neurological: Negative. All other systems reviewed and are negative. Hematological: Negative. Endocrine: Negative. Allergic/Immunologic: Negative. OBJECTIVE Objective: Physical Exam Constitutional: Appearance: Normal appearance. She is normal weight. HENT: Head: Normocephalic. Cardiovascular: Rate and Rhythm: Normal rate. Pulses: Normal pulses. Pulmonary: Effort: Pulmonary effort is normal. Breath sounds: Normal breath sounds. Abdominal: Palpations: Abdomen is soft. Musculoskeletal: General: Normal range of motion. Neurological: General: No focal deficit present. Mental Status: She is alert and oriented to person, place, and time. Psychiatric: Mood and Affect: Mood normal. Behavior: Behavior normal. Thought Content: Thought content normal. Judgment: Judgment normal. Vitals and nursing note reviewed. Vitals: Estimated body mass index is 33.77 kg/m?? as calculated from the following: Height as of 12/04/24: 5' 4 . Weight as of this encounter: 196 lb 12 oz. BP: 126/70 Patient's last menstrual period was 07/29/2024 (exact date). ASSESSMENT & PLAN ICD-10-CM 1. Third trimester ([facility]) Z34.93 POCT urinalysis dipstick manually resulted CULTURE, GROUP B STREP WITH SUSCEPTIBLITY CULTURE, GROUP B STREP WITH SUSCEPTIBLITY 2. 36 weeks gestation of ([facility]) Z3A.36 Patient is doing well but has complaints of being tired and having maternal discomfort due to . Patient verbalized frequent movement and was instructed to perform kick counts three times per day. labor precautions were given, LARC consent was signed/declined, and GBS was obtained. Cervical check was performed and patient is 0cm dilated. Orders Placed This Encounter Procedures CULTURE, GROUP B STREP WITH SUSCEPTIBLITY POCT urinalysis dipstick manually resulted Follow Up: Patient is to return to office in 1 week for routine OB appointment Documented by SCOTTIE Yañez on behalf of: SCOTTIE Yañez [1] No Known Allergies [2] Past Medical History: Diagnosis Date Constipation Left foot pain Stress fracture of left foot [3] Family History Problem Relation Name Age of Onset Diabetes Mother Hypertension Mother Diabetes Father Hypertension Other Diabetes Other Depression Other Hyperlipidemia Other [4] No past surgical history on file. documented in this encounter Plan of Treatment DateTypeDepartmentCare Team (Latest Contact Info)Fiatlegbnzp04/28/2025 2:20 PM EDTRoutine [facility] [address] [place] [phone] Deborah Kwan PA [address] [place] [address] 06/15/2025 9:50 AM ESTPostpartum Visit [facility] [address] [address] Scooby Alvarado DO [address] [place] [address] NameTypePriorityAssociated DiagnosesOrder ScheduleCULTURE, GROUP B STREP WITH SUSCEPTIBLITYLabRoutine Third trimester ([facility]) Expected: 04/07/2025, Expires: 04/07/2026documented as of this encounter Procedures Procedure NamePriorityDate/TimeAssociated DiagnosisCommentsPOCT URINALYSIS FXYWNOKHQgyecmz25/14/2025 1:41 PM EDT Third trimester ([facility]) documented in this encounter Results * POCT urinalysis dipstick manually resulted (04/07/2025 1:41 PM EDT)Component ValueRef RangeTest MethodAnalysis TimePerformed AtPathologist SignatureColor, UAYellowClarity, UAClearGlucose, UANegativeNegative - 2000(110) ++++ mg/dL Bilirubin, UANegativeNegative - 4(70) +++ mg/dLKetones, UANegativeNegative - 160(16) ++++ mg/dLSpec Grav, UA1.0101 - 1.03Blood, UANegativeNegative - 50 Celestino/mcLpH, UA6.05 - 9Protein, UANegativeNegative - 2000(20) ++++ mg/dL Urobilinogen, UA0.20.2 - 12 mg/dLLeukocytes, UANegativeNegative - 500+++ Dodie/mcLNitrite, UANegativeNegative - PositiveSpecimen (Source)Anatomical Location / LateralityCollection Method / VolumeCollection TimeReceived Time Urine04/07/2025 1:41 PM EDT Narrative Authorizing ProviderResult TypeResult StatusPage [facility] TEST ENTER/EDIT ORDERABLESFinal Result documented in this encounter Visit Diagnoses Diagnosis Third trimester ([facility]) state, incidental 36 weeks gestation of ([facility]) documented in this encounter
--- OUTSIDE RECORDS SUMMARY | 2025-04-14 11:10 | XMS_ITS | Encounter Summary ---
Author Organization [facility] Address [address] [place] [address] Care Team Providers Care Floor Covering Printer Name Role Phone Unavailable Primary Care Provider Unavailabl e Reason for Visit * ReasonCommentsRoutine Visit Encounter Details DateTypeDepartmentCare Team (Latest Contact Info)Bkyuqphljzw86/21/2025 11:10 AM EDTRoutine [facility] [address] [phone] Scooby Alvarado DO [address] [place] [address] Third trimester ([facility]); 37 weeks gestation of ([facility]) Social History Tobacco UseTypesPacks/DayYears UsedDateSmoking Tobacco: Never Assessed Estimated Date of RcfacqpmRzludzhkGxn23/11/2025Based on last menstrual period of 07/29/2024 (Exact Date)Sex and Gender InformationValueDate RecordedSex Assigned at TzdivYyhcgm37/03/2024 9:38 AM ESTLegal HfmJvceeo79/15/2023 6:47 PM EDTGender XgepuwtsLfcgbe72/03/2024 9:38 AM ESTSexual FmbiqheqvxmTpaoxzgj56/03/2024 9:38 AM ESTdocumented as of this encounter Last Filed Vital Signs Vital SignReadingTime TakenCommentsBlood Izwxwfkc992/7810 11:06 AM EDT Pulse--Temperature--Respiratory Rate--Oxygen Saturation--Inhaled Oxygen Concentration--Vyfpcy39.1 kg (200 lb 12.8 oz)04/14/2025 11:06 AM EDTHeight--Body Mass Index34.4706 10:26 AM EDTdocumented in this encounter Progress Notes * Sarita Wan, TELEVISION CAMERA OPERATOR - 04/14/2025 11:10 AM EDT Reason for Appointment: Patient ID: Paris Mosqueda is a 34 y.o. female who presents for Routine Visit Patient presents today for Return OB appointment. MEDICATIONS Current Outpatient Medications Medication Instructions Alcohol Swabs (Alcohol Prep Pad) 70 % pads 1 Pad, Topical, Daily, Use four times daily to check FSBS. Blood Glucose Monitoring Suppl ([employer] Glucometer) w/Device kit 1 kit, Does not apply, Daily, Use four times daily to check FSBS. In the morning prior to breakfast & 1 hour after each meal for a total of 4times daily. Wzbnldns-Qmj-Yo-FA ( 1 + IRON PO) Take by mouth ProFe 391.3 (180 Fe) MG capsule 1 capsule, Daily ALLERGIES No Known Allergies PROBLEMS Active Ambulatory Problems Diagnosis Date Noted 28 weeks gestation of ([facility]) 02/16/2025 Third trimester ([facility]) 02/16/2025 Resolved Ambulatory Problems Diagnosis Date Noted [...] nursing note reviewed. Exam conducted with a waste water plant operator present. Vitals: Estimated body mass index is 34.47 kg/m?? as calculated from the following: Height as of 25: 5' 4 . Weight as of this encounter: 200 lb 12.8 oz. BP: 130/78 Patient's last menstrual period was 07/29/2024 (exact date). Assessment/Plan ICD-10-CM 1. Third trimester ([facility]) Z34.93 2. 37 weeks gestation of ([facility]) Z3A.37 POCT urinalysis dipstick manually resulted Return [...] Plan of Treatment DateTypeDepartmentCare Team (Latest Contact Info)Kxlqsrdilsj88/28/2025 2:20 PM EDTRoutine [facility] [address] [phone] Deborah Kwan PA [address] [place] [address] 06/15/2025 9:50 AM ESTPostpartum Visit [facility] [address] [facility] [address] Scooby Alvarado DO [address] [place] [address] documented as of this encounter Procedures Procedure NamePriorityDate/TimeAssociated DiagnosisCommentsPOCT URINALYSIS ZBZCKVFJWvfztvy72/21/2025 11:12 AM EDT 37 weeks gestation of ([facility]) documented in this encounter Results * (ABNORMAL) [...] this encounter Visit Diagnoses Diagnosis Third trimester ([facility]) state, incidental 37 weeks gestation of ([facility]) documented in this encounter
--- OUTSIDE RECORDS SUMMARY | 2025-04-17 10:01 | XMS_ITS | Clinical Summary ---
Author Organization [facility] Socialtyze [facility] tem Address [id number] [address] [place] [address] Care Team Providers Care Single Needle Operator Name Role Phone No Pcp, No Pcp Primary Care Provider Unavailabl e Allergies No known active allergies Medications MedicationSigDispense QuantityRefillsLast FilledStart DateEnd DateStatus norgestimate-ethinyl estradioL (ORTHO-CYCLEN) 0.25-35 mg-mcg per tablet Indications:Encounter for contraceptive management, unspecified typeTake 1 tablet by mouth daily. 56 tablet Active Active Problems ProblemNoted DateDiagnosed SmruAfcxcavfdgz62/27/2024Estimated Date of OunkhgblUdcllxsgIyk47/11/2025Based on last menstrual period of 07/29/2024 Encounters DateTypeDepartmentCare FyjhFkrlbjgpjse97/26/2025Telephone Maternal- Medicine at [facility] [address] [facility] [place] [place] [phone] Amanda Putnam LD from Last 3 Months Family History Medical HistoryRelationNameCommentsDiabetesFatherDiabetesMotherHypertension MotherRelationNameStatusCommentsFatherMotherAlive Social History Tobacco UseTypesPacks/DayYears UsedDateSmoking Tobacco: NeverSmokeless Tobacco: NeverAlcohol UseStandard Drinks/WeekCommentsNot Currently0 (1 standard drink = 0.6 oz pure alcohol)Housing InstabilityAnswerDate RecordedAre you worried or concerned that in the next two months you may not have stable housing that you own, rent or stay in as a part of a household?No4ChildcareAnswerDate NobajadmBoeldzjzdMyruleh00/12/2019EmploymentAnswerDate RecordedEmploymentUnknown 12/04/2018Hunger ScreeningAnswerDate RecordedWithin the past 12 months we worried whether our food would run out before we got money to buy more.Never True12/20/2023Within the past 12 months the food we bought just didn't last and we didn't have money to get more.Never True4Purpose - LifeAnswerDate RecordedPurpose and direction in gemiMyebhoy37/11/2021Estimated Date of DdhymlvbLedusccqMtt26/11/2025Based on last menstrual period of 07/29/2024Sex and Gender InformationValueDate RecordedSex Assigned at BirthNot on fileLegal Sex Fagshu1501/28/2015 11:48 AM EDTGender IdentityNot on fileSexual OrientationNot on file Last Filed Vital Signs Vital SignReadingTime TakenCommentsBlood Vglfudhg537/6006 9:47 AM EDT Mwgdm290612/21/2023 9:47 AM WJBJvzijeuqtvw22.7 ??C (98.1 ??F)12/21/2023 9:47 AM EDTRespiratory Incb472412/21/2023 9:47 AM EDTOxygen Kgshmboqtz86%12/20/2023 10:15 PM EDTInhaled Oxygen Concentration--Phxfxw61.7 kg (189 lb)11/24/2024 3:59 PM EDT Abhweh773.5 cm (5' 2 )12/20/2023 7:47 PM EDTBody Mass Index34.57012/20/2023 7:47 PM EDT Plan of Treatment Health MaintenanceDue DateLast DoneCommentsDepression Jcycjyzro99/10/2004Pap Smear2012Tobacco Kevygvlzo59/28//4COVID-19 Vaccine ( season)5008/15/2021, 12/16/2020, 11/16/2020Influenza Vaccine 510/04/2024, 04/25/2023, 04/01/2022, Additional history existsAdult BMI Zjavraogw42/02/15119611/24/2024DTaP,Tdap and Td Vaccines (3 - Td or Tdap) /, 07/11/2021 Medical Devices Not on file Insurance Advance Directives * Full Code (Latest Code Status on File) Date ActivatedDate InactivatedComments12/20/2023 11:13 PM12/21/2023 1:46 PM Care Teams Team MemberRelationshipSpecialtyStart DateEnd Date No Pcp, [place] [address] PCP - GeneralFamily Medicine12/19/23
--- OUTSIDE RECORDS SUMMARY | 2025-04-17 10:01 | XMS_ITS ---
Author Organization [facility] Healthcare Address [address] [place] [address] Care Team Providers Care Naval Engineer Name Role Phone Unavailable Primary Care Provider Unavailabl e Comprehensive Maternal Care (CMC) Status:Declined (Declined) Start date:04/09/2025 Enrollment date:04/16/2025 Enrollment reason:Identified by Health Plan End date:04/16/2025 Decline reason:Patient declined Continued Care and Services Coordination
--- OUTSIDE RECORDS SUMMARY | 2025-04-17 10:01 | XMS_ITS | Encounter Summary ---
Author Organization [facility] Address [address] [place] [address] Care Team Providers Care Field Service Analyst Name Role Phone Unavailable Primary Care Provider Unavailabl e Encounter Details DateTypeDepartmentCare Team (Latest Contact Info)Mdsywolqejk07/14/2025amboo flowsheet NOMMyra MARES [address] [place] [address] Deborah Kwan PA [address] [place] [address] Dr [place], [place] [address] Social History Tobacco UseTypesPacks/DayYears UsedDateSmoking Tobacco: Never Assessed Estimated Date of IpknzjiiZnhlorfiCxn57/11/2025Based on last menstrual period of 07/29/2024 (Exact Date)Sex and Gender InformationValueDate RecordedSex Assigned at WzqciBcqmny01/03/2024 9:38 AM ESTLegal ZkdWrkzfv42/15/2023 6:47 PM EDTGender HvubcrvzPvjthk26/03/2024 9:38 AM ESTSexual HbnnbodpygaXttxkwfx98/03/2024 9:38 AM ESTdocumented as of this encounter Plan of Treatment DateTypeDepartmentCare Team (Latest Contact Info)Rewcnbniupx37/28/2025 2:20 PM EDTRoutine NOMS Sanam MARES [address] [place] [address] Deborah Kwan, PA [address] [place] [address] Dr [place], [facility] 06/15/2025 9:50 AM ESTPostpartum Visit NOM[facility] Sanam MARES [address] [place] [address] Scooby Alvarado DO [address] [place] [address] documented as of this encounter Visit Diagnoses Not on filedocumented in this encounter
--- OUTSIDE RECORDS SUMMARY | 2025-04-17 10:01 | XMS_ITS | Encounter Summary ---
Author Organization [facility] Address [address] [place] [address] Care Team Providers Care Manager Apple Name Role Phone Unavailable Primary Care Provider Unavailabl e Encounter Details DateTypeDepartmentCare Team (Latest Contact Info)Hcrttkjchfj17/21/2025Travel Social History Tobacco UseTypesPacks/DayYears UsedDateSmoking Tobacco: Never Assessed Estimated Date of WmvngouuVegydyjrGuh63/11/2025Based on last menstrual period of 07/29/2024 (Exact Date)Sex and Gender InformationValueDate RecordedSex Assigned at QksfpPtpynw89/03/2024 9:38 AM ESTLegal NckDbidxh42/15/2023 6:47 PM EDTGender PauibrgsPftndj76/03/2024 9:38 AM ESTSexual UiarrryetuqCahmrcvv93/03/2024 9:38 AM ESTdocumented as of this encounter Plan of Treatment DateTypeDepartmentCare Team (Latest Contact Info)Vthiyokaixv34/28/2025 2:20 PM EDTRoutine NOMMarlene MARES [address] [facility] [place] [address] Deborah Kwan PA [address] [facility] [address] [place], [facility]11 06/15/2025 9:50 AM ESTPostpartum Visit SHERLY MARES [address] [facility] [place] [address] Scooby Alvarado DO [address] [place] [address] documented as of this encounter Visit Diagnoses Not on filedocumented in this encounter
--- OUTSIDE RECORDS SUMMARY | 2025-04-17 10:01 | XMS_ITS | Encounter Summary ---
Author Organization [facility] Address [address] [place] [address] Care Team Providers Care Chairlift Operator Name Role Phone Unavailable Primary Care Provider Unavailabl e Encounter Details DateTypeDepartmentCare Team (Latest Contact Info)Lrrwcptxidg96/21/2025amboo flowsheet NOMMyra MARES [address] [place] [address] Scooby Alvarado DO [address] [facility], [facility] Social History Tobacco UseTypesPacks/DayYears UsedDateSmoking Tobacco: Never Assessed Estimated Date of DuguvklmOgsyuiviPdr03/11/2025Based on last menstrual period of 07/29/2024 (Exact Date)Sex and Gender InformationValueDate RecordedSex Assigned at KdsbaFcmltj74/03/2024 9:38 AM ESTLegal TidDakucx54/15/2023 6:47 PM EDTGender OdbvjhtwDvxjuq18/03/2024 9:38 AM ESTSexual WjebqfkrlpqFqopsjuq90/03/2024 9:38 AM ESTdocumented as of this encounter Plan of Treatment DateTypeDepartmentCare Team (Latest Contact Info)Acncoucdmey19/28/2025 2:20 PM EDTRoutine NOMS Sanam MARES [address] [place] [address] Deborah Kwan PA [address] [facility] [address] [place], [facility]11 06/15/2025 9:50 AM ESTPostpartum Visit [facility] Sanam MARES [address] [place] [address] Scooby Alvarado DO [address] [place] [address] [place] [address] documented as of this encounter Visit Diagnoses Not on filedocumented in this encounter
--- OUTSIDE RECORDS SUMMARY | 2025-04-17 10:01 | XMS_ITS | Encounter Summary ---
Author Organization [facility] Healthcare Address [address] [place] [address] Care Team Providers Care Hand Router Operator Name Role Phone Unavailable Primary Care Provider Unavailabl e Encounter Details DateTypeDepartmentCare Team (Latest Contact Info)Dunzsayxamu62/23/2025Patient Outreach [facility] [address] [place] [address] Deborah Jones LPN [address] [place] [address] Social History Tobacco UseTypesPacks/DayYears UsedDateSmoking Tobacco: Never Assessed Estimated Date of ZqovpkujBpsapobuNcd00/11/2025Based on last menstrual period of 07/29/2024 (Exact Date)Sex and Gender InformationValueDate RecordedSex Assigned at UjrirCqevci69/03/2024 9:38 AM ESTLegal RqaHpeifg21/15/2023 6:47 PM EDTGender WmjjixciYtfmno56/03/2024 9:38 AM ESTSexual IcpivmllnniXodhqgdz01/03/2024 9:38 AM ESTdocumented as of this encounter Progress Notes * Deborah Jones LPN - 04/16/2025 10:32 AM EDT Initial Call. Pt declined outreach. documented in this encounter Plan of Treatment DateTypeDepartmentCare Team (Latest Contact Info)Lypyurdyntx89/ 2:20 PM EDTRoutine NOMMyra MARES [address] [place] [phone] Deborah Kwan PA [address] [place], [place] [address] 06/15/2025 9:50 AM ESTPostpartum Visit SHERLY MARES [address] [place] [address] Scooby Alvarado DO [address] [place], [place] [id number] documented as of this encounter Visit Diagnoses Not on filedocumented in this encounter
--- OUTSIDE RECORDS SUMMARY | 2025-04-17 10:01 | XMS_ITS | Clinical Summary ---
Author Organization [facility] Healthcare Address [address] [place] [address] Care Team Providers Care Water Sander Name Role Phone Unavailable Primary Care Provider Unavailabl e Allergies No known active allergies Medications MedicationSigDispense QuantityRefillsLast FilledStart DateEnd DateStatus Zbibqgqn-Usc-Vw-FA ( 1 + IRON PO) Take by mouthActive Alcohol Swabs (Alcohol Prep Pad) 70 % pads Indications:Gestational diabetes mellitus (GDM), antepartum, gestational diabetes method of control unspecified([facility]),Elevated glucose tolerance test Apply 1 Pad topically Daily Use four times daily to check FSBS. 150 each tive Blood Glucose Monitoring Suppl (D-Care Glucometer) w/Device kit Indications:Gestational diabetes mellitus (GDM), antepartum, gestational diabetes method of control unspecified([facility]),Elevated glucose tolerance test1 kit Daily Use four times daily to check FSBS. In the morning prior to breakfast & 1 hour after each meal for a total of 4times daily. 1 kit ctive ProFe 391.3 (180 Fe) MG capsule Take 1 capsule by mouth Daily02/04/2024ctive Active Problems ProblemNoted DateDiagnosed Date28 weeks gestation of ([facility]) 02/16/2025Third trimester ([facility])02/16/2025Estimated Date of FixlujmwQbyccexlBkb12/11/2025Based on last menstrual period of 07/29/2024 (Exact Date) Encounters DateTypeDepartmentCare ZusxNtrnarscroj99/23/2025Patient Outreach [facility] [address] [address] Deborah Jones LPN 04/14/2025 11:10 AM EDTRoutine [facility] Sanam MARES [address] [place] [address] Scooby Alvarado DO Third trimester ([facility]); 37 weeks gestation of ([facility])04/14/20258390Hldhyy75/21/2025amboo flowsheet [facility] Sanam OBBONIN [address] [place] [address] [place] [address] Scooby Alvarado DO 04/07/2025 1:30 PM EDTRoutine NOMS Sanam MENCHACAN [address] [place] [address] Deborah Kwan PA Third trimester ([facility]); 36 weeks gestation of ([facility])04/07/2025amboo flowsheet NOMS Sanam MARES [address] [place] [address] [place] [address] Deborah Kwan PA 03/31/2025linisync Result Encounter NOMS External Department Unsolicited Krys Ambrosio NP 03/24/2025 10:50 AM EDTRoutine NOMS Sanam MARES [address] [place] [address] [place] [address] Krys Ambrosio NP 34 weeks gestation of ([facility]); Third trimester ([facility]); Gestational diabetes mellitus (GDM) in third trimester, gestational diabetes method of control unspecified ([facility])03/24/2025amb flowsheet NOMS Sanam MENCHACAN [address] [place] [address] [place] [address] Krys Ambrosio NP 03/24/20258874Ugerti99/26/2025Abstract [facility] Sanam MARES [address] [place] [address] [place] [address] Scooby Alvarado DO 03/20/2025bstract [facility]OMS Sanam OBGYN [address] [place] [address] Scooby Alvarado DO 03/10/2025 1:20 PM EDTRoutine NOMS Sanam OBGYN [address] [place] [address] Deborah Kwan PA 32 weeks gestation of ([facility]); Third trimester ([facility])03/10/20253689Gfqgqt86/16/2025amboo flowsheet NOMS Sanam OBGYN [address] [place] [address] Deborah Kwan PA 02/25/2025 3:00 PM EDTAncillary Procedure [facility]OM[facility] Sanam OBGYN [address] [place] [address] Size of fetus inconsistent with dates in second trimester ([facility])02/25/2025 Kmlsvz9102/16/2025 2:30 PM EDTRoutine NOMS Sanam OBGYN [address] [place] [address] Deborah Kwan PA Size of fetus inconsistent with dates in second trimester ([facility]) (Primary Dx); 28 weeks gestation of ([facility]); Third trimester ([facility])02/16/2025amb flowsheet NOMS Sanam [facility] [address] [place] [address] Deborah Kwan PA 02/16/20250570Pbdzjn52/22/2025linisync Result Encounter NOMS External Department Unsolicited Scooby Alvarado DO 02/02/2025 2:50 PM EDTRoutine NOMS Sanam [facility] [address] [place] [address] Scooby Alvarado, Second trimester ([facility]); 26 weeks gestation of ([facility]); Diabetes mellitus lerntjtaz59/11/2025amboo flowsheet NOMS Sanam OBBONIN [address] [place] [address] Scooby Alvarado DO 02/02/20257375Mibeak89/04/2025 3:00 PM EDTAncillary Procedure NOMS Sanam OBGYN [address] [place] [address] Encounter for follow-up ultrasound of anatomy ([facility])01/26/2025Travel from Last 3 Months Family History Medical HistoryRelationNameCommentsDiabetesFatherDiabetesMotherHypertension MotherDepressionOtherDiabetesOtherHyperlipidemiaOtherHypertensionOtherRelation NameStatusCommentsFatherMotherOther Social History Tobacco UseTypesPacks/DayYears UsedDateSmoking Tobacco: Never Assessed Estimated Date of JgcxhcejAllqahksQsj54/11/2025ased on last menstrual period of 07/29/2024 (Exact Date)Sex and Gender InformationValueDate RecordedSex Assigned at NzntmPwmjce84/03/2024 9:38 AM ESTLegal YykGtcxrv69/15/2023 6:47 PM EDTGender ZrtgkspgGqyzmp11/03/2024 9:38 AM ESTSexual DimaxznmtroJaphjpcs97/03/2024 9:38 AM EST Last Filed Vital Signs Vital SignReadingTime TakenCommentsBlood Hrawhoxy470/7804/14/2025 11:06 AM EDT Pulse--Temperature--Respiratory Rate--Oxygen Saturation--Inhaled Oxygen Concentration--Hmgbcd76.1 kg (200 lb 12.8 oz)04/14/2025 11:06 AM NVFMjesfb106.6 cm (5' 4 )12/04/2024 10:26 AM EDTBody Mass Index34.47012/04/2024 10:26 AM EDT Plan of Treatment DateTypeDepartmentCare Team (Latest Contact Info)Ruyrdayyuyp63/28/2025 2:20 PM EDTRoutine NOMS Sanam OBCED [address] [place] [address] Deborah Kwan PA [address] [place], [place] [address] 06/15/2025 9:50 AM ESTPostpartum Visit NOMS Sanam [facility] [address] [place] [address] Scooby Alvarado, DO [address] [place], [place] [address] Health MaintenanceDue DateLast DoneCommentsInfluenza Vaccine (#1)02/23/2025 04/04/2024, 04/25/2023, 04/01/2022, Additional history existsCervical Cancer Lvsibwaeo25/12/2030HPV/Knhrzs6512/04/2029Pap Smear Procedures Procedure NamePriorityDate/TimeAssociated DiagnosisCommentsPOCT URINALYSIS XZQUMEPPSnixhxp79/21/2025 11:12 AM EDT 37 weeks gestation of ([facility]) POCT URINALYSIS AYAYKDUTIawshhi69/14/2025 1:41 PM EDT Third trimester ([facility]) US OB BPP W NON-URUVTW0403/31/2025 5:44 PM EDT POCT URINALYSIS PMEPLTUUMxrjxuh41/30/2025 11:11 AM EDT Third trimester ([facility]) POCT URINALYSIS WZYFQZVNOywmtnd75/16/2025 1:32 PM EDT 32 weeks gestation of ([facility]) Third trimester ([facility]) US OB FOLLOW UP TRANSABDOMINAL VUBZPUEJAbvceyh87/03/2025 3:22 PM EDT Size of fetus inconsistent with dates in second trimester ([facility]) ALL CBC WITH AUTO OTRWZjptvxn36/22/2025 7:06 AM EDT POCT URINALYSIS QQRPRZIIXfbapxh00/11/2025 3:06 PM EDT Second trimester ([facility]) US OB LIMITED 1+ BRJXNPBRtsermw74/04/2025 3:47 PM EDT Encounter for follow-up ultrasound of anatomy ([facility]) PAP YITSVHwonsls00/12/2025 12:00 AM EDTfrom Last 3 Months or [...] Location / LateralityCollection Method / VolumeCollection TimeReceived EpszGsdio65/21/2025 11:12 AM EDT Narrative Authorizing ProviderResult TypeResult StatusCorey Jenny DOPOINT OF CARE TEST ENTER/EDIT ORDERABLESFinal Result * US OB BPP W NON-STRESS (03/31/2025 5:44 PM EDT)Anatomical Region LateralityModalityOtherSpecimen (Source)Anatomical Location / Laterality Collection Method / VolumeCollection TimeReceived Time03/31/2025 5:44 PM EDT Narrative 03/31/2025 5:47 PM EDT [facility] ?[address] ? [place] [address] ? Ultrasound Report ? Signed ? Patient: MOSQUEDA,PRISCILLA ? MR#: [id number] ?? : 1990 ?Acct:[id number] ?? Age/Sex: 34 / F ?ADM Date: 10/07/25 ?? Loc: US ? Attending Dr: Krys Ambrosio ? Ordering Physician: Krys Ambrosio ?? Date of Service: 03/31/25 ?? Procedure(s): US OB BPP w non-stress ?? Accession Number(s): [id number] ? cc: Krys Ambrosio; [facility] ? [facility] ? [address] ? [place] [address] ? Patient Name: ?? PRISCILLA ??MOSQUEDA ? MRN: [facility]:[id number] ? date: 1990 ?Sex: F ?? Assigned Patient Location: [facility] ?? Current Patient Location: ? Accession/Order Number: [id number] ?? Exam Date: 03/31/2025 ??12:57 ?Report Date: [...] M.D. ??03/31/2025 5:44 PM ? Dictation Location: [facility]-- ? Electronically authenticated by: [id number] ??Y ?? Date: 03/31/2025 ??17:44 ? Dictated By: ?Nito Chong M.D. ? Signed By: ?03/31/25 1747 ? DD/ 1744 ? TD/TT: ? Ged Teacher: Procedure Note Radiology, Radiologist, MD - 03/31/2025 [facility] [place] [id number] Ultrasound Report Signed Patient: PRISCILLA MOSQUEDA#: [id number] : 1990Acct:[id number] Age/Sex: 34 / FADM Date: 03/31/25 Loc: [place] Attending Dr: Krys Ambrosio Ordering Physician: Krys Ambrosio Date of Service: 03/31/25 Procedure(s): US OB BPP w non-stress Accession Number(s): [id number] cc: Krsy Ambrosio; [address] [address] Patient Name: PRISCILLA MOSQUEDA MRN: [facility]:[id number] date: 1990 Sex: F Assigned Patient Location: [facility] Current Patient Location: Accession/Order Number: [id number] Exam Date: 03/31/2025 12:57 Report Date: 03/31/2025 17:44 At the request of: KRYS AMBROSIO Procedure: US OB BPP w non-stress Ultrasound biophysical profile INDICATION: Gestational diabetes FINDINGS/ IMPRESSION: Cephalic position. 8/ 8 score biophysical profile.JEANNINE measures 7.9 cm which is borderline oligohydramnios. heart rate 152 beats per minutes. Impression dictated by: Nito Chong M.D. 03/31/2025 5:44 PM Dictation Location: [place] [address] Electronically authenticated by: [id number] Y Date: 7:44 Dictated By: Nito Chong M.D. Signed By:03/31/251746 DD/ 43 TD/TT: Ged Teacher: Authorizing ProviderResult TypeResult StatusKrys Ambrosio NPCLINISYNC IMAGING [...] - 35.2 g/dLTBHTBH RDW15.011.0 - 15.0 %TBHTBH [id number] - 450 10 3/uLTBHTBH MPV10.09.5 - 13.5 [...] DOCLINISYNCFinal Result Performing OrganizationAddressCity/State/ZIP CodePhone Number [facility] * US OB limited 1+ fetuses (01/26/2025 [...] BY: Logan Caal MD Authorizing ProviderResult TypeResult StatusCoreascencion Alvarado [facility] OB US PROCEDURES Final Result * Pap Smear (12/04/2024 12:00 AM EDT)Specimen (Source)Anatomical Location / LateralityCollection Method / VolumeCollection TimeReceived TimeSwabCervical swab / Unknown Narrative Authorizing ProviderResult TypeResult StatusCorey Jenny DOLAB CYTOLOGY ORDERABLESFinal ResultPerforming OrganizationAddressCity/State/ZIP CodePhone Number EXTERNAL LAB from Last 3 Months or Most Recently Relevant to Health Maintenance Insurance
[2025-04-17 10:02] VITALS: BP 124/68; PULSE 74
--- OUTSIDE RECORDS SUMMARY | 2025-04-17 10:05 | XMS_ITS | CCD ---
Author Organization [facility] Care Team Providers Care Military Science Instructor Name Role Phone RENAY OTOOLE Attending [...] DR NONE LISTED Primary Care Unavaila ble HIGHLTYRONE, NAT Consulting Unavailable SYDNIE, RENAY Admitting Unavailable [...] Primary Care Unavailable SCOOBY ALVARADO Attending Unavailable DEBORAH KWAN Attending Unavailable JEM AMBROSIO Attending Unavailable AQUILES, DEBORAH Attending Unavailable AQUILES, DEBORAH Referring Unavailable DEBORAH KWAN Attending Unavailable SCOOBY ALVARADO Attending Unavailable DEBORAH KWAN Attending Unavailable SCOOBY ALVARADO Attending Unavailable SCOOBY ALVARADO Attending Unavailable Medications Current Medications MedicationDrug Class(es)DatesSig (Normalized)Sig (Original)Blood Glucose Monitoring Suppl (D-Care Glucometer) w/Device kit (20 sources)Start: 11-13-2024 End: 09-48-8020Tuldi Glucose Monitoring Suppl (D-Care Glucometer) w/Device kit Indications: Gestational diabetes mellitus (GDM), antepartum, gestational diabetes method of control unspecified ([facility]) , Elevated glucose tolerance test 1 kit Daily Use four times daily to check FSBS. In the morning prior to breakfast & 1 hour after each meal for a total of 4times daily. 1 kit 11/13/2024 11/13/2025 ActiveStart: 11-13-2024 End: 56-78-3568Ysuqf Glucose Monitoring Suppl (D-Care Glucometer) w/Device kit Indications: Gestational diabetes mellitus (GDM), antepartum, gestational diabetes method of control unspecified , Elevated glucose tolerance test 1 kit Daily Use four times daily to check FSBS. In the morning prior to breakfast & 1 hour after each meal for a total of 4times daily. 1 kit 11/13/2024 11/13/2025 ActiveEthinyl Estradiol / norgestimate (3 sources)Progestin, EstrogenStart: 28-99-0230pyce 1 tablet by mouth once daily norgestimate-ethinyl estradioL (ORTHO-CYCLEN) 0.25-35 mg-mcg per tablet Indications: Encounter for contraceptive management, unspecified type Take 1 tablet by mouth daily. 56 tablet 1 05/11/2020 Activeisopropyl alcohol 0.7 ml/ml medicated pad (20 sources)Start: 24-06-2129Qahucup Swabs (Alcohol Prep Pad) 70 % pads Indications: Gestational diabetes mellitus (GDM), antepartum, gestational diabetes method of control unspecified ([facility]) , Elevated glucose tolerance testApply 1 Pad topically Daily Use four times daily to check FSBS. 150 each 3 11/13/2024 Activepolysaccharide iron complex 391 mg oral capsule (20 sources)Start: 68-95-9219sdlf 1 capsule by mouth once dailyProFe 391.3 (180 Fe) MG capsule Take 1 capsule by mouth Daily 02/04/2024 ActivePrenatal Uiwyjzwm-Ujy-Al-FA ( 1 + IRON PO) (20 sources) Yxjpwvss-Epn-Kg-FA ( 1 + IRON PO) Take by mouth Active Problems Active Problems Problem ClassificationProblemDateDocumented DateEpisodic/ChronicAbdominal pain (1 source)Abdominal painOnset: 57-58-3027VpsmhdiwIjmkee of cervix (1 source)Low grade squamous intraepithelial lesion on cytologic smear of cervix (LGSIL); Translations: [LGSIL ON CYTOLOGIC SMEAR OF CERVIX]Onset: 11-11-2021 EpisodicDiabetes mellitus without complication (6 sources)Other abnormal glucose; Translations: [Abnormal glucose tolerance test]Onset: 03-81-5233FbzitvwwWnbxgxbv or abnormal glucose tolerance complicating ; childbirth; or the puerperium (8 sources)Gestational diabetes mellitus, class A>1<; Translations: [Gestational diabetes mellitus in , diet controlled]Onset: EpisodicHemorrhage during ; abruptio placenta; placenta previa (1 source)Antepartum hemorrhage, unspecified, unspecified trimester; Translations: [Antepartum hemorrhage, unspecified, unspecified trimester]Onset: 90-19-3304PqvucimyMesxcvefsbcfr and screening for infectious disease (3 sources)Contact with and (suspected) exposure to other viral communicable diseases; Translations: [Patient encounter status]Onset: 07-09-2021 Resolved: 97-68-4275KhcywudwYfkalwbdr disorders (6 sources)Secondary amenorrhea; Translations: [Missed period]Onset: 01-28-2021 ChronicOther complications of ; puerperium affecting management of mother (3 sources)Obesity complicating childbirth; Translations: [OBESITY COMPLICATING CHILDBIRTH]Onset: 77-95-4488YefmclwAyoit complications of (4 sources)Anemia complicating , unspecified trimester; Translations: [ANEMIA COMP UNS TRIMESTER]Onset: 34-49-5627SaybiniVuuwz complications of (2 sources) size does not accord with dates; Translations: [Uterine size- date discrepancy, second trimester]99-62-4679IeygphwtUkrwf female genital disorders (1 source)Vaginal bleedingOnset: 03-79-6864DkogtiyFyqgn nutritional; endocrine; and metabolic disorders (1 source)Obesity, unspecified; Translations: [OBESITY UNSPECIFIED]Onset: 37-60-2168VtjhqrkBclmm and delivery including normal (20 sources)Encounter for routine follow-up; Translations: [Single live ]Onset: 69-75-7700NvvnhqdwDdpwc screening for suspected conditions (not mental disorders or infectious disease) (14 sources)Encounter for screening for malignant neoplasm of cervix; Translations: [Encounter for screening, unspecified]Onset: 31-38-3754Sjiwbkaj Residual codes; unclassified (1 source)High risk heterosexual behavior; Translations: [High risk heterosexual behavior]Onset: 19-68-2547DxcxkkdoQnyskksr codes; unclassified (2 sources)Gestation period, 15 weeks; Translations: [15 weeks gestation of ]38-68-5255JxeksnkjIeqygtxy codes; unclassified (2 sources)Gestation period, 18 weeks; Translations: [18 weeks gestation of ]48-67-5999FijaufcjRwwqxxgu codes; unclassified (2 sources)Gestation period, 22 weeks; Translations: [22 weeks gestation of ]65-98-9595XgjbobbgWpdsyscb codes; unclassified (2 sources)Gestation period, 26 weeks; Translations: [26 weeks gestation of ]93-44-2270HsextxasShbenetd codes; unclassified (17 sources)Gestation period, 28 weeks; Translations: [28 weeks gestation of ]Onset: 168532-88-2360IwhyrdykPsncwfch codes; unclassified (2 sources)Gestation period, 32 weeks; Translations: [32 weeks gestation of ]14-77-8679GwwpziewGxvvjgga codes; unclassified (2 sources)Gestation period, 34 weeks; Translations: [34 weeks gestation of ]64-34-5520ZmzaigjsUzuvjrsa codes; unclassified (2 sources)Gestation period, 36 weeks; Translations: [36 weeks gestation of ]25-34-2330XtoevensXlqzdseh codes; unclassified (2 sources)Gestation period, 37 weeks; Translations: [37 weeks gestation of ]28-79-8581VeadqfumLueelzzhvae; intervertebral disc disorders; other back problems (1 source)BackacheOnset: 78-90-9695TosqpsypMaesvmdowuup (1 source)CONTACT W/AND (SUSP) EXPOS COVID-19; Translations: [CONTACT W/AND (SUSP) EXPOS COVID-19]Onset: 11-42-5863Sjarqjnisdex (1 source)Vaginal Bleeding - 7wks pregOnset: 12-19-2023 Past or Other Problems Problem ClassificationProblemDateDocumented DateEpisodic/ChronicDeficiency and other anemia (1 source)Anemia, unspecified; Translations: [ANEMIA UNSPECIFIED]Onset: 90-65-3496CfiogngqLO-related trauma to perineum and vulva (1 source)Other specified trauma to perineum and vulva; Translations: [OTHER SPEC TRAUMA PERINEUM AND VULVA]Onset: 29-22-0075RvpdaqesTljhe complications of (1 source)Maternal care for other known or suspected poor growth, third trimester, not applicable or unspecified; Translations: [MAT CARE OTH MO FTL GRTH 3RD TM UNS]Onset: 86-30-3274FategwwpCfibr complications of (4 sources)Decreased movements, third trimester, not applicable or unspecified; Translations: [DECR MOVEMENTS 3RD TRI NA/UNS]Onset: 98-35-6597QvccbdjtFgkez complications of (4 sources)Supervision of other high risk pregnancies, third trimester; Translations: [SUP OTH HIGH RISK 3RD TRI]Onset: 51-05-2818Wbkmaifb Other complications of (4 sources)Other specified related conditions, unspecified trimester; Translations: [OTH SPEC PREG RELATED COND UNS TRI]Onset: 76-59-7470VkdwswvvUwrim complications of (4 sources)Supervision of other high risk pregnancies, unspecified trimester; Translations: [SUP OTH HIGH RISKPREGNANCY UNS TRI]Onset: 92-60-7483WgzdmmltIwztl female genital disorders (1 source)Other specified noninflammatory disorders of vagina; Translations: [OTH SPEC NONINFLAMMATORY D/O VAGINA]Onset: 72-23-3118VqeekpekLrojr upper respiratory infections (2 sources)Acute upper respiratory infection, unspecified; Translations: [Acute pharyngitis, unspecified]Onset: 07-09-2021 Resolved: 23-96-7771SqkwjfdaAzokodia codes; unclassified (1 source)39 weeks gestation of ; Translations: [39 WEEKS GESTATION OF ]Onset: 39-26-0550XfmtfrvyPvrapxyk codes; unclassified (1 source)36 weeks gestation of ; Translations: [36 WEEKS GESTATION OF ]Onset: 22-38-9177VepdquzbHljmdtzw codes; unclassified (1 source)34 weeks gestation of ; Translations: [34 WEEKS GESTATION OF ]Onset: 84-74-3069IfqngqfdTzvmhfjz codes; unclassified (1 source)35 weeks gestation of ; Translations: [35 WEEKS GESTATION OF ]Onset: 15-91-0624MvdtjogaDdifxtty codes; unclassified (1 source)33 weeks gestation of ; Translations: [33 WEEKS GESTATION OF ]Onset: 12-09-6245XaimflygMpgpgawr codes; unclassified (1 source)Weeks of gestation of not specified; Translations: [WEEKS GESTATION NOT SPEC]Onset: 99-72-1887TswskovkCsmselri codes; unclassified (1 source)24 weeks gestation of ; Translations: [24 WEEKS GESTATION OF ]Onset: 18-42-4639NszfgfiaDmlymzoy codes; unclassified (4 sources)16 weeks gestation of ; Translations: [16 WEEKS GESTATION OF ]Onset: 97-94-5551LlomapqkPmyfyepuibi (4 sources)Complete or unspecified spontaneous without complication; Translations: [Miscarriage]Onset: 723438-23-7517Jnxdkzst Results Test NameValueInterpretationReference RangeFacilityUrinalysis macro (dipstick) panel (U)on 57-47-9397Seweglbrs, UA2+Negative - 4(70) +++ mg/dLNOMS Healthcare Blood, UANegativeNegative - 50 Celestino/mcLNOMS HealthcareClarity, UAClearNOMS HealthcareColor, UAYellowNOMS HealthcareGlucose, UANegativeNegative - 2000(110) ++++ mg/dLNONJ HealthcareInterpretation and review of laboratory resultsAbnormal NOMS HealthcareKetones, UAPositiveNegative - 160(16) ++++ mg/dLNOMS Healthcare Leukocytes, UA3+Negative - 500+++ Doide/mcLNOMS HealthcareNitrite, UANegative Negative - PositiveNOMS HealthcarepH, UA6.05 - 9NOMS HealthcareProtein, UA1+ Negative - 2000(20) ++++ mg/dLNOMS HealthcareSpec Grav, UA1.0251 - 1.03NOMS HealthcareUrobilinogen, UA>=8.00.2 - 12 mg/dLNOMS HealthcareNOMS Healthcare Urinalysis macro (dipstick) panel (U)on 41-32-0570Rokhkxhog, UANegativeNegative - 4(70) +++ mg/dLNOMS HealthcareBlood, UANegativeNegative - 50 Celestino/mcLNOMS HealthcareClarity, UAClearNOMS HealthcareColor, UAYellowNOMS HealthcareGlucose, UANegativeNegative - 2000(110) ++++ mg/dLNOMS HealthcareInterpretation and review of laboratory resultsNormalNOMS HealthcareKetones, UANegativeNegative - 160(16) ++++ mg/dLNOMS HealthcareLeukocytes, UANegativeNegative - 500+++ Dodie/mcL NOMS HealthcareNitrite, UANegativeNegative - PositiveNOMS HealthcarepH, UA6.05 - 9NOMS HealthcareProtein, UANegativeNegative - 2000(20) ++++ mg/dLNOMS HealthcareSpec Grav, UA1.0101 - 1.03NOMS HealthcareUrobilinogen, UA0.20.2 - 12 mg/dLNOMS HealthcareNOMS HealthcareUS OB BPP W NON-STRESSon 49-53-3725[place]ay[place] [address] Ultrasound Report Signed Patient: PARIS MOSQUEDA MR#: [id number] : 1990 Acct:[id number] Age/Sex: 34 / F ADM Date: 03/31/25 Loc: US Attending Dr: Jem Ambrosio Ordering Physician: Jem Ambrosio Date of Service: 03/31/25 Procedure(s): US OB BPP w non-stress Accession Number(s): [id number] cc: Jem Ambrosio; [place] [id number] Patient Name: PARIS MOSQUEDA MRN: [facility]:[id number] date: 1990 Sex: F Assigned Patient Location: [facility] Current Patient Location: Accession/Order Number: [id number] Exam Date: 03/31/2025 12:57 Report Date: 03/31/2025 17:44 At the request of: JEM AMBROSIO Procedure: US OB BPP w non-stress Ultrasound biophysical profile INDICATION: Gestational diabetes FINDINGS/ IMPRESSION: Cephalic position. 8/ 8 score biophysical profile. JEANNINE measures 7.9 cm which is borderline oligohydramnios. heart rate 152 beats per minutes. Impression dictated by: Nito Chong M.D. 03/31/2025 5:44 PM Dictation Location: [place] [address] Electronically authenticated by: [id number] Y Date: 03/31/2025 17:44 Dictated By: Nito Chong M.D. Signed By: 03/31/251746 DD/ 174 TD/TT: Automotive Assembler:GHADAHRadiology, Radiologist, MD - 03/31/2025 [place] [address] Ultrasound Report Signed Patient: PARIS MOSQUEDA MR#: [id number] : 1990 Acct:[id number] Age/Sex: 34 / F ADM Date: 03/31/25 Loc: US Attending Dr: Jem Ambrosio Ordering Physician: Jem Ambrosio Date of Service: 03/31/25 Procedure(s): US OB BPP w non-stress Accession Number(s): [id number] cc: Jem Ambrosio; [place] [id number] Patient Name: PARIS MOSQUEDA MRN: [facility]:[id number] date: 1990 Sex: F Assigned Patient Location: [facility] Current Patient Location: Accession/Order Number: [id number] Exam Date: 03/31/2025 12:57 Report Date: 03/31/2025 17:44 At the request of: JEM AMBROSIO Procedure: US OB BPP w non-stress Ultrasound biophysical profile INDICATION: Gestational diabetes FINDINGS/ IMPRESSION: Cephalic position. 8/ 8 score biophysical profile. JEANNINE measures 7.9 cm which is borderline oligohydramnios. heart rate 152 beats per minutes. Impression dictated by: Nito Chong M.D. 03/31/2025 5:44 PM Dictation Location: [facility] Electronically authenticated by: [id number] Y Date: 03/31/2025 17:44 Dictated By: Nito Chong M.D. Signed By: 03/31/251746 DD/ 43 TD/TT: Automotive Assembler: SHERLY HealthcareRadiology Study observation (narrative)NOMS HealthcareUS OB BPP W NON-STRESSOrdered By: Radiologist Radiology on 09-54-3020XADP Healthcare Work Phone: Urinalysis macro (dipstick) panel (U)on 03-24-2025 Bilirubin, UANegativeNegative - 4(70) +++ mg/dLNOMS HealthcareBlood, UANegative Negative - 50 Celestino/mcLNOMS HealthcareClarity, UAClearNOMS HealthcareColor, UA YellowNOMS HealthcareGlucose, UANegativeNegative - 2000(110) ++++ mg/dLNOMS HealthcareInterpretation and review of laboratory resultsAbnormalNOMS Healthcare Ketones, UANegativeNegative - 160(16) ++++ mg/dLNOMS HealthcareLeukocytes, UA TraceNegative - 500+++ Dodie/mcLNOMS HealthcareNitrite, UANegativeNegative - PositiveNOMS HealthcarepH, UA65 - 9NOMS HealthcareProtein, UATraceNegative - 2000(20) ++++ mg/dLNOMS HealthcareSpec Grav, UA1.021 - 1.03N[facility] Urobilinogen, UA2.00.2 - 12 mg/dLNOMS HealthcareNOMS HealthcareUrinalysis macro (dipstick) panel (U)on 63-99-1089Ntanhjiig, UAPositiveNegative - 4(70) +++ mg/dL NOMS HealthcareBlood, UAPositiveNegative - 50 Celestino/mcLNOMS HealthcareClarity, UA ClearNOMS HealthcareColor, UAAmberNOMS HealthcareGlucose, UANegativeNegative - 2000(110) ++++ mg/dLNOMS HealthcareInterpretation and review of laboratory resultsAbnormalNOMS HealthcareKetones, UAPositiveNegative - 160(16) ++++ mg/dL NOMS HealthcareLeukocytes, UAPositiveNegative - 500+++ Dodie/mcLNOMS Healthcare Nitrite, UANegativeNegative - PositiveNOMS HealthcarepH, UA65 - 9[facility] Protein, UAPositiveNegative - 2000(20) ++++ mg/dLNOMS HealthcareSpec Grav, UA 1.031 - 1.03NOMS HealthcareUrobilinogen, UA1.00.2 - 12 mg/dLNOMS HealthcareNOMS HealthcareUS OB FOLLOW UP TRANSABDOMINAL APPROACHon 89-49-4362AB OB FOLLOW UP TRANSABDOMINAL APPROACHFINDINGS: A single, [...] menstrual period. TRANSCRIBED BY: ELECTRONICALLY SIGNED BY: Julia SaavedraalNot AvailableComment on above:Order Comment: US OB SCAN FOR GROWTH Estimated Date of Delivery: 05/05/25 Gestational Age as of 02/16/2025: 41l8iUYJ CBC WITH AUTO DIFFon 02-13-2025 BASOPHILS ABSOLUTE AXMJ1GBYS HealthcareBasophils/100 WBC (Bld)0.4 %0.2 - 2.0 % NOM HealthcareEosinophils/100 WBC (Bld)1.5 %0.9 - 7.0 %[facility] Erythrocyte distribution width (RBC) [Ratio]15 %11.0 - 15.0 %[facility] Hematocrit (Bld) [Volume fraction]33.1 %Low36.0 - 48.0 %[facility] Hemoglobin (Bld) [Mass/Vol]10.6 g/dLLow12.0 - 16.0 g/dLSaint Joseph Hospital WestIMMATURE GRANULOCYTES ABS AUTO0.05HighNOCitizens Memorial HealthcareImmature granulocytes/100 WBC (Bld) 0.5 %0.0 - 0.5 %[facility] WestInterpretation and review of laboratory results AbnormalNONJ HealthcareLYMPHOCYTES ABSOLUTE QVYD5DDFH HealthcareLymphocytes/100 WBC (Bld)31.1 %20.5 - 60.0 %[facility] WestMCH (RBC) [Entitic mass]25.4 pgLow 26.7 - 34.0 pgNOCitizens Memorial HealthcareMCHC (RBC) [Mass/Vol]32 g/dL29.9 - 35.2 g/dLNOCitizens Memorial HealthcareMCV (RBC) [Entitic vol]79.2 fLLow81.0 - 99.0 fLAMERICAN [facility] Healthcare MONOCYTES ABSOLUTE AUTO0.8NOMS HealthcareMonocytes/100 WBC (Bld)8.4 %1.7 - 12.0 %NOMCameron Regional Medical CenterNEUTROPHILS ABSOLUTE AUTO5.7NOMS HealthcareNeutrophils/100 WBC (Bld)58.1 %43.0 - 75.0 %[facility] WestPlatelet mean volume (Bld) [Entitic vol] 10 fL9.5 - 13.5 fLNOCitizens Memorial HealthcareTBH EO #0.2NOMS HealthcareTBH [id number] HealthcareTBH RBC4.18LowNOMS HealthcareTBH WBC9.7NOMS HealthcareCLINISYNCNOMS HealthcareUrinalysis macro (dipstick) panel (U)on 35-55-6862Vaaorgamg, UA NegativeNegative - 4(70) +++ mg/dLNOMS HealthcareBlood, UANegativeNegative - 50 Celestino/mcLNOMS HealthcareClarity, UAClearNOMS HealthcareColor, UAYellowNOMS HealthcareGlucose, UANegativeNegative - 2000(110) ++++ mg/dLNOMS Healthcare Interpretation and review of laboratory resultsAbnormalNOMS HealthcareKetones, UAPositiveNegative - 160(16) ++++ mg/dLNOMS HealthcareComment on above:Trace Leukocytes, UAPositiveNegative - 500+++ Dodie/mcLNOMS HealthcareComment on above: SmallNitrite, UANegativeNegative - PositiveNOMS HealthcarepH, UA65 - 9NOMS HealthcareProtein, UATraceNegative - 2000(20) ++++ mg/dLNOMS HealthcareSpec Grav, UA1.031 - 1.03NOMS HealthcareUrobilinogen, UA0.20.2 - 12 mg/dLNOMS HealthcareNOMS HealthcareUS OB LIMITED 1+ FETUSESon 85-04-6560TU OB LIMITED 1+ FETUSESFINDINGS: Single viable intrauterine , breech presentation with normal cardiac and activity, 15 0 bpm. Age appropriate, normal visualization of the left ventricular and right ventricular outflowtracts. IMPRESSION: Normal cardiac and outflow tract anatomy. TRANSCRIBED BY: ELECTRONICALLY SIGNED BY: Sue SaavedraNot AvailableComment on above:Order Comment: US OB INCOMPLETE ANATOMY Estimated Date of Delivery: 05/05/25 Gestational Age as of 12/30/2024: 81n3qXzamwgjlje macro (dipstick) panel (U)on 37-71-2956Sfpyrwtbx, UANegativeNegative - 4(70) +++ mg/dLNOMS HealthcareBlood, UANegativeNegative [...] HealthcareNo Panel InformationOrdered By: Radiologist Radiology on 62-53-6626CFJYSaint Joseph Hospital West Work Phone: No Panel Informationon 07-56-7961Zhljobdik Study observation (narrative)NOMS HealthcareUS OB ANATOMYon 14-38-5848JjcK[place] [address] Ultrasound Report Signed Patient: PARIS MOSQUEDA MR#: [id number] : 1990 Acct:[id number] Age/Sex: 34 / F ADM Date: 12/19/24 Loc: US Attending Dr: Scooby Alvarado D.O. Ordering Physician: Scooby Alvarado D.O. Date of Service: 12/19/24 Procedure(s): US OB anatomy Accession Number(s): [id number] cc: [facility] ; Scooby Alvarado D.O. [address] [address] Patient Name: PARIS MOSQUEDA MRN: [facility]:[id number] date: 1990 Sex: F Assigned Patient Location: US Current Patient Location: US Accession/Order Number: [id number] Exam Date: 12/19/2024 11:33 Report Date: 12/19/2024 [...] Evangelista M.D. 12/19/2024 11:39 AM Dictation Location: [place] [address] Electronically authenticated by: [id number] Y Date: 12/19/2024 11:39 Dictated By: Sarita Evangelista M.D. Signed By: 12/19/24 1142 DD/ 1139 TD/TT: Automotive Assembler:TBHRadiology, Radiologist, - 12/19/2024 The [place] [id number] Ultrasound Report Signed Patient: PARIS MOSQUEDA MR#: [id number] : 1990 Acct:[id number] Age/Sex: 34 / F ADM Date: 12/19/24 Loc: US Attending Dr: Scooby Alvarado D.O. Ordering Physician: Scooby Alvarado D.O. Date of Service: 12/19/24 Procedure(s): US OB anatomy Accession Number(s): [id number] cc: [facility] ; Scooby Alvarado D.O. [place] [id number] Patient Name: PARIS MOSQUEDA MRN: [id number] date: 1990 Sex: F Assigned Patient Location: Current Patient Location: Accession/Order Number: [id number] Exam Date: 12/19/2024 11:33 Report Date: 12/19/2024 [...] Evangelista M.D. 12/19/2024 11:39 AM Dictation Location: [place] [address] Electronically authenticated by: [id number] Y Date: 12/19/2024 11:39 Dictated By: Sarita Evangelista M.D. Signed By: 12/19/24 1142 DD/ 1139 TD/TT: Automotive Assembler: SHERLY Interiano OB CERVICAL LENGTHon 54-44-6899PzzK[place] [address] Ultrasound Report Signed Patient: PARIS MOSQUEDA MR#: [id number] : 1990 Acct:[id number] Age/Sex: 34 / F ADM Date: 12/19/24 Loc: US Attending Dr: Scooby Alvarado D.O. Ordering Physician: Scooby Alvarado D.O. Date of Service: 12/19/24 Procedure(s): US OB cervical length Accession Number(s): [id number] cc: [facility] ; Scooby Alvarado D.O. [place] [id number] Patient Name: PARIS MOSQUEDA MRN: [facility]:[id number] date: 1990 Sex: F Assigned Patient Location: US Current Patient Location: US Accession/Order Number: [id number] Exam Date: 12/19/2024 11:33 Report Date: 12/19/2024 [...] Evangelista M.D. 12/19/2024 11:39 AM Dictation Location: [place] [address] Electronically authenticated by: [id number] Y Date: 12/19/2024 11:39 Dictated By: Sarita Evangelista M.D. Signed By: 12/19/24 1142 DD/ 1139 TD/TT: Automotive Assembler:TBHRadiology, Radiologist, MD - 12/19/2024 [place] [address] Ultrasound Report Signed Patient: PARIS MOSQUEDA MR#: [id number] : 1990 Acct:[id number] Age/Sex: 34 / F ADM Date: 12/19/24 Loc: US Attending Dr: Scooby Alvarado D.O. Ordering Physician: Scooby Alvarado D.O. Date of Service: 12/19/24 Procedure(s): US OB cervical length Accession Number(s): [id number] cc: [facility] ; Scooby Alvarado D.O. The [address] [address] Patient Name: PARIS MOSQUEDA MRN: [facility]:[id number] date: 1990 Sex: F Assigned Patient Location: US Current Patient Location: US Accession/Order Number: [id number] Exam Date: 12/19/2024 11:33 Report Date: 12/19/2024 [...] Evangelista M.D. 12/19/2024 11:39 AM Dictation Location: [place] [address] Electronically authenticated by: [id number] Y Date: 12/19/2024 11:39 Dictated By: Sarita Evangelista M.D. Signed By: 12/19/24 1142 DD/ 1139 TD/TT: Automotive Assembler: SHERLY AntonioIGP,APTIMA HPV,AGE GDLNon 30-47-8774HUT GDLN ACOG TESTINGNote. SHERLY HealthcareComment on above:TESTS RESULT FLAG UNITS REF RANGE LAB Clinician Provided Cytology Information Source.............Vagina Other.............. No. of containers..01 ThinPrep Vial Age Algo ACOG Karine... FLAG LEGEND: L-Low Normal,H-High Normal,LL-Alert Low,HH-Alert High <-Panic Low,>-Panic High,A-Abnormal,AA-Critical Abnormal Performed at: 01 =[address] [address] Cindy Pinzon MD, HPV APTIMANegativeNegativeNOMS HealthcareComment on above:This nucleic acid amplification test detects fourteen high- risk HPV types (16,18,31,33,35,39,45,51,52,56,58,59,66,68) without differentiation. Performed at: =[address] [id number] Pork Cutlet Maker: Cindy Pinzon MD, Phone: [phone] Performed at: [address] [id number] Pork Cutlet Maker: Cindy Pinzon MD, Phone: [phone] IGP, APTIMA HPV, RFX 16/18,45Note.NOMS HealthcareComment on above:TESTS RESULT FLAG UNITS REF RANGE LAB DIAGNOSIS: 02 NEGATIVE FOR INTRAEPITHELIAL LESION OR MALIGNANCY. Specimen adequacy: 02 Satisfactory for evaluation. No endocervical component is identified. Performed by: 02 Yanni Dela Cruz Printing Assistant ([facility]) . 02 Note: Note 02 The Pap [...] <-Panic Low,>-Panic High,A-Abnormal,AA-Critical Abnormal Performed at: [address] [address] Cindy Pinzon MD, SPATULA-ALONE VAGINA CLINISYNCNOMS HealthcareRECURRENT VAGINITIS (HTRX)on 61-24-0841QHMBEQZFR VAGINAE 0NOMS HealthcareATOPOBIUM VAGINAENot detectedNOMS HealthcareBVAB 2,3 (BACTERIAL VAGINOSIS ASSOCIATED BACTERIA 2, 3); MOBILUNCUS [id number] HealthcareBVAB 2,3 (BACTERIAL VAGINOSIS ASSOCIATED BACTERIA 2, 3); MOBILUNCUS SPPNot detectedNOMS HealthcareCANDIDA ALBICANS, PARAPSILOSIS, GLWDFQNBXS9NKLO HealthcareCANDIDA ALBICANS, PARAPSILOSIS, TROPICALISNot detectedNOMS HealthcareCANDIDA GLABRATA0 NOMS HealthcareCANDIDA GLABRATANot detectedNOMS HealthcareCANDIDA [id number] HealthcareCANDIDA KRUSEINot detectedNOMS HealthcareCHLAMYDIA [id number] HealthcareCHLAMYDIA TRACHOMATISNot detectedNOMS HealthcareGARDNERELLA VAGINALIS0 NOMS HealthcareGARDNERELLA VAGINALISNot detectedNOMS HealthcareMEGASPHAERA (TYPES 1, 2)0NOMS HealthcareMEGASPHAERA (TYPES 1, 2)Not detectedNOMS Healthcare MYCOPLASMA [id number] HealthcareMYCOPLASMA GENITALIUMNot detectedNOMS HealthcareNEISSERIA [id number] HealthcareNEISSERIA GONORRHOEAENot detected NOMS HealthcareTRICHOMONAS [id number] HealthcareTRICHOMONAS VAGINALISNot detectedNOMS HealthcareNOMS HealthcareUrinalysis macro (dipstick) panel (U)on 21-40-1912Ncsouosla, UANegativeNegative - 4(70) +++ mg/dLNOMS HealthcareBlood, UANegativeNegative - 50 Celestino/mcLNOMS HealthcareClarity, UAClearNOMS Healthcare Color, UAYellowNOMS HealthcareGlucose, UANegativeNegative - 2000(110) ++++ mg/dL NOMS HealthcareInterpretation and review of laboratory resultsNormalNOMS HealthcareKetones, UANegativeNegative - 160(16) ++++ mg/dLNONJ Healthcare Leukocytes, UAPositiveNegative - 500+++ Dodie/mcLNOMS HealthcareComment on above: smallNitrite, UANegativeNegative - PositiveNOMS HealthcarepH, UA75 - 9NOMS HealthcareProtein, UANegativeNegative - 2000(20) ++++ mg/dLNOMS HealthcareSpec Grav, UA1.0151 - 1.03NOMS HealthcareUrobilinogen, UA0.20.2 - 12 mg/dLNOMS HealthcareNOMS HealthcareGlucose random or fasting- POCTOrdered By: James Rader on 52-47-3349Ezcdchyg Glucose Fasting Or Random (Fbs)94[facility] SystemProParkwood Hospital SystemUrinalysis macro (dipstick) panel (U)on 11-13-2024 Bilirubin, UANegativeNegative - 4(70) +++ mg/dLNOMS HealthcareBlood, UANegative Negative - 50 Celestino/mcLNONJ HealthcareClarity, UAClearNOMS HealthcareColor, UA YellowNOMS HealthcareGlucose, UANegativeNegative - 2000(110) ++++ mg/dLNONJ HealthcareInterpretation and review of laboratory resultsAbnormalSaint Joseph Hospital West Ketones, UANegativeNegative - 160(16) ++++ mg/dLNONJ HealthcareLeukocytes, UA TraceNegative - 500+++ Dodie/mcLNONJ HealthcareNitrite, UANegativeNegative - PositiveNOMS HealthcarepH, UA65 - 9NOMS HealthcareProtein, UANegativeNegative - 2000(20) ++++ mg/dLNONJ HealthcareSpec Grav, UA1.011 - 1.03NONJ Healthcare Urobilinogen, UA0.20.2 - 12 mg/dLNOMissouri Baptist Medical Center HealthcareBOX TESTon 84-14-1505JNH TEST SENT OUTunProtestant Deaconess [facility] WzvxbeckodTYE9jfqwkTBUH HealthcareBOX2 11/11/24NOCitizens Memorial HealthcareUNITY BOX CLINISYNCAMERICAN FORK [facility] HealthcareHCG ( test) Ql (U)on 00-78-3153Ulbijllfqkftbj and review of laboratory resultsAbnormalSaint Joseph Hospital WestPreg Test, UrPositive NegativeNOCitizens Memorial HealthcareNONJ HealthcareUS OB TRANSVAGINALon 93-48-8522SK OB TRANSVAGINALEXAM: US OB TRANSVAGINAL HISTORY: Dating. [...] II, MD, PHD at 16-Oct-2024 11:21:08 PM [facility]eleradiologyNormalNot AvailableComment on above:Order Comment: US OB TRANSVAGINAL No LMP recorded.US Pelvis transvaginalon 16-78-0964EDRT: US OB TRANSVAGINAL HISTORY: Dating. A1. LMP [...] II, MD, PHD at 16-Oct-2024 11:21:08 PM [facility] IMAGINGSEkaterina beltre MD - 10/16/2024 EXAM: US OB TRANSVAGINAL [...] II, MD, PHD at 16-Oct-2024 11:21:08 PM [facility] HealthcareRadiology Study observation (narrative)NOMS HealthcareUS Pelvis transvaginalOrdered By: Ekaterina Carroll on 33-60-1727BXPX [facility] Work Phone: Urinalysis macro (dipstick) panel (U)on 10-16-2024 Bilirubin, UANegativeNegative - 4(70) +++ mg/dLNOMS HealthcareBlood, UANegative Negative - 50 Celestino/mcLNOMS HealthcareClarity, UAClearNOMS HealthcareColor, UA YellowNOMS HealthcareGlucose, UANegativeNegative - 2000(110) ++++ mg/dLNOMS HealthcareInterpretation and review of laboratory resultsAbnormalNONJ Healthcare Ketones, UAPositiveNegative - 160(16) ++++ mg/dLNOMS HealthcareComment on above: 80mg/dLLeukocytes, UAPositiveNegative - 500+++ Dodie/mcLNOMS HealthcareComment on above:smallNitrite, UANegativeNegative - PositiveNOMS HealthcarepH, UA5.55 - 9 NOMS HealthcareProtein, UAPositiveNegative - 2000(20) ++++ mg/dLNOMS Healthcare Comment on above:30mg/dLSpec Grav, UA1.031 - 1.03NONJ HealthcareUrobilinogen, UA 0.20.2 - 12 mg/dLNONJ HealthcareNONJ HealthcareHGB AND HCTon 12-21-2023 Hematocrit (Bld) [Volume fraction]28.7 %Xbk16-26VdxDbqfzzRiverside Methodist Hospital Comment on above:Performed By: #### HH #### [facility] ([id number]) [address] [place] [address] 01908Jkttavzjsm (Bld) [Mass/Vol]9.8 g/dLLow11.7-15.5ProMedRancho Los Amigos National Rehabilitation CenterComment on above:Performed By: #### HH #### [facility] ([id number]) [address] [place] [address] 08030Yvsaygxz Pathologyon 59-43-5776Dinwupop PathologyNormal [facility]ide Methodist HospitalComment on above:Result Comment: [facility] [address] [place] [address] Surgical Pathology Consultation Patient Name:SYDNIE MOSQUEDAB:1990 (Age: 33)Gender:FTaken:4Reported:4Physician(s):Cody Desai MD ([phone])Copy To: Rec. #:[id number]: #[id number] Final Pathologic Diagnosis Products of conception; removal: Products of conception (gestational sac with immature chorionic villi) and fragments of decidua with acute inflammation and necrosis. Report Electronically Signed Out wacha/12/28/2023Pradeep Brannon MD Interpretation performed at [facility], [address] [place] [address], License number: [id number]. Clinical History Spontaneous , miscarriage. Gross Description Received in formalin labeled MOSQUEDA Karyotype: No Aggregate measurement: 5.2 x 3.8 x 2.0 cm. Placenta: 3.4 x 2.8 x 1.5 cm Decidua/Clot: 1.8 x 1.0 x 0.5 cm Gestational Sac: Yes, intact Tissue: No Molar Tissue: No Cassettes: A-C placenta (3, ss, [id number],m5) DM Received fresh-no site on container. POC for routine surgical path. Per Ariana Avendaño dm/12/21/2023GR Specimen(s) Received Products of conception Fee Codes(s): 1; 96597VK PREG LESS THAN 14 WKS WITH TRANSVAGINALon 82-38-7224MU PREG LESS THAN 14 WKS WITH TRANSVAGINALUS [...] by Isamar Monroy MD on 12/21/2023 8:46 AMNormalRiverside Methodist HospitalBASIC METABOLIC PANLon 52-89-6514Tmwwj gap [Moles/Vol]6 mmol/LNormal5-15 ProMedicRancho Los Amigos National Rehabilitation CenterComment on above:Performed By: #### MARICARMEN CBCA, #### [facility] ([id number]) [address] [place] [address], [place] [address]Pzraoam [Mass/Vol]8.9 mg/dLNormal8.5-10.5POhioHealth Dublin Methodist HospitalComment on above:Performed By: #### MARICARMEN CBCA, #### [facility] ([id number]) [address] [place] [address], [place] [address]Dbtwxbpp [Moles/Vol]105 mmol/TDckyug40-707HwzHrdafgRiverside Methodist HospitalComment on above:Performed By: #### MARICARMEN CBCA, #### [facility] ([id number]) [address] [place] [address] 76098YT0 [Moles/Vol]24 mmol/WLlrxly45-77AnhQcedtyOhioHealth Dublin Methodist Hospital Comment on above:Performed By: #### MARICARMEN CBCA, #### [facility] ([id number]) [address] [place] [address] 92842Cfmnkbknoz [Mass/Vol]0.74 mg/dLNormal0.40-1.00Riverside Methodist HospitalComment on above:Result Comment: METHOD TRACEABLE TO IDMS STANDARD Performed By: #### MARICARMEN CBCA, #### [facility] ([id number]) [address] [place] [address], [place] [address]lQEV (CKD-EPI) NON-RACE DEPENDENT>90Normal>59ProUniversity Medical Center Of El PasoComment on above:Result Comment: Reported eGFR is based on the CKD-EPI 2020 equation that does not use a race coefficient.Performed By: #### CHETAN HERNADEZ, #### [facility] ([id number]) [address] [place] [address] 43809Zaoleaj [Mass/Vol]149 mg/eXWmpf46-62PetSjgdslUniversity Medical Center Of El Paso Comment on above:Performed By: #### CHETAN HERNADEZ, #### [facility] ([id number]) [address] [place] [address] 05877Mdxqugppd [Moles/Vol]3.6 mmol/LNormal3.5-5.0ProUniversity Medical Center Of El PasoComment on above:Performed By: #### CHETAN HERNADEZ, #### [facility] ([id number]) [address] [place] [address] 48652Flplby [Moles/Vol]135 mmol/JQhtyqg174-910HniMuufpq Fremont HospitalComment on above:Performed By: #### CHETAN HERNADEZ, #### [facility] ([id number]) [address] [place] [address] 09464Rpwq nitrogen [Mass/Vol]10 mg/dLNormal5-23ProUniversity Medical Center Of El PasoComment on above:Performed By: #### CHETAN HERNADEZ, #### [facility] ([id number]) [address] [place] [address] 876[address]CIB AND AUTO DIFFon 90-12-7711SCCWSZJT BASOPHIL0.0 X10E9/L Normal0.0-0.2POhioHealth Dublin Methodist HospitalComment on above:Performed By: #### CHETAN HERNADEZ, #### [facility] ([id number]) [address] [place] [address] 29312XWHCNENU NEUTROPHIL4.9 X10E9/LNormal1.5-6.6Riverside Methodist HospitalComment on above:Performed By: #### CHETAN HERNADEZ, #### [facility] ([id number]) [address] [place] [address] 31521Wghwpwlzb/100 WBC (Bld)0.4 %[facility] Comment on above:Performed By: #### CHEATN HERNADEZ, #### [facility] ([id number]) [address] [place] [address] 60140Hdvteodfgtp (Bld) [#/Vol]0.3 10*3/uLNormal0.0-0.4R[facility]ide Methodist HospitalComment on above:Performed By: #### CHETAN HERNADEZ, #### [facility] ([id number]) [address] [place] [address] 58985Uadmthdktut/100 WBC (Bld)2.3 %[facility] Comment on above:Performed By: #### CHETAN HERNADEZ, #### [facility] ([id number]) [address] [place] [address] 17118Jqimhrtrssj distribution width (RBC) [Ratio]13.8 %Normal 11.5-15.0Riverside Methodist HospitalComment on above:Performed By: #### CHETAN HERNADEZ, #### [facility] ([id number]) [address] [place] [address] 51442Zqcwaseqba (Bld) [Volume fraction]34.8 %Uwf17-26UjkGvzppqUniversity Medical Center Of El PasoComment on above:Performed By: #### CHETAN HERNADEZ, #### [facility] ([id number]) [address] [place] [address] 73713Cleulagecf (Bld) [Mass/Vol]11.5 g/dLLow11.7-15.5POhioHealth Dublin Methodist HospitalComment on above:Performed By: #### MARICARMEN CBCA, #### [facility] ([id number]) [address] [place] [address] 45790Xwtglcphctn (Bld) [#/Vol]4.6 10*3/uLHigh1.0-3.5POhioHealth Dublin Methodist HospitalComment on above:Performed By: #### MARICARMEN, CBCA, #### [facility] ([id number]) [address] [place] [address] 62384Hnubupwuigf/100 WBC (Bld)41.7 %NormalRiverside Methodist Hospital Comment on above:Performed By: #### MARICARMEN CBCPaco, #### [facility] ([id number]) [address] [place] [address] 95745YFW (RBC) [Entitic mass]27.8 maCwtqdj23-14VlzHsaroiRiverside Methodist HospitalComment on above:Performed By: #### MARICARMEN CBCA, #### [facility] ([id number]) [address] [place] [address] 11041LWWH (RBC) [Mass/Vol]33.0 g/qYFwiayr95-93BadKgilprUniversity Medical Center Of El PasoComment on above:Performed By: #### MARICARMEN CBCA, #### [facility] ([id number]) [address] [place] [address] 26642UGA (RBC) [Entitic vol]84 yIQsyhpa44-512DxcPqemtb [facility]remont HospitalComment on above:Performed By: #### MAIRCARMEN, CBCA, #### [facility] ([id number]) [address] [place] [address] 58797Xbocfpwjt (Bld) [#/Vol]1.2 10*3/uLHigh0-0.9Riverside Methodist HospitalComment on above:Performed By: #### CHETAN HERNADEZ, #### [facility] ([id number]) [address] [place] [address] 48828Cghcvxvbt/100 WBC (Bld)11.1 %NormalRiverside Methodist Hospital Comment on above:Performed By: #### CHETAN HERNADEZ, #### [facility] ([id number]) [address] [place] [address] 10382Onyalenvezs/100 WBC (Bld)44.5 %[facility] Comment on above:Performed By: #### CHETAN HERNADEZ, #### [facility] ([id number]) [address] [place] [address] 29747Ipkxokdt mean volume (Bld) [Entitic vol]7.6 fLNormal7-12 [facility] Methodist HospitalComment on above:Performed By: #### CHETAN HERNADEZ, #### [facility] ([id number]) [address] [place] [address], [place] [address]Fikrlsnyy (Bld) [#/Vol]323 10*3/hTXmjlzl293-336XweUmargaRiverside Methodist HospitalComment on above:Performed By: #### CHETAN HERNADEZ, #### [facility] ([id number]) [address] [place] [address] 42904WEK COUNT4.12 X10E12/LNormal3.80-5.20[facility] Comment on above:Performed By: #### CHETAN HERNADEZ, #### [facility] ([id number]) [address] [place] [address] 06114BJW (Bld) [#/Vol]11.0 10*3/uLNormal4.0-11.0Riverside Methodist HospitalComment on above:Performed By: #### MARICARMEN CBCA, 47516-8 #### [facility] ([id number]) [address] [place] [address] 68886MPT.beta subunit IA 3rd IS Qnon 92-26-6329LFC.beta subunit Qn 5361 m[IU]/mLNormalRiverside Methodist HospitalComment on above:Result Comment: NEW REFERENCE RANGE WEEKS [...] trophoblastic or nontrophoblastic neoplasms. Performed By: #### MARICARMEN CBCA, 33152-6 #### [facility] ([id number]) [address] [place] [address] 14682UCZ ( test) Ql (U)on 21-76-8185Sevh HCG ( test) Ql (U)PositiveAbnormalNEGRiverside Methodist HospitalComment on above: Performed By: #### 2106-3 #### [facility] ([id number]) [address] [place] [address] 13707ZPL.beta subunit IA 3rd IS Qnon 75-62-9271EGS.beta subunit Qn 6620 m[IU]/mLNormalRiverside Methodist HospitalComment on above:Result Comment: NEW REFERENCE RANGE WEEKS [...] trophoblastic or nontrophoblastic neoplasms. Performed By: #### 59251-2 #### [facility] ([id number]) [address] [place] [address] 47910BTF MACROSCOPIC NURon 60-90-6262NGGYWYKSX NURSmallAbnormalNEG ProMedica Natividad Medical CenterComment on above:Performed By: #### NUM #### [facility] ([id number]) [address] [place] [address] 24669ODJPE/HGB NURLargeAbnormalNEGProUniversity Medical Center Of El PasoComment on above:Performed By: #### NUM #### [facility] ([id number]) [address] [place] [address] 09910TWOCYUI NURNegativeNormalNEGProUniversity Medical Center Of El PasoComment on above:Performed By: #### NUM #### [facility] ([id number]) [address] [place] [address] 78103CUGKYDH NURTraceAbnormalNEGProUniversity Medical Center Of El PasoComment on above:Performed By: #### NUM #### [facility] ([id number]) [address] [place] [address] 30307STIMGDLFI ESTERASE NURNegativeNormalNEGProUniversity Medical Center Of El PasoComment on above:Performed By: #### NUM #### [facility] ([id number]) [address] [place] [address] 02198OMTRIGB NURNegativeNormalNEGRiverside Methodist HospitalComment on above:Performed By: #### NUM #### [facility] ([id number]) [address] [place] [address] 30667KB NUR6.0Etrfef6.0-8.5POhioHealth Dublin Methodist HospitalComment on above:Performed By: #### NUM #### [facility] ([id number]) [address] [place] [address] 40759VQMPDUM BSI815 mg/dLAbnormalNEGRiverside Methodist Hospital Comment on above:Performed By: #### NUM #### [facility] ([id number]) [address] [place] [address] 11183SIWGWKHS GRAVITY NIKITA>=1.707Tcdtyp8.003-1.035ProUniversity Medical Center Of El PasoComment on above:Performed By: #### NUM #### [facility] ([id number]) [address] [place] [address] 03825BBHCGTRREADD NUR1.0 eu/dLNormal<1.1POhioHealth Dublin Methodist Hospital Comment on above:Performed By: #### NUM #### [facility] ([id number]) [address] [place] [address] 73692XJ PREG LESS THAN 14 WKS WITH TRANSVAGINALon 01-15-2162QR PREG LESS THAN 14 WKS WITH TRANSVAGINALUS [...] by Olvin Overton MD on 12/19/2023 6:46 [facility] Hospitalca [facility] Medical CenterChlamydia/GC/Trich NAAon 16-24-8199Cfhogojpm Trachomotis, NAANegative NormalNegativeOhio State University Wexner Medical CenterComment on above:Performed By: #### CUU #### [place] [address] [place] #### GCCHLAMTRI #### [facility] ,Neisseria Gonorrhoeae, NAANegativeNormalNegativeOhio State University Wexner Medical CenterComment on above:Performed By: #### CUU #### [place] [address] [place] #### GCCHLAMTRI #### [facility] ,Trichomonas NAANegativeNormalNegativeOhio State University Wexner Medical CenterComment on above:Result Comment: Performed at: = - [facility] [id number] Pork Cutlet Maker: Cindy Pinzon MD, Phone: [phone] PERFORMED BY: [place] [address] PATHOLOGIST REGISTERED [facility] M.D.Performed By: #### CUU #### [place] [address] [place] #### GCCHLAMTRI #### [facility] ,Urine Cultureon 46-63-8169Kxkwhiwz identified Cx Nom (U)30,000 colonies/ml mixed bacterial skin contaminants 2 Days PERFORMED BY: [facility] [address] [place] [address] PATHOLOGIST REGISTERED [facility] M.D.[facility] HospitalComment on above: Performed By: #### CUU #### [facility] [address] #### GCCHLAMTRI #### [facility] ,Pap IG,rfx Aptima HPV all pthon 11-16-2021..[facility] HospitalCommunson healthcare [facility] on above:Performed By: #### HIV12 #### [facility] [address] [place] [address] Andriy KarenDIAGNOSIS:CommentChildren's Hospital for Rehabilitation on above:Result Comment: NEGATIVE FOR INTRAEPITHELIAL LESION OR MALIGNANCY. THIS SPECIMEN WAS RESCREENED PART OF OUR CASHIER PROGRAM.Performed By: #### HIV12 #### [facility] [address] [place] [address] Andriy KarenMethodology:CommentChildren's Hospital for Rehabilitation on above: Result Comment: This liquid based ThinPrep(R) pap test was screened with the use of an image guided system.Performed By: #### HIV12 #### [facility] [address] [place] [address] Andriy KarenNote:CommentChildren's Hospital for Rehabilitation on above:Result Comment: The Pap smear is a screening test designed to aid in the detection of premalignant and malignant conditions of the uterine cervix. It is not a diagnostic procedure and should not be used as the sole means of detecting cervical cancer. Both false-positive and false-negative reports do occur. .Performed By: #### HIV12 #### [facility] [address] [place] [address] Andriy KarenPerformed by:[facility] on above: Result Comment: Yanni Dela Cruz, Hat Maker (ASCP)Performed By: #### HIV12 #### [facility] [address] [place] [address] Andriy KarenQC reviewed by:CommentChildren's Hospital for Rehabilitation on above: Result Comment: Summer Motley, Supervisory Hat Maker (ASCP)Performed By: #### HIV12 #### [facility] [address] [place] [address] Andriy KarenReflex Criteria:CommentChildren's Hospital for Rehabilitation on above: Result Comment: The HPV DNA reflex criteria were not met with this specimen result therefore, no HPV testing was performed. .Performed By: #### HIV12 #### [facility] [address] [place] [address] Andriy KarenSpecimen adequacy:CommentChildren's Hospital for Rehabilitation on above:Result Comment: Satisfactory for evaluation. Endocervical and/or squamous metaplastic cells (endocervical component) are present.Performed By: #### HIV12 #### [facility] [address] [place] [address] Andriy KarenCBC AUTO DIFFon 84-04-2710MIPH #0.0 103/ulNormal0.0-0.1Access Hospital DaytonComment on above:Performed By: #### HIV12 #### [facility] [address] [place] [address] Andriy KarenBasophils/100 WBC (Bld)0.2 %Normal0.2-2.0[facility] Comment on above:Performed By: #### HIV12 #### [facility] [address] [place] [address] Andriy KarenEO #0.2 103/ulNormal0.0-0.7[facility] on above: Performed By: #### HIV12 #### [facility] [address] [place] [address] Andriy KarenEosinophils/100 WBC (Bld)1.4 %Normal0.9-7.0[facility] Comment on above:Performed By: #### HIV12 #### [facility] [address] [place] [address] Andriy KarenErythrocyte distribution width (RBC) [Ratio]16.9 %Critically high 11.0-15.0The Glenbeigh HospitalComment on above:Performed By: #### HIV12 #### [facility] [address] [place] [address] Andriy KarenHematocrit (Bld) [Volume fraction]28.9 %Critically low36.0-48.0Access Hospital DaytonComment on above:Performed By: #### HIV12 #### [facility] [address] [place] [address] Andriy KarenHemoglobin (Bld) [Mass/Vol]9.2 g/dLCritically low12.0-16.0Access Hospital DaytonComment on above:Result Comment: PATIENT DELIVEREDPerformed By: #### HIV12 #### [facility] [address] [place] [address] Andriy KarenIG #0.07 10e3/ulCritically high0.00-0.03Access Hospital DaytonComment on above:Performed By: #### HIV12 #### [facility] [address] [place] [address] Andriy KarenIG %0.7 %Critically high0.0-0.5The [facility]beigh HospitalComment on above:Performed By: #### HIV12 #### [facility] [address] [place] [address] Andriy KarenLYMPH #3.2 103/ulNormal1.2-3.8The [facility]igh HospitalComment on above: Performed By: #### HIV12 #### [facility] [address] [place] [address] Andriy KarenLymphocytes/100 WBC (Bld)29.7 %Mbzbqy83.5-60.0[facility] Comment on above:Performed By: #### HIV12 #### [facility] [address] [place] [address] Andriy KarenMANUAL DIFF REQNONormalThe Glenbeigh HospitalComment on above: Performed By: #### HIV12 #### [facility] [address] [address] Andriy SteinMCH (RBC) [Entitic mass]28.0 tnChocih36.7-34.0[facility] Comment on above:Performed By: #### HIV12 #### [facility] [address] [place] [address] Andriy SteinMC (RBC) [Mass/Vol]31.8 g/vOJwcjnw53.9-35.2[facility] Comment on above:Performed By: #### HIV12 #### [facility] [address] [place] [address] Andriy SteinMCV (RBC) [Entitic vol]87.8 dVWtohuu15.0-99.0[facility] Comment on above:Performed By: #### HIV12 #### [facility] [address] [place] [address] Andriy KarenMONO #0.9 103/ulCritically high0.3-0.8The [facility]beigh HospitalComment on above:Performed By: #### HIV12 #### [facility] [address] [place] [address] Andriy KarenMonocytes/100 WBC (Bld)8.3 %Normal1.7-12.0[facility] Comment on above:Performed By: #### HIV12 #### [facility] [address] [place] [address] Andriy KarenNEUT #6.3 103/ulNormal1.4-6.5The [facility]beigh HospitalComment on above: Performed By: #### HIV12 #### [facility] [address] [place] [address] Andriy KarenNeutrophils/100 WBC (Bld)59.7 %Lmeyba26.0-75.0[facility] Comment on above:Performed By: #### HIV12 #### [facility] [address] [place] [address] Andriy KarenPlatelet mean volume (Bld) [Entitic vol]9.7 fLNormal9.5-13.5The [facility]beigh HospitalComment on above:Performed By: #### HIV12 #### [facility] [address] [place] [address] Andriy SteinPLT173 103/voCyukbg793-876Cbd [facility]beigh HospitalComment on above: Performed By: #### HIV12 #### [facility] [address] [place], [place] [address] Andriy RodgersenRBC3.29 106/ulCritically low4.20-5.40The [facility]igh HospitalComment on above:Performed By: #### HIV12 #### [facility] [address] [place] [address] Andriy SteinWBC10.6 103/ulNormal4.0-11.0The [facility] HospitalComment on above: Performed By: #### HIV12 #### [facility] [address] [place] [address] Andriy RodgersenASYMPTOMATIC COVID-19 ANTIGENon [id number] StatementSEE BELOW NormalThe Glenbeigh HospitalComment on above:Result Comment: This test has not [...] is revoked sooner.Performed By: #### HBSANS #### [facility] [address] [place] [address] Andriy HaqOyyowWSBO-WsL-5 (COVID-19) RNA CARLITOS+probe Ql (Unsp spec)NegativeNormal NEGATIVEThe [facility]igh HospitalComment on above:Result Comment: Negative results are presumptive. They do not preclude infection and should not be used as the sole basis for treatment decisions. Additional confirmatory testing by a molecular method should be considered.Performed By: #### HBSANS #### [facility] [address] [address] Andriy ChristopherBC AUTO DIFFon [id number] #0.0 103/ulNormal0.0-0.1The [facility] Systemment on above:Performed By: #### CBC ####[facility] [address] [address]Dr.Yilan ChangBasophils/100 WBC (Bld)0.2 %Normal0.2-2.0The [facility] on above:Performed By: #### CBC ####[facility] [address] [address]Dr.Yilan ChangEO #0.1 103/ulNormal0.0-0.7The [facility] HospitalComment on above:Performed By: #### CBC ####[facility] Rnfrbwlyqf[address] [place], [place] [address]Dr.Yilan ChangEosinophils/100 WBC (Bld)1.0 %Normal 0.9-7.0[facility] on above:Performed By: #### CBC ####[facility] [address] [address]Dr.Sunil Conner Erythrocyte distribution width (RBC) [Ratio]17.0 %Critically high11.0-15.0[facility] on above:Performed By: #### CBC ####[facility] Dvacwhdhse[address] [place], [place] [address]Dr.Sunil ChangHematocrit (Bld) [Volume fraction]37.5 %Kfkctb26.0-48.0[facility] on above:Performed By: #### CBC ####[facility] Xqteghgxzo[address] [place], [place] [address]Dr.Chelsiebriana ChangHemoglobin (Bld) [Mass/Vol]12.3 g/dL Xsgbxf57.0-16.0The [facility] HospitalComment on above:Performed By: #### CBC ####[facility] [address] [address]Dr. Chelsiebriana UbaldoIG #0.05 10e3/ulCritically high0.00-0.03The [facility] HospitalComment on above:Performed By: #### CBC ####[facility] [address] [address]Dr.Sunil ConnerIG %0.5 %Normal0.0-0.5The [facility] HospitalComment on above:Performed By: #### CBC ####[facility] Fxwjavlzli[address] [place], [place] [address]Dr.Sunil CabreraMPH #2.8 103/ulNormal1.2-3.8The [facility] HospitalComment on above:Performed By: #### CBC ####[facility] Ulthmdlsry[address] [place], [place] [address]Dr. Sunil Cabrerahocytes/100 WBC (Bld)28.4 %Aafjnw55.5-60.0[facility] Comment on above:Performed By: #### CBC ####[facility] Xmokvpiowr[address] [place], [place] [address]Dr.Sunil ConnerMANUAL DIFF REQNONormalThe [facility] HospitalComment on above:Performed By: #### CBC ####[facility] Cpnbrxfjbf[address] [place], [place] [address]Dr.Sunil ConnerBETHESDA H[facility] (RBC) [Entitic mass]28.5 koOxeart62.7-34.0The [facility] HospitalComment on above: Performed By: #### CBC ####[facility] Ktbtqpqpba[address] [place], [place] [address]Dr.Sunil ConnerHC (RBC) [Mass/Vol]32.8 g/dLNormal 29.9-35.2The [facility] HospitalComment on above:Performed By: #### CBC ####[facility] Xxlzgbrtmm7[address] [place], [place] [address]Dr. Sunil ConnerV (RBC) [Entitic vol]86.8 aTHgbwsg53.0-99.0[facility] Comment on above:Performed By: #### CBC ####[facility] Jjqjbjqidr[address] [place], [place] [address]Dr.Sunil ConnerMONO #0.8 103/ulNormal0.3-0.8 The [facility] HospitalComment on above:Performed By: #### CBC ####[facility] Jyfzolfnge[address] [place], [place] [address]Dr.Sunil Conner Monocytes/100 WBC (Bld)7.9 %Normal1.7-12.0The [facility] HospitalComment on above: Performed By: #### CBC ####[facility] Cqcpnffvit7[address] [place], [place] [address]Dr.Sunil ConnerNEUT #6.0 103/ulNormal1.4-6.5The [facility] HospitalComment on above:Performed By: #### CBC ####[facility] Jsuawldkuv[address] [place], [place] [address]Dr.Sunil ConnerNeutrophils/100 WBC (Bld)62.0 %Ckztop74.0-75.0The [facility] HospitalComment on above:Performed By: #### CBC ####[facility] Uxnbuczgmp[address] [place], [place] [address]Dr.Sunil ConnerPlatelet mean volume (Bld) [Entitic vol]10.2 fLNormal9.5-13.5 [facility] Hospital DaytonComment on above:Performed By: #### CBC ####[facility] X[address]qhqtyhbx[address] [place], [place] [address]Dr.Sunil WrkyvJNB182 103/rhCelbgg939-088Qhr [facility] HospitalComment on above:Performed By: #### CBC ####[facility] Lqtngyzitx[address] [place], [place] [address]Dr. Sunil UbaldoRBC4.32 106/ulNormal4.20-5.40The [facility] HospitalComment on above: Performed By: #### CBC ####[facility] Uvnjcuzwjl[address] [place], [place] [address]Dr.Chelsielan ChangWBC9.7 103/ulNormal4.0-11.0[facility] Hospital DaytonComment on above:Performed By: #### CBC ####[facility] Mukfxzcpqf[address] [place], [place] [address]Dr.Sunil ConnerDRUG SCREEN RAPID (URINE)on [id number]ILts Bellevue HospitalComment on above:Performed By: #### DRUGRPD ####[facility] Slrritcbjg[address] [place], [place] [address]Dr. Sunil ConnerBARNegativeNormalNEGATIVEAccess Hospital DaytonComment on above:Performed By: #### DRUGRPD ####[facility] Qfbxqaheid[address] [place], [place] [address]Dr. Sunil ConnerBUP NegativeNormwyNEGGreen Cross HospitalComment on above:Performed By: #### DRUGRPD ####[facility] Wsfcktopcd[address] [place], [place] [address]Dr. Sunil UbaldoBZONegativeNormalNEGATIVEAccess Hospital DaytonComment on above:Performed By: #### DRUGRPD ####[facility] Zvcpyjovyk[address] [place], [place] [address]Dr. Sunil ConnerCOCNegativeNormalNEGGreen Cross HospitalComment on above:Performed By: #### DRUGRPD ####[facility] Msveuyxwyf[address] [place], [place] [address]Dr. Chelsiebriana UbaldoCUT-OFFSSEE Kindred Hospital DaytonComment on above:Result Comment: AMP (Amphetamine): 500ng/mL, BAR (Barbituates): 200 ng/mL, BZO (Benzodiazepines): 15 0 ng/mL, BUP (Buprenorphine): 10 ng/mL, TAMICA (Cocaine): 150 ng/mL, mAMP (Methamphetamine): 500 ng/mL, MTD (Methadone): 200 ng/mL, OPI (Opiates): 100 ng/mL, OXY (Oxycodone): 100 ng/mL, PCP (Phencyclidine): 25 ng/mL, PPX (Propoxyphene): 300 ng/mL, THC (Cannabinoids): 50 ng/mL, TCA (Trycyclic Antidepressants): 300 ng/mLPerformed By: #### DRUGRPD ####[facility] Pbbandtooy[address] [place], [place] [address]Dr. Yilan ChangDRUG CUT HEADERDRUG CLASS TEST SYSTEM CUT-OFF CONCENTRATIONS ARE FOLLOWS:NormalThe [facility] HospitalComment on above:Performed By: #### DRUGRPD ####[facility] V[address]ptj[address]fm[address] [place], [place] [address]Dr. Yilan ChangmAMP NegativeNormalNEGATIVEMercy Health St. Anne Hospital HospitalComment on above:Performed By: #### DRUGRPD ####[facility] Jmknquxnyl[address] [place], [place] [address]Dr. Yilan ChangMTDNegativeNormalNEGATIVEMercy Health St. Anne Hospital HospitalComment on above:Performed By: #### DRUGRPD ####[facility] Pwosjjezoz[address] [place], [place] [address]Dr. Yilan ChangOPINegativeNormalNEGATIVEMercy Health St. Anne Hospital HospitalComment on above:Performed By: #### DRUGRPD ####[facility] Hgaddpybuy[address] [place], [place] [address]Dr. Yilan ChangOXYNegative NormalNEGATIVEMercy Health St. Anne Hospital HospitalComment on above:Performed By: #### DRUGRPD ####[facility] Zcvvqvrvrf[address] [place], [place] [address]Dr. Yilan ChangPCPNegativeNormalNEGATIVEMercy Health St. Anne Hospital HospitalComment on above: Performed By: #### DRUGRPD ####[facility] Iydkumfvip[address] [place], [place] [address]Dr. Yilan ChangPPXNegativeNormalNEGATIVEMercy Health St. [facility] Hospital HospitalComment on above:Performed By: #### DRUGRPD ####[facility] Juxadifkyz[address] [place], [place] [address]Dr. Yilan ChangTCANegative NormalNEGATIVEMercy Health St. Anne Hospital HospitalComment on above:Performed By: #### DRUGRPD ####[facility] J[address]fheqohx[address] [place], [place] [address]Dr. Yilan ChangTHCNegativeNormalNEGATIVEThe [facility]ago HospitalComment on above: Performed By: #### DRUGRPD ####[facility] [address] [place], [place] [address]PcDr. Sunil ConnerTYPE AND SCREENon [id number] AND SCREENNegativeNoSamaritan North Health CenterCommunson healthcare [facility] on above:Performed By: #### TNS #### [facility] [address] [place], [place] [address] Dr. Sunil Kong PREG BIOPHY W NON STRESSon [id number] PREG BIOPHY W NON STRESSEXAMINATION: US PREG [...] Electronically authenticated by: NADIA DOOLEY Date: 2021-07-13 10:55[facility] HospitalUS PREG GROWTHon [id number] PREG GROWTHEXAMINATION: US PREG GROWTH HISTORY: History [...] EFW: 6 lbs. 3 oz., 37% FL/AC: 0.329005 FL/BPD: 0.087054 HC/AC: 0.102429 GESTATIONAL AGE: Age by EDC: 36 weeks 4 days FAHEEM by EDC: 08/04/2021 Age by US: 35 weeks 3 days FAHEEM by US: 08/12/2021 IMPRESSION: Normal interval growth Electronically authenticated by: NADIA DOOLEY Date: 2021-07-11 10:28NoSamaritan North Health CenterCOVID Quick Testingon [id number] Define My Style Other Quick Strepon 07-09-2021. pyogenes Org specific cx Ql (Throat)NegativeKinderhook Define My Style Other Quick StrepZonare Medical Systems Define My Style Other GROUP B STREP CULTUREon 07-06-2021. agalactiae Ag Ql (Unsp spec)Culture Observations: NEGATIVE FOR GROUP B STREPTOCOCCUS.NormalThe [facility]igh HospitalComment on above: Performed By: #### GBSCX #### [facility] [address] [place] [address] Dr. Sunil Kong PREG GROWTHon [id number] PREG GROWTHEXAMINATION: US PREG GROWTH HISTORY: History [...] EFW: 4 lbs. 14 oz., 53% FL/AC: 0.834114 FL/BPD: 0.839715 HC/AC: 1.972072 GESTATIONAL AGE: Age by EDC: 33 weeks 4 days FAHEEM by EDC: 08/04/2021 Age by US: 33 weeks 1 day FAHEEM by US: 08/07/2021 IMPRESSION: Normal interval growth Electronically authenticated by: NADIA DOOLEY Date: 2021-06-20 11:46[facility] HospitalCBC AUTO DIFFon [id number] #0.0 103/ulNormal0.0-0.1The [facility] HospitalComment on above:Performed By: #### HIV12 #### [facility] [address] [id number] Andriy KarenBasophils/100 WBC (Bld)0.5 %Normal0.2-2.0[facility] Comment on above:Performed By: #### HIV12 #### [facility] [address] [place] [address] Andriy KarenEO #0.1 103/ulNormal0.0-0.7The [facility] HospitalComment on above: Performed By: #### HIV12 #### [facility] [address] [place] [address] Andriy KarenEosinophils/100 WBC (Bld)1.3 %Normal0.9-7.0[facility] Comment on above:Performed By: #### HIV12 #### [facility] [address] [place] [address] Andriy KarenErythrocyte distribution width (RBC) [Ratio]19.8 %Critically high 11.0-15.0The [facility] HospitalComment on above:Performed By: #### HIV12 #### [facility] [address] [place] [address] Andriy KarenHematocrit (Bld) [Volume fraction]34.9 %Critically low36.0-48.0The [facility] HospitalComment on above:Performed By: #### HIV12 #### [facility] [address] [place] [address] Andriy KarenHemoglobin (Bld) [Mass/Vol]11.1 g/dLCritically low12.0-16.0The [facility] HospitalComment on above:Performed By: #### HIV12 #### [facility] [address] [place] [address] Andriy KarenIG #0.04 10e3/ulCritically high0.00-0.03The [facility] HospitalComment on above:Performed By: #### HIV12 #### [facility] [address] [place] [address] Andriy KarenIG %0.5 %Normal0.0-0.5The [facility] HospitalComment on above: Performed By: #### HIV12 #### [facility] [address] [address] Andriy KarenLYMPH #2.1 103/ulNormal1.2-3.8The [facility] HospitalComment on above: Performed By: #### HIV12 #### [facility] [address] [address] Andriy KarenLymphocytes/100 WBC (Bld)24.8 %Aejslc19.5-60.0[facility] Comment on above:Performed By: #### HIV12 #### [facility] [address] [id number] Andriy KarenMANUAL DIFF REQNONormalThe [facility] HospitalComment on above: Performed By: #### HIV12 #### [facility] [address] [address] Andriy KarenMCH (RBC) [Entitic mass]27.5 dyBtnpti23.7-34.0[facility] Comment on above:Performed By: #### HIV12 #### [facility] [address] [id number] Andriy KarenMCHC (RBC) [Mass/Vol]31.8 g/qCQtesbd88.9-35.2[facility] Comment on above:Performed By: #### HIV12 #### [facility] [address] [address] Andriy KarenMCV (RBC) [Entitic vol]86.6 jFDiwhho88.0-99.0[facility] Comment on above:Performed By: #### HIV12 #### [facility] [address] [id number] Andriy KarenMONO #0.7 103/ulNormal0.3-0.8The [facility] HospitalComment on above: Performed By: #### HIV12 #### [facility] [address] [address] Andriy KarenMonocytes/100 WBC (Bld)8.7 %Normal1.7-12.0[facility] Comment on above:Performed By: #### HIV12 #### [facility] [address] [address] Andriy KarenNEUT #5.4 103/ulNormal1.4-6.5The [facility] HospitalComment on above: Performed By: #### HIV12 #### [facility] [address] [address] Andriy KarenNeutrophils/100 WBC (Bld)64.2 %Iuigzf64.0-75.0[facility] Comment on above:Performed By: #### HIV12 #### [facility] [address] [address] Andriy KarenPlatelet mean volume (Bld) [Entitic vol]9.9 fLNormal9.5-13.5The [facility] HospitalComment on above:Performed By: #### HIV12 #### [facility] [address] [address] Andriy OzaxeJUN617 103/mqZnaeyo034-176Ctt [facility] HospitalComment on above: Performed By: #### HIV12 #### [facility] [address] [address] Andriy KarenRBC4.03 106/ulCritically low4.20-5.40The [facility] HospitalComment on above:Performed By: #### HIV12 #### [facility] [address] [address] Andriy KarenWBC8.5 103/ulNormal4.0-11.0The [facility] HospitalComment on above: Performed By: #### HIV12 #### [facility] [address] [address] Andriy KarenGTT 3 HR PREGon 95-17-4303Ibkqndt [Mass/Vol]85 mg/iADytgzk39-948Xtj [facility] HospitalComment on above:Performed By: #### GTT3P ####[facility] [address] [address]Dr. Yibriana ChangGlucose [Mass/Vol]188 mg/dLNormalThe [facility] HospitalComment on above:Performed By: #### GTT3P ####[facility] [address] [address]DrWilson Barber ChangGlucose [Mass/Vol]133 mg/dLMemorial Health System [facility] Comment on above:Performed By: #### GTT3P ####[facility] [address] [address]Dr. Sunil ConnerGlucose [Mass/Vol]122 mg/dL NormalThe [facility] HospitalComment on above:Performed By: #### GTT3P ####[facility] [address] [address]DrWilson ConnerCBC AUTO DIFFon [id number] #0.0 103/ulNormal0.0-0.1[facility] Hospital DaytonComment on above:Performed By: #### CBC #### [facility] [address] [address] [address] Sunil ConnerBasophils/100 WBC (Bld)0.3 %Normal0.2-2.0[facility] Comment on above:Performed By: #### CBC #### [facility] [address] [address] [address] Sunil Gomez #0.1 103/ulNormal0.0-0.7The [facility] HospitalComment on above: Performed By: #### CBC #### [facility] [address] [address] [address] Sunil Copelandosinophils/100 WBC (Bld)1.2 %Normal0.9-7.0[facility] Comment on above:Performed By: #### CBC #### [facility] [address] [address] [address] Sunil Copelandrythrocyte distribution width (RBC) [Ratio]14.6 %Zghhfg37.0-15.0 [facility] DaytonComment on above:Performed By: #### CBC #### [facility] [address] [address] [address] Sunil ConnerHematocrit (Bld) [Volume fraction]31.6 %Critically low36.0-48.0 The [facility] HospitalComment on above:Performed By: #### CBC #### [facility] [address] [place] [address] Dr. Sunil ConnerHemoglobin (Bld) [Mass/Vol]9.9 g/dLCritically low12.0-16.0The [facility] HospitalComment on above:Performed By: #### CBC #### [facility] [address] [place] [address] Dr. Sunil Neumann #0.05 10e3/ulCritically high0.00-0.03[facility] Comment on above:Performed By: #### CBC #### [facility] [address] [place] [address] Dr. Sunil Neumann %0.5 %Normal0.0-0.5The [facility] HospitalComment on above: Performed By: #### CBC #### [facility] [address] [place] [address] Dr. Sunil Calhoun #2.4 103/ulNormal1.2-3.8The [facility] HospitalComment on above:Performed By: #### CBC #### [facility] [address] [place] [address] Dr. Sunil Tavareshocytes/100 WBC (Bld)25.6 %Ptbnai40.5-60.0The [facility] HospitalComment on above:Performed By: #### CBC #### [facility] [address] [place] [address] Dr. Sunil Lacy DIFF REQNONormalThe [facility] HospitalComment on above: Performed By: #### CBC #### [facility] [address] [place] [address] Dr. Sunil Bowie (RBC) [Entitic mass]25.8 pgCritically low26.7-34.0The [facility] HospitalComment on above:Performed By: #### CBC #### [facility] [address] [place] [address] Dr. Sunil Ayala (RBC) [Mass/Vol]31.3 g/dEUorygn30.9-35.2The [facility] HospitalComment on above:Performed By: #### CBC #### [facility] [address] [place] [address] Dr. Sunil AyalaV (RBC) [Entitic vol]82.3 fRNusdtf68.0-99.0The [facility] HospitalComment on above:Performed By: #### CBC #### [facility] [address] [place] [address] Dr. Sunil Chua #0.5 103/ulNormal0.3-0.8The [facility] HospitalComment on above:Performed By: #### CBC #### [facility] [address] [place] [address] Dr. Sunil Eastmanocytes/100 WBC (Bld)5.3 %Normal1.7-12.0[facility] Comment on above:Performed By: #### CBC #### [facility] [address] [place] [address] Dr. Sunil Choi #6.4 103/ulNormal1.4-6.5The [facility] HospitalComment on above:Performed By: #### CBC #### [facility] [address] [place] [address] Dr. Sunil Loerautrophils/100 WBC (Bld)67.1 %Maexqp66.0-75.0The [facility] HospitalComment on above:Performed By: #### CBC #### [facility] [address] [place] [address] Dr. Sunil Parralet mean volume (Bld) [Entitic vol]10.3 fLNormal9.5-13.5The [facility] HospitalComment on above:Performed By: #### CBC #### [facility] [address] [place] [address] Dr. Sunil BarajasT255 103/xyRsbkcr313-521Rei [facility] HospitalComment on above: Performed By: #### CBC #### [facility] [address] [place] [address] Dr. Sunil GibsonC3.84 106/ulCritically low4.20-5.40The [facility] HospitalComment on above:Performed By: #### CBC #### [facility] [address] [place] [address] Dr. Sunil ConnerWBC9.5 103/ulNormal4.0-11.0The [facility] HospitalComment on above: Performed By: #### CBC #### [facility] [address] [place] [address] Dr. Sunil ConnerGLUCOSE - 1HRon 35-23-8839Dkfstge [Mass/Vol]171 mg/dLCritically dkaf56-191Ixm [facility] HospitalComment on above:Performed By: #### HIV12 #### [facility] [address] [place] [address] Andriy KarenVAGINITIS/VAGINOSIS DNA PROBEon 72-10-7986Wvapjvh speciesPositive AbnormalNegativeThe [facility] HospitalComment on above:Performed By: #### VAGINT #### [facility] [address] [place] [address] Dr. Sunil Herreraerechente vaginalisNegativeNormalNegativeAccess Hospital [facility] Comment on above:Performed By: #### VAGINT #### [facility] [address] [place] [address] Dr. Sunil ConnerTrichomonas vaginalisNegativeNormalNegativeAccess [facility] Comment on above:Performed By: #### VAGINT #### [facility] [address] [place] [address] Dr. Sunil Kong PREG ANATOMY SINGLEon [id number] PREG ANATOMY SINGLE EXAMINATION: US PREG ANATOMY [...] weeks 3 days EFW:12 ounces, 47%; FL/AC: 0.123709 FL/BPD: 0.691987 HC/AC: 1.833146 GESTATIONAL AGE: Age by EDC: 20 weeks 4 days FAHEEM by EDC: 08/04/2021 Age by current US: 20 weeks 2 days FAHEEM by current US: 08/06/2021 IMPRESSION: Normal anatomy scan *Reference: [employer] Practice Guideline for the performance of Obstetric Ultrasound Examinations, March 25, 2007. Electronically authenticated by: NADIA DOOLEY Date: 2021-03-21 16:13[facility] ACOG PANEL 3: 21 to 29on 02-21-2021..NormalThe [facility] HospitalComment on above:Result Comment: Performed at: WBPerformed By: #### HIV12 #### [facility] [address] [place] [address] Andriy Robbins Gdln ACOG Qcqtrbw41-59UpopqtZrsSamaritan North Health CenterComment on above:Performed By: #### HIV12 #### [facility] [address] [address] Andriy KarenChlamydia, Nuc. Acid AmpNegativeNormalNegativeAccess Hospital [facility] Comment on above:Result Comment: Performed at: =GPerformed By: #### HIV12 #### [facility] [address] [address] Andriy KarenDIAGNOSIS:CommentAbDetwiler Memorial HospitalComment on above: Result Comment: EPITHELIAL CELL ABNORMALITY. LOW-GRADE SQUAMOUS INTRAEPITHELIAL LESION (LSIL); MILD DYSPLASIA. Performed at: WBPerformed By: #### HIV12 #### [facility] [address] [place] [address] Andriy KarenElectronically signed by:CommentChildren's Hospital for Rehabilitation on above:Result Comment: Kenneth العلي MD, Pathologist Performed at: WBPerformed By: #### HIV12 #### [facility] [address] [place] [address] Andriy KarenGonococcus, Nuc. Acid AmpNegativeNormalNegativeAccess [facility] [place] Comment on above:Result Comment: Performed at: =GPerformed By: #### HIV12 #### [facility] [address] [place] [address] Andriy KarenMethodology:CommentChildren's Hospital for Rehabilitation on above: Result Comment: This liquid based ThinPrep(R) pap test was screened with the use of an image guided system. Performed at: WBPerformed By: #### HIV12 #### [facility] [address] [place] [address] Andriy RodgersenNote:CommentNoSt. Charles Hospital on above:Result Comment: The Pap smear is a screening test designed to aid in the detection of premalignant and malignant conditions of the uterine cervix. It is not a diagnostic procedure and should not be used as the sole means of detecting cervical cancer. Both false-positive and false-negative reports do occur. . Performed at: WBPerformed By: #### HIV12 #### [facility] [address] [place] [address] Andriy RodgersenPathologist Provided CXC98ZrlhqgnFjgtbwUuvSt. Charles Hospital on above:Result Comment: [id number] Performed at: WBPerformed By: #### HIV12 #### [facility] [address] [place] [address] Andriy RodgersenPerformed by:CommentChildren's Hospital for Rehabilitation on above: Result Comment: Lilly Partida, Hat Maker (ASCP) Performed at: WBPerformed By: #### HIV12 #### [facility] [address] [place] [address] Andriy RodgersenRecommendation:CommentAbPremier Health Miami [facility] on above: Result Comment: Suggest follow up as clinically appropriate. Performed at: WBPerformed By: #### HIV12 #### [facility] [address] [address] Andriy KarenReflex Criteria:[facility] on above: Result Comment: The HPV DNA reflex criteria were not met with this specimen result therefore, no HPV testing was performed. . Performed at: WBPerformed By: #### HIV12 #### [facility] [address] [address] Andriy KarenSpecimen adequacy:CommentChildren's Hospital for Rehabilitation on above:Result Comment: Satisfactory for evaluation. Endocervical and/or squamous metaplastic cells (endocervical component) are present. Performed at: WBPerformed By: #### HIV12 #### [facility] [address] [place] [address] Andriy KarenAFP MATERNAL FOR SPINA BIFIDAon 22-28-9245LZJ MoM1.15NormalAccess Hospital DaytonCommunson healthcare cadillac hospital on above:Performed By: #### HIV12 #### [facility] [address] [address] Andriy KarenAFP Value35.0 ng/mLNMercy Health Fairfield Hospital on above: Performed By: #### HIV12 #### [facility] [address] [address] Andriy KarenAFP, Serum for Spina BifidaReportNoSamaritan North Health CenterCommunson healthcare cadillac hospital on above:Performed By: #### HIV12 #### [facility] [address] [place] [address] Andriy KarenCommentCommentChildren's Hospital for Rehabilitation on above:Result Comment: Eve Perez, Ph.D., [facility] Director . References: Available Upon Request. . Multiples Of Median Cutoffs For AFP Elevations Beebe 2.5 Black 2.8 IDD 2.0 Twins 4.5 Abbreviation Definitions IDD - Insulin Dep Diabetes OSBR - Open Spina Bifida Risk . For further inquiries contact [facility] at [phone].Performed By: #### HIV12 #### [facility] [address] [place] [address] Andriy RodgersenGest Age Collection Date16.0 weeksMemorial Health System Marietta Memorial HospitalCommunson healthcare cadillac hospital on above:Performed By: #### HIV12 #### [facility] [address] [place] [address] Andriy KarenGestat, Age Based onUltrasoundMemorial Health System Marietta Memorial HospitalCommunson healthcare cadillac hospital on above:Result Comment: 16.0 on 02/17/2021 Recalculations are not recommended when gestational dating by LMP and ultrasound are within 10 days.Performed By: #### HIV12 #### [facility] [address] [place] [address] Andriy KarenInsulin Dep DiabetesGalion Community HospitalComment on above: Performed By: #### HIV12 #### [facility] [address] [place] [address] Andriy KarenInterpretationComHolzer Medical Center – JacksonCommunson healthcare cadillac hospital on above: Result Comment: Interpretation: Screen [...] Customer Services to discuss available options. The [employer] recommends amniocentesis be offered to women age 35 and older.Performed By: #### HIV12 #### [facility] [address] [place] [address] Andriy RodgersenMaternal Age at EDD30.0 yrMemorial Health System Marietta Memorial HospitalCommunson healthcare cadillac hospital on above:Performed By: #### HIV12 #### [facility] [address] [place] [address] Andriy KarenMultiple GestationGalion Community HospitalCommunson healthcare cadillac hospital on above: Performed By: #### HIV12 #### [facility] [address] [place] [address] Andriy KarenOSBR Risk 1 [id number] North Health CenterComment on above: Performed By: #### HIV12 #### [facility] [address] [address] Andriy KarenPDF.NormalAccess Hospital DaytonComment on above:Performed By: #### HIV12 #### [facility] [address] [address] Andriy KarenRaceCaucasianNormalThe [facility]igh HospitalComment on above:Performed By: #### HIV12 #### [facility] [address] [address] Andriy KarenTest Results:NegativeNoSamaritan North Health CenterComment on above: Performed By: #### HIV12 #### [facility] [address] [address] Andriy KarenHEMOGLOBINOPATHY FRACTIONATION CASCADEon 79-04-6326NCA A97.3 %Normal 96.4-98.8The [facility]igh HospitalComment on above:Performed By: #### HGBCAS ####[facility] [address] [address]Gerken KarenHGB A22.7 %Normal1.8-3.2The [facility]igh HospitalComment on above:Performed By: #### HGBCAS ####[facility] [address] [place], [place] [address]Gerken KarenHGB F0.0 %Normal0.0-2.0The [facility] HospitalComment on above: Performed By: #### HGBCAS ####[facility] [address] [address]Gerken KarenHGB S0.0 %Normal0.0[facility] Comment on above:Performed By: #### HGBCAS ####[facility] [address] [address]Gerken KarenInterpretation:CommentMemorial Health System Marietta Memorial HospitalComment on above:Result Comment: Normal hemoglobin present; no hemoglobin variant or thalassemia observed.Performed By: #### HGBCAS ####[facility] [address] [place], [place] [address]Gerken KarenVARICELLA IGG ABon 02-07-2021 Varicella Zoster TeP152 indexNormalImmune >165The [facility] on above:Result Comment: Negative <135 Equivocal 135 - 165 Positive >165 A positive result generally indicates exposure to the pathogen or administration of specific immunoglobulins, but it is not indication of active infection or stage of disease.Performed By: #### VARCEL ####[facility] [address] [place] [address] VishalKlickitat Valley HealthEP B SURFACE ANTIGEN SCREENon 64-70-0568UDlSl ScreenNegativeNormalNegativeThe [facility]igh HospitalComment on above:Performed By: #### HBSANS #### [facility] [address] [place] [address] Andriy KarenHEPATITIS C ANTIBODYon 40-64-2420Wbr C Virus Ab<0.2Pdcnuz0.0-0.9The [facility] HospitalCommunson healthcare cadillac hospital on above:Result Comment: Negative: < 0.8 Indeterminate: 0.8 - 0.9 Positive: > 0.9 . The CDC recommends that a positive HCV antibody result be followed up with a HCV Nucleic Acid Amplification test (083725).Performed By: #### HCV ####[facility] [address] [place] [address] KarenHIV 1 AND 2 WITH REFLEXon 02-06-2021 HIV Screen 4th Generation wRfxNon-ReactiveNormalNon ReactiveThe [facility] HospitalComment on above:Performed By: #### HIV12 #### [facility] [address] [place] [address] KarenRPR QUANTon 29-95-2199Fmolo Plasma Reagin, QuantNon-ReactiveNormal NonRea<1:1The [facility] HospitalComment on above:Performed By: #### HIV12 #### [facility] [address] [place] [address] Andriy KarenRUBELLA AB IGGon 08-32-3278Rmvlnon Antibodies, IgG1.72 indexNormal Immune >0.99The [facility] HospitalComment on above:Result Comment: Non-immune <0.90 Equivocal 0.90 - 0.99 Immune >0.99Performed By: #### HIV12 #### [facility] [address] [place] [address] Andriy KarenCBC AUTO DIFFon 21-03-5778AGLF #0.0 103/ulNormal0.0-0.1The [facility] HospitalComment on above:Performed By: #### HBSANS #### [facility] [address] [place] [address] Andriy KarenBasophils/100 WBC (Bld)0.3 %Normal0.2-2.0The [facility] Comment on above:Performed By: #### HBSANS #### [facility] [address] [place] [address] Andriy KarenEO #0.2 103/ulNormal0.0-0.7The [facility] HospitalComment on above: Performed By: #### HBSANS #### [facility] [address] [place] [address] Andriy KarenEosinophils/100 WBC (Bld)1.7 %Normal0.9-7.0The [facility] Comment on above:Performed By: #### HBSANS #### [facility] [address] [place] [address] Andriy KarenErythrocyte distribution width (RBC) [Ratio]14.0 %Fnefrq11.0-15.0The [facility] HospitalComment on above:Performed By: #### HBSANS #### [facility] [address] [place] [address] Andriy KarenHematocrit (Bld) [Volume fraction]34.3 %Critically low36.0-48.0The [facility] HospitalComment on above:Performed By: #### HBSANS #### [facility] [address] [place] [address] Andriy KarenHemoglobin (Bld) [Mass/Vol]11.0 g/dLCritically low12.0-16.0The [facility] HospitalComment on above:Performed By: #### HBSANS #### [facility] [address] [place] [address] Andriy KarenIG #0.02 10e3/ulNormal0.00-0.03Access Hospital DaytonComment on above:Performed By: #### HBSANS #### [facility] [address] [place] [address] Andriy SegalG %0.2 %Normal0.0-0.5The [facility] HospitalComment on above: Performed By: #### HBSANS #### [facility] [address] [place] [address] Andriy SteinLYMPH #3.4 103/ulNormal1.2-3.8The [facility] HospitalComment on above: Performed By: #### HBSANS #### [facility] [address] [place] [address] Andriy SteinLymphocytes/100 WBC (Bld)38.7 %Jqklda96.5-60.0[facility] Comment on above:Performed By: #### HBSANS #### [facility] [address] [place] [address] Andriy SteinMANUAL DIFF REQNONormalAccess Hospital DaytonComment on above: Performed By: #### HBSANS #### [facility] [address] [place] [address] And[facility] SteinBETHES[facility] (RBC) [Entitic mass]27.2 sxYbclxb81.7-34.0[facility] Comment on above:Performed By: #### HBSANS #### [facility] [address] [place] [address] Andriy SteinHC (RBC) [Mass/Vol]32.1 g/vDXmxoun79.9-35.2[facility] Comment on above:Performed By: #### HBSANS #### [facility] [address] [place] [address] Andriy KarenV (RBC) [Entitic vol]84.9 vODkmesi79.0-99.0[facility] Comment on above:Performed By: #### HBSANS #### [facility] [address] [place] [address] Andriy KarenMONO #0.7 103/ulNormal0.3-0.8The [facility] HospitalComment on above: Performed By: #### HBSANS #### [facility] [address] [place] [address] Andriy KarenMonocytes/100 WBC (Bld)8.3 %Normal1.7-12.0The [facility] Comment on above:Performed By: #### HBSANS #### [facility] [address] [place] [address] Andriy RodgersenNEUT #4.4 103/ulNormal1.4-6.5The [facility] HospitalComment on above: Performed By: #### HBSANS #### [facility] [address] [place] [address] Andriy KarenNeutrophils/100 WBC (Bld)50.8 %Cqdgap11.0-75.0[facility] Comment on above:Performed By: #### HBSANS #### [facility] [address] [place] [address] Andriy KarenPlatelet mean volume (Bld) [Entitic vol]9.8 fLNormal9.5-13.5The [facility] HospitalComment on above:Performed By: #### HBSANS #### [facility] [address] [place] [address] Andriy OjnjgYNC226 103/yxEloomx500-913Qfm [facility] HospitalComment on above: Performed By: #### HBSANS #### [facility] [address] [place] [address] Andriy KarenRBC4.04 106/ulCritically low4.20-5.40The [facility] HospitalComment on above:Performed By: #### HBSANS #### [facility] [address] [place] [address] Andriy KarenWBC8.7 103/ulNormal4.0-11.0The [facility] HospitalComment on above: Performed By: #### HBSANS #### [facility] [address] [place] [address] Andriy KarenGLYCOHEMOGLOBIN A1Con 05-55-5070TXR RECOMMENDATIONADA THERAPEUTIC TARGET 6.0 - 7.0 ACTION SUGGESTED > 7.0[facility] HospitalCommunson healthcare cadillac hospital on above:Performed By: #### A1C ####[facility] [address] [address]Gerken KarenGlucose [Mass/Vol]111 mg/dLNoSamaritan North Health CenterCommunson healthcare cadillac hospital on above:Performed By: #### A1C ####[facility] [address] [address]Gerken IcgyuEnB9q (Bld) [Mass fraction]5.5 %Normal<=6.0[facility] on above:Performed By: #### A1C ####[facility] [address] [address]Gerken KarenGTT 3 HR PREGon 59-44-4845Vebnlic [Mass/Vol]79 mg/dLNormal 74-106The [facility] HospitalComment on above:Performed By: #### HBSANS #### [facility] [address] [address] Andriy KarenGlucose [Mass/Vol]117 mg/dLNoSamaritan North Health CenterCommunson healthcare cadillac hospital on above:Performed By: #### HBSANS #### [facility] [address] [place] [address] Andriy KarenGlucose [Mass/Vol]93 mg/dLNoSt. Charles Hospital on above:Performed By: #### HBSANS #### [facility] [address] [place] [address] Andriy KarenGlucose [Mass/Vol]46 mg/dLCritically lowThe [facility] HospitalCommunson healthcare cadillac hospital on above:Performed By: #### HBSANS #### [facility] [address] [place] [address] Andriy KarenTYPE AND SCREENon 01-53-1525FQMF AND SCREENAntibody Screen NEGATIVE Blood Bank Notes completed by [facility] ABO Rh Typing A Rh Positive Blood Bank Notes completed by [facility] on above:Performed By: #### TNS #### [facility] [address] [id number] Andriy KarenCULTURE URINEon 77-08-5701MPYKUTL URINECulture Observations: MODERATE GROWTH OF MIXED GENITAL HUBER. NO POTENTIAL PATHOGENS SEEN.NormalThe [facility] HospitalComment on above:Performed By: #### URCX ####[facility] [address] [address]Gerken KarenUA RANDOM W/MICROSCOPICon 08-82-2439YFMGOWNIKCRDYHsdasrgiRTBL SEENThe [facility] Comment on above:Performed By: #### HBSANS #### [facility] [address] [address] Andriy KarenBilirubin Ql (U)NegativeNormalNEGATIVEThe [facility] HospitalComment on above:Performed By: #### HBSANS #### [facility] [address] [place] [address] Andriy KarenCASTNONE SEENNormalNONE SEENThe [facility] HospitalComment on above: Performed By: #### HBSANS #### [facility] [address] [address] Andriy KarenClarity (U)CLEARNormalCLEARAccess Hospital DaytonComment on above: Performed By: #### HBSANS #### [facility] [address] [address] Andriy KarenColor (U)YELLOWNormalYELLOWAccess Hospital DaytonComment on above: Performed By: #### HBSANS #### [facility] [address] [address] Andriy KarenCrystals LM Nom (Urine sed)NONE SEENNormalNONE SEENAccess Hospital DaytonComment on above:Performed By: #### HBSANS #### [facility] [address] [address] Andriy KarenEpithelial cells LM Ql (Urine sed)FEWAbnormalNONE SEEN /RAREThe [facility] HospitalComment on above:Performed By: #### HBSANS #### [facility] [address] [address] Andriy KarenGlucose Ql (U)NegativeNormalNEGATIVEThe [place] HospitalComment on above:Performed By: #### HBSANS #### [facility] [address] [address] Andriy KarenHemoglobin Ql (U)NegativeNormalNEGATIVEMercy Health St. Anne Hospital HospitalComment on above:Performed By: #### HBSANS #### [facility] [address] [place] [address] Andriy KarenKetones Ql (U)TRACEAbnormalNEGATIVEMercy Health St. Anne Hospital HospitalComment on above:Performed By: #### HBSANS #### [facility] [address] [place] [address] Andriy KarenLEUKOCYTESNegativeNormalNEGATIVEMercy Health St. [facility] Hospital HospitalComment on above:Performed By: #### HBSANS #### [facility] [address] [place] [address] Andriy KarenMUCOUSSMALLAbnormalNONE SEENAccess Hospital DaytonComment on above: Performed By: #### JAMESANS #### [facility] [address] [place] [address] Andriy KarenNitrite Ql (U)NegativeNormalNEGATIVEAccess Hospital DaytonComment on above:Performed By: #### HBSANS #### [facility] [address] [place] [address] Andriy KarenpH (U)7.0 [pH]Normal5-9Access Hospital DaytonComment on above: Performed By: #### HBSANS #### [facility] [address] [place] [address] Andriy HqgaoJRT2-7Rrpltt6-3Mgp [place] HospitalComment on above:Performed By: #### HBSANS #### [facility] [address] [place] [address] Andriy KarenSPEC GRAVITY1.601Wjaqoa3.005-<=1.025The [place] HospitalComment on above:Performed By: #### HBSANS #### [facility] [address] [place] [address] Andriy KarenUA PROTEINNegativeNormalNEGATIVE/ TRACEThe [facility] HospitalComment on above:Performed By: #### HBSANS #### [facility] [address] [address] Andriy KarenUrobilinogen Qn (U)0.2 {Juanito'U}/dLNormal0.2 - 1.0The [facility] HospitalComment on above:Performed By: #### HBSANS #### [facility] [address] [place] [address] Andriy KarenWBCNONE SEENNormalNONE SEENAccess Hospital DaytonComment on above: Performed By: #### HBSANS #### [facility] [address] [place] [address] Andriy KarenBUNon 49-28-7295Rdeg nitrogen [Mass/Vol]5.0 mg/dLCritically low 7.0-17.0The [facility] HospitalComment on above:Performed By: #### TSH, LDH, BUN, URIC, ALT, AST ####[facility] [address] [address]Gerken KarenCBC AUTO DIFFon 55-58-9947NTWR #0.0 103/ulNormal0.0-0.1Access Hospital DaytonComment on above:Performed By: #### CBC #### [facility] [address] [place] [address] Andriy KarenBasophils/100 WBC (Bld)0.4 %Normal0.2-2.0[facility] Comment on above:Performed By: #### CBC #### [facility] [address] [place] [address] Andriy KarenEO #0.1 103/ulNormal0.0-0.7[facility] on above: Performed By: #### CBC #### [facility] [address] [place] [address] Andriy KarenEosinophils/100 WBC (Bld)1.1 %Normal0.9-7.0[facility] Comment on above:Performed By: #### CBC #### [facility] [address] [place] [address] Andriy KarenErythrocyte distribution width (RBC) [Ratio]14.6 %Onqeup55.0-15.0The [facility] HospitalComment on above:Performed By: #### CBC #### [facility] [address] [place] [address] Andriy KarenHematocrit (Bld) [Volume fraction]34.7 %Critically low36.0-48.0The [facility] HospitalComment on above:Performed By: #### CBC #### [facility] [address] [place] [address] Andriy KarenHemoglobin (Bld) [Mass/Vol]11.1 g/dLCritically low12.0-16.0The [facility] HospitalComment on above:Performed By: #### CBC #### [facility] [address] [place] [address] Andriy KarenIG #0.04 10e3/ulCritically high0.00-0.03The [facility] HospitalComment on above:Performed By: #### CBC #### [facility] [address] [place] [address] Andriy KarenIG %0.5 %Normal0.0-0.5The [facility] HospitalComment on above: Performed By: #### CBC #### [facility] [address] [place] [address] Andriy KarenLYMPH #2.1 103/ulNormal1.2-3.8The [facility] HospitalComment on above: Performed By: #### CBC #### [facility] [address] [place] [address] Andriy KarenLymphocytes/100 WBC (Bld)25.5 %Eqxfws95.5-60.0[facility] Comment on above:Performed By: #### CBC #### [facility] [address] [place] [address] Andriy KarenMANUAL DIFF REQNONormalThe [facility] HospitalComment on above: Performed By: #### CBC #### [facility] [address] [place] [address] Andriy KarenMCH (RBC) [Entitic mass]27.2 ulRrhacq19.7-34.0[facility] Comment on above:Performed By: #### CBC #### [facility] [address] [place] [address] [address] SteinBINGHAMTON [facility] (RBC) [Mass/Vol]32.0 g/fODfjmvc79.9-35.2[facility] Comment on above:Performed By: #### CBC #### [facility] [address] [place] [address] Andriy SteinCLAREMORE [facility] (RBC) [Entitic vol]85.0 dGHilbak05.0-99.0[facility] Comment on above:Performed By: #### CBC #### [facility] [address] [place] [address] Andriy SteinMONO #0.6 103/ulNormal0.3-0.8The [facility] HospitalComment on above: Performed By: #### CBC #### [facility] [address] [place] [address] Andriy KarenMonocytes/100 WBC (Bld)7.1 %Normal1.7-12.0[facility] Comment on above:Performed By: #### CBC #### [facility] [address] [place] [address] Andriy RodgersenNEUT #5.3 103/ulNormal1.4-6.5The [facility] HospitalComment on above: Performed By: #### CBC #### [facility] [address] [place] [address] Andriy KarenNeutrophils/100 WBC (Bld)65.4 %Hlaofc23.0-75.0[facility] Comment on above:Performed By: #### CBC #### [facility] [address] [place] [address] Andriy KarenPlatelet mean volume (Bld) [Entitic vol]9.5 fLNormal9.5-13.5The [facility] HospitalComment on above:Performed By: #### CBC #### [facility] [address] [place] [address] Andriy QhplhRKI980 103/rkZtwcxy532-287Lag [facility] HospitalComment on above: Performed By: #### CBC #### [facility] [address] [place] [address] Andriy KarenRBC4.08 106/ulCritically low4.20-5.40The [facility] HospitalComment on above:Performed By: #### CBC #### [facility] [address] [place] [address] Andriy KarenWBC8.1 103/ulNormal4.0-11.0The [facility] HospitalComment on above: Performed By: #### CBC #### [facility] [address] [place] [address] Andriy KarenCREATININE CLEARon 85-01-3248GIJM PJSTUSSAU12.46 ml/minCritically low75.00-115.00The [facility] HospitalComment on above:Performed By: #### HIV12 #### [facility] [address] [place] [address] Andriy KarenCREA, 24 HR UR579.12 mg/24 hrCritically wyb598.00-1,800.00The [facility] HospitalComment on above:Performed By: #### HIV12 #### [facility] [address] [place] [address] Andriy KarenCreatinine [Mass/Vol]0.53 mg/dLNormal0.52-1.04The [facility] Comment on above:Performed By: #### HIV12 #### [facility] [address] [place] [address] Andriy KarenURINE CREAT30.48 mg/yFXqfuop70.00-300.00The [facility] HospitalComment on above:Performed By: #### HIV12 #### [facility] [address] [place] [address] Andriy KarenGLUCOSE - 1HRon 24-05-5363Gokmxpw [Mass/Vol]150 mg/dLCritically high 74-106The [facility] HospitalComment on above:Performed By: #### GLU1HR ####[facility] [address] [place], [place] [address]Btjree KarenLDHon 72-09-5383XVU911 U/EFjgtzx665-148Xal [facility] on above:Performed By: #### TSH, LDH, BUN, URIC, ALT, AST ####[facility] [address] [address]Ger[place] KarenPROTEIN 24HR URINEon 01-26-2021T PROT, 24 HR UR32.3 mg/24 hrCritically low42.0-225.0[facility] on above:Performed By: #### [id number] ####[facility] [address] KarenUR PROT 1.7 mg/dLNormal<=12.0[facility] on above:Performed By: #### [id number] ####[facility] [address] KarenUR TOT VLQ9599 ml/24 HRNormalThe [facility] HospitalCommunson healthcare cad[facility] hospital on above:Performed By: #### [id number] ####[facility] [address] VishalenPerformed By: #### HIV12 #### [facility] [address] [place], [place] [address] Hospitallogan RodgersSpecial Care Hospital 66-25-1975RIW [Catalytic activity/Vol]17 U/ZRqwyir98-16Ehy [facility] on above:Performed By: #### TSH, LDH, BUN, URIC, ALT, AST ####[facility] [address] SeverinoTon 60-24-2753NCE [Catalytic activity/Vol]16 U/LNormal9-52 [facility] on above:Performed By: #### TSH, LDH, BUN, URIC, ALT, AST ####[facility] [address] VishalenTSHon 28-15-5054GRB8.220 uIU/mLCritically low0.470-4.680The [facility] HospitalComment on above:Performed By: #### TSH, LDH, BUN, URIC, ALT, AST ####[facility] [address] VishalenTSH RANGESEE BELOWNoSamaritan North Health CenterComment on above: Result Comment: <0.34 UIU/ml HYPERTHYROID 0.34-5.60 UIU/ml EUTHYROID >5.60 UIU/ml HYPOTHYROIDPerformed By: #### TSH, LDH, BUN, URIC, ALT, AST ####[facility] F[address]cy[address] KarenURIC ACID SERUMon [id number] [Mass/Vol]3.6 mg/dLNormal2.5-6.2The [facility]beigh HospitalComment on above:Performed By: #### TSH, LDH, BUN, URIC, ALT, AST ####[facility] [address] [place] [address] KarenUS PREG TVon [id number] PREG TVEXAMINATION: US PREG TV HISTORY: Secondary [...] Electronically authenticated by: ANGELO BLANKENSHIP Date: 2021-01-24 10:12NoTri[facility] HospitalABO AND RH TYPEon [id number] and Rh group Nom (Bld)ABO Rh Typing A Rh PositiveNoSamaritan North Health CenterComment on above:Performed By: #### ABORH ####[facility] [address] [place] [address] KarenPREG QUANT HCGon 29-17-0477BAP WDJAQ00738 mIU/mLNSt. Mary's Medical CenterComment on above:Result Comment: Previously reported as: 3 On 01/19/2021 11:21 By TY2Wccklqzvd By: #### HIV12 #### [facility] [address] [address] Andriy RojasCChester RANGESMercy Health Fairfield HospitalComment on above:Result Comment: 5-50 0-1 WEEK 40-300 1-2 WEEKS 100-1,000 2-3 WEEKS 500-6,000 3-4 WEEKS 5,000-200,000 1-2 MONTHS 10,000-100,000 2-3 MONTHS 3,000-50,000 2ND TRIMESTER 1,000-50,000 3RD TRIMESTERPerformed By: #### HIV12 #### [facility] [address] [address] Andriy Stein Vital Signs Date TimeVital SignValuePerforming NbsmzeehqSqeglaeg14-87-5237 11:06-0400Body mass index (BMI) [Ratio]34.47 kg/p1Uimmv Jenny DO Work Phone: [facility] WestFnwblxpuoz16-61-8636 11:06-0400Body fujfyc23.08 kgCorey Jenny DO Work Phone: [phone] by [facility] WestGpjhexdtqr36-73-0736 11:06-0400Diastolic blood vhqknmet99 mm[Hg]Scooby Jenny DO Work Phone: [phone]-Replaced by [facility] WestKrfrsdwzmq90-50-3077 11:06-0400Systolic blood eksxipsy614 mm[Hg]Scooby Jenny DO Work Phone: [facility] WestUcwmclwlub43-40-1013 13:35-0400Body mass index (BMI) [Ratio]33.77 kg/m2Deborah RUBIN Work Phone: [phone] WestLawevsslfk32-14-9291 13:35-0400Body mqtmvy73.25 kgDeborah RUBIN Work Phone: [facility] WestWkobgmevsj52-38-8349 13:35-0400Diastolic blood gxeslyku32 mm[Hg]Deborah Aquiles PA Work Phone: [facility] WestXuqztxwwdi88-25-1499 13:35-0400Systolic blood xyoigcmr434 mm[Hg]Deborah Kwan PA Work Phone: [phone] [place], [place] [address]Mywgvprqeo54-28-9220 11:04-0400Body mass index (BMI) [Ratio]33.77 kg/e1IcpnpcrtJme Ambrosio POLICE DETECTIVE Work Phone: [phone] [place], [place] [address]Tbatdxunjm19-81-7377 11:04-0400Body esuuyl93.25 kgJem Bolivarerly POLICE DETECTIVE Work Phone: [phone] [place], [place] [address]Mqiekwhhhh00-81-5898 11:04-0400Diastolic blood xzkfyrbw39 mm[Hg]Jem Bolivarerly POLICE DETECTIVE Work Phone: [phone] [place], [place] [address]Ymjhwpdfhq64-10-3193 11:04-0400Systolic blood zhjotcta173 mm[Hg]Jem Bolivarerly POLICE DETECTIVE Work Phone: [phone] [place], [place] [address]Zftbhqdlcq35-97-3149 13:25-0400Body mass index (BMI) [Ratio]33.44 kg/m2Deborah Aquiles PA Work Phone: [phone] [place], [place] [address]Fbusgyhlur68-63-6565 13:25-0400Body .36 kgDeborah Aquiles PA Work Phone: [phone] [place], [place] [address]Uvrdluldeb79-44-6908 13:25-0400Diastolic blood lvbdihjw20 mm[Hg]Deborah Kwan PA Work Phone: [phone] [place], [place] [address]Ewveffhhqe67-82-1641 13:25-0400Systolic blood wnyrbmvw114 mm[Hg]Deborah Kwan PA Work Phone: [phone] [place], [place] [address]Fuerkqqwlh18-78-5033 15:09-0400Body mass index (BMI) [Ratio]33.3 kg/m2Deborah Kwan PA Work Phone: [phone] [place], [place] [address]Tfvheiajkw33-40-0299 15:09-0400Body brezkb78 kg Deborah Kwan PA Work Phone: [phone] [place], [place] [address]Kshswccwux19-34-3718 15:09-0400Diastolic blood ynckkmzm05 mm[Hg]Deborah Kwan PA Work Phone: [facility] WestLgbpjynrwj37-26-0092 15:09-0400Systolic blood mm[Hg]Deborah RUBIN Work Phone: [phone] by [facility] WestHffpeinfyp74-36-9464 15:03-0400Body mass index (BMI) [Ratio]33 kg/n7Zjyup Jenny DO Work Phone: [facility] WestYlpshwksff42-21-7717 15:03-0400Body adsrxm84.2 kg Scooby Jenny DO Work Phone: [phone] [place], [place] [address]Jmaaouosqa05-43-3976 15:03-0400Diastolic blood bgbeigxk65 mm[Hg]Scooby Jenny DO Work Phone: [phone] [place], [place] [address]Qhxngyklnb04-92-4240 15:03-0400Systolic blood fogpzkud693 mm[Hg]Scooby Jenny DO Work Phone: [phone] [place], [place] [address]Wakfljetdi82-09-4834 13:37-0400Body mass index (BMI) [Ratio]32.79 kg/m2Deborah Aquiles RUBIN Work Phone: [phone] [place], [place] [address]Lawlbhgojn03-37-6007 13:37-0400Body rrostj21.64 kgDeborah Aquiles RUBIN Work Phone: [phone] [place], [place] [address]Cnzgmrmrdo71-07-1206 13:37-0400Diastolic blood odreekss37 mm[Hg]Deborah RUBIN Work Phone: [phone] [place], [place] [address]Rnljnajdjk25-05-4346 13:37-0400Systolic blood dofvmyhs901 mm[Hg]Deborah RUBIN Work Phone: [phone] [place], [place] [address]Tmavdhmysj74-44-0297 10:26-0400Body .6 cmCorey Jenny DO Work Phone: [phone] [place], [place] [address]Vtpzdittar44-04-8891 10:25-0400Body mass index (BMI) [Ratio]32.27 kg/u9Zwuzo Jenny DO Work Phone: [phone] [place], [place] [address]Ahmannhfcn56-06-8242 10:25-0400Body wbamkv49.28 kgCorey Jenny DO Work Phone: [phone] [place], [place] [address]Msjpyrfwee03-43-5403 10:25-0400Diastolic blood hggwyjwc17 mm[Hg]Scooby Jenny DO Work Phone: [phone] [place], [place] [address]Lgnltfoizd53-11-7606 10:25-0400Systolic blood rosmwvnt354 mm[Hg]Scooby Jenny DO Work Phone: [phone] [place], [place] [address]Hpoiolypgf51-46-4211 15:59-0400Body mass index (BMI) [Ratio]34.57 kg/t1NijofaOma Davis RN Work Phone: [phone] [place], [place] 4396306-02-2025 15:59-0400Body .73 kgOma Davis RN Work Phone: [phone] [place], [place] 4396305-22-2025 10:57-0400Body adyyxn94.09 kgCorey Jenny DO Work Phone: [phone] [place], [place] [address]Hafcoyawxm56-40-4558 10:57-0400Diastolic blood khqunopt84 mm[Hg]Scooby Jenny DO Work Phone: [phone] [place], [place] [address]Kfzphuqlik89-51-3415 10:57-0400Systolic blood atgzfncd104 mm[Hg]Scooby Jenny DO Work Phone: [phone] [place], [place] [address]Iwvmhferxd37-01-2559 14:37-0400Body .84 kgMer[facility]04-24-2025 14:37-0400Diastolic blood kublldnz37 mm[Hg][facility]04-24-2025 14:37-0400Systolic blood ulfnqmsb558 mm[Hg][facility]01-15-2022 13:35-0500Body ghuwcdeokxj48.4 [degF] Renita Canseco Other [employer] Other 01-15-2022 13:35-4161JuA2% (BldA) [Mass fraction]98 % Renita Canseco Other [employer] Other 08-28-2021 04:06-0400Body .0088 kgANDREA OTOOLE The Glenbeigh HospitalComment on above:Performed By: #### HIV12 #### [facility] [address] [address] Andriy Stein Encounters Encounter DateEncounter TypeCare ProviderFacilityStart: 04-14-2025 End: 27-25-4813Nnaevw flowsheetCorey Jenny DO Work Phone: [facility] [place] [facility]BGYNStart: 04-14-2025 End: 13-45-2332Gtbzuf flowsheetCorey Jenny DO Work Phone: [facility] [place] [facility]BGYNStart: 04-14-2025 End: 90-43-1891Ljjwfd outpatient visit 15 minutesCorey Jenny DO Work Phone: [facility] [place] OBGYNComment on above:Third trimester ([facility]); 37 weeks gestation of ([facility])Start: 04-14-2025 End: 45-96-0735aeejjnqgnwLOKVB FAZIONot AvailableStart: 04-07-2025 End: 73-10-8947Sglsus flowsRocky RUBIN Work Phone: [facility] [place] [facility]BGYNStart: 04-07-2025 End: 91-24-5045Mbayob Magdy RUBIN Work Phone: [facility] [place] [facility]BGYNStart: 04-07-2025 End: 95-71-2221Zcyjeo outpatient visit 15 minutesAmy Aquiles RUBIN Work Phone: [facility] [place] OBGYNComment on above:Third trimester ([facility]); 36 weeks gestation of ([facility])Start: 04-07-2025 End: 78-29-1320wiwdvodsxaNKX [place] AvailableStart: 03-31-2025 End: 21-74-8996Drdqqtqnn Result EncounterJem Ambrosio NP Work Phone: [facility] External Department UnsolicitedStart: 03-31-2025 End: 38-82-6127Jowcmzuow Result EncounterJem Ambrosio POLICE DETECTIVE Work Phone: [facility] External Department UnsolicitedStart: 03-24-2025 End: 28-87-9966Vmlwsi flowsheetJem Ambrosio POLICE DETECTIVE Work Phone: [facility] [place] [facility]BGYNStart: 03-24-2025 End: 40-40-7712Wtoisx flowsLaura Ambrosio POLICE DETECTIVE Work Phone: [facility] [place] [facility]BGYNStart: 03-24-2025 End: 23-84-7924Cahijn outpatient visit 15 minutesJem Ambrosio POLICE DETECTIVE Work Phone: [facility] [place] OBGYNComment on above:34 weeks gestation of ([facility]); Third trimester ([facility]); Gestational diabetes mellitus (GDM) in third trimester, gestational diabetes method of control unspecified ([facility])Start: 03-24-2025 End: 65-35-5580vnhutcqoxnPACXZGEH EBERLYNot AvailableStart: 03-20-2025 End: 55-54-3558Zqtjilaxm [facility] LDMaternal- Medicine at [facility] Medical Centertart: 03-10-2025 End: 25-02-0878Dgmmed Magdy RUBIN Work Phone: [facility] [place] [facility]BGYNStart: 03-10-2025 End: 09-42-0933Xgpwxn Magdy RUBIN Work Phone: [facility] [place] [facility]BGYNStart: 03-10-2025 End: 27-86-2354Wlvzbe outpatient visit 15 minutesDeborah RUBIN Work Phone: [facility] [place] OBGYNComment on above:32 weeks gestation of ([facility]); Third trimester ([facility])Start: 03-10-2025 End: 20-41-0483mjmrideomtLSY RAMEYNot AvailableStart: 02-25-2025 End: 14-23-3696fpdmsyacgmDGX RAMEYNot AvailableStart: 02-16-2025 End: 22-93-1003lijocxmhrjOMU RAMEYNot AvailableStart: 02-16-2025 End: 62-81-5274Pegask outpatient visit 15 minutesDeborah RUBIN Work Phone: [facility] [place] OBGYNComment on above:Size of fetus inconsistent with dates in second trimester ([facility]) (Primary Dx); 28 weeks gestation of ([facility]); Third trimester ([facility])Start: 02-16-2025 End: 13-69-2413Spbyrm Magdy RUBIN Work Phone: [facility] [place] [facility]BGYNStart: 02-16-2025 End: 62-33-3260Zmvidu Magdy RUBIN Work Phone: [facility] [place] [facility]BGYNStart: 02-13-2025 End: 18-00-4241Psccrojog Result EncounterCorey Jenny DO Work Phone: [facility] External Department UnsolicitedStart: 02-13-2025 End: 25-27-3114Nblyywgfk Result EncounterCorey Jenny DO Work Phone: [facility] External Department UnsolicitedStart: 02-02-2025 End: 40-80-6058Idzboh outpatient visit 15 minutesCorey Jenny DO Work Phone: [facility] [place] OBGYNComment on above:Second trimester ([facility]); 26 weeks gestation of ([facility]); Diabetes mellitus screeningStart: 02-02-2025 End: 35-23-8863avvjderwmrBSFOQ FAZIONot AvailableStart: 02-02-2025 End: 25-18-8452Mwtenf flowsheetCorey Jenny DO Work Phone: [facility] [place] [facility]BGYNStart: 02-02-2025 End: 87-66-7089Eoqaxz flowsheetCorey Jenny DO Work Phone: [facility] [place] [facility]BGYNStart: 01-26-2025 End: 41-25-2369vqsuxvkqlgCVGVI FAZIONot AvailableStart: 01-01-2025 End: 51-27-5822Wwdunp flowsRocky RUBIN Work Phone: [facility] BCP OBStart: 01-01-2025 End: 64-83-0596Yfithp flowsheetDeborah RUBIN Work Phone: [facility] BCP OBStart: 01-01-2025 End: 56-93-1627Wwogypcp flow sheetDeborah RUBIN Work Phone: [facility] OBComment on above:Second trimester ([facility]); 22 weeks gestation of ([facility])Start: 01-01-2025 End: 58-55-4397zrbzgowsdtABR [place] AvailableStart: 12-19-2024 End: 98-64-5897Advvsemtp Result EncounterCorey Jenny DO Work Phone: [facility] External Department UnsolicitedStart: 12-19-2024 End: 75-25-9127Heurovhtc Result EncounterCorey Jenny DO Work Phone: [facility] External Department UnsolicitedStart: 12-04-2024 End: 91-15-8587Bskhek flowsheetCorey Jenny DO Work Phone: [facility] BCP OBStart: 12-04-2024 End: 58-96-1834Ombask flowsheetCorey Jenny DO Work Phone: [facility] BCP OBStart: 12-04-2024 End: 63-44-2600Lsulfzfqv Result EncounterCorey Jenny DO Work Phone: [facility] External Department UnsolicitedStart: 12-04-2024 End: 90-40-8009Qjxuqngt Result EncounterDeborah RUBIN Work Phone: noMS External Department UnsolicitedStart: 12-04-2024 End: 84-60-5980Xuzrnhenp encounterDeyarelis STAPLES Work Phone: [phone]-Cdfen Medicine at [facility] Start: 12-04-2024 End: 98-62-8352peoiisdjimIACLP FAZIONot AvailableStart: 12-04-2024 End: 30-55-6666Qlghqqn encounter procedureCorey Jenny DO Work Phone: noms HealthcareStart: 12-04-2024 End: 54-19-2457Grsqdhjy flow sheetCorey Jenny DO Work Phone: noms BCP OBComment on above:Second trimester ([facility]); 18 weeks gestation of ([facility]); Well woman exam with routine gynecological exam; Screening, , for anatomic survey ([facility]); Screen for STD (sexually transmitted disease); Need for maternal serum alpha-protein (MSAFP) screening ([facility])Start: 11-24-2024 End: 28-28-5370oycekfmfffMbxzjv M Frey RN Work Phone: [phone]-Tqzvt Medicine at [facility] Comment on above:Gestational diabetes mellitus (GDM) in second trimester, gestational diabetes method of control unspecifiedStart: 11-13-2024 End: 66-95-4915Ttgxirke flow sheetCorey Jenny DO Work Phone: noms BCP OBComment on above:15 weeks gestation of ; Second trimester ; Diet controlled gestational diabetes mellitus (GDM), antepartum; Gestational diabetes mellitus (GDM), antepartum, gestational diabetes method of control unspecified; Elevated glucose tolerance testStart: 11-13-2024 End: 25-95-8719cgkblqmmqvDJTQZ FAZIONot AvailableStart: 11-11-2024 End: 54-74-4018Seknymbnc Result EncounterCorey Jenny DO Work Phone: noms External Department UnsolicitedStart: 11-11-2024 End: 84-11-6135Zbqbmhogg Result EncounterCorey Jenny DO Work Phone: noms External Department UnsolicitedStart: 10-16-2024 End: 68-09-1493Exndev outpatient visit 5 minutesNoms Bcp Ob Jenny NurseNOMS BCP OBComment on above:GA: 70k2kTkuci: 10-16-2024 End: 81-60-4503ebqwtdbnviYRVYR FAZIONot AvailableStart: 12-20-2023 End: 59-53-4792zdqbuvbmadDR PCP NO PCPBarney [facility]'s [facility] Center HospitalStart: 12-19-2023 End: 72-55-5111Zjquczwen department patient visitAMBER [facility] Centertart: 12-19-2023 End: 29-62-7695Szaoaebft department patient visitNO PCP NO PCPBarney Children's Medical Center HospitalStart: 03-01-2022 End: 94-97-1641vffeasphzvIukrlz Paco MastersonFacility:St. [facility] Hospitaltart: 11-08-2021 End: 97-63-6607nerzfbxiipHD SCOOBY FAZIOFacility:T4Xuuvx: 08-01-2021 End: 70-22-4208gqhpaxahyhRI SCOOBY FAZIOFacility:I3Xolse: 07-30-2021 End: 34-32-7226Whctwwbyjb and management of inpatientDR SCOOBY FAZIOFacility:H1 Start: 07-13-2021 End: 63-91-5515dkiyfbjlieAP SCOOBY FAZIOFacility:Y8Jsgzj: 07-11-2021 End: 68-62-9750yomhrtnxmyAH NADIA Blankcility:S3Mamkw: 07-09-2021 End: 36-46-5187ohsmiqfxhiSzmrd Ajith Other [facility] [employer] Other Start: 76-27-4103Cgfdzq outpatient visit 15 minutes Renita GintyFPG Urgent Care ClydeStart: 07-06-2021 End: 43-81-1524ypqoivyrfoIZ SCOOBY FAZIOFacility:S2Lihqx: 06-20-2021 End: 73-56-5309yrfrpvtyyhTL NADIA Blankcility:U1Argfx: 06-08-2021 End: 78-26-0871veidwwurhmZJ SCOOBY FAZIOFacility:B5Ppjee: 05-04-2021 End: 54-37-2929hdvdjphtiiCKLERZ MOOREFacility:I3Cxqsx: 04-30-2021 End: 12-24-2939wfpbocqvtpSNICTG MOOREFacility:Z1Jwkug: 04-28-2021 End: 62-47-1459adrckofaufEIKCRT MOOREFacility:I2Uxtlu: 04-20-2021 End: 07-59-7585vjdzkngpokTZEZMK MOOREFacility:L1Efkzz: 04-07-2021 End: 96-16-2745odiqwzbcqbKWEAF HIGHLANDERFacility:R5Kfyep: 03-21-2021 End: 52-93-8318jhibxzljpfVZEEGN MOOREFacility:A0Nnmor: 02-17-2021 End: 03-30-3240mfszfutpicITJAHB MOOREFacility:J6Jkpgp: 02-05-2021 End: 49-57-1853sojgnicmveIGAINK MOOREFacility:F3Tggmz: 01-28-2021 End: 65-17-1367lulytbmjihOBRGFM MOOREFacility:Y1Onrju: 01-26-2021 End: 31-98-5996acpcpctwyrLIPCQZ MOOREFacility:Y8Varfz: 01-24-2021 End: 28-41-8962kygfzyrarmQNJLCE MOOREFacility:E0Cgngo: 01-19-2021 End: 96-75-8477rxmioxiyrvKHKJLD MOOREFacility:H1 Procedures DateProcedureProcedure DetailPerforming ClinicianStart: 42-98-6525Aogot dip stick/tablet rgnt non-auto w/o micrscpCorey Jenny DO Work Phone: Start: 82-03-2834Finhp dip stick/tablet rgnt non-auto w/o micrscpAmy Aquiles RUBIN Work Phone: Start: 94-48-9829GY OB BPP W NON-STRESSKristina Hebert POLICE DETECTIVE Work Phone: Start: 38-47-7365Bdrtt dip stick/tablet rgnt non-auto w/o micrscpKristina Hebert POLICE DETECTIVE Work Phone: Start: 84-72-4612Xbswp dip stick/tablet rgnt non-auto w/o micrscpAmy Aquiles PA Work Phone: Start: 43-48-0611XRK CBC WITH AUTO DIFFCorey Jenny DO Work Phone: Start: 35-82-1060Hxudi dip stick/tablet rgnt non-auto w/o micrscpCorey Jenny DO Work Phone: [phone]: 03-76-0630Hmtdn dip stick/tablet rgnt non-auto w/o micrscpAmy Aquiles RUBIN Work Phone: Start: 04-51-6919AF OB ANATOMYCorey Jenny DO Work Phone: [phone]: 89-53-8782PB OB CERVICAL LENGTHCorey Jenny DO Work Phone: Start: 11-97-1791EZJUEPVLQ VAGINITIS (HTRX)Deborah RUBIN Work Phone: Start: 64-33-3247Qemzy dip stick/tablet rgnt non-auto w/o micrscpCorey Jenny DO Work Phone: Start: 73-78-3867DKG,APTIMA HPV,AGE GDLNCorey Jenny DO Work Phone: Start: 77-98-0345Ehvxwwfejbn observation [Identifier] in Cervix by Cyto stainCorey Jenny DO Work Phone: Start: 76-26-9709Mwegllb quantitative blood xcpt reagent stripCoshalom Schroeder PA-C Work Phone: Start: 30-78-8819Yqvgk dip stick/tablet rgnt non-auto w/o micrscpCorey Jenny DO Work Phone: Start: 95-21-0151JRR TESTCorey Jenny DO Work Phone: Start: 10-16-2024 End: 50-38-3032Kzwus dip stick/tablet rgnt non-auto w/o micrscpCorey Jenny DO Work Phone: Start: 62-81-2886Fphcsnem of Products of Conception, External ApproachANDARIADNA RICEStart: 65-41-4907Wtlltzho of Amniotic Fluid, Therapeutic from Products of Conception, Via Natural or Artificial OpeningANDPaco RICEStart: 10-92-7287Izufgywlslqw of Other Hormone into Peripheral Vein, Percutaneous ApproachANDARIADNA RICEStart: 19-79-3725Bmlela Perineum Skin, External ApproachRENAY OTOOLE Plan of Treatment DateCare ActivityDetailAuthorStart: 18-53-2856BVyQ,Tdap and Td Vaccines (3 - Td or Tdap)DTaP,Tdap and Td Vaccines (3 - Td or Tdap)[facility] SystemStart: 07-31-1060Mbheysqtj for malignant neoplasm of cervixNOCitizens Memorial HealthcareStart: 71-26-3973Ighqs BMI ScreeningAdult BMI ScreeningAlleghany Healthtart: 06-15-2025 End: 14-38-0045dxpgysbpbd17/22/2025 9:50 AM EST Visit SHERLY MARES [address] [place], [id number] Scooby Alvarado DO [address] [place] [place], [place] [address] NOMMyra MENCHACANStart: 04-21-2025 End: 21-68-2957Zblclxd encounter rmxzdubbq51/28/2025 2:20 PM EDT Routine NOMMyra MARES [address] [place], [id number] Deborah Kwan PA [address] [place] [address] NOMMyra TURKtart: 04-14-2025 End: 79-44-1267Jccrvfl encounter procedureNOMS [place] MENCHACANComment on above: ArrivedStart: 04-07-2025 End: 95-27-1505JJKRORG, GROUP B STREP WITH SUSCEPTIBLITYCULTURE, GROUP B STREP WITH SUSCEPTIBLITY Lab Routine Third trimester ([facility]) Expected: 04/07/2025, Expires: 04/07/2026[facility] Work Phone: comment on above:Expected: 04/07/2025, Expires: 04/07/2026Start: 04-07-2025 End: 02-56-4399Sbjgyjp encounter procedureNOMS [place] OBGYNComment on above: ArrivedStart: 03-24-2025 End: 37-75-6515CA biophysical profile w non stress testUS biophysical profile w non stress test Imaging Routine Third trimester ([facility]) Expected: 03/24/2025 (Approximate), Expires: 09/21/2025[facility] Work Phone: comment on above:Expected: 03/24/2025 (Approximate), Expires: 09/21/2025Start: 03-24-2025 End: 77-40-7773Ngnlhxl encounter procedureNOMS [place] OBGYNComment on above: ArrivedStart: 03-10-2025 End: 73-92-0581Khqqaqw encounter vhogwvfdk04/16/2025 1:20 PM EDT Routine [facility] [place] [address] [place], [id number] Deborah Kwan PA [address] [place] [address] ArrivedNOMS Dago OBGYNComment on above:ArrivedStart: 03-03-2025 End: 12-92-3995Mhonxbl encounter unibsxzmm57/09/2025 2:40 PM EDT Routine [facility] [place] [facility] [address] [place], [id number] Scooby Alvarado DO [address] [place] [address] N[facility] OBGYNStart: 02-25-2025 End: 58-36-6467Fkoabwhwqmcz / ancillary services lfmwemgulp45/03/2025 3:00 PM EDT Ancillary Procedure [facility] [place] [facility] [address] [place] [address] [facility] [place] OBGYNStart: 51-99-4412UZBJH-19 Vaccine ( season)COVID-19 Vaccine ( season)[facility] Start: 12-45-8803Tefbkkvtk vaccinationProMercy Health – The Jewish Hospitalca Health SystemStart: 02-16-2025 End: 59-40-3480Hnjxnze encounter /25/2025 2:30 PM EDT Routine [facility] [place] [address] [place], [id number] Deborah Kwan PA [address] [place], [place] [id number] [facility] [place] OBGYNStart: 02-16-2025 End: 19-97-3589ZW for pregnancyUS OB follow up transabdominal approach Imaging Routine Size of fetus inconsistent with dates in second trimester ([facility]) Expected: 02/16/2025, Expires: 06/18/2025[facility] Work Phone: comment on above:Expected: 02/16/2025, Expires: 06/18/2025Start: 02-02-2025 End: 28-43-2407Sdrsuha encounter procedureNOMS BCP OBComment on above:Arrived Start: 02-02-2025 End: 87-81-5402GPE panel - Blood by Automated countCBC Lab Routine Diabetes mellitus screening Expected: 02/02/2025 (Approximate), Expires: 02/02/2026[facility] Work Phone: comment on above:Expected: 02/02/2025 (Approximate), Expires: 02/02/2026Start: 01-20-2025 End: 32-83-6502Ueiyrdcypydo / ancillary services fntwvyzthv79/29/2025 3:00 PM EDT Ancillary Procedure [facility] [address] [place] [address] [facility] OBStart: 01-01-2025 End: 09-38-1637Lxiqlmm encounter procedureNONJ BCP OBComment on above:Arrived Start: 53-99-5811Leehbea ScreeningTobacco ScreeningProParkwood Hospital SystemStart: 07-03-6195Saqeh BMI ScreeningAdult BMI ScreeningPeoples Hospital SystemStart: 12-04-2024 End: 61-10-2399Umtoi fetoprotein, maternalAlpha fetoprotein, maternal Lab Routine Need for maternal serum alpha-protein (MSAFP) screening ([facility]) Expected: 12/04/2024 (Approximate), Expires: 01/03/2025[facility] HealthcareComment on above:Expected: 12/04/2024 (Approximate), Expires: 01/03/2025Start: 12-04-2024 End: 56-73-3860SD for pregnancyUS OB 14+ weeks anatomy scan Imaging Routine Screening, , for anatomic survey ([facility]) Expected: 12/04/2024, Expires: 03/06/2025[facility] HealthcareComment on above:Expected: 12/04/2024, Expires: 03/06/2025Start: 12-04-2024 End: 30-84-1631Aexjxfj encounter nydskywlo87/12/2025 9:40 AM EDT Routine [facility] [address] [facility] [place] [id number] Scooby Alvarado, DO [address] [place], [place] [address] [place] [address] [facility] OBStart: 11-13-2024 End: 95-18-2272Lfddffa encounter vkxvibuub01/22/2025 10:40 AM EDT Routine [facility] [address] [facility] [place] [phone] Scooby Alvarado, DO [address] [place] [address] [facility] OBStart: 10-16-2024 End: 34-00-8128FSJ/RhABO/Rh Lab Routine Missed menses , unspecified gestational age Expected: 10/16/2024 (Approximate), Expires: 10/16/2025[facility] HealthcareComment on above:Expected: 10/16/2024 (Approximate), Expires: 10/16/2025Start: 10-16-2024 End: 56-55-5874Bevhs type and Indirect antibody screen panel - BloodType and screen Lab Routine Missed menses , unspecified gestational age Expected: 10/16/2024 (Approximate), Expires: 10/16/2025[facility] Healthcare Work Phone: comment on above:Expected: 10/16/2024 (Approximate), Expires: 10/16/2025Start: 10-16-2024 End: 07-33-4541Armgc of abuse panel - Urine by Screen methodRapid drug screen, urine Lab Routine , unspecified gestational age Encounter for supervision of normal first in first trimester Expected: 10/16/2024 (Approximate), Expires: 10/16/2025[facility] HealthcareComment on above:Expected: 10/16/2024 (Approximate), Expires: 10/16/2025Start: 06-58-3002VRJJW-19 Vaccine ( season)COVID-19 Vaccine ()[facility] Start: 63-32-3314Vsztdpcae for malignant neoplasm of cervixNOMS HealthcareStart: 89-70-1343Zceacwrfl for malignant neoplasm of cervixPap SmearSaint Joseph Hospital West Start: 17-20-0505Zrgoc BMI Follow Up PlanAdult BMI Follow Up PlanAlleghany Healthtart: 18-96-8845Wvwhwyrezm ScreeningDepression ScreeningMartins Ferry HospitalBacteria identified in Urine by CultureUrine culture Microbiology Routine Missed menses Ordered: 10/16/2024[facility] HealthcareComment on above: Ordered: 10/16/2024BC W Auto Differential panel - BloodCBC and differential Lab Routine Missed menses , unspecified gestational age Ordered: 10/16[facility] HealthcareComment on above:Ordered: 10/16/2024HLAMYDIA TRACHOMATIS (GENITO/STI)CHLAMYDIA TRACHOMATIS (GENITO/STI) Lab Routine Screen for STD (sexually transmitted disease) Ordered: 12/04/2024[facility] HealthcareComment on above:Ordered: 12/04/2024ytology Cervical or vaginal smear or scraping studyPap Smear Pathology and Cytology Routine Well woman exam with routine gynecological exam Ordered: 12/04/2024[facility] HealthcareComment on above:Ordered: 12/04/2024 Hemoglobin A1c/Hemoglobin.total in BloodHemoglobin A1c Lab Routine Missed menses , unspecified gestational age Ordered: 10/16/2024[facility] Healthcare Comment on above:Ordered: 10/16/2024Hepatitis B virus surface Ag [Presence] in Serum or Plasma by ImmunoassayHepatitis B surface antigen Lab Routine Missed menses , unspecified gestational age Ordered: 10/16/2024[facility] Comment on above:Ordered: 10/16/2024Hepatitis C virus Ab [Presence] in Serum or Plasma by ImmunoassayHepatitis C antibody Lab Routine Missed menses , unspecified gestational age Ordered: 10/16/2024[facility] HealthcareComment on above: Ordered: 10/16/2024HIV-1/HIV-2 antigen/antibody combination immunoassayHIV-1 and HIV-2 antibodies Lab Routine Missed menses , unspecified gestational age Ordered: 10/16/2024[facility] HealthcareComment on above:Ordered: 10/16/2024Human papilloma virus DNA [Presence] in Unspecified specimen by Probe with amplificationHPV DNA probe, amplified Microbiology Routine Well woman exam with routine gynecological exam Ordered: 12/04/2024[facility] HealthcareComment on above: Ordered: 12/04/2024Neisseria gonorrhoeae DNA [Presence] in Unspecified specimen by CARLITOS with probe detectionNeisseria gonorrhea DNA probe, direct Lab Routine Screen for STD (sexually transmitted disease) Ordered: 12/04/2024[facility] Healthcare Comment on above:Ordered: 12/04/2024Reagin Ab [Presence] in Serum by RPRRPR Lab Routine Missed menses , unspecified gestational age Ordered: 10/16/2024 [facility] HealthcareComment on above:Ordered: 10/16/2024Rubella antibody, IgGRubella antibody, IgG Lab Routine Missed menses , unspecified gestational age Ordered: 10/16/2024[facility] HealthcareComment on above:Ordered: 10/16/2024 SURESWAB(R) ADVANCED VAGINITIS PLUS, TMASURESWAB(R) ADVANCED VAGINITIS PLUS, TMA Pathology and Cytology Routine Screen for STD (sexually transmitted disease) Ordered: 12/04/2024[facility] Work Phone: comment on above:Ordered: 12/04/2024 Immunizations Immunization DateImmunizationNotesCare QdtpsqwgNzebddnp51-04-7956rqzmjsanw virus vaccine, unspecified formulationOma Davis RN Work Phone: p[facility] Payers DatePayer CategoryPayerPolicy ID2025MedicaidANT[facility]M [facility] [place] [id number] [id number] 26-15-1104Ltbt-okm07-36-4756Lzeudlu Care Other (unspecified)[place] [id number] Health Insurance [place] 1..[id number].46075-31-7529Iyvkfxo Health [id number] 2..1.814156.3.579.2.593 [id number] 2.0.1.610936.3.57[id number] 2..1.469647.3.579.[id number] 2..1.886784.3.57[id number] 2..1.818269.3.579.2.51633-70-4541Dwbqvqa7947842 2..1.156436.3.579.2.43907-54-9009Kmqmsja8350732 2..1.370451.3.579.2.51275-17-1610Pxmrubv3977336 2.0.1.448447.3.579.2.08270-49-9883Ajprtbq1185619 2..1.400878.3.579.2.53323-32-8279Qheorxa8178947 2.0.1.298730.3.579.2.89777-20-8520Qtephfx6410808 2.16.840.1.662933.3.579.2.05719-22-8663Irokygc6964175 2.0.1.211826.3.579.2.32828-65-6870Oqooeld6386263 2.840.1.767714.3.579.2.22490-35-6246Sehaewd1743194 2.0.1.304057.3.579.2.22230-74-1771Hjrhler2124333 2.0.1.112837.3.579.2.60776-80-6163Zozomtn3281890 2..1.276791.3.579.2.77264-49-4543Qixcece6517837 2..1.790763.3.579.2.95164-78-5880Zzyfsxh8018159 2..1.356123.3.579.2.80081-95-5970Uffviab0342010 2..1.148171.3.579.2.09099-23-9701Ifripvb4730899 2..1.142216.3.579.2.43773-89-6696Hkpkydb88504822 2..1.449272.3.579.2.153460-37-1944Diadezf78276942 2..1.595349.3.579.2.877641-32-5597Nxzcjvx14599366 2..1.234655.3.579.2.469047-17-3267Nsvnjpa871645281 2..1.043581.3.579.2.950803-58-1498Lkhogug53662178 2..1.493801.3.579.2.636393-72-6237Asjmhtn78239043 2.16.840.1.017088.3.579.2.246143-48-2999Bfogmmp40468686 2.16.840.1.238417.3.579.2.681569-56-6240Hlynjxq93311726 2.16.840.1.587165.3.579.2.473280-01-4308Krfjzgx26674787 2..840.1.699529.3.579.2.969609-01-7148Wzvfjqy75213362 2.16.840.1.932802.3.579.2.857326-21-0522Cotvwqs68598634 2..840.1.540916.3.579.2.850489-02-3456Tkohbih29245393 2..840.1.381877.3.579.2.541923-65-6976Jkbxykr72950245 2..840.1.278481.3.579.2.333432-13-6901Bkfxfxz72498032 2..840.1.316823.3.579.2.832191-86-4680Lcbhglx4742833 2..840.1.966558.3.579.2.413146-53-9610Qzcfcfx6903640 2..840.1.439495.3.579.2.478412-07-1073Cfvwwph3011652 2.840.1.167093.3.579.2.279745-53-6081Pnixyog4320586082157-25-9813Zibvzdv [id number] 2.840.1.815797.3.579.2.531 Social History DateTypeDetailFacilityStart: 08-05-2020 End: 48-60-4568Iwu Assigned At BirthProMercy Health Defiance HospitalTobacco smoking status NHISTobacco smoking consumption unknownNONJ HealthcareStart: 08-12-2024 PregnancyNONJ HealthcareStart: 99-30-3185Xqo assigned at birthFeChildren's Island [facility] HealthcareStart: 02-54-0210Hnpegu identityIdentifies as female gender (finding) [facility] HealthcareStart: 20-38-5099Dudvpp orientationHeterosexual (finding)[facility] HealthcareStart: 59-61-9916Qydmxer smoking status NHISNever smoked tobacco [facility] SystemStart: 48-75-3879Nhvisbb use and exposureSmokeless tobacco non-userPeoples Hospital SystemStart: 31-20-6154Umqozrucl beverage intakeEx-drinker (finding)[facility] [employer] SystemStart: 08-05-2020 End: 35-35-4512Nbzhsum of Social functionProParkwood Hospital SystemStart: 92-04-1230Clz you worried or concerned that in the next two months you may not have stable housing that you own, rent or stay in as a part of a household?No [facility] SystemStart: 37-90-5892Kpu assigned at birthNot on file [facility] [email or web address] SystemStart: 64-72-3761UwhXnolns (finding)[facility] Medical Equipment Procedure CodeEquipment CodeEquipment Original TextEquipment IdentifierDates1 strip by In Vitro route Daily Use in the morning prior to breakfast, 1 hour after each meal for atotal of 4times daily.[id number]: 11-13-2024 End: each by In Vitro route Daily Use to check FSBS four times daily [id number]: 11-13-2024 End: 12-13-2024 Clinical Notes 07-09-2021 to 04-14-2025 Note Date & OprdBlztZavvdkgr59-48-1416 History of Present illness Narrative* Sarita Wan LPN - 04/14/2025 11:10 AM EDT Reason for Appointment: Patient ID: Paris Mosqueda is a 34 y.o. female who presents for Routine Visit Patient presents today for Return OB appointment. MEDICATIONS Current Outpatient Medications Medication Instructions Alcohol Swabs (Alcohol Prep Pad) 70 % pads 1 Pad, Topical, Daily, Use four times daily to check FSBS. Blood Glucose Monitoring Suppl (Netpulse Glucometer) w/Device kit 1 kit, Does not apply, Daily, Use four times daily to check FSBS. In the morning prior to breakfast & 1 hour after each meal for a total of 4times daily. Uoktgmjw-Qlp-Mx-FA ( 1 + IRON PO) Take by mouth ProFe 391.3 (180 Fe) MG capsule 1 capsule, Daily ALLERGIES No Known Allergies PROBLEMS Active Ambulatory Problems Diagnosis Date Noted 28 weeks gestation of ([facility]) 02/16/2025 Third trimester ([facility]) 02/16/2025 Resolved Ambulatory Problems Diagnosis Date Noted [...] nursing note reviewed. Exam conducted with a contact lens polisher present. Vitals: Estimated body mass index is 34.47 kg/m as calculated from the following: Height as of 12/04/24: 5' 4 . Weight as of this encounter: 200 lb 12.8 oz. BP: 130/78 Patient's last menstrual period was 07/29/2024 (exact date). Assessment/Plan ICD-10-CM 1. Third trimester ([facility]) Z34.93 2. 37 weeks gestation of ([facility]) Z3A.37 POCT urinalysis dipstick manually resulted Return [...] of: Scooby Alvarado DO documented in this encounterSaint Joseph Hospital WestKshtcmmkkd62-92-8923 History of Present illness Narrative* SCOTTIE Yañez [...] meal for a total of 4times daily. Cecskosn-Imm-Yc-FA ( 1 + IRON PO) Take by mouth ProFe 391.3 (180 Fe) MG capsule 1 capsule, Daily ALLERGIES Allergies[1] PROBLEMS Active Ambulatory Problems Diagnosis Date Noted 28 weeks gestation of ([facility]) 02/16/2025 Third trimester ([facility]) 02/16/2025 Resolved Ambulatory Problems Diagnosis Date Noted [...] ASSESSMENT & PLAN ICD-10-CM 1. Third trimester ([facility]) Z34.93 POCT urinalysis dipstick manually resulted CULTURE, GROUP B STREP WITH SUSCEPTIBLITY CULTURE, GROUP B STREP WITH SUSCEPTIBLITY 2. 36 weeks gestation of ([facility]) Z3A.36 Patient is doing well but has [...] surgical history on file. documented in this encounterSaint Joseph Hospital WestElfqvtqkua92-13-8375 History of Present illness Narrative* Jem Ambrosio [...] meal for a total of 4times daily. Gveafpat-Uee-Kv-FA ( 1 + IRON PO) Take by mouth ProFe 391.3 (180 Fe) MG capsule 1 capsule, Daily ALLERGIES Not on File PROBLEMS Active Ambulatory Problems Diagnosis Date Noted 28 weeks gestation of ([facility]) 02/16/2025 Third trimester ([facility]) 02/16/2025 Resolved Ambulatory Problems Diagnosis Date Noted [...] nursing note reviewed. Exam conducted with a contact lens polisher present. Vitals: Estimated body mass index is 33.44 kg/m as calculated from the following: Height as of 12/04/24: 5' 4 . Weight as of 03/10/25: 194 lb 12.8 oz. BP: Patient's last menstrual period was 07/29/2024 (exact date). ASSESSMENT & PLAN ICD-10-CM 1. 34 weeks gestation of ([facility]) Z3A.34 2. Third trimester ([facility]) Z34.93 US biophysical profile w non stress test POCT urinalysis dipstick manually resulted 3. Gestational diabetes mellitus (GDM) in third trimester, gestational diabetes method of control unspecified ([facility]) O24.419 Return OB: Patient presents today for a routine obstetrics appointment. Patient is currently 34w0d . Patient states she is doing well but has complaints of being tired due to current w/some pelvic pain. Patient has verbalizes frequent movement. labor precautions was discussed/given and patient was instructed to perform kick counts three times a day. She continues to send her glucose logs to [facility] and we will begin NST/BPP this week. Orders Placed This Encounter Procedures US biophysical profile w non stress test POCT urinalysis dipstick manually resulted Follow Up: Patient is to return to office in 2 week for routine OB appointment. Documented by Yane Grant MA on behalf of: Jem Ambrosio NP documented in this encounterSaint Joseph Hospital WestDygcwkyofm62-84-8857 Miscellaneous Notes* Telephone Encounter - BEL Navarro - 03/20/2025 12:55 PM EDT Called patient and had to leave a voicemail. We haven't received any blood sugar logs for 4 weeks. Asked her to please send them to us or to call with questions. Left RD phone number. documented in this encounterMartins Ferry Hospital09-26-2025 Telephone encounter Note* Telephone Encounter - BEL Navarro - 03/20/2025 12:55 PM EDT Called patient and had to leave a voicemail. We haven't received any blood sugar logs for 4 weeks. Asked her to please send them to us or to call with questions. Left RD phone number. [facility]09-16-2025 History of Present illness Narrative* SCOTTIE Yañez [...] meal for a total of 4times daily. Xmweadvc-Njb-Jr-FA ( 1 + IRON PO) Take by mouth ProFe 391.3 (180 Fe) MG capsule 1 capsule, Daily ALLERGIES No Known Allergies PROBLEMS Active Ambulatory Problems Diagnosis Date Noted 28 weeks gestation of ([facility]) 02/16/2025 Third trimester ([facility]) 02/16/2025 Resolved Ambulatory Problems Diagnosis Date Noted [...] nursing note reviewed. Exam conducted with a contact lens polisher present. Vitals: Estimated body mass index is 33.44 kg/m as calculated from the following: Height as of 12/04/24: 5' 4 . Weight as of this encounter: 194 lb 12.8 oz. BP: 136/74 Patient's last menstrual period was 07/29/2024 (exact date). ASSESSMENT & PLAN ICD-10-CM 1. 32 weeks gestation of ([facility]) Z3A.32 POCT urinalysis dipstick manually resulted 2. Third trimester ([facility]) Z34.93 POCT urinalysis dipstick manually resulted Return [...] behalf of: SCOTTIE Yañez documented in this encounterSaint Joseph Hospital WestOabohvrveg73-17-2071 History of Present illness Narrative* SCOTTIE Yañez [...] meal for a total of 4times daily. Efjlxbto-Tze-Hn-FA ( 1 + IRON PO) Take by mouth ProFe 391.3 (180 Fe) MG capsule 1 capsule, Daily ALLERGIES No Known Allergies PROBLEMS Active Ambulatory Problems Diagnosis Date Noted 28 weeks gestation of ([facility]) 02/16/2025 Third trimester ([facility]) 02/16/2025 Resolved Ambulatory Problems Diagnosis Date Noted [...] nursing note reviewed. Exam conducted with a contact lens polisher present. Vitals: Estimated body mass index is 33.3 kg/m as calculated from the following: Height as of 12/04/24: 5' 4 . Weight as of this encounter: 194 lb. BP: 128/72 Patient's last menstrual period was 07/29/2024 (exact date). ASSESSMENT & PLAN ICD-10-CM 1. Size of fetus inconsistent with dates in second trimester ([facility]) O26.842 US OB follow up transabdominal approach 2. 28 weeks gestation of ([facility]) Z3A.28 CANCELED: CBC and differential 3. Third trimester ([facility]) Z34.93 Return OB: Patient presents today for [...] behalf of: SCOTTIE Yañez documented in this encounterSaint Joseph Hospital WestYhuczlxxfv62-50-7998 History of Present illness Narrative* Jem Ambrosio [...] to check FSBS. Blood Glucose Monitoring Suppl (Netpulse Glucometer) w/Device kit 1 kit, Does not apply, Daily, Use four times daily to check FSBS. In the morning prior to breakfast & 1 hour after each meal for a total of 4times daily. Fqcwnplw-Vcj-Qu-FA ( 1 + IRON PO) Take by [...] nursing note reviewed. Exam conducted with a contact lens polisher present. Vitals: Estimated body mass index is 33 kg/m as calculated from the following: Height as of 25: 5' 4 . Weight as of this encounter: 192 lb 4 oz. BP: 136/78 Patient's last menstrual period was 07/29/2024 (exact date). ASSESSMENT & PLAN ICD-10-CM 1. Second trimester ([facility]) Z34.92 POCT urinalysis dipstick manually resulted 2. 26 weeks gestation of ([facility]) Z3A.26 3. Diabetes mellitus screening Z13.1 CBC [...] glucose log and completed Diabetic education through [facility]. Documented by Jem Ambrosio NP on behalf of: Scooby Alvarado DO documented in this encounterSaint Joseph Hospital WestRszupoelpk78-25-0055 History of Present illness Narrative* SCOTTIE Yañez [...] to check FSBS. Blood Glucose Monitoring Suppl ([employer] Glucometer) w/Device kit 1 kit, Does not apply, Daily, Use four times daily to check FSBS. In the morning prior to breakfast & 1 hour after each meal for a total of 4times daily. Nqxvzlkn-Tyn-Xs-FA ( 1 + IRON PO) Take by [...] ASSESSMENT & PLAN ICD-10-CM 1. Second trimester ([facility]) Z34.92 POCT urinalysis dipstick manually resulted 2. 22 weeks gestation of ([facility]) Z3A.22 Return OB: Patient presents today for [...] behalf of: SCOTTIE Yañez documented in this encounterSaint Joseph Hospital WestMxpvylnczb24-22-1392 Miscellaneous Notes* Telephone Encounter - BEL Anderson [...] have questions you can call me at [phone]. Please continue to send in blood sugars weekly. I will also send a [employer] message. documented in this encounterMartins Ferry Hospital06-12-2025 Telephone encounter Note* Telephone Encounter - BEL [...] have questions you can call me at [phone]. Please continue to send in blood sugars weekly. I will also send a [employer] message. [employer] Work Phone: 1(631) 907-456806-12-2025 History of Present illness Narrative* Yane Grant [...] to check FSBS. Blood Glucose Monitoring Suppl (Netpulse Glucometer) w/Device kit 1 kit, Does not [...] Use to check FSBS four times daily Slmgeste-Iqu-Ej-FA ( 1 + IRON PO) Take by [...] nursing note reviewed. Exam conducted with a contact lens polisher present. Vitals: There is no height or weight on file to calculate BMI. BP: 118/72 Patient's last menstrual period was 07/29/2024 (exact date). ASSESSMENT & PLAN ICD-10-CM 1. Second trimester ([facility]) Z34.92 POCT urinalysis dipstick manually resulted 2. 18 weeks gestation of ([facility]) Z3A.18 3. Well woman exam with routine gynecological exam Z01.419 Pap Smear HPV DNA probe, amplified 4. Screening, , for anatomic survey ([facility]) Z36.89 US OB 14+ weeks anatomy scan 5. Screen for STD (sexually transmitted disease) Z11.3 SURESWAB(R) ADVANCED VAGINITIS PLUS, TMA CHLAMYDIA TRACHOMATIS (GENITO/STI) Neisseria gonorrhea DNA probe, direct 6. Need for maternal serum alpha-protein (MSAFP) screening ([facility]) Z36.1 Alpha fetoprotein, maternal Alpha fetoprotein, maternal [...] of: Scooby Alvarado DO documented in this encounterSaint Joseph Hospital WestJdcwdmhrik59-97-4224 Group counseling note* Group Note - Chinyere [...] Face to face time was 85 minutes. [employer] Work Phone: 1(170) 109-822306-02-2025 Miscellaneous Notes* Group Note - Chinyere Martinez [...] time was 85 minutes. documented in this encounterSouthwest General Health CenterGreenWave Reality Henry Ford HospitalLtjyfy53-01-8724 History of Present illness Narrative* Wendy Ulloa, GERARDO - 11/13/2024 10:40 AM EDT Reason for [...] Use to check FSBS four times daily Djvejdwg-Hgc-Eg-FA ( 1 + IRON PO) Take by [...] nursing note reviewed. Exam conducted with a contact lens polisher present. Vitals: There is no height or [...] or undercooked meat, and stay away from [facility]. Patient has been consulted regarding any further do's and don'tsof . Patient voiced understanding and all questions and concerns were answered. Orders Placed This Encounter Procedures POCT urinalysis dipstick manually resulted Discussed with patient her recent A1c results and patient aware that referral will be sent to [facility] for Diabetic Education and monitoring. PVU and supplies sent to pharmacy for patient to pickup and take with her to her referral appointment. Follow Up: Patient is to return in 4 weeks for routine OB appointment. Documented by Wendy Ulloa LPN on behalf of: Scooby Alvarado DO documented in this encounterSaint Joseph Hospital WestWtkxgkaqna64-35-1927 History of Present illness Narrative* Faye Tyler [...] or undercooked meat, and stay away from [facility]. Patient has also been advised to [...] by: Faye Tyler MA documented in this encounterSaint Joseph Hospital WestSahtnhlobx56-93-6822 Evaluation note* Encounter Date Diagnosis Assessment Notes [...] - J06.9) Jun,ore throat (ICD-10 - J02.9) Jun,therAdditional time spent conducting pre-visit phone call, screening for symptoms, instructions on social distancing, application and removal of PPE, and cleaning of examination room, equipment and supplies was preformed. Patient education given for testing methodology and results. Patient care instructions given in writting by [facility] Care At Home document [employer] Other Evaluation note* Diagnosis Missed menses Missed [...] of control unspecified [facility]* Diagnosis Second trimester ([facility]) state, incidental 18 weeks gestation of ([facility]) Well woman exam with routine gynecological exam Routine gynecological examination Screening, , for anatomic survey ([facility]) Encounter for anatomic survey Screen for STD (sexually transmitted disease) Screening examination for venereal disease Need for maternal serum alpha-protein (MSAFP) screening ([facility]) documented in this encounter [facility] HealthcareEvaluation note* Diagnosis Second trimester ([facility]) state, incidental 22 weeks gestation of ([facility]) [...] note* Diagnosis Third trimester ([facility]) state, incidental 37 weeks gestation of ([facility]) documented in this encounter [facility] HealthcareInstructionsNot on filedocumented in this encounterProMediak Health SystemInstructionsNot on filedocumented in this encounterProMediak Health System Summary Purpose Family History No Family History Records FoundNo Family History Records FoundNo Family History Records FoundNo Family History Records FoundNo Family History Records Found Advance Directives Date ActivatedDate InactivatedComments12/20/2023 11:13 PM12/21/2023 1:46 PM Additional Source Comments INFORMATION SOURCE (unrecogn ized section and content) DATE CREATED AUTHOR 11/17/2021 [facility] DATE CREATED AUTHOR AUTHOR'S ORGANIZ ATION 03/24/2022 [facility] DATE CREATED AUTHOR AUTHOR'S ORGANIZ ATION 12/29/2023 [facility] DATE CREATED AUTHOR AUTHOR'S ORGANIZ ATION 11/25/2024 [facility] DATE CREATED AUTHOR AUTHOR'S ORGANIZ ATION 04/15/2025 [facility] EPIC REASON FOR VISIT (unrecogniz ed section and content) ReasonCommentsAmenorrheaReasonCommentsRoutine VisitReasonComments Gestational DiabetesSpecialtyDiagnoses / ProceduresReferred By ContactReferred To ContactMaternal and Medicine Diagnoses Gestational diabetes mellitus (GDM) in second trimester, gestational diabetes method of control unspecified Scooby Alvarado, DO [address] [place] [address] Phone: tel: fax: Maternal- Medicine at [facility] [address] [facility] [place] [address] Phone: tel: fax: Referral IDStatusReasonStart DateExpiration DateVisits RequestedVisits [id number] Review Specialty Services Required Care Teams (unrecognized sec tion and content) Team MemberRelationshipSpecialtyStart DateEnd Date No Pcp, [place] [address] PCP - GeneralFamily Medicine12/19/23Team MemberRelationshipSpecialtyStart DateEnd Date No Pcp, [place] [address] PCP - GeneralFamily Medicine12/19/23Team MemberRelationshipSpecialtyStart DateEnd Date No Pcp, No Pcp [place] [address] PCP - GeneralFamily Medicine12/19/23 FOR RECORDS PERTAINING TO PATIENTS WHO [...] BE BASED ON THE PRIMARY CLINICAL RECORDS. [employer] provides no warranty or guarantee of the accuracy or completeness of information in this document.
== END 2025-04-17 10:29 | disposition home or self-care (01) ==
LOC: FBCO 09:58 → FBC 09:59
PROVIDERS: Visit Provider Obstetrics & Gynecology
DX: O24.419 Gestational diabetes mellitus in pregnancy, unspecified control (principal)
CPT/HCPCS: 59025

== ENCOUNTER 2025-04-21 13:01 | Outpatient (OUT) | payer MEDICAID, SELFPAY ==
--- NOTE | 2025-04-21 13:03 | US_ITS ---
[place] [id number] Patient Name: PRISCILLA BLAND MRN: [facility]:[id number] date: 1990 Sex: F Assigned Patient Location: [facility] Current Patient Location: Accession/Order Number: [id number] Exam Date: 04/21/2025 13:04 Report Date: 04/22/2025 07:22 At the request of: JEM MCCABE Procedure: US OB BPP w non-stress BIOPHYSICAL PROFILE: CLINICAL INFORMATION: Gestational diabetes mellitus COMPARISON: 04/14/2025 There is a single live intrauterine gestation in cephalic presentation. The reported gestational age is 38 weeks 0 days. The heart rate measures 129 beats per minute. FINDINGS: TONE: 1 or more episodes of activity extension and flexion of extremity or opening and closing of the hand [Y] 2/2 GROSS BODY MOVEMENTS: 3 or more discrete body or limb movements [Y] 2/2 BREATHING MOVEMENTS: 1 or more episodes of breathing lasting at least 30 seconds [Y] 2/2 JEANNINE: A single deepest vertical pocket of amniotic fluid greater than 2 cm [Y] 2/2 JEANNINE: 8.0 cm. The 5th percentile is 7.2 cm. Total score: 8/8 US/US OB BPP w non-stress IMPRESSION: NORMAL BIOPHYSICAL PROFILE. BORDERLINE OLIGOHYDRAMNIOS. Impression dictated by: Sarita Evangelista M.D. 04/22/2025 7:22 AM Dictation Location: [place] [address] Electronically authenticated by: [id number] Y Date: 04/22/2025 07:22
--- OUTSIDE RECORDS SUMMARY | 2025-04-21 13:07 | XMS_ITS | CCD ---
Author Organization [facility] CliniSysc Care Team Providers Care President Name Role Phone RENAY OTOOLE Attending Unavailable [...] Glucometer) w/Device kit (20 sources)Start: 11-13-2024 End: 31-16-6059Fmond Glucose Monitoring Suppl (D-Care Glucometer) w/Device kit Indications: Gestational diabetes mellitus (GDM), antepartum, gestational diabetes method of control unspecified ([facility]) , Elevated glucose tolerance test 1 kit Daily Use four times daily to check FSBS. In the morning prior to breakfast & 1 hour after each meal for a total of 4times daily. 1 kit 11/13/2024 11/13/2025 ActiveStart: 11-13-2024 End: 52-76-4143Vwnvu Glucose Monitoring Suppl (D-Care Glucometer) w/Device kit Indications: Gestational diabetes mellitus (GDM), antepartum, gestational diabetes method of control unspecified , Elevated glucose tolerance test 1 kit Daily Use four times daily to check FSBS. In the morning prior to breakfast & 1 hour after each meal for a total of 4times daily. 1 kit 11/13/2024 11/13/2025 ActiveEthinyl Estradiol / norgestimate (3 sources)Progestin, EstrogenStart: 67-15-2145elnu 1 tablet by mouth once daily norgestimate-ethinyl estradioL (ORTHO-CYCLEN) 0.25-35 mg-mcg per tablet Indications: Encounter for contraceptive management, unspecified type Take 1 tablet by mouth daily. 56 tablet 1 05/11/2020 Activeisopropyl alcohol 0.7 ml/ml medicated pad (20 sources)Start: 27-27-7475Pnvpnep Swabs (Alcohol Prep Pad) 70 % pads Indications: Gestational diabetes mellitus (GDM), antepartum, gestational diabetes method of control unspecified ([facility]) , Elevated glucose tolerance testApply 1 Pad topically Daily Use four times daily to check FSBS. 150 each 3 11/13/2024 Activepolysaccharide iron complex 391 mg oral capsule (20 sources)Start: 21-20-8485goby 1 capsule by mouth once dailyProFe 391.3 (180 Fe) MG capsule Take 1 capsule by mouth Daily 02/04/2024 ActivePrenatal Axggbtkp-Vnr-Os-FA ( 1 + IRON PO) (20 sources) Izirclga-Nin-Zl-FA ( 1 + IRON PO) Take by mouth Active Problems Active Problems Problem ClassificationProblemDateDocumented DateEpisodic/ChronicAbdominal pain (1 source)Abdominal painOnset: 83-97-2005AbqeatgwIcvjgv of cervix (1 source)Low grade squamous intraepithelial lesion on cytologic smear of cervix (LGSIL); Translations: [LGSIL ON CYTOLOGIC SMEAR OF CERVIX]Onset: 11-11-2021 EpisodicDiabetes mellitus without complication (6 sources)Other abnormal glucose; Translations: [Abnormal glucose tolerance test]Onset: 95-01-7698UgjnfhzdYxsyvqpl or abnormal glucose tolerance complicating ; childbirth; or the puerperium (8 sources)Gestational diabetes mellitus, class A>1<; Translations: [Gestational diabetes mellitus in , diet controlled]Onset: EpisodicHemorrhage during ; abruptio placenta; placenta previa (1 source)Antepartum hemorrhage, unspecified, unspecified trimester; Translations: [Antepartum hemorrhage, unspecified, unspecified trimester]Onset: 05-90-1645EcrcfhruOvkgeurtzhmab and screening for infectious disease (3 sources)Contact with and (suspected) exposure to other viral communicable diseases; Translations: [Patient encounter status]Onset: 07-09-2021 Resolved: 32-89-0259IgjdcjnoKdtekuqgg disorders (6 sources)Secondary amenorrhea; Translations: [Missed period]Onset: 01-28-2021 ChronicOther complications of ; puerperium affecting management of mother (3 sources)Obesity complicating childbirth; Translations: [OBESITY COMPLICATING CHILDBIRTH]Onset: 37-02-9314XqptztmOgvtv complications of (4 sources)Anemia complicating , unspecified trimester; Translations: [ANEMIA COMP UNS TRIMESTER]Onset: 04-23-6736EkfyayiOtroy complications of (2 sources) size does not accord with dates; Translations: [Uterine size- date discrepancy, second trimester]93-57-7900AyemyhbkQdcov female genital disorders (1 source)Vaginal bleedingOnset: 90-09-9306LuajrdzUoluz nutritional; endocrine; and metabolic disorders (1 source)Obesity, unspecified; Translations: [OBESITY UNSPECIFIED]Onset: 21-66-3486HgbznggYrgbu and delivery including normal (20 sources)Encounter for routine follow-up; Translations: [Single live ]Onset: 18-83-0817ViybqvijBwkar screening for suspected conditions (not mental disorders or infectious disease) (14 sources)Encounter for screening for malignant neoplasm of cervix; Translations: [Encounter for screening, unspecified]Onset: 62-52-9820Xhinexsb Residual codes; unclassified (1 source)High risk heterosexual behavior; Translations: [High risk heterosexual behavior]Onset: 42-28-1288BdlxavrgLroschrd codes; unclassified (2 sources)Gestation period, 15 weeks; Translations: [15 weeks gestation of ]67-26-4245WklhnhunSivkvieo codes; unclassified (2 sources)Gestation period, 18 weeks; Translations: [18 weeks gestation of ]79-28-0703ZypeehmbOndocldz codes; unclassified (2 sources)Gestation period, 22 weeks; Translations: [22 weeks gestation of ]80-94-1807JzbilbimQxzaylvd codes; unclassified (2 sources)Gestation period, 26 weeks; Translations: [26 weeks gestation of ]07-13-6412BikpngckBoyhtkhy codes; unclassified (17 sources)Gestation period, 28 weeks; Translations: [28 weeks gestation of ]Onset: 394596-72-9777MnbcwmkzDdkaeriu codes; unclassified (2 sources)Gestation period, 32 weeks; Translations: [32 weeks gestation of ]69-82-2098SnrksszaHwokbnay codes; unclassified (2 sources)Gestation period, 34 weeks; Translations: [34 weeks gestation of ]38-26-0749ZyrnzgmyQlnsvmlf codes; unclassified (2 sources)Gestation period, 36 weeks; Translations: [36 weeks gestation of ]03-70-3004RkrjezujLiajrmsa codes; unclassified (2 sources)Gestation period, 37 weeks; Translations: [37 weeks gestation of ]94-89-9593IwdjrnafPwiuecnlwkp; intervertebral disc disorders; other back problems (1 source)BackacheOnset: 34-00-4575CfzpuiqtArzurvqcuhbm (1 source)CONTACT W/AND (SUSP) EXPOS COVID-19; Translations: [CONTACT W/AND (SUSP) EXPOS COVID-19]Onset: 45-74-5709Pkpcjujezfsu (1 source)Vaginal Bleeding - 7wks pregOnset: 12-19-2023 Past or Other Problems Problem ClassificationProblemDateDocumented DateEpisodic/ChronicDeficiency and other anemia (1 source)Anemia, unspecified; Translations: [ANEMIA UNSPECIFIED]Onset: 48-97-9466VqswuseaAU-related trauma to perineum and vulva (1 source)Other specified trauma to perineum and vulva; Translations: [OTHER SPEC TRAUMA PERINEUM AND VULVA]Onset: 40-52-3069MlmomffxRgsxt complications of (1 source)Maternal care for other known or suspected poor growth, third trimester, not applicable or unspecified; Translations: [MAT CARE OTH ME FTL GRTH 3RD TM UNS]Onset: 62-83-5322UbptohmcVdjoy complications of (4 sources)Decreased movements, third trimester, not applicable or unspecified; Translations: [DECR MOVEMENTS 3RD TRI NA/UNS]Onset: 72-60-0813IeupexbqFyads complications of (4 sources)Supervision of other high risk pregnancies, third trimester; Translations: [SUP OTH HIGH RISK 3RD TRI]Onset: 29-83-9265Rvpeaiil Other complications of (4 sources)Other specified related conditions, unspecified trimester; Translations: [OTH SPEC PREG RELATED COND UNS TRI]Onset: 41-01-7541TmdqluxfCebql complications of (4 sources)Supervision of other high risk pregnancies, unspecified trimester; Translations: [SUP OTH HIGH RISKPREGNANCY UNS TRI]Onset: 03-25-9324PcmpgdwsIakhx female genital disorders (1 source)Other specified noninflammatory disorders of vagina; Translations: [OTH SPEC NONINFLAMMATORY D/O VAGINA]Onset: 42-59-8118TlsbzbdrPyfhi upper respiratory infections (2 sources)Acute upper respiratory infection, unspecified; Translations: [Acute pharyngitis, unspecified]Onset: 07-09-2021 Resolved: 49-14-0130YxqeulkvBkvypwcv codes; unclassified (1 source)39 weeks gestation of ; Translations: [39 WEEKS GESTATION OF ]Onset: 14-55-7175TztztbmtSpuxhpmm codes; unclassified (1 source)36 weeks gestation of ; Translations: [36 WEEKS GESTATION OF ]Onset: 27-63-1849ZupcdrruHmxdgxfd codes; unclassified (1 source)34 weeks gestation of ; Translations: [34 WEEKS GESTATION OF ]Onset: 77-74-9891AybannchDqcqhluq codes; unclassified (1 source)35 weeks gestation of ; Translations: [35 WEEKS GESTATION OF ]Onset: 17-79-7946IpefighhWhpuuobe codes; unclassified (1 source)33 weeks gestation of ; Translations: [33 WEEKS GESTATION OF ]Onset: 76-31-6642JirpnojjOiulbqgn codes; unclassified (1 source)Weeks of gestation of not specified; Translations: [WEEKS GESTATION NOT SPEC]Onset: 55-90-3156JikuuzdqNtfrfwai codes; unclassified (1 source)24 weeks gestation of ; Translations: [24 WEEKS GESTATION OF ]Onset: 42-02-9202PdpvoxhxAwbcniuz codes; unclassified (4 sources)16 weeks gestation of ; Translations: [16 WEEKS GESTATION OF ]Onset: 02-55-8229IvbdbbzoGwxpqdjvzxg (4 sources)Complete or unspecified spontaneous without complication; Translations: [Miscarriage]Onset: 443314-42-0219Jaiixqvq Results Test NameValueInterpretationReference RangeFacilityUrinalysis macro (dipstick) panel (U)on 78-68-0390Cvvwtwrag, UA2+Negative - 4(70) +++ mg/dLNOMS Healthcare Blood, UANegativeNegative - 50 Celestino/mcLNOMS HealthcareClarity, UAClearNOMS HealthcareColor, UAYellowNOMS HealthcareGlucose, UANegativeNegative - 2000(110) ++++ mg/dLNOAZ HealthcareInterpretation and review of laboratory resultsAbnormal NOMS HealthcareKetones, UAPositiveNegative - 160(16) ++++ mg/dLNOMS Healthcare Leukocytes, UA3+Negative - 500+++ Dodie/mcLNOMS HealthcareNitrite, UANegative Negative - PositiveNOMS HealthcarepH, UA6.05 - 9NOMS HealthcareProtein, UA1+ Negative - 2000(20) ++++ mg/dLNOMS HealthcareSpec Grav, UA1.0251 - 1.03NOMS HealthcareUrobilinogen, UA>=8.00.2 - 12 mg/dLNOMS HealthcareNOMS Healthcare Urinalysis macro (dipstick) panel (U)on 23-65-2022Eyzmzhhjw, UANegativeNegative - 4(70) +++ mg/dLNOMS HealthcareBlood, UANegativeNegative [...] mg/dLNOMS HealthcareNOMS HealthcareUS OB BPP W NON-STRESSon 68-48-8149[place]pf[place], [place] [address] Ultrasound Report Signed Patient: PARIS MOSQUEDA MR#: [id number] : 1990 Acct:[id number] Age/Sex: 34 / F ADM Date: 03/31/25 Loc: US Attending Dr: Jem Ambrosio Ordering Physician: Jem Ambrosio Date of Service: 03/31/25 Procedure(s): US OB BPP w non-stress Accession Number(s): [id number] cc: Jem Ambrosio; [place] [id number] Patient Name: PARIS MOSQUEDA MRN: [facility]:[id number] date: 1990 Sex: F Assigned Patient Location: [facility] Current Patient Location: Accession/Order Number: [id number] Exam Date: 03/31/2025 12:57 Report Date: 03/31/2025 17:44 At the request of: JEM AMBROSIO Procedure: US OB BPP w non-stress Ultrasound biophysical profile INDICATION: Gestational diabetes FINDINGS/ IMPRESSION: Cephalic position. 8/ 8 score biophysical profile. JEANNINE measures 7.9 cm which is borderline oligohydramnios. heart rate 152 beats per minutes. Impression dictated by: Nito Chong M.D. 03/31/2025 5:44 PM Dictation Location: [place] [address] Electronically authenticated by: [id number] Y Date: 03/31/2025 17:44 Dictated By: Nito Chong M.D. Signed By: 03/31/251746 DD/ 174 TD/TT: Adobe Block Maker:GHADAHRadiology, Radiologist, MD - 03/31/2025 [place] [address] Ultrasound Report Signed Patient: PARIS MOSQUEDA MR#: [id number] : 1990 Acct:[id number] Age/Sex: 34 / F ADM Date: 03/31/25 Loc: US Attending Dr: Jem Ambrosio Ordering Physician: Jem Ambrosio Date of Service: 03/31/25 Procedure(s): US OB BPP w non-stress Accession Number(s): [id number] cc: Jem Ambrosio; [place] [id number] Patient Name: PARIS MOSQUEDA MRN: [facility]:[id number] date: 1990 Sex: F Assigned Patient Location: [facility] Current Patient Location: Accession/Order Number: [id number] Exam Date: 03/31/2025 12:57 Report Date: 03/31/2025 17:44 At the request of: JEM AMBROSIO Procedure: US OB BPP w non-stress Ultrasound biophysical profile INDICATION: Gestational diabetes FINDINGS/ IMPRESSION: Cephalic position. 8/ 8 score biophysical profile. JEANNINE measures 7.9 cm which is borderline oligohydramnios. heart rate 152 beats per minutes. Impression dictated by: Nito Chong M.D. 03/31/2025 5:44 PM Dictation Location: [employer] [facility] [employer] Electronically authenticated by: [id number] Y Date: 03/31/2025 17:44 Dictated By: Nito Chong M.D. Signed By: 03/31/251746 DD/ 43 TD/TT: Adobe Block Maker: SHERLY HealthcareRadiology Study observation (narrative)NOMS HealthcareUS OB BPP W NON-STRESSOrdered By: Radiologist Radiology on 30-12-2947ZPPR Healthcare Work Phone: Urinalysis macro (dipstick) panel [...] mg/dLNOMS HealthcareNOMS HealthcareUrinalysis macro (dipstick) panel (U)on 60-93-5781Yyjkiifdn, UAPositiveNegative - 4(70) +++ mg/dL NOMS HealthcareBlood, [...] HealthcareNOMS HealthcareUS OB FOLLOW UP TRANSABDOMINAL APPROACHon 18-01-2666PV OB FOLLOW UP TRANSABDOMINAL APPROACHFINDINGS: A single, [...] Delivery: 05/05/25 Gestational Age as of 02/16/2025: 31j6mOCN CBC WITH AUTO DIFFon 02-13-2025 BASOPHILS ABSOLUTE JQTM9KFTU HealthcareBasophils/100 WBC (Bld)0.4 %0.2 - 2.0 % NOM HealthcareEosinophils/100 WBC (Bld)1.5 %0.9 - 7.0 %[facility] Erythrocyte distribution width (RBC) [Ratio]15 %11.0 - 15.0 %[facility] Hematocrit (Bld) [Volume fraction]33.1 %Low36.0 - 48.0 %[facility] Hemoglobin (Bld) [Mass/Vol]10.6 g/dLLow12.0 - 16.0 g/dLRipley County Memorial HospitalIMMATURE GRANULOCYTES ABS AUTO0.05HighNOSainte Genevieve County Memorial HospitalImmature granulocytes/100 WBC (Bld) 0.5 %0.0 - 0.5 %[facility] HospitalInterpretation and review of laboratory results AbnormalNOAZ HealthcareLYMPHOCYTES ABSOLUTE IBCD9VVWR HealthcareLymphocytes/100 WBC (Bld)31.1 %20.5 - 60.0 %[facility] HospitalMCH (RBC) [Entitic mass]25.4 pgLow 26.7 - 34.0 pgNOSainte Genevieve County Memorial HospitalMCHC (RBC) [Mass/Vol]32 g/dL29.9 - 35.2 g/dLNOSainte Genevieve County Memorial HospitalMCV (RBC) [Entitic vol]79.2 fLLow81.0 - 99.0 fLMOUNTAINSTAR HEALTHCARE Healthcare MONOCYTES ABSOLUTE AUTO0.8NOMS HealthcareMonocytes/100 WBC (Bld)8.4 %1.7 - 12.0 %NOMSsm Saint [facility]S Health CenterNEUTROPHILS ABSOLUTE AUTO5.7NOMS HealthcareNeutrophils/100 WBC (Bld)58.1 %43.0 - 75.0 %[facility] HospitalPlatelet mean volume (Bld) [Entitic vol] 10 fL9.5 - 13.5 fLNOSainte Genevieve County Memorial HospitalTBH EO #0.2NOMS HealthcareTBH [id number] HealthcareTBH RBC4.18LowNOMS HealthcareTBH WBC9.7NOMS HealthcareCLINISYNCNOMS HealthcareUrinalysis macro (dipstick) panel (U)on 77-75-6882Yqrlcknca, UA NegativeNegative - 4(70) +++ mg/dLNOMS HealthcareBlood, [...] mg/dLNOMS HealthcareNOMS HealthcareUS OB LIMITED 1+ FETUSESon 94-88-2086EE OB LIMITED 1+ FETUSESFINDINGS: Single viable intrauterine , breech presentation with normal cardiac and activity, 15 0 bpm. Age appropriate, normal visualization of the left ventricular and right ventricular outflowtracts. IMPRESSION: Normal cardiac and outflow tract anatomy. TRANSCRIBED BY: ELECTRONICALLY SIGNED BY: Sue SaavedraNot AvailableComment on above:Order Comment: US OB INCOMPLETE ANATOMY Estimated Date of Delivery: 05/05/25 Gestational Age as of 12/30/2024: 01o5bIjhjbhnwjw macro (dipstick) panel (U)on 59-50-6444Popkfeqlj, UANegativeNegative - 4(70) +++ mg/dLNOMS HealthcareBlood, UANegativeNegative [...] HealthcareNo Panel InformationOrdered By: Radiologist Radiology on 67-44-4608KWBFRipley County Memorial Hospital Work Phone: No Panel Informationon 56-87-8876Yozptfvpd Study observation (narrative)NOMS HealthcareUS OB ANATOMYon 71-30-7829GqcDec[place], [place] [address] Ultrasound Report Signed Patient: PARIS MOSQUEDA MR#: [id number] : 1990 Acct:[id number] Age/Sex: 34 / F ADM Date: 12/19/24 Loc: US Attending Dr: Scooby Alvarado D.O. Ordering Physician: Scooby Alvarado D.O. Date of Service: 12/19/24 Procedure(s): US OB anatomy Accession Number(s): [id number] cc: [facility] ; Scooby Alvarado D.O. [address] [address] Patient Name: PARIS MOSQUEDA MRN: [facility]:[id number] date: 1990 Sex: F Assigned Patient Location: US Current Patient Location: US Accession/Order Number: [id number] Exam Date: 12/19/2024 11:33 Report Date: 12/19/2024 [...] Evangelista M.D. 12/19/2024 11:39 AM Dictation Location: [place] [address] Electronically authenticated by: [id number] Y Date: 12/19/2024 11:39 Dictated By: Sarita Evangelista M.D. Signed By: 12/19/24 1142 DD/ 1139 TD/TT: Adobe Block Maker:TBHRadiology, Radiologist, - 12/19/2024 The [place] [id number] Ultrasound Report Signed Patient: PARIS MOSQUEDA MR#: [id number] : 1990 Acct:[id number] Age/Sex: 34 / F ADM Date: 12/19/24 Loc: US Attending Dr: Scooby Alvarado D.O. Ordering Physician: Scooby Alvarado D.O. Date of Service: 12/19/24 Procedure(s): US OB anatomy Accession Number(s): [id number] cc: [facility] ; Scooby Alvarado D.O. [place] [id number] Patient Name: PARIS MOSQUEDA MRN: [id number] date: 1990 Sex: F Assigned Patient Location: Current Patient Location: Accession/Order Number: [id number] Exam Date: 12/19/2024 11:33 Report Date: 12/19/2024 [...] Evangelista M.D. 12/19/2024 11:39 AM Dictation Location: [place] [address] Electronically authenticated by: [id number] Y Date: 12/19/2024 11:39 Dictated By: Sarita Evangelista M.D. Signed By: 12/19/24 1142 DD/ 1139 TD/TT: Adobe Block Maker: SHERLY Interiano OB CERVICAL LENGTHon 07-03-5951NgsDec[place], [place] [address] Ultrasound Report Signed Patient: PARIS MOSQUEDA MR#: [id number] : 1990 Acct:[id number] Age/Sex: 34 / F ADM Date: 12/19/24 Loc: US Attending Dr: Scooby Alvarado D.O. Ordering Physician: Scooby Alvarado D.O. Date of Service: 12/19/24 Procedure(s): US OB cervical length Accession Number(s): [id number] cc: [facility] ; Scooby Alvarado D.O. [place] [id number] Patient Name: PARIS MOSQUEDA MRN: [facility]:[id number] date: 1990 Sex: F Assigned Patient Location: US Current Patient Location: US Accession/Order Number: [id number] Exam Date: 12/19/2024 11:33 Report Date: 12/19/2024 [...] Evangelista M.D. 12/19/2024 11:39 AM Dictation Location: [place] [address] Electronically authenticated by: [id number] Y Date: 12/19/2024 11:39 Dictated By: Sarita Evangelista M.D. Signed By: 12/19/24 1142 DD/ 1139 TD/TT: Adobe Block Maker:TBHRadiology, Radiologist, MD - 12/19/2024 [place] [address] Ultrasound Report Signed Patient: PARIS MOSQUEDA MR#: [id number] : 1990 Acct:[id number] Age/Sex: 34 / F ADM Date: 12/19/24 Loc: US Attending Dr: Scooby Alvarado D.O. Ordering Physician: Scooby Alvarado D.O. Date of Service: 12/19/24 Procedure(s): US OB cervical length Accession Number(s): [id number] cc: [facility] ; Scooby Alvarado D.O. The [address] [address] Patient Name: PARIS MOSQUEDA MRN: [facility]:[id number] date: 1990 Sex: F Assigned Patient Location: US Current Patient Location: US Accession/Order Number: [id number] Exam Date: 12/19/2024 11:33 Report Date: 12/19/2024 [...] Evangelista M.D. 12/19/2024 11:39 AM Dictation Location: [place] [address] Electronically authenticated by: [id number] Y Date: 12/19/2024 11:39 Dictated By: Sarita Evangelista M.D. Signed By: 12/19/24 1142 DD/ 1139 TD/TT: Adobe Block Maker: SHERLY AntonioIGP,APTIMA HPV,AGE GDLNon 38-68-3274SPW GDLN ACOG TESTINGNote. SHERLY HealthcareComment on above:TESTS RESULT FLAG UNITS REF RANGE LAB Clinician Provided Cytology Information Source.............Vagina Other.............. No. of containers..01 ThinPrep Vial Age Algo ACOG Karine... FLAG LEGEND: L-Low Normal,H-High Normal,LL-Alert Low,HH-Alert High <-Panic Low,>-Panic High,A-Abnormal,AA-Critical Abnormal Performed at: 01 =[address] [address] Cindy Pinzon MD, HPV APTIMANegativeNegativeNOMS HealthcareComment on above:This nucleic acid amplification test detects fourteen high- risk HPV types (16,18,31,33,35,39,45,51,52,56,58,59,66,68) without differentiation. Performed at: =[address] [id number] Wool Hanker: Cindy Pinzon MD, Phone: [phone] Performed at: [address] [id number] [place] Hanker: Cindy Pinzon MD, Phone: [phone] IGP, APTIMA HPV, RFX 16/18,45Note.NOMS HealthcareComment on above:TESTS RESULT FLAG UNITS REF RANGE LAB DIAGNOSIS: 02 NEGATIVE FOR INTRAEPITHELIAL LESION OR MALIGNANCY. Specimen adequacy: 02 Satisfactory for evaluation. No endocervical component is identified. Performed by: 02 Yanni Dela Cruz Tube Room Cashier ([facility]) . 02 Note: Note 02 The [...] <-Panic Low,>-Panic High,A-Abnormal,AA-Critical Abnormal Performed at: [address] [address] Cindy Pinzon MD, SPATULA-ALONE VAGINA CLINISYNCNOMS HealthcareRECURRENT VAGINITIS (HTRX)on 56-17-4570PCPWLYFYQ VAGINAE 0NOMS HealthcareATOPOBIUM VAGINAENot detectedNOMS HealthcareBVAB 2,3 (BACTERIAL VAGINOSIS ASSOCIATED BACTERIA 2, 3); MOBILUNCUS FMF6XINM HealthcareBVAB 2,3 (BACTERIAL VAGINOSIS ASSOCIATED BACTERIA 2, 3); MOBILUNCUS SPPNot detectedNOMS HealthcareCANDIDA ALBICANS, PARAPSILOSIS, DQDIIIEZMQ2QBOR HealthcareCANDIDA ALBICANS, PARAPSILOSIS, TROPICALISNot detectedNOMS HealthcareCANDIDA GLABRATA0 NOMS HealthcareCANDIDA GLABRATANot detectedNOMS HealthcareCANDIDA BUNEYU1VTWT HealthcareCANDIDA KRUSEINot detectedNOMS HealthcareCHLAMYDIA YKEPBIZWIOW9TOKA HealthcareCHLAMYDIA TRACHOMATISNot detectedNOMS HealthcareGARDNERELLA VAGINALIS0 NOMS HealthcareGARDNERELLA VAGINALISNot detectedNOMS HealthcareMEGASPHAERA (TYPES 1, 2)0NOMS HealthcareMEGASPHAERA (TYPES 1, 2)Not detectedNOMS Healthcare MYCOPLASMA LSEMKTWJCR7ZDKM HealthcareMYCOPLASMA GENITALIUMNot detectedNOMS HealthcareNEISSERIA MVIPHVAULLF2VIPX HealthcareNEISSERIA GONORRHOEAENot detected NOMS HealthcareTRICHOMONAS SWMMDRFGZ0PHIX HealthcareTRICHOMONAS VAGINALISNot detectedNOMS HealthcareNOMS HealthcareUrinalysis macro (dipstick) panel (U)on 59-23-2241Xzluxdiss, UANegativeNegative - 4(70) +++ mg/dLNOMS HealthcareBlood, UANegativeNegative - 50 Celestino/mcLNOMS HealthcareClarity, UAClearNOMS Healthcare Color, UAYellowNOMS HealthcareGlucose, UANegativeNegative - 2000(110) ++++ mg/dL NOMS HealthcareInterpretation and review of laboratory resultsNormalNOMS HealthcareKetones, UANegativeNegative - 160(16) ++++ mg/dLNOAZ Healthcare Leukocytes, UAPositiveNegative - 500+++ Dodie/mcLNOMS HealthcareComment on above: smallNitrite, UANegativeNegative - PositiveNOMS HealthcarepH, UA75 - 9NOMS HealthcareProtein, UANegativeNegative - 2000(20) ++++ mg/dLNOMS HealthcareSpec Grav, UA1.0151 - 1.03NOMS HealthcareUrobilinogen, UA0.20.2 - 12 mg/dLNOMS HealthcareNOMS HealthcareGlucose random or fasting- POCTOrdered By: James Rader on 29-64-6834Houukmzi Glucose Fasting Or Random (Fbs)94[facility] SystemProMer[facility] Health [facility] SystemUrinalysis macro (dipstick) panel (U)on 11-13-2024 Bilirubin, UANegativeNegative - 4(70) +++ mg/dLNOMS HealthcareBlood, UANegative Negative - 50 Celestino/mcLNOAZ HealthcareClarity, UAClearNOMS HealthcareColor, UA YellowNOMS HealthcareGlucose, UANegativeNegative - 2000(110) ++++ mg/dLNOAZ HealthcareInterpretation and review of laboratory resultsAbnormalRipley [facility] Hospital Ketones, UANegativeNegative - 160(16) ++++ mg/dLNOAZ HealthcareLeukocytes, UA TraceNegative - 500+++ Dodie/mcLNOAZ HealthcareNitrite, UANegativeNegative - PositiveNOMS HealthcarepH, UA65 - 9NOMS HealthcareProtein, UANegativeNegative - 2000(20) ++++ mg/dLNOAZ HealthcareSpec Grav, UA1.011 - 1.03NOAZ Healthcare Urobilinogen, UA0.20.2 - 12 mg/dLNO[facility] HealthcareBOX TESTon 30-99-3986JMP TEST SENT OUTunKettering Health [facility] UtfnmsmktoYDI7wkibtAHGV HealthcareBOX2 11/11/24NOSainte Genevieve County Memorial HospitalUNITY BOX CLINISYNCMOUNTAINSTAR [facility]ALTH[facility]ARE HealthcareHCG ( test) Ql (U)on 63-92-3180Yojznsrdtyakgv and review of laboratory resultsAbnormalRipley County Memorial HospitalPreg Test, UrPositive NegativeNOSainte Genevieve County Memorial HospitalNOAZ HealthcareUS OB TRANSVAGINALon 86-84-9493OU OB TRANSVAGINALEXAM: US OB TRANSVAGINAL HISTORY: Dating. [...] II, MD, PHD at 16-Oct-2024 11:21:08 PM [facility] TeleradiologyNormalNot AvailableComment on above:Order Comment: US OB TRANSVAGINAL No LMP recorded.US Pelvis transvaginalon [id number]: US OB TRANSVAGINAL HISTORY: Dating. A1. LMP [...] II, MD, PHD at 16-Oct-2024 11:21:08 PM [facility] IMAGINGSEkaterina beltre MD - 10/16/2024 EXAM: [...] II, MD, PHD at 16-Oct-2024 11:21:08 PM [facility] HealthcareRadiology Study observation (narrative)NOMS HealthcareUS Pelvis transvaginalOrdered By: Ekaterina Carroll on 36-42-1821ATBU [employer] Work Phone: Urinalysis macro (dipstick) panel (U)on 10-16-2024 Bilirubin, UANegativeNegative - 4(70) +++ mg/dLNOMS HealthcareBlood, UANegative Negative - 50 Celestino/mcLNOMS HealthcareClarity, UAClearNOMS HealthcareColor, UA YellowNOMS HealthcareGlucose, UANegativeNegative - 2000(110) ++++ mg/dLNOMS HealthcareInterpretation and review of laboratory resultsAbnormalNOAZ Healthcare Ketones, UAPositiveNegative - 160(16) ++++ mg/dLNOMS HealthcareComment on above: 80mg/dLLeukocytes, UAPositiveNegative - 500+++ Dodie/mcLNOMS HealthcareComment on above:smallNitrite, UANegativeNegative - PositiveNOMS HealthcarepH, UA5.55 - 9 NOMS HealthcareProtein, UAPositiveNegative - 2000(20) ++++ mg/dLNOMS Healthcare Comment on above:30mg/dLSpec Grav, UA1.031 - 1.03NOAZ HealthcareUrobilinogen, UA 0.20.2 - 12 mg/dLNOAZ HealthcareNOAZ HealthcareHGB AND HCTon 12-21-2023 Hematocrit (Bld) [Volume fraction]28.7 %Ijr93-43NslHuhihwMarymount Hospital Comment on above:Performed By: #### HH #### [facility] ([id number]) [address] [place] [address] 21445Nfbqumtnjm (Bld) [Mass/Vol]9.8 g/dLLow11.7-15.5ProMedKaiser Foundation HospitalComment on above:Performed By: #### HH #### [facility] ([id number]) [address] [place] [address] 40269Llngxmrq Pathologyon 35-44-8169Finfpxhy PathologyNormal Marymount HospitalComment on above:Result Comment: [facility] [address] [place] [address] Surgical Pathology Consultation Patient Name:SYDNIE MOSQUEDAB:1990 (Age: 33)Gender:FTaken:4Reported:4Physician(s):Cody Desai MD ([phone])Copy To: Rec. #:[id number]: #[id number] Final Pathologic Diagnosis Products of conception; removal: Products of conception (gestational sac with immature chorionic villi) and fragments of decidua with acute inflammation and necrosis. Report Electronically Signed Out wacha/12/28/2023Pradeep Brannon MD Interpretation performed at [facility], [address] [place] [address], License number: [id number]. Clinical History Spontaneous , miscarriage. Gross Description Received in formalin labeled MOSQUEDA Karyotype: No Aggregate measurement: 5.2 x 3.8 x 2.0 cm. Placenta: 3.4 x 2.8 x 1.5 cm Decidua/Clot: 1.8 x 1.0 x 0.5 cm Gestational Sac: Yes, intact Tissue: No Molar Tissue: No Cassettes: A-C placenta (3, ss, [id number],m5) DM Received fresh-no site on container. POC for routine surgical path. Per Ariana Avendaño dm/12/21/2023GR Specimen(s) Received Products of conception Fee Codes(s): 1; 04893BO PREG LESS THAN 14 WKS WITH TRANSVAGINALon 98-88-5099KM PREG LESS THAN 14 WKS WITH TRANSVAGINALUS [...] by Isamar Monroy MD on 12/21/2023 8:46 AMNormalMarymount HospitalBASIC METABOLIC PANLon 23-65-7446Oijpb gap [Moles/Vol]6 mmol/LNormal5-15 ProMedicSaint Francis Memorial HospitalComment on above:Performed By: #### MARICARMEN CBCA, #### [facility] ([id number]) [address] [place] [address], [place] [address]Mkehanm [Mass/Vol]8.9 mg/dLNormal8.5-10.5PMercy Health St. Vincent Medical CenterComment on above:Performed By: #### MARICARMEN CBCA, #### [facility] ([id number]) [address] [place] [address], [place] [address]Cxjbahev [Moles/Vol]105 mmol/IGlikrl67-990MnlZiasxbMarymount HospitalComment on above:Performed By: #### MARICARMEN CBCA, #### [facility] ([id number]) [address] [place] [address] 52017KE2 [Moles/Vol]24 mmol/YZdexeo05-07JczJlwkxiMercy Health St. [facility] Comment on above:Performed By: #### MARICARMEN CBCA, #### [facility] ([id number]) [address] [place] [address] 27470Qrezzfoeol [Mass/Vol]0.74 mg/dLNormal0.40-1.00Marymount HospitalComment on above:Result Comment: METHOD TRACEABLE TO IDMS STANDARD Performed By: #### MARICARMEN CBCA, #### [facility] ([id number]) [address] [place] [address], [place] [address]mZVR (CKD-EPI) NON-RACE DEPENDENT>90Normal>59ProNorth Texas State Hospital – Wichita Falls CampusComment on above:Result Comment: Reported eGFR is based on the CKD-EPI 2020 equation that does not use a race coefficient.Performed By: #### CHETAN HERNADEZ, #### [facility] ([id number]) [address] [place] [address] 73800Hjphltf [Mass/Vol]149 mg/xSQfcz09-12ZepArbngrNorth Texas State Hospital – [facility] Falls Campus Comment on above:Performed By: #### CHETAN HERNADEZ, #### [facility] ([id number]) [address] [place] [address] 56205Ajtrqfbnt [Moles/Vol]3.6 mmol/LNormal3.5-5.0ProNorth Texas State Hospital – Wichita Falls CampusComment on above:Performed By: #### CHETAN HERNADEZ, #### [facility] ([id number]) [address] [place] [address] 51203Xeaiul [Moles/Vol]135 mmol/SNmqrop644-355DkcLradrg Fremont HospitalComment on above:Performed By: #### CHETAN HERNADEZ, #### [facility] ([id number]) [address] [place] [address] 67959Tkdv nitrogen [Mass/Vol]10 mg/dLNormal5-23ProNorth Texas State Hospital – Wichita Falls CampusComment on above:Performed By: #### CHETAN HERNADEZ, #### [facility] ([id number]) [address] [place] [address] 67075SFR AND AUTO DIFFon 58-05-2282EAJBMVXS BASOPHIL0.0 X10E9/L Normal0.0-0.2PMercy Health St. Vincent Medical CenterComment on above:Performed By: #### CHETAN HERNADEZ, #### [facility] ([id number]) [address] [place] [address] 91085UMXNRFQD NEUTROPHIL4.9 X10E9/LNormal1.5-6.6Marymount HospitalComment on above:Performed By: #### CHETAN HERNADEZ, #### [facility] ([id number]) [address] [place] [address] 90930Dgynugbvq/100 WBC (Bld)0.4 %[facility] Comment on above:Performed By: #### CHETAN HERNADEZ, #### [facility] ([id number]) [address] [place] [address] 35352Scnnwipkeuf (Bld) [#/Vol]0.3 10*3/uLNormal0.0-0.4Marymount HospitalComment on above:Performed By: #### CHETAN HERNADEZ, #### [facility] ([id number]) [address] [place] [address] 17962Ffgexoeimkg/100 WBC (Bld)2.3 %[facility] Comment on above:Performed By: #### CHETAN HERNADEZ, #### [facility] ([id number]) [address] [place] [address] 53412Jdipdnasger distribution width (RBC) [Ratio]13.8 %Normal 11.5-15.0Marymount HospitalComment on above:Performed By: #### CHETAN HERNADEZ, #### [facility] ([id number]) [address] [place] [address] 93660Nlqcgrslis (Bld) [Volume fraction]34.8 %Sbs76-83YfcAzmqyxNorth Texas State Hospital – Wichita Falls CampusComment on above:Performed By: #### CHETAN HERNADEZ, #### [facility] ([id number]) [address] [place] [address] 90428Hwpudorlti (Bld) [Mass/Vol]11.5 g/dLLow11.7-15.5PMercy Health St. Vincent Medical CenterComment on above:Performed By: #### MARICARMEN CBCA, #### [facility] ([id number]) [address] [place] [address] 39920Vzowsxdpxce (Bld) [#/Vol]4.6 10*3/uLHigh1.0-3.5PMercy Health St. Vincent Medical CenterComment on above:Performed By: #### MARICARMEN, CBCA, #### [facility] ([id number]) [address] [place] [address] 04200Vroudurvezv/100 WBC (Bld)41.7 %NormalMarymount Hospital Comment on above:Performed By: #### MARICARMEN CBCPaco, #### [facility] ([id number]) [address] [place] [address] 52185OVE (RBC) [Entitic mass]27.8 scFuvkdl56-41GquCcktokMarymount HospitalComment on above:Performed By: #### MARICARMEN CBCA, #### [facility] ([id number]) [address] [place] [address] 19382JCAU (RBC) [Mass/Vol]33.0 g/sSXuhwck79-32MwhGxzopsNorth Texas State Hospital – Wichita Falls CampusComment on above:Performed By: #### MARICARMEN CBCA, #### [facility] ([id number]) [address] [place] [address] 41494KZW (RBC) [Entitic vol]84 gHIjhves69-681SrxLjzvtr [facility]ont HospitalComment on above:Performed By: #### MARICARMEN, CBCA, #### [facility] ([id number]) [address] [place] [address] 21699Gftcoitxb (Bld) [#/Vol]1.2 10*3/uLHigh0-0.9Marymount HospitalComment on above:Performed By: #### CHETAN HERNADEZ, #### [facility] ([id number]) [address] [place] [address] 20850Bwgbeelga/100 WBC (Bld)11.1 %NormalMarymount Hospital Comment on above:Performed By: #### CHETAN HERNADEZ, #### [facility] ([id number]) [address] [place] [address] 51584Gfdqgvmhvdk/100 WBC (Bld)44.5 %[facility] Comment on above:Performed By: #### CHETAN HERNADEZ, #### [facility] ([id number]) [address] [place] [address] 82623Otetexjq mean volume (Bld) [Entitic vol]7.6 fLNormal7-12 Marymount HospitalComment on above:Performed By: #### CHETAN HERNADEZ, #### [facility] ([id number]) [address] [place] [address], [place] [address]Berwiiqfk (Bld) [#/Vol]323 10*3/vXDmuekj448-909LlzUcdtzgMarymount HospitalComment on above:Performed By: #### CHETAN HERNADEZ, #### [facility] ([id number]) [address] [place] [address] 24831GWB COUNT4.12 X10E12/LNormal3.80-5.20[facility] Comment on above:Performed By: #### CHETAN HERNADEZ, #### [facility] ([id number]) [address] [place] [address] 60537WWY (Bld) [#/Vol]11.0 10*3/uLNormal4.0-11.0Marymount HospitalComment on above:Performed By: #### MARICARMEN CBCA, 10475-6 #### [facility] ([id number]) [address] [place] [address] 02611WER.beta subunit IA 3rd IS Qnon 07-74-3038KUY.beta subunit Qn 5361 m[IU]/mLNormalMarymount HospitalComment on above:Result Comment: NEW REFERENCE RANGE [...] nontrophoblastic neoplasms. Performed By: #### MARICARMEN CBCA, 56824-7 #### [facility] ([id number]) [address] [place] [address] 49080IVM ( test) Ql (U)on 53-74-8375Krcg HCG ( test) Ql (U)PositiveAbnormalNEGMarymount HospitalComment on above: Performed By: #### 2106-3 #### [facility] ([id number]) [address] [place] [address] 89303OVH.beta subunit IA 3rd IS Qnon 45-80-2542HKA.beta subunit Qn 6620 m[IU]/mLNormalMarymount HospitalComment on above:Result Comment: NEW REFERENCE RANGE [...] trophoblastic or nontrophoblastic neoplasms. Performed By: #### 27480-5 #### [facility] ([id number]) [address] [place] [address] 00003YEN MACROSCOPIC NURon 22-13-4416ZIOTVCKCZ NURSmallAbnormalNEG Pro[facility] Of UscComment on above:Performed By: #### NUM #### [facility] ([id number]) [address] [place] [address] 18181TWGQP/HGB NURLargeAbnormalNEGProNorth Texas State Hospital [facility] Wichita Falls CampusComment on above:Performed By: #### NUM #### [facility] ([id number]) [address] [place] [address] 27978LWMQLFA NURNegativeNormalNEGProNorth Texas State Hospital – Wichita Falls CampusComment on above:Performed By: #### NUM #### [facility] ([id number]) [address] [place] [address] 10881RLYFJFZ NURTraceAbnormalNEGProNorth Texas State Hospital [facility] Falls CampusComment on above:Performed By: #### NUM #### [facility] ([id number]) [address] [place] [address] 76940YSMGYNTJJ ESTERASE NURNegativeNormalNEGProNorth Texas State Hospital [facility] Wichita Falls CampusComment on above:Performed By: #### NUM #### [facility] ([id number]) [address] [place] [address] 88765IIOAGFO NURNegativeNormalNEGMarymount HospitalComment on above:Performed By: #### NUM #### [facility] ([id number]) [address] [place] [address] 35298UL NUR6.7Qipafs2.0-8.5PMercy Health St. Vincent Medical CenterComment on above:Performed By: #### NUM #### [facility] ([id number]) [address] [place] [address] 99997UELNGGT CXD222 mg/dLAbnormalNEGMarymount Hospital Comment on above:Performed By: #### NUM #### [facility] ([id number]) [address] [place] [address] 26002RKHKAROO GRAVITY NIKITA>=1.615Pduvvl0.003-1.035ProNorth Texas State Hospital – Wichita Falls CampusComment on above:Performed By: #### NUM #### [facility] ([id number]) [address] [place] [address] 26894PYBYGRCJUXUZ NUR1.0 eu/dLNormal<1.1PMercy Health St. [facility] Comment on above:Performed By: #### NUM #### [facility] ([id number]) [address] [place] [address] 64881RY PREG LESS THAN 14 WKS WITH TRANSVAGINALon 66-45-4996KB PREG LESS THAN 14 WKS WITH TRANSVAGINALUS [...] by Olvin Overton MD on 12/19/2023 6:46 [facility] UscChlamydia/GC/Trich NAAon 55-40-6410Rfmwqadqy Trachomotis, NAANegative NormalNegativeAkron Children'S HospitalComment on above:Performed By: #### CUU #### [place] [address] [place] #### GCCHLAMTRI #### [facility] ,Neisseria Gonorrhoeae, NAANegativeNormalNegativeAkron Children'S HospitalComment on above:Performed By: #### CUU #### [place] [address] [place] #### GCCHLAMTRI #### [facility] ,Trichomonas NAANegativeNormalNegativeAkron Children'S HospitalComment on above:Result Comment: Performed at: = - [facility] [id number] [place] Hanker: Cindy Pinzon MD, Phone: [phone] PERFORMED BY: [place] [address] PATHOLOGIST NETWORK COORDINATOR BROOKLYNN PEARCE M.D.Performed By: #### CUU #### [place] [address] [place] #### GCCHLAMTRI #### [facility] ,Urine Cultureon 19-51-4065Eurvczhz identified Cx Nom (U)30,000 colonies/ml mixed bacterial skin contaminants 2 Days PERFORMED BY: [facility] [address] [place] [address] PATHOLOGIST NETWORK COORDINATOR BROOKLYNN PEARCE M.D.[facility] Warren HospitalComment on above: Performed By: #### CUU #### [facility] [address] #### GCCHLAMTRI #### [facility] ,Pap IG,rfx Aptima HPV all pthon 11-16-2021..[facility] HospitalComtrinity [facility] on above:Performed By: #### HIV12 #### [facility] [address] [place] [address] Andriy KarenDIAGNOSIS:CommentSelect Medical Specialty Hospital - [facility] on above:Result Comment: NEGATIVE FOR INTRAEPITHELIAL LESION OR MALIGNANCY. THIS SPECIMEN WAS RESCREENED PART OF OUR SEED TECHNICIAN PROGRAM.Performed By: #### HIV12 #### [facility] [address] [place] [address] Andriy KarenMethodology:CommentSelect Medical Specialty Hospital - [place] on above: Result Comment: This liquid based ThinPrep(R) pap test was screened with the use of an image guided system.Performed By: #### HIV12 #### [facility] [address] [place] [address] Andriy KarenNote:CommentSelect Medical Specialty Hospital - [place] on above:Result Comment: The Pap smear is a screening test designed to aid in the detection of premalignant and malignant conditions of the uterine cervix. It is not a diagnostic procedure and should not be used as the sole means of detecting cervical cancer. Both false-positive and false-negative reports do occur. .Performed By: #### HIV12 #### [facility] [address] [place] [address] Andriy KarenPerformed by:[facility] on above: Result Comment: Yanni Dela Cruz, Disease And Insect Control Boss (ASCP)Performed By: #### HIV12 #### [facility] [address] [place] [address] Andriy KarenQC reviewed by:CommentSelect Medical Specialty Hospital - [place] on above: Result Comment: Summer Motley, Supervisory Disease And Insect Control Boss (ASCP)Performed By: #### HIV12 #### [facility] [address] [place] [address] Andriy KarenReflex Criteria:CommentSelect Medical Specialty Hospital - [place] on above: Result Comment: The HPV DNA reflex criteria were not met with this specimen result therefore, no HPV testing was performed. .Performed By: #### HIV12 #### [facility] [address] [place] [address] Andriy KarenSpecimen adequacy:CommentSelect Medical Specialty Hospital - [place] on above:Result Comment: Satisfactory for evaluation. Endocervical and/or squamous metaplastic cells (endocervical component) are present.Performed By: #### HIV12 #### [facility] [address] [place] [address] Andriy KarenCBC AUTO DIFFon 96-15-0599RGJK #0.0 103/ulNormal0.0-0.1[facility] HospitalComment on above:Performed By: #### HIV12 #### [facility] [address] [place] [address] Andriy KarenBasophils/100 WBC (Bld)0.2 %Normal0.2-2.0[facility] Comment on above:Performed By: #### HIV12 #### [facility] [address] [place] [address] Andriy KarenEO #0.2 103/ulNormal0.0-0.7[facility] on above: Performed By: #### HIV12 #### [facility] [address] [place] [address] Andriy KarenEosinophils/100 WBC (Bld)1.4 %Normal0.9-7.0[facility] Comment on above:Performed By: #### HIV12 #### [facility] [address] [place] [address] Andriy KarenErythrocyte distribution width (RBC) [Ratio]16.9 %Critically high 11.0-15.0The [facility] HospitalComment on above:Performed By: #### HIV12 #### [facility] [address] [place] [address] Andriy KarenHematocrit (Bld) [Volume fraction]28.9 %Critically low36.0-48.0[facility] HospitalComment on above:Performed By: #### HIV12 #### [facility] [address] [place] [address] Andriy KarenHemoglobin (Bld) [Mass/Vol]9.2 g/dLCritically low12.0-16.0[facility] Memorial HospitalComment on above:Result Comment: PATIENT DELIVEREDPerformed By: #### HIV12 #### [facility] [address] [place] [address] Andriy KarenIG #0.07 10e3/ulCritically high0.00-0.03[facility] HospitalComment on above:Performed By: #### HIV12 #### [facility] [address] [place] [address] Andriy KarenIG %0.7 %Critically high0.0-0.5The [facility] HospitalComment on above:Performed By: #### HIV12 #### [facility] [address] [place] [address] Andriy KarenLYMPH #3.2 103/ulNormal1.2-3.8The [facility] HospitalComment on above: Performed By: #### HIV12 #### [facility] [address] [place] [address] Andriy KarenLymphocytes/100 WBC (Bld)29.7 %Vurdrd11.5-60.0[facility] Comment on above:Performed By: #### HIV12 #### [facility] [address] [place] [address] Andriy KarenMANUAL DIFF REQNONormalThe [facility] HospitalComment on above: Performed By: #### HIV12 #### [facility] [address] [address] Andriy SteinMCH (RBC) [Entitic mass]28.0 gjGozxar06.7-34.0[facility] Comment on above:Performed By: #### HIV12 #### [facility] [address] [place] [address] Andriy SteinMC (RBC) [Mass/Vol]31.8 g/hCCodxji92.9-35.2[facility] Comment on above:Performed By: #### HIV12 #### [facility] [address] [place] [address] Andriy SteinMCV (RBC) [Entitic vol]87.8 eVNpzfso57.0-99.0[facility] Comment on above:Performed By: #### HIV12 #### [facility] [address] [place] [address] Andriy KarenMONO #0.9 103/ulCritically high0.3-0.8The [facility] HospitalComment on above:Performed By: #### HIV12 #### [facility] [address] [place] [address] Andriy KarenMonocytes/100 WBC (Bld)8.3 %Normal1.7-12.0[facility] Comment on above:Performed By: #### HIV12 #### [facility] [address] [place] [address] Andriy KarenNEUT #6.3 103/ulNormal1.4-6.5The [facility] HospitalComment on above: Performed By: #### HIV12 #### [facility] [address] [place] [address] Andriy KarenNeutrophils/100 WBC (Bld)59.7 %Ofbvrf03.0-75.0[facility] Comment on above:Performed By: #### HIV12 #### [facility] [address] [place] [address] Andriy KarenPlatelet mean volume (Bld) [Entitic vol]9.7 fLNormal9.5-13.5The [facility] HospitalComment on above:Performed By: #### HIV12 #### [facility] [address] [place] [address] Andriy SteinPLT173 103/ftIjitjy669-830Bho [facility] HospitalComment on above: Performed By: #### HIV12 #### [facility] [address] [place] [address] Andriy RodgersenRBC3.29 106/ulCritically low4.20-5.40The [facility] HospitalComment on above:Performed By: #### HIV12 #### [facility] [address] [place] [address] Andriy SteinWBC10.6 103/ulNormal4.0-11.0The [facility] HospitalComment on above: Performed By: #### HIV12 #### [facility] [address] [place] [address] Andriy RodgersenASYMPTOMATIC COVID-19 ANTIGENon 66-42-8658CUV StatementSEE BELOW NormalThe [facility] HospitalComment on above:Result Comment: This test has [...] is revoked sooner.Performed By: #### HBSANS #### [facility] [address] [place] [address] Andriy HaqOtmsdNLLL-JyL-9 (COVID-19) RNA CARLITOS+probe Ql (Unsp spec)NegativeNormal NEGATIVEThe [facility] Memorial HospitalComment on above:Result Comment: Negative results are presumptive. They do not preclude infection and should not be used as the sole basis for treatment decisions. Additional confirmatory testing by a molecular method should be considered.Performed By: #### HBSANS #### [facility] [address] [address] Andriy ChristopherBC AUTO DIFFon [id number] #0.0 103/ulNormal0.0-0.1The [facility] Community Hospitalment on above:Performed By: #### CBC ####[facility] [address] [address]Dr.Yilan ChangBasophils/100 WBC (Bld)0.2 %Normal0.2-2.0[facility] on above:Performed By: #### CBC ####[facility] [address] [address]Dr.Yilan ChangEO #0.1 103/ulNormal0.0-0.7The [facility] HospitalComment on above:Performed By: #### CBC ####[facility] [address] [place], [place] [address]Dr.Yilan ChangEosinophils/100 WBC (Bld)1.0 %Normal 0.9-7.0[facility] on above:Performed By: #### CBC ####[facility] [address] [address]Dr.Sunil Conner Erythrocyte distribution width (RBC) [Ratio]17.0 %Critically high11.0-15.0[facility] on above:Performed By: #### CBC ####[facility] [address] [place], [place] [address]Dr.Sunil ChangHematocrit (Bld) [Volume fraction]37.5 %Lokixi32.0-48.0[facility] on above:Performed By: #### CBC ####[facility] [address] [place], [place] [address]Dr.Chelsiebriana ChangHemoglobin (Bld) [Mass/Vol]12.3 g/dL Nhffgo46.0-16.0The [facility]ago HospitalComment on above:Performed By: #### CBC ####[facility] [address] [address]Dr. Chelsiebriana UbaldoIG #0.05 10e3/ulCritically high0.00-0.03The [facility] HospitalComment on above:Performed By: #### CBC ####[facility] [address] [id number].Sunil ConnerIG %0.5 %Normal0.0-0.5The [facility]ot Memorial HospitalComment on above:Performed By: #### CBC ####[facility] Hjnjfheyih[address] [place], [place] [address]Dr.Sunil CabreraMPH #2.8 103/ulNormal1.2-3.8The [facility] HospitalComment on above:Performed By: #### CBC ####[facility] Xgfjfxwlrq[address] [place], [place] [address]Dr. Sunil Cabrerahocytes/100 WBC (Bld)28.4 %Kxucvg78.5-60.0[facility] Comment on above:Performed By: #### CBC ####[facility] Khgnixcgzj16[address] [place], [place] [address]Dr.Sunil ConnerMANUAL DIFF REQNONormalThe [facility] HospitalComment on above:Performed By: #### CBC ####[facility] Qceecvttqv25[address] [place], [place] [address]Dr.Sunil ConnerROCHESTER GENER[facility] (RBC) [Entitic mass]28.5 uaTjtkde25.7-34.0The [facility] HospitalComment on above: Performed By: #### CBC ####[facility] Cbzlakzywg54[address] [place], [place] [address]Dr.Sunil ConnerHC (RBC) [Mass/Vol]32.8 g/dLNormal 29.9-35.2The [facility] HospitalComment on above:Performed By: #### CBC ####[facility] Tbxquhguso06[address] [place], [place] [address]Dr. Sunil ConnerV (RBC) [Entitic vol]86.8 vETexqdu93.0-99.0The [facility] Comment on above:Performed By: #### CBC ####[facility] Bcpphfiavu23[address] [place], [place] [address]Dr.Sunil ConnerMONO #0.8 103/ulNormal0.3-0.8 The [facility] HospitalComment on above:Performed By: #### CBC ####[facility] Jrikcmnbxk187[address] [place], [place] [address]Dr.Sunil Conner Monocytes/100 WBC (Bld)7.9 %Normal1.7-12.0The [facility] HospitalComment on above: Performed By: #### CBC ####[facility] Juzuhyxxhv174[address] [place], [place] [address]Dr.Sunil ConnerNEUT #6.0 103/ulNormal1.4-6.5The [facility] HospitalComment on above:Performed By: #### CBC ####[facility] Ixtqfarrtj[address] [place], [place] [address]Dr.Sunil ConnerNeutrophils/100 WBC (Bld)62.0 %Meurnu42.0-75.0The [facility] HospitalComment on above:Performed By: #### CBC ####[facility] Zjrsuhdnwi369[address] [place], [place] [address]Dr.Sunil ConnerPlatelet mean volume (Bld) [Entitic vol]10.2 fLNormal9.5-13.5 [facility] HospitalComment on above:Performed By: #### CBC ####[facility] Iwmqobczex9[address] [place], [place] [address]Dr.Sunil MtooaIUN878 103/adAnknot817-358Ppd [facility] HospitalComment on above:Performed By: #### CBC ####[facility] Zbhgkapktn[address] [place], [place] [address]Dr. Sunil UbaldoRBC4.32 106/ulNormal4.20-5.40The [facility] HospitalComment on above: Performed By: #### CBC ####[facility] Kgsanbhsry95[address] [place], [place] [address]Dr.Chelsielan ChangWBC9.7 103/ulNormal4.0-11.0[facility] HospitalComment on above:Performed By: #### CBC ####[facility] Qspkoojylu65[address] [place], [place] [address]Dr.Sunil ConnerDRUG SCREEN RAPID (URINE)on 71-63-3389TKNRfajiwrkSfmognJETVVEHUQym Bellevue HospitalComment on above:Performed By: #### DRUGRPD ####[facility] Gzgvhonbct[address] [place], [place] [address]Dr. Sunil ConnerBARNegativeNormalNEGATIVELicking Memorial HospitalComment on above:Performed By: #### DRUGRPD ####[facility] Riualzbope29[address] [place], [place] [address]Dr. Sunil ConnerBUP NegativeNormohNEGGrand Lake Joint Township District Memorial HospitalComment on above:Performed By: #### DRUGRPD ####[facility] Tluhflusaj[address] [place], [place] [address]Dr. Sunil UbaldoBZONegativeNormalNEGATIVELicking Memorial HospitalComment on above:Performed By: #### DRUGRPD ####[facility] Dlkmlsgrqk4685[address] [place], [place] [address]Dr. Sunil ConnerCOCNegativeNormalNEGGrand Lake Joint Township District Memorial HospitalComment on above:Performed By: #### DRUGRPD ####[facility] Sjmbzhiidv6920[address] [place], [place] [address]Dr. Chelsiebriana UbaldoCUT-OFFSSEE Providence HospitalComment on above:Result Comment: AMP (Amphetamine): 500ng/mL, BAR (Barbituates): 200 ng/mL, BZO (Benzodiazepines): 15 0 ng/mL, BUP (Buprenorphine): 10 ng/mL, TAMICA (Cocaine): 150 ng/mL, mAMP (Methamphetamine): 500 ng/mL, MTD (Methadone): 200 ng/mL, OPI (Opiates): 100 ng/mL, OXY (Oxycodone): 100 ng/mL, PCP (Phencyclidine): 25 ng/mL, PPX (Propoxyphene): 300 ng/mL, THC (Cannabinoids): 50 ng/mL, TCA (Trycyclic Antidepressants): 300 ng/mLPerformed By: #### DRUGRPD ####[facility] Fntynqrhkr[address] [place], [place] [address]Dr. Yilan ChangDRUG CUT HEADERDRUG CLASS TEST SYSTEM CUT-OFF CONCENTRATIONS ARE FOLLOWS:NormalThe Mount Arlington HospitalComment on above:Performed By: #### DRUGRPD ####[facility] Erpenyxxcq[address] [place], [place] [address]Dr. Yilan ChangmAMP NegativeNormalNEGATIVEOhio State University Wexner Medical Center HospitalComment on above:Performed By: #### DRUGRPD ####[facility] Adhigdqvzc0225[address] [place], [place] [address]Dr. Yilan ChangMTDNegativeNormalNEGATIVEOhio State University Wexner Medical Center HospitalComment on above:Performed By: #### DRUGRPD ####[facility] Hwcmlftdpi[address] [place], [place] [address]Dr. Yilan ChangOPINegativeNormalNEGATIVEOhio State University Wexner Medical Center HospitalComment on above:Performed By: #### DRUGRPD ####[facility] Aonxlgesns1336[address] [place], [place] [address]Dr. Yilan ChangOXYNegative NormalNEGATIVEOhio State University Wexner Medical Center HospitalComment on above:Performed By: #### DRUGRPD ####[facility] Oucwxrokeq[address] [place], [place] [address]Dr. Yilan ChangPCPNegativeNormalNEGATIVEOhio State University Wexner Medical Center HospitalComment on above: Performed By: #### DRUGRPD ####[facility] Degyzbsfnn[address] [place], [place] [address]Dr. Yilan ChangPPXNegativeNormalNEGATIVEOhio State University Wexner Medical Center HospitalComment on above:Performed By: #### DRUGRPD ####[facility] Kfmnuchcvd8[address] [place], [place] [address]Dr. Yilan ChangTCANegative NormalNEGATIVEOhio State University Wexner Medical Center HospitalComment on above:Performed By: #### DRUGRPD ####[facility] Zkprqvaipa[address] [place], [place] [address]Dr. Yilan ChangTHCNegativeNormalNEGATIVEThe [facility]ago HospitalComment on above: Performed By: #### DRUGRPD ####[facility] [address] [place], [place] [address]JbDr. Sunil ConnerTYPE AND SCREENon 01-03-9029IQUH AND SCREENNegativeNoOhioHealth Shelby HospitalComtrinity health ann [facility] hospital on above:Performed By: #### TNS #### [facility] [address] [place], [place] [address] Dr. Sunil Kong PREG BIOPHY W NON STRESSon [id number] PREG BIOPHY W NON STRESSEXAMINATION: US PREG [...] Electronically authenticated by: NADIA DOOLEY Date: 2021-07-13 10:55[facility] HospitalUS PREG GROWTHon [id number] PREG GROWTHEXAMINATION: US PREG GROWTH HISTORY: History [...] EFW: 6 lbs. 3 oz., 37% FL/AC: 0.717699 FL/BPD: 0.932969 HC/AC: 0.607643 GESTATIONAL AGE: Age by EDC: 36 weeks 4 days FAHEEM by EDC: 08/04/2021 Age by US: 35 weeks 3 days FAHEEM by US: 08/12/2021 IMPRESSION: Normal interval growth Electronically authenticated by: NADIA DOOLEY Date: 2021-07-11 10:28NoOhioHealth Shelby HospitalCOVID Quick Testingon [id number] [employer] Alley Other Quick Strepon 07-09-2021. pyogenes Org specific cx Ql (Throat)NegativeLake Hill Automation Alley Other Quick StrepBlue [employer] Other GROUP B STREP CULTUREon 07-06-2021. agalactiae Ag Ql (Unsp spec)Culture Observations: NEGATIVE FOR GROUP B STREPTOCOCCUS.NormalThe [facility] HospitalComment on above: Performed By: #### GBSCX #### [facility] [address] [place] [address] Dr. Sunil Kong PREG GROWTHon [id number] PREG GROWTHEXAMINATION: US PREG GROWTH HISTORY: History [...] EFW: 4 lbs. 14 oz., 53% FL/AC: 0.328286 FL/BPD: 0.382843 HC/AC: 1.606146 GESTATIONAL AGE: Age by EDC: 33 weeks 4 days FAHEEM by EDC: 08/04/2021 Age by US: 33 weeks 1 day FAHEEM by US: 08/07/2021 IMPRESSION: Normal interval growth Electronically authenticated by: NADIA DOOLEY Date: 2021-06-20 11:46[facility] HospitalCBC AUTO DIFFon [id number] #0.0 103/ulNormal0.0-0.1The [facility] HospitalComment on above:Performed By: #### HIV12 #### [facility] [address] [place] [id number] Andriy KarenBasophils/100 WBC (Bld)0.5 %Normal0.2-2.0The [facility] Comment on above:Performed By: #### HIV12 #### [facility] [address] [place] [address] Andriy KarenEO #0.1 103/ulNormal0.0-0.7The [facility] HospitalComment on above: Performed By: #### HIV12 #### [facility] [address] [place] [address] Andriy KarenEosinophils/100 WBC (Bld)1.3 %Normal0.9-7.0The [facility] Comment on above:Performed By: #### HIV12 #### [facility] [address] [place] [address] Andriy KarenErythrocyte distribution width (RBC) [Ratio]19.8 %Critically high 11.0-15.0The [facility] HospitalComment on above:Performed By: #### HIV12 #### [facility] [address] [place] [address] Andriy KarenHematocrit (Bld) [Volume fraction]34.9 %Critically low36.0-48.0The [facility] HospitalComment on above:Performed By: #### HIV12 #### [facility] [address] [place] [address] Andriy KarenHemoglobin (Bld) [Mass/Vol]11.1 g/dLCritically low12.0-16.0The [facility] HospitalComment on above:Performed By: #### HIV12 #### [facility] [address] [place] [address] Andriy KarenIG #0.04 10e3/ulCritically high0.00-0.03The [facility] HospitalComment on above:Performed By: #### HIV12 #### [facility] [address] [place] [address] Andriy KarenIG %0.5 %Normal0.0-0.5The [facility] HospitalComment on above: Performed By: #### HIV12 #### [facility] [address] [place] [address] Andriy KarenLYMPH #2.1 103/ulNormal1.2-3.8The [facility] HospitalComment on above: Performed By: #### HIV12 #### [facility] [address] [place] [address] Andriy KarenLymphocytes/100 WBC (Bld)24.8 %Ysaqqz79.5-60.0[facility] Comment on above:Performed By: #### HIV12 #### [facility] [address] [place] [id number] Andriy KarenMANUAL DIFF REQNONormalThe [facility] HospitalComment on above: Performed By: #### HIV12 #### [facility] [address] [place] [address] Andriy KarenMCH (RBC) [Entitic mass]27.5 geCjqarl02.7-34.0[facility] Comment on above:Performed By: #### HIV12 #### [facility] [address] [place] [id number] Andriy KarenMCHC (RBC) [Mass/Vol]31.8 g/oVPzezof66.9-35.2[facility] Comment on above:Performed By: #### HIV12 #### [facility] [address] [place] [address] Andriy KarenMCV (RBC) [Entitic vol]86.6 kPSfiplq86.0-99.0[facility] Comment on above:Performed By: #### HIV12 #### [facility] [address] [place] [id number] Andriy KarenMONO #0.7 103/ulNormal0.3-0.8The [facility] HospitalComment on above: Performed By: #### HIV12 #### [facility] [address] [place] [address] Andriy KarenMonocytes/100 WBC (Bld)8.7 %Normal1.7-12.0[facility] Comment on above:Performed By: #### HIV12 #### [facility] [address] [place] [address] Andriy KarenNEUT #5.4 103/ulNormal1.4-6.5The [facility] HospitalComment on above: Performed By: #### HIV12 #### [facility] [address] [place] [address] Andriy KarenNeutrophils/100 WBC (Bld)64.2 %Ppiwwf81.0-75.0The [facility] Comment on above:Performed By: #### HIV12 #### [facility] [address] [place] [address] Andriy KarenPlatelet mean volume (Bld) [Entitic vol]9.9 fLNormal9.5-13.5The [facility] HospitalComment on above:Performed By: #### HIV12 #### [facility] [address] [place] [address] nAdriy BmofiKOH189 103/gqXcnsvd849-254Ilk [facility] HospitalComment on above: Performed By: #### HIV12 #### [facility] [address] [place] [address] Andriy KarenRBC4.03 106/ulCritically low4.20-5.40The [facility] HospitalComment on above:Performed By: #### HIV12 #### [facility] [address] [place] [address] Andriy KarenWBC8.5 103/ulNormal4.0-11.0The [facility] HospitalComment on above: Performed By: #### HIV12 #### [facility] [address] [place] [address] Andriy KarenGTT 3 HR PREGon 02-10-7141Rugcigj [Mass/Vol]85 mg/iTWskvdu99-903Wei [facility] HospitalComment on above:Performed By: #### GTT3P ####[facility] [address] [place] [address]Dr. Yibriana ChangGlucose [Mass/Vol]188 mg/dLNormalThe [facility] HospitalComment on above:Performed By: #### GTT3P ####[facility] [address] [place] [address]DrWilson Barber ChangGlucose [Mass/Vol]133 mg/dLAultman Alliance Community Hospital Comment on above:Performed By: #### GTT3P ####[facility] [address] [place] [address]Dr. Sunil ConnerGlucose [Mass/Vol]122 mg/dL NormalThe [facility] HospitalComment on above:Performed By: #### GTT3P ####[facility] [address] [place] [address]DrWilson ConnerCBC AUTO DIFFon [id number] #0.0 103/ulNormal0.0-0.1[facility] HospitalComment on above:Performed By: #### CBC #### [facility] [address] [place] [address] [address] Sunil ConnerBasophils/100 WBC (Bld)0.3 %Normal0.2-2.0[facility] Comment on above:Performed By: #### CBC #### [facility] [address] [place] [address] [address] Sunil Gomez #0.1 103/ulNormal0.0-0.7The [facility] HospitalComment on above: Performed By: #### CBC #### [facility] [address] [place] [address] [address] Sunil Copelandosinophils/100 WBC (Bld)1.2 %Normal0.9-7.0[facility] Comment on above:Performed By: #### CBC #### [facility] [address] [place] [address] [address] Sunil Copelandrythrocyte distribution width (RBC) [Ratio]14.6 %Jrpbjl65.0-15.0 [facility] HospitalComment on above:Performed By: #### CBC #### [facility] [address] [place] [address] [address] Sunil ConnerHematocrit (Bld) [Volume fraction]31.6 %Critically low36.0-48.0 The [facility] HospitalComment on above:Performed By: #### CBC #### [facility] [address] [place] [address] Dr. Sunil ConnerHemoglobin (Bld) [Mass/Vol]9.9 g/dLCritically low12.0-16.0The [facility] HospitalComment on above:Performed By: #### CBC #### [facility] [address] [place] [address] Dr. Sunil Neumann #0.05 10e3/ulCritically high0.00-0.03The [facility] Comment on above:Performed By: #### CBC #### [facility] [address] [place] [address] Dr. Sunil Neumann %0.5 %Normal0.0-0.5The [facility] HospitalComment on above: Performed By: #### CBC #### [facility] [address] [place] [address] Dr. Sunil Calhoun #2.4 103/ulNormal1.2-3.8The [facility] HospitalComment on above:Performed By: #### CBC #### [facility] [address] [place] [address] Dr. Sunil Tavareshocytes/100 WBC (Bld)25.6 %Oskbpg02.5-60.0The [facility] HospitalComment on above:Performed By: #### CBC #### [facility] [address] [place] [address] Dr. Sunil Lacy DIFF REQNONormalThe [facility] HospitalComment on above: Performed By: #### CBC #### [facility] [address] [place] [address] Dr. Sunil Bowie (RBC) [Entitic mass]25.8 pgCritically low26.7-34.0The [facility] HospitalComment on above:Performed By: #### CBC #### [facility] [address] [place] [address] Dr. Sunil Ayala (RBC) [Mass/Vol]31.3 g/xWShcnhn01.9-35.2The [facility] HospitalComment on above:Performed By: #### CBC #### [facility] [address] [place] [address] Dr. Sunil AyalaV (RBC) [Entitic vol]82.3 zZHmubps73.0-99.0The [facility] HospitalComment on above:Performed By: #### CBC #### [facility] [address] [place] [address] Dr. Sunil Chua #0.5 103/ulNormal0.3-0.8The [facility] HospitalComment on above:Performed By: #### CBC #### [facility] [address] [place] [address] Dr. Sunil Eastmanocytes/100 WBC (Bld)5.3 %Normal1.7-12.0The [facility] Comment on above:Performed By: #### CBC #### [facility] [address] [place] [address] Dr. Sunil Choi #6.4 103/ulNormal1.4-6.5The [facility] HospitalComment on above:Performed By: #### CBC #### [facility] [address] [place] [address] Dr. Sunil Loerautrophils/100 WBC (Bld)67.1 %Zgztpg11.0-75.0The [facility] HospitalComment on above:Performed By: #### CBC #### [facility] [address] [place] [address] Dr. Sunil Parralet mean volume (Bld) [Entitic vol]10.3 fLNormal9.5-13.5The [facility] HospitalComment on above:Performed By: #### CBC #### [facility] [address] [place] [address] Dr. Sunil BarajasT255 103/blHcfdcl722-066Rmf [facility] HospitalComment on above: Performed By: #### CBC #### [facility] [address] [place] [address] Dr. Sunil GibsonC3.84 106/ulCritically low4.20-5.40The [facility] HospitalComment on above:Performed By: #### CBC #### [facility] [address] [place] [address] Dr. Sunil ConnerWBC9.5 103/ulNormal4.0-11.0The [facility] HospitalComment on above: Performed By: #### CBC #### [facility] [address] [place] [address] Dr. Sunil ConnerGLUCOSE - 1HRon 92-94-3355Aaufsfe [Mass/Vol]171 mg/dLCritically txdq84-942Etv [facility] HospitalComment on above:Performed By: #### HIV12 #### [facility] [address] [place] [address] Andriy KarenVAGINITIS/VAGINOSIS DNA PROBEon 34-78-2177Fdolaxd speciesPositive AbnormalNegativeThe [facility] HospitalComment on above:Performed By: #### VAGINT #### [facility] [address] [place] [address] Dr. Sunil Herreraerechente vaginalisNegativeNormalNegativeLicking [facility] Hospital Comment on above:Performed By: #### VAGINT #### [facility] [address] [place] [address] Dr. Sunil ConnerTrichomonas vaginalisNegativeNormalNegativeLicking Memorial Hospital Comment on above:Performed By: #### VAGINT #### [facility] [address] [place] [address] Dr. Sunil Kong PREG ANATOMY SINGLEon [id number] PREG ANATOMY SINGLE EXAMINATION: US PREG ANATOMY [...] weeks 3 days EFW:12 ounces, 47%; FL/AC: 0.019531 FL/BPD: 0.100849 HC/AC: 1.450047 GESTATIONAL AGE: Age by EDC: 20 weeks 4 days FAHEEM by EDC: 08/04/2021 Age by current US: 20 weeks 2 days FAHEEM by current US: 08/06/2021 IMPRESSION: Normal anatomy scan *Reference: [employer] Practice Guideline for the performance of Obstetric Ultrasound Examinations, March 25, 2007. Electronically authenticated by: NADIA DOOLEY Date: 2021-03-21 16:13[facility] ACOG PANEL 3: 21 to 29on 02-21-2021..NormalThe [facility] HospitalComment on above:Result Comment: Performed at: WBPerformed By: #### HIV12 #### [facility] [address] [place] [address] Andriy Robbins Gdln ACOG Kbgljje98-57OxlxzaDvxOhioHealth Shelby HospitalComment on above:Performed By: #### HIV12 #### [facility] [address] [place] [address] Andriy KarenChlamydia, Nuc. Acid AmpNegativeNormalNegativeLicking Memorial Hospital Comment on above:Result Comment: Performed at: =GPerformed By: #### HIV12 #### [facility] [address] [place] [address] Andriy KarenDIAGNOSIS:CommentAbMercy Health West HospitalComment on above: Result Comment: EPITHELIAL CELL ABNORMALITY. LOW-GRADE SQUAMOUS INTRAEPITHELIAL LESION (LSIL); MILD DYSPLASIA. Performed at: WBPerformed By: #### HIV12 #### [facility] [address] [place] [address] Andriy KarenElectronically signed by:CommentSelect Medical Specialty Hospital - [place] on above:Result Comment: Kenneth العلي MD, Pathologist Performed at: WBPerformed By: #### HIV12 #### [facility] [address] [place] [address] Andriy KarenGonococcus, Nuc. Acid AmpNegativeNormalNegativeLicking Memorial Hospital Comment on above:Result Comment: Performed at: =GPerformed By: #### HIV12 #### [facility] [address] [place] [address] Andriy KarenMethodology:CommentSelect Medical Specialty Hospital - [place] on above: Result Comment: This liquid based ThinPrep(R) pap test was screened with the use of an image guided system. Performed at: WBPerformed By: #### HIV12 #### [facility] [address] [place] [address] Andriy RodgersenNote:CommentNoRegency Hospital Cleveland West on above:Result Comment: The Pap smear is a screening test designed to aid in the detection of premalignant and malignant conditions of the uterine cervix. It is not a diagnostic procedure and should not be used as the sole means of detecting cervical cancer. Both false-positive and false-negative reports do occur. . Performed at: WBPerformed By: #### HIV12 #### [facility] [address] [place] [address] Andriy RodgersenPathologist Provided TQP93DxvugkgWzrnbqFqqRegency Hospital [facility] West on above:Result Comment: [id number] Performed at: WBPerformed By: #### HIV12 #### [facility] [address] [place] [address] Andriy RodgersenPerformed by:CommentSelect Medical Specialty Hospital - [place] on above: Result Comment: Lilly Partida, Disease And Insect Control Boss (ASCP) Performed at: WBPerformed By: #### HIV12 #### [facility] [address] [place] [address] Andriy RodgersenRecommendation:CommentAbGenesis Hospital on above: Result Comment: Suggest follow up as clinically appropriate. Performed at: WBPerformed By: #### HIV12 #### [facility] [address] [address] Andriy KarenReflex Criteria:[facility] on above: Result Comment: The HPV DNA reflex criteria were not met with this specimen result therefore, no HPV testing was performed. . Performed at: WBPerformed By: #### HIV12 #### [facility] [address] [address] Andriy KarenSpecimen adequacy:CommentSelect Medical Specialty Hospital - [place] on above:Result Comment: Satisfactory for evaluation. Endocervical and/or squamous metaplastic cells (endocervical component) are present. Performed at: WBPerformed By: #### HIV12 #### [facility] [address] [place] [address] Andriy KarenAFP MATERNAL FOR SPINA BIFIDAon 90-35-8200XTD MoM1.15NormalLicking Memorial HospitalComtrinity health ann [facility]bor hospital on above:Performed By: #### HIV12 #### [facility] [address] [address] Andriy KarenAFP Value35.0 ng/mLNCommunity Regional Medical Center on above: Performed By: #### HIV12 #### [facility] [address] [address] Andriy KarenAFP, Serum for Spina BifidaReportNoOhioHealth [facility] on above:Performed By: #### HIV12 #### [facility] [address] [place] [address] Andriy KarenCommentCommentSelect Medical Specialty Hospital - Youngstown on above:Result Comment: Eve Perez, Ph.D., [facility] Director . References: Available Upon Request. . Multiples Of Median Cutoffs For AFP Elevations Beebe 2.5 Black 2.8 IDD 2.0 Twins 4.5 Abbreviation Definitions IDD - Insulin Dep Diabetes OSBR - Open Spina Bifida Risk . For further inquiries contact [facility] at [phone].Performed By: #### HIV12 #### [facility] [address] [place] [address] Andriy RodgersenGest Age Collection Date16.0 weeksAultman Alliance Community HospitalComtrinity health [facility] on above:Performed By: #### HIV12 #### [facility] [address] [place] [address] Andriy KarenGestat, Age Based onUltrasoundAultman Alliance Community HospitalComtrinity [facility] on above:Result Comment: 16.0 on 02/17/2021 Recalculations are not recommended when gestational dating by LMP and ultrasound are within 10 days.Performed By: #### HIV12 #### [facility] [address] [place] [address] Andriy KarenInsulin Dep DiabetesMercy Health Defiance HospitalComment on above: Performed By: #### HIV12 #### [facility] [address] [place] [address] Andriy KarenInterpretationComMercy Health Kings Mills HospitalComtr[facility] on above: Result Comment: Interpretation: Screen [...] Customer Services to discuss available options. The [employer] recommends amniocentesis be offered to women age 35 and older.Performed By: #### HIV12 #### [facility] [address] [place] [address] Andriy RodgersenMaternal Age at EDD30.0 yrAultman Alliance Community HospitalComtrinity health [facility] on above:Performed By: #### HIV12 #### [facility] [address] [place] [address] Andryi KarenMultiple GestationMercy Health Defiance HospitalComtrinity health [facility] on above: Performed By: #### HIV12 #### [facility] [address] [place] [address] Andriy KarenOSBR Risk 1 [id number] Shelby HospitalComment on above: Performed By: #### HIV12 #### [facility] [address] [address] Andriy KarenPDF.NormalLicking Memorial HospitalComment on above:Performed By: #### HIV12 #### [facility] [address] [address] Andriy KarenRaceCaucasianNormalThe [facility] HospitalComment on above:Performed By: #### HIV12 #### [facility] [address] [address] Andriy KarenTest Results:NegativeNoOhioHealth Shelby HospitalComment on above: Performed By: #### HIV12 #### [facility] [address] [address] Andriy KarenHEMOGLOBINOPATHY FRACTIONATION CASCADEon 36-09-5331LCH A97.3 %Normal 96.4-98.8The [facility] HospitalComment on above:Performed By: #### HGBCAS ####[facility] [address] [address]Gerken KarenHGB A22.7 %Normal1.8-3.2The [facility] HospitalComment on above:Performed By: #### HGBCAS ####[facility] [address] [place], [place] [address]Gerken KarenHGB F0.0 %Normal0.0-2.0The [facility] HospitalComment on above: Performed By: #### HGBCAS ####[facility] [address] [address]Gerken KarenHGB S0.0 %Normal0.0[facility] Comment on above:Performed By: #### HGBCAS ####[facility] [address] [address]Gerken KarenInterpretation:CommentAultman Alliance Community HospitalComment on above:Result Comment: Normal hemoglobin present; no hemoglobin variant or thalassemia observed.Performed By: #### HGBCAS ####[facility] [address] [place], [place] [address]Gerken KarenVARICELLA IGG ABon 02-07-2021 Varicella Zoster SrP337 indexNormalImmune >165The [facility] on above:Result Comment: Negative <135 Equivocal 135 - 165 Positive >165 A positive result generally indicates exposure to the pathogen or administration of specific immunoglobulins, but it is not indication of active infection or stage of disease.Performed By: #### VARCEL ####[facility] [address] [place] [address] VishalFormerly West Seattle Psychiatric HospitalEP B SURFACE ANTIGEN SCREENon 78-19-0336ZNgCu ScreenNegativeNormalNegativeThe [facility] HospitalComment on above:Performed By: #### HBSANS #### [facility] [address] [place] [address] Andriy KarenHEPATITIS C ANTIBODYon 18-48-6161Xsq C Virus Ab<0.7Ibhatp6.0-0.9The [facility] HospitalComtr[facility] on above:Result Comment: Negative: < 0.8 Indeterminate: 0.8 - 0.9 Positive: > 0.9 . The CDC recommends that a positive HCV antibody result be followed up with a HCV Nucleic Acid Amplification test (078211).Performed By: #### HCV ####[facility] [address] [place] [address] KarenHIV 1 AND 2 WITH REFLEXon 02-06-2021 HIV Screen 4th Generation wRfxNon-ReactiveNormalNon ReactiveThe [facility] HospitalComment on above:Performed By: #### HIV12 #### [facility] [address] [place] [address] KarenRPR QUANTon 25-41-5627Srrkh Plasma Reagin, QuantNon-ReactiveNormal NonRea<1:1The [facility] HospitalComment on above:Performed By: #### HIV12 #### [facility] [address] [place] [address] Andriy KarenRUBELLA AB IGGon 01-84-7871Puzheqh Antibodies, IgG1.72 indexNormal Immune >0.99The [facility] HospitalComment on above:Result Comment: Non-immune <0.90 Equivocal 0.90 - 0.99 Immune >0.99Performed By: #### HIV12 #### [facility] [address] [place] [address] Andriy KarenCBC AUTO DIFFon 09-81-5393BMQS #0.0 103/ulNormal0.0-0.1The [facility] HospitalComment on above:Performed By: #### HBSANS #### [facility] [address] [place] [address] Andriy KarenBasophils/100 WBC (Bld)0.3 %Normal0.2-2.0The [facility] Comment on above:Performed By: #### HBSANS #### [facility] [address] [place] [address] Andriy KarenEO #0.2 103/ulNormal0.0-0.7The [facility] HospitalComment on above: Performed By: #### HBSANS #### [facility] [address] [place] [address] Andriy KarenEosinophils/100 WBC (Bld)1.7 %Normal0.9-7.0The [facility] Comment on above:Performed By: #### HBSANS #### [facility] [address] [place] [address] Andriy KarenErythrocyte distribution width (RBC) [Ratio]14.0 %Cizzap92.0-15.0The [facility] HospitalComment on above:Performed By: #### HBSANS #### [facility] [address] [place] [address] Andriy KarenHematocrit (Bld) [Volume fraction]34.3 %Critically low36.0-48.0The [facility] HospitalComment on above:Performed By: #### HBSANS #### [facility] [address] [place] [address] Andriy KarenHemoglobin (Bld) [Mass/Vol]11.0 g/dLCritically low12.0-16.0The [facility] HospitalComment on above:Performed By: #### HBSANS #### [facility] [address] [place] [address] Andriy KarenIG #0.02 10e3/ulNormal0.00-0.03[facility] HospitalComment on above:Performed By: #### HBSANS #### [facility] [address] [place] [address] Andriy SegalG %0.2 %Normal0.0-0.5The [facility] HospitalComment on above: Performed By: #### HBSANS #### [facility] [address] [place] [address] Andriy SteinLYMPH #3.4 103/ulNormal1.2-3.8The [facility] HospitalComment on above: Performed By: #### HBSANS #### [facility] [address] [place] [address] Andriy SteinLymphocytes/100 WBC (Bld)38.7 %Rkhfii00.5-60.0[facility] Comment on above:Performed By: #### HBSANS #### [facility] [address] [place] [address] Andriy SteinMANUAL DIFF REQNONormalLicking Memorial HospitalComment on above: Performed By: #### HBSANS #### [facility] [address] [place] [address] Andriy SteinROCHESTER GENER[facility] (RBC) [Entitic mass]27.2 mnEfiiyg22.7-34.0[facility] Comment on above:Performed By: #### HBSANS #### [facility] [address] [place] [address] Andriy SteinHC (RBC) [Mass/Vol]32.1 g/dIEzhcsi77.9-35.2[facility] Comment on above:Performed By: #### HBSANS #### [facility] [address] [place] [address] Andriy KarenV (RBC) [Entitic vol]84.9 wNAhohsv63.0-99.0[facility] Comment on above:Performed By: #### HBSANS #### [facility] [address] [place] [address] Andriy KarenMONO #0.7 103/ulNormal0.3-0.8The [facility] HospitalComment on above: Performed By: #### HBSANS #### [facility] [address] [place] [address] Andriy KarenMonocytes/100 WBC (Bld)8.3 %Normal1.7-12.0The [facility] Comment on above:Performed By: #### HBSANS #### [facility] [address] [place] [address] Andriy RodgersenNEUT #4.4 103/ulNormal1.4-6.5The [facility] HospitalComment on above: Performed By: #### HBSANS #### [facility] [address] [place] [address] Andriy KarenNeutrophils/100 WBC (Bld)50.8 %Prxuih48.0-75.0The [facility] Comment on above:Performed By: #### HBSANS #### [facility] [address] [place] [address] Andriy KarenPlatelet mean volume (Bld) [Entitic vol]9.8 fLNormal9.5-13.5The [facility] HospitalComment on above:Performed By: #### HBSANS #### [facility] [address] [place] [address] Andriy XayrkVCX921 103/voEkojlk762-037Jhy [facility] HospitalComment on above: Performed By: #### HBSANS #### [facility] [address] [place] [address] Andriy KarenRBC4.04 106/ulCritically low4.20-5.40The [facility] HospitalComment on above:Performed By: #### HBSANS #### [facility] [address] [place] [address] Andriy KarenWBC8.7 103/ulNormal4.0-11.0The [facility] HospitalComment on above: Performed By: #### HBSANS #### [facility] [address] [place] [address] Andriy KarenGLYCOHEMOGLOBIN A1Con 25-75-0934MHX RECOMMENDATIONADA THERAPEUTIC TARGET 6.0 - 7.0 ACTION SUGGESTED > 7.0[facility] HospitalComtr[facility] on above:Performed By: #### A1C ####[facility] [address] [address]Gerken KarenGlucose [Mass/Vol]111 mg/dLNoOhioHealth Shelby HospitalComtrinity health [facility] on above:Performed By: #### A1C ####[facility] [address] [address]Gerken LwleaRoB8i (Bld) [Mass fraction]5.5 %Normal<=6.0[facility] on above:Performed By: #### A1C ####[facility] [address] [address]Gerken KarenGTT 3 HR PREGon 27-49-7504Vuyjrlt [Mass/Vol]79 mg/dLNormal 74-106The [facility] HospitalComment on above:Performed By: #### HBSANS #### [facility] [address] [address] Andriy KarenGlucose [Mass/Vol]117 mg/dLNoOhioHealth Shelby HospitalComtrinity health [facility] on above:Performed By: #### HBSANS #### [facility] [address] [place] [address] Andriy KarenGlucose [Mass/Vol]93 mg/dLNoRegency Hospital Cleveland West on above:Performed By: #### HBSANS #### [facility] [address] [place] [address] Andriy KarenGlucose [Mass/Vol]46 mg/dLCritically lowThe [facility] HospitalComtr[facility] on above:Performed By: #### HBSANS #### [facility] [address] [place] [address] Andriy KarenTYPE AND SCREENon 46-29-6587ANXZ AND SCREENAntibody Screen NEGATIVE Blood Bank Notes completed by [facility] ABO Rh Typing A Rh Positive Blood Bank Notes completed by [facility] on above:Performed By: #### TNS #### [facility] [address] [id number] Andriy KarenCULTURE URINEon 20-48-3150JYIMZQV URINECulture Observations: MODERATE GROWTH OF MIXED GENITAL HUBER. NO POTENTIAL PATHOGENS SEEN.NormalThe [facility] HospitalComment on above:Performed By: #### URCX ####[facility] [address] [address]Gerken KarenUA RANDOM W/MICROSCOPICon 89-48-9670MLRQCBZFWWORVTaieshpxLJMF SEENThe [facility] Comment on above:Performed By: #### HBSANS #### [facility] [address] [address] Andriy KarenBilirubin Ql (U)NegativeNormalNEGATIVEThe [facility] HospitalComment on above:Performed By: #### HBSANS #### [facility] [address] [place] [address] Andriy KarenCASTNONE SEENNormalNONE SEENThe [facility] HospitalComment on above: Performed By: #### HBSANS #### [facility] [address] [address] Andriy KarenClarity (U)CLEARNormalCLEARLicking Memorial HospitalComment on above: Performed By: #### HBSANS #### [facility] [address] [address] Andriy KarenColor (U)YELLOWNormalYELLOWLicking Memorial HospitalComment on above: Performed By: #### HBSANS #### [facility] [address] [address] Andriy KarenCrystals LM Nom (Urine sed)NONE SEENNormalNONE SEENLicking Memorial HospitalComment on above:Performed By: #### HBSANS #### [facility] [address] [address] Andriy KarenEpithelial cells LM Ql (Urine sed)FEWAbnormalNONE SEEN /RAREThe [facility] HospitalComment on above:Performed By: #### HBSANS #### [facility] [address] [address] Andriy KarenGlucose Ql (U)NegativeNormalNEGATIVEThe [facility] HospitalComment on above:Performed By: #### HBSANS #### [facility] [address] [address] Andriy KarenHemoglobin Ql (U)NegativeNormalNEGATIVEOhio State University Wexner Medical Center HospitalComment on above:Performed By: #### HBSANS #### [facility] [address] [place] [address] Andriy KarenKetones Ql (U)TRACEAbnormalNEGATIVEOhio State University Wexner Medical Center HospitalComment on above:Performed By: #### HBSANS #### [facility] [address] [place] [address] Andriy KarenLEUKOCYTESNegativeNormalNEGATIVEOhio State University Wex[facility] Medical Center HospitalComment on above:Performed By: #### HBSANS #### [facility] [address] [place] [address] Andriy KarenMUCOUSSMALLAbnormalNONE SEENLicking Memorial HospitalComment on above: Performed By: #### JAMESANS #### [facility] [address] [place] [address] Andriy KarenNitrite Ql (U)NegativeNormalNEGATIVELicking Memorial HospitalComment on above:Performed By: #### HBSANS #### [facility] [address] [place] [address] Andriy KarenpH (U)7.0 [pH]Normal5-9[facility] HospitalComment on above: Performed By: #### HBSANS #### [facility] [address] [place] [address] Andriy ZbdejCRU6-7Kakhxl7-4Mhi [facility] HospitalComment on above:Performed By: #### HBSANS #### [facility] [address] [place] [address] Andriy KarenSPEC GRAVITY1.210Cxdvwe9.005-<=1.025The [facility] HospitalComment on above:Performed By: #### HBSANS #### [facility] [address] [place] [address] Andriy KarenUA PROTEINNegativeNormalNEGATIVE/ TRACEThe [facility] HospitalComment on above:Performed By: #### HBSANS #### [facility] [address] [address] Andriy KarenUrobilinogen Qn (U)0.2 {Juanito'U}/dLNormal0.2 - 1.0The [facility] HospitalComment on above:Performed By: #### HBSANS #### [facility] [address] [place] [address] Andriy KarenWBCNONE SEENNormalNONE SEENLicking Memorial HospitalComment on above: Performed By: #### HBSANS #### [facility] [address] [place] [address] Andriy KarenBUNon 96-13-4302Rwog nitrogen [Mass/Vol]5.0 mg/dLCritically low 7.0-17.0The [facility] HospitalComment on above:Performed By: #### TSH, LDH, BUN, URIC, ALT, AST ####[facility] [address] [address]Gerken KarenCBC AUTO DIFFon 80-88-3673MDLL #0.0 103/ulNormal0.0-0.1[facility] HospitalComment on above:Performed By: #### CBC #### [facility] [address] [place] [address] Andriy KarenBasophils/100 WBC (Bld)0.4 %Normal0.2-2.0[facility] Comment on above:Performed By: #### CBC #### [facility] [address] [place] [address] Andriy KarenEO #0.1 103/ulNormal0.0-0.7[facility] on above: Performed By: #### CBC #### [facility] [address] [place] [address] Andriy KarenEosinophils/100 WBC (Bld)1.1 %Normal0.9-7.0[facility] Comment on above:Performed By: #### CBC #### [facility] [address] [place] [address] Andriy KarenErythrocyte distribution width (RBC) [Ratio]14.6 %Audieo10.0-15.0The [facility] HospitalComment on above:Performed By: #### CBC #### [facility] [address] [place] [address] Andriy KarenHematocrit (Bld) [Volume fraction]34.7 %Critically low36.0-48.0The [facility] HospitalComment on above:Performed By: #### CBC #### [facility] [address] [place] [address] Andriy KarenHemoglobin (Bld) [Mass/Vol]11.1 g/dLCritically low12.0-16.0The [facility] HospitalComment on above:Performed By: #### CBC #### [facility] [address] [place] [address] Andriy KarenIG #0.04 10e3/ulCritically high0.00-0.03The [facility] HospitalComment on above:Performed By: #### CBC #### [facility] [address] [place] [address] Andriy KarenIG %0.5 %Normal0.0-0.5The [facility] HospitalComment on above: Performed By: #### CBC #### [facility] [address] [place] [address] Andriy KarenLYMPH #2.1 103/ulNormal1.2-3.8The [facility] HospitalComment on above: Performed By: #### CBC #### [facility] [address] [place] [address] Andriy KarenLymphocytes/100 WBC (Bld)25.5 %Luivtf49.5-60.0The [facility] Comment on above:Performed By: #### CBC #### [facility] [address] [place] [address] Andriy KarenMANUAL DIFF REQNONormalThe [facility] HospitalComment on above: Performed By: #### CBC #### [facility] [address] [place] [address] Andriy KarenMCH (RBC) [Entitic mass]27.2 unXsvcji04.7-34.0The [facility] Comment on above:Performed By: #### CBC #### [facility] [address] [place] [address] Andriy SteinSEAVIEW [facility] (RBC) [Mass/Vol]32.0 g/zOXspwvm38.9-35.2[facility] Comment on above:Performed By: #### CBC #### [facility] [address] [place] [address] Andriy SteinSH[facility] (RBC) [Entitic vol]85.0 eQDlnoxl67.0-99.0[facility] Comment on above:Performed By: #### CBC #### [facility] [address] [place] [address] Andriy SteinMONO #0.6 103/ulNormal0.3-0.8The [facility] HospitalComment on above: Performed By: #### CBC #### [facility] [address] [place] [address] Andriy KarenMonocytes/100 WBC (Bld)7.1 %Normal1.7-12.0[facility] Comment on above:Performed By: #### CBC #### [facility] [address] [place] [address] Andriy RodgersenNEUT #5.3 103/ulNormal1.4-6.5The [facility] HospitalComment on above: Performed By: #### CBC #### [facility] [address] [place] [address] Andriy KarenNeutrophils/100 WBC (Bld)65.4 %Iqllmy19.0-75.0The [facility] Comment on above:Performed By: #### CBC #### [facility] [address] [place] [address] Andriy KarenPlatelet mean volume (Bld) [Entitic vol]9.5 fLNormal9.5-13.5The [facility] HospitalComment on above:Performed By: #### CBC #### [facility] [address] [place] [address] Andriy UytagICC971 103/saXuvhlk338-357Tnm [facility] HospitalComment on above: Performed By: #### CBC #### [facility] [address] [place] [address] Andriy KarenRBC4.08 106/ulCritically low4.20-5.40The [facility] HospitalComment on above:Performed By: #### CBC #### [facility] [address] [place] [address] Andriy KarenWBC8.1 103/ulNormal4.0-11.0The [facility] HospitalComment on above: Performed By: #### CBC #### [facility] [address] [place] [address] Andriy KarenCREATININE CLEARon 04-71-7760JBED EVMHVUKWC75.46 ml/minCritically low75.00-115.00The [facility] HospitalComment on above:Performed By: #### HIV12 #### [facility] [address] [place] [address] Andriy KarenCREA, 24 HR UR579.12 mg/24 hrCritically vke726.00-1,800.00The [facility] HospitalComment on above:Performed By: #### HIV12 #### [facility] [address] [place] [address] Andriy KarenCreatinine [Mass/Vol]0.53 mg/dLNormal0.52-1.04The [facility] Comment on above:Performed By: #### HIV12 #### [facility] [address] [place] [address] Andriy KarenURINE CREAT30.48 mg/hUJjxrcu97.00-300.00The [facility] HospitalComment on above:Performed By: #### HIV12 #### [facility] [address] [place] [address] Andriy KarenGLUCOSE - 1HRon 29-82-8591Thydoud [Mass/Vol]150 mg/dLCritically high 74-106The [facility] HospitalComment on above:Performed By: #### GLU1HR ####[facility] [address] [place], [place] [address]Prrgxt KarenLDHon 18-32-1615JKT707 U/XJkytzi849-970Djv [facility] on above:Performed By: #### TSH, LDH, BUN, URIC, ALT, AST ####[facility] [address] [address]Gerken KarenPROTEIN 24HR URINEon 01-26-2021T PROT, 24 HR UR32.3 mg/24 hrCritically low42.0-225.0[facility] on above:Performed By: #### OCDX12R ####[facility] [address] KarenUR PROT 1.7 mg/dLNormal<=12.0[facility] on above:Performed By: #### [id number] ####[facility] [address] KarenUR TOT [id number] ml/24 HRNormalThe [facility] HospitalComtrinity health [facility] on above:Performed By: #### [id number] ####[facility] [address] VishalenPerformed By: #### HIV12 #### [facility] [address] [place], [place] [address] Livonialogan RodgersTorrance State Hospital 85-43-2276DDB [Catalytic activity/Vol]17 U/ARxgxns82-85Nwe [facility] on above:Performed By: #### TSH, LDH, BUN, URIC, ALT, AST ####[facility] [address] SeverinoTon 70-62-9116PRZ [Catalytic activity/Vol]16 U/LNormal9-52 The [facility] on above:Performed By: #### TSH, LDH, BUN, URIC, ALT, AST ####[facility] Xezvtosoui[address] VishalenTSHon 94-50-7889OHW7.220 uIU/mLCritically low0.470-4.680The [facility] HospitalComment on above:Performed By: #### TSH, LDH, BUN, URIC, ALT, AST ####[facility] Fwglumyful[address] VishalenTSH RANGESEE BELOWNoOhioHealth Shelby HospitalComment on above: Result Comment: <0.34 UIU/ml HYPERTHYROID 0.34-5.60 UIU/ml EUTHYROID >5.60 UIU/ml HYPOTHYROIDPerformed By: #### TSH, LDH, BUN, URIC, ALT, AST ####[facility] Ishthlctop7567 [address] KarenURIC ACID SERUMon 65-81-3957Czwcl [Mass/Vol]3.6 mg/dLNormal2.5-6.2The [facility] HospitalComment on above:Performed By: #### TSH, LDH, BUN, URIC, ALT, AST ####[facility] T[address] [place] [address] KarenUS PREG TVon 65-38-1297YG PREG TVEXAMINATION: US PREG TV HISTORY: Secondary [...] Electronically authenticated by: ANGELO BLANKENSHIP Date: 2021-01-24 10:12NoMer[facility] HospitalABO AND RH TYPEon 56-87-1774RHJ and Rh group Nom (Bld)ABO Rh Typing A Rh PositiveNoOhioHealth Shelby HospitalComment on above:Performed By: #### ABORH ####[facility] Hczzdinfep[address] [place] [address] KarenPREG QUANT HCGon 59-49-9637MFY LDTMI41302 mIU/mLNAvita Health System Ontario HospitalComment on above:Result Comment: Previously reported as: 3 On 01/19/2021 11:21 By MR3Eepeytprv By: #### HIV12 #### [facility] [address] [address] Andriy RojasCChester RANGESMercy Health Urbana HospitalComment on above:Result Comment: 5-50 0-1 WEEK 40-300 1-2 WEEKS 100-1,000 2-3 WEEKS 500-6,000 3-4 WEEKS 5,000-200,000 1-2 MONTHS 10,000-100,000 2-3 MONTHS 3,000-50,000 2ND TRIMESTER 1,000-50,000 3RD TRIMESTERPerformed By: #### HIV12 #### [facility] [address] [address] Andriy Setin Vital Signs Date TimeVital SignValuePerforming KyxixkdyjKdtnjqhz72-24-6212 11:06-0400Body mass index (BMI) [Ratio]34.47 kg/u7Sawah Jenny DO Work Phone: [facility] HospitalVvubowwyde55-98-4190 11:06-0400Body bjoapa93.08 kgCorey Jenny DO Work Phone: [phone]-[facility] HospitalMixzawzrlj10-74-8046 11:06-0400Diastolic blood dzgibfqp23 mm[Hg]Scooby Jenny DO Work Phone: [phone]-[facility] HospitalFwqgvbcnuz19-26-6208 11:06-0400Systolic blood mm[Hg]Scooby Jenny DO Work Phone: [facility] HospitalYmmuvvlyxb46-01-5728 13:35-0400Body mass index (BMI) [Ratio]33.77 kg/m2Deborah RUBIN Work Phone: [phone] HospitalRsyiryuhzy76-81-7415 13:35-0400Body oxhbut90.25 kgDeborah RUBIN Work Phone: [facility] HospitalDqbkiiezki78-31-2969 13:35-0400Diastolic blood nwhxealh86 mm[Hg]Deborah Aquiles PA Work Phone: [facility] HospitalZmmutzrkmv24-01-9925 13:35-0400Systolic blood mvsapwux745 mm[Hg]Deborah Kwan PA Work Phone: [phone] [place], [place] [address]Uekgyiflrd73-22-3222 11:04-0400Body mass index (BMI) [Ratio]33.77 kg/r0FuqlwwspJem Ambrosio ENGINEERING PROGRAM ANALYST Work Phone: [phone] [place], [place] [address]Kavhtzufem67-07-4823 11:04-0400Body odqeyb37.25 kgJem Bolivarerly ENGINEERING PROGRAM ANALYST Work Phone: [phone] [place], [place] [address]Jrfwaetdea11-87-0309 11:04-0400Diastolic blood lormpxli74 mm[Hg]Jem Bolivarerly ENGINEERING PROGRAM ANALYST Work Phone: [phone] [place], [place] [address]Sogtkcqxfq15-30-0346 11:04-0400Systolic blood tiqcdjzo057 mm[Hg]Jem Bolivarerly ENGINEERING PROGRAM ANALYST Work Phone: [phone] [place], [place] [address]Kqtfwklqod88-78-9025 13:25-0400Body mass index (BMI) [Ratio]33.44 kg/m2Deborah Aquiles PA Work Phone: [phone] [place], [place] [address]Wgbmkemzru23-75-7292 13:25-0400Body dqeixd02.36 kgDeborah Aquiles PA Work Phone: [phone] [place], [place] [address]Frxxcyykku55-92-3557 13:25-0400Diastolic blood xdaherzl11 mm[Hg]Deborah Kwan PA Work Phone: [phone] [place], [place] [address]Mgvvjuwiil60-26-9973 13:25-0400Systolic blood qlgcoubv910 mm[Hg]Deborah Kwan PA Work Phone: [phone] [place], [place] [address]Ittyvtdccs76-41-2610 15:09-0400Body mass index (BMI) [Ratio]33.3 kg/m2Deborah Kwan PA Work Phone: [phone] [place], [place] [address]Gahiujkvie34-60-8343 15:09-0400Body fbtjxy05 kg Deborah Kwan PA Work Phone: [phone] [place], [place] [address]Fljtbaibdt67-98-2246 15:09-0400Diastolic blood fiqzbxez46 mm[Hg]Deborah Kwan PA Work Phone: [facility] HospitalSrhixvokwj73-03-1892 15:09-0400Systolic blood wkczupgb109 mm[Hg]Deborah RUBIN Work Phone: [phone]-[facility] HospitalKlempldxld98-93-2646 15:03-0400Body mass index (BMI) [Ratio]33 kg/y1Obgof Jenny DO Work Phone: [facility] HospitalZrcezhaupm64-85-9517 15:03-0400Body xmntud55.2 kg Scooby Jenny DO Work Phone: [phone] [place], [place] [address]Wuiajxzprh38-66-1112 15:03-0400Diastolic blood fqrpiefg84 mm[Hg]Scooby Jenny DO Work Phone: [phone] [place], [place] [address]Qtwogtkpvv76-81-0962 15:03-0400Systolic blood szyfaevv063 mm[Hg]Scooby Jenny DO Work Phone: [phone] [place], [place] [address]Phqmsiexka30-37-8229 13:37-0400Body mass index (BMI) [Ratio]32.79 kg/m2Deborah Aquiles RUBIN Work Phone: [phone] [place], [place] [address]Jndnrdguvh14-12-6622 13:37-0400Body iepmsb72.64 kgDeborah Aquiles RUBIN Work Phone: [phone] [place], [place] [address]Sqhskfwoqg08-22-4716 13:37-0400Diastolic blood priavitn16 mm[Hg]Deborah RUBIN Work Phone: [phone] [place], [place] [address]Gcjctzwmnr22-33-9397 13:37-0400Systolic blood mm[Hg]Deborah RUBIN Work Phone: [phone] [place], [place] [address]Jwzyjckruz03-74-0037 10:26-0400Body ultglf275.6 cmCorey Jenny DO Work Phone: [phone] [place], [place] [address]Pvyhuewsjb73-46-2218 10:25-0400Body mass index (BMI) [Ratio]32.27 kg/c8Wokar Jenny DO Work Phone: [phone] [place], [place] [address]Cenuptjzbe53-22-2435 10:25-0400Body ltiqfg22.28 kgCorey Jenny DO Work Phone: [phone] [place], [place] [address]Vlcqmtedfi63-58-1848 10:25-0400Diastolic blood xpzeavww59 mm[Hg]Scooby Jenny DO Work Phone: [phone] [place], [place] [address]Ytooworvyg50-36-9118 10:25-0400Systolic blood lpyjhosz174 mm[Hg]Scooby Jenny DO Work Phone: [phone] [place], [place] [address]Hytugckbhn07-75-5353 15:59-0400Body mass index (BMI) [Ratio]34.57 kg/q7KlfjepOma Davis RN Work Phone: [phone] [place], [place] 0648906-02-2025 15:59-0400Body jqfufa84.73 kgOma Davis RN Work Phone: [phone] [place], [place] 0648905-22-2025 10:57-0400Body qithdt24.09 kgCorey Jenny DO Work Phone: [phone] [place], [place] [address]Lspjgeiohy31-88-5031 10:57-0400Diastolic blood kwgztjug57 mm[Hg]Scooby Jenny DO Work Phone: [phone] [place], [place] [address]Bwozlqlcxv91-43-9052 10:57-0400Systolic blood bhuhkqlq143 mm[Hg]Scooby Jenny DO Work Phone: [phone] [place], [place] [address]Xychbxjzjz36-86-9633 14:37-0400Body dxxquf87.84 kg[facility]04-24-2025 14:37-0400Diastolic blood ascvmwxz11 mm[Hg][facility]04-24-2025 14:37-0400Systolic blood gntiejun392 mm[Hg][facility]01-15-2022 13:35-0500Body hgxmhtnuwpu45.4 [degF] Renita Canseco Other [employer] Other 01-15-2022 13:35-8974TlV2% (BldA) [Mass fraction]98 % Renita Canseco Other [employer] Other 08-28-2021 04:06-0400Body .0088 kgANDREA OTOOLE The [facility] HospitalComment on above:Performed By: #### HIV12 #### [facility] [address] [address] Andriy Stein Encounters Encounter DateEncounter TypeCare ProviderFacilityStart: 04-14-2025 End: 53-98-8424Lbyukg flowsheetCorey Jenny DO Work Phone: [facility] [place] [facility]YNStart: 04-14-2025 End: 79-77-2876Gvdfnq flowsheetCorey Jenny DO Work Phone: [facility] [place] [facility]BGYNStart: 04-14-2025 End: 52-24-3205Ksydfx outpatient visit 15 minutesCorey Jenny DO Work Phone: [facility] [place] OBGYNComment on above:Third trimester ([facility]); 37 weeks gestation of ([facility])Start: 04-14-2025 End: 84-51-5130czxqedmwyiQXXUA FAZIONot AvailableStart: 04-07-2025 End: 84-15-6167Qezrme flowsRocky RUBIN Work Phone: [facility]BGYNStart: 04-07-2025 End: 82-64-5681Yozaxe Magdy RUBIN Work Phone: [facility] [facility]BGYNStart: 04-07-2025 End: 34-20-6047Dnrzvp outpatient visit 15 minutesAmy Aquiles RUBIN Work Phone: [facility] [place] OBGYNComment on above:Third trimester ([facility]); 36 weeks gestation of ([facility])Start: 04-07-2025 End: 73-89-5829cexjzbiuihVGD [place] AvailableStart: 03-31-2025 End: 78-53-5074Rhqjjrcnf Result EncounterJem Ambrosio NP Work Phone: [facility] External Department UnsolicitedStart: 03-31-2025 End: 63-61-4697Xioohzyxo Result EncounterJem Ambrosio ENGINEERING PROGRAM ANALYST Work Phone: [facility] External Department UnsolicitedStart: 03-24-2025 End: 99-96-5552Ldvqhp flowsheetJem Ambrosio ENGINEERING PROGRAM ANALYST Work Phone: [facility] [place] [facility]BGYNStart: 03-24-2025 End: 19-96-3874Vnycdk flowsLaura Ambrosio ENGINEERING PROGRAM ANALYST Work Phone: [facility] [place] [facility]BGYNStart: 03-24-2025 End: 32-82-9408Ddkhzo outpatient visit 15 minutesJem Ambrosio ENGINEERING PROGRAM ANALYST Work Phone: NO [place] OBGYNComment on above:34 weeks gestation of ([facility]); Third trimester ([facility]); Gestational diabetes mellitus (GDM) in third trimester, gestational diabetes method of control unspecified ([facility])Start: 03-24-2025 End: 55-77-9739esaozesgfqFZBHRFPM EBERLYNot AvailableStart: 03-20-2025 End: 97-81-0698Oqunhuibq [facility] LDMaternal- Medicine at ACMC Healthcare Systemtart: 03-10-2025 End: 98-21-9839Vxtayb Magdy RUBIN Work Phone: [facility] [place] [facility]BGYNStart: 03-10-2025 End: 81-22-5108Druhjt Magdy RUBIN Work Phone: [facility] [facility]BGYNStart: 03-10-2025 End: 81-25-4796Anzaam outpatient visit 15 minutesDeborah RUBIN Work Phone: [facility] OBGYNComment on above:32 weeks gestation of ([facility]); Third trimester ([facility])Start: 03-10-2025 End: 70-66-8049mmodhmbehsLPV RAMEYNot AvailableStart: 02-25-2025 End: 61-17-0641bukbkjieixOMB RAMEYNot AvailableStart: 02-16-2025 End: 08-63-3743brfvsadsnuPXF RAMEYNot AvailableStart: 02-16-2025 End: 60-60-5152Vlpibx outpatient visit 15 minutesDeborah RUBIN Work Phone: [facility] [place] OBGYNComment on above:Size of fetus inconsistent with dates in second trimester ([facility]) (Primary Dx); 28 weeks gestation of ([facility]); Third trimester ([facility])Start: 02-16-2025 End: 91-15-2250Rkwkai Magdy RUBIN Work Phone: [facility] [place] [facility]BGYNStart: 02-16-2025 End: 69-00-9907Foseuw Magdy RUBIN Work Phone: [facility] [place] [facility]BGYNStart: 02-13-2025 End: 52-40-6648Wiycyvcdr Result EncounterCorey Jenny DO Work Phone: [facility] External Department UnsolicitedStart: 02-13-2025 End: 58-29-1705Hcaxukxrg Result EncounterCorey Jenny DO Work Phone: [facility] External Department UnsolicitedStart: 02-02-2025 End: 03-16-5985Owrogf outpatient visit 15 minutesCorey Jenny DO Work Phone: [facility] [place] OBGYNComment on above:Second trimester ([facility]); 26 weeks gestation of ([facility]); Diabetes mellitus screeningStart: 02-02-2025 End: 79-04-6111nwlnxiuhovTGGIR FAZIONot AvailableStart: 02-02-2025 End: 04-50-4418Hbwetp flowsheetCorey Jenny DO Work Phone: [facility] [place] [facility]BGYNStart: 02-02-2025 End: 60-78-1983Danzpd flowsheetCorey Jenny DO Work Phone: [facility]BGYNStart: 01-26-2025 End: 77-00-9373wslhymnorqPYDDC FAZIONot AvailableStart: 01-01-2025 End: 80-61-2968Tioxfw flowsRocky RUBIN Work Phone: [facility] OBStart: 01-01-2025 End: 92-62-1638Mdnful flowsheetDeborah RUBIN Work Phone: [facility] B[facility] OBStart: 01-01-2025 End: 44-92-9386Rupengff flow sheetDeborah RUBIN Work Phone: [facility] OBComment on above:Second trimester ([facility]); 22 weeks gestation of ([facility])Start: 01-01-2025 End: 84-59-0370qhhdqlbdazTYM [place] AvailableStart: 12-19-2024 End: 84-29-3437Tgxkzbkma Result EncounterCorey Jenny DO Work Phone: [facility] External Department UnsolicitedStart: 12-19-2024 End: 76-85-6800Oxiesmsjh Result EncounterCorey Jenny DO Work Phone: [facility] External Department UnsolicitedStart: 12-04-2024 End: 81-25-8277Njmkbl flowsheetCorey Jenny DO Work Phone: [facility] BCP OBStart: 12-04-2024 End: 10-83-4269Ikpmfr flowsheetCorey Jenny DO Work Phone: [facility] B[facility] OBStart: 12-04-2024 End: 32-67-9956Upxybbvsh Result EncounterCorey Jenny DO Work Phone: [facility] External Department UnsolicitedStart: 12-04-2024 End: 44-49-2910Opitadtk Result EncounterDeborah RUBIN Work Phone: noMS External Department UnsolicitedStart: 12-04-2024 End: 36-45-7097Pegonctdp encounterDeyarelis SATPLES Work Phone: [phone]-Pzcjy [facility] at [facility] Start: 12-04-2024 End: 79-35-9547pjpctuspnwHTSHM FAZIONot AvailableStart: 12-04-2024 End: 23-83-2400Izmwdrq encounter procedureCorey Jenny DO Work Phone: noms HealthcareStart: 12-04-2024 End: 94-28-2309Posemqwa flow sheetCorey Jenny DO Work Phone: noms BCP OBComment on above:Second trimester ([facility]); 18 weeks gestation of ([facility]); Well woman exam with routine gynecological exam; Screening, , for anatomic survey ([facility]); Screen for STD (sexually transmitted disease); Need for maternal serum alpha-protein (MSAFP) screening ([facility])Start: 11-24-2024 End: 68-75-5535jlhwtkhtwaJtaiug M Frey RN Work Phone: [phone]-Jymru [facility] at [facility] Comment on above:Gestational diabetes mellitus (GDM) in second trimester, gestational diabetes method of control unspecifiedStart: 11-13-2024 End: 81-41-2551Vnnfkmxg flow sheetCorey Jenny DO Work Phone: noms BCP OBComment on above:15 weeks gestation of ; Second trimester ; Diet controlled gestational diabetes mellitus (GDM), antepartum; Gestational diabetes mellitus (GDM), antepartum, gestational diabetes method of control unspecified; Elevated glucose tolerance testStart: 11-13-2024 End: 92-88-2976cmoswvmputWRWIR FAZIONot AvailableStart: 11-11-2024 End: 48-54-7259Ytkqbiqwd Result EncounterCorey Jenny DO Work Phone: noms External Department UnsolicitedStart: 11-11-2024 End: 07-98-8480Anamnyyyb Result EncounterCorey Jenny DO Work Phone: noms External Department UnsolicitedStart: 10-16-2024 End: 76-39-2298Zwfcof outpatient visit 5 minutesNoms Bcp Ob Jenny NurseNOMS BCP OBComment on above:GA: 41e1kSpwot: 10-16-2024 End: 28-43-2199tewtbpykkbBRNON FAZIONot AvailableStart: 12-20-2023 End: 19-18-7503bnbfsbxrnjAK PCP NO PCPUniversity Hospitals Geneva Medical Center HospitalStart: 12-19-2023 End: 85-32-7726Rzfmetcqt department patient visitAMBER [facility] Hospitaltart: 12-19-2023 End: 49-35-4108Xqffnpwhb department patient visitNO PCP NO PCPUniversity Hospitals Geneva Medical Center HospitalStart: 03-01-2022 End: 58-43-0059fmdsepbrqfIxzbag Paco MastersonFacility:[facility] Systemtart: 11-08-2021 End: 87-03-6624qeimweclxbRG SCOOBY FAZIOFacility:T0Wrbdn: 08-01-2021 End: 56-32-2178irmgfaytyaXR SCOOBY FAZIOFacility:B5Tftdt: 07-30-2021 End: 60-53-1526Szzximokbj and management of inpatientDR SCOOBY FAZIOFacility:H1 Start: 07-13-2021 End: 15-67-1626paxeseeosvNF SCOOBY FAZIOFacility:Y2Molmm: 07-11-2021 End: 15-74-8689jfreymxpujJS NADIA Blankcility:S2Kbmns: 07-09-2021 End: 75-32-3148rrbdsdukveQukty Ajith Other [facility] [employer] Other Start: 27-42-5542Mgezyx outpatient visit 15 minutes Renita GintyFPG Urgent Care ClydeStart: 07-06-2021 End: 12-01-9277ncddubavrcGF SCOOBY FAZIOFacility:R2Mdqnp: 06-20-2021 End: 63-26-7190xhgdmdfnogIP NADIA Blankcility:A0Fvnzl: 06-08-2021 End: 36-46-2428zjggsarodnJD SCOOBY FAZIOFacility:N0Loebr: 05-04-2021 End: 26-54-8544qrmeaidceeYVTAOQ MOOREFacility:R1Znaxk: 04-30-2021 End: 24-87-5337xxhgruisfcSRSKYU MOOREFacility:C3Xpowm: 04-28-2021 End: 31-39-1298pojqfsgobnIQBBNU MOOREFacility:G4Zsmfh: 04-20-2021 End: 02-71-8785hqhzxsjycyHBPNAD MOOREFacility:F2Uyffz: 04-07-2021 End: 20-63-8829vvfgrggpbvPUEDZ HIGHLANDERFacility:Q5Nbokc: 03-21-2021 End: 69-21-8494zuvrucilfePUZLBV MOOREFacility:H3Tqanr: 02-17-2021 End: 16-82-3322zgbkegaudpERQAEH MOOREFacility:V2Vrnpv: 02-05-2021 End: 21-10-5537didgtupghhTFFWLT MOOREFacility:G6Dpfdp: 01-28-2021 End: 93-11-6956giriaguyewGMQQSE MOOREFacility:U3Gfeat: 01-26-2021 End: 57-56-5031jjlbixwyheFMDRWN MOOREFacility:D4Fsetv: 01-24-2021 End: 43-08-6009iamscclbezONMVAQ MOOREFacility:J5Uzmzh: 01-19-2021 End: 59-94-8325dfkqnhlbenTMWYGE MOOREFacility:H1 Procedures DateProcedureProcedure DetailPerforming ClinicianStart: 22-03-0874Brwab dip stick/tablet rgnt non-auto w/o micrscpCorey Jenny DO Work Phone: Start: 26-00-1754Pmdml dip stick/tablet rgnt non-auto w/o micrscpAmy Aquiles RUBIN Work Phone: Start: 46-24-8470HE OB BPP W NON-STRESSKristina Hebert ENGINEERING PROGRAM ANALYST Work Phone: Start: 09-91-7186Drsfj dip stick/tablet rgnt non-auto w/o micrscpKristina Hebert ENGINEERING PROGRAM ANALYST Work Phone: Start: 65-19-9749Geino dip stick/tablet rgnt non-auto w/o micrscpAmy Aquiles PA Work Phone: Start: 41-09-6146BYI CBC WITH AUTO DIFFCorey Jenny DO Work Phone: Start: 97-11-0131Wudeq dip stick/tablet rgnt non-auto w/o micrscpCorey Jenny DO Work Phone: [phone]: 46-88-2096Zxigi dip stick/tablet rgnt non-auto w/o micrscpAmy Aquiles RUBIN Work Phone: Start: 67-54-3312YP OB ANATOMYCorey Jenny DO Work Phone: [phone]: 26-36-2788XG OB CERVICAL LENGTHCorey Jenny DO Work Phone: Start: 35-52-1748WWIEZAUHI VAGINITIS (HTRX)Deborah RUBIN Work Phone: Start: 49-66-3937Sjxbd dip stick/tablet rgnt non-auto w/o micrscpCorey Jenny DO Work Phone: Start: 84-24-0737YTH,APTIMA HPV,AGE GDLNCorey Jenny DO Work Phone: Start: 04-62-1244Ljrkxazfaqz observation [Identifier] in Cervix by Cyto stainCorey Jenny DO Work Phone: Start: 14-30-1640Jrqqheu quantitative blood xcpt reagent stripCoshalom Schroeder PA-C Work Phone: Start: 66-40-6626Ovnxi dip stick/tablet rgnt non-auto w/o micrscpCorey Jenny DO Work Phone: Start: 82-29-4826AGM TESTCorey Jenny DO Work Phone: Start: 10-16-2024 End: 81-35-7775Ncopc dip stick/tablet rgnt non-auto w/o micrscpCorey Jenny DO Work Phone: Start: 46-78-2825Cfskqujr of Products of Conception, External ApproachANDARIADNA GORE SPRINGSStart: 16-51-2816Rohbjqfn of Amniotic Fluid, Therapeutic from Products of Conception, Via Natural or Artificial OpeningANDPaco [place]ORE SPRINGSStart: 53-09-3529Lrggbrvymsji of Other Hormone into Peripheral Vein, Percutaneous ApproachANDARIADNA GORE SPRINGSStart: 44-49-2217Hhlsss Perineum Skin, External ApproachRENAY OTOOLE Plan of Treatment DateCare ActivityDetailAuthorStart: 72-95-5175EDzL,Tdap and Td Vaccines (3 - Td or Tdap)DTaP,Tdap and Td Vaccines (3 - Td or Tdap)[facility] SystemStart: 00-93-8050Vriradeac for malignant neoplasm of cervixNOSainte Genevieve County Memorial HospitalStart: 77-72-0326Cctkc BMI ScreeningAdult BMI ScreeningCone Health Wesley Long Hospitaltart: 06-15-2025 End: 10-41-7521wispnfzsdd64/22/2025 9:50 AM EST Visit SHRELY MARES [address] [place], [id number] Scooby Alvarado DO [address] [place], [place] [id number] NOMMyra MENCHACANStart: 04-21-2025 End: 94-43-6953Mmpbvqd encounter loghbvycm35/28/2025 2:20 PM EDT Routine NOMMyra MARES [address] [place], [id number] Deborah Kwan PA [address] [place] [address] NOMMyra TURKtart: 04-14-2025 End: 44-21-4158Mdjzpiv encounter procedureNOMS [place] MENCHACANComment on above: ArrivedStart: 04-07-2025 End: 98-15-9910HLAHLYT, GROUP B STREP WITH SUSCEPTIBLITYCULTURE, GROUP B STREP WITH SUSCEPTIBLITY Lab Routine Third trimester ([facility]) Expected: 04/07/2025, Expires: 04/07/2026[facility] Work Phone: comment on above:Expected: 04/07/2025, Expires: 04/07/2026Start: 04-07-2025 End: 24-29-9959Hlhlcti encounter procedureNOMS [facility]ago OBGYNComment on above: ArrivedStart: 03-24-2025 End: 20-70-2337WC biophysical profile w non stress testUS biophysical profile w non stress test Imaging Routine Third trimester ([facility]) Expected: 03/24/2025 (Approximate), Expires: 09/21/2025[facility] Work Phone: comment on above:Expected: 03/24/2025 (Approximate), Expires: 09/21/2025Start: 03-24-2025 End: 51-15-2312Ikuzjdh encounter procedureNOMS Dago OBGYNComment on above: ArrivedStart: 03-10-2025 End: 61-32-9170Dogcrna encounter /16/2025 1:20 PM EDT Routine [facility] [address] [place], [id number] Deborah Kwan PA [address] [place] [address] ArrivedNOMS Dago OBGYNComment on above:ArrivedStart: 03-03-2025 End: 03-38-6452Kclmrkn encounter ydhgguquf94/09/2025 2:40 PM EDT Routine [facility] [place] [facility] [address] [place], [id number] Scooby Alvarado DO [address] [place] [address] [facility]BGYNStart: 02-25-2025 End: 41-40-5537Xlbsxmwbxfsi / ancillary services lhfinnboyn54/03/2025 3:00 PM EDT Ancillary Procedure [facility] [address] [place] [address] [facility] [place] [facility]BGYNStart: 55-21-2605NFOZN-19 Vaccine ( season)COVID-19 Vaccine ( season)[facility] Start: 22-44-2025Fqdzngcat vaccinationProGood Samaritan Hospitalca Health SystemStart: 02-16-2025 End: 90-66-1218Uclusxn encounter efauogpgh07/25/2025 2:30 PM EDT Routine [facility] [address] [place], [id number] Deborah Kwan PA [address] [place], [place] [id number] [facility]BGYNStart: 02-16-2025 End: 52-83-5561AX for pregnancyUS OB follow up transabdominal approach Imaging Routine Size of fetus inconsistent with dates in second trimester ([facility]) Expected: 02/16/2025, Expires: 06/18/2025[facility] Work Phone: comment on above:Expected: 02/16/2025, Expires: 06/18/2025Start: 02-02-2025 End: 42-75-9882Cdxahpy encounter procedureNOMS BCP OBComment on above:Arrived Start: 02-02-2025 End: 33-34-9301KYG panel - Blood by Automated countCBC Lab Routine Diabetes mellitus screening Expected: 02/02/2025 (Approximate), Expires: 02/02/2026[facility] Work Phone: comment on above:Expected: 02/02/2025 (Approximate), Expires: 02/02/2026Start: 01-20-2025 End: 81-05-1353Gwpimykbfcuh / ancillary services hpfogqdinz60/29/2025 3:00 PM EDT Ancillary Procedure [facility] [address] [place] [address] [facility] BCP OBStart: 01-01-2025 End: 51-83-5317Njgsgir encounter procedureNOAZ BCP OBComment on above:Arrived Start: 74-81-2503Mpvjzkb ScreeningTobacco ScreeningProMercy Health Allen Hospital SystemStart: 59-84-8469Agwme BMI ScreeningAdult BMI ScreeningCleveland Clinic Fairview [facility] SystemStart: 12-04-2024 End: 43-13-0940Xcbdm fetoprotein, maternalAlpha fetoprotein, maternal Lab Routine Need for maternal serum alpha-protein (MSAFP) screening ([facility]) Expected: 12/04/2024 (Approximate), Expires: 01/03/2025[facility] HealthcareComment [facility] above:Expected: 12/04/2024 (Approximate), Expires: 01/03/2025Start: 12-04-2024 End: 37-98-5609LC for pregnancyUS OB 14+ weeks anatomy scan Imaging Routine Screening, , for anatomic survey ([facility]) Expected: 12/04/2024, Expires: 03/06/2025[facility] HealthcareComment on above:Expected: 12/04/2024, Expires: 03/06/2025Start: 12-04-2024 End: 93-54-4493Qgyxegd encounter zpoglybnb70/12/2025 9:40 AM EDT Routine [facility] [address] [facility] [place] [id number] Scooby Alvarado, DO [address] [place], [place] [address] [place] [address] N[facility] BCP OBStart: 11-13-2024 End: 50-45-4610Ohmktcc encounter zlelzxsex39/22/2025 10:40 AM EDT Routine [facility] OB [address] [facility] [place] [address] Scooby Alvarado, DO [address] [place] [address] N[facility]S BCP OBStart: 10-16-2024 End: 62-02-1472HOT/RhABO/Rh Lab Routine Missed menses , unspecified gestational age Expected: 10/16/2024 (Approximate), Expires: 10/16/2025[facility] HealthcareComment on above:Expected: 10/16/2024 (Approximate), Expires: 10/16/2025Start: 10-16-2024 End: 83-94-0892Akqec type and Indirect antibody screen panel - BloodType and screen Lab Routine Missed menses , unspecified gestational age Expected: 10/16/2024 (Approximate), Expires: 10/16/2025[facility] Healthcare Work Phone: comment on above:Expected: 10/16/2024 (Approximate), Expires: 10/16/2025Start: 10-16-2024 End: 34-88-0778Cxots of abuse panel - Urine by Screen methodRapid drug screen, urine Lab Routine , unspecified gestational age Encounter for supervision of normal first in first trimester Expected: 10/16/2024 (Approximate), Expires: 10/16/2025[facility] HealthcareComment on above:Expected: 10/16/2024 (Approximate), Expires: 10/16/2025Start: 37-21-9614HVETZ-19 Vaccine ( season)COVID-19 Vaccine ()[facility] Start: 62-88-5077Iavhwokhc for malignant neoplasm of cervixNOMS HealthcareStart: 97-57-0990Unfajgmxx for malignant neoplasm of cervixPap SmearRipley County Memorial Hospital Start: 41-46-2937Mlmma BMI Follow Up PlanAdult BMI Follow Up PlanCone Health Wesley Long Hospitaltart: 90-54-0268Edsmyzdrrk ScreeningDepression ScreeningUniversity Hospitals Parma Medical CenterBacteria identified in Urine by CultureUrine culture Microbiology Routine Missed menses Ordered: 10/16/2024[facility] HealthcareComment on above: Ordered: 10/16/2024BC W Auto Differential panel - BloodCBC and differential Lab Routine Missed menses , unspecified gestational age Ordered: 10/16[facility] HealthcareComment on above:Ordered: 10/16/2024HLAMYDIA TRACHOMATIS (GENITO/STI)CHLAMYDIA TRACHOMATIS (GENITO/STI) Lab Routine Screen for STD (sexually transmitted disease) Ordered: 12/04/2024[facility] HealthcareComment on above:Ordered: 12/04/2024ytology Cervical or vaginal smear or scraping studyPap Smear Pathology and Cytology Routine Well woman exam with routine gynecological exam Ordered: 12/04/2024[facility] HealthcareComment on above:Ordered: 12/04/2024 Hemoglobin A1c/Hemoglobin.total in BloodHemoglobin A1c Lab Routine Missed menses , unspecified gestational age Ordered: 10/16/2024[facility] Comment on above:Ordered: 10/16/2024Hepatitis B virus surface Ag [Presence] in Serum or Plasma by ImmunoassayHepatitis B surface antigen Lab Routine Missed menses , unspecified gestational age Ordered: 10/16/2024[facility] Comment on above:Ordered: 10/16/2024Hepatitis C virus Ab [Presence] in Serum or Plasma by ImmunoassayHepatitis C antibody Lab Routine Missed menses , unspecified gestational age Ordered: 10/16/2024[facility] HealthcareComment on above: Ordered: 10/16/2024HIV-1/HIV-2 antigen/antibody combination immunoassayHIV-1 and HIV-2 antibodies Lab Routine Missed menses , unspecified gestational age Ordered: 10/16/2024[facility] HealthcareComment on above:Ordered: 10/16/2024Human papilloma virus DNA [Presence] in Unspecified specimen by Probe with amplificationHPV DNA probe, amplified Microbiology Routine Well woman exam with routine gynecological exam Ordered: 12/04/2024[facility] HealthcareComment on above: Ordered: 12/04/2024Neisseria gonorrhoeae DNA [Presence] in Unspecified specimen by CARLITOS with probe detectionNeisseria gonorrhea DNA probe, direct Lab Routine Screen for STD (sexually transmitted disease) Ordered: 12/04/2024[facility] Comment on above:Ordered: 12/04/2024Reagin Ab [Presence] in Serum by RPRRPR Lab Routine Missed menses , unspecified gestational age Ordered: 10/16/2024 [facility] HealthcareComment on above:Ordered: 10/16/2024Rubella antibody, IgGRubella antibody, IgG Lab Routine Missed menses , unspecified gestational age Ordered: 10/16/2024[facility] HealthcareComment on above:Ordered: 10/16/2024 SURESWAB(R) ADVANCED VAGINITIS PLUS, TMASURESWAB(R) ADVANCED VAGINITIS PLUS, TMA Pathology and Cytology Routine Screen for STD (sexually transmitted disease) Ordered: 12/04/2024[facility] Work Phone: comment on above:Ordered: 12/04/2024 Immunizations Immunization DateImmunizationNotesCare UczxyltkJjpaldks92-43-0486qeqdinmje virus vaccine, unspecified formulationOma Davis RN Work Phone: p[facility] Payers DatePayer CategoryPayerPolicy ID2025[facility]icaid[facility] [place] [id number] [id number]-[id number] Care Other (unspecified)[facility] [id number] Health Insurance [facility] [id number]x Health Mbwfpdumd3[id number] 2..1.354811.3.579.2.593 31-64-9738Djibvmp3123700 2.0.1.626825.3.579.2.07742-12-1346Nevygyq1384637 2..1.877496.3.579.2.55543-48-6872Dpawlyj1848336 2..1.103079.3.579.2.91982-94-8031Xwchhzd1712732 2..1.774493.3.579.2.22177-08-4747Dexifje6058424 2..1.382905.3.579.2.28748-68-0849Ewcrqaz9225216 2..1.524562.3.579.2.02481-66-1690Vvqdjvt9737487 2.0.1.008696.3.579.2.96582-19-8217Wzztcjf7541174 2..1.395342.3.579.2.90260-88-4324Pokerav6172074 2.0.1.631324.3.579.2.83787-51-2115Gztmfyt1495353 2.16.840.1.480957.3.579.2.12021-23-6557Dednkjz0221853 2.0.1.902429.3.579.2.55752-81-0376Ljjrztc5200791 2.840.1.602194.3.579.2.10807-07-7553Sceamsm5301351 2.0.1.282935.3.579.2.63191-66-1655Uxduqqg2242594 2.0.1.275944.3.579.2.81115-87-8800Tqzlyqw9063416 2..1.744616.3.579.2.35489-83-0547Olfaobw3411745 2..1.699402.3.579.2.78720-96-8768Qdseeip1412757 2..1.133932.3.579.2.98432-13-4441Kumcbfh6778777 2..1.497857.3.579.2.76417-00-6105Xopuija4257150 2..1.998713.3.579.2.20822-64-1110Wxrezni25513369 2..1.010153.3.579.2.232325-60-9657Cnigrjf82891001 2..1.478461.3.579.2.795201-53-7553Anmsjwk62060631 2..1.166696.3.579.2.986565-55-5801Japuhhx513923560 2..1.390923.3.579.2.157300-14-8311Bpfcrwb69742422 2..1.689361.3.579.2.849811-96-5994Yaagaiw29826727 2.16.840.1.727412.3.579.2.737676-12-0113Rcqzszt96506490 2.16.840.1.241487.3.579.2.969016-82-2619Jmmrnew62092844 2.16.840.1.152656.3.579.2.953995-04-9604Njboden44005129 2..840.1.316937.3.579.2.762976-93-7765Pceciof83175361 2.16.840.1.446728.3.579.2.454988-49-2270Zqdnhjr02176948 2..840.1.302024.3.579.2.812659-09-5620Vdpthzw41401861 2..840.1.253823.3.579.2.298559-80-7358Nmfdmpn23073082 2..840.1.947311.3.579.2.278545-66-6820Adtjevu00844542 2..840.1.826577.3.579.2.073243-68-2147Iqkhajs9030258 2..840.1.456171.3.579.2.545045-90-4105Orstguw5959243 2..840.1.048961.3.579.2.190307-89-6895Enbyqoo2012106 2.840.1.356072.3.579.2.305453-52-6475Lggedwq5914107417365-77-0736Sxgtoxp [id number] 2.840.1.993659.3.579.2.531 Social History DateTypeDetailFacilityStart: 08-05-2020 End: 25-92-9768Szm Assigned At BirthProProvidence HospitalTobacco smoking status NHISTobacco smoking consumption unknownNOAZ HealthcareStart: 08-12-2024 PregnancyNOAZ HealthcareStart: 18-96-2373Mph assigned at birthFeBellevue Hospital HealthcareStart: 64-81-6190Phrjhr identityIdentifies as female gender (finding) [facility] HealthcareStart: 36-74-5458Ugijmm orientationHeterosexual (finding)[facility] HealthcareStart: 17-78-9584Xzhkuxb smoking status NHISNever smoked tobacco [facility] SystemStart: 87-00-3968Urvsulw use and exposureSmokeless tobacco non-userCleveland Clinic Fairview Hospital SystemStart: 85-92-7955Rptgzdaxy beverage intakeEx-drinker (finding)[facility] SystemStart: 08-05-2020 End: 18-56-1362Mheavra of Social functionProMercy Health [facility] Hospital SystemStart: 30-82-4531Upo you worried or concerned that in the next two months you may not have stable housing that you own, rent or stay in as a part of a household?No [facility] SystemStart: 04-24-0366Oaq assigned at birthNot on file [facility] SystemStart: 96-43-7063QuyGcjpov (finding)[facility] Medical Equipment Procedure CodeEquipment CodeEquipment Original TextEquipment IdentifierDates1 strip by In Vitro route Daily Use in the morning prior to breakfast, 1 hour after each meal for atotal of 4times daily.[id number]: 11-13-2024 End: each by In Vitro route Daily Use to check FSBS four times daily [id number]: 11-13-2024 End: 12-13-2024 Clinical Notes 07-09-2021 to 04-14-2025 Note Date & ThqpCgutZciqnwyn27-33-9751 History of Present illness Narrative* Sarita Wan [...] to check FSBS. Blood Glucose Monitoring Suppl (Storrz Glucometer) w/Device kit 1 kit, Does not apply, Daily, Use four times daily to check FSBS. In the morning prior to breakfast & 1 hour after each meal for a total of 4times daily. Dvgeckzq-Nkl-Bd-FA ( 1 + IRON PO) Take by mouth ProFe 391.3 (180 Fe) MG capsule 1 capsule, Daily ALLERGIES No Known Allergies PROBLEMS Active Ambulatory Problems Diagnosis Date Noted 28 weeks gestation of ([facility]) 02/16/2025 Third trimester ([facility]) 02/16/2025 Resolved Ambulatory Problems Diagnosis Date [...] nursing note reviewed. Exam conducted with a junior programmer analyst present. Vitals: Estimated body mass index is 34.47 kg/m as calculated from the following: Height as of 12/04/24: 5' 4 . Weight as of this encounter: 200 lb 12.8 oz. BP: 130/78 Patient's last menstrual period was 07/29/2024 (exact date). Assessment/Plan ICD-10-CM 1. Third trimester ([facility]) Z34.93 2. 37 weeks gestation of ([facility]) Z3A.37 POCT urinalysis dipstick manually resulted Return [...] of: Scooby Alvarado DO documented in this encounterRipley County Memorial HospitalRjoanweyxk05-94-7266 History of Present illness Narrative* SCOTTIE Yañez [...] meal for a total of 4times daily. Zwjkjsyh-Obo-Dl-FA ( 1 + IRON PO) Take by mouth ProFe 391.3 (180 Fe) MG capsule 1 capsule, Daily ALLERGIES Allergies[1] PROBLEMS Active Ambulatory Problems Diagnosis Date Noted 28 weeks gestation of ([facility]) 02/16/2025 Third trimester ([facility]) 02/16/2025 Resolved Ambulatory Problems Diagnosis Date [...] ASSESSMENT & PLAN ICD-10-CM 1. Third trimester ([facility]) Z34.93 POCT urinalysis dipstick manually resulted CULTURE, GROUP B STREP WITH SUSCEPTIBLITY CULTURE, GROUP B STREP WITH SUSCEPTIBLITY 2. 36 weeks gestation of ([facility]) Z3A.36 Patient is doing well but [...] surgical history on file. documented in this encounterRipley County Memorial HospitalUtnoqnefpm35-52-5460 History of Present illness Narrative* Jem Ambrosio [...] meal for a total of 4times daily. Wxfyybvd-Xwd-Dh-FA ( 1 + IRON PO) Take by mouth ProFe 391.3 (180 Fe) MG capsule 1 capsule, Daily ALLERGIES Not on File PROBLEMS Active Ambulatory Problems Diagnosis Date Noted 28 weeks gestation of ([facility]) 02/16/2025 Third trimester ([facility]) 02/16/2025 Resolved Ambulatory Problems Diagnosis Date [...] nursing note reviewed. Exam conducted with a junior programmer analyst present. Vitals: Estimated body mass index is 33.44 kg/m as calculated from the following: Height as of 12/04/24: 5' 4 . Weight as of 03/10/25: 194 lb 12.8 oz. BP: Patient's last menstrual period was 07/29/2024 (exact date). ASSESSMENT & PLAN ICD-10-CM 1. 34 weeks gestation of ([facility]) Z3A.34 2. Third trimester ([facility]) Z34.93 US biophysical profile w non stress test POCT urinalysis dipstick manually resulted 3. Gestational diabetes mellitus (GDM) in third trimester, gestational diabetes method of control unspecified ([facility]) O24.419 Return OB: Patient presents today [...] continues to send her glucose logs to [facility] and we will begin NST/BPP this week. Orders Placed This Encounter Procedures US biophysical profile w non stress test POCT urinalysis dipstick manually resulted Follow Up: Patient is to return to office in 2 week for routine OB appointment. Documented by Yane Grant MA on behalf of: Jem Ambrosio NP documented in this encounterRipley County Memorial HospitalUltivnqtxh25-02-5633 Miscellaneous Notes* Telephone Encounter - BEL Navarro - 03/20/2025 12:55 PM EDT Called patient and had to leave a voicemail. We haven't received any blood sugar logs for 4 weeks. Asked her to please send them to us or to call with questions. Left RD phone number. documented in this encounterUniversity Hospitals Parma Medical Center09-26-2025 Telephone encounter Note* Telephone Encounter - BEL Navarro - 03/20/2025 12:55 PM EDT Called patient and had to leave a voicemail. We haven't received any blood sugar logs for 4 weeks. Asked her to please send them to us or to call with questions. Left RD phone number. [facility]09-16-2025 History of Present illness Narrative* SCOTTIE Yañez [...] meal for a total of 4times daily. Ivrdyzgg-Gjg-Mn-FA ( 1 + IRON PO) Take by mouth ProFe 391.3 (180 Fe) MG capsule 1 capsule, Daily ALLERGIES No Known Allergies PROBLEMS Active Ambulatory Problems Diagnosis Date Noted 28 weeks gestation of ([facility]) 02/16/2025 Third trimester ([facility]) 02/16/2025 Resolved Ambulatory Problems Diagnosis Date [...] nursing note reviewed. Exam conducted with a junior programmer analyst present. Vitals: Estimated body mass index is 33.44 kg/m as calculated from the following: Height as of 12/04/24: 5' 4 . Weight as of this encounter: 194 lb 12.8 oz. BP: 136/74 Patient's last menstrual period was 07/29/2024 (exact date). ASSESSMENT & PLAN ICD-10-CM 1. 32 weeks gestation of ([facility]) Z3A.32 POCT urinalysis dipstick manually resulted 2. Third trimester ([facility]) Z34.93 POCT urinalysis dipstick manually resulted [...] Documented by SCOTTIE Yañez on behalf of: CSOTTIE Yañez documented in this encounterRipley County Memorial HospitalIjbtjcuaki55-43-8784 History of Present illness Narrative* SCOTTIE Yañez [...] meal for a total of 4times daily. Icqbtthl-Yrh-Vp-FA ( 1 + IRON PO) Take by mouth ProFe 391.3 (180 Fe) MG capsule 1 capsule, Daily ALLERGIES No Known Allergies PROBLEMS Active Ambulatory Problems Diagnosis Date Noted 28 weeks gestation of ([facility]) 02/16/2025 Third trimester ([facility]) 02/16/2025 Resolved Ambulatory Problems Diagnosis Date [...] nursing note reviewed. Exam conducted with a junior programmer analyst present. Vitals: Estimated body mass index is 33.3 kg/m as calculated from the following: Height as of 12/04/24: 5' 4 . Weight as of this encounter: 194 lb. BP: 128/72 Patient's last menstrual period was 07/29/2024 (exact date). ASSESSMENT & PLAN ICD-10-CM 1. Size of fetus inconsistent with dates in second trimester ([facility]) O26.842 US OB follow up transabdominal approach 2. 28 weeks gestation of ([facility]) Z3A.28 CANCELED: CBC and differential 3. Third trimester ([facility]) Z34.93 Return OB: Patient presents today [...] behalf of: SCOTTIE Yañez documented in this encounterRipley County Memorial HospitalCpgecukroc28-82-4892 History of Present illness Narrative* Jem Ambrosio [...] to check FSBS. Blood Glucose Monitoring Suppl (Storrz Glucometer) w/Device kit 1 kit, Does not apply, Daily, Use four times daily to check FSBS. In the morning prior to breakfast & 1 hour after each meal for a total of 4times daily. Aswshyau-Ipp-Xc-FA ( 1 + IRON PO) Take by [...] nursing note reviewed. Exam conducted with a junior programmer analyst present. Vitals: Estimated body mass index is 33 kg/m as calculated from the following: Height as of 25: 5' 4 . Weight as of this encounter: 192 lb 4 oz. BP: 136/78 Patient's last menstrual period was 07/29/2024 (exact date). ASSESSMENT & PLAN ICD-10-CM 1. Second trimester ([facility]) Z34.92 POCT urinalysis dipstick manually resulted 2. 26 weeks gestation of ([facility]) Z3A.26 3. Diabetes mellitus screening Z13.1 [...] glucose log and completed Diabetic education through [facility]. Documented by Jem Ambrosio NP on behalf of: Scooby Alvarado DO documented in this encounterRipley County Memorial HospitalPhpuyvgxdi88-68-6827 History of Present illness Narrative* SCOTTIE Yañez [...] to check FSBS. Blood Glucose Monitoring Suppl ([employer] Glucometer) w/Device kit 1 kit, Does not apply, Daily, Use four times daily to check FSBS. In the morning prior to breakfast & 1 hour after each meal for a total of 4times daily. Tmmzhyyo-Rml-Nw-FA ( 1 + IRON PO) Take by [...] ASSESSMENT & PLAN ICD-10-CM 1. Second trimester ([facility]) Z34.92 POCT urinalysis dipstick manually resulted 2. 22 weeks gestation of ([facility]) Z3A.22 Return OB: Patient presents today [...] behalf of: SCOTTIE Yañez documented in this encounterRipley County Memorial HospitalJivfsyniyz56-98-5169 Miscellaneous Notes* Telephone Encounter - BEL Anderson [...] have questions you can call me at [phone]. Please continue to send in blood sugars weekly. I will also send a [employer] message. documented in this encounterUniversity Hospitals Parma Medical Center06-12-2025 Telephone encounter Note* Telephone Encounter - BEL [...] have questions you can call me at [phone]. Please continue to send in blood sugars weekly. I will also send a [employer] message. [employer] Work Phone: 1(427) 384-348406-12-2025 History of Present illness Narrative* Yane Grant [...] to check FSBS. Blood Glucose Monitoring Suppl (Storrz Glucometer) w/Device kit 1 kit, Does not [...] Use to check FSBS four times daily Mmfuvwjg-Dga-Fb-FA ( 1 + IRON PO) Take by [...] nursing note reviewed. Exam conducted with a junior programmer analyst present. Vitals: There is no height or weight on file to calculate BMI. BP: 118/72 Patient's last menstrual period was 07/29/2024 (exact date). ASSESSMENT & PLAN ICD-10-CM 1. Second trimester ([facility]) Z34.92 POCT urinalysis dipstick manually resulted 2. 18 weeks gestation of ([facility]) Z3A.18 3. Well woman exam with routine gynecological exam Z01.419 Pap Smear HPV DNA probe, amplified 4. Screening, , for anatomic survey ([facility]) Z36.89 US OB 14+ weeks anatomy scan 5. Screen for STD (sexually transmitted disease) Z11.3 SURESWAB(R) ADVANCED VAGINITIS PLUS, TMA CHLAMYDIA TRACHOMATIS (GENITO/STI) Neisseria gonorrhea DNA probe, direct 6. Need for maternal serum alpha-protein (MSAFP) screening ([facility]) Z36.1 Alpha fetoprotein, maternal Alpha fetoprotein, [...] of: Scooby Alvarado DO documented in this encounterRipley County Memorial HospitalUemoxsbnlf95-65-3049 Group counseling note* Group Note - Chinyere [...] Face to face time was 85 minutes. [employer] Work Phone: 1(485) 676-325006-02-2025 Miscellaneous Notes* Group Note - Chinyere Martinez [...] time was 85 minutes. documented in this encounterSelect Medical TriHealth Rehabilitation HospitalSportube Sparrow Ionia HospitalFtjxcp44-54-7744 History of Present illness Narrative* Wendy Ulloa, [...] Use to check FSBS four times daily Hdhnrbnc-Kdj-Xe-FA ( 1 + IRON PO) Take by [...] nursing note reviewed. Exam conducted with a junior programmer analyst present. Vitals: There is no height or [...] or undercooked meat, and stay away from [facility]. Patient has been consulted regarding any further do's and don'tsof . Patient voiced understanding and all questions and concerns were answered. Orders Placed This Encounter Procedures POCT urinalysis dipstick manually resulted Discussed with patient her recent A1c results and patient aware that referral will be sent to [facility] for Diabetic Education and monitoring. PVU and supplies sent to pharmacy for patient to pickup and take with her to her referral appointment. Follow Up: Patient is to return in 4 weeks for routine OB appointment. Documented by Wendy Ulloa LPN on behalf of: Scooby Alvarado DO documented in this encounterRipley County Memorial HospitalQhtsshxvyh80-77-3770 History of Present illness Narrative* Faye Tyler [...] or undercooked meat, and stay away from [facility]. Patient has also been advised to not [...] by: Faye Tyler MA documented in this encounterRipley County Memorial HospitalRzihejyrpv25-45-3244 Evaluation note* Encounter Date Diagnosis Assessment Notes [...] Patient care instructions given in writting by [facility] document [employer] Other Evaluation note* Diagnosis Missed menses Missed [...] of control unspecified documented in this encounter [facility] SystemEvaluation [facility]* Diagnosis Second trimester ([facility]) state, incidental 18 weeks gestation of ([facility]) Well woman exam with routine gynecological exam Routine gynecological examination Screening, , for anatomic survey ([facility]) Encounter for anatomic survey Screen for STD (sexually transmitted disease) Screening examination for venereal disease Need for maternal serum alpha-protein (MSAFP) screening ([facility]) documented in this encounter [facility] HealthcareEvaluation note* Diagnosis Second trimester ([facility]) state, incidental 22 weeks gestation of [...] encounter [facility] HealthcareInstructionsNot on filedocumented in this encounterProMedidc Health SystemInstructionsNot on filedocumented in this encounterProMedidc Health System Summary Purpose Family History No Family History Records FoundNo Family History Records FoundNo Family History Records FoundNo Family History Records FoundNo Family History Records Found Advance Directives Date ActivatedDate InactivatedComments12/20/2023 11:13 PM12/21/2023 1:46 PM Additional Source Comments INFORMATION SOURCE (unrecogn ized section and content) DATE CREATED AUTHOR 11/17/2021 [facility] DATE CREATED AUTHOR AUTHOR'S ORGANIZ ATION 03/24/2022 [facility] DATE CREATED AUTHOR AUTHOR'S ORGANIZ ATION 12/29/2023 [facility] DATE CREATED AUTHOR AUTHOR'S ORGANIZ ATION 11/25/2024 [facility] DATE CREATED AUTHOR AUTHOR'S ORGANIZ ATION 04/15/2025 [facility] EPIC REASON FOR VISIT (unrecogniz ed section and content) ReasonCommentsAmenorrheaReasonCommentsRoutine VisitReasonComments Gestational DiabetesSpecialtyDiagnoses / ProceduresReferred By ContactReferred To ContactMaternal and Medicine Diagnoses Gestational diabetes mellitus (GDM) in second trimester, gestational diabetes method of control unspecified Scooby Alvarado, DO [address] [place] [address] Phone: tel: fax: Maternal- Medicine at [facility] [address] [place] [address] Phone: tel: fax: Referral IDStatusReasonStart DateExpiration DateVisits RequestedVisits [id number] Review Specialty Services Required Care Teams (unrecognized sec tion and content) Team MemberRelationshipSpecialtyStart DateEnd Date No Pcp, [place] [address] PCP - GeneralFamily Medicine12/19/23Team MemberRelationshipSpecialtyStart DateEnd Date No Pcp, No Pcp [place] [address] PCP - GeneralFamily Medicine12/19/23Team MemberRelationshipSpecialtyStart DateEnd Date No Pcp, [place] [address] PCP - GeneralFamily Medicine12/19/23 FOR RECORDS PERTAINING [...] BE BASED ON THE PRIMARY CLINICAL RECORDS. [employer] provides no warranty or guarantee of the accuracy or completeness of information in this document.
[2025-04-21 13:19] VITALS: BP 119/71; PULSE 71
== END 2025-04-21 13:42 | disposition home or self-care (01) ==
LOC: US 13:01 → FBC 13:03
PROVIDERS: Visit Provider Nurse Practitioner Family
DX: O24.419 Gestational diabetes mellitus in pregnancy, unspecified control (principal); Z3A.38 38 weeks gestation of pregnancy
CPT/HCPCS: 76818

== ENCOUNTER 2025-04-24 10:03 | Outpatient (OUT) | payer MEDICAID, SELFPAY ==
--- OUTSIDE RECORDS SUMMARY | 2024-07-15 11:45 | XMS_ITS ---
Author Organization [facility] vices Address [address] [place] [phone] Care Team Providers Care Scowman Name Role Phone Pako Mays [phone] REASON FOR VISIT CANCEL- Periodic Exam Social History Sex Assigned At : Social History Observation Description Sex Assigned At Female Encounters Encounter Location Date Provider Diagnosis [facility] [address] [place] [phone] 07/15/2024 Pako Mays Plan Of Treatment Next Appt Details Provider Name:Najma gimenez, 10/02/2025 11:15:00 AM, [address] [place] [address], [phone], Progress Notes * MOSQUEDA AntonettejeanDOB:1990 (34 yo F)Acc No.[id number]:07/15/2024 Patient:?Paris MOSQUEDA :?Pako Mays DDSDOB:1990???Age:34 Y ???Sex:FemaleDate:07/15/2024Phone:[phone]:[address] [place], [place]-[id number] Subjective: * Chief Complaints: * 1 . CANCEL- Periodic Exam. * Medical History: Objective: * Vitals: Assessment: Plan: * Treatment: * Billing Information: * Visit Code: * Procedure Codes: * Electronic signature of Pako Mays DDS on 04/24/2025 at 10:06 AM EDTSign off status: Pending * Provider: Yesenia Mays DDS Date: 0 07/15/2024 Generated for Printing/Faxing/eTransmitting on:?04/24/2025 10:06 AM EDT
--- OUTSIDE RECORDS SUMMARY | 2024-07-28 03:45 | XMS_ITS ---
Author Organization [facility] vices Address [address] [place] [phone] Care Team Providers Care Edge Finisher Name Role Phone Pako Mays [facility] [phone] REASON FOR VISIT Recall (A) 33 Medications Medication SIG (Take, Route, Frequency, Duration) Notes Start Date End Date Status Pantoprazole Sodium 40 MG 1 tablet Orall y Once a day; Duration: 30 day(s) as needed 09/05/2021 Not-TakingDicyclomine HCl 20 MG1 tablet Orally Three times a day; Duration: 30 day(s)as bgqvin3409/05/2021Not-Taking Social History Sex Assigned At : Social History Observation Description Sex Assigned At Female Encounters Encounter Location Date Provider Diagnosis [facility] [address] [place] [phone] 07/28/2024 Pako Mays Plan Of Treatment Next Appt Details Provider Name:Najma gimenez, 10/02/2025 11:15:00 AM, [address] [place], [place], [phone], Progress Notes * Paris MOSQUEDADOB:1990 (34 yo F)Acc No.[id number]:07/28/2024 Patient:Paris FARR :?Pako Mays DDSDOB:1990???Age:34 Y ???Sex:FemaleDate:07/28/2024Phone:[phone]:[address] [place], [id number] Subjective: * Chief Complaints: * 1 . [...] DDS Date: 0 07/28/2024 Generated for Printing/Faxing/eTransmitting on:?04/24/2025 10:06 AM EDT
--- OUTSIDE RECORDS SUMMARY | 2025-04-14 11:10 | XMS_ITS | Encounter Summary ---
Author Organization [facility] Address [address] [place] [address] Care Team Providers Care Tire Builder Name Role Phone Unavailable Primary Care Provider Unavailabl e Reason for Visit * ReasonCommentsRoutine Visit Encounter Details DateTypeDepartmentCare Team (Latest Contact Info)Lbrugikfgcq80/21/2025 11:10 AM EDTRoutine [facility] [address] [facility] [place] [phone] Scooby Alvarado DO [address] [place] [address] Third trimester ([facility]); 37 weeks gestation of ([facility]) Social History Tobacco UseTypesPacks/DayYears UsedDateSmoking Tobacco: Never Assessed Estimated Date of NhlbfyhkXbfzzvazDzk01/11/2025Based on last menstrual period of 07/29/2024 (Exact Date)Sex and Gender InformationValueDate RecordedSex Assigned at QnjrfIhqyxi12/03/2024 9:38 AM ESTLegal BghElsuti51/15/2023 6:47 PM EDTGender FocazbecQhdhuv04/03/2024 9:38 AM ESTSexual RqgsviujtvuIxhsttad38/03/2024 9:38 AM ESTdocumented as of this encounter Last Filed Vital Signs Vital SignReadingTime TakenCommentsBlood Wzujsybk335/7810 11:06 AM EDT Pulse--Temperature--Respiratory Rate--Oxygen Saturation--Inhaled Oxygen Concentration--Iapzrk56.1 kg (200 lb 12.8 oz)04/14/2025 11:06 AM EDTHeight--Body Mass Index34.4706 10:26 AM EDTdocumented in this encounter Progress Notes * Sarita Wan, ACCOUNTING LECTURER - 04/14/2025 11:10 AM EDT Reason for Appointment: Patient ID: Paris Mosqueda is a 34 y.o. female who presents for Routine Visit Patient presents today for Return OB appointment. MEDICATIONS Current Outpatient Medications Medication Instructions Alcohol Swabs (Alcohol Prep Pad) 70 % pads 1 Pad, Topical, Daily, Use four times daily to check FSBS. Blood Glucose Monitoring Suppl ([employer] Glucometer) w/Device kit 1 kit, Does not apply, Daily, Use four times daily to check FSBS. In the morning prior to breakfast & 1 hour after each meal for a total of 4times daily. Urnqyldc-Flx-Ym-FA ( 1 + IRON PO) Take by mouth ProFe 391.3 (180 Fe) MG capsule 1 capsule, Daily ALLERGIES No Known Allergies PROBLEMS Active Ambulatory Problems Diagnosis Date Noted 28 weeks gestation of ([facility]) 02/16/2025 Third trimester ([facility]) 02/16/2025 Resolved Ambulatory Problems Diagnosis Date Noted [...] nursing note reviewed. Exam conducted with a instructional services specialist present. Vitals: Estimated body mass index is 34.47 kg/m?? as calculated from the following: Height as of 25: 5' 4 . Weight as of this encounter: 200 lb 12.8 oz. BP: 130/78 Patient's last menstrual period was 07/29/2024 (exact date). Assessment/Plan ICD-10-CM 1. Third trimester ([facility]) Z34.93 2. 37 weeks gestation of ([facility]) Z3A.37 POCT urinalysis dipstick manually resulted Return [...] Plan of Treatment DateTypeDepartmentCare Team (Latest Contact Info)Fffslvmcdat15/22/2025 9:50 AM ESTPostpartum Visit [facility] [address] [phone] Scooby Alvarado DO [address] [place] [address] documented as of this encounter Procedures Procedure NamePriorityDate/TimeAssociated DiagnosisCommentsPOCT URINALYSIS TFUATRLMBcrplyo16/21/2025 11:12 AM EDT 37 weeks gestation of [...] this encounter Visit Diagnoses Diagnosis Third trimester ([facility]) state, incidental 37 weeks gestation of ([facility]) documented in this encounter
--- OUTSIDE RECORDS SUMMARY | 2025-04-21 14:20 | XMS_ITS | Encounter Summary ---
Author Organization [facility] Address [address] [place] [address] Care Team Providers Care Global Chief Creative Officer Name Role Phone Unavailable Primary Care Provider Unavailabl e Reason for Visit * ReasonCommentsRoutine Visit Encounter Details DateTypeDepartmentCare Team (Latest Contact Info)Lwzcymzimbt83/28/2025 2:20 PM EDTRoutine [facility]BC[facility] [address] [place] [address] Deborah Kwan PA [address] [facility] [address] [facility] [address] [place], [facility]11 Third trimester ([facility]); 38 weeks gestation of ([facility]) Social History Tobacco UseTypesPacks/DayYears UsedDateSmoking Tobacco: Never Assessed Estimated Date of NmhwzkkwTrztuauiUgq08/11/2025Based on last menstrual period of 07/29/2024 (Exact Date)Sex and Gender InformationValueDate RecordedSex Assigned at MeuakRmkgmt29/03/2024 9:38 AM ESTLegal TmsXhzvqr44/15/2023 6:47 PM EDTGender XaveovzlKvyfpk52/03/2024 9:38 AM ESTSexual ZgazzzqhkzkJykvffgc22/03/2024 9:38 AM ESTdocumented as of this encounter Last Filed Vital Signs Vital SignReadingTime TakenCommentsBlood Bhccgyvr620/8210 2:09 PM EDT Pulse--Temperature--Respiratory Rate--Oxygen Saturation--Inhaled Oxygen Concentration--Etmulz70.1 kg (200 lb 12 oz)04/21/2025 2:09 PM [...] to check FSBS. Blood Glucose Monitoring Suppl ([employer] Glucometer) w/Device kit 1 kit, Does not apply, Daily, Use four times daily to check FSBS. In the morning prior to breakfast & 1 hour after each meal for a total of 4times daily. Ximhaopg-Kbw-Xc-FA ( 1 + IRON PO) Take by mouth ALLERGIES No Known Allergies PROBLEMS Active Ambulatory Problems Diagnosis Date Noted 28 weeks gestation of ([facility]) 02/16/2025 Third trimester ([facility]) 02/16/2025 Resolved Ambulatory Problems Diagnosis Date Noted [...] nursing note reviewed. Exam conducted with a cadastral engineer present. Vitals: Estimated body mass index is 34.46 kg/m?? as calculated from the following: Height as of 25: 5' 4 . Weight as of this encounter: 200 lb 12 oz. BP: 140/82 Patient's last menstrual period was 07/29/2024 (exact date). Assessment/Plan ICD-10-CM 1. Third trimester ([facility]) Z34.93 POCT urinalysis dipstick manually resulted 2. 38 weeks gestation of ([facility]) Z3A.38 Return OB: Patient presents [...] Plan of Treatment DateTypeDepartmentCare Team (Latest Contact Info)Bicixxmgdao27/22/2025 9:50 AM ESTPostpartum Visit [facility] [address] [place] [address] Scooby Alvarado DO [address] [place] [place], [place] [address] documented as of this encounter Procedures Procedure NamePriorityDate/TimeAssociated DiagnosisCommentsPOCT URINALYSIS NCNVTPAGWgioclj89/28/2025 2:14 PM EDT Third trimester ([facility]) documented [...] PM EDT Narrative Authorizing ProviderResult TypeResult StatusDeborah JerezPenn State Health [facility] TEST ENTER/EDIT ORDERABLESFinal Result documented in this encounter Visit Diagnoses Diagnosis Third trimester ([facility]) state, incidental 38 weeks gestation of ([facility]) documented in this encounter
--- OUTSIDE RECORDS SUMMARY | 2025-04-24 10:06 | XMS_ITS | Encounter Summary ---
Author Organization [facility] Address [address] [place] [address] Care Team Providers Care Bag Shop Worker Name Role Phone Unavailable Primary Care Provider Unavailabl e Encounter Details DateTypeDepartmentCare Team (Latest Contact Info)Mfaimbxhaig89/28/2025Travel Social History Tobacco UseTypesPacks/DayYears UsedDateSmoking Tobacco: Never Assessed Estimated Date of CauyjyxnPsskxnqdBvs32/11/2025Based on last menstrual period of 07/29/2024 (Exact Date)Sex and Gender InformationValueDate RecordedSex Assigned at OimxpCjounp91/03/2024 9:38 AM ESTLegal UhnJinuxm11/15/2023 6:47 PM EDTGender AchxeviaUcurii94/03/2024 9:38 AM ESTSexual ZwojcitnnrgVhzogfts82/03/2024 9:38 AM ESTdocumented as of this encounter Plan of Treatment DateTypeDepartmentCare Team (Latest Contact Info)Brhocbnkddb36/22/2025 9:50 AM ESTPostpartum Visit [facility]arlene [place] [facility] [address] [address] Scooby Alvarado DO [address] [place] [address] documented as of this encounter Visit Diagnoses Not on filedocumented in this encounter
--- OUTSIDE RECORDS SUMMARY | 2025-04-24 10:06 | XMS_ITS ---
Author Organization [facility] Address [address] [place] [address] Care Team Providers Care Methods Time Analyst Name Role Phone Unavailable Primary Care Provider Unavailabl e Comprehensive Maternal Care ([facility]) Status:Declined (Declined) Start date:04/09/2025 Enrollment date:04/16/2025 Enrollment reason:Identified by Health Plan End date:04/16/2025 Decline reason:Patient declined Continued Care and Services Coordination
--- OUTSIDE RECORDS SUMMARY | 2025-04-24 10:06 | XMS_ITS | Encounter Summary ---
Author Organization [facility] Address [address] [facility] [place] [address] Care Team Providers Care Wire Roller Name Role Phone EppsJihan do Paco OPERATOR HELPER Unavailable [phone] Encounter Details DateTypeDepartmentCare Team (Latest Contact Info)Qtsdyqejdch74/21/2024Clinisync Result Encounter [facility] External Department Unsolicited Hector Alvarado, [address] [place], [place] [address] Social History Tobacco UseTypesPacks/DayYears UsedDateSmoking Tobacco: Never Assessed CommentsUnknownSex and Gender InformationValueDate RecordedSex Assigned at Uiyojo1206/27/2023 9:38 AM ESTLegal AbdDuwojg68/15/2023 6:47 PM EDTGender Identity Mjmlfa4106/27/2023 9:38 AM ESTSexual LtldcoawhshZsgijtbf84/03/2024 9:38 AM EST documented as of this encounter Plan of Treatment DateTypeDepartmentCare Team (Latest Contact Info)Yjhtvqwpjra77/22/2025 9:50 AM ESTPostpartum Visit [facility] BAINGYN [address] [place] [address] Hector Alvarado DO [address] [place] [address] documented as of this encounter Procedures Procedure NamePriorityDate/TimeAssociated DiagnosisCommentsUS OB TRANSVAGINAL 12/14/2023 9:53 AM EDT documented in this encounter Results * US OB TRANSVAGINAL (12/14/2023 9:53 AM EDT)Anatomical RegionLateralityModality OtherSpecimen (Source)Anatomical Location / LateralityCollection Method / VolumeCollection TimeReceived Time12/14/2023 9:53 AM EDT Narrative 12/14/2023 9:56 AM EDT [facility] ?[address] ? [place] [address] ? Ultrasound Report ? Signed ? Patient: MOSQUEDA,PRISCILLA ? MR#: [id number] ?? : 1990 ?Acct:[id number] ?? Age/Sex: 33 / F ?ADM Date: 12/14/23 ?? Loc: [facility] ? Attending Dr: Hector Alvarado D.O. ? Ordering Physician: Hector Alvarado D.O. ?? Date of Service: 12/14/23 ?? Procedure(s): US OB transvaginal ?? Accession Number(s): [id number] ? cc: [facility] ; Hector Alvarado D.O. ? [facility] ? [address] ? [place] [address] ? Patient Name: ?? PRISCILLA ??MOSQUEDA ? MRN: [facility]:[id number] ? date: 1990 ?Sex: F ?? Assigned Patient Location: [facility] ?? Current Patient Location: [facility] ?? Accession/Order Number: [id number] ?? Exam Date: 12/14/2023 ??09:01 ?Report Date: 12/14/2023 ??09:53 ? At the request of: ?? HECTOR ??JENNY ? Procedure: ??US OB transvaginal ? EXAMINATION: US OB transvaginal ? HISTORY: MISSED MENSES ? COMPARISON: No relevant comparison available. ? FINDINGS: ? Area of anechoic echogenicity identified within the endometrial cavity ?? measuring 3.1 x 1.3 x 2.7 cm with a mean sac diameter of 2.36 with a mean sac ?? diameter of 2.4 cm, 7 weeks 0 days ? No pole or yolk sac is observed. ? Cervix: Closed, 4.5 cm ? The uterus is normal in size, contour and echotexture. ? The ovaries are normal. ? US/US OB transvaginal ?? IMPRESSION: ? Anechoic echogenicity in the endometrial cavity consistent with a gestational ?? sac. No pole or yolk sac. An embryonic favored, since the mean ? sac diameter is below 25 mm follow-up in 2 weeks is recommended ? Electronically authenticated by: NADIA ??IMAH ?? Date: 12/14/2023 ??09:53 ? Dictated By: ?Nadia Dooley M.D. ? Signed By: ?12/14/23 0956 ? DD/ 0953 ? TD/TT: ? Supervisor Forming And Tempering: Procedure Note Radiology, Radiologist, MD - 12/14/2023 [place] [address] Ultrasound Report Signed Patient: PRISCILLA MOSQUEDAMR#: [id number] : 1990Acct:[id number] Age/Sex: 33 / FADM Date: 12/14/23 Loc: [facility] Attending Dr: Hector Alvarado D.O. Ordering Physician: Hector Alvarado D.O. Date of Service: 12/14/23 Procedure(s): US OB transvaginal Accession Number(s): [id number] cc: [facility] ; Hector Alvarado D.O. The [address] [address] Patient Name: PRISCILLA MOSQUEDA MRN: [facility]:[id number] date: 1990 Sex: F Assigned Patient Location: [facility] Current Patient Location: [facility] Accession/Order Number: [id number] Exam Date: 12/14/2023 09:01 Report Date: 12/14/2023 [...] Nadia Dooley M.D. Signed By:12/14/2356 DD/ TD/TT: Supervisor Forming And Tempering: Authorizing ProviderResult TypeResult StatusCorey Jenny DOCLINISYNC IMAGINGFinal Result documented in this encounter Visit Diagnoses Not on filedocumented in this encounter Care Teams Team MemberRelationshipSpecialtyStart DateEnd Date Jihan Epps NP [address] [place] [address] PCP - [facility]4/documented as of this encounter
--- OUTSIDE RECORDS SUMMARY | 2025-04-24 10:06 | XMS_ITS | Encounter Summary ---
Author Organization [facility] Address [address] [place] [address] Care Team Providers Care Concaving Machine Operator Name Role Phone Unavailable Primary Care Provider Unavailabl e Encounter Details DateTypeDepartmentCare Team (Latest Contact Info)Ttegwojwjju65/29/2025linisync Result Encounter [facility] External Department Unsolicited Jem Ambrosio, SENIOR ANALYTICAL CHEMIST [address] [place] [address] Social History Tobacco UseTypesPacks/DayYears UsedDateSmoking Tobacco: Never Assessed Estimated Date of YlxourqcEmahwvrtYta99/11/2025Based on last menstrual period of 07/29/2024 (Exact Date)Sex and Gender InformationValueDate RecordedSex Assigned at CjczmLqotnj78/03/2024 9:38 AM ESTLegal AmaTpiteg18/15/2023 6:47 PM EDTGender DtdoygbmOnbybe75/03/2024 9:38 AM ESTSexual ZlulecmcjqpAwybbhzy52/03/2024 9:38 AM ESTdocumented as of this encounter Plan of Treatment DateTypeDepartmentCare Team (Latest Contact Info)Iggqgldgysp73/22/2025 9:50 AM ESTPostpartum Visit NOMMarlene MARES [address] [place] [address] Scooby Alvarado DO [address] [place], [place] [address] documented as of this encounter Procedures Procedure NamePriorityDate/TimeAssociated DiagnosisCommentsUS OB BPP W NON-HBEFCG4704/22/2025 7:22 AM EDT documented in this encounter Results * US OB BPP W NON-STRESS (04/22/2025 7:22 AM EDT)Anatomical Region LateralityModalityOtherSpecimen (Source)Anatomical Location / Laterality Collection Method / VolumeCollection TimeReceived Time04/22/2025 7:22 AM EDT Narrative 04/22/2025 7:24 AM EDT [facility] ?[address] ? [place] [address] ? Ultrasound Report ? Signed ? Patient: MOSQUEDA,PRISCILLA ? MR#: [id number] ?? : 1990 ?Acct:[id number] ?? Age/Sex: 34 / F ?ADM Date: 04/21/25 ?? Loc: US ? Attending Dr: Jem Ambrosio ? Ordering Physician: Jem Ambrosio ?? Date of Service: 04/21/25 ?? Procedure(s): US OB BPP w non-stress ?? Accession Number(s): [id number] ? cc: Jem Ambrosio; [facility] ? [facility] ? [address] ? [place] [address] ? Patient Name: ?? PRISCILLA ??MOSQUEDA ? MRN: [facility]:[id number] ? date: 1990 ?Sex: F ?? Assigned Patient Location: [facility] ?? Current Patient Location: ? Accession/Order Number: [id number] ?? Exam Date: 04/21/2025 ??13:04 ?Report Date: 04/22/2025 ??07:22 ? At the request of: ?? JEM ??ESTELLE ? Procedure: ??US OB BPP w non-stress ? BIOPHYSICAL PROFILE: ? CLINICAL INFORMATION: Gestational diabetes mellitus ? COMPARISON: 04/14/2025 ? There is a single live intrauterine gestation in cephalic presentation. ??The ?? reported gestational age is 38 weeks 0 days. ??The heart rate measures ?? 129 beats per minute. ? FINDINGS: ? TONE: 1 or more episodes of activity extension and flexion of ?? extremity or opening and closing of the hand ?[Y] ? 2/2 ?? GROSS BODY MOVEMENTS: 3 or more discrete body or limb movements ?[Y] ? 2/2 ?? BREATHING MOVEMENTS: 1 or more episodes of breathing lasting at ?? least 30 seconds ? [Y] ? 2/2 ?? JEANNINE: A single deepest vertical pocket of amniotic fluid greater than 2 cm ? [Y] ? 2/2 ?JEANNINE: 8.0 cm. ??The 5th percentile is 7.2 cm. ? Total score: ? 8/8 ? US/US OB BPP w non-stress ?? IMPRESSION: ? NORMAL BIOPHYSICAL PROFILE. ? BORDERLINE OLIGOHYDRAMNIOS. ? Impression dictated by: Sarita Evangelista M.D. ??04/22/2025 7:22 AM ? Dictation Location: RADIO-PC-02 ? Electronically authenticated by: [id number] ??Y ?? Date: 04/22/2025 ??07:22 ? Dictated By: ?Sarita Evangelista M.D. ? Signed By: ?10//25 0724 ? DD/ 0722 ? TD/TT: ? Territory Manager: Procedure Note Radiology, Radiologist, - 04/22/2025 [place] [address] Ultrasound Report Signed Patient: PRISCILLA MOSQUEDAMR#: [id number] : 1990Acct:[id number] Age/Sex: 34 / FADM Date: 04/21/25 Loc: US Attending Dr: Jem Ambrosio Ordering Physician: Jem Ambrosio Date of Service: 04/21/25 Procedure(s): US OB BPP w non-stress Accession Number(s): [id number] cc: Jem Ambrosio; [place] [id number] Patient Name: PRISCILLA MOSQUEDA MRN: [facility]:[id number] date: 1990 Sex: F Assigned Patient Location: [facility] Current Patient Location: Accession/Order Number: [id number] Exam Date: 04/21/2025 13:04 Report Date: 04/22/2025 07:22 At the request of: JEM AMBROSIO Procedure: US OB BPP w non-stress BIOPHYSICAL PROFILE: CLINICAL INFORMATION: Gestational diabetes mellitus COMPARISON: 04/14/2025 There is a single live intrauterine gestation in cephalic presentation.The reported gestational age is 38 weeks 0 days. The heart ratemeasures 129 beats per minute. FINDINGS: TONE: 1 or more episodes of activity extension and flexion of extremity or opening and closing of the hand [Y] 2/2 GROSS BODY MOVEMENTS: 3 or more discrete body or limb movements [Y] 2/2 BREATHING MOVEMENTS: 1 or more episodes of breathing lastingat least 30 seconds [Y] 2/2 JEANNINE: A single deepest vertical pocket of amniotic fluid greater than 2 cm [Y] 2/2 JEANNINE: 8.0 cm. The 5th percentile is 7.2 cm. Total score: 01/30 US/US OB BPP w non-stress IMPRESSION: NORMAL BIOPHYSICAL PROFILE. BORDERLINE OLIGOHYDRAMNIOS. Impression dictated by: Sarita Evangelista M.D. 04/22/2025 7:22 AM Dictation Location: [place] [address] Electronically authenticated by: [id number] Y Date: 7:22 Dictated By: Sarita Evangelista M.D. Signed By:04/22/25723 DD/ 1 TD/TT: Territory Manager: Authorizing ProviderResult TypeResult StatusJem Ambrosio NPCLINISYNC IMAGING Final Result documented in this encounter Visit Diagnoses Not on filedocumented in this encounter
--- OUTSIDE RECORDS SUMMARY | 2025-04-24 10:06 | XMS_ITS | Encounter Summary ---
Author Organization [facility] Address [address] [place] [address] Care Team Providers Care Concrete Batcher Name Role Phone Unavailable Primary Care Provider Unavailabl e Encounter Details DateTypeDepartmentCare Team (Latest Contact Info)Nyzgujuxutm88/28/2025amboo flowsheet NOMMyra MARES [address] [place] [address] Deborah Kwan PA [address] [place], [place] [address] Social History Tobacco UseTypesPacks/DayYears UsedDateSmoking Tobacco: Never Assessed Estimated Date of MetywioyKmomaazdYdh50/11/2025Based on last menstrual period of 07/29/2024 (Exact Date)Sex and Gender InformationValueDate RecordedSex Assigned at GmoenQxposz74/03/2024 9:38 AM ESTLegal CroOtdxhs18/15/2023 6:47 PM EDTGender SkphaqwtYmxria55/03/2024 9:38 AM ESTSexual PvmgvlmjraaTpsiryfz82/03/2024 9:38 AM ESTdocumented as of this encounter Plan of Treatment DateTypeDepartmentCare Team (Latest Contact Info)Eqgkqiczand28/22/2025 9:50 AM ESTPostpartum Visit NOMMyra MARES [address] [place] [address] Scooby Alvarado DO [address] [place], [facility] documented as of this encounter Visit Diagnoses Not on filedocumented in this encounter
--- OUTSIDE RECORDS SUMMARY | 2025-04-24 10:06 | XMS_ITS | Encounter Summary ---
Author Organization [facility] Address [address] [place] [address] Care Team Providers Care Die Maker Stamping Name Role Phone Unavailable Primary Care Provider Unavailabl e Encounter Details DateTypeDepartmentCare Team (Latest Contact Info)Dzdyerbfrqw00/23/2025Patient Outreach [facility] [address] [place] [phone] Deborah Jones LPN [address] [place] [address] Social History Tobacco UseTypesPacks/DayYears UsedDateSmoking Tobacco: Never Assessed Estimated Date of GcphxtxfVexcdjucOka48/11/2025Based on last menstrual period of 07/29/2024 (Exact Date)Sex and Gender InformationValueDate RecordedSex Assigned at VseabYanhfs72/03/2024 9:38 AM ESTLegal XnvZeayem47/15/2023 6:47 PM EDTGender MdoxyvwrBtorga56/03/2024 9:38 AM ESTSexual RcomttmeuoeMrdmsfqh17/03/2024 9:38 AM ESTdocumented as of this encounter Progress Notes * Deborah Jones LPN - 04/16/2025 10:32 AM EDT Initial Call. Pt declined outreach. documented in this encounter Plan of Treatment DateTypeDepartmentCare Team (Latest Contact Info)Aybbpatvaln57/ 9:50 AM ESTPostpartum Visit [facility] Sanam MARES [address] [place] [address] Scooby Alvarado DO [address] [place] [address] documented as of this encounter Visit Diagnoses Not on filedocumented in this encounter
--- OUTSIDE RECORDS SUMMARY | 2025-04-24 10:06 | XMS_ITS | Encounter Summary ---
Author Organization [facility] Address [address] [place] [address] Care Team Providers Care Tube Molder Fiberglass Name Role Phone Unavailable Primary Care Provider Unavailabl e Encounter Details DateTypeDepartmentCare Team (Latest Contact Info)Roufgqpwafn08/28/2025bstract [facility] [address] [place] [address] [place] [address] Scooby Alvarado DO [address] [place] [address] [place], [place] [address] Social History Tobacco UseTypesPacks/DayYears UsedDateSmoking Tobacco: Never Assessed Estimated Date of IioyisgnWitlrbnjBaz59/11/2025Based on last menstrual period of 07/29/2024 (Exact Date)Sex and Gender InformationValueDate RecordedSex Assigned at TdreeTpdoyu46/03/2024 9:38 AM ESTLegal LihTwvysz11/15/2023 6:47 PM EDTGender GumnhydrXinucm58/03/2024 9:38 AM ESTSexual FbhmrmwxpvnXwjrkzni01/03/2024 9:38 AM ESTdocumented as of this encounter Plan of Treatment DateTypeDepartmentCare Team (Latest Contact Info)Gfxibcwyqaw92/22/2025 9:50 AM ESTPostpartum Visit [facility] [address] [place] [address] Scooby Alvarado DO [address] [place] [address] [place] [address] documented as of this encounter Visit Diagnoses Not on filedocumented in this encounter
--- OUTSIDE RECORDS SUMMARY | 2025-04-24 10:06 | XMS_ITS | Encounter Summary ---
Author Organization [facility] Address [address] [place] [address] Care Team Providers Care Director Call Name Role Phone Unavailable Primary Care Provider Unavailabl e Encounter Details DateTypeDepartmentCare Team (Latest Contact Info)Ladhwyugmos98/24/2025bstract [facility] [address] [facility] [place] [address] Deborah Jones, GERARDO [address] [place] [address] Social History Tobacco UseTypesPacks/DayYears UsedDateSmoking Tobacco: Never Assessed Estimated Date of SvtowxieZlscmvadQvl06/11/2025Based on last menstrual period of 07/29/2024 (Exact Date)Sex and Gender InformationValueDate RecordedSex Assigned at CxzpoYcrtbk58/03/2024 9:38 AM ESTLegal XxmYebapx60/15/2023 6:47 PM EDTGender CxtmzxhuQyxdga77/03/2024 9:38 AM ESTSexual OlhrwqpancsNoiyyfnf02/03/2024 9:38 AM ESTdocumented as of this encounter Plan of Treatment DateTypeDepartmentCare Team (Latest Contact Info)Oafkunhjuiy01/22/2025 9:50 AM ESTPostpartum Visit [facility] [address] [facility] [place] [address] Scooby Alvarado DO [address] [place], [place] [id number] documented as of this encounter Visit Diagnoses Not on filedocumented in this encounter
--- OUTSIDE RECORDS SUMMARY | 2025-04-24 10:06 | XMS_ITS ---
Author Organization [facility] Produ ction (ClinicalSummary Clone) Address Unknown Care Team Providers Care Waiter/Waitress Counter Name Role Phone Unavailable Primary Care Physician Unavailab le Results * [UNITY] ANEUPLOIDY NIPT Performed by: Green [employer] Component Value Range Date Fraction 5.2% 11/17/2024 03:47 pm UTCRh(D) NIPTRhD MDAEOSGR47/26/2025 03:47 pm UTCSex Chromosome AneuploidyNOT NOXJOFSK34/26/2025 03:47 pm UTCMonosomy XLOW RISK <1 in , 03:47 pm UTCTrisomy 13LOW RISK <1 in , 03:47 pm UTCTrisomy 18LOW RISK <1 in , 03:47 pm UTCTrisomy 21LOW RISK <1 in , 03:47 pm UTCFetal BgtBPGZ3411/17/2024 03:47 pm UTCPregnancy JicrfybwfLBYXRNMJX14/26/2025 03:47 pm UTCFor detailed report, see PDFSee PDF 11/17/2024 03:47 pm UTC11/17/2024 03:47 pm UTC Social History Observation Value Start Date End Date
--- OUTSIDE RECORDS SUMMARY | 2025-04-24 10:07 | XMS_ITS | Patient Health Record ---
Author Organization [facility] vices Address [address] [place], [place] [id number] Care Team Providers Care Grain Packer Name Role Phone Pako Mays Unavailable [phone] HuangNajma eddy Unavailable [phone] Allergies No Known Allergies Reason For Referral No Information Medications Medication SIG (Take, Route, Frequency, Duration) Notes Start Date End Date Status Dicyclomine HCl 20 MG 1 tablet Orally Th ree times a day; Duration: 30 day(s) as needed 09/05/2021 Not-TakingPantoprazole Sodium 40 MG1 tablet Orally Once a day; Duration: 30 day(s)as iafcvr4009/05/2021Not-Taking Social History Sex Assigned At : Social History Observation Description Sex Assigned At Female Alcohol Screen (Audit-C) Question Answer Notes Did you have a drink containing alcohol in the p ast year? 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 Stress is when someone feels tense, nervous, anxious, or can't sleep at nightbecause their mind is troubledNot at allpatient entered dataIn the past year have you spent more than 2 nights in a row in a [place], senior living, assisted center, orjuvenile correctional facility?Nopatient entered dataAre you [...] Problem Irritable bowel synd percy with diarrhea (438263118) Irritable bowel syndrome with diarrhea (K58.0) ActiveconfirmedProblemObese class I (798696491960026)BMI 33.0-33.9,adult (Z68.33)ActiveconfirmedProblemBMI 30+ - obesity (122427289)BMI 32.0-32.9,adult (Z68.32)ActiveconfirmedProblemBody mass index 30.00 to 34.99 (233424465137458) BMI 31.0-31.9,adult (Z68.31)ActiveconfirmedProblemVenereal disease screening (168947289)Screening for STD (sexually transmitted disease) (Z11.3)Active confirmedProblemIrritable bowel syndrome (99710872)IBS (irritable bowel syndrome) (K58.9)Activeconfirmed Comment:All labs H [...] and third trimester ., ProblemUrine test negative (994097225)Encounter for test with result negative (V72.41) (V72.41)ActiveconfirmedProblemDepression screening (174854063)Screening for depression (Z13.31)Activeconfirmed Description:Depression screenProblemRemoval of suture (08743797)Visit for suture removal (Z48.02)ActiveconfirmedComment:Sutures removed. Area cleansed with alcohol. Area was bandaged. Pt. advised to RTO for signs/ symptoms of infection including erythema, warmth, discharge from wound, fever or chills.,Problem Bfkyx-wnb-dikdj without malnutrition (758305309)Small for gestational age (764.00) (764.00)ActiveconfirmedProblemInsertion of intrauterine contraceptive device (17984824)Encounter for IUD insertion (Z30.430)Activeconfirmed Comment:uterus retroverted, speculum inserted, cervix swabbed with betadine, single toothed tenaculum applied to anterior lip of cervix, uterus sounded to 8 cm, IUD placed without difficulty, stringscut 2 cm from os, good hemostasis noted, pt tolerated procedure well.,ProblemCandida onychomycosis (B37.2)Active confirmedDescription:Candidiasis of nailsProblemUpper respiratory infection (75210714)URI (upper respiratory infection) (J06.9)Activeconfirmed Comment:alyssa faith observe. otc supp therapy. f/u if sxs got worse,Story:she had sore throat o the last t wo days.no f c n v. she took supportive therapu. wet to Er got some meds., ProblemUrinary tract infection in (254228352)UTI in (O23.40) ActiveconfirmedComment:pt on antibiotics,ProblemDiarrhea (77262763)Diarrhea (R19.7)ActiveconfirmedProblemMass of lower limb (204057316)Mass of right lower leg (R22.41)ActiveconfirmedProblemPoor weight gain of (646.80) (646.80)Activeconfirmed Comment:discussed increase po intake, insufficient weight gain can lead to SGA, IUGR. Monitor weight. will order growth ultrasound, ProblemGynecologic examination (84045423)Visit for gynecologic examination (Z01.419)Activeconfirmed Comment:last pap 10/01/2012 - neg, hpv neg encouraged self breast exams, ProblemInjury (305240129)Contusion of soft tissue (T14.8)Activeconfirmed Comment:REFER to Orthopedic surgery - In [place] on [address],ProblemNormal (26287385)SUPERVISION, OTHER NORMAL (V22.1) (V22.1)Active confirmedProblemDyspepsia (281267215)Dyspepsia (R10.13)ActiveconfirmedProblem Abnormal glucose tolerance in mother complicating , childbirth AND/OR puerperium (98782158)Abnormal glucose tolerance in mother complicating (648.80) (648.80)ActiveconfirmedComment:1 hr GTT - 165, 3 hr normal,Problem Contraceptive intrauterine device check (761161951)IUD check up (Z30.431)Active confirmedComment:strings trimmed as partner feels it during intercourse, discussed risks if trim too short of migration,ProblemAsymptomatic bacteriuria in (00417579)Asymptomatic bacteriuria in (O23.40)Active confirmedProblemBreast lump (57013315)Breast mass seen on mammogram (N63.0) ActiveconfirmedProblemDelivery normal (80731600)Delivery normal (O80)Active confirmed Comment: ended in chart. eds 09/21 had menses, has not resumed intercourse breast feeding desires ocp, ProblemPoor growth affecting management (819252979)Small for gestational age fetus affecting mother, antepartum (O36.5990)ActiveconfirmedProblemNormal (39490430)Encounter for supervision of normal (Z34.90)Active confirmed Comment:GC/CC neg, pap - nl taking PNV 1 hr elevated, 3 hr GTT normal pt had episode of oligohydramnios mehga 5cm, s/p IVF hydration, improved megha, repeat megha normal in setting of IUGR and decreased movement, (pt states has to shake baby to make it move), will induce,Story:22 y.o @ 39.3 wks by 10 wk office US ( CRL 3.64cm on 10/01/2012) not commensurate with L. POB: FTSVD @ 40 wks , male, 8lb2oz, 2009 , @ [facility]. PMH : obesity PSH: denies PGYN: denies Meds: PNV NKDA Sochx: neg x 3., ProblemIUGR - Intrauterine growth retardation (26891336)IUGR (intrauterine growth restriction) (764.90)Activeconfirmed Comment:US done 03/31/13 baby was 33.4 weeks 5lbs 12 oz, 4%ile, megha normal discussed findings with pt, started antepartum testing. Umbilical artery dopplers normal pt complaints of decreased movement, will induce today, ProblemOvarian cyst complicating , antepartum (O34.80)Activeconfirmed Comment:4.7x2.8x3.3 cm on right ovary,ProblemContraception care education (120419581)Family planning advice (Z30.09)Activeconfirmed Comment:pt late for depo window, preg test negative, received depo today discussed importance of compliance,Description:CONTRACEPTIVE COUNSELING NEC ProblemBreast lump (24600680)Left breast lump (611.72) (611.72)Activeconfirmed Comment:Instructed to use all medication as prescribed, obtain diagnostic mammogram, return after mammogram is preformed or sooner as needed is symptoms worsen or do not get better. Patient verbalizes and agrees with plan of care., ProblemOligohydramnios (49696739)Decreased amniotic fluid (O41.00X0)Active confirmed Comment:pt to go to hospital for IV fluid hydration, repeat megha 11.1. Pt to have repeat megha on following sunday 10.7, normal bladder. measuring S< D, will order growth and megha,Description:Oligohydramnios ProblemBreast lump (02663969)Breast mass in female (N63.0)Activeconfirmed Comment:left breast at 10-11 oclock - unchanged in size right breast at 12 oclock - uncahnged in size 2 masses seen on right, 1 mass on left , appear to be benign fibroadenomas, repeat bilateral breastultrasound in 6 months, scheduled this month, pt declines removal, desires to continue to monitor with self breast exams, ProblemCellulitis (722833200)Cellulitis and abscess (L03.90)Activeconfirmed ProblemCyst of graafian follicle (6968007)Cyst of Graafian follicle (N83.00) 05/26/2009Problem resolvedconfirmedDescription:Follicular cyst of ovaryProblem Acute streptococcal pharyngitis (4589642635)Acute streptococcal pharyngitis (J02.0)10/08/2009Problem resolvedconfirmedDescription:Streptococcal sore throat ProblemLeft lower quadrant pain (740930347)Abdominal pain, left lower quadrant (789.04) (789.04)05/13/2009Problem resolvedconfirmedProblemDysmenorrhea (368008112)Adolescent dysmenorrhea (N94.6)06/15/2008Problem resolvedconfirmed Description:DysmenorrheaProblemGeneral examination of patient (507880806)Routine general medical examination at a health care facility (V70.0) (V70.0)07/26/2007 Problem resolvedconfirmedProblemPolycystic bilateral ovaries (disorder) (498426718)Bilateral polycystic ovarian syndrome (E28.2)05/26/2009Problem resolvedconfirmedDescription:Polycystic ovariesProblemSinusitis, acute (461.) (461)05/13/2009Problem resolvedconfirmedProblemUrinary tract infectious disease (05849737)Infection of urinary tract (N39.0)11/01/2009Problem resolvedconfirmed Description:Urinary tract infectionProblemObesity (disorder) (999121037) Overweight and obesity (E66.3)11/01/2007Problem resolvedconfirmedProblemCyst of ovary (70137363)Cyst of ovary (N83.20)05/26/2009Problem resolvedconfirmed Description:Ovarian cyst Vital Signs Heart Rate 80 /min 03/27/2025 Blood pressure jgkolusxl94 mm Hg03/27/2025Height-cm162.56 cm03/27/2025Weight-kg 88 kg03/27/20259182Avkxco38.00 in03/27/2025lood pressure qrisrcur163 mm Hg 03/27/20259168Vftxkv739 lbs1MI33.3 kg/m203/27/2025 Encounters Encounter Location Date Provider Diagnosis [facility] [address] [place] [id number] 07/16/2024 Pako Mays BMI 32.0-32.9,adul t Z68.32 ; Dietary counseling Z71.3 ; Exercise counseling Z71.82 ; Encounter for screening for dental disorders Z13.84 and Encounter for dental examination and cleaning without abnormal findings Z01.20 [facility] [address] [place], [place] [id number] 09/02/2024 Pako Mays Encounter for dent al examination and cleaning without abnormal findings Z01.20 and Obesity, Class I, BMI 30-34.9 E66.811 [facility] [address] [place], [place] [id number] 03/27/2025 Najma Huang BMI 33.0-33.9,adul t Z68.33 [...] Provider Name:Najma Baker [place], 10/02/2025 11:15:00 AM, [address] [place] [address], [phone], Insurance Providers Payer Name Payer Address Payer Phone Subscriber Number Group Number Insured Name Patient Relationship to Insured Coverage Start Date Coverage End Date [facility] [address] [place] [address] [id number] Zac Mosqueda Spouse - patient is the spouse of the insured [facility] [address] [address] [place], [place] [id number], Gregpouse - patient is the spouse of the /19/2022D[facility]them [facility] [address] [address] [place] [phone], JessicaSelf - patient is the sqraupf20 2025[facility] after AnthemPO [address] [place], [place] [id number], JessicaSelrony - patient is the insured 2025 Medical (General) History Medical History History ICD Code Abdominal pain, left lower quadrant (789 .04) Acute streptococcal pharyngitisAdolescent dysmenorrheaBilateral polycystic ovarian syndromeCyst of Graafian follicle, DESCRIPTION: Follicular cyst of ovary Cyst of ovaryInfection of urinary tractAsthmaOverweight and obesityRoutine general medical examination at a health care facility (V70.0)Sinusitis, acute (461.)Surgical History Surgery Date(Month/Year)"
--- OUTSIDE RECORDS SUMMARY | 2025-04-24 10:07 | XMS_ITS | Clinical Summary ---
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 150 each tive Blood Glucose Monitoring Suppl (D-Care Glucometer) w/Device kit Indications:Gestational diabetes mellitus (GDM), antepartum, gestational diabetes method of control unspecified([facility]),Elevated glucose tolerance test1 kit Daily Use four times daily to check FSBS. In the morning prior to breakfast & 1 hour after each meal for a total of 4times daily. 1 kit ctive ProFe 391.3 (180 Fe) MG capsule Take 1 capsule by mouth DailyDiscontinued Active Problems ProblemNoted DateDiagnosed Date28 weeks gestation of ([facility]) 02/16/2025Third trimester ([facility])02/16/2025Estimated Date of EestwsfhXfxzmhhmBjt65/11/2025Based on last menstrual period of 07/29/2024 (Exact Date) Encounters DateTypeDepartmentCare AusfQcgwfehwdbg18/29/2025linisync Result Encounter [facility] External Department Unsolicited Hebert KrysKAYY 04/21/2025 2:20 PM EDTRoutine [facility] [address] [place] [phone] Deborah Kwan PA Third trimester ([facility]); 38 weeks gestation of ([facility])04/21/2025bstract [facility] [address] [place] [address] Scooby Alvarado DO 04/21/2025amboo flowsheet [facility] [address] [place] [address] [phone] Deborah Kwan PA 04/21/20250203Vnkheo48/24/2025bstract [facility] [address] [place] [address] Deborah Jones LPN 04/16/2025Patient Outreach [facility] [address] [place] [address] Deborah Jones LPN 04/14/2025 11:10 AM EDTRoutine [facility] [address] [place] [address] Scooby Alvarado DO Third trimester ([facility]); 37 weeks gestation of ([facility])04/14/20256612Glhpil74/21/2025amboo flowsheet [facility] [address] [place] [address] Scooby Alvarado DO 04/07/2025 1:30 PM EDTRoutine [facility] [address] [place] [address] Deborah Kwan PA Third trimester ([facility]); 36 weeks gestation of ([facility])04/07/2025amboo flowsheet [facility] [address] [place] [address] Deborah Kwan PA 03/31/2025linisync Result Encounter [facility] External Department Unsolicited Krys Ambrosio NP 03/24/2025 10:50 AM EDTRoutine [facility] [address] [place] [address] Krys Ambrosio NP 34 weeks gestation of ([facility]); Third trimester ([facility]); Gestational diabetes mellitus (GDM) in third trimester, gestational diabetes method of control unspecified ([facility])03/24/2025amboo flowsheet [facility] [address] [place] [address] Krys Ambrosio NP 03/24/20255620Lsqfnc05/26/2025bstract [facility] [address] [place] [address] Scooby Alvarado, DO 03/20/2025bstract [facility] [address] [place] [address] Scooby Alvarado, DO 03/10/2025 1:20 PM EDTRoutine [facility] [address] [place] [address] Deborah Kwan PA 32 weeks gestation of ([facility]); Third trimester ([facility])03/10/20254285Nxtfkq66/16/2025Bamboo flowsheet [facility] [address] [place] [address] Deborah Kwan PA 02/25/2025 3:00 PM EDTAncillary Procedure [facility] [address] [place] [address] Size of fetus inconsistent with dates in second trimester ([facility])02/25/2025 Suxjjm5402/16/2025 2:30 PM EDTRoutine [facility] [address] Deborah Kwan PA Size of fetus inconsistent with dates in second trimester ([facility]) (Primary Dx); 28 weeks gestation of ([facility]); Third trimester ([facility])02/16/2025amboo flowsheet [facility] [address] [place] [address] Deborah Kwan PA 02/16/20259225Emmwmn02/22/2025linisync Result Encounter [facility] External Department Unsolicited Scooby Alvarado DO 02/02/2025 2:50 PM EDTRoutine [facility] [address] [place] [address] Scooby Alvarado DO Second trimester ([facility]); 26 weeks gestation of ([facility]); Diabetes mellitus /11/2025amboo flowsheet [facility] [address] [place] [address] [place] [address] Scooby Alvarado DO 02/02/20256850Qnelya45/04/2025 3:00 PM EDTAncillary Procedure [facility] [address] [place] [address] [place] [address] Encounter for follow-up ultrasound of anatomy ([facility])01/26/2025Travel from Last 3 Months Family History Medical HistoryRelationNameCommentsDiabetesFatherDiabetesMotherHypertension MotherDepressionOtherDiabetesOtherHyperlipidemiaOtherHypertensionOtherRelation NameStatusCommentsFatherMotherOther Social History Tobacco UseTypesPacks/DayYears UsedDateSmoking Tobacco: Never Assessed Estimated Date of WoccuouwThgunuedIxv75/11/2025Based on last menstrual period of 07/29/2024 (Exact Date)Sex and Gender InformationValueDate RecordedSex Assigned at WdzihMcffjj39/03/2024 9:38 AM ESTLegal JlsByefxo69/15/2023 6:47 PM EDTGender NttmntbtXbyaaw93/03/2024 9:38 AM ESTSexual OlyctjnxxkzKpczkoyi63/03/2024 9:38 AM EST Last Filed Vital Signs Vital SignReadingTime TakenCommentsBlood Uxwvfuaf481/8210 2:09 PM EDT Pulse--Temperature--Respiratory Rate--Oxygen Saturation--Inhaled Oxygen Concentration--Ecgrku89.1 kg (200 lb 12 oz)04/21/2025 2:09 PM BTFGuzvbp923.6 cm (5' 4 )12/04/2024 10:26 AM EDTBody Mass Index34.46012/04/2024 10:26 AM EDT Plan of Treatment DateTypeDepartmentCare Team (Latest Contact Info)Ovvyzheljrf13/22/2025 9:50 AM ESTPostpartum Visit [facility] [address] [place] [phone] Scooby Alvarado, [address] [place] [address] Health MaintenanceDue DateLast DoneCommentsMMR Vaccines (1 of 1 - Standard series)1992DTaP/Tdap/Td Vaccines (1 - Tdap)1998Varicella Vaccines (1 of 2 - 13+ 2-dose series)2004Hepatitis B Vaccines (1 of 3 - 19+ 3-dose series)2010HPV Vaccines (1 - 3-dose SCDM series)2018COVID-19 Vaccine ( season)502/, 12/16/2020, 11/16/2020Influenza Vaccine (#1)510/04/2024, 04/25/2023, 04/01/2022, Additional history existsCervical Cancer Fhldiwrxu20/12/2030HPV/Lvhctb8412/04/2029Pap Smear12/04/2029 12/04/2024HIB VaccinesAged OutNo longer eligible based on patient's age to complete this topicHepatitis A VaccinesAged OutNo longer eligible based on patient's age to complete this topicIPV VaccinesAged OutNo longer eligible based on patient's age to complete this topicMeningococcal B VaccineAged OutNo longer eligible based on patient's age to complete this topicMeningococcal VaccineAged OutNo longer eligible based on patient's age to complete this topicPneumococcal Vaccine: Pediatrics (0 to 5 Years) and At-Risk Patients (6 to 64 Years)Aged Out No longer eligible based on patient's age to complete this topicRotavirus VaccinesAged OutNo longer eligible based on patient's age to complete this topic Procedures Procedure NamePriorityDate/TimeAssociated DiagnosisCommentsUS OB BPP W NON-JONNUB4204/22/2025 7:22 AM EDT POCT URINALYSIS BOKODOXMPbvueeo34/28/2025 2:14 PM EDT Third trimester ([facility]) POCT URINALYSIS HHXIIJOSMstakjh85/21/2025 11:12 AM EDT 37 weeks gestation of ([facility]) POCT URINALYSIS EWLWAFXIMkmtxwf93/14/2025 1:41 PM EDT Third trimester ([facility]) US OB BPP W NON-BCSKHV1103/31/2025 5:44 PM EDT POCT URINALYSIS IQXJOGLIEsmfsqr03/30/2025 11:11 AM EDT Third trimester ([facility]) POCT URINALYSIS BESJMWTKGpzrgen91/16/2025 1:32 PM EDT 32 weeks gestation of ([facility]) Third trimester ([facility]) US OB FOLLOW UP TRANSABDOMINAL RUFXIUDLZebgeql53/03/2025 3:22 PM EDT Size of fetus inconsistent with dates in second trimester ([facility]) ALL CBC WITH AUTO NRXOBqpcwfp45/22/2025 7:06 AM EDT POCT URINALYSIS OGSOUSOCMhjsrzr81/11/2025 3:06 PM EDT Second trimester ([facility]) US OB LIMITED 1+ EENAFPVKpxdoab10/04/2025 3:47 PM EDT Encounter for follow-up ultrasound of anatomy ([facility]) PAP QYPTMDvdioai26/12/2025 12:00 AM EDTfrom Last 3 Months or Most Recently Relevant to Health Maintenance Results * US OB BPP W NON-STRESS (04/22/2025 7:22 AM EDT) Only the most recent of2 resultswithin the time period is included. Anatomical RegionLateralityModalityOtherSpecimen (Source)Anatomical Location / LateralityCollection Method / VolumeCollection TimeReceived Time04/22/2025 7:22 AM EDT Narrative 04/22/2025 7:24 AM EDT [facility] ?[address] ? [place] [address] ? Ultrasound Report ? Signed ? Patient: PRISCILLA MOSQUEDA ? MR#: [id number] ?? : 1990 ?Acct:[id number] ?? Age/Sex: 34 / F ?ADM Date: 04/21/25 ?? Loc: US ? Attending Dr: Krys Ambrosio ? Ordering Physician: Krys Ambrosio ?? Date of Service: 04/21/25 ?? Procedure(s): US OB BPP w non-stress ?? Accession Number(s): [id number] ? cc: Krys Ambrosio; [facility] ? [facility] ? [address] ? [place] [address] ? Patient Name: ?? PRISCILLA ??MOSQUEDA ? MRN: [id number] ? date: 1990 ?Sex: F ?? Assigned Patient Location: [facility] ?? Current Patient Location: ? Accession/Order Number: [id number] ?? Exam Date: 04/21/2025 ??13:04 ?Report Date: 04/22/2025 ??07:22 ? At the request of: ?? KRYS ??HEBERT ? Procedure: ??US OB BPP w non-stress [...] M.D. ??04/22/2025 7:22 AM ? Dictation Location: [facility]--02 ? Electronically authenticated by: [id number] ??Y ?? Date: 04/22/2025 ??07:22 ? Dictated By: ?Sarita Evangelista M.D. ? Signed By: ?04/22/25723 ? DD/ 1 ? TD/TT: ? Brush Maker: Procedure Note Radiology, Radiologist, MD - 04/22/2025 [facility] [place] [id number] Ultrasound Report Signed Patient: PRISCILLA MOSQUEDAMR#: [id number] : 1990Acct:[id number] Age/Sex: 34 / FADM Date: 04/21/25 Loc: US Attending Dr: Krys Ambrosio Ordering Physician: Krys Ambrosio Date of Service: 04/21/25 Procedure(s): US OB BPP w non-stress Accession Number(s): [id number] cc: Krys Ambrosio; [facility] The [address] [address] Patient Name: PRISCILLA MOSQUEDA MRN: [id number] date: 1990 Sex: F Assigned Patient Location: [facility] Current Patient Location: Accession/Order Number: [id number] Exam Date: 04/21/2025 13:04 Report Date: 04/22/2025 07:22 At the request of: KRYS AMBROSIO Procedure: [...] 5th percentile is 7.2 cm. Total score: 8/8 US/US OB BPP w non-stress IMPRESSION: NORMAL BIOPHYSICAL PROFILE. BORDERLINE OLIGOHYDRAMNIOS. Impression dictated by: Sarita Evangelista M.D. 04/22/2025 7:22 AM Dictation Location: [place] [address] Electronically authenticated by: [id number] Y Date: 7:22 Dictated By: Sarita Evangelista M.D. Signed By:04/22/25723 DD/ 1 TD/TT: Brush Maker: Authorizing ProviderResult TypeResult StatusKrys Ambrosio NPCLINISYNC IMAGING Final Result * POCT urinalysis dipstick manually resulted (04/21/2025 2:14 PM EDT) Only the most recent of6 resultswithin the time period is included. ComponentValueRef RangeTest MethodAnalysis TimePerformed AtPathologist Signature Color, UAYellowClarity, UAClearGlucose, UANegativeNegative - 2000(110) ++++ mg/dLBilirubin, UANegativeNegative - 4(70) +++ mg/dLKetones, UANegativeNegative - 160(16) ++++ mg/dLSpec Grav, UA1.0101 - 1.03Blood, UANegativeNegative - 50 Celestino/mcLpH, UA6.05 - 9Protein, UANegativeNegative - 2000(20) ++++ mg/dL Urobilinogen, UA0.20.2 - 12 mg/dLLeukocytes, UANegativeNegative - 500+++ Dodie/mcL Nitrite, UANegativeNegative - PositiveSpecimen (Source)Anatomical Location / LateralityCollection Method / VolumeCollection TimeReceived JetcHfcba95/28/2025 2:14 PM EDT Narrative Authorizing ProviderResult TypeResult StatusAmy [facility] TEST ENTER/EDIT ORDERABLESFinal Result * US OB follow up transabdominal [...] Logan Caal MD Authorizing ProviderResult TypeResult StatusAmy [facility] US PROCEDURES Final Result * (ABNORMAL) ALL CBC WITH AUTO DIFF (02/13/2025 7:06 AM EDT)ComponentValueRef RangeTest MethodAnalysis TimePerformed AtPathologist SignatureTBH WBC9.74.0 - 11.0 10 3/uLTBHTBH RBC4.18(L)4.20 - 5.40 10 6/uLTBHTBH HGB10.6(L)12.0 - 16.0 g/dLTBHTBH HCT33.1(L)36.0 - 48.0 %TBHTBH MCV79.2(L)81.0 - 99.0 fLTBHTBH MCH 25.4(L)26.7 - 34.0 pgTBHTBH MCHC32.029.9 - 35.2 g/dLTBHTBH RDW15.011.0 - 15.0 %TBHTBH WAG758859 - 450 10 3/uLTBHTBH MPV10.09.5 - 13.5 [...] 02/13/2025 7:22 AM EDT Authorizing ProviderResult TypeResult StatusCorey Jenny DOCLINISYNCFinal Result Performing OrganizationAddressCity/State/ZIP CodePhone Number [facility] * US OB limited 1+ fetuses (01/26/2025 [...] BY: Logan Caal MD Authorizing ProviderResult TypeResult StatusCorey Jenny DOI OB US PROCEDURES Final Result * Pap Smear (12/04/2024 12:00 AM EDT)Specimen (Source)Anatomical Location / LateralityCollection Method / VolumeCollection TimeReceived TimeSwabCervical swab / Unknown Narrative Authorizing ProviderResult TypeResult StatusCorey Jenny DOLAB CYTOLOGY ORDERABLESFinal ResultPerforming OrganizationAddressCity/State/ZIP CodePhone Number EXTERNAL LAB from Last 3 Months or Most Recently Relevant to Health Maintenance Insurance
--- OUTSIDE RECORDS SUMMARY | 2025-04-24 10:07 | XMS_ITS | Encounter Summary ---
Author Organization [facility] Address [address] [place] [address] Care Team Providers Care Drug Abuse Program Coordinator Name Role Phone Unavailable Primary Care Provider Unavailabl e Encounter Details DateTypeDepartmentCare Team (Latest Contact Info)Mgwmgyfgzgb99/21/2025Travel Social History Tobacco UseTypesPacks/DayYears UsedDateSmoking Tobacco: Never Assessed Estimated Date of PftfbkkyWywqmyqnXbe70/11/2025Based on last menstrual period of 07/29/2024 (Exact Date)Sex and Gender InformationValueDate RecordedSex Assigned at GapplRwfhix21/03/2024 9:38 AM ESTLegal VobJkdswz48/15/2023 6:47 PM EDTGender HnmsmfquYfodqw18/03/2024 9:38 AM ESTSexual NwvbjmginpoSynbidps23/03/2024 9:38 AM ESTdocumented as of this encounter Plan of Treatment DateTypeDepartmentCare Team (Latest Contact Info)Xlrkqlcvuwq79/22/2025 9:50 AM ESTPostpartum Visit [facility] [place] [facility] [address] [place] [address] Scooby Alvarado DO [address] [place] [address] documented as of this encounter Visit Diagnoses Not on filedocumented in this encounter
--- OUTSIDE RECORDS SUMMARY | 2025-04-24 10:07 | XMS_ITS | Encounter Summary ---
Author Organization [facility] Address [address] [place] [address] Care Team Providers Care Core Shaper Name Role Phone Unavailable Primary Care Provider Unavailabl e Encounter Details DateTypeDepartmentCare Team (Latest Contact Info)Ujjzgwxusyk19/21/2025amboo flowsheet [facility] [address] [place] [address] [place] [address] Scooby Alvarado DO [address] [place] [address] [address], [place] [address] Social History Tobacco UseTypesPacks/DayYears UsedDateSmoking Tobacco: Never Assessed Estimated Date of PlgyydvfAbmgiccqXpr86/11/2025Based on last menstrual period of 07/29/2024 (Exact Date)Sex and Gender InformationValueDate RecordedSex Assigned at TckykDhyvap81/03/2024 9:38 AM ESTLegal PjeUwmuin42/15/2023 6:47 PM EDTGender DgkabwgsGmhlqd96/03/2024 9:38 AM ESTSexual MgnvohazmrxZgumgkan28/03/2024 9:38 AM ESTdocumented as of this encounter Plan of Treatment DateTypeDepartmentCare Team (Latest Contact Info)Nubxqchcpuk91/22/2025 9:50 AM ESTPostpartum Visit [facility] [address] [address] Scooby Alvarado DO [address] [place] [address] [place], [facility] documented as of this encounter Visit Diagnoses Not on filedocumented in this encounter
--- OUTSIDE RECORDS SUMMARY | 2025-04-24 10:08 | XMS_ITS | CCD ---
Author Organization [facility] CliniSyut Care Team Providers Care Kitchen Stewardess Name Role Phone RENAY OTOOLE Attending Unavailable [...] DR NONE LISTED Primary Care Unavaila ble HIGHLANDER, NAT Consulting Unavailable SYDNIE, RENAY Admitting Unavailable [...] Attending Unavailable JENNY, DR YOUNG Consulting Unavailable Ajith, Renita Unavailable Kym Masterson Attending Unavailable Kym Masterson [...] ALVARADO Attending Unavailable SCOOBY ALVARADO Attending Unavailable AQUILES, DEBORAH Attending Unavailable JENNY, SCOOBY Attending Unavailable AQUILES, DEBORAH Attending Unavailable AQUILES, DEBORAH Referring Unavailable AQUILES, DEBORAH Attending Unavailable JEM AMBROSIO Attending Unavailable AQUILES, DEBORAH Attending Unavailable JENNY, SCOOBY Attending Unavailable AQUILES, DEBORAH Attending Unavailable Mich SULTANA, Jihan Antonio Unavailable Medications Current Medications MedicationDrug Class(es)DatesSig (Normalized)Sig (Original)Blood Glucose Monitoring Suppl (D-Care Glucometer) w/Device kit (20 sources)Start: 11-13-2024 End: 78-05-6835Lzihw Glucose Monitoring Suppl (D-Care Glucometer) w/Device kit Indications: Gestational diabetes mellitus (GDM), antepartum, gestational diabetes method of control unspecified (HHS-HCC) , Elevated glucose tolerance test 1 kit Daily Use four times daily to check FSBS. In the morning prior to breakfast & 1 hour after each meal for a total of 4times daily. 1 kit 11/13/2024 11/13/2025 ActiveStart: 11-13-2024 End: 08-19-5541Okusi Glucose Monitoring Suppl (D-Care Glucometer) w/Device kit Indications: Gestational diabetes mellitus (GDM), antepartum, gestational diabetes method of control unspecified , Elevated glucose tolerance test 1 kit Daily Use four times daily to check FSBS. In the morning prior to breakfast & 1 hour after each meal for a total of 4times daily. 1 kit 11/13/2024 11/13/2025 ActiveEthinyl Estradiol / norgestimate (3 sources)Progestin, EstrogenStart: 20-02-3682qvbn 1 tablet by mouth once daily norgestimate-ethinyl estradioL (ORTHO-CYCLEN) 0.25-35 mg-mcg per tablet Indications: Encounter for contraceptive management, unspecified type Take 1 tablet by mouth daily. 56 tablet 1 05/11/2020 Activeisopropyl alcohol 0.7 ml/ml medicated pad (20 sources)Start: 27-01-9901Ntoptsd Swabs (Alcohol Prep Pad) 70 % pads Indications: Gestational diabetes mellitus (GDM), antepartum, gestational diabetes method of control unspecified (HHS-HCC) , Elevated glucose tolerance testApply 1 Pad topically Daily Use four times daily to check FSBS. 150 each 3 11/13/2024 ActivePrenatal Xomtbnrg-Rob-Ta-FA ( 1 + IRON PO) (20 sources) Abakrodh-Vap-Il-FA ( 1 + IRON PO) Take by mouth Active Completed/Discontinued Medications MedicationDrug Class(es)DatesSig (Normalized)Sig (Original)polysaccharide iron complex 391 mg oral capsule (20 sources)Start: 02-04-2024 End: 37-48-6451kklm 1 capsule by mouth once dailyProFe 391.3 (180 Fe) MG capsule Take 1 capsule by mouth Daily 02/04/2024 04/21/2025 Discontinued Problems Active Problems Problem ClassificationProblemDateDocumented DateEpisodic/ChronicAbdominal pain (1 source)Abdominal painOnset: 30-97-1936KuisxshlNwsvfr of cervix (1 source)Low grade squamous intraepithelial lesion on cytologic smear of cervix (LGSIL); Translations: [LGSIL ON CYTOLOGIC SMEAR OF CERVIX]Onset: 11-11-2021 EpisodicDiabetes mellitus without complication (6 sources)Other abnormal glucose; Translations: [Abnormal glucose tolerance test]Onset: 57-61-3756SrplreyhAymbgqbw or abnormal glucose tolerance complicating ; childbirth; or the puerperium (8 sources)Gestational diabetes mellitus, class A>1<; Translations: [Gestational diabetes mellitus in , diet controlled]Onset: EpisodicHemorrhage during ; abruptio placenta; placenta previa (1 source)Antepartum hemorrhage, unspecified, unspecified trimester; Translations: [Antepartum hemorrhage, unspecified, unspecified trimester]Onset: 11-79-4030CmmysaxqDmurtnlxliaxd and screening for infectious disease (3 sources)Contact with and (suspected) exposure to other viral communicable diseases; Translations: [Patient encounter status]Onset: 07-09-2021 Resolved: 47-90-8529ZcgytpgkHbylmtofm disorders (6 sources)Secondary amenorrhea; Translations: [Missed period]Onset: 01-28-2021 ChronicOther complications of ; puerperium affecting management of mother (3 sources)Obesity complicating childbirth; Translations: [OBESITY COMPLICATING CHILDBIRTH]Onset: 90-49-5688CnvnobgJtjij complications of (4 sources)Anemia complicating , unspecified trimester; Translations: [ANEMIA COMP UNS TRIMESTER]Onset: 55-33-5411AveoqkeNvsvj complications of (2 sources) size does not accord with dates; Translations: [Uterine size- date discrepancy, second trimester]63-63-4953IygblorrIpkla female genital disorders (1 source)Vaginal bleedingOnset: 45-76-5128YnlqipjDbjhg nutritional; endocrine; and metabolic disorders (1 source)Obesity, unspecified; Translations: [OBESITY UNSPECIFIED]Onset: 39-29-4560GbvpptxSymhx and delivery including normal (20 sources)Encounter for routine follow-up; Translations: [Single live ]Onset: 19-25-4069ShiimqjkRzrbe screening for suspected conditions (not mental disorders or infectious disease) (14 sources)Encounter for screening for malignant neoplasm of cervix; Translations: [Encounter for screening, unspecified]Onset: 55-18-5324Lqlvqigc Residual codes; unclassified (1 source)High risk heterosexual behavior; Translations: [High risk heterosexual behavior]Onset: 17-50-8508XvfbcekpTyduvsgc codes; unclassified (2 sources)Gestation period, 15 weeks; Translations: [15 weeks gestation of ]68-95-9071CtwlcdgnBvghgjsx codes; unclassified (2 sources)Gestation period, 18 weeks; Translations: [18 weeks gestation of ]17-02-0817SlxmrpswAnwjgkea codes; unclassified (2 sources)Gestation period, 22 weeks; Translations: [22 weeks gestation of ]34-72-9143UxfradnkBwildasm codes; unclassified (2 sources)Gestation period, 26 weeks; Translations: [26 weeks gestation of ]83-00-1814YgzrrtauOftwfwie codes; unclassified (20 sources)Gestation period, 28 weeks; Translations: [28 weeks gestation of ]Onset: 304557-45-3862LovurddwJtugeotm codes; unclassified (2 sources)Gestation period, 32 weeks; Translations: [32 weeks gestation of ]64-53-6840QenhunkbPgoflrfg codes; unclassified (2 sources)Gestation period, 34 weeks; Translations: [34 weeks gestation of ]69-14-8623DsofvbldHxmnyfqg codes; unclassified (2 sources)Gestation period, 36 weeks; Translations: [36 weeks gestation of ]48-85-5785FcbctdnqGlwzpowv codes; unclassified (2 sources)Gestation period, 37 weeks; Translations: [37 weeks gestation of ]67-53-4267XpailcpyYqraxiiu codes; unclassified (2 sources)Gestation period, 38 weeks; Translations: [38 weeks gestation of ]77-78-7561VveihjpgFiupgxaahyi; intervertebral disc disorders; other back problems (1 source)BackacheOnset: 41-94-2883SrlonqruMjkwstryhtas (1 source)CONTACT W/AND (SUSP) EXPOS COVID-19; Translations: [CONTACT W/AND (SUSP) EXPOS COVID-19]Onset: 43-44-5775Gblheyrmljak (1 source)Vaginal Bleeding - 7wks pregOnset: 12-19-2023 Past or Other Problems Problem ClassificationProblemDateDocumented DateEpisodic/ChronicDeficiency and other anemia (1 source)Anemia, unspecified; Translations: [ANEMIA UNSPECIFIED]Onset: 68-86-8761HbkfqizgBC-related trauma to perineum and vulva (1 source)Other specified trauma to perineum and vulva; Translations: [OTHER SPEC TRAUMA PERINEUM AND VULVA]Onset: 42-78-1074YmsmrsbxMruco complications of (1 source)Maternal care for other known or suspected poor growth, third trimester, not applicable or unspecified; Translations: [MAT CARE OTH WY FTL GRTH 3RD TM UNS]Onset: 02-67-8120UjqprbvqTuwze complications of (4 sources)Decreased movements, third trimester, not applicable or unspecified; Translations: [DECR MOVEMENTS 3RD TRI NA/UNS]Onset: 01-19-7714AosxejmnJbaqj complications of (4 sources)Supervision of other high risk pregnancies, third trimester; Translations: [SUP OTH HIGH RISK 3RD TRI]Onset: 62-56-9211Xulxonuh Other complications of (4 sources)Other specified related conditions, unspecified trimester; Translations: [OTH SPEC PREG RELATED COND UNS TRI]Onset: 02-09-2249FxsrdhhtPrjqi complications of (4 sources)Supervision of other high risk pregnancies, unspecified trimester; Translations: [SUP OTH HIGH RISKPREGNANCY UNS TRI]Onset: 66-99-5012XnsafdmmLxpqz female genital disorders (1 source)Other specified noninflammatory disorders of vagina; Translations: [OTH SPEC NONINFLAMMATORY D/O VAGINA]Onset: 16-27-4873XqlrjsjeTwnbm upper respiratory infections (2 sources)Acute upper respiratory infection, unspecified; Translations: [Acute pharyngitis, unspecified]Onset: 07-09-2021 Resolved: 79-10-5087WykyspvpRvdlewem codes; unclassified (1 source)39 weeks gestation of ; Translations: [39 WEEKS GESTATION OF ]Onset: 59-04-0880FkawnfpmWbjbvvfg codes; unclassified (1 source)36 weeks gestation of ; Translations: [36 WEEKS GESTATION OF ]Onset: 29-90-1346HxpnmksrLlgurgsv codes; unclassified (1 source)34 weeks gestation of ; Translations: [34 WEEKS GESTATION OF ]Onset: 94-08-6380ElgveoriZrmfwjwt codes; unclassified (1 source)35 weeks gestation of ; Translations: [35 WEEKS GESTATION OF ]Onset: 53-33-8218UjfaczikFpwdbacq codes; unclassified (1 source)33 weeks gestation of ; Translations: [33 WEEKS GESTATION OF ]Onset: 23-51-2371LfbrlzxpWyrpaobm codes; unclassified (1 source)Weeks of gestation of not specified; Translations: [WEEKS GESTATION NOT SPEC]Onset: 62-13-3396ZjdrbjruQtqieujh codes; unclassified (1 source)24 weeks gestation of ; Translations: [24 WEEKS GESTATION OF ]Onset: 70-13-0913TbrnafnlZqzsjhny codes; unclassified (4 sources)16 weeks gestation of ; Translations: [16 WEEKS GESTATION OF ]Onset: 50-67-5463RavcwedqEyvcssalpcw (4 sources)Complete or unspecified spontaneous without complication; Translations: [Miscarriage]Onset: 128403-45-3175Yterujqf Results Test NameValueInterpretationReference RangeFacilityUS OB BPP W NON-STRESS on 43-16-[place]349[place] [id number] Ultrasound Report Signed Patient: PARIS MOSQUEDA MR#: [id number] : 1990 Acct:[id number] Age/Sex: 34 / F ADM Date: 04/21/25 Loc: US Attending Dr: Jem Ambrosio Ordering Physician: Jem Ambrosio Date of Service: 04/21/25 Procedure(s): US OB BPP w non-stress Accession Number(s): [id number] cc: Jem Ambrosio; [place] [address] Patient Name: PARIS MOSQUEDA MRN: [facility]:[id number] date: 1990 Sex: F Assigned Patient Location: [facility] Current Patient Location: Accession/Order Number: [id number] Exam Date: 04/21/2025 13:04 Report Date: 04/22/2025 07:22 At the request of: JEM AMBROSIO Procedure: US OB BPP w non-stress BIOPHYSICAL PROFILE: CLINICAL INFORMATION: Gestational diabetes mellitus COMPARISON: 04/14/2025 There is a single live intrauterine gestation in cephalic presentation. The reported gestational age is 38 weeks 0 days. The heart rate measures 129 beats per minute. FINDINGS: TONE: 1 or more episodes of activity extension and flexion of extremity or opening and closing of the hand [Y] 2/2 GROSS BODY MOVEMENTS: 3 or more discrete body or limb movements [Y] 2/2 BREATHING MOVEMENTS: 1 or more episodes of breathing lasting at least 30 seconds [Y] 2/2 JEANNINE: A single deepest vertical pocket of amniotic fluid greater than 2 cm [Y] 2/2 JEANNINE: 8.0 cm. The 5th percentile is 7.2 cm. Total score: 8/8 US/US OB BPP w non-stress IMPRESSION: NORMAL BIOPHYSICAL PROFILE. BORDERLINE OLIGOHYDRAMNIOS. Impression dictated by: Sarita Evangelista M.D. 04/22/2025 7:22 AM Dictation Location: [place] [address] Electronically authenticated by: [id number] Y Date: 04/22/2025 07:22 Dictated By: Sarita Evangelista M.D. Signed By: 04/22/25723 DD/ 1 TD/TT: Biztalk Software Developer:ROBERTadiologascencion, Radiologist, - 04/22/2025 [place] [address] Ultrasound Report Signed Patient: PARIS MOSQUEDA MR#: [id number] : 1990 Acct:[id number] Age/Sex: 34 / F ADM Date: 04/21/25 Loc: US Attending Dr: Jem Ambrosio Ordering Physician: Jem Ambrosio Date of Service: 04/21/25 Procedure(s): US OB BPP w non-stress Accession Number(s): [id number] cc: Jem Ambrosio; [facility] The [place] [address] Patient Name: PARIS MOSQUEDA MRN: [facility]:[id number] date: 1990 Sex: F Assigned Patient Location: [facility] Current Patient Location: Accession/Order Number: [id number] Exam Date: 04/21/2025 13:04 Report Date: 04/22/2025 07:22 At the request of: JEM AMBROSIO Procedure: US OB BPP w non-stress BIOPHYSICAL PROFILE: CLINICAL INFORMATION: Gestational diabetes mellitus COMPARISON: 04/14/2025 There is a single live intrauterine gestation in cephalic presentation. The reported gestational age is 38 weeks 0 days. The heart rate measures 129 beats per minute. FINDINGS: TONE: 1 or more episodes of activity extension and flexion of extremity or opening and closing of the hand [Y] 2/2 GROSS BODY MOVEMENTS: 3 or more discrete body or limb movements [Y] 2/2 BREATHING MOVEMENTS: 1 or more episodes of breathing lasting at least 30 seconds [Y] 2/2 JEANNINE: A single deepest vertical pocket of amniotic fluid greater than 2 cm [Y] 2/2 JEANNINE: 8.0 cm. The 5th percentile is 7.2 cm. Total score: 8/8 US/US OB BPP w non-stress IMPRESSION: NORMAL BIOPHYSICAL PROFILE. BORDERLINE OLIGOHYDRAMNIOS. Impression dictated by: Sarita Evangelista M.D. 04/22/2025 7:22 AM Dictation Location: [place] [address] Electronically authenticated by: [id number] Y Date: 04/22/2025 07:22 Dictated By: Sarita Evangelista M.D. Signed By: 04/22/25723 DD/ 1 TD/TT: Biztalk Software Developer: SHERLY HealthcareRadiology Study observation (narrative)NOMS HealthcareUS OB BPP W NON-STRESSOrdered By: Radiologist Radiology on 60-60-3450OYNC Healthcare Work Phone: Urinalysis macro (dipstick) panel (U)on 04-21-2025 Bilirubin, UANegativeNegative - 4(70) +++ mg/dLNOMS HealthcareBlood, UANegative Negative - 50 Celestino/mcLNOMS HealthcareClarity, UAClearNOMS HealthcareColor, UA YellowNOMS HealthcareGlucose, UANegativeNegative - 1999(110) ++++ mg/dLNOMS HealthcareInterpretation and review of laboratory resultsNormalNOND Healthcare Ketones, UANegativeNegative - 160(16) ++++ mg/dLNOMS HealthcareLeukocytes, UA NegativeNegative - 500+++ Dodie/mcLNOMS HealthcareNitrite, UANegativeNegative - PositiveNOMS HealthcarepH, UA6.05 - 9NOMS HealthcareProtein, UANegativeNegative - 2000(20) ++++ mg/dLNOMS HealthcareSpec Grav, UA1.0101 - 1.03N[facility]S Healthcare Urobilinogen, UA0.20.2 - 12 mg/dLNOMS HealthcareNOMS HealthcareUrinalysis macro (dipstick) panel (U)on 04-94-5093Dhsgipmpu, UA2+Negative - 4(70) +++ mg/dLNOMS HealthcareBlood, UANegativeNegative - 50 Celestino/mcLNOMS HealthcareClarity, UAClear NOMS HealthcareColor, UAYellowNOMS HealthcareGlucose, UANegativeNegative - 1999(110) ++++ mg/dLNOMS HealthcareInterpretation and review of laboratory resultsAbnormalNOMS HealthcareKetones, UAPositiveNegative - 160(16) ++++ mg/dL NOMS HealthcareLeukocytes, UA3+Negative - 500+++ Dodie/mcLNOMS HealthcareNitrite, UANegativeNegative - PositiveNOMS HealthcarepH, UA6.05 - 9N[facility] Protein, UA1+Negative - 2000(20) ++++ mg/dLNOMS HealthcareSpec Grav, UA1.0251 - 1.03NOMS HealthcareUrobilinogen, UA>=8.00.2 - 12 mg/dLNOMS HealthcareNOMS HealthcareUrinalysis macro (dipstick) panel (U)on 97-49-4858Cormfzzxn, UA NegativeNegative - 4(70) +++ mg/dLNOMS HealthcareBlood, UANegativeNegative - 50 Celestino/mcLNOMS HealthcareClarity, UAClearNOMS HealthcareColor, UAYellowNOMS HealthcareGlucose, UANegativeNegative - 2000(110) ++++ mg/dLNOMS Healthcare Interpretation and review of laboratory resultsNormalNOMS HealthcareKetones, UA NegativeNegative - 160(16) ++++ mg/dLNOMS HealthcareLeukocytes, UANegative Negative - 500+++ Dodie/mcLNOMS HealthcareNitrite, UANegativeNegative - Positive NOMS HealthcarepH, UA6.05 - 9NOMS HealthcareProtein, UANegativeNegative - 2000(20) ++++ mg/dLNOMS HealthcareSpec Grav, UA1.0101 - 1.03NOND Healthcare Urobilinogen, UA0.20.2 - 12 mg/dLNOMS HealthcareNOMS HealthcareUS OB BPP W NON-STRESSon 18-64-7691[place] [address] Ultrasound Report Signed Patient: PARIS MOSQUEDA MR#: [id number] : 1990 Acct:[id number] Age/Sex: 34 / F ADM Date: 03/31/25 Loc: US Attending Dr: Jem Ambrosio Ordering Physician: Jem Ambrosio Date of Service: 03/31/25 Procedure(s): US OB BPP w non-stress Accession Number(s): [id number] cc: Jem Ambrosio; [place] [id number] Patient Name: PARIS MOSQUEDA MRN: [id number] date: 1990 Sex: F Assigned Patient Location: [facility] Current Patient Location: Accession/Order Number: [id number] Exam Date: 03/31/2025 12:57 Report Date: 03/31/2025 17:44 At the request of: JEM AMBROSIO Procedure: US OB BPP w non-stress Ultrasound biophysical profile INDICATION: Gestational diabetes FINDINGS/ IMPRESSION: Cephalic position. 8/ 8 score biophysical profile. JEANNINE measures 7.9 cm which is borderline oligohydramnios. heart rate 152 beats per minutes. Impression dictated by: Nito Chong M.D. 03/31/2025 5:44 PM Dictation Location: [place] [address] Electronically authenticated by: [id number] Y Date: 03/31/2025 17:44 Dictated By: Nito Chong M.D. Signed By: 03/31/251746 DD/ 43 TD/TT: Biztalk Software Developer:GHADAHRadiology, Radiologist, MD - 03/31/2025 [place] [address] Ultrasound Report Signed Patient: PARIS MOSQUEDA MR#: [id number] : 1990 Acct:[id number] Age/Sex: 34 / F ADM Date: 03/31/25 Loc: US Attending Dr: Jem Ambrosio Ordering Physician: Jem Ambrosio Date of Service: 03/31/25 Procedure(s): US OB BPP w non-stress Accession Number(s): [id number] cc: Jem Ambrosio; [address] [address] Patient Name: PARIS MOSQUEDA MRN: [id number] date: 1990 Sex: F Assigned Patient Location: [facility] Current Patient Location: Accession/Order Number: [id number] Exam Date: 03/31/2025 12:57 Report Date: 03/31/2025 17:44 At the request of: JEM AMBROSIO Procedure: US OB BPP w non-stress Ultrasound biophysical profile INDICATION: Gestational diabetes FINDINGS/ IMPRESSION: Cephalic position. 8/ 8 score biophysical profile. JEANNINE measures 7.9 cm which is borderline oligohydramnios. heart rate 152 beats per minutes. Impression dictated by: Nito Chong M.D. 03/31/2025 5:44 PM Dictation Location: [facility] Electronically authenticated by: [id number] Y Date: 03/31/2025 17:44 Dictated By: Nito Chong M.D. Signed By: 03/31/251746 DD/ 43 TD/TT: Biztalk Software Developer: SHERLY HealthcareRadiology Study observation (narrative)[facility] MariselaUS OB BPP W NON-STRESSOrdered By: Radiologist Radiology on 13-87-0192NJNUSal[facility] Work Phone: Urinalysis macro (dipstick) panel (U)on 03-24-2025 Bilirubin, UANegativeNegative - 4(70) +++ mg/dLNOMS HealthcareBlood, UANegative Negative - 50 Celestino/mcLNOMS HealthcareClarity, UAClearNOND HealthcareColor, UA YellowNOMS HealthcareGlucose, UANegativeNegative - 2000(110) ++++ mg/dLNOND HealthcareInterpretation and review of laboratory resultsAbnormalNOMosaic [facility] St[facility] Ketones, UANegativeNegative - 160(16) ++++ mg/dLNOND HealthcareLeukocytes, UA TraceNegative - 500+++ Dodie/mcLNOMS HealthcareNitrite, UANegativeNegative - PositiveNOMS HealthcarepH, UA65 - 9NOMS HealthcareProtein, UATraceNegative - 2000(20) ++++ mg/dLNOMS HealthcareSpec Grav, UA1.021 - 1.03N[facility]S Healthcare Urobilinogen, UA2.00.2 - 12 mg/dLNOMS HealthcareNOMS HealthcareUrinalysis macro (dipstick) panel (U)on 27-86-1944Nuptasjmu, UAPositiveNegative - 4(70) +++ mg/dL NOMS HealthcareBlood, UAPositiveNegative - 50 Celestino/mcLNOMS HealthcareClarity, UA ClearNOMS HealthcareColor, UAAmberNOND HealthcareGlucose, UANegativeNegative - 2000(110) ++++ mg/dLNOND HealthcareInterpretation and review of laboratory resultsAbnormalNOMS HealthcareKetones, UAPositiveNegative - 160(16) ++++ mg/dL NOMS HealthcareLeukocytes, UAPositiveNegative - 500+++ Dodie/mcLNOND Healthcare Nitrite, UANegativeNegative - PositiveNOMS HealthcarepH, UA65 - 9[facility] Protein, UAPositiveNegative - 2000(20) ++++ mg/dLNOND HealthcareSpec Grav, UA 1.031 - 1.03NOND HealthcareUrobilinogen, UA1.00.2 - 12 mg/dLNOND HealthcareNOND HealthcareUS OB FOLLOW UP TRANSABDOMINAL APPROACHon 92-03-9118LD OB FOLLOW UP TRANSABDOMINAL APPROACHFINDINGS: A single, [...] Delivery: 05/05/25 Gestational Age as of 02/16/2025: 87u0kWZG CBC WITH AUTO DIFFon 02-13-2025 BASOPHILS ABSOLUTE ZMGG3WYRV HealthcareBasophils/100 WBC (Bld)0.4 %0.2 - 2.0 % NOMS [facility] HospitalEosinophils/100 WBC (Bld)1.5 %0.9 - 7.0 %[facility]OMCameron [facility] Erythrocyte distribution width (RBC) [Ratio]15 %11.0 - 15.0 %[facility]Camer[facility] Center Hematocrit (Bld) [Volume fraction]33.1 %Low36.0 - 48.0 %[facility] Hemoglobin (Bld) [Mass/Vol]10.6 g/dLLow12.0 - 16.0 g/dLNOMosaic Life Care at St. JosephIMMATURE GRANULOCYTES ABS AUTO0.05HighNOMosaic Life Care at St. JosephImmature granulocytes/100 WBC (Bld) 0.5 %0.0 - 0.5 %[facility] HospitalInterpretation and review of laboratory results AbnormalNOND HealthcareLYMPHOCYTES ABSOLUTE PTQU1PDAS HealthcareLymphocytes/100 WBC (Bld)31.1 %20.5 - 60.0 %[facility] CenterH (RBC) [Entitic mass]25.4 pgLow 26.7 - 34.0 pgNOMosaic Life Care at [address] JosephMCHC (RBC) [Mass/Vol]32 g/dL29.9 - 35.2 g/dLNOMosaic Life Care at St. JosephMCV (RBC) [Entitic vol]79.2 fLLow81.0 - 99.0 fLNOND Healthcare MONOCYTES ABSOLUTE AUTO0.8NOMS HealthcareMonocytes/100 WBC (Bld)8.4 %1.7 - 12.0 %NOMCameron Regional Medical CenterNEUTROPHILS ABSOLUTE AUTO5.7NOMS HealthcareNeutrophils/100 WBC (Bld)58.1 %43.0 - 75.0 %[facility] HospitalPlatelet mean volume (Bld) [Entitic vol] 10 fL9.5 - 13.5 fLNOMS HealthcareTBH EO #0.2NOMS HealthcareTBH [id number] [facility] HospitalTBH RBC4.18LowNOMS HealthcareTBH WBC9.7NOMS HealthcareCLINISYNCNOMS HealthcareUrinalysis macro (dipstick) panel (U)on 83-90-3094Qgizdzfrw, UA NegativeNegative - 4(70) +++ mg/dLNOMS HealthcareBlood, [...] mg/dLNOMS HealthcareNOMS HealthcareUS OB LIMITED 1+ FETUSESon 42-08-2373YY OB LIMITED 1+ FETUSESFINDINGS: Single viable intrauterine , breech presentation with normal cardiac and activity, 15 0 bpm. Age appropriate, normal visualization of the left ventricular and right ventricular outflowtracts. IMPRESSION: Normal cardiac and outflow tract anatomy. TRANSCRIBED BY: ELECTRONICALLY SIGNED BY: Steven Saavedra AvailableComment on above:Order Comment: US OB INCOMPLETE ANATOMY Estimated Date of Delivery: 05/05/25 Gestational Age as of 12/30/2024: 72h6uEvqpglihis macro (dipstick) panel (U)on 68-86-9036Myvxzfzle, UANegativeNegative - 4(70) +++ mg/dLNOMS HealthcareBlood, UANegativeNegative - 50 Celestino/mcLNOMS HealthcareClarity, UAClearNOMS Healthcare Color, UAYellowNOMS HealthcareGlucose, UANegativeNegative - 2000(110) ++++ mg/dL NOMS HealthcareInterpretation and review of laboratory resultsNormalNOMS HealthcareKetones, UANegativeNegative - 160(16) ++++ mg/dLNOND Healthcare Leukocytes, UANegativeNegative - 500+++ Dodie/mcLNOMS HealthcareNitrite, UA NegativeNegative - PositiveNOMS HealthcarepH, UA75 - 9NOMS HealthcareProtein, UA TraceNegative - 2000(20) ++++ mg/dLNOMS HealthcareSpec Grav, UA1.0251 - 1.03NOMS HealthcareUrobilinogen, UA0.20.2 - 12 mg/dLNOMS HealthcareNOMS HealthcareNo Panel InformationOrdered By: Radiologist Radiology on 98-93-4969YAYH Healthcare Work Phone: No Panel Informationon 80-19-6555Ywmzhckxy Study observation (narrative)SHERLY HealthcareUS OB ANATOMYon 41-83-8091[place] [address] Ultrasound Report Signed Patient: PARIS MOSQUEDA MR#: [id number] : 1990 Acct:[id number] Age/Sex: 34 / F ADM Date: 12/19/24 Loc: US Attending Dr: Scooby Alvarado D.O. Ordering Physician: Scooby Alvarado D.O. Date of Service: 12/19/24 Procedure(s): US OB anatomy Accession Number(s): [id number] cc: [facility] ; Scooby Alvarado D.O. The [address] [address] Patient Name: PARIS MOSQUEDA [facility]: [facility] [facility]:[id number] date: 1990 Sex: F Assigned Patient Location: US Current Patient Location: US Accession/Order Number: [id number] Exam Date: 12/19/2024 11:33 Report Date: 12/19/2024 [...] Evangelista M.D. 12/19/2024 11:39 AM Dictation Location: [place] [address] Electronically authenticated by: [id number] Y Date: 12/19/2024 11:39 Dictated By: Sarita Evangelista M.D. Signed By: 12/19/24 1142 DD/ 1139 TD/TT: [employer] Software Developer:TBHRadiology, Radiologist, MD - 12/19/2024 [place] [address] Ultrasound Report Signed Patient: PARIS MOSQUEDA MR#: [id number] : 1990 Acct:[id number] Age/Sex: 34 / F ADM Date: 12/19/24 Loc: US Attending Dr: Scooby Alvarado D.O. Ordering Physician: Scooby Alvarado D.O. Date of Service: 12/19/24 Procedure(s): US OB anatomy Accession Number(s): [id number] cc: [facility] ; Scooby Alvarado D.O. [place] [id number] Patient Name: PARIS MOSQUEDA MRN: [id number]:[id number] date: 1990 Sex: F Assigned Patient Location: US Current Patient Location: US Accession/Order Number: [id number] Exam Date: 12/19/2024 11:33 Report Date: 12/19/2024 [...] Evangelista M.D. 12/19/2024 11:39 AM Dictation Location: [place] [address] Electronically authenticated by: [id number] Y Date: 12/19/2024 11:39 Dictated By: Sarita Evangelista M.D. Signed By: 12/19/24 1142 DD/ 1139 TD/TT: Biztalk Software Developer: SHERLY Interiano OB CERVICAL LENGTHon 21-72-99[place] [address] Ultrasound Report Signed Patient: PARIS MOSQUEDA MR#: [id number] : 1990 Acct:[id number] Age/Sex: 34 / F ADM Date: 12/19/24 Loc: US Attending Dr: Scooby Alvarado D.O. Ordering Physician: Scooby Alvarado D.O. Date of Service: 12/19/24 Procedure(s): US OB cervical length Accession Number(s): [id number] cc: [facility] ; Scooby Alvarado D.O. [place] [address] Patient Name: PARIS MOSQUEDA MRN: [id number] date: 1990 Sex: F Assigned Patient Location: US Current Patient Location: US Accession/Order Number: [id number] Exam Date: 12/19/2024 11:33 Report Date: 12/19/2024 [...] Evangelista M.D. 12/19/2024 11:39 AM Dictation Location: [place] [address] Electronically authenticated by: [id number] Y Date: 12/19/2024 11:39 Dictated By: Sarita Evangelista M.D. Signed By: 12/19/24 1142 DD/ 1139 TD/TT: Biz[employer] Software Developer:TBHRadiology, Radiologist, MD - 12/19/2024 [place] [address] Ultrasound Report Signed Patient: PARIS MOSQUEDA MR#: [id number] : 1990 Acct:[id number] Age/Sex: 34 / F ADM Date: 12/19/24 Loc: US Attending Dr: Scooby Alvarado D.O. Ordering Physician: Scooby Alvarado D.O. Date of Service: 12/19/24 Procedure(s): US OB cervical length Accession Number(s): [id number] cc: [facility] ; Scooby Alvarado D.O. [place] [id number] Patient Name: PARIS MOSQUEDA MRN: [facility]:[id number] date: 1990 Sex: F Assigned Patient Location: US Current Patient Location: US Accession/Order Number: [id number] Exam Date: 12/19/2024 11:33 Report Date: 12/19/2024 [...] Evangelista M.D. 12/19/2024 11:39 AM Dictation Location: [place] [address] Electronically authenticated by: [id number] Y Date: 12/19/2024 11:39 Dictated By: Sarita Evangelista M.D. Signed By: 12/19/24 1142 DD/ 1139 TD/TT: Biztalk Software Developer: MARJORIE Andrew HPV,AGE GDLNon 46-32-7463VVM GDLN ACOG TESTINGNote. [facility] HealthcareComment on above:TESTS RESULT FLAG UNITS REF RANGE LAB Clinician Provided Cytology Information Source.............Vagina Other.............. No. of containers..01 ThinPrep Vial Age Algo [facility] Karine... 3066 01 FLAG LEGEND: L-Low Normal,H-High Normal,LL-Alert Low,HH-Alert High <-Panic Low,>-Panic High,A-Abnormal,AA-Critical Abnormal Performed at: 01 =G [address] [place] [address] Cindy Pinzon MD, HPV APTIMANegativeNegativeNOMS HealthcareComment on above:This nucleic acid amplification test detects fourteen high- risk HPV types (16,18,31,33,35,39,45,51,52,56,58,59,66,68) without differentiation. Performed at: =[address] [id number] Slot Machine Floor Person: Cindy Pinzon MD, Phone: [phone] Performed at: [address] [id number] Slot Machine Floor Person: Cindy Pinzon MD, Phone: [phone] IGP, APTIMA HPV, RFX 16/18,45Note.NOMS HealthcareComment on above:TESTS RESULT FLAG UNITS REF RANGE LAB DIAGNOSIS: 02 NEGATIVE FOR INTRAEPITHELIAL LESION OR MALIGNANCY. Specimen adequacy: 02 Satisfactory for evaluation. No endocervical component is identified. Performed by: 02 Yanni Dela Cruz Air Box Tester ([facility]) . 02 Note: Note 02 The [...] High,A-Abnormal,AA-Critical Abnormal Performed at: 02 [address] [facility] [address] [address] Cindy Pinzon MD, SPATULA-ALONE VAGINA CLINISYNCNOMS HealthcareRECURRENT VAGINITIS (HTRX)on 72-83-8500SFCYUWXCT VAGINAE 0NOMS HealthcareATOPOBIUM VAGINAENot detectedNOMS HealthcareBVAB 2,3 (BACTERIAL VAGINOSIS ASSOCIATED BACTERIA 2, 3); MOBILUNCUS GQX4XQZL HealthcareBVAB 2,3 (BACTERIAL VAGINOSIS ASSOCIATED BACTERIA 2, 3); MOBILUNCUS SPPNot detectedNOMS HealthcareCANDIDA ALBICANS, PARAPSILOSIS, YXYZPSESIU7VBMO HealthcareCANDIDA ALBICANS, PARAPSILOSIS, TROPICALISNot detectedNOMS HealthcareCANDIDA GLABRATA0 NOMS HealthcareCANDIDA GLABRATANot detectedNOMS HealthcareCANDIDA CDYOXD2JXYW HealthcareCANDIDA KRUSEINot detectedNOMS HealthcareCHLAMYDIA ITWTROPCKKG6HPOY HealthcareCHLAMYDIA TRACHOMATISNot detectedNOMS HealthcareGARDNERELLA VAGINALIS0 NOMS HealthcareGARDNERELLA VAGINALISNot detectedNOMS HealthcareMEGASPHAERA (TYPES 1, 2)0NOMS HealthcareMEGASPHAERA (TYPES 1, 2)Not detectedNOMS Healthcare MYCOPLASMA BITJZPDRJQ4KBYF HealthcareMYCOPLASMA GENITALIUMNot detectedNOMS HealthcareNEISSERIA JINUHDSUOCQ4CRTG HealthcareNEISSERIA GONORRHOEAENot detected NOMS HealthcareTRICHOMONAS IUFHWUBPJ5GDVD HealthcareTRICHOMONAS VAGINALISNot detectedNOMS HealthcareNOMS HealthcareUrinalysis macro (dipstick) panel (U)on 51-55-7083Tfykohing, UANegativeNegative - 4(70) +++ mg/dLNOMS HealthcareBlood, UANegativeNegative - 50 Celestino/mcLNOMS HealthcareClarity, UAClearNOMS Healthcare Color, UAYellowNOMS HealthcareGlucose, UANegativeNegative - 2000(110) ++++ mg/dL NOMS HealthcareInterpretation and review of laboratory resultsNormalNOMS HealthcareKetones, UANegativeNegative - 160(16) ++++ mg/dLNOND Healthcare Leukocytes, UAPositiveNegative - 500+++ Dodie/mcLNOMS HealthcareComment on above: smallNitrite, UANegativeNegative - PositiveNOMS HealthcarepH, UA75 - 9NOMS HealthcareProtein, UANegativeNegative - 2000(20) ++++ mg/dLNOMS HealthcareSpec Grav, UA1.0151 - 1.03NOMS HealthcareUrobilinogen, UA0.20.2 - 12 mg/dLNOMS HealthcareNOMS HealthcareGlucose random or fasting- POCTOrdered By: James Rader on 30-18-6187Fomkloyx Glucose Fasting Or Random (Fbs)94Pro[facility] HospitalMercy Health SystemUrinalysis macro (dipstick) panel (U)on 11-13-2024 Bilirubin, UANegativeNegative - 4(70) +++ mg/dLNOMS HealthcareBlood, UANegative Negative - 50 Celestino/mcLNOND HealthcareClarity, UAClearNOMS HealthcareColor, UA YellowNOMS HealthcareGlucose, UANegativeNegative - 2000(110) ++++ mg/dLNOMS HealthcareInterpretation and review of laboratory resultsAbnormFairmount Behavioral Health System Ketones, UANegativeNegative - 160(16) ++++ mg/dLNOND HealthcareLeukocytes, UA TraceNegative - 500+++ Dodie/mcLNOND HealthcareNitrite, UANegativeNegative - PositiveNOMS HealthcarepH, UA65 - 9NOMS HealthcareProtein, UANegativeNegative - 2000(20) ++++ mg/dLNOMS HealthcareSpec Grav, UA1.011 - 1.03NOND Healthcare Urobilinogen, UA0.20.2 - 12 mg/dLNOMosaic Life Care at St. JosephNOND HealthcareBOX TESTon 69-47-6396RCU TEST SENT OUTunselect medical clevel[facility] clinic rehabilitation hospital, beachwoodNOND IrukhtiafaAWQ8mhfijOKMY HealthcareBOX2 11/11/24NOND HealthcareUNITY BOX CLINISYNCBLUE MOUNTAIN [facility]ITAL HealthcareHCG ( test) Ql (U)on 66-15-3041Sgqcgyrcafhope and review of laboratory resultsAbnormFairmount Behavioral Health SystemPreg Test, UrPositive NegativeNOUniversity of Missouri Health Care HealthcareUS OB TRANSVAGINALon 63-86-6738KK OB TRANSVAGINALEXAM: US OB TRANSVAGINAL HISTORY: Dating. [...] II, MD, PHD at 16-Oct-2024 11:21:08 PM [facility] TeleradiologyNormalNot AvailableComment on above:Order Comment: US OB TRANSVAGINAL No LMP recorded.US Pelvis transvaginalon 35-19-8968ADJQ: US OB TRANSVAGINAL HISTORY: Dating. A1. LMP [...] II, MD, PHD at 16-Oct-2024 11:21:08 PM [facility] IMAGINGSluss, MD Ekaterina - 10/16/2024 EXAM: [...] II, MD, PHD at 16-Oct-2024 11:21:08 PM [facility] HealthcareRadiology Study observation (narrative)NOMS HealthcareUS Pelvis transvaginalOrdered By: Ekaterina Carroll on 33-52-2302DSCK [facility] Work Phone: Urinalysis macro (dipstick) panel (U)on 10-16-2024 Bilirubin, UANegativeNegative - 4(70) +++ mg/dLNOMS HealthcareBlood, UANegative Negative - 50 Celestino/mcLNOMS HealthcareClarity, UAClearNOMS HealthcareColor, UA YellowNOMS HealthcareGlucose, UANegativeNegative - 2000(110) ++++ mg/dLNOND HealthcareInterpretation and review of laboratory resultsAbnormalNOND Healthcare Ketones, UAPositiveNegative - 160(16) ++++ mg/dLNOMS HealthcareComment on above: 80mg/dLLeukocytes, UAPositiveNegative - 500+++ Dodie/mcLNOMS HealthcareComment on above:smallNitrite, UANegativeNegative - PositiveNOMS HealthcarepH, UA5.55 - 9 NOMS HealthcareProtein, UAPositiveNegative - 2000(20) ++++ mg/dLNOND Healthcare Comment on above:30mg/dLSpec Grav, UA1.031 - 1.03NOND HealthcareUrobilinogen, UA 0.20.2 - 12 mg/dLNOND HealthcareNOND HealthcareHGB AND HCTon 12-21-2023 Hematocrit (Bld) [Volume fraction]28.7 %Niv20-49XsfIotpzsOhioHealth Grove City Methodist Hospital Comment on above:Performed By: #### HH #### [facility] ([id number]) [address] [place] [address] 44062Pulxbqctvb (Bld) [Mass/Vol]9.8 g/dLLow11.7-15.5ProMedica Robert F. Kennedy Medical CenterComment on above:Performed By: #### HH #### [facility] ([id number]) [address] [place] [address] 60372Hltoogod Pathologyon 29-51-4645Yqhywgkk PathologyNormal [facility] HospitalComment on above:Result Comment: [facility] [address] [place] [address] Surgical Pathology Consultation Patient Name:BRIAN MOSQUEDA:1990 (Age: 33)Gender:FTaken:4Reported:4Physician(s):Cody Desai MD ([phone])Copy To: Rec. #:[id number]: #[id number] Final Pathologic Diagnosis Products of conception; removal: Products of conception (gestational sac with immature chorionic villi) and fragments of decidua with acute inflammation and necrosis. Report Electronically Signed Out wacha/12/28/2023Pradeep Brannon MD Interpretation performed at [facility], [address] [place] [address], License number: [id number]. Clinical History Spontaneous , miscarriage. Gross Description Received in formalin labeled MOSQUEDA Karyotype: No Aggregate measurement: 5.2 x 3.8 x 2.0 cm. Placenta: 3.4 x 2.8 x 1.5 cm Decidua/Clot: 1.8 x 1.0 x 0.5 cm Gestational Sac: Yes, intact Tissue: No Molar Tissue: No Cassettes: A-C placenta (3, ss, V31-66823,m5) DM Received fresh-no site on container. POC for routine surgical path. Per Ariana pierson/12/21/2023GR Specimen(s) Received Products of conception Fee Codes(s): 1; 38399BU PREG LESS THAN 14 WKS WITH TRANSVAGINALon 62-74-2388AH PREG LESS THAN 14 WKS WITH TRANSVAGINALUS [...] by Isamar Monroy MD on 12/21/2023 8:46 AMNormalOhioHealth Grove City Methodist HospitalBASIC METABOLIC PANLon 35-36-5859Lxvct gap [Moles/Vol]6 mmol/LNormal5-15 ProMAlvarado Hospital Medical CenterComment on above:Performed By: #### CHETAN HERNADEZ, 76863-5 #### [facility] ([id number]) [address] [place] [address], [place] [address]Gjxvbkf [Mass/Vol]8.9 mg/dLNormal8.5-10.5PMercer County Community HospitalComment on above:Performed By: #### CHETAN HERNADEZ, #### [facility] ([id number]) [address] [place] [address], [place] [address]Jbvxyqzz [Moles/Vol]105 mmol/PXfijmx95-093KzuVgoqtfOhioHealth Grove City Methodist HospitalComment on above:Performed By: #### CHETAN HERNADEZ, 83069-2 #### [facility] ([id number]) [address] [place] [address] 51936UY0 [Moles/Vol]24 mmol/PPrfeqy64-64RluXdlppxMercer County Community Hospital Comment on above:Performed By: #### CHETAN HERNADEZ, 95000-8 #### [facility] ([id number]) [address] [place] [address] 42445Inumdhqelr [Mass/Vol]0.74 mg/dLNormal0.40-1.00[facility] Methodist HospitalComment on above:Result Comment: METHOD TRACEABLE TO IDMS STANDARD Performed By: #### CHETAN HERNADEZ, 71499-2 #### [facility] ([id number]) [address] [place] [address], [place] [address]dAPU (CKD-EPI) NON-RACE DEPENDENT>90Normal>59ProKnapp Medical CenterComment on above:Result Comment: Reported eGFR is based on the CKD-EPI 2020 equation that does not use a race coefficient.Performed By: #### CHETAN HERNADEZ, #### [facility] ([id number]) [address] [place] [address] 15025Oavvifd [Mass/Vol]149 mg/oNPxel66-50PyzZggbmuOhioHealth Grove City Methodist Hospital Comment on above:Performed By: #### CHETAN HERNADEZ, #### [facility] ([id number]) [address] [place] [address] 80020Jbtzgmxbf [Moles/Vol]3.6 mmol/LNormal3.5-5.0[facility] HospitalComment on above:Performed By: #### CHETAN HERNADEZ, #### [facility] ([id number]) [address] [place] [address] 32173Xegooo [Moles/Vol]135 mmol/KIrixhj266-587SjqDuncmiOhioHealth Grove City Methodist HospitalComment on above:Performed By: #### CHETAN HERNADEZ, #### [facility] ([id number]) [address] [place] [address] 62667Ewtz nitrogen [Mass/Vol]10 mg/dLNormal5-23ProKnapp Medical CenterComment on above:Performed By: #### CHETAN HERNADEZ, #### [facility] ([id number]) [address] [place] [address] 82862CBY AND AUTO DIFFon 87-94-3766PRMBKVUC BASOPHIL0.0 X10E9/L Normal0.0-0.2ProMedWestside Hospital– Los AngelesComment on above:Performed By: #### CHETAN HERNADEZ, #### [facility] ([id number]) [address] [place] [address] 84101UTBQCHNT NEUTROPHIL4.9 X10E9/LNormal1.5-6.6[facility] HospitalComment on above:Performed By: #### MARICARMEN CBCA, #### [facility] ([id number]) [address] [place] [address] 43659Fakhvzksr/100 WBC (Bld)0.4 %[facility] Comment on above:Performed By: #### MARICARMEN CBCA, #### [facility] ([id number]) [address] [place] [address] 89500Ozmtafofuow (Bld) [#/Vol]0.3 10*3/uLNormal0.0-0.4ProKnapp Medical CenterComment on above:Performed By: #### MARICARMEN CBCA, #### [facility] ([id number]) [address] [place] [address] 66078Hazhkbyvjmb/100 WBC (Bld)2.3 %[facility] Comment on above:Performed By: #### MARICARMEN CBCA, #### [facility] ([id number]) [address] [place] [address] 74921Ddeiqabijje distribution width (RBC) [Ratio]13.8 %Normal 11.5-15.0[facility] Methodist HospitalComment on above:Performed By: #### MARICARMEN CBCA, #### [facility] ([id number]) [address] [place] [address] 28664Vtsxxfnadp (Bld) [Volume fraction]34.8 %Gbb67-11XwxRvyfddKnapp Medical CenterComment on above:Performed By: #### MARICARMEN CBCA, #### [facility] ([id number]) [address] [place] [address] [place] [address]Gggqqtspmr (Bld) [Mass/Vol]11.5 g/dLLow11.7-15.5PMercer County Community HospitalComment on above:Performed By: #### CHETAN HERNADEZ, #### [facility] ([id number]) [address] [place] [address] 67663Aftyrtwdnqd (Bld) [#/Vol]4.6 10*3/uLHigh1.0-3.5PMercer County Community HospitalComment on above:Performed By: #### MARICARMEN CBCPaco, #### [facility] ([id number]) [address] [place] [address] 04303Hzroszbbjhh/100 WBC (Bld)41.7 %NormalOhioHealth Grove City Methodist Hospital Comment on above:Performed By: #### CHETAN HERNADEZ, #### [facility] ([id number]) [address] [place] [address] 68618UDA (RBC) [Entitic mass]27.8 krThmike52-88SnePwhclzOhioHealth Grove City Methodist HospitalComment on above:Performed By: #### MARICARMEN CBCA, #### [facility] ([id number]) [address] [place] [address] 55832IQVP (RBC) [Mass/Vol]33.0 g/lHQgzivo58-60JjnDcaiukKnapp Medical CenterComment on above:Performed By: #### MARICARMEN CBCA, #### [facility] ([id number]) [address] [place] [address] 29297LOE (RBC) [Entitic vol]84 fEYvuffa64-906BupZvukup Fremont HospitalComment on above:Performed By: #### MARICARMEN CBCA, #### [facility] ([id number]) [address] [place] [address] 41213Ddpmjklpx (Bld) [#/Vol]1.2 10*3/uLHigh0-0.9[facility] HospitalComment on above:Performed By: #### CHETAN HERNADEZ, #### [facility] ([id number]) [address] [place] [address] 46940Wmpjlhndr/100 WBC (Bld)11.1 %NormalOhioHealth Grove City Methodist Hospital Comment on above:Performed By: #### MARICARMEN CBCPaco, #### [facility] ([id number]) [address] [place] [address] 75005Wgmtiijutoy/100 WBC (Bld)44.5 %[facility] Comment on above:Performed By: #### CHETAN HERNADEZ, #### [facility] ([id number]) [address] [place] [address] 04029Rxtxjarq mean volume (Bld) [Entitic vol]7.6 fLNormal7-12 [facility] HospitalComment on above:Performed By: #### CHETAN HERNADEZ, #### [facility] ([id number]) [address] [place] [address] 83031Xoaebwecc (Bld) [#/Vol]323 10*3/xRWryysb383-233OneNlmwvi Fremont HospitalComment on above:Performed By: #### CHETAN HERNADEZ, #### [facility] ([id number]) [address] [place] [address] 08316XEM COUNT4.12 X10E12/LNormal3.80-5.20[facility] Comment on above:Performed By: #### MARICARMEN CBCA, #### [facility] ([id number]) [address] [place] [address] 74343JJR (Bld) [#/Vol]11.0 10*3/uLNormal4.0-11.0[facility] HospitalComment on above:Performed By: #### ROXIE HERNADEZA, #### [facility] ([id number]) [address] [place] [address] 35792TTD.beta subunit IA 3rd IS Qnon 69-08-9986KKB.beta subunit Qn 5361 m[IU]/mLNormalOhioHealth Grove City Methodist HospitalComment on above:Result Comment: NEW REFERENCE [...] nontrophoblastic neoplasms. Performed By: #### MARICARMEN CBCA, #### [facility] ([id number]) [address] [place] [address] 10582RCJ ( test) Ql (U)on 33-65-6880Satt HCG ( test) Ql (U)PositiveAbnormalNEGOhioHealth Grove City Methodist HospitalComment on above: Performed By: #### 2106-3 #### [facility] ([id number]) [address] [place] [address] 98981FVC.beta subunit IA 3rd IS Qnon 44-59-4224KBB.beta subunit Qn 6620 m[IU]/mLNormalProKnapp Medical CenterComment on above:Result Comment: NEW REFERENCE RANGE WEEKS [...] trophoblastic or nontrophoblastic neoplasms. Performed By: #### 98172-2 #### [facility] ([id number]) [address] [place] [address] 82828OCQ MACROSCOPIC NURon 45-84-8220FCOCSTGJS NURSmallAbnormalNEG [facility]. Kennedy Medical CenterComment on above:Performed By: #### NUM #### [facility] ([id number]) [address] [place] [address] 65031BJZZG/HGB NURLargeAbnormalNEGProKnapp Medical CenterComment on above:Performed By: #### NUM #### [facility] ([id number]) [address] [place] [address] 58772SOFLACD NURNegativeNormalNEGProMedica Robert F. Kennedy Medical CenterComment on above:Performed By: #### NUM #### [facility] ([id number]) [address] [place] [address] 44123WBKACJW NURTraceAbnormalNEGProKnapp Medical CenterComment on above:Performed By: #### NUM #### [facility] ([id number]) [address] [place] [address] 45985SWZASZTFB ESTERASE NURNegativeNormalNEGProKnapp Medical CenterComment on above:Performed By: #### NUM #### [facility] ([id number]) [address] [place] [address] 84962AFNIRQI NURNegativeNormalNEGOhioHealth Grove City Methodist HospitalComment on above:Performed By: #### NUM #### [facility] ([id number]) [address] [place] [address] 81736LC NUR6.6Qsfeyl2.0-8.5PMercer County Community HospitalComment on above:Performed By: #### NUM #### [facility] ([id number]) [address] [place] [address] 86443QSNDKSF UQI504 mg/dLAbnoon license of unc medical centerNEGOhioHealth Grove City Methodist Hospital Comment on above:Performed By: #### NUM #### [facility] ([id number]) [address] [place] [address] 71029BZEJFOYC GRAVITY NIKITA>=1.103Ljnyvk5.003-1.035ProKnapp Medical CenterComment on above:Performed By: #### NUM #### [facility] ([id number]) [address] [place] [address] 91422KMXUDFHZGDEP NUR1.0 eu/dLNormal<1.1PMercer County Community Hospital Comment on above:Performed By: #### NUM #### [facility] ([id number]) [address] [place] [address] 43946JB PREG LESS THAN 14 WKS WITH TRANSVAGINALon 35-56-9023RU PREG LESS THAN 14 WKS WITH TRANSVAGINALUS [...] Olvin Overton MD on 12/19/2023 6:46 PMNormalProMedica [facility] Hospital OB TRANSVAGINALon 82-38-[place]32[place] [address] Ultrasound Report Signed Patient: PARIS MOSQUEDA MR#: [id number] : 1990 Acct:[id number] Age/Sex: 33 / F ADM Date: 12/14/23 Loc: N[facility] Attending Dr: Scooby Alvarado D.O. Ordering Physician: Scooby Alvarado D.O. Date of Service: 12/14/23 Procedure(s): US OB transvaginal Accession Number(s): [id number] cc: [facility] ; Scooby Alvarado D.O. The [address] [address] Patient Name: PARIS MOSQUEDA MRN: [id number] date: 1990 Sex: F Assigned Patient Location: [facility] Current Patient Location: [facility] Accession/Order Number: [id number] Exam Date: 12/14/2023 09:01 Report Date: 12/14/2023 09:53 At the request of: SCOOBY ALVARADO Procedure: US OB transvaginal EXAMINATION: US [...] weeks is recommended Electronically authenticated by: NADIA FORREST Date: 12/14/2023 09:53 Dictated By: Nadia Forrest M.D. Signed By: 12/14/23 0956 DD/ TD/TT: [employer] Software Developer:TBHRadiology, Radiologist, - 12/14/2023 [place] [address] Ultrasound Report Signed Patient: PARIS MOSQUEDA MR#: [id number] : 1990 Acct:[id number] Age/Sex: 33 / F ADM Date: 12/14/23 Loc: [facility] Attending Dr: Scooby Alvarado D.O. Ordering Physician: Scooby Alvarado D.O. Date of Service: 12/14/23 Procedure(s): US OB transvaginal Accession Number(s): [id number] cc: [facility] ; Scooby Alvarado D.O. The [address] [address] Patient Name: PARIS MOSQUEDA MRN: [id number] date: 1990 Sex: F Assigned Patient Location: [facility] Current Patient Location: [facility] Accession/Order Number: [id number] Exam Date: 12/14/2023 09:01 Report Date: 12/14/2023 09:53 At the request of: SCOOBY ALVARADO Procedure: US OB transvaginal EXAMINATION: US [...] weeks is recommended Electronically authenticated by: NADIA FORREST Date: 12/14/2023 09:53 Dictated By: Nadia Forrest M.D. Signed By: 12/14/2356 DD/ TD/TT: [employer] Software Developer: SHERLY HealthcareRadiology Study observation (narrative)[facility] HospitalUS OB TRANSVAGINALOrdered By: Radiologist Radiology on [id number] [employer] Work Phone: chlamydia/GC/Trich NAAon [phone] Trachomotis, NAANegativeNormalNegativeMemorial Health System Selby General HospitalComment on above:Performed By: #### CUU #### [facility] [address] [place] [address] [place] #### [id number] #### [facility] ,Neisseria Gonorrhoeae, NAANegativeNormalNegativeMemorial Health System Selby General HospitalComment on above:Performed By: #### CUU #### [facility] [address] [place] [address] [place] #### GCCHLAMTRI #### [facility] ,Trichomonas NAANegativeNormalNegMartins Ferry HospitalComment on above:Result Comment: Performed at: =[address] [place], [place] [id number] Slot Machine Floor Person: Cindy Pinzon MD, Phone: [phone] PERFORMED BY: [place] [address] PATHOLOGIST ASSISTANT BASEBALL COACH BROOKLYNN PEARCE M.D.Performed By: #### CUU #### [place] [address] [place] #### GCCHLAMTRI #### [facility] ,Urine Cultureon [id number] identified Cx Nom (U)30,000 colonies/ml mixed bacterial skin contaminants 2 Days PERFORMED BY: [place] [address] PATHOLOGIST ASSISTANT BASEBALL COACH BROOKLYNN PEARCE M.D.Bellevue HospitalComment on above: Performed By: #### CUU #### [address] #### GCCHLAMTRI #### [facility] ,Pap IG,rfx Aptima HPV all pthon 11-16-2021..NormalChillicothe HospitalComment on above:Performed By: #### HIV12 #### [facility] [address] [place] [address] Andriy KarenDIAGNOSIS:CommentNormMemorial Health System Marietta Memorial HospitalCommunising memorial hospital on above:Result Comment: NEGATIVE FOR INTRAEPITHELIAL LESION OR MALIGNANCY. THIS SPECIMEN WAS RESCREENED PART OF OUR ASSOCIATE CURATOR PROGRAM.Performed By: #### HIV12 #### [facility] [address] [place] [address] Andriy KarenMethodology:CommentNormMemorial Health System Marietta Memorial HospitalComment on above: Result Comment: This liquid based ThinPrep(R) pap test was screened with the use of an image guided system.Performed By: #### HIV12 #### [facility] [address] [place] [address] Andriy RodgersenNote:CommentNormMemorial Health System Marietta Memorial HospitalComment on above:Result Comment: The Pap smear is a screening test designed to aid in the detection of premalignant and malignant conditions of the uterine cervix. It is not a diagnostic procedure and should not be used as the sole means of detecting cervical cancer. Both false-positive and false-negative reports do occur. .Performed By: #### HIV12 #### [facility] [address] [place] [address] Andriy KarenPerformed by:[facility] on above: Result Comment: Yanni Dela Cruz, Wood Science Professor (ASCP)Performed By: #### HIV12 #### [facility] [address] [place] [address] Andriy KarenQC reviewed by:[facility] on above: Result Comment: Summer Motley, Supervisory Wood Science Professor (ASCP)Performed By: #### HIV12 #### [facility] [address] [place] [address] Andriy KarenReflex Criteria:[facility] on above: Result Comment: The HPV DNA reflex criteria were not met with this specimen result therefore, no HPV testing was performed. .Performed By: #### HIV12 #### [facility] [address] [place] [address] Andriy KarenSpecimen adequacy:[facility] on above:Result Comment: Satisfactory for evaluation. Endocervical and/or squamous metaplastic cells (endocervical component) are present.Performed By: #### HIV12 #### [facility] [address] [place] [address] Andriy KarenCBC AUTO DIFFon [id number] #0.0 103/ulNormal0.0-0.1The [facility]itan HospitalComment on above:Performed By: #### HIV12 #### [facility] [address] [place] [address] Andriy KarenBasophils/100 WBC (Bld)0.2 %Normal0.2-2.0[facility] Comment on above:Performed By: #### HIV12 #### [facility] [address] [place] [address] Andriy KarenEO #0.2 103/ulNormal0.0-0.7The Seminole HospitalComment on above: Performed By: #### HIV12 #### [facility] [address] [place] [address] Andriy KarenEosinophils/100 WBC (Bld)1.4 %Normal0.9-7.0[facility] Comment on above:Performed By: #### HIV12 #### [facility] [address] [place] [address] Andriy KarenErythrocyte distribution width (RBC) [Ratio]16.9 %Critically high 11.0-15.0The [facility]itan HospitalComment on above:Performed By: #### HIV12 #### [facility] [address] [place] [address] Andriy KarenHematocrit (Bld) [Volume fraction]28.9 %Critically low36.0-48.0The [facility]itan HospitalComment on above:Performed By: #### HIV12 #### [facility] [address] [place] [address] Andriy KarenHemoglobin (Bld) [Mass/Vol]9.2 g/dLCritically low12.0-16.0The [facility] HospitalComment on above:Result Comment: PATIENT DELIVEREDPerformed By: #### HIV12 #### [facility] [address] [place] [address] Andriy KarenIG #0.07 10e3/ulCritically high0.00-0.03The [facility]itan HospitalComment on above:Performed By: #### HIV12 #### [facility] [address] [place] [address] Andriy KarenIG %0.7 %Critically high0.0-0.5The [facility] HospitalComment on above:Performed By: #### HIV12 #### [facility] [address] [place] [address] Andriy KarenLYMPH #3.2 103/ulNormal1.2-3.8The [facility] HospitalComment on above: Performed By: #### HIV12 #### [facility] [address] [address] Andriy KarenLymphocytes/100 WBC (Bld)29.7 %Uvnodu79.5-60.0[facility] Comment on above:Performed By: #### HIV12 #### [facility] [address] [place] [address] Andriy KarenMANUAL DIFF REQNONormalThe [facility]itan HospitalComment on above: Performed By: #### HIV12 #### [facility] [address] [place] [address] Andriy KarenMCH (RBC) [Entitic mass]28.0 ewMyquoi17.7-34.0[facility] Comment on above:Performed By: #### HIV12 #### [facility] [address] [place] [address] Andriy KarenMCHC (RBC) [Mass/Vol]31.8 g/qFCczrmc50.9-35.2[facility] Comment on above:Performed By: #### HIV12 #### [facility] [address] [place] [address] Andriy KarmaicoMCV (RBC) [Entitic vol]87.8 wJAzrowh15.0-99.0[facility] Comment on above:Performed By: #### HIV12 #### [facility] [address] [place] [address] Andriy KarenMONO #0.9 103/ulCritically high0.3-0.8The [facility] HospitalComment on above:Performed By: #### HIV12 #### [facility] [address] [place] [address] Andriy KarenMonocytes/100 WBC (Bld)8.3 %Normal1.7-12.0[facility] Comment on above:Performed By: #### HIV12 #### [facility] [address] [place] [address] Andriy KarenNEUT #6.3 103/ulNormal1.4-6.5The [facility] HospitalComment on above: Performed By: #### HIV12 #### [facility] [address] [place] [address] Andriy RodgersenNeutrophils/100 WBC (Bld)59.7 %Cypmit82.0-75.0The [facility] Comment on above:Performed By: #### HIV12 #### [facility] [address] [place] [address] Andriy RodgersenPlatelet mean volume (Bld) [Entitic vol]9.7 fLNormal9.5-13.5The [facility] HospitalComment on above:Performed By: #### HIV12 #### [facility] [address] [place] [address] Andriy QxlwkCPP538 103/pzYyornc171-699Khb [facility] HospitalComment on above: Performed By: #### HIV12 #### [facility] [address] [place] [address] Andriy KarenRBC3.29 106/ulCritically low4.20-5.40The [facility] HospitalComment on above:Performed By: #### HIV12 #### [facility] [address] [place] [address] Andriy RodgersenWBC10.6 103/ulNormal4.0-11.0The [facility] HospitalComment on above: Performed By: #### HIV12 #### [facility] [address] [place] [address] Andriy KarenASYMPTOMATIC COVID-19 ANTIGENon [id number] StatementSEE BELOW NormalThe [facility]itan HospitalComment on above:Result Comment: This test has [...] is revoked sooner.Performed By: #### HBSANS #### [facility] [address] [place] [address] Andriy Le-CoV-2 (COVID-19) RNA CARLITOS+probe Ql (Unsp spec)NegativeNormal NEGATIVEThe [facility]itan HospitalComment on above:Result Comment: Negative results are presumptive. They do not preclude infection and should not be used as the sole basis for treatment decisions. Additional confirmatory testing by a molecular method should be considered.Performed By: #### HBSANS #### [facility] [address] [place] [address] Andriy RodgersenCBC AUTO DIFFon [id number] #0.0 103/ulNormal0.0-0.1The [facility]itan HospitalComment on above:Performed By: #### CBC ####[facility] Ezmodkbmou[address] [place], [place] [address]Dr.Sunil ChangBasophils/100 WBC (Bld)0.2 %Normal0.2-2.0The [facility]itan HospitalComment on above:Performed By: #### CBC ####[facility] Dxyyfz[address] [place], [place] [address]Dr.Yilan ChangEO #0.1 103/ulNormal0.0-0.7The [facility] HospitalComment on above:Performed By: #### CBC ####[facility] Dxfdjal[address] [place], [place] [address]Dr.Sunil ChangEosinophils/100 WBC (Bld)1.0 %Normal 0.9-7.0The [facility] HospitalComment on above:Performed By: #### CBC ####[facility] Paattstgtm[address] [place], [place] [address]Dr.Sunil Conner Erythrocyte distribution width (RBC) [Ratio]17.0 %Critically high11.0-15.0The [facility] HospitalComment on above:Performed By: #### CBC ####[facility] Gbqzuiadba[address] [place], [place] [address]Dr.Sunil ChangHematocrit (Bld) [Volume fraction]37.5 %Ructen50.0-48.0The [facility] HospitalComment on above:Performed By: #### CBC ####[facility] Shgkmelssu[address] [place], [place] [address]Dr.Sunil ConnerHemoglobin (Bld) [Mass/Vol]12.3 g/dL Mrbbac51.0-16.0The [facility] HospitalComment on above:Performed By: #### CBC ####[facility] Vxzltmbapv[address] [place], [place] [address]Dr. Sunil ConnerIG #0.05 10e3/ulCritically high0.00-0.03The [facility] HospitalComment on above:Performed By: #### CBC ####[facility] S[address]vwgzhjl[address] [place], [place] [address]Dr.Sunil ConnerIG %0.5 %Normal0.0-0.5The [facility] HospitalComment on above:Performed By: #### CBC ####[facility] Jryalrgkzo[address] [place], [place] [address]Dr.Sunil ConnerLYMPH #2.8 103/ulNormal1.2-3.8The [facility] HospitalComment on above:Performed By: #### CBC ####[facility] Mgzgfottgs[address] [place], [place] [address]Dr. Sunil ConnerLymphocytes/100 WBC (Bld)28.4 %Dsuqsz49.5-60.0The [facility] Comment on above:Performed By: #### CBC ####[facility] Uppojtxfpc[address] [place], [place] [address]Dr.Sunil ConnerMANUAL DIFF REQNONormalThe [facility] HospitalComment on above:Performed By: #### CBC ####[facility] Cnhvmqjfcz[address] [place], [place] [address]Dr.Sunil ConnerCEN[facility] (RBC) [Entitic mass]28.5 fuRqeetn92.7-34.0The [facility] HospitalComment on above: Performed By: #### CBC ####[facility] Neipcyavxw[address] [place], [place] [address]Dr.Sunil ConnerMCHC (RBC) [Mass/Vol]32.8 g/dLNormal 29.9-35.2The [facility] HospitalComment on above:Performed By: #### CBC ####[facility] Lljoqidvyv[address] [place], [place] [address]Dr. Sunil ConnerMCV (RBC) [Entitic vol]86.8 qSBbhtog02.0-99.0The [facility] Comment on above:Performed By: #### CBC ####[facility] Qooplzbbum[address] [place], [place] [address]Dr.Sunil ConnerMONO #0.8 103/ulNormal0.3-0.8 The [facility]itan HospitalComment on above:Performed By: #### CBC ####[facility] Siwnckovzo[address] [place], [place] [address]Dr.Sunil Conner Monocytes/100 WBC (Bld)7.9 %Normal1.7-12.0The [facility] HospitalComment on above: Performed By: #### CBC ####[facility] Dsstrcnlzs[address] [place], [place] [address]Dr.Sunil ConnerNEUT #6.0 103/ulNormal1.4-6.5The [facility] HospitalComment on above:Performed By: #### CBC ####[facility] Sovuwjdgcu[address] [place], [place] [address]Dr.Sunil ConnerNeutrophils/100 WBC (Bld)62.0 %Avlbuc11.0-75.0The [facility] HospitalComment on above:Performed By: #### CBC ####[facility] Ylltksybgc[address] [place], [place] [address]Dr.Sunil ConnerPlatelet mean volume (Bld) [Entitic vol]10.2 fLNormal9.5-13.5 The [facility] HospitalComment on above:Performed By: #### CBC ####[facility] Mxydshosdu[address] [place], [place] [address]Dr.Sunil CfjkfZKE524 103/moNrrois351-038Uqo [facility] HospitalComment on above:Performed By: #### CBC ####[facility] [address] [address]Dr. Sunil ConnerRBC4.32 106/ulNormal4.20-5.40The [facility] HospitalComment on above: Performed By: #### CBC ####[facility] Axivoyvbxa[address] [place], [place] [address]Dr.Sunil ConnerWBC9.7 103/ulNormal4.0-11.0The [facility] HospitalComment on above:Performed By: #### CBC ####[facility] Fgwmbdsenf[address] [place], [place] [address]Dr.Sunil ConnerDRUG SCREEN RAPID (URINE)on [id number]EVha Bellevue HospitalCommunising memorial hospital on above:Performed By: #### DRUGRPD ####[facility] Podfemexzu[address] [place], [place] [address]Dr. Sunil ConnerBARNegativeNormalNEGATIVEChillicothe HospitalComment on above:Performed By: #### DRUGRPD ####[facility] Vewlsuoqpv[address] [place], [place] [address]Dr. Sunil ConnerBUP NegativeNormalNEGATIVEChillicothe HospitalComment on above:Performed By: #### DRUGRPD ####[facility] Feapitrfcr[address] [place], [place] [address]Dr. Chelsiebriana ChangBZONegativeNormalNEGATIVEChillicothe HospitalComment on above:Performed By: #### DRUGRPD ####[facility] Tqnbearodn[address] [place], [place] [address]Dr. Chelsiebriana ChangCOCNegativeNormalNEGATIVEChillicothe HospitalComment on above:Performed By: #### DRUGRPD ####[facility] Uxswxlxawj[address] [place], [place] [address]Dr. Sunil ConnerCUT-OFFSE Select [facility] Special[facility] Hospital - Cleveland-FairhillComment on above:Result Comment: AMP (Amphetamine): 500ng/mL, BAR (Barbituates): 200 ng/mL, BZO (Benzodiazepines): 15 0 ng/mL, BUP (Buprenorphine): 10 ng/mL, TAMICA (Cocaine): 150 ng/mL, mAMP (Methamphetamine): 500 ng/mL, MTD (Methadone): 200 ng/mL, OPI (Opiates): 100 ng/mL, OXY (Oxycodone): 100 ng/mL, PCP (Phencyclidine): 25 ng/mL, PPX (Propoxyphene): 300 ng/mL, THC (Cannabinoids): 50 ng/mL, TCA (Trycyclic Antidepressants): 300 ng/mLPerformed By: #### DRUGRPD ####[facility] Bnjqgrtaum[address] [place], [place] [address]Dr. Sunil ChangDRUG CUT HEADERDRUG CLASS TEST SYSTEM CUT-OFF CONCENTRATIONS ARE FOLLOWS:NormalThe Seminole HospitalComment on above:Performed By: #### DRUGRPD ####[facility] Nchxesmwtn[address] [place], [place] [address]Dr. Sunil ChangmAMP NegativeNormalNEGATIVEClinton Memorial Hospital HospitalComment on above:Performed By: #### DRUGRPD ####[facility] [address]pbeuptobh[address] [place], [place] [address]Dr. Yibriana ChangMTDNegativeNormalNEGATIVEClinton Memorial Hospital HospitalComment on above:Performed By: #### DRUGRPD ####[facility] Lauhlrgyiz[address] [place], [place] [address]Dr. Yilan ChangOPINegativeNormalNEGATIVEClinton Memorial Hospital HospitalComment on above:Performed By: #### DRUGRPD ####[facility] Irudnorkuz[address] [place], [place] [address]Dr. Yilan ChangOXYNegative NormalNEGATIVEClinton Memorial Hospital HospitalComment on above:Performed By: #### DRUGRPD ####[facility] Weeclbbwtd[address] [place], [place] [address]Dr. Yilan ChangPCPNegativeNormalNEGATIVEClinton Memorial Hospital HospitalComment on above: Performed By: #### DRUGRPD ####[facility] Edfpagwyys[address] [place], [place] [address]Dr. Yilan ChangPPXNegativeNormalNEGATIVEClinton Memorial Hospital HospitalComment on above:Performed By: #### DRUGRPD ####[facility] [address] [id number]. Chelsiebriana UbaldoTCANegative NormalNEGATIVEChillicothe HospitalComment on above:Performed By: #### DRUGRPD ####[facility] [address] [id number]. Sunil ConnerTHCNegativeNormalNEGATIVEChillicothe HospitalComment on above: Performed By: #### DRUGRPD ####[facility] [address] [address]Dr. Sunil ConnerTYPE AND SCREENon [id number] AND SCREENNegativeHocking Valley Community HospitalComment on above:Performed By: #### TNS #### [facility] [address] [address] [address] Sunil Kong PREG BIOPHY W NON STRESSon [id number] PREG BIOPHY W NON STRESSEXAMINATION: US PREG [...] profile score: 8.0 Electronically authenticated by: NADIA FORREST Date: 2021-07-13 10:55Maria E [facility] PREG GROWTHon [id number] PREG GROWTHEXAMINATION: US PREG GROWTH HISTORY: History [...] EFW: 6 lbs. 3 oz., 37% FL/AC: 0.187297 FL/BPD: 0.718562 HC/AC: 0.670859 GESTATIONAL AGE: Age by EDC: 36 weeks 4 days FAHEEM by EDC: 08/04/2021 Age by US: 35 weeks 3 days FAHEEM by US: 08/12/2021 IMPRESSION: Normal interval growth Electronically authenticated by: NADIA FORREST Date: 2021-07-11 10:28NoFirelands Regional Medical Center South CampusCOVID Quick Testingon [id number] EasyProve Other Quick Strepon 07-09-2021. pyogenes Org specific cx Ql (Throat)NegativeBarbeau EasyProve Other Quxfu StrepSecond Wind Other GROUP B STREP CULTUREon 07-06-2021. agalactiae Ag Ql (Unsp spec)Culture Observations: NEGATIVE FOR GROUP B STREPTOCOCCUS.NormalThe [facility] HospitalComment on above: Performed By: #### GBSCX #### [facility] [address] [place] [address] Dr. Sunil oKng PREG GROWTHon [id number] PREG GROWTHEXAMINATION: US PREG GROWTH HISTORY: History [...] EFW: 4 lbs. 14 oz., 53% FL/AC: 0.510767 FL/BPD: 0.787146 HC/AC: 1.053659 GESTATIONAL AGE: Age by EDC: 33 weeks 4 days FAHEEM by EDC: 08/04/2021 Age by US: 33 weeks 1 day FAHEEM by US: 08/07/2021 IMPRESSION: Normal interval growth Electronically authenticated by: NADIA FORREST Date: 2021-06-20 11:46NormalThe [facility] AUTO DIFFon [id number] #0.0 103/ulNormal0.0-0.1[facility] HospitalComment on above:Performed By: #### HIV12 #### [facility] [address] [place] [address] Andriy KarenBasophils/100 WBC (Bld)0.5 %Normal0.2-2.0The [facility] Comment on above:Performed By: #### HIV12 #### [facility] [address] [place] [address] Andriy KarenEO #0.1 103/ulNormal0.0-0.7The [facility] HospitalComment on above: Performed By: #### HIV12 #### [facility] [address] [place] [address] Andriy KarenEosinophils/100 WBC (Bld)1.3 %Normal0.9-7.0The [facility] Comment on above:Performed By: #### HIV12 #### [facility] [address] [place] [address] Andriy KarenErythrocyte distribution width (RBC) [Ratio]19.8 %Critically high 11.0-15.0The [facility] HospitalComment on above:Performed By: #### HIV12 #### [facility] [address] [place] [address] Andriy KarenHematocrit (Bld) [Volume fraction]34.9 %Critically low36.0-48.0The [facility] HospitalComment on above:Performed By: #### HIV12 #### [facility] [address] [place] [address] Andriy KarenHemoglobin (Bld) [Mass/Vol]11.1 g/dLCritically low12.0-16.0The [facility] HospitalComment on above:Performed By: #### HIV12 #### [facility] [address] [place] [address] Andriy KarenIG #0.04 10e3/ulCritically high0.00-0.03[facility] HospitalComment on above:Performed By: #### HIV12 #### [facility] [address] [place] [address] Andriy SegalG %0.5 %Normal0.0-0.5The [facility] HospitalComment on above: Performed By: #### HIV12 #### [facility] [address] [place] [address] Andriy SteinLYMPH #2.1 103/ulNormal1.2-3.8The [facility] HospitalComment on above: Performed By: #### HIV12 #### [facility] [address] [place] [address] Andriy SteinLymphocytes/100 WBC (Bld)24.8 %Ykncyx49.5-60.0[facility] Comment on above:Performed By: #### HIV12 #### [facility] [address] [place] [address] Andriy RodgersenMANUAL DIFF REQNONormalThe [facility] HospitalComment on above: Performed By: #### HIV12 #### [facility] [address] [place] [address] Andriy KarenH (RBC) [Entitic mass]27.5 jqWsupgm10.7-34.0[facility] Comment on above:Performed By: #### HIV12 #### [facility] [address] [place] [address] Andriy KarenMCHC (RBC) [Mass/Vol]31.8 g/sGPigpum87.9-35.2[facility] Comment on above:Performed By: #### HIV12 #### [facility] [address] [place] [address] Andriy KarenMCV (RBC) [Entitic vol]86.6 qIHbcsse69.0-99.0[facility] Comment on above:Performed By: #### HIV12 #### [facility] [address] [place] [address] Andriy KarenMONO #0.7 103/ulNormal0.3-0.8The [facility] HospitalComment on above: Performed By: #### HIV12 #### [facility] [address] [place] [address] Andriy KarenMonocytes/100 WBC (Bld)8.7 %Normal1.7-12.0The [facility] Comment on above:Performed By: #### HIV12 #### [facility] [address] [place] [address] Andriy RodgersenNEUT #5.4 103/ulNormal1.4-6.5The [facility] HospitalComment on above: Performed By: #### HIV12 #### [facility] [address] [place] [address] Andriy KarenNeutrophils/100 WBC (Bld)64.2 %Fuximb04.0-75.0[facility] Comment on above:Performed By: #### HIV12 #### [facility] [address] [place] [address] Andriy KarenPlatelet mean volume (Bld) [Entitic vol]9.9 fLNormal9.5-13.5The [facility] HospitalComment on above:Performed By: #### HIV12 #### [facility] [address] [place] [address] Andriy UqjzcYJR537 103/ykHgadnv904-424Dqi [facility] HospitalComment on above: Performed By: #### HIV12 #### [facility] [address] [place] [address] Andriy KarenRBC4.03 106/ulCritically low4.20-5.40The [facility] HospitalComment on above:Performed By: #### HIV12 #### [facility] [address] [place] [address] Andriy KarenWBC8.5 103/ulNormal4.0-11.0The [facility] HospitalComment on above: Performed By: #### HIV12 #### [facility] [address] [place] [address] Andriy RodgersenGTT 3 HR PREGon 29-31-2310Ucbopcc [Mass/Vol]85 mg/wSNuzdas79-730LvrChillicothe HospitalComment on above:Performed By: #### GTT3P ####[facility] [address] [address]Dr. Chelsielan ChangGlucose [Mass/Vol]188 mg/dLNoFirelands Regional Medical Center South CampusComment on above:Performed By: #### GTT3P ####[facility] [address] [address]Dr. Yilan ChangGlucose [Mass/Vol]133 mg/dLNoFirelands Regional Medical Center South Campus Comment on above:Performed By: #### GTT3P ####[facility] [address] [address]Dr. Yilan ChangGlucose [Mass/Vol]122 mg/dL NormalChillicothe HospitalComment on above:Performed By: #### GTT3P ####[facility] [address]feuv[address] [place], [place] [address]Dr. Sunil ConnerCBC AUTO DIFFon [id number] #0.0 103/ulNormal0.0-0.1[facility] HospitalComment on above:Performed By: #### CBC #### [facility] [address] [place] [address] Dr. Sunil ConnerBasophils/100 WBC (Bld)0.3 %Normal0.2-2.0[facility] Comment on above:Performed By: #### CBC #### [facility] [address] [place] [address] Dr. Sunil Gomez #0.1 103/ulNormal0.0-0.7The [facility] HospitalComment on above: Performed By: #### CBC #### [facility] [address] [place] [address] Dr. Sunil Copelandosinophils/100 WBC (Bld)1.2 %Normal0.9-7.0[facility] Comment on above:Performed By: #### CBC #### [facility] [address] [place] [address] Dr. Sunil Copelandrythrocyte distribution width (RBC) [Ratio]14.6 %Ubkmlf75.0-15.0 [facility]ment on above:Performed By: #### CBC #### [facility] [address] [place] [address] Dr. Sunil ConnerHematocrit (Bld) [Volume fraction]31.6 %Critically low36.0-48.0 The [facility] HospitalComment on above:Performed By: #### CBC #### [facility] [address] [place] [address] Dr. Sunil ConnerHemoglobin (Bld) [Mass/Vol]9.9 g/dLCritically low12.0-16.0The [facility] Campusment on above:Performed By: #### CBC #### [facility] [address] [place] [address] Dr. Sunil Neumann #0.05 10e3/ulCritically high0.00-0.03The [facility] Comment on above:Performed By: #### CBC #### [facility] [address] [place] [address] Dr. Sunil Neumann %0.5 %Normal0.0-0.5The [facility] on above: Performed By: #### CBC #### [facility] [address] [place] [address] Dr. Sunil BarrientosH #2.4 103/ulNormal1.2-3.8The [facility] HospitalComment on above:Performed By: #### CBC #### [facility] [address] [place] [address] Dr. Sunil Cabreramphocytes/100 WBC (Bld)25.6 %Oixflq91.5-60.0The [facility] Campusment on above:Performed By: #### CBC #### [facility] [address] [place] [address] Dr. Sunil AshrafUAL DIFF REQNONormalThe [facility] HospitalComment on above: Performed By: #### CBC #### [facility] [address] [place] [address] Dr. Sunil Ayala (RBC) [Entitic mass]25.8 pgCritically low26.7-34.0The [facility] HospitalComment on above:Performed By: #### CBC #### [facility] [address] [place] [address] Dr. Sunil Ayala (RBC) [Mass/Vol]31.3 g/sZGsltne33.9-35.2The [facility] HospitalComment on above:Performed By: #### CBC #### [facility] [address] [place] [address] Dr. Sunil Ayala (RBC) [Entitic vol]82.3 kMCkuset94.0-99.0The [facility] HospitalComment on above:Performed By: #### CBC #### [facility] [address] [place] [address] Dr. Sunil Chua #0.5 103/ulNormal0.3-0.8The [facility] HospitalComment on above:Performed By: #### CBC #### [facility] [address] [place] [address] Dr. Sunil Eastmanocytes/100 WBC (Bld)5.3 %Normal1.7-12.0The [facility] Comment on above:Performed By: #### CBC #### [facility] [address] [place] [address] Dr. Sunil Choi #6.4 103/ulNormal1.4-6.5The [facility] HospitalComment on above:Performed By: #### CBC #### [facility] [address] [place] [address] Dr. Sunil Loerautrophils/100 WBC (Bld)67.1 %Kxyfta57.0-75.0The [facility] HospitalComment on above:Performed By: #### CBC #### [facility] [address] [place] [address] Dr. Sunil Parralet mean volume (Bld) [Entitic vol]10.3 fLNormal9.5-13.5The [facility] HospitalComment on above:Performed By: #### CBC #### [facility] [address] [place] [address] Dr. Snuil ConnerPLT255 103/dcAcyjsr665-211BqcChillicothe HospitalComment on above: Performed By: #### CBC #### [facility] [address] [place] [address] Dr. Sunil ConnerRBC3.84 106/ulCritically low4.20-5.40The [facility] HospitalComment on above:Performed By: #### CBC #### [facility] [address] [place] [address] Dr. Sunil ConnerWBC9.5 103/ulNormal4.0-11.0The [facility] HospitalComment on above: Performed By: #### CBC #### [facility] [address] [place] [address] Dr. Sunil ConnerGLUCOSE - 1HRon 34-38-6830Dalhbii [Mass/Vol]171 mg/dLCritically hudn54-068Bwn [facility] HospitalComment on above:Performed By: #### HIV12 #### [facility] [address] [place] [address] Andriy KarenVAGINITIS/VAGINOSIS DNA PROBEon 69-45-3832Uqbykpl speciesPositive AbnormalNegativeChillicothe HospitalComment on above:Performed By: #### VAGINT #### [facility] [address] [place] [address] Dr. Sunil Persauddnerella vaginalisNegativeNormalNegativeChillic[facility] Comment on above:Performed By: #### VAGINT #### [facility] [address] [place] [address] Dr. Sunil ConnerTrichomonas vaginalisNegativeNormalNegativeCh[facility]ic[facility] Comment on above:Performed By: #### VAGINT #### [facility] [address] [place] [address] Dr. Sunil ConnerUS PREG ANATOMY SINGLEon [id number] PREG ANATOMY SINGLE EXAMINATION: US PREG ANATOMY [...] weeks 3 days EFW:12 ounces, 47%; FL/AC: 0.054466 FL/BPD: 0.032360 HC/AC: 1.538167 GESTATIONAL AGE: Age by EDC: 20 weeks 4 days FAHEEM by EDC: 08/04/2021 Age by current US: 20 weeks 2 days FAHEEM by current US: 08/06/2021 IMPRESSION: Normal anatomy scan *Reference: AIUM Practice Guideline for the performance of Obstetric Ultrasound Examinations, March 25, 2007. Electronically authenticated by: NADIA FORREST Date: 2021-03-21 16:13[facility] ACOG PANEL 3: 21 to 29on 02-21-2021..NormalChillicothe HospitalComment on above:Result Comment: Performed at: WBPerformed By: #### HIV12 #### [facility] [address] [address] Andriy Robbins Gdln ACOG Hvvvbeb91-01NupkinLouFirelands Regional Medical Center South CampusComment on above:Performed By: #### HIV12 #### [facility] [address] [id number] Andriy RodgersenChlamydia, Nuc. Acid AmpNegativeNormalNegativeChill[facility] Hospital Comment on above:Result Comment: Performed at: =GPerformed By: #### HIV12 #### [facility] [address] [place] [address] KarenDIAGNOSIS:CommentAbAvita Health System on above: Result Comment: EPITHELIAL CELL ABNORMALITY. LOW-GRADE SQUAMOUS INTRAEPITHELIAL LESION (LSIL); MILD DYSPLASIA. Performed at: WBPerformed By: #### HIV12 #### [facility] [address] [place] [address] KarenElectronically signed by:CommentRegency Hospital Toledo on above:Result Comment: Kenneth العلي MD, Pathologist Performed at: WBPerformed By: #### HIV12 #### [facility] [address] [place] [address] KarenGonococcus, Nuc. Acid AmpNegativeNormalNegativeCh[facility] Comment on above:Result Comment: Performed at: =GPerformed By: #### HIV12 #### [facility] [address] [place] [address] KarenMethodology:CommentNoKettering Health Washington Township on above: Result Comment: This liquid based ThinPrep(R) pap test was screened with the use of an image guided system. Performed at: WBPerformed By: #### HIV12 #### [facility] [address] [place] [address] KarenNote:CommentRegency Hospital Toledo on above:Result Comment: The Pap smear is a screening test designed to aid in the detection of premalignant and malignant conditions of the uterine cervix. It is not a diagnostic procedure and should not be used as the sole means of detecting cervical cancer. Both false-positive and false-negative reports do occur. . Performed at: WBPerformed By: #### HIV12 #### [facility] [address] [place] [address] KarenPathologist Provided [id number] Health Washington Township on above:Result Comment: [id number] Performed at: WBPerformed By: #### HIV12 #### [facility] [address] [place] [address] KarenPerformed by:CommentRegency Hospital Toledo on above: Result Comment: Lilly Partida, Wood Science Professor (ASCP) Performed at: WBPerformed By: #### HIV12 #### [facility] [address] [address] Andriy KarenRecommendation:CommentAbAvita Health System on above: Result Comment: Suggest follow up as clinically appropriate. Performed at: WBPerformed By: #### HIV12 #### [facility] [address] [address] Andriy KarenReflex Criteria:CommentRegency Hospital [place]edo on above: Result Comment: The HPV DNA reflex criteria were not met with this specimen result therefore, no HPV testing was performed. . Performed at: WBPerformed By: #### HIV12 #### [facility] [address] [place] [address] Andriy KarenSpecimen adequacy:[facility] on above:Result Comment: Satisfactory for evaluation. Endocervical and/or squamous metaplastic cells (endocervical component) are present. Performed at: WBPerformed By: #### HIV12 #### [facility] [address] [place] [address] Andriy KarenAFP MATERNAL FOR SPINA BIFIDAon 82-57-4999QIB MoM1.15NormalChillicothe HospitalCommunising memorial hospital on above:Performed By: #### HIV12 #### [facility] [address] [address] Andriy KarenAFP Value35.0 ng/mLNormalChillicothe HospitalCommunising memorial hospital on above: Performed By: #### HIV12 #### [facility] [address] [address] Andriy KarenAFP, Serum for Spina BifidaReportNoFirelands Regional Medical Center South CampusCommunising memorial hospital on above:Performed By: #### HIV12 #### [facility] [address] [place] [address] Andriy KarenCommentCommentRegency Hospital Toledo on above:Result Comment: Eve Perez, Ph.D., [facility] Director . References: Available Upon Request. . Multiples Of Median Cutoffs For AFP Elevations Beebe 2.5 Black 2.8 IDD 2.0 Twins 4.5 Abbreviation Definitions IDD - Insulin Dep Diabetes OSBR - Open Spina Bifida Risk . For further inquiries contact [facility] at [phone].Performed By: #### HIV12 #### [facility] [address] [place] [address] Andriylogan RodgersenGest Age Collection Date16.0 weeksHocking Valley Community HospitalComment on above:Performed By: #### HIV12 #### [facility] [address] [place] [address] Andriy KarenGestat, Age Based onUltrasoundHocking Valley Community HospitalComment on above:Result Comment: 16.0 on 02/17/2021 Recalculations are not recommended when gestational dating by LMP and ultrasound are within 10 days.Performed By: #### HIV12 #### [facility] [address] [place] [address] Andriy KarenInsulin Dep DiabetesNoNormalChillicothe HospitalComment on above: Performed By: #### HIV12 #### [facility] [address] [place] [address] Andriy KarenInterpretationProMedica Flower HospitalComment on above: Result Comment: Interpretation: Screen Negative [...] Customer Services to discuss available options. The [place] [employer] recommends amniocentesis be offered to women age 35 and older.Performed By: #### HIV12 #### [facility] [address] [place] [address] Andriy KarenMaternal Age at EDD30.0 yrHocking Valley Community HospitalComment on above:Performed By: #### HIV12 #### [facility] [address] [address] Andriy KarenMultiple GestationNoNMercy Health St. Elizabeth Boardman HospitalComment on above: Performed By: #### HIV12 #### [facility] [address] [address] Andriy KarenOSBR Risk 1 [id number] Regional Medical Center South CampusComment on above: Performed By: #### HIV12 #### [facility] [address] [address] Andriy KarenPDF.NormalChillicothe HospitalComment on above:Performed By: #### HIV12 #### [facility] [address] [address] Andriy KarenRaceCaucasianNMercy Health St. Elizabeth Boardman HospitalComment on above:Performed By: #### HIV12 #### [facility] [address] [address] Andriy VishalenTest Results:NegativeNoFirelands Regional Medical Center South CampusComment on above: Performed By: #### HIV12 #### [facility] [address] [address] Andriy KarenHEMOGLOBINOPATHY FRACTIONATION CASCADEon 72-88-5677IUE A97.3 %Normal 96.4-98.8The [facility] Campusment on above:Performed By: #### HGBCAS ####[facility] [address] [address]Gerken KarenHGB A22.7 %Normal1.8-3.2The [facility] HospitalComment on above:Performed By: #### HGBCAS ####[facility] [address] [id number] KarenHGB F0.0 %Normal0.0-2.0The [facility] HospitalComment on above: Performed By: #### HGBCAS ####[facility] [address] [address]Gerken KarenHGB S0.0 %Normal0.0The [facility] on above:Performed By: #### HGBCAS ####[facility] [address] KarenInterpretation:CommentNormalThe [facility] on above:Result Comment: Normal hemoglobin present; no hemoglobin variant or thalassemia observed.Performed By: #### HGBCAS ####[facility] [address] KarenVARICELLA IGG ABon 02-07-2021 Varicella Zoster EsK846 indexNormalImmune >165The [facility] on above:Result Comment: Negative <135 Equivocal 135 - 165 Positive >165 A positive result generally indicates exposure to the pathogen or administration of specific immunoglobulins, but it is not indication of active infection or stage of disease.Performed By: #### VARCEL ####[facility] [address] [place] [address] KarenHEP B SURFACE ANTIGEN SCREENon 27-15-9061SGqSr ScreenNegativeNormalNegativeThe [facility] on above:Performed By: #### HBSANS #### [facility] [address] [place] [address] Andriy KarenHEPATITIS C ANTIBODYon 36-25-4312Hyd C Virus Ab<0.0Ptdrri5.0-0.9The [facility] on above:Result Comment: Negative: < 0.8 Indeterminate: 0.8 - 0.9 Positive: > 0.9 . The CDC recommends that a positive HCV antibody result be followed up with a HCV Nucleic Acid Amplification test (373828).Performed By: #### HCV ####[facility] [address] [place] [address] KarenHIV 1 AND 2 WITH REFLEXon 02-06-2021 HIV Screen 4th Generation wRfxNon-ReactiveNormalNon ReactiveThe [facility] on above:Performed By: #### HIV12 #### [facility] [address] [place] [address] Andriy KarenRPR QUANTon 18-90-5673Pjvxs Plasma Reagin, QuantNon-ReactiveNormal NonRea<1:1The [facility] HospitalComment on above:Performed By: #### HIV12 #### [facility] [address] [place] [address] Andriy KarenRUBELLA AB IGGon 40-31-4038Isrovap Antibodies, IgG1.72 indexNormal Immune >0.99The [facility]itan HospitalComment on above:Result Comment: Non-immune <0.90 Equivocal 0.90 - 0.99 Immune >0.99Performed By: #### HIV12 #### [facility] [address] [place] [address] Andriy KarenCBC AUTO DIFFon 70-36-3148TYAA #0.0 103/ulNormal0.0-0.1The [facility] HospitalComment on above:Performed By: #### HBSANS #### [facility] [address] [place] [address] Andriy KarenBasophils/100 WBC (Bld)0.3 %Normal0.2-2.0The [facility] Comment on above:Performed By: #### HBSANS #### [facility] [address] [place] [address] Andriy KarenEO #0.2 103/ulNormal0.0-0.7The [facility] HospitalComment on above: Performed By: #### HBSANS #### [facility] [address] [place] [address] Andriy KarenEosinophils/100 WBC (Bld)1.7 %Normal0.9-7.0The [facility] Comment on above:Performed By: #### HBSANS #### [facility] [address] [place] [address] Andriy KarenErythrocyte distribution width (RBC) [Ratio]14.0 %Nnifqq31.0-15.0The [facility] HospitalComment on above:Performed By: #### HBSANS #### [facility] [address] [place] [address] Andriy KarenHematocrit (Bld) [Volume fraction]34.3 %Critically low36.0-48.0The [facility] HospitalComment on above:Performed By: #### HBSANS #### [facility] [address] [place] [address] Andriy KarenHemoglobin (Bld) [Mass/Vol]11.0 g/dLCritically low12.0-16.0The [facility] HospitalComment on above:Performed By: #### HBSANS #### [facility] [address] [place] [address] Andriy KarenIG #0.02 10e3/ulNormal0.00-0.03The [facility] HospitalComment on above:Performed By: #### HBSANS #### [facility] [address] [place] [address] Andriy KarenIG %0.2 %Normal0.0-0.5The [facility] HospitalComment on above: Performed By: #### HBSANS #### [facility] [address] [place] [address] Andriy KarenLYMPH #3.4 103/ulNormal1.2-3.8The [facility] HospitalComment on above: Performed By: #### HBSANS #### [facility] [address] [place] [address] Andriy KarenLymphocytes/100 WBC (Bld)38.7 %Ohbqef44.5-60.0The [facility] Comment on above:Performed By: #### HBSANS #### [facility] [address] [place] [address] Andriy KarenMANUAL DIFF REQNONormalThe [facility] HospitalComment on above: Performed By: #### HBSANS #### [facility] [address] [place] [address] Andriy KarenMCH (RBC) [Entitic mass]27.2 sjNtabtf76.7-34.0The [facility] Comment on above:Performed By: #### HBSANS #### [facility] [address] [place] [address] Andriy KarenMCHC (RBC) [Mass/Vol]32.1 g/wKXzxueg47.9-35.2The [facility] Comment on above:Performed By: #### HBSANS #### [facility] [address] [place] [address] Andriy KarenMCV (RBC) [Entitic vol]84.9 aGCoreuq95.0-99.0The [facility] Comment on above:Performed By: #### JAMESANS #### [facility] [address] [place] [address] Andriy KarenMONO #0.7 103/ulNormal0.3-0.8The [facility] HospitalComment on above: Performed By: #### JAMSEANS #### [facility] [address] [place] [address] Andriy KarenMonocytes/100 WBC (Bld)8.3 %Normal1.7-12.0The [facility] Comment on above:Performed By: #### TRIPP #### [facility] [address] [place] [address] Andriy KarenNEUT #4.4 103/ulNormal1.4-6.5The [facility] HospitalComment on above: Performed By: #### JAMESANS #### [facility] [address] [place] [address] Andriy KarenNeutrophils/100 WBC (Bld)50.8 %Gdgwxp23.0-75.0The [facility] Comment on above:Performed By: #### TRIPP #### [facility] [address] [place] [address] Andriy KarenPlatelet mean volume (Bld) [Entitic vol]9.8 fLNormal9.5-13.5The [facility] HospitalComment on above:Performed By: #### JAMESANS #### [facility] [address] [place] [address] Andriy AkyhrDYD118 103/ulGtotsw593-852Bgu [facility] HospitalComment on above: Performed By: #### HBSANS #### [facility] [address] [place] [address] Andriy KarenRBC4.04 106/ulCritically low4.20-5.40The [facility] HospitalComment on above:Performed By: #### HBSANS #### [facility] [address] [address] Andriy KarenWBC8.7 103/ulNormal4.0-11.0The [facility] HospitalComment on above: Performed By: #### HBSANS #### [facility] [address] [address] Andriy KarenGLYCOHEMOGLOBIN A1Con 61-69-7675CQR RECOMMENDATIONADA THERAPEUTIC TARGET 6.0 - 7.0 ACTION SUGGESTED > 7.0NoFirelands Regional Medical Center South CampusComment on above:Performed By: #### A1C ####[facility] [address] [address]Gerken KarenGlucose [Mass/Vol]111 mg/dLHocking Valley Community HospitalComment on above:Performed By: #### A1C ####[facility] [address] [address]Gerken DdsapMsQ1y (Bld) [Mass fraction]5.5 %Normal<=6.0The [facility] HospitalComment on above:Performed By: #### A1C ####[facility] [address] [address]Gerken KarenGTT 3 HR PREGon 13-40-0727Cbccijh [Mass/Vol]79 mg/dLNormal 74-106The [facility] HospitalComment on above:Performed By: #### HBSANS #### [facility] [address] [address] Andriy KarenGlucose [Mass/Vol]117 mg/dLNoFirelands Regional Medical Center South CampusComment on above:Performed By: #### HBSANS #### [facility] [address] [address] Andriy KarenGlucose [Mass/Vol]93 mg/dLHocking Valley Community HospitalComment on above:Performed By: #### HBSANS #### [facility] [address] [address] Andriy KarenGlucose [Mass/Vol]46 mg/dLCritically lowThe [facility] HospitalComment on above:Performed By: #### HBSANS #### [facility] [address] [address] Andriy KarenTYPE AND SCREENon 91-82-4002FVHY AND SCREENAntibody Screen NEGATIVE Blood Bank Notes completed by yudelka ABO Rh Typing A Rh Positive Blood Bank Notes completed by [facility] on above:Performed By: #### TNS #### [facility] [address] [address] Andriy KarenCULTURE URINEon 94-17-3953ZVWJCFA URINECulture Observations: MODERATE GROWTH OF MIXED GENITAL HUBER. NO POTENTIAL PATHOGENS SEEN.NormalChillicothe HospitalComment on above:Performed By: #### URCX ####[facility] [address] [address]Gerken KarenUA RANDOM W/MICROSCOPICon 29-99-0855RNENHKCBAGOEJWziwykoeYAWT SEENChillic[facility] Hospital Comment on above:Performed By: #### HBSANS #### [facility] [address] [address] Andriy KarenBilirubin Ql (U)NegativeNormalNEGATIVEChillicothe HospitalCommunising memorial hospital on above:Performed By: #### HBSANS #### [facility] [address] [place] [address] Andriy KarenCASTNONE SEENNormalNONE SEENMercy Health Springfield Regional [facility] Center on above: Performed By: #### HBSANS #### [facility] [address] [address] Andriy KarenClarity (U)CLEARNormalCLEARKnox Community Hospitalment on above: Performed By: #### HBSANS #### [facility] [address] [address] Andriy KarenColor (U)YELLOWNormalYELLOWChillicothe HospitalComment on above: Performed By: #### HBSANS #### [facility] [address] [place] [address] Andriy KarenCrystals LM Nom (Urine sed)NONE SEENNormalNONE SEENChillicothe HospitalComment on above:Performed By: #### HBSANS #### [facility] [address] [place] [address] Andriy KarenEpithelial cells LM Ql (Urine sed)FEWAbnormalNONE SEEN /RAREThe [facility]itan HospitalComment on above:Performed By: #### JAMESANS #### [facility] [address] [place] [address] Andriy KarenGlucose Ql (U)NegativeNormalNEGATIVEChillicothe HospitalComment on above:Performed By: #### HBSANS #### [facility] [address] [place] [address] Andriy KarenHemoglobin Ql (U)NegativeNormalNEGATIVEChillicothe HospitalComment on above:Performed By: #### HBSANS #### [facility] [address] [place] [address] Andriy KarenKetones Ql (U)TRACEAbnormalNEGATIVEChillicothe HospitalComment on above:Performed By: #### HBSANS #### [facility] [address] [place] [address] Andriy KarenLEUKOCYTESNegativeNormalNEGATIVEChillicothe HospitalCommunising memorial hospital on above:Performed By: #### HBSANS #### [facility] [address] [place] [address] Andriy KarenMUCOUSSMALLAbnormalNONE SEENMercy Health Springfield Regional Medical Center on above: Performed By: #### HBSANS #### [facility] [address] [place] [address] Andriy KarenNitrite Ql (U)NegativeNormalNEGATIVEChillicothe HospitalComment on above:Performed By: #### HBSANS #### [facility] [address] [place] [address] Andriy KarenpH (U)7.0 [pH]Normal5-9[facility] on above: Performed By: #### HBSANS #### [facility] [facility] [address] [place] [address] Andriy HmowwKCV0-1Hktwvo4-0Oyn Bellevue HospitalComment on above:Performed By: #### HBSANS #### [facility] [address] [place] [address] Andriy HaqPEC GRAVITY1.860Sljfvb8.005-<=1.025The [facility]aritan HospitalComment on above:Performed By: #### HBSANS #### [facility] [address] [place] [address] Andriy SteinUA PROTEINNegativeNormalNEGATIVE/ TRACEThe Good Samaritan HospitalComment on above:Performed By: #### HBSANS #### [facility] [address] [place] [address] Andriy KarenUrobilinogen Qn (U)0.2 {Juanito'U}/dLNormal0.2 - 1.0The [facility]aritan HospitalComment on above:Performed By: #### HBSANS #### [facility] [address] [place] [address] Andriy KarenWBCNONE SEENNormalNONE SEENThe [facility]aritan HospitalComment on above: Performed By: #### HBSANS #### [facility] [address] [place] [address] Andriy KarenBUNon 04-54-0024Xcde nitrogen [Mass/Vol]5.0 mg/dLCritically low 7.0-17.0The [facility] HospitalComment on above:Performed By: #### TSH, LDH, BUN, URIC, ALT, AST ####[facility] [address] [address]Gerken KarenCBC AUTO DIFFon 27-92-1463QMLX #0.0 103/ulNormal0.0-0.1The [facility] HospitalComment on above:Performed By: #### CBC #### [facility] [address] [place] [address] Andriy KarenBasophils/100 WBC (Bld)0.4 %Normal0.2-2.0The [facility] Comment on above:Performed By: #### CBC #### [facility] [address] [place] [address] Andriy KarenEO #0.1 103/ulNormal0.0-0.7The [facility] HospitalComment on above: Performed By: #### CBC #### [facility] [address] [address] Andriy KarenEosinophils/100 WBC (Bld)1.1 %Normal0.9-7.0The [facility] Comment on above:Performed By: #### CBC #### [facility] [address] [place] [address] Andriy KarenErythrocyte distribution width (RBC) [Ratio]14.6 %Ygbzei84.0-15.0The [facility] HospitalComment on above:Performed By: #### CBC #### [facility] [address] [place] [address] Andriy KarenHematocrit (Bld) [Volume fraction]34.7 %Critically low36.0-48.0The [facility] HospitalComment on above:Performed By: #### CBC #### [facility] [address] [place] [address] Andriy KarenHemoglobin (Bld) [Mass/Vol]11.1 g/dLCritically low12.0-16.0The [facility] HospitalComment on above:Performed By: #### CBC #### [facility] [address] [place] [address] Andriy KarenIG #0.04 10e3/ulCritically high0.00-0.03The [facility] HospitalComment on above:Performed By: #### CBC #### [facility] [address] [place] [address] Andriy KarenIG %0.5 %Normal0.0-0.5The [facility] HospitalComment on above: Performed By: #### CBC #### [facility] [address] [place] [address] Andriy KarenLYMPH #2.1 103/ulNormal1.2-3.8The [facility] HospitalComment on above: Performed By: #### CBC #### [facility] [address] [place] [address] Andriy KarenLymphocytes/100 WBC (Bld)25.5 %Fcylgk15.5-60.0The [facility] Comment on above:Performed By: #### CBC #### [facility] [address] [place] [address] Andriy KarenMANUAL DIFF REQNONormalThe [facility] HospitalComment on above: Performed By: #### CBC #### [facility] [address] [place] [address] Andriy KarenMCH (RBC) [Entitic mass]27.2 wqEbdhuj77.7-34.0[facility] Comment on above:Performed By: #### CBC #### [facility] [address] [place] [address] Andriy KarenMCHC (RBC) [Mass/Vol]32.0 g/kGForcao82.9-35.2[facility] Comment on above:Performed By: #### CBC #### [facility] [address] [place] [address] Andriy KarenMCV (RBC) [Entitic vol]85.0 yVIgjdti42.0-99.0[facility] Comment on above:Performed By: #### CBC #### [facility] [address] [place] [address] Andriy KarenMONO #0.6 103/ulNormal0.3-0.8The [facility] HospitalComment on above: Performed By: #### CBC #### [facility] [address] [place] [address] Andriy KarenMonocytes/100 WBC (Bld)7.1 %Normal1.7-12.0[facility] Comment on above:Performed By: #### CBC #### [facility] [address] [place] [address] Andriy KarenNEUT #5.3 103/ulNormal1.4-6.5The [facility] HospitalComment on above: Performed By: #### CBC #### [facility] [address] [place] [address] Andriy KarenNeutrophils/100 WBC (Bld)65.4 %Ohyxcb68.0-75.0[facility] Comment on above:Performed By: #### CBC #### [facility] [address] [place] [address] Andriy KarenPlatelet mean volume (Bld) [Entitic vol]9.5 fLNormal9.5-13.5The [facility] HospitalComment on above:Performed By: #### CBC #### [facility] [address] [place] [address] Andriy LtrfxHBB385 103/kwTnvnnf526-268Vac [facility] HospitalComment on above: Performed By: #### CBC #### [facility] [address] [place] [address] Andriy KarenRBC4.08 106/ulCritically low4.20-5.40The [facility] Campusment on above:Performed By: #### CBC #### [facility] [address] [place] [address] Andriy KarenWBC8.1 103/ulNormal4.0-11.0The [facility] HospitalComment on above: Performed By: #### CBC #### [facility] [address] [place] [address] Andriy KarenCREATININE CLEARon 23-22-4698YSQZ QMPMPEVZK17.46 ml/minCritically low75.00-115.00The [facility] on above:Performed By: #### HIV12 #### [facility] [address] [place] [address] Andriy KarenCREA, 24 HR UR579.12 mg/24 hrCritically dcu746.00-1,800.00The [facility] Campusment on above:Performed By: #### HIV12 #### [facility] [address] [place] [address] Andriy KarenCreatinine [Mass/Vol]0.53 mg/dLNormal0.52-1.04The [facility] on above:Performed By: #### HIV12 #### [facility] [address] [place] [address] Andriy KarenURINE CREAT30.48 mg/oKLrxtok95.00-300.00The [facility] on above:Performed By: #### HIV12 #### [facility] [address] [place], [place] [address] Andriy RodgersenGLUCOSE - 1HRon 85-72-5656Fcqigea [Mass/Vol]150 mg/dLCritically high 74-106The [facility] on above:Performed By: #### [id number] ####[facility] [address] [address]Gerken KarenLDHon 73-91-1214AXZ603 U/XAfcfrh795-100Fcb [facility] HospitalCommunising memorial hospital on above:Performed By: #### TSH, LDH, BUN, URIC, ALT, AST ####[facility] [address] [address]Gerken KarenPROTEIN 24HR URINEon 01-26-2021T PROT, 24 HR UR32.3 mg/24 hrCritically low42.0-225.0The [facility] on above:Performed By: #### [id number] ####[facility] [address] [address]Gerken KarenUR PROT 1.7 mg/dLNormal<=12.0The [facility] on above:Performed By: #### [id number] ####[facility] [address] KarenUR TOT PCR4556 ml/24 HRNormalThe [facility] on above:Performed By: #### [id number] ####[facility] Kvtylnzcto6497 [address]ken KarenPerformed By: #### HIV12 #### [facility] [address] [place], [place] [address] Andriy HaqGOTon 89-00-6681EWT [Catalytic activity/Vol]17 U/TTvmrqz99-42Nit [facility] on above:Performed By: #### TSH, LDH, BUN, URIC, ALT, AST ####[facility] [address] [address]Gerken KarenSGPTon 78-10-6861SXL [Catalytic activity/Vol]16 U/LNormal9-52 [facility] HospitalComment on above:Performed By: #### TSH, LDH, BUN, URIC, ALT, AST ####[facility] I[address] ToroHon 19-28-0277TCA9.220 uIU/mLCritically low0.470-4.680The [facility] HospitalComment on above:Performed By: #### TSH, LDH, BUN, URIC, ALT, AST ####[facility] [address] RANGESEE BELOWNoFirelands Regional Medical Center South CampusComment on above: Result Comment: <0.34 UIU/ml HYPERTHYROID 0.34-5.60 UIU/ml EUTHYROID >5.60 UIU/ml HYPOTHYROIDPerformed By: #### TSH, LDH, BUN, URIC, ALT, AST ####[facility] [address] [place] [address] KarenURIC ACID SERUMon 73-44-0273Gmftq [Mass/Vol]3.6 mg/dLNormal2.5-6.2The [facility] HospitalComment on above:Performed By: #### TSH, LDH, BUN, URIC, ALT, AST ####[facility] Hbp[address] KarenUS PREG TVon 43-94-9776QX PREG TVEXAMINATION: US PREG TV HISTORY: Secondary [...] Electronically authenticated by: ANGELO BLANKENSHIP Date: 2021-01-24 10:12NoFirelands Regional Medical Center South CampusABO AND RH TYPEon 09-30-3008GTS and Rh group Nom (Bld)ABO Rh Typing A Rh PositiveHocking Valley Community HospitalComment on above:Performed By: #### ABORH ####[facility] [address] [place], [place] [address]Frudin KarenPREG QUANT HCGon 37-37-0885JSY SNMLI92482 mIU/mLNormalChillicothe HospitalComment on above:Result Comment: Previously reported as: 3 On 01/19/2021 11:21 By OI2Hkzuskqrf By: #### HIV12 #### [facility] [address] [place], [place] [address] Andriy RodgersenHCG RANGESEE BELOWHocking Valley Community HospitalComment on above:Result Comment: 5-50 0-1 WEEK 40-300 1-2 WEEKS 100-1,000 2-3 WEEKS 500-6,000 3-4 WEEKS 5,000-200,000 1-2 MONTHS 10,000-100,000 2-3 MONTHS 3,000-50,000 2ND TRIMESTER 1,000-50,000 3RD TRIMESTERPerformed By: #### HIV12 #### [facility] [address] [place], [place] [address] Andriy Stein Vital Signs Date TimeVital SignValuePerforming XxhovoghyXvzlalsr74-80-5558 14:09-0400Body mass index (BMI) [Ratio]34.46 kg/m2Deborah RUBIN Work Phone: [facility] HospitalLiarvhmmyh47-14-4006 14:09-0400Body .06 kgDeborah RUBIN Work Phone: [facility] HospitalWpybuqakxj33-27-5025 14:09-0400Diastolic blood ghyhybef38 mm[Hg]Deborah RUBIN Work Phone: [facility] HospitalFlydmzugip85-21-4476 14:09-0400Systolic blood mm[Hg]Deborah RUBIN Work Phone: [facility] HospitalYyazztldfo63-36-1482 11:06-0400Body mass index (BMI) [Ratio]34.47 kg/l8Rwowr Jenny DO Work Phone: [phone] [place], [place] [address]Rnylalmbbb45-26-7361 11:06-0400Body wmazml64.08 kgCorey Jenny DO Work Phone: [phone] [place], [place] [address]Ylfwzbaylh66-88-6843 11:06-0400Diastolic blood ifshqtmu30 mm[Hg]Scooby Jenny DO Work Phone: [phone] [place], [place] [address]Eeqqtursva44-70-0084 11:06-0400Systolic blood bwcksyrf646 mm[Hg]Scooby Jenny DO Work Phone: [phone] [place], [place] [address]Lolyamjeki66-85-3836 13:35-0400Body mass index (BMI) [Ratio]33.77 kg/m2Deborah Kwan PA Work Phone: [phone] [place], [place] [address]Qspazflrqj65-56-4172 13:35-0400Body .25 kgAmy Aquiles PA Work Phone: [phone] [place], [place] [address]Wuuizxcdww98-23-3595 13:35-0400Diastolic blood kulplxvs61 mm[Hg]Deborah Kwan PA Work Phone: [phone] [place], [place] [address]Ozswowyebh44-90-1575 13:35-0400Systolic blood xlcrijpp433 mm[Hg]Deborah Kwan PA Work Phone: [phone] [place], [place] [address]Tgkjqwfwdk92-65-2354 11:04-0400Body mass index (BMI) [Ratio]33.77 kg/r7ZgqyuvclJem Ambrosio BATCH MIXER OPERATOR Work Phone: [phone] [place], [place] [address]Qlwwhkqijl30-49-1231 11:04-0400Body opmgwt29.25 kgJem Ambrosio BATCH MIXER OPERATOR Work Phone: [phone] [place], [place] [address]Mtzhfozpoc55-56-9966 11:04-0400Diastolic blood qvgxukui41 mm[Hg]Jem Ambrosio BATCH MIXER OPERATOR Work Phone: [phone] [place], [place] [address]Zlmpwsyiej31-54-4432 11:04-0400Systolic blood xrxgzpvy198 mm[Hg]Jem Ambrosio BATCH MIXER OPERATOR Work Phone: [phone] [place], [place] [address]Hcpwchtmsn74-09-9387 13:25-0400Body mass index (BMI) [Ratio]33.44 kg/m2Deborah Kwan PA Work Phone: [facility] HospitalXkbtkvkkyz19-09-5324 13:25-0400Body .36 kgDeborah Kwan PA Work Phone: [facility] HospitalWntigdwdxc94-31-1109 13:25-0400Diastolic blood fmeocupg54 mm[Hg]Deborah Kwan PA Work Phone: [facility] HospitalOrvwqewiow08-38-3683 13:25-0400Systolic blood cocwhyxi401 mm[Hg]Deborah Kwan PA Work Phone: [phone] [place], [place] [address]Jwfsnizunn78-83-5131 15:09-0400Body mass index (BMI) [Ratio]33.3 kg/m2Deborah Kwan PA Work Phone: [phone] HospitalEwppcyjmtw35-90-3783 15:09-0400Body ochoke24 kg Deborah Kwan PA Work Phone: [facility] HospitalJtcjpiffsz13-67-7986 15:09-0400Diastolic blood mm[Hg]Deborah Kwan PA Work Phone: [phone] [place], [place] [address]Pqedilkqsm06-19-4434 15:09-0400Systolic blood mm[Hg]Deborah Kwan PA Work Phone: [phone] [place], [place] [address]Qusikoufet48-07-8944 15:03-0400Body mass index (BMI) [Ratio]33 kg/c6Rkgtc Jenny DO Work Phone: [facility] HospitalRaeokympcz89-19-2079 15:03-0400Body gwijns20.2 kg Scooby Jenny DO Work Phone: [phone] [place], [place] [address]Tdiryrpbda80-42-9025 15:03-0400Diastolic blood qquphdtu65 mm[Hg]Scooby Jenny DO Work Phone: [phone] [place], [place] [address]Dawolvchen95-29-9651 15:03-0400Systolic blood paqcanbf920 mm[Hg]Scooby Jenny DO Work Phone: [facility] HospitalSmzcrgxlxd16-29-3240 13:37-0400Body mass index (BMI) [Ratio]32.79 kg/m2Amy Winfield PA Work Phone: [facility] HospitalMbbkrhnbij03-48-0398 13:37-0400Body wumzjt86.64 kgDeborah Aquiles RUBIN Work Phone: [phone] [place], [place] [address]Cmurbmvsfo19-21-5672 13:37-0400Diastolic blood hevyeabj25 mm[Hg]Deborah Aquiles RUBIN Work Phone: [phone] [place], [place] [address]Txnmmvgzxo59-68-7851 13:37-0400Systolic blood azrhpynd640 mm[Hg]Deborah Aquiles PA Work Phone: [phone] [place], [place] [address]Vqhuowytez30-56-8411 10:26-0400Body ktywnk450.6 cmCorey Jenny DO Work Phone: [phone] [place], [place] [address]Dqbxgkzdbi62-37-8252 10:25-0400Body mass index (BMI) [Ratio]32.27 kg/t9Zlejp Jenny DO Work Phone: [phone] [place], [place] [address]Fptqkppmnh80-35-3747 10:25-0400Body .28 kgCorey Jenny DO Work Phone: [phone] [place], [place] [address]Faguvranvp17-63-5555 10:25-0400Diastolic blood jytgxlrm18 mm[Hg]Scooby Jenny DO Work Phone: [phone] [place], [place] [address]Tuxvjkynvo34-64-7830 10:25-0400Systolic blood zamhjnoa627 mm[Hg]Scooby Jenny DO Work Phone: 1(586)647-[address] [place], [place] [address]Qavvldaggl48-28-2748 15:59-0400Body mass index (BMI) [Ratio]34.57 kg/g4IrcnphOma Davis RN Work Phone: [phone])230-[address] [place], [place] [address]706-02-2025 15:59-0400Body qaeosf00.73 kgOma Davis RN Work Phone: [phone] [place], [place] 7888005-22-2025 10:57-0400Body bycxop30.09 kgCorey Jenny DO Work Phone: [phone] [place], [place] [address]Gsqqznhccz22-05-8836 10:57-0400Diastolic blood loqrhsid92 mm[Hg]Scooby Jenny DO Work Phone: [phone] [place], [place] [address]Prqitqmbsz69-20-6837 10:57-0400Systolic blood edmhyypc788 mm[Hg]Scooby Alvarado DO Work Phone: [facility] HospitalFfsicdtpdc92-26-4153 14:37-0400Body hemvwq43.84 kgSaint [facility]04-24-2025 14:37-0400Diastolic blood upxpqfng34 mm[Hg][facility]04-24-2025 14:37-0400Systolic blood foxilsob366 mm[Hg][facility]01-15-2022 13:35-0500Body mmwsjotdidu81.4 [degF] Renita Tingzhyun Other [place] Other 01-15-2022 13:35-3766BdD9% (BldA) [Mass fraction]98 % Renita Ginty Other [employer] [employer] Other 08-28-2021 04:06-0400Body ezddpr45.0088 kgANDARIADNA OTOOLE [facility] HospitalComment on above:Performed By: #### HIV12 #### [facility] [address] [place] [address] Andriy Stein Encounters Encounter DateEncounter TypeCare ProviderFacilityStart: 04-22-2025 End: 61-83-4852Fxnqgfcqv Result EncounterJem Ambrosio NP Work Phone: noms External Department UnsolicitedStart: 04-22-2025 End: 80-52-7898Zgbtaygki Result EncounterJem Ambrosio NP Work Phone: noms External Department UnsolicitedStart: 04-21-2025 End: 46-90-2234eemfktwvzfZYU RAMEYNot AvailableStart: 04-21-2025 End: 71-83-5722Icvvlz outpatient visit 15 minutesDeborah RUBIN Work Phone: noInspira [facility] OBGYNComment on above:Third trimester ([facility]); 38 weeks gestation of ([facility]Start: 04-21-2025 End: 62-88-3005Dazhmm flowsRocky RUBIN Work Phone: [facility] OBGYNStart: 04-21-2025 End: 41-04-3916Izoyqn flowsheetDeborah Kwan PA Work Phone: [facility] OBGYNStart: 04-14-2025 End: 98-38-9829Ofkglv flowsheetCorey Jenny DO Work Phone: [facility] [place] OBGYNStart: 04-14-2025 End: 84-80-0722Njomqn flowsheetCorey Jenny DO Work Phone: [facility] [place] OBGYNStart: 04-14-2025 End: 41-06-1751Krwfak outpatient visit 15 minutesCorey Jenny DO Work Phone: [facility] OBGYNComment on above:Third trimester ([facility]); 37 weeks gestation of ([facility])Start: 04-14-2025 End: 06-58-6010nojoldocagFHSVR FAZIONot AvailableStart: 04-07-2025 End: 21-05-2191Urtxqd marquitaRocky RUBIN Work Phone: [facility] OBGYNStart: 04-07-2025 End: 53-74-8043Tjroyh marquitaheetDeborah Aquiles PA Work Phone: [facility] [place] OBGYNStart: 04-07-2025 End: 03-52-1535Xgntgr outpatient visit 15 minutesAmy Aquiles PA Work Phone: [facility] OBGYNComment on above:Third trimester ([facility]); 36 weeks gestation of ([facility])Start: 04-07-2025 End: 47-78-9265bahnhmbkhuVIT RAMEYNot AvailableStart: 03-31-2025 End: 91-84-6862Qguiedbdk Result Meeta Ambrosio NP Work Phone: [facility] External Department UnsolicitedStart: 03-31-2025 End: 02-00-5028Qrhptkthl Result EncounterJem Ambrosio BATCH MIXER OPERATOR Work Phone: NO External Department UnsolicitedStart: 03-24-2025 End: 21-48-1692Lpslig flowsLaura Ambrosio BATCH MIXER OPERATOR Work Phone: [facility] [place] OBGYNStart: 03-24-2025 End: 60-63-7517Ttbgsr flowsLaura Ambrosoi BATCH MIXER OPERATOR Work Phone: NO [facility] OBGYNStart: 03-24-2025 End: 66-12-7670Enmhby outpatient visit 15 minutesJem Ambrosio NP Work Phone: NO [facility] OBGYNComment on above:34 weeks gestation of ([facility]); Third trimester ([facility]); Gestational diabetes mellitus (GDM) in third trimester, gestational diabetes method of control unspecified ([facility])Start: 03-24-2025 End: 56-39-2102mjfyhjyzxlRTLJEFKG EBERLYNot AvailableStart: 03-20-2025 End: 98-03-4351Xaspfbfan [facility] LDMaternal- Medicine at [facility] Medical Centertart: 03-10-2025 End: 68-03-0186Eyfoys Magdy RUBIN Work Phone: [facility] [place] OBGYNStart: 03-10-2025 End: 57-56-3377Qldnya Magdy RUBIN Work Phone: NO [facility] OBGYNStart: 03-10-2025 End: 02-97-2764Scnebh outpatient visit 15 minutesDeborah RUBIN Work Phone: [facility] OBGYNComment on above:32 weeks gestation of ([facility]); Third trimester ([facility])Start: 03-10-2025 End: 93-91-1328alloomfdkfKYA RAMEYNot AvailableStart: 02-25-2025 End: 12-11-5365sxskigztnlHZZ RAMEYNot AvailableStart: 02-16-2025 End: 11-95-4954pteimxjwcaGVE RAMEYNot AvailableStart: 02-16-2025 End: 09-09-6318Nizycv outpatient visit 15 minutesDeborah RUBIN Work Phone: [facility] OBGYNComment on above:Size of fetus inconsistent with dates in second trimester ([facility]) (Primary Dx); 28 weeks gestation of ([facility]); Third trimester ([facility])Start: 02-16-2025 End: 81-22-1222Xiwfza flowsRocky RUBIN Work Phone: [facility] OBGYNStart: 02-16-2025 End: 23-40-7269Twqcnh marquitaRocky RUBIN Work Phone: [facility] OBGYNStart: 02-13-2025 End: 18-97-3732Ocrnpakie Result EncounterCorey Jenny DO Work Phone: [facility] External Department UnsolicitedStart: 02-13-2025 End: 20-72-3382Xpvoafrds Result EncounterCorey Jenny DO Work Phone: NOJQ External Department UnsolicitedStart: 02-02-2025 End: 82-29-8225Eryzyy outpatient visit 15 minutesCorey Jenny DO Work Phone: [facility] OBGYNComment on above:Second trimester ([facility]); 26 weeks gestation of ([facility]); Diabetes mellitus screeningStart: 02-02-2025 End: 08-97-5455ethsssouxfSCZML FAZIONot AvailableStart: 02-02-2025 End: 67-40-1306Wxulra flowsheetCorey Jenny DO Work Phone: [facility] OBGYNStart: 02-02-2025 End: 32-88-3330Cugktw flowsheetCorey Jenny DO Work Phone: [facility] OBGYNStart: 01-26-2025 End: 69-29-3337mdhhyxhnynGVETL FAZIONot AvailableStart: 01-01-2025 End: 06-80-1587Rhxivb Magdy RUBIN Work Phone: [facility] OBStart: 01-01-2025 End: 22-63-8697Jcavoz flowsRocky RUBIN Work Phone: [facility] OBStart: 01-01-2025 End: 33-42-5674Tzqmwpvl flow sheetDeborah RUBIN Work Phone: [facility] BCP OBComment on above:Second trimester ([facility]); 22 weeks gestation of ([facility])Start: 01-01-2025 End: 07-50-7189phwfnbkavwXXE RAMEYNot AvailableStart: 12-19-2024 End: 55-13-8480Qmncioiku Result EncounterCorey Jenny DO Work Phone: [facility] External Department UnsolicitedStart: 12-19-2024 End: 72-76-7132Otoiyysfn Result EncounterCorey Jenny DO Work Phone: [facility] External Department UnsolicitedStart: 12-04-2024 End: 51-00-9601Kumhmh flowsheetCorey Jenny DO Work Phone: [facility] BCP OBStart: 12-04-2024 End: 86-69-2376Lspvcj flowsheetCorey Jenny DO Work Phone: [facility] BCP OBStart: 12-04-2024 End: 48-38-8637Vtgukjsxt Result EncounterCorey Jenny DO Work Phone: [facility] External Department UnsolicitedStart: 12-04-2024 End: 75-84-3353Toxttrgh Result EncounterDeborah RUBIN Work Phone: [facility] External Department UnsolicitedStart: 12-04-2024 End: 21-99-6592Apoomulvm encounterDeyarelis STAPLES Work Phone: [phone]-Ruukj [facility] Start: 12-04-2024 End: 94-39-2014cfnxzawiajAYYTP FAZIONot AvailableStart: 12-04-2024 End: 04-46-7204Rydmnzr encounter procedureCorey Jenny DO Work Phone: noms HealthcareStart: 12-04-2024 End: 49-31-8765Rcdhlyzy flow sheetCorey Jenny DO Work Phone: noms BCP OBComment on above:Second trimester ([facility]); 18 weeks gestation of ([facility]); Well woman exam with routine gynecological exam; Screening, , for anatomic survey ([facility]); Screen for STD (sexually transmitted disease); Need for maternal serum alpha-protein (MSAFP) screening ([facility])Start: 11-24-2024 End: 27-99-3237jqsnbttxgwXbmhtr M Frey RN Work Phone: [phone]-Uhtnj [facility] Comment on above:Gestational diabetes mellitus (GDM) in second trimester, gestational diabetes method of control unspecifiedStart: 11-13-2024 End: 37-90-4523Rclqhrpp flow sheetCorey Jenny DO Work Phone: noms BCP OBComment on above:15 weeks gestation of ; Second trimester ; Diet controlled gestational diabetes mellitus (GDM), antepartum; Gestational diabetes mellitus (GDM), antepartum, gestational diabetes method of control unspecified; Elevated glucose tolerance testStart: 11-13-2024 End: 46-04-3973jtmugiuqidUCTAD FAZIONot AvailableStart: 11-11-2024 End: 99-99-2470Llbypmimj Result EncounterCorey Jenny DO Work Phone: noms External Department UnsolicitedStart: 11-11-2024 End: 25-55-8073Pgbdnzzoa Result EncounterCorey Jenny DO Work Phone: noms External Department UnsolicitedStart: 10-16-2024 End: 69-73-1523Pqdnfh outpatient visit 5 minutesNoms Bcp Ob Jenny NurseNOMS BCP OBComment on above:GA: 85j2mAjtvw: 10-16-2024 End: 20-75-6322wcbyykjjeaWYSSC FAZIONot AvailableStart: 12-20-2023 End: 49-48-0221tpmefpyjjcGE PCP NO [facility]CPPro[facility] HospitalStart: 12-19-2023 End: 12-74-5376Lzavkcwtt department patient visitAMBER FISHERMemorial Health System [facility] Hospitaltart: 12-19-2023 End: 24-11-5504Juosohzpt department patient visitNO PCP NO PCPProMedica [facility] HospitalStart: 12-14-2023 End: 72-73-3535Ftmbkplhn Result EncounterCorey Jenny DO Work Phone: noms External Department UnsolicitedStart: 12-14-2023 End: 87-07-4202Ratepbrxz Result EncounterCorey Jenny DO Work Phone: noms External Department UnsolicitedStart: 03-01-2022 End: 90-50-4849tpgnaiiivyMnokfa A AlejaFacility:[facility]beightart: 11-08-2021 End: 22-42-8148kcgzidukimOU SCOOBY FAZIOFacility:F7Pdupk: 08-01-2021 End: 69-83-8182btlpgmgruuRV SCOOBY FAZIOFacility:H9Lbrwh: 07-30-2021 End: 94-68-4621Arytvfheot and management of inpatientDR SCOOBY FAZIOFacility:H1 Start: 07-13-2021 End: 62-99-2294nnanrvesopHG SCOOBY FAZIOFacility:G5Ljtim: 07-11-2021 End: 74-21-6629ilrvgenmatZC NADIA Harrison WESTFacility:Y4Jzdpu: 07-09-2021 End: 74-66-1437okmjaydousJjaed Ginty Other [facility] Other Start: 61-72-1959Ctgyho outpatient visit 15 minutes Renita GintyFPG Urgent Care ClydeStart: 07-06-2021 End: 52-19-1867jcnrnondkqPN SCOOBY FAZIOFacility:K6Wubgs: 06-20-2021 End: 35-55-7185ypkwcptbcvUG NADIA V WESTFacility:J6Ciigk: 06-08-2021 End: 26-81-1702dmzryesltfTN SCOOBY FAZIOFacility:L1Iiufq: 05-04-2021 End: 18-87-7057dzzemlnxgqBXBRAE MOOREFacility:J0Ozjxx: 04-30-2021 End: 68-05-3452hcypaxuyckJUACBM MOOREFacility:O9Tbuds: 04-28-2021 End: 31-19-6817eecbexnkjdOGGEFY MOOREFacility:Y8Btlyr: 04-20-2021 End: 49-96-9637zbmagtfgivUXMPIE MOOREFacility:Y5Accsc: 04-07-2021 End: 95-58-2180gknotyyftaVJOZE [facility] MED[facility] CENTERANDERFacility:Z9Sdqwv: 03-21-2021 End: 03-98-8524ldiwpjdnfpRKACVD MOOREFacility:X0Enxaj: 02-17-2021 End: 88-75-8653rhvwdizsazTUBRNM MOOREFacility:H4Nzxzb: 02-05-2021 End: 88-68-7297tnzbekbkobDWEDAQ MOOREFacility:M5Jeywp: 01-28-2021 End: 37-13-9072fzdnmhfmxcPYQMIL MOOREFacility:M3Dtcsu: 01-26-2021 End: 30-07-1901abzrutciasQFKFWZ MOOREFacility:P3Poutn: 01-24-2021 End: 42-49-7170avcqspfrprBZIYSN MOOREFacility:S9Tlyzq: 01-19-2021 End: 40-89-3481sweeisbdhvVJSGXR MOOREFacility:H1 Procedures DateProcedureProcedure DetailPerforming ClinicianStart: 40-93-6686PU OB BPP W NON-STRESSKristina Hebert BATCH MIXER OPERATOR Work Phone: Start: 01-69-0626Btnsx dip stick/tablet rgnt non-auto w/o micrscpAmy Aquiles RUBIN Work Phone: Start: 22-29-1679Zhnov dip stick/tablet rgnt non-auto w/o micrscpCorey Jenny DO Work Phone: Start: 16-36-1822Yminf dip stick/tablet rgnt non-auto w/o micrscpAmy Aquiles RUBIN Work Phone: Start: 82-61-9155RB OB BPP W NON-STRESSKristinpaco Ambrosio BATCH MIXER OPERATOR Work Phone: Start: 65-51-0699Xpqsw dip stick/tablet rgnt non-auto w/o micrscpTriciaa Hebert BATCH MIXER OPERATOR Work Phone: Start: 07-19-6768Nnvlr dip stick/tablet rgnt non-auto w/o micrscpAnegra RUBIN Work Phone: Start: 73-89-2260ULZ CBC WITH AUTO DIFFCorey Jenny DO Work Phone: Start: 53-50-5073Lewkd dip stick/tablet rgnt non-auto w/o micrscpCorey Jenny DO Work Phone: Start: 02-77-0294Bsyyb dip stick/tablet rgnt non-auto w/o micrscpAnegra RUBIN Work Phone: Start: 14-78-8405DF OB ANATOMYCorey Jenny DO Work Phone: Start: 74-48-8281DB OB CERVICAL LENGTHCorey Jenny DO Work Phone: Start: 65-54-9039DNFJNMQHH VAGINITIS (HTRX)Deborah RUBIN Work Phone: Start: 26-40-4114Mgusz dip stick/tablet rgnt non-auto w/o micrscpCorey Jenny DO Work Phone: Start: 42-40-8662OVZ,APTIMA HPV,AGE GDLNCorey Jenny DO Work Phone: Start: 16-60-9666Qjgpurzatci observation [Identifier] in Cervix by Cyto stainCorey Jenny DO Work Phone: Start: 82-70-4211Mhjqswl quantitative blood xcpt reagent stripCollelsy Oliva Elda BARRERA Work Phone: Start: 22-21-4264Yalgd dip stick/tablet rgnt non-auto w/o micrscpCorey Jenny DO Work Phone: Start: 48-48-3875XVR TESTCorey Jenny DO Work Phone: Start: 10-16-2024 End: 87-25-1340Utbpo dip stick/tablet rgnt non-auto w/o micrscpCorey Jenny DO Work Phone: Start: 01-72-6402WZ OB TRANSVAGINALCorey Jenny DO Work Phone: Start: 98-30-7360Tceetulk of Products of Conception, External ApproachANDARIADNA SACRAMENTOStart: 43-55-6912Fwwszdbs of Amniotic Fluid, Therapeutic from Products of Conception, Via Natural or Artificial OpeningANDJEFFERSON [facility]Start: 91-49-1997Xdbzwziycbnw of Other Hormone into Peripheral Vein, Percutaneous ApproachCOBALT REHABILITATION (TBI) HOSPITALARIADNA SACRAMENTOStart: 21-82-7519Ivtioy Perineum Skin, External ApproachRENAY OTOOLE Plan of Treatment DateCare ActivityDetailAuthorStart: 80-77-3908CIrJ,Tdap and Td Vaccines (3 - Td or Tdap)DTaP,Tdap and Td Vaccines (3 - Td or Tdap)[facility] HospitaledicCambridge [facility] SystemStart: 24-42-3192Hiaoaxqkn for malignant neoplasm of cervixNOMS HealthcareStart: 27-53-6986Laxke BMI ScreeningAdult BMI ScreeningProKettering Memorial Hospitalca [facility] SystemStart: 06-15-2025 End: 52-37-0999uuqgnmvydd27/22/2025 9:50 AM EST Visit [facility] [address] [place], [id number] Scooby Alvarado, DO [address] [place] [address] [facility] OBGYNStart: 04-21-2025 End: 28-44-4095Cnaprxy encounter procedureNOMS Seminole OBGYNComment on above: ArrivedStart: 04-14-2025 End: 59-20-9173Dfhiycd encounter procedureNOMS Sanam OBGYNComment on above: ArrivedStart: 04-07-2025 End: 33-90-5633SBVFYJS, GROUP B STREP WITH SUSCEPTIBLITYCULTURE, GROUP B STREP WITH SUSCEPTIBLITY Lab Routine Third trimester ([facility]) Expected: 04/07/2025, Expires: 04/07/2026[facility] Work Phone: comment on above:Expected: 04/07/2025, Expires: 04/07/2026Start: 04-07-2025 End: 37-58-3364Vpezqym encounter procedureNOMS Sanam OBGYNComment on above: ArrivedStart: 03-24-2025 End: 94-47-6553SZ biophysical profile w non stress testUS biophysical profile w non stress test Imaging Routine Third trimester ([facility]) Expected: 03/24/2025 (Approximate), Expires: 09/21/2025[facility] Work Phone: comment on above:Expected: 03/24/2025 (Approximate), Expires: 09/21/2025Start: 03-24-2025 End: 84-74-1581Tlnhuho encounter procedureNOMS Seminole OBGYNComment on above: ArrivedStart: 03-10-2025 End: 85-14-8825Clwlvrl encounter ybzgzsjcm02/16/2025 1:20 PM EDT Routine [facility] [address] [place], [id number] Deborah Kwan PA [address] [place] [address] ArrivedNOMS Seminole OBGYNComment on above:ArrivedStart: 03-03-2025 End: 60-24-5854Fieuoxx encounter mdrslzkma45/09/2025 2:40 PM EDT Routine [facility] [address] [place], [id number] Scooby Alvarado DO [address] [place] [address] [facility] OBGYNStart: 02-25-2025 End: 27-63-5665Mbbnbmzdpnro / ancillary services defhwgipma10/03/2025 3:00 PM EDT Ancillary Procedure [facility] [address] [place] [id number] [facility] OBGYNStart: 55-52-4707ZHKYN-19 Vaccine ( season)COVID-19 Vaccine ( season)[facility] Start: 76-67-6965Jzsfjhlmr vaccinationProKettering Memorial Hospitalca Health SystemStart: 02-16-2025 End: 54-29-1755Eobagwq encounter /25/2025 2:30 PM EDT Routine [facility]BGYDelia [address] [place], [id number] Deborah Kwan PA [address] [place] [address] [facility] OBGYNStart: 02-16-2025 End: 62-12-6826AA for pregnancyUS OB follow up transabdominal approach Imaging Routine Size of fetus inconsistent with dates in second trimester ([facility]) Expected: 02/16/2025, Expires: 06/18/2025[facility] Work Phone: comment on above:Expected: 02/16/2025, Expires: 06/18/2025Start: 02-02-2025 End: 51-99-9142Elfvqvh encounter procedureNOMS BCP OBComment on above:Arrived Start: 02-02-2025 End: 68-63-2610WRJ panel - Blood by Automated countCBC Lab Routine Diabetes mellitus screening Expected: 02/02/2025 (Approximate), Expires: 02/02/2026[facility] Work Phone: comment on above:Expected: 02/02/2025 (Approximate), Expires: 02/02/2026Start: 01-20-2025 End: 23-70-0099Ttwqjzmrfbvw / ancillary services /29/2025 3:00 PM EDT Ancillary Procedure [facility] [address] [place] [address] [facility]S BCP OBStart: 01-01-2025 End: 93-57-7738Lamvpzy encounter procedureNOMS [facility] OBComment on above:Arrived Start: 60-67-7668Snfljsx ScreeningTobacco ScreeningProLicking Memorial Hospital SystemStart: 97-92-7660Tkdkq BMI ScreeningAdult BMI ScreeningAtrium Health Lincolntart: 12-04-2024 End: 04-13-1491Nmwwy fetoprotein, maternalAlpha fetoprotein, maternal Lab Routine Need for maternal serum alpha-protein (MSAFP) screening ([facility]) Expected: 12/04/2024 (Approximate), Expires: 01/03/2025[facility] HealthcareComment on above:Expected: 12/04/2024 (Approximate), Expires: 01/03/2025Start: 12-04-2024 End: 15-86-9525SQ for pregnancyUS OB 14+ weeks anatomy scan Imaging Routine Screening, , for anatomic survey ([facility]) Expected: 12/04/2024, Expires: 03/06/2025[facility] HealthcareComment on above:Expected: 12/04/2024, Expires: 03/06/2025Start: 12-04-2024 End: 80-31-5669Fxefwga encounter ebzuxvjat22/12/2025 9:40 AM EDT Routine [facility] [address] [phone] Scooby Alvarado, DO [address] [place] [address] NOMS BCP OBStart: 11-13-2024 End: 52-60-3380Czyzqey encounter cofrbughw52/22/2025 10:40 AM EDT Routine [facility] [address] [place] [phone] Scooby Alvarado, DO [address] [place] [address] NOMS BCP OBStart: 10-16-2024 End: 41-40-7176HLN/RhABO/Rh Lab Routine Missed menses , unspecified gestational age Expected: 10/16/2024 (Approximate), Expires: 10/16/2025[facility] HealthcareComment on above:Expected: 10/16/2024 (Approximate), Expires: 10/16/2025Start: 10-16-2024 End: 67-56-4472Qnnij type and Indirect antibody screen panel - BloodType and screen Lab Routine Missed menses , unspecified gestational age Expected: 10/16/2024 (Approximate), Expires: 10/16/2025[facility] Work Phone: comment on above:Expected: 10/16/2024 (Approximate), Expires: 10/16/2025Start: 10-16-2024 End: 72-86-5967Ktlmi of abuse panel - Urine by Screen methodRapid drug screen, urine Lab Routine , unspecified gestational age Encounter for supervision of normal first in first trimester Expected: 10/16/2024 (Approximate), Expires: 10/16/2025[facility] HealthcareComment on above:Expected: 10/16/2024 (Approximate), Expires: 10/16/2025Start: 56-82-7088ILEVA-19 Vaccine ( season)COVID-19 Vaccine ( season)[facility] Start: 76-79-0564Bilczppgb for malignant neoplasm of cervixNOMS HealthcareStart: 81-71-5943HVZ Vaccines (1 - 3-dose SCDM series)HPV Vaccines (1 - 3-dose SCDM series)[facility] HealthcareStart: 74-94-8016Evrmpnzxq for malignant neoplasm of cervixPap SmearNOND HealthcareStart: 46-94-9740Vkohocrwz B Vaccines (1 of 3 - 19+ 3-dose series)Hepatitis B Vaccines (1 of 3 - 19+ 3-dose series)[facility] HealthcareStart: 63-97-1366Fpxcw BMI Follow Up PlanAdult BMI Follow Up Plan [facility] SystemStart: 60-22-8443Dniujib of varicella vaccination Varicella Vaccines (1 of 2 - 13+ 2-dose series)[facility] HealthcareStart: 2003 Depression ScreeningDepression ScreeningMercy Health SystemStart: 1998 DTaP/Tdap/Td Vaccines (1 - Tdap)DTaP/Tdap/Td Vaccines (1 - Tdap)[facility] Healthcare Start: 91-92-2220AFS Vaccines (1 of 1 - Standard series)MMR Vaccines (1 of 1 - Standard series)[facility] HospitalBacteria identified in Urine by CultureUrine culture Microbiology Routine Missed menses Ordered: 10/16/2024[facility] Healthcare Comment on above:Ordered: 10/16/2024BC W Auto Differential panel - BloodCBC and differential Lab Routine Missed menses , unspecified gestational age Ordered: 10/16/2024[facility] HealthcareComment on above:Ordered: 10/16/2024HLAMYDIA TRACHOMATIS (GENITO/STI)CHLAMYDIA TRACHOMATIS (GENITO/STI) Lab Routine Screen for STD (sexually transmitted disease) Ordered: 12/04/2024[facility] HealthcareComment on above:Ordered: 12/04/2024ytology Cervical or vaginal smear or scraping studyPap Smear Pathology and Cytology Routine Well woman exam with routine gynecological exam Ordered: 12/04/2024[facility] HealthcareComment on above:Ordered: 12/04/2024Hemoglobin A1c/Hemoglobin.total in BloodHemoglobin A1c Lab Routine Missed menses , unspecified gestational age Ordered: 10/16/2024[facility] HealthcareComment on above:Ordered: 10/16/2024Hepatitis B virus surface Ag [Presence] in Serum or Plasma by ImmunoassayHepatitis B surface antigen Lab Routine Missed menses , unspecified gestational age Ordered: 10/16/2024 [facility] HealthcareComment on above:Ordered: 10/16/2024Hepatitis C virus Ab [Presence] in Serum or Plasma by ImmunoassayHepatitis C antibody Lab Routine Missed menses , unspecified gestational age Ordered: 10/16/2024[facility] HealthcareComment on above:Ordered: 10/16/2024HIV-1/HIV-2 antigen/antibody combination immunoassayHIV-1 and HIV-2 antibodies Lab Routine Missed menses , unspecified gestational age Ordered: 10/16/2024[facility] HealthcareComment on above:Ordered: 10/16/2024Human papilloma virus DNA [Presence] in Unspecified specimen by Probe with amplificationHPV DNA probe, amplified Microbiology Routine Well woman exam with routine gynecological exam Ordered: 12/04/2024[facility] HealthcareComment on above:Ordered: 12/04/2024Neisseria gonorrhoeae DNA [Presence] in Unspecified specimen by CARLITOS with probe detectionNeisseria gonorrhea DNA probe, direct Lab Routine Screen for STD (sexually transmitted disease) Ordered: 12/04/2024[facility] HealthcareComment on above:Ordered: 12/04/2024 Reagin Ab [Presence] in Serum by RPRRPR Lab Routine Missed menses , unspecified gestational age Ordered: 10/16/2024[facility] HealthcareComment on above: Ordered: 10/16/2024Rubella antibody, IgGRubella antibody, IgG Lab Routine Missed menses , unspecified gestational age Ordered: 10/16/2024[facility] HealthcareComment on above:Ordered: 10/16/2024SURESWAB(R) ADVANCED VAGINITIS PLUS, TMASURESWAB(R) ADVANCED VAGINITIS PLUS, TMA Pathology and Cytology Routine Screen for STD (sexually transmitted disease) Ordered: 12/04/2024[facility] Healthcare Work Phone: comment on above:Ordered: 12/04/2024 Immunizations Immunization DateImmunizationNotesCare KdpwuvbhWhourzkm37-81-2372cmmsrwcqc virus vaccine, unspecified formulationOma Davis RN Work Phone: [facility] Payers DatePayer CategoryPayerPolicy ID2025MedicaidANTHEM BCBS MEDICAID [place] [id number] [id number] 87-30-9075Gawj-srq71-09-3497Umezgda Care Other (unspecified)[facility] [id number] Health Insurance [id number] Health [id number] 2.1.404694.3.579.2.593 [id number] 2.1.922844.3.57[id number] 2..1.480707.3.57[id number] 2.1.451721.3.579.2.17250-82-7505Tovrsks2406502 2.16.840.1.564411.3.579.[id number] 2.840.1.711041.3.579.2.12459-64-8306Yyhmbzc8393824 2.16840.1.057632.3.579.2.99808-95-4319Nplenrc1606465 2.840.1.258888.3.579.2.82410-40-1068Tvkwckw6890365 2.840.1.668892.3.579.2.85593-97-3814Zhjeluk5568206 2.0.1.587839.3.579.2.74189-79-3556Cxgxgqc1238907 2.840.1.393042.3.579.2.38147-46-2538Ahkrviz0977102 2.840.1.538279.3.579.2.25638-80-1048Auwanya6212702 2.0.1.706672.3.579.2.10725-76-9794Tpppxxv5514386 2.840.1.868832.3.579.2.37951-36-3642Djohklr0472468 2.0.1.895773.3.579.2.94941-72-4797Uttiwte4662553 2.840.1.142462.3.579.2.54844-46-9064Ubkgwxk3072447 2.840.1.966927.3.579.2.14476-68-1091Wgdxmjn7639632 2.840.1.441386.3.579.2.50670-65-8520Isjvnse6124966 2.840.1.435354.3.579.2.88142-76-1955Fjfujne6684401 2.16.840.1.560569.3.579.2.75796-43-5979Ckmcwan17389204 2.16.840.1.429185.3.579.2.856867-04-5073Xcwfbsl76289534 2.16.840.1.832895.3.579.2.149115-60-5536Fjzotbx01353726 2.840.1.230429.3.579.2.320207-55-3420Ippskdz429701926 2.840.1.495179.3.579.2.827628-05-0173Mqjqlnj70460236 2.840.1.087188.3.579.2.154658-92-1126Shdzkrv15027940 2.0.1.174692.3.579.2.419071-00-9105Ygontzs41516553 2.840.1.640158.3.579.2.284427-36-4456Whighon01902247 2.0.1.703328.3.579.2.211616-74-6883Wutdsrv98338482 2.840.1.614217.3.579.2.267438-90-4924Pzzfzze98115926 2.0.1.022856.3.579.2.785790-78-1400Jalanoi39624866 2.840.1.103331.3.579.2.385981-14-8787Uflcwnr75077228 2.840.1.864787.3.579.2.670515-33-7493Fxzkbpc59246250 2.840.1.384819.3.579.2.727222-93-8252Cuqrsam59206205 2.840.1.821106.3.579.2.248945-52-5676Trsprut52511300 2..840.1.141490.3.579.2.943744-71-0408Nihpkna2698840 2.16.840.1.983971.3.579.2.012658-52-6178Ijdncab3436739 2.16.840.1.846945.3.579.2.390196-28-3285Rdbyrid6095442 2..840.1.658287.3.579.2.187685-02-6232Qudocns4043322717799-67-8215Fuyvlix [id number] 2..840.1.710376.3.579.2.531 Social History DateTypeDetailFacilityStart: 08-05-2020 End: 32-81-3745Aah Assigned At BirthProLicking Memorial Hospital SystemTobacco smoking status NHISTobacco smoking consumption unknownNOMS HealthcareStart: 08-12-2024 PregnancyNOMS HealthcareStart: 56-26-7204Zox assigned at birthFemaleNOND HealthcareStart: 52-32-0286Vovqri identityIdentifies as female gender (finding) [facility] HealthcareStart: 66-26-0136Vehwsh orientationHeterosexual (finding)[facility] HealthcareStart: 65-77-2661Yqndifq smoking status NHISNever smoked tobacco [facility]Start: 47-47-1187Zbcpxnf use and exposureSmokeless tobacco non-userMercy Health SystemStart: 17-18-6773Qqylwcfng beverage intakeEx-drinker (finding)[facility] SystemStart: 08-05-2020 End: 90-30-7074Ypmsfnj of Social functionMercy Health SystemStart: 98-87-5414Mgq you worried or concerned that in the next two months you may not have stable housing that you own, rent or stay in as a part of a household?No [facility] SystemStart: 79-84-8963Ock assigned at birthNot on file [facility] SystemStart: 43-38-8654PzgOygptb (finding)[facility] Medical Equipment Procedure CodeEquipment CodeEquipment Original TextEquipment IdentifierDates1 strip by In Vitro route Daily Use in the morning prior to breakfast, 1 hour after each meal for atotal of 4times daily.[id number]: 11-13-2024 End: each by In Vitro route Daily Use to check FSBS four times daily [id number]: 11-13-2024 End: 12-13-2024 Clinical Notes 07-09-2021 to 04-21-2025 Note Date & YoekWzdtKhskjgtr03-15-3666 History of Present illness Narrative* Jem Ambrosio, BATCH MIXER OPERATOR - 04/21/2025 2:20 PM EDT Reason for [...] meal for a total of 4times daily. Lghkxzuu-Zco-Tf-FA ( 1 + IRON PO) Take by mouth ALLERGIES No Known Allergies PROBLEMS Active Ambulatory Problems Diagnosis Date Noted 28 weeks gestation of ([facility]) 02/16/2025 Third trimester ([facility]) 02/16/2025 Resolved Ambulatory Problems Diagnosis Date [...] nursing note reviewed. Exam conducted with a assistant in nursing present. Vitals: Estimated body mass index is 34.46 kg/m as calculated from the following: Height as of 12/04/24: 5' 4 . Weight as of this encounter: 200 lb 12 oz. BP: 140/82 Patient's last menstrual period was 07/29/2024 (exact date). Assessment/Plan ICD-10-CM 1. Third trimester ([facility]) Z34.93 POCT urinalysis dipstick manually resulted 2. 38 weeks gestation of ([facility]) Z3A.38 Return OB: Patient presents [...] week for routine OB appointment. Documented by Jem Ambrosio NP on behalf of: SCOTTIE Yañez documented in this encounterSalem Memorial District HospitalMebghfvryw62-43-2360 History of Present illness Narrative* Sarita Wan [...] to check FSBS. Blood Glucose Monitoring Suppl ([employer] [place] Glucometer) w/Device kit 1 kit, Does not apply, Daily, Use four times daily to check FSBS. In the morning prior to breakfast & 1 hour after each meal for a total of 4times daily. Ounnoick-Qlw-An-FA ( 1 + IRON PO) Take by mouth ProFe 391.3 (180 Fe) MG capsule 1 capsule, Daily ALLERGIES No Known Allergies PROBLEMS Active Ambulatory Problems Diagnosis Date Noted 28 weeks gestation of ([facility]) 02/16/2025 Third trimester ([facility]) 02/16/2025 Resolved Ambulatory Problems Diagnosis Date [...] nursing note reviewed. Exam conducted with a assistant in nursing present. Vitals: Estimated body mass index is 34.47 kg/m as calculated from the following: Height as of 12/04/24: 5' 4 . Weight as of this encounter: 200 lb 12.8 oz. BP: 130/78 Patient's last menstrual period was 07/29/2024 (exact date). Assessment/Plan ICD-10-CM 1. Third trimester ([facility]) Z34.93 2. 37 weeks gestation of ([facility]) Z3A.37 POCT urinalysis dipstick manually resulted Return [...] of: Scooby Alvarado DO documented in this encounterSalem Memorial District HospitalTwynyywjbb25-14-4476 History of Present illness Narrative* SCOTTIE Yañez [...] meal for a total of 4times daily. Unhzbarb-Jsl-Cv-FA ( 1 + IRON PO) Take by mouth ProFe 391.3 (180 Fe) MG capsule 1 capsule, Daily ALLERGIES Allergies[1] PROBLEMS Active Ambulatory Problems Diagnosis Date Noted 28 weeks gestation of ([facility]) 02/16/2025 Third trimester ([facility]) 02/16/2025 Resolved Ambulatory Problems Diagnosis Date [...] ASSESSMENT & PLAN ICD-10-CM 1. Third trimester ([facility]) Z34.93 POCT urinalysis dipstick manually resulted CULTURE, GROUP B STREP WITH SUSCEPTIBLITY CULTURE, GROUP B STREP WITH SUSCEPTIBLITY 2. 36 weeks gestation of ([facility]) Z3A.36 Patient is doing well but has [...] surgical history on file. documented in this encounterSalem Memorial District HospitalBjddctdokw59-06-0199 History of Present illness Narrative* Jem Ambrosio [...] meal for a total of 4times daily. Btnqhiwn-Xsg-Pi-FA ( 1 + IRON PO) Take by mouth ProFe 391.3 (180 Fe) MG capsule 1 capsule, Daily ALLERGIES Not on File PROBLEMS Active Ambulatory Problems Diagnosis Date Noted 28 weeks gestation of ([facility]) 02/16/2025 Third trimester ([facility]) 02/16/2025 Resolved Ambulatory Problems Diagnosis Date [...] nursing note reviewed. Exam conducted with a assistant in nursing present. Vitals: Estimated body mass index is 33.44 kg/m as calculated from the following: Height as of 12/04/24: 5' 4 . Weight as of 03/10/25: 194 lb 12.8 oz. BP: Patient's last menstrual period was 07/29/2024 (exact date). ASSESSMENT & PLAN ICD-10-CM 1. 34 weeks gestation of ([facility]) Z3A.34 2. Third trimester ([facility]) Z34.93 US biophysical profile w non stress test POCT urinalysis dipstick manually resulted 3. Gestational diabetes mellitus (GDM) in third trimester, gestational diabetes method of control unspecified ([facility]) O24.419 Return OB: Patient presents today [...] continues to send her glucose logs to [facility] and we will begin NST/BPP this week. Orders Placed This Encounter Procedures US biophysical profile w non stress test POCT urinalysis dipstick manually resulted Follow Up: Patient is to return to office in 2 week for routine OB appointment. Documented by Yane Grant MA on behalf of: Jem Ambrosio NP documented in this encounterSalem Memorial District [id number] Miscellaneous Notes* Telephone Encounter - BEL Navarro - 03/20/2025 12:55 PM EDT Called patient and had to leave a voicemail. We haven't received any blood sugar logs for 4 weeks. Asked her to please send them to us or to call with questions. Left RD phone number. documented in [facility] encounterPrem[facility] [employer]ev[employer] [id number] Telephone encounter Note* Telephone Encounter - BEL Navarro - 03/20/2025 12:55 PM EDT Called patient and had to leave a voicemail. We haven't received any blood sugar logs for 4 weeks. Asked her to please send them to us or to call with questions. Left RD phone number. [facility] CenterMedia Li²ght [id number] History of Present illness Narrative* SCOTTIE Yañez [...] to check FSBS. Blood Glucose Monitoring Suppl ([employer] Glucometer) w/Device kit 1 kit, Does not apply, Daily, Use four times daily to check FSBS. In the morning prior to breakfast & 1 hour after each meal for a total of 4times daily. Rtwrpwmw-Znx-Le-FA ( 1 + IRON PO) Take by mouth ProFe 391.3 (180 Fe) MG capsule 1 capsule, Daily ALLERGIES No Known Allergies PROBLEMS Active Ambulatory Problems Diagnosis Date Noted 28 weeks gestation of ([facility]) 02/16/2025 Third trimester ([facility]) 02/16/2025 Resolved Ambulatory Problems Diagnosis Date [...] nursing note reviewed. Exam conducted with a assistant in nursing present. Vitals: Estimated body mass index is 33.44 kg/m as calculated from the following: Height as of 12/04/24: 5' 4 . Weight as of this encounter: 194 lb 12.8 oz. BP: 136/74 Patient's last menstrual period was 07/29/2024 (exact date). ASSESSMENT & PLAN ICD-10-CM 1. 32 weeks gestation of ([facility]) Z3A.32 POCT urinalysis dipstick manually resulted 2. Third trimester ([facility]) Z34.93 POCT urinalysis dipstick manually resulted Return [...] behalf of: SCOTTIE Yañez documented in this encounterSalem Memorial District HospitalZkwbrsmnyw81-00-0025 History of Present illness Narrative* SCOTTIE Yañez [...] meal for a total of 4times daily. Gqfrsdiq-Xbo-Jc-FA ( 1 + IRON PO) Take by mouth ProFe 391.3 (180 Fe) MG capsule 1 capsule, Daily ALLERGIES No Known Allergies PROBLEMS Active Ambulatory Problems Diagnosis Date Noted 28 weeks gestation of ([facility]) 02/16/2025 Third trimester ([facility]) 02/16/2025 Resolved Ambulatory Problems Diagnosis Date [...] nursing note reviewed. Exam conducted with a assistant in nursing present. Vitals: Estimated body mass index is 33.3 kg/m as calculated from the following: Height as of 12/04/24: 5' 4 . Weight as of this encounter: 194 lb. BP: 128/72 Patient's last menstrual period was 07/29/2024 (exact date). ASSESSMENT & PLAN ICD-10-CM 1. Size of fetus inconsistent with dates in second trimester ([facility]) O26.842 US OB follow up transabdominal approach 2. 28 weeks gestation of ([facility]) Z3A.28 CANCELED: CBC and differential 3. Third trimester ([facility]) Z34.93 Return OB: Patient presents today [...] behalf of: SCOTTIE Yañez documented in this encounterSalem Memorial District HospitalKttdgwtjqm02-42-6250 History of Present illness Narrative* Jem Ambrosio [...] to check FSBS. Blood Glucose Monitoring Suppl ([employer] Glucometer) w/Device kit 1 kit, Does not apply, Daily, Use four times daily to check FSBS. In the morning prior to breakfast & 1 hour after each meal for a total of 4times daily. Jjzerhbu-Fvh-Xb-FA ( 1 + IRON PO) Take by [...] nursing note reviewed. Exam conducted with a assistant in nursing present. Vitals: Estimated body mass index is 33 kg/m as calculated from the following: Height as of 12/04/24: 5' 4 . Weight as of this encounter: 192 lb 4 oz. BP: 136/78 Patient's last menstrual period was 07/29/2024 (exact date). ASSESSMENT & PLAN ICD-10-CM 1. Second trimester ([facility]) Z34.92 POCT urinalysis dipstick manually resulted 2. 26 weeks gestation of ([facility]) Z3A.26 3. Diabetes mellitus screening Z13.1 CBC [...] glucose log and completed Diabetic education through [facility]. Documented by Jem Ambrosio NP on behalf of: Scooby Alvarado DO documented in this encounterSalem Memorial District HospitalMiifoikzin08-25-0649 History of Present illness Narrative* SCOTTIE Yañez [...] to check FSBS. Blood Glucose Monitoring Suppl ([employer] Glucometer) w/Device kit 1 kit, Does not apply, Daily, Use four times daily to check FSBS. In the morning prior to breakfast & 1 hour after each meal for a total of 4times daily. Isfycaub-Phd-Iv-FA ( 1 + IRON PO) Take by [...] ASSESSMENT & PLAN ICD-10-CM 1. Second trimester ([facility]) Z34.92 POCT urinalysis dipstick manually resulted 2. 22 weeks gestation of ([facility]) Z3A.22 Return OB: Patient presents today for [...] behalf of: SCOTTIE Yañez documented in this encounterSalem Memorial District HospitalIycprfsrda54-83-7824 Miscellaneous Notes* Telephone Encounter - BEL Anderson [...] have questions you can call me at [phone]. Please continue to send in blood sugars weekly. I will also send a MediCard message. documented in this encounterProMedica [facility]06-[facility] Telephone encounter Note* Telephone Encounter - [...] have questions you can call me at [phone]. Please continue to send in blood sugars weekly. I will also send a Med[employer] message. [employer] Work Phone: 1(152) 530-666306-12-2025 History of Present illness Narrative* Yane Grant [...] Use to check FSBS four times daily Wlasudpf-Cto-Tw-FA ( 1 + IRON PO) Take by [...] nursing note reviewed. Exam conducted with a assistant in nursing present. Vitals: There is no height or weight on file to calculate BMI. BP: 118/72 Patient's last menstrual period was 07/29/2024 (exact date). ASSESSMENT & PLAN ICD-10-CM 1. Second trimester ([facility]) Z34.92 POCT urinalysis dipstick manually resulted 2. 18 weeks gestation of ([facility]) Z3A.18 3. Well woman exam with routine gynecological exam Z01.419 Pap Smear HPV DNA probe, amplified 4. Screening, , for anatomic survey ([facility]) Z36.89 US OB 14+ weeks anatomy scan 5. Screen for STD (sexually transmitted disease) Z11.3 SURESWAB(R) ADVANCED VAGINITIS PLUS, TMA CHLAMYDIA TRACHOMATIS (GENITO/STI) Neisseria gonorrhea DNA probe, direct 6. Need for maternal serum alpha-protein (MSAFP) screening ([facility]) Z36.1 Alpha fetoprotein, maternal Alpha fetoprotein, maternal Return OB/Annual Exam: Patient presents today for an annual exam/routine obstetrics appointment. Patient is currently 18w2d . Patient is doing well and states she has no complaints. Pap/cultures was obtained without difficulty and [facility]. Orders Placed This [...] of: Scooby Alvarado DO documented in this encounterSalem Memorial District HospitalBzabnecxyd95-23-8184 Group counseling note* Group Note - Chinyere [...] Face to face time was 85 minutes. [employer] Work Phone: 1(834) 337-402506-02-2025 Miscellaneous Notes* Group Note - Chinyere Martinez [...] time was 85 minutes. documented in this encounterBlanchard Valley Health System Bluff[facility] HospitalAmerican [facility] Solutions [facility] Special[facility] HospitalWvocdo12-17-0259 History of Present illness Narrative* Wendy Ulloa LPN - 11/13/2024 10:40 AM EDT Reason for [...] Use to check FSBS four times daily Tattvbsy-Ojx-Qu-FA ( 1 + IRON PO) Take by [...] nursing note reviewed. Exam conducted with a assistant in nursing present. Vitals: There is no height or [...] or undercooked meat, and stay away from [facility]. Patient has been consulted regarding any further do's and don'tsof . Patient voiced understanding and all questions and concerns were answered. Orders Placed This Encounter Procedures POCT urinalysis dipstick manually resulted Discussed with patient her recent A1c results and patient aware that referral will be sent to [facility] for Diabetic Education and monitoring. PVU and supplies sent to pharmacy for patient to pickup and take with her to her referral appointment. Follow Up: Patient is to return in 4 weeks for routine OB appointment. Documented by Wendy Ulloa LPN on behalf of: Scooby Alvarado DO documented in this encounterSalem Memorial District HospitalAmhiywdlxv55-55-5593 History of Present illness Narrative* Faye Tyler [...] or undercooked meat, and stay away from [facility]. Patient has also been advised to not [...] by: Faye Tyler MA documented in this encounterSalem Memorial District HospitalCjcrpsroql95-61-6339 Evaluation note* Encounter Date Diagnosis Assessment Notes [...] Patient care instructions given in writting by [facility] Care At Home document [employer] Other Evaluation note* Diagnosis Missed menses Missed menses , unspecified gestational age Encounter for supervision of normal first in first trimester documented in this encounter [facility]Evaluation [facility]* Diagnosis 15 weeks gestation of Second trimester state, incidental Diet controlled gestational diabetes mellitus (GDM), antepartum Gestational diabetes mellitus (GDM), antepartum, gestational diabetes method of control unspecified Elevated glucose tolerance test Impaired glucose tolerance test documented in this encounter [facility] HealthcareEvaluation note* Diagnosis Gestational diabetes mellitus (GDM) in second trimester, gestational diabetes method of control unspecified [facility] Diagnosis Second trimester ([facility]) state, incidental 18 weeks gestation of ([facility]) Well woman exam with routine gynecological exam Routine gynecological examination Screening, , for anatomic survey ([facility]) Encounter for anatomic survey Screen for STD (sexually transmitted disease) Screening examination for venereal disease Need for maternal serum alpha-protein (MSAFP) screening ([facility]) documented [facility] [...] note* Diagnosis Third trimester ([facility]) state, incidental 38 weeks gestation of ([facility]) documented in this encounter [facility] HealthcareInstructionsNot on filedocumented in this encounterProMediClinton Memorial Hospital SystemInstructionsNot on filedocumented in this encounterProLicking Memorial Hospital System Summary Purpose Family History No Family History Records FoundNo Family History Records FoundNo Family History Records FoundNo Family History Records FoundNo Family History Records Found Advance Directives Date ActivatedDate InactivatedComments12/20/2023 11:13 PM12/21/2023 1:46 PM Additional Source Comments INFORMATION SOURCE (unrecogn ized section and content) DATE CREATED AUTHOR 11/17/2021 [facility] DATE CREATED AUTHOR AUTHOR'S ORGANIZ ATION 03/24/2022 [facility] DATE CREATED AUTHOR AUTHOR'S ORGANIZ ATION 12/29/2023 [facility] DATE CREATED AUTHOR AUTHOR'S ORGANIZ ATION 11/25/2024 [facility] DATE CREATED AUTHOR AUTHOR'S ORGANIZ ATION 04/23/2025 [facility] EPIC REASON FOR VISIT (unrecogniz ed section and content) ReasonCommentsAmenorrheaReasonCommentsRoutine VisitReasonComments Gestational DiabetesSpecialtyDiagnoses / ProceduresReferred By ContactReferred To ContactMaternal and Medicine Diagnoses Gestational diabetes mellitus (GDM) in second trimester, gestational diabetes method of control unspecified Scooby Alvarado, DO [address] [place] [address] Phone: tel: fax: Maternal- Medicine at [facility] [address] [place] [address] Phone: tel: fax: Referral IDStatusReasonStart DateExpiration DateVisits RequestedVisits [id number] Review Specialty Services Required / Care Teams (unrecognized sec tion and content) Team MemberRelationshipSpecialtyStart DateEnd Date No Pcp, [place] [address] PCP - GeneralFamily Medicine12/19/23Team MemberRelationshipSpecialtyStart DateEnd Date No Pcp, [place] [address] PCP - GeneralFamily Medicine12/19/23Team MemberRelationshipSpecialtyStart DateEnd Date No Pcp, [place] [address] PCP - GeneralFamily Medicine12/19/23Team MemberRelationshipSpecialtyStart DateEnd Date Jihan Epps NP [address] [place] [address] PCP - [facility]My[facility]ujo [facility]/ FOR RECORDS PERTAINING TO PATIENTS WHO ARE [...] BE BASED ON THE PRIMARY CLINICAL RECORDS. [facility], [facility]. provides no warranty or guarantee of the accuracy or completeness of information in this document.
[2025-04-24 10:10] VITALS: BP 123/71; PULSE 72
== END 2025-04-24 11:03 | disposition home or self-care (01) ==
LOC: FBCO 10:03 → FBC 10:04
PROVIDERS: Visit Provider Obstetrics & Gynecology
DX: O99.283 Endocrine, nutritional and metabolic diseases complicating pregnancy, third trimester (principal); Z3A.38 38 weeks gestation of pregnancy
CPT/HCPCS: 59025

== ENCOUNTER 2025-04-28 22:21 | Inpatient (IN) | payer MEDICAID, SELFPAY ==
--- OUTSIDE RECORDS SUMMARY | 2025-04-14 10:10 | XMS_ITS | Encounter Summary ---
Author Organization [facility] Address [address] [place] [address] Care Team Providers Care Doctor'S Assistant Name Role Phone Unavailable Primary Care Provider Unavailabl e Reason for Visit * ReasonCommentsRoutine Visit Encounter Details DateTypeDepartmentCare Team (Latest Contact Info)Nkvgyzlpbor72/21/2025 11:10 AM EDTRoutine [facility] [address] [place] [phone] Scooby Alvarado DO [address] [place] [address] Third trimester ([facility]); 37 weeks gestation of ([facility]) Social History Tobacco UseTypesPacks/DayYears UsedDateSmoking Tobacco: Never Assessed Estimated Date of JnivktqkVnjhnxnkAfk42/11/2025Based on last menstrual period of 07/29/2024 (Exact Date)Sex and Gender InformationValueDate RecordedSex Assigned at HultgAsjcwa59/03/2024 9:38 AM ESTLegal SugShvnmz12/15/2023 6:47 PM EDTGender EoznyvmeLfgrvd95/03/2024 9:38 AM ESTSexual MglhcjojmovVgghffds46/03/2024 9:38 AM ESTdocumented as of this encounter Last Filed Vital Signs Vital SignReadingTime TakenCommentsBlood Denzcqil674/7810 11:06 AM EDT Pulse--Temperature--Respiratory Rate--Oxygen Saturation--Inhaled Oxygen Concentration--Muirle97.1 kg (200 lb 12.8 oz)04/14/2025 11:06 AM EDTHeight--Body Mass Index34.4706 10:26 AM EDTdocumented in this encounter Progress Notes * Sarita Wan, LEGAL BILLER - 04/14/2025 11:10 AM EDT Reason for Appointment: Patient ID: Paris Mosqueda is a 34 y.o. female who presents for Routine Visit Patient presents today for Return OB appointment. MEDICATIONS Current Outpatient Medications Medication Instructions Alcohol Swabs (Alcohol Prep Pad) 70 % pads 1 Pad, Topical, Daily, Use four times daily to check FSBS. Blood Glucose Monitoring Suppl (Rain Glucometer) w/Device kit 1 kit, Does not apply, Daily, Use four times daily to check FSBS. In the morning prior to breakfast & 1 hour after each meal for a total of 4times daily. Rlkucgal-Qbc-Wp-FA ( 1 + IRON PO) Take by mouth ProFe 391.3 (180 Fe) MG capsule 1 capsule, Daily ALLERGIES No Known Allergies PROBLEMS Active Ambulatory Problems Diagnosis Date Noted 28 weeks gestation of ([facility]) 02/16/2025 Third trimester ([facility]) 02/16/2025 Resolved Ambulatory Problems Diagnosis Date Noted [...] appearance. She is well-developed. Genitourinary: Vulva normal. Cardiovascular: Rate and Rhythm: Normal rate and [...] nursing note reviewed. Exam conducted with a extract mixer present. Vitals: Estimated body mass index is 34.47 kg/m?? as calculated from the following: Height as of 25: 5' 4 . Weight as of this encounter: 200 lb 12.8 oz. BP: 130/78 Patient's last menstrual period was 07/29/2024 (exact date). Assessment/Plan ICD-10-CM 1. Third trimester ([facility]) Z34.93 2. 37 weeks gestation of ([facility]) Z3A.37 POCT urinalysis dipstick manually resulted Return OB: Patient presents today for a routine obstetrics appointment. Patient is currently 37w0d . Patient states she is doing well but has complaints of being tired due to current . Patient has verbalizes frequent movement. labor precautions was discussed/given and patient was instructed to perform kick counts three times a day. Orders Placed This Encounter Procedures POCT urinalysis dipstick manually resulted Follow Up: Patient is to return to office in 1 week for routine OB appointment. Documented by Sarita Wan LPN on behalf of: Scooby Alvarado DO documented in this encounter Plan of Treatment DateTypeDepartmentCare Team (Latest Contact Info)Lrsiihzutif41/22/2025 9:50 AM ESTPostpartum Visit [facility] [address] [place] [phone] Scooby Alvarado DO [address] [place] [address] documented as of this encounter Procedures Procedure NamePriorityDate/TimeAssociated DiagnosisCommentsPOCT URINALYSIS HKXNISQPVpkosyw81/21/2025 11:12 AM EDT 37 weeks gestation of ([facility]) documented in this encounter Results * (ABNORMAL) POCT urinalysis dipstick manually resulted (04/14/2025 11:12 AM EDT)ComponentValueRef RangeTest MethodAnalysis TimePerformed AtPathologist SignatureColor, UAYellowClarity, UAClearGlucose, UANegativeNegative - 2000(110) ++++ mg/dLBilirubin, UA2+Negative - 4(70) +++ mg/dLKetones, UA PositiveNegative - 160(16) ++++ mg/dLSpec Grav, UA1.0251 - 1.03Blood, UA NegativeNegative - 50 Celestino/mcLpH, UA6.05 - 9Protein, UA1+Negative - 2000(20) ++++ mg/dLUrobilinogen, UA>=8.00.2 - 12 mg/dLLeukocytes, UA3+Negative - 500+++ Dodie/mcLNitrite, UANegativeNegative - PositiveSpecimen (Source)Anatomical Location / LateralityCollection Method / VolumeCollection TimeReceived Time Urine04/14/2025 11:12 AM EDT Narrative Authorizing ProviderResult TypeResult StatusScooby Alvarado DOPOINT OF CARE TEST ENTER/EDIT ORDERABLESFinal Result documented in this encounter Visit Diagnoses Diagnosis Third trimester ([facility]) state, incidental 37 weeks gestation of ([facility]) documented in this encounter
--- OUTSIDE RECORDS SUMMARY | 2025-04-21 13:20 | XMS_ITS | Encounter Summary ---
Author Organization [facility] Address [address] [place] [address] Care Team Providers Care Sql Dba Name Role Phone Unavailable Primary Care Provider Unavailabl e Reason for Visit * ReasonCommentsRoutine Visit Encounter Details DateTypeDepartmentCare Team (Latest Contact Info)Hsnvltylzkd73/28/2025 2:20 PM EDTRoutine [facility] [address] [place] [address] Deborah Kwan PA [address] [facility] [address] [place], [facility]11 Third trimester ([facility]); 38 weeks gestation of ([facility]) Social History Tobacco UseTypesPacks/DayYears UsedDateSmoking Tobacco: Never Assessed Estimated Date of PyqkjjzwIrrfumpiZle37/11/2025Based on last menstrual period of 07/29/2024 (Exact Date)Sex and Gender InformationValueDate RecordedSex Assigned at LuarzYrrjwb02/03/2024 9:38 AM ESTLegal EwuTpeihk76/15/2023 6:47 PM EDTGender MubmdcvqJgkfme51/03/2024 9:38 AM ESTSexual OdozumzwqzrWdwqlnve45/03/2024 9:38 AM ESTdocumented as of this encounter Last Filed Vital Signs Vital SignReadingTime TakenCommentsBlood Nreeaeuo871/8210 2:09 PM EDT Pulse--Temperature--Respiratory Rate--Oxygen Saturation--Inhaled Oxygen Concentration--Esiirz60.1 kg (200 lb 12 oz)04/21/2025 2:09 PM EDTHeight--Body Mass Index34.4606/05/2025 10:26 AM EDTdocumented in this encounter Progress Notes * Krys Ambrosio NP - 04/21/2025 2:20 PM EDT Reason for Appointment: Patient ID: Paris Mosqueda is a 34 y.o. female who presents for Routine Visit Patient presents today for Return OB appointment. MEDICATIONS Current Outpatient Medications Medication Instructions Alcohol Swabs (Alcohol Prep Pad) 70 % pads 1 Pad, Topical, Daily, Use four times daily to check FSBS. Blood Glucose Monitoring Suppl ([employer] Glucometer) w/Device kit 1 kit, Does not apply, Daily, Use four times daily to check FSBS. In the morning prior to breakfast & 1 hour after each meal for a total of 4times daily. Undvhsve-Jgn-Bp-FA ( 1 + IRON PO) Take by mouth ALLERGIES No Known Allergies PROBLEMS Active Ambulatory Problems Diagnosis Date Noted 28 weeks gestation of ([facility]) 02/16/2025 Third trimester ([facility]) 02/16/2025 Resolved Ambulatory Problems Diagnosis Date Noted [...] nursing note reviewed. Exam conducted with a expenditure requisition clerk present. Vitals: Estimated body mass index is 34.46 kg/m?? as calculated from the following: Height as of 25: 5' 4 . Weight as of this encounter: 200 lb 12 oz. BP: 140/82 Patient's last menstrual period was 07/29/2024 (exact date). Assessment/Plan ICD-10-CM 1. Third trimester ([facility]) Z34.93 POCT urinalysis dipstick manually resulted 2. 38 weeks gestation of ([facility]) Z3A.38 Return OB: Patient presents today for a routine obstetrics appointment. Patient is currently 38w0d . Patient states she is doing well [...] week for routine OB appointment. Documented by Krys Ambrosio NP on behalf of: SCOTTIE Yañez documented in this encounter Plan of Treatment DateTypeDepartmentCare Team (Latest Contact Info)Kqzrpxlkgqq39/22/2025 9:50 AM ESTPostpartum Visit [facility] [address] [address] Scooby Alvarado DO [address] [place], [place] [address] documented as of this encounter Procedures Procedure NamePriorityDate/TimeAssociated DiagnosisCommentsPOCT URINALYSIS SRXNDCIXTdcmiyp00/28/2025 2:14 PM EDT Third trimester ([facility]) documented in this encounter Results * POCT urinalysis dipstick manually resulted (04/21/2025 2:14 PM EDT)Component ValueRef RangeTest MethodAnalysis TimePerformed AtPathologist SignatureColor, UAYellowClarity, UAClearGlucose, UANegativeNegative - 2000(110) ++++ mg/dL Bilirubin, UANegativeNegative - 4(70) +++ mg/dLKetones, UANegativeNegative - 160(16) ++++ mg/dLSpec Grav, UA1.0101 - 1.03Blood, UANegativeNegative - 50 Celestino/mcLpH, UA6.05 - 9Protein, UANegativeNegative - 2000(20) ++++ mg/dL Urobilinogen, UA0.20.2 - 12 mg/dLLeukocytes, UANegativeNegative - 500+++ Dodie/mcLNitrite, UANegativeNegative - PositiveSpecimen (Source)Anatomical Location / LateralityCollection Method / VolumeCollection TimeReceived Time Urine04/21/2025 2:14 PM EDT Narrative Authorizing ProviderResult TypeResult StatusDeborah JerezHahnemann University Hospital TEST ENTER/EDIT ORDERABLESFinal Result documented in this encounter Visit Diagnoses Diagnosis Third trimester ([facility]) state, incidental 38 weeks gestation of ([facility]) documented in this encounter
--- OUTSIDE RECORDS SUMMARY | 2025-04-28 22:26 | XMS_ITS | Encounter Summary ---
Author Organization [facility] Address [address] [place] [address] Care Team Providers Care Audio Video Tech Name Role Phone Unavailable Primary Care Provider Unavailabl e Encounter Details DateTypeDepartmentCare Team (Latest Contact Info)Dvktpktcutc42/28/2025amboo flowsheet NOMMyra MARES [address] [address] Deborah Kwan PA [address] [place], [place] [address] Social History Tobacco UseTypesPacks/DayYears UsedDateSmoking Tobacco: Never Assessed Estimated Date of ZitkqzlxXzpwlxygOod09/11/2025Based on last menstrual period of 07/29/2024 (Exact Date)Sex and Gender InformationValueDate RecordedSex Assigned at ZgkfwUzhxuh59/03/2024 9:38 AM ESTLegal XbpFqbgzk66/15/2023 6:47 PM EDTGender SdmsyplgCeqzco55/03/2024 9:38 AM ESTSexual TsjkmcykdylDpmimzct86/03/2024 9:38 AM ESTdocumented as of this encounter Plan of Treatment DateTypeDepartmentCare Team (Latest Contact Info)Ydydkcitrec18/22/2025 9:50 AM ESTPostpartum Visit NOMMyra MARES [address] [address] Scooby Alvarado DO [address], [facility] documented as of this encounter Visit Diagnoses Not on filedocumented in this encounter
--- OUTSIDE RECORDS SUMMARY | 2025-04-28 22:26 | XMS_ITS | Encounter Summary ---
Author Organization [facility] Address [address] [place] [address] Care Team Providers Care Car And Yard Supervisor Name Role Phone Unavailable Primary Care Provider Unavailabl e Encounter Details DateTypeDepartmentCare Team (Latest Contact Info)Xdxdcvmthly52/23/2025Patient Outreach [facility] [address] [place] [address] Deborah Jones LPN [address] [place] [address] Social History Tobacco UseTypesPacks/DayYears UsedDateSmoking Tobacco: Never Assessed Estimated Date of ZdcpyptqSwsjxdzzXjr48/11/2025Based on last menstrual period of 07/29/2024 (Exact Date)Sex and Gender InformationValueDate RecordedSex Assigned at UlstcGnyouh80/03/2024 9:38 AM ESTLegal OxiPjepic17/15/2023 6:47 PM EDTGender AaxpgumqFaoyrk79/03/2024 9:38 AM ESTSexual HkskilppapzZunpwdux15/03/2024 9:38 AM ESTdocumented as of this encounter Progress Notes * Deborah Jones LPN - 04/16/2025 10:32 AM EDT Initial Call. Pt declined outreach. documented in this encounter Plan of Treatment DateTypeDepartmentCare Team (Latest Contact Info)Pvzgvmzclnr56/ 9:50 AM ESTPostpartum Visit [facility] Sanam MARES [address] [place] [address] Scooby Alvarado DO [address] [place] [address] documented as of this encounter Visit Diagnoses Not on filedocumented in this encounter
--- OUTSIDE RECORDS SUMMARY | 2025-04-28 22:26 | XMS_ITS ---
Author Organization [facility] Address [address] [place] [address] Care Team Providers Care Chemical Test Engineer Name Role Phone Unavailable Primary Care Provider Unavailabl e Comprehensive Maternal Care ([facility]) Status:Declined (Declined) Start date:04/09/2025 Enrollment date:04/16/2025 Enrollment reason:Identified by Health Plan End date:04/16/2025 Decline reason:Patient declined Continued Care and Services Coordination
--- OUTSIDE RECORDS SUMMARY | 2025-04-28 22:26 | XMS_ITS | Encounter Summary ---
Author Organization [facility] Address [address] [place] [address] Care Team Providers Care Vocational Auto Body Instructor Name Role Phone Unavailable Primary Care Provider Unavailabl e Encounter Details DateTypeDepartmentCare Team (Latest Contact Info)Uxesugvbmhl44/28/2025Travel Social History Tobacco UseTypesPacks/DayYears UsedDateSmoking Tobacco: Never Assessed Estimated Date of BaxyxfeeZwtniqwsEtu50/11/2025Based on last menstrual period of 07/29/2024 (Exact Date)Sex and Gender InformationValueDate RecordedSex Assigned at AyagfCruxim70/03/2024 9:38 AM ESTLegal CyaMhnsbe36/15/2023 6:47 PM EDTGender NgpmbtjzAecjjj87/03/2024 9:38 AM ESTSexual ZygnjpllznuErvkkgwt24/03/2024 9:38 AM ESTdocumented as of this encounter Plan of Treatment DateTypeDepartmentCare Team (Latest Contact Info)Eqqohrlkcpo66/22/2025 9:50 AM ESTPostpartum Visit NOMMarlene [place] OBCED [address] [place] [address] Scooby Alvarado DO [address] [place] [address] documented as of this encounter Visit Diagnoses Not on filedocumented in this encounter
--- OUTSIDE RECORDS SUMMARY | 2025-04-28 22:26 | XMS_ITS | Encounter Summary ---
Author Organization [facility] Address [address] [place] [address] Care Team Providers Care Watch Engineer Name Role Phone Unavailable Primary Care Provider Unavailabl e Encounter Details DateTypeDepartmentCare Team (Latest Contact Info)Njiwxxafdlh71/24/2025bstract [facility] [address] [place] [address] Deborah Jones, CALL OR CONTACT CENTRE MANAGER [address] [place] [address] Social History Tobacco UseTypesPacks/DayYears UsedDateSmoking Tobacco: Never Assessed Estimated Date of ObyscqvaXwmkbnbbBeg34/11/2025Based on last menstrual period of 07/29/2024 (Exact Date)Sex and Gender InformationValueDate RecordedSex Assigned at IhtuhJakzgy10/03/2024 9:38 AM ESTLegal TqpFcpitr97/15/2023 6:47 PM EDTGender YhxzhcstXhevii85/03/2024 9:38 AM ESTSexual PjxcxwsascqOuivmbdm95/03/2024 9:38 AM ESTdocumented as of this encounter Plan of Treatment DateTypeDepartmentCare Team (Latest Contact Info)Tisswpoqvwr18/22/2025 9:50 AM ESTPostpartum Visit [facility] [address] [address] Scooby Alvarado DO [address] [place], [place] [id number] documented as of this encounter Visit Diagnoses Not on filedocumented in this encounter
--- OUTSIDE RECORDS SUMMARY | 2025-04-28 22:26 | XMS_ITS | CCD ---
Author Organization [facility] CliniSywa Care Team Providers Care Brush Clearer Surveying Name Role Phone RENAY OTOOLE Attending Unavailable [...] Glucometer) w/Device kit (20 sources)Start: 11-13-2024 End: 43-80-0431Kixrc Glucose Monitoring Suppl (D-Care Glucometer) w/Device kit Indications: Gestational diabetes mellitus (GDM), antepartum, gestational diabetes method of control unspecified (HHS-HCC) , Elevated glucose tolerance test 1 kit Daily Use four times daily to check FSBS. In the morning prior to breakfast & 1 hour after each meal for a total of 4times daily. 1 kit 11/13/2024 11/13/2025 ActiveStart: 11-13-2024 End: 25-45-0153Lttum Glucose Monitoring Suppl (D-Care Glucometer) w/Device kit Indications: Gestational diabetes mellitus (GDM), antepartum, gestational diabetes method of control unspecified , Elevated glucose tolerance test 1 kit Daily Use four times daily to check FSBS. In the morning prior to breakfast & 1 hour after each meal for a total of 4times daily. 1 kit 11/13/2024 11/13/2025 ActiveEthinyl Estradiol / norgestimate (3 sources)Progestin, EstrogenStart: 33-47-6283oqkt 1 tablet by mouth once daily norgestimate-ethinyl estradioL (ORTHO-CYCLEN) 0.25-35 mg-mcg per tablet Indications: Encounter for contraceptive management, unspecified type Take 1 tablet by mouth daily. 56 tablet 1 05/11/2020 Activeisopropyl alcohol 0.7 ml/ml medicated pad (20 sources)Start: 05-87-1817Itvrdvo Swabs (Alcohol Prep Pad) 70 % pads Indications: Gestational diabetes mellitus (GDM), antepartum, gestational diabetes method of control unspecified (HHS-HCC) , Elevated glucose tolerance testApply 1 Pad topically Daily Use four times daily to check FSBS. 150 each 3 11/13/2024 ActivePrenatal Vtovklpl-Bwh-Zt-FA ( 1 + IRON PO) (20 sources) Vbktbgje-Txb-Uz-FA ( 1 + IRON PO) Take by mouth Active Completed/Discontinued Medications MedicationDrug Class(es)DatesSig (Normalized)Sig (Original)polysaccharide iron complex 391 mg oral capsule (20 sources)Start: 02-04-2024 End: 48-05-3006bcqb 1 capsule by mouth once dailyProFe 391.3 (180 Fe) MG capsule Take 1 capsule by mouth Daily 02/04/2024 04/21/2025 Discontinued Problems Active Problems Problem ClassificationProblemDateDocumented DateEpisodic/ChronicAbdominal pain (1 source)Abdominal painOnset: 18-21-4513SxifcszsAmfhcr of cervix (1 source)Low grade squamous intraepithelial lesion on cytologic smear of cervix (LGSIL); Translations: [LGSIL ON CYTOLOGIC SMEAR OF CERVIX]Onset: 11-11-2021 EpisodicDiabetes mellitus without complication (6 sources)Other abnormal glucose; Translations: [Abnormal glucose tolerance test]Onset: 08-91-2921DwwkyvlwZwjfdvmk or abnormal glucose tolerance complicating ; childbirth; or the puerperium (8 sources)Gestational diabetes mellitus, class A>1<; Translations: [Gestational diabetes mellitus in , diet controlled]Onset: EpisodicHemorrhage during ; abruptio placenta; placenta previa (1 source)Antepartum hemorrhage, unspecified, unspecified trimester; Translations: [Antepartum hemorrhage, unspecified, unspecified trimester]Onset: 42-88-5499RhtwwoctBikdgmaqhyifg and screening for infectious disease (3 sources)Contact with and (suspected) exposure to other viral communicable diseases; Translations: [Patient encounter status]Onset: 07-09-2021 Resolved: 35-68-4893RysxmayyUwmfkshox disorders (6 sources)Secondary amenorrhea; Translations: [Missed period]Onset: 01-28-2021 ChronicOther complications of ; puerperium affecting management of mother (3 sources)Obesity complicating childbirth; Translations: [OBESITY COMPLICATING CHILDBIRTH]Onset: 74-20-6352MwhilzzVopog complications of (4 sources)Anemia complicating , unspecified trimester; Translations: [ANEMIA COMP UNS TRIMESTER]Onset: 54-93-0679VxydfhiTqreu complications of (2 sources) size does not accord with dates; Translations: [Uterine size- date discrepancy, second trimester]76-28-0266QnbmkrqyThnfy female genital disorders (1 source)Vaginal bleedingOnset: 77-60-9374ThimyzdDwkpb nutritional; endocrine; and metabolic disorders (1 source)Obesity, unspecified; Translations: [OBESITY UNSPECIFIED]Onset: 74-48-9582WifxxnlTgagd and delivery including normal (20 sources)Encounter for routine follow-up; Translations: [Single live ]Onset: 26-02-7968KsqobcrxYmgad screening for suspected conditions (not mental disorders or infectious disease) (14 sources)Encounter for screening for malignant neoplasm of cervix; Translations: [Encounter for screening, unspecified]Onset: 39-04-3988Lcdwidnh Residual codes; unclassified (1 source)High risk heterosexual behavior; Translations: [High risk heterosexual behavior]Onset: 41-63-0759IzmohlldSfbnnqfr codes; unclassified (2 sources)Gestation period, 15 weeks; Translations: [15 weeks gestation of ]77-22-5086ZfvrjmytEzcobdwx codes; unclassified (2 sources)Gestation period, 18 weeks; Translations: [18 weeks gestation of ]60-11-0012CsoqetufSsjswriq codes; unclassified (2 sources)Gestation period, 22 weeks; Translations: [22 weeks gestation of ]25-99-9722UyyvikqcLkjomsvh codes; unclassified (2 sources)Gestation period, 26 weeks; Translations: [26 weeks gestation of ]14-14-6104YwmsozodIxurubfa codes; unclassified (20 sources)Gestation period, 28 weeks; Translations: [28 weeks gestation of ]Onset: 808940-13-9584WkrbqjnfPrtjbgrw codes; unclassified (2 sources)Gestation period, 32 weeks; Translations: [32 weeks gestation of ]87-32-3418PclmrkxzVvldygsk codes; unclassified (2 sources)Gestation period, 34 weeks; Translations: [34 weeks gestation of ]92-96-4822SljgcremLrrnciot codes; unclassified (2 sources)Gestation period, 36 weeks; Translations: [36 weeks gestation of ]38-82-0211YtlujyerLwevftzh codes; unclassified (2 sources)Gestation period, 37 weeks; Translations: [37 weeks gestation of ]49-06-2210FamhgrudNreprjvi codes; unclassified (2 sources)Gestation period, 38 weeks; Translations: [38 weeks gestation of ]56-18-0505QzivljdhTowoahccblr; intervertebral disc disorders; other back problems (1 source)BackacheOnset: 07-19-8407HxjepzdmLtaooijlwzjn (1 source)CONTACT W/AND (SUSP) EXPOS COVID-19; Translations: [CONTACT W/AND (SUSP) EXPOS COVID-19]Onset: 76-91-7918Fvkxjzjjpaxe (1 source)Vaginal Bleeding - 7wks pregOnset: 12-19-2023 Past or Other Problems Problem ClassificationProblemDateDocumented DateEpisodic/ChronicDeficiency and other anemia (1 source)Anemia, unspecified; Translations: [ANEMIA UNSPECIFIED]Onset: 43-35-8699ZynvdppuAU-related trauma to perineum and vulva (1 source)Other specified trauma to perineum and vulva; Translations: [OTHER SPEC TRAUMA PERINEUM AND VULVA]Onset: 44-72-8772FmpsnxquIfmui complications of (1 source)Maternal care for other known or suspected poor growth, third trimester, not applicable or unspecified; Translations: [MAT CARE OTH MT FTL GRTH 3RD TM UNS]Onset: 59-85-7028PvawrbcxAjiom complications of (4 sources)Decreased movements, third trimester, not applicable or unspecified; Translations: [DECR MOVEMENTS 3RD TRI NA/UNS]Onset: 72-55-2513KnqvvucmNupyw complications of (4 sources)Supervision of other high risk pregnancies, third trimester; Translations: [SUP OTH HIGH RISK 3RD TRI]Onset: 90-43-6835Tvxciomz Other complications of (4 sources)Other specified related conditions, unspecified trimester; Translations: [OTH SPEC PREG RELATED COND UNS TRI]Onset: 97-35-1271PfckvnaqVpzql complications of (4 sources)Supervision of other high risk pregnancies, unspecified trimester; Translations: [SUP OTH HIGH RISKPREGNANCY UNS TRI]Onset: 89-06-1854RfrewjvpFtjtl female genital disorders (1 source)Other specified noninflammatory disorders of vagina; Translations: [OTH SPEC NONINFLAMMATORY D/O VAGINA]Onset: 95-05-7457IrklkrruEkcta upper respiratory infections (2 sources)Acute upper respiratory infection, unspecified; Translations: [Acute pharyngitis, unspecified]Onset: 07-09-2021 Resolved: 10-63-2277QcbrlgxfPpxebawo codes; unclassified (1 source)39 weeks gestation of ; Translations: [39 WEEKS GESTATION OF ]Onset: 47-47-1328OagtqhvdAibzqxqx codes; unclassified (1 source)36 weeks gestation of ; Translations: [36 WEEKS GESTATION OF ]Onset: 02-31-1603PqicxictGinwdpol codes; unclassified (1 source)34 weeks gestation of ; Translations: [34 WEEKS GESTATION OF ]Onset: 40-14-0440QofffxroYqcbbwrc codes; unclassified (1 source)35 weeks gestation of ; Translations: [35 WEEKS GESTATION OF ]Onset: 93-52-8850HlcftoukZfpyykac codes; unclassified (1 source)33 weeks gestation of ; Translations: [33 WEEKS GESTATION OF ]Onset: 51-14-5463LfnwkvkeXdkqpvye codes; unclassified (1 source)Weeks of gestation of not specified; Translations: [WEEKS GESTATION NOT SPEC]Onset: 02-08-5256BiunjzicOsnbywui codes; unclassified (1 source)24 weeks gestation of ; Translations: [24 WEEKS GESTATION OF ]Onset: 87-33-9228CifimeagZxuphisv codes; unclassified (4 sources)16 weeks gestation of ; Translations: [16 WEEKS GESTATION OF ]Onset: 29-42-9557JofynyvvGsdbrvmwpzf (4 sources)Complete or unspecified spontaneous without complication; Translations: [Miscarriage]Onset: 773798-04-7581Nvvqqrem Results Test NameValueInterpretationReference RangeFacilityUS OB BPP W NON-STRESS on 43-22-6080[place] [id number] Ultrasound Report Signed Patient: PARIS MOSQUEDA MR#: [id number] : 1990 Acct:[id number] Age/Sex: 34 / F ADM Date: 04/21/25 Loc: US Attending Dr: Jem Ambrosio Ordering Physician: Jem Ambrosio Date of Service: 04/21/25 Procedure(s): US OB BPP w non-stress Accession Number(s): [id number] cc: Jem Ambrosio; [place] [address] Patient Name: PARIS MOSQUEDA MRN: [facility]:[id number] date: 1990 Sex: F Assigned Patient Location: [facility] Current Patient Location: Accession/Order Number: [id number] Exam Date: 04/21/2025 13:04 Report Date: 04/22/2025 [...] Evangelista M.D. 04/22/2025 7:22 AM Dictation Location: [place] [address] Electronically authenticated by: [id number] Y Date: 04/22/2025 07:22 Dictated By: Sarita Evangelista M.D. Signed By: 04/22/25723 DD/ 1 TD/TT: Piece Maker:ROBERTadiologascencion, Radiologist, - 04/22/2025 [place] [address] Ultrasound Report Signed Patient: PARIS MOSQUEDA MR#: [id number] : 1990 Acct:[id number] Age/Sex: 34 / F ADM Date: 04/21/25 Loc: US Attending Dr: Jem Ambrosio Ordering Physician: Jem Ambrosio Date of Service: 04/21/25 Procedure(s): US OB BPP w non-stress Accession Number(s): [id number] cc: Jem Ambrosio; [facility] [place] [address] Patient Name: PARIS MOSQUEDA MRN: [facility]:[id number] date: 1990 Sex: F Assigned Patient Location: [facility] Current Patient Location: Accession/Order Number: [id number] Exam Date: 04/21/2025 13:04 Report Date: 04/22/2025 [...] Evangelista M.D. 04/22/2025 7:22 AM Dictation Location: [place] [address] Electronically authenticated by: [id number] Y Date: 04/22/2025 07:22 Dictated By: Sarita Evangelista M.D. Signed By: 04/22/25723 DD/ 1 TD/TT: Piece Maker: SHERLY HealthcareRadiology Study observation (narrative)NOMS HealthcareUS OB BPP W NON-STRESSOrdered By: Radiologist Radiology on 57-16-1925LFYA Healthcare Work Phone: Urinalysis macro (dipstick) panel (U)on 04-21-2025 Bilirubin, UANegativeNegative - 4(70) +++ mg/dLNOMS HealthcareBlood, UANegative Negative - 50 Celestino/mcLNOMS HealthcareClarity, UAClearNOMS HealthcareColor, UA YellowNOMS HealthcareGlucose, UANegativeNegative - 1999(110) ++++ mg/dLNOMS HealthcareInterpretation and review of laboratory resultsNormalNOWI Healthcare Ketones, UANegativeNegative - 160(16) ++++ mg/dLNOMS HealthcareLeukocytes, UA NegativeNegative - 500+++ Dodie/mcLNOMS HealthcareNitrite, UANegativeNegative - PositiveNOMS HealthcarepH, UA6.05 - 9NOMS HealthcareProtein, UANegativeNegative - 2000(20) ++++ mg/dLNOMS HealthcareSpec Grav, UA1.0101 - 1.03N[facility] Urobilinogen, UA0.20.2 - 12 mg/dLNOMS HealthcareNOMS HealthcareUrinalysis macro (dipstick) panel (U)on 65-98-3634Kcgizfuaq, UA2+Negative - 4(70) +++ mg/dLNOMS HealthcareBlood, UANegativeNegative [...] mg/dLNOMS HealthcareNOMS HealthcareUrinalysis macro (dipstick) panel (U)on 75-43-1062Ihzvxswze, UA NegativeNegative - 4(70) +++ mg/dLNOMS HealthcareBlood, UANegativeNegative - 50 Celestino/mcLNOMS HealthcareClarity, UAClearNOMS HealthcareColor, UAYellowNOMS HealthcareGlucose, UANegativeNegative - 2000(110) ++++ mg/dLNOMS Healthcare Interpretation and review of laboratory resultsNormalNOMS HealthcareKetones, UA NegativeNegative - 160(16) ++++ mg/dLNOMS HealthcareLeukocytes, UANegative Negative - 500+++ Dodie/mcLNOMS HealthcareNitrite, UANegativeNegative - Positive NOMS HealthcarepH, UA6.05 - 9NOMS HealthcareProtein, UANegativeNegative - 2000(20) ++++ mg/dLNOMS HealthcareSpec Grav, UA1.0101 - 1.03NOWI Healthcare Urobilinogen, UA0.20.2 - 12 mg/dLNOMS HealthcareNOMS HealthcareUS OB BPP W NON-STRESSon 61-28-8351Aea[place] [address] Ultrasound Report Signed Patient: PARIS MOSQUEDA MR#: [id number] : 1990 Acct:[id number] Age/Sex: 34 / F ADM Date: 03/31/25 Loc: US Attending Dr: Jem Ambrosio Ordering Physician: Jem Ambrosio Date of Service: 03/31/25 Procedure(s): US OB BPP w non-stress Accession Number(s): [id number] cc: Jem Ambrosio; [place] [id number] Patient Name: PARIS MOSQUEDA MRN: [id number] date: 1990 Sex: F Assigned Patient Location: [facility] Current Patient Location: Accession/Order Number: [id number] Exam Date: 03/31/2025 12:57 Report Date: 03/31/2025 17:44 At the request of: JEM AMBROSIO Procedure: US OB BPP w non-stress Ultrasound biophysical profile INDICATION: Gestational diabetes FINDINGS/ IMPRESSION: Cephalic position. 8/ 8 score biophysical profile. JEANNINE measures 7.9 cm which is borderline oligohydramnios. heart rate 152 beats per minutes. Impression dictated by: Nito Chong M.D. 03/31/2025 5:44 PM Dictation Location: [place] [address] Electronically authenticated by: [id number] Y Date: 03/31/2025 17:44 Dictated By: Nito Chong M.D. Signed By: 03/31/251746 DD/ 43 TD/TT: Piece Maker:GHADAHRadiology, Radiologist, MD - 03/31/2025 [place] [address] Ultrasound Report Signed Patient: PARIS MOSQUEDA MR#: [id number] : 1990 Acct:[id number] Age/Sex: 34 / F ADM Date: 03/31/25 Loc: US Attending Dr: Jem Ambrosio Ordering Physician: Jem Ambrosio Date of Service: 03/31/25 Procedure(s): US OB BPP w non-stress Accession Number(s): [id number] cc: Jem Ambrosio; [address] [address] Patient Name: PARIS MOSQUEDA MRN: [id number] date: 1990 Sex: F Assigned Patient Location: [facility] Current Patient Location: Accession/Order Number: [id number] Exam Date: 03/31/2025 12:57 Report Date: 03/31/2025 17:44 At the request of: JEM AMBROSIO Procedure: US OB BPP w non-stress Ultrasound biophysical profile INDICATION: Gestational diabetes FINDINGS/ IMPRESSION: Cephalic position. 8/ 8 score biophysical profile. JEANNINE measures 7.9 cm which is borderline oligohydramnios. heart rate 152 beats per minutes. Impression dictated by: Nito Chong M.D. 03/31/2025 5:44 PM Dictation Location: [facility] [employer] Electronically authenticated by: [id number] Y Date: 03/31/2025 17:44 Dictated By: Nito Chong M.D. Signed By: 03/31/251746 DD/ 43 TD/TT: Piece Maker: SHERLY HealthcareRadiology Study observation (narrative)[facility] MariselaUS OB BPP W NON-STRESSOrdered By: Radiologist Radiology on 71-86-8263NQBGMercy Hospital St. Louis Work Phone: Urinalysis macro (dipstick) panel (U)on 03-24-2025 Bilirubin, UANegativeNegative - 4(70) +++ mg/dLNOMS HealthcareBlood, UANegative Negative - 50 Celestino/mcLNOMS HealthcareClarity, UAClearNOWI HealthcareColor, UA YellowNOMS HealthcareGlucose, UANegativeNegative - 2000(110) ++++ mg/dLNOWI HealthcareInterpretation and review of laboratory resultsAbnormalNOWestern [facility] Ketones, UANegativeNegative - 160(16) ++++ mg/dLNOWI HealthcareLeukocytes, UA TraceNegative - 500+++ Dodie/mcLNOMS HealthcareNitrite, UANegativeNegative - PositiveNOMS HealthcarepH, UA65 - 9NOMS HealthcareProtein, UATraceNegative - 2000(20) ++++ mg/dLNOMS HealthcareSpec Grav, UA1.021 - 1.03N[facility] Urobilinogen, UA2.00.2 - 12 mg/dLNOMS HealthcareNOMS HealthcareUrinalysis macro (dipstick) panel (U)on 03-19-4184Jiwjdzrwf, UAPositiveNegative - 4(70) +++ mg/dL NOMS HealthcareBlood, UAPositiveNegative - 50 Celestino/mcLNOMS HealthcareClarity, UA ClearNOMS HealthcareColor, UAAmberNOWI HealthcareGlucose, UANegativeNegative - 2000(110) ++++ mg/dLNOWI HealthcareInterpretation and review of laboratory resultsAbnormalNOMS HealthcareKetones, UAPositiveNegative - 160(16) ++++ mg/dL NOMS HealthcareLeukocytes, UAPositiveNegative - 500+++ Dodie/mcLNOWI Healthcare Nitrite, UANegativeNegative - PositiveNOMS HealthcarepH, UA65 - 9[facility] Protein, UAPositiveNegative - 2000(20) ++++ mg/dLNOWI HealthcareSpec Grav, UA 1.031 - 1.03NOWI HealthcareUrobilinogen, UA1.00.2 - 12 mg/dLNOWI HealthcareNOWI HealthcareUS OB FOLLOW UP TRANSABDOMINAL APPROACHon 26-12-3621RW OB FOLLOW UP TRANSABDOMINAL APPROACHFINDINGS: A single, [...] Delivery: 05/05/25 Gestational Age as of 02/16/2025: 90m3nOHV CBC WITH AUTO DIFFon 02-13-2025 BASOPHILS ABSOLUTE XSZF6ECRO HealthcareBasophils/100 WBC (Bld)0.4 %0.2 - 2.0 % NOMS [facility] HospitalEosinophils/100 WBC (Bld)1.5 %0.9 - 7.0 %[facility]OMC[facility] Erythrocyte distribution width (RBC) [Ratio]15 %11.0 - 15.0 %[facility]OMC[facility] Hematocrit (Bld) [Volume fraction]33.1 %Low36.0 - 48.0 %[facility] Hemoglobin (Bld) [Mass/Vol]10.6 g/dLLow12.0 - 16.0 g/dLNOWestern Missouri Mental Health CenterIMMATURE GRANULOCYTES ABS AUTO0.05HighNOWestern [facility] Mental Health CenterImmature granulocytes/100 WBC (Bld) 0.5 %0.0 - 0.5 %[facility]. LouisInterpretation and review of laboratory results AbnormalNOWI HealthcareLYMPHOCYTES ABSOLUTE HLEI1HORD HealthcareLymphocytes/100 WBC (Bld)31.1 %20.5 - 60.0 %[facility] HospitalH (RBC) [Entitic mass]25.4 pgLow 26.7 - 34.0 pgNOWestern Missouri Mental Health CenterMCHC (RBC) [Mass/Vol]32 g/dL29.9 - 35.2 g/dLNOWestern Missouri Mental Health CenterMCV (RBC) [Entitic vol]79.2 fLLow81.0 - 99.0 fLNOWI Healthcare MONOCYTES ABSOLUTE AUTO0.8NOMS HealthcareMonocytes/100 WBC (Bld)8.4 %1.7 - 12.0 %NOMCox Walnut LawnNEUTROPHILS ABSOLUTE AUTO5.7NOMS HealthcareNeutrophils/100 WBC (Bld)58.1 %43.0 - 75.0 %[facility]. LouisPlatelet mean volume (Bld) [Entitic vol] 10 fL9.5 - 13.5 fLNOMS HealthcareTBH EO #0.2NOMS HealthcareTBH [id number] [facility] HospitalTBH RBC4.18LowNOMS HealthcareTBH WBC9.7NOMS HealthcareCLINISYNCNOMS HealthcareUrinalysis macro (dipstick) panel (U)on 74-89-8991Jctiraaou, UA NegativeNegative - 4(70) +++ mg/dLNOMS HealthcareBlood, [...] mg/dLNOMS HealthcareNOMS HealthcareUS OB LIMITED 1+ FETUSESon 37-54-1676IB OB LIMITED 1+ FETUSESFINDINGS: Single viable intrauterine , breech presentation with normal cardiac and activity, 15 0 bpm. Age appropriate, normal visualization of the left ventricular and right ventricular outflowtracts. IMPRESSION: Normal cardiac and outflow tract anatomy. TRANSCRIBED BY: ELECTRONICALLY SIGNED BY: Steven Saavedra AvailableComment on above:Order Comment: US OB INCOMPLETE ANATOMY Estimated Date of Delivery: 05/05/25 Gestational Age as of 12/30/2024: 46t4yKkvccsotyw macro (dipstick) panel (U)on 50-53-1838Xpwluhwkl, UANegativeNegative - 4(70) +++ mg/dLNOMS HealthcareBlood, UANegativeNegative - 50 Celestino/mcLNOMS HealthcareClarity, UAClearNOMS Healthcare Color, UAYellowNOMS HealthcareGlucose, UANegativeNegative - 2000(110) ++++ mg/dL NOMS HealthcareInterpretation and review of laboratory resultsNormalNOMS HealthcareKetones, UANegativeNegative - 160(16) ++++ mg/dLNOWI Healthcare Leukocytes, UANegativeNegative - 500+++ Dodie/mcLNOMS HealthcareNitrite, UA NegativeNegative - PositiveNOMS HealthcarepH, UA75 - 9NOMS HealthcareProtein, UA TraceNegative - 2000(20) ++++ mg/dLNOMS HealthcareSpec Grav, UA1.0251 - 1.03NOMS HealthcareUrobilinogen, UA0.20.2 - 12 mg/dLNOMS HealthcareNOMS HealthcareNo Panel InformationOrdered By: Radiologist Radiology on 94-06-5702NPYV Healthcare Work Phone: No Panel Informationon 81-49-7257Xpdbfyodu Study observation (narrative)SHERLY HealthcareUS OB ANATOMYon 29-90-7838NehFort [place] [address] Ultrasound Report Signed Patient: PARIS MOSQUEDA MR#: [id number] : 1990 Acct:[id number] Age/Sex: 34 / F ADM Date: 12/19/24 Loc: US Attending Dr: Scooby Alvarado D.O. Ordering Physician: Scooby Alvarado D.O. Date of Service: 12/19/24 Procedure(s): US OB anatomy Accession Number(s): [id number] cc: [facility] ; Scooby Alvarado D.O. The [address] [address] Patient Name: PARIS MOSQUEDA MRN: [facility]:[id number] date: 1990 Sex: F Assigned Patient Location: US Current Patient Location: US Accession/Order Number: [id number] Exam Date: 12/19/2024 11:33 Report Date: 12/19/2024 [...] Evangelista M.D. 12/19/2024 11:39 AM Dictation Location: [place] [address] Electronically authenticated by: [id number] Y Date: 12/19/2024 11:39 Dictated By: Sarita Evangelista M.D. Signed By: 12/19/24 1142 DD/ 1139 TD/TT: Piece Maker:TBHRadiology, Radiologist, MD - 12/19/2024 [place] [address] Ultrasound Report Signed Patient: PARIS MOSQUEDA MR#: [id number] : 1990 Acct:[id number] Age/Sex: 34 / F ADM Date: 12/19/24 Loc: US Attending Dr: Scooby Alvarado D.O. Ordering Physician: Scooby Alvarado D.O. Date of Service: 12/19/24 Procedure(s): US OB anatomy Accession Number(s): [id number] cc: [facility] ; Scooby Alvarado D.O. [place] [id number] Patient Name: PARIS MOSQUEDA MRN: [id number]:[id number] date: 1990 Sex: F Assigned Patient Location: US Current Patient Location: US Accession/Order Number: [id number] Exam Date: 12/19/2024 11:33 Report Date: 12/19/2024 [...] Evangelista M.D. 12/19/2024 11:39 AM Dictation Location: [place] [address] Electronically authenticated by: [id number] Y Date: 12/19/2024 11:39 Dictated By: Sarita Evangelista M.D. Signed By: 12/19/24 1142 DD/ 1139 TD/TT: Piece Maker: SHERLY Interiano OB CERVICAL LENGTHon 40-42-9359Shy[place] [address] Ultrasound Report Signed Patient: PARIS MOSQUEDA MR#: [id number] : 1990 Acct:[id number] Age/Sex: 34 / F ADM Date: 12/19/24 Loc: US Attending Dr: Scooby Alvarado D.O. Ordering Physician: Scooby Alvarado D.O. Date of Service: 12/19/24 Procedure(s): US OB cervical length Accession Number(s): [id number] cc: [facility] ; Scooby Alvarado D.O. [place] [address] Patient Name: PARIS MOSQUEDA MRN: [id number] date: 1990 Sex: F Assigned Patient Location: US Current Patient Location: US Accession/Order Number: [id number] Exam Date: 12/19/2024 11:33 Report Date: 12/19/2024 [...] Evangelista M.D. 12/19/2024 11:39 AM Dictation Location: [place] [address] Electronically authenticated by: [id number] Y Date: 12/19/2024 11:39 Dictated By: Sarita Evangelista M.D. Signed By: 12/19/24 1142 DD/ 1139 TD/TT: Piece Maker:TBHRadiology, Radiologist, MD - 12/19/2024 [place] [address] Ultrasound Report Signed Patient: PARIS MOSQUEDA MR#: [id number] : 1990 Acct:[id number] Age/Sex: 34 / F ADM Date: 12/19/24 Loc: US Attending Dr: Scooby Alvarado D.O. Ordering Physician: Scooby Alvarado D.O. Date of Service: 12/19/24 Procedure(s): US OB cervical length Accession Number(s): [id number] cc: [facility] ; Scooby Alvarado D.O. The [place] [id number] Patient Name: PARIS MOSQUEDA MRN: [facility]:[id number] date: 1990 Sex: F Assigned Patient Location: US Current Patient Location: US Accession/Order Number: [id number] Exam Date: 12/19/2024 11:33 Report Date: 12/19/2024 [...] Evangelista M.D. 12/19/2024 11:39 AM Dictation Location: [place] [address] Electronically authenticated by: [id number] Y Date: 12/19/2024 11:39 Dictated By: Sarita Evangelista M.D. Signed By: 12/19/24 1142 DD/ 1139 TD/TT: Piece Maker: MARJORIE Andrew HPV,AGE GDLNon 43-29-7739OZR GDLN ACOG TESTINGNote. [facility] HealthcareComment on above:TESTS RESULT FLAG UNITS REF RANGE LAB Clinician Provided Cytology Information Source.............Vagina Other.............. No. of containers..01 ThinPrep Vial Age Algo [facility] [place]... 3065 01 FLAG LEGEND: L-Low Normal,H-High Normal,LL-Alert Low,HH-Alert High <-Panic Low,>-Panic High,A-Abnormal,AA-Critical Abnormal Performed at: 01 =G [address] [place] [address] Cindy Pinzon MD, HPV APTIMANegativeNegativeNOMS HealthcareComment on above:This nucleic acid amplification test detects fourteen high- risk HPV types (16,18,31,33,35,39,45,51,52,56,58,59,66,68) without differentiation. Performed at: =[address] [id number] Dross Puller: Cindy Pinzon MD, Phone: [phone] Performed at: [address] [id number] Dross Puller: Cindy Pinzon MD, Phone: [phone] IGP, APTIMA HPV, RFX 16/18,45Note.NOMS HealthcareComment on above:TESTS RESULT FLAG UNITS REF RANGE LAB DIAGNOSIS: 02 NEGATIVE FOR INTRAEPITHELIAL LESION OR MALIGNANCY. Specimen adequacy: 02 Satisfactory for evaluation. No endocervical component is identified. Performed by: 02 Yanni Dela Cruz Tor[employer] ([facility]) . 02 Note: Note 02 The [...] High,A-Abnormal,AA-Critical Abnormal Performed at: 02 [address] [facility] [address] [address] Cindy Pinzon MD, SPATULA-ALONE VAGINA CLINISYNCNOMS HealthcareRECURRENT VAGINITIS (HTRX)on 87-02-6732NGQYPJGYP VAGINAE 0NOMS HealthcareATOPOBIUM VAGINAENot detectedNOMS HealthcareBVAB 2,3 (BACTERIAL VAGINOSIS ASSOCIATED BACTERIA 2, 3); MOBILUNCUS ACI4JBFI HealthcareBVAB 2,3 (BACTERIAL VAGINOSIS ASSOCIATED BACTERIA 2, 3); MOBILUNCUS SPPNot detectedNOMS HealthcareCANDIDA ALBICANS, PARAPSILOSIS, QJQAUDLNHN3PGWO HealthcareCANDIDA ALBICANS, PARAPSILOSIS, TROPICALISNot detectedNOMS HealthcareCANDIDA GLABRATA0 NOMS HealthcareCANDIDA GLABRATANot detectedNOMS HealthcareCANDIDA XRDBEW4OMGT HealthcareCANDIDA KRUSEINot detectedNOMS HealthcareCHLAMYDIA BUTVOVERBHZ1NIRR HealthcareCHLAMYDIA TRACHOMATISNot detectedNOMS HealthcareGARDNERELLA VAGINALIS0 NOMS HealthcareGARDNERELLA VAGINALISNot detectedNOMS HealthcareMEGASPHAERA (TYPES 1, 2)0NOMS HealthcareMEGASPHAERA (TYPES 1, 2)Not detectedNOMS Healthcare MYCOPLASMA JWHFKHKXWB5YKCY HealthcareMYCOPLASMA GENITALIUMNot detectedNOMS HealthcareNEISSERIA RQJKOKIQQEL9NUHX HealthcareNEISSERIA GONORRHOEAENot detected NOMS HealthcareTRICHOMONAS AKPXNWBDB4EMXI HealthcareTRICHOMONAS VAGINALISNot detectedNOMS HealthcareNOMS HealthcareUrinalysis macro (dipstick) panel (U)on 90-73-0886Ruaaeqkwx, UANegativeNegative - 4(70) +++ mg/dLNOMS HealthcareBlood, UANegativeNegative - 50 Celestino/mcLNOMS HealthcareClarity, UAClearNOMS Healthcare Color, UAYellowNOMS HealthcareGlucose, UANegativeNegative - 2000(110) ++++ mg/dL NOMS HealthcareInterpretation and review of laboratory resultsNormalNOMS HealthcareKetones, UANegativeNegative - 160(16) ++++ mg/dLNOWI Healthcare Leukocytes, UAPositiveNegative - 500+++ Dodie/mcLNOMS HealthcareComment on above: smallNitrite, UANegativeNegative - PositiveNOMS HealthcarepH, UA75 - 9NOMS HealthcareProtein, UANegativeNegative - 2000(20) ++++ mg/dLNOMS HealthcareSpec Grav, UA1.0151 - 1.03NOMS HealthcareUrobilinogen, UA0.20.2 - 12 mg/dLNOMS HealthcareNOMS HealthcareGlucose random or fasting- POCTOrdered By: James Rader on 89-34-8060Lxirehez Glucose Fasting Or Random (Fbs)94[facility] HospitalShelby Memorial Hospital SystemUrinalysis macro (dipstick) panel (U)on 11-13-2024 Bilirubin, UANegativeNegative - 4(70) +++ mg/dLNOMS HealthcareBlood, UANegative Negative - 50 Celestino/mcLNOWI HealthcareClarity, UAClearNOMS HealthcareColor, UA YellowNOMS HealthcareGlucose, UANegativeNegative - 2000(110) ++++ mg/dLNOMS HealthcareInterpretation and review of laboratory resultsAbnormSelect Specialty Hospital - [facility]stown Ketones, UANegativeNegative - 160(16) ++++ mg/dLNOWI HealthcareLeukocytes, UA TraceNegative - 500+++ Dodie/mcLNOWI HealthcareNitrite, UANegativeNegative - PositiveNOMS HealthcarepH, UA65 - 9NOMS HealthcareProtein, UANegativeNegative - 2000(20) ++++ mg/dLNOMS HealthcareSpec Grav, UA1.011 - 1.03NOWI Healthcare Urobilinogen, UA0.20.2 - 12 mg/dLNOWestern Missouri Mental Health CenterNOWI HealthcareBOX TESTon 73-36-1710ATC TEST SENT OUTunmarymount hospitalNOWI CyvcymtcibUEE8xsfxsPAWF HealthcareBOX2 11/11/24NOWI HealthcareUNITY BOX CLINISYNCSANPETE VALLEY [facility]ITAL HealthcareHCG ( test) Ql (U)on 91-86-6491Wqqkseoqoafeed and review of laboratory resultsAbnormSelect Specialty Hospital - JohnstownPreg Test, UrPositive NegativeNOMosaic Life Care at St. Joseph HealthcareUS OB TRANSVAGINALon 92-88-5951DP OB TRANSVAGINALEXAM: US OB TRANSVAGINAL HISTORY: Dating. [...] PHD at 16-Oct-2024 11:21:08 PM [facility] TeleradiologyNormalNot AvailableComment on above:Order Comment: US OB TRANSVAGINAL No LMP recorded.US Pelvis transvaginalon 25-37-8102LHQC: US OB TRANSVAGINAL HISTORY: Dating. A1. LMP [...] PHD at 16-Oct-2024 11:21:08 PM [facility] IMAGINGSluss, MD Ekaterina - 10/16/2024 EXAM: [...] PHD at 16-Oct-2024 11:21:08 PM [facility]elerad[facility] HealthcareRadiology Study observation (narrative)NOMS HealthcareUS Pelvis transvaginalOrdered By: Ekaterina Carroll on 71-13-6057ULXH [employer] [facility] [employer] Work Phone: Urinalysis macro (dipstick) panel (U)on 10-16-2024 Bilirubin, UANegativeNegative - 4(70) +++ mg/dLNOMS HealthcareBlood, UANegative Negative - 50 Celestino/mcLNOMS HealthcareClarity, UAClearNOMS HealthcareColor, UA YellowNOMS HealthcareGlucose, UANegativeNegative - 2000(110) ++++ mg/dLNOWI HealthcareInterpretation and review of laboratory resultsAbnormalNOWI Healthcare Ketones, UAPositiveNegative - 160(16) ++++ mg/dLNOMS HealthcareComment on above: 80mg/dLLeukocytes, UAPositiveNegative - 500+++ Dodie/mcLNOMS HealthcareComment on above:smallNitrite, UANegativeNegative - PositiveNOMS HealthcarepH, UA5.55 - 9 NOMS HealthcareProtein, UAPositiveNegative - 2000(20) ++++ mg/dLNOWI Healthcare Comment on above:30mg/dLSpec Grav, UA1.031 - 1.03NOWI HealthcareUrobilinogen, UA 0.20.2 - 12 mg/dLNOWI HealthcareNOWI HealthcareHGB AND HCTon 12-21-2023 Hematocrit (Bld) [Volume fraction]28.7 %Zkp73-51LocBbczgwKnox Community Hospital Comment on above:Performed By: #### HH #### [facility] ([id number]) [address] [place] [address]360Hruamxwjow (Bld) [Mass/Vol]9.8 g/dLLow11.7-15.5ProMedica College Medical CenterComment on above:Performed By: #### HH #### [facility] ([id number]) [address] [place] [address] 16864Lfhostac Pathologyon 28-01-4199Nmsufbxm PathologyNormal [facility] Community HospitalComment on above:Result Comment: [facility] [address] [place] [address] Surgical Pathology Consultation Patient Name:BRIAN MOSQUEDA:1990 (Age: 33)Gender:FTaken:4Reported:4Physician(s):Cody Desai MD ([phone])Copy To: Rec. #:[id number]: #[id number] [phone] Final Pathologic Diagnosis Products of conception; removal: Products of conception (gestational sac with immature chorionic villi) and fragments of decidua with acute inflammation and necrosis. Report Electronically Signed Out wacha/12/28/2023Pradeep Brannon MD Interpretation performed at [facility], [address] [place] [address], License number: [id number]. Clinical History Spontaneous , miscarriage. Gross Description Received in formalin labeled MOSQUEDA Karyotype: No Aggregate measurement: 5.2 x 3.8 x 2.0 cm. Placenta: 3.4 x 2.8 x 1.5 cm Decidua/Clot: 1.8 x 1.0 x 0.5 cm Gestational Sac: Yes, intact Tissue: No Molar Tissue: No Cassettes: A-C placenta (3, ss, W42-17720,m5) DM Received fresh-no site on container. POC for routine surgical path. Per Ariana pierson/12/21/2023GR Specimen(s) Received Products of conception Fee Codes(s): 1; 98703WO PREG LESS THAN 14 WKS WITH TRANSVAGINALon 38-66-3648TJ PREG LESS THAN 14 WKS WITH TRANSVAGINALUS [...] by Isamar Monroy MD on 12/21/2023 8:46 AMNormalKnox Community HospitalBASIC METABOLIC PANLon 35-73-3989Qxfmt gap [Moles/Vol]6 mmol/LNormal5-15 ProMFremont Memorial HospitalComment on above:Performed By: #### CHETAN HERNADEZ, 16297-8 #### [facility] ([id number]) [address] [place] [address], [place] [address]Ogncopb [Mass/Vol]8.9 mg/dLNormal8.5-10.5PClermont County HospitalComment on above:Performed By: #### CHETAN HERNADEZ, #### [facility] ([id number]) [address] [place] [address], [place] [address]Lupubpbc [Moles/Vol]105 mmol/ILxxhes24-325GkaOhwpwkKnox Community HospitalComment on above:Performed By: #### CHETAN HERNADEZ, 48453-7 #### [facility] ([id number]) [address] [place] [address] 09646YU4 [Moles/Vol]24 mmol/JPwylpt82-32VyjWjhpnpClermont County Hospital Comment on above:Performed By: #### CHETAN HERNADEZ, 67250-6 #### [facility] ([id number]) [address] [place] [address] 397[address]Usttiiaqzu [Mass/Vol]0.74 mg/dLNormal0.40-1.00Knox Community HospitalComment on above:Result Comment: METHOD TRACEABLE TO IDMS STANDARD Performed By: #### CHETAN HERNADEZ, 84268-1 #### [facility] ([id number]) [address] [place] [address], [place] [address]vPQW (CKD-EPI) NON-RACE DEPENDENT>90Normal>59ProEnnis Regional Medical CenterComment on above:Result Comment: Reported eGFR is based on the CKD-EPI 2020 equation that does not use a race coefficient.Performed By: #### CHETAN HERNADEZ, #### [facility] ([id number]) [address] [place] [address] 67151Mfzcure [Mass/Vol]149 mg/aDFdnw89-15VxyFnpeveKnox Community Hospital Comment on above:Performed By: #### CHETAN HERNADEZ, #### [facility] ([id number]) [address] [place] [address] 984[address]Mtqtbmnel [Moles/Vol]3.6 mmol/LNormal3.5-5.0Kn[facility] Community HospitalComment on above:Performed By: #### CHETAN HERNADEZ, #### [facility] ([id number]) [address] [place] [address] 97447Ahoymt [Moles/Vol]135 mmol/DLojroa355-651GjkUghqyuKnox Community HospitalComment on above:Performed By: #### CHETAN HERNADEZ, #### [facility] ([id number]) [address] [place] [address] 92457Mact nitrogen [Mass/Vol]10 mg/dLNormal5-23ProEnnis Regional Medical CenterComment on above:Performed By: #### CHETAN HERNADEZ, #### [facility] ([id number]) [address] [place] [address] 276[address]ZVZ AND AUTO DIFFon 57-40-7142IVURNLCJ BASOPHIL0.0 X10E9/L Normal0.0-0.2ProMedOrthopaedic HospitalComment on above:Performed By: #### CHETAN HERNADEZ, #### [facility] ([id number]) [address] [place] [address] 22806RFAMVLKR NEUTROPHIL4.9 X10E9/LNormal1.5-6.6Kn[facility] Community HospitalComment on above:Performed By: #### MARICARMEN CBCA, #### [facility] ([id number]) [address] [place] [address] 20738Xdlftgfjx/100 WBC (Bld)0.4 %[facility] Comment on above:Performed By: #### MARICARMEN CBCA, #### [facility] ([id number]) [address] [place] [address] 65447Zahaotxorqu (Bld) [#/Vol]0.3 10*3/uLNormal0.0-0.4ProEnnis Regional Medical CenterComment on above:Performed By: #### MARICARMEN CBCA, #### [facility] ([id number]) [address] [place] [address] 52496Aqftljspifi/100 WBC (Bld)2.3 %[facility] Comment on above:Performed By: #### MARICARMEN CBCA, #### [facility] ([id number]) [address] [place] [address] 04253Wgevtvzxcky distribution width (RBC) [Ratio]13.8 %Normal 11.5-15.0Knox Community HospitalComment on above:Performed By: #### MARICARMEN CBCA, #### [facility] ([id number]) [address] [place] [address] 03206Rpkykuxdxs (Bld) [Volume fraction]34.8 %Xed79-51VqxWheeeiEnnis Regional Medical CenterComment on above:Performed By: #### MARICARMEN CBCA, #### [facility] ([id number]) [address] [place] [address] [place] [address]Didcipstic (Bld) [Mass/Vol]11.5 g/dLLow11.7-15.5PClermont County HospitalComment on above:Performed By: #### CHETAN HERNADEZ, #### [facility] ([id number]) [address] [place] [address] 84768Cedggbyiihc (Bld) [#/Vol]4.6 10*3/uLHigh1.0-3.5PClermont County HospitalComment on above:Performed By: #### MARICARMEN CBCPaco, #### [facility] ([id number]) [address] [place] [address] 29731Dybkjycrkux/100 WBC (Bld)41.7 %NormalKnox Community Hospital Comment on above:Performed By: #### CHETAN HERNADEZ, #### [facility] ([id number]) [address] [place] [address] 67631OTL (RBC) [Entitic mass]27.8 dkVwiuew02-44EneAwnrbfKnox Community HospitalComment on above:Performed By: #### MARICARMEN CBCA, #### [facility] ([id number]) [address] [place] [address]64[address]EBLQ (RBC) [Mass/Vol]33.0 g/iOQpnusz81-81MpqDsjaalEnnis Regional Medical CenterComment on above:Performed By: #### MARICARMEN CBCA, #### [facility] ([id number]) [address] [place] [address] 56693GJA (RBC) [Entitic vol]84 oAWuidaa79-735IwxWzramz Fremont HospitalComment on above:Performed By: #### MARICARMEN CBCA, #### [facility] ([id number]) [address] [place] [address] 44295Uyevjhmzi (Bld) [#/Vol]1.2 10*3/uLHigh0-0.9Knox Community HospitalComment on above:Performed By: #### CHETAN HERNADEZ, #### [facility] ([id number]) [address] [place] [address] 48951Kyuhbqkgi/100 WBC (Bld)11.1 %NormalKnox Community Hospital Comment on above:Performed By: #### MARICARMEN CBCPaco, #### [facility] ([id number]) [address] [place] [address] 71713Hfqxmwwmnck/100 WBC (Bld)44.5 %[facility] Comment on above:Performed By: #### CHETAN HERNADEZ, #### [facility] ([id number]) [address] [place] [address] 61582Qsamwfmj mean volume (Bld) [Entitic vol]7.6 fLNormal7-12 [facility] HospitalComment on above:Performed By: #### CHETAN HERNADEZ, #### [facility] ([id number]) [address] [place] [address] 97440Mbtsllgtw (Bld) [#/Vol]323 10*3/tZEttlxs081-197LmjNdzwdx Fremont HospitalComment on above:Performed By: #### CHETAN HERNADEZ, #### [facility] ([id number]) [address] [place] [address] 972[address]IZB COUNT4.12 X10E12/LNormal3.80-5.20[facility] Comment on above:Performed By: #### MARICARMEN CBCA, #### [facility] ([id number]) [address] [place] [address] 61426VBK (Bld) [#/Vol]11.0 10*3/uLNormal4.0-11.0Knox Community HospitalComment on above:Performed By: #### ROXIE HERNADEZA, #### [facility] ([id number]) [address] [place] [address] 41903TKZ.beta subunit IA 3rd IS Qnon 86-25-0104YZK.beta subunit Qn 5361 m[IU]/mLNormalKnox Community HospitalComment on above:Result Comment: NEW REFERENCE RANGE [...] neoplasms. Performed By: #### MARICARMEN CBCA, #### [facility] ([id number]) [address] [place] [address] 49776JKP ( test) Ql (U)on 59-41-7242Gaaq HCG ( test) Ql (U)PositiveAbnormalNEGKnox Community HospitalComment on above: Performed By: #### 2106-3 #### [facility] ([id number]) [address] [place] [address] 22959TRR.beta subunit IA 3rd IS Qnon 73-46-7175LOB.beta subunit Qn 6620 m[IU]/mLNormalProEnnis Regional Medical CenterComment on above:Result Comment: NEW REFERENCE [...] trophoblastic or nontrophoblastic neoplasms. Performed By: #### 85675-9 #### [facility] ([id number]) [address] [place] [address] 97810KCW MACROSCOPIC NURon 10-72-3520DKSMQUXLI NURSmallAbnormalNEG ProMedica College Medical CenterComment on above:Performed By: #### NUM #### [facility] ([id number]) [address] [place] [address] 20822ODOEK/HGB NURLargeAbnormalNEGProEnnis Regional Medical CenterComment on above:Performed By: #### NUM #### [facility] ([id number]) [address] [place] [address] 41604UCYXOUN NURNegativeNormalNEGProMedica College Medical CenterComment on above:Performed By: #### NUM #### [facility] ([id number]) [address] [place] [address] 68929GMKJHUY NURTraceAbnormalNEGProEnnis Regional Medical CenterComment on above:Performed By: #### NUM #### [facility] ([id number]) [address] [place] [address] 82196KRLCLKGBF ESTERASE NURNegativeNormalNEGProEnnis Regional Medical CenterComment on above:Performed By: #### NUM #### [facility] ([id number]) [address] [place] [address] 85034TUFAGHE NURNegativeNormalNEGKnox Community HospitalComment on above:Performed By: #### NUM #### [facility] ([id number]) [address] [place] [address] 16402PY NUR6.1Nnlydb3.0-8.5PClermont County HospitalComment on above:Performed By: #### NUM #### [facility] ([id number]) [address] [place] [address] 64791QMYWUTB ZUH895 mg/dLAbnocarepartners rehabilitation hospitalNEGKnox Community Hospital Comment on above:Performed By: #### NUM #### [facility] ([id number]) [address] [place] [address] 69906QZDOCGQS GRAVITY NIKITA>=1.824Pjjhxh0.003-1.035ProEnnis Regional Medical CenterComment on above:Performed By: #### NUM #### [facility] ([id number]) [address] [place] [address] 78901IMWZIPAKXXNX NUR1.0 eu/dLNormal<1.1PClermont County Hospital Comment on above:Performed By: #### NUM #### [facility] ([id number]) [address] [place] [address] 52023GY PREG LESS THAN 14 WKS WITH TRANSVAGINALon 59-38-9219KJ PREG LESS THAN 14 WKS WITH TRANSVAGINALUS [...] Olvin Overton MD on 12/19/2023 6:46 PMNormalProMedica Robert [facility]. [facility] OB TRANSVAGINALon 69-74-3958[place] [address] Ultrasound Report Signed Patient: PARIS MOSQUEDA MR#: [id number] : 1990 Acct:[id number] Age/Sex: 33 / F ADM Date: 12/14/23 Loc: [facility] Attending Dr: Scooby Alvarado D.O. Ordering Physician: Scooby Alvarado D.O. Date of Service: 12/14/23 Procedure(s): US OB transvaginal Accession Number(s): [id number] cc: [facility] ; Scooby Alvarado D.O. The [address] [address] Patient Name: PARIS MOSQUEDA MRN: [id number] date: 1990 Sex: F Assigned Patient Location: [facility] Current Patient Location: [facility] Accession/Order Number: [id number] Exam Date: 12/14/2023 09:01 Report Date: 12/14/2023 [...] M.D. Signed By: 12/14/23 0956 DD/ TD/TT: Piece Maker:TBHRadiology, Radiologist, - 12/14/2023 [place] [address] Ultrasound Report Signed Patient: PARIS MOSQUEDA MR#: [id number] : 1990 Acct:[id number] Age/Sex: 33 / F ADM Date: 12/14/23 Loc: [facility] Attending Dr: Scooby Alvarado D.O. Ordering Physician: Scooby Alvarado D.O. Date of Service: 12/14/23 Procedure(s): US OB transvaginal Accession Number(s): [id number] cc: [facility] ; Scooby Alvarado D.O. The [address] [address] Patient Name: PARIS MOSQUEDA MRN: [id number] date: 1990 Sex: F Assigned Patient Location: [facility] Current Patient Location: [facility] Accession/Order Number: [id number] Exam Date: 12/14/2023 09:01 Report Date: 12/14/2023 [...] Forrest M.D. Signed By: 12/14/2356 DD/ TD/TT: Piece Maker: SHERLY HealthcareRadiology Study observation (narrative)[facility] LouisUS OB TRANSVAGINALOrdered By: Radiologist Radiology on 87-81-7064DUVF [employer] Work Phone: chlamydia/GC/Trich NAAon 44-24-5248Iqjxfeokp Trachomotis, NAANegativeNormalNegativeMercy HospitalComment on above:Performed By: #### CUU #### [facility] [address] [place] [address] [place] #### GCCHLAMTRI #### [facility] ,Neisseria Gonorrhoeae, NAANegativeNormalNegativeMercy HospitalComment on above:Performed By: #### CUU #### [facility] [address] [place] [address] [place] #### GCCHLAMTRI #### [facility] ,Trichomonas NAANegativeNormalNegCleveland Clinic Akron GeneralComment on above:Result Comment: Performed at: =[address] [place], [place] [id number] Dross Puller: Cindy Pinzon MD, Phone: [phone] PERFORMED BY: [place] [address] PATHOLOGIST BEEF KILLER BROOKLYNN PEARCE M.D.Performed By: #### CUU #### [place] [address] [place] #### GCCHLAMTRI #### [facility] ,Urine Cultureon 08-62-0656Mgsgecxe identified Cx Nom (U)30,000 colonies/ml mixed bacterial skin contaminants 2 Days PERFORMED BY: [place] [address] PATHOLOGIST BEEF KILLER BROOKLYNN PEARCE M.D.[facility] Rita's Medical CenterComment on above: Performed By: #### CUU #### [address] #### GCCHLAMTRI #### [facility] ,Pap IG,rfx Aptima HPV all pthon 11-16-2021..NormalMercy Health Urbana HospitalComment on above:Performed By: #### HIV12 #### [facility] [address] [place] [address] Andriy KarenDIAGNOSIS:CommentNormOhioHealth Grove City Methodist HospitalComchildren's hospital of [facility] on above:Result Comment: NEGATIVE FOR INTRAEPITHELIAL LESION OR MALIGNANCY. THIS SPECIMEN WAS RESCREENED PART OF OUR PRODUCTION ARTIST PROGRAM.Performed By: #### HIV12 #### [facility] [address] [place] [address] Andriy KarenMethodology:CommentNormOhioHealth Grove City Methodist HospitalComment on above: Result Comment: This liquid based ThinPrep(R) pap test was screened with the use of an image guided system.Performed By: #### HIV12 #### [facility] [address] [place] [address] Andriy RodgersenNote:CommentNormOhioHealth Grove City Methodist HospitalComment on above:Result Comment: The Pap smear is a screening test designed to aid in the detection of premalignant and malignant conditions of the uterine cervix. It is not a diagnostic procedure and should not be used as the sole means of detecting cervical cancer. Both false-positive and false-negative reports do occur. .Performed By: #### HIV12 #### [facility] [address] [place] [address] Andriy KarenPerformed by:[facility] on above: Result Comment: Yanni Dela Cruz, Executive Search Consultant (ASCP)Performed By: #### HIV12 #### [facility] [address] [place] [address] Andriy KarenQC reviewed by:[facility] on above: Result Comment: Summer Motley, Supervisory Executive Search Consultant (ASCP)Performed By: #### HIV12 #### [facility] [address] [place] [address] Andriy KarenReflex Criteria:[facility] on above: Result Comment: The HPV DNA reflex criteria were not met with this specimen result therefore, no HPV testing was performed. .Performed By: #### HIV12 #### [facility] [address] [place] [address] Andriy KarenSpecimen adequacy:[facility] on above:Result Comment: Satisfactory for evaluation. Endocervical and/or squamous metaplastic cells (endocervical component) are present.Performed By: #### HIV12 #### [facility] [address] [place] [address] Andriy KarenCBC AUTO DIFFon 10-23-6827LXOK #0.0 103/ulNormal0.0-0.1The [facility] HospitalComment on above:Performed By: #### HIV12 #### [facility] [address] [place] [address] Andriy KarenBasophils/100 WBC (Bld)0.2 %Normal0.2-2.0[facility] Comment on above:Performed By: #### [id number] #### [facility] [address] [place] [address] Andriy KarenEO #0.2 103/ulNormal0.0-0.7[facility] HospitalComment [facility] above: Performed By: #### [id number] #### [facility] [address] [place] [address] Andriy KarenEosinophils/100 WBC (Bld)1.4 %Normal0.9-7.0[facility] Comment on above:Performed By: #### [id number] #### [facility] [address] [place] [address] Andriy KarenErythrocyte distribution width (RBC) [Ratio]16.9 %Critically high 11.0-15.0The [facility] HospitalComment on above:Performed By: #### HIV12 #### [facility] [address] [place] [address] Andriy KarenHematocrit (Bld) [Volume fraction]28.9 %Critically low36.0-48.0The [facility] HospitalComment on above:Performed By: #### HIV12 #### [facility] [address] [place] [address] Andriy KarenHemoglobin (Bld) [Mass/Vol]9.2 g/dLCritically low12.0-16.0The [facility] HospitalComment on above:Result Comment: PATIENT DELIVEREDPerformed By: #### HIV12 #### [facility] [address] [place] [address] Andriy KarenIG #0.07 10e3/ulCritically high0.00-0.03The [facility] HospitalComment on above:Performed By: #### HIV12 #### [facility] [address] [place] [address] Andriy KarenIG %0.7 %Critically high0.0-0.5The [facility] HospitalComment on above:Performed By: #### HIV12 #### [facility] [address] [place] [address] Andriy KarenLYMPH #3.2 103/ulNormal1.2-3.8The [facility] HospitalComment on above: Performed By: #### HIV12 #### [facility] [address] [address] Andriy KarenLymphocytes/100 WBC (Bld)29.7 %Jkqdjr63.5-60.0[facility] Comment on above:Performed By: #### HIV12 #### [facility] [address] [place] [address] Andriy KarenMANUAL DIFF REQNONormalThe [facility] HospitalComment on above: Performed By: #### HIV12 #### [facility] [address] [place] [address] Andriy KarenMCH (RBC) [Entitic mass]28.0 uaNazufh00.7-34.0[facility] Comment on above:Performed By: #### HIV12 #### [facility] [address] [place] [address] Andriy KarenMCHC (RBC) [Mass/Vol]31.8 g/xPFjmojn44.9-35.2[facility] Comment on above:Performed By: #### HIV12 #### [facility] [address] [place] [address] Andriy KarmaicoMCV (RBC) [Entitic vol]87.8 sEBtjons07.0-99.0[facility] Comment on above:Performed By: #### HIV12 #### [facility] [address] [place] [address] Andriy KarenMONO #0.9 103/ulCritically high0.3-0.8The [facility] HospitalComment on above:Performed By: #### HIV12 #### [facility] [address] [place] [address] Andriy KarenMonocytes/100 WBC (Bld)8.3 %Normal1.7-12.0[facility] Comment on above:Performed By: #### HIV12 #### [facility] [address] [place] [address] Andriy KarenNEUT #6.3 103/ulNormal1.4-6.5The [facility] HospitalComment on above: Performed By: #### HIV12 #### [facility] [address] [place] [address] Andriy RodgersenNeutrophils/100 WBC (Bld)59.7 %Nnjeho13.0-75.0[facility] Comment on above:Performed By: #### HIV12 #### [facility] [address] [place] [address] Andriy RodgersenPlatelet mean volume (Bld) [Entitic vol]9.7 fLNormal9.5-13.5The [facility] HospitalComment on above:Performed By: #### HIV12 #### [facility] [address] [place] [address] Andriy StlmuHST214 103/yiMnxuke209-406Blq [facility] HospitalComment on above: Performed By: #### HIV12 #### [facility] [address] [place] [address] Andriy KarenRBC3.29 106/ulCritically low4.20-5.40The [facility] HospitalComment on above:Performed By: #### HIV12 #### [facility] [address] [place] [address] Andriy RodgersenWBC10.6 103/ulNormal4.0-11.0The [facility] HospitalComment on above: Performed By: #### HIV12 #### [facility] [address] [place] [address] Andriy KarenASYMPTOMATIC COVID-19 ANTIGENon [id number] StatementSEE BELOW NormalThe [facility] HospitalComment on above:Result Comment: This test [...] is revoked sooner.Performed By: #### HBSANS #### [facility] [address] [place] [address] Andriy Le-CoV-2 (COVID-19) RNA CARLITOS+probe Ql (Unsp spec)NegativeNormal NEGATIVEThe [facility] Memorial HospitalComment on above:Result Comment: Negative results are presumptive. They do not preclude infection and should not be used as the sole basis for treatment decisions. Additional confirmatory testing by a molecular method should be considered.Performed By: #### HBSANS #### [facility] [address] [place] [address] Andriy RodgersenCBC AUTO DIFFon [id number] #0.0 103/ulNormal0.0-0.1The [facility] HospitalComment on above:Performed By: #### CBC ####[facility] Flqsygbnzb[address] [place], [place] [address]Dr.Sunil ChangBasophils/100 WBC (Bld)0.2 %Normal0.2-2.0The [facility] HospitalComment on above:Performed By: #### CBC ####[facility] Imivaojxei[address] [place], [place] [address]Dr.Yilan ChangEO #0.1 103/ulNormal0.0-0.7The [facility] HospitalComment on above:Performed By: #### CBC ####[facility] Kranzzqdkx[address] [place], [place] [address]Dr.Sunil ChangEosinophils/100 WBC (Bld)1.0 %Normal 0.9-7.0The [facility] HospitalComment on above:Performed By: #### CBC ####[facility] Uxjinzatca[address] [place], [place] [address]Dr.Sunil Conner Erythrocyte distribution width (RBC) [Ratio]17.0 %Critically high11.0-15.0The [facility] HospitalComment on above:Performed By: #### CBC ####[facility] Sgezrmjjjf[address] [place], [place] [address]Dr.Sunil ChangHematocrit (Bld) [Volume fraction]37.5 %Hjbpov89.0-48.0The [facility] HospitalComment on above:Performed By: #### CBC ####[facility] Ohuatgkhmy[address] [place], [place] [address]Dr.Sunil ConnerHemoglobin (Bld) [Mass/Vol]12.3 g/dL Ijqiul50.0-16.0The [facility] HospitalComment on above:Performed By: #### CBC ####[facility] Zyuscvgjss[address] [place], [place] [address]Dr. Sunil ConnerIG #0.05 10e3/ulCritically high0.00-0.03The [facility] HospitalComment on above:Performed By: #### CBC ####[facility] Iigphomfai[address] [place], [place] [address]Dr.Sunil ConnerIG %0.5 %Normal0.0-0.5The [facility] HospitalComment on above:Performed By: #### CBC ####[facility] Ipbidadlrh[address] [place], [place] [address]Dr.Sunil ConnerLYMPH #2.8 103/ulNormal1.2-3.8The [facility] HospitalComment on above:Performed By: #### CBC ####[facility] Kufihwpggt[address] [place], [place] [address]Dr. Sunil ConnerLymphocytes/100 WBC (Bld)28.4 %Znfpzb39.5-60.0[facility] Comment on above:Performed By: #### CBC ####[facility] Lponebzvyp[address] [place], [place] [address]Dr.Sunil ConnerMANUAL DIFF REQNONormalThe [facility] HospitalComment on above:Performed By: #### CBC ####[facility] Khdfnqjxgw[address] [place], [place] [address]Dr.Sunil ConnerCATSKILL REGIONAL [facility] (RBC) [Entitic mass]28.5 pqJcswwf78.7-34.0The [facility] HospitalComment on above: Performed By: #### CBC ####[facility] Tsynxflkwm[address] [place], [place] [address]Dr.Sunil ConnerMCHC (RBC) [Mass/Vol]32.8 g/dLNormal 29.9-35.2The [facility] HospitalComment on above:Performed By: #### CBC ####[facility] Cswzgklcbo[address] [place], [place] [address]Dr. Sunil ConnerMCV (RBC) [Entitic vol]86.8 qQXjjdnl37.0-99.0[facility] Comment on above:Performed By: #### CBC ####[facility] Gcqblkpqeb55[address] [place], [place] [address]Dr.Sunil ConnerMONO #0.8 103/ulNormal0.3-0.8 The [facility] HospitalComment on above:Performed By: #### CBC ####[facility] Ileabwweqg[address] [place], [place] [address]Dr.Sunil Conner Monocytes/100 WBC (Bld)7.9 %Normal1.7-12.0The [facility] HospitalComment on above: Performed By: #### CBC ####[facility] Ukxofsknos[address] [place], [place] [address]Dr.Sunil ConnerNEUT #6.0 103/ulNormal1.4-6.5The [facility] HospitalComment on above:Performed By: #### CBC ####[facility] Evypciqwnf7[address] [place], [place] [address]Dr.Sunil ConnerNeutrophils/100 WBC (Bld)62.0 %Htbmna99.0-75.0The [facility] HospitalComment on above:Performed By: #### CBC ####[facility] Aqfjbmdvuk[address] [place], [place] [address]Dr.Sunil ConnerPlatelet mean volume (Bld) [Entitic vol]10.2 fLNormal9.5-13.5 The [facility] HospitalComment on above:Performed By: #### CBC ####[facility] Fvacgijiqu34[address] [place], [place] [address]Dr.Sunil TjiunAGN723 103/vdTxntkh903-485Onz [facility] HospitalComment on above:Performed By: #### CBC ####[facility] [address] [address]Dr. Sunil ConnerRBC4.32 106/ulNormal4.20-5.40The [facility] HospitalComment on above: Performed By: #### CBC ####[facility] Wlxbpsdzib[address] [place], [place] [address]Dr.Sunil ConnerWBC9.7 103/ulNormal4.0-11.0The [facility] HospitalComment on above:Performed By: #### CBC ####[facility] Ejkrbtcnkc[address] [place], [place] [address]Dr.Sunil ConnerDRUG SCREEN RAPID (URINE)on 15-04-1260CBCNofitprnBrriswWVJBIZZWCbd [facility] HospitalCom[facility] on above:Performed By: #### DRUGRPD ####[facility] Uqfviymeds[address] [place], [place] [address]Dr. Sunil ConnerBARNegativeNormalNEGATIVEMercy Health [facility] HospitalComment on above:Performed By: #### DRUGRPD ####[facility] Wfhepdlwjq[address] [place], [place] [address]Dr. Sunil ConnerBUP NegativeNormalNEGATIVEMercy Health Urbana HospitalComment on above:Performed By: #### DRUGRPD ####[facility] Kekhxcbllm[address] [place], [place] [address]Dr. Chelsiebriana ChangBZONegativeNormalNEGATIVEMercy Health Urbana HospitalComment on above:Performed By: #### DRUGRPD ####[facility] Qsammpyhap[address] [place], [place] [address]Dr. Chelsiebriana ChangCOCNegativeNormalNEGATIVEMercy Health Urbana HospitalComment on above:Performed By: #### DRUGRPD ####[facility] Drivhiydkq[address] [place], [place] [address]Dr. Sunil ConnerCUT-OFFSE Newark HospitalComment on above:Result Comment: AMP (Amphetamine): 500ng/mL, BAR (Barbituates): 200 ng/mL, BZO (Benzodiazepines): 15 0 ng/mL, BUP (Buprenorphine): 10 ng/mL, TAMICA (Cocaine): 150 ng/mL, mAMP (Methamphetamine): 500 ng/mL, MTD (Methadone): 200 ng/mL, OPI (Opiates): 100 ng/mL, OXY (Oxycodone): 100 ng/mL, PCP (Phencyclidine): 25 ng/mL, PPX (Propoxyphene): 300 ng/mL, THC (Cannabinoids): 50 ng/mL, TCA (Trycyclic Antidepressants): 300 ng/mLPerformed By: #### DRUGRPD ####[facility] Rdhhwkmozy[address] [place], [place] [address]Dr. Sunil ChangDRUG CUT HEADERDRUG CLASS TEST SYSTEM CUT-OFF CONCENTRATIONS ARE FOLLOWS:NormalThe [facility] HospitalComment on above:Performed By: #### DRUGRPD ####[facility] Lebmmqwqod[address] [place], [place] [address]Dr. Sunil ChangmAMP NegativeNormalNEGATIVEAvita Health System Ontario Hospital HospitalComment on above:Performed By: #### DRUGRPD ####[facility] Wpqaflkysa[address] [place], [place] [address]Dr. Yibriana ChangMTDNegativeNormalNEGATIVEAvita Health System [facility] Hospital HospitalComment on above:Performed By: #### DRUGRPD ####[facility] Ffpfybujgk[address] [place], [place] [address]Dr. Yilan ChangOPINegativeNormalNEGATIVEAvita Health System [facility] Hospital HospitalComment on above:Performed By: #### DRUGRPD ####[facility] Mtgohwuhxz[address] [place], [place] [address]Dr. Yilan ChangOXYNegative NormalNEGATIVEAvita Health System [facility] Hospital HospitalComment on above:Performed By: #### DRUGRPD ####[facility] Egkysgzqxc[address] [place], [place] [address]Dr. Yilan ChangPCPNegativeNormalNEGATIVEAvita Health System [facility] Hospital HospitalComment on above: Performed By: #### DRUGRPD ####[facility] Zgluahlllr[address] [place], [place] [address]Dr. Yilan ChangPPXNegativeNormalNEGATIVEAvita Health System [facility] Hospital HospitalComment on above:Performed By: #### DRUGRPD ####[facility] [address] [address]Dr. Chelsiebriana UbaldoTCANegative NormalNEGATIVEMercy Health Urbana HospitalComment on above:Performed By: #### DRUGRPD ####[facility] [address] [address]Dr. Sunil ConnerTHCNegativeNormalNEGATIVEMercy Health Urbana HospitalComment on above: Performed By: #### DRUGRPD ####[facility] [address] [address]Dr. Sunil ConnerTYPE AND SCREENon 04-46-6783GJDO AND SCREENNegativeAshtabula County Medical CenterComment on above:Performed By: #### TNS #### [facility] [address] [address] [address] Sunil Kong PREG BIOPHY W NON STRESSon [id number] PREG BIOPHY W NON STRESSEXAMINATION: US PREG [...] by: NADIA FORREST Date: 2021-07-13 10:55[facility] PREG GROWTHon [id number] PREG GROWTHEXAMINATION: US PREG GROWTH HISTORY: History [...] EFW: 6 lbs. 3 oz., 37% FL/AC: 0.476768 FL/BPD: 0.143176 HC/AC: 0.886387 GESTATIONAL AGE: Age by EDC: 36 weeks 4 days FAHEEM by EDC: 08/04/2021 Age by US: 35 weeks 3 days FAHEEM by US: 08/12/2021 IMPRESSION: Normal interval growth Electronically authenticated by: NADIA FORREST Date: 2021-07-11 10:28NoLima City HospitalCOVID Quick Testingon [id number] MusicSiren Other Quick Strepon 07-09-2021. pyogenes Org specific cx Ql (Throat)NegativeSaint Louis MusicSiren Other Qukdb StrepNovalere FP Other GROUP B STREP CULTUREon 07-06-2021. agalactiae Ag Ql (Unsp spec)Culture Observations: NEGATIVE FOR GROUP B STREPTOCOCCUS.NormalThe [facility] HospitalComment on above: Performed By: #### GBSCX #### [facility] [address] [place] [address] Dr. Sunil Kong PREG GROWTHon [id number] PREG GROWTHEXAMINATION: US PREG GROWTH HISTORY: History [...] EFW: 4 lbs. 14 oz., 53% FL/AC: 0.348811 FL/BPD: 0.352157 HC/AC: 1.326123 GESTATIONAL AGE: Age by EDC: 33 weeks 4 days FAHEEM by EDC: 08/04/2021 Age by US: 33 weeks 1 day FAHEEM by US: 08/07/2021 IMPRESSION: Normal interval growth Electronically authenticated by: NADIA FORREST Date: 2021-06-20 11:46NormalThe [facility] AUTO DIFFon [id number] #0.0 103/ulNormal0.0-0.1[facility] HospitalComment on above:Performed By: #### HIV12 #### [facility] [address] [place] [address] Andriy KarenBasophils/100 WBC (Bld)0.5 %Normal0.2-2.0[facility] Comment on above:Performed By: #### HIV12 #### [facility] [address] [place] [address] Andriy KarenEO #0.1 103/ulNormal0.0-0.7The [facility] HospitalComment on above: Performed By: #### HIV12 #### [facility] [address] [place] [address] Andriy KarenEosinophils/100 WBC (Bld)1.3 %Normal0.9-7.0[facility] Comment on above:Performed By: #### HIV12 #### [facility] [address] [place] [address] Andriy KarenErythrocyte distribution width (RBC) [Ratio]19.8 %Critically high 11.0-15.0The [facility] HospitalComment on above:Performed By: #### HIV12 #### [facility] [address] [place] [address] Andriy KarenHematocrit (Bld) [Volume fraction]34.9 %Critically low36.0-48.0The [facility] HospitalComment on above:Performed By: #### HIV12 #### [facility] [address] [place] [address] Andriy KarenHemoglobin (Bld) [Mass/Vol]11.1 g/dLCritically low12.0-16.0The [facility] HospitalComment on above:Performed By: #### HIV12 #### [facility] [address] [place] [address] Andriy KarenIG #0.04 10e3/ulCritically high0.00-0.03[facility] HospitalComment on above:Performed By: #### HIV12 #### [facility] [address] [place] [address] Andriy SegalG %0.5 %Normal0.0-0.5The [facility] HospitalComment on above: Performed By: #### HIV12 #### [facility] [address] [place] [address] Andriy SteinLYMPH #2.1 103/ulNormal1.2-3.8The [facility] HospitalComment on above: Performed By: #### HIV12 #### [facility] [address] [place] [address] Andriy SteinLymphocytes/100 WBC (Bld)24.8 %Pyxvcq91.5-60.0[facility] Comment on above:Performed By: #### HIV12 #### [facility] [address] [place] [address] Andriy RodgersenMANUAL DIFF REQNONormalThe [facility] HospitalComment on above: Performed By: #### HIV12 #### [facility] [address] [place] [address] Andriy KarenH (RBC) [Entitic mass]27.5 crTvnhxs73.7-34.0[facility] Comment on above:Performed By: #### HIV12 #### [facility] [address] [place] [address] Andriy KarenMCHC (RBC) [Mass/Vol]31.8 g/rCGscrkl15.9-35.2[facility] Comment on above:Performed By: #### HIV12 #### [facility] [address] [place] [address] Andriy KarenMCV (RBC) [Entitic vol]86.6 kMWbfwmy86.0-99.0[facility] Comment on above:Performed By: #### HIV12 #### [facility] [address] [place] [address] Andriy KarenMONO #0.7 103/ulNormal0.3-0.8The [facility] HospitalComment on above: Performed By: #### HIV12 #### [facility] [address] [place] [address] Andriy KarenMonocytes/100 WBC (Bld)8.7 %Normal1.7-12.0[facility] Comment on above:Performed By: #### HIV12 #### [facility] [address] [place] [address] Andriy RodgersenNEUT #5.4 103/ulNormal1.4-6.5The [facility] HospitalComment on above: Performed By: #### HIV12 #### [facility] [address] [place] [address] Andriy KarenNeutrophils/100 WBC (Bld)64.2 %Jtarlx72.0-75.0[facility] Comment on above:Performed By: #### HIV12 #### [facility] [address] [place] [address] Andriy KarenPlatelet mean volume (Bld) [Entitic vol]9.9 fLNormal9.5-13.5The [facility] HospitalComment on above:Performed By: #### HIV12 #### [facility] [address] [place] [address] Andriy GvgvaLAA307 103/wmWigslf136-524Cqm [facility] HospitalComment on above: Performed By: #### HIV12 #### [facility] [address] [place] [address] Andriy KarenRBC4.03 106/ulCritically low4.20-5.40The [facility] HospitalComment on above:Performed By: #### HIV12 #### [facility] [address] [place] [address] Andriy KarenWBC8.5 103/ulNormal4.0-11.0The [facility] HospitalComment on above: Performed By: #### HIV12 #### [facility] [address] [place] [address] Andriy RodgersenGTT 3 HR PREGon 52-48-0932Phofygv [Mass/Vol]85 mg/kWOtvowc06-686QegMercy Health Urbana HospitalComment on above:Performed By: #### GTT3P ####[facility] [address] [address]Dr. Chelsielan ChangGlucose [Mass/Vol]188 mg/dLNoLima City HospitalComment on above:Performed By: #### GTT3P ####[facility] [address] [address]Dr. Yilan ChangGlucose [Mass/Vol]133 mg/dLNoLima City Hospital Comment on above:Performed By: #### GTT3P ####[facility] [address] [address]Dr. Yilan ChangGlucose [Mass/Vol]122 mg/dL NormalMercy Health Urbana HospitalComment on above:Performed By: #### GTT3P ####[facility] [address]nvawqtd[address] [place], [place] [address]Dr. Sunil ConnerCBC AUTO DIFFon [id number] #0.0 103/ulNormal0.0-0.1[facility] HospitalComment on above:Performed By: #### CBC #### [facility] [address] [place] [address] Dr. Sunil ConnerBasophils/100 WBC (Bld)0.3 %Normal0.2-2.0[facility] Comment on above:Performed By: #### CBC #### [facility] [address] [place] [address] Dr. Sunil Gomez #0.1 103/ulNormal0.0-0.7The [facility] HospitalComment on above: Performed By: #### CBC #### [facility] [address] [place] [address] Dr. Sunil Copelandosinophils/100 WBC (Bld)1.2 %Normal0.9-7.0[facility] Comment on above:Performed By: #### CBC #### [facility] [address] [place] [address] Dr. Sunil Copelandrythrocyte distribution width (RBC) [Ratio]14.6 %Usgzeu22.0-15.0 [facility] Hospitalment on above:Performed By: #### CBC #### [facility] [address] [place] [address] Dr. Sunil ConnerHematocrit (Bld) [Volume fraction]31.6 %Critically low36.0-48.0 The [facility] HospitalComment on above:Performed By: #### CBC #### [facility] [address] [place] [address] Dr. Sunil ConnerHemoglobin (Bld) [Mass/Vol]9.9 g/dLCritically low12.0-16.0The [facility] Centerment on above:Performed By: #### CBC #### [facility] [address] [place] [address] Dr. Sunil Neumann #0.05 10e3/ulCritically high0.00-0.03The [facility] Comment on above:Performed By: #### CBC #### [facility] [address] [place] [address] Dr. Sunil Neumann %0.5 %Normal0.0-0.5The [facility] on above: Performed By: #### CBC #### [facility] [address] [place] [address] Dr. Sunil BarrientosH #2.4 103/ulNormal1.2-3.8The [facility] HospitalComment on above:Performed By: #### CBC #### [facility] [address] [place] [address] Dr. Snuil Cabreramphocytes/100 WBC (Bld)25.6 %Ecdczx61.5-60.0The [facility] Centerment on above:Performed By: #### CBC #### [facility] [address] [place] [address] Dr. Sunil AshrafUAL DIFF REQNONormalThe [facility] HospitalComment on above: Performed By: #### CBC #### [facility] [address] [place] [address] Dr. Sunil Ayala (RBC) [Entitic mass]25.8 pgCritically low26.7-34.0The [facility] HospitalComment on above:Performed By: #### CBC #### [facility] [address] [place] [address] Dr. Sunil Ayala (RBC) [Mass/Vol]31.3 g/gJIvsiaw09.9-35.2The [facility] HospitalComment on above:Performed By: #### CBC #### [facility] [address] [place] [address] Dr. Sunil Ayala (RBC) [Entitic vol]82.3 uJMutzza60.0-99.0The [facility] HospitalComment on above:Performed By: #### CBC #### [facility] [address] [place] [address] Dr. Sunil Chua #0.5 103/ulNormal0.3-0.8The [facility] HospitalComment on above:Performed By: #### CBC #### [facility] [address] [place] [address] Dr. Sunil Eastmanocytes/100 WBC (Bld)5.3 %Normal1.7-12.0The [facility] Comment on above:Performed By: #### CBC #### [facility] [address] [place] [address] Dr. Sunil Choi #6.4 103/ulNormal1.4-6.5The [facility] HospitalComment on above:Performed By: #### CBC #### [facility] [address] [place] [address] Dr. Sunil Loerautrophils/100 WBC (Bld)67.1 %Ekjrqq85.0-75.0The [facility] HospitalComment on above:Performed By: #### CBC #### [facility] [address] [place] [address] Dr. Sunil Parralet mean volume (Bld) [Entitic vol]10.3 fLNormal9.5-13.5The [facility] HospitalComment on above:Performed By: #### CBC #### [facility] [address] [place] [address] Dr. Sunil ConnerPLT255 103/orYxtuks571-137XjgMercy Health Urbana HospitalComment on above: Performed By: #### CBC #### [facility] [address] [place] [address] Dr. Sunil ConnerRBC3.84 106/ulCritically low4.20-5.40The [facility] HospitalComment on above:Performed By: #### CBC #### [facility] [address] [place] [address] Dr. Sunil ConnerWBC9.5 103/ulNormal4.0-11.0The [facility] HospitalComment on above: Performed By: #### CBC #### [facility] [address] [place] [address] Dr. Sunil ConnerGLUCOSE - 1HRon 61-81-7640Ybkeabr [Mass/Vol]171 mg/dLCritically npju35-135Pwm [facility] HospitalComment on above:Performed By: #### HIV12 #### [facility] [address] [place] [address] Andriy KarenVAGINITIS/VAGINOSIS DNA PROBEon 38-43-5951Mewrems speciesPositive AbnormalNegativeMercy Health Urbana HospitalComment on above:Performed By: #### VAGINT #### [facility] [address] [place] [address] Dr. Sunil Persauddnerella vaginalisNegativeNormalNegativeMercy Health Urbana Hospital Comment on above:Performed By: #### VAGINT #### [facility] [address] [place] [address] Dr. Sunil ConnerTrichomonas vaginalisNegativeNormalNegativeMercy Health Urbana Hospital Comment on above:Performed By: #### VAGINT #### [facility] [address] [place] [address] Dr. Sunil ConnerUS PREG ANATOMY SINGLEon 40-59-1558VJ PREG ANATOMY SINGLE EXAMINATION: US PREG ANATOMY [...] weeks 3 days EFW:12 ounces, 47%; FL/AC: 0.296077 FL/BPD: 0.761706 HC/AC: 1.558412 GESTATIONAL AGE: Age by EDC: 20 weeks 4 days FAHEEM by EDC: 08/04/2021 Age by current US: 20 weeks 2 days FAHEEM by current US: 08/06/2021 IMPRESSION: Normal anatomy scan *Reference: AIUM Practice Guideline for the performance of Obstetric Ultrasound Examinations, March 25, 2007. Electronically authenticated by: NADIA FORREST Date: 2021-03-21 16:13[facility] ACOG PANEL 3: 21 to 29on 02-21-2021..NormalMercy Health Urbana HospitalComment on above:Result Comment: Performed at: WBPerformed By: #### HIV12 #### [facility] [address] [address] Andriy Robbins Gdln ACOG Uqskfmi80-49PazyzkHwlLima City HospitalComment on above:Performed By: #### HIV12 #### [facility] [address] [id number] Andriy RodgersenChlamydia, Nuc. Acid AmpNegativeNormalNegativeMercy Health Urbana Hospital Comment on above:Result Comment: Performed at: =GPerformed By: #### HIV12 #### [facility] [address] [place] [address] KarenDIAGNOSIS:CommentAbProMedica Memorial Hospital on above: Result Comment: EPITHELIAL CELL ABNORMALITY. LOW-GRADE SQUAMOUS INTRAEPITHELIAL LESION (LSIL); MILD DYSPLASIA. Performed at: WBPerformed By: #### HIV12 #### [facility] [address] [place] [address] KarenElectronically signed by:CommentFisher-Titus Medical Center on above:Result Comment: Kenneth العلي MD, Pathologist Performed at: WBPerformed By: #### HIV12 #### [facility] [address] [place] [address] KarenGonococcus, Nuc. Acid AmpNegativeNormalNegativeMercy Health Urbana Hospital Comment on above:Result Comment: Performed at: =GPerformed By: #### HIV12 #### [facility] [address] [place] [address] KarenMethodology:CommentNoZanesville City Hospital on above: Result Comment: This liquid based ThinPrep(R) pap test was screened with the use of an image guided system. Performed at: WBPerformed By: #### HIV12 #### [facility] [address] [place] [address] KarenNote:CommentFisher-Titus Medical Center on above:Result Comment: The Pap smear is a screening test designed to aid in the detection of premalignant and malignant conditions of the uterine cervix. It is not a diagnostic procedure and should not be used as the sole means of detecting cervical cancer. Both false-positive and false-negative reports do occur. . Performed at: WBPerformed By: #### HIV12 #### [facility] [address] [place] [address] KarenPathologist Provided FED98TenqtruAajlajXcrZanesville City Hospital on above:Result Comment: [id number] Performed at: WBPerformed By: #### HIV12 #### [facility] [address] [place] [address] KarenPerformed by:CommentFisher-Titus Medical Center on above: Result Comment: Lilly Partida, Executive Search Consultant (ASCP) Performed at: WBPerformed By: #### HIV12 #### [facility] [address] [address] Andriy KarenRecommendation:CommentAbProMedica Memorial Hospital on above: Result Comment: Suggest follow up as clinically appropriate. Performed at: WBPerformed By: #### HIV12 #### [facility] [address] [address] Andriy KarenReflex Criteria:CommentFisher-Titus Medical Center on above: Result Comment: The HPV DNA reflex criteria were not met with this specimen result therefore, no HPV testing was performed. . Performed at: WBPerformed By: #### HIV12 #### [facility] [address] [place] [address] Andriy KarenSpecimen adequacy:[facility] on above:Result Comment: Satisfactory for evaluation. Endocervical and/or squamous metaplastic cells (endocervical component) are present. Performed at: WBPerformed By: #### HIV12 #### [facility] [address] [place] [address] Andriy KarenAFP MATERNAL FOR SPINA BIFIDAon 96-61-7589VHG MoM1.15NormalMercy Health Urbana HospitalComchildren's hospital of [place] on above:Performed By: #### HIV12 #### [facility] [address] [address] Andriy KarenAFP Value35.0 ng/mLNormalMercy Health Urbana HospitalComchildren's hospital of [place] on above: Performed By: #### HIV12 #### [facility] [address] [address] Andriy KarenAFP, Serum for Spina BifidaReportNoLima City HospitalComchildren's hospital of [place] on above:Performed By: #### HIV12 #### [facility] [address] [place] [address] Andriy KarenCommentCommentFisher-Titus Medical Center on above:Result Comment: Eve Perez, Ph.D., [facility] Director . References: Available Upon Request. . Multiples Of Median Cutoffs For AFP Elevations Beebe 2.5 Black 2.8 IDD 2.0 Twins 4.5 Abbreviation Definitions IDD - Insulin Dep Diabetes OSBR - Open Spina Bifida Risk . For further inquiries contact [facility] at [phone].Performed By: #### HIV12 #### [facility] [address] [place] [address] Andriylogan RodgersenGest Age Collection Date16.0 weeksAshtabula County Medical CenterComment on above:Performed By: #### HIV12 #### [facility] [address] [place] [address] Andriy KarenGestat, Age Based onUltrasoundAshtabula County Medical CenterComment on above:Result Comment: 16.0 on 02/17/2021 Recalculations are not recommended when gestational dating by LMP and ultrasound are within 10 days.Performed By: #### HIV12 #### [facility] [address] [place] [address] Andriy KarenInsulin Dep DiabetesNoNormalMercy Health Urbana HospitalComment on above: Performed By: #### HIV12 #### [facility] [address] [place] [address] Andriy KarenInterpretationNewark HospitalComment on above: Result Comment: Interpretation: Screen [...] to discuss available options. The [employer] [place] [employer] recommends amniocentesis be offered to women age 35 and older.Performed By: #### HIV12 #### [facility] [address] [place] [address] Andriy KarenMaternal Age at EDD30.0 yrAshtabula County Medical CenterComment on above:Performed By: #### HIV12 #### [facility] [address] [address] Andriy KarenMultiple GestationNoNParkview HealthComment on above: Performed By: #### HIV12 #### [facility] [address] [address] Andriy KarenOSBR Risk 1 [id number] City HospitalComment on above: Performed By: #### HIV12 #### [facility] [address] [address] Andriy KarenPDF.NormalMercy Health Urbana HospitalComment on above:Performed By: #### HIV12 #### [facility] [address] [address] Andriy KarenRaceCaucasianNParkview HealthComment on above:Performed By: #### HIV12 #### [facility] [address] [address] Andriy VishalenTest Results:NegativeNoLima City HospitalComment on above: Performed By: #### HIV12 #### [facility] [address] [address] Andriy KarenHEMOGLOBINOPATHY FRACTIONATION CASCADEon 57-61-8356QRK A97.3 %Normal 96.4-98.8The University Hospitals Parma Medical Centerment on above:Performed By: #### HGBCAS ####[facility] [address] [address]Gerken KarenHGB A22.7 %Normal1.8-3.2The [facility] HospitalComment on above:Performed By: #### HGBCAS ####[facility] [address] [id number] KarenHGB F0.0 %Normal0.0-2.0The [facility] HospitalComment on above: Performed By: #### HGBCAS ####[facility] [address] [address]Gerken KarenHGB S0.0 %Normal0.0The [facility] on above:Performed By: #### HGBCAS ####[facility] [address] KarenInterpretation:CommentNormalThe [facility] on above:Result Comment: Normal hemoglobin present; no hemoglobin variant or thalassemia observed.Performed By: #### HGBCAS ####[facility] [address] KarenVARICELLA IGG ABon 02-07-2021 Varicella Zoster EuK084 indexNormalImmune >165The [facility] on above:Result Comment: Negative <135 Equivocal 135 - 165 Positive >165 A positive result generally indicates exposure to the pathogen or administration of specific immunoglobulins, but it is not indication of active infection or stage of disease.Performed By: #### VARCEL ####[facility] [address] [place] [address] KarenHEP B SURFACE ANTIGEN SCREENon 85-24-5295ECxAa ScreenNegativeNormalNegativeThe [facility] on above:Performed By: #### HBSANS #### [facility] [address] [place] [address] Andriy KarenHEPATITIS C ANTIBODYon 75-17-9958Nkq C Virus Ab<0.7Gsqhdp0.0-0.9The [facility] on above:Result Comment: Negative: < 0.8 Indeterminate: 0.8 - 0.9 Positive: > 0.9 . The CDC recommends that a positive HCV antibody result be followed up with a HCV Nucleic Acid Amplification test (751914).Performed By: #### HCV ####[facility] [address] [place] [address] KarenHIV 1 AND 2 WITH REFLEXon 02-06-2021 HIV Screen 4th Generation wRfxNon-ReactiveNormalNon ReactiveThe [facility] on above:Performed By: #### HIV12 #### [facility] [address] [place] [address] Andriy KarenRPR QUANTon 25-54-5031Ztzmx Plasma Reagin, QuantNon-ReactiveNormal NonRea<1:1The [facility] HospitalComment on above:Performed By: #### HIV12 #### [facility] [address] [place] [address] Andriy KarenRUBELLA AB IGGon 35-30-0701Pxrjoji Antibodies, IgG1.72 indexNormal Immune >0.99The [facility] HospitalComment on above:Result Comment: Non-immune <0.90 Equivocal 0.90 - 0.99 Immune >0.99Performed By: #### HIV12 #### [facility] [address] [place] [address] Andriy KarenCBC AUTO DIFFon 52-96-9458VGAK #0.0 103/ulNormal0.0-0.1The [facility] HospitalComment on above:Performed By: #### HBSANS #### [facility] [address] [place] [address] Andriy KarenBasophils/100 WBC (Bld)0.3 %Normal0.2-2.0The [facility] Comment on above:Performed By: #### HBSANS #### [facility] [address] [place] [address] Andriy KarenEO #0.2 103/ulNormal0.0-0.7The [facility] HospitalComment on above: Performed By: #### HBSANS #### [facility] [address] [place] [address] Andriy KarenEosinophils/100 WBC (Bld)1.7 %Normal0.9-7.0The [facility] Comment on above:Performed By: #### HBSANS #### [facility] [address] [place] [address] Andriy KarenErythrocyte distribution width (RBC) [Ratio]14.0 %Dwocdr85.0-15.0The [facility] HospitalComment on above:Performed By: #### HBSANS #### [facility] [address] [place] [address] Andriy KarenHematocrit (Bld) [Volume fraction]34.3 %Critically low36.0-48.0The [facility] HospitalComment on above:Performed By: #### HBSANS #### [facility] [address] [place] [address] Andriy KarenHemoglobin (Bld) [Mass/Vol]11.0 g/dLCritically low12.0-16.0The [facility] HospitalComment on above:Performed By: #### HBSANS #### [facility] [address] [place] [address] Andriy KarenIG #0.02 10e3/ulNormal0.00-0.03The [facility] HospitalComment on above:Performed By: #### HBSANS #### [facility] [address] [place] [address] Andriy KarenIG %0.2 %Normal0.0-0.5The [facility] HospitalComment on above: Performed By: #### HBSANS #### [facility] [address] [place] [address] Andriy KarenLYMPH #3.4 103/ulNormal1.2-3.8The [facility] HospitalComment on above: Performed By: #### HBSANS #### [facility] [address] [place] [address] Andriy KarenLymphocytes/100 WBC (Bld)38.7 %Agtjjo30.5-60.0The [facility] Comment on above:Performed By: #### HBSANS #### [facility] [address] [place] [address] Andriy KarenMANUAL DIFF REQNONormalThe [facility] HospitalComment on above: Performed By: #### HBSANS #### [facility] [address] [place] [address] Andriy KarenMCH (RBC) [Entitic mass]27.2 eeXdfikm38.7-34.0The [facility] Comment on above:Performed By: #### HBSANS #### [facility] [address] [place] [address] Andriy KarenMCHC (RBC) [Mass/Vol]32.1 g/uVYnpvwl49.9-35.2The [facility] Comment on above:Performed By: #### HBSANS #### [facility] [address] [place] [address] Andriy KarenMCV (RBC) [Entitic vol]84.9 rGFaieqr66.0-99.0The [facility] Comment on above:Performed By: #### JAMESANS #### [facility] [address] [place] [address] Andriy KarenMONO #0.7 103/ulNormal0.3-0.8The [facility] HospitalComment on above: Performed By: #### JAMESANS #### [facility] [address] [place] [address] Andriy KarenMonocytes/100 WBC (Bld)8.3 %Normal1.7-12.0The [facility] Comment on above:Performed By: #### TRIPP #### [facility] [address] [place] [address] Andriy KarenNEUT #4.4 103/ulNormal1.4-6.5The [facility] HospitalComment on above: Performed By: #### JAMESANS #### [facility] [address] [place] [address] Andriy KarenNeutrophils/100 WBC (Bld)50.8 %Nqwvsz90.0-75.0The [facility] Comment on above:Performed By: #### TRIPP #### [facility] [address] [place] [address] Andriy KarenPlatelet mean volume (Bld) [Entitic vol]9.8 fLNormal9.5-13.5The [facility] HospitalComment on above:Performed By: #### JAMESANS #### [facility] [address] [place] [address] Andriy TktjhXVR726 103/gjInetlh329-230Lhy [facility] HospitalComment on above: Performed By: #### HBSANS #### [facility] [address] [place] [address] Andriy KarenRBC4.04 106/ulCritically low4.20-5.40The [facility] HospitalComment on above:Performed By: #### HBSANS #### [facility] [address] [address] Andriy KarenWBC8.7 103/ulNormal4.0-11.0The [facility] HospitalComment on above: Performed By: #### HBSANS #### [facility] [address] [address] Andriy KarenGLYCOHEMOGLOBIN A1Con 55-47-5755GDO RECOMMENDATIONADA THERAPEUTIC TARGET 6.0 - 7.0 ACTION SUGGESTED > 7.0NoLima City HospitalComment on above:Performed By: #### A1C ####[facility] [address] [address]Gerken KarenGlucose [Mass/Vol]111 mg/dLAshtabula County Medical CenterComment on above:Performed By: #### A1C ####[facility] [address] [address]Gerken VnekkGjV3z (Bld) [Mass fraction]5.5 %Normal<=6.0The [facility] HospitalComment on above:Performed By: #### A1C ####[facility] [address] [address]Gerken KarenGTT 3 HR PREGon 25-68-8919Utjvcvs [Mass/Vol]79 mg/dLNormal 74-106The [facility] HospitalComment on above:Performed By: #### HBSANS #### [facility] [address] [address] Andriy KarenGlucose [Mass/Vol]117 mg/dLNoLima City HospitalComment on above:Performed By: #### HBSANS #### [facility] [address] [address] Andriy KarenGlucose [Mass/Vol]93 mg/dLAshtabula County Medical CenterComment on above:Performed By: #### HBSANS #### [facility] [address] [address] Andriy KarenGlucose [Mass/Vol]46 mg/dLCritically lowThe [facility] HospitalComment on above:Performed By: #### HBSANS #### [facility] [address] [address] Andriy KarenTYPE AND SCREENon 52-64-3063BFFX AND SCREENAntibody Screen NEGATIVE Blood Bank Notes completed by [email or web address] ABO Rh Typing A Rh Positive Blood Bank Notes completed by [facility] Hospitalment on above:Performed By: #### TNS #### [facility] [address] [address] Andriy KarenCULTURE URINEon 19-94-1517EVCXIZJ URINECulture Observations: MODERATE GROWTH OF MIXED GENITAL HUBER. NO POTENTIAL PATHOGENS SEEN.NormalMercy Health Urbana HospitalComment on above:Performed By: #### URCX ####[facility] [address] [address]Gerken KarenUA RANDOM W/MICROSCOPICon 77-71-0322JOIABPXRVVHLOUehgeahkFKKP SEENMercy Health Urbana Hospital Comment on above:Performed By: #### HBSANS #### [facility] [address] [address] Andriy KarenBilirubin Ql (U)NegativeNormalNEGATIVEMercy Health Urbana HospitalComchildren's hospital of [place] on above:Performed By: #### HBSANS #### [facility] [address] [place] [address] Andriy KarenCASTNONE SEENNormalNONE SEENOhioHealth Dublin Methodist Hospital on above: Performed By: #### HBSANS #### [facility] [address] [address] Andriy KarenClarity (U)CLEARNormalCLEARProMedica Bay Park Hospitalment on above: Performed By: #### HBSANS #### [facility] [address] [address] Andriy KarenColor (U)YELLOWNormalYELLOWMercy Health Urbana HospitalComment on above: Performed By: #### HBSANS #### [facility] [address] [place] [address] Andriy KarenCrystals LM Nom (Urine sed)NONE SEENNormalNONE SEENMercy Health Urbana HospitalComment on above:Performed By: #### HBSANS #### [facility] [address] [place] [address] Andriy KarenEpithelial cells LM Ql (Urine sed)FEWAbnormalNONE SEEN /RAREThe [facility] HospitalComment on above:Performed By: #### JAMESANS #### [facility] [address] [place] [address] Andriy KarenGlucose Ql (U)NegativeNormalNEGATIVEMercy Health Urbana HospitalComment on above:Performed By: #### HBSANS #### [facility] [address] [place] [address] Andriy KarenHemoglobin Ql (U)NegativeNormalNEGATIVEMercy Health Urbana HospitalComment on above:Performed By: #### HBSANS #### [facility] [address] [place] [address] Andriy KarenKetones Ql (U)TRACEAbnormalNEGATIVEMercy Health Urbana HospitalComment on above:Performed By: #### HBSANS #### [facility] [address] [place] [address] Andriy KarenLEUKOCYTESNegativeNormalNEGATIVEMercy Health Urbana HospitalComchildren's hospital of [place] on above:Performed By: #### HBSANS #### [facility] [address] [place] [address] Andriy KarenMUCOUSSMALLAbnormalNONE SEENOhioHealth Dublin Methodist Hospital on above: Performed By: #### HBSANS #### [facility] [address] [place] [address] Andriy KarenNitrite Ql (U)NegativeNormalNEGATIVEMercy Health Urbana HospitalComment on above:Performed By: #### HBSANS #### [facility] [address] [place] [address] Andriy KarenpH (U)7.0 [pH]Normal5-9[facility] on above: Performed By: #### HBSANS #### [facility] [address] [place] [address] Andriy LfhhwGXO5-1Yltwkl8-9Tkr [facility] HospitalComment on above:Performed By: #### HBSANS #### [facility] [address] [place] [address] Andriy HaqPEC GRAVITY1.967Dcaoej4.005-<=1.025The [facility] HospitalComment on above:Performed By: #### HBSANS #### [facility] [address] [place] [address] Andriy SteinUA PROTEINNegativeNormalNEGATIVE/ TRACEThe [facility] HospitalComment on above:Performed By: #### HBSANS #### [facility] [address] [place] [address] Andriy KarenUrobilinogen Qn (U)0.2 {Juanito'U}/dLNormal0.2 - 1.0The [facility] HospitalComment on above:Performed By: #### HBSANS #### [facility] [address] [place] [address] Andriy KarenWBCNONE SEENNormalNONE SEENThe [facility] HospitalComment on above: Performed By: #### HBSANS #### [facility] [address] [place] [address] Andriy KarenBUNon 44-69-9302Lyed nitrogen [Mass/Vol]5.0 mg/dLCritically low 7.0-17.0The [facility] HospitalComment on above:Performed By: #### TSH, LDH, BUN, URIC, ALT, AST ####[facility] [address] [address]Ger[address] KarenCBC AUTO DIFFon 23-76-5330KIRB #0.0 103/ulNormal0.0-0.1The [facility] HospitalComment on above:Performed By: #### CBC #### [facility] [address] [place] [address] Andriy KarenBasophils/100 WBC (Bld)0.4 %Normal0.2-2.0The [facility] Comment on above:Performed By: #### CBC #### [facility] [address] [place] [address] Andriy KarenEO #0.1 103/ulNormal0.0-0.7The [facility] HospitalComment on above: Performed By: #### CBC #### [facility] [address] [address] Andriy KarenEosinophils/100 WBC (Bld)1.1 %Normal0.9-7.0The [facility] Comment on above:Performed By: #### CBC #### [facility] [address] [place] [address] Andriy KarenErythrocyte distribution width (RBC) [Ratio]14.6 %Ecyjai38.0-15.0The [facility] HospitalComment on above:Performed By: #### CBC #### [facility] [address] [place] [address] Andriy KarenHematocrit (Bld) [Volume fraction]34.7 %Critically low36.0-48.0The [facility] HospitalComment on above:Performed By: #### CBC #### [facility] [address] [place] [address] Andriy KarenHemoglobin (Bld) [Mass/Vol]11.1 g/dLCritically low12.0-16.0The [facility] HospitalComment on above:Performed By: #### CBC #### [facility] [address] [place] [address] Adnriy KarenIG #0.04 10e3/ulCritically high0.00-0.03The [facility] HospitalComment on above:Performed By: #### CBC #### [facility] [address] [place] [address] Andriy KarenIG %0.5 %Normal0.0-0.5The [facility] HospitalComment on above: Performed By: #### CBC #### [facility] [address] [place] [address] Andriy KarenLYMPH #2.1 103/ulNormal1.2-3.8The [facility] HospitalComment on above: Performed By: #### CBC #### [facility] [address] [place] [address] Andriy KarenLymphocytes/100 WBC (Bld)25.5 %Dlosqh72.5-60.0The [facility] Comment on above:Performed By: #### CBC #### [facility] [address] [place] [address] Andriy KarenMANUAL DIFF REQNONormalThe [facility] HospitalComment on above: Performed By: #### CBC #### [facility] [address] [place] [address] Andriy KarenMCH (RBC) [Entitic mass]27.2 dtDgzlqc29.7-34.0[facility] Comment on above:Performed By: #### CBC #### [facility] [address] [place] [address] Andriy KarenMCHC (RBC) [Mass/Vol]32.0 g/iRXkwjfq41.9-35.2[facility] Comment on above:Performed By: #### CBC #### [facility] [address] [place] [address] Andriy KarenMCV (RBC) [Entitic vol]85.0 vPRcweel47.0-99.0[facility] Comment on above:Performed By: #### CBC #### [facility] [address] [place] [address] Andriy KarenMONO #0.6 103/ulNormal0.3-0.8The [facility] HospitalComment on above: Performed By: #### CBC #### [facility] [address] [place] [address] Andriy KarenMonocytes/100 WBC (Bld)7.1 %Normal1.7-12.0[facility] Comment on above:Performed By: #### CBC #### [facility] [address] [place] [address] Andriy KarenNEUT #5.3 103/ulNormal1.4-6.5The [facility] HospitalComment on above: Performed By: #### CBC #### [facility] [address] [place] [address] Andriy KarenNeutrophils/100 WBC (Bld)65.4 %Qjxxay30.0-75.0[facility] Comment on above:Performed By: #### CBC #### [facility] [address] [place] [address] Andriy KarenPlatelet mean volume (Bld) [Entitic vol]9.5 fLNormal9.5-13.5The [facility] HospitalComment on above:Performed By: #### CBC #### [facility] [address] [place] [address] Andriy JpmvxZAW146 103/lxUiwabj015-313Pcp [facility] HospitalComment on above: Performed By: #### CBC #### [facility] [address] [place] [address] Andriy KarenRBC4.08 106/ulCritically low4.20-5.40The [facility] Centerment on above:Performed By: #### CBC #### [facility] [address] [place] [address] Andriy KarenWBC8.1 103/ulNormal4.0-11.0The [facility] HospitalComment on above: Performed By: #### CBC #### [facility] [address] [place] [address] Andriy KarenCREATININE CLEARon 70-03-2290BETL NLBDGBXFH78.46 ml/minCritically low75.00-115.00The [facility] on above:Performed By: #### HIV12 #### [facility] [address] [place] [address] Andriy KarenCREA, 24 HR UR579.12 mg/24 hrCritically eek974.00-1,800.00The [facility] Centerment on above:Performed By: #### HIV12 #### [facility] [address] [place] [address] Andriy KarenCreatinine [Mass/Vol]0.53 mg/dLNormal0.52-1.04The [facility] on above:Performed By: #### HIV12 #### [facility] [address] [place] [address] Andriy KarenURINE CREAT30.48 mg/hYLhdgpp70.00-300.00The [facility] on above:Performed By: #### HIV12 #### [facility] [address] [place], [place] [address] Andriy RodgersenGLUCOSE - 1HRon 18-91-0959Cakjvlt [Mass/Vol]150 mg/dLCritically high 74-106The [facility] on above:Performed By: #### GLU1HR ####[facility] [address] [place] [address]Gerken KarenLDHon 90-55-5927RDI101 U/KLrspbd381-873Mrj [facility] HospitalCom[facility] on above:Performed By: #### TSH, LDH, BUN, URIC, ALT, AST ####[facility] [address] [place] [address]Gerken KarenPROTEIN 24HR URINEon 01-26-2021T PROT, 24 HR UR32.3 mg/24 hrCritically low42.0-225.0The [facility] on above:Performed By: #### [id number] ####[facility] [address] [place] [address]Gerken KarenUR PROT 1.7 mg/dLNormal<=12.0The [facility] on above:Performed By: #### NCKQ28G ####[facility] Aldmgpvimp[address] KarenUR TOT TGK9762 ml/24 HRNormalThe [facility] on above:Performed By: #### XPJJ36U ####[facility] U[address]ujjfef[address]56 [address]ken KarenPerformed By: #### HIV12 #### [facility] [address] [place], [place] [address] Andriy HaqGOTon 35-33-6768EVT [Catalytic activity/Vol]17 U/LMytrlm00-93Wqd [facility] on above:Performed By: #### TSH, LDH, BUN, URIC, ALT, AST ####[facility] [address] [place] [address]Gerken KarenSGPTon 80-57-5274GUC [Catalytic activity/Vol]16 U/LNormal9-52 [facility] HospitalComment on above:Performed By: #### TSH, LDH, BUN, URIC, ALT, AST ####[facility] Mmsw[address]xef[address] ToroHon 59-32-5445XPN7.220 uIU/mLCritically low0.470-4.680The [facility] HospitalComment on above:Performed By: #### TSH, LDH, BUN, URIC, ALT, AST ####[facility] Zxqaabifqh[address] RANGESEE BELOWNoLima City HospitalComment on above: Result Comment: <0.34 UIU/ml HYPERTHYROID 0.34-5.60 UIU/ml EUTHYROID >5.60 UIU/ml HYPOTHYROIDPerformed By: #### TSH, LDH, BUN, URIC, ALT, AST ####[facility] [address] [place] [address] KarenURIC ACID SERUMon 30-82-4482Izwvv [Mass/Vol]3.6 mg/dLNormal2.5-6.2The [facility] HospitalComment on above:Performed By: #### TSH, LDH, BUN, URIC, ALT, AST ####[facility] Y[address]gsmm[address] KarenUS PREG TVon 63-82-5550XR PREG TVEXAMINATION: US PREG TV HISTORY: Secondary [...] Electronically authenticated by: ANGELO BLANKENSHIP Date: 2021-01-24 10:12NoLima City HospitalABO AND RH TYPEon 14-82-6800FOW and Rh group Nom (Bld)ABO Rh Typing A Rh PositiveAshtabula County Medical CenterComment on above:Performed By: #### ABORH ####[facility] [address] [place], [place] [address]Mzfije KarenPREG QUANT HCGon 86-11-3194KJC UWPFZ17178 mIU/mLNormalMercy Health Urbana HospitalComment on above:Result Comment: Previously reported as: 3 On 01/19/2021 11:21 By UL5Ceanwmjwv By: #### HIV12 #### [facility] [address] [place], [place] [address] Andriy RodgersenHCG RANGESEE BELOWAshtabula County Medical CenterComment on above:Result Comment: 5-50 0-1 WEEK 40-300 1-2 WEEKS 100-1,000 2-3 WEEKS 500-6,000 3-4 WEEKS 5,000-200,000 1-2 MONTHS 10,000-100,000 2-3 MONTHS 3,000-50,000 2ND TRIMESTER 1,000-50,000 3RD TRIMESTERPerformed By: #### HIV12 #### [facility] [address] [place], [place] [address] Andriy Stein Vital Signs Date TimeVital SignValuePerforming ZrwhnanpuPbadvbvb09-70-9093 14:09-0400Body mass index (BMI) [Ratio]34.46 kg/m2Deborah RUBIN Work Phone: [facility] LouisUrdsvdvcrn18-59-7428 14:09-0400Body xauybs11.06 kgDeborah RUBIN Work Phone: [facility] LouisTvsgdyevjs15-17-3635 14:09-0400Diastolic blood mm[Hg]Deborah RUBIN Work Phone: [facility] LouisHrmnxjtlha46-94-3462 14:09-0400Systolic blood mm[Hg]Deborah RUBIN Work Phone: [facility] LouisJpzdnettvr47-19-8103 11:06-0400Body mass index (BMI) [Ratio]34.47 kg/h6Xeftj Jenny DO Work Phone: [phone] [place], [place] [address]Lwxizvukbd87-10-8967 11:06-0400Body rtoogm78.08 kgCorey Jenny DO Work Phone: [phone])107-[address] [place], [place] [address]Ndsjfewgrj20-33-0528 11:06-0400Diastolic blood pqsyulkp59 mm[Hg]Scooby Jenny DO Work Phone: [phone] [place], [place] [address]Wqwoobfejn87-57-3002 11:06-0400Systolic blood pswxxrop240 mm[Hg]Scooby Jenny DO Work Phone: 1(580)996-[address] [place], [place] [address]Zazayutbiv91-65-0501 13:35-0400Body mass index (BMI) [Ratio]33.77 kg/m2Deborah Kwan PA Work Phone: [phone] [place], [place] [address]Qizybkmaxs83-77-5234 13:35-0400Body mpemnx23.25 kgAmy Aquiles PA Work Phone: [phone])282-[address] [place], [place] [address]Sibznoznop49-94-4924 13:35-0400Diastolic blood ovfungac09 mm[Hg]Deborah Kwan PA Work Phone: [phone] [place], [place] [address]Wqsnyncaxc56-47-3541 13:35-0400Systolic blood iperxysr512 mm[Hg]Deborah Kwan PA Work Phone: [phone] [place], [place] [address]Hgdhjwqeqg22-12-7823 11:04-0400Body mass index (BMI) [Ratio]33.77 kg/b0VmmagomrJem Ambrosio [employer] Work Phone: [phone] [place], [place] [address]Swblrzxknu75-00-0048 11:04-0400Body .25 kgJem Ambrosio [employer] Work Phone: 1(275)[facility] [place], [place] [address]Fkbnqithtt86-94-4996 11:04-0400Diastolic blood cliddbeq70 mm[Hg]Jem Ambrosio [employer] Work Phone: 1(017)[facility] [place], [place] [address]Fmyhsaibhd52-70-3353 11:04-0400Systolic blood sweuhgxs209 mm[Hg]Jem Ambrosio [employer] Work Phone: [phone] [place], [place] [address]Fyrmoptozm18-15-6791 13:25-0400Body mass index (BMI) [Ratio]33.44 kg/m2Deborah Kwan PA Work Phone: [facility] LouisQbnutvkjjq11-10-4315 13:25-0400Body wgycpc76.36 kgDeborah Kwan PA Work Phone: [facility] LouisRaxwqensrm65-06-2603 13:25-0400Diastolic blood ddjoslxn67 mm[Hg]Deborah Kwan PA Work Phone: [facility] LouisYkeajksfwm04-69-0351 13:25-0400Systolic blood rliomxej009 mm[Hg]Deborah Kwan PA Work Phone: 1([phone] [place], [place] [address]Uhcqfqqyho38-28-7057 15:09-0400Body mass index (BMI) [Ratio]33.3 kg/m2Deborah Kwan PA Work Phone: [phone] LouisLrvsftqtai11-44-6299 15:09-0400Body eumrev04 kg Deborah Kwan PA Work Phone: [facility] LouisBssuvynhtg91-47-0794 15:09-0400Diastolic blood nczoqwpx22 mm[Hg]Deborah Kwan PA Work Phone: 1(550)300-[address] [place], [place] [address]Zdvrklloaj17-29-2843 15:09-0400Systolic blood gyelwqkd210 mm[Hg]Deborah Kwan PA Work Phone: 1(777)894-[address] [place], [place] [address]Eghyeewleq93-70-5850 15:03-0400Body mass index (BMI) [Ratio]33 kg/h9Huqgw Jenny DO Work Phone: [facility] LouisWiwkdrjmbe82-51-9796 15:03-0400Body ffhfum60.2 kg Scooby Jenny DO Work Phone: 1(283)235-[address] [place], [place] [address]Rechgaduxr66-67-4547 15:03-0400Diastolic blood qiyzvebr80 mm[Hg]Scooby Jenny DO Work Phone: [phone] [place], [place] [address]Extkwmvwol00-41-2634 15:03-0400Systolic blood fsrmgosv887 mm[Hg]Scooby Jenny DO Work Phone: [facility] LouisCfwyfknjlx60-72-5370 13:37-0400Body mass index (BMI) [Ratio]32.79 kg/m2Amy Willis PA Work Phone: [facility] LouisRyqipxesbg09-74-2291 13:37-0400Body kulmcr05.64 kgDeborah Aquiles RUBIN Work Phone: [phone])217-[address] [place], [place] [address]Ufggnnahyk48-94-8120 13:37-0400Diastolic blood cwyksfsb16 mm[Hg]Deborah Aquiles RUBIN Work Phone: 1(501)079-[address] [place], [place] [address]Nmxhgrwbaq95-14-4584 13:37-0400Systolic blood adbmjinz441 mm[Hg]Deborah Aquiles PA Work Phone: 1(834)605-[address] [place], [place] [address]Gyyhbbczqt51-58-2631 10:26-0400Body mlxexn886.6 cmCorey Jenny DO Work Phone: [phone])735-[address] [place], [place] [address]Vxujllxzqm16-61-5882 10:25-0400Body mass index (BMI) [Ratio]32.27 kg/o7Pfoxw Jenny DO Work Phone: [phone])468-[address] [place], [place] [address]Yjpybmgbmo11-55-6341 10:25-0400Body cqjlix35.28 kgCorey Jenny DO Work Phone: [phone])246-[address] [place], [place] [address]Ixsbejeevj39-87-4493 10:25-0400Diastolic blood anglcwup59 mm[Hg]Scooby Jenny DO Work Phone: 1(313)558-[address] [place], [place] [address]Wljymexplv28-49-4794 10:25-0400Systolic blood rtncjhto875 mm[Hg]Scooby Jenny DO Work Phone: 1(915)159-[address] [place], [place] [address]Ppzcjmhwpk42-51-0032 15:59-0400Body mass index (BMI) [Ratio]34.57 kg/r3HkcdkxOma Davis RN Work Phone: 1(731)202-[address] [place], [place] [address]206-02-2025 15:59-0400Body stvepf44.73 kgOma Davis RN Work Phone: 1(474)635-[address] [place], [place] [address]05-22-2025 10:57-0400Body rmdoyq87.09 kgCorey Jenny DO Work Phone: 1(544)599-[address] [place], [place] [address]Mlbgpakets21-89-1221 10:57-0400Diastolic blood fjlfcezu81 mm[Hg]Scooby Jenny DO Work Phone: 1(477)375-[address] [place], [place] [address]Rhosebaexs52-61-7302 10:57-0400Systolic blood ejeqzfck825 mm[Hg]Scooby Alvarado DO Work Phone: [facility] LouisAwcouyzttj22-71-4836 14:37-0400Body ccfgut64.84 kg[facility]04-24-2025 14:37-0400Diastolic blood vicmsjnf04 mm[Hg][facility]04-24-2025 14:37-0400Systolic blood mm[Hg][facility]01-15-2022 13:35-0500Body sgwalvfhhoq31.4 [degF] Renita MyCarGossiphyun Other [employer] Other 01-15-2022 13:35-9914DeW4% (BldA) [Mass fraction]98 % Renita Ginty Other [facility] Other 08-28-2021 04:06-0400Body cedbwm94.0088 kgANDARIADNA OTOOLE [facility] HospitalComment on above:Performed By: #### HIV12 #### [facility] [address] [place] [address] Andriy Stein Encounters Encounter DateEncounter TypeCare ProviderFacilityStart: 04-22-2025 End: 48-84-5238Yjpggzbfp Result EncounterJem Ambrosio NP Work Phone: noms External Department UnsolicitedStart: 04-22-2025 End: 28-67-0312Vchgfxpdb Result EncounterJem Ambrosio NP Work Phone: noms External Department UnsolicitedStart: 04-21-2025 End: 42-05-5228dsbggavtidTOJ RAMEYNot AvailableStart: 04-21-2025 End: 01-97-6232Lekdtm outpatient visit 15 minutesDeborah RUBIN Work Phone: noB[facility] OBGYNComment on above:Third trimester ([facility]); 38 weeks gestation of ([facility]Start: 04-21-2025 End: 01-86-8947Aiwyud flowsRocky RUBIN Work Phone: [facility] OBGYNStart: 04-21-2025 End: 80-34-6962Uocqkc flowsheetDeborah Kwan PA Work Phone: [facility] OBGYNStart: 04-14-2025 End: 11-95-1953Pkzteq flowsheetCorey Jenny DO Work Phone: [facility] [place] OBGYNStart: 04-14-2025 End: 63-35-0497Tymnqy flowsheetCorey Jenny DO Work Phone: [facility] [place] OBGYNStart: 04-14-2025 End: 39-82-1395Obcfvs outpatient visit 15 minutesCorey Jenny DO Work Phone: [facility] OBGYNComment on above:Third trimester ([facility]); 37 weeks gestation of ([facility])Start: 04-14-2025 End: 97-23-7683payyrhbmulHYVCE FAZIONot AvailableStart: 04-07-2025 End: 58-60-1788Ogroks marquitaRocky RUBIN Work Phone: [facility] OBGYNStart: 04-07-2025 End: 06-13-3098Tbsjum marquitaheetDeborah Aquiles PA Work Phone: [facility] [place] OBGYNStart: 04-07-2025 End: 58-54-6636Octnrm outpatient visit 15 minutesAmy Aquiles PA Work Phone: [facility] OBGYNComment on above:Third trimester ([facility]); 36 weeks gestation of ([facility])Start: 04-07-2025 End: 37-12-1306qupfgkzhmwJTN RAMEYNot AvailableStart: 03-31-2025 End: 85-16-6138Udrtvejly Result Meeta Ambrosio NP Work Phone: [facility] External Department UnsolicitedStart: 03-31-2025 End: 57-64-0326Zidepijto Result EncounterJem Ambrosio [employer] Work Phone: NO External Department UnsolicitedStart: 03-24-2025 End: 62-59-3935Pkhuqo flowsLaura Ambrosio [employer] Work Phone: [facility] [place] OBGYNStart: 03-24-2025 End: 17-57-6690Shusyv flowsLaura Ambrosio [employer] Work Phone: NO [facility] OBGYNStart: 03-24-2025 End: 35-38-7793Wrdqwa outpatient visit 15 minutesJem Ambrosio NP Work Phone: NO [facility] OBGYNComment on above:34 weeks gestation of ([facility]); Third trimester ([facility]); Gestational diabetes mellitus (GDM) in third trimester, gestational diabetes method of control unspecified ([facility])Start: 03-24-2025 End: 68-85-2768dotztfaemfWKPRXDCR EBERLYNot AvailableStart: 03-20-2025 End: 00-70-6698Eraajhiyq [facility] [place] LDMaternal- Medicine at [facility] Hospitaltart: 03-10-2025 End: 15-50-3849Gbcaoj Magdy RUBIN Work Phone: [facility] [place] OBGYNStart: 03-10-2025 End: 51-41-3306Wubwkc Magdy RUBIN Work Phone: NO [facility] OBGYNStart: 03-10-2025 End: 66-20-0039Pxauev outpatient visit 15 minutesDeborah RUBIN Work Phone: [facility] OBGYNComment on above:32 weeks gestation of ([facility]); Third trimester ([facility])Start: 03-10-2025 End: 67-48-7723alkdcdesqrKZS RAMEYNot AvailableStart: 02-25-2025 End: 32-59-6104zxggbquknmWLN RAMEYNot AvailableStart: 02-16-2025 End: 24-06-3121utpdllulniJUJ RAMEYNot AvailableStart: 02-16-2025 End: 16-03-6207Nkmron outpatient visit 15 minutesDeborah RUBIN Work Phone: [facility] OBGYNComment on above:Size of fetus inconsistent with dates in second trimester ([facility]) (Primary Dx); 28 weeks gestation of ([facility]); Third trimester ([facility])Start: 02-16-2025 End: 30-94-3518Futwop flowsRocky RUBIN Work Phone: [facility] OBGYNStart: 02-16-2025 End: 07-36-8419Vwtnzc marquitaRocky RUBIN Work Phone: [facility] OBGYNStart: 02-13-2025 End: 61-52-5262Kuvdarhgx Result EncounterCorey Jenny DO Work Phone: [facility] External Department UnsolicitedStart: 02-13-2025 End: 55-11-5367Nzgkudrit Result EncounterCorey Jenny DO Work Phone: NOHQ External Department UnsolicitedStart: 02-02-2025 End: 25-65-0894Pzmbjk outpatient visit 15 minutesCorey Jenny DO Work Phone: [facility] OBGYNComment on above:Second trimester ([facility]); 26 weeks gestation of ([facility]); Diabetes mellitus screeningStart: 02-02-2025 End: 19-95-6504bremsqybvaGHGMO FAZIONot AvailableStart: 02-02-2025 End: 94-92-4866Vlayyr flowsheetCorey Jenny DO Work Phone: [facility] OBGYNStart: 02-02-2025 End: 61-52-3769Fxjqnz flowsheetCorey Jenny DO Work Phone: [facility] OBGYNStart: 01-26-2025 End: 71-66-9825quqwdcnsktQUWPH FAZIONot AvailableStart: 01-01-2025 End: 17-79-4910Zeojkb Magdy RUBIN Work Phone: [facility] BCP OBStart: 01-01-2025 End: 23-61-4833Gtbbjt flowsRocky RUBIN Work Phone: [facility] BCP OBStart: 01-01-2025 End: 93-05-7668Kmiscrpv flow sheetDeborah RUBIN Work Phone: [facility] BCP OBComment on above:Second trimester ([facility]); 22 weeks gestation of ([facility])Start: 01-01-2025 End: 17-06-3900bjwryrsshfDMF RAMEYNot AvailableStart: 12-19-2024 End: 30-00-3594Kuqxadvrl Result EncounterCorey Jenny DO Work Phone: [facility] External Department UnsolicitedStart: 12-19-2024 End: 73-15-7592Ooolldycw Result EncounterCorey Jenny DO Work Phone: [facility] External Department UnsolicitedStart: 12-04-2024 End: 87-37-3825Stntys flowsheetCorey Jenny DO Work Phone: [facility] BCP OBStart: 12-04-2024 End: 17-30-9091Kcumoc flowsheetCorey Jenny DO Work Phone: [facility] BCP OBStart: 12-04-2024 End: 48-76-7832Lkuavpjse Result EncounterCorey Jenny DO Work Phone: [facility] External Department UnsolicitedStart: 12-04-2024 End: 70-75-6574Tjkrzqyn Result EncounterDeborah RUBIN Work Phone: [facility] External Department UnsolicitedStart: 12-04-2024 End: 38-74-0937Tfzlpemge encounterDeyarelis STAPLES Work Phone: [phone]-Bijev Medicine at [facility] Start: 12-04-2024 End: 82-16-3480anhgdippofSVTKY FAZIONot AvailableStart: 12-04-2024 End: 80-93-2475Adrpbtv encounter procedureCorey Jenny DO Work Phone: noms HealthcareStart: 12-04-2024 End: 23-28-1791Akgqjkdc flow sheetCorey Jenny DO Work Phone: noms BCP OBComment on above:Second trimester ([facility]); 18 weeks gestation of ([facility]); Well woman exam with routine gynecological exam; Screening, , for anatomic survey ([facility]); Screen for STD (sexually transmitted disease); Need for maternal serum alpha-protein (MSAFP) screening ([facility])Start: 11-24-2024 End: 65-36-6013ugmgwtpoifBulexb M Frey RN Work Phone: [phone]-Isgyv Medicine at [facility] Comment on above:Gestational diabetes mellitus (GDM) in second trimester, gestational diabetes method of control unspecifiedStart: 11-13-2024 End: 23-46-6073Oztldnpt flow sheetCorey Jenny DO Work Phone: noms BCP OBComment on above:15 weeks gestation of ; Second trimester ; Diet controlled gestational diabetes mellitus (GDM), antepartum; Gestational diabetes mellitus (GDM), antepartum, gestational diabetes method of control unspecified; Elevated glucose tolerance testStart: 11-13-2024 End: 33-96-3484fvxdtvrsvqWIMTA FAZIONot AvailableStart: 11-11-2024 End: 19-43-2066Ffjejafnc Result EncounterCorey Jenny DO Work Phone: noms External Department UnsolicitedStart: 11-11-2024 End: 47-75-4356Mflfwbqel Result EncounterCorey Jenny DO Work Phone: noms External Department UnsolicitedStart: 10-16-2024 End: 50-60-8375Vnrnvw outpatient visit 5 minutesNoms Bcp Ob Jenny NurseNOMS BCP OBComment on above:GA: 76a1jOgdkt: 10-16-2024 End: 73-05-7189bbbqhkvikeSTVBH FAZIONot AvailableStart: 12-20-2023 End: 89-40-2561lllgyijvanWT PCP NO PCPProMedica [facility] HospitalStart: 12-19-2023 End: 56-45-2908Nomzazaak department patient visitAMBER FISHERWooster Community Hospitaltart: 12-19-2023 End: 44-72-7837Awvodclxi department patient visitNO PCP NO PCPProMedica Fostoria Community Hospital HospitalStart: 12-14-2023 End: 79-98-4794Eizumpmat Result EncounterCorey Jenny DO Work Phone: noms External Department UnsolicitedStart: 12-14-2023 End: 71-80-3023Piuekjvau Result EncounterCorey Jenny DO Work Phone: noms External Department UnsolicitedStart: 03-01-2022 End: 55-53-2511seeblukxuqAmrhrb A AlejaFacility:[facility], Inctart: 11-08-2021 End: 22-73-6091sktumbydttWO SCOOBY FAZIOFacility:V4Odpvz: 08-01-2021 End: 61-03-0793rpeadwlbidHN SCOOBY FAZIOFacility:O5Wvtxf: 07-30-2021 End: 18-29-8523Nrierhllkx and management of inpatientDR SCOOBY FAZIOFacility:H1 Start: 07-13-2021 End: 53-48-1562dzuymbgcesZI SCOOBY FAZIOFacility:J8Csysc: 07-11-2021 End: 43-96-2597zafztvcxdqHN NADIA Harrison WESTFacility:S7Cwesl: 07-09-2021 End: 21-09-4267gotvkyabvxJdgwr Ginty Other [facility] MusicSiren Other Start: 68-72-6407Hzwwlr outpatient visit 15 minutes Renita GintyFPG Urgent Care ClydeStart: 07-06-2021 End: 41-72-1430kcmfxlugslIF SCOOBY FAZIOFacility:O9Qjzhx: 06-20-2021 End: 14-76-7702hsxuuspyuyXN NADIA V WESTFacility:Z7Rgbne: 06-08-2021 End: 19-38-5609tullpjkfzyIX SCOOBY FAZIOFacility:T0Pkmyd: 05-04-2021 End: 82-78-0299dfggkxvezwSPMVQA MOOREFacility:V7Vkvol: 04-30-2021 End: 82-07-9511hhkgyzonrdOBYCTJ MOOREFacility:V9Gzztc: 04-28-2021 End: 54-33-8088ceufmpbutfPTBDBS MOOREFacility:U8Mgmge: 04-20-2021 End: 77-88-5136twwiqwetvkXNKVSJ MOOREFacility:Y4Moypa: 04-07-2021 End: 71-13-9637sgnudvhwofHKCZT [facility]ITAL[facility]ERFacility:Z8Cjyjj: 03-21-2021 End: 57-89-8248ysvwpesadpUJLAHD MOOREFacility:A9Vdock: 02-17-2021 End: 76-19-0905kfovfxzxqyMXZNIE MOOREFacility:P0Dgumo: 02-05-2021 End: 57-40-8739oueiesplmjRBEPSD MOOREFacility:S9Lnaov: 01-28-2021 End: 25-27-4652bxwbjwdcjqUZPCVR MOOREFacility:R9Vibxd: 01-26-2021 End: 41-57-0286cecldrojawQCFWLG MOOREFacility:U4Ybovb: 01-24-2021 End: 37-22-4076wwdarcluuiMIALIT MOOREFacility:O7Nhobg: 01-19-2021 End: 29-12-0123qoopeylyqxFCFDFM MOOREFacility:H1 Procedures DateProcedureProcedure DetailPerforming ClinicianStart: 07-45-8711BS OB BPP W NON-STRESSKristina Hebert [employer] Work Phone: Start: 79-16-5216Mwqsd dip stick/tablet rgnt non-auto w/o micrscpAmy Aquiles RUBIN Work Phone: Start: 04-39-3621Bnabj dip stick/tablet rgnt non-auto w/o micrscpCorey Jenny DO Work Phone: Start: 14-55-0435Qvxgz dip stick/tablet rgnt non-auto w/o micrscpAmy Aquiles RUBIN Work Phone: Start: 43-03-9043VK OB BPP W NON-STRESSKristinpaco Ambrosio [employer] Work Phone: Start: 87-00-3674Erpxk dip stick/tablet rgnt non-auto w/o micrscpTriciaa Hebert [employer] Work Phone: Start: 39-61-5333Rhapv dip stick/tablet rgnt non-auto w/o micrscpAnegra RUBIN Work Phone: Start: 43-32-7004CQV CBC WITH AUTO DIFFCorey Jenny DO Work Phone: Start: 41-08-9442Iptiu dip stick/tablet rgnt non-auto w/o micrscpCorey Jenny DO Work Phone: Start: 77-00-3775Crrys dip stick/tablet rgnt non-auto w/o micrscpAnegra RUBIN Work Phone: Start: 70-27-1693WA OB ANATOMYCorey Jenny DO Work Phone: Start: 43-94-6695HB OB CERVICAL LENGTHCorey Jenny DO Work Phone: Start: 37-59-4684MGIGUFXXY VAGINITIS (HTRX)Deborah RUBIN Work Phone: Start: 39-98-2944Nebup dip stick/tablet rgnt non-auto w/o micrscpCorey Jenny DO Work Phone: Start: 89-34-7753OSO,APTIMA HPV,AGE GDLNCorey Jenny DO Work Phone: Start: 19-76-1364Ivndnludyna observation [Identifier] in Cervix by Cyto stainCorey Jenny DO Work Phone: Start: 45-04-4899Otzvbwc quantitative blood xcpt reagent stripCollelsy Oliva Elda BARRERA Work Phone: Start: 45-84-7757Ywvtm dip stick/tablet rgnt non-auto w/o micrscpCorey Jenny DO Work Phone: Start: 69-88-5903UBM TESTCorey Jenny DO Work Phone: Start: 10-16-2024 End: 35-03-7131Gmbfd dip stick/tablet rgnt non-auto w/o micrscpCorey Jenny DO Work Phone: Start: 13-49-7994TQ OB TRANSVAGINALCorey Jenny DO Work Phone: Start: 26-77-9227Eqtpxxbo of Products of Conception, External ApproachANDARIADNA MARENGOStart: 21-98-6623Wiqahelk of Amniotic Fluid, Therapeutic from Products of Conception, Via Natural or Artificial OpeningANDMEADOWLANDS HOSPITAL MEDICAL CENTERStart: 68-71-7562Mfduzeoqwdeq of Other Hormone into Peripheral Vein, Percutaneous ApproachCOBRE VALLEY REGIONAL MEDICAL CENTERARIADNA MARENGOStart: 38-91-8820Bqxecd Perineum Skin, External ApproachRENAY OTOOLE Plan of Treatment DateCare ActivityDetailAuthorStart: 77-24-2592SUbM,Tdap and Td Vaccines (3 - Td or Tdap)DTaP,Tdap and Td Vaccines (3 - Td or Tdap)[facility] HospitaledicGlencoe [facility] SystemStart: 91-92-3236Umpttmcuf for malignant neoplasm of cervixNOMS HealthcareStart: 39-35-1072Pzhpj BMI ScreeningAdult BMI ScreeningProSumma Health Barberton Campusca [facility] SystemStart: 06-15-2025 End: 44-91-2293vczzxbjxro70/22/2025 9:50 AM EST Visit [facility] [address] [place], [id number] Scooby Alvarado, DO [address] [place] [address] [facility] OBGYNStart: 04-21-2025 End: 80-92-3405Zqgbvfj encounter procedureNOMS [place] OBGYNComment on above: ArrivedStart: 04-14-2025 End: 37-88-9655Hyzvupa encounter procedureNOMS Sanam OBGYNComment on above: ArrivedStart: 04-07-2025 End: 88-52-0217JFKFJZJ, GROUP B STREP WITH SUSCEPTIBLITYCULTURE, GROUP B STREP WITH SUSCEPTIBLITY Lab Routine Third trimester ([facility]) Expected: 04/07/2025, Expires: 04/07/2026[facility] Work Phone: comment on above:Expected: 04/07/2025, Expires: 04/07/2026Start: 04-07-2025 End: 58-71-0078Nmpyhzr encounter procedureNOMS Sanam OBGYNComment on above: ArrivedStart: 03-24-2025 End: 17-47-3681NN biophysical profile w non stress testUS biophysical profile w non stress test Imaging Routine Third trimester ([facility]) Expected: 03/24/2025 (Approximate), Expires: 09/21/2025[facility] Work Phone: comment on above:Expected: 03/24/2025 (Approximate), Expires: 09/21/2025Start: 03-24-2025 End: 99-10-7375Hvvumue encounter procedureNOMS [place] OBGYNComment on above: ArrivedStart: 03-10-2025 End: 21-93-5451Lxkqlxf encounter sisqjwbtt12/16/2025 1:20 PM EDT Routine [facility] [address] [place], [id number] Deborah Kwan PA [address] [place] [address] ArrivedNOMS [place] OBGYNComment on above:ArrivedStart: 03-03-2025 End: 01-56-0925Iioppeh encounter whcccarir46/09/2025 2:40 PM EDT Routine [facility] [address] [place], [id number] Scooby Alvarado DO [address] [address] [facility] OBGYNStart: 02-25-2025 End: 21-10-2556Vikpcrpfrizu / ancillary services /03/2025 3:00 PM EDT Ancillary Procedure [facility] [address] [place] [phone] [facility] OBGYNStart: 07-18-9734IHRGD-19 Vaccine ( season)COVID-19 Vaccine ( season)[facility] Start: 03-34-0456Cyojdiuen vaccinationProSumma Health Barberton Campusca Health SystemStart: 02-16-2025 End: 73-80-0513Ajazmsh encounter naxastimf42/25/2025 2:30 PM EDT Routine [facility] [address] [place], [phone] Deborah Kwan PA [address] [place] [address] [facility] [place] [facility]BGYNStart: 02-16-2025 End: 07-37-5079KZ for pregnancyUS OB follow up transabdominal approach Imaging Routine Size of fetus inconsistent with dates in second trimester ([facility]) Expected: 02/16/2025, Expires: 06/18/2025[facility] Work Phone: comment on above:Expected: 02/16/2025, Expires: 06/18/2025Start: 02-02-2025 End: 13-79-8528Taldpib encounter procedureNOMS BCP OBComment on above:Arrived Start: 02-02-2025 End: 63-52-8978EQM panel - Blood by Automated countCBC Lab Routine Diabetes mellitus screening Expected: 02/02/2025 (Approximate), Expires: 02/02/2026[facility] Work Phone: comment on above:Expected: 02/02/2025 (Approximate), Expires: 02/02/2026Start: 01-20-2025 End: 21-67-8751Dqcxgqpvkftz / ancillary services /29/2025 3:00 PM EDT Ancillary Procedure [facility] [address] [place] [address] [facility] OBStart: 01-01-2025 End: 02-19-7304Hfdaejn encounter procedureNOMS [facility] OBComment on above:Arrived Start: 39-61-1610Svwddka ScreeningTobacco ScreeningProFort Hamilton Hospital SystemStart: 98-09-1597Tailv BMI ScreeningAdult BMI ScreeningDuke Healthtart: 12-04-2024 End: 14-79-2170Wrqve fetoprotein, maternalAlpha fetoprotein, maternal Lab Routine Need for maternal serum alpha-protein (MSAFP) screening ([facility]) Expected: 12/04/2024 (Approximate), Expires: 01/03/2025NOW[facility] HealthcareComment on above:Expected: 12/04/2024 (Approximate), Expires: 01/03/2025Start: 12-04-2024 End: 31-13-3303XX for pregnancyUS OB 14+ weeks anatomy scan Imaging Routine Screening, , for anatomic survey ([facility]) Expected: 12/04/2024, Expires: 03/06/2025[facility] HealthcareComment on above:Expected: 12/04/2024, Expires: 03/06/2025Start: 12-04-2024 End: 77-62-2530Wytrdch encounter zmhovgboh60/12/2025 9:40 AM EDT Routine [facility] [address] [phone] Scooby Alvarado, DO [address] [place] [address] [facility] BCP OBStart: 11-13-2024 End: 12-09-2813Fflujks encounter aeeiveuxu88/22/2025 10:40 AM EDT Rout[facility] [address] [place] [phone] Scooby Alvarado, DO [address] [address] [facility] BCP OBStart: 10-16-2024 End: 13-51-7092GCM/RhABO/Rh Lab Routine Missed menses , unspecified gestational age Expected: 10/16/2024 (Approximate), Expires: 10/16/2025NOW[facility] HealthcareComment on above:Expected: 10/16/2024 (Approximate), Expires: 10/16/2025Start: 10-16-2024 End: 18-08-7939Sbxzh type and Indirect antibody screen panel - BloodType and screen Lab Routine Missed menses , unspecified gestational age Expected: 10/16/2024 (Approximate), Expires: 10/16/2025[facility] Work Phone: comment on above:Expected: 10/16/2024 (Approximate), Expires: 10/16/2025Start: 10-16-2024 End: 96-89-7556Fqycg of abuse panel - Urine by Screen methodRapid drug screen, urine Lab Routine , unspecified gestational age Encounter for supervision of normal first in first trimester Expected: 10/16/2024 (Approximate), Expires: 10/16/2025NOW[facility] HealthcareComment on above:Expected: 10/16/2024 (Approximate), Expires: 10/16/2025Start: 93-24-8686FWXMC-19 Vaccine ( season)COVID-19 Vaccine ( season)[facility] Start: 39-44-4268Mkvqgogyn for malignant neoplasm of cervixNOMS HealthcareStart: 94-09-3328DSM Vaccines (1 - 3-dose SCDM series)HPV Vaccines (1 - 3-dose SCDM series)[facility] HealthcareStart: 01-56-8284Oxlzaojtd for malignant neoplasm of cervixPap SmearNOWI HealthcareStart: 01-78-5626Bwfwyerzo B Vaccines (1 of 3 - 19+ 3-dose series)Hepatitis B Vaccines (1 of 3 - 19+ 3-dose series)[facility] HealthcareStart: 09-88-5956Uwzib BMI Follow Up PlanAdult BMI Follow Up Plan [facility] SystemStart: 40-94-6170Dubfnon of varicella vaccination Varicella Vaccines (1 of 2 - 13+ 2-dose series)[facility] HealthcareStart: 2003 Depression ScreeningDepression ScreeningShelby Memorial Hospital SystemStart: 1998 DTaP/Tdap/Td Vaccines (1 - Tdap)DTaP/Tdap/Td Vaccines (1 - Tdap)[facility] Healthcare Start: 88-95-6850UYZ Vaccines (1 of 1 - Standard series)MMR Vaccines (1 of 1 - Standard series)[facility] LouisBacteria identified in Urine by CultureUrine culture Microbiology Routine Missed menses Ordered: 10/16/2024[facility] Healthcare Comment on above:Ordered: 10/16/2024BC W Auto Differential panel - BloodCBC and differential Lab Routine Missed menses , unspecified gestational age Ordered: 10/16/2024[facility] HealthcareComment on above:Ordered: 10/16/2024HLAMYDIA TRACHOMATIS (GENITO/STI)CHLAMYDIA TRACHOMATIS (GENITO/STI) Lab Routine Screen for STD (sexually transmitted disease) Ordered: 12/04/2024[facility] HealthcareComment on above:Ordered: 12/04/2024ytology Cervical or vaginal smear or scraping studyPap Smear Pathology and Cytology Routine Well woman exam with routine gynecological exam Ordered: 12/04/2024[facility] HealthcareComment on above:Ordered: 12/04/2024Hemoglobin A1c/Hemoglobin.total in BloodHemoglobin A1c Lab Routine Missed menses , unspecified gestational age Ordered: 10/16/2024[facility] HealthcareComment on above:Ordered: 10/16/2024Hepatitis B virus surface Ag [Presence] in Serum or Plasma by ImmunoassayHepatitis B surface antigen Lab Routine Missed menses , unspecified gestational age Ordered: 10/16/2024 [facility] HealthcareComment on above:Ordered: 10/16/2024Hepatitis C virus Ab [Presence] in Serum or Plasma by ImmunoassayHepatitis C antibody Lab Routine Missed menses , unspecified gestational age Ordered: 10/16/2024[facility] HealthcareComment on above:Ordered: 10/16/2024HIV-1/HIV-2 antigen/antibody combination immunoassayHIV-1 and HIV-2 antibodies Lab Routine Missed menses , unspecified gestational age Ordered: 10/16/2024[facility] HealthcareComment on above:Ordered: 10/16/2024Human papilloma virus DNA [Presence] in Unspecified specimen by Probe with amplificationHPV DNA probe, amplified Microbiology Routine Well woman exam with routine gynecological exam Ordered: 12/04/2024[facility] HealthcareComment on above:Ordered: 12/04/2024Neisseria gonorrhoeae DNA [Presence] in Unspecified specimen by CARLITOS with probe detectionNeisseria gonorrhea DNA probe, direct Lab Routine Screen for STD (sexually transmitted disease) Ordered: 12/04/2024[facility] HealthcareComment on above:Ordered: 12/04/2024 Reagin Ab [Presence] in Serum by RPRRPR Lab Routine Missed menses , unspecified gestational age Ordered: 10/16/2024[facility] HealthcareComment on above: Ordered: 10/16/2024Rubella antibody, IgGRubella antibody, IgG Lab Routine Missed menses , unspecified gestational age Ordered: 10/16/2024[facility] HealthcareComment on above:Ordered: 10/16/2024SURESWAB(R) ADVANCED VAGINITIS PLUS, TMASURESWAB(R) ADVANCED VAGINITIS PLUS, TMA Pathology and Cytology Routine Screen for STD (sexually transmitted disease) Ordered: 12/04/2024[facility] Work Phone: comment on above:Ordered: 12/04/2024 Immunizations Immunization DateImmunizationNotesCare LzdacnytEkhpkake85-12-8597fvyogriuj virus vaccine, unspecified formulationOma Davis RN Work Phone: [facility] Payers DatePayer CategoryPayerPolicy ID2025MedicaidANTHEM BCBS MEDICAID [place] [id number] [id number] 60-09-2535Jgde-lme44-68-1802Bxqpqin Care Other (unspecified)[facility] [id number]pnv Health Insurance [id number].210159.04728-15-6559Ezrvugb Health [id number] 2.1.050381.3.579.2.593 [id number] 2.1.222409.3.57[id number] 2..1.994660.3.57[id number] 2.1.160313.3.57[id number] 2.16.840.1.285528.3.579.2.79200-35-0046Zujvkqv2729412 2.840.1.529854.3.579.2.[id number] 2.16840.1.276511.3.579.2.20510-72-2720Sghamgq4198197 2.840.1.154806.3.579.2.45533-42-7054Qirthtn6544362 2.840.1.855839.3.579.2.14121-08-7462Hlybsbl8947806 2.0.1.011962.3.579.2.26373-07-7530Vtnmdni2061094 2.840.1.903126.3.579.2.12386-15-9619Jbwkolm0044439 2.840.1.099572.3.579.2.26719-22-7210Eieanzt9977728 2.0.1.112099.3.579.2.61630-02-7309Hfxgzry2038898 2.840.1.387922.3.579.2.72559-17-6734Umzlxui8693620 2.0.1.811575.3.579.2.85514-04-2764Lirdudg2020559 2.840.1.910642.3.579.2.37197-14-5250Oejjrvd8679979 2.840.1.728845.3.579.2.00584-24-8295Yiikgce0620702 2.840.1.295243.3.579.2.60034-56-1927Sazmkuk1652117 2.840.1.471579.3.579.2.47606-44-1098Vnholne9589631 2.16.840.1.769972.3.579.2.89867-66-5872Soeedom32824009 2.16.840.1.791173.3.579.2.178357-81-0777Lmqikjf34898446 2.16.840.1.596723.3.579.2.799327-47-3248Yxodicz84141707 2.840.1.327490.3.579.2.443351-04-6229Fjuwsng151512362 2.840.1.809229.3.579.2.046807-40-6639Jjoyqlv64485458 2.840.1.036454.3.579.2.954494-83-2064Cajwvzf87723399 2.0.1.489925.3.579.2.270215-24-3482Srczrrg50804806 2.840.1.024815.3.579.2.374883-04-4839Rhmygzu40143184 2.0.1.847429.3.579.2.514347-43-1140Vuwqldd40126961 2.840.1.627939.3.579.2.271579-05-4816Wavhzpe50741990 2.0.1.508863.3.579.2.038874-37-8989Axbhyky77288081 2.840.1.865673.3.579.2.558611-20-6274Xyyqfqs42466639 2.840.1.922748.3.579.2.675244-27-1082Ygykcgk46823981 2.840.1.534535.3.579.2.482796-50-5408Abtnqkk40815380 2.840.1.061024.3.579.2.281255-84-9022Sqduinl40545078 2..840.1.682761.3.579.2.206549-65-3166Eiwgxgb3624447 2.16.840.1.847766.3.579.2.443172-77-1659Cjralvy0515879 2.16.840.1.809604.3.579.2.819713-28-7472Fxoylpz7612704 2..840.1.218666.3.579.2.270957-28-0298Jcxrltk5936592072829-76-1019Yykcigy [id number] 2..840.1.262061.3.579.2.531 Social History DateTypeDetailFacilityStart: 08-05-2020 End: 45-30-4361Jum Assigned At BirthProFort [facility] Hospital SystemTobacco smoking status NHISTobacco smoking consumption unknownNOMS HealthcareStart: 08-12-2024 PregnancyNOMS HealthcareStart: 04-34-7484Pls assigned at birthFemaleNOWI HealthcareStart: 36-08-6871Gbixbb identityIdentifies as female gender (finding) [facility] HealthcareStart: 74-68-9675Ahzkhp orientationHeterosexual (finding)[facility] HealthcareStart: 28-27-2868Fetuvyl smoking status NHISNever smoked tobacco [facility] SystemStart: 55-88-3439Ynwsopx use and exposureSmokeless tobacco non-userShelby Memorial Hospital SystemStart: 76-24-7099Iijlvaffq beverage intakeEx-drinker (finding)[facility] SystemStart: 08-05-2020 End: 87-39-2274Jeonbhf of Social functionShelby Memorial Hospital SystemStart: 23-61-5049Jad you worried or concerned that in the next two months you may not have stable housing that you own, rent or stay in as a part of a household?No [facility] SystemStart: 75-98-4739Alh assigned at birthNot on file [facility] SystemStart: 77-52-9405AarWhxogf (finding)[facility] Medical Equipment Procedure CodeEquipment CodeEquipment Original TextEquipment IdentifierDates1 strip by In Vitro route Daily Use in the morning prior to breakfast, 1 hour after each meal for atotal of 4times daily.[id number]: 11-13-2024 End: each by In Vitro route Daily Use to check FSBS four times daily [id number]: 11-13-2024 End: 12-13-2024 Clinical Notes 07-09-2021 to 04-21-2025 Note Date & JzceEiyhNxgvhwok68-79-6078 History of Present illness Narrative* Jem Ambrosio, [employer] - 04/21/2025 2:20 PM EDT Reason for [...] meal for a total of 4times daily. Oqzaxxbo-Ikc-Ig-FA ( 1 + IRON PO) Take by [...] nursing note reviewed. Exam conducted with a hire car driver present. Vitals: Estimated body mass index is 34.46 kg/m as calculated from the following: Height as of 12/04/24: 5' 4 . Weight as of this encounter: 200 lb 12 oz. BP: 140/82 Patient's last menstrual period was 07/29/2024 (exact date). Assessment/Plan ICD-10-CM 1. Third trimester ([facility]) Z34.93 POCT urinalysis dipstick manually resulted 2. 38 weeks gestation of ([facility]) Z3A.38 Return OB: Patient presents today for [...] behalf of: SCOTTIE Yañez documented in this encounterMercy Hospital St. LouisLfjsuyinjm61-91-4277 History of Present illness Narrative* Sarita Wan [...] to check FSBS. Blood Glucose Monitoring Suppl ([employer] Glucometer) w/Device kit 1 kit, Does not apply, Daily, Use four times daily to check FSBS. In the morning prior to breakfast & 1 hour after each meal for a total of 4times daily. Gglqenwr-Pvg-Kv-FA ( 1 + IRON PO) Take by [...] nursing note reviewed. Exam conducted with a hire car driver present. Vitals: Estimated body mass index is 34.47 kg/m as calculated from the following: Height as of 12/04/24: 5' 4 . Weight as of this encounter: 200 lb 12.8 oz. BP: 130/78 Patient's last menstrual period was 07/29/2024 (exact date). Assessment/Plan ICD-10-CM 1. Third trimester ([facility]) Z34.93 2. 37 weeks gestation of ([facility]) Z3A.37 POCT urinalysis dipstick manually resulted Return [...] of: Scooby Alvarado DO documented in this encounterMercy Hospital St. LouisOlxxuxtdyw55-96-4236 History of Present illness Narrative* SCOTTIE Yañez - 04/07/2025 1:30 PM EDT Reason for Appointment: Patient ID: Paris oMsqueda is a 34 y.o. female who presents [...] meal for a total of 4times daily. Fhdgjqrj-Ysb-Qu-FA ( 1 + IRON PO) Take by [...] ASSESSMENT & PLAN ICD-10-CM 1. Third trimester ([facility]) Z34.93 POCT urinalysis dipstick manually resulted CULTURE, GROUP B STREP WITH SUSCEPTIBLITY CULTURE, GROUP B STREP WITH SUSCEPTIBLITY 2. 36 weeks gestation of ([facility]) Z3A.36 Patient is doing well but has [...] surgical history on file. documented in this encounterMercy Hospital St. LouisDjopknlboy77-47-6985 History of Present illness Narrative* Jem Ambrosio [...] meal for a total of 4times daily. Lhhssavu-Jym-Gu-FA ( 1 + IRON PO) Take by [...] nursing note reviewed. Exam conducted with a hire car driver present. Vitals: Estimated body mass index is 33.44 kg/m as calculated from the following: Height as of 12/04/24: 5' 4 . Weight as of 03/10/25: 194 lb 12.8 oz. BP: Patient's last menstrual period was 07/29/2024 (exact date). ASSESSMENT & PLAN ICD-10-CM 1. 34 weeks gestation of ([facility]) Z3A.34 2. Third trimester ([facility]) Z34.93 US biophysical profile w non stress test POCT urinalysis dipstick manually resulted 3. Gestational diabetes mellitus (GDM) in third trimester, gestational diabetes method of control unspecified ([facility]) O24.419 Return OB: Patient presents today for [...] to send her glucose logs to [facility] and we will begin NST/BPP this week. Orders Placed This Encounter Procedures US biophysical profile w non stress test POCT urinalysis dipstick manually resulted Follow Up: Patient is to return to office in 2 week for routine OB appointment. Documented by Yane Grant MA on behalf of: Jem Ambrosio NP documented in this encounterMercy Hospital St. LouisXvlqjdxiei02-93-1121 Miscellaneous Notes* Telephone Encounter - BEL Navarro - 03/20/2025 12:55 PM EDT Called patient and had to leave a voicemail. We haven't received any blood sugar logs for 4 weeks. Asked her to please send them to us or to call with questions. Left RD phone number. documented in this encounterDay[facility] Dune SciencePpsebd99-64-5698 Telephone encounter Note* Telephone Encounter - BEL Navarro - 03/20/2025 12:55 PM EDT Called patient and had to leave a voicemail. We haven't received any blood sugar logs for 4 weeks. Asked her to please send them to us or to call with questions. Left RD phone number. [facility] HealthIdealSeatSpfoqf18-64-1864 History of Present illness Narrative* SCOTTIE Yañez [...] to check FSBS. Blood Glucose Monitoring Suppl ([employer] Glucometer) w/Device kit 1 kit, Does not apply, Daily, Use four times daily to check FSBS. In the morning prior to breakfast & 1 hour after each meal for a total of 4times daily. Uydffske-Vvo-Al-FA ( 1 + IRON PO) Take by [...] nursing note reviewed. Exam conducted with a hire car driver present. Vitals: Estimated body mass index is 33.44 kg/m as calculated from the following: Height as of 12/04/24: 5' 4 . Weight as of this encounter: 194 lb 12.8 oz. BP: 136/74 Patient's last menstrual period was 07/29/2024 (exact date). ASSESSMENT & PLAN ICD-10-CM 1. 32 weeks gestation of ([facility]) Z3A.32 POCT urinalysis dipstick manually resulted 2. Third trimester ([facility]) Z34.93 POCT urinalysis dipstick manually resulted Return [...] behalf of: SCOTTIE Yañez documented in this encounterMercy Hospital St. LouisMmirkieims26-03-2316 History of Present illness Narrative* SCOTTIE Yañez [...] meal for a total of 4times daily. Zvynqpyv-Qdd-Dd-FA ( 1 + IRON PO) Take by [...] nursing note reviewed. Exam conducted with a hire car driver present. Vitals: Estimated body mass index is 33.3 kg/m as calculated from the following: Height as of 12/04/24: 5' 4 . Weight as of this encounter: 194 lb. BP: 128/72 Patient's last menstrual period was 07/29/2024 (exact date). ASSESSMENT & PLAN ICD-10-CM 1. Size of fetus inconsistent with dates in second trimester ([facility]) O26.842 US OB follow up transabdominal approach 2. 28 weeks gestation of ([facility]) Z3A.28 CANCELED: CBC and differential 3. Third trimester ([facility]) Z34.93 Return OB: Patient presents today for [...] behalf of: SCOTTIE Yañez documented in this encounterMercy Hospital St. LouisPsnjlziocz29-23-7642 History of Present illness Narrative* Jem Ambrosio [...] to check FSBS. Blood Glucose Monitoring Suppl (D-Superfocus Glucometer) w/Device kit 1 kit, Does not apply, Daily, Use four times daily to check FSBS. In the morning prior to breakfast & 1 hour after each meal for a total of 4times daily. [id number]-[id number]-[id number] ( 1 + IRON PO) Take by [...] nursing note reviewed. Exam conducted with a hire car driver present. Vitals: Estimated body mass index is 33 kg/m as calculated from the following: Height as of 12/04/24: 5' 4 . Weight as of this encounter: 192 lb 4 oz. BP: 136/78 Patient's last menstrual period was 07/29/2024 (exact date). ASSESSMENT & PLAN ICD-10-CM 1. Second trimester ([facility]) Z34.92 POCT urinalysis dipstick manually resulted 2. 26 weeks gestation of ([facility]) Z3A.26 3. Diabetes mellitus screening Z13.1 CBC [...] log and completed Diabetic education through [facility]. Documented by Jem Ambrosio NP on behalf of: Scooby Alvarado DO documented in this encounterMercy Hospital St. [id number] History of Present illness Narrative* SCOTTIE Yañez [...] to check FSBS. Blood Glucose Monitoring Suppl ([employer]-Superfocus Glucometer) w/Device kit 1 kit, Does not apply, Daily, Use four times daily to check FSBS. In the morning prior to breakfast & 1 hour after each meal for a total of 4times daily. Gmcdkyiq-Rak-Eo-FA ( 1 + IRON PO) Take by [...] ASSESSMENT & PLAN ICD-10-CM 1. Second trimester ([facility]) Z34.92 POCT urinalysis dipstick manually resulted 2. 22 weeks gestation of ([facility]) Z3A.22 Return OB: Patient presents today for [...] behalf of: SCOTTIE Yañez documented in this encounterMercy Hospital St. [id number] Miscellaneous Notes* Telephone Encounter - BEL Anderson [...] have questions you can call me at [phone]. Please continue to send in blood sugars weekly. I will also send a oneDrum message. documented in [facility] encounterGe[facility] Telephone encounter Note* Telephone Encounter - [...] have questions you can call me at [phone]. Please continue to send in blood sugars weekly. I will also send a oneDrum message. [employer] Work Phone: 1(402) 250-149506-12-2025 History of Present illness Narrative* Yane Grant [...] Use to check FSBS four times daily Wqzqbjzt-Jve-Kk-FA ( 1 + IRON PO) Take by [...] nursing note reviewed. Exam conducted with a hire car driver present. Vitals: There is no height or weight on file to calculate BMI. BP: 118/72 Patient's last menstrual period was 07/29/2024 (exact date). ASSESSMENT & PLAN ICD-10-CM 1. Second trimester ([facility]) Z34.92 POCT urinalysis dipstick manually resulted 2. 18 weeks gestation of ([facility]) Z3A.18 3. Well woman exam with routine gynecological exam Z01.419 Pap Smear HPV DNA probe, amplified 4. Screening, , for anatomic survey ([facility]) Z36.89 US OB 14+ weeks anatomy scan 5. Screen for STD (sexually transmitted disease) Z11.3 SURESWAB(R) ADVANCED VAGINITIS PLUS, TMA CHLAMYDIA TRACHOMATIS (GENITO/STI) Neisseria gonorrhea DNA probe, direct 6. Need for maternal serum alpha-protein (MSAFP) screening ([facility]) Z36.1 Alpha fetoprotein, maternal Alpha fetoprotein, maternal Return OB/Annual Exam: Patient presents today for an annual exam/routine obstetrics appointment. Patient is currently 18w2d . Patient is doing well and states she has no complaints. Pap/cultures was obtained without difficulty and [facility]. Orders Placed This [...] of: Scooby Alvarado DO documented in this encounterMercy Hospital St. [id number] Group counseling note* Group Note - Chinyere [...] Face to face time was 85 minutes. [employer] Work Phone: [phone]) 265-203606-02-2025 Miscellaneous Notes* Group Note - Chinyere Martinez [...] time was 85 minutes. documented in this encounterKindred Hospital DaytonAirCell Beaumont HospitalDuptec42-77-9784 History of Present illness Narrative* Wendy Ulloa [...] Use to check FSBS four times daily Dcszkrfa-Lhe-Fw-FA ( 1 + IRON PO) Take by [...] nursing note reviewed. Exam conducted with a hire car driver present. Vitals: There is no height or [...] [facility] Patient has been consulted regarding any further do's and don'tsof . Patient voiced understanding and all questions and concerns were answered. Orders Placed This Encounter Procedures POCT urinalysis dipstick manually resulted Discussed with patient her recent A1c results and patient aware that referral will be sent to [facility] for Diabetic Education and monitoring. PVU and supplies sent to pharmacy for patient to pickup and take with her to her referral appointment. Follow Up: Patient is to return in 4 weeks for routine OB appointment. Documented by Wendy Ulloa LPN on behalf of: Scooby Alvarado DO documented in this encounterMercy Hospital St. LouisDdzhvgaaqu56-31-2432 History of Present illness Narrative* Faye Tyler [...] meat, [facility]. Patient has also been advised to [...] by: Faye Tyler MA documented in this encounterMercy Hospital St. LouisAarsojnabw82-44-4800 Evaluation note* Encounter Date Diagnosis Assessment Notes [...] Patient care instructions given in writting by [facility] Care At Home document [employer] Other Evaluation note* Diagnosis Missed menses Missed menses , unspecified gestational age Encounter for supervision of normal first in first trimester documented in this encounter [facility] HealthcareEvaluation note* Diagnosis 15 weeks gestation of Second trimester state, incidental Diet controlled gestational diabetes mellitus (GDM), antepartum Gestational diabetes mellitus (GDM), antepartum, gestational diabetes method of control unspecified Elevated glucose tolerance test Impaired glucose tolerance test documented in this encounter [facility] HealthcareEvaluation note* Diagnosis Gestational diabetes mellitus (GDM) in second trimester, gestational diabetes method of control unspecified documented in this encounter [facility] SystemEvaluation note* Diagnosis Second trimester ([facility]) state, incidental 18 weeks gestation of ([facility]) Well woman exam with routine gynecological exam Routine gynecological examination Screening, , for anatomic survey ([facility]) Encounter for anatomic survey Screen for STD [...] encounter [facility] HealthcareInstructionsNot on filedocumented in this encounterProMediFort Hamilton Hospital SystemInstructionsNot on filedocumented in this encounterProFort Hamilton Hospital System Summary Purpose Family History No Family History Records FoundNo Family History Records FoundNo Family History Records FoundNo Family History Records FoundNo Family History Records Found Advance Directives Date ActivatedDate InactivatedComments12/20/2023 11:13 PM12/21/2023 1:46 PM Additional Source Comments INFORMATION SOURCE (unrecogn ized section and content) DATE CREATED AUTHOR 11/17/2021 [facility] DATE CREATED AUTHOR AUTHOR'S ORGANIZ ATION 03/24/2022 [facility] DATE CREATED AUTHOR AUTHOR'S ORGANIZ ATION 12/29/2023 [facility] DATE CREATED AUTHOR AUTHOR'S ORGANIZ ATION 11/25/[address] [facility] DATE CREATED AUTHOR AUTHOR'S ORGANIZ ATION 04/23/2025 [facility] EPIC REASON FOR VISIT (unrecogniz ed section and content) ReasonCommentsAmenorrheaReasonCommentsRoutine VisitReasonComments Gestational DiabetesSpecialtyDiagnoses / ProceduresReferred By ContactReferred To ContactMaternal and Medicine Diagnoses Gestational diabetes mellitus (GDM) in second trimester, gestational diabetes method of control unspecified Scooby Alvarado, DO [address] [place] [address] Phone: tel: fax: Maternal- Medicine at [facility] [address] [place] [address] Phone: tel: fax: Referral IDStatusReasonStart DateExpiration DateVisits RequestedVisits [id number] Review Specialty Services Required / Care Teams (unrecognized sec tion and content) Team MemberRelationshipSpecialtyStart DateEnd Date No Pcp, [place] [address] PCP - GeneralFamily Medicine12/19/23Team MemberRelationshipSpecialtyStart DateEnd Date No Pcp, [place] [address] PCP - GeneralFamily Medicine12/19/23Team MemberRelationshipSpecialtyStart DateEnd Date No Pcp, [place] [address] PCP - GeneralFamily Medicine12/19/23Team MemberRelationshipSpecialtyStart DateEnd Date Jihan Epps NP [address] [place] [address] PCP - NOMMyra Araujo [facility]4/ FOR RECORDS PERTAINING TO PATIENTS WHO [...] BE BASED ON THE PRIMARY CLINICAL RECORDS. [facility], [facility]. provides no warranty or guarantee of the accuracy or completeness of information in this document.
--- OUTSIDE RECORDS SUMMARY | 2025-04-28 22:27 | XMS_ITS | Encounter Summary ---
Author Organization [facility] Address [address] [place] [address] Care Team Providers Care Trial Lawyer Name Role Phone Jihan Dempsey IMPORT DISPATCHER Unavailable [phone] Encounter Details DateTypeDepartmentCare Team (Latest Contact Info)Fhbdthdosdl62/21/2024Clinisync Result Encounter [facility] External Department Unsolicited Scooby Alvarado, [address] [place], [facility] Social History Tobacco UseTypesPacks/DayYears UsedDateSmoking Tobacco: Never Assessed CommentsUnknownSex and Gender InformationValueDate RecordedSex Assigned at Uamxfc1806/27/2023 9:38 AM ESTLegal HqhEoacgd45/15/2023 6:47 PM EDTGender Identity Iqxwpp0006/27/2023 9:38 AM ESTSexual VbmukmyxcnuWbawutaq89/03/2024 9:38 AM EST documented as of this encounter Plan of Treatment DateTypeDepartmentCare Team (Latest Contact Info)Adtevcucxfb32/22/2025 9:50 AM ESTPostpartum Visit [facility] Sanam BAINGYN [address] [place] [address] Scooby Alvarado DO [address] [place] [address] documented as of this encounter Procedures Procedure NamePriorityDate/TimeAssociated DiagnosisCommentsUS OB TRANSVAGINAL 12/14/2023 9:53 AM EDT documented in this encounter Results * US OB TRANSVAGINAL (12/14/2023 9:53 AM EDT)Anatomical RegionLateralityModality OtherSpecimen (Source)Anatomical Location / LateralityCollection Method / VolumeCollection TimeReceived Time12/14/2023 9:53 AM EDT Narrative 12/14/2023 9:56 AM EDT [facility] ?[address] ? [place] [address] ? Ultrasound Report ? Signed ? Patient: MOSQUEDA,PRISCILLA ? MR#: [id number] ?? : 1990 ?Acct:[id number] ?? Age/Sex: 33 / F ?ADM Date: 12/14/23 ?? Loc: [facility] ? Attending Dr: Scooby Alvarado D.O. ? Ordering Physician: Scooby Alvarado D.O. ?? Date of Service: 12/14/23 ?? Procedure(s): US OB transvaginal ?? Accession Number(s): [id number] ? cc: [facility] ; Scooby Alvarado D.O. ? [facility] ? [address] ? [place] [address] ? Patient Name: ?? PRISCILLA ??MOSQUEDA ? MRN: [facility]:[id number] ? date: 1990 ?Sex: F ?? Assigned Patient Location: [facility] ?? Current Patient Location: [facility] ?? Accession/Order Number: [id number] ?? Exam Date: 12/14/2023 ??09:01 ?Report Date: 12/14/2023 ??09:53 ? At the request of: ?? SCOOBY ??JENNY ? Procedure: ??US OB transvaginal ? [...] is recommended ? Electronically authenticated by: NADIA ??MIAH ?? Date: 12/14/2023 ??09:53 ? Dictated By: ?Nadia Dooley M.D. ? Signed By: ?12/14/23 0956 ? DD/ 0953 ? TD/TT: ? Animal Laboratory Technician: Procedure Note Radiology, Radiologist, MD - 12/14/2023 [place] [address] Ultrasound Report Signed Patient: PRISCILLA MOSQUEDAMR#: [id number] : 1990Acct:[id number] Age/Sex: 33 / FADM Date: 12/14/23 Loc: [facility] Attending Dr: Scooby Alvarado D.O. Ordering Physician: Scooby Alvarado D.O. Date of Service: 12/14/23 Procedure(s): US OB transvaginal Accession Number(s): [id number] cc: [facility] ; Scooby Alvarado D.O. The [address] [address] Patient Name: PRISCILLA MOSQUEDA MRN: [facility]:[id number] date: 1990 Sex: F Assigned Patient Location: [facility] Current Patient Location: [facility] Accession/Order Number: [id number] Exam Date: 12/14/2023 09:01 Report Date: 12/14/2023 [...] Nadia Dooley M.D. Signed By:12/14/2356 DD/ TD/TT: Animal Laboratory Technician: Authorizing ProviderResult TypeResult StatusCorey Jenny DOCLINISYNC IMAGINGFinal Result documented in this encounter Visit Diagnoses Not on filedocumented in this encounter Care Teams Team MemberRelationshipSpecialtyStart DateEnd Date Jihan Dempsey NP [address] [place] [address] PCP - [facility]/documented as of this encounter
--- OUTSIDE RECORDS SUMMARY | 2025-04-28 22:27 | XMS_ITS | Encounter Summary ---
Author Organization [facility] Address [address] [place] [address] Care Team Providers Care Social And Human Services Assistant Name Role Phone Unavailable Primary Care Provider Unavailabl e Encounter Details DateTypeDepartmentCare Team (Latest Contact Info)Cocgqieiwbv27/29/2025linisync Result Encounter [facility] External Department Unsolicited Jem Ambrosio, POWER SUPPLY ENGINEER [address] [place] [address] Social History Tobacco UseTypesPacks/DayYears UsedDateSmoking Tobacco: Never Assessed Estimated Date of UhgmdfbpJnlcxmgaNjg48/11/2025Based on last menstrual period of 07/29/2024 (Exact Date)Sex and Gender InformationValueDate RecordedSex Assigned at GlivzCrcwxa94/03/2024 9:38 AM ESTLegal VnnYlaatd29/15/2023 6:47 PM EDTGender YzdmvjwtCgmcab55/03/2024 9:38 AM ESTSexual PuzgamqymlkKetbhtwy71/03/2024 9:38 AM ESTdocumented as of this encounter Plan of Treatment DateTypeDepartmentCare Team (Latest Contact Info)Woqdjmkgpaq75/22/2025 9:50 AM ESTPostpartum Visit NOMMarlene MARES [address] [place] [address] Scooby Alvarado DO [address] [place], [place] [address] documented as of this encounter Procedures Procedure NamePriorityDate/TimeAssociated DiagnosisCommentsUS OB BPP W NON-YUWWDV1704/22/2025 7:22 AM EDT documented in this encounter Results * US OB BPP W NON-STRESS (04/22/2025 7:22 AM EDT)Anatomical Region LateralityModalityOtherSpecimen (Source)Anatomical Location / Laterality Collection Method / VolumeCollection TimeReceived Time04/22/2025 7:22 AM EDT Narrative 04/22/2025 7:24 AM EDT The [facility] ?[address] ? [place] [address] ? Ultrasound Report ? Signed ? Patient: MOSQUEDA,PRISCILLA ? MR#: [id number] ?? : 1990 ?Acct:[id number] ?? Age/Sex: 34 / F ?ADM Date: 04/21/25 ?? Loc: US ? Attending Dr: Jem Ambrosio ? Ordering Physician: Jem Ambrosio ?? Date of Service: 04/21/25 ?? Procedure(s): US OB BPP w non-stress ?? Accession Number(s): [id number] ? cc: Jem Ambrosio; [facility] ? The [facility] ? [address] ? [place] [address] ? Patient Name: ?? PRISCILLA ??MOSQUEDA ? MRN: [facility]:[id number] ? date: 1990 ?Sex: F ?? Assigned Patient Location: [facility] ?? Current Patient Location: ? Accession/Order Number: [id number] ?? Exam Date: 04/21/2025 ??13:04 ?Report Date: [...] Dictation Location: RADIO-PC-02 ? Electronically authenticated by: [id number] ??Y ?? Date: 04/22/2025 ??07:22 ? Dictated By: ?Sarita Evangelista M.D. ? Signed By: ?10//25 0724 ? DD/ 0722 ? TD/TT: ? Director Of Events: Procedure Note Radiology, Radiologist, - 04/22/2025 [place] [address] Ultrasound Report Signed Patient: PRISCILLA MOSQUEDAMR#: [id number] : 1990Acct:[id number] Age/Sex: 34 / FADM Date: 04/21/25 Loc: US Attending Dr: Jem Ambrosio Ordering Physician: Jem Ambrosio Date of Service: 04/21/25 Procedure(s): US OB BPP w non-stress Accession Number(s): [id number] cc: Jem Ambrosio; [place] [id number] Patient Name: PRISCILLA MOSQUEDA MRN: [facility]:[id number] date: 1990 Sex: F Assigned [facility] Current Patient Location: Accession/Order Number: [id number] Exam Date: 04/21/2025 13:04 Report Date: 04/22/2025 [...] 04/22/2025 7:22 AM Dictation Location: [place] [address] Electronically authenticated by: [id number] Y Date: 7:22 Dictated By: Sarita Evangelista M.D. Signed By:04/22/25723 DD/ 1 TD/TT: Director Of Events: Authorizing ProviderResult TypeResult StatusJem Ambrosio NPCLINISYNC IMAGING Final Result documented in this encounter Visit Diagnoses Not on filedocumented in this encounter
--- OUTSIDE RECORDS SUMMARY | 2025-04-28 22:27 | XMS_ITS | Encounter Summary ---
Author Organization [facility] Address [address] [place] [address] Care Team Providers Care Paddle Dyeing Machine Operator Name Role Phone Unavailable Primary Care Provider Unavailabl e Encounter Details DateTypeDepartmentCare Team (Latest Contact Info)Qbfijrnston83/21/2025Travel Social History Tobacco UseTypesPacks/DayYears UsedDateSmoking Tobacco: Never Assessed Estimated Date of JmwfxnuhImerhkhjKxy26/11/2025Based on last menstrual period of 07/29/2024 (Exact Date)Sex and Gender InformationValueDate RecordedSex Assigned at MvvluUawlpk94/03/2024 9:38 AM ESTLegal OcjGymovd98/15/2023 6:47 PM EDTGender TsvkcnffAulctq15/03/2024 9:38 AM ESTSexual JfkcnbhkcqyAhkrjiuy19/03/2024 9:38 AM ESTdocumented as of this encounter Plan of Treatment DateTypeDepartmentCare Team (Latest Contact Info)Douihbscglc71/22/2025 9:50 AM ESTPostpartum Visit NOMMarlene [place] OBCED [address] [place] [address] Scooby Alvarado DO [address] [place] [address] documented as of this encounter Visit Diagnoses Not on filedocumented in this encounter
--- OUTSIDE RECORDS SUMMARY | 2025-04-28 22:27 | XMS_ITS | Encounter Summary ---
Author Organization [facility] Address [address] [place] [address] Care Team Providers Care Applications Coordinator Name Role Phone Unavailable Primary Care Provider Unavailabl e Encounter Details DateTypeDepartmentCare Team (Latest Contact Info)Hwlpdquesdi73/21/2025amboo flowsheet NOMMyra MARES [address] [place] [address] [place] [address] Scooby Alvarado DO [address] [place] [address] [address] [place], [place] [address] Social History Tobacco UseTypesPacks/DayYears UsedDateSmoking Tobacco: Never Assessed Estimated Date of QhwmhymbYkyujggqHel06/11/2025Based on last menstrual period of 07/29/2024 (Exact Date)Sex and Gender InformationValueDate RecordedSex Assigned at VdhquQtiqjx39/03/2024 9:38 AM ESTLegal XiqFmujqi72/15/2023 6:47 PM EDTGender WwxopzcpKnsqsz82/03/2024 9:38 AM ESTSexual WremeuondmaKrehmksc26/03/2024 9:38 AM ESTdocumented as of this encounter Plan of Treatment DateTypeDepartmentCare Team (Latest Contact Info)Fowueicrita57/22/2025 9:50 AM ESTPostpartum Visit NOMMyra MARES [address] [place] [address] Scooby Alvarado DO [address] [place] [address] [address] [place], [facility] documented as of this encounter Visit Diagnoses Not on filedocumented in this encounter
--- OUTSIDE RECORDS SUMMARY | 2025-04-28 22:27 | XMS_ITS | Clinical Summary ---
Author Organization [facility] Content [employer] [facility] tem Address [id number] [address] [place] [address] Care Team Providers Care Waiver Analyst Name Role Phone No Pcp, No Pcp Primary Care Provider Unavailabl e Allergies No known active allergies Medications MedicationSigDispense QuantityRefillsLast FilledStart DateEnd DateStatus norgestimate-ethinyl estradioL (ORTHO-CYCLEN) 0.25-35 mg-mcg per tablet Indications:Encounter for contraceptive management, unspecified typeTake 1 tablet by mouth daily. 56 tablet Active Active Problems ProblemNoted DateDiagnosed FcekXowgorydirp77/27/2024Estimated Date of LajniotzPignwzgeCwq82/11/2025Based on last menstrual period of 07/29/2024 Encounters DateTypeDepartmentCare JumtJvbbjvgekqa37/26/2025Telephone Maternal- Medicine at [facility] [address] [facility] [place] [phone] Amanda Putnam LD from Last 3 Months Family History Medical HistoryRelationNameCommentsDiabetesFatherDiabetesMotherHypertension MotherRelationNameStatusCommentsFatherMotherAlive Social History Tobacco UseTypesPacks/DayYears UsedDateSmoking Tobacco: NeverSmokeless Tobacco: NeverAlcohol UseStandard Drinks/WeekCommentsNot Currently0 (1 standard drink = 0.6 oz pure alcohol)Housing InstabilityAnswerDate RecordedAre you worried or concerned that in the next two months you may not have stable housing that you own, rent or stay in as a part of a household?No4ChildcareAnswerDate QbwnahapSoytfxcqyVmdjcvt35/12/2019EmploymentAnswerDate RecordedEmploymentUnknown 12/04/2018Hunger ScreeningAnswerDate RecordedWithin the past 12 months we worried whether our food would run out before we got money to buy more.Never True12/20/2023Within the past 12 months the food we bought just didn't last and we didn't have money to get more.Never True4Purpose - LifeAnswerDate RecordedPurpose and direction in prmwJaipvdr57/11/2021Estimated Date of YapjcyspTjcsbropOya68/11/2025Based on last menstrual period of 07/29/2024Sex and Gender InformationValueDate RecordedSex Assigned at BirthNot on fileLegal Sex Eiugoe6001/28/2015 11:48 AM EDTGender IdentityNot on fileSexual OrientationNot on file Last Filed Vital Signs Vital SignReadingTime TakenCommentsBlood Oddirlrn688/6006 9:47 AM EDT Vbpkx217012/21/2023 9:47 AM KNOEkoncurafdm63.7 ??C (98.1 ??F)12/21/2023 9:47 AM EDTRespiratory Xeuz184812/21/2023 9:47 AM EDTOxygen Ogwycmjjin56%12/20/2023 10:15 PM EDTInhaled Oxygen Concentration--Ezgvdj28.7 kg (189 lb)11/24/2024 3:59 PM EDT Hqjmxm482.5 cm (5' 2 )12/20/2023 7:47 PM EDTBody Mass Index34.57012/20/2023 7:47 PM EDT Plan of Treatment Health MaintenanceDue DateLast DoneCommentsDepression Hnvkfeadd16/10/2004Pap Smear2012Tobacco Btvvorlyt63/28//4COVID-19 Vaccine ( season)5008/15/2021, 12/16/2020, 11/16/2020Influenza Vaccine 510/04/2024, 04/25/2023, 04/01/2022, Additional history existsAdult BMI Blddailmq80/02/39085811/24/2024DTaP,Tdap and Td Vaccines (3 - Td or Tdap) /, 2RSV ( or age 60+ yrs) (No Doses Required)Completed Medical Devices Not on file Insurance Advance Directives * Full Code (Latest Code Status on File) Date ActivatedDate InactivatedComments12/20/2023 11:13 PM12/21/2023 1:46 PM Care Teams Team MemberRelationshipSpecialtyStart DateEnd Date No Pcp, [place] [address] PCP - GeneralFamily Medicine12/19/23
--- OUTSIDE RECORDS SUMMARY | 2025-04-28 22:27 | XMS_ITS | Encounter Summary ---
Author Organization [facility] Address [address] [place] [address] Care Team Providers Care Loss Prevention Operations Manager Name Role Phone Unavailable Primary Care Provider Unavailabl e Encounter Details DateTypeDepartmentCare Team (Latest Contact Info)Znkzqmppmql56/28/2025bstract NOMMyra MARES [address] [place] [address] [place] [address] Scooby Alvarado DO [address] [place] [address] [address] [place], [place] [address] Social History Tobacco UseTypesPacks/DayYears UsedDateSmoking Tobacco: Never Assessed Estimated Date of GbopmnlbHifqtryrGlg98/11/2025Based on last menstrual period of 07/29/2024 (Exact Date)Sex and Gender InformationValueDate RecordedSex Assigned at OspdxNdxqgk00/03/2024 9:38 AM ESTLegal WafWnvhrr29/15/2023 6:47 PM EDTGender NjvswzhqVyfbii21/03/2024 9:38 AM ESTSexual AsjtqodhbnpCdwrhegr15/03/2024 9:38 AM ESTdocumented as of this encounter Plan of Treatment DateTypeDepartmentCare Team (Latest Contact Info)Bfefubaavzy09/22/2025 9:50 AM ESTPostpartum Visit NOMMyra MARES [address] [place] [address] Scooby Alvarado DO [address] [place] [address] [place] [address] documented as of this encounter Visit Diagnoses Not on filedocumented in this encounter
--- OUTSIDE RECORDS SUMMARY | 2025-04-28 22:27 | XMS_ITS | Clinical Summary ---
Author Organization [facility] Healthcare Address [address] [place] [address] Care Team Providers Care Spike Driver Name Role Phone Unavailable Primary Care Provider Unavailabl e Allergies No known active allergies Medications MedicationSigDispense QuantityRefillsLast FilledStart DateEnd DateStatus Isdqrbqf-Wcy-Gy-FA ( 1 + IRON PO) Take by mouthActive Alcohol Swabs (Alcohol Prep Pad) 70 % pads Indications:Gestational diabetes mellitus (GDM), antepartum, gestational diabetes method of control unspecified([facility]),Elevated glucose tolerance test Apply 1 Pad topically Daily Use four times daily to check FSBS. 150 each tive Blood Glucose Monitoring Suppl (D-Care Glucometer) w/Device kit Indications:Gestational diabetes mellitus (GDM), antepartum, gestational diabetes method of control unspecified([facility]),Elevated glucose tolerance test1 kit Daily Use four times daily to check FSBS. In the morning prior to breakfast & 1 hour after each meal for a total of 4times daily. 1 kit ctive ProFe 391.3 (180 Fe) MG capsule Take 1 capsule by mouth DailyDiscontinued Active Problems ProblemNoted DateDiagnosed Date28 weeks gestation of ([facility]) 02/16/2025Third trimester ([facility])02/16/2025Estimated Date of TgumczdmRseepxynXdd76/11/2025Based on last menstrual period of 07/29/2024 (Exact Date) Encounters DateTypeDepartmentCare SbgrRfhutllcacl16/29/2025linisync Result Encounter [facility] External Department Unsolicited Hebert KrysKAYY 04/21/2025 2:20 PM EDTRoutine [facility] [address] [place] [phone] Deborah Kwan PA Third trimester ([facility]); 38 weeks gestation of ([facility])04/21/2025bstract [facility] [address] [place] [phone] Scooby Alvarado DO 04/21/2025amboo flowsheet [facility] [address] [place] [address] [phone] Deborah Kwan PA 04/21/20253815Gwvcyc76/24/2025bstract [facility] [address] [place] [address] Deborah Jones LPN 04/16/2025Patient Outreach [facility] [address] [place] [address] Deborah Jones LPN 04/14/2025 11:10 AM EDTRoutine [facility] [address] [place] [address] Scooby Alvarado DO Third trimester ([facility]); 37 weeks gestation of ([facility])04/14/20254914Kmuucl90/21/2025amboo flowsheet [facility] [address] [place] [address] Scooby Alvarado DO 04/07/2025 1:30 PM EDTRoutine [facility] [address] [place] [address] Deborah Kwan PA Third trimester ([facility]); 36 weeks gestation of ([facility])04/07/2025amboo flowsheet [facility] [address] [place] [address] Deborah Kwan PA 03/31/2025linisync Result Encounter [facility] External Department Unsolicited Krys Ambrosio NP 03/24/2025 10:50 AM EDTRoutine [facility] [address] [place] [address] Krys Ambrosio NP 34 weeks gestation of ([facility]); Third trimester ([facility]); Gestational diabetes mellitus (GDM) in third trimester, gestational diabetes method of control unspecified ([facility])03/24/2025amboo flowsheet [facility] [address] [place] [address] Krys Ambrosio NP 03/24/20258690Dcbbht51/26/2025bstract [facility] [address] [place] [address] Scooby Alvarado, DO 03/20/2025bstract [facility] [address] [place] [address] Scooby Alvarado, DO 03/10/2025 1:20 PM EDTRoutine [facility] [address] [place] [address] Deborah Kwan PA 32 weeks gestation of ([facility]); Third trimester ([facility])03/10/20258212Acmoku47/16/2025Bamboo flowsheet [facility] [address] [place] [address] Deborah Kwan PA 02/25/2025 3:00 PM EDTAncillary Procedure [facility] [address] [place] [address] Size of fetus inconsistent with dates in second trimester ([facility])02/25/2025 Nzrxlh5702/16/2025 2:30 PM EDTRoutine [facility] [place] [address] Deborah Kwan PA Size of fetus inconsistent with dates in second trimester ([facility]) (Primary Dx); 28 weeks gestation of ([facility]); Third trimester ([facility])02/16/2025amboo flowsheet [facility] [place] [address] Deborah Kwan PA 02/16/20259569Bjybjv06/22/2025linisync Result Encounter [facility] External Department Unsolicited Scooby Alvarado DO 02/02/2025 2:50 PM EDTRoutine [facility] [facility] [facility] [place] [address] Scooby Alvarado DO Second trimester ([facility]); 26 weeks gestation of ([facility]); Diabetes mellitus hjkmlkejq28/11/2025amboo flowsheet [facility] [address] [place] [address] [place] [address] Scooby Alvarado DO 02/02/20252322Wpyoqt55/04/2025 3:00 PM EDTAncillary Procedure [facility] [address] [place] [address] [place] [address] Encounter for follow-up ultrasound of anatomy ([facility])01/26/2025Travel from Last 3 Months Family History Medical HistoryRelationNameCommentsDiabetesFatherDiabetesMotherHypertension MotherDepressionOtherDiabetesOtherHyperlipidemiaOtherHypertensionOtherRelation NameStatusCommentsFatherMotherOther Social History Tobacco UseTypesPacks/DayYears UsedDateSmoking Tobacco: Never Assessed Estimated Date of CabbppquCbgwwftiCcq32/11/2025Based on last menstrual period of 07/29/2024 (Exact Date)Sex and Gender InformationValueDate RecordedSex Assigned at PibrmKqxdkd08/03/2024 9:38 AM ESTLegal MkiLbumbo95/15/2023 6:47 PM EDTGender PwbvrcpiSxwhwy86/03/2024 9:38 AM ESTSexual BrunernsmtyQxdfpxrg21/03/2024 9:38 AM EST Last Filed Vital Signs Vital SignReadingTime TakenCommentsBlood Dmhavgze799/8210 2:09 PM EDT Pulse--Temperature--Respiratory Rate--Oxygen Saturation--Inhaled Oxygen Concentration--Luebql72.1 kg (200 lb 12 oz)04/21/2025 2:09 PM IJSFpkoic787.6 cm (5' 4 )12/04/2024 10:26 AM EDTBody Mass Index34.46012/04/2024 10:26 AM EDT Plan of Treatment DateTypeDepartmentCare Team (Latest Contact Info)Calbxdpytzq68/22/2025 9:50 AM ESTPostpartum Visit [facility] [address] [place] [phone] Scooby Alvarado, [address] [place] [address] Health MaintenanceDue DateLast DoneCommentsMMR Vaccines (1 of 1 - Standard series)1992DTaP/Tdap/Td Vaccines (1 - Tdap)1998Varicella Vaccines (1 of 2 - 13+ 2-dose series)2004Hepatitis B Vaccines (1 of 3 - 19+ 3-dose series)2010HPV Vaccines (1 - 3-dose SCDM series)2018COVID-19 Vaccine ( season)502/, 12/16/2020, 11/16/2020Influenza Vaccine (#1)510/04/2024, 04/25/2023, 04/01/2022, Additional history existsCervical Cancer Clxignrgz67/12/2030HPV/Ooqkrx1312/04/2029Pap Smear12/04/2029 12/04/2024HIB VaccinesAged OutNo longer eligible based [...] Procedures Procedure NamePriorityDate/TimeAssociated DiagnosisCommentsUS OB BPP W NON-NJOGTS9904/22/2025 7:22 AM EDT POCT URINALYSIS ELPEWWKGIqpyodw43/28/2025 2:14 PM EDT Third trimester ([facility]) POCT URINALYSIS QFWDQENKXtrudsy77/21/2025 11:12 AM EDT 37 weeks gestation of ([facility]) POCT URINALYSIS MXQNOIVEBbxpbeb30/14/2025 1:41 PM EDT Third trimester ([facility]) US OB BPP W NON-ITKOTI0803/31/2025 5:44 PM EDT POCT URINALYSIS KIHORQYKMkdnlxa91/30/2025 11:11 AM EDT Third trimester ([facility]) POCT URINALYSIS RORESLGQZboxzoq66/16/2025 1:32 PM EDT 32 weeks gestation of ([facility]) Third trimester ([facility]) US OB FOLLOW UP TRANSABDOMINAL ULXDEBMVJfwvdez01/03/2025 3:22 PM EDT Size of fetus inconsistent with dates in second trimester ([facility]) ALL CBC WITH AUTO NDOPEiohmeg56/22/2025 7:06 AM EDT POCT URINALYSIS ZUEAIRMOOdmgkks96/11/2025 3:06 PM EDT Second trimester ([facility]) US OB LIMITED 1+ HWGRMJUCalwhxm64/04/2025 3:47 PM EDT Encounter for follow-up ultrasound of anatomy ([facility]) PAP ZWKMQOeagoyb79/12/2025 12:00 AM EDTfrom Last 3 Months or Most Recently Relevant to Health Maintenance Results * US OB BPP W NON-STRESS (04/22/2025 7:22 AM EDT) Only the most recent of2 resultswithin the time period is included. Anatomical RegionLateralityModalityOtherSpecimen (Source)Anatomical Location / LateralityCollection Method / VolumeCollection TimeReceived Time04/22/2025 7:22 AM EDT Narrative 04/22/2025 7:24 AM EDT [facility] ?[address] ? [place] [address] ? Ultrasound Report ? Signed ? Patient: PRISCILLA MOSQUEDA ? MR#: [id number] ?? : 1990 ?Acct:[id number] ?? Age/Sex: 34 / F ?ADM Date: 04/21/25 ?? Loc: US ? Attending Dr: Krys Ambrosio ? Ordering Physician: Krys Ambrosio ?? Date of Service: 04/21/25 ?? Procedure(s): US OB BPP w non-stress ?? Accession Number(s): [id number] ? cc: Krys Ambrosio; [facility] ? [facility] ? [address] ? [place] [address] ? Patient Name: ?? PRISCILLA ??MOSQUEDA ? MRN: [id number] ? date: 1990 ?Sex: F ?? Assigned Patient Location: [facility] ?? Current Patient Location: ? Accession/Order Number: [id number] ?? Exam Date: 04/21/2025 ??13:04 ?Report Date: [...] M.D. ??04/22/2025 7:22 AM ? Dictation Location: [facility]02 ? Electronically authenticated by: [id number] ??Y ?? Date: 04/22/2025 ??07:22 ? Dictated By: ?aSrita Evangelista M.D. ? Signed By: ?04/22/25723 ? DD/ 1 ? TD/TT: ? Patient Case Manager: Procedure Note Radiology, Radiologist, MD - 04/22/2025 The [place] [id number] Ultrasound Report Signed Patient: PRISCILLA MOSQUEDAMR#: [id number] : 1990Acct:[id number] Age/Sex: 34 / FADM Date: 04/21/25 Loc: US Attending Dr: Krys Ambrosio Ordering Physician: Krys Ambrosio Date of Service: 04/21/25 Procedure(s): US OB BPP w non-stress Accession Number(s): [id number] cc: Krys Ambrosio; [facility] The [address] [address] Patient Name: PRISCILLA MOSQUEDA MRN: [id number] date: 1990 Sex: F Assigned Patient Location: [facility] Current Patient Location: Accession/Order Number: [id number] Exam Date: 04/21/2025 13:04 Report Date: 04/22/2025 [...] Evangelista M.D. 04/22/2025 7:22 AM Dictation Location: [place] [address] Electronically authenticated by: [id number] Y Date: 7:22 Dictated By: Sarita Evangelista M.D. Signed By:04/22/25723 DD/ 1 TD/TT: Patient Case Manager: Authorizing ProviderResult TypeResult StatusKrys Ambrosio NPCLINISYNC IMAGING [...] Location / LateralityCollection Method / VolumeCollection TimeReceived NbjuUmmfb58/28/2025 2:14 PM EDT Narrative Authorizing ProviderResult TypeResult StatusAmy [facility] TEST ENTER/EDIT ORDERABLESFinal Result * US OB [...] Logan Caal MD Authorizing ProviderResult TypeResult StatusAmy [facility] US PROCEDURES Final Result * (ABNORMAL) ALL CBC WITH AUTO DIFF (02/13/2025 7:06 AM EDT)ComponentValueRef RangeTest MethodAnalysis TimePerformed AtPathologist SignatureTBH WBC9.74.0 - 11.0 10 3/uLTBHTBH RBC4.18(L)4.20 - 5.40 10 6/uLTBHTBH HGB10.6(L)12.0 - 16.0 g/dLTBHTBH HCT33.1(L)36.0 - 48.0 %TBHTBH MCV79.2(L)81.0 - 99.0 fLTBHTBH MCH 25.4(L)26.7 - 34.0 pgTBHTBH MCHC32.029.9 - 35.2 g/dLTBHTBH RDW15.011.0 - 15.0 %TBHTBH YPS191429 - 450 10 3/uLTBHTBH MPV10.09.5 - 13.5 [...] DOCLINISYNCFinal Result Performing OrganizationAddressCity/State/ZIP CodePhone Number [facility] * US OB limited 1+ fetuses (01/26/2025 [...]
[2025-04-28] MEDS: 0.9 % SODIUM CHLORIDE 1,000 ML 125 ML IV (23:31)
[2025-04-28 23:37] VITALS: BP 122/71; PULSE 70
[2025-04-28] MEDS: OXYTOCIN/0.9 % SODIUM CHLORIDE 10 UNITS/500 ML PLAST..BAG 6 UNIT IV (23:37)
[2025-04-28 23:53] LABS: Hematocrit 37.1 % (36.0-48.0); Hemoglobin 11.5 g/dL (12.0-16.0); Mean Corpuscular HGB Conc 31.0 g/dL (29.9-35.2); Mean Corpuscular Hemoglobin 23.5 pg (26.7-34.0); Mean Corpuscular Volume 75.9 fL (81.0-99.0); Platelet Count 321 10^3/uL (150-450); Red Blood Count 4.89 10^6/uL (4.20-5.40); White Blood Count 10.3 10^3/uL (4.0-11.0)
[2025-04-29] VITALS (29 sets, daily range): BP systolic 109–140; BP diastolic 56–85; PULSE 57–75; TEMP 36.6–36.8
[2025-04-29 00:15] LABS: Cannabinoid Screen Urine NEGATIVE (NEGATIVE); Methamphetamines Screen Urine NEGATIVE (NEGATIVE); Tricyclic Antidepressant Urine NEGATIVE (NEGATIVE)
[2025-04-29] MEDS: 0.9 % SODIUM CHLORIDE 1,000 ML 125 ML IV (07:14)
[2025-04-29] MEDS: OXYTOCIN/0.9 % SODIUM CHLORIDE 20 UNITS/1,000 ML PLAST..BAG 999 UNIT IV (07:28)
[2025-04-29] MEDS: LIDOCAINE HCL 1% 200 MG/20 ML MDV INJ (07:38)
--- NOTE | 2025-04-29 07:44 | PM.OBPRCVD ---
Procedure Intrapartal events: None Induction method: per pitocin protocol Delivery augmentation: rupture of membranes and pitocin Delivery monitor: external FHT and external uterine Route of delivery: Episiotomy Description: none L&D Laceration Description: perineal - 1st degree Delivery repair: Vicryl Estimated blood loss (mL): 300 Anesthesia type: None Disposition: floor Infant Delivery date: 04/29/25 Gender: male presentation: vertex Placental delivery description: Spontaneous cord description: 3 Vessels
[2025-04-29] MEDS: ACETAMINOPHEN 325 MG TABLET 650 MG PO (08:11)
[2025-04-29] MEDS: GLYCERIN/WITCH HAZEL PADS 1 PAD TOPICAL (08:12)
[2025-04-29] MEDS: BENZOCAINE/MENTHOL 85 GRAM SPRAY BOTTLE 1 APPLIC TOPICAL (08:12)
[2025-04-29] MEDS: IBUPROFEN 600 MG TABLET PO ×2 (15:37→21:22)
[2025-04-30] MEDS: ACETAMINOPHEN 325 MG TABLET 650 MG PO (02:11)
[2025-04-30] MEDS: IBUPROFEN 600 MG TABLET PO (04:23)
[2025-04-30 06:18] LABS: Hematocrit 30.9 % (36.0-48.0); Hemoglobin 9.4 g/dL (12.0-16.0); Immature Granulocytes Abs Auto 0.04 10^3/uL (0.00-0.03); Immature Granulocytes Pct Auto 0.4 % (0.0-0.5); Lymphocytes Absolute Auto 3.7 10^3/uL (1.2-3.8); Mean Corpuscular HGB Conc 30.4 g/dL (29.9-35.2); Mean Corpuscular Hemoglobin 23.4 pg (26.7-34.0); Mean Corpuscular Volume 76.9 fL (81.0-99.0); Platelet Count 237 10^3/uL (150-450); Red Blood Count 4.02 10^6/uL (4.20-5.40); White Blood Count 10.3 10^3/uL (4.0-11.0)
[2025-04-30 07:55] VITALS: BP 108/65; PULSE 55; TEMP 36.5
--- NOTE | 2025-04-30 08:03 | P.OBPN_ITS ---
OB - PN: Subj Subjective Patient comments: no complaints and pain well controlled [place] status: doing well Exam Constitutional Vital Signs, click to edit/add: Last Vital Signs Temp 98.2 F 04/29/25 22:50 Pulse 55 L 04/30/25 07:55 Resp 16 04/29/25 22:50 BP 108/65 04/30/25 07:55 O2 Del Method Room Air 04/29/25 22:50 Documenting provider has reviewed patient's vital signs: yes Common normals: no apparent distress Respiratory Common normals: normal respiratory effort and clear to auscultation bilaterally Cardio Common normals: regular rate and regular rhythm GI Common normals: Normal to inspection, nondistended, normoactive bowel sounds present Extremity Common normals: no clubbing, cyanosis or edema and no calf tenderness Results Labs Labs: Short CBC 04/30/25 Range/Units 06:06 WBC 10.3 (4.0-11.0) 10^3/uL Hgb 9.4 L (12.0-16.0) g/dL Hct 30.9 L (36.0-48.0) % Plt Count 237 (150-450) 10^3/uL OB - PN: A/P Plan - Vaginal Delivery day: 1 Plan: routine care, discharge home and follow up 6 weeks Time Spent with Patient Time: Total time spent is greater than 50% in coordination of care (as documented) at patient's floor/unit and/or counseling patient: Total time spent with greater than 50% in coordination of care (as documented) at patient's floor/unit and/or counseling patient: less than 15 minutes
== END 2025-04-30 15:05 | disposition home or self-care (01) | DRG 560 ==
PROVIDERS: Admitting Provider Obstetrics & Gynecology; Visit Provider Obstetrics & Gynecology
DX: O24.420 Gestational diabetes mellitus in childbirth, diet controlled (principal); O70.0 First degree perineal laceration during delivery; Z3A.39 39 weeks gestation of pregnancy; Z37.0 Single live birth
CPT/HCPCS: 36415; 59050; 59410; 80307; 82948; 85025; 85027; 86850; 86900; 86901